=== PATIENT | male | born 1965 | race Caucasian/White ===

== ENCOUNTER 2020-01-13 10:32 | Emergency (ER) | payer OTHER, SELFPAY ==
--- NOTE | ~2020-01-13 | XR_ITS ---
EXAMINATION: XR knee RT 3V DATE: 01/13/2020 11:15 INDICATION: Right knee pain. TECHNIQUE: 3 views of right knee were obtained. COMPARISON: None. FINDINGS: Bone alignment is normal. No fracture. There is mild tricompartmental osteoarthritis. There is a small knee joint effusion. IMPRESSION: 1. Mild right knee osteoarthritis. 2. Small right knee joint effusion. Reviewed, dictated and finalized at location E.
[2020-01-13 10:46] VITALS: BP 131/67; PULSE 67; RESP 18; TEMP 36.7; O2SAT 99
--- NOTE | 2020-01-13 11:00 | ED.GENADULT ---
HPI - General Adult General Chief complaint: Extremity Injury, Lower Stated complaint: right knee pain Time Seen by Provider: 01/13/20 11:00 Source: patient Mode of arrival: ambulatory Limitations: no limitations History of Present Illness HPI narrative: 54-year-old male patient presents to the [facility] with complaints of right knee and calf pain. Patient states about 2 weeks ago he has been started to lay some laminate trice and is been on his knees a lot. Patient states he thought that he might have just bruised his knee a little bit. Patient states he has taken ibuprofen every once in a while. Patient states he has tried putting some ice on it. Patient states that he feels like the pain is getting worse especially in his calf when he walks. Patient states he has noticed some swelling. Patient does have a history of A. fib, high blood pressure and diabetes. Related Data Home Medications Medication Instructions Recorded Confirmed B Complex 01/13/20 Fish Oil 01/13/20 Joint Health 01/13/20 aspirin 01/13/20 diltiazem HCl PO 01/13/20 eszopiclone mg 01/13/20 [id number] INHALATION 01/13/20 [Trelegy Ellipta] magnesium 01/13/20 melatonin 01/13/20 multivitamin 01/13/20 Allergies Allergy/AdvReac Type Severity Reaction Status Date / Time No Known Allergies Allergy Verified 07/06/17 09:40 Review of Systems Review of Systems: Narrative: CONSTITUTIONAL: Denies fever, chills, or sweats. EYES: Denies visual changes, redness, or discharge. ENT: Denies rhinorrhea, congestion, sore throat, or otalgia. CARDIOVASCULAR: Denies chest pain, palpitations, or edema. RESPIRATORY: Denies cough or dyspnea. GASTROINTESTINAL: Denies abdominal pain, nausea, vomiting, or diarrhea. GENITOURINARY: Denies dysuria or hematuria. SKIN: Denies rash or itching. MUSCULOSKELETAL: Denies back pain, joint pain, or myalgia. Positive right knee pain and calf pain x2 weeks NEUROLOGIC: Denies headache, numbness, or weakness. PSYCHIATRIC: Denies anxiety or depression. COUNTS INCLUDE 234 BEDS AT THE [facility] Past Medical History Medical History Alcohol abuse Benign essential HTN Chronic insomnia Major depressive disorder, recurrent severe without psychotic features Obstructive sleep apnea Prediabetes Restless legs syndrome Tobacco dependence Family History Family History Mother Family history of type 2 diabetes mellitus Patient's mother is Sibling Hypertension Other Cerebrovascular accident Family history of malignant neoplasm Social History Social History Social History: Smoking status: Light tobacco smoker Tobacco type: cigarettes Smoking end date: 08/03/14 Alcohol intake: never Substance use: former Substance use type: former substance user Gender identity (if verbalized by the patient): Male Comments At the time of my signature I agree with nursing past medical history, surgical, social, and family history. There is no relevant family history pertinent to the presenting complaint. Exam Narrative: Exam Narrative: GENERAL: Well-appearing, well-nourished, and in no acute distress. HEAD: Normocephalic, atraumatic. EYES: PERRLA and EOMI. ENT: Nares clear, no rhinorrhea or epistaxis. Mucous membranes moist. NECK: Supple. No lymphadenopathy CHEST: Clear to auscultation. No respiratory distress. HEART: Regular rate and rhythm. No murmur heard. Normal peripheral pulses. ABDOMEN: Soft, nontender, nondistended, normal active bowel sounds. EXTREMITIES: Patient is able to bear weight and ambulate has intermittent pain to the right knee and calf. No surface trauma, STS, or obvious effusion. There is some swelling noted to the right calf area and very slight swelling to the right knee noted as compared to the left. There is a
== END 2020-01-13 12:17 | disposition short-term general hospital (02) ==
PROVIDERS: Emergency Provider Nurse Practitioner Family; PCP Family Medicine
DX: M25.461 Effusion, right knee (principal); M79.661 Pain in right lower leg; I10 Essential (primary) hypertension; F17.210 Nicotine dependence, cigarettes, uncomplicated
CPT/HCPCS: 73562; 99213; G0463

== ENCOUNTER 2020-01-13 12:45 | Emergency (ER) | payer OTHER, SELFPAY ==
--- NOTE | ~2020-01-13 | US_ITS ---
EXAMINATION: US venous doppler LE RT DATE: 01/13/2020 13:31 INDICATION: Right calf pain and swelling. TECHNIQUE: Grayscale ultrasound images without and with compression and Doppler ultrasound images of the right lower extremity veins were obtained. COMPARISON: None. FINDINGS: The visualized portions of right common femoral vein, profunda (deep) femoral vein, femoral vein, pop liteal vein, peroneal veins, posterior tibial veins, and greater saphenous vein outflow are patent. IMPRESSION: 1. No deep venous thrombosis. Reviewed, dictated and finalized at location E.
[2020-01-13 12:51] VITALS: BP 153/70; PULSE 81; RESP 20; TEMP 37.3; O2SAT 98
--- NOTE | 2020-01-13 14:25 | ED.EXTPRO ---
HPI - Extremity Problem General Chief complaint: Extremity Problem,Nontraumatic Stated complaint: rt calf pain/sent from urgent care Time Seen by Provider: 01/13/20 13:07 Source: patient Mode of arrival: ambulatory Limitations: no limitations History of Present Illness HPI Narrative: This patient is a 54 year old male who presents for evaluation of right calf pain. Patient states 1 week ago he felt a twing in his right knee and then he developed tenderness to right calf. He has been applying alternating ICe and heat and he states he continues to have the pain. He denies history of DVT. He denies swelling, left swelling weakness, numbness or tingling. He was sent from Urgent care for evaluation to rule out DVT. Related Data Home Medications Medication Instructions Recorded Confirmed B Complex 01/13/20 Fish Oil 01/13/20 Joint Health 01/13/20 aspirin 01/13/20 diltiazem HCl PO 01/13/20 eszopiclone mg 01/13/20 [id number] INHALATION 01/13/20 [Trelegy Ellipta] magnesium 01/13/20 melatonin 01/13/20 multivitamin 01/13/20 Allergies Allergy/AdvReac Type Severity Reaction Status Date / Time No Known Allergies Allergy Verified 01/13/20 13:04 Review of Systems Review of Systems: All systems reviewed & are unremarkable except as noted in HPI and below Constitutional: Constitutional: Denies chills and Denies fever(s) Cardiovascular: Cardiovascular: Denies chest pain and Denies rapid heart rate Respiratory: Respiratory: Denies dyspnea Neurologic: Reports focal weakness, Reports numbness and Reports weakness [facility] Social History Social History Social History: Smoking status: Light tobacco smoker Tobacco type: cigarettes Smoking end date: 08/03/14 Alcohol intake: never Substance use: former Substance use type: former substance user Gender identity (if verbalized by the patient): Male Exam Const: General: no acute distress and alert Orientation/consciousness: patient oriented x3 Neck: Neck: no lymphadenopathy Resp: Effort & Inspection: normal respiratory effort Skin: General skin exam: normal color Rashes: no rashes Neuro: General: patient oriented x3 and moves all extremities Extrem: General: no pedal edema Other: right calf tenderness, no swelling, no erythema, able to ambulate with steady gait. FROM to joints of lower extremity Course Vital Signs Vital signs: Vital Signs Temperature 99.1 F 01/13/20 12:51 Pulse Rate 81 01/13/20 12:51 Respiratory Rate 20 01/13/20 12:51 Blood Pressure 153/70 H 01/13/20 12:51 Pulse Oximetry 98 01/13/20 12:51 Temperature 99.1 F 01/13/20 12:51 Pulse Rate 62 01/13/20 15:03 Respiratory Rate 18 01/13/20 15:03 Blood Pressure 114/68 01/13/20 15:03 Pulse Oximetry 98 01/13/20 15:03 MDM - Extremity (Nontraumatic) Imaging Data Radiologist's impression: ITS Impressions Venous Doppler Study 01/13/20 13:53 IMPRESSION: 1. No deep venous thrombosis. Discharge Plan Discharge Clinical Impression: Pain of right calf Patient Disposition: Home, Self-Care Condition: Stable Instructions: Antibiotic Form, Leg Pain (ED) Additional Instructions: Take NSAIDs like aleve for your pain. Follow up with your primary care physician. Prescriptions: No Action eszopiclone 2 mg tablet RF: 0 Trelegy Ellipta 100-62.5-25 mcg blister with device INHALATION RF: 0 B Complex RF: 0 diltiazem HCl 240 mg capsule,extended release 24hr PO RF: 0 Joint Health RF: 0 aspirin RF: 0 magnesium RF: 0 multivitamin RF: 0 Fish Oil RF: 0 melatonin RF: 0 ipratropium bromide 42 mcg (0.06 %) spray,non-aerosol 2 spray NASAL TID Qty: 15 RF: 5 metformin 500 mg tablet extended release 24 hr
--- NOTE | 2020-01-13 14:52 | PC.NURSE ---
pacing around room, NAD
[2020-01-13 15:03] VITALS: BP 114/68; PULSE 62; RESP 18; O2SAT 98
== END 2020-01-13 15:06 | disposition home or self-care (01) ==
PROVIDERS: Emergency Provider General Practice; PCP Family Medicine
DX: M79.661 Pain in right lower leg (principal); F17.210 Nicotine dependence, cigarettes, uncomplicated
CPT/HCPCS: 93971; 99284

== ENCOUNTER 2020-07-14 08:59 | Outpatient (CLI) | payer OTHER, SELFPAY ==
[2020-07-14 09:14] LABS: Basophils Percent Auto 0.5 % (0.2-1.2); Eosinophils Absolute Auto 0.1 K/mm3 (0-0.3); Eosinophils Percent Auto 1.2 % (0-4.4); Hemoglobin 15.9 g/dL (14.0-18.0); Immature Granulocyte Absolute 0.08 K/mm3 (0.00-0.031); Immature Platelet Fraction Pct 3.7 % (0.9-11.2); Lymphocytes Absolute Auto 2.33 K/mm3 (0.9-3.2); Lymphocytes Percent Auto 28.3 % (18.3-44.2); Mean Corpuscular HGB Conc 35.3 g/dl (32-36); Mean Corpuscular Hemoglobin 32.9 pg (26-34); Mean Platelet Volume 10.2 fl (7.4-10.4); Monocytes Absolute Auto 0.5 K/mm3 (0.1-0.6); Monocytes Percent Auto 6.4 % (2.6-8.5); Neutrophils Absolute Auto 5.1 K/mm3 (1.3-6.7); Neutrophils Percent Auto 62.6 % (45.5-73.1); Platelet Count Result 132 k/mm3 (150-375); Red Blood Count 4.84 M/mm3 (4.6-6.20); Red Cell Distribution Width 13.3 % (11.5-14.5); White Blood Count 8.2 K/mm3 (4.5-10.0)
[2020-07-14 09:25] LABS: Hemoglobin A1C 5.1 % (<5.7)
[2020-07-14 09:27] LABS: Alanine Aminotransferase 157 U/L (4-50); Albumin Level 4.3 g/dL (3.5-5.1); Alkaline Phosphatase 71 U/L (38-126); Anion Gap 10 mmol/L (8-16); Aspartate Amino Transferase 114 U/L (17-59); Bilirubin,Total 1.2 mg/dL (0.2-1.3); Blood Urea Nitrogen 12 mg/dL (9-20); Carbon Dioxide 24 mmol/L (22-30); Chloride 105 mmol/L (98-107); Cholesterol 252 mg/dL (0-200); Estimated Glomerular Filt Rate > 60; Glucose 153 mg/dL (75-110); HDL Direct 55 mg/dL; Potassium 3.8 mmol/L (3.4-5.0); Sodium 139 mmol/L (137-145); Triglycerides 300 mg/dL (<150); Uric Acid 8.4 mg/dL (3.5-8.5)
[2020-07-14 09:38] LABS: LDL Cholesterol Direct 164 mg/dL
== END 2020-07-14 09:00 | disposition home or self-care (01) ==
PROVIDERS: PCP Family Medicine; Visit Provider Physician Assistant
DX: R73.03 Prediabetes (principal); Z13.220 Encounter for screening for lipoid disorders
CPT/HCPCS: 36415; 80053; 80061; 83036; 84550; 85025; 85055

== ENCOUNTER 2020-08-01 10:05 | Emergency (ER) | payer OTHER, SELFPAY ==
--- NOTE | ~2020-08-01 | XR_ITS ---
EXAMINATION: XR foot RT min 3V DATE: 08/01/2020 10:33 INDICATION: Posttraumatic pain at the lateral right forefoot TECHNIQUE: Dorsoplantar, two oblique and lateral views of the right foot were obtained. COMPARISON: None. FINDINGS: Alignment is normal. No fracture. Minimal to mild polyarticular osteoarthritis at the first metatarso phalangeal and multiple interphalangeal joints. Soft tissues are unremarkable. IMPRESSION: 1. No acute osseous abnormality. Reviewed, dictated and finalized at location A. 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
[2020-08-01 10:16] VITALS: BP 154/90; PULSE 91; RESP 20; TEMP 37; O2SAT 100
--- NOTE | 2020-08-01 10:24 | ED.LOWEXIN ---
HPI - Extremity Injury (Lower) General Chief Complaint: Extremity Injury, Lower Stated Complaint: R/foot pain Time Seen by Provider: 08/01/20 10:21 Source: patient and RN notes reviewed Mode of arrival: ambulatory Limitations: no limitations History of Present Illness HPI Narrative: Patient presents today complaining of an injury to his right foot. Reports that he rolled his foot twice yesterday, both while walking down separate sets of stairs. He has been ambulatory since the injury. Currently rates his pain 5/10 and has been taking Tylenol and Aleve with mild relief. Denies numbness or tingling in the leg or foot. Denies ankle pain. MD complaint: foot injury Related Data Home Medications Medication Instructions Recorded Confirmed aspirin 01/13/20 07/19/20 bupropion HCl 300 mg 24 hr tablet, 300 mg PO QAM 07/19/20 07/19/20 extended release eszopiclone 3 mg tablet 3 mg PO ONCE 07/19/20 07/19/20 metoprolol tartrate 50 mg PO DAILY 08/01/20 08/01/20 Allergies Allergy/AdvReac Type Severity Reaction Status Date / Time No Known Allergies Allergy Verified 08/01/20 10:22 Review of Systems Review of Systems: Narrative: CONSTITUTIONAL: Denies body aches, fever, chills, or sweats. EYES: Denies visual changes, redness, or discharge. ENT: Denies rhinorrhea, congestion, sore throat, or otalgia. CARDIOVASCULAR: Denies chest pain, palpitations, or edema. RESPIRATORY: Denies cough or dyspnea. GASTROINTESTINAL: Denies abdominal pain, nausea, vomiting, or diarrhea. GENITOURINARY: Denies dysuria or hematuria. SKIN: Denies rash, itching, or wounds. MUSCULOSKELETAL: Denies back pain, or myalgia. + Right foot injury NEUROLOGIC: Denies headache, numbness, tingling, or weakness. PSYCH: Denies depression or anxiety. [facility] Past Medical History Medical History (Updated 08/01/20 @ 10:44 by Brittney Cruz, NIKOS, ) Alcohol abuse Benign essential HTN Bipolar disorder with current episode depressed Chronic insomnia Major depressive disorder, recurrent severe without psychotic features Obstructive sleep apnea Prediabetes Restless legs syndrome Tobacco dependence Family History Family History Mother Family history of type 2 diabetes mellitus Patient's mother is Sibling Hypertension Other Cerebrovascular accident Family history of malignant neoplasm Social History Social History (Updated 07/19/20 @ 16:33 by Coby Navarro [facility]) Social History: Smoking packs per day: 0.25 Smoking cigarettes per day: 5.0 Smoking status: Light tobacco smoker Tobacco type: cigarettes Second hand tobacco smoke exposure: Yes Smoking end date: 08/03/14 Alcohol intake: never Substance use: former Substance use type: former substance user Gender identity (if verbalized by the patient): Male Comments At time of signature, I have reviewed and agree with nursing past medical, surgical, social and family history unless otherwise noted. Please see nursing chart for further information. There is no relevant family history pertinent to the presenting complaint Exam Narrative: Exam Narrative: GENERAL: Well-appearing, well-nourished, and in no acute distress. HEAD: Normocephalic, atraumatic. EYES: EOMI. No redness or drainage. Conjunctivae normal. ENT: Mucous membranes pink and moist. NECK: Normal AROM. CHEST: No respiratory distress. EXTREMITIES: Right foot: Tenderness and mild ecchymosis to the proximal fourth and fifth metatarsals with mild soft tissue swelling and tenderness to palpation. No other tenderness or swelling to the remainder of the foot. No tenderness to the ankle. Distal sensation intact. Capillary refill normal. Pedal pulse normal. Full range of motion of all toes. Full range of motion of the ankle with increased pain to the affected area with range of motion. All other extremities grossly normal. SKIN:
== END 2020-08-01 10:48 | disposition home or self-care (01) ==
PROVIDERS: Emergency Provider Nurse Practitioner; PCP Family Medicine
DX: S93.601A Unspecified sprain of right foot, initial encounter (principal); X50.9XXA Other and unspecified overexertion or strenuous movements or postures, initial encounter; F17.210 Nicotine dependence, cigarettes, uncomplicated; I10 Essential (primary) hypertension; F33.9 Major depressive disorder, recurrent, unspecified; G47.33 Obstructive sleep apnea (adult) (pediatric); G25.81 Restless legs syndrome
CPT/HCPCS: 73630; 99213; G0463

== ENCOUNTER 2020-11-12 21:51 | Emergency (ER) | payer OTHER, SELFPAY ==
--- NOTE | ~2020-11-12 | CT_ITS ---
EXAMINATION: CT brain wo con DATE: 11/12/2020 22:43 INDICATION: Left-sided numbness and tingling TECHNIQUE: Computed tomography (CT) of the head was performed without intravenous contrast. The mA wa s adjusted according to patient size. Iterative reconstruction technique was employed. Exam dose: 60 5.33 mGy-cm total exam DLP. COMPARISON: None FINDINGS: No intracranial mass lesion or hemorrhage or cerebrovascular accident. No midline shift or mass effect effect. Ventricular size is within normal range. There are bilateral carotid siphon internal carotid artery calcifications. No subdural or epidural hematoma. Included paranasal sinuses and mastoid air cells are normally developed and aerated. No fracture or bone destruction of the cranial vault. IMPRESSION: Cerebral atherosclerosis No acute intracranial finding; CT is not sensitive for detection of hyperacute ischemic cerebrovascul ar accident. Reviewed, dictated and finalized at Location A. Reviewed, dictated and finalized at location A. IMPRESSION: Cerebral atherosclerosis No acute intracranial finding; CT is not sensitive for detection of hyperacute ischemic cerebrovascular accident.
--- NOTE | ~2020-11-12 | XR_ITS ---
XR chest 1V DATE: 11/12/2020 22:47 INDICATION: Dizziness for one to 2 days. Left-sided numbness. History of hypertension. Former smoker. TECHNIQUE: PA view COMPARISON: 05/24/2019 PA and lateral chest FINDINGS: Normal heart size. No hilar or mediastinal enlargement. No pulmonary infiltrate or consolid ation, pleural effusion or pulmonary vascular congestion or pneumothorax. Included skeletal structures are unremarkable. IMPRESSION: No active cardiopulmonary disease Reviewed, dictated and finalized at location A.
[2020-11-12 21:53] VITALS: BP 146/90; PULSE 104; RESP 16; TEMP 36.2; O2SAT 98
--- NOTE | 2020-11-12 21:56 | ECG_ITS ---
Measurements Intervals [place] Rate: 111 P: 46 HI: 162 QRS: 21 QRSD: 107 T: 8 QT: 348 QTc: 474 Interpretive Statements SINUS TACHYCARDIA BORDERLINE R WAVE PROGRESSION, ANTERIOR LEADS BORDERLINE ST-T WAVE ABNORMALITY- INFERIOR LEADS ABNORMAL ECG Electronically Signed On 11-13-2020 8:03:28 CDT by Gilbert Hurley D.O.
[2020-11-12 22:19] LABS: Basophils Absolute Auto 0.1 K/mm3 (0.0-0.1); Basophils Percent Auto 0.7 % (0.2-1.2); Eosinophils Absolute Auto 0.2 K/mm3 (0-0.3); Eosinophils Percent Auto 1.9 % (0-4.4); Hematocrit 44.9 % (42.0-52.0); Hemoglobin 16.2 g/dL (14.0-18.0); Immature Granulocyte Absolute 0.13 K/mm3 (0.00-0.031); Immature Granulocyte Percent A 1.2 % (0-0.5); Lymphocytes Percent Auto 43.5 % (18.3-44.2); Mean Corpuscular HGB Conc 36.1 g/dl (32-36); Mean Corpuscular Hemoglobin 32.5 pg (26-34); Mean Corpuscular Volume 90.2 fl (80-100); Mean Platelet Volume 10.4 fl (7.4-10.4); Monocytes Absolute Auto 0.6 K/mm3 (0.1-0.6); Monocytes Percent Auto 5.1 % (2.6-8.5); Neutrophils Absolute Auto 5.3 K/mm3 (1.3-6.7); Neutrophils Percent Auto 47.6 % (45.5-73.1); Platelet Count Result 150 k/mm3 (150-375); Red Blood Count 4.98 M/mm3 (4.6-6.20); Red Cell Distribution Width 12.7 % (11.5-14.5)
[2020-11-12 22:28] LABS: INR 0.9; Partial Thromboplastin Time 24.4 SECONDS (22.3-36.8); Prothrombin Time 12.4 Seconds (11.1-14.7)
[2020-11-12 22:31] LABS: Anion Gap 9 mmol/L (8-16); Blood Urea Nitrogen 11 mg/dL (9-20); Calcium 9.3 mg/dL (8.4-10.2); Carbon Dioxide 24 mmol/L (22-30); Chloride 113 mmol/L (98-107); Estimated CRCL calculation 104 ml/min; Estimated Glomerular Filt Rate > 60; Glucose 123 mg/dL (75-110); Potassium 3.9 mmol/L (3.4-5.0); Sodium 146 mmol/L (137-145)
[2020-11-12 22:43] LABS: Troponin I < 0.012 ng/mL (0.000-0.034)
--- NOTE | 2020-11-12 23:14 | ED.GENADULT ---
HPI - General Adult General Chief complaint: Neuro Symptoms/Deficit Stated complaint: tingling L arm and leg Time Seen by Provider: 11/12/20 22:50 Source: patient History of Present Illness HPI narrative: Patient is a 55 y/o male complaining of left sided weakness, tingling and cramping on left side for last 4-5 days. There is no alleviating or exacerbating factor. He is able to move all 4 extremities and ambulate. He states that he has been diagnosed with restless leg syndrome in the past. Related Data Home Medications Medication Instructions Recorded Confirmed aspirin 81 mg PO DAILY 01/13/20 09/23/20 bupropion HCl 300 mg 24 hr tablet, 450 mg PO QAM 07/19/20 09/23/20 extended release metoprolol tartrate 50 mg PO DAILY 08/01/20 09/23/20 Allergies Allergy/AdvReac Type Severity Reaction Status Date / Time No Known Allergies Allergy Verified 09/21/20 14:03 Review of Systems Constitutional: Constitutional: Denies chills, Denies fever(s), Denies headache(s) and Denies weakness Eyes: Eyes: Denies blurry vision ENT: Denies headache(s) and Denies neck pain Cardiovascular: Cardiovascular: Denies chest pain and Denies dyspnea Respiratory: Respiratory: Denies cough and Denies dyspnea Gastrointestinal: Gastrointestinal: Denies abdominal pain, Denies diarrhea, Denies nausea and Denies vomiting Genitourinary: Genitourinary: Denies hematuria and Denies dysuria Musculoskeletal: Musculoskeletal: Denies back pain and Denies neck pain Neurologic: Denies headache(s), Reports paresthesias and Reports weakness [facility] Past Medical History Medical History Alcohol abuse Benign essential HTN Bipolar disorder with current episode depressed Chronic insomnia Major depressive disorder, recurrent severe without psychotic features Obstructive sleep apnea Prediabetes Restless legs syndrome Tobacco dependence Family History Family History Mother Family history of type 2 diabetes mellitus Patient's mother is Sibling Hypertension Other Cerebrovascular accident Family history of malignant neoplasm Social History Social History Social History: Smoking packs per day: 0.25 Smoking cigarettes per day: 5.0 Smoking status: Former smoker Tobacco type: cigarettes Second hand tobacco smoke exposure: Yes Smoking end date: 08/03/14 Alcohol intake: never Substance use: former Substance use type: former substance user Gender identity (if verbalized by the patient): Male Exam Const: General: no acute distress and well developed Orientation/consciousness: oriented to person, oriented to place, oriented to time and patient oriented x3 HENMT: Head: normocephalic Ears: external ears normal General nose exam: Normal external nose present Eyes: General: appearance normal, both eyes and all related structures Conjunctivae: conjunctivae normal Neck: Neck: normal visual inspection and full ROM Chest: Chest palpation & inspection: normal inspection of the chest and no tenderness Resp: Effort & Inspection: normal respiratory effort Auscultation: clear to auscultation bilaterally Cardio: Rate: regular rate Rhythm: regular rhythm GI: GI Palp: No abdominal tenderness and Yes Soft to palpation Skin: General skin exam: normal color and turgor normal Neuro: General: oriented to person, oriented to place, oriented to time and patient oriented x3 Cranial nerves: Yes CN's II-XII intact bilaterally Cognition (Neuro): normal cognition Speech: normal speech Motor exam (neuro): 5/5 motor strength present throughout Sensory Exam: normal sensation Coordination: [id number] test normal and [id number] test normal Extrem: General: normal to inspection, full ROM and no pedal edema Psych: Appearance: grossly normal Mental Statu
[2020-11-12 23:47] VITALS: BP 121/57; PULSE 80; RESP 16; TEMP 36.2; O2SAT 94
[2020-11-13 01:00] VITALS: BP 108/63; PULSE 76; RESP 16; TEMP 36.9; O2SAT 100
[2020-11-13 01:54] VITALS: BP 108/93; PULSE 80; RESP 20; O2SAT 98
--- NOTE | 2020-11-13 01:58 | PC.NURSE ---
Patient requesting to leave AMA. EDP Saul informed. IV access removed at this time.
--- NOTE | 2020-11-13 03:49 | PM.EVENT ---
Event Note Event Note Event Note: The patient signed himself out AMA as he was boarded in the emergency room and I did not have the opportunity to see the patient prior to him leaving AMA.
--- NOTE | 2020-11-13 15:07 | PCCCNOTE ---
Per Care Coordination, pt. left AMA before CC could complete assessment. No further need for CC services at this time.
== END 2020-11-13 01:59 | disposition left against medical advice (07) ==
PROVIDERS: Emergency Medicine; Emergency Provider Emergency Medicine; PCP Family Medicine
DX: R53.1 Weakness (principal); R20.2 Paresthesia of skin; I10 Essential (primary) hypertension; G47.33 Obstructive sleep apnea (adult) (pediatric); G25.81 Restless legs syndrome; F31.9 Bipolar disorder, unspecified; Z87.891 Personal history of nicotine dependence; R94.31 Abnormal electrocardiogram [ECG] [EKG]; R00.0 Tachycardia, unspecified
CPT/HCPCS: 36415; 70450; 71045; 80048; 84484; 85025; 85610; 85730; 93005; 99284

== ENCOUNTER → 2021-02-20 18:21 | Outpatient (CLI) | payer OTHER, SELFPAY ==
--- NOTE | ~2021-02-20 | XR_ITS ---
EXAMINATION: XR_[id number]_CR EXAM DATE: 02/20/2021 19:15 INDICATION: Neck pain, stiffness. Occasional numbness and tingling in arms and hands. TECHNIQUE: Cervical spine frontal, lateral, lateral swimmers, and open-mouth odontoid projections. Submentovertex projection. There are no prior studies for comparison. FINDINGS: There is moderate disc disease at C5-6. Mild loss of the C3-4 and 4-5 disc height. The sasha tebral bodies are aligned in the AP dimension. There are no acute fractures identified. The odontoid process is intact. The lateral masses of C1 line up with C2. There could be moderate neural foramina l stenosis at C5-6 due to uncovertebral joint arthropathy. Less uncovertebral joint arthropathy at th e other levels. Probable mild to moderate cervical arthropathy. IMPRESSION: Moderate C5-6 spondylosis, less at other cervical levels. Reviewed, dictated and finalized at location .
== END ==
PROVIDERS: PCP Family Medicine; Visit Provider Physician Assistant
DX: M47.892 Other spondylosis, cervical region (principal)
CPT/HCPCS: 72040

== ENCOUNTER 2021-08-12 10:31 | Emergency (ER) | payer OTHER, SELFPAY ==
[2021-08-12 11:05] VITALS: BP 131/79; PULSE 69; RESP 16; TEMP 36.8; O2SAT 98
--- NOTE | 2021-08-12 11:29 | ED.GENADULT ---
HPI - General Adult General Chief complaint: Upper Respiratory Infection Stated complaint: Sinus,Cough Source: patient Mode of arrival: ambulatory Limitations: no limitations History of Present Illness HPI narrative: 55 y/o male. PMHx HTN. Presents to the [facility] today with acute complaints of 'sinus infection'. He notes to have had worsening maxillary facial pressure, nasal congestion, PND, as well as bilateral ear 'pressure' for the past 1 week. No fevers. No JUAREZ, sore throat. No cough, chest congestion, dyspnea. Client notes to have been utilizing home remedies w/o relief. Expresses no known ill contacts or viral Covid 19 concerns. No additional acute c/o illness upon PE. Related Data Home Medications Medication Instructions Recorded Confirmed aspirin 81 mg PO DAILY 01/13/20 08/12/21 bupropion HCl 300 mg 24 hr tablet, 450 mg PO QAM 07/19/20 08/12/21 extended release Allergies Allergy/AdvReac Type Severity Reaction Status Date / Time No Known Allergies Allergy Verified 08/12/21 11:34 Review of Systems Review of Systems: CONSTITUTIONAL: Denies fever, chills, sweats. EYES: Denies visual changes, redness, discharge. ENT: Positive rhinorrhea, congestion. No sore throat, otalgia. CARDIOVASCULAR: Denies chest pain, palpitations, edema. RESPIRATORY: Denies dyspnea, wheezing, cough GASTROINTESTINAL: Denies abdominal pain, nausea, vomiting, diarrhea. GENITOURINARY: Denies dysuria, hematuria, abnormal discharge SKIN: Denies rash or itching. MUSCULOSKELETAL: Denies acute back pain, joint pain, or myalgia. NEUROLOGIC: Denies numbness, or focal weakness. PSYCHIATRIC: Denies anxiety or depression. All systems reviewed & are unremarkable except as noted in HPI and below [facility] Past Medical History Medical History Alcohol abuse Benign essential HTN Bipolar disorder with current episode depressed Chronic insomnia Major depressive disorder, recurrent severe without psychotic features Obstructive sleep apnea Prediabetes Restless legs syndrome Tobacco dependence Family History Family History Mother Family history of type 2 diabetes mellitus Patient's mother is Sibling Hypertension Other Cerebrovascular accident Family history of malignant neoplasm Social History Social History Social History: Years smoked: 30 Smoking status: Current every day smoker Tobacco type: cigarettes Second hand tobacco smoke exposure: Yes Smoking end date: 08/03/14 Additional smoking assessment comments: Pt went back to smoking. Alcohol intake: never Substance use: former Substance use type: former substance user Gender identity (if verbalized by the patient): Male Sexual Orientation (if Verbalized by the Patient): Straight or Heterosexual Exam Narrative: GENERAL: This is a well-nourished, well-developed adult, in no apparent distress. HEAD: normocephalic, atraumatic. EYES: PERRL. Sclera clear/white. EARS: External ears normal, auditory canals clear and without drainage, TMs normal. NOSE: External nose normal. Positive Rhinorrhea, PND. No obstruction, nares patent. THROAT: Mucous membranes moist, posterior pharynx erythematous. No exudates. NECK: Neck supple, non-tender without lymphadenopathy, masses or thyromegaly. CARDIOVASCULAR: Regular rate and rhythm without murmurs, gallops, or rubs. RESPIRATORY: Clear to auscultation. Breath sounds equal bilaterally. No wheezes, rales, or rhonchi. GASTROINTESTINAL: Abdomen soft, non-tender, nondistended. Bowel sounds are active. No guarding. SKIN: warm, intact with no suspicious lesions or rash, good texture and turgor. NEURO: Alert, active, and age appropriate. No focal neurologic deficits. EXTREMITIES: Negative. Course Course Lev
== END 2021-08-12 11:32 | disposition home or self-care (01) ==
PROVIDERS: Emergency Provider Nurse Practitioner Adult Health; PCP Family Medicine
DX: J06.9 Acute upper respiratory infection, unspecified (principal); J01.00 Acute maxillary sinusitis, unspecified; F17.200 Nicotine dependence, unspecified, uncomplicated; I10 Essential (primary) hypertension; G47.33 Obstructive sleep apnea (adult) (pediatric); R73.03 Prediabetes; G25.81 Restless legs syndrome; F33.9 Major depressive disorder, recurrent, unspecified; Z79.82 Long term (current) use of aspirin
CPT/HCPCS: 99213; G0463

== ENCOUNTER → 2021-10-11 15:11 | Outpatient (CLI) | payer OTHER, SELFPAY ==
--- NOTE | ~2021-10-11 | XR_ITS ---
EXAMINATION: XR chest 2V EXAM DATE: 10/11/2021 15:24 INDICATION: U09.9 - Post COVID-19 condition, unspecified TECHNIQUE: Frontal and lateral projections of the chest obtained and reviewed. Comparison is made to prior examination from 11/12/2020. FINDINGS: The lungs are clear. There are no pleural effusions. The cardiomediastinal silhouette is within normal limits. There is no pneumothorax suspected. The bones and soft tissues are unremarkab le. IMPRESSION: No acute cardiopulmonary findings. Reviewed, dictated and finalized at location A. ER HAND
== END ==
PROVIDERS: PCP Family Medicine; Visit Provider Family Medicine
DX: U09.9 Post COVID-19 condition, unspecified (principal)
CPT/HCPCS: 71046

== ENCOUNTER 2021-10-12 09:50 | Outpatient (CLI) | payer OTHER, SELFPAY ==
[2021-10-12 10:15] LABS: Alanine Aminotransferase 52 U/L (4-50); Alkaline Phosphatase 78 U/L (38-126); Anion Gap 8 mmol/L (8-16); Aspartate Amino Transferase 32 U/L (17-59); Bilirubin,Total 0.4 mg/dL (0.2-1.3); Blood Urea Nitrogen 7 mg/dL (9-20); Calcium 8.5 mg/dL (8.4-10.2); Carbon Dioxide 25 mmol/L (22-30); Chloride 104 mmol/L (98-107); Estimated Glomerular Filt Rate > 60; Glucose 324 mg/dL (65-110); Sodium 137 mmol/L (137-145)
[2021-10-12 10:29] LABS: Hemoglobin A1C 7.1 % (<5.7)
== END 2021-10-12 09:51 | disposition home or self-care (01) ==
LOC: ANHLAB 09:51
PROVIDERS: PCP Family Medicine; Visit Provider Family Medicine
DX: R73.03 Prediabetes (principal); B37.81 Candidal esophagitis
CPT/HCPCS: 36415; 80053; 83036

== ENCOUNTER 2021-11-22 16:38 | Emergency (ER) | payer OTHER, SELFPAY ==
[2021-11-22 16:53] VITALS: BP 136/80; PULSE 100; RESP 20; TEMP 36.7; O2SAT 98
--- NOTE | 2021-11-22 17:18 | ED.URI ---
HPI - URI/Sore Throat General Chief Complaint: Upper Respiratory Infection Stated Complaint: Chills,Nausea,Shortness of Breath, Rt Shoulder Time Seen by Provider: 11/22/21 17:10 Source: patient Mode of arrival: ambulatory Limitations: no limitations History of Present Illness HPI Narrative: Wyatt Madden is a 56-year-old male with a prior medical history of depression, A. fib, high blood pressure, alcohol a and substance abuse, restless leg syndrome, comes to [facility] with complaints of chills nausea some shortness of breath and right shoulder pain most of these been going on since Thursday and varying degrees; he sees a preventative maintenance technician for heart palpitations and has been taking diltiazem Review of the records patient is a known COVID long-haul her, has spondylosis and has been complaining of shoulder pain, has moderate diastolic failure and is in prep for surgery and had JAVIER done at the beginning of last month, primary care doctor documented patient had continued to have shortness of breath on exertion Related Data Home Medications Medication Instructions Recorded Confirmed aspirin 81 mg PO DAILY 01/13/20 10/11/21 bupropion HCl 300 mg 24 hr tablet, 450 mg PO QAM 07/19/20 10/11/21 extended release Allergies Allergy/AdvReac Type Severity Reaction Status Date / Time No Known Allergies Allergy Verified 11/22/21 17:01 Review of Systems Review of Systems: CONSTITUTIONAL: Denies fever, chills, sweats. Headache and chills EYES: Denies visual changes, redness, discharge. ENT: Denies rhinorrhea, congestion, sore throat, otalgia. CARDIOVASCULAR: Denies chest pain, palpitations, edema. RESPIRATORY: Denies dyspnea, wheezing, cough-some shortness of breath GASTROINTESTINAL: Denies abdominal pain, nausea, vomiting, diarrhea. GENITOURINARY: Denies dysuria, hematuria, abnormal discharge SKIN: Denies rash or itching. NEUROLOGIC: Denies numbness, or focal weakness. PSYCHIATRIC: Denies anxiety or depression. Right shoulder pain PMFSH Past Medical History Medical History Alcohol abuse Benign essential HTN Bipolar disorder with current episode depressed Chronic insomnia Heart palpitations Major depressive disorder, recurrent severe without psychotic features Obstructive sleep apnea Prediabetes Restless legs syndrome Tobacco dependence Family History Family History Mother Family history of type 2 diabetes mellitus Patient's mother is Sibling Hypertension Other Cerebrovascular accident Family history of malignant neoplasm Social History Social History (Updated 11/22/21 @ 17:24 by Isatu Kaplan CNP) Social History: Years smoked: 30 Smoking status: Current every day smoker Tobacco type: cigarettes Second hand tobacco smoke exposure: Yes Smoking end date: 08/03/14 Additional smoking assessment comments: Pt went back to smoking. Alcohol intake: never Substance use: former Substance use type: former substance user Living arrangements: with family Gender identity (if verbalized by the patient): Male Sexual Orientation (if Verbalized by the Patient): Straight or Heterosexual Exam Narrative: GENERAL: This is a well-nourished, well-developed patient, in moderate distress. HEAD: normocephalic, atraumatic. EYES: Sclera clear/white. Vision is grossly intact. EARS: External ears normal, auditory canals clear and without drainage, TMs normal without perforation. Hearing grossly intact. NOSE: External nose normal without nasal discharge, nares without redness, no rhinorrhea. THROAT: Mucous membranes moist, NECK: Neck supple, non-tender CARDIOVASCULAR: Tachycardic rate and rhythm without murmurs, gallops, or rubs. RESPIRATORY: Clear to auscultation. Breath sounds equal bilaterally. No wheezes, rales, or rhonchi. GASTROINTESTINAL: Abdomen soft, non-tender,
--- NOTE | 2021-11-22 17:31 | ECG_ITS ---
Measurements Intervals [place] Rate: 99 P: 53 KS: 164 QRS: 47 QRSD: 105 T: 38 QT: 351 QTc: 452 Interpretive Statements SINUS RHYTHM WITHIN NORMAL LIMITS COMPARED TO ECG 11/12/2020 22:12:08 SLIGHTLY DIFFERENT PRECORDIAL LEAD POSITION OTHERWISE NOTED HER Electronically Signed On 11-23-2021 11:21:09 CDT by Case Cage M.D.
== END 2021-11-22 17:44 | disposition home or self-care (01) ==
PROVIDERS: Emergency Provider Nurse Practitioner; PCP Family Medicine
DX: B34.9 Viral infection, unspecified (principal); M25.511 Pain in right shoulder; F17.210 Nicotine dependence, cigarettes, uncomplicated; I10 Essential (primary) hypertension; G47.33 Obstructive sleep apnea (adult) (pediatric); R73.03 Prediabetes; G25.81 Restless legs syndrome; Z79.82 Long term (current) use of aspirin; F31.5 Bipolar disorder, current episode depressed, severe, with psychotic features
CPT/HCPCS: 87804; 93005; 99213; G0463

== ENCOUNTER → 2021-11-30 10:11 | Outpatient (CLI) | payer OTHER, SELFPAY ==
--- NOTE | ~2021-11-30 | XR_ITS ---
XR shoulder RT min 2V DATE: 11/30/2021 10:56 INDICATION: Shoulder lesion TECHNIQUE: 4 views COMPARISON: None FINDINGS: Normal alignment at acromioclavicular and glenohumeral joints. No fracture or dislocation, periosteal reaction or bone destruction or abnormal soft tissue calcifica tion. IMPRESSION: No significant abnormality Reviewed, dictated and finalized at location A. IMPRESSION: No significant abnormality
== END ==
PROVIDERS: PCP Family Medicine; Visit Provider Family Medicine
DX: M75.80 Other shoulder lesions, unspecified shoulder (principal)
CPT/HCPCS: 73030

== ENCOUNTER 2022-02-16 19:31 | Observation (INO) | payer OTHER, SELFPAY ==
--- NOTE | ~2022-02-16 | US_ITS ---
EXAMINATION: US carotid duplex BI DATE: 02/17/2022 13:04 INDICATION: Seizure TECHNIQUE: Grayscale, color Doppler, and pulsed Doppler images of the cervical carotid arteries were obtained. The degree of vessel stenosis is placed in one of the following categories: normal, <50%, 5 0-69%, >=70% but less than near-occlusion, near-occlusion, or total occlusion. Note that percent sten osis relative to normal distal artery lumen diameter is indirectly measured from velocity measurement s as described by Wilfredo, et al. Radiology 2003; 229:340-346. COMPARISON: None. FINDINGS: RIGHT: The right common carotid artery (CCA) peak systolic velocity (PSV) is 74 cm/s. The right internal car otid artery (ICA) PSV is 91 cm/s. The right ICA end-diastolic velocity (EDV) is 35 cm/s. The right IC A/CCA PSV ratio is 1.2. Grayscale and color Doppler images yield an estimate of <50% diameter reducti on from plaque in the ICA. The external carotid artery (ECA) PSV is 107 cm/s. There is antegrade flow in the right vertebral artery. LEFT: The left CCA PSV is 75 cm/s. The left ICA PSV is 67 cm/s. The left ICA EDV is 10 cm/s. The left ICA/C CA PSV ratio is 0.9. Grayscale and color Doppler images yield an estimate of <50% diameter reduction from plaque in the ICA. The ECA PSV is 71 cm/s. There is antegrade flow in the left vertebral artery. IMPRESSION: 1. <50% stenosis in the right internal carotid artery. 2. <50% stenosis in the left internal carotid artery. Reviewed, dictated and finalized at location A.
--- NOTE | ~2022-02-16 | XR_ITS ---
EXAMINATION: XR chest 1V Exam Date/Time: 02/16/2022 20:00 CDT HISTORY: cough,fall tonight HX HTN,PALPATATIONS,SMOKER Comparison: 10/11/2021. RESULT: Lines, tubes, and devices: None. Lungs and pleura: Clear. Cardiomediastinal silhouette: Stable cardiomediastinal silhouette. Other: No acute osseous or upper abdominal finding. IMPRESSION: No acute cardiopulmonary process. Reviewed, dictated and finalized at location K.
--- NOTE | ~2022-02-16 | MR_ITS ---
EXAMINATION: MR brain/brain stem wo con DATE: 02/17/2022 12:45 INDICATION: Seizure. TECHNIQUE: Magnetic resonance imaging (MRI) of the brain and brainstem was performed without intraven ous contrast. COMPARISON: Head CT 02/16/2022 FINDINGS: There is a left occipital subdural hematoma with maximum thickness of 3 mm. There is no acu te ischemic infarct or abnormal mass lesion. The ventricles are normal in size. There is mild mucosal thickening in right maxillary sinus. The orbits are normal. The mastoid air cells are normal. IMPRESSION: 1. Left occipital subdural hematoma with maximum thickness of 3 mm. Reviewed, dictated and finalized at location A.
--- NOTE | ~2022-02-16 | CT_ITS ---
EXAMINATION: CT brain wo con DATE: 02/16/2022 20:03 INDICATION: headache/ seizure . TECHNIQUE: Computed tomography (CT) of the head was performed without intravenous contrast. The mA wa s adjusted according to patient size. Iterative reconstruction technique was employed. The dose-lengt h product was 605.33 mGy-cm. COMPARISON: 11/12/2020 FINDINGS: No acute intracranial hemorrhage or extra-axial fluid collection. No hydrocephalus, mass, or herniation. No acute ischemic infarct. Unremarkable dural venous sinus attenuation. No acute osseous abnormality. The aerated spaces are clear. Atherosclerotic intracranial calcifications. IMPRESSION: No acute intracranial process. Reviewed, dictated and finalized at location K.
[2022-02-16 19:26] VITALS: BP 157/97; PULSE 128; RESP 24; TEMP 36.9; O2SAT 97
--- NOTE | 2022-02-16 19:43 | ECG_ITS ---
Measurements Intervals [place] Rate: 124 P: 201 MA: 226 QRS: 46 QRSD: 101 T: 43 QT: 340 QTc: 490 Interpretive Statements SINUS TACHYCARDIA DELAYED PRECORDIAL R/S TRANSITION BASELINE ARTIFACT- I, III, AVR, AVL, AVF, V1, V4 ABNORMAL ECG Electronically Signed On 02-17-2022 9:12:38 CDT by Gilbert Hurley D.O.
[2022-02-16 19:49] LABS: Glucose Point of Care 229 mg/dl (65-105)
--- NOTE | 2022-02-16 20:02 | ED.GENADULT ---
HPI - General Adult General Chief complaint: Seizure Stated complaint: seizure Time Seen by Provider: 02/16/22 19:37 History of Present Illness HPI narrative: Patient a 56-year-old gentleman who presents the emergency department with chief complaint possible seizure. Patient is states that all throughout the day he has been feeling strange with a knife states it does feel similar to whenever he had COVID previously apparently at home the patient had a generalized tonic-clonic seizure and afterwards was confused and combative the patient was given Versed by EMS and by the time he arrived to the emergency department patient states he feels better but not really sure what happened. Patient states he has this generalized malaise has a little bit of a headache patient denies focal neurological deficits denies nuchal rigidity. Related Data Home Medications Medication Instructions Recorded Confirmed aspirin 81 mg PO DAILY 01/13/20 12/08/21 bupropion HCl 300 mg 24 hr tablet, 450 mg PO QAM 07/19/20 12/08/21 extended release quetiapine 50 mg tablet,extended 50 mg PO BID 11/22/21 12/08/21 release 24 hr Allergies Allergy/AdvReac Type Severity Reaction Status Date / Time No Known Allergies Allergy Verified 11/29/21 13:23 Review of Systems Review of Systems: A 10 system review of systems was completed on the patient and is negative except for what is stated in the HPI. Nursing and ancillary documentation was reviewed. [facility] Past Medical History Medical History Alcohol abuse Benign essential HTN Bipolar disorder with current episode depressed Chronic insomnia Heart palpitations Major depressive disorder, recurrent severe without psychotic features Obstructive sleep apnea Prediabetes Restless legs syndrome Tobacco dependence Family History Family History Mother Family history of type 2 diabetes mellitus Patient's mother is Sibling Hypertension Other Cerebrovascular accident Family history of malignant neoplasm Social History Social History Social History: Smoking packs per day: 0.5 Smoking cigarettes per day: 10.0 Years smoked: 30 Smoking pack-years: 15.00 Smoking status: Current every day smoker Tobacco type: cigarettes Second hand tobacco smoke exposure: Yes Smoking end date: 08/03/14 Additional smoking assessment comments: Pt went back to smoking. Alcohol intake: current Alcohol use details: Rarely Substance use: former Substance use type: former substance user Gender identity (if verbalized by the patient): Male Sexual Orientation (if Verbalized by the Patient): Straight or Heterosexual Course Vital Signs Vital signs: Vital Signs Temperature 36.9 C 02/16/22 19:26 Pulse Rate 128 H 02/16/22 19:26 Respiratory Rate 24 H 02/16/22 19:26 Blood Pressure 157/97 H 02/16/22 19:26 Pulse Oximetry 97 02/16/22 19:26 Oxygen Delivery Room Air 02/16/22 19:26 Temperature 36.9 C 02/16/22 19:26 Pulse Rate 93 02/16/22 21:50 Respiratory Rate 18 02/16/22 21:50 Blood Pressure 140/73 02/16/22 21:50 Pulse Oximetry 95 02/16/22 21:50 Oxygen Delivery Room Air 02/16/22 19:26 Medical Decision Making Vital Signs Vital Signs: Vital Signs Temperature 36.9 C 02/16/22 19:26 Pulse Rate 128 H 02/16/22 19:26 Respiratory Rate 24 H 02/16/22 19:26 Blood Pressure 157/97 H 02/16/22 19:26 Pulse Oximetry 97 02/16/22 19:26 Oxygen Delivery Room Air 02/16/22 19:26 Temperature 36.9 C 02/16/22 19:26 Pulse Rate 93 02/16/22 21:50 Respiratory Rate 18 02/16/22 21:50 Blood Pressure 140/73 02/16/22 21:50 Pulse Oximetry 95 02/16/22 21:50 Oxygen Delivery Room Air 02/16/22 19:26 Lab Data Result diagrams: 0
[2022-02-16] MEDS: SODIUM CHLORIDE 0.9% IV 1,000 ML 999 ML IV CONT ×2 (20:18→21:46)
[2022-02-16 20:30] LABS: Basophils Absolute Auto 0.1 K/mm3 (0.0-0.1); Basophils Percent Auto 0.4 % (0.2-1.2); Eosinophils Absolute Auto 0.1 K/mm3 (0-0.3); Eosinophils Percent Auto 0.6 % (0-4.4); Hematocrit 44.3 % (42.0-52.0); Hemoglobin 15.8 g/dL (14.0-18.0); Immature Granulocyte Absolute 0.09 K/mm3 (0.00-0.031); Immature Granulocyte Percent A 0.6 % (0-0.5); Immature Platelet Fraction Pct 4.6 % (0.9-11.2); Lymphocytes Absolute Auto 1.66 K/mm3 (0.9-3.2); Mean Corpuscular HGB Conc 35.7 g/dl (32-36); Mean Corpuscular Hemoglobin 31.8 pg (26-34); Mean Corpuscular Volume 89.1 fl (80-100); Mean Platelet Volume 10.4 fl (7.4-10.4); Monocytes Absolute Auto 0.6 K/mm3 (0.1-0.6); Monocytes Percent Auto 4.4 % (2.6-8.5); Neutrophils Absolute Auto 11.4 K/mm3 (1.3-6.7); Platelet Count Result 128 k/mm3 (150-375); Red Blood Count 4.97 M/mm3 (4.6-6.20); Red Cell Distribution Width 12.9 % (11.5-14.5); White Blood Count 13.9 K/mm3 (4.5-10.0)
[2022-02-16 20:35] LABS: Ethanol < 10 mg/dL (<10)
[2022-02-16 20:36] LABS: Prothrombin Time 12.7 Seconds (11.1-14.7)
[2022-02-16 20:38] LABS: Lactic Acid Reflex 4.6 mmol/L (0.7-2.0)
[2022-02-16 20:38] LABS: Partial Thromboplastin Time 22.4 SECONDS (22.3-36.8)
[2022-02-16 20:39] LABS: Albumin Level 4.6 g/dL (3.5-5.1); Alkaline Phosphatase 75 U/L (38-126); Anion Gap 11 mmol/L (8-16); Aspartate Amino Transferase 54 U/L (17-59); Bilirubin,Total 1.7 mg/dL (0.2-1.3); Blood Urea Nitrogen 7 mg/dL (9-20); CRP 1.2 mg/dL (<1.0); Calcium 8.8 mg/dL (8.4-10.2); Carbon Dioxide 20 mmol/L (22-30); Chloride 106 mmol/L (98-107); Creatine Kinase 74 U/L (55-170); Estimated Glomerular Filt Rate > 60; Glucose 167 mg/dL (65-110); Lipase 31 U/L (23-300); Magnesium 1.9 mg/dL (1.6-2.3); Potassium 3.5 mmol/L (3.4-5.0); Sodium 137 mmol/L (137-145)
[2022-02-16 20:43] LABS: Alanine Aminotransferase 51 U/L (6-50)
[2022-02-16 20:49] LABS: NT Pro B Type Natriuretic Pept 211 pg/mL (5-100); Troponin I 0.042 ng/mL (0.000-0.034)
[2022-02-16 20:52] VITALS: BP 144/81; PULSE 104; RESP 17; O2SAT 97
[2022-02-16 21:05] VITALS: PULSE 98
[2022-02-16 21:06] LABS: Procalcitonin 0.1 ng/mL
[2022-02-16 21:10] LABS: Appearance Urine Clear (Clear); Bilirubin Urine Negative (Negative); Color Urine Yellow (Yellow); Glucose Urine UA Negative (Negative); Ketones Urine Negative (Negative); Leukocyte Esterase Ur Negative LEU/UL (Negative); Nitrate Urine Negative (Negative); Protein Urine 1+ mg/dL (Negative); Specific Grav Ur 1.025 (1.001-1.035)
[2022-02-16 21:14] LABS: Add Urine Microscopic? YES; Blood Urine Trace-Intact (Negative)
[2022-02-16 21:21] LABS: Bacteria Urine Trace /hpf; Mucus Urine Rare /lpf; RBC Urine 0-2 /hpf (0-2); WBC Urine 0-3 /hpf
[2022-02-16 21:42] LABS: Amphetamine Screen Urine Negative (Negative); Barbiturate Screen Urine Negative (Negative); Benzodiazepines Screen Urine Positive (Negative); Cannabinoid Screen Urine Positive (Negative); Cocaine Screen Urine Negative (Negative); Methadone Screen Urine Negative (Negative); Opiate Screen Urine Negative (Negative); Phencyclidine Screen Urine Negative (Negative)
[2022-02-16 21:50] VITALS: BP 140/73; PULSE 93; RESP 18; O2SAT 95
[2022-02-16 21:56] LABS: Influenza A QL RT-PCR Negative (Negative); Influenza B QL RT-PCR Negative (Negative); SARS-CoV-2 RNA PCR Negative
--- NOTE | 2022-02-16 22:44 | PM.IMHP ---
H&P: HPI History of Present Illness Date/Time: 02/16/22 22:44 Chief Complaint: Seizure Narrative: This is a 56-year-old male with past medical history significant for tobacco dependence, bipolar disorder, benign hypertension, restless leg syndrome, obstructive sleep apnea on CPAP at nighttime, alcohol dependence and relapse. Patient had a grand mal seizure witnessed by family members EMS arrived and patient was combative and his post ictal stage. Patient used to drink and went to rehabilitation a number of years ago and was sober for a while however patient has had relapse and has been drinking for quite some time now family is not aware of his relapse. Patient has no recollection of events. Denies any nausea, vomiting, arm abdominal pain, headache, vision changes, fevers, chills, cough, sputum production, no tremors, no gait difficulty. Preliminary workup was significant for urine toxicology significant for cannabis, troponin was slightly elevated, lactic acid 4.6, a CT of the head was negative for intracranial abnormality, a chest x-ray was clear. Patient is being admitted for further evaluation management and treatment. Review of Systems Review of Systems: Grand mal seizure witnessed by family members Constitutional: Constitutional: Denies body ache(s), Denies chills, Denies fatigue, Denies fever(s), Denies headache(s), Denies malaise, Denies night sweats and Denies weakness Eyes: Eyes: Denies change in vision ENT: Denies dysphagia, Denies vertigo, Denies dizziness, Denies nasal congestion, Denies nasal discharge, Denies nasal obstruction, Denies odynophagia and Denies disequilibrium Cardiovascular: Cardiovascular: Denies chest pain, Denies syncope, Denies irregular heart rhythm, Denies lightheadedness and Denies palpitations Respiratory: Respiratory: Denies chest congestion, Denies cough, Denies excessive phlegm production, Denies dyspnea and Denies wheezing Gastrointestinal: Gastrointestinal: Denies abdominal pain, Denies dyspepsia, Denies heartburn, Denies diarrhea, Denies nausea and Denies vomiting Genitourinary: Genitourinary: Denies dysuria Musculoskeletal: Musculoskeletal: Reports arthralgias (Right shoulder) Integumentary/Breasts: Skin/Breast: Denies rash Psychiatric: Psychiatric: Reports other (Alcohol intake relapse) Endocrine: Endocrine: Denies cold intolerance, Denies fatigue, Denies flushing, Denies heat intolerance, Denies polyphagia, Denies polydipsia and Denies palpitations Hematologic/Lymphatic: Hematologic/Lymphatic: Reports no additional hematologic/lymphatic complaints and Reports as per HPI Allergic/Immunologic: Allergic/Immunologic: Reports no additional allergic/immunologic complaints and Reports as per HPI PMFSH Past Medical History Medical History Alcohol abuse Benign essential HTN Bipolar disorder with current episode depressed Chronic insomnia Heart palpitations Major depressive disorder, recurrent severe without psychotic features Obstructive sleep apnea Prediabetes Restless legs syndrome Tobacco dependence Family History Family History Mother Family history of type 2 diabetes mellitus Patient's mother is Sibling Hypertension Other Cerebrovascular accident Family history of malignant neoplasm Social History Social History Social History: Smoking packs per day: 1 Smoking cigarettes per day: 20.0 Years smoked: 30 Smoking pack-years: 30.00 Smoking status: Current every day smoker Tobacco type: cigarettes Second hand tobacco smoke exposure: Yes Smoking end date: 08/03/14 Additional smoking assessment comments: Pt went back to smoking. Alcohol intake: current Alcohol use details: Rarely Substance use: never Substance use type: former substance
[2022-02-16] MEDS: levETIRAcetam 1000MG/NACL100ML 1,000 MG/100 ML BAG 400 MG IVPB (23:09)
[2022-02-16 23:13] VITALS: BP 139/97; PULSE 96; RESP 16; O2SAT 99
[2022-02-16 23:17] LABS: Lactic Acid Reflex 1.1 mmol/L (0.7-2.0)
[2022-02-16 23:22] LABS: Reflex Lactic Acid Yes or No Add Lactic
[2022-02-16 23:32] LABS: Troponin I 0.261 ng/mL (0.000-0.034)
[2022-02-17] VITALS (18 sets, daily range): BP systolic 124–155; BP diastolic 64–89; PULSE 72–90; RESP 16–20; TEMP 36.1–37.3; O2SAT 95–100; BMI 32.3
--- NOTE | 2022-02-17 | ECHO_ITS ---
Patient Info Name: Wyatt Madden Age: 56 years : 1965 Gender: Male Ht: 72 in Wt: 234 lbs BSA: 2.35 m2 HR: 84 bpm BP: 124 / 77 mmHg Heart Rhythm: Sinus Rhythm Technical Quality: Fair Exam Date: 02/17/2022 7:55 AM Exam Location: [facility] Patient Status: Outpatient Admit Date: 02/16/2022 Staff Ordering Physician: Kevin Delacruz MD Java Designer: Kayla Banuelos RDCS Attending Provider: Kevin Delacruz MD Referring Physician: Jayme MALDONADO; Exam Type: CA echo doppler color flow Study Info Indications - Seizure Complete two-dimensional, color flow and Doppler transthoracic echocardiogram is performed. Summary 1. Complete two-dimensional, color flow and Doppler transthoracic echocardiogram is performed. 2. Left ventricular chamber dimension is normal. 3. Left ventricular systolic function is normal, estimated at 60-65%. 4. Right ventricular chamber dimension is normal. 5. Left atrial chamber dimension is mildly enlarged. 6. There is mild aortic valve stenosis with a peak velocity of 262 cm/s, mean gradient of 17 mmHg, and aortic valve area of 1.4 cm2. Left Ventricle Left ventricular chamber dimension is normal. Left ventricular systolic function is normal, estimated at 60-65%. The left ventricular diastolic function is grade I diastolic dysfunction. Right Ventricle Right ventricular chamber dimension is normal. Left Atria Left atrial chamber dimension is mildly enlarged. Right Atria Right atrial chamber dimension is normal. Aortic Valve The aortic valve is trileaflet. There is mild aortic valve sclerosis. There is mild aortic valve stenosis with a peak velocity of 262 cm/s, mean gradient of 17 mmHg, and aortic valve area of 1.4 cm2. Pulmonic Valve The pulmonic valve is normal. Mitral Valve The mitral valve has normal leaflets. Tricuspid Valve The tricuspid valve leaflets are normal. Pericardium/Pleural The pericardium appears normal. Aorta The aortic root size at the sinus of Valsalva is normal. Left Ventricular Outflow Tract Name Value Normal LVOT 2D LVOT Diameter 2.0 cm LVOT Doppler LVOT Peak Gradient 5 mmHg LVOT Mean Gradient 3 mmHg LVOT VTI 30 cm LVOT VTI/AV VTI Ratio 0.5 LVOT Stroke Volume 93 ml LVOT CO 6.3 l/min LVOT CI 2.7 l/min/m2 Pulmonic Valve Name Value Normal RVOT Doppler RVOT Peak Gradient 1 mmHg PV Doppler PV Peak Gradient 4 mmHg Mitral Valve Name
--- NOTE | 2022-02-17 00:15 | ADMGEN ---
This patient, Wyatt Madden, was admitted to IMU Room 206-02. Patient/family oriented to hospital policies and general routines including ID bracelet, bed and alarms, visiting hours, pain management, procedures, bathroom and other care routines, personal items, smoking policy, room service/diet, and visiting hours. Information on how to activate the Rapid Response Team has been discussed. Patient/Family are encouraged to report perceived risks to care and to ask questions if they do not understand what they are told or what they should do.
[2022-02-17 00:37] LABS: Lactic Acid 1.3 mmol/L (0.7-2.0)
[2022-02-17] MEDS: ACETAMINOPHEN 500 MG TABLET 1000 MG PO (01:15)
[2022-02-17] MEDS: rOPINIRole HCL 1 MG TABLET 4 MG PO ×2 (01:38→17:24)
[2022-02-17] MEDS: THIAMINE HCL INJ 100 MG, FOLIC ACID INJ 1 MG, MULTIVITAMINS-12 INJ VIAL 1 5 ML, MULTIVI... IV CONT (01:41)
[2022-02-17] MEDS: NICOTINE (*PBKC) 21 MG PATCH 1 PATCH TRANSDERM ×2 (01:41→14:18)
[2022-02-17] MEDS: chlordiazePOXIDE (*CRX) 25 MG CAPSULE 50 MG PO ×4 (05:24→23:17)
[2022-02-17 08:31] LABS: Glucose Point of Care 151 mg/dl (65-105)
[2022-02-17] MEDS: levETIRAcetam 500MG/NACL 100ML 500 MG/100 ML BAG 400 MG IVPB ×2 (09:44→20:48)
--- NOTE | 2022-02-17 10:18 | WPDNEURCNPN ---
Consult date: 02/17/22 Time Seen: 10:00 HPI: Wyatt Madden is a 56 year old male [facility] Past Medical History Medical History Alcohol abuse Benign essential HTN Bipolar disorder with current episode depressed Chronic insomnia Heart palpitations Major depressive disorder, recurrent severe without psychotic features Obstructive sleep apnea Prediabetes Restless legs syndrome Tobacco dependence Family History Family History Mother Family history of type 2 diabetes mellitus Patient's mother is Sibling Hypertension Other Cerebrovascular accident Family history of malignant neoplasm Social History Social History Social History: Smoking packs per day: 1 Smoking cigarettes per day: 20.0 Years smoked: 30 Smoking pack-years: 30.00 Smoking status: Current every day smoker Tobacco type: cigarettes Second hand tobacco smoke exposure: Yes Smoking end date: 08/03/14 Additional smoking assessment comments: Pt went back to smoking. Alcohol intake: current Alcohol use details: Rarely Substance use: never Substance use type: former substance user Gender identity (if verbalized by the patient): Male Sexual Orientation (if Verbalized by the Patient): Straight or Heterosexual Spiritual care concerns: No Meds Home Medications and Allergies Home Medications Medication Instructions Recorded Confirmed Type aspirin 81 mg PO DAILY 01/13/20 02/17/22 History bupropion HCl 300 mg 24 hr tablet, 300 mg PO QAM 07/19/20 02/17/22 History extended release naltrexone 50 mg tablet 50 mg PO .qhs #30 tabs 11/21/20 02/17/22 Rx diltiazem HCl 240 mg 240 mg PO DAILY #90 caps 07/30/21 02/17/22 Rx capsule,extended release 24 hr quetiapine 50 mg tablet,extended 50 mg PO BID 11/22/21 02/17/22 History release 24 hr meloxicam 15 mg tablet 15 mg PO DAILY #30 tabs 12/03/21 02/17/22 Rx eszopiclone 3 mg tablet 3 mg PO QHS 02/17/22 02/17/22 History metoprolol tartrate 25 mg tablet 25 mg PO BID 02/17/22 02/17/22 History multivit with minerals-iron 18 1 tablet PO DAILY 02/17/22 02/17/22 History mg-folic ac 400 mcg-vit K 25 mcg tablet (Adults Multivitamin) ropinirole 4 mg tablet 4 mg PO QHS 02/17/22 02/17/22 History Allergies Allergy/AdvReac Type Severity Reaction Status Date / Time No Known Allergies Allergy Verified 02/16/22 23:14 Vital Signs Vital Signs - 24 hr 02/16/22 19:26 02/16/22 20:52 02/16/22 21:05 Temperature 36.9 C Pulse Rate 128 H 104 H 98 Pulse Rate [Monitor] Respiratory Rate 24 H 17 Blood Pressure 157/97 H 144/81 H Pulse Oximetry 97 97 Oxygen Delivery Room Air 02/16/22 21:50 02/16/22 23:13 02/17/22 00:13 Temperature Pulse Rate 93 96 90 Pulse Rate [Monitor] Respiratory Rate 18 16 16 Blood Pressure 140/73 139/97 H Pulse Oximetry 95 99 99 Oxygen Delivery 02/17/22 00:20 02/17/22 00:30 02/17/22 00:30 Temperature 36.1 C L Pulse Rate 89 76 Pulse Rate [Monitor] 76 Respiratory Rate 20 Blood Pressure 155/76 H Pulse Oximetry 100 Oxygen Delivery 02/17/22 04:00 02/17/22 04:00 02/17/22 04:00 Temperature 36.7 C Pulse Rate 78 89 Pulse Rate [Monitor] 89 Respiratory Rate 20 Blood Pressure 124/77 124/77 Pulse Oximetry 98 Oxygen Delivery 02/17/22 04:00 02/17/22 06:00 02/17/22 08:00 Temperature 36.2 C L Pulse Rate 89 84 77 Pulse Rate [Monitor] Respiratory Rate 20 16 Blood Pressure 135/77 Pulse Oximetry 98 100 Oxygen Delivery Room Air 02/17/22 08:00 02/17/22 08:00 02/17/22 08:00 Temperature Pulse Rate 76 76 Pulse Rate [Monitor] 89 Respiratory Rate 16 Blood Pressure 135/77 Pulse Oximetry 100 Oxygen Delivery Room Air Results Labs CBC & Chem 7: 02/16/22 20:
--- NOTE | 2022-02-17 10:20 | WPDNEURCNPN ---
Consult date: 02/17/22 Reason for consult: Seizures HPI: Wyatt Madden is a 56 year old male admitted to the hospital through the emergency room with the chief complaints of possible seizure. Patient reported that all throughout the day he had been feeling strange with With his is stating that he does feel similar to whether he had COVID previously apparently at home the patient had a generalized tonic clonic seizures and afterwards she was noted the confused and combative he received Versed by EMS and by the time he arrived to the emergency room he was feeling better though he was unsure what has happened he complained of generalized malaise with mild headaches. He had been taking bupropion 300 mg every day and Seroquel 50 mg extended-release Q 24 hours b.i.d. he was not noted to be allergic to any medication, he has ongoing history of alcohol abuse, bipolar disorder with current episode of depression, obstructive sleep apnea, restless leg syndrome, and pre diabetes, the man with history of years smoked 30 15 smoking pack years currently everyday smoker currently rarely alcohol intake her and former substance use, initial evaluation in the emergency room revealed him to have normal vital signs except the blood pressure of 157/97, routine lab studies were normal except the sodium of 128 and blood sugar of 167, drug screen was positive for benzodiazepine and cannabinoids, x-ray of the chest and CT scan of the head were normal Review of Systems Review of Systems: All systems reviewed & are unremarkable except as noted in HPI and below PMFSH Past Medical History Medical History Alcohol abuse Benign essential HTN Bipolar disorder with current episode depressed Chronic insomnia Heart palpitations Major depressive disorder, recurrent severe without psychotic features Obstructive sleep apnea Prediabetes Restless legs syndrome Tobacco dependence Family History Family History Mother Family history of type 2 diabetes mellitus Patient's mother is Sibling Hypertension Other Cerebrovascular accident Family history of malignant neoplasm Social History Social History Social History: Smoking packs per day: 1 Smoking cigarettes per day: 20.0 Years smoked: 30 Smoking pack-years: 30.00 Smoking status: Current every day smoker Tobacco type: cigarettes Second hand tobacco smoke exposure: Yes Smoking end date: 08/03/14 Additional smoking assessment comments: Pt went back to smoking. Alcohol intake: current Alcohol use details: Rarely Substance use: never Substance use type: former substance user Gender identity (if verbalized by the patient): Male Sexual Orientation (if Verbalized by the Patient): Straight or Heterosexual Spiritual care concerns: No Meds Home Medications and Allergies Home Medications Medication Instructions Recorded Confirmed Type aspirin 81 mg PO DAILY 01/13/20 02/17/22 History bupropion HCl 300 mg 24 hr tablet, 300 mg PO QAM 07/19/20 02/17/22 History extended release naltrexone 50 mg tablet 50 mg PO .qhs #30 tabs 11/21/20 02/17/22 Rx diltiazem HCl 240 mg 240 mg PO DAILY #90 caps 07/30/21 02/17/22 Rx capsule,extended release 24 hr quetiapine 50 mg tablet,extended 50 mg PO BID 11/22/21 02/17/22 History release 24 hr meloxicam 15 mg tablet 15 mg PO DAILY #30 tabs 12/03/21 02/17/22 Rx eszopiclone 3 mg tablet 3 mg PO QHS 02/17/22 02/17/22 History metoprolol tartrate 25 mg tablet 25 mg PO BID 02/17/22 02/17/22 History multivit with minerals-iron 18 1 tablet PO DAILY 02/17/22 02/17/22 History mg-folic ac 400 mcg-vit K 25 mcg tablet (Adults Multivitamin) ropinirole 4 mg tablet 4 mg PO QHS 02/17/22 02/17/22 History Allergies Allergy/AdvR
[2022-02-17 11:28] LABS: Glucose Point of Care 156 mg/dl (65-105)
--- NOTE | 2022-02-17 11:34 | PM.IMPN ---
Progress Note: A&P Assessment and Plan (1) Grand mal seizure: Code(s): G40.409 - Other generalized epilepsy and epileptic syndromes, not intractable, without status epilepticus Status: Acute Assessment and Plan: No prior history of seizures CT of the head with no intracranial abnormality MRI of the brain and brainstem in a.m. Neurology consult Seizure precautions Continue Keppra for now. Seizure most likely related to recent alcohol intake and then refraining from alcohol. (2) Alcohol abuse: Code(s): F10.10 - Alcohol abuse, uncomplicated Status: Inactive Assessment and Plan: Patient has had a relapse Started on Librium Continue to monitor Supportive care CIWA protocol ongoing Banana bag (3) Shoulder pain, right: Qualifiers: Chronicity: chronic Qualified Code(s): M25.511 - Pain in right shoulder; G89.29 - Other chronic pain Code(s): M25.511 - Pain in right shoulder Status: Acute Assessment and Plan: Tylenol as needed (4) Aortic stenosis: Qualifiers: Cardiac valve disease etiology: nonrheumatic Qualified Code(s): I35.0 - Nonrheumatic aortic (valve) stenosis Code(s): I35.0 - Nonrheumatic aortic (valve) stenosis Status: Acute Assessment and Plan: Follow-up in outpatient setting (5) Tobacco dependence: Code(s): F17.200 - Nicotine dependence, unspecified, uncomplicated Status: Acute Assessment and Plan: Nicotine patch (6) Major depressive disorder, recurrent severe without psychotic features: Code(s): F33.2 - Major depressive disorder, recurrent severe without psychotic features Status: Acute Assessment and Plan: Restart home meds (7) Obstructive sleep apnea: Code(s): G47.33 - Obstructive sleep apnea (adult) (pediatric) Status: Acute Assessment and Plan: Continue CPAP at nighttime (8) Restless legs syndrome: Code(s): G25.81 - Restless legs syndrome Status: Acute Assessment and Plan: Continue ropinirole (9) Alcohol withdrawal seizure: Code(s): F10.939 - Alcohol use, unspecified with withdrawal, unspecified; R56.9 - Unspecified convulsions Status: Acute Assessment and Plan: Started on Librium Supportive care Continue to monitor Additional Plan Patient wants confidentiality as his does not knowthat he has had alcohol relapse. Subjective Date/time seen: 02/17/22 11:34 No additional seizure-like activity Overnite. No new complaints. Exam Narrative: Patient is laying in a stretcher Const: General: comfortable, no acute distress, well developed, alert, awake and other (Well-appearing) Nutritional Appearance: average body habitus Orientation/consciousness: patient oriented x3 Other: Has no recollection of events HENMT: Head: normal to inspection, normocephalic and atraumatic Ears: hearing grossly normal bilaterally Face and sinus: normal facial exam Eyes: General: appearance normal, both eyes and all related structures Pupils: Equal, round and reactive pupils present EOM: EOMs intact bilaterally Neck: Neck: full ROM, no lymphadenopathy and no JVD Thyroid: thyroid normal Lymphatic: no lymphadenopathy noted Resp: Effort & Inspection: normal respiratory effort and able to speak in complete sentences Auscultation: clear to auscultation bilaterally Cardio: Jugular venous distension: no JVD Rate: regular rate Rhythm: regular rhythm Heart sounds: S1 normal heart sound present and S2 normal heart sound present : General: Yes deferred Skin: Rashes: no rashes Wounds: no wounds Neuro: General: patient oriented x3 and CN's II-XI intact bilaterally Cranial nerves: Yes CN's II-XII intact bilaterally and Yes Equal, round and reactive pupils present Cognition (Neuro): normal cognition Speech: normal speech Gait exam (Neuro): Normal gait present Motor exam (neuro): 5/5 motor strength present throughout Ext
[2022-02-17] MEDS: ASPIRIN 81 MG CHEWABLE TABLET PO (11:35)
[2022-02-17] MEDS: MELOXICAM 7.5 MG TABLET 15 MG PO (11:35)
[2022-02-17] MEDS: METOPROLOL TARTRATE 25 MG TABLET PO ×2 (11:36→20:48)
[2022-02-17] MEDS: MULTIVITAMINS /C LUTEIN (CENTRUM SILVER) TABLET *BKC 1 TAB PO (11:36)
[2022-02-17] MEDS: QUEtiapine FUMARATE XR 50 MG TAB.ER.24H PO ×2 (11:36→17:26)
[2022-02-17] MEDS: buPROPion HCL XL (24 HR) 150 MG TABCR 300 MG PO (11:37)
[2022-02-17] MEDS: ENOXAPARIN 40 MG/0.4 ML SYRINGE SUB-Q (11:38)
[2022-02-17] MEDS: LORazepam (*CRX) 1 MG TABLET PO (12:05)
--- NOTE | 2022-02-17 12:25 | PC.NURSE ---
Patient left floor for mri/carotid ultrasound at 1210. RN not required to leave floor with patient. No complaints at the time of transport.
--- NOTE | 2022-02-17 13:47 | PC.NURSE ---
Addendum entered by Daly Marquez RN 02/17/22 14:35: Dr. Siddiqui notified, as well. Dr. Carbone consulted for neurosurgery. Original Note: Dr. Phan notified of MRI results, order obtained to consult neurosurgery.
--- NOTE | 2022-02-17 16:37 | P.NEURO_ITS ---
Neurology EEG Report General Information Date of Study: 02/17/22 TEST eeg DIAGNOSIS seizure CONDITION OF RECORDING Awake drowsy and sleep EEG NUMBER [id number] CLINICAL HISTORY patient reports he had a seizure yesterday has never had 1 before EEG DESCRIPTION basic resting occipital frequency consists of low medium voltage 11 to 13 hertz per 2nd alpha admixed with low-voltage 15 to 18 hertz per 2nd beta. During drowsiness low-voltage beta activity seen diffusely admixed with waxing and waning posterior alpha rhythm. Bilateral symmetrical sleep activity seen during sleep. Hyperventilation not done. Photic stimulation not done. Non par oxysmal. Nonfocal. Nonlateralizing. IMPRESSION No significant abnormalities noted
[2022-02-17 16:40] LABS: Glucose Point of Care 111 mg/dl (65-105)
--- NOTE | 2022-02-17 16:40 | WPDNEURCNPN ---
Assessment and Plan Assessment and plan (1) Alcohol withdrawal seizure: Code(s): F10.939 - Alcohol use, unspecified with withdrawal, unspecified; R56.9 - Unspecified convulsions Status: Acute (2) Occipital subdural bleed: Code(s): I62.00 - Nontraumatic subdural hemorrhage, unspecified Status: Acute Assessment and Plan: 3mm thickness left occipital subdural hematoma with history of taking aspirin 81 mg daily and a fall aspirin is being withheld neurological status is stable most likely will not need any intervention Plan observation Consult date: 02/17/22 HPI: Wyatt Madden is a 56 year old male [facility] Past Medical History Medical History Alcohol abuse Benign essential HTN Bipolar disorder with current episode depressed Chronic insomnia Heart palpitations Major depressive disorder, recurrent severe without psychotic features Obstructive sleep apnea Prediabetes Restless legs syndrome Tobacco dependence Family History Family History Mother Family history of type 2 diabetes mellitus Patient's mother is Sibling Hypertension Other Cerebrovascular accident Family history of malignant neoplasm Social History Social History Social History: Smoking packs per day: 1 Smoking cigarettes per day: 20.0 Years smoked: 30 Smoking pack-years: 30.00 Smoking status: Current every day smoker Tobacco type: cigarettes Second hand tobacco smoke exposure: Yes Smoking end date: 08/03/14 Additional smoking assessment comments: Pt went back to smoking. Alcohol intake: current Alcohol use details: Rarely Substance use: never Substance use type: former substance user Gender identity (if verbalized by the patient): Male Sexual Orientation (if Verbalized by the Patient): Straight or Heterosexual Spiritual care concerns: No Meds Home Medications and Allergies Home Medications Medication Instructions Recorded Confirmed Type aspirin 81 mg PO DAILY 01/13/20 02/17/22 History bupropion HCl 300 mg 24 hr tablet, 300 mg PO QAM 07/19/20 02/17/22 History extended release naltrexone 50 mg tablet 50 mg PO .qhs #30 tabs 11/21/20 02/17/22 Rx diltiazem HCl 240 mg 240 mg PO DAILY #90 caps 07/30/21 02/17/22 Rx capsule,extended release 24 hr quetiapine 50 mg tablet,extended 50 mg PO BID 11/22/21 02/17/22 History release 24 hr meloxicam 15 mg tablet 15 mg PO DAILY #30 tabs 12/03/21 02/17/22 Rx eszopiclone 3 mg tablet 3 mg PO QHS 02/17/22 02/17/22 History metoprolol tartrate 25 mg tablet 25 mg PO BID 02/17/22 02/17/22 History multivit with minerals-iron 18 1 tablet PO DAILY 02/17/22 02/17/22 History mg-folic ac 400 mcg-vit K 25 mcg tablet (Adults Multivitamin) ropinirole 4 mg tablet 4 mg PO QHS 02/17/22 02/17/22 History Allergies Allergy/AdvReac Type Severity Reaction Status Date / Time No Known Allergies Allergy Verified 02/16/22 23:14 Vital Signs Vital Signs - 24 hr 02/16/22 19:26 02/16/22 20:52 02/16/22 21:05 Temperature 36.9 C Pulse Rate 128 H 104 H 98 Pulse Rate [Monitor] Respiratory Rate 24 H 17 Blood Pressure 157/97 H 144/81 H Pulse Oximetry 97 97 Oxygen Delivery Room Air 02/16/22 21:50 02/16/22 23:13 02/17/22 00:13 Temperature Pulse Rate 93 96 90 Pulse Rate [Monitor] Respiratory Rate 18 16 16 Blood Pressure 140/73 139/97 H Pulse Oximetry 95 99 99 Oxygen Delivery 02/17/22 00:20 02/17/22 00:30 02/17/22 00:30 Temperature 36.1 C L Pulse Rate 89 76 Pulse Rate [Monitor] 76 Respiratory Rate 20 Blood Pressure 155/76 H Pulse Oximetry 100 Oxygen Delivery 02/17/22 04:00 02/17/22 04:00 02/17/22 04:00 Temperature 36.7 C Pulse Rate 78 89 Pulse Rate [Monitor] 89 Respirato
--- NOTE | 2022-02-17 18:07 | WPDCN ---
Assessment and Plan Assessment and plan (1) Occipital subdural bleed: Code(s): I62.00 - Nontraumatic subdural hemorrhage, unspecified Status: Acute Assessment and Plan: Mr. Madden is a 56-year-old gentleman with a history of alcohol abuse and a first-time generalized seizure last night who is now almost 24 hours out from the ictus who has been discovered to have a very thin subdural hematoma on the left in the parieto-occipital area. This will require no specific surgical intervention. All anticoagulants should be avoided including aspirin, ibuprofen and any other NSAIDs. He should follow up with me in 1 month time at which point we will obtain a new head CT to confirm resolution of the hematoma. He should avoid strenuous activity and not lift more than 10 lb or engage in any aerobic activity or anything that could raise his blood pressure above normal. He may otherwise enjoy gentle normal activity. Thank you for allowing me to participate in the care of this patient. HPI Data of Consult Date/Time: 02/17/22 18:07 Requesting Physician: Kevin Delacruz MD Primary Care Provider: Carolyn Davis MD Consult Narrative Narrative: Wyatt Madden is a 56 year old male with the current medical history of alcohol abuse who presents to the [facility] Emergency Room after an apparent generalized seizure. He was awake and alert at the time of his presentation. Head CT initially done did not demonstrate any acute intracranial abnormalities. However, because of the new onset seizure an MRI was performed which demonstrated a thin subdural in the left parieto-occipital area. Patient complains only of mild headache and this has been improving. His mentation has apparently been normal. He does not report any neurologic issues or disequilibrium or vertigo. His eyesight he states has remained normal. He has been ambulatory in the hospital. He has been eating. He does not have other constitutional problems currently. Review of Systems Review of Systems: Negative on 12 systems except as noted in the history of present illness and in the past medical history. He has a psych history and history of alcohol abuse. He specifically denies shortness of breath, cough, fever, chills, nausea, vomiting, weight loss, weight gain, dysuria, bowel difficulties, chest pain. [facility] Past Medical History Medical History Alcohol abuse Benign essential HTN Bipolar disorder with current episode depressed Chronic insomnia Heart palpitations Major depressive disorder, recurrent severe without psychotic features Obstructive sleep apnea Prediabetes Restless legs syndrome Tobacco dependence Family History Family History Mother Family history of type 2 diabetes mellitus Patient's mother is Sibling Hypertension Other Cerebrovascular accident Family history of malignant neoplasm Social History Social History Social History: Smoking packs per day: 1 Smoking cigarettes per day: 20.0 Years smoked: 30 Smoking pack-years: 30.00 Smoking status: Current every day smoker Tobacco type: cigarettes Second hand tobacco smoke exposure: Yes Smoking end date: 08/03/14 Additional smoking assessment comments: Pt went back to smoking. Alcohol intake: current Alcohol use details: Rarely Substance use: never Substance use type: former substance user Gender identity (if verbalized by the patient): Male Sexual Orientation (if Verbalized by the Patient): Straight or Heterosexual Spiritual care concerns: No Meds Home Medications and Allergies Home Medications Medication Instructions Recorded Confirmed Type aspirin 81 mg PO DAILY 01/13/20 02/17/22 History bupropion HCl 300 mg 24 hr tablet,
[2022-02-17 20:31] LABS: Glucose Point of Care 152 mg/dl (65-105)
[2022-02-18] VITALS (8 sets, daily range): BP systolic 118–139; BP diastolic 63–76; PULSE 64–89; RESP 16–20; TEMP 36.5–36.7; O2SAT 97–100
[2022-02-18 05:06] LABS: Hemoglobin 13.7 g/dL (14.0-18.0); Immature Platelet Fraction Pct 4.3 % (0.9-11.2); Mean Corpuscular HGB Conc 33.4 g/dl (32-36); Mean Corpuscular Hemoglobin 31.9 pg (26-34); Mean Corpuscular Volume 95.3 fl (80-100); Mean Platelet Volume 10.5 fl (7.4-10.4); Platelet Count Result 107 k/mm3 (150-375); Red Cell Distribution Width 13.5 % (11.5-14.5); White Blood Count 9.6 K/mm3 (4.5-10.0)
[2022-02-18 05:15] LABS: Anion Gap 5 mmol/L (8-16); Blood Urea Nitrogen 6 mg/dL (9-20); Calcium 8.5 mg/dL (8.4-10.2); Carbon Dioxide 22 mmol/L (22-30); Chloride 114 mmol/L (98-107); Estimated CRCL calculation 153 ml/min; Estimated Glomerular Filt Rate > 60; Glucose 119 mg/dL (65-110); Potassium 3.9 mmol/L (3.4-5.0); Sodium 141 mmol/L (137-145)
[2022-02-18 08:30] LABS: Glucose Point of Care 147 mg/dl (65-105)
--- NOTE | 2022-02-18 09:15 | PM.DS ---
DS: Admitting Diagnosis Discharge Date February 18, 2022 Admitting Diagnosis Seizure DS: Discharge Diagnosis Discharge Diagnosis (1) Grand mal seizure: Code(s): G40.409 - Other generalized epilepsy and epileptic syndromes, not intractable, without status epilepticus Status: Acute Assessment and Plan: Will stop Keppra Likely related to alcohol. Doing better. (2) Alcohol abuse: Code(s): F10.10 - Alcohol abuse, uncomplicated Status: Inactive Assessment and Plan: Cessation counseled (3) Shoulder pain, right: Qualifiers: Chronicity: chronic Qualified Code(s): M25.511 - Pain in right shoulder; G89.29 - Other chronic pain Code(s): M25.511 - Pain in right shoulder Status: Acute Assessment and Plan: Tylenol as needed (4) Aortic stenosis: Qualifiers: Cardiac valve disease etiology: nonrheumatic Qualified Code(s): I35.0 - Nonrheumatic aortic (valve) stenosis Code(s): I35.0 - Nonrheumatic aortic (valve) stenosis Status: Acute Assessment and Plan: Follow-up in outpatient setting (5) Tobacco dependence: Code(s): F17.200 - Nicotine dependence, unspecified, uncomplicated Status: Acute Assessment and Plan: Nicotine patch (6) Major depressive disorder, recurrent severe without psychotic features: Code(s): F33.2 - Major depressive disorder, recurrent severe without psychotic features Status: Acute Assessment and Plan: Restart home meds (7) Obstructive sleep apnea: Code(s): G47.33 - Obstructive sleep apnea (adult) (pediatric) Status: Acute Assessment and Plan: Continue CPAP at nighttime (8) Restless legs syndrome: Code(s): G25.81 - Restless legs syndrome Status: Acute Assessment and Plan: Continue ropinirole (9) Alcohol withdrawal seizure: Code(s): F10.939 - Alcohol use, unspecified with withdrawal, unspecified; R56.9 - Unspecified convulsions Status: Acute Assessment and Plan: Started on Librium Supportive care Continue to monitor DS: Summary Hospital Course Hospital Course: See discharge plan diagnoses Time Spent with Patient Time attestation: Total time spent providing and/or coordinating discharge services: Exam Narrative: Patient is laying in a stretcher Const: General: comfortable, no acute distress, well developed, alert, awake and other (Well-appearing) Nutritional Appearance: average body habitus Orientation/consciousness: patient oriented x3 Other: Has no recollection of events HENMT: Head: normal to inspection, normocephalic and atraumatic Ears: hearing grossly normal bilaterally Face and sinus: normal facial exam Eyes: General: appearance normal, both eyes and all related structures Pupils: Equal, round and reactive pupils present EOM: EOMs intact bilaterally Neck: Neck: full ROM, no lymphadenopathy and no JVD Thyroid: thyroid normal Lymphatic: no lymphadenopathy noted Resp: Effort & Inspection: normal respiratory effort and able to speak in complete sentences Auscultation: clear to auscultation bilaterally Cardio: Jugular venous distension: no JVD Rate: regular rate Rhythm: regular rhythm Heart sounds: S1 normal heart sound present and S2 normal heart sound present : General: Yes deferred Skin: Rashes: no rashes Wounds: no wounds Neuro: General: patient oriented x3 and CN's II-XI intact bilaterally Cranial nerves: Yes CN's II-XII intact bilaterally and Yes Equal, round and reactive pupils present Cognition (Neuro): normal cognition Speech: normal speech Gait exam (Neuro): Normal gait present Motor exam (neuro): 5/5 motor strength present throughout Extrem: General: normal to inspection, full ROM, no joint enlargement and no pedal edema DS: Data Data Completed and Pending Labs on day of discharge: Labs from last 24 hours 02/18/22 02/18/22 02/18/22 08:26 04:32 04:32 WBC 9.
[2022-02-18] MEDS: METOPROLOL TARTRATE 25 MG TABLET PO (09:28)
[2022-02-18] MEDS: MELOXICAM 7.5 MG TABLET 15 MG PO (09:28)
[2022-02-18] MEDS: QUEtiapine FUMARATE XR 50 MG TAB.ER.24H PO (09:28)
[2022-02-18] MEDS: MULTIVITAMINS /C LUTEIN (CENTRUM SILVER) TABLET *BKC 1 TAB PO (09:28)
[2022-02-18] MEDS: buPROPion HCL XL (24 HR) 150 MG TABCR 300 MG PO (09:28)
[2022-02-18] MEDS: ENOXAPARIN 40 MG/0.4 ML SYRINGE SUB-Q (09:28)
[2022-02-18] MEDS: levETIRAcetam 500MG/NACL 100ML 500 MG/100 ML BAG 400 MG IVPB (09:29)
[2022-02-18] MEDS: NICOTINE (*PBKC) 21 MG PATCH 1 PATCH TRANSDERM (09:29)
== END 2022-02-18 10:57 | disposition home or self-care (01) ==
LOC: ANHED 22:52 → ANHIMU 02-17 01:30
PROVIDERS: Admitting Provider Internal Medicine; Emergency Provider Emergency Medicine; PCP Family Medicine; Visit Provider Chiropractor
DX: G40.409 Other generalized epilepsy and epileptic syndromes, not intractable, without status epilepticus (principal); I62.00 Nontraumatic subdural hemorrhage, unspecified; F10.939 Alcohol use, unspecified with withdrawal, unspecified; I10 Essential (primary) hypertension; G47.33 Obstructive sleep apnea (adult) (pediatric); M25.511 Pain in right shoulder; G89.29 Other chronic pain; I35.0 Nonrheumatic aortic (valve) stenosis; R73.03 Prediabetes; I65.23 Occlusion and stenosis of bilateral carotid arteries; F31.4 Bipolar disorder, current episode depressed, severe, without psychotic features; G25.81 Restless legs syndrome; Z79.82 Long term (current) use of aspirin; F17.210 Nicotine dependence, cigarettes, uncomplicated; Z86.16 Personal history of COVID-19; Z20.822 Contact with and (suspected) exposure to COVID-19
CPT/HCPCS: 36415; 70450; 70551; 71045; 80048; 80053; 80307; 81001; 82550; 82948; 83605; 83690; 83735; 83880; 84145; 84484; 85025; 85027; 85055; 85610; 85730; 86140; 87040; 87502; 93005; 93306; 93880; 95816; 96361; 96365; 96366; 96372; 96374; 96375; 96376; 99285; A9270; C9803; G0378; J1650; J1953; J3411; J3475; J7030; J7042; U0003; U0005

== ENCOUNTER 2022-08-19 21:33 | Emergency (ER) | payer OTHER, SELFPAY ==
--- NOTE | ~2022-08-19 | XR_ITS ---
EXAMINATION: XR chest 2V DATE: 08/19/2022 22:07 INDICATION: Chest pain. Palpitations. TECHNIQUE: Frontal and lateral views of the chest were obtained on 3 radiographs. COMPARISON: Chest single view 02/16/2022 FINDINGS: There is no pneumonia, pleural effusion, or pneumothorax. The heart size is normal. There i s mild chronic anterior wedging of multiple thoracic vertebral bodies. IMPRESSION: 1. No acute cardiopulmonary disease. Reviewed, dictated and finalized at location [facility]
[2022-08-19 21:41] VITALS: BP 153/87; PULSE 116; RESP 20; TEMP 36.4; O2SAT 98
--- NOTE | 2022-08-19 21:50 | ECG_ITS ---
Measurements Intervals [place] Rate: 123 P: 77 CO: 169 QRS: 65 QRSD: 107 T: 48 QT: 339 QTc: 486 Interpretive Statements SINUS TACHYCARDIA MINIMAL Q WAVES- ANTEROLAT/INF LEADS BASELINE ARTIFACT- I, II, III, AVR, AVL, AVF, V1-V6 ABNORMAL ECG COMPARED TO ECG 02/16/2022 19:37:23 NO SIGNIFICANT CHANGES Electronically Signed On 08-20-2022 19:14:06 D[employer]ED [employer] by Gilbert Hurley D.O.
[2022-08-19 22:07] LABS: Basophils Absolute Auto 0.1 K/mm3 (0.0-0.1); Basophils Percent Auto 0.4 % (0.2-1.2); Eosinophils Absolute Auto 0.1 K/mm3 (0-0.3); Eosinophils Percent Auto 1.1 % (0-4.4); Hematocrit 44.8 % (42.0-52.0); Hemoglobin 15.7 g/dL (14.0-18.0); Immature Granulocyte Absolute 0.07 K/mm3 (0.00-0.031); Immature Granulocyte Percent A 0.5 % (0-0.5); Lymphocytes Absolute Auto 4.97 K/mm3 (0.9-3.2); Lymphocytes Percent Auto 38.6 % (18.3-44.2); Mean Corpuscular Hemoglobin 30.5 pg (26-34); Mean Corpuscular Volume 87.2 fl (80-100); Mean Platelet Volume 9.9 fl (7.4-10.4); Monocytes Absolute Auto 0.9 K/mm3 (0.1-0.6); Monocytes Percent Auto 6.8 % (2.6-8.5); Neutrophils Absolute Auto 6.8 K/mm3 (1.3-6.7); Neutrophils Percent Auto 52.6 % (45.5-73.1); Platelet Count Result 205 k/mm3 (150-375); Red Blood Count 5.14 M/mm3 (4.6-6.20); White Blood Count 12.9 K/mm3 (4.5-10.0)
[2022-08-19 22:15] LABS: Prothrombin Time 12.8 Seconds (11.1-14.7)
[2022-08-19 22:16] LABS: Partial Thromboplastin Time 25.6 SECONDS (22.3-36.8)
[2022-08-19 22:17] LABS: Alanine Aminotransferase 27 U/L (6-50); Albumin Level 4.7 g/dL (3.5-5.1); Alkaline Phosphatase 75 U/L (38-126); Anion Gap 12 mmol/L (8-16); Aspartate Amino Transferase 26 U/L (17-59); Bilirubin,Total 0.6 mg/dL (0.2-1.3); Blood Urea Nitrogen 8 mg/dL (9-20); Calcium 8.9 mg/dL (8.4-10.2); Carbon Dioxide 22 mmol/L (22-30); Chloride 106 mmol/L (98-107); Estimated CRCL calculation 114 ml/min; Estimated Glomerular Filt Rate > 60; Glucose 110 mg/dL (65-110); Lipase 223 U/L (23-300); Potassium 3.5 mmol/L (3.4-5.0); Sodium 140 mmol/L (137-145)
[2022-08-19] MEDS: ASPIRIN 81 MG CHEWABLE TABLET 324 MG PO (22:23)
[2022-08-19 22:27] LABS: Troponin I < 0.012 ng/mL (0.000-0.034)
[2022-08-19 22:38] LABS: NT Pro B Type Natriuretic Pept 22 pg/mL (19.9-100)
[2022-08-19 22:43] VITALS: BP 154/87; PULSE 96; RESP 17; O2SAT 97
[2022-08-20 01:18] LABS: NT Pro B Type Natriuretic Pept 25 pg/mL (19.9-100); Troponin I < 0.012 ng/mL (0.000-0.034)
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
[2022-08-20 02:00] VITALS: BP 157/88; PULSE 86; RESP 18; O2SAT 100
== END 2022-08-20 02:01 | disposition home or self-care (01) ==
PROVIDERS: Emergency Provider Emergency Medicine; PCP Family Medicine
DX: R00.2 Palpitations (principal); R07.9 Chest pain, unspecified; I10 Essential (primary) hypertension; F17.210 Nicotine dependence, cigarettes, uncomplicated; Z79.82 Long term (current) use of aspirin
CPT/HCPCS: 36415; 71046; 80053; 83690; 83880; 84484; 85025; 85610; 85730; 93005; 99284; A9270

== ENCOUNTER 2022-08-22 09:09 | Emergency (ER) | payer OTHER, SELFPAY ==
--- NOTE | ~2022-08-22 | XR_ITS ---
EXAMINATION: XR hand RT min 3V, XR wrist RT min 3V DATE: 08/22/2022 09:36 INDICATION: Right hand pain and swelling TECHNIQUE: 1. Posteroanterior, ulnar deviation, oblique, and lateral views of the right wrist were obtained. 2. Dorsal palmar, oblique and lateral views of the right hand were obtained. COMPARISON: None. FINDINGS: Alignment of the right hand and wrist is normal. No fracture identified. Mild polyarticular osteoart hritis at the interphalangeal joints. No erosions. Soft tissues are unremarkable. IMPRESSION: 1. 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 Reviewed, dictated and finalized at location A. PATIONAL THERAPIST IMPRESSION: 1. 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
[2022-08-22 09:16] VITALS: BP 147/82; PULSE 67; RESP 18; TEMP 36.7; O2SAT 100
--- NOTE | 2022-08-22 09:18 | ED.GENADULT ---
HPI - General Adult General Chief complaint: Extremity Injury, Upper Stated complaint: Rt Hand Swelling Time Seen by Provider: 08/22/22 09:18 Source: patient, RN notes reviewed and old records reviewed Mode of arrival: ambulatory Limitations: no limitations History of Present Illness HPI narrative: 56-year-old male presents to the [facility] with right wrist pain and hand swelling that started yesterday. Related Data Home Medications Medication Instructions Recorded Confirmed quetiapine 50 mg tablet,extended 50 mg PO BID 11/22/21 08/22/22 release 24 hr multivit with minerals-iron 18 1 tablet PO DAILY 02/17/22 08/22/22 mg-folic ac 400 mcg-vit K 25 mcg tablet (Adults Multivitamin) aspirin 81 mg chewable tablet 81 mg PO DAILY 08/22/22 08/22/22 bupropion HCl (smoking deter) 150 150 mg PO DAILY 08/22/22 08/22/22 mg tablet,12 hr sustained-release(smoking deterrent) Allergies Allergy/AdvReac Type Severity Reaction Status Date / Time No Known Allergies Allergy Verified 08/22/22 09:17 Review of Systems Review of Systems: All systems reviewed & are unremarkable except as noted in HPI and below Constitutional: Constitutional: Reports no additional constitutional complaints Eyes: Eyes: Reports no additional eye complaints ENT: Reports system reviewed and no additional complaints, except as documented Cardiovascular: Cardiovascular: Reports no additional cardiovascular complaints, Denies chest pain and Denies dyspnea Respiratory: Respiratory: Reports no additional respiratory complaints, Denies chest congestion, Denies cough and Denies dyspnea Gastrointestinal: Gastrointestinal: Reports no additional gastrointestinal complaints, Denies abdominal pain, Denies nausea and Denies vomiting Musculoskeletal: Musculoskeletal: Reports as per HPI, Reports arthralgias and Reports joint swelling Integumentary/Breasts: Skin/Breast: Reports system reviewed and no additional complaints, except as docu Neurologic: Reports system reviewed and no additional complaints, except as documented Psychiatric: Psychiatric: Reports no additional psychiatric complaints Allergic/Immunologic: Allergic/Immunologic: Reports no additional allergic/immunologic complaints PMFSH Past Medical History Medical History Alcohol abuse Benign essential HTN Bipolar disorder with current episode depressed Chronic insomnia DJD of AC (acromioclavicular) joint Heart palpitations Major depressive disorder, recurrent severe without psychotic features Obstructive sleep apnea Prediabetes Restless legs syndrome Right shoulder pain Tobacco dependence Family History Family History Mother Family history of type 2 diabetes mellitus Patient's mother is Sibling Hypertension Other Cerebrovascular accident Family history of malignant neoplasm Social History Social History Social History: Smoking packs per day: 1 Smoking cigarettes per day: 20.0 Years smoked: 30 Smoking pack-years: 30.00 Smoking status: Current every day smoker Tobacco type: cigarettes Second hand tobacco smoke exposure: Yes Smoking end date: 08/03/14 Additional smoking assessment comments: Pt went back to smoking. 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
[2022-08-22 09:19] VITALS: BP 147/82; PULSE 67; RESP 18; TEMP 36.7; O2SAT 100
== END 2022-08-22 10:10 | disposition home or self-care (01) ==
PROVIDERS: Emergency Provider Nurse Practitioner; PCP Family Medicine
DX: G56.01 Carpal tunnel syndrome, right upper limb (principal); M19.041 Primary osteoarthritis, right hand; Z87.891 Personal history of nicotine dependence; I10 Essential (primary) hypertension; M19.019 Primary osteoarthritis, unspecified shoulder; R73.03 Prediabetes; G25.81 Restless legs syndrome; F31.9 Bipolar disorder, unspecified
CPT/HCPCS: 73110; 73130; 99213; G0463

== ENCOUNTER 2022-10-17 16:28 | Outpatient (CLI) | payer OTHER, SELFPAY ==
--- NOTE | ~2022-10-17 | XR_ITS ---
EXAMINATION: XR knee LT 3V DATE: 10/17/2022 16:53 INDICATION: Left knee pain TECHNIQUE: AP, lateral and sunrise views of the left knee were obtained COMPARISON: None. FINDINGS: Alignment is normal. No fracture. Joint spaces appear normal. Tiny osteophytes at the cephalad and l ateral margins of the patella. There is also a small cephalad patellar enthesophyte at the insertion of the quadriceps tendon. No joint effusion. Soft tissues are unremarkable. IMPRESSION: 1. Minimal patellofemoral osteoarthritis. No joint effusion or acute osseous abnormality. Reviewed, dictated and finalized at location B. IMPRESSION: 1. Minimal patellofemoral osteoarthritis. No joint effusion or acute osseous ab normality.
== END 2022-10-17 16:29 | disposition home or self-care (01) ==
LOC: ANHIMG 16:32
PROVIDERS: PCP Family Medicine; Visit Provider Physician Assistant
DX: M25.562 Pain in left knee (principal)
CPT/HCPCS: 73562

== ENCOUNTER 2022-10-25 07:46 | Outpatient (CLI) | payer OTHER, SELFPAY ==
[2022-10-25 08:32] LABS: Alanine Aminotransferase 22 U/L (6-50); Albumin Level 4.2 g/dL (3.5-5.1); Alkaline Phosphatase 67 U/L (38-126); Anion Gap 8 mmol/L (8-16); Aspartate Amino Transferase 19 U/L (17-59); Bilirubin,Total 0.7 mg/dL (0.2-1.3); Blood Urea Nitrogen 13 mg/dL (9-20); Calcium 8.7 mg/dL (8.4-10.2); Carbon Dioxide 24 mmol/L (22-30); Chloride 108 mmol/L (98-107); Cholesterol 238 mg/dL (0-200); Estimated Glomerular Filt Rate > 60; Glucose 126 mg/dL (65-110); HDL Direct 28 mg/dL; Sodium 140 mmol/L (137-145); Triglycerides 249 mg/dL (<150); Uric Acid 6.6 mg/dL (3.5-8.5)
[2022-10-25 08:43] LABS: LDL Cholesterol Direct 155 mg/dL
[2022-10-25 10:50] LABS: Hemoglobin A1C 5.8 % (<5.7)
== END 2022-10-25 07:47 | disposition home or self-care (01) ==
LOC: ANHLAB 07:48
PROVIDERS: PCP Family Medicine; Visit Provider Family Medicine
DX: E11.9 Type 2 diabetes mellitus without complications (principal); E03.9 Hypothyroidism, unspecified; I10 Essential (primary) hypertension; E79.0 Hyperuricemia without signs of inflammatory arthritis and tophaceous disease; E78.2 Mixed hyperlipidemia
CPT/HCPCS: 36415; 80053; 80061; 83036; 84443; 84550

== ENCOUNTER → 2022-11-20 12:57 | Outpatient (CLI) | payer OTHER, SELFPAY ==
--- NOTE | ~2022-11-20 | MR_ITS ---
EXAMINATION: MR knee LT wo con DATE: 11/20/2022 13:37 INDICATION: Left knee pain TECHNIQUE: Magnetic resonance imaging (MRI) of the left knee was performed without intravenous contra st. Sequences included coronal PD-weighted FSE, coronal PD-weighted FS FSE, sagittal T2-weighted FSE , sagittal PD-weighted FS FSE and axial PD weighted fat saturated FSE. COMPARISON: None. FINDINGS: Medial compartment: Medial meniscus is normal. Partial-thickness chondral fissuring which appears to involve less than 50 % the cartilage thickness and without degenerative subchondral changes along the lateral margin of th e anterior weightbearing medial femoral condyle. Lateral compartment: Lateral meniscus is normal. Deep chondral fissuring with tiny focus of underlying subarticular edema- like signal change at the central aspect of the lateral tibial plateau. Normal cartilage along the we ightbearing lateral femoral condyle. Patellofemoral compartment: Deep chondral fissure at the trochlear groove and extending to the lateral superior aspect of the med ial trochlea. No underlying degenerative subchondral changes. Less severe partial thickness chondral fissuring involving less than 50% of the cartilage thickness at the patellar apical ridge and medial facet. Ligaments and tendons: Anterior and posterior cruciate ligaments are normal. Mild thickening without surrounding edema or si gnificant increased signal of the proximal medial collateral ligament consistent with likely mild sca rring related to chronic sprain. The fibular collateral ligament complex is normal. Patellar tendon i s normal. Mild tendinopathy and small enthesophytes at the patellar insertion of the distal quadricep s tendon. Tendinopathy without tear at the distal semimembranosus tendon. Remaining visualized medial and lateral hamstring tendons as well as the iliotibial band are normal. Fluid: Small left knee joint effusion. No loose osteochondral bodies identified. Small Gunter's cyst which c ommunicates with an additional small loculated component of the Gunter's cyst extending cephalad betwe en the deep margin of the semimembranosus, the medial head of gastrocnemius and the popliteal vein. T here is some surrounding edema in the popliteal fossa suggesting partial rupture of the Gunter's cyst. Osseous/other: Small low signal intensity bone island at the medial femoral condyle. No fracture or pathologic marro w replacing process. There is edema at the deep suprapatellar fat pad which can be seen with fat pad impingement syndrome. IMPRESSION: 1. Mild osteoarthritis with small regions of high-grade chondromalacia at the lateral tibial plateau and regions of moderate grade chondromalacia at the patella, trochlea and weightbearing medial femora l condyle. 2. Mild tendinopathy without tear at the distal quadriceps and distal semimembranosus tendons. 3. Small knee joint effusion and likely partially ruptured Gunter's cyst at the popliteal fossa. 4. Edema in the deep suprapatellar fat pad which can be seen with fat pad impingement syndrome. Reviewed, dictated and finalized at location A. IMPRESSION: 1. Mild osteoarthritis with small regions of high-grade chondromalacia at the l ateral tibial plateau and regions of moderate grade chondromalacia at the mccullough la, trochlea and weightbearing medial femoral condyle. 2. Mild tendinopathy without tear at the distal quadriceps and distal semimembr anosus tendons. 3. Small knee joint effusion and likely partially ruptured Gunter's cyst at the popliteal fossa. 4. Edema in the deep suprapatellar fat pad which can be seen with fat pad impin gement syndrome.
== END ==
PROVIDERS: PCP Family Medicine; Visit Provider Nurse Practitioner Family
DX: M17.12 Unilateral primary osteoarthritis, left knee (principal); M25.462 Effusion, left knee
CPT/HCPCS: 73721

== ENCOUNTER 2023-01-14 07:09 | Day surgery (SDC) | payer OTHER, SELFPAY ==
[2023-01-05 14:00] VITALS: BMI 29.2
--- NOTE | 2023-01-15 07:30 | SUR.PREOP ---
[facility].
== END 2023-01-14 07:30 | disposition home or self-care (01) ==
LOC: ANHENDO 02-06 14:09
PROVIDERS: PCP Family Medicine; Visit Provider Internal Medicine Gastroenterology
DX: Z12.11 Encounter for screening for malignant neoplasm of colon (principal); Z53.8 Procedure and treatment not carried out for other reasons
CPT/HCPCS: 99199; J7120

== ENCOUNTER 2023-01-26 01:14 | Day surgery (SDC) | payer OTHER, SELFPAY ==
[2023-01-26 07:53] VITALS: BP 119/62; PULSE 56; RESP 20; TEMP 36.2; O2SAT 99
[2023-01-26] MEDS: LACTATED RINGERS 1,000 ML 150 ML IV CONT (07:58)
--- NOTE | 2023-01-26 08:06 | WPDANESEPPF ---
Anes - Initial Pre Proc Eval Procedure: Operation Date: 01/26/23 09:00 Proposed Procedures p Screening Colonoscopy - Hitesh Gutierrez MD Date/Time: 01/26/23 08:06 Surgeon: Hitesh Gutierrez MD Pre Op Diagnosis: neoplasm screening Patient Data Age: 57 Gender: M Height: Weight: 94.7 kg Last Vital Signs Temp 97.2 F L 01/26/23 07:53 Pulse 56 L 01/26/23 07:53 Resp 20 01/26/23 07:53 BP 119/62 01/26/23 07:53 Pulse Ox 99 01/26/23 07:53 O2 Del Method Room Air 01/26/23 07:53 Allergies Allergy/AdvReac Type Severity Reaction Status Date / Time No Known Allergies Allergy Verified 01/26/23 07:48 Home Medications Medication Instructions Recorded Confirmed Type quetiapine 50 mg tablet,extended 50 mg PO BID 11/22/21 01/26/23 History release 24 hr multivit with minerals-iron 18 1 tablet PO DAILY 02/17/22 01/26/23 History mg-folic ac 400 mcg-vit K 25 mcg tablet (Adults Multivitamin) aspirin 81 mg chewable tablet 81 mg PO DAILY 08/22/22 01/26/23 History bupropion HCl (smoking deter) 150 150 mg PO DAILY 08/22/22 01/26/23 History mg tablet,12 hr sustained-release(smoking deterrent) ropinirole 4 mg tablet 4 mg PO BID #180 tabs 10/16/22 01/26/23 Rx eszopiclone 3 mg tablet 3 mg PO QHS PRN insomnia #30 tabs 12/31/22 01/26/23 Rx diltiazem HCl 240 mg 240 mg PO DAILY 01/26/23 01/26/23 History capsule,extended release 24 hr metoprolol tartrate 25 mg tablet 50 mg PO BID 01/26/23 01/26/23 History naltrexone 50 mg tablet 50 mg PO HS 01/26/23 01/26/23 History Patient hx anesthesia problems: none Family hx anesthesia problems: none Results Review: All pre-operative results and documents have been reviewed as part of the pre-operative evaluation. [facility] Past Medical History Medical History Alcohol abuse Benign essential HTN Bipolar disorder with current episode depressed Chronic insomnia DJD of AC (acromioclavicular) joint Heart palpitations Impingement syndrome involving patellar fat pad of left knee Left knee injury Left knee pain Major depressive disorder, recurrent severe without psychotic features Medial meniscus tear Obstructive sleep apnea Prediabetes Restless legs syndrome Right shoulder pain Tobacco dependence Family History Family History Mother Family history of type 2 diabetes mellitus Patient's mother is Sibling Hypertension Other Cerebrovascular accident Family history of malignant neoplasm Social History Social History Social History: Smoking packs per day: 0.5 Smoking cigarettes per day: 10.0 Years smoked: 25 Smoking pack-years: 12.50 Smoking status: Former smoker Tobacco type: cigarettes Second hand tobacco smoke exposure: Yes Additional smoking assessment comments: Pt went back to smoking. 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
--- NOTE | 2023-01-26 08:31 | PM.HPGS ---
History of Present Illness History of Present Illness Consent: Risks, benefits, and alternatives have been discussed and questions answered. Patient agrees to proceed with procedure. Chief complaint: neoplasm screening Narrative: Wyatt Madden is a 57 year old male here for first screening colonoscopy Review of Systems Constitutional: Constitutional: Denies headache(s) and Denies weakness Eyes: Eyes: Denies blurry vision ENT: Reports Normal hearing present, Denies headache(s) and Denies neck pain Cardiovascular: Cardiovascular: Denies chest pain and Denies dyspnea Respiratory: Respiratory: Denies dyspnea Gastrointestinal: Gastrointestinal: Reports no additional gastrointestinal complaints Genitourinary: Genitourinary: Denies dysuria Musculoskeletal: Musculoskeletal: Denies neck pain Integumentary/Breasts: Skin/Breast: Denies dry skin Neurologic: Reports Normal hearing present, Denies headache(s) and Denies weakness Psychiatric: Psychiatric: Denies anxiety Endocrine: Endocrine: Denies change in body appearance Hematologic/Lymphatic: Hematologic/Lymphatic: Denies easy bleeding Allergic/Immunologic: Allergic/Immunologic: Denies urticaria PMFSH Past Medical History Medical History Alcohol abuse Benign essential HTN Bipolar disorder with current episode depressed Chronic insomnia DJD of AC (acromioclavicular) joint Heart palpitations Impingement syndrome involving patellar fat pad of left knee Left knee injury Left knee pain Major depressive disorder, recurrent severe without psychotic features Medial meniscus tear Obstructive sleep apnea Prediabetes Restless legs syndrome Right shoulder pain Tobacco dependence Family History Family History Mother Family history of type 2 diabetes mellitus Patient's mother is Sibling Hypertension Other Cerebrovascular accident Family history of malignant neoplasm Social History Social History Social History: Smoking packs per day: 0.5 Smoking cigarettes per day: 10.0 Years smoked: 25 Smoking pack-years: 12.50 Smoking status: Former smoker Tobacco type: cigarettes Second hand tobacco smoke exposure: Yes Additional smoking assessment comments: Pt went back to smoking. 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[employer] Gender identity (if verbalized by the patient): Male Sexual Orientation (if Verbalized by the Patient): Straight or Heterosexual Spiritual care concerns: No Meds Home Medications and Allergies Home Medications Medication Instructions Recorded Confirmed Type quetiapine 50 mg tablet,extended 50 mg PO BID 11/22/21 01/26/23 History release 24 hr multivit with minerals-iron 18 1 tablet PO DAILY 02/17/22 01/26/23 History mg-folic ac 400 mcg-vit K 25 mcg tablet (Adults Multivitamin) aspirin 81 mg chewable tablet 81 mg PO DAILY 08/22/22 01/26/23 History bupropion HCl (smoking deter) 150 150 mg PO DAILY 08/22/22 01/26/23 History mg tablet,12 hr sustained-release(smoking deterrent) ropinirole 4 mg tablet 4 mg PO BID #180 tabs 10/16/22 01/26/23 Rx eszopiclone 3 mg tablet 3 mg PO QHS PRN insomnia #30 tabs 12/31/22 01/26/23 Rx diltiazem HCl 240 mg 240 mg PO DAILY 01/26/23 01/26/23 History capsule,extended release 24 hr metoprolo
[2023-01-26 08:52] VITALS: BP 127/71; PULSE 66; RESP 21; O2SAT 98
[2023-01-26 09:02] VITALS: BP 95/58; PULSE 64; RESP 22; O2SAT 98
[2023-01-26 09:12] VITALS: BP 114/65; PULSE 61; RESP 18; O2SAT 98
== END 2023-01-26 09:21 | disposition home or self-care (01) ==
PROVIDERS: PCP Family Medicine; Visit Provider Internal Medicine Gastroenterology
PROC: 0DJD8ZZ Inspection of Lower Intestinal Tract, Via Natural or Artificial Opening Endoscopic (ICD-10-PCS; CPT 45378; principal; 2023-01-26 09:00)
DX: Z12.11 Encounter for screening for malignant neoplasm of colon (principal); D12.4 Benign neoplasm of descending colon; K64.8 Other hemorrhoids; I10 Essential (primary) hypertension; F31.9 Bipolar disorder, unspecified; G47.00 Insomnia, unspecified; G47.33 Obstructive sleep apnea (adult) (pediatric); G25.81 Restless legs syndrome; R73.03 Prediabetes; Z79.82 Long term (current) use of aspirin; F17.210 Nicotine dependence, cigarettes, uncomplicated; E66.9 Obesity, unspecified
CPT/HCPCS: 45385; 88305; J2704; J7120

== ENCOUNTER 2023-01-30 14:35 | Emergency (ER) | payer OTHER, SELFPAY ==
--- NOTE | ~2023-01-30 | XR_ITS ---
EXAMINATION: XR finger 4th LT min 2V DATE: 01/30/2023 15:09 INDICATION: Table saw laceration to the middle left fourth digit TECHNIQUE: Dorsal palmar, lateral and 2 oblique views of the left fourth digit were obtained COMPARISON: None FINDINGS: Bandaging material about the left fourth digit with irregularity to the skin contour along the latera l side of the fourth middle phalanx consistent with provided history of a laceration. No acute fractu re. Small corticated ossicle at the tip of the ulnar styloid process most likely chronic nonunited av ulsion fracture fragment with differential including degenerative loose osteochondral body or heterot opic ossicle related to chronic soft tissue injury. Bone alignment and joint spaces are normal. No ra diopaque foreign bodies. IMPRESSION: 1. No acute osseous abnormality or radiopaque foreign bodies. Reviewed, dictated and finalized at location A.
[2023-01-30 14:38] VITALS: BP 139/66; PULSE 71; RESP 14; TEMP 36.2; O2SAT 98
--- NOTE | 2023-01-30 16:29 | ED.WOUNDLAC ---
HPI - Wound/Laceration General Chief Complaint: Wound/Laceration Stated Complaint: L hand finger lac Time Seen by Provider: 01/30/23 15:29 Source: patient Mode of arrival: ambulatory Limitations: no limitations History of Present Illness HPI narrative: Patient is a 57-year-old male who presents to the ED with report of laceration to his left fourth digit. Patient reports he was using a table saw and tried to reach over the table saw and accidentally clipped the top of the table saw, sustaining a skin avulsion/laceration to his right fourth digit flexor surface, near DIP joint. Patient with full range of motion of fingers. Denies any other injuries. Denies numbness or tingling. Tetanus status unknown. Related Data Home Medications Medication Instructions Recorded Confirmed quetiapine 50 mg tablet,extended 50 mg PO BID 11/22/21 01/26/23 release 24 hr multivit with minerals-iron 18 1 tablet PO DAILY 02/17/22 01/26/23 mg-folic ac 400 mcg-vit K 25 mcg tablet (Adults Multivitamin) aspirin 81 mg chewable tablet 81 mg PO DAILY 08/22/22 01/26/23 bupropion HCl (smoking deter) 150 150 mg PO DAILY 08/22/22 01/26/23 mg tablet,12 hr sustained-release(smoking deterrent) diltiazem HCl 240 mg 240 mg PO DAILY 01/26/23 01/26/23 capsule,extended release 24 hr metoprolol tartrate 25 mg tablet 50 mg PO BID 01/26/23 01/26/23 naltrexone 50 mg tablet 50 mg PO HS 01/26/23 01/26/23 Allergies Allergy/AdvReac Type Severity Reaction Status Date / Time No Known Allergies Allergy Verified 01/30/23 15:27 Review of Systems Review of Systems: CONSTITUTIONAL: Denies fever, chills, or sweats. SKIN: See HPI. MUSCULOSKELETAL: See HPI. NEUROLOGIC: Denies numbness, or weakness. All systems reviewed & are unremarkable except as noted in HPI and below PMFSH Past Medical History Medical History Alcohol abuse Benign essential HTN Bipolar disorder with current episode depressed Chronic insomnia DJD of AC (acromioclavicular) joint Heart palpitations Impingement syndrome involving patellar fat pad of left knee Left knee injury Left knee pain Major depressive disorder, recurrent severe without psychotic features Medial meniscus tear Obstructive sleep apnea Prediabetes Restless legs syndrome Right shoulder pain Tobacco dependence Family History Family History Mother Family history of type 2 diabetes mellitus Patient's mother is Sibling Hypertension Other Cerebrovascular accident Family history of malignant neoplasm Social History Social History Social History: Smoking packs per day: 0.5 Smoking cigarettes per day: 10.0 Years smoked: 25 Smoking pack-years: 12.50 Smoking status: Former smoker Tobacco type: cigarettes Second hand tobacco smoke exposure: Yes Additional smoking assessment comments: Pt went back to smoking. 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 HEAD: Normocephalic, atraumatic. NECK: Supple. No adenopathy, no masses. RESPIRATORY: [place]
[2023-01-30] MEDS: TETANUS,DIPHTHERIA,AC PERTUSSIS ADULT (0.5 ML) BOOSTRIX IM (17:04)
== END 2023-01-30 17:18 | disposition home or self-care (01) ==
PROVIDERS: Emergency Provider Physician Assistant; PCP Family Medicine
DX: S61.205D Unspecified open wound of left ring finger without damage to nail, subsequent encounter (principal); I10 Essential (primary) hypertension; Z87.891 Personal history of nicotine dependence; Z23 Encounter for immunization; W27.0XXA Contact with workbench tool, initial encounter
CPT/HCPCS: 73140; 90471; 90715; 99283

== ENCOUNTER 2023-02-07 07:51 | Outpatient (CLI) | payer OTHER, SELFPAY ==
[2023-02-07 08:11] LABS: Basophils Absolute Auto 0.1 K/mm3 (0.0-0.1); Basophils Percent Auto 0.5 % (0.2-1.2); Eosinophils Absolute Auto 0.1 K/mm3 (0-0.3); Eosinophils Percent Auto 1.4 % (0-4.4); Hemoglobin 14.9 g/dL (14.0-18.0); Immature Granulocyte Absolute 0.04 K/mm3 (0.00-0.031); Immature Granulocyte Percent A 0.4 % (0-0.5); Lymphocytes Absolute Auto 3.29 K/mm3 (0.9-3.2); Lymphocytes Percent Auto 32.4 % (18.3-44.2); Mean Corpuscular HGB Conc 34.7 g/dl (32-36); Mean Corpuscular Volume 86.5 fl (80-100); Mean Platelet Volume 9.9 fl (7.4-10.4); Monocytes Absolute Auto 0.7 K/mm3 (0.1-0.6); Monocytes Percent Auto 7.1 % (2.6-8.5); Neutrophils Absolute Auto 5.9 K/mm3 (1.3-6.7); Neutrophils Percent Auto 58.2 % (45.5-73.1); Platelet Count Result 170 k/mm3 (150-375); Red Blood Count 4.97 M/mm3 (4.6-6.20); Red Cell Distribution Width 13.4 % (11.5-14.5); White Blood Count 10.2 K/mm3 (4.5-10.0)
[2023-02-07 08:20] LABS: Alanine Aminotransferase 21 U/L (6-50); Albumin Level 4.2 g/dL (3.5-5.1); Alkaline Phosphatase 75 U/L (38-126); Anion Gap 4 mmol/L (8-16); Aspartate Amino Transferase 20 U/L (17-59); Bilirubin,Total 0.5 mg/dL (0.2-1.3); Blood Urea Nitrogen 14 mg/dL (9-20); Calcium 8.6 mg/dL (8.4-10.2); Carbon Dioxide 25 mmol/L (22-30); Chloride 107 mmol/L (98-107); Estimated Glomerular Filt Rate > 60; Glucose 122 mg/dL (65-110); Potassium 4.1 mmol/L (3.4-5.0); Sodium 136 mmol/L (137-145)
[2023-02-07 11:29] LABS: Hemoglobin A1C 5.8 % (<5.7)
== END 2023-02-07 07:52 | disposition home or self-care (01) ==
LOC: ANHLAB 07:54
PROVIDERS: PCP Family Medicine; Visit Provider Physician Assistant
DX: E11.9 Type 2 diabetes mellitus without complications (principal); E78.2 Mixed hyperlipidemia
CPT/HCPCS: 36415; 80053; 83036; 85025

== ENCOUNTER 2023-04-05 13:17 | Emergency (ER) | payer OTHER, SELFPAY ==
[2023-04-05 13:39] VITALS: BP 113/58; PULSE 54; RESP 18; TEMP 36.3; O2SAT 99
--- NOTE | 2023-04-05 14:27 | ED.SKABFB ---
HPI - Skin/Abscess/Foreign Bdy General Chief complaint: Ear Stated complaint: skin tear rt foot,bilateral ear discomfort Time Seen by Provider: 04/05/23 14:09 Source: patient, family () and RN notes reviewed Mode of arrival: ambulatory Limitations: no limitations History of Present Illness HPI narrative: Patient presents today complaining of a crack on the bottom of his foot x2 days that is painful is mostly with walking. States that his feet have been moist and he has been outside frequently in the heat. He also reports feeling that the bottom of his foot is swollen. States he recently started taking medication for diabetes. Related Data Home Medications Medication Instructions Recorded Confirmed quetiapine 50 mg tablet,extended 50 mg PO BID 11/22/21 04/05/23 release 24 hr aspirin 81 mg chewable tablet 81 mg PO DAILY 08/22/22 04/05/23 bupropion HCl (smoking deter) 150 150 mg PO DAILY 08/22/22 04/05/23 mg tablet,12 hr sustained-release(smoking deterrent) naltrexone 50 mg tablet 50 mg PO HS 01/26/23 04/05/23 Allergies Allergy/AdvReac Type Severity Reaction Status Date / Time No Known Allergies Allergy Verified 02/10/23 11:11 Review of Systems Review of Systems: CONSTITUTIONAL: Denies body aches, fever, chills, or sweats. EYES: Denies visual changes, redness, or discharge. ENT: Denies rhinorrhea, congestion, sore throat, or otalgia. CARDIOVASCULAR: Denies chest pain, palpitations, or edema. RESPIRATORY: Denies cough or dyspnea. GASTROINTESTINAL: Denies abdominal pain, nausea, vomiting, or diarrhea. GENITOURINARY: Denies dysuria or hematuria. SKIN: + crack on bottom of right foot MUSCULOSKELETAL: Denies back pain, joint pain, or myalgia. NEUROLOGIC: Denies headache, numbness, tingling, or weakness. PSYCH: Denies depression or anxiety. [facility] Past Medical History Medical History Acute bacterial bronchitis Acute maxillary sinusitis, unspecified Acute non-recurrent frontal sinusitis Alcohol abuse Alcohol abuse Atrial fibrillation with RVR Benign essential HTN Bipolar disorder with current episode depressed Cervical radiculopathy Chest pain on exertion Chronic insomnia Colon cancer screening Complicated grieving COPD exacerbation Diabetes mellitus, new onset Dietary counseling and surveillance (04/28/18) Disappearance and of family member DJD of AC (acromioclavicular) joint Dysfunction of both eustachian tubes Epidermal inclusion cyst Fear of heights Groin ringworm Heart palpitations Hx of supraventricular tachycardia Hyperlipidemia type III Impingement syndrome involving patellar fat pad of left knee Infective tonsillitis Left knee injury Left knee pain Lesion of finger Major depressive disorder, recurrent severe without psychotic features Medial meniscus tear Nicotine dependence, unspecified, uncomplicated Obstructive sleep apnea Panic disorder Postural dizziness with presyncope Prediabetes Psychophysiological insomnia Restless legs syndrome Right shoulder pain Sebaceous cyst SVT (supraventricular tachycardia) Tobacco abuse Tobacco dependence Viral URI Vitamin D deficiency Weight gain Family History Family History Mother Family history of type 2 diabetes mellitus Patient's mother is Sibling Hypertension Other Cerebrovascular accident Family history of malignant neoplasm Social History Social History Social History: Smoking packs per day: 0.5 Smoking cigarettes per day: 10.0 Years smoked: 25 Smoking pack-years: 12.50 Smoking status: Former smoker Tobacco type: cigarettes Second hand tobacco smoke exposure: Yes Additional smoking assessment comments: Pt went back to smoking. Alcohol intake: never Substance use: never Substance u
== END 2023-04-05 14:36 | disposition home or self-care (01) ==
PROVIDERS: Emergency Provider Nurse Practitioner; PCP Family Medicine
DX: S91.301A Unspecified open wound, right foot, initial encounter (principal); T14.90XA Injury, unspecified, initial encounter; E11.9 Type 2 diabetes mellitus without complications; I48.91 Unspecified atrial fibrillation; I10 Essential (primary) hypertension; E55.9 Vitamin D deficiency, unspecified; Z87.891 Personal history of nicotine dependence; Z79.82 Long term (current) use of aspirin
CPT/HCPCS: 99213; G0463

== ENCOUNTER 2023-06-27 07:58 | Outpatient (CLI) | payer OTHER, SELFPAY ==
[2023-06-27 08:39] LABS: Alanine Aminotransferase 18 U/L (6-50); Alanine Aminotransferase 19 U/L (6-50); Albumin Level 4.1 g/dL (3.5-5.1); Alkaline Phosphatase 64 U/L (38-126); Anion Gap 8 mmol/L (8-16); Aspartate Amino Transferase 22 U/L (17-59); Aspartate Amino Transferase 30 U/L (17-59); Bilirubin,Total 0.8 mg/dL (0.2-1.3); Blood Urea Nitrogen 9 mg/dL (9-20); Calcium 8.8 mg/dL (8.4-10.2); Carbon Dioxide 27 mmol/L (22-30); Chloride 104 mmol/L (98-107); Cholesterol 147 mg/dL (0-200); Estimated Glomerular Filt Rate > 60; Glucose 127 mg/dL (65-110); HDL Direct 37 mg/dL; Potassium 3.9 mmol/L (3.4-5.0); Sodium 139 mmol/L (137-145); Triglycerides 132 mg/dL (<150)
[2023-06-27 08:50] LABS: LDL Cholesterol Direct 85 mg/dL
== END 2023-06-27 07:59 | disposition home or self-care (01) ==
PROVIDERS: PCP Family Medicine; Referring Provider Podiatrist Foot & Ankle Surgery; Visit Provider Family Medicine
DX: E78.2 Mixed hyperlipidemia (principal); I10 Essential (primary) hypertension; B35.1 Tinea unguium
CPT/HCPCS: 36415; 80053; 80061; 84450; 84460

== ENCOUNTER → 2023-07-31 10:50 | Outpatient (CLI) | payer OTHER, SELFPAY ==
--- NOTE | ~2023-07-31 | CT_ITS ---
EXAMINATION: CT lung screening DATE: 07/31/2023 11:02 INDICATION: Personal history of nicotine dependence TECHNIQUE: Computed tomography (CT) of the chest was performed without intravenous contrast. The dose -length product was 139.73 mGy-cm. Automated exposure control and iterative reconstruction technique were employed. COMPARISON: None FINDINGS: No significant pleural or pericardial effusion. No thoracic lymphadenopathy. There is ather osclerosis of the aorta without aneurysm. Upper abdomen is unremarkable. There is emphysema. No endob ronchial lesion. No pneumothorax. No focal airspace consolidation. 2 mm right upper lobe nodule. Mild thoracic spondylosis with accentuated kyphosis. IMPRESSION: 1. Lung-RADS category 2: Benign appearance or behavior. Continue annual screening with noncontrast lo w-dose chest CT in 12 months. Reviewed, dictated and finalized at location A. [place] IMPRESSION: 1. Lung-RADS category 2: Benign appearance or behavior. Continue annual screeni ng with noncontrast low-dose chest CT in 12 months.
== END ==
PROVIDERS: PCP Family Medicine; Visit Provider Family Medicine
DX: Z12.2 Encounter for screening for malignant neoplasm of respiratory organs (principal); Z87.891 Personal history of nicotine dependence
CPT/HCPCS: 71271

== ENCOUNTER 2023-09-21 10:38 | Outpatient (CLI) | payer OTHER, SELFPAY ==
[2023-09-21 11:10] LABS: Alanine Aminotransferase 21 U/L (6-50); Aspartate Amino Transferase 30 U/L (17-59)
== END 2023-09-21 10:39 | disposition home or self-care (01) ==
LOC: ANHLAB 10:41
PROVIDERS: PCP Family Medicine; Visit Provider Podiatrist Foot & Ankle Surgery
DX: B35.1 Tinea unguium (principal)
CPT/HCPCS: 36415; 84450; 84460

== ENCOUNTER 2024-01-06 07:24 | Outpatient (CLI) | payer OTHER, SELFPAY ==
[2024-01-06 08:23] LABS: Alanine Aminotransferase 14 U/L (6-50); Aspartate Amino Transferase 26 U/L (17-59)
== END 2024-01-06 07:25 | disposition home or self-care (01) ==
LOC: ANHLAB 07:27
PROVIDERS: PCP Family Medicine; Visit Provider Podiatrist Foot & Ankle Surgery
DX: B35.1 Tinea unguium (principal)
CPT/HCPCS: 36415; 84450; 84460

== ENCOUNTER 2024-01-23 08:49 | Outpatient (CLI) | payer OTHER, SELFPAY ==
[2024-01-23 09:51] LABS: Basophils Percent Auto 0.3 % (0.2-1.2); Eosinophils Absolute Auto 0.1 K/mm3 (0-0.3); Eosinophils Percent Auto 0.8 % (0-4.4); Hematocrit 40.9 % (42.0-52.0); Hemoglobin 14.1 g/dL (14.0-18.0); Immature Granulocyte Absolute 0.03 K/mm3 (0.00-0.031); Immature Granulocyte Percent A 0.3 % (0-0.5); Immature Platelet Fraction Pct 3.3 % (0.9-11.2); Lymphocytes Percent Auto 26.6 % (18.3-44.2); Mean Corpuscular HGB Conc 34.5 g/dl (32-36); Mean Corpuscular Hemoglobin 30.1 pg (26-34); Mean Corpuscular Volume 87.4 fl (80-100); Mean Platelet Volume 10.2 fl (7.4-10.4); Monocytes Absolute Auto 0.5 K/mm3 (0.1-0.6); Monocytes Percent Auto 5.6 % (2.6-8.5); Neutrophils Absolute Auto 5.7 K/mm3 (1.3-6.7); Neutrophils Percent Auto 66.4 % (45.5-73.1); Platelet Count Result 123 k/mm3 (150-375); Red Blood Count 4.68 M/mm3 (4.6-6.20); Red Cell Distribution Width 13.8 % (11.5-14.5); White Blood Count 8.6 K/mm3 (4.5-10.0)
[2024-01-23 09:57] LABS: Alanine Aminotransferase 13 U/L (6-50); Albumin Level 4.4 g/dL (3.5-5.1); Alkaline Phosphatase 54 U/L (38-126); Anion Gap 9 mmol/L (4-12); Aspartate Amino Transferase 18 U/L (17-59); Bilirubin,Total 0.8 mg/dL (0.2-1.3); Blood Urea Nitrogen 11 mg/dL (9-20); Calcium 9.1 mg/dL (8.4-10.2); Carbon Dioxide 24 mmol/L (22-30); Chloride 106 mmol/L (98-107); Cholesterol 138 mg/dL (0-200); Estimated Glomerular Filt Rate > 60; Glucose 128 mg/dL (65-110); HDL Direct 38 mg/dL; Potassium 3.9 mmol/L (3.4-5.0); Sodium 139 mmol/L (137-145); Triglycerides 134 mg/dL (<150)
[2024-01-23 10:09] LABS: LDL Cholesterol Direct 82 mg/dL
[2024-01-23 10:25] LABS: Prostate Specific Antigen 0.7 ng/mL (< OR = 4.0)
== END 2024-01-23 08:50 | disposition home or self-care (01) ==
LOC: ANHLAB 08:51
PROVIDERS: PCP Family Medicine; Visit Provider Physician Assistant
DX: E78.5 Hyperlipidemia, unspecified (principal); G47.00 Insomnia, unspecified; B35.1 Tinea unguium; Z12.5 Encounter for screening for malignant neoplasm of prostate
CPT/HCPCS: 36415; 80053; 80061; 84153; 85025; 85055; G0103

== ENCOUNTER 2024-02-20 08:03 | Outpatient (CLI) | payer OTHER, SELFPAY ==
[2024-02-20 08:58] LABS: Basophils Percent Auto 0.3 % (0.2-1.2); Eosinophils Absolute Auto 0.1 K/mm3 (0-0.3); Eosinophils Percent Auto 1.3 % (0-4.4); Hematocrit 41.9 % (42.0-52.0); Hemoglobin 14.3 g/dL (14.0-18.0); Immature Granulocyte Absolute 0.02 K/mm3 (0.00-0.031); Immature Granulocyte Percent A 0.2 % (0-0.5); Immature Platelet Fraction Pct 2.8 % (0.9-11.2); Lymphocytes Percent Auto 25.6 % (18.3-44.2); Mean Corpuscular HGB Conc 34.1 g/dl (32-36); Mean Corpuscular Hemoglobin 30.2 pg (26-34); Mean Corpuscular Volume 88.6 fl (80-100); Mean Platelet Volume 10.3 fl (7.4-10.4); Monocytes Absolute Auto 0.4 K/mm3 (0.1-0.6); Monocytes Percent Auto 4.8 % (2.6-8.5); Neutrophils Absolute Auto 5.8 K/mm3 (1.3-6.7); Neutrophils Percent Auto 67.8 % (45.5-73.1); Platelet Count Result 144 k/mm3 (150-375); Red Blood Count 4.73 M/mm3 (4.6-6.20); Red Cell Distribution Width 14.1 % (11.5-14.5); White Blood Count 8.6 K/mm3 (4.5-10.0)
[2024-02-20 09:09] LABS: Alanine Aminotransferase 14 U/L (6-50); Albumin Level 4.5 g/dL (3.5-5.1); Alkaline Phosphatase 56 U/L (38-126); Anion Gap 8 mmol/L (4-12); Aspartate Amino Transferase 21 U/L (17-59); Bilirubin,Total 0.8 mg/dL (0.2-1.3); Blood Urea Nitrogen 10 mg/dL (9-20); Calcium 9.1 mg/dL (8.4-10.2); Carbon Dioxide 27 mmol/L (22-30); Chloride 104 mmol/L (98-107); Estimated Glomerular Filt Rate > 60; Glucose 103 mg/dL (65-110); Sodium 139 mmol/L (137-145)
== END 2024-02-20 08:04 | disposition home or self-care (01) ==
LOC: ANHLAB 08:06
PROVIDERS: PCP Family Medicine; Visit Provider Internal Medicine Cardiovascular Disease
DX: I35.0 Nonrheumatic aortic (valve) stenosis (principal)
CPT/HCPCS: 36415; 80053; 85025; 85055

== ENCOUNTER 2024-03-08 10:45 | Observation (INO) | payer OTHER, SELFPAY ==
[2024-03-08] VITALS (13 sets, daily range): BP systolic 117–137; BP diastolic 45–92; PULSE 51–69; RESP 13–23; TEMP 36.7–36.9; O2SAT 96–100; BMI 24.4
--- NOTE | ~2024-03-08 | MR_ITS ---
MRI of the brain Clinical History: TIA, unsteady gait Technique: Axial and sagittal T1-weighted images were acquired. These were followed by axial T2-weigh milady, diffusion weighted, gradient, and FLAIR images. Following intravenous administration of 16 cc Mu ltiHance gadolinium, T1-weighted fat-sat imaging was performed in the axial and coronal planes. COMPARISON: 02/17/2022 Findings: There is no abnormal signal in the brain parenchyma. No acute infarct, intracranial hemorrh age, or mass lesion. Ventricles and subarachnoid spaces are unremarkable. Orbits are unremarkable. Paranasal sinuses and m astoid air cells are clear. Major intracranial flow voids appear intact. Sagittal midline structures are intact. No abnormal postcontrast enhancement seen. IMPRESSION: Unremarkable exam. Reviewed, dictated and finalized at location M. IMPRESSION: Unremarkable exam.
--- NOTE | ~2024-03-08 | XR_ITS ---
EXAMINATION: XR chest 1V portable DATE: 03/08/2024 11:34 INDICATION: Left hemiparesis. TECHNIQUE: A single frontal view of the chest was obtained. COMPARISON: Chest 2 views 08/19/2022 FINDINGS: There is no pneumonia, pleural effusion, or pneumothorax. The heart size is normal. IMPRESSION: 1. No acute cardiopulmonary disease. Reviewed, dictated and finalized at location A.
--- NOTE | ~2024-03-08 | CT_ITS ---
CT brain wo con Ordering provider: Shawn Murray MD History: 58 years Male with . cva . Comparison: February 16, 2022 Technique: CT of the head without contrast. Radiation reduction technique utilized. DLP is 605.33 mGy-cm. FINDINGS: BRAIN PARENCHYMA AND CSF SPACES: No midline shift, mass effect or hemorrhage. The brain parenchyma a nd CSF spaces are otherwise normal. VISUALIZED PARANASAL SINUSES: Well aerated. MASTOIDS: Minimally aerated. BONES: The bones appear intact. SOFT TISSUES: Visualized nasopharynx is normal. Superficial soft tissues are normal. IMPRESSION: No acute intracranial findings. Reviewed, dictated and finalized at location A.
--- NOTE | ~2024-03-08 | CT_ITS ---
EXAMINATION: CTA brain carotid DATE: 03/08/2024 11:11 INDICATION: Left lower extremity weakness. TECHNIQUE: Computed tomographic angiography (CTA) of the head was performed with 100 mL Omnipaque-350 intravenous contrast. CTA of the neck was performed with intravenous contrast. Automated exposure co ntrol and iterative reconstruction technique were employed. The dose-length product was 1310.95 mGy-c m. Maximum intensity projection and volume rendered 3D-reconstructions were created by the technologi st on a separate workstation. COMPARISON: Head CT 03/08/2024 FINDINGS: HEAD CTA: There is no intracranial hemorrhage, acute infarction, or abnormal intracranial mass lesion . The ventricles are normal in size. The paranasal sinuses are clear. The mastoid air cells are anderson l. The orbits are normal. Left vertebral artery is dominant. There is no significant stenosis of basi lar artery or the posterior cerebral arteries. There is no significant stenosis of the intracranial i nternal carotid arteries or anterior or middle cerebral arteries. Anterior communicating artery is no rmal. The posterior communicating arteries are normal. There is no aneurysm. NECK CTA: There is mild emphysema. There are no pathologically enlarged lymph nodes. There is no sign ificant stenosis of the vertebral arteries. There is plaque in the proximal internal carotid arteries . There is 38% stenosis of the proximal right internal carotid artery relative to normal distal arter y lumen diameter (NASCET criteria). There is 11% stenosis of the proximal left internal carotid arter y relative to normal distal artery lumen diameter. There is severe cervical spondylosis. IMPRESSION: 1. Normal brain. No aneurysm or significant intracranial arterial stenosis. 2. 38% stenosis of the proximal right internal carotid artery relative to normal distal artery lumen diameter (NASCET criteria). 3. 11% stenosis of the proximal left internal carotid artery relative to normal distal artery lumen d iameter. Reviewed, dictated and finalized at location A. IMPRESSION: 1. Normal brain. No aneurysm or significant intracranial arterial stenosis. 2. 38% stenosis of the proximal right internal carotid artery relative to anderson l distal artery lumen diameter (NASCET criteria). 3. 11% stenosis of the proximal left internal carotid artery relative to normal distal artery lumen diameter.
--- NOTE | 2024-03-08 10:47 | ECG_ITS ---
Test Date: 2024-03-08 11:16:24 Measurements Intervals Kenneth Rate: 62 P: 68 TX: 192 QRS: 53 QRSD: 107 T: 49 QT: 409 QTc: 416 Interpretive Statements SINUS RHYTHM No previous ECG available for comparison Electronically Signed On 03-08-2024 14:51:13 CDT by Trey Wooten M.D.
[2024-03-08 11:16] LABS: Glucose Point of Care 151 mg/dl (65-105)
[2024-03-08 11:23] LABS: Basophils Absolute Auto 0.1 K/mm3 (0.0-0.1); Basophils Percent Auto 0.7 % (0.2-1.2); Eosinophils Absolute Auto 0.1 K/mm3 (0-0.3); Eosinophils Percent Auto 1.1 % (0-4.4); Hematocrit 40.9 % (42.0-52.0); Hemoglobin 14.1 g/dL (14.0-18.0); Immature Granulocyte Absolute 0.02 K/mm3 (0.00-0.031); Immature Granulocyte Percent A 0.3 % (0-0.5); Immature Platelet Fraction Pct 2.4 % (0.9-11.2); Lymphocytes Absolute Auto 2.58 K/mm3 (0.9-3.2); Lymphocytes Percent Auto 34.2 % (18.3-44.2); Mean Corpuscular HGB Conc 34.5 g/dl (32-36); Mean Corpuscular Hemoglobin 30.5 pg (26-34); Mean Corpuscular Volume 88.5 fl (80-100); Mean Platelet Volume 9.9 fl (7.4-10.4); Monocytes Absolute Auto 0.5 K/mm3 (0.1-0.6); Neutrophils Absolute Auto 4.4 K/mm3 (1.3-6.7); Neutrophils Percent Auto 57.7 % (45.5-73.1); Platelet Count Result 132 k/mm3 (150-375); Red Blood Count 4.62 M/mm3 (4.6-6.20); Red Cell Distribution Width 13.9 % (11.5-14.5); White Blood Count 7.5 K/mm3 (4.5-10.0)
--- NOTE | 2024-03-08 11:25 | ED.NEUROSD ---
HPI - Neuro Symptoms/Deficit General Chief Complaint: Suspected CVA Stated Complaint: cva Time Seen by Provider: 03/08/24 11:03 History of Present Illness HPI Narrative: 58-year-old male presenting to the emergency department for evaluation for TIA versus CVA. At approximately 10:30 a.m. patient had onset left-sided arm numbness and weakness. 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 Patient states that symptoms were persistent until he arrived to the emergency department at approximately 10:50 a.m. At time of evaluation patient states he is significantly improved. Patient states he does still have some tingling but denies any other significant complaints Related Data Home Medications Medication Instructions Recorded Confirmed aspirin 81 mg chewable tablet 81 mg PO DAILY 08/22/22 03/08/24 naltrexone 50 mg tablet 50 mg PO HS 01/26/23 03/08/24 bupropion HCl 150 mg PO DAILY 03/08/24 03/08/24 diltiazem HCl 240 mg 240 mg PO HS 03/08/24 03/08/24 capsule,extended release 24 hr metoprolol tartrate 25 mg tablet 25 mg PO BID 03/08/24 03/08/24 ropinirole 4 mg tablet 4 mg PO BID PRN Restless legs 03/08/24 03/08/24 rosuvastatin 10 mg tablet 10 mg PO HS 03/08/24 03/08/24 Allergies Allergy/AdvReac Type Severity Reaction Status Date / Time No Known Allergies Allergy Verified 03/08/24 11:17 Review of Systems Review of Systems: All systems reviewed & are unremarkable except as noted in HPI and below PMFSH Past Medical History Medical History Acute bacterial bronchitis Acute maxillary sinusitis, unspecified Acute non-recurrent frontal sinusitis Alcohol abuse Alcohol abuse Atrial fibrillation with RVR Benign essential HTN Bipolar disorder with current episode depressed Cervical radiculopathy Chest pain on exertion Chronic insomnia Colon cancer screening Complicated grieving COPD exacerbation Diabetes mellitus, new onset Dietary counseling and surveillance (04/28/18) Disappearance and of family member DJD of AC (acromioclavicular) joint Dysfunction of both eustachian tubes Epidermal inclusion cyst Fear of heights Groin ringworm Heart palpitations Hx of supraventricular tachycardia Hyperlipidemia type III Impingement syndrome involving patellar fat pad of left knee Infective tonsillitis Left knee injury Left knee pain Lesion of finger Major depressive disorder, recurrent severe without psychotic features Medial meniscus tear Nicotine dependence, unspecified, uncomplicated Obstructive sleep apnea Panic disorder Postural dizziness with presyncope Prediabetes Psychophysiological insomnia Restless legs syndrome Right shoulder pain Sebaceous cyst SVT (supraventricular tachycardia) Tobacco abuse Tobacco dependence Viral URI Vitamin D deficiency Weight gain Family History Family History Mother Family history of type 2 diabetes mellitus Patient's mother is Sibling Hypertension Other Cerebrovascular accident Family history of malignant neoplasm Social History Social History Social History: Smoking packs per day: 1 Smoking cigarettes per day: 20.0 Years smoked: 30 Smoking pack-years: 30.00 Smoking status: Current every day smoker Tobacco type: cigarettes Second hand tobacco smoke exposure: No Alcohol intake: former Substance use: current Substance use type: marijuana Last use: 03/07/24 Do You Feel Safe in your Home?: Yes Lack of Transportation: No Lack of Food: Never True Current Housing: I Have Housing Concerned About Future Housing: No Difficulty Paying Gas/Electric Bills: No Difficulty Paying for Meds: No Currently Unemployed: No Education: Decline to Answer Difficulty w/ Childcare or Family Care: No Living arrangements: with family Occupation/E
[2024-03-08 11:36] LABS: Alanine Aminotransferase 15 U/L (6-50); Albumin Level 4.5 g/dL (3.5-5.1); Alkaline Phosphatase 47 U/L (38-126); Anion Gap 9 mmol/L (4-12); Aspartate Amino Transferase 22 U/L (17-59); Bilirubin,Total 0.7 mg/dL (0.2-1.3); Blood Urea Nitrogen 8 mg/dL (9-20); Calcium 8.9 mg/dL (8.4-10.2); Carbon Dioxide 25 mmol/L (22-30); Chloride 105 mmol/L (98-107); Estimated Glomerular Filt Rate > 60; Glucose 153 mg/dL (65-110); Potassium 4.2 mmol/L (3.4-5.0); Sodium 139 mmol/L (137-145)
[2024-03-08] MEDS: ASPIRIN 81 MG CHEWABLE TABLET 324 MG PO (11:37)
[2024-03-08 11:47] LABS: INR 0.9; Prothrombin Time 12.8 Seconds (11.1-14.7)
[2024-03-08 11:48] LABS: Partial Thromboplastin Time 26.9 Seconds (22.3-36.8); Troponin I < 0.012 ng/mL (0.000-0.034)
[2024-03-08 12:28] LABS: Hemoglobin A1C 5.7 % (<5.7)
[2024-03-08 12:37] LABS: LDL Cholesterol Direct 62 mg/dL
--- NOTE | 2024-03-08 13:10 | PM.IMHP ---
H&P: HPI History of Present Illness Date/Time: 03/08/24 13:10 Chief Complaint: Stroke versus TIA Narrative: This is a 58-year-old male patient past history atrial fibrillation hypertension depression aortic valve sclerosis who is supposed undergo aortic valve replacement in 2 weeks at [place] who has presented to the hospital today with sudden onset left-sided extremity weakness both upper and lower extremity, tingling to the left side face, numbness and tingling to his left arm and altered ambulation. Patient states that he was sitting in a meeting when the symptoms were sudden onset. He notes that with the symptom onset he had moment of anxiety. By the time he arrived to the emergency department symptoms had mostly resolved. Examination in the emergency department review mildly elevated glucose on labs, negative CT noncontrast and CT was completed with no large vessel occlusion. Patient is not on anticoagulation at this time. He does take a baby aspirin daily and received 324 mg aspirin in the emergency department. Consultation with Neurology at [place] stated the patient did not need to be transferred but could undergo workup at this facility. At time of my evaluation only remaining symptom is some subjective weakness to left upper extremity. I spoke to a nurse practitioner in the office of Cardiothoracic surgery for Dr. Baldwin who is the surgeon plans to perform valve replacement. The CAFE ASSISTANT stated that surgery would have to be canceled and rescheduled. She advised to anticoagulate patient upon discharge. Review of Systems Review of Systems: All systems reviewed & are unremarkable except as noted in HPI and below PMFSH Past Medical History Medical History Acute bacterial bronchitis Acute maxillary sinusitis, unspecified Acute non-recurrent frontal sinusitis Alcohol abuse Alcohol abuse Atrial fibrillation with RVR Benign essential HTN Bipolar disorder with current episode depressed Cervical radiculopathy Chest pain on exertion Chronic insomnia Colon cancer screening Complicated grieving COPD exacerbation Diabetes mellitus, new onset Dietary counseling and surveillance (04/28/18) Disappearance and of family member DJD of AC (acromioclavicular) joint Dysfunction of both eustachian tubes Epidermal inclusion cyst Fear of heights Groin ringworm Heart palpitations Hx of supraventricular tachycardia Hyperlipidemia type III Impingement syndrome involving patellar fat pad of left knee Infective tonsillitis Left knee injury Left knee pain Lesion of finger Major depressive disorder, recurrent severe without psychotic features Medial meniscus tear Nicotine dependence, unspecified, uncomplicated Obstructive sleep apnea Panic disorder Postural dizziness with presyncope Prediabetes Psychophysiological insomnia Restless legs syndrome Right shoulder pain Sebaceous cyst SVT (supraventricular tachycardia) Tobacco abuse Tobacco dependence Viral URI Vitamin D deficiency Weight gain Family History Family History Mother Family history of type 2 diabetes mellitus Patient's mother is Sibling Hypertension Other Cerebrovascular accident Family history of malignant neoplasm Social History Social History Social History: Smoking packs per day: 0.5 Smoking cigarettes per day: 10.0 Years smoked: 30 Smoking pack-years: 15.00 Smoking status: Current every day smoker Tobacco type: cigarettes Second hand tobacco smoke exposure: Yes Alcohol intake: never Substance use: never Substance use type: does not use Do You Feel Safe in your Home?: Yes Lack of Transportation: No Lack of Food: Never True Current Housing: I Have Housing Concerned About Future Housing: No Difficulty Paying Gas/Electric Bills: No Difficulty Payi
--- NOTE | 2024-03-08 13:50 | ADMGEN ---
This patient, Wyatt Madden, was admitted to [facility] Surg Room 329-01. Patient/family oriented to hospital policies and general routines including ID bracelet, bed and alarms, visiting hours, pain management, procedures, bathroom and other care routines, personal items, smoking policy, room service/diet, and visiting hours. Information on how to activate the Rapid Response Team has been discussed. Patient/Family are encouraged to report perceived risks to care and to ask questions if they do not understand what they are told or what they should do.
[2024-03-08] MEDS: rOPINIRole HCL 1 MG TABLET 4 MG PO (15:50)
[2024-03-08] MEDS: buPROPion HCL SR (12 HR) 150 MG TAB PO (16:34)
[2024-03-08] MEDS: WARFARIN (*PBKC) 5 MG TABLET PO (18:41)
--- NOTE | 2024-03-08 20:48 | PHAR ---
RX [id number] IDENTIFIED TO CONTAIN Drug Name: Eszopiclone Ingredients: Eszopiclone -- 3 MG Color: Blue Shape: [place] Imprint: 93 ; E9 Imprint Code Description: Imprinted 93 on one side and E9 on the other side
[2024-03-08] MEDS: METOPROLOL TARTRATE 25 MG TABLET PO (21:10)
[2024-03-08] MEDS: ROSUVASTATIN 10 MG TABLET PO (21:10)
[2024-03-08] MEDS: dilTIAZem HCL CD 240 MG CAP.24HR PO (21:10)
[2024-03-08] MEDS: QUEtiapine FUMARATE XR 50 MG TAB.ER.24H PO (21:10)
[2024-03-09] VITALS (11 sets, daily range): BP systolic 123–145; BP diastolic 61–65; PULSE 53–68; RESP 16–18; TEMP 36.7–36.9; O2SAT 96–100
--- NOTE | 2024-03-09 | ECHO_ITS ---
Patient Info Name: Wyatt Madden Age: 58 years : 1965 Gender: Male Ht: 72 in Wt: 180 lbs BSA: 2.04 m2 HR: 61 bpm BP: 123 / 61 mmHg Heart Rhythm: Sinus Rhythm Technical Quality: Good Exam Date: 03/09/2024 8:02 AM Exam Location: Echo Lab Patient Status: Inpatient Admit Date: 03/08/2024 Staff Ordering Physician: Cade Chandler APRN It Network Architect: Osmin Ludwig RDCS Attending Provider: Aletha Carrera PA-C Referring Physician: Ramesh DONAHUE; Exam Type: CA echo doppler w bubble study Study Info Indications - Hx of afib and AV disease - r/o PFO - TIA Complete two-dimensional, color flow and Doppler transthoracic echocardiogram is performed with agitated saline. Contrast/Agitated Saline Contrast/Ag. Saline: Agitated Saline Amount: 9.00 ml Existing IV Access: Yes Summary 1. Left ventricular chamber dimension is normal. 2. Left ventricular systolic function is normal, estimated at 65-70%. 3. The left ventricular diastolic function is grade I diastolic dysfunction. 4. Right ventricular systolic function is normal. 5. Intact interatrial septum visualized by color flow and agitated saline imaging. Negative bubble study. 6. There is severe aortic valve calcification. 7. There is severe aortic valve stenosis with a peak velocity of 441 cm/s, mean gradient of 33 mmHg, and aortic valve area of 1.0 cm2. 8. There is mild tricuspid valve regurgitation. Left Ventricle Left ventricular chamber dimension is normal. Left ventricular systolic function is normal, estimated at 65-70%. There is no increased left ventricular wall thickness. The left ventricular diastolic function is grade I diastolic dysfunction. Right Ventricle Right ventricular chamber dimension is normal. Right ventricular systolic function is normal. Left Atria Left atrial chamber dimension is normal. Right Atria Right atrial chamber dimension is normal. Atrial Septum Intact interatrial septum visualized by color flow and agitated saline imaging. Negative bubble study. Aortic Valve The aortic valve is probable trileaflet. There is severe aortic valve stenosis with a peak velocity of 441 cm/s, mean gradient of 33 mmHg, and aortic valve area of 1.0 cm2. There is no aortic valve regurgitation. There is severe aortic valve calcification. Pulmonic Valve The pulmonic valve is not well visualized. Mitral Valve There is trace mitral valve regurgitation. Tricuspid Valve There is mild tricuspid valve regurgitation. Pericardium/Pleural There is no pericardial effusion. Inferior Vena Cava Normal inferior vena cava with >50% collapse upon inspiration consistent with normal right atrial pressure, 3 mmHg. Aorta The aortic root size at the sinus of Valsalva is normal. Left Ventricular Outflow Tract Name Value Normal LVOT 2D LVOT Diameter 2.1 cm LVOT Doppler LVOT Peak Gradient 6 mmHg LVOT Mean Gradient 3 mmHg LVOT VTI 31 cm LVOT VTI/AV VTI Ratio 0.3 LVOT Stroke Volume 109 ml LVOT CO 6.1
[2024-03-09] MEDS: rOPINIRole HCL 1 MG TABLET 4 MG PO ×3 (01:35→22:33)
[2024-03-09 06:14] LABS: Basophils Percent Auto 0.5 % (0.2-1.2); Eosinophils Absolute Auto 0.1 K/mm3 (0-0.3); Hematocrit 41.4 % (42.0-52.0); Hemoglobin 14.1 g/dL (14.0-18.0); Immature Granulocyte Absolute 0.05 K/mm3 (0.00-0.031); Immature Granulocyte Percent A 0.6 % (0-0.5); Immature Platelet Fraction Pct 2.2 % (0.9-11.2); Lymphocytes Absolute Auto 2.56 K/mm3 (0.9-3.2); Mean Corpuscular HGB Conc 34.1 g/dl (32-36); Mean Corpuscular Hemoglobin 30.5 pg (26-34); Mean Corpuscular Volume 89.4 fl (80-100); Mean Platelet Volume 9.6 fl (7.4-10.4); Monocytes Absolute Auto 0.5 K/mm3 (0.1-0.6); Monocytes Percent Auto 5.1 % (2.6-8.5); Neutrophils Absolute Auto 5.7 K/mm3 (1.3-6.7); Neutrophils Percent Auto 63.8 % (45.5-73.1); Platelet Count Result 129 k/mm3 (150-375); Red Blood Count 4.63 M/mm3 (4.6-6.20); White Blood Count 8.8 K/mm3 (4.5-10.0)
[2024-03-09] MEDS: LORazepam INJ (*CRX) 2 MG/ML VIAL 1 MG IV PUSH (06:19)
[2024-03-09 06:24] LABS: Prothrombin Time 13.9 Seconds (11.1-14.7)
[2024-03-09 06:41] LABS: Alanine Aminotransferase 15 U/L (6-50); Albumin Level 4.3 g/dL (3.5-5.1); Alkaline Phosphatase 51 U/L (38-126); Anion Gap 10 mmol/L (4-12); Aspartate Amino Transferase 20 U/L (17-59); Bilirubin,Total 0.9 mg/dL (0.2-1.3); Blood Urea Nitrogen 8 mg/dL (9-20); Carbon Dioxide 24 mmol/L (22-30); Chloride 106 mmol/L (98-107); Estimated CRCL calculation 128 ml/min; Estimated Glomerular Filt Rate > 60; Glucose 110 mg/dL (65-110); Magnesium 1.8 mg/dL (1.6-2.3); Potassium 3.9 mmol/L (3.4-5.0); Sodium 140 mmol/L (137-145)
--- NOTE | 2024-03-09 08:27 | PM.IMPN ---
Progress Note: A&P Assessment and Plan (1) TIA (transient ischemic attack): Code(s): G45.9 - Transient cerebral ischemic attack, unspecified Status: Acute Assessment and Plan: Patient developed eft-sided extremity weakness both upper and lower extremity, tingling to the left side face, numbness and tingling to his left arm and altered ambulation. - Resolved - Patient started on high dose statin, remains on ASA, will benefit from anticoagulation for TIA and afib, started on warfarin by cardiology as he will need this following his mechanical valve replacement - Cholesterol panel ordered - Head CT: no acute intracranial findings - Head/neck CTA: Normal brain. No aneurysm or significant intracranial arterial stenosis. 38% stenosis of the proximal right internal carotid artery relative to normal distal artery lumen diameter (NASCET criteria). 11% stenosis of the proximal left internal carotid artery relative to normal distal artery lumen diameter. - Brain MRI: Unremarkable. No acute infarct, intracranial hemorrhage, or mass lesion. - Echo with bubble study: LVEF 65-70% with grade I diastolic dysfunction. Negative bubble study. as expected. - Neurology consulted (2) Hyperlipidemia: Qualifiers: Hyperlipidemia type: mixed hyperlipidemia Qualified Code(s): E78.2 - Mixed hyperlipidemia Code(s): E78.5 - Hyperlipidemia, unspecified Status: Acute Assessment and Plan: Chronic. - Cholesterol panel WNL - Rosuvastatin increased to high dose since patient had TIA. Now on Rosuvastatin 40 mg daily. (3) Aortic stenosis: Qualifiers: Cardiac valve disease etiology: nonrheumatic Qualified Code(s): I35.0 - Nonrheumatic aortic (valve) stenosis Code(s): I35.0 - Nonrheumatic aortic (valve) stenosis Status: Acute Assessment and Plan: Prior DUCT LAYER HELPER reached out to Cardiothoracic surgery, patient's valve replacement will be rescheduled. Per chart review patient is able to continue anticoagulate after discharge. - Started on warfarin by cardiology (4) Prediabetes: Code(s): R73.03 - Prediabetes Status: Acute Assessment and Plan: Hemoglobin A1c 5.7 as checked emergency department (5) Obstructive sleep apnea: Code(s): G47.33 - Obstructive sleep apnea (adult) (pediatric) Status: Acute Assessment and Plan: Autopap available (6) History of bipolar disorder: Code(s): Z86.59 - Personal history of other mental and behavioral disorders Status: Acute Assessment and Plan: Chronic, continue home medications, currently asymptomatic. - Seroquel 50 mg daily - Bupropion 150 mg daily - Monitor Time Spent With Patient Time with patient: 25 - 35 minutes Subjective Date/time seen: 03/09/24 08:27 Interval history: 58-year-old male patient past history atrial fibrillation hypertension depression aortic valve sclerosis who is supposed undergo aortic valve replacement in 2 weeks at [place] who has presented to the hospital today with sudden onset left-sided extremity weakness both upper and lower extremity, tingling to the left side face, numbness and tingling to his left arm and altered ambulation. Patient is pleasant sitting up in bed. During assessment cardiology joined and we were able to discuss the treatment plan together with the patient. Patient underwent an echo which showed LVEF 65-70% and grade I diastolic dysfunction and severe aortic valve calcification. Aortic stenosis expected as patient was scheduled to undergo a mechanical valve replacement on mar 22. Since patient is to start warfarin after his valve replacement he was started on this now. Discussed with patient that he will need to become therapeutic prior to discharge on the warfarin. Also discussed with him that he will need to call his cardiothoracic surgeon to reschedule his surgery. He states understanding. Patients brain MRI was negative. His statin was increased to h
[2024-03-09] MEDS: buPROPion HCL SR (12 HR) 150 MG TAB PO ×2 (09:14→16:50)
[2024-03-09] MEDS: QUEtiapine FUMARATE XR 50 MG TAB.ER.24H PO ×2 (09:14→22:34)
[2024-03-09] MEDS: ENOXAPARIN 40 MG/0.4 ML SYRINGE SUB-Q (09:14)
[2024-03-09] MEDS: METOPROLOL TARTRATE 25 MG TABLET PO ×2 (09:14→22:34)
[2024-03-09] MEDS: ASPIRIN 81 MG CHEWABLE TABLET PO (09:14)
[2024-03-09 09:17] LABS: Cholesterol 140 mg/dL (0-200); HDL Direct 50 mg/dL; Triglycerides 109 mg/dL (<150)
[2024-03-09 09:28] LABS: LDL Cholesterol Direct 67 mg/dL
--- NOTE | 2024-03-09 12:23 | PM.CNCAR ---
Assessment and Plan Assessment and plan (1) TIA (transient ischemic attack): Code(s): G45.9 - Transient cerebral ischemic attack, unspecified Status: Acute Assessment and Plan: Brain MRI negative for CVA. Neurology consultation pending. Continue ASA, high intensity statin. Recommend Warfarin for anticoagulation. (2) Severe aortic stenosis: Code(s): I35.0 - Nonrheumatic aortic (valve) stenosis Status: Acute Assessment and Plan: Planned to undergo surgical valve replacement with a mechanical aortic valve with Dr. Baldwin at [facility]. Will need to be on Warfarin after his valve replacement, so will go ahead and start now. Follow up with CTS regarding the timing of the surgery. (3) History of atrial fibrillation: Code(s): Z86.79 - Personal history of other diseases of the circulatory system Status: Acute Assessment and Plan: Has documented EKG in the past showing SVT, however I am unclear about his AFIB. History of AFIB not mentioned in Dr. De Jesus's notes, but noted in other providers' notes. Regardless, he would need to be on anticoagulation after his surgical valve replacement for a mechanical valve, so starting Warfarin now with a goal of INR of 2-3. (4) Hyperlipidemia: Qualifiers: Hyperlipidemia type: mixed hyperlipidemia Qualified Code(s): E78.2 - Mixed hyperlipidemia Code(s): E78.5 - Hyperlipidemia, unspecified Status: Acute Assessment and Plan: Continue high intensity statin. Plan Recommendations and plan discussed with Hospitalist. History of Present Illness History of Present Illness Consult date/time: 03/09/24 12:23 Requesting physician: Cade Chandler APRN Consult reason: Other (TIA) Reason For Visit: tia,afib Narrative: This is a 58 year old male with severe aortic stenosis (planned for surgical aortic valve replacement with a mechanical valve with CTS at [facility]), history of PSVT, atrial fibrillation? (not mentioned in Dr. De Jesus's notes, but noted in other providers' notes), history of alcohol withdrawal seizures, tobacco use, history of a 3mm L occipital subdural hematoma that was found when admitted with seizure who presented with sudden onset left-sided extremity weakness in both upper and lower extremities, tingling to the left side face, numbness and tingling to his left arm. Admitted to [facility] for TIA vs CVA. Symptoms resolved by the time he arrived to the hospital. Awaiting Neurology evaluation here (Neurology not available until 03/10). Review of Systems Review of Systems: All systems reviewed & are unremarkable except as noted in HPI and below (HPI) [facility] Past Medical History Medical History Acute bacterial bronchitis Acute maxillary sinusitis, unspecified Acute non-recurrent frontal sinusitis Alcohol abuse Alcohol abuse Atrial fibrillation with RVR Benign essential HTN Bipolar disorder with current episode depressed Cervical radiculopathy Chest pain on exertion Chronic insomnia Colon cancer screening Complicated grieving COPD exacerbation Diabetes mellitus, new onset Dietary counseling and surveillance (04/28/18) Disappearance and of family member DJD of AC (acromioclavicular) joint Dysfunction of both eustachian tubes Epidermal inclusion cyst Fear of heights Groin ringworm Heart palpitations Hx of supraventricular tachycardia Hyperlipidemia type III Impingement syndrome involving patellar fat pad of left knee Infective tonsillitis Left knee injury Left knee pain Lesion of finger Major depressive disorder, recurrent severe without psychotic features Medial meniscus tear Nicotine dependence, unspecified, uncomplicated Obstructive sleep apnea Panic disorder Postural dizziness with presyncope Prediabetes Psychophysiological insomnia Restless legs syndrome Right shoulder pain Sebaceous cyst SVT (supraventricular tachycardia) Tobacco abuse Tobac
[2024-03-09] MEDS: WARFARIN (*PBKC) 5 MG TABLET PO (16:50)
[2024-03-09] MEDS: ROSUVASTATIN 20 MG TABLET 40 MG PO (22:34)
[2024-03-09] MEDS: dilTIAZem HCL CD 240 MG CAP.24HR PO (22:34)
[2024-03-10] VITALS (8 sets, daily range): BP systolic 118–126; BP diastolic 59–62; PULSE 50–86; RESP 16–18; TEMP 36.5–36.8; O2SAT 99–100
[2024-03-10 01:12] LABS: Glucose Point of Care 137 mg/dl (65-105)
[2024-03-10 06:13] LABS: Glucose Point of Care 134 mg/dl (65-105)
[2024-03-10 06:32] LABS: Basophils Percent Auto 0.5 % (0.2-1.2); Eosinophils Absolute Auto 0.1 K/mm3 (0-0.3); Eosinophils Percent Auto 1.2 % (0-4.4); Hematocrit 43.6 % (42.0-52.0); Hemoglobin 14.9 g/dL (14.0-18.0); Immature Granulocyte Absolute 0.02 K/mm3 (0.00-0.031); Immature Granulocyte Percent A 0.2 % (0-0.5); Lymphocytes Absolute Auto 2.85 K/mm3 (0.9-3.2); Lymphocytes Percent Auto 33.7 % (18.3-44.2); Mean Corpuscular HGB Conc 34.2 g/dl (32-36); Mean Corpuscular Hemoglobin 30.5 pg (26-34); Mean Corpuscular Volume 89.3 fl (80-100); Mean Platelet Volume 10.1 fl (7.4-10.4); Monocytes Absolute Auto 0.5 K/mm3 (0.1-0.6); Monocytes Percent Auto 5.8 % (2.6-8.5); Neutrophils Percent Auto 58.6 % (45.5-73.1); Platelet Count Result 146 k/mm3 (150-375); Red Blood Count 4.88 M/mm3 (4.6-6.20); Red Cell Distribution Width 14.1 % (11.5-14.5); White Blood Count 8.5 K/mm3 (4.5-10.0)
[2024-03-10 06:43] LABS: Alanine Aminotransferase 16 U/L (6-50); Albumin Level 4.5 g/dL (3.5-5.1); Alkaline Phosphatase 50 U/L (38-126); Anion Gap 9 mmol/L (4-12); Aspartate Amino Transferase 22 U/L (17-59); Blood Urea Nitrogen 10 mg/dL (9-20); Calcium 9.4 mg/dL (8.4-10.2); Carbon Dioxide 27 mmol/L (22-30); Chloride 103 mmol/L (98-107); Estimated CRCL calculation 111 ml/min; Estimated Glomerular Filt Rate > 60; Glucose 119 mg/dL (65-110); Magnesium 1.8 mg/dL (1.6-2.3); Potassium 3.9 mmol/L (3.4-5.0); Sodium 139 mmol/L (137-145)
[2024-03-10 06:45] LABS: Prothrombin Time 13.7 Seconds (11.1-14.7)
--- NOTE | 2024-03-10 08:42 | PM.IMPN ---
Progress Note: A&P Assessment and Plan (1) TIA (transient ischemic attack): Code(s): G45.9 - Transient cerebral ischemic attack, unspecified Status: Acute Assessment and Plan: Patient developed eft-sided extremity weakness both upper and lower extremity, tingling to the left side face, numbness and tingling to his left arm and altered ambulation. - Resolved - Patient started on high dose statin, remains on ASA, will benefit from anticoagulation for TIA and afib, started on warfarin by cardiology as he will need this following his mechanical valve replacement INR 1.0 on am labs (therapeutic 2-3) - Cholesterol panel ordered - Head CT: no acute intracranial findings - Head/neck CTA: Normal brain. No aneurysm or significant intracranial arterial stenosis. 38% stenosis of the proximal right internal carotid artery relative to normal distal artery lumen diameter (NASCET criteria). 11% stenosis of the proximal left internal carotid artery relative to normal distal artery lumen diameter. - Brain MRI: Unremarkable. No acute infarct, intracranial hemorrhage, or mass lesion. - Echo with bubble study: LVEF 65-70% with grade I diastolic dysfunction. Negative bubble study. as expected. - Neurology consulted (2) Hyperlipidemia: Qualifiers: Hyperlipidemia type: mixed hyperlipidemia Qualified Code(s): E78.2 - Mixed hyperlipidemia Code(s): E78.5 - Hyperlipidemia, unspecified Status: Acute Assessment and Plan: Chronic. - Cholesterol panel WNL - Rosuvastatin increased to high dose since patient had TIA. Now on Rosuvastatin 40 mg daily. (3) Aortic stenosis: Qualifiers: Cardiac valve disease etiology: nonrheumatic Qualified Code(s): I35.0 - Nonrheumatic aortic (valve) stenosis Code(s): I35.0 - Nonrheumatic aortic (valve) stenosis Status: Acute Assessment and Plan: Prior MATERIAL CONTROL SPECIALIST reached out to Cardiothoracic surgery, patient's valve replacement will be rescheduled. Per chart review patient is able to continue anticoagulate after discharge. - Started on warfarin by cardiology INR 1.0 on am labs (therapeutic 2-3) (4) Prediabetes: Code(s): R73.03 - Prediabetes Status: Acute Assessment and Plan: Hemoglobin A1c 5.7 as checked emergency department (5) Obstructive sleep apnea: Code(s): G47.33 - Obstructive sleep apnea (adult) (pediatric) Status: Acute Assessment and Plan: Autopap available (6) History of bipolar disorder: Code(s): Z86.59 - Personal history of other mental and behavioral disorders Status: Acute Assessment and Plan: Chronic, continue home medications, currently asymptomatic. - Seroquel 50 mg daily - Bupropion 150 mg daily - Monitor Time Spent With Patient Time with patient: 25 - 35 minutes Subjective Date/time seen: 03/10/24 08:42 Interval history: 58-year-old male patient past history atrial fibrillation hypertension depression aortic valve sclerosis who is supposed undergo aortic valve replacement in 2 weeks at [place] who has presented to the hospital today with sudden onset left-sided extremity weakness both upper and lower extremity, tingling to the left side face, numbness and tingling to his left arm and altered ambulation. 11:30: Patient is standing up in his room. He has no complaints at this time, denying weakness, chest pain, shortness of breath, nausea/vomiting and changes in bowel/bladder. His INR is 1.0 on am labs. Will continue treatment with warfarin at this time. Neurology to evaluate patient today. Review of Systems Review of Systems: All systems reviewed & are unremarkable except as noted in HPI and below Exam Narrative: AF HR 86 RR 16 SpO2 99 BP 118/62 General: male in no acute respiratory distress who is nontoxic appearing, lying semi recumbent in bed. HEENT: Normocephalic. Atraumatic. Pupils equal round reactive to light. Extraocular movement intact. Sclera cl
[2024-03-10] MEDS: QUEtiapine FUMARATE XR 50 MG TAB.ER.24H PO (08:59)
[2024-03-10] MEDS: METOPROLOL TARTRATE 25 MG TABLET PO (08:59)
[2024-03-10] MEDS: buPROPion HCL SR (12 HR) 150 MG TAB PO (08:59)
[2024-03-10] MEDS: ASPIRIN 81 MG CHEWABLE TABLET PO (08:59)
[2024-03-10] MEDS: ENOXAPARIN 40 MG/0.4 ML SYRINGE SUB-Q (09:01)
[2024-03-10 12:17] LABS: Glucose Point of Care 136 mg/dl (65-105)
--- NOTE | 2024-03-10 13:32 | PM.PNCARD ---
Progress Note: A&P Assessment and Plan (1) Severe aortic stenosis: Code(s): I35.0 - Nonrheumatic aortic (valve) stenosis Status: Acute Plan 58-year-old man with severe aortic stenosis admitted to the hospital yesterday with acute cerebral ischemia appears to have had a TIA. Coumadin has been started primarily because he will need to be on Coumadin following his aortic valve replacement rather than a NOAC. Cardiac-louis he is stable otherwise from my perspective he can be discharged and if and when so he needs to have his INR followed at short intervals as he is being started on Coumadin. If he is discharged today I would suggest INR should be done on Thursday and titrate to INR goal of 2-3. He has follow-up appointment with his cardiothoracic surgeon already scheduled in the next couple of weeks at [facility]. Case Cage MD [facility] Subjective Date/time seen: Date of service: 03/10/24 13:32 Interval history: Follow-up visit in this 58-year-old man with severe aortic valve stenosis. Patient is symptomatic with exertional dyspnea and is scheduled for mechanical aortic valve replacement later this month. Patient was admitted with symptoms of TIA. Imaging appears to be negative for CVA. Coumadin was started yesterday. Exam HENMT: Mouth: Yes moist mucous membranes Eyes: Sclera: sclerae normal Neck: Neck: supple and no JVD Resp: Effort & Inspection: normal respiratory effort Auscultation: clear to auscultation bilaterally Cardio: Other: Grade 2/6 high-pitched systolic crescendo decrescendo murmur at the base radiates to the carotids no diastolic murmur S4 is audible GI: GI Palp: Yes Soft to palpation Auscultation: normal bowel sounds Skin: General skin exam: normal color Neuro: Other: Alert and oriented x3 Extrem: Other: Normal pulses, no edema Objective Data Vital Signs Vital Signs: Vital Signs - 24 hr 03/09/24 14:00 03/09/24 16:00 03/09/24 19:50 Temperature 36.7 C 36.9 C Pulse Rate 53 L 62 53 L Respiratory Rate 16 18 Blood Pressure 126/65 145/63 H Pulse Oximetry 99 100 Oxygen Delivery Fraction of Inspired Oxygen 03/09/24 20:00 03/09/24 20:00 03/10/24 00:00 Temperature Pulse Rate 62 58 L Respiratory Rate Blood Pressure Pulse Oximetry Oxygen Delivery Room Air Fraction of Inspired Oxygen 03/10/24 04:00 03/10/24 06:00 03/10/24 08:49 Temperature 36.8 C Pulse Rate 50 L 86 Respiratory Rate 16 Blood Pressure 118/62 Pulse Oximetry 99 99 Oxygen Delivery Room Air Fraction of Inspired Oxygen 21 03/10/24 08:59 03/10/24 08:00 03/10/24 12:00 Temperature Pulse Rate 60 56 L 65 Respiratory Rate Blood Pressure Pulse Oximetry Oxygen Delivery Fraction of Inspired Oxygen Intake/Output Intake/Output: Intake & Output 03/07/24 03/08/24 03/09/24 03/10/24 23:59 23:59 23:59 23:59 Intake Total 240 774 476 Balance 240 774 476 Meds/Results Medications: Active Medications Generic Name Dose Route Start Last Admin Trade Name Freq PRN Reason Stop Dose Admin Aspirin 81 mg 03/09/24 08:00 03/10/24 08:59 Aspirin 81 Mg Chewable Tablet PO 81 mg DAILY@0800 CHAVO Administration Bupropion HCl 150 mg 03/08/24 17:00 03/10/24 08:59 Bupropion Hcl Sr (12 Hr) 150 Mg Tab PO 150 mg BID CHAVO Administration Diltiazem HCl 240 mg 03/08/24 21:00 03/09/24 22:34 Diltiazem Hcl Cd 240 Mg Cap.24hr PO 240 mg HS CHAVO Administration Enoxaparin Sodium 40 mg 03/09/24 09:00 03/10/24 09:01 Enoxaparin 40 Mg/0.4 Ml Syringe SUB-Q 40 mg DAILY CHAVO Administration Lorazepam 2 mg 03/09/24 13:14 Lorazepam Inj (*Crx) 2 Mg/Ml Vial IV PUSH Q4H PRN CIWA 8-15 Metoprolol Tartrate 25 mg 03/08/24 21:00 03/10/24 08:59 Metoprolol Tartrate 25 Mg Tablet PO 25 mg Q12HR CHAVO Administration Miscellaneous Information 0 each 03/08/24 00:01 03/10/24 00:02 Naltrexo
--- NOTE | 2024-03-10 14:29 | WPDNEURCNPN ---
Assessment and Plan Assessment and plan (1) TIA (transient ischemic attack): Code(s): G45.9 - Transient cerebral ischemic attack, unspecified Status: Acute (2) Severe aortic stenosis: Code(s): I35.0 - Nonrheumatic aortic (valve) stenosis Status: Acute (3) Alcohol abuse: Code(s): F10.10 - Alcohol abuse, uncomplicated Status: Acute (4) History of atrial fibrillation: Code(s): Z86.79 - Personal history of other diseases of the circulatory system Status: Acute Plan Patient has history of a single seizure due to alcohol withdrawal in the past which has not recurred since that time. He no longer drinks alcohol. He saw Dr. Villegas about 3 years ago for the same. Neurologic exam he did not reveal any focal deficit. I reviewed the Cardiology if notes and I agree about anticoagulation and follow up with the cardiac surgeon regarding aortic stenosis. He is already on a statin that should be kept up and the dose has been increased from 10 mg to 40 mg of the Crestor. I do not have much else to add from neurologic point of view and would be glad to see him follow-up if necessary. I spoke to the nursing staff as well as nurse practitioner of the case about the findings. Thank you very much Consult date: 03/10/24 HPI: Wyatt Madden is a 58 year old male with history of aortic stenosis pending valve replacement and atrial fibrillation presented to the hospital with the onset of numbness in the left upper limb. Initially also had some numbness in the left face. In fact he was feeling weak in the left arm also. Patient also has history of obstructive sleep apnea syndrome and bipolar disorder. He has been a smoker and continues to smoke. Upon admission his it was noted that he has a CT scan of brain did not show any significant abnormality. CT angiogram shows 38% narrowing in the right internal carotid artery. MRI of the brain was performed did not show any abnormality. His symptoms resolved in about 15 minutes or so and he did not have any further recurrence of the same. He was not on any anticoagulation prior to that. How ever he has now been started on warfarin since he is planned to have a metallic valve from the aortic valve. The cardiology on the case. Their input is noted. Patient does not have any other active symptoms at this time. No history of prior stroke. He denies any headache or difficulty speech or swallowing. No weakness in upper lower limbs at this time. Review of Systems Review of Systems: He denies having any chest pain, palpitation, shortness of breath, headache or diplopia or nausea or vomiting. No febrile illness or trauma All systems reviewed & are unremarkable except as noted in HPI and below PMFSH Past Medical History Medical History Acute bacterial bronchitis Acute maxillary sinusitis, unspecified Acute non-recurrent frontal sinusitis Alcohol abuse Alcohol abuse Atrial fibrillation with RVR Benign essential HTN Bipolar disorder with current episode depressed Cervical radiculopathy Chest pain on exertion Chronic insomnia Colon cancer screening Complicated grieving COPD exacerbation Diabetes mellitus, new onset Dietary counseling and surveillance (04/28/18) Disappearance and of family member DJD of AC (acromioclavicular) joint Dysfunction of both eustachian tubes Epidermal inclusion cyst Fear of heights Groin ringworm Heart palpitations Hx of supraventricular tachycardia Hyperlipidemia type III Impingement syndrome involving patellar fat pad of left knee Infective tonsillitis Left knee injury Left knee pain Lesion of finger Major depressive disorder, recurrent severe without psychotic features Medial meniscus tear Nicotine dependence, unspecified, uncomplicated Obstructive sleep apnea Panic disorder Postural dizziness with presyncope Prediabetes Psychophysiological insomnia Restless le
--- NOTE | 2024-03-10 14:36 | PM.DS ---
DS: Admitting Diagnosis Discharge Date 03/10/2024 Admitting Diagnosis TIA HLD Aortic stenosis Prediabetes NICOLE History of bipolar DS: Discharge Diagnosis Discharge Diagnosis (1) TIA (transient ischemic attack): Code(s): G45.9 - Transient cerebral ischemic attack, unspecified Status: Acute (2) Hyperlipidemia: Qualifiers: Hyperlipidemia type: mixed hyperlipidemia Qualified Code(s): E78.2 - Mixed hyperlipidemia Code(s): E78.5 - Hyperlipidemia, unspecified Status: Acute (3) Aortic stenosis: Qualifiers: Cardiac valve disease etiology: nonrheumatic Qualified Code(s): I35.0 - Nonrheumatic aortic (valve) stenosis Code(s): I35.0 - Nonrheumatic aortic (valve) stenosis Status: Acute (4) Prediabetes: Code(s): R73.03 - Prediabetes Status: Acute (5) Obstructive sleep apnea: Code(s): G47.33 - Obstructive sleep apnea (adult) (pediatric) Status: Acute (6) History of bipolar disorder: Code(s): Z86.59 - Personal history of other mental and behavioral disorders Status: Acute DS: Summary Hospital Course Reason for hospitalization: TIA HLD Aortic stenosis Prediabetes NICOLE History of bipolar Hospital Course: 58-year-old male patient past history atrial fibrillation hypertension depression aortic valve sclerosis who is supposed undergo aortic valve replacement in 2 weeks at [place] who has presented to the hospital today with sudden onset left-sided extremity weakness both upper and lower extremity, tingling to the left side face, numbness and tingling to his left arm and altered ambulation. Symptoms resolved in approximately 15 minutes. Neurology was consulted for TIA. Patients head CT showed no acute intracranial findings. A head/neck CTA showed a normal brain without aneurysm or significant arterial stenosis (38% stenosis of the proximal right internal carotid artery,11% stenosis of the proximal left internal carotid artery). Brain MRI was unremarkable. No acute infarct, intracranial hemorrhage, or mass lesion. Echo with bubble study showed LVEF 65-70% with grade I diastolic dysfunction and aortic stenosis as expected. Negative bubble study. Patient was started on high dose rosuvastatin and remained on his asa. Admitting DELIVERY CONSULTANT reached out to Cardiothoracic surgery, patient's valve replacement will be rescheduled. Per chart review patient is able to continue anticoagulate after discharge. Cardiology was consulted. Patient was started on warfarin by cardiology as he will need this following his mechanical valve replacement. His INR was 1.0 on labs. Per cardiology INR can be followed by them outpatient. He is to have a PT/INR drawn on Thursday, 03/14 and they will titrate the warfarin accordingly for a goal of 2-3. Neurology evaluated patient and agreed with increased dose of rosuvastatin, continuing the asa and starting the warfarin. Patient was cleared from a cardiac and neurological stand point prior to discharge. Discussed with patient that he needs to call and update his cardiothoracic surgeon at time of discharge. He states understanding. Prior to discharge patient had no complaints, denying weakness, chest pain, shortness of breath, nausea/vomiting and changes in bowel/bladder. Patient discharged in stable condition. He is to obtain an INR on Thursday and follow up with cardiology and neurology as scheduled. He is to call his cardiothoracic surgeon in regards to his valve replacement. He is to follow up with his PCP in 1-2 weeks. Status at Discharge Functional status at discharge: independent ambulation Time Spent with Patient Time attestation: Total time spent providing and/or coordinating discharge services: Time spent: Greater than 30 minutes Exam Narrative: AF HR 86 RR 16 SpO2 99 BP 118/62 General: male in no acute respiratory distress who is nontoxic appearing, lying semi recumbent in bed. HEENT: Normocephalic. Atraumatic. Pupils equal round react
== END 2024-03-10 16:05 | disposition home or self-care (01) ==
LOC: ANHED 11:45 → ANH3MEDSUR 13:38
PROVIDERS: Nurse Practitioner; Admitting Provider General Practice; Emergency Provider Emergency Medicine; PCP Family Medicine; Visit Provider Student in an Organized Health Care Education/Training Program
DX: G45.9 Transient cerebral ischemic attack, unspecified (principal); I10 Essential (primary) hypertension; E78.5 Hyperlipidemia, unspecified; J44.9 Chronic obstructive pulmonary disease, unspecified; G47.33 Obstructive sleep apnea (adult) (pediatric); R73.03 Prediabetes; I35.0 Nonrheumatic aortic (valve) stenosis; E55.9 Vitamin D deficiency, unspecified; G25.81 Restless legs syndrome; I47.10 Supraventricular tachycardia, unspecified; F31.9 Bipolar disorder, unspecified; Z79.82 Long term (current) use of aspirin; F17.210 Nicotine dependence, cigarettes, uncomplicated; F12.90 Cannabis use, unspecified, uncomplicated; F10.10 Alcohol abuse, uncomplicated; Z86.79 Personal history of other diseases of the circulatory system
CPT/HCPCS: 36415; 70450; 70496; 70498; 70553; 71045; 80053; 82465; 82948; 83036; 83718; 83721; 83735; 84478; 84484; 85025; 85055; 85610; 85730; 93005; 93306; 96372; 96374; 96375; 99285; A9270; A9577; G0378; J1650; J2060; Q9967

== ENCOUNTER 2024-03-14 09:21 | Outpatient (CLI) | payer OTHER, SELFPAY ==
[2024-03-14 10:14] LABS: INR 1.3
== END 2024-03-14 09:22 | disposition home or self-care (01) ==
PROVIDERS: PCP Family Medicine; Visit Provider Student in an Organized Health Care Education/Training Program
DX: Z79.01 Long term (current) use of anticoagulants (principal)
CPT/HCPCS: 36415; 85610

== ENCOUNTER 2024-03-14 12:35 | Emergency (ER) | payer OTHER, SELFPAY ==
--- NOTE | ~2024-03-14 | XR_ITS ---
XR chest 2V Ordering provider: Mary Beth Fajardo III, DO History: 58 years Male with . palpitations . Comparison: March 08, 2024 FINDINGS: MEDIASTINUM: The cardiac silhouette is not enlarged. LUNGS: No infiltrates, effusions or pneumothorax. OTHER: No free air under the diaphragm. IMPRESSION: No acute cardiopulmonary pathology. Reviewed, dictated and finalized at location A.
[2024-03-14 12:35] VITALS: BP 115/54; PULSE 55; RESP 18; TEMP 36.7; O2SAT 100
[2024-03-14 12:58] LABS: Basophils Percent Auto 0.4 % (0.2-1.2); Eosinophils Absolute Auto 0.1 K/mm3 (0-0.3); Eosinophils Percent Auto 1.6 % (0-4.4); Hematocrit 40.4 % (42.0-52.0); Hemoglobin 14.3 g/dL (14.0-18.0); Immature Granulocyte Absolute 0.02 K/mm3 (0.00-0.031); Immature Granulocyte Percent A 0.3 % (0-0.5); Immature Platelet Fraction Pct 2.7 % (0.9-11.2); Lymphocytes Absolute Auto 2.77 K/mm3 (0.9-3.2); Lymphocytes Percent Auto 36.4 % (18.3-44.2); Mean Corpuscular HGB Conc 35.4 g/dl (32-36); Mean Corpuscular Hemoglobin 30.7 pg (26-34); Mean Corpuscular Volume 86.7 fl (80-100); Mean Platelet Volume 9.8 fl (7.4-10.4); Monocytes Absolute Auto 0.5 K/mm3 (0.1-0.6); Monocytes Percent Auto 6.7 % (2.6-8.5); Neutrophils Absolute Auto 4.2 K/mm3 (1.3-6.7); Neutrophils Percent Auto 54.6 % (45.5-73.1); Platelet Count Result 135 k/mm3 (150-375); Red Blood Count 4.66 M/mm3 (4.6-6.20); Red Cell Distribution Width 13.6 % (11.5-14.5); White Blood Count 7.6 K/mm3 (4.5-10.0)
--- NOTE | 2024-03-14 13:13 | ED.ARRPALP ---
HPI - Arrhythmia/Palpitations General Chief Complaint: Arrhythmia/Palpitations <KAMI Weems Last Filed: 03/14/24 13:24> Stated Complaint: palpitations, tingling <KAMI Weems Last Filed: 03/14/24 13:24> Time Seen by Provider: 03/14/24 13:13 <KAMI Weems Last Filed: 03/14/24 13:24> Focused HPI: Patient is a 58 y/o male who presents to the ED with c/o palpitations. Patient reports he was sitting down around 11:45 a.m. this morning when he suddenly developed racing heart palpitations. Began feeling flushed and tingly throughout his extremities. [place] lightheaded /dizzy. States the symptoms lasted for approximately 15 minutes before improving. Denied significant chest pain or shortness breath. Does report having dyspnea on exertion that has been worsening over the last several weeks. 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 Patient states he feels improved currently, just fatigued. GENERAL: Well-appearing, well-nourished, and in no acute distress. HEAD: Normocephalic, atraumatic. CHEST: Clear to auscultation. ?No respiratory distress. HEART: Regular rate and rhythm.?+murmur. MSK: No lower extremity edema. NEURO: ?Alert and oriented x3. Patient screened in triage and initial orders placed.? ?Additional care and disposition to be based upon?diagnostic testing and treatment. <KAMI Weems Last Filed: 03/14/24 13:24> Source: patient <KAMI Weems Last Filed: 03/14/24 13:24> Mode of arrival: ambulatory <KAMI Weems Last Filed: 03/14/24 13:24> Limitations: no limitations <KAMI Weems Last Filed: 03/14/24 13:24> History of Present Illness HPI narrative: HPI as per MSE screen. Pt with period of palpitations and tingling in extremities all resolved now. lasted a out 15 minutes. Pt due for AVR replacement. <Mary Beth Fajardo III, DO - Last Filed: 03/14/24 18:37> Related Data Home Medications: Home Medications Medication Instructions Recorded Confirmed aspirin 81 mg chewable tablet 81 mg PO DAILY 08/22/22 03/11/24 naltrexone 50 mg tablet 50 mg PO HS 01/26/23 03/11/24 bupropion HCl 150 mg PO DAILY 03/08/24 03/11/24 diltiazem HCl 240 mg 240 mg PO HS 03/08/24 03/11/24 capsule,extended release 24 hr metoprolol tartrate 25 mg tablet 25 mg PO BID 03/08/24 03/11/24 ropinirole 4 mg tablet 4 mg PO BID PRN Restless legs 03/08/24 03/11/24 <Eve Ramirez PA-C - Last Filed: 03/14/24 13:24> Allergies/Adverse Reactions: Allergies Allergy/AdvReac Type Severity Reaction Status Date / Time No Known Allergies Allergy Unverified 03/14/24 13:49 <Eve Ramirez PA-C - Last Filed: 03/14/24 13:24> Review of Systems Review of Systems: All systems reviewed & are unremarkable except as noted in HPI and below <Mary Beth Fajardo III, DO - Last Filed: 03/14/24 18:37> PMFSH Past Medical History Medical History: Medical History Acute bacterial bronchitis Acute maxillary sinusitis, unspecified Acute non-recurrent frontal sinusitis Alcohol abuse Alcohol abuse Alcohol abuse Atrial fibrillation with RVR Benign essential HTN Bipolar disorder with current episode depressed Cervical radiculopathy Chest pain on exertion Chronic insomnia Colon cancer screening Complicated grieving COPD exacerbation Diabetes mellitus, new onset Dietary counseling and surveillance (04/28/18) Disappearance and of family member DJD of AC (acromioclavicular) joint Dysfunction of both eustachian tubes Epidermal inclusion cyst Fear of heights Groin ringworm Heart palpitations Hx of supraventricular tachycardia Hyperlipidemia type III Impingement syndro
[2024-03-14 13:15] LABS: INR 1.3; Partial Thromboplastin Time 27.1 Seconds (22.3-36.8); Prothrombin Time 16.9 Seconds (11.1-14.7)
[2024-03-14 13:28] LABS: Alanine Aminotransferase 21 U/L (6-50); Albumin Level 4.3 g/dL (3.5-5.1); Alkaline Phosphatase 54 U/L (38-126); Anion Gap 8 mmol/L (4-12); Aspartate Amino Transferase 24 U/L (17-59); Bilirubin,Total 0.8 mg/dL (0.2-1.3); Blood Urea Nitrogen 11 mg/dL (9-20); Calcium 9.2 mg/dL (8.4-10.2); Carbon Dioxide 26 mmol/L (22-30); Chloride 105 mmol/L (98-107); Estimated CRCL calculation 128 ml/min; Estimated Glomerular Filt Rate > 60; Glucose 122 mg/dL (65-110); Lipase 41 U/L (23-300); Sodium 139 mmol/L (137-145); Troponin I < 0.012 ng/mL (0.000-0.034)
[2024-03-14 13:47] LABS: Magnesium 1.9 mg/dL (1.6-2.3)
[2024-03-14 13:57] VITALS: PULSE 53
[2024-03-14 13:58] VITALS: BP 123/65; PULSE 53; RESP 18; O2SAT 100
[2024-03-14 15:13] VITALS: BP 129/57; PULSE 54; RESP 12; O2SAT 100
--- NOTE | 2024-03-22 09:59 | WPDHOLTEREM ---
Holter/Event Monitor Holter/Event Monitor Date of procedure: 03/22/24 Holter/Event Procedure: 48 Hr Holter Monitor Diagnosis: Palpitations Indications: Palpitations Image/Tracing Quality: Adequate. Total analysis time of 47 hours and 59 minutes. Findin. Predominant rhythm is sinus rhythm with an average heart rate of 61 beats per minute. The minimum heart rate was 47 beats per minute. The maximum heart rate was 88 beats per minute. 2. No evidence of atrial fibrillation, SVT, pauses, heart block, or ventricular tachycardia. 3. PAC burden is <0.01%. 4. PVC burden is <0.01%. 5. Patient reported 1 event of fluttering that correlated to normal sinus rhythm at a heart rate of 71 beats per minute. Conclusion: 1. Sinus rhythm with an average heart rate of 61 beats per minute. 2. Unremarkable monitor with no significant arrhythmias. 3. Patient's symptoms while wearing the monitor correlate to normal sinus rhythm.
== END 2024-03-14 16:08 | disposition home or self-care (01) ==
PROVIDERS: Physician Assistant; Emergency Provider Emergency Medicine; PCP Family Medicine
DX: R00.2 Palpitations (principal); Z79.01 Long term (current) use of anticoagulants
CPT/HCPCS: 36415; 71046; 80053; 83690; 83735; 84484; 85025; 85055; 85610; 85730; 93005; 93225; 93226; 99284

== ENCOUNTER 2024-04-02 09:44 | Outpatient (RCR) | payer OTHER, SELFPAY ==
[2024-04-02 11:26] LABS: INR 1.8; Prothrombin Time 21.9 Seconds (11.1-14.7)
== END 2024-07-01 23:59 | disposition home or self-care (01) ==
LOC: ANHLAB 09:44
PROVIDERS: PCP Family Medicine
DX: I35.0 Nonrheumatic aortic (valve) stenosis (principal)
CPT/HCPCS: 36415; 85610

== ENCOUNTER 2024-07-12 11:32 | Outpatient (CLI) | payer OTHER, SELFPAY ==
--- NOTE | ~2024-07-12 | CT_ITS ---
CT Scan of the Chest without Contrast: Clinical Indication: Abnormal finding of lung field Technique: Contiguous sections were acquired throughout the chest without intravenous contrast. Dose reduction technique was used on this scan by utilizing automated exposure control and iterative recon struction technique. The dose-length product (DLP) was 134.04 mGy-cm. COMPARISON: 07/31/2023 Findings: There is no evidence of any significant mediastinal, hilar or axillary lymphadenopathy. The mediastin al soft tissues appear normal. No pericardial effusion. Small right pleural effusion present with right basilar atelectatic change. Left lung clear. No left pleural effusion. Images through the upper abdomen reveal no abnormalities. Impression: Small right pleural effusion with mild right basilar atelectatic change. Reviewed, dictated and finalized at location . RMATION AND DATA ARCHITECT ANALYST Impression: Small right pleural effusion with mild right basilar atelectatic change.
== END 2024-07-12 11:33 | disposition home or self-care (01) ==
LOC: MICIMG 11:33
PROVIDERS: PCP Physician Assistant; Visit Provider Physician Assistant
DX: R91.8 Other nonspecific abnormal finding of lung field (principal); J90 Pleural effusion, not elsewhere classified
CPT/HCPCS: 71250

== ENCOUNTER 2024-07-16 08:22 | Outpatient (CLI) | payer OTHER, SELFPAY ==
[2024-07-16 08:42] LABS: Hemoglobin 13.2 g/dL (14.0-18.0)
[2024-07-16 08:53] LABS: Alanine Aminotransferase 25 U/L (6-50); Albumin Level 4.3 g/dL (3.5-5.1); Alkaline Phosphatase 73 U/L (38-126); Anion Gap 6 mmol/L (4-12); Aspartate Amino Transferase 35 U/L (17-59); Bilirubin,Total 0.6 mg/dL (0.2-1.3); Blood Urea Nitrogen 10 mg/dL (9-20); Calcium 9.1 mg/dL (8.4-10.2); Carbon Dioxide 27 mmol/L (22-30); Chloride 106 mmol/L (98-107); Estimated Glomerular Filt Rate > 60; Glucose 116 mg/dL (65-110); Potassium 4.2 mmol/L (3.4-5.0); Sodium 139 mmol/L (137-145)
[2024-07-16 09:25] LABS: Iron 71 ug/dL (49-181)
[2024-07-16 09:34] LABS: Percent Iron Saturation 23 % (20-50)
--- OUTSIDE RECORDS SUMMARY | 2024-07-19 21:57 | XMS_ITS | Encounter Summary ---
Author Organization [facility] Healthcare Address [address] [place] [address] Care Team Providers Care Reserve Operator Name Role Phone Carolyn Davis MD Primary Care Provider Ernie Baldwin MD Unavailable [phone] Tom De Jesus MD Unavailable Encounter Details Date Type Department Care Team (Latest Contact Info) Description 07/18/2024 Anticoagulation Visit [facility] Cardiology [address] [place] [address] Rommel Bueno, RN Aortic valve replaced (Primary Dx) Social History Tobacco Use Types Packs/Day Years Used Date Smoking Tobacco: Former Cigarettes 1 35.3 S tarted: 03/24/1989 Smokeless Tobacco: Never Comments:QUIT SMOKING 024 Alcohol Use Standard Drinks/Week Comments No 0 (1 standard drink = 0.6 oz pur e alcohol) Social Connection and Isolat ion Panel [NHANES] Answer Date Recorded In a typical week, how many times do you talk on the phone with family, friends, or neighbors? Once a week 03/24/2024 How often do you get togethe r with friends or relatives? Once a week 03/24/2024 How often do you attend chur or uatsdin services? Never 03/24/2024 Do you belong to any clubs o r organizations such as mosque groups, unions, fraternal or athletic groups, or school groups? Yes 03/24/2024 How often do you attend meet ings of the clubs or organizations you belong to? More than 4 times per year 03/24/2024 Are you , , di vorced, , never , or living with a partner? 03/24/2024 AUDIT-C Answer Date Recorded Q1: How often do you have a drink containing alcohol? Never 03/24/2024 Q2: How many drinks containi ng alcohol do you have on a typical day when you are drinking? Patient does not drink Q3: How often do you have si x or more drinks on one occasion? Never 03/24/2024 Overall Financial Resource Strain (CARDIA) Answe r Date Recorded How hard is it for you to pa y for the very basics like food, housing, medical care, and heating? Not very hard 03/24/2024 Hunger Vital Sign Answer Date Recorded Within the past 12 months, y ou worried that your food would run out before you got the money to buy more. Never true 03/24/20 24 Within the past 12 months, t he food you bought just didn't last and you didn't have money to get more. Never true 03/24/2024 PRAPARE - Transportation Answer Date Re corded In the past 12 months, has l ack of transportation kept you from medical appointments or from getting medications? No 03/04 In the past 12 months, has l ack of transportation kept you from meetings, work, or from getting things needed for daily living? No 03/24/2024 Housing Stability Vital Sign Answer Davie e Recorded In the last 12 months, was t here a time when you were not able to pay the mortgage or rent on time? No 03/24/2024 In the past 12 months, how m any times have you moved where you were living? 0 03/24/2024 At any time in the past 12 m [facility], were you homeless or living in a usp (including now)? No 03/24/2024 Personal Safety Answer Date Recorded Have you ever been in or are you currently in a harmful physical or emotional relationship or is someone making you feel afraid or unsafe? 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 Gender Identity Not on file Sexual Orientation Not on file documented as of this encounter Plan of Treatment Not on file documented as of this encounter Procedures Procedure Name Priority Date/Time Associated Diagnosis Comments PROTIME-INR Routine 07/16/2024 documented in this encounter Results * (ABNORMAL) Protime-INR (07/16/2024) INR 1.90(A) 0.90 - 1.10 EXTERNAL LAB Blood us Historical Provider LAB BLOOD ORDERABLES Rita l Result EXTERNAL LAB documented in this encounter Visit Diagnoses Diagnosis Aortic valve replaced- Primary Heart valve replaced by other means documented in this encounter Care Teams Reserve Operator Relationship Specialty Start Date End Date Carolyn Davis MD [address] [place] [address] PCP - General 10/31/15 Ernie Baldwin MD [id number] [place] [address] Surgeon Cardiothoracic Surgery 03/29/24 Tom De Jesus MD [address] [facility] [address] [place] [address] Consulting Physician Cardiology 03/29/24 documented as of this encounter
--- OUTSIDE RECORDS SUMMARY | 2024-07-19 21:57 | XMS_ITS | Encounter Summary ---
Author Organization [facility] Address [address] [place] [address] Care Team Providers Care Reel Cart Operator Name Role Phone Carolyn Davis MD Primary Care Provider + Reason for Visit * Reason Onset Date Comments Follow-up 09/06/2016 Encounter Details Date Type Department Care Team (Late st Contact Info) Description 09/06/2016 Telephone [id number] [address] [id number] Sonia Chaudhry Follow-up Social History Tobacco Use Types Packs/Day Years Used Date Smoking Tobacco: Every Day Sex and Gender Information Value Date Recorded Sex Assigned at Not on file Gender Identity Not on file Sexual Orientation Not on file documented as of this encounter Plan of Treatment Not on file documented as of this encounter Visit Diagnoses Not on filedocumented in this encounter Care Teams Reel Cart Operator Relationship Specialty Start Date End Date Carolyn Davis MD [address] [place] [address] PCP - General Family Medicine 09/04/16 documented as of this encounter
--- OUTSIDE RECORDS SUMMARY | 2024-07-19 21:57 | XMS_ITS | Patient Health Summary ---
Author Organization [facility] Address [address] [place] [address] Care Team Providers Care Diagrammer And Seamer Name Role Phone Carolyn Davis MD Primary Care Provider + Note from [facility],non-owned Affiliates and Associated Physician Practices is amultiple site organization consisting of ambulatory clinics and hospital sitesin [place], [place], [place] and [place]. This disclosure is being madepursuant to the Care Everywhere program and may not contain all information available regarding this patient. Last updated 18.[facility] Allergies No known active allergies Medications * Be aware that medications may not be up to date on this document. Alwaysverify current medications with the patient. * dilTIAZem ER 24hr (TIAZAC) 180 MG capsule Take 180 mg by mouth once daily * metoprolol tartrate (LOPRESSOR) 25 MG tablet Take 25 mg by mouth 2 times daily * QUEtiapine (SEROQUEL) 25 MG tablet Take 25 mg by mouth 2 times daily * sertraline (ZOLOFT) 50 MG tablet Take 50 mg by mouth once daily * fluticasone propionate (FLONASE ALLERGY RELIEF) 50 MCG/ACT nasal spray(Started 11/23/2016) [place] 2 Sprays into each nostril once daily Reasons: Signs and Symptoms of Nose Diseases * albuterol HFA (VENTOLIN HFA) 108 (90 BASE) MCG/ACT inhaler(Started 11/23/2016) Inhale 2 Puffs by mouth every 6 hours as needed for Cough Active Problems No known active problems Social History Tobacco Use Types Packs/Day Years Used Date Smoking Tobacco: Every Day Sex and Gender Information Value Date Recorded Sex Assigned at Not on file Gender Identity Not on file Sexual Orientation Not on file Last Filed Vital Signs Vital Sign Reading Time Taken Comments Blood Pressure 142/86 11/23/2016 10:23 AM CDT Pulse 82 11/23/2016 10:23 AM CDT Temperature 36.8 ??C (98.2 ??F) 11/23/2016 10:23 AM C DT Respiratory Rate 16 11/23/2016 10:23 AM CDT Oxygen Saturation 96% 11/23/2016 10:23 AM CDT Inhaled Oxygen Concentration - - Weight 85.3 kg (188 lb) 11/23/2016 10:23 AM CDT Height 182.9 cm (6') 11/23/2016 10:23 AM CDT Body Mass Index 25.5 11/23/2016 10:23 AM CDT Care Teams Diagrammer And Seamer Relationship Specialty Start Date End Date Carolyn Davis MD [address] [place] [address] PCP - General Family Medicine 09/04/16
--- OUTSIDE RECORDS SUMMARY | 2024-07-19 21:57 | XMS_ITS | Encounter Summary ---
Author Organization [facility] Address [address] [place] [address] Care Team Providers Care Diet Tech Name Role Phone Carolyn Davis MD Primary Care Provider + Reason for Visit * Reason Comments Sinusitis Encounter Details Date Type Department Care Team (Late st Contact Info) Description 09/04/2016 11:20 AM TOBACCO WRAPPING MACHINE TENDER Office Visit [facility] AT [address] [phone] Provider, [facility] Acute suppurative otitis media of left ear without spontaneous rupture of tympanic membrane, recurrence not specified (Primary Dx); Smoking; Acute non-recurrent maxillary sinusitis Social History Tobacco Use Types Packs/Day Years Used Date Smoking Tobacco: Every Day Sex and Gender Information Value Date Recorded Sex Assigned at Not on file Gender Identity Not on file Sexual Orientation Not on file documented as of this encounter Last Filed Vital Signs Vital Sign Reading Time Taken Comments Blood Pressure 144/82 09/04/2016 9:36 AM TOBACCO WRAPPING MACHINE TENDER Pulse 89 09/04/2016 9:36 AM TOBACCO WRAPPING MACHINE TENDER Temperature 37 ??C (98.6 ??F) 09/04/2016 9:36 AM TOBACCO WRAPPING MACHINE TENDER Respiratory Rate - - Oxygen Saturation 97% 09/04/2016 9:36 AM TOBACCO WRAPPING MACHINE TENDER Inhaled Oxygen Concentration - - Weight 88.9 kg (196 lb) 09/04/2016 9:36 AM TOBACCO WRAPPING MACHINE TENDER Height 182.9 cm (6') 09/04/2016 9:36 AM TOBACCO WRAPPING MACHINE TENDER Body Mass Index 26.58 09/04/2016 9:36 AM TOBACCO WRAPPING MACHINE TENDER documented in this encounter Patient Instructions * Patient Instructions* Brisa Mazariegos APRN-CNP - 09/04/2016 9:56 AM TOBACCO WRAPPING MACHINE TENDER Increase water intake and rest May take tylenol or ibuprofen per package directions for pain or fever. Consider sudafed for 3-5 days per package directions Warm compress to ear 10-15 minutes several times daily to help with ear pain Do not use q tips in the ear canal Follow up if symptoms do not improve in 3-4 days or resolve as expected, sooner with any questions or concerns. Otitis Media WHAT YOU NEED TO KNOW: What is otitis media? Otitis media is an ear infection. What causes otitis media? You may get an ear infection when your eustachian tubes become swollen orblocked. Eustachian tubes connect the middle ear to the back of the nose and throat. They drain fluid from the middle ear. With an ear infection, fluid builds up and is infected by germs, which grow easily in the fluid trapped behind the eardrum. What are the signs and symptoms of otitis media? ?? You have a fever or a headache. ?? You have ear pain. ?? You have trouble hearing. ?? Your ear may feel plugged or full. You may have ringing or buzzing in your ear. ?? You may be dizzy or lose your balance. ?? You may have nausea or vomiting. How is otitis media diagnosed? Your healthcare provider will look inside your ears. He may blow a puff of air inside your ears. These tests tell healthcare providers if your eardrums look healthy. Ifyour eardrum is infected, it will look red and swollen and not move as it should. A tympanogram is another test that may be done. During the test, an ear plug is put into each of your ears and air pressure is used to see how the eardrum moves. It can help your healthcare provider learn if you have fluid in your middle ear. How is otitis media treated? ?? Ibuprofen or acetaminophen helps decrease your pain and fever. They are available without a doctor's order. Ask your healthcare provider which medicine is right for you. Ask how much to take and how often to take it. These medicines can cause stomach bleeding if not taken correctly. Ibuprofen can cause kidney damage. Do not take ibuprofen if you have kidney disease, an ulcer, or allergies to aspirin. Acetaminophen can cause liver damage. Do not drink alcohol if you take acetaminophen. ?? Ear drops help treat your ear pain. ?? Antibiotics help treat a bacterial infection that caused your ear infection. How can I manage my symptoms? ?? Heat may be used to decrease your pain. Place a warm, moist washcloth on your ear. Apply for 15 to 20 minutes, 3 to 4 times a day ?? Ice helps decrease swelling and pain. Use an ice pack or put crushed ice in a plastic bag. Coverthe ice pack with a towel and place it on your ear for 15 to 20 minutes, 3 to 4 times a day for 2 days. How can I help prevent otitis media? ?? Wash your hands often. Use soap and water. Wash your hands after you use the bathroom, change a child's diapers, or sneeze. Wash your hands before you prepare or eat food. ?? Stay away from people who are ill. Some germs are easily and quickly spread through contact. When should I contact my healthcare provider? ?? Your ear pain gets worse or does not go away, even after treatment. ?? The outside of your ear is red or swollen. ?? You are vomiting or have diarrhea. ?? You have fluid coming from your ear. ?? You have questions or concerns about your condition or care. When should I seek immediate care? ?? You have a seizure. ?? You have a fever and a stiff neck. CARE AGREEMENT: You have the right to help plan your care. Learn about your health condition and how it may be treated. Discuss treatment options with your caregivers to decide what care you want to receive. You always have the right to refuse treatment. The above information is an braid cutter only. It is not intended as medical advice for individual conditions or treatments. Talk to your doctor, nurse or pharmacist before following any medical regimen to see if it is safe and effective for you. ?? 2016 [employer]. Information is for End User's use only and may not be sold, redistributed or otherwise used for commercial purposes. All illustrations and images included in CareNotes?? are the copyrighted property of [employer] or [employer]. Sinusitis, Door Liner Helper GENERAL INFORMATION: Sinusitis is inflammation or infection of your sinuses. It is most often caused by a virus. Acute sinusitis may last up to 12 weeks. Chronic sinusitis lasts longer than 12 weeks. Recurrent sinusitis is when you have 3 or more episodes of sinusitis in 1 year. Common symptoms include the following: ?? Fever ?? Pain, pressure, redness, or swelling around the forehead, cheeks, or eyes ?? Thick yellow or green discharge from your nose ?? Tenderness when you touch your face over your sinuses ?? Dry cough that happens mostly at night or when you lie down ?? Headache and face pain that is worse when you lean forward ?? Teeth pain or pain when you chew Seek immediate care for the following symptoms: ?? Vision changes such as double vision ?? Confusion or trouble thinking clearly ?? Headache and stiff neck ?? Trouble breathing Treatment for sinusitis may include medicines to relieve nasal and sinus congestion or to decrease pain and fever. Ask your healthcare provider which medicines you should take and how much is safe. Manage sinusitis: ?? Drink liquids as directed. Ask your healthcare provider how much liquid to drink each day and which liquids are best for you. Liquids will help loosen and drain the mucus in your sinuses. ?? Breathe in steam. Heat a bowl of water until you see steam. Lean over the bowl and make a tent over your head with a large towel. Breathe deeply for about 20 minutes. Be careful not to get too close to the steam or burn yourself. Do this 3 times a day. You can also breathe deeply when you take ahot shower. ?? Rinse your sinuses. Use a sinus rinse device to rinse your nasal passages with a saline (salt water) solution. This will help thin the mucus in your nose and rinse away pollen and dirt. It will also help reduce swelling so you can breathe normally. Ask how often to do this. ?? Use heat on your sinuses to decrease pain. Apply heat for 15 to 20 minutes every hour for as many days as directed. ?? Sleep with your head elevated. Place an extra pillow under your head before you go to sleep to help your sinuses drain. ?? Do not smoke and avoid secondhand smoke. If you smoke, it is never too late to quit. Ask for information about how to stop smoking if you need help. Prevent the spread of germs that cause sinusitis: Wash your hands often with soap and water. Wash your hands after you use the bathroom, change a child's diaper, or sneeze. Wash your hands before youprepare or eat food. Follow up with your healthcare provider as directed: Write down your questions so you remember to ask them during your visits. CARE AGREEMENT: You have the right to help plan your care. Learn about your health condition and how it may be treated. Discuss treatment options with your caregivers to decide what care you want to receive. You always have the right to refuse treatment. The above information is an braid cutter only. It is not intended as medical advice for individual conditions or treatments. Talk to your doctor, nurse or pharmacist before following any medical regimen to see if it is safe and effective for you. ?? 2015 [employer]. Information is for End User's use only and may not be sold, redistributed or otherwise used for commercial purposes. All illustrations and images included in CareNotes?? are the copyrighted property of [employer] or [employer]. Smoking Cessation Quitting smoking is important to your health and has many advantages. However, it is not always easy to quit since nicotine is a very addictive drug. Often times, people try 3 times or more before being able to quit. This document explains the best ways for you to prepare to quit smoking. Quitting takes hard work and a lot of effort, but you can do it. ADVANTAGES OF QUITTING SMOKING ?? You will live longer, feel better, and live better. ?? Your body will feel the impact of quitting smoking almost immediately. ?? Within 20 minutes, blood pressure decreases. Your pulse returns to its normal level. ?? After 8 hours, carbon monoxide levels in the blood return to normal. Your oxygen level increases. ?? After 24 hours, the chance of having a heart attack starts to decrease. Your breath, hair, and body stop smelling like smoke. ?? After 48 hours, damaged nerve endings begin to recover. Your sense of taste and smell improve. ?? After 72 hours, the body is virtually free of nicotine. Your bronchial tubes relax and breathingbecomes easier. ?? After 2 to 12 weeks, lungs can hold more air. Exercise becomes easier and circulation improves. ?? The risk of having a heart attack, stroke, cancer, or lung disease is greatly reduced. ?? After 1 year, the risk of coronary heart disease is cut in half. ?? After 5 years, the risk of stroke falls to the same as a nonsmoker. ?? After 10 years, the risk of lung cancer is cut in half and the risk of other cancers decreases significantly. ?? After 15 years, the risk of coronary heart disease drops, usually to the level of a nonsmoker. ?? If you are , quitting smoking will improve your chances of having a healthy baby. ?? The people you live with, especially any children, will be healthier. ?? You will have extra money to spend on things other than cigarettes. QUESTIONS TO THINK ABOUT BEFORE ATTEMPTING TO QUIT You may want to talk about your answers with your caregiver. ?? Why do you want to quit? ?? If you tried to quit in the past, what helped and what did not? ?? What will be the most difficult situations for you after you quit? How will you plan to handle them? ?? Who can help you through the tough times? Your family? Friends? A caregiver? ?? What pleasures do you get from smoking? What ways can you still get pleasure if you quit? Here are some questions to ask your caregiver: ?? How can you help me to be successful at quitting? ?? What medicine do you think would be best for me and how should I take it? ?? What should I do if I need more help? ?? What is smoking withdrawal like? How can I get information on withdrawal? GET READY ?? Set a quit date. ?? Change your environment by getting rid of all cigarettes, ashtrays, matches, and lighters in your home, car, or work. Do not let people smoke in your home. ?? Review your past attempts to quit. Think about what worked and what did not. GET SUPPORT AND ENCOURAGEMENT You have a better chance of being successful if you have help. You can get support in many ways. ?? Tell your family, friends, and co-workers that you are going to quit and need their support. Askthem not to smoke around you. ?? Get individual, group, or telephone counseling and support. Programs are available at local hospitals and health centers. Call your local health department for information about programs in your area. ?? Spiritual beliefs and practices may help some smokers quit. ?? Download a quit meter on your computer to keep track of quit statistics, such as how long you have gone without smoking, cigarettes not smoked, and money saved. ?? Get a self-help book about quitting smoking and staying off of tobacco. LEARN NEW SKILLS AND BEHAVIORS ?? Distract yourself from urges to smoke. Talk to someone, go for a walk, or occupy your time with a task. ?? Change your normal routine. Take a different route to work. Drink tea instead of coffee. Eat breakfast in a different place. ?? Reduce your stress. Take a hot bath, exercise, or read a book. ?? Plan something enjoyable to do every day. Reward yourself for not smoking. ?? Explore interactive web-based programs that specialize in helping you quit. GET MEDICINE AND USE IT CORRECTLY Medicines can help you stop smoking and decrease the urge to smoke. Combining medicine with the above behavioral methods and support can greatly increase your chances of successfully quitting smoking. ?? Nicotine replacement therapy helps deliver nicotine to your body without the negative effects and risks of smoking. Nicotine replacement therapy includes nicotine gum, lozenges, inhalers, nasal sprays, and skin patches. Some may be available yaes-cic-tlayfok and others require a prescription. ?? Antidepressant medicine helps people abstain from smoking, but how this works is unknown. This medicine is available by prescription. ?? Nicotinic receptor partial agonist medicine simulates the effect of nicotine in your brain. Thismedicine is available by prescription. Ask your caregiver for advice about which medicines to use and how to use them based on your healthhistory. Your caregiver will tell you what side effects to look out for if you choose to be on a medicine or therapy. Carefully read the information on the package. Do not use any other product containing nicotine while using a nicotine replacement product. RELAPSE OR DIFFICULT SITUATIONS Most relapses occur within the first 3 months after quitting. Do not be discouraged if you start smoking again. Remember, most people try several times before finally quitting. You may have symptoms of withdrawal because your body is used to nicotine. You may crave cigarettes, be irritable, feel very hungry, cough often, get headaches, or have difficulty concentrating. The withdrawal symptoms areonly temporary. They are strongest when you first quit, but they will go away within 10 14 days. To reduce the chances of relapse, try to: ?? Avoid drinking alcohol. Drinking lowers your chances of successfully quitting. ?? Reduce the amount of caffeine you consume. Once you quit smoking, the amount of caffeine in yourbody increases and can give you symptoms, such as a rapid heartbeat, sweating, and anxiety. ?? Avoid smokers because they can make you want to smoke. ?? Do not let weight gain distract you. Many smokers will gain weight when they quit, usually less than 10 pounds. Eat a healthy diet and stay active. You can always lose the weight gained after you quit. ?? Find ways to improve your mood other than smoking. FOR MORE INFORMATION www.smokefree.gov Document Released: 07/14/2002 Document Revised: 01/18/2013 Document Reviewed: 10/28/2012 ExitCare?? Patient Information ??2013 [employer]. CCO WRAPPING MACHINE TENDER documented in this encounter Progress Notes * Brisa Mazariegos APRN-CNP - 09/04/2016 9:41 AM CST [facility] Chief Complaint Patient presents with ??? Sinusitis SUBJECTIVE: General The history is provided by the patient. The current episode started more than 1 week ago. The problem occurs constantly. The problem has been gradually worsening. Associated symptoms include headaches. Pertinent negatives include no shortness of breath. Treatments tried: multiple otc meds. The treatment provided mild relief. About 1 mo of URI symptoms that improved for a few days and now worse again this time with more sinus symptoms and ear pain Past Medical History Diagnosis Date ??? Anxiety ??? Hypertension No current outpatient prescriptions on file prior to visit. No current facility-administered medications on file prior to visit. Past Surgical History Procedure Laterality Date ??? Negative surgical history History Social History ??? Marital status: Spouse name: N/A ??? Number of children: N/A ??? Years of education: N/A Occupational History ??? Not on file. Social History Main Topics ??? Smoking status: Current Every Day Smoker ??? Smokeless tobacco: Not on file ??? Alcohol use: Not on file ??? Drug use: Not on file ??? Sexual activity: Not on file Other Topics Concern ??? Not on file Social History Narrative ??? No narrative on file No family history on file. Current Outpatient Prescriptions Medication Sig Dispense Refill ??? dilTIAZem ER 24hr (TIAZAC) 180 MG capsule Take 180 mg by mouth once daily ??? metoprolol tartrate (LOPRESSOR) 25 MG tablet Take 25 mg by mouth 2 times daily ??? QUEtiapine (SEROQUEL) 25 MG tablet Take 25 mg by mouth 2 times daily ??? sertraline (ZOLOFT) 50 MG tablet Take 50 mg by mouth once daily ??? amoxicillin-clavulanate (AUGMENTIN) 875-125 MG tablet Take 1 Tab by mouth every 12 hours for 10days 20 Tab 0 No current facility-administered medications for this visit. No Known Allergies REVIEW OF SYSTEMS: Review of Systems Constitutional: Fevers initially HENT: Positive for congestion and ear pain. Negative for sore throat. Left ear pain and post nasal drainage Respiratory: Positive for cough. Negative for sputum production, shortness of breath and wheezing. Cough is from a tickle and then occasionally it will be productive Gastrointestinal: Negative for nausea and vomiting. Neurological: Positive for headaches. OBJECTIVE: General appearance: alert, well appearing, and in no distress. BP 144/82 (BP SITE: LEFT ARM, BP POSITION: SITTING, BP CUFF SIZE: Adult) Pulse 89 Temp 98.6 ??F (Oral) Ht 1.829 m (6') Wt 88.9 kg (196 lb) SpO2 97% BMI 26.58 kg/m2 Physical Exam ASSESSMENT: Encounter Diagnoses Name Primary? Smoking ??? Acute suppurative otitis media of left ear without spontaneous rupture of tympanic membrane, recurrence not specified Yes ??? Acute non-recurrent maxillary sinusitis PLAN: Orders Placed This Encounter ??? amoxicillin-clavulanate (AUGMENTIN) 875-125 MG tablet Sig: Take 1 Tab by mouth every 12 hours for 10 days Dispense: 20 Tab Refill: 0 Increase water intake and rest May take tylenol or ibuprofen per package directions for pain or fever. Consider sudafed for 3-5 days per package directions Warm compress to ear 10-15 minutes several times daily to help with ear pain Do not use q tips in the ear canal Follow up if symptoms do not improve in 3-4 days or resolve as expected, sooner with any questions or concerns. See patient handouts on sinusitis, ear infection and smoking cessation CCO WRAPPING MACHINE TENDER documented in this encounter Plan of Treatment Not on file documented as of this encounter Visit Diagnoses Diagnosis Acute suppurative otitis media of left ear without spontaneous rupture of tympanic membrane, recurrence not specified- Primary Smoking Tobacco use disorder Acute non-recurrent maxillary sinusitis documented in this encounter Care Teams Diet Tech Relationship Specialty Start Date End Date Carolyn Davis MD [address] [place] [address] PCP - General Family Medicine 09/04/16 documented as of this encounter
--- OUTSIDE RECORDS SUMMARY | 2024-07-19 21:57 | XMS_ITS | Encounter Summary ---
Author Organization [facility] Address [address] [place] [address] Care Team Providers Care Pathology Laboratory Aides Teacher Name Role Phone Carolyn Davis MD Primary Care Provider + Reason for Visit * Reason Onset Date Comments Follow-up 11/25/2016 Encounter Details Date Type Department Care Team (Late st Contact Info) Description 11/25/2016 Telephone [facility] [address] [phone] Brenna Rodrigues Follow-up Social History Tobacco Use Types Packs/Day Years Used Date Smoking Tobacco: Every Day Sex and Gender Information Value Date Recorded Sex Assigned at Not on file Gender Identity Not on file Sexual Orientation Not on file documented as of this encounter Plan of Treatment Not on file documented as of this encounter Visit Diagnoses Not on filedocumented in this encounter Care Teams Pathology Laboratory Aides Teacher Relationship Specialty Start Date End Date Carolyn Davis MD [address] [place] [address] PCP - General Family Medicine 09/04/16 documented as of this encounter
--- OUTSIDE RECORDS SUMMARY | 2024-07-19 21:57 | XMS_ITS | Clinical Summary ---
Author Organization [facility] Address [address] [place] [address] Care Team Providers Care Public Speaker Name Role Phone Carolyn Davis MD Primary Care Provider + Source Comments [facility],non-owned Affiliates and Associated Physician Practices is amultiple site organization consisting of ambulatory clinics and hospital sitesin [place], [place], [place] and [place]. This disclosure is being madepursuant to the Care Everywhere program and may not contain all information available regarding this patient. Last updated 18.[facility] Allergies No known active allergies Medications * Be aware that medications may not be up to date on this document. Alwaysverify current medications with the patient. Medication Sig Dispensed Refills Start Date End Date Status dilTIAZem ER 24hr (TIAZAC) 180 MG capsule Take 180 mg by mouth once daily Active metoprolol tartrate (LOPRESSOR) 25 MG tablet Take 25 mg by mouth 2 times daily Active QUEtiapine (SEROQUEL) 25 MG tablet Take 25 mg by mouth 2 times daily Active sertraline (ZOLOFT) 50 MG tablet Take 50 mg by mouth once daily Active fluticasone propionate (FLONASE ALLERGY RELIEF) 50 MCG/ACT nasal sprayIndications:Spencer al Signs and Symptoms [place] 2 Sprays into each nostril once daily Reasons: Signs and Symptoms of Nose Diseases 1 Bottle 11/23/2016 Active albuterol HFA (VENTOLIN HFA) 108 (90 BASE) MCG/ACT inhaler Inhale 2 Puffs by mouth every 6 hours as needed for Cough 1 Inhaler 11/23/2016 Active Active Problems No known active problems Social [...] Mass Index 25.5 11/23/2016 10:23 AM CDT Plan of Treatment Health Maintenance Due Date Last Done Comments COLOGUARD (AGES 45-75) - COL ON CA SCREENING 1965 COLON MONITORING 1967 COLONOSCOPY - COLON CA SCREENING 1967 CT COLONOGRAPHY - COLON CA SCREENING 1967 Colorectal Cancer Screening 1965 FIT - COLON CA SCREENING 1967 FLEX SIG - COLON CA SCREENING 1967 LIPID TESTING 1965 PNEUMOCOCCAL VACCINE (1 of 2 - PCV) 10/15/1973 HIV SCREENING 10/15/1982 HEPATITIS C SCREENING 10/11/1985 DTAP/TDAP/TD VACCINES (1 - Tdap) 10/15/1986 HEPATITIS B VACCINE (1 of 3 - 19+ 3-dose series) 10/15/1986 ZOSTER VACCINE (1 of 2) 10/15/2017 DEPRESSION SCREENING 08/03/2023 COVID-19 VACCINE ( - 2023-2 5 season) 2024 INFLUENZA VACCINE (#1) 2024 HIB VACCINE Aged Out No longer eligi ble based on patient's age to complete this topic HPV VACCINE Aged Out No longer eligi ble based on patient's age to complete this topic MENINGOCOCCAL VACCINE Aged Out No alley wendy eligible based on patient's age to complete this topic Care Teams Public Speaker Relationship Specialty Start Date End Date Carolyn Davis MD [address] [place] [address] PCP - General Family Medicine 09/04/16
--- OUTSIDE RECORDS SUMMARY | 2024-07-19 21:57 | XMS_ITS | Referral Summary ---
Author Organization [place] [address] Address [address] [place] [address] [address] [place] [address] Care Team Providers Care Head Golf Professional Name Role Phone Carolyn Davis MD Primary Care Provider Ernie Baldwin MD Unavailable [phone] Tom Bal MD Unavailable Encounters Date Type Department Care Team Description 07/18/2024 Anticoagulation Visit [facility] Cardiology [address] [place] [address] [address] [place] [address] Rommel Bueno RN Aortic valve replaced (Primary Dx) 07/13/2024 1:00 PM LAND CONSERVATION SPECIALIST Ancillary Procedure [address] [place] [address] History of mechanical aortic valve replacement 07/05/[address] [place] [address] Tom Bal MD 06/24/2024 Anticoagulation Visit [address] [place] [address] Lu Rhoades RN Aortic valve replaced (Primary Dx) 06/24/[address] [place] [address] Tom Bal MD INR results 06/15/2024 11:30 AM LAND CONSERVATION SPECIALIST Office Visit [facility] Cardiology [address] [place] [address] [place] [phone] Tom Bal MD History of mechanical aortic valve replacement (Primary Dx); Nonrheumatic aortic valve stenosis; Essential hypertension; History of tobacco abuse 05/27/2024 Anticoagulation Visit [facility] Cardiology [address] [place] [address] [place] [phone] Angela Vines RN Aortic valve replaced (Primary Dx) 05/27/2024 Telephone [place] [address] [place] [phone] Tom Bal MD 05/13/2024 Anticoagulation Visit [place] [address] [place] [phone] Lu Rhoades RN Aortic valve replaced (Primary Dx) 05/13/2024 Telephone [place] [address] [place] [phone] Tom Bal MD 04/29/2024 Anticoagulation Visit [place] [address] [place] [phone] Angela Vines RN Aortic valve replaced (Primary Dx) 04/29/2024 Telephone [place] [address] [place] [phone] Tom Bal MD 04/28/2024 11:15 AM CDT Office Visit [facility] Surgery [address] [place] [address] [place] [phone] Re Hicks NP S/P AVR (aortic valve replacement) (Primary Dx) 04/25/2024 Documentation [facility] Surgery [address] [place] [address] [address] [place] [address] Re Hicks NP INR Management 04/22/2024 Orders Only [facility] Surgery [address] [place] [address] [address] [place] [address] Re Hicks NP from Last 3 Months Allergies No known active allergies Medications QUEtiapine XR (SEROquel XR) 50 mg tablet extended release 24 hr Take 1 tablet (50 mg total) by mouth 2 (two) times a day Active rOPINIRole (REQUIP) 4 mg tablet Take 1 tablet (4 mg total) by mouth 2 (two) times a day as needed 4 Active dilTIAZem CD 240 mg 24 hr capsule Take 1 capsule (240 mg total) by mouth every evening 4 Active buPROPion SR (ZYBAN) 150 mg 12 hr tablet Take 1 tablet (150 mg total) by mouth 2 (two) times a day Active rosuvastatin (CRESTOR) 40 mg tablet Take 1 tablet (40 mg total) by mouth nightly Active metoprolol tartrate (LOPRESSOR) 25 mg immediate release tablet Take 1 tablet (25 mg total) by mouth 2 (two) times a day 60 tablet 1 4 Active acetaminophen 500 mg capsuleIndicati ons:Pain Take 2 capsules (1,000 mg total) by mouth every 6 (six) hours 4 Active Additional Information Patient taking differently:1,000 mg oralAs needed, Indications: Pain, Reported on 06/15/2024 polyethylene glycol (MIRALAX) 17 gram/dose bulk powderIndicatio ns:constipation Take 17 g by mouth daily as needed (constipation) 4 Active warfarin (COUMADIN) 5 mg tablet TAKE 1 AND 1/2 TABLETS(7.5 MG) BY MOUTH DAILY 45 tablet 1 4 Active zolpidem CR (AMBIEN CR) 6.25 mg CR tablet Take 1 tablet (6.25 mg total) by mouth nightly at bedtime 4 Active Active Problems Problem Noted Date Diagnosed Date Aortic valve replaced 04/29/2024 Aortic stenosis, severe 03/22/2024 Aortic valve stenosis 02/26/2024 Tobacco dependence 01/06/2024 Nonrheumatic aortic valve stenosis 01/06/2024 Supraventricular tachycardia 01/06/2024 Lipid screening 01/06/2024 Social History Tobacco Use Types Packs/Day Years Used Date Smoking Tobacco: Former Cigarettes 1 35.3 S tarted: 03/24/1989 Smokeless Tobacco: Never Tobacco Cessation:Counseling Given: Not Answered Comments:QUIT SMOKING 03/17/2024 Alcohol Use Standard Drinks/Week Comments No 0 [...] 03/24/2024 How often do you attend chur ch or alevism services? Never 03/24/2024 Do you belong to any clubs o r organizations such as protestant groups, unions, fraternal or athletic groups, or [...] any time in the past 12 m [facility], were you homeless or living in a usp (including now)? No 03/24/2024 Personal Safety Answer Date Recorded Have you ever been in or are you currently in a harmful physical or emotional relationship or is someone making you feel afraid or unsafe? Denies 03/22/2024 Sex and Gender Information Value Date Recorded Sex Assigned at Not on file Legal Sex Male 1:59 AM LAND CONSERVATION SPECIALIST Gender Identity Not on file Sexual Orientation Not on file Last Filed Vital Signs Vital Sign Reading Time Taken Comments Blood Pressure 114/48 07/13/2024 1:35 PM LAND CONSERVATION SPECIALIST Pulse 72 06/15/2024 11:37 AM LAND CONSERVATION SPECIALIST Temperature 36.5 ??C (97.7 ??F) 03/30/2024 12:38 PM C DT Respiratory Rate 16 04/28/2024 11:55 AM CDT Oxygen Saturation 99% 06/15/2024 11:37 AM LAND CONSERVATION SPECIALIST Inhaled Oxygen Concentration - - Weight 88.5 kg (195 lb) 06/15/2024 11:37 AM LAND CONSERVATION SPECIALIST Height 182.9 cm (6') 06/15/2024 11:37 AM LAND CONSERVATION SPECIALIST Body Mass Index 26.45 06/15/2024 11:37 AM LAND CONSERVATION SPECIALIST Plan of Treatment Not on file Medical Devices Implanted Type Area Sales Support Rep Device Identifier Shelf Expiration Date Model / Serial / Lot On-X Intrnl Valve Coronary Aortic Mechanical On X 23mm [id number] - [id number] - [id number] Implanted:Qty: 1 on 03/22/2024 by Ernie Baldwin MD at [facility] N/A: Heart On-X Intrnl [id number] 01/13/2029 [id number] / [id number] / [employer] Screw Bone Slf Drl Full Thread Locking 3.5x16mm Ti 100.035.16 - [id number] Implanted:Qty: 6 on 03/22/2024 by Ernie Baldwin MD at [facility] N/A: Chest Wall [employer] 100.035.1 6 / / [employer] Screw Bone Slf Drl Full Thread Locking 3.5x18mm Ti 100.035.18 - [id number] Implanted:Qty: 10 on 03/22/2024 by Ernie Baldwin MD at [facility] N/A: Chest Wall [employer] 100.035.1 8 / / [employer] Plate Bone Low Profile 4 Hole Box Sternum Ti 115.103.04 - [id number] Implanted:Qty: 1 on 03/22/2024 by Ernie Baldwin MD at [facility] N/A: Chest Wall [employer] 115.103.0 4 / / [employer] Plate Bone Low Profile 6 Hole O Concave Sternum Ti 115.604.06 - [id number] Implanted:Qty: 1 on 03/22/2024 by Ernie Baldwin MD at [facility] N/A: Chest Wall [employer] 115.604.0 6 / / [employer] Plate Bone Low Profile 6 Hole H Shape Sternum Ti 115.102.06 - [id number] Implanted:Qty: 1 on 03/22/2024 by Ernie Baldwin MD at [facility] N/A: Chest Wall [employer] 115.102.0 6 / / Procedures Procedure Name Priority Date/Time Associated Diagnosis Comments PROTIME-INR Routine 07/16/2024 TRANSTHORACIC ECHO (TTE) COMPLETE W DOPPLER/CF WO CONTRAST Routine 07/13/2024 1:41 PM LAND CONSERVATION SPECIALIST History of mechanical aortic valve replacement PROTIME-INR Routine 06/24/2024 PROTIME-INR Routine 05/27/2024 PROTIME-INR Routine 05/13/2024 PROTIME-INR Routine 04/29/2024 from Last 3 Months Results * (ABNORMAL) Protime-INR (07/16/2024) INR 1.90(A) 0.90 - 1.10 EXTERNAL LAB Blood us Historical Provider LAB BLOOD ORDERABLES Rita nannette Result EXTERNAL LAB * TRANSTHORACIC ECHO (TTE) COMPLETE W DOPPLER/CF WO CONTRAST (07/13/2024 1:41 PM LAND CONSERVATION SPECIALIST) Anatomical Region Laterality Modality Ultrasound 07/13/2024 1:39 PM LAND CONSERVATION SPECIALIST Narrative 07/13/2024 3:27 PM LAND CONSERVATION SPECIALIST [facility] Cardiology [address] [facility] [address], [place] [address] [address] [facility] [address], [place] [address] P:[phone] P:[phone] Echocardiographic Report Patient Name: STEPHAN [place] A : 1965 Study Date: 07/13/2024 1:39:06 PM Gender: M Tech: Location: [facility] Provider: TOM BAL Height(Cm): 183 BSA: 2.12 Weight(Kg): 88.5 Heart Rate: 64 BP: 114 / 48 Quality: Good Order Provider: TOM BAL ?? PROCEDURES: Echocardiographic Report: Transthoracic echocardiogram with complete 2D, M-Mode, and color Doppler examination. With Strain Analysis. ?? INDICATIONS: Z95.2 Presence of prosthetic heart valve. ?? MEASUREMENTS: 2D/MM ?Value ? Range ?Doppler ?Value ? Range Estimated EF ? 71 % ? BEVERLY Vmax ? 1.87 cm2 ?[ 2.00 - 4.00 ] LVIDd 2D ? 4.90 cm ? [ 4.20 - 5.80 ] ?AV Mean PG ? 9 mmHg LVIDs 2D ? 3.44 cm ? [ 2.50 - 4.00 ] ?AV Peak Tesfaye ?2.22 m/s ?[ 1.00 - 1.70 ] LVPWd 2D ? 1.22 cm ? [ 0.60 - 1.00 ] ?AV Peak PG ? 20 mmHg IVSd 2D ?1.24 cm ? [ 0.60 - 1.00 ] ?AV VTI ? 47.18 cm LA Volume Index ?23 cc/m2 ?[ 16 - 34 ] ?LVOT Diam ?2.01 cm ? [ 1.70 - 2.10 ] LVOT Peak Tesfaye ?1.31 m/s ?[ 0.70 - 1.10 ] LVOT VTI ? 32.64 cm MV E Peak Tesfaye ?1.04 m/s ?[ 0.60 - 1.30 ] MV A Peak Tesfaye ?0.99 m/s ?[ 1.00 - 1.20 ] MV Decel Time ?250 msec ?[ 104 - 258 ] 2D/MM ?Value ? Range ?Doppler ?Value ? Range - ?? FINDINGS: Interpretation Site: Exam was interpreted at [facility]. Left Ventricle: Normal left ventricular size. Mild concentric left ventricular hypertrophy. Normal global left ventricular systolic function. Diastolic dysfunction is present. Ejection Fraction is visually estimated to be 71 %. Global Longitudinal Strain is -20 %. Right Ventricle: Normal right ventricular size. Normal right ventricular systolic function. Left Atrium: Left atrial size is within upper limits of normal. Right Atrium: The right atrium is normal in size. Atrial Septum: Normal atrial septum. Mitral Valve: Normal appearance of the mitral valve. Trivial regurgitation of the mitral valve. Aortic Valve: S/P SAVR using 23-millimeter Morro mechanical aortic valve. Peak Velocity of 2.20 m/s. Mean gradient of 9.0 mmHg. Gradients normal for valve type and size. Tricuspid Valve: Normal appearance of the tricuspid valve. Right ventricular systolic pressure could not be estimated due to inadequate visualization of the tricuspid regurgitation jet. Pulmonic Valve: Pulmonic valve not well visualized. Pericardium: Normal pericardium with no significant pericardial effusion. Aorta: Aortic root not well visualized. IVC: Normal size and no respiratory collapse consistent with elevated right atrial pressure (5-10 mmHg). ?? CONCLUSIONS: Normal left ventricular size. Mild left ventricular hypertrophy. Normal global left ventricular systolic function. Diastolic dysfunction is present. Ejection Fraction measured at 71 %. Global Longitudinal Strain is -20 %. Normal RV size and systolic function. Normal appearance of the mitral valve. Trivial MR. S/P SAVR using 23-millimeter Morro mechanical aortic valve. Aortic valve prosthesis not well visualized. Peak Velocity of 2.20 m/s. Mean gradient of 9.0 mmHg. DVI 0.59. Gradients normal for valve type and size. Unable to assess RVSP due to inadequate TR jet. Electronically Signed By: Tom Bal MD, [facility] 07/13/2024 3:26:22 PM LAND CONSERVATION SPECIALIST Procedure Note Tom Bal MD - 07/13/2024 [facility] Medical [facility] Cardiology [address] [facility] [address], [place] [address] [address] [facility] [address], [place] [address] P:[phone] P:[phone] Echocardiographic Report Patient Name: STEPHAN NUNEZ A : 1965 Study Date: 07/13/2024 1:39:06 PM Gender: M Tech: [place]ET[place] Location: [facility] Provider: TOM BAL Height(Cm): 183 BSA: 2.12 Weight(Kg): 88.5 Heart Rate: 64 BP: 114 / 48 Quality: Good Order Provider: TOM BAL PROCEDURES: Echocardiographic Report: Transthoracic echocardiogram with complete 2D, M-Mode, and color Dopplerexamination. With Strain Analysis. INDICATIONS: Z95.2 Presence of prosthetic heart valve. MEASUREMENTS: 2D/MM Value Range Doppler ValueRange Estimated EF 71 % BEVERLY Vmax 1.87cm2 [ 2.00 - 4.00 ] LVIDd 2D 4.90 cm [ 4.20 - 5.80 ] AV Mean PG 9mmHg LVIDs 2D 3.44 cm [ 2.50 - 4.00 ] AV Peak Tesfaye 2.22m/s [ 1.00 - 1.70 ] LVPWd 2D 1.22 cm [ 0.60 - 1.00 ] AV Peak PG 20mmHg IVSd 2D 1.24 cm [ 0.60 - 1.00 ] AV VTI 47.18cm LA Volume Index 23 cc/m2 [ 16 - 34 ] LVOT Diam 2.01 cm[ 1.70 - 2.10 ] LVOT Peak Tesfaye 1.31 m/s [ 0.70 - 1.10 ] LVOT VTI 32.64 cm MV E Peak Tesfaye 1.04 m/s [ 0.60 - 1.30 ] MV A Peak Tesfaye 0.99 m/s [ 1.00 - 1.20 ] MV Decel Time 250 msec [ 104 - 258 ] 2D/MM Value Range Doppler ValueRange - FINDINGS: Interpretation Site: Exam was interpreted at [facility]. Left Ventricle: Normal left ventricular size. Mild concentric left ventricularhypertrophy. Normal global left ventricular systolic function. Diastolic dysfunction is present.Ejection Fraction is visually estimated to be 71 %. Global Longitudinal Strain is -20 %. Right Ventricle: Normal right ventricular size. Normal right ventricular systolicfunction. Left Atrium: Left atrial size is within upper limits of normal. Right Atrium: The right atrium is normal in size. Atrial Septum: Normal atrial septum. Mitral Valve: Normal appearance of the mitral valve. Trivial regurgitation of the mitralvalve. Aortic Valve: S/P SAVR using 23-millimeter Morro mechanical aortic valve. Peak Velocity of 2.20 m/s. Mean gradient of 9.0 mmHg. Gradients normal forvalve type and size. Tricuspid Valve: Normal appearance of the tricuspid valve. Right ventricular systolicpressure could not be estimated due to inadequate visualization of the tricuspidregurgitation jet. Pulmonic Valve: Pulmonic valve not well visualized. Pericardium: Normal pericardium with no significant pericardial effusion. Aorta: Aortic root not well visualized. IVC: Normal size and no respiratory collapse consistent with elevated rightatrial pressure (5-10 mmHg). CONCLUSIONS: Normal left ventricular size. Mild left ventricular hypertrophy. Normalglobal left ventricular systolic function. Diastolic dysfunction is present. EjectionFraction measured at 71 %. Global Longitudinal Strain is -20 %. Normal RV size and systolic function. Normal appearance of the mitral valve. Trivial MR. S/P SAVR using 23-millimeter Riley mechanical aortic valve. Aortic valveprosthesis not well visualized. Peak Velocity of 2.20 m/s. Mean gradient of 9.0 mmHg. DVI0.59. Gradients normal for valve type and size. Unable to assess RVSP due to inadequate TR jet. Electronically Signed By: Tom Bal MD, [facility] 07/13/2024 3:26:22 PM LAND CONSERVATION SPECIALIST us Tom Bal MD CV ECHO PROCEDURES Final Result * (ABNORMAL) Protime-INR (06/24/2024) INR 2.70(A) 0.90 - 1.10 EXTERNAL LAB Blood Result [facility] Provider MD LAB BLOOD ORDERABLES Rita l Result EXTERNAL LAB * (ABNORMAL) Protime-INR (05/27/2024) INR 2.90(A) 0.90 - 1.10 EXTERNAL LAB Blood Result [facility] Provider MD LAB BLOOD ORDERABLES Rita l Result EXTERNAL LAB * (ABNORMAL) Protime-INR (05/13/2024) INR 2.40(A) 0.90 - 1.10 EXTERNAL LAB Blood Result [facility] Provider MD LAB BLOOD ORDERABLES Rita l Result Performing Organization Address City/[facility]/ZIP Co de Phone Number EXTERNAL LAB * (ABNORMAL) Protime-INR (04/29/2024) INR 3.40(A) 0.90 - 1.10 EXTERNAL LAB Blood Result [facility] Provider MD LAB BLOOD ORDERABLES Rita l Result Performing Organization Address City/[facility]/ZIP Co de Phone Number EXTERNAL LAB from Last 3 Months Insurance [facility] [place] [id number] [employer] [facility] [employer] OPEN ACCESS [employer] [facility] [employer] OPEN ACCESS [facility] OPEN ACCESS [employer] [facility] [employer]ES Advance Directives For more information, please contact: [phone] * Full Code (Latest Code Status on File) Date Activated Date Inactivated Comments 03/22/2024 12:28 PM 03/30/2024 6:00 PM Care Teams Head Golf Professional Relationship Specialty Start Date End Date Carolyn Davis MD [address] [facility] [address] [place] [address] PCP - General 10/31/15 Ernie Baldwin MD [address] [facility] [id number] [place] [address] Surgeon Cardiothoracic Surgery 03/29/24 Tom Bal MD [address] [facility] [address] [place] [address] Consulting Physician Cardiology 03/29/24
--- OUTSIDE RECORDS SUMMARY | 2024-07-19 21:57 | XMS_ITS | Referral Summary ---
Author Organization [facility] Address [address] [facility] [place] [address] Care Team Providers Care Beading Machine Operator Name Role Phone Carolyn Davis MD Primary Care Provider + Source Comments [facility],non-owned Affiliates and Associated Physician Practices is amultiple site organization consisting of ambulatory clinics and hospital sitesin [place], [place], [place] and [place]. This disclosure is being madepursuant to the Care Everywhere program and may not contain all information available regarding this patient. Last updated 18.[facility] Allergies No known active allergies Medications * [...] MCG/ACT nasal sprayIndications:Spencer al Signs and Symptoms [place] 2 Sprays into each nostril once daily [...] 11/23/2016 10:23 AM CDT Plan of Treatment Not on file Care Teams Beading Machine Operator Relationship Specialty Start Date End Date Carolyn Davis MD [address] [facility] [address] [place] [address] PCP - General Family Medicine 09/04/16
--- OUTSIDE RECORDS SUMMARY | 2024-07-19 21:57 | XMS_ITS | Clinical Summary ---
Author Organization [facility] [address] Address [address] [place] [address] Care Team Providers Care Plate Stacker Hand Name Role Phone Craolyn Davis MD Primary Care Provider Ernie Baldwin MD Unavailable Tom Bal MD Unavailable Allergies No known active allergies Medications QUEtiapine [...] 01/06/2024 Supraventricular tachycardia 01/06/2024 Lipid screening 01/06/2024 Encounters Date Type Department Care Team Description 07/18/2024 Anticoagulation Visit [facility] Cardiology [address] [place] [address] [place] [phone] Rommel Bueno RN Aortic valve replaced (Primary Dx) 07/13/2024 1:00 PM PROJECT DEVELOPER Ancillary Procedure [facility] Cardiology [address] [place] [address] [place] [phone] History of mechanical aortic valve replacement 07/05/2024 Telephone [facility] Cardiology [address] [place] [address] [place] [phone] Tom Bal MD 06/24/2024 Anticoagulation Visit [facility] Cardiology [address] [place] [address] [place] [phone] Lu Rhoades RN Aortic valve replaced (Primary Dx) 06/24/2024 Telephone [facility] Cardiology [address] [place] [address] [place] [phone] Tom Bal MD INR results 06/15/2024 11:30 AM PROJECT DEVELOPER Office Visit [facility] Cardiology [address] [place] [address] [place] [phone] Tom Bal MD History of mechanical aortic valve replacement (Primary Dx); Nonrheumatic aortic valve stenosis; Essential hypertension; History of tobacco abuse 05/27/2024 Anticoagulation Visit [facility] Cardiology [address] [place] [address] [place] [phone] Angela Vines RN Aortic valve replaced (Primary Dx) 05/27/2024 Telephone [place] [address] [place] [phone] Tom Bal MD 05/13/2024 Anticoagulation Visit [place] [address] [place] [phone] Lu Rhoades RN Aortic valve replaced (Primary Dx) 05/13/2024 Telephone [place] [address] [place] [phone] Tom Bal MD 04/29/2024 Anticoagulation Visit [place] [address] [place] [phone] Angela Vines RN Aortic valve replaced (Primary Dx) 04/29/2024 Telephone [place] [address] [place] [phone] Tom Bal MD 04/28/2024 11:15 AM CDT Office Visit [facility] [address] [place] [address] [address] [place] [address] Re Hicks NP S/P AVR (aortic valve replacement) (Primary Dx) 04/25/2024 Documentation [facility] [address] [place] [address] [address] [place] [address] Re Hicks NP INR Management 04/22/2024 Orders Only [facility] [address] [place] [address] [address] [place] [phone] Re Hicks NP from Last 3 Months Surgical History Surgery Date Site/Laterality Comments TYMPANOSTOMY TUBE PLACEMENT COLONOSCOPY CARDIAC CATHETERIZATION 02/23/2024 OTHER SURGICAL HISTORY [facility] Medical History Medical History Date Comments Paroxysmal SVT (supraventric ular tachycardia) (HCC) Hypertension Sleep apnea uses cpap Nonrheumatic aortic (valve) stenosis Heart murmur Atrial fibrillation (CMS/HCC) (HCC) Seizures (HCC) 1 x 3-4 years ag o d/t ETHO Depression TIA (transient ischemic attack) hosp 03/08/2024 - 03/10/2024 H/O ETOH abuse went to rehab fo r 3 months Arthritis SOB (shortness of breath) end o f day chest feels tight and uncomfortable Family History Medical History Relation Name Comments Other Father Alive and well; Cancer Mother Cancer, unknown ; Cause of : Cancer, unknown Relation Name Status Comments Father Mother Social History Tobacco Use Types Packs/Day Years [...] How often do you attend chur or baptism services? Never 03/24/2024 Do you belong to any clubs o r organizations such as roman catholic groups, unions, fraternal or athletic groups, or [...] any time in the past 12 m [facility], were you homeless or living [...] on file Legal Sex Male 1:59 AM PROJECT DEVELOPER Gender Identity Not on file Sexual Orientation Not on file Obstetrics History Last Filed Vital Signs Vital Sign Reading Time Taken Comments Blood Pressure 114/48 07/13/2024 1:35 PM PROJECT DEVELOPER Pulse 72 06/15/2024 11:37 AM PROJECT DEVELOPER Temperature 36.5 ??C (97.7 ??F) 03/30/2024 12:38 PM C DT Respiratory Rate 16 04/28/2024 11:55 AM CDT Oxygen Saturation 99% 06/15/2024 11:37 AM PROJECT DEVELOPER Inhaled Oxygen Concentration - - Weight 88.5 kg (195 lb) 06/15/2024 11:37 AM PROJECT DEVELOPER Height 182.9 cm (6') 06/15/2024 11:37 AM PROJECT DEVELOPER Body Mass Index 26.45 06/15/2024 11:37 AM PROJECT DEVELOPER Plan of Treatment Health Maintenance Due Date Last Done Comments Colon Cancer Screening-Colonoscopy 1965 Depression Screening 1965 Hepatitis C Screening 1965 Prostate Cancer Screening-PSA 1965 DTaP/Tdap/Td Vaccine (1 - Tdap) 10/15/1978 Hepatitis B Screening 10/15/1985 Regular Well Visit/Exam 18-64 10/15/1985 Zoster Vaccine (1 of 2) 10/15/2017 Covid-19 Vaccine (3 - 2023-2 5 season) 2024 06/05/2021, 05/15/2021 Influenza Vaccine (#1) 2024 Pneumococcal vaccine <65 Aged Out No longer eligible based on patient's age to complete this topic Medical Devices Implanted Type Area Manager Of Health Device Identifier Shelf Expiration Date Model / Serial / Lot On-X Intrnl Valve Coronary Aortic Mechanical On X 23mm [id number] - [id number] - [id number] Implanted:Qty: 1 on 03/22/2024 by Ernie Baldwin MD at [facility] N/A: Heart On-X Intrnl [id number] 01/13/2029 [id number] / [id number] / [employer] Screw Bone Slf Drl Full Thread Locking 3.5x16mm Ti 100.035.16 - [id number] Implanted:Qty: 6 on 03/22/2024 by Ernie Baldwin MD at [facility] N/A: Chest Wall [employer] 100.035.1 6 / / [employer] Screw Bone Slf Drl Full Thread Locking 3.5x18mm Ti 100.035.18 - [id number] Implanted:Qty: 10 on 03/22/2024 by Ernie Baldwin MD at [facility] N/A: Chest Wall [employer] 100.035.1 8 / / [employer] Plate Bone Low Profile 4 Hole Box Sternum Ti 115.103.04 - [id number] Implanted:Qty: 1 on 03/22/2024 by Ernie Baldwin MD at [facility] N/A: Chest Wall [employer] 115.103.0 4 / / [employer] Plate Bone Low Profile 6 Hole O Concave Sternum Ti 115.604.06 - [id number] Implanted:Qty: 1 on 03/22/2024 by Ernie Baldwin MD at [facility] N/A: Chest Wall [employer] 115.604.0 6 / / [employer] Plate Bone Low Profile 6 Hole H Shape Sternum Ti 115.102.06 - [id number] Implanted:Qty: 1 on 03/22/2024 by Ernie Baldwin MD at [facility] N/A: Chest Wall [employer] 115.102.0 6 / / Procedures Procedure Name Priority Date/Time Associated Diagnosis Comments PROTIME-INR Routine 07/16/2024 TRANSTHORACIC ECHO (TTE) COMPLETE W DOPPLER/CF WO CONTRAST Routine 07/13/2024 1:41 PM PROJECT DEVELOPER History of mechanical aortic valve replacement PROTIME-INR Routine 06/24/2024 PROTIME-INR Routine 05/27/2024 PROTIME-INR Routine 05/13/2024 PROTIME-INR Routine 04/29/2024 from Last 3 Months Results * (ABNORMAL) Protime-INR (07/16/2024) INR 1.90(A) 0.90 - 1.10 EXTERNAL LAB Blood us Historical Provider LAB BLOOD ORDERABLES Rita l Result EXTERNAL LAB * TRANSTHORACIC ECHO (TTE) COMPLETE W DOPPLER/CF WO CONTRAST (07/13/2024 1:41 PM PROJECT DEVELOPER) Anatomical Region Laterality Modality Ultrasound 07/13/2024 1:39 PM PROJECT DEVELOPER Narrative 07/13/2024 3:27 PM PROJECT DEVELOPER [facility] Cardiology [address], [place] [address] [address] [facility] [facility] [address], [place] [address] P:[phone] P:[phone] Echocardiographic Report Patient Name: STEPHAN NUNEZ A : 1965 Study Date: 07/13/2024 1:39:06 PM Gender: M Tech: Location: [facility] Provider: TOM BAL Height(Cm): 183 BSA: 2.12 [...] FINDINGS: Interpretation Site: Exam was interpreted at [facility]. Left Ventricle: Normal left ventricular size. [...] valve. Aortic Valve: S/P SAVR using 23-millimeter [place] mechanical aortic valve. Peak Velocity of 2.20 [...] valve. Trivial MR. S/P SAVR using 23-millimeter [place] mechanical aortic valve. Aortic valve prosthesis not well visualized. Peak Velocity of 2.20 m/s. Mean gradient of 9.0 mmHg. DVI 0.59. Gradients normal for valve type and size. Unable to assess RVSP due to inadequate TR jet. Electronically Signed By: Tom Bal MD, [facility] 07/13/2024 3:26:22 PM PROJECT DEVELOPER Procedure Note Tom Bal MD - 07/13/2024 [facility] Cardiology [address] [facility] [address], [place] [address] [address] [facility] [address], [address], [place] [address] P:[phone] P:[phone] Echocardiographic Report Patient Name: STEPHAN NUNEZ A : 1965 Study Date: 07/13/2024 1:39:06 PM Gender: M Tech: [place]ET[place] Location: [facility] Provider: TOM BAL Height(Cm): 183 BSA: 2.12 [...] FINDINGS: Interpretation Site: Exam was interpreted at [facility]. Left Ventricle: Normal left ventricular size. [...] mitralvalve. Aortic Valve: S/P SAVR using 23-millimeter [place] mechanical aortic valve. Peak Velocity of 2.20 [...] using 23-millimeter [place] mechanical aortic valve. Aortic valveprosthesis not well visualized. Peak Velocity of 2.20 m/s. Mean gradient of 9.0 mmHg. DVI0.59. Gradients normal for valve type and size. Unable to assess RVSP due to inadequate TR jet. Electronically Signed By: Tom Bal MD, [facility] 07/13/2024 3:26:22 PM PROJECT DEVELOPER Result [facility] Tom Bal MD CV ECHO PROCEDURES Final Result * (ABNORMAL) Protime-INR (06/24/2024) [facility] INR 2.70(A) 0.90 - 1.10 EXTERNAL LAB Blood Result [facility] Historical Provider LAB BLOOD ORDERABLES Rita l Result Performing Organization Address [facility]/ZIP Co de Phone Number EXTERNAL LAB * (ABNORMAL) Protime-INR (05/27/2024) [facility] INR 2.90(A) 0.90 - 1.10 EXTERNAL LAB Blood Result [facility] Historical Provider LAB BLOOD ORDERABLES Rita l Result EXTERNAL LAB * (ABNORMAL) Protime-INR (05/13/2024) INR 2.40(A) 0.90 - 1.10 EXTERNAL LAB Blood Historical Provider MD LAB BLOOD ORDERABLES Rita l Result EXTERNAL LAB * (ABNORMAL) Protime-INR (04/29/2024) INR 3.40(A) 0.90 - 1.10 EXTERNAL LAB Blood Historical Provider MD LAB BLOOD ORDERABLES Rita l Result EXTERNAL LAB from Last [address] [facility] EMPLOYEES [employer] [facility] H[employer]/PPO Address: [address] [address] [place] [address] [employer] OPEN [employer] [facility] [employer]ES [employer] H[employer]/PPO Address: [facility] [address] [place] [address] CIGNA OPEN ACCESS CIGNA OPEN ACCESS [facility] [employer] EM[employer]OYEES [employer] [facility] H[employer]/PPO Address: [address] [address] [place] [address] Advance Directives For more information, please contact: [phone] * Full Code (Latest Code Status on File) Date Activated Date Inactivated Comments 03/22/2024 12:28 PM 03/30/2024 6:00 PM Care Teams Plate Stacker Hand Relationship Specialty Start Date End Date Carolyn Davis MD [address] [place] [address] PCP - General 10/31/15 Ernie Baldwin MD [id number] [place] [address] Surgeon Cardiothoracic Surgery 03/29/24 Tom Bal MD [address] [facility] [address] [place] [address] Consulting Physician Cardiology 03/29/24
--- OUTSIDE RECORDS SUMMARY | 2024-07-19 21:57 | XMS_ITS | Encounter Summary ---
Author Organization [facility] Address [address] [place] [address] Care Team Providers Care Loom Changer Name Role Phone Carolyn Davis MD Primary Care Provider + Reason for Visit * Reason Comments Sinusitis Ear Problem Encounter Details Date Type Department Care Team (Late st Contact Info) Description 11/23/2016 10:40 AM CDT Office Visit [facility] AT [address] [phone] Provider, [facility] Acute sinusitis, recurrence not specified, unspecified location (Primary Dx); Acute bronchitis, unspecified organism; Bilateral otitis media, unspecified chronicity, unspecified otitis media type Social History Tobacco Use Types Packs/Day Years [...] Mass Index 25.5 11/23/2016 10:23 AM CDT documented in this encounter Patient Instructions * Patient Instructions* Brad Alvarado APRN-CNP - 11/23/2016 11:07 AM CDT Sinusitis WHAT YOU NEED TO KNOW: What is sinusitis? Sinusitis is inflammation or infection of your sinuses. It is most often caused by a virus. Acute sinusitis may last up to 12 weeks. Chronic sinusitis lasts longer than 12 weeks. Recurrent sinusitis is when you have 3 or more episodes of sinusitis in 1 year. What increases my risk for sinusitis? ?? Medical conditions, such as an upper respiratory infection, allergies, asthma, or cystic fibrosis ?? Dental infections or procedures, such as gum infections, tooth decay, tooth removal, root canal,or a tooth implant ?? Abnormal sinus structure, such as nasal growths, swollen tonsils, or a deviated septum ?? A weak immune system, from diseases such as diabetes or HIV ?? Smoking What are the signs and symptoms of sinusitis? ?? Fever ?? Pain, pressure, redness, or [...] Teeth pain or pain when you chew How is sinusitis diagnosed? Your healthcare provider will examine you and ask about your symptoms. He will check inside your nose using a nasal speculum. This is a small tool used to open your nostrils. A sample of the mucus from your nose may show what germ is causing your infection. If you have chronic sinusitis, you may need imaging tests. How is sinusitis treated? Your symptoms may go away on their own. You may need any of the following: ?? Acetaminophen decreases pain and fever. It is available without a doctor's order. Ask how much to take and how often to take it. Follow directions. Acetaminophen can cause liver damage if not taken correctly. ?? NSAIDs , such as ibuprofen, help decrease swelling, pain, and fever. This medicine is available with or without a doctor's order. NSAIDs can cause stomach bleeding or kidney problems in certain people. If you take blood thinner medicine, always ask if NSAIDs are safe for you. Always read the medicine label and follow directions. Do not give these medicines to children under 6 months of age without direction from your child's healthcare provider. ?? Nasal steroid sprays may help decrease inflammation in your nose and sinuses. ?? Decongestants help reduce swelling and drain mucus in the nose and sinuses. They may help you breathe easier. ?? Antihistamines help dry mucus in the nose and relieve sneezing. How can I manage my symptoms? ?? Rinse your sinuses. Use a sinus rinse device to rinse your nasal passages with a saline (salt water) solution. This will help thin the mucus in your nose and rinse away pollen and dirt. It will also help reduce swelling so you can breathe normally. Ask your healthcare provider how often to do this. ?? Breathe in steam. Heat a bowl [...] deeply when you take ahot shower. ?? Sleep with your head elevated. Place an extra pillow under your head before you go to sleep to help your sinuses drain. ?? Drink liquids as directed. Ask your healthcare provider how much liquid to drink each day and which liquids are best for you. Liquids will thin the mucus in your nose and help it drain. Avoid drinks that contain alcohol or caffeine. ?? Do not smoke, and avoid secondhand smoke. Nicotine and other chemicals in cigarettes and cigars can make your symptoms worse. Ask your healthcare provider for information if you currently smoke and need help to quit. E-cigarettes or smokeless tobacco still contain nicotine. Talk to your healthcare provider before you use these products. How can I help prevent the spread of germs that cause sinusitis? Wash your hands often with soap and water. Wash your hands after you use the bathroom, change a child's diaper, or sneeze. Wash your hands before you prepare or eat food. When should I seek immediate care? ?? Your eye and eyelid are red, swollen, and painful. ?? You cannot open your eye. ?? You have vision changes, such as double vision. ?? Your eyeball bulges out or you cannot move your eye. ?? You are more sleepy than normal, or you notice changes in your ability to think, move, or talk. ?? You have a stiff neck, a fever, or a bad headache. ?? You have swelling of your forehead or scalp. When should I contact my healthcare provider? ?? Your symptoms get worse after 5 to 7 days. ?? Your symptoms do not go away after 10 days. ?? You have nausea and vomiting. ?? Your nose is bleeding. ?? You have questions or concerns about your condition or care. CARE AGREEMENT: You have the right to help plan your care. Learn about your health condition and how it may be treated. Discuss treatment options with your caregivers to decide what care you want to receive. You always have the right to refuse treatment. The above information is an computer aided design technician only. It is not intended as medical advice for individual conditions or treatments. Talk to your doctor, nurse or pharmacist before following any medical regimen to see if it is safe and effective for you. ?? 2016 [employer]. Information is for End User's use only and may not be sold, redistributed or otherwise used for commercial purposes. All illustrations and images included in CareNotes?? are the copyrighted property of [employer]. or [employer]. documented in this encounter Progress Notes * Brad Alvarado APRN-CNP - 11/23/2016 10:55 AM CDT [facility] Chief Complaint Patient presents with ??? Sinusitis ??? Ear Problem SUBJECTIVE: General The history is provided by the patient (51 y/o m). This is a new problem. Episode onset: 10 days The problem occurs constantly. The pain is moderate. Body Location: ear pain, sinus pressure/pain, cough, tired, Associated symptoms include headaches. Pertinent negatives include no abdominal pain and no shortness of breath. Relieved by: sudafed, apap cold The treatment provided mild relief. Past Medical History: Diagnosis Date ??? Anxiety ??? Hypertension Current Outpatient Prescriptions on File Prior to Visit Medication Sig Dispense Refill ??? dilTIAZem ER 24hr (TIAZAC) 180 MG capsule Take 180 mg by mouth once daily ??? metoprolol tartrate (LOPRESSOR) 25 MG tablet Take 25 mg by mouth 2 times daily ??? QUEtiapine (SEROQUEL) 25 MG tablet Take 25 mg by mouth 2 times daily ??? sertraline (ZOLOFT) 50 MG tablet Take 50 mg by mouth once daily No current facility-administered medications on file prior to visit. Past Surgical History: Procedure Laterality Date ??? NEGATIVE SURGICAL HISTORY Social History Social History ??? Marital status: Spouse name: N/A ??? Number of children: N/A ??? Years of education: N/A Occupational History ??? Not on file. Social History Main Topics ??? Smoking status: Current Every Day Smoker ??? Smokeless tobacco: Not on file ??? Alcohol use Not on file ??? Drug use: Not on file ??? Sexual activity: Not on file Other Topics Concern ??? Not on file Social History Narrative No family history on file. Current Outpatient Prescriptions Medication Sig Dispense Refill ??? fluticasone propionate (FLONASE ALLERGY RELIEF) 50 MCG/ACT nasal spray [place] 2 Sprays into eachnostril once daily Reasons: Signs and Symptoms of Nose Diseases 1 Bottle 0 ??? albuterol HFA (VENTOLIN HFA) 108 (90 BASE) MCG/ACT inhaler Inhale 2 Puffs by mouth every 6 hours as needed for Cough 1 Inhaler 0 ??? amoxicillin-clavulanate (AUGMENTIN) 875-125 MG tablet Take 1 Tab by mouth 2 times daily with morning and evening meal for 10 days 20 Tab 0 ??? dilTIAZem ER 24hr (TIAZAC) 180 MG capsule Take 180 mg by mouth once daily ??? metoprolol tartrate (LOPRESSOR) 25 MG tablet Take 25 mg by mouth 2 times daily ??? QUEtiapine (SEROQUEL) 25 MG tablet Take 25 mg by mouth 2 times daily ??? sertraline (ZOLOFT) 50 MG tablet Take 50 mg by mouth once daily No current facility-administered medications for this visit. No Known Allergies REVIEW OF SYSTEMS: Review of Systems Constitutional: Positive for chills, fever and malaise/fatigue. HENT: Positive for congestion and ear pain. Negative for sore throat. Sinus pressure/pain Respiratory: Positive for cough, sputum production and wheezing. Negative for hemoptysis and shortness of breath. Cardiovascular: Negative. Gastrointestinal: Positive for nausea. Negative for abdominal pain and diarrhea. Musculoskeletal: Negative. Skin: Negative. Neurological: Positive for headaches. OBJECTIVE: General appearance: alert, well appearing, and in no distress. BP 142/86 (BP SITE: LEFT ARM, BP POSITION: SITTING, BP CUFF SIZE: Adult) Pulse 82 Temp 98.2 ??F (Oral) Resp 16 Ht 1.829 m (6') Wt 85.3 kg (188 lb) SpO2 96% BMI 25.5 kg/m2 Physical Exam Constitutional: He is oriented to person, place, and time and well-developed, well-nourished, and in no distress. HENT: Bilaterally tm's, and posterior buccal mucosa erythema, edema, No exudate Neck: Normal range of motion. Neck supple. Cardiovascular: Normal rate and regular rhythm. Pulmonary/Chest: No respiratory distress. He has wheezes. He has no rales. He exhibits no tenderness. Neurological: He is alert and oriented to person, place, and time. ASSESSMENT: No results found for this visit on 11/23/16. Encounter Diagnoses Name Primary? Acute sinusitis, recurrence not specified, unspecified location Yes ??? Acute bronchitis, unspecified organism ??? Bilateral otitis media, unspecified chronicity, unspecified otitis media type PLAN: Orders Placed This Encounter ??? fluticasone propionate (FLONASE ALLERGY RELIEF) 50 MCG/ACT nasal spray Sig: [place] 2 Sprays into each nostril once daily Reasons: Signs and Symptoms of Nose Diseases Dispense: 1 Bottle Refill: 0 ??? albuterol HFA (VENTOLIN HFA) 108 (90 BASE) MCG/ACT inhaler Sig: Inhale 2 Puffs by mouth every 6 hours as needed for Cough Dispense: 1 Inhaler Refill: 0 ??? amoxicillin-clavulanate (AUGMENTIN) 875-125 MG tablet Sig: Take 1 Tab by mouth 2 times daily with morning and evening meal for 10 days Dispense: 20 Tab Refill: 0 documented in this encounter Plan of Treatment Not on file documented as of this encounter Visit Diagnoses Diagnosis Acute sinusitis, recurrence not specified, unspecified location- Primary Acute bronchitis, unspecified organism Bilateral otitis media, unspecified chronicity, unspecified otitis media type documented in this encounter Care Teams Loom Changer Relationship Specialty Start Date End Date Carolyn Davis MD [address] [facility] [address] [place] [address] PCP - General Family Medicine 09/04/16 documented as of this encounter
--- OUTSIDE RECORDS SUMMARY | 2024-07-19 21:58 | XMS_ITS | Encounter Summary ---
Author Organization [facility] Healthcare Address [address] [place] [address] Care Team Providers Care Double Needle Operator Name Role Phone Carolyn Davis MD Primary Care Provider Ernie Baldwin MD Unavailable [phone] Tom De Jesus MD Unavailable Encounter Details Date Type Department Care Team (Latest Contact Info) Description 06/24/2024 Anticoagulation Visit [facility] Medical Group Cardiology [address] [place] [address] Lu Rhoades, RN Aortic valve replaced (Primary Dx) Social [...] How often do you attend chur or advent services? Never 03/24/2024 Do you belong to any clubs o r organizations such as mormon groups, unions, fraternal or athletic groups, or [...] any time in the past 12 m [facility], were you homeless or living in a alf (including now)? No 03/24/2024 Personal Safety Answer Date Recorded Have you ever been in or are you currently in a harmful physical or emotional relationship or is someone making you feel afraid or unsafe? Denies 03/22/2024 Sex and Gender Information Value Date Recorded Sex Assigned at Not on file Legal Sex Male 1:59 AM ENVIRONMENTAL FIELD PROFESSIONAL Gender Identity Not on file Sexual Orientation Not on file documented as of this encounter Plan of Treatment Not on file documented as of this encounter Procedures Procedure Name Priority Date/Time Associated Diagnosis Comments PROTIME-INR Routine 06/24/2024 documented in this encounter Results * (ABNORMAL) Protime-INR (06/24/2024) INR 2.70(A) 0.90 - 1.10 EXTERNAL LAB Blood us Historical Provider LAB BLOOD ORDERABLES Rita l Result EXTERNAL LAB documented in this encounter Visit Diagnoses Diagnosis Aortic valve replaced- Primary Heart valve replaced by other means documented in this encounter Care Teams Double Needle Operator Relationship Specialty Start Date End Date Carolyn Davis MD [address] [place] [address] PCP - General 10/31/15 Ernie Baldwin MD [id number] [place] [address] Surgeon Cardiothoracic Surgery 03/29/24 Tom De Jesus MD [address] [facility] [address] [place] [address] Consulting Physician Cardiology 03/29/24 documented as of this encounter
--- OUTSIDE RECORDS SUMMARY | 2024-07-19 21:58 | XMS_ITS | Encounter Summary ---
Author Organization [facility] Healthcare Address [address] [place] [address] Care Team Providers Care Whizzer Name Role Phone Carolyn Davis MD Primary Care Provider Ernie Baldwin MD Unavailable [phone] Tom De Jesus MD Unavailable Encounter Details Date Type Department Care Team (Late st Contact Info) Description 05/27/2024 Telephone [facility] Medical Group Cardiology [address] [place] [address] Tom De Jesus MD [address] [address] Social History Tobacco Use Types Packs/Day Years [...] week 03/24/2024 How often do you attend [facility] or baptism services? Never 03/24/2024 Do you belong to any clubs o r organizations such as scientologist groups, unions, fraternal or athletic groups, or [...] any time in the past 12 m [facility], were you homeless or living in a fdc (including now)? No 03/24/2024 Personal Safety Answer Date Recorded Have you ever been in or are you currently in a harmful physical or emotional relationship or is someone making you feel afraid or unsafe? 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 * Telephone Encounter - Tresa Elmore - 05/27/2024 10:12 AM CDT Katherine CROWE RN called to report pts INR result today is 2.9 Contact: documented in this encounter Plan of Treatment Not on file documented as of this encounter Visit Diagnoses Not on filedocumented in this encounter Care Teams Whizzer Relationship Specialty Start Date End Date Carolyn Davis MD [address] [place] [address] PCP - General 10/31/15 Ernie Baldwin MD [id number] [place] [address] Surgeon Cardiothoracic Surgery 03/29/24 Tom De Jesus MD [address] [facility] [address] [place] [address] Consulting Physician Cardiology 03/29/24 documented as of this encounter
--- OUTSIDE RECORDS SUMMARY | 2024-07-19 21:58 | XMS_ITS | Encounter Summary ---
Author Organization [facility] Healthcare Address [address] [place] [address] Care Team Providers Care Seismic Computer Name Role Phone Carolyn Davis MD Primary Care Provider Ernie Baldwin MD Unavailable [phone] Tom De Jesus MD Unavailable Encounter Details Date Type Department Care Team (Latest Contact Info) Description 05/27/2024 Anticoagulation Visit [facility] Medical Group Cardiology [address] [place] [address] Angela Vines, RN Aortic valve replaced (Primary Dx) Social [...] often do you attend chur ch or episcopalian services? Never 03/24/2024 Do you belong to any clubs o r organizations such as yazidism groups, unions, fraternal or athletic groups, or [...] any time in the past 12 m [facility], were you homeless or living in a long-term (including now)? No 03/24/2024 Personal Safety Answer Date Recorded Have you ever been in or are you currently in a harmful physical or emotional relationship or is someone making you feel afraid or unsafe? 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 Gender Identity Not on file Sexual Orientation Not on file documented as of this encounter Plan of Treatment Not on file documented as of this encounter Procedures Procedure Name Priority Date/Time Associated Diagnosis Comments PROTIME-INR Routine 05/27/2024 documented in this encounter Results * (ABNORMAL) Protime-INR (05/27/2024) INR 2.90(A) 0.90 - 1.10 EXTERNAL LAB Blood us Historical Provider LAB BLOOD ORDERABLES Rita l Result EXTERNAL LAB documented in this encounter Visit Diagnoses Diagnosis Aortic valve replaced- Primary Heart valve replaced by other means documented in this encounter Care Teams Seismic Computer Relationship Specialty Start Date End Date Carolyn Davis MD [address] [place] [address] PCP - General 10/31/15 Ernie Baldwin MD [id number] [place] [address] Surgeon Cardiothoracic Surgery 03/29/24 Tmo De Jesus MD [address] [facility] [address] [place] [address] Consulting Physician Cardiology 03/29/24 documented as of this encounter
--- OUTSIDE RECORDS SUMMARY | 2024-07-19 21:58 | XMS_ITS | Encounter Summary ---
Author Organization [facility] Address [address] [facility] [address] [place] [address] Phone Care Team Providers Care Cut Off Worker Name Role Phone Carolyn Davis MD Primary Care Provider Ernie Baldwin MD Unavailable [phone] Tom De Jesus MD Unavailable Reason for Visit * Reason Onset Date Comments INR Management 04/25/2024 Encounter Details Date Type Department Care Team (Late st Contact Info) Description 04/25/2024 Documentation [facility] Surgery [address] [facility] [address] [place] [address] Re Hicks NP [address] [facility] [id number] [place] [address] INR Management Social History Tobacco Use Types Packs/Day Years [...] often do you attend chur ch or methodist services? Never 03/24/2024 Do you belong to any clubs o r organizations such as gnosticism groups, unions, fraternal or athletic groups, or [...] any time in the past 12 m [facility], were you homeless or living in a halfway (including now)? No 03/24/2024 Personal Safety Answer Date Recorded Have you ever been in or are you currently in a harmful physical or emotional relationship or is someone making you feel afraid or unsafe? 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 All of our notes are in epic with past trends. Re Hicks NP documented in this encounter Plan of Treatment Not on file documented as of this encounter Visit Diagnoses Not on filedocumented in this encounter Care Teams Cut Off Worker Relationship Specialty Start Date End Date Carolyn Davis MD [address] [place] [address] PCP - General 10/31/15 Ernie Baldwin MD [id number] [place] [address] Surgeon Cardiothoracic Surgery 03/29/24 Tom De Jesus MD [address] [facility] [address] [place] [address] Consulting Physician Cardiology 03/29/24 documented as of this encounter
--- OUTSIDE RECORDS SUMMARY | 2024-07-19 21:58 | XMS_ITS | Encounter Summary ---
Author Organization [facility] Healthcare Address [address] [place] [address] Care Team Providers Care Clothes Drier Repairer Name Role Phone Carolyn Davis MD Primary Care Provider Ernie Baldwin MD Unavailable Tom De Jesus MD Unavailable Encounter Details Date Type Department Care Team (Latest Contact Info) Description 05/13/2024 Anticoagulation Visit [facility] Medical Group Cardiology [address] [place] [address] Lu Rhoades, RN Aortic valve [...] How often do you attend chur or anabaptist services? Never 03/24/2024 Do you belong to any clubs o r organizations such as anabaptism groups, unions, fraternal or athletic groups, or [...] any time in the past 12 m [facility], were you homeless or living in a retirement (including now)? No 03/24/2024 Personal Safety Answer Date Recorded Have you ever been in or are you currently in a harmful physical or emotional relationship or is someone making you feel afraid or unsafe? 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 Gender Identity Not on file Sexual Orientation Not on file documented as of this encounter Plan of Treatment Not on file documented as of this encounter Procedures Procedure Name Priority Date/Time Associated Diagnosis Comments PROTIME-INR Routine 05/13/2024 documented in this encounter Results * (ABNORMAL) Protime-INR (05/13/2024) INR 2.40(A) 0.90 - 1.10 EXTERNAL LAB Blood us Historical Provider LAB BLOOD ORDERABLES Rita l Result EXTERNAL LAB documented in this encounter Visit Diagnoses Diagnosis Aortic valve replaced- Primary Heart valve replaced by other means documented in this encounter Care Teams Clothes Drier Repairer Relationship Specialty Start Date End Date Carolyn Davis MD [address] [place] [address] PCP - General 10/31/15 Ernie Baldwin MD [id number] [place] [address] Surgeon Cardiothoracic Surgery 03/29/24 Tom De Jesus MD [address] [facility] [address] [place] [address] Consulting Physician Cardiology 03/29/24 documented as of this encounter
--- OUTSIDE RECORDS SUMMARY | 2024-07-19 21:58 | XMS_ITS | Encounter Summary ---
Author Organization [facility] Address [address] [place] [address] Phone Care Team Providers Care Firmware Developer Name Role Phone Carolyn Davis MD Primary Care Provider Ernie Baldwin MD Unavailable Tom De Jesus MD Unavailable Encounter Details Date Type Department Care Team (Late st Contact Info) Description 04/12/2024 Documentation [facility] Surgery [address] [facility] [address] [place] [address] Eve Cota, HUY [address] [facility] [address] [facility] [address] [place] [address] Social History Tobacco Use Types Packs/Day Years [...] often do you attend chur ch or synagogue services? Never 03/24/2024 Do you belong to any clubs o r organizations such as oriental orthodox groups, unions, fraternal or athletic groups, or [...] were you homeless or living in a residential (including now)? No 03/24/2024 Personal Safety Answer Date Recorded Have you ever been in or are you currently in a harmful physical or emotional relationship or is someone making you feel afraid or unsafe? 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 Orders given to stop Lovenox injections. Continue 7.5mg daily for now as patient was subtherapeutic on 7.5 alt with 5mg prior; will recheck on Sunday 04/15. Eve Cota LANGUAGE ASST documented in this encounter Plan of Treatment Not on file documented as of this encounter Visit Diagnoses Not on filedocumented in this encounter Care Teams Firmware Developer Relationship Specialty Start Date End Date Carolyn Davis MD [address] [facility] [address] [place] [address] PCP - General 10/31/15 Ernie Baldwin MD [id number] [place] [address] Surgeon Cardiothoracic Surgery 03/29/24 Tom De Jesus MD [address] [facility] [address] [place] [address] Consulting Physician Cardiology 03/29/24 documented as of this encounter
--- OUTSIDE RECORDS SUMMARY | 2024-07-19 21:58 | XMS_ITS | Encounter Summary ---
Author Organization [facility] Healthcare Address [address] [place] [address] Care Team Providers Care Software Engineer Intern Name Role Phone Carolyn Davis MD Primary Care Provider Ernie Baldwin MD Unavailable [phone] Tom Bal MD Unavailable Reason for Referral * Cardiology (Routine) - Closed Specialty Diagnoses / Procedures Referred By Kary t Referred To Contact Diagnoses History of mechanical aortic valve replacement Procedures Transthoracic Echo (TTE) Complete W Doppler/CF Tom Bal MD [address] [address] Phone: tel: fax: [facility] Medical Group Cardiology [address] [facility] [address] [place] [id number] Phone: tel: fax: Referral ID Status Reason Start Date Expiration Date Visits Re quested Visits Authorized [id number] Closed 06/15/2024 07/15/2025 1 1 S SECRETARY * Consultation (Routine) - Closed Specialty Diagnoses / Procedures Referred By Contkemal t Referred To Contact Diagnoses History of mechanical aortic valve replacement Tom Bal MD [address] [address] Phone: tel: fax: External Order Referral ID Status Reason Start Date Expiration Date V isits Requested Visits Authorized [id number] Closed Specialty Services Required 06/15/2024 07/15/2025 1 1 Question Answer Please select the performing region: External Order [171] Select a phase: Phase 2 # of visits: 1 S SECRETARY Reason for Visit * Reason Comments Follow-up Post op f/u Encounter Details Date Type Department Care Team (Late st Contact Info) Description 06/15/2024 11:30 AM PRESS SECRETARY Office Visit [facility] Medical [facility] Cardiology [address] [place] [address] Tom Bal MD [address] [address] History of mechanical aortic valve replacement (Primary Dx); Nonrheumatic aortic valve stenosis; Essential hypertension; History of tobacco abuse Social History Tobacco Use Types Packs/Day Years [...] often do you attend chur ch or orthodoxy services? Never 03/24/2024 Do you belong to any clubs o r organizations such as jainism groups, unions, fraternal or athletic groups, or [...] any time in the past 12 [facility], were you homeless or living in a skilled nursing (including now)? No 03/24/2024 Personal Safety Answer Date Recorded Have you ever been in or are you currently in a harmful physical or emotional relationship or is someone making you feel afraid or unsafe? Denies 03/22/2024 Sex and Gender Information Value Date Recorded Sex Assigned at Not on file Legal Sex Male 1:59 AM PRESS SECRETARY Gender Identity Not on file Sexual Orientation Not on file documented as of this encounter Last Filed Vital Signs Vital Sign Reading Time Taken Comments Blood Pressure 122/60 06/15/2024 11:37 AM PRESS SECRETARY Pulse 72 06/15/2024 11:37 AM PRESS SECRETARY Temperature - - Respiratory Rate - - Oxygen Saturation 99% 06/15/2024 11:37 AM PRESS SECRETARY Inhaled Oxygen Concentration - - Weight 88.5 kg (195 lb) 06/15/2024 11:37 AM PRESS SECRETARY Height 182.9 cm (6') 06/15/2024 11:37 AM PRESS SECRETARY Body Mass Index 26.45 06/15/2024 11:37 AM PRESS SECRETARY documented in this encounter Progress Notes * Tom Bal MD - 06/15/2024 11:30 AM CST [facility] FOLLOW UP 06/15/2024 Chief Complaint Patient presents with Follow-up Post op f/u 58 y.o. male with s/p mechanical AVR, PSVT, anxiety/panic attacks. Patient was seen in [facility] on 06/22/15 when he presented with complaints of palpitationsthat started about one week prior to admission. He denied any chest pain, dizziness or loss of consciousness. In the ER, his EKG showed supraventricular tachycardia with a heart rate of 155 bpm. Patient apparently received beta tabitha and later diltiazem with improvement in his heart rate. Subsequent EKG showed sinus rhythm with frequent PACs. On telemetry, patient had one episode of SVT, predominantly remained in sinus rhythm with frequent PACs in the bigeminy pattern. His symptoms improved. Echocardiogram showed EF 55-60%. He was discharged home on diltiazem. Patient is here for the follow-up visit. Patient states that his father recently, and he is currently undergoing emotional stress. From cardiac standpoint, he is doing relatively well. Hehas not had any sustained palpitations since last office visit. His main complaint has been anxietyrelated to situations like heights and being alone in elevators. Denies chest pain, dyspnea on exertion. No dizziness or loss of consciousness. Patient smokes one third to one half pack per day. 12/14/2019- on the follow-up visit today, patient states that he has occasional episodes of dizziness without syncope. He denies angina, shortness of breath for his level of activity. No palpitations, syncope. No PND, orthopnea or lower extremity swelling. He reports compliance with current medicalregimen. Patient smokes about 4 cigarettes per day. 08/29/2020- patient is here for the follow-up visit after recent echocardiogram which showed moderate aortic stenosis. He does not have any significant cardiovascular symptoms at present. He denies significant shortness of breath for his level of activity. No angina, palpitation, or syncope. He reports that his mood is okay at the moment. Patient smokes about 1/3 of pack per day, he is also exposed to secondhand smoke from his . He wants to quit on his own. 08/28/2021-routine follow-up visit. He reports dyspnea on exertion but is unable to quantify the distance. He states that he gets short of breath when he walks fast and climbs stairs. He denies any chest pain, palpitation, dizziness or syncope. No PND, orthopnea lower extremity swelling. Patient continues to smoke, about half pack per day. He is willing to try pharmacotherapy assisted smoking cessation. 08/20/2022-since last office visit, patient was admitted to [facility] on 02/16/2022 after he apparently had a seizure after alcohol abuse. He states that he had a fall at that time. His CT scan of the head was unremarkable, however, MRI reportedly showed thin subdural hematoma in the left parieto- occipital area. Patient states that he has quit drinking alcohol. Yesterday, patient had an episode of palpitations and went to the emergency room. He states that he was discharged home from the ER to have outpatient follow-up. Actual telemetry findings unavailable. Patient does have history of SVT. He reports palpitations once or twice a week, transient in nature. Denies chest pain. He gets short of breath with moderate exertion. He continues to smoke about 4 cigarettes per day. He has been on bupropion to facilitate smoking cessation. 11/26/2022--patient is here for the follow-up visit. He denies any major cardiovascular symptoms atpresent including chest pain, shortness of breath, dizziness or syncope. He has occasional palpitations. He states that he is able to walk about a mi without any significant limitations. No PND, orthopnea lower extremity swelling. Patient states that he is quit alcohol. 06/15/2024-patient is here for the follow-up visit after recent mechanical AVR using 23 mm vannesa mechanical AV on 03/22/2024. He is sedentary lifestyle at present but denies any significant shortness of breath for his level activity. He reports compliance with warfarin, no overt bleeding REVIEW OF SYSTEMS General ROS: negative for - Fever, chills, fatigue Psychological ROS: Situational anxiety Ophthalmic ROS: negative for - loss of vision ENT ROS: negative for - epistaxis, headaches Respiratory ROS: negative for - cough Cardiovascular ROS: negative for - chest pain Gastrointestinal ROS: negative for - abdominal pain Hematological and Lymphatic ROS: negative for - bleeding problems Endocrine ROS: negative for - hot flashes, polydipsia/polyuria Allergy and Immunology ROS: negative for - hives, postnasal drip Musculoskeletal ROS: negative for - joint pain, muscle pain Neurological ROS: negative for - gait disturbance, weakness, syncope Dermatological ROS: negative for pruritus, rash HOME MEDICATIONS No Known Allergies Current Outpatient Medications Medication Sig Dispense Refill acetaminophen 500 mg capsule Take 2 capsules (1,000 mg total) by mouth every 6 (six) hours (Patienttaking differently: Take 2 capsules (1,000 mg total) by mouth as needed) buPROPion SR (ZYBAN) 150 mg 12 hr tablet Take 1 tablet (150 mg total) by mouth 2 (two) times a day dilTIAZem CD 240 mg 24 hr capsule Take 1 capsule (240 mg total) by mouth every evening polyethylene glycol (MIRALAX) 17 gram/dose bulk powder Take 17 g by mouth daily as needed (constipation) QUEtiapine XR (SEROquel XR) 50 mg tablet extended release 24 hr Take 1 tablet (50 mg total) by mouth 2 (two) times a day rOPINIRole (REQUIP) 4 mg tablet Take 1 tablet (4 mg total) by mouth 2 (two) times a day as needed rosuvastatin (CRESTOR) 40 mg tablet Take 1 tablet (40 mg total) by mouth nightly warfarin (COUMADIN) 5 mg tablet TAKE 1 AND 1/2 TABLETS(7.5 MG) BY MOUTH DAILY 45 tablet 1 zolpidem CR (AMBIEN CR) 6.25 mg CR tablet Take 1 tablet (6.25 mg total) by mouth nightly at bedtime metoprolol tartrate (LOPRESSOR) 25 mg immediate release tablet Take 1 tablet (25 mg total) by mouth2 (two) times a day 60 tablet 1 No current facility-administered medications for this visit. LABS AND OTHER DIAGNOSTIC TESTS Lab Results Component Value Date WBC 11.8 (H) 03/29/2024 HGB 8.6 (L) 03/29/2024 HCT 26.1 (L) 03/29/2024 MCV 91.9 03/29/2024 No lab exists for component: LABALBU Lab Results Component Value Date WBC 11.8 (H) 03/29/2024 HGB 8.6 (L) 03/29/2024 HCT 26.1 (L) 03/29/2024 MCV 91.9 03/29/2024 No results found for: CHOL No results found for: HDL No results found for: LDL ] No results found for: TRIG ECHO/MUGA: Echo (Borderline LVE, mild LVH, EF 55-60%.) - 06/22/2015 MPI- Myocardial perfusion imaging is normal. Normal sinus rhythm, normal ECG. No diagnostic ST changes. Global left ventricular function is normal. Left Ventricular Ejection Fraction is 68 %. 01/29/2017 Dr. Simmons Echo- Normal left ventricular systolic function. No focal wall motion abnormalities. Normal left ventricular size. Definity contrast agent used to visually enhance endocardial wall motion and contractility. Lot Number: [id number]. Mild concentric left ventricular hypertrophy. Impaireddiastolic relaxation Grade I. Ejection fraction is visually estimated at 60-65 %. Ejection fractionis measured at 65 %. The left atrium is normal in size. There is mild enlargement of left atrium. Mild aortic stenosis. Peak gradient of 23.0 mmHg. Mean gradient of 11.0 mmHg. Valve area of 1.63 cm2. Aortic cusps appear mildly calcified. Trileaflet aortic valve. Trace aortic valve regurgitation. Normal sinus rhythm. 07/29/2018-Dr. Simmons Lipid panel-total cholesterol 224, HDL 25, triglycerides 325, LDL 134. 12/14/2019 Echo- Normal left ventricular systolic function. No focal wall motion abnormalities. Normal left ventricular size. Definity contrast agent used to visually enhance endocardial wall motion and contractility. Mild concentric left ventricular hypertrophy. Impaired diastolic relaxation Grade I. Ejection fraction is visually estimated at 65-70 %. Mild enlargement of left atrium. Mild mitral valve regurgitation. Moderate aortic stenosis. Peak Velocity of 2.70 m/s. Peak gradientof 29.0 mmHg. Mean gradient of 16.0 mmHg. Valve area of 1.22 cm2. Aortic cusps appear moderately calcified. Normal sinus rhythm. 08/17/2020- Dr. Simmons Echo-Normal left ventricular systolic function. No focal wall motion abnormalities. Normal left ventricular size. Definity contrast agent used to visually enhance endocardial wall motion and contractility. Mild concentric left ventricular hypertrophy. Impaired diastolic relaxation Grade I. Ejection fraction is visually estimated at 70-75 %. Ejection fraction is measured at 74 %. Mild enlargement of left atrium. Moderate aortic stenosis. Peak gradient of 61.0 mmHg. Mean gradient of 35.0 mmHg. Valve area of 1.28 cm2. Aortic cusps appear moderately calcified. Trace aortic valve regurgitation. Mild tricuspid regurgitation. Compared with prior echo, the AV gradients have increased. Normal sinus rhythm. 08/16/2021-Dr. Simmons Lipids-total cholesterol 297, HDL?, triglycerides? 650. 08/28/2021 JAVIER- Normal LV size, mild LVH, normal LV systolic function, ejection fraction about 70%. Mild left atrial enlargement. No evidence of left atrial emergent thrombus. No interatrial shunt on color Doppler and on injection of agitated normal saline. Normal mitral valve structure, mild MR. Trileaflet, sclerotic, thickened aortic valve with restricted leaflet mobility, moderate aortic stenosis (approaching severe) with BEVERLY 1 to 1.1 cm2 by planimetry. 09/13/2021 Carotid duplex-less than 50% stenosis bilateral ICA. 02/17/2022, [facility] Echo-normal LV size, EF 60-65%, grade 1 diastolic dysfunction, aortic stenosis, valve area 1.4 cm2,V max 2.62 m/sec, mean gradient 17 mmHg. 02/17/2022; Dr. Cage-[facility] Lipids-total cholesterol 227, HDL 34, triglycerides 258, LDL 142, glucose 155. 08/20/2022 30 day event monitor- Sinus rhythm with an average heart rate of 68 beats per minute. The minimum heart rate was 50 beats per minute and the maximum heart rate was 127 beats per minute. No significant arrhythmias. Patient reported symptoms correlated to sinus rhythm with a heart rate range of 54 BPM to 127 BPM without any arrhythmias. Dr Wooten, 08/20/2022-09/18/2022 Echo-Normal left ventricular size. Mild concentric left ventricular hypertrophy. Normal global leftventricular systolic function. Impaired diastolic relaxation Grade I. Ejection fraction is visuallyestimated at 60 %. Ejection fraction is measured at 63 %. Global Longitudinal Strain is -19 %. There is mild enlargement of left atrium. Critical aortic stenosis. Mean gradient of 47.0 mmHg. Valve area of 0.8 cm2. Aortic cusps appear severely sclerotic. No aortic regurgitation. 01/21/2024; Dr. Cage Cardiac catheterization-Minor plaque mid RCA; otherwise no significant obstructive CAD. Severe (0.8 cm2, mean gradient 47 mmHg) on TTE from 01/21/2024. 02/23/2024 CT surgery-Aortic valve replacement using 23-millimeter [place] mechanical aortic valve. 03/22/2024; Dr. Baldwin Echo-Normal left ventricular size. Normal left ventricular systolic function with no focal wall motion abnormalities. Mild concentric left ventricular hypertrophy. Ejection fraction is measured at 67 %. Gradients abnormal for valve type and size ( 23 mm On-X mechanical valbve) Peak velocity AOV of 3.2m/sec. Peak gradient of 41.0 mmHg. Mean gradient of 25.0 mmHg. Valve area of 2.4 cm2. Velocity probably high due to increased cardiac output. Normal right ventricular systolic pressure. Estimated peak RVSP is 35 mmHg. Mild tricuspid regurgitation. Normal pericardium with no significant pericardial effusion. 03/29/2024; Dr. Ruvalcaba PHYSICAL EXAM Vitals BP 122/60 (BP Location: Left arm, Patient Position: Sitting) Pulse 72 Ht 182.9 cm (6') Wt 88.5 kg (195 lb) SpO2 99% BMI 26.45 kg/m?? General appearance - alert, no distress, oriented to time, place, person Mental status - affect appropriate to mood Eyes - extraocular eye movements intact, no pallor Ears - external ears appear normal, hearing grossly normal Nose - normal and patent, no discharge Mouth - mucous membranes moist, tongue normal Neck - supple, no JVD Chest - clear to auscultation Heart - normal rate, regular rhythm, mechanical S2 Abdomen - soft, nontender, nondistended Neurological - alert, oriented, normal speech, no gross motor deficits Musculoskeletal - no major deformity, no amputations Extremities - no pedal edema, no clubbing or cyanosis Skin - no rashes (on the exposed areas), no cyanosis ASSESSMENT Diagnoses and all orders for this visit: History of mechanical aortic valve replacement (Primary) - Ambulatory referral to Cardiac Rehab; Future - Transthoracic Echo (TTE) Complete W Doppler/CF; Future Nonrheumatic aortic valve stenosis Essential hypertension History of tobacco abuse PLAN/RECOMMENDATIONS 58 y.o. male with aortic stenosis status post Aortic valve replacement using 23- millimeter Vannesa mechanical aortic valve on 03/22/2024; PSVT, hypertension, anxiety/panic attacks; tobacco abuse. -Patient is status post SAVR using 23-millimeter Vannesa mechanical aortic valve on 03/22/2024. Continue chronic anticoagulation with warfarin, target INR 1.5-2. Patient will be enrolled in cardiac rehab. His postprocedure echocardiogram showed relatively higher transaortic velocities. Will repeat echo with Doppler to reassess mechanical aortic valve. He willneed continued periodic surveillance with echocardiogram. Endocarditis prophylaxis for procedures that warrant antibiotic prophylaxis. -patient has history of PSVT, and occasional palpitations. No significant arrhythmias on previous 30 day event monitor. Currently on diltiazem CD and metoprolol tartrate. If patient has recurrent SVT, will refer to EP. -previous hospitalization with seizures and fall in the setting of alcohol abuse. Found to have small subdural hematoma. Patient states that he has quit alcohol. He was advised for continue abstinence from alcohol. - blood pressure is well controlled with current antihypertensives including diltiazem and metoprolol. -Patient has quit tobacco after recent surgery. Advised to continue to abstain from smoking. -Counseling was done for heart healthy diet, aerobic exercise at least 5 times a week, Medication compliance. More than 50% of the time was spent on counseling. -follow-up in 6-8 months or sooner if needed based on clinical course and echo findings. Tom Bal MD S SECRETARY documented in this encounter Plan of Treatment Scheduled Referrals Name Type Priority Associated Diagnoses Orde r Schedule Ambulatory referral to Cardiac Rehab Outpatient Referral Routine History of mechanical aortic valve replacement Expected: 06/29/2024 (Approximate), Expires: 06/15/2025 documented as of this encounter Results * TRANSTHORACIC ECHO (TTE) COMPLETE W DOPPLER/CF WO CONTRAST (07/13/2024 1:41 PM PRESS SECRETARY) Anatomical Region Laterality Modality Ultrasound 07/13/2024 1:39 PM PRESS SECRETARY Narrative 07/13/2024 3:27 PM PRESS SECRETARY [facility] Medical Group Cardiology [address], [place] [address] [address], [place] [address] P:[phone] P:[phone] Echocardiographic Report Patient Name: STEPHAN NUNEZ A : 1965 Study Date: 07/13/2024 1:39:06 PM Gender: M Tech: Location: [facility] Provider: TOM BAL Height(Cm): 183 BSA: 2.12 [...] FINDINGS: Interpretation Site: Exam was interpreted at [facility]. Left Ventricle: Normal left ventricular size. Mild [...] valve. Aortic Valve: S/P SAVR using 23-millimeter [place] mechanical aortic valve. Peak Velocity of 2.20 [...] valve. Trivial MR. S/P SAVR using 23-millimeter [place] mechanical aortic valve. Aortic valve prosthesis not well visualized. Peak Velocity of 2.20 m/s. Mean gradient of 9.0 mmHg. DVI 0.59. Gradients normal for valve type and size. Unable to assess RVSP due to inadequate TR jet. Electronically Signed By: Tom Bal MD, [facility] 07/13/2024 3:26:22 PM PRESS SECRETARY Procedure Note Tom Bal MD - 07/13/2024 [facility] Medical Group Cardiology [address] [facility] [address] [id number] [address] [facility] [address], [place] [address] P:[phone] P:[phone] Echocardiographic Report Patient Name: STEPHAN NUNEZ A : 1965 Study Date: 07/13/2024 1:39:06 PM Gender: M Tech: Location: [facility] Provider: TOM BAL Height(Cm): 183 BSA: 2.12 [...] FINDINGS: Interpretation Site: Exam was interpreted at [facility]. Left Ventricle: Normal left ventricular size. Mild [...] mitralvalve. Aortic Valve: S/P SAVR using 23-millimeter Vannesa mechanical aortic valve. Peak Velocity of 2.20 [...] valve. Trivial MR. S/P SAVR using 23-millimeter Vannesa mechanical aortic valve. Aortic valveprosthesis not well visualized. Peak Velocity of 2.20 m/s. Mean gradient of 9.0 mmHg. DVI0.59. Gradients normal for valve type and size. Unable to assess RVSP due to inadequate TR jet. Electronically Signed By: Tom Bal MD, [facility] 07/13/2024 3:26:22 PM PRESS SECRETARY us Tom Bal MD CV ECHO PROCEDURES Final Result documented in this encounter Visit Diagnoses Diagnosis History of mechanical aortic valve replacement- Primary Nonrheumatic aortic valve stenosis Essential hypertension Unspecified essential hypertension History of tobacco abuse History of mechanical aortic valve replacement documented in this encounter Discontinued Medications Medication Sig Discontinue Reason Start Date End Da te oxyCODONE (ROXICODONE) 5 mg immediate release tabletIndications:Pain Take 1 tablet (5 mg total) by mouth every 4 (four) hours as needed for pain Therapy completed 03/29/2024 06/15/2024 methocarbamoL (ROBAXIN) 500 mg tablet Take 1 tablet (500 mg total) by mouth 3 (three) times a day as needed for muscle spasms Therapy completed 03/29/2024 06/15/2024 furosemide (LASIX) 40 mg tablet Take 1 tablet (40 mg total) by mouth daily for 7 days Therapy completed 03/30/2024 06/15/2024 amiodarone (PACERONE) 200 mg tabletIndications:Preven tion of A. Fib Post Cardio-Thoracic Surgery Take 1 tablet (200 mg total) by mouth daily Therapy completed 03/29/2024 06/15/2024 aspirin (ASPIR-81) 81 mg tablet take 1 tablet by oral route every day Therapy completed 08/08/2015 06/15/2024 documented as of this encounter Historical Medications * This list may reflect changes made after this encounter. zolpidem CR (AMBIEN CR) 6.25 mg CR tablet Take 1 tablet (6.25 mg total) by mouth nightly at bedtime 05/06/2024 added in this encounter Care Teams Software Engineer Intern Relationship Specialty Start Date End Date Carolyn Davis MD [address] [place] [address] PCP - General 10/31/15 Ernie Baldwin MD [address] [facility] [id number] [place] [address] Surgeon Cardiothoracic Surgery 03/29/24 Tmo Bal MD [address] [facility] [address] [place] [address] Consulting Physician Cardiology 03/29/24 documented as of this encounter
--- OUTSIDE RECORDS SUMMARY | 2024-07-19 21:58 | XMS_ITS | Encounter Summary ---
Author Organization [facility] Healthcare Address [address] [place] [address] Care Team Providers Care Technology Assistant Name Role Phone Carolyn Davis MD Primary Care Provider Ernie Baldwin MD Unavailable [phone] Magdi Bal MD Unavailable Reason for Visit * Cardiology (Routine) - Closed Specialty Diagnoses / Procedures Referred By Contac t Referred To Contact Diagnoses History of mechanical aortic valve replacement Procedures Transthoracic Echo (TTE) Complete W Doppler/CF Magdi Bal MD [address] [address] Phone: tel: fax: [facility] Cardiology [address] [facility] [address] [place] [address] Phone: tel: fax: Referral ID Status Reason Start Date Expiration Date Visits Re quested Visits Authorized [id number] Closed 06/15/2024 07/15/2025 1 1 Encounter Details Date Type Department Care Team (Latest Contact Info) Description 07/13/2024 1:00 PM YARD MANAGER Ancillary Procedure [facility] Cardiology [address] [facility] [address] [place] [phone] History of mechanical aortic valve replacement Social History Tobacco Use Types Packs/Day Years [...] often do you attend chur ch or christianity services? Never 03/24/2024 Do you belong to any clubs o r organizations such as sikhism groups, unions, fraternal or athletic groups, or [...] any time in the past 12 m onths, were you homeless or living in a half-way (including now)? No 03/24/2024 Personal Safety Answer Date Recorded Have you ever been in or are you currently in a harmful physical or emotional relationship or is someone making you feel afraid or unsafe? Denies 03/22/2024 Sex and Gender Information Value Date Recorded Sex Assigned at Not on file Legal Sex Male 1:59 AM YARD MANAGER Gender Identity Not on file Sexual Orientation Not on file documented as of this encounter Last Filed Vital Signs Vital Sign Reading Time Taken Comments Blood Pressure 114/48 07/13/2024 1:35 PM YARD MANAGER Pulse - - Temperature - - Respiratory Rate - - Oxygen Saturation - - Inhaled Oxygen Concentration - - Weight - - Height - - Body Mass Index - - documented in this encounter Plan of Treatment Not on file documented as of this encounter Procedures Procedure Name Priority Date/Time Associated Diagnosis Comments TRANSTHORACIC ECHO (TTE) COMPLETE W DOPPLER/CF WO CONTRAST Routine 07/13/2024 1:41 PM YARD MANAGER History of mechanical aortic valve replacement documented in this encounter Results * TRANSTHORACIC ECHO (TTE) COMPLETE W DOPPLER/CF WO CONTRAST (07/13/2024 1:41 PM YARD MANAGER) Anatomical Region Laterality Modality Ultrasound 07/13/2024 1:39 PM YARD MANAGER Narrative 07/13/2024 3:[address] [facility] Cardiology [address] [facility] [address], [place] [address] [address] [facility] [address], [place] [address] P:[phone] P:[phone] Echocardiographic Report Patient Name: STEPHAN NUNEZ A : 1965 Study Date: 07/13/2024 1:39:06 PM Gender: M Tech: CONCETTA Location: [facility] Provider: MAGDI BAL Height(Cm): 183 BSA: 2.12 Weight(Kg): 88.5 Heart Rate: 64 BP: 114 / 48 Quality: Good Order Provider: MAGDI BAL ?? PROCEDURES: Echocardiographic Report: Transthoracic echocardiogram [...] FINDINGS: Interpretation Site: Exam was interpreted at [facility]. Left Ventricle: Normal left ventricular size. Mild [...] valve. Aortic Valve: S/P SAVR using 23-millimeter Ponce mechanical aortic valve. Peak Velocity of 2.20 [...] valve. Trivial MR. S/P SAVR using 23-millimeter Ponce mechanical aortic valve. Aortic valve prosthesis not well visualized. Peak Velocity of 2.20 m/s. Mean gradient of 9.0 mmHg. DVI 0.59. Gradients normal for valve type and size. Unable to assess RVSP due to inadequate TR jet. Electronically Signed By: Magdi Bal MD, [facility] 07/13/2024 3:26:22 PM YARD MANAGER Procedure Note Magdi Bal MD - 07/13/2024 [facility] Cardiology [address] [facility] [address] [address] [address] [facility] [address], [address], [place] [address] P:[phone] P:[phone] Echocardiographic Report Patient Name: STEPHAN NUNEZ A : 1965 Study Date: 07/13/2024 1:39:06 PM Gender: M Tech: Location: [facility] Provider: MAGDI BAL Height(Cm): 183 BSA: 2.12 Weight(Kg): 88.5 Heart Rate: 64 BP: 114 / 48 Quality: Good Order Provider: MAGDI BAL PROCEDURES: Echocardiographic Report: Transthoracic echocardiogram with [...] FINDINGS: Interpretation Site: Exam was interpreted at [facility]. Left Ventricle: Normal left ventricular size. Mild [...] to inadequate TR jet. Electronically Signed By: Magdi Bal MD, [facility] 07/13/2024 3:26:22 PM YARD MANAGER Magdi Bal MD CV ECHO PROCEDURES Final Result documented in this encounter Visit Diagnoses Diagnosis History of mechanical aortic valve replacement documented in this encounter Care Teams Technology Assistant Relationship Specialty Start Date End Date Carolyn Davis MD [address] [place] [address] PCP - General 10/31/15 Ernie Baldwin MD [address] [place] [address] Surgeon Cardiothoracic Surgery 03/29/24 Magdi Bal MD 1225 [facility] [address] [place] [address] Consulting Physician Cardiology 03/29/24 documented as of this encounter
--- OUTSIDE RECORDS SUMMARY | 2024-07-19 21:58 | XMS_ITS | Encounter Summary ---
Author Organization [facility] Address [address] [place] [address] Phone Care Team Providers Care Field Sales Executive Name Role Phone Carolyn Davis MD Primary Care Provider Ernie Baldwin MD Unavailable [phone] Tom De Jesus MD Unavailable Reason for Visit * Reason Onset Date Comments Anticoagulation 04/15/2024 Encounter Details Date Type Department Care Team (Late st Contact Info) Description 04/15/2024 Documentation [facility] Surgery [address] [facility] [place] [address] [place] [address] [place] [address] [facility] 1 [facility] [address] [place] [address] Anticoagulation Social History Tobacco Use Types Packs/Day Years [...] often do you attend chur ch or oriental orthodox services? Never 03/24/2024 Do you belong to [...] time in the past 12 m [facility], were you homeless or living in a fdc (including now)? No 03/24/2024 Personal Safety Answer Date Recorded Have you ever been in or are you currently in a harmful physical or emotional relationship or is someone making you feel afraid or unsafe? Denies 03/22/2024 Sex and Gender Information Value Date Recorded Sex Assigned at Not on file Legal Sex Male 1:59 AM TELEPHONE ORDER SUPERVISOR Gender Identity Not on file Sexual Orientation Not on file documented as of this encounter Progress Notes * Eve Cota NP - 04/15/2024 12:18 PM CDT INR 3.7 during HH visit. Instructed to keep taking 7.5mg daily, will recheck on Thursday 04/19 at next HH visit. Eve Cota documented in this encounter Plan of Treatment Not on file documented as of this encounter Visit Diagnoses Not on filedocumented in this encounter Care Teams Field Sales Executive Relationship Specialty Start Date End Date Carolyn Davis MD [address] [place] [address] PCP - General 10/31/15 Ernie Baldwin MD [address] [place] [address] Surgeon Cardiothoracic Surgery 03/29/24 Tom De Jesus MD 1225 [facility] [address] [place] [address] Consulting Physician Cardiology 03/29/24 documented as of this encounter
--- OUTSIDE RECORDS SUMMARY | 2024-07-19 21:58 | XMS_ITS | Encounter Summary ---
Author Organization [facility] Address [address] [facility] [address] [place] [address] Phone Care Team Providers Care Math Teacher Name Role Phone Carolyn Davis MD Primary Care Provider Ernie Baldwin MD Unavailable [phone] Tom De Jesus MD Unavailable Encounter Details Date Type Department Care Team (Late st Contact Info) Description 04/22/2024 Orders Only [facility] Surgery [address] [facility] [address] [place] [address] Re Hicks NP [address] [facility] [address] [place] [address] Social History Tobacco Use Types Packs/Day Years [...] week 03/24/2024 How often do you attend [facility] or restorationist services? Never 03/24/2024 Do you belong to any clubs o r organizations such as anabaptist groups, unions, fraternal or athletic groups, or [...] were you homeless or living in a snf (including now)? No 03/24/2024 Personal Safety Answer Date Recorded Have you ever been in or are you currently in a harmful physical or emotional relationship or is someone making you feel afraid or unsafe? Denies 03/22/2024 Sex and Gender Information Value Date Recorded Sex Assigned at Not on file Legal Sex Male 1:59 AM SEWAGE RETICULATION DRAFTING OFFICER Gender Identity Not on file Sexual Orientation Not on file documented as of this encounter Progress Notes * Re Hicks NP - 04/22/2024 10:23 AM CDT INR today 3.1 on alternating. Will continue current dose and recheck in 1 week. Re Hicks NP documented in this encounter Plan of Treatment Not on file documented as of this encounter Visit Diagnoses Not on filedocumented in this encounter Care Teams Math Teacher Relationship Specialty Start Date End Date Carolyn Davis MD [address] [place] [address] PCP - General 10/31/15 Ernie Baldwin MD [address] [place] [address] Surgeon Cardiothoracic Surgery 03/29/24 Tom De Jesus MD 1225 [facility] [address] [place] [address] Consulting Physician Cardiology 03/29/24 documented as of this encounter
--- OUTSIDE RECORDS SUMMARY | 2024-07-19 21:58 | XMS_ITS | Encounter Summary ---
Author Organization [facility] Healthcare Address [address] [place] [address] Care Team Providers Care Electrical Accessories Assembler Name Role Phone Carolyn Davis MD Primary Care Provider Ernie Baldwin MD Unavailable [phone] Tom De Jesus MD Unavailable Encounter Details Date Type Department Care Team (Late st Contact Info) Description 05/13/2024 Telephone [facility] Cardiology [address] [place] [address] Tom De Jesus MD [address] [address] Social History Tobacco Use Types [...] week 03/24/2024 How often do you attend [facility] or yarsanism services? Never 03/24/2024 Do you belong to any clubs o r organizations such as shinto groups, unions, fraternal or athletic groups, or [...] any time in the past 12 m [facility], were you homeless or living in a halfway (including now)? No 03/24/2024 Personal Safety Answer Date Recorded Have you ever been in or are you currently in a harmful physical or emotional relationship or is someone making you feel afraid or unsafe? Denies 03/22/2024 Sex and Gender Information Value Date Recorded Sex Assigned at Not on file Legal Sex Male 1:59 AM RUNNER MAN Gender Identity Not on file Sexual Orientation Not on file documented as of this encounter Miscellaneous Notes * Telephone Encounter - Lu Rhoades RN - 05/13/2024 10:03 AM CDT See ac note. [facility] RN will recheck INR in 2 weeks. * Telephone Encounter - Tresa Elmore - 05/13/2024 9:56 AM CDT Katherine RN called to report pts INR result today is 2.4 Contact: documented in this encounter Plan of Treatment Not on file documented as of this encounter Visit Diagnoses Not on filedocumented in this encounter Care Teams Electrical Accessories Assembler Relationship Specialty Start Date End Date Carolyn Davis MD [address] [place] [address] PCP - General 10/31/15 Ernie Baldwin MD [address] [place] [address] Surgeon Cardiothoracic Surgery 03/29/24 Tom De Jesus MD 1225 [facility] [address] [place] [address] Consulting Physician Cardiology 03/29/24 documented as of this encounter
--- OUTSIDE RECORDS SUMMARY | 2024-07-19 21:58 | XMS_ITS | Encounter Summary ---
Author Organization [facility] Healthcare Address [address] [place] [address] Care Team Providers Care Manager Content Name Role Phone Carolyn Davis MD Primary Care Provider Ernie Baldwin MD Unavailable [phone] Tom De Jesus MD Unavailable Reason for Visit * Reason Onset Date Comments INR results 06/24/2024 Encounter Details Date Type Department Care Team (Late st Contact Info) Description 06/24/2024 Telephone [facility] Medical Group Cardiology [address] [place] [address] Tom De Jesus MD [address] [address] INR results Social History Tobacco Use Types Packs/Day Years [...] week 03/24/2024 How often do you attend [facility] or christianity services? Never 03/24/2024 Do you belong to any clubs o r organizations such as zoroastrianism groups, unions, fraternal or athletic groups, or [...] time in the past 12 m [facility], were you homeless or living in a long-term (including now)? No 03/24/2024 Personal Safety Answer Date Recorded Have you ever been in or are you currently in a harmful physical or emotional relationship or is someone making you feel afraid or unsafe? Denies 03/22/2024 Sex and Gender Information Value Date Recorded Sex Assigned at Not on file Legal Sex Male 1:59 AM MANAGEMENT COORDINATOR Gender Identity Not on file Sexual Orientation Not on file documented as of this encounter Miscellaneous Notes * Telephone Encounter - Lu Rhoades RN - 06/24/2024 11:05 AM MANAGEMENT COORDINATOR See ac notes. Sent standing order to . Pt is also checking into a home machine-he will let us know what his insurance company says. GEMENT COORDINATOR * Telephone Encounter - Kerrie Menendez - 06/24/2024 10:50 AM CST Katherine Home Health Nurse calling in to report patients INR. INR results 2.7 06/24. GEMENT COORDINATOR documented in this encounter Plan of Treatment Scheduled Orders Name Type Priority Associated Diagnoses Orde r Schedule Protime-INR Lab Routine Aortic valve replaced Chronic anticoagulation weekly for 52 Occurrences starting 06/24/2024 until 06/24/2025 documented as of this encounter Visit Diagnoses Diagnosis Aortic valve replaced- Primary Heart valve replaced by other means Chronic anticoagulation Encounter for long-term (current) use of anticoagulants documented in this encounter Care Teams Manager Content Relationship Specialty Start Date End Date Carolyn Davis MD 68[address] [facility] [address] [place] [address] PCP - General 10/31/15 Ernie Baldwin MD [address] [facility] [address]-02 [place] [address] Surgeon Cardiothoracic Surgery 03/29/24 Tom De Jesus MD 1225 [facility] [address] [place] [address] Consulting Physician Cardiology 03/29/24 documented as of this encounter
--- OUTSIDE RECORDS SUMMARY | 2024-07-19 21:58 | XMS_ITS | Encounter Summary ---
Author Organization [facility] Healthcare Address [address] [place] [address] Care Team Providers Care National Guard Member Name Role Phone Carolyn Davis MD Primary Care Provider Ernie Baldwin MD Unavailable [phone] Tom De Jesus MD Unavailable Encounter Details Date Type Department Care Team (Late st Contact Info) Description 07/05/2024 Telephone [facility] Medical [facility] Cardiology [address] [place] [address] Tom De Jesus MD [address] [address] Social History Tobacco Use Types [...] week 03/24/2024 How often do you attend [facility] or taoism services? Never 03/24/2024 Do you belong to any clubs o r organizations such as hinduism groups, unions, fraternal or athletic groups, or [...] the past 12 m [facility], were you homeless or living in a prison (including now)? No 03/24/2024 Personal Safety Answer Date Recorded Have you ever been in or are you currently in a harmful physical or emotional relationship or is someone making you feel afraid or unsafe? Denies 03/22/2024 Sex and Gender Information Value Date Recorded Sex Assigned at Not on file Legal Sex Male 1:59 AM WEBSPHERE PORTAL ARCHITECT Gender Identity Not on file Sexual Orientation Not on file documented as of this encounter Miscellaneous Notes * Telephone Encounter - Lu Rhoades RN - 07/05/2024 11:56 AM WEBSPHERE PORTAL ARCHITECT Spoke with pt, his insurance covers MDINR. Informed him I would complete orders and fax and they will be in contact with him for training. Informed pt the process takes about 3-4 weeks. Pt appreciated the assistance. PHERE PORTAL ARCHITECT * Telephone Encounter - Esthela Mccurdy - 07/05/2024 11:36 AM CST Pt requesting a call back in regard to the status of his home INR machine. Contact:[phone] PHERE PORTAL ARCHITECT documented in this encounter Plan of Treatment Not on file documented as of this encounter Visit Diagnoses Not on filedocumented in this encounter Care Teams National Guard Member Relationship Specialty Start Date End Date Carolyn Davis MD [address] [place] [address] PCP - General 10/31/15 Ernie Baldwin MD [address] [place] [address] Surgeon Cardiothoracic Surgery 03/29/24 Tom De Jesus MD 1225 [facility] [address] [place] [address] Consulting Physician Cardiology 03/29/24 documented as of this encounter
--- OUTSIDE RECORDS SUMMARY | 2024-07-19 21:58 | XMS_ITS | Encounter Summary ---
Author Organization [facility] Healthcare Address [address] [place] [address] Care Team Providers Care Comb Setter Name Role Phone Carolyn Davis MD Primary Care Provider Ernie Baldwin MD Unavailable [phone] Tom De Jesus MD Unavailable Encounter Details Date Type Department Care Team (Late st Contact Info) Description 04/29/2024 Telephone [facility] Cardiology [address] [place] [address] Tom De Jesus MD [address] [address] Social History Tobacco Use Types [...] week 03/24/2024 How often do you attend [facility] or confucianism services? Never 03/24/2024 Do you belong to any clubs o r organizations such as baptist groups, unions, fraternal or athletic groups, or [...] any time in the past 12 m [facility], were you homeless or living in [...] file Legal Sex Male 1:59 AM ENVIRONMENTAL PROJECT MANAGER Gender Identity Not on file Sexual Orientation Not on file documented as of this encounter Miscellaneous Notes * Telephone Encounter - Angela Vines RN - 04/29/2024 11:46 AM CDT See AC note. Also called and LM on VM with Katherine PANDEY. * Telephone Encounter - Tresa Elmore - 04/29/2024 11:27 AM CDT Katherine CROWE RN called to report pts INR result today is 3.4 Contact: documented in this encounter Plan of Treatment Not on file documented as of this encounter Visit Diagnoses Not on filedocumented in this encounter Care Teams Comb Setter Relationship Specialty Start Date End Date Carolyn Davis MD [address] [place] [address] PCP - General 10/31/15 Ernie Baldwin MD [address] [place] [address] Surgeon Cardiothoracic Surgery 03/29/24 Tom De Jesus MD 1225 [facility] [address] [place] [address] Consulting Physician Cardiology 03/29/24 documented as of this encounter
--- OUTSIDE RECORDS SUMMARY | 2024-07-19 21:58 | XMS_ITS | Encounter Summary ---
Author Organization [facility] Healthcare Address [address] [place] [address] Care Team Providers Care Molder Vacuum Name Role Phone Carolyn Davis MD Primary Care Provider Ernie Baldwin MD Unavailable [phone] Tom De Jesus MD Unavailable Encounter Details Date Type Department Care Team (Latest Contact Info) Description 04/29/2024 Anticoagulation Visit [facility] Medical Group Cardiology [address] [place] [address] Angela Vines, RN Aortic valve [...] often do you attend chur ch or spiritism services? Never 03/24/2024 Do you belong to any clubs o r organizations such as sabianist groups, unions, fraternal or athletic groups, or [...] any time in the past 12 m [facility], were you homeless or living in a alf (including now)? No 03/24/2024 Personal Safety Answer Date Recorded Have you ever been in or are you currently in a harmful physical or emotional relationship or is someone making you feel afraid or unsafe? Denies 03/22/2024 Sex and Gender Information Value Date Recorded Sex Assigned at Not on file Legal Sex Male 1:59 AM STAGE ELECTRICIAN Gender Identity Not on file Sexual Orientation Not on file documented as of this encounter Plan of Treatment Not on file documented as of this encounter Procedures Procedure Name Priority Date/Time Associated Diagnosis Comments PROTIME-INR Routine 04/29/2024 documented in this encounter Results * (ABNORMAL) Protime-INR (04/29/2024) INR 3.40(A) 0.90 - 1.10 EXTERNAL LAB Blood us Historical Provider LAB BLOOD ORDERABLES Rita l Result EXTERNAL LAB documented in this encounter Visit Diagnoses Diagnosis Aortic valve replaced- Primary Heart valve replaced by other means documented in this encounter Care Teams Molder Vacuum Relationship Specialty Start Date End Date Carolyn Davis MD [address] [place] [address] PCP - General 10/31/15 Ernie Baldwin MD [address] [place] [address] Surgeon Cardiothoracic Surgery 03/29/24 Tom De Jesus MD 1225 [facility] [address] [place] [address] Consulting Physician Cardiology 03/29/24 documented as of this encounter
--- OUTSIDE RECORDS SUMMARY | 2024-07-19 21:58 | XMS_ITS | Encounter Summary ---
Author Organization [facility] Address [address] [place] [address] Phone Care Team Providers Care Envelope Folding Machine Operator Name Role Phone Carolyn Davis MD Primary Care Provider Ernie Baldwin MD Unavailable [phone] Tom De Jesus MD Unavailable Reason for Visit * Reason Onset Date Comments Anticoagulation 04/05/2024 Encounter Details Date Type Department Care Team (Late st Contact Info) Description 04/05/2024 Documentation [facility] Surgery [address] [facility] [address] [place] [address] [place] [address] [facility] [address] [facility] [address] [place] [address] Anticoagulation Social History Tobacco Use Types Packs/Day [...] often do you attend chur ch or advent services? Never 03/24/2024 Do you belong to any clubs o r organizations such as druze groups, unions, fraternal or athletic groups, or [...] any time in the past 12 m [facility], were you homeless or living in a longterm (including now)? No 03/24/2024 Personal Safety Answer Date Recorded Have you ever been in or are you currently in a harmful physical or emotional relationship or is someone making you feel afraid or unsafe? Denies 03/22/2024 Sex and Gender Information Value Date Recorded Sex Assigned at Not on file Legal Sex Male 1:59 AM ELECTROLOGIST Gender Identity Not on file Sexual Orientation Not on file documented as of this encounter Progress Notes * Eve Cota NP - 04/05/2024 11:41 AM CDT INR from Monday 04/02 1.8. Instructed patient to increase Warfarin to 5mg alt with 7.5, and to resume Lovenox which patient has at home. HHRN due to visit patient today and will have her recheck INRwith portable machine if available. Will plan to recheck on as well. Eve Cota DOT ETCHER APPRENTICE documented in this encounter Plan of Treatment Not on file documented as of this encounter Visit Diagnoses Not on filedocumented in this encounter Care Teams Envelope Folding Machine Operator Relationship Specialty Start Date End Date Carolyn Davis MD [address] [place] [address] PCP - General 10/31/15 Ernie Baldwin MD [id number] [place] [address] Surgeon Cardiothoracic Surgery 03/29/24 Tom De Jesus MD [address] [facility] [address] [place] [address] Consulting Physician Cardiology 03/29/24 documented as of this encounter
--- OUTSIDE RECORDS SUMMARY | 2024-07-19 21:58 | XMS_ITS | Encounter Summary ---
Author Organization [facility] Address [address] [place] [address] Phone Care Team Providers Care Home Housekeeper Name Role Phone Carolyn Davis MD Primary Care Provider Ernie Baldwin MD Unavailable [phone] Tom De Jesus MD Unavailable Reason for Visit * Reason Onset Date Comments Anticoagulation 04/08/2024 Encounter Details Date Type Department Care Team (Late st Contact Info) Description 04/08/2024 Documentation [facility] Surgery [address] [facility] [address] [place] [address] [place] [address] [facility] [address] [facility] [address] [place] [address] Anticoagulation Social History Tobacco Use Types Packs/Day [...] often do you attend chur ch or jain services? Never 03/24/2024 Do you belong to any clubs o r organizations such as rastafarian groups, unions, fraternal or athletic groups, or [...] any time in the past 12 m [facility], were you homeless or living in a jail (including now)? No 03/24/2024 Personal Safety Answer Date Recorded Have you ever been in or are you currently in a harmful physical or emotional relationship or is someone making you feel afraid or unsafe? 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 Instructed patient to increase Warfarin to 7.5mg daily and to continue Lovenox. Will send in refills to [facility] today. RN will recheck INR Thursday. Eve Cota STALLION KEEPER documented in this encounter Plan of Treatment Not on file documented as of this encounter Visit Diagnoses Not on filedocumented in this encounter Discontinued Medications Medication Sig Discontinue Reason Start Date End Da te warfarin (COUMADIN) 5 mg tablet Take 0.5 tablets (2.5 mg total) by mouth 3 (three) times a week AND 1 tablet (5 mg total) 4 (four) times a week. Take 2.5mg Tues, Th and Sat. Take 5mg Mon, Wed, Fri, Sun. Reorder 03/30/2024 04/08/2024 documented as of this encounter Care Teams Home Housekeeper Relationship Specialty Start Date End Date Carolyn Davis MD [address] [facility] [address] [place] [address] PCP - General 10/31/15 Ernie Baldwin MD [id number] [place] [address] Surgeon Cardiothoracic Surgery 03/29/24 Tom De Jesus MD [address] [address] Consulting Physician Cardiology 03/29/24 documented as of this encounter
--- OUTSIDE RECORDS SUMMARY | 2024-07-19 21:58 | XMS_ITS | Encounter Summary ---
Author Organization [facility] Address [address] [facility] [address] [place] [address] Phone Care Team Providers Care Environmental Services Director Name Role Phone Carolyn Davis MD Primary Care Provider Ernie Baldwin MD Unavailable [phone] Tom De Jesus MD Unavailable Encounter Details Date Type Department Care Team (Late st Contact Info) Description 04/28/2024 11:15 AM CDT Office Visit [facility] Surgery [address] [facility] [address] [place] [address] Re Hicks NP [address] [facility] [id number] [place] [address] S/P AVR (aortic valve replacement) (Primary Dx) Social History Tobacco Use Types [...] any clubs o r organizations such as mandaeism groups, unions, fraternal or athletic groups, or [...] on file 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 Gender Identity Not on file Sexual Orientation Not on file documented as of this encounter Last Filed Vital Signs Vital Sign Reading Time Taken Comments Blood Pressure 120/72 04/28/2024 11:55 AM CDT Pulse 76 04/28/2024 11:55 AM CDT Temperature - - Respiratory Rate 16 04/28/2024 11:55 AM CDT Oxygen Saturation 99% 04/28/2024 11:55 AM CDT Inhaled Oxygen Concentration - - Weight 72.6 kg (160 lb) 04/28/2024 11:55 AM CDT Height 182.9 cm (6') 04/28/2024 11:55 AM CDT Body Mass Index 21.7 04/28/2024 11:55 AM CDT documented in this encounter Progress Notes * Re Hicks, HUY - 04/28/2024 11:15 AM CDT Cardiothoracic Surgery Office Visit [facility] 1965 -Reason for Visit: POV -Date of Surgical Procedure: 03/22/2024 -Surgical Procedure: Aortic valve replacement using 23-millimeter OnX mechanical aortic valve. Sternal plating Doctors: PCP Anali Davis Post-Op AF Interval History: Patient here today accompanied by his for his postop visit status post AVR. He has done well since discharge and denies hospitalizations. He has returned to work. 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 I discussed with them talking to PCP about obtaining a home INR monitor to see if his insurance will cover that. Patient denies any palpitations, dizziness or syncope since surgery. He denies worsening shortness of breath or angina. He has had mild ankle swelling but this resolves overnight. He does complain of shoulder and back discomfort since surgery which I think is just musculoskeletal. Patient has also states his voice is ???not as strong?? as it was and did have a little bit of trouble swallowing certain foods. We discussed statin and follow up with ENT if necessary and a few months as this should hopefully recover on its own. We discussed valve precautions at length. They have no acute complaints. HOME MEDICATIONS : acetaminophen 500 mg capsule amiodarone (PACERONE) 200 mg tablet aspirin (ASPIR-81) 81 mg tablet buPROPion SR (ZYBAN) 150 mg 12 hr tablet dilTIAZem CD 240 mg 24 hr capsule furosemide (LASIX) 40 mg tablet methocarbamoL (ROBAXIN) 500 mg tablet metoprolol tartrate (LOPRESSOR) 25 mg immediate release tablet oxyCODONE (ROXICODONE) 5 mg immediate release tablet polyethylene glycol (MIRALAX) 17 gram/dose bulk powder QUEtiapine XR (SEROquel XR) 50 mg tablet extended release 24 hr rOPINIRole (REQUIP) 4 mg tablet rosuvastatin (CRESTOR) 40 mg tablet warfarin (COUMADIN) 5 mg tablet No Known Allergies Vital Signs: Vitals BP 120/72 Pulse 76 Resp 16 Ht 182.9 cm (6') Wt 72.6 kg (160 lb) SpO2 99% BMI 21.70 kg/m?? Physical Exam Constitutional: General: He is not in acute distress. Appearance: Normal appearance. He is normal weight. He is not ill-appearing, toxic-appearing or diaphoretic. HENT: Head: Normocephalic and atraumatic. Cardiovascular: Rate and Rhythm: Normal rate and regular rhythm. Heart sounds: Normal heart sounds. No murmur heard. Comments: + AV Click Pulmonary: Effort: No respiratory distress. Breath sounds: Normal breath sounds. Abdominal: General: There is no distension. Palpations: Abdomen is soft. Tenderness: There is no abdominal tenderness. Musculoskeletal: Right lower leg: No edema. Left lower leg: No edema. Skin: General: Skin is warm and dry. Comments: Sternum is stable to cough. Sternal incision is well approximated and healed. Neurological: Mental Status: He is alert. Tests Ordered: None Treatment Plan: Chano Briceno is recovering well a month out from surgery. We reviewed the medication list and I made no medication changes today. We reviewed restrictions on what he can and can not do/ we also reviewed valve precautions. I spoke with his cardiology office on 04/25/2023 and they will take over management of his INR. He is continue close follow-up with his precinct captain and PCP. I advised him to seek advice from his PCP on an ENT referral if patient is still having mild dysphagia and/or mild hoarseness 3 months from surgery. Patient is to return to clinic 3 months for anothercheck. He is to call with any incisional questions or concerns. Re Hicks NP 42:50 PM Soil Science Professor completed with [employer]. Soil Science Professor variances may occur. documented in this encounter Plan of Treatment Not on file documented as of this encounter Visit Diagnoses Diagnosis S/P AVR (aortic valve replacement)- Primary Heart valve replaced by other means documented in this encounter Care Teams Environmental Services Director Relationship Specialty Start Date End Date Carolyn Davis MD [address] [place] [address] PCP - General 10/31/15 Ernie Baldwin MD [id number] [place] [address] Surgeon Cardiothoracic Surgery 03/29/24 Tom De Jesus MD [address] [facility] [address] [place] [address] Consulting Physician Cardiology 03/29/24 documented as of this encounter
--- OUTSIDE RECORDS SUMMARY | 2024-07-19 21:58 | XMS_ITS | Encounter Summary ---
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 [address] [address] Phone: tel: fax: Unknown Place of Service fax: Referral ID Status Reason Start Date Expiration Date V isits Requested Visits Authorized [id number] Closed Specialty Services Required 03/28/2024 04/27/2025 1 1 [facility] Primary disciplines requested[facility] Labs, Wound/Ostomy Care Does the patient have a wound vac? No Wound Information: sternal incision open to air. Chest tube sutures to be removed by HHRN in one week Labs: CBC with Differential, CMP, INR CBC frequency: Other CBC frequency: once on 2nd visit CMP frequency: Other CMP frequency: once on 2nd HH visit INR frequency: 2x/week Date to Start Labs: 03/31/2024 Requested Start of Care Date: 24-48 hours Physician to follow patient's care (the person listed here will be responsible for signing ongoing orders): Referring Provider I attest that I or another qualified licensed provider saw the patient 90 days prior to or 30 days post admission and this face to face encounter meets the necessary Home Health requirements. The face to face encounter occurred on (date): 03/28/2024 The encounter with the patient was in whole, or in part, for the following medical condition, which is the primary reason for home health care. (List medical condition): s/p mechanical AVR I certify that, based on my findings, the following services are medically necessary skilled home health services: Wound/Ostomy Care, Labs Clinical findings that support the need for home care: Wound requiring care, assessment, and instruction I certify that my clinical findings support patient's homebound status. Homebound criteria met because: Requires assistance of another to leave home safely Reason for Visit * Auth/Cert (Routine) Specialty Diagnoses / Procedures Referred By Kary mata Referred To Contact Diagnoses Aortic valve stenosis, etiology of cardiac valve disease unspecified Aortic valve stenosis, etiology of cardiac valve disease unspecified [I35.0] Procedures NV RPLCMT PROST AORTIC VALVE OPEN XCP HOMOGRF/STENT REPLACEMENT AORTIC VALVE, LAMBERTO Referral ID Status Reason Start Date Expiration Date Visits Re quested Visits Authorized [id number] 1 1 Encounter Details Date Type Department Care Team (Latest Contact Info) Description 03/22/2024 5:30 AM CDT - 03/30/2024 2:00 PM CDT Hospital Encounter [address] [address] Ernie Baldwin MD [id number] [place] [address] Aortic stenosis, severe (Primary Dx); Aortic valve stenosis, etiology of cardiac valve disease unspecified Discharge Disposition: Discharge to home or self care Social History Tobacco Use Types Packs/Day Years [...] often do you attend chur ch or pentecostal services? Never 03/24/2024 Do you belong to any clubs o r organizations such as latter-day groups, unions, fraternal or athletic groups, or [...] any time in the past [address] 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 Gender Identity Not on file Sexual Orientation Not on file documented as of this encounter Last Filed Vital Signs Vital Sign Reading Time Taken Comments Blood Pressure 116/63 03/30/2024 12:38 PM CDT Pulse 82 03/30/2024 12:00 PM CDT Temperature 36.5 ??C (97.7 ??F) 03/30/2024 1 2:38 PM CDT Respiratory Rate 20 03/30/2024 12:3 8 PM CDT Oxygen Saturation 97% 03/30/2024 12: 38 PM CDT Inhaled Oxygen Concentration - - Weight 76.6 kg (168 lb 12.8 oz) 03/27/2024 6:00 AM CDT Height 183 cm (6' 0.05 ) 03/22/2024 12: 30 PM CDT Body Mass Index 22.86 03/22/2024 12:30 PM CDT documented in this encounter Discharge Summaries * Christo Cota NP - 03/29/2024 3:35 PM CDT Physician Discharge Summary Patient ID: Stephan Madden [id number] 1965 (58 y.o.) Admit date: 03/22/2024 Discharge date and time: 03/30/2024 Attending Physician: Ernie Baldwin MD Primary Diagnosis: Aortic valve stenosis Secondary Diagnoses: Depression Hypertension Paroxysmal SVT Seizures NICOLE TIA Post operative atrial fibrillation Procedures performed during hospitalization: Aortic valve replacement using 23- millimeter Leonidas mechanical aortic valve. Sternal plating by Dr. Baldwin 03/22/24 HPI: This is a 58 y.o. male who presented with symptoms of heart failure and was found to have severe aortic stenosis that was progressive. He is a smoker with COPD and was asked to cut back/quit smoking. We offered him surgical aortic valve replacement and offered a mechanical valve due to his younger age. He preferred the mechanical valve and was okay with lifelong anticoagulation. Hospital Course: Stephan Madden was taken to the operating room on 03/22/24 for AVR, performed by Dr. Baldwin. Stephan Cat was taken to the CVICU in stable condition postoperatively. When hemodynamically stable, the patient was weaned from inotropic and ventilator support. He did have postoperative atrial fibrillation and was chemically converted to NSR with Amiodarone. The patent was transferred to telemetry in stable condition. The patient progressed as expected. Aggressive physical therapy and pulmonary toilet were initiated. Diet was advanced as tolerated. Chest tubes were discontinued without difficulty. Pacemaker wires were removed. Wounds remained clean, dry, and intact. He was discharged after INR became therapeutic at 3.4. He was advised to take Warfarin 2.5mg Tues/Thurs/Sat alternating with 5mg M/W/F/Sun. Once the patient was medically stable, Stephan Madden was discharged to Home. Post Op Complications: Afib Significant labs: Lab Results Component Value Date WBC 11.8 (H) 03/29/2024 HGB 8.6 (L) 03/29/2024 HCT 26.1 (L) 03/29/2024 LABPLAT 192 03/29/2024 Lab Results Component Value Date SODIUM 137 03/29/2024 POTASSIUM 3.3 03/29/2024 CHLORIDE 100 03/29/2024 CO2 25 03/29/2024 ANIONGAP 12 03/29/2024 GLUCOSE 151 03/29/2024 BUNSER 26 (H) 03/29/2024 CREATININE 0.73 (L) 03/29/2024 CALCIUM 9.0 03/29/2024 Lab Results Component Value Date APTT 74 (H) 03/29/2024 INR 1.66 (H) 03/29/2024 CXR: Small right pleural effusion Rhythm on discharge: Normal Sinus Rhythm Coumadin dose: 2.5mg Tues/Thurs/Sat; 5mg M/W/F/Sun Coumadin Indication: Mechanical valve Target INR: 2.5-35 MD Following INR upon d/c: Ray Discharge Medications: Current Discharge Medication List START taking these medications Details acetaminophen 500 mg capsule Take 2 capsules (1,000 mg total) by mouth every 6 (six) hours Comments: Over the counter amiodarone (PACERONE) 200 mg tablet Take 1 tablet (200 mg total) by mouth daily Qty: 30 tablet, Refills: 1 enoxaparin (LOVENOX) 80 mg/0.8 mL syringe Inject 0.8 mL (80 mg total) under the skin every 12 (twelve) hours for 7 days Qty: 11.2 mL, Refills: 0 furosemide (LASIX) 40 mg tablet Take 1 tablet (40 mg total) by mouth daily for 7 days Qty: 7 tablet, Refills: 0 methocarbamoL (ROBAXIN) 500 mg tablet Take 1 tablet (500 mg total) by mouth 3 (three) times a day as needed for muscle spasms Qty: 21 tablet, Refills: 0 polyethylene glycol (MIRALAX) 17 gram/dose bulk powder Take 17 g by mouth daily as needed (constipation) Current Discharge Medication List STOP taking these medications eszopiclone (LUNESTA) 3 mg tablet Comments: Reason for Stopping: naltrexone (DEPADE) 50 mg tablet Comments: Reason for Stopping: Current Discharge Medication List CONTINUE these medications which have NOT CHANGED Details aspirin (ASPIR-81) 81 mg tablet take 1 tablet by oral route every day Qty: 0, Refills: 0 buPROPion SR (ZYBAN) 150 mg 12 hr tablet Take 1 tablet (150 mg total) by mouth 2 (two) times a day dilTIAZem CD 240 mg 24 hr capsule Take 1 capsule (240 mg total) by mouth every evening QUEtiapine XR (SEROquel XR) 50 mg tablet extended release 24 hr Take 1 tablet (50 mg total) by mouth 2 (two) times a day rOPINIRole (REQUIP) 4 mg tablet Take 1 tablet (4 mg total) by mouth 2 (two) times a day as needed rosuvastatin (CRESTOR) 40 mg tablet Take 1 tablet (40 mg total) by mouth nightly warfarin (COUMADIN) 5 mg tablet Take 1 tablet (5 mg total) by mouth nightly Current Discharge Medication List CONTINUE these medications which have CHANGED Details metoprolol tartrate (LOPRESSOR) 25 mg immediate release tablet Take 1 tablet (25 mg total) by mouth2 (two) times a day Qty: 60 tablet, Refills: 1 Physical Exam at discharge: Please see progress note from day of discharge. Code Status at Discharge: Full Code Discharge Instructions: Discharge Instructions: Physical therapy instructions provided. No tub baths. OK to shower. Incision open to air. Activity:avoid strenuous exercise, no heavy lifting, pushing, pulling greater than 5-10 lbs for 4 to 6 weeksand no driving for 4 weeks. Limit overhead reaching, general use of the upper extremity for two additional weeks. Discharge Diet: cardiac diet Outpatient Follow-Up: Future Appointments Date Time Provider Department Center 04/28/2024 11:30 AM Ernie Baldwin MD [facility] [place] 01/18/2025 2:00 PM Tom De Jesus MD [facility] Specialty Follow-up with PCP in 4-6 weeks Notify physician with fevers, chills, nausea, or vomiting, SOB, chest pain, or wound drainage. CBC and CMP to be drawn in one week and fax results to [phone]. Patient instructed to have [facility] on 04[facility] at [facility] and faxed to CTS office [phone]. He was provided with a standing order. Home health nursing admission is pending at the time of discharge and is being arranged by the patient's hospice case manager with [facility]. Information on cardiac rehab was provided to the patient, and will be discussed at post-op appointment. Stephan Madden was discharged and given a full set of written discharge instructions, and prescriptions. These were reviewed with the patient prior to discharge. He fully understood them and signed the release form. He was discharged in a wheelchair in no acute distress, accompanied by . Signed: Christo Cota NP Cardiothoracic Surgery [facility] [phone] 43:30 PM Cosigned by Ernie Baldwin MD at 04/03/2024 2:57 PM CDT documented in this encounter Discharge Instructions * Discharge Instr - Diet* Gloria Christian, RD - 03/29/2024 12:21 PM CDT Continue to follow a heart healthy diet that is low in sodium, trans fat and saturated fat. Read the nutrition facts label on packages. Aim to eat less than 2,000mg sodium per day (about 500-700 mg per meal). Do not add salt to foods and avoid foods that are high sources of sodium, such as fast foods, fried/breaded foods, canned goods, deli meats and gravies/sauces. Increase your intake of foods high in fiber, such as whole grains, fruits and vegetables. For questions, can call [facility] Dietitian's Office at [phone]. Additional resources available online from the [employer] at www.heart.org/en/healthy-living/healthy-eating documented in this encounter Medications at Time of Discharge acetaminophen 500 mg capsuleIndications:Pa in Take 2 capsules (1,000 mg total) by mouth every 6 (six) hours 03/29/2024 buPROPion SR (ZYBAN) 150 mg 12 hr tablet Take 1 tablet (150 mg total) by mouth 2 (two) times a day dilTIAZem CD 240 mg 24 hr capsule Take 1 capsule (240 mg total) by mouth every evening 01/11/2024 metoprolol tartrate (LOPRESSOR) 25 mg immediate release tablet Take 1 tablet (25 mg total) by mouth 2 (two) times a day 60 tablet 1 03/29/2024 polyethylene glycol (MIRALAX) 17 gram/dose bulk powderIndications:con stipation Take 17 g by mouth daily as needed (constipation ) 03/29/2024 QUEtiapine XR (SEROquel XR) 50 mg tablet extended release 24 hr Take 1 tablet (50 mg total) by mouth 2 (two) times a day rOPINIRole (REQUIP) 4 mg tablet Take 1 tablet (4 mg total) by mouth 2 (two) times a day as needed 01/04/2024 rosuvastatin (CRESTOR) 40 mg tablet Take 1 tablet (40 mg total) by mouth nightly enoxaparin (LOVENOX) 80 mg/0.8 mL syringeIndications:In chanical Valve Thromboembolism Prophylaxis Inject 0.8 mL (80 mg total) under the skin every 12 (twelve) hours for 7 days 11.2 mL 03/29/2024 4 amiodarone (PACERONE) 200 mg tabletIndications:Pre vention of A. Fib Post Cardio-Thoracic Surgery Take 1 tablet (200 mg total) by mouth daily 30 tablet 1 03/29/2024 4 aspirin (ASPIR-81) 81 mg tablet take 1 tablet by oral route every day 0 0 08/08/2015 4 furosemide (LASIX) 40 mg tablet Take 1 tablet (40 mg total) by mouth daily for 7 days 7 tablet 03/30/2024 4 methocarbamoL (ROBAXIN) 500 mg tablet Take 1 tablet (500 mg total) by mouth 3 (three) times a day as needed for muscle spasms 21 tablet 03/29/2024 4 oxyCODONE (ROXICODONE) 5 mg immediate release tabletIndications:Godfrey n Take 1 tablet (5 mg total) by mouth every 4 (four) hours as needed for pain 27 tablet 03/29/2024 4 warfarin (COUMADIN) 5 mg tablet Take 0.5 tablets (2.5 mg total) by mouth 3 (three) times a week AND 1 tablet (5 mg total) 4 (four) times a week. Take 2.5mg Tues, Thurs and Sat. Take 5mg Mon, Wed, Fri, Sun. 03/30/2024 4 documented as of this encounter Ordered Prescriptions Prescription Sig Dispense Quantity Refills Last Filled Start Date End Date polyethylene glycol (MIRALAX) 17 gram/dose bulk powderIndications:con stipation Take 17 g by mouth daily as needed (constipation ) 03/29/2024 acetaminophen 500 mg capsuleIndications:Pa in Take 2 capsules (1,000 mg total) by mouth every 6 (six) hours 03/29/2024 metoprolol tartrate (LOPRESSOR) 25 mg immediate release tablet Take 1 tablet (25 mg total) by mouth 2 (two) times a day 60 tablet 1 03/29/2024 warfarin (COUMADIN) 5 mg tablet Take 0.5 tablets (2.5 mg total) by mouth 3 (three) times a week AND 1 tablet (5 mg total) 4 (four) times a week. Take 2.5mg Tues, Thurs and Sat. Take 5mg Mon, Wed, Fri, Sun. 03/30/2024 4 oxyCODONE (ROXICODONE) 5 mg immediate release tabletIndications:Godfrey n Take 1 tablet (5 mg total) by mouth every 4 (four) hours as needed for pain 27 tablet 03/29/2024 4 methocarbamoL (ROBAXIN) 500 mg tablet Take 1 tablet (500 mg total) by mouth 3 (three) times a day as needed for muscle spasms 21 tablet 03/29/2024 4 furosemide (LASIX) 40 mg tablet Take 1 tablet (40 mg total) by mouth daily for 7 days 7 tablet 03/30/2024 4 enoxaparin (LOVENOX) 80 mg/0.8 mL syringeIndications:In chanical Valve Thromboembolism Prophylaxis Inject 0.8 mL (80 mg total) under the skin every 12 (twelve) hours for 7 days 11.2 mL 03/29/2024 4 amiodarone (PACERONE) 200 mg tabletIndications:Pre vention of A. Fib Post Cardio-Thoracic Surgery Take 1 tablet (200 mg total) by mouth daily 30 tablet 1 03/29/2024 4 documented in this encounter Discharge Disposition Disposition Code Departure Means Destination Comment s Discharge to home or self care Car documented in this encounter Progress Notes * Angela Figueredo PTA - 03/30/2024 2:00 PM CDT Physical Therapy PT PROGRESS NOTE PATIENT'S NAME:Stephan Madden :1965 AGE:58 y.o. ROOM:[place] [address] Past Medical History: Diagnosis Date Arthritis Atrial fibrillation (CMS/HCC) (HCC) Depression H/O ETOH abuse went to rehab for 3 months Heart murmur Hypertension Nonrheumatic aortic (valve) stenosis Paroxysmal SVT (supraventricular tachycardia) (HCC) Seizures (HCC) 1 x 3-4 years ago d/t ETHO Sleep apnea uses cpap SOB (shortness of breath) end of day chest feels tight and uncomfortable TIA (transient ischemic attack) hosp 03/08/2024 - 03/10/2024 Past Surgical History: Procedure Laterality Date CARDIAC CATHETERIZATION 02/23/2024 COLONOSCOPY OTHER SURGICAL HISTORY JAVIER TYMPANOSTOMY TUBE PLACEMENT Patient Active Problem List Diagnosis Tobacco dependence Nonrheumatic aortic valve stenosis Supraventricular tachycardia (HCC) Lipid screening Aortic valve stenosis Aortic stenosis, severe TIME IN: 1205 TIME OUT: 1300 SUBJECTIVE I'm here because they screwed up. Patient describes issues setting up home health as the reason he remained here another night. MENTAL STATUS/ORIENTATION: Alert and oriented x4 PAIN: Pre-therapy pain level: none Pain location: na Pain intervention: na Post-therapy pain level/response to intervention: none OBJECTIVE PRECAUTIONS: fall and cardiac / sternal precautions APPEARANCE/POSTURE: seated in recliner, cardiac cath lab manager intact, spouse present, patient dressed in street clothes. MOBILITY DOCUMENTATION: Bed Mobility/Transfers: sit <> stand from recliner to no AD without use of hand and steady. Gait: 500' with no AD, steady, good melly. Ascends / descends single curb step x 8 reps with no significant change to HR, mild SOB. Stable. TREATMENT: Therapeutic listening regarding anxiety over length of hospital stay and some calming cues regarding his anxiety. APPEARANCE/POSTURE (end of session): seated in recliner, call light in reach EDUCATION:functional transfer training, gait training , strengthening, endurance training, safety ,and post-op precautions RESPONSE TO EDUCATION: verbalizes understanding ASSESSMENT Activity tolerance/response to P.T.: EXCELLENT Patient is moving well without balance deficits or significant change in HR. Patient follows precautions and is motivated. Barriers to learning: Emotional Barriers to discharge: Anxiety Patient continues progressing toward previously set goals which remain appropriate at this time. PLAN PT Discharge Recommendations this date: PT Recommendation/Plan: Home with 24 hour supervision, Home Health PT Patient at high risk for: Falls, Readmission, Injury due to decreased ability to care for self, Injury due to reduced functional status, Injury due to balance deficits, Injury at home as patient has not returned to prior level of function, Developing secondary complications: poor health management,Prolonged dependence for self care tasks, Difficulty maintaining orthopedic restrictions, Improper u se of DME PT Frequency during current admission: 3-5x/wk CARE PLAN COMPLETED ALL - SAFE for HOME DC Multi-Disciplinary Problems (from Physical Therapy) Active Problems Not on file If this is the last note, please consider this the discharge summary. Cosigned by Odin Cartagena, PT at 03/30/2024 4:21 PM CDT * Christo Cota NP - 03/30/2024 12:20 PM CDT Cardiothoracic Surgery Progress Note Stephan Madden 1965 Hospital DAY#8 8 Days Post-Op s/p: Procedures: * REPLACEMENT AORTIC VALVE, LAMBERTO Subjective: Patient resting in chair on room air. Doing well. Did not discharge yesterday due to HHnot being arranged yet. INR now therapeutic, will d/c Lovenox OBJECTIVE: Vitals: Temp: [36.4 ??C (97.6 ??F)-37 ??C (98.6 ??F)] 36.4 ??C (97.6 ??F) Pulse: [72-86] 82 BP: (101-115)/(49-58) 112/54 Resp: [17-20] 18 SpO2: [93 %-99 %] 99 % Wt Readings from Last 3 Encounters: 03/27/24 76.6 kg (168 lb 12.8 oz) 03/17/24 81.6 kg (180 lb) 02/26/24 79.4 kg (175 lb) I/O last 2 completed shifts: In: 740 [P.O.:740] Out: - Physical Exam HENT: Head: Normocephalic and atraumatic. Mouth/Throat: Mouth: Mucous membranes are moist. Eyes: Extraocular Movements: Extraocular movements intact. Cardiovascular: Rate and Rhythm: Normal rate. Heart sounds: No murmur heard. Comments: Mech click Pulmonary: Effort: Pulmonary effort is normal. Breath sounds: Normal breath sounds. Comments: On RA Abdominal: General: Abdomen is flat. Palpations: Abdomen is soft. Musculoskeletal: General: Normal range of motion. Cervical back: Normal range of motion and neck supple. Right lower leg: No edema. Left lower leg: No edema. Skin: General: Skin is warm and dry. 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 Mental Status: He is alert. Access: peripheral IV Recent Labs Lab Units 03/29/24 0540 03/28/24 0630 03/27/24 1423 WBC K/cumm 11.8* 11.8* 10.5* HEMOGLOBIN g/dL 8.6* 8.1* 8.1* HEMATOCRIT % 26.1* 24.4* 23.2* PLATELETS K/cumm 192 169 137* Recent Labs Lab Units 03/30/24 0954 03/29/24 0540 03/28/24 0630 SODIUM mmol/L 138 137 137 POTASSIUM PLASMA mmol/L 4.0 3.3 3.4 CHLORIDE mmol/L 102 100 99 CO2 mmol/L 24 25 27 BUN SERUM mg/dL 24 26* 25 CREATININE mg/dL 0.67* 0.73* 0.75* CALCIUM mg/dL 9.1 9.0 9.0 Recent Labs Lab Units 03/30/24 0954 03/29/24 0848 03/29/24 0540 03/29/24 0028 03/28/24 2204 03/28/24 1353 03/28/24 0630 PROTIME (PT) sec 38.7* 18.1* -- -- -- -- 11.9 INR 3.49* 1.66* -- -- -- -- 1.10 APTT sec -- -- 74* 70* >150* < > 56* < > = values in this interval not displayed. Drips: Heparin Imaging: CXR small right effusion Assessment and Plan: 58 y.o. male 8 Days Post-Op s/p AVR with 23mm Morro valve + sternal plating Neuro: Transient left hand and leg tingling/numbness, now resolved. Has history of TIA prior to OR-recommend continue therapeutic anticoagulation which he is on. Has followed with neurology regardingthis CVS: Afib postop, has maintained NSR. Continue Amio 400mg daily, diltiazem 240mg, Losartan, Metoprolol. Wires out. INR 3.4, d/c Lovenox. Will discharge on Warfarin 2.5mg alt with 5mg Pulm: on RA, lasix daily. IS, OOB, pulm toilet GI: Tolerating diet Renal: renal function WNL ID: Completed course of prophylactic Abx D/L/T: PIV Prophylaxis: Wafarin Dispo: D/c today, may not be able to get services. If this is the case will have patient come tothe office in one week and have INR drawn at [place] Christo Cota NP Cardiothoracic Surgery [facility] Cosigned by Ernie Baldwin MD at 04/03/2024 3:03 PM CDT * Jolanta Quintero, - 03/30/2024 11:31 AM CDT CARDIOLOGY PROGRESS NOTE 03/30/2024 CHIEF COMPLAINT Status post AVR INTERVAL HISTORY Patient was requested to be seen in consultation by for severe aortic stenosis status post aortic valve replacement. Stephan Madden is a 58 y.o. male with hypertension, hyperlipidemia, PSVT, possible paroxysmal atrial fibrillation, history of alcohol abuse, TIA. Followed in the office by . Recently foundto have severe aortic stenosis. Seen by CT surgery, and presented for outpatient mechanical AVR. Patient is in the CVU, intubated and sedated. Had surgery earlier today. On Cleviprex, currently being weaned. On sedation. 03/23-patient lying in bed on nasal cannula. He was just extubated about 10 minutes ago. He is lethargic but arousable. Currently on Levophed and vasopressin drips. 03/24- . Sitting up in the chair, but very sleepy. Apparently did not sleep well last night. Went into AFib with RVR this morning, getting amiodarone bolus. 03/25- sitting up in bed. Received a unit of blood yesterday. Doing much better today. In sinus rhythm. Brother and sister at the bedside. No new issues overnight. 03/29- patient doing well. Tentatively plan for discharge later this afternoon. INR still subtherapeutic, plan for home with Lovenox and warfarin. Patient did have some symptoms of tingling in his armfor about 20 minutes that resolved. Concerned that it is possibly a TIA, given his history of TIA. No current symptoms. No weakness. 03/30- patient stayed overnight awaiting for home health to be arranged HOSPITAL MEDICATIONS No Known Allergies Scheduled Meds:acetaminophen, 1,000 mg, oral, Q6H CHAVO albuterol, 2.5 mg, nebulization, QID amiodarone, 400 mg, oral, Daily aspirin, 81 mg, oral, Daily buPROPion SR, 150 mg, oral, BID dilTIAZem CD/XR/XT, 240 mg, oral, Daily with dinner famotidine, 20 mg, oral, BID furosemide, 40 mg, oral, Daily insulin lispro, 0-10 Units, subcutaneous, 5x daily (with meals, nightly, & 0200) losartan, 25 mg, oral, Daily methocarbamoL, 500 mg, oral, TID metoprolol tartrate, 25 mg, oral, BID polyethylene glycol, 17 g, oral, Daily QUEtiapine, 50 mg, oral, Nightly rOPINIRole, 4 mg, oral, BID rosuvastatin, 10 mg, oral, Nightly senna-docusate, 2 tablet, oral, BID sodium chloride 0.9%, 0.5-20 mL, intra-catheter, Q8H [facility] Continuous Infusions:sodium chloride 0.9%, 10 mL/hr PRN Meds:. sodium chloride 0.9% dextrose OR dextrose glucagon oxyCODONE prochlorperazine sodium chloride 0.9% sodium chloride 0.9% REVIEW OF SYSTEMS ROS No chest pain. No shortness of breath. LABS AND OTHER DIAGNOSTIC TESTS Lab Results Component Value Date WBC 11.8 (H) 03/29/2024 HGB 8.6 (L) 03/29/2024 HCT 26.1 (L) 03/29/2024 MCV 91.9 03/29/2024 Recent Labs Lab Units 03/30/24 0954 CO2 mmol/L 24 CREATININE mg/dL 0.67* CALCIUM mg/dL 9.1 GLUCOSE mg/dL 187 No results found for: CHOL No results found for: HDL No results found for: LDLCALC No results found for: TRIG PHYSICAL EXAM Vitals: BP 112/54 (BP Location: Left arm, Patient Position: Sitting) Pulse 82 Temp 36.4 ??C (97.6 ??F) (Oral) Resp 18 Ht 183 cm (6' 0.05 ) Wt 76.6 kg (168 lb 12.8 oz) SpO2 99% BMI 22.86kg/m?? Physical Exam Vitals reviewed. Constitutional: Appearance: Normal appearance. He is well-developed. Comments: Lethargic, arousable HENT: Head: Normocephalic and atraumatic. Nose: Nose normal. Eyes: General: No scleral icterus. Cardiovascular: Rate and Rhythm: Normal rate and regular rhythm. Pulmonary: Comments: Symmetric chest expansion Abdominal: General: There is no distension. Musculoskeletal: Right lower leg: No edema. Left lower leg: No edema. Skin: General: Skin is warm. Neurological: Mental Status: He is alert. Comments: Awake and alert Psychiatric: Mood and Affect: Mood normal. ASSESSMENT -severe s/p AVR 23mm Leonidas mech valve -postop AFib with RVR -postop anemia/thrombocytopenia -PSVT -hypertension -dyslipidemia -prior TIA PLAN/RECOMMENDATIONS -severe s/p AVR 23mm Morro mech valve, continue warfarin -postop AFib with RVR, continue metoprolol and diltiazem. Remains in sinus rhythm. Anticoagulation with warfarin -postop anemia- hemoglobin stable -post0-op thrombocytopenia- resolved -hypertension, BP is well controlled. Continue diltiazem, metoprolol, losartan -PSVT, remains in sinus rhythm. Stable. Continue diltiazem -dyslipidemia, continue rosuvastatin -prior TIA, continue aspirin, now on full anticoagulation for mechanical valve -left arm tingling, patient had left arm tingling yesterday for about 20 minutes. Unclear etiology,initial concern for possible TIA. Symptoms completely resolved. Patient will remain on full anticoagulation, therefore no change in treatment Jolanta Quintero DO * Nena Ray COTA - 03/30/2024 9:53 AM CDT Occupational Therapy NOTE / SESSION TYPE: DAILY PROGRESS / TREATMENT Patient's Name: Stephan Madden Age / Sex: 58 y.o. / male Room: [id number] : 1965 Date of service: 03/30/24 TIME IN: 0950 TIME OUT: 1007 Patient Active Problem List Diagnosis Tobacco dependence Nonrheumatic aortic valve stenosis Supraventricular tachycardia (HCC) Lipid screening Aortic valve stenosis Aortic stenosis, severe Past Medical History: Diagnosis Date Arthritis Atrial fibrillation (CMS/HCC) (HCC) Depression H/O ETOH abuse went to rehab for 3 months Heart murmur Hypertension Nonrheumatic aortic (valve) stenosis Paroxysmal SVT (supraventricular tachycardia) (HCC) Seizures (HCC) 1 x 3-4 years ago d/t ETHO Sleep apnea uses cpap SOB (shortness of breath) end of day chest feels tight and uncomfortable TIA (transient ischemic attack) hosp 03/08/2024 - 03/10/2024 Past Surgical History: Procedure Laterality Date CARDIAC CATHETERIZATION 02/23/2024 COLONOSCOPY OTHER SURGICAL HISTORY JAVIER TYMPANOSTOMY TUBE PLACEMENT Precautions (including weight-bearing): Fall risk, Sternal precautions, and Cardiac precautions Subjective: Pt says I'm medically stable to go home Therapy Pain: Pre-therapy pain level: 2 /10 Pain location: chest Pain Intervention(s): Patient denied need for pain medication Post-therapy pain level: 2 /10 Pain scale reference: 0-10 SCALE Objective: Appearance: Presentation upon OT arrival: Patient Sitting in bedside recliner Presentation upon OT departure: Patient Sitting in bedside recliner Bed / Chair alarm in place and activated upon OT departure: None Observed Call light within arms reach of patient at end of session: Yes Completed patient handoff and notified COURTESY DRIVER / RN, of patient's location and functional status upon completion of session Cognitive / Perceptual: A&O x4, verbalized sternal precautions with 100% accuracy. Mobility / Transfers: Transfer(s): pt independent with all transfers Living Skills / Other Activities: UE THERAPEUTIC EXERCISES: EXERCISE TYPE: CHEST MOBILIZATION EXERCISE(S) COMPLETED WITH NUMBER OF REPETITIONS: CHEST MOBILIZATION- JUMPING JACKS 10, CHEST MOBILIZATION- STRAIGHT ARMS OUT IN FRONT 10, CHEST MOBILIZATION- ELBOW CIRCLES 10, and CHEST MOBILIZATION- SHOULDER SHRUGS 10 NUMBER OF SETS: 1 ASSIST LEVEL: Initial instructions / demonstration LOCATION OF COMPLETION: standing at bedside TOLERANCE: pt tolerated well without complaints of pain. UE dressing: Patient completed upper body dressing of Button-down shirt while Standing at bedside with overall [place]. Patient required assistance for N/A - Independent. Caregiver Present: No Education & Training Provided: Role of OT, OT plan of care, ADL training, and UE home exercise program Assessment: Activity tolerance / response to OT session: GOOD PARTICIPATION, GOOD MOTIVATION, and RECEPTIVE TO EDUCATION / TRAINING Progress towards goals: Please refer to care plan from this date for progress towards individual goals Plan: Therapy Plan: Rehab Potential (Prognosis): fair OT Recommendations This Date: OT RECOMMENDATIONS: OT Recommendation: Home with 24 hour supervision, Home Health OT Flow sheet updated and OT Consultation in Regards to Change in Discharge Recommendations: YES /NO: No Additional recommendation comments: Frequency of therapy:OT Frequency during current admission: 3-5x/wk If this is the last note, consider this the discharge summary BONNIE Senior 03/30/24 Cosigned by Radha Smalls OT at 03/30/2024 3:39 PM CDT * Jolanta Quintero, - 03/29/2024 12:25 PM CDT CARDIOLOGY PROGRESS NOTE 03/29/2024 CHIEF COMPLAINT Status post AVR INTERVAL HISTORY Patient was requested to be seen in consultation by for severe aortic stenosis status post aortic valve replacement. Stephan Madden is a 58 y.o. male with hypertension, hyperlipidemia, PSVT, possible paroxysmal atrial fibrillation, history of alcohol abuse, TIA. Followed in the office by . Recently foundto have severe aortic stenosis. Seen by CT surgery, and presented for outpatient mechanical AVR. Patient is in the CVU, intubated and sedated. Had surgery earlier today. On Cleviprex, currently being weaned. On sedation. 03/23-patient lying in bed on nasal cannula. He was just extubated about 10 minutes ago. He is lethargic but arousable. Currently on Levophed and vasopressin drips. 03/24- . Sitting up in the chair, but very sleepy. Apparently did not sleep well last night. Went into AFib with RVR this morning, getting amiodarone bolus. 03/25- sitting up in bed. Received a unit of blood yesterday. Doing much better today. In sinus rhythm. Brother and sister at the bedside. No new issues overnight. 03/29- patient doing well. Tentatively plan for discharge later this afternoon. INR still subtherapeutic, plan for home with Lovenox and warfarin. Patient did have some symptoms of tingling in his armfor about 20 minutes that resolved. Concerned that it is possibly a TIA, given his history of TIA. No current symptoms. No weakness. HOSPITAL MEDICATIONS No Known Allergies Scheduled Meds:acetaminophen, 1,000 mg, oral, Q6H CHAVO albuterol, 2.5 mg, nebulization, Q6H CHAVO (RT) amiodarone, 400 mg, oral, Daily aspirin, 81 mg, oral, Daily buPROPion SR, 150 mg, oral, BID dilTIAZem CD/XR/XT, 240 mg, oral, Daily with dinner enoxaparin, 1 mg/kg, subcutaneous, Q12H CHAVO famotidine, 20 mg, oral, BID furosemide, 40 mg, oral, Daily insulin lispro, 0-10 Units, subcutaneous, 5x daily (with meals, nightly, & 0200) losartan, 25 mg, oral, Daily methocarbamoL, 500 mg, oral, TID metoprolol tartrate, 25 mg, oral, BID polyethylene glycol, 17 g, oral, Daily QUEtiapine, 50 mg, oral, Nightly rOPINIRole, 4 mg, oral, BID rosuvastatin, 10 mg, oral, Nightly senna-docusate, 2 tablet, oral, BID sodium chloride 0.9%, 0.5-20 mL, intra-catheter, Q8H CHAVO warfarin, 7.5 mg, oral, Daily-1800 Continuous Infusions:sodium chloride 0.9%, 10 mL/hr PRN Meds:. sodium chloride 0.9% dextrose OR dextrose glucagon oxyCODONE prochlorperazine sodium chloride 0.9% sodium chloride 0.9% REVIEW OF SYSTEMS ROS No chest pain. No shortness of breath. LABS AND OTHER DIAGNOSTIC TESTS Lab Results Component Value Date WBC 11.8 (H) 03/29/2024 HGB 8.6 (L) 03/29/2024 HCT 26.1 (L) 03/29/2024 MCV 91.9 03/29/2024 Recent Labs Lab Units 03/29/24 0540 CO2 mmol/L 25 CREATININE mg/dL 0.73* CALCIUM mg/dL 9.0 GLUCOSE mg/dL 116 No results found for: CHOL No results found for: HDL No results found for: LDLCALC No results found for: TRIG PHYSICAL EXAM Vitals: BP 128/76 (BP Location: Right arm, Patient Position: Sitting) Pulse 87 Temp 36.9 ??C (98.4 ??F) Resp 20 Ht 183 cm (6' 0.05 ) Wt 76.6 kg (168 lb 12.8 oz) SpO2 98% BMI 22.86 kg/m?? Physical Exam Vitals reviewed. Constitutional: Appearance: Normal appearance. He is well-developed. Comments: Lethargic, arousable HENT: Head: Normocephalic and atraumatic. Nose: Nose normal. Eyes: General: No scleral icterus. Cardiovascular: Rate and Rhythm: Normal rate and regular rhythm. Pulmonary: Comments: Symmetric chest expansion Abdominal: General: There is no distension. Musculoskeletal: Right lower leg: No edema. Left lower leg: No edema. Skin: General: Skin is warm. Neurological: Mental Status: He is alert. Comments: Awake and alert Psychiatric: Mood and Affect: Mood normal. ASSESSMENT -severe s/p AVR 23mm Morro mech valve -postop AFib with RVR -postop anemia/thrombocytopenia -PSVT -hypertension -dyslipidemia -prior TIA PLAN/RECOMMENDATIONS -severe s/p AVR 23mm Leonidas mech valve, doing well postoperatively. Echocardiogram today with normal EF, normal appearance and function of aortic valve. -postop AFib with RVR, remains in sinus rhythm. Continue metoprolol and diltiazem. Patient is already on warfarin for mechanical valve -postop anemia/thrombocytopenia- thrombocytopenia resolved and anemia improved and stable. -hypertension, controlled. Continue diltiazem, losartan, metoprolol -PSVT, stable. No further episodes -dyslipidemia, continue management with rosuvastatin -prior TIA, now on full anticoagulation and aspirin -left arm tingling, patient had left arm tingling today, lasted about 20 minutes earlier this morning. Thought that it may be another TIA, due to history. He states this episode was different, however. No current deficits or symptoms. Discussed with CT surgery. Patient will be started on full-dose Lovenox for bridging, along with warfarin until INR is therapeutic. Plan for discharge today. I consulted dietitian for education on warfarin and dietary/vitamin K issues. We will arrange follow up in the office Jolanta Quintero DO * Angela Figueredo PTA - 03/29/2024 11:28 AM CDT Physical Therapy STAFF ASSIST CHARGE ONLY Time in: 1108 Time out: 1128 General mobility questions answered. Patient is scheduled for discharge today at 1330. Patient is observed ambulating in hallway pushing I.V. pole without difficulty. Patient denies need for w/w. Mobility ability supports this choice. Also may have access to a w/w from family friend if needed. Reviewed correct performance of IS. Patient denies any need for additional mobility with therapist. Angela Figueredo PTA 03/29/24 11:31 AM Cosigned by Odin Cartagena, PT at 03/29/2024 12:58 PM CDT * Christo Cota NP - 03/29/2024 10:36 AM CDT Cardiothoracic Surgery Progress Note Stephan Madden 1965 Hospital DAY#7 7 Days Post-Op s/p: Procedures: * REPLACEMENT AORTIC VALVE, LAMBERTO Subjective: Patient resting in chair on room air. Had an episode this morning of numbness, tinglingin his left arm and left leg which lasted about 30 minutes. [place] like his left extremities were cool during this time. No vision changes, dizziness, unilateral weakness or other focal deficits. OBJECTIVE: Vitals: Temp: [36.5 ??C (97.7 ??F)-36.9 ??C (98.4 ??F)] 36.9 ??C (98.4 ??F) Pulse: [76-87] 87 BP: (104-128)/(48-76) 128/76 Resp: [18-20] 20 SpO2: [98 %-99 %] 98 % Wt Readings from Last 3 Encounters: 03/27/24 76.6 kg (168 lb 12.8 oz) 03/17/24 81.6 kg (180 lb) 02/26/24 79.4 kg (175 lb) I/O last 2 completed shifts: In: 835 [P.O.:835] Out: 750 [Urine:750] FB +85ml for 24hrs; -1703ml for stay Physical Exam HENT: Head: Normocephalic and atraumatic. Mouth/Throat: Mouth: Mucous membranes are moist. Eyes: Extraocular Movements: Extraocular movements intact. Cardiovascular: Rate and Rhythm: Normal rate. Heart sounds: No murmur heard. Comments: Mech click Pulmonary: Effort: Pulmonary effort is normal. Breath sounds: Normal breath sounds. Comments: On RA Abdominal: General: Abdomen is flat. Palpations: Abdomen is soft. Musculoskeletal: General: Normal range of motion. Cervical back: Normal range of motion and neck supple. Right lower leg: No edema. Left lower leg: No edema. Skin: General: Skin is warm and dry. Comments: Sternal incision steri strips CARLA Neurological: General: No focal deficit present. Mental Status: He is alert. Access: peripheral IV Recent Labs Lab Units 03/29/24 0540 03/28/24 0630 03/27/24 1423 WBC K/cumm 11.8* 11.8* 10.5* HEMOGLOBIN g/dL 8.6* 8.1* 8.1* HEMATOCRIT % 26.1* 24.4* 23.2* PLATELETS K/cumm 192 169 137* Recent Labs Lab Units 03/29/24 0540 03/28/24 0630 03/27/24 1423 SODIUM mmol/L 137 137 139 POTASSIUM PLASMA mmol/L 3.3 3.4 3.6 CHLORIDE mmol/L 100 99 100 CO2 mmol/L 25 27 26 BUN SERUM mg/dL 26* 25 25 CREATININE mg/dL 0.73* 0.75* 0.76* CALCIUM mg/dL 9.0 9.0 8.8 Recent Labs Lab Units 03/29/24 0848 03/29/24 0540 03/29/24 0028 03/28/24 2204 03/28/24 1353 03/28/24 0630 03/27/24 2137 PROTIME (PT) sec 18.1* -- -- -- -- 11.9 11.3 INR 1.66* -- -- -- -- 1.10 1.05 APTT sec -- 74* 70* >150* < > 56* 32 < > = values in this interval not displayed. Recent Labs Lab Units 03/23/24 0909 03/22/24 2147 03/22/24 1735 PH ART 7.36 7.38 7.37 PCO2 ART mmHg 43 40 41 PO2 ART mmHg 149* 161* 172* BASE EXC ART mmol/L -1 -1 -2 Drips: Heparin Imaging: Today's CXR shows right lower lobe collapse-consolidation. Assessment and Plan: 58 y.o. male 7 Days Post-Op s/p AVR with 23mm Leonidas valve + sternal plating Neuro: Transient left hand and leg tingling/numbness, now resolved. Has history of TIA prior to OR-recommend continue therapeutic anticoagulation which he is on. Has followed with neurology regardingthis CVS: Afib postop, has maintained NSR. Continue Amio 400mg daily, diltiazem 240mg, Losartan, Metoprolol. Wires out. INR 1.6, pharmacy dosing Warfarin, will transition to therapeutic Lovenox in preparation for discharge today Pulm: on RA, lasix daily. IS, OOB, pulm toilet GI: Tolerating diet Renal: renal function WNL ID: Completed course of prophylactic Abx D/L/T: PIV Prophylaxis: Transition to Lovenox Dispo: Likely home with HHRN and this afternoon, will need INR management Christo Cota NP Cardiothoracic Surgery [facility] Cosigned by Ernie Baldwin MD at 04/03/2024 3:03 PM CDT * Nena Ray COTA - 03/29/2024 10:04 AM CDT Occupational Therapy NOTE / SESSION TYPE: DAILY PROGRESS / TREATMENT Patient's Name: Stephna Madden Age / Sex: 58 y.o. / [id number] 1965 Date of service: 03/29/24 TIME IN: 1003 TIME OUT: 1020 Patient Active Problem List Diagnosis Tobacco dependence Nonrheumatic aortic valve stenosis Supraventricular tachycardia (HCC) Lipid screening Aortic valve stenosis Aortic stenosis, severe Past Medical History: Diagnosis Date Arthritis Atrial fibrillation (CMS/HCC) (HCC) Depression H/O ETOH abuse went to rehab for 3 months Heart murmur Hypertension Nonrheumatic aortic (valve) stenosis Paroxysmal SVT (supraventricular tachycardia) (HCC) Seizures (HCC) 1 x 3-4 years ago d/t ETHO Sleep apnea uses cpap SOB (shortness of breath) end of day chest feels tight and uncomfortable TIA (transient ischemic attack) hosp 03/08/2024 - 03/10/2024 Past Surgical History: Procedure Laterality Date CARDIAC CATHETERIZATION 02/23/2024 COLONOSCOPY OTHER SURGICAL HISTORY JAVIER TYMPANOSTOMY TUBE PLACEMENT Precautions (including weight-bearing): Fall risk, Bed / chair alarm, Sternal precautions, and Cardiac precautions Subjective: Pt says I'm in pain now Therapy Pain: Pre-therapy pain level: 8 /10 Pain location: chest Pain Intervention(s): Pain medication administered prior to session Post-therapy pain level: 8 /10 Pain scale reference: 0-10 SCALE Objective: Appearance: Presentation upon OT arrival: Patient Sitting at edge of bed Presentation upon OT departure: Patient Sitting in bedside recliner Bed / Chair alarm in place and activated upon OT departure: None Observed Call light within arms reach of patient at end of session: Yes Completed patient handoff and notified COURTESY DRIVER / RN, name: Denilson, of patient's location and functional status upon completion of session VITAL SIGNS: Heart rate at rest: 81 BPM Heart rate with activity: 84 BPM Cognitive / Perceptual: A&O x4 Mobility / Transfers: Bed Mobility: pt with good static balance while sitting EOB. Transfer(s): sit to/from stand at EOB independent. Stand pivot from bed to recliner SPV for safety. Living Skills / Other Activities: UE THERAPEUTIC EXERCISES: EXERCISE TYPE: CHEST MOBILIZATION EXERCISE(S) COMPLETED WITH NUMBER OF REPETITIONS: CHEST MOBILIZATION- JUMPING JACKS 10, CHEST MOBILIZATION- STRAIGHT ARMS OUT IN FRONT 10, CHEST MOBILIZATION- ELBOW CIRCLES 10, and CHEST MOBILIZATION- SHOULDER SHRUGS 10 NUMBER OF SETS: 1 ASSIST LEVEL: min verbal cues LOCATION OF COMPLETION: standing at bedside TOLERANCE: pt tolerated well without complaints of pain. Caregiver Present: Yes: Education & Training Provided: Role of OT, OT plan of care, UE home exercise program, and The following handouts were provided chest mob Assessment: Activity tolerance / response to OT session: GOOD PARTICIPATION, GOOD MOTIVATION, and RECEPTIVE TO EDUCATION / TRAINING Progress towards goals: Please refer to care plan from this date for progress towards individual goals Plan: Therapy Plan: Rehab Potential (Prognosis): good OT Recommendations This Date: OT RECOMMENDATIONS: OT Recommendation: Home with 24 hour supervision, Home Health OT Flow sheet updated and OT Consultation in Regards to Change in Discharge Recommendations: YES /NO: No Additional recommendation comments: Frequency of therapy:OT Frequency during current admission: 3-5x/wk If this is the last note, consider this the discharge summary BONNIE Senior 03/29/24 Cosigned by Mylene Patel OT at 03/29/2024 2:53 PM CDT * Nena Ray COTA - 03/28/2024 11:37 AM CDT Occupational Therapy NOTE / SESSION TYPE: DAILY PROGRESS / TREATMENT Patient's Name: Stephan Madden Age / Sex: 58 y.o. / male Room: [place] [id number] : 1965 Date of service: 03/28/24 TIME IN: 1137 TIME OUT: 1153 Patient Active Problem List Diagnosis Tobacco dependence Nonrheumatic aortic valve stenosis Supraventricular tachycardia (HCC) Lipid screening Aortic valve stenosis Aortic stenosis, severe Past Medical History: Diagnosis Date Arthritis Atrial fibrillation (CMS/HCC) (HCC) Depression H/O ETOH abuse went to rehab for 3 months Heart murmur Hypertension Nonrheumatic aortic (valve) stenosis Paroxysmal SVT (supraventricular tachycardia) (HCC) Seizures (HCC) 1 x 3-4 years ago d/t ETHO Sleep apnea uses cpap SOB (shortness of breath) end of day chest feels tight and uncomfortable TIA (transient ischemic attack) hosp 03/08/2024 - 03/10/2024 Past Surgical History: Procedure Laterality Date CARDIAC CATHETERIZATION 02/23/2024 COLONOSCOPY OTHER SURGICAL HISTORY JAVIER TYMPANOSTOMY TUBE PLACEMENT Precautions (including weight-bearing): Fall risk, Bed / chair alarm, Sternal precautions, and Cardiac precautions Subjective: Pt says I was thinking about taking a walk . Therapy Pain: Pre-therapy pain level: 3 /10 Pain location: chest Pain Intervention(s): Patient denied need for pain medication Post-therapy pain level: 3 /10 Pain scale reference: 0-10 SCALE Objective: Appearance: Presentation upon OT arrival: Patient Sitting at edge of bed Presentation upon OT departure: Patient Sitting at edge of bed Bed / Chair alarm in place and activated upon OT departure: None Observed Call light within arms reach of patient at end of session: Yes Completed patient handoff and notified COURTESY DRIVER / RN, name: Denilson, of patient's location and functional status upon completion of session Cognitive / Perceptual: A&O x4 Mobility / Transfers: Bed Mobility: pt with good static sitting balance while sitting EOB. Transfer(s): sit to/from stand at EOB independent. Pt with functional ambulation around room independent without device. TOILET TRANSFER LOCATION: STANDARD TOILET OVERALL ASSIST LEVEL: N/A - Independent DEVICE: NO DEVICE ADDITIONAL DOCUMENTATION: N/A Living Skills / Other Activities: Toileting Patient completed toileting of clothing management pre-toileting and clothing management post-toileting while sitting on standard toilet and standing at standard toilet with overall [place]. Patient required assistance for N/A - Independent. UE dressing: Patient completed upper body dressing of Hospital gown as robe while Standing at bedside with overall Supervision assistance. Patient required assistance for verbal cue(s). Footwear: Patient completed footwear of Slip-on shoe(s) while Sitting on EOB with overall [place]. Patient required assistance for N/A - Independent Grooming: Patient completed grooming of washing face, brushing teeth, washing hands, and combing hair while Standing at sink ~3 minutes with overall [place]. Patient required assistance for N/A - Independent Caregiver Present: Yes: Education & Training Provided: Role of OT, OT plan of care, ADL training, and Functional transfer training Assessment: Activity tolerance / response to OT session: GOOD PARTICIPATION, GOOD MOTIVATION, and RECEPTIVE TO EDUCATION / TRAINING Progress towards goals: Please refer to care plan from this date for progress towards individual goals Plan: Therapy Plan: Rehab Potential (Prognosis): fair OT Recommendations This Date: OT RECOMMENDATIONS: OT Recommendation: Home with 24 hour supervision, Home Health OT Flow sheet updated and OT Consultation in Regards to Change in Discharge Recommendations: YES /NO: No Additional recommendation comments: Frequency of therapy:OT Frequency during current admission: 3-5x/wk If this is the last note, consider this the discharge summary BONNIE Senior 03/28/24 Cosigned by Mylene Patel OT at 03/28/2024 2:22 PM CDT * Christo Cota NP - 03/28/2024 10:33 AM CDT Cardiothoracic Surgery Progress Note Stephan Rosales [place] 1965 Hospital DAY#6 6 Days Post-Op s/p: Procedures: * REPLACEMENT AORTIC VALVE, LAMBERTO Subjective: Patient resting on side of bed on room air. Denies significant pain or SOB. Just walked2 laps and did stairs with PT. HDS OBJECTIVE: Vitals: Temp: [36.6 ??C (97.8 ??F)-37.6 ??C (99.7 ??F)] 36.6 ??C (97.9 ??F) Pulse: [72-80] 80 BP: (99-130)/(40-62) 122/46 Resp: [15-26] 18 SpO2: [93 %-100 %] 95 % FiO2 (%): [21 %] 21 % Wt Readings from Last 3 Encounters: 03/27/24 76.6 kg (168 lb 12.8 oz) 03/17/24 81.6 kg (180 lb) 02/26/24 79.4 kg (175 lb) I/O last 2 completed shifts: In: 837.5 [P.O.:450; I.V.:387.5] Out: 1175 [Urine:1175] FB -337ml for 24hrs; -1788ml for stay Physical Exam HENT: Head: Normocephalic and atraumatic. Mouth/Throat: Mouth: Mucous membranes are moist. Eyes: Extraocular Movements: Extraocular movements intact. Cardiovascular: Rate and Rhythm: Normal rate. Heart sounds: No murmur heard. [facility]: Effort: Pulmonary effort is normal. Breath sounds: Normal breath sounds. Comments: On RA Abdominal: General: Abdomen is flat. Palpations: Abdomen is soft. Musculoskeletal: General: Normal range of motion. Cervical back: Normal range of motion and neck supple. Right lower leg: No edema. Left lower leg: No edema. Skin: General: Skin is warm and dry. Comments: Sternal incision covered dry Neurological: General: No focal deficit present. Mental Status: He is alert. Access: central line and peripheral IV Recent Labs Lab Units 03/28/24 0603/27/24 1423 03/27/24 0213 WBC K/cumm 11.8* 10.5* 10.3* HEMOGLOBIN g/dL 8.1* 8.1* 7.8* HEMATOCRIT % 24.4* 23.2* 22.6* PLATELETS K/cumm 169 137* 115* Recent Labs Lab Units 03/28/24 0603/27/24 1423 03/27/24 0213 SODIUM mmol/L 137 139 137 POTASSIUM PLASMA mmol/L 3.4 3.6 3.3 CHLORIDE mmol/L 99 100 99 CO2 mmol/L 27 26 26 BUN SERUM mg/dL 25 25 25 CREATININE mg/dL 0.75* 0.76* 0.77* CALCIUM mg/dL 9.0 8.8 8.7 Recent Labs Lab Units 03/28/24 0630 03/27/24 2137 03/27/24 1423 03/27/24 0649 PROTIME (PT) sec 11.9 11.3 -- 11.8 INR 1.10 1.05 -- 1.09 APTT sec 56* 32 38 44* Recent Labs Lab Units 03/23/24 0909 03/22/24 2147 03/22/24 1735 PH ART 7.36 7.38 7.37 PCO2 ART mmHg 43 40 41 PO2 ART mmHg 149* 161* 172* BASE EXC ART mmol/L -1 -1 -2 Drips: Heparin Imaging: Today's CXR shows right lower lobe collapse-consolidation. Assessment and Plan: 58 y.o. male 6 Days Post-Op s/p AVR with 23mm Leonidas valve + sternal plating CVS: Afib postop, has maintained NSR. Continue Amio 400mg daily, diltiazem 240mg, Losartan, Metoprolol. Wires out. INR 1.1, pharmacy dosing Warfarin, continue Heparin for now Pulm: on RA, change Lasix to daily GI: Tolerating diet Renal: renal function WNL replete K ID: Completed course of prophylactic Abx D/L/T: D/c CVL, start PIV Prophylaxis: on therapeutic heparin Dispo: Likely home with HHRN and next few days. Will need INR monitoring. Consider d/c'ing with Lovenox bridge Christo Cota NP Cardiothoracic Surgery [facility] Cosigned by Ernie Baldwin MD at 04/03/2024 3:03 PM CDT * Angela Figueredo PTA - 03/28/2024 9:24 AM CDT Physical Therapy PT PROGRESS NOTE PATIENT'S NAME:Stephan Madden :1965 AGE:58 y.o. ROOM:[place] [address] Past Medical History: Diagnosis Date Arthritis Atrial fibrillation (CMS/HCC) (HCC) Depression H/O ETOH abuse went to rehab for 3 months Heart murmur Hypertension Nonrheumatic aortic (valve) stenosis Paroxysmal SVT (supraventricular tachycardia) (HCC) Seizures (HCC) 1 x 3-4 years ago d/t ETHO Sleep apnea uses cpap SOB (shortness of breath) end of day chest feels tight and uncomfortable TIA (transient ischemic attack) hosp 03/08/2024 - 03/10/2024 Past Surgical History: Procedure Laterality Date CARDIAC CATHETERIZATION 02/23/2024 COLONOSCOPY OTHER SURGICAL HISTORY JAVIER TYMPANOSTOMY TUBE PLACEMENT Patient Active Problem List Diagnosis Tobacco dependence Nonrheumatic aortic valve stenosis Supraventricular tachycardia (HCC) Lipid screening Aortic valve stenosis Aortic stenosis, severe TIME IN: 922 TIME OUT: 950 SUBJECTIVE I think I'm doing better. Patient agreeable to therapy. MENTAL STATUS/ORIENTATION: Alert and oriented x4 PAIN: Pre-therapy pain level: it's sore Pain location: chest - surgical site Pain intervention: mobility performed Post-therapy pain level/response to intervention: no complaints OBJECTIVE PRECAUTIONS: fall and cardiac / sternal precautions APPEARANCE/POSTURE: seated EOB, using urinal, I.V. intact, cardiac cath lab manager intact, call light in reach, bed alarm refused. VITAL SIGNS: Resting BP: -- Post-activity BP: -- Resting heart rate: 83 Post-activity heart rate: 89 Resting O2 sat: -- Post-activity O2 sat: 97 MOBILITY DOCUMENTATION: Bed Mobility/Transfers: supine <> sit using log rolling method, minor use of hands Sit <> stand from EOB without use of hands, good balance, steady upon standing. Gait: 1000' with w/w and Mod I. Ascends / descends single curb step x 4 trials with intermittent touch of sink top and SBA. TREATMENT: Bed mobility, ambulation APPEARANCE/POSTURE (end of session): seated EOB, PIPE SMOKER MACHINE OPERATOR (Christo) present, patient spouse arrives, all lines intact as at session start. Call light in reach EDUCATION:stair training, bed mobility , functional transfer training, gait training , and post-op precautions RESPONSE TO EDUCATION: demonstrated understanding ASSESSMENT Activity tolerance/response to P.T.: GOOD Patient is moving well with no changes in O2 saturations. Barriers to learning: Physical Barriers to discharge: Lower extremity weakness and Stairs at home Patient continues progressing toward previously set goals which remain appropriate at this time. PLAN PT Discharge Recommendations this date: PT Recommendation/Plan: Home with 24 hour supervision, Home Health PT Patient at high risk for: Falls, Readmission, Injury due to decreased ability to care for self, Injury due to reduced functional status, Injury due to balance deficits, Injury at home as patient has not returned to prior level of function, Developing secondary complications: poor health management,Prolonged dependence for self care tasks, Difficulty maintaining orthopedic restrictions, Improper u se of DME PT Frequency during current admission: 3-5x/wk CARE PLAN Multi-Disciplinary Problems (from Physical Therapy) Active Problems Problem: PT Misc Start Date: 03/24/24 Goal Start Date Expected End Date End Date Patient to perform bed mobility with independence. 03/24/24 03/31/24 -- progressing Goal Start Date Expected End Date End Date Patient to perform functional transfers with most appropriate device MOD I. 03/24/24 03/31/24 -- progressing Goal Start Date Expected End Date End Date Patient to ambulate 250 feet with most appropriate device MOD I. 03/24/24 03/31/24 -- progressing Goal Start Date Expected End Date End Date Patient to navigate a flight of steps with handrail as needed MOD I. 03/24/24 03/31/24 -- progressing Goal Start Date Expected End Date End Date Patient to verbalize and demonstrate post-op precautions throughout mobility independently including correct use of incentive spirometer. 03/24/24 03/31/24 -- Progressing - IS not tested this date If this is the last note, please consider this the discharge summary. Cosigned by Odin Cartagena, PT at 03/28/2024 12:58 PM CDT * Tam Arias NP - 03/27/2024 12:14 PM CDTAssociated Order(s): Critical Care Post-Procedure Diagnose(s): Aortic stenosis, severe Images from the original note were not included. Critical Care Medicine Daily Progress Team: Community AM Subjective Patient is a 58 y.o. y/o male admitted on 03/22/2024 5:30 AM with the following indication(s) for ICU care s/p Mechanical AVR Interval History: - Increase warfarin dose per pharmacy recs - TTF HPI 58 yo male with worsening SOB and fatigue with exertion x1 year. Admitted to ICU s/p planned AVR with Dr. Baldwin. Uncomplicated OR course, AVR with 23mm Morro, easy airway, received 750ml cell saver, 2100ml crystalloid, was noted to be oozy at the end of the case. Upon arrival to ICU was off pressors, had 140ml CT output, and plt 85 for which he received 1u plts. PMH: aortic stenosis, sleep apnea (CPAP compliant), paroxysmal atrial fibrillation, SVT, current smoker, and alcohol abuse with history of sz and withdrawal (per chart review has been sober x1 year),anx/depression, HTN/HLD, HFpEF EF 60-70%, T[facility]/ 2 prbc, 1 ffp, 1 plt, 2 cryo Scheduled Medications: acetaminophen, 1,000 mg, oral, Q6H CHAVO albuterol, 2.5 mg, nebulization, Q6H CHAVO (RT) amiodarone, 400 mg, oral, Daily aspirin, 81 mg, oral, Daily buPROPion SR, 150 mg, oral, BID dilTIAZem CD/XR/XT, 240 mg, oral, Daily with dinner famotidine, 20 mg, oral, BID furosemide, 40 mg, intravenous, Daily insulin lispro, 0-10 Units, subcutaneous, 5x daily (with meals, nightly, & 0200) losartan, 25 mg, oral, Daily methocarbamoL, 500 mg, oral, TID metoprolol tartrate, 25 mg, oral, BID polyethylene glycol, 17 g, oral, Daily QUEtiapine, 50 mg, oral, Nightly rOPINIRole, 4 mg, oral, BID rosuvastatin, 10 mg, oral, Nightly senna-docusate, 2 tablet, oral, BID sodium chloride 0.9%, 0.5-20 mL, intra-catheter, Q8H CHAVO warfarin, 5 mg, oral, Daily-1800 Continuous Medications: clevidipine, 0-32 mg/hr, Last Rate: Stopped (03/26/24 1200) heparin, 0-33 Units/kg/hr, Last Rate: 24 Units/kg/hr (03/27/24 1033) sodium chloride 0.9%, 10 mL/hr sodium chloride 0.9%, 20 mL/hr, Last Rate: 20 mL/hr (03/24/24 1331) Medications Discontinued During This Encounter Medication Reason vancomycin (VANCOCIN) solution Patient Discharge sodium chloride 0.9% irrigation Patient Discharge ceFAZolin (ANCEF) injection Patient Discharge ceFAZolin (ANCEF) 1 gram/10 mL in sterile water (premix) 2,000 mg Patient Transfer vancomycin 1500 mg/250 mL in sodium chloride 0.9% (premix) 1,500 mg Patient Transfer sodium chloride 0.9% flush 0.5-20 mL Patient Transfer Carrier Fluids for Secondary Infusion - 0.9% Sodium Chloride Patient Transfer vancomycin 1,000 mg/200 mL in dextrose 5% (premix) 1,000 mg norepinephrine in dextrose 5% (LEVOPHED) 8,000 mcg/250 mL (32 mcg/mL) infusion (premix) oxyCODONE (ROXICODONE) tablet 5 mg Lactated Ringer's (LR) infusion acetaminophen (TYLENOL) 32 mg/mL oral liquid 1,000 mg acetaminophen (TYLENOL) suppository 650 mg aspirin chewable tablet 81 mg propofoL (DIPRIVAN) 10 mg/mL IV fentaNYL (SUBLIMAZE) preservative free injection 50 mcg insulin regular in 0.9% sodium chloride (MYXREDLIN) 100 unit/100 mL (1 unit/mL) infusion (premix) dextrose (D10W) 10% bolus 1-500 mL metoprolol tartrate (LOPRESSOR) immediate release tablet 12.5 mg clevidipine (CLEVIPREX) 25 mg/50 mL (0.5 mg/mL) infusion (premix) dilTIAZem (CARDIZEM) tablet 120 mg Other metoprolol tartrate (LOPRESSOR) immediate release tablet 12.5 mg dilTIAZem CD/XR/XT (CARDIZEM CD,DILACOR XR) 24 hour capsule 120 mg famotidine (PEPCID) injection 20 mg furosemide (LASIX) 10 mg/mL injection 40 mg metoprolol tartrate (LOPRESSOR) immediate release tablet 25 mg sodium chloride 0.9% solution dexmedeTOMIDine in 0.9% sodium chloride (PRECEDEX) 400 mcg/100 mL (4 mcg/mL) infusion (premix) norepinephrine in dextrose 5% (LEVOPHED) 8,000 mcg/250 mL (32 mcg/mL) infusion (premix) vasopressin in 5% dextrose (VASOSTRICT) 20 unit/100 mL (0.2 unit/mL) infusion EPINEPHrine in 0.9% sodium chloride 2,000 mcg/100 mL (20 mcg/mL) infusion (premix) lidocaine (LIDODERM) 5 % patch 2 patch amiodarone in dextrose (NEXTERONE) 360 mg/200 mL (1.8 mg/mL) infusion (premix) furosemide (LASIX) 10 mg/mL injection 40 mg furosemide (LASIX) 10 mg/mL injection 40 mg metoprolol tartrate (LOPRESSOR) immediate release split tablet 37.5 mg warfarin (COUMADIN) tablet 2 mg PRN Medications: sodium chloride 0.9% dextrose OR dextrose glucagon hydrALAZINE magnesium sulfate oxyCODONE potassium chloride prochlorperazine sodium chloride 0.9% sodium chloride 0.9% Objective Vitals: Most Recent: Vitals: 03/27/24 1200 BP: 99/61 Pulse: 74 Resp: 15 Temp: 36.6 ??C (97.8 ??F) SpO2: 100% 24hr Min/Max: Temp Min: 36.6 ??C (97.8 ??F) Max: 37.3 ??C (99.2 ??F) Pulse Min: 65 Max: 89 BP Min: 79/48 Max: 176/77 Resp Min: 10 Max: 35 SpO2 Min: 77 % Max: 100 % LDA: Introducer 03/22/24 Right Internal jugular (Active) Placement Date/Time: 03/22/24 (c) 0858 Hand Hygiene Performed: Yes Orientation: Right Location: Internal jugular Description (optional): multi-lumen access catheter (MAC) Number of days: 0 PA Catheter 8 Fr. Right Other (Comment) (Active) Placement Date/Time: 03/22/24 (c) 0858 Site Prep: Chlorhexidine Sheath Size: 8 Fr. Line Orientation: Right Sheath Insertion Site: Other (Comment) Number of days: 0 Arterial Line 03/22/24 Left Radial (Active) Placement Date/Time: 03/22/24 (c) 0855 Size: 20 G Orientation: Left Location: Radial Securement Method: Taped;Transparent dressing Number of days: 0 ETT ETT - single 8 mm (Active) Placement Date/Time: 03/22/24 (c) 0858 Mask Ventilation: Vent by mask Technique: Direct laryngoscopy ETT Type: ETT - single Single Lumen Tube Size: 8 mm Cuffed: Yes Laryngoscope: Crystal Blade Size: 4 Location: Oral Grade View: Full view o... Number of days: 0 Urethral Catheter Double-lumen;Straight-tip (Active) Placement Date/Time: 03/22/24 0816 Inserted by: Venkat Yeager RN Catheter Type: (c) Double-lumen;Straight-tip Tube Size (Fr.): 16 Fr Catheter Balloon Size: 10 mL Urine Returned: Yes Number of days: 0 Y Chest Tube A and B A Mediastinal 28 Fr. B Right Pleural 24 Fr. (Active) Placement Date/Time: 03/22/24 1043 Inserted by: Dr. Baldwin Tube Number A: A Chest Tube Location A: Mediastinal Size (Fr.) A: 28 Fr. Tube Number B: B Chest Tube Orientation B: Right Chest Tube Location B: Pleural Size (Fr.) B: (c) 24 Fr. Chest T... Number of days: 0 Vent settings: Hemodynamic parameters for last 24 hours: I/O: Date 03/26/24 07 - 03/27/24 0659 03/27/24 07 - 03/28/24 0659 Shift 5903-6080 6933-5557 24 Hour Total 5997-5425 5426-1597 24 Hour Total INTAKE P.O. 600 240 840 300 300 I.V.(mL/kg) 134(1.7) 147(1.9) 281(3.7) 387.5(5.1) 387.5(5.1) IV Piggyback 50 50 Shift Total(mL/kg) 734(9.4) 437(5.7) 1171(15.3) 687.5(9) 687.5(9) OUTPUT Urine(mL/kg/hr) 1050(1.1) 2300(2.5) 3350(1.8) 900 900 Shift Total(mL/kg) 1050(13.5) 2300(30) 3350(43.8) 900(11.8) 900(11.8) NET -316 -1863.1 -2179.1 -212.5 -212.5 Weight (kg) 77.9 76.6 76.6 76.6 76.6 76.6 Physical Exam: Neuro: Aox 4, no focal deficits HEENT: Head NC/AT, face symmetrical, PEERL CV: atrial fibrillation, S1 and S2 without M/G/R Pulm: Nasal cannula, LCTA. GI: Abdomen Soft/ND, normoactive bowel sounds : Reyes to gravity Skin: Warm, dry, good turgor Extremities: No edema, PPP Wounds: sternotomy dressing CDI Access: Rt IJ MAC, PIV Wound 03/22/24 Incision Chest Mid-line (Active) Date First Assessed/Time First Assessed: 03/22/24 1157 Primary Wound Type: Incision Location: ChestLocation Orientation: Mid-line Assessments 03/22/2024 11:57 AM 03/27/2024 8:00 AM Dressing Status Clean/Dry/Intact Clean/Dry/Intact Site Assessment -- Unable to assess Shape & Pattern Linear -- Kasey-wound Assessment -- Unable to assess Dressing Silver dressing Silver foam No associated orders. Wound 03/22/24 Incision Chest Medial (Active) Date First Assessed/Time First Assessed: 03/22/24 1154 Present on Original Admission: No Primary Wound Type: Incision Location: (c) Chest Location Orientation: Medial Assessments 03/22/2024 12:20 PM 03/27/2024 8:00 AM Dressing Status Clean/Dry/Intact Clean/Dry/Intact Site Assessment Clean Unable to assess Shape & Pattern Other (Comment) -- Dressing [place] dressing -- No associated orders. Lab/Radiology/Diagnostic Review: Chem/LFT Lab History Latest Ref Rng & Units 03/24/2024 03/25/2024 03/26/2024 03/27/2024 02:13 Labs-Chem/LFT Sodium 135 - 145 mmol/L 141 143 139 137 Creatinine 0.80 - 1.30 mg/dL 0.71 0.71 0.80 0.77 CrCl- Actual Body Weight (Cockcroft-Gault) 128 128 113.6 116 Details More abnormal values are hidden. Newest values shown. Go to activity for more data. More values are hidden. Newest values shown. Go to activity for more data. Hematology Lab History Latest Ref Rng & Units 03/24/2024 03/25/2024 03/26/2024 03/27/2024 02:13 Labs - Hematology WBC 3.8 - 9.9 K/cumm 11.6 11.3 12.9 10.3 Total Hb, POC 13.0 - 17.5 g/dL 6.9 8.0 8.8 7.8 Hct 38.9 - 50.3 % 19.6 22.8 25.2 22.6 Plt 150 - 400 K/cumm 54 68 138 115 Neutrophil abs 1.5 - 6.5 K/cumm 9.2 Lymphocytes, abs 0.8 - 3.3 K/cumm 2.4 Details More abnormal values are hidden. Newest values shown. Go to activity for more data. I have personally reviewed the telemetry strips over the past 12h. I have personally reviewed the above labs and microbiology results. I have personally reviewed the radiology exams in the past 24h. Assessment and plan: NEURO: # Acute pain - Tylenol, Lidoderm, Oxycodone and Fentanyl prn for pain. - Robaxin as adjunct to pain management - Continue to closely monitor pain level and modify the regimen appropriately. # TIA, history of - 03/09: pt with left arm and leg numbness, HCT without acute process, resolution of symptoms - home regimen: asa and statin # anxiety, chronic # depression, chronic - home regimen: seroquel, no recent refill of bupropion per chart review - resume when appropriate # restless leg syndrome, chronic # insomnia, chronic - home regimen: lunesta, ropinirole - hold home regimen in the acute setting - resume ropinirole when appropriate # alcohol use disorder, history of - per chart review, pt with prior hx of alcohol use, with history of withdrawal and seizure x1 - per pt report, has been sober x1 year - continue to monitor CV: # aortic stenosis, chronic - CTS Primary - 03/22: s/p AVR with Dr. Baldwin - Pre-operative and postoperative JAVIER w/ EF 60% - Off vasopressors - Epicardial wires in place, pacer VVI backup - ASA daily - resume statin per CTS - Heparin gtt started 03/25 #Atrial fibrillation, new onset # paroxysmal SVT, chronic - Amiodarone bolus and start 24 hrs of drip - home regimen: diltiazem, metoprolol, warfarin - resume regimen per CTS - optimize electrolytes # HTN, chronic # HLD, chronic - home regimen: rosuvastatin, metoprolol - resume per CTS - goal normotension postoperatively PULM: #Right sided effusion, presumed hemothorax - Improved after affressice stripping of CT-s - CTS aware - Continue to monitor - CT discontinued 03/24 # NICOLE, chronic - compliant with CPAP - CPAP at night once extubated - NICOLE precautions # current smoker - pulm hygiene as above - offer smoking cessation education when appropriate GI: Diet: Cardiac diet Bowel regimen: docusate, senna PUD PPx: famotidine ENDO: # Glycemic Control - Insulin gtt DC-d and SSI started - continue to monitor BG RENAL: - Cr 0.74, UOP adequate - Diuresis per CTS - continue to follow creatinine, BUN, urine output, electrolytes - Electrolyte repletion for goal K > 4, Mg > 2 #Hypophosphatemia - Scheduled Phos repletion - Check level with PM labs HEME: # ABLA # thrombocytopenia - s/p PRBCx2, FFPx1, pltx1, 2 cryo post-op - Monitor CT output - ongoing reassessment in the immediate post-operative period - Continue to monitor on CBC, transfuse as clinically indicated - Hgb 9.3>9.5, Plt 101>96 ID: # Leukocytosis - Likely reactive in the setting of cardiac surgery - Continue to follow fever curve and WBC - Complete perioperative ABX - WBC 12.8, afwebrile INTENSIVE CARE UNIT STANDARDS OF CARE: DVT ppx: Lovenox ppx starting tonight, SCDs Access: left radial arterial line, PIVs Goals of care: full code Assessment and plan has been reviewed with attending, Dr. Nguyen Arias NP Critical Care Performed by: Tam Arias NP Authorized by: Tam Arias NP CRITICAL CARE: Team: FLAVIO Shift: AM Level of Billing: Subsequent Hospital Visit Level 3 My time spent with this patient was 20 minutes: Critical Provider Statement: I have seen and examined the patient on this day of service. I have reviewed and confirmed the history, physical exam, laboratory, and radiographic data as documented in the ICU note. I have reviewed and discussed my treatment plan with the patient's team and other medical/bridal stylist sales consultant staff. This time was in addition to and separate from care provided by other practitioners on this day of service. Cosigned by Cr Cedillo DO at 03/27/2024 6:00 PM CDT * Marlo Rdz MD - 03/27/2024 7:42 AM CDT Cardiothoracic Surgery Progress Note Stephan Madden 1965 Hospital DAY#5 5 Days Post-Op s/p: Procedures: * REPLACEMENT AORTIC VALVE, LAMBERTO Subjective: Cleviprex weaned, started on losartan, BP lower ON, improved this AM, restarted home requip, reports feeling better, INR 1.09 on 2 mg warfarin OBJECTIVE: Vitals: Temp: [37.1 ??C (98.8 ??F)-37.3 ??C (99.2 ??F)] 37.1 ??C (98.8 ??F) Pulse: [65-89] 65 BP: (79-176)/(26-100) 109/40 Resp: [11-35] 24 SpO2: [77 %-100 %] 97 % Wt Readings from Last 3 Encounters: 03/27/24 76.6 kg (168 lb 12.8 oz) 03/17/24 81.6 kg (180 lb) 02/26/24 79.4 kg (175 lb) I/O last 2 completed shifts: In: 1171 [P.O.:840; I.V.:281; IV Piggyback:50] Out: 3350 [Urine:3350] Physical Exam HENT: Head: Normocephalic and atraumatic. Mouth/Throat: Mouth: Mucous membranes are moist. Eyes: Extraocular Movements: Extraocular movements intact. Cardiovascular: Rate and Rhythm: Normal rate. Pulmonary: Comments: On RA Abdominal: General: Abdomen is flat. Palpations: Abdomen is soft. Musculoskeletal: General: Normal range of motion. Cervical back: Normal range of motion and neck supple. Skin: General: Skin is warm and dry. Neurological: General: No focal deficit present. Mental Status: He is alert. Access: central line and peripheral IV Recent Labs Lab Units 03/27/24 0213 03/26/24 1215 03/26/24 0430 WBC K/cumm 10.3* 12.9* 10.1* HEMOGLOBIN g/dL 7.8* 8.8* 7.9* HEMATOCRIT % 22.6* 25.2* 22.8* PLATELETS K/cumm 115* 138* 87* Recent Labs Lab Units 03/27/24 0213 03/26/24 1215 03/26/24 0430 SODIUM mmol/L 137 139 141 POTASSIUM PLASMA mmol/L 3.3 3.8 3.4 CHLORIDE mmol/L 99 100 102 CO2 mmol/L 26 27 30 BUN SERUM mg/dL 25 23 22 CREATININE mg/dL 0.77* 0.80 0.78* CALCIUM mg/dL 8.7 9.0 8.3* Recent Labs Lab Units 03/27/24 0649 03/27/24 0012 03/26/24 1732 03/25/24 1850 03/25/24 1221 03/22/24 2332 PROTIME (PT) sec 11.8 -- -- -- 11.9 15.4* INR 1.09 -- -- -- 1.10 1.42* APTT sec 44* 33 30 < > 26* -- < > = values in this interval not displayed. Recent Labs Lab Units 03/23/24 0909 03/22/24 2147 03/22/24 1735 PH ART 7.36 7.38 7.37 PCO2 ART mmHg 43 40 41 PO2 ART mmHg 149* 161* 172* BASE EXC ART mmol/L -1 -1 -2 Drips: Heparin Imaging: Today's CXR pending Assessment and Plan: 58 y.o. male 5 Days Post-Op s/p AVR with 23mm Morro valve + sternal plating CVS: Afib converted to sinus, on amio PO, home dose dilt of 240 mg/daily, decrease metop to 25, statin, heparin with warfarin dosing per pharmacy (INR 1.09), continue losartan Pulm: on RA, lasix today BID GI: Tolerating diet Renal: UOP adequate 3.3 net neg 1.4 L for hospital course, lasix 40 mg daily ID: Completed course of prophylactic Abx D/L/T: Central line, Prophylaxis: on therapeutic heparin Dispo: CTICU can transfer to floor Marlo Rdz MD Cardiothoracic Surgery [facility] * Tam Arias NP - 03/26/2024 10:03 AM CDTAssociated Order(s): Critical Care Post-Procedure Diagnose(s): Aortic stenosis, severe Images from the original note were not included. Critical Care Medicine Daily Progress Team: Community AM Subjective Patient is a 58 y.o. y/o male admitted on 03/22/2024 5:30 AM with the following indication(s) for ICU care s/p Mechanical AVR Interval History: - Losartan added - Wean off Clevidipine - Bridging to Warfarin therapy for mechanical valve - TTF once off clevidipine HPI 58 yo male with worsening SOB and fatigue with exertion x1 year. Admitted to ICU s/p planned AVR with Dr. Baldwin. Uncomplicated OR course, AVR with 23mm Morro, easy airway, received 750ml cell saver, 2100ml crystalloid, was noted to be oozy at the end of the case. Upon arrival to ICU was off pressors, had 140ml CT output, and plt 85 for which he received 1u plts. PMH: aortic stenosis, sleep apnea (CPAP compliant), paroxysmal atrial fibrillation, SVT, current smoker, and alcohol abuse with history of sz and withdrawal (per chart review has been sober x1 year),anx/depression, HTN/HLD, HFpEF EF 60-70%, TIA Hospital Course 03/22 [facility] AVR, NE/vaso/ epi/ 2 prbc, 1 ffp, 1 plt, 2 cryo Scheduled Medications: acetaminophen, 1,000 mg, oral, Q6H CHAVO albuterol, 2.5 mg, nebulization, Q6H CHAVO (RT) amiodarone, 400 mg, oral, Daily aspirin, 81 mg, oral, Daily buPROPion SR, 150 mg, oral, BID dilTIAZem CD/XR/XT, 240 mg, oral, Daily with dinner famotidine, 20 mg, oral, BID furosemide, 40 mg, intravenous, Q12H CHAVO insulin lispro, 0-10 Units, subcutaneous, 5x daily (with meals, nightly, & 0200) losartan, 25 mg, oral, Daily methocarbamoL, 500 mg, oral, TID metoprolol tartrate, 37.5 mg, oral, BID polyethylene glycol, 17 g, oral, Daily QUEtiapine, 50 mg, oral, Nightly rosuvastatin, 10 mg, oral, Nightly senna-docusate, 2 tablet, oral, BID sodium chloride 0.9%, 0.5-20 mL, intra-catheter, Q8H CHAVO warfarin, 2 mg, oral, Daily-1800 Continuous Medications: clevidipine, 0-32 mg/hr, Last Rate: 4 mg/hr (03/26/24 0648) heparin, 0-33 Units/kg/hr, Last Rate: 12 Units/kg/hr (03/26/24 0219) sodium chloride 0.9%, 10 mL/hr sodium chloride 0.9%, 20 mL/hr, Last Rate: 20 mL/hr (03/24/24 1331) Medications Discontinued During This Encounter Medication Reason vancomycin (VANCOCIN) solution Patient Discharge sodium chloride 0.9% irrigation Patient Discharge ceFAZolin (ANCEF) injection Patient Discharge ceFAZolin (ANCEF) 1 gram/10 mL in sterile water (premix) 2,000 mg Patient Transfer vancomycin 1500 mg/250 mL in sodium chloride 0.9% (premix) 1,500 mg Patient Transfer sodium chloride 0.9% flush 0.5-20 mL Patient Transfer Carrier Fluids for Secondary Infusion - 0.9% Sodium Chloride Patient Transfer vancomycin 1,000 mg/200 mL in dextrose 5% (premix) 1,000 mg norepinephrine in dextrose 5% (LEVOPHED) 8,000 mcg/250 mL (32 mcg/mL) infusion (premix) oxyCODONE (ROXICODONE) tablet 5 mg Lactated Ringer's (LR) infusion acetaminophen (TYLENOL) 32 mg/mL oral liquid 1,000 mg acetaminophen (TYLENOL) suppository 650 mg aspirin chewable tablet 81 mg propofoL (DIPRIVAN) 10 mg/mL IV fentaNYL (SUBLIMAZE) preservative free injection 50 mcg insulin regular in 0.9% sodium chloride (MYXREDLIN) 100 unit/100 mL (1 unit/mL) infusion (premix) dextrose (D10W) 10% bolus 1-500 mL metoprolol tartrate (LOPRESSOR) immediate release tablet 12.5 mg clevidipine (CLEVIPREX) 25 mg/50 mL (0.5 mg/mL) infusion (premix) dilTIAZem (CARDIZEM) tablet 120 mg Other metoprolol tartrate (LOPRESSOR) immediate release tablet 12.5 mg dilTIAZem CD/XR/XT (CARDIZEM CD,DILACOR XR) 24 hour capsule 120 mg famotidine (PEPCID) injection 20 mg furosemide (LASIX) 10 mg/mL injection 40 mg metoprolol tartrate (LOPRESSOR) immediate release tablet 25 mg sodium chloride 0.9% solution dexmedeTOMIDine in 0.9% sodium chloride (PRECEDEX) 400 mcg/100 mL (4 mcg/mL) infusion (premix) norepinephrine in dextrose 5% (LEVOPHED) 8,000 mcg/250 mL (32 mcg/mL) infusion (premix) vasopressin in 5% dextrose (VASOSTRICT) 20 unit/100 mL (0.2 unit/mL) infusion EPINEPHrine in 0.9% sodium chloride 2,000 mcg/100 mL (20 mcg/mL) infusion (premix) lidocaine (LIDODERM) 5 % patch 2 patch amiodarone in dextrose (NEXTERONE) 360 mg/200 mL (1.8 mg/mL) infusion (premix) furosemide (LASIX) 10 mg/mL injection 40 mg PRN Medications: sodium chloride 0.9% dextrose OR dextrose glucagon hydrALAZINE magnesium sulfate oxyCODONE potassium chloride prochlorperazine sodium chloride 0.9% sodium chloride 0.9% Objective Vitals: Most Recent: Vitals: 03/26/24 0900 BP: (!) 134/44 Pulse: 77 Resp: 27 Temp: SpO2: 99% 24hr Min/Max: Temp Min: 36.7 ??C (98.1 ??F) Max: 37.3 ??C (99.2 ??F) Pulse Min: 69 Max: 104 BP Min: 79/62 Max: 159/50 Resp Min: 12 Max: 41 SpO2 Min: 92 % Max: 100 % LDA: Introducer 03/22/24 Right Internal jugular (Active) Placement Date/Time: 03/22/24 (c) 0852 Hand Hygiene Performed: Yes Orientation: Right Location: Internal jugular Description (optional): multi-lumen access catheter (MAC) Number of days: 0 PA Catheter 8 Fr. Right Other (Comment) (Active) Placement Date/Time: 03/22/24 (c) 9099 Site Prep: Chlorhexidine Sheath Size: 8 Fr. Line Orientation: Right Sheath Insertion Site: Other (Comment) Number of days: 0 Arterial Line 03/22/24 Left Radial (Active) Placement Date/Time: 03/22/24 (c) 0855 Size: 20 G Orientation: Left Location: Radial Securement Method: Taped;Transparent dressing Number of days: 0 ETT ETT - single 8 mm (Active) Placement Date/Time: 03/22/24 (c) 0858 Mask Ventilation: Vent by mask Technique: Direct laryngoscopy ETT Type: ETT - single Single Lumen Tube Size: 8 mm Cuffed: Yes Laryngoscope: Crystal Blade Size: 4 Location: Oral Grade View: Full view o... Number of days: 0 Urethral Catheter Double-lumen;Straight-tip (Active) Placement Date/Time: 03/22/24 0816 Inserted by: Venkat Yeager RN Catheter Type: (c) Double-lumen;Straight-tip Tube Size (Fr.): 16 Fr Catheter Balloon Size: 10 mL Urine Returned: Yes Number of days: 0 Y Chest Tube A and B A Mediastinal 28 Fr. B Right Pleural 24 Fr. (Active) Placement Date/Time: 03/22/24 1043 Inserted by: Dr. Baldwin Tube Number A: A Chest Tube Location A: Mediastinal Size (Fr.) A: 28 Fr. Tube Number B: B Chest Tube Orientation B: Right Chest Tube Location B: Pleural Size (Fr.) B: (c) 24 Fr. Chest T... Number of days: 0 Vent settings: Hemodynamic parameters for last 24 hours: I/O: Date 03/25/24699 - 03/26/24 0659 03/26/24 07 - 03/27/24 0659 Shift 1486-0657 9626-7539 24 Hour Total 5446-4591 9135-8245 24 Hour Total INTAKE P.O. 120 120 I.V.(mL/kg) 854(11) 854(11) Shift Total(mL/kg) 854(11) 854(11) 120(1.5) 120(1.5) OUTPUT Urine(mL/kg/hr) 2700(2.9) 1550(1.7) 4250(2.3) Shift Total(mL/kg) 2700(34.7) 1550(19.9) 4250(54.6) [facility]1846 -0705 -3744 120 120 Weight (kg) 77.9 77.9 77.9 77.9 77.9 77.9 Physical Exam: Neuro: Aox 4, no focal deficits HEENT: Head NC/AT, face symmetrical, PEERL CV: atrial fibrillation, S1 and S2 without M/G/R Pulm: Nasal cannula, LCTA. GI: Abdomen Soft/ND, normoactive bowel sounds : Reyes to gravity Skin: Warm, dry, good turgor Extremities: No edema, PPP Wounds: sternotomy dressing CDI Access: Rt IJ MAC, PIV Wound 03/22/24 Incision Chest Mid-line (Active) Date First Assessed/Time First Assessed: 03/22/24 1157 Primary Wound Type: Incision Location: ChestLocation Orientation: Mid-line Assessments 03/22/2024 11:57 AM 03/26/2024 8:00 AM Dressing Status Clean/Dry/Intact Clean/Dry/Intact Site Assessment -- Unable to assess Shape & Pattern Linear -- Kasey-wound Assessment -- Unable to assess Dressing Silver dressing Silver dressing Closure -- Approximated;Steri-strips No associated orders. Wound 03/22/24 Incision Chest Medial (Active) Date First Assessed/Time First Assessed: 03/22/24 1154 Present on Original Admission: No Primary Wound Type: Incision Location: (c) Chest Location Orientation: Medial Assessments 03/22/2024 12:20 PM 03/26/2024 8:00 AM Dressing Status Clean/Dry/Intact Clean/Dry/Intact Site Assessment Clean Unable to assess Shape & Pattern Other (Comment) -- [place] dressing Silver dressing No associated orders. Lab/Radiology/Diagnostic Review: Chem/LFT Lab History Latest Ref Rng & Units 03/23/2024 03/24/2024 03/25/2024 03/26/2024 04:30 Labs-Chem/LFT Sodium 135 - 145 mmol/L 141 141 143 141 Creatinine 0.80 - 1.30 mg/dL 0.59 0.71 0.71 0.78 CrCl- Actual Body Weight (Cockcroft-Gault) 151.1 128 128 116.5 Details More abnormal values are hidden. Newest values shown. Go to activity for more data. More values are hidden. Newest values shown. Go to activity for more data. Hematology Lab History Latest Ref Rng & Units 03/23/2024 03/24/2024 03/25/2024 03/26/2024 04:30 Labs - Hematology WBC 3.8 - 9.9 K/cumm 9.9 11.6 11.3 10.1 Total Hb, POC 13.0 - 17.5 g/dL 7.1 6.9 8.0 7.9 Hct 38.9 - 50.3 % 20.0 19.6 22.8 22.8 Plt 150 - 400 K/cumm 57 54 68 87 Details More abnormal values are hidden. Newest values shown. Go to activity for more data. I have personally reviewed the telemetry strips over the past 12h. I have personally reviewed the above labs and microbiology results. I have personally reviewed the radiology exams in the past 24h. Assessment and plan: NEURO: # Acute pain - Tylenol, Lidoderm, Oxycodone and Fentanyl prn for pain. - Robaxin as adjunct to pain management - Continue to closely monitor pain level and modify the regimen appropriately. # TIA, history of - 03/09: pt with left arm and leg numbness, HCT without acute process, resolution of symptoms - home regimen: asa and statin # anxiety, chronic # depression, chronic - home regimen: seroquel, no recent refill of bupropion per chart review - resume when appropriate # restless leg syndrome, chronic # insomnia, chronic - home regimen: lunesta, ropinirole - hold home regimen in the acute setting - resume ropinirole when appropriate # alcohol use disorder, history of - per chart review, pt with prior hx of alcohol use, with history of withdrawal and seizure x1 - per pt report, has been sober x1 year - continue to monitor CV: # aortic stenosis, chronic - CTS Primary - 03/22: s/p AVR with Dr. Baldwin - Pre-operative and postoperative JAVIER w/ EF 60% - Off vasopressors - Epicardial wires in place, pacer VVI backup - PAC in place, noted on CXR - ASA daily - resume statin per CTS - Heparin gtt started 03/25 #Atrial fibrillation, new onset # paroxysmal SVT, chronic - Amiodarone bolus and start 24 hrs of drip - home regimen: diltiazem, metoprolol, warfarin - resume regimen per CTS - optimize electrolytes # HTN, chronic # HLD, chronic - home regimen: rosuvastatin, metoprolol - resume per CTS - goal normotension postoperatively PULM: #Right sided effusion, presumed hemothorax - Improved after affressice stripping of CT-s - CTS aware - Continue to monitor - CT discontinued 03/24 # NICOLE, chronic - compliant with CPAP - CPAP at night once extubated - NICOLE precautions # current smoker - pulm hygiene as above - offer smoking cessation education when appropriate GI: Diet: Cardiac diet Bowel regimen: docusate, senna PUD PPx: famotidine ENDO: # Glycemic Control - Insulin gtt DC-d and SSI started - continue to monitor BG RENAL: - Cr 0.74, UOP adequate - Diuresis per CTS - continue to follow creatinine, BUN, urine output, electrolytes - Electrolyte repletion for goal K > 4, Mg > 2 #Hypophosphatemia - Scheduled Phos repletion - Check level with PM labs HEME: # ABLA # thrombocytopenia - s/p PRBCx2, FFPx1, pltx1, 2 cryo post-op - Monitor CT output - ongoing reassessment in the immediate post-operative period - Continue to monitor on CBC, transfuse as clinically indicated - Hgb 9.3>9.5, Plt 101>96 ID: # Leukocytosis - Likely reactive in the setting of cardiac surgery - Continue to follow fever curve and WBC - Complete perioperative ABX - WBC 12.8, afwebrile INTENSIVE CARE UNIT STANDARDS OF CARE: DVT ppx: Lovenox ppx starting tonight, SCDs Access: left radial arterial line, PIVs Goals of care: full code Assessment and plan has been reviewed with attending, Dr. Nguyen Arias NP Critical Care Performed by: Tam Arias NP Authorized by: Tam Arias NP CRITICAL CARE: Team: DWAYNE Shift: AM Level of Billing: Subsequent Hospital Visit Level 3 My time spent with this patient was 20 minutes: Critical Provider Statement: I have seen and examined the patient on this day of service. I have reviewed and confirmed the history, physical exam, laboratory, and radiographic data as documented in the ICU note. I have reviewed and discussed my treatment plan with the patient's team and other medical/bridal stylist sales consultant staff. This time was in addition to and separate from care provided by other practitioners on this day of service. Cosigned by Cr Cedillo DO at 03/26/2024 4:38 PM CDT * Marlo Rdz MD - 03/26/2024 8:08 AM CDT Cardiothoracic Surgery Progress Note Stephan Madden 1965 Hospital DAY#4 4 Days Post-Op s/p: Procedures: * REPLACEMENT AORTIC VALVE, LAMBERTO Subjective: Wires removed, started on heparin gtt with warfin dosing, remains on cleviprex at 4, diuresis net -3.3 L OBJECTIVE: Vitals: Temp: [36.7 ??C (98.1 ??F)-37.3 ??C (99.2 ??F)] 36.7 ??C (98.1 ??F) Pulse: [69-104] 77 BP: (79-159)/(38-116) 125/45 Resp: [12-41] 17 SpO2: [90 %-99 %] 93 % Wt Readings from Last 3 Encounters: 03/24/24 77.9 kg (171 lb 11.8 oz) 03/17/24 81.6 kg (180 lb) 02/26/24 79.4 kg (175 lb) I/O last 2 completed shifts: In: 854 [I.V.:854] Out: 4250 [Urine:4250] Physical Exam HENT: Head: Normocephalic and atraumatic. Mouth/Throat: Mouth: Mucous membranes are moist. Eyes: Extraocular Movements: Extraocular movements intact. Cardiovascular: Rate and Rhythm: Normal rate. Pulmonary: Comments: On RA Abdominal: General: Abdomen is flat. Palpations: Abdomen is soft. Musculoskeletal: General: Normal range of motion. Cervical back: Normal range of motion and neck supple. Skin: General: Skin is warm and dry. Neurological: General: No focal deficit present. Mental Status: He is alert. Access: central line and peripheral IV Recent Labs Lab Units 03/26/24 0430 03/25/24 1221 03/25/24 0505 WBC K/cumm 10.1* 11.3* 10.1* HEMOGLOBIN g/dL 7.9* 8.0* 7.4* HEMATOCRIT % 22.8* 22.8* 21.9* PLATELETS K/cumm 87* 68* 56* Recent Labs Lab Units 03/26/24 0430 03/25/24 1621 03/25/24 0505 SODIUM mmol/L 141 143 142 POTASSIUM PLASMA mmol/L 3.4 3.5 3.7 CHLORIDE mmol/L 102 104 109 CO2 mmol/L 30 24 BUN SERUM mg/dL 25 CREATININE mg/dL 0.78* 0.71* 0.71* CALCIUM mg/dL 8.3* 8.4* 8.0* Recent Labs Lab Units 03/26/24 0613 03/26/24 0010 03/25/24 1850 03/25/24 1221 03/22/24 2332 03/22/24 1511 PROTIME (PT) sec -- -- -- 11.9 15.4* 15.4* INR -- -- -- 1.10 1.42* 1.42* APTT sec 92* >150* 27* 26* -- 35 Recent Labs Lab Units 03/23/24 0909 03/22/24 2147 03/22/24 1735 PH ART 7.36 7.38 7.37 PCO2 ART mmHg 43 40 41 PO2 ART mmHg 149* 161* 172* BASE EXC ART mmol/L -1 -1 -2 Drips: Cleviprex @ 4 Imaging: Today's CXR pending Assessment and Plan: 58 y.o. male 4 Days Post-Op s/p AVR with 23mm Leonidas valve + sternal plating CVS: Afib converted to sinus, on amio PO, home dose dilt of 240 mg/daily, 37.5 mg metop, statin, wean cleviprex today, heparin with warfarin dosing per pharmacy, start losartan today Pulm: on RA, lasix today BID GI: Tolerating diet Renal: UOP adequate 4.2L, lasix 40 mg TID + metolazone ID: Completed course of prophylactic Abx D/L/T: Central line, Prophylaxis: lovenox Dispo: CTICU Marlo Rdz MD Cardiothoracic Surgery [facility] Cosigned by Clem Schmidt MD at 03/26/2024 5:23 PM CDT Associated attestation - Clem Schmidt MD - 03/26/2024 5:23 PM CDT I have seen and examined the patient on 03/26/24. I agree with the findings and plan of care as documented in the resident's/fellow's note.. * Jolanta Quintero DO - 03/25/2024 10:00 AM CDT CARDIOLOGY PROGRESS NOTE 03/25/2024 CHIEF COMPLAINT Status post AVR INTERVAL HISTORY Patient was requested to be seen in consultation by for severe aortic stenosis status post aortic valve replacement. Stephan Madden is a 58 y.o. male with hypertension, hyperlipidemia, PSVT, possible paroxysmal atrial fibrillation, history of alcohol abuse, TIA. Followed in the office by . Recently foundto have severe aortic stenosis. Seen by CT surgery, and presented for outpatient mechanical AVR. Patient is in the CVU, intubated and sedated. Had surgery earlier today. On Cleviprex, currently being weaned. On sedation. 03/23-patient lying in bed on nasal cannula. He was just extubated about 10 minutes ago. He is lethargic but arousable. Currently on Levophed and vasopressin drips. 03/24- . Sitting up in the chair, but very sleepy. Apparently did not sleep well last night. Went into AFib with RVR this morning, getting amiodarone bolus. 03/25- sitting up in bed. Received a unit of blood yesterday. Doing much better today. In sinus rhythm. Brother and sister at the bedside. No new issues overnight. HOSPITAL MEDICATIONS No Known Allergies Scheduled Meds:acetaminophen, 1,000 mg, oral, Q6H CHAVO albuterol, 2.5 mg, nebulization, Q6H CHAVO (RT) aspirin, 81 mg, oral, Daily buPROPion SR, 150 mg, oral, BID dilTIAZem CD/XR/XT, 240 mg, oral, Daily with dinner famotidine, 20 mg, oral, BID furosemide, 40 mg, intravenous, Q8H insulin lispro, 0-10 Units, subcutaneous, 5x daily (with meals, nightly, & 0200) lidocaine, 2 patch, transdermal, Q24H methocarbamoL, 500 mg, oral, TID metoprolol tartrate, 37.5 mg, oral, BID polyethylene glycol, 17 g, oral, Daily QUEtiapine, 50 mg, oral, Nightly rosuvastatin, 10 mg, oral, Nightly senna-docusate, 2 tablet, oral, BID sodium chloride 0.9%, 0.5-20 mL, intra-catheter, Q8H [facility] sodium phosphate - potassium phosphate, 500 mg, oral, QID (with meals & nightly) warfarin, 2 mg, oral, Daily-1800 Continuous Infusions:clevidipine, 0-32 mg/hr, Last Rate: 3 mg/hr (03/25/24 0614) heparin, 0-33 Units/kg/hr, Last Rate: 12 Units/kg/hr (03/25/24 1340) sodium chloride 0.9%, 10 mL/hr sodium chloride 0.9%, 20 mL/hr, Last Rate: 20 mL/hr (03/24/24 1331) sodium chloride 0.9%, 0-250 mL PRN Meds:. sodium chloride 0.9% dextrose OR dextrose glucagon hydrALAZINE magnesium sulfate oxyCODONE potassium chloride prochlorperazine sodium chloride 0.9% sodium chloride 0.9% REVIEW OF SYSTEMS ROS No chest pain. No shortness of breath. Appropriate postop discomfort. LABS AND OTHER DIAGNOSTIC TESTS Lab Results Component Value Date WBC 11.3 (H) 03/25/2024 HGB 8.0 (L) 03/25/2024 HCT 22.8 (L) 03/25/2024 MCV 86.0 03/25/2024 Recent Labs Lab Units 03/25/24 1206 03/25/24 0743 08/23/24 0505 CO2 mmol/L -- -- 24 CREATININE mg/dL -- -- 0.71* CALCIUM mg/dL -- -- 8.0* GLUCOSE mg/dL -- -- 134 POC GLUCOSE MONITOR mg/dL 129 < > -- < > = values in this interval not displayed. No results found for: CHOL No results found for: HDL No results found for: LDLCALC No results found for: TRIG PHYSICAL EXAM Vitals: BP 146/53 Pulse 98 Temp 37.2 ??C (99 ??F) (Oral) Resp 22 Ht 183 cm (6' 0.05 ) Wt 77.9 kg (171 lb 11.8 oz) SpO2 95% BMI 23.26 kg/m?? Physical Exam Vitals reviewed. Constitutional: Appearance: Normal appearance. He is well-developed. Comments: Lethargic, arousable HENT: Head: Normocephalic and atraumatic. Nose: Nose normal. Eyes: General: No scleral icterus. Cardiovascular: Rate and Rhythm: Tachycardia present. Rhythm irregular. Pulmonary: Comments: Symmetric chest expansion Abdominal: General: There is no distension. Musculoskeletal: Right lower leg: No edema. Left lower leg: No edema. Skin: General: Skin is warm. Neurological: Mental Status: He is alert. Comments: Awake and alert ASSESSMENT -severe s/p AVR 23mm Leonidas mech valve -postop AFib with RVR -postop anemia/thrombocytopenia -PSVT -hypertension -dyslipidemia -prior TIA PLAN/RECOMMENDATIONS -severe s/p AVR 23mm Morro mech valve, doing well postoperatively. Continue PT/OT. Continue diurese with IV Lasix per CT surgery. Warfarin to start today -postop AFib with RVR, converted to sinus rhythm on IV amiodarone. Continue Cardizem, metoprolol. Patient to start warfarin today for his mechanical valve -postop anemia/thrombocytopenia- received a unit of blood yesterday. Hemoglobin stable, along with platelets. Continue to monitor. -hypertension, when Cleviprex as tolerated. Cardizem has been restarted, metoprolol increased. Suggest adding low-dose ARB such as 25 mg of losartan daily to help with blood pressure control. -postop hypotension: Resolved -PSVT, no current episodes while here in the hospital. Oral Cardizem restarted -dyslipidemia, continue rosuvastatin -prior TIA, continue aspirin Patient doing well postoperatively. Cardiology will continue to follow as needed. Jolanta Quintero, DO * Odin Cartagena, PT - 03/25/2024 9:30 AM CDT Physical Therapy PT PROGRESS NOTE PATIENT'S NAME:Stephan Madden :1965 AGE:58 y.o. ROOM:[place] [id number] Past Medical History: Diagnosis Date Arthritis Atrial fibrillation (CMS/HCC) (HCC) Depression H/O ETOH abuse went to rehab for 3 months Heart murmur Hypertension Nonrheumatic aortic (valve) stenosis Paroxysmal SVT (supraventricular tachycardia) (HCC) Seizures (HCC) 1 x 3-4 years ago d/t ETHO Sleep apnea uses cpap SOB (shortness of breath) end of day chest feels tight and uncomfortable TIA (transient ischemic attack) hosp 03/08/2024 - 03/10/2024 Past Surgical History: Procedure Laterality Date CARDIAC CATHETERIZATION 02/23/2024 COLONOSCOPY OTHER SURGICAL HISTORY JAVIER TYMPANOSTOMY TUBE PLACEMENT Patient Active Problem List Diagnosis Tobacco dependence Nonrheumatic aortic valve stenosis Supraventricular tachycardia (HCC) Lipid screening Aortic valve stenosis Aortic stenosis, severe TIME IN: 0910 TIME OUT: 0930 SUBJECTIVE Oh I'm good. How are you? We've met before? MENTAL STATUS/ORIENTATION: Alert and oriented x4 PAIN: patient verbalizing pain in chest and L rib cage. No score given when inquired. Being managedby RN. OBJECTIVE PRECAUTIONS: fall, cardiac/sternal APPEARANCE/POSTURE: sitting in recliner, pacer, reyes, no apparent distress. VITAL SIGNS: Resting BP: - Post-activity BP: 139/49 Resting heart rate: - Post-activity heart rate: 98 Resting O2 sat: - Post-activity O2 sat: 87% after room air walk, 92% upon departure. MOBILITY DOCUMENTATION: Bed Mobility/Transfers: - min assist for sit to/from stand with w/w, cues for hand placement. - min assist for sit to supine Gait: min assist for 100' with w/w, slow melly, shortened and cautious step length. Patient stillhyperventilating but improved pace from yesterday and responds better to cues for slowing exhale. Anticipate desat related to shallow, tachypneic pattern. APPEARANCE/POSTURE (end of session): supine in bed, room air, pacer, call light in reach, reyes, noapparent distress. RN, Radha, aware of patient status. EDUCATION:bed mobility , functional transfer training, gait training , endurance training, safety ,durable medical equipment education, pursed lip breathing , and post-op precautions RESPONSE TO EDUCATION: needs reinforcement ASSESSMENT Activity tolerance/response to P.T.: Patient with improved mentation and activity tolerance compared to yesterday. Less physical assist needed overall and able to ambulate further distance. Min assist overall for safety and steadying. Deficits in balance, endurance and strength noted. Needs emphasis on how to breathe to improve tolerance. Further therapy indicated. Barriers to learning: Physical and Emotional Barriers to discharge: Pain, Limited safety awareness, Anxiety, Limited insight into deficits, Decreased endurance, Lower extremity weakness, Medical complications, Skin Care, and Medication managment Patient continues progressing toward previously set goals which remain appropriate at this time. PLAN PT Discharge Recommendations this date: PT Recommendation/Plan: Home with 24 hour supervision, Home Health PT Patient at high risk for: Falls, Readmission, Injury due to decreased ability to care for self, Injury due to reduced functional status, Injury due to balance deficits, Injury at home as patient has not returned to prior level of function, Developing secondary complications: poor health management,Prolonged dependence for self care tasks, Difficulty maintaining orthopedic restrictions, Improper u se of DME PT Frequency during current admission: 3-5x/wk CARE PLAN Multi-Disciplinary Problems (from Physical Therapy) Active Problems Problem: PT Misc Start Date: 03/24/24 Goal Start Date Expected End Date End Date Patient to perform bed mobility with independence. 03/24/24 03/31/24 -- Progressing Goal Start Date Expected End Date End Date Patient to perform functional transfers with most appropriate device MOD I. 03/24/24 03/31/24 -- Progressing Goal Start Date Expected End Date End Date Patient to ambulate 250 feet with most appropriate device MOD I. 03/24/24 03/31/24 -- Progressing Goal Start Date Expected End Date End Date Patient to navigate a flight of steps with handrail as needed MOD I. 03/24/24 03/31/24 -- Progressing Goal Start Date Expected End Date End Date Patient to verbalize and demonstrate post-op precautions throughout mobility independently including correct use of incentive spirometer. 03/24/24 03/31/24 -- Progressing If this is the last note, please consider this the discharge summary. * Bonnie Cedeno COTA - 03/25/2024 8:53 AM CDT Occupational Therapy NOTE / SESSION TYPE: DAILY PROGRESS / TREATMENT Patient's Name: Stephan Madden Age / Sex: 58 y.o. / male Room: [place] [id number] : 1965 Date of service: 03/25/24 TIME IN: 853 TIME OUT: 926 Patient Active Problem List Diagnosis Tobacco dependence Nonrheumatic aortic valve stenosis Supraventricular tachycardia (HCC) Lipid screening Aortic valve stenosis Aortic stenosis, severe Past Medical History: Diagnosis Date Arthritis Atrial fibrillation (CMS/HCC) (HCC) Depression H/O ETOH abuse went to rehab for 3 months Heart murmur Hypertension Nonrheumatic aortic (valve) stenosis Paroxysmal SVT (supraventricular tachycardia) (HCC) Seizures (HCC) 1 x 3-4 years ago d/t ETHO Sleep apnea uses cpap SOB (shortness of breath) end of day chest feels tight and uncomfortable TIA (transient ischemic attack) hosp 03/08/2024 - 03/10/2024 Past Surgical History: Procedure Laterality Date CARDIAC CATHETERIZATION 02/23/2024 COLONOSCOPY OTHER SURGICAL HISTORY JAVIER TYMPANOSTOMY TUBE PLACEMENT Precautions (including weight-bearing): Fall risk and Sternal precautions Subjective: Sounds like fun Therapy Pain: Pre-therapy pain level: did not rate /10 Pain location: L side Pain Intervention(s): Repositioned Post-therapy pain level: unchanged /10 Pain scale reference: 0-10 SCALE Objective: Appearance: Presentation upon OT arrival: Patient Sitting in bedside recliner Presentation upon OT departure: Patient Supine with head of bed elevated Bed / Chair alarm in place and activated upon OT departure: No Call light within arms reach of patient at end of session: Yes Completed patient handoff and notified COURTESY DRIVER / RN, name: Kelsey, of patient's location and functional status upon completion of session VITAL SIGNS: Heart rate at rest: - BPM Heart rate with activity: 98 BPM O2 saturations at rest: 92 % O2 saturations with activity: 87 % Oxygen LPM: RA Blood pressure at rest: - Blood pressure with activity: 139/49 Cognitive / Perceptual: Alert, pleasant, cooperative Mobility / Transfers: Bed Mobility: MIN A sit > supine for trunk and B LE's Transfer(s): MIN A sit to stand from recliner with hand over hand assistance for hand placement in order to adhere to sternal precautions MIN A + SBA for line management during functional mobility of household distance Living Skills / Other Activities: Bathing: Patient completed spongebathing including chest, abdomen, right arm, left arm, left upper leg, right upper leg, left lower leg, including foot, and right lower leg, including foot while Sitting in bedside chair / recliner with overall Maximal assistance. Patient required assistance for all components and set up of wet washcloth with vc's for face washing . UE dressing: Patient completed upper body dressing of Hospital gown as robe and Hospital gown while Sitting in bedside chair / recliner with overall Minimal assistance. Patient required assistance for threading LUE and maintaining precautions. Footwear: Patient completed footwear of Footie(s) while Sitting in bedside chair / recliner with overall Supervision assistance. Patient required assistance for set up with vc's to initiate task. Patient completed footwear while sitting using figure four method to reach. Caregiver Present: No Education & Training Provided: Role of OT, OT plan of care, ADL training, Bed mobility training, Functional transfer training, Balance training, Safety education, Pursed lip breathing / Relaxation techniques, and sternal precautions Assessment: Activity tolerance / response to OT session: GOOD PARTICIPATION, GOOD MOTIVATION, and RECEPTIVE TO EDUCATION / TRAINING Progress towards goals: Please refer to care plan from this date for progress towards individual goals Plan: Therapy Plan: Rehab Potential (Prognosis): good OT Recommendations This Date: OT RECOMMENDATIONS: OT Recommendation: Home with 24 hour supervision, Home Health OT Flow sheet updated and OT Consultation in Regards to Change in Discharge Recommendations: YES /NO: No Additional recommendation comments: Frequency of therapy:OT Frequency during current admission: 3-5x/wk If this is the last note, consider this the discharge summary BonnieBONNIE Vela 03/25/24 Cosigned by Melvin Schaefer OT at 03/25/2024 2:18 PM CDT * Tam Arias NP - 03/25/2024 8:35 AM CDTAssociated Order(s): Critical Care Post-Procedure Diagnose(s): Aortic stenosis, severe Images from the original note were not included. Critical Care Medicine Daily Progress Team: Community AM Subjective Patient is a 58 y.o. y/o male admitted on 03/22/2024 5:30 AM with the following indication(s) for ICU care s/p Mechanical AVR Interval History: - Increase oral antihypertensives - Wean off clevidipine - Start heparin drip for anticoagulation - Lasix + Metolazone - DC CVC and Reyes cath - Potential later transfer to floor HPI 58 yo male with worsening SOB and fatigue with exertion x1 year. Admitted to ICU s/p planned AVR with Dr. Baldwin. Uncomplicated OR course, AVR with 23mm Leonidas, easy airway, received 750ml cell saver, 2100ml crystalloid, was noted to be oozy at the end of the case. Upon arrival to ICU was off pressors, had 140ml CT output, and plt 85 for which he received 1u plts. PMH: aortic stenosis, sleep apnea (CPAP compliant), paroxysmal atrial fibrillation, SVT, current smoker, and alcohol abuse with history of sz and withdrawal (per chart review has been sober x1 year),anx/depression, HTN/HLD, HFpEF EF 60-70%, TIA Hospital Course 03/22 [facility] AVR, NE/vaso/ epi/ 2 prbc, 1 ffp, 1 plt, 2 cryo Scheduled Medications: acetaminophen, 1,000 mg, oral, Q6H CHAVO albuterol, 2.5 mg, nebulization, Q6H CHAVO (RT) aspirin, 81 mg, oral, Daily buPROPion SR, 150 mg, oral, BID dilTIAZem CD/XR/XT, 240 mg, oral, Daily with dinner famotidine, 20 mg, oral, BID furosemide, 40 mg, intravenous, Q8H insulin lispro, 0-10 Units, subcutaneous, 5x daily (with meals, nightly, & 0200) lidocaine, 2 patch, transdermal, Q24H methocarbamoL, 500 mg, oral, TID metOLazone, 5 mg, oral, Once metoprolol tartrate, 37.5 mg, oral, BID polyethylene glycol, 17 g, oral, Daily QUEtiapine, 50 mg, oral, Nightly rosuvastatin, 10 mg, oral, Nightly senna-docusate, 2 tablet, oral, BID sodium chloride 0.9%, 0.5-20 mL, intra-catheter, Q8H CHAVO sodium phosphate - potassium phosphate, 500 mg, oral, QID (with meals & nightly) warfarin, 2 mg, oral, Daily-1800 Continuous Medications: clevidipine, 0-32 mg/hr, Last Rate: 3 mg/hr (03/25/24 0614) heparin, 0-33 Units/kg/hr sodium chloride 0.9%, 10 mL/hr sodium chloride 0.9%, 20 mL/hr, Last Rate: 20 mL/hr (03/24/24 1331) sodium chloride 0.9%, 0-250 mL Medications Discontinued During This Encounter Medication Reason vancomycin (VANCOCIN) solution Patient Discharge sodium chloride 0.9% irrigation Patient Discharge ceFAZolin (ANCEF) injection Patient Discharge ceFAZolin (ANCEF) 1 gram/10 mL in sterile water (premix) 2,000 mg Patient Transfer vancomycin 1500 mg/250 mL in sodium chloride 0.9% (premix) 1,500 mg Patient Transfer sodium chloride 0.9% flush 0.5-20 mL Patient Transfer Carrier Fluids for Secondary Infusion - 0.9% Sodium Chloride Patient Transfer vancomycin 1,000 mg/200 mL in dextrose 5% (premix) 1,000 mg norepinephrine in dextrose 5% (LEVOPHED) 8,000 mcg/250 mL (32 mcg/mL) infusion (premix) oxyCODONE (ROXICODONE) tablet 5 mg Lactated Ringer's (LR) infusion acetaminophen (TYLENOL) 32 mg/mL oral liquid 1,000 mg acetaminophen (TYLENOL) suppository 650 mg aspirin chewable tablet 81 mg propofoL (DIPRIVAN) 10 mg/mL IV fentaNYL (SUBLIMAZE) preservative free injection 50 mcg insulin regular in 0.9% sodium chloride (MYXREDLIN) 100 unit/100 mL (1 unit/mL) infusion (premix) dextrose (D10W) 10% bolus 1-500 mL metoprolol tartrate (LOPRESSOR) immediate release tablet 12.5 mg clevidipine (CLEVIPREX) 25 mg/50 mL (0.5 mg/mL) infusion (premix) dilTIAZem (CARDIZEM) tablet 120 mg Other metoprolol tartrate (LOPRESSOR) immediate release tablet 12.5 mg dilTIAZem CD/XR/XT (CARDIZEM CD,DILACOR XR) 24 hour capsule 120 mg famotidine (PEPCID) injection 20 mg furosemide (LASIX) 10 mg/mL injection 40 mg metoprolol tartrate (LOPRESSOR) immediate release tablet 25 mg sodium chloride 0.9% solution dexmedeTOMIDine in 0.9% sodium chloride (PRECEDEX) 400 mcg/100 mL (4 mcg/mL) infusion (premix) norepinephrine in dextrose 5% (LEVOPHED) 8,000 mcg/250 mL (32 mcg/mL) infusion (premix) vasopressin in 5% dextrose (VASOSTRICT) 20 unit/100 mL (0.2 unit/mL) infusion EPINEPHrine in 0.9% sodium chloride 2,000 mcg/100 mL (20 mcg/mL) infusion (premix) PRN Medications: sodium chloride 0.9% dextrose OR dextrose glucagon hydrALAZINE magnesium sulfate oxyCODONE potassium chloride prochlorperazine sodium chloride 0.9% sodium chloride 0.9% Objective Vitals: Most Recent: Vitals: 03/25/24 1030 BP: 141/50 Pulse: 91 Resp: 20 Temp: SpO2: 94% 24hr Min/Max: Temp Min: 36.8 ??C (98.3 ??F) Max: 37.3 ??C (99.2 ??F) Pulse Min: 72 Max: 138 BP Min: 82/60 Max: 147/53 Resp Min: 15 Max: 32 SpO2 Min: 87 % Max: 100 % LDA: Introducer 03/22/24 Right Internal jugular (Active) Placement Date/Time: 03/22/24 (c) 0858 Hand Hygiene Performed: Yes Orientation: Right Location: Internal jugular Description (optional): multi-lumen access catheter (MAC) Number of days: 0 PA Catheter 8 Fr. Right Other (Comment) (Active) Placement Date/Time: 03/22/24 (c) 0858 Site Prep: Chlorhexidine Sheath Size: 8 Fr. Line Orientation: Right Sheath Insertion Site: Other (Comment) Number of days: 0 Arterial Line 03/22/24 Left Radial (Active) Placement Date/Time: 03/22/24 (c) 0855 Size: 20 G Orientation: Left Location: Radial Securement Method: Taped;Transparent dressing Number of days: 0 ETT ETT - single 8 mm (Active) Placement Date/Time: 03/22/24 (c) 0858 Mask Ventilation: Vent by mask Technique: Direct laryngoscopy ETT Type: ETT - single Single Lumen Tube Size: 8 mm Cuffed: Yes Laryngoscope: Crystal Blade Size: 4 Location: Oral Grade View: Full view o... Number of days: 0 Urethral Catheter Double-lumen;Straight-tip (Active) Placement Date/Time: 03/22/24 0816 Inserted by: Venkat Yeager RN Catheter Type: (c) Double-lumen;Straight-tip Tube Size (Fr.): 16 Fr Catheter Balloon Size: 10 mL Urine Returned: Yes Number of days: 0 Y Chest Tube A and B A Mediastinal 28 Fr. B Right Pleural 24 Fr. (Active) Placement Date/Time: 03/22/24 1043 Inserted by: Dr. Baldwin Tube Number A: A Chest Tube Location A: Mediastinal Size (Fr.) A: 28 Fr. Tube Number B: B Chest Tube Orientation B: Right Chest Tube Location B: Pleural Size (Fr.) B: (c) 24 Fr. Chest T... Number of days: 0 Vent settings: Hemodynamic parameters for last 24 hours: I/O: Date 03/24/24699 - 03/25/2465803/25/24699 - 03/26/24 0659 Shift 6700-7880 4846-1871 24 Hour Total 1776-2511 8402-6261 24 Hour Total INTAKE P.O. 650 650 I.V.(mL/kg) 821.1(10.5) 821.1(10.5) Blood 325 325 IV Piggyback 100 100 Shift Total(mL/kg) 1571.1(20.2) 325(4.2) 1896.1(24.3) OUTPUT Urine(mL/kg/hr) 1230(1.3) 315(0.3) 1545(0.8) 350 350 Chest Tube 90 90 Shift Total(mL/kg) 1320(16.9) 315(4) 1635(21) 350(4.5) 350(4.5) NET 251.1 10 261.1 -350 -350 Weight (kg) 77.9 77.9 77.9 77.9 77.9 77.9 Physical Exam: Neuro: Aox 4, no focal deficits HEENT: Head NC/AT, face symmetrical, PEERL CV: atrial fibrillation, S1 and S2 without M/G/R Pulm: Nasal cannula, LCTA. GI: Abdomen Soft/ND, normoactive bowel sounds : Reyes to gravity Skin: Warm, dry, good turgor Extremities: No edema, PPP Wounds: sternotomy dressing CDI Access: Rt IJ MAC, PIV Wound 03/22/24 Incision Chest Mid-line (Active) Date First Assessed/Time First Assessed: 03/22/24 1157 Primary Wound Type: Incision Location: ChestLocation Orientation: Mid-line Assessments 03/22/2024 11:57 AM 03/25/2024 8:00 AM Dressing Status Clean/Dry/Intact Clean/Dry/Intact Site Assessment -- Unable to assess Shape & Pattern Linear -- Kasey-wound Assessment -- Unable to assess Dressing Silver dressing Silver dressing Closure -- Approximated;Steri-strips No associated orders. Wound 03/22/24 Incision Chest Medial (Active) Date First Assessed/Time First Assessed: 03/22/24 1154 Present on Original Admission: No Primary Wound Type: Incision Location: (c) Chest Location Orientation: Medial Assessments 03/22/2024 12:20 PM 03/25/2024 8:00 AM Dressing Status Clean/Dry/Intact Clean/Dry/Intact Site Assessment Clean Unable to assess Shape & Pattern Other (Comment) -- [place] dressing Silver dressing No associated orders. Lab/Radiology/Diagnostic Review: Chem/LFT Lab History Latest Ref Rng & Units 03/22/2024 03/23/2024 03/24/2024 03/25/2024 05:05 Labs-Chem/LFT Sodium 135 - 145 mmol/L 145 141 141 142 Creatinine 0.80 - 1.30 mg/dL 0.85 0.59 0.71 0.71 CrCl- Actual Body Weight (Cockcroft-Gault) 104.9 151.1 128 128 Details More abnormal values are hidden. Newest values shown. Go to activity for more data. More values are hidden. Newest values shown. Go to activity for more data. Hematology Lab History Latest Ref Rng & Units 03/22/2024 03/23/2024 03/24/2024 03/25/2024 05:05 Labs - Hematology WBC 3.8 - 9.9 K/cumm 12.8 9.9 11.6 10.1 Total Hb, POC 13.0 - 17.5 g/dL 9.3 7.1 6.9 7.4 Hct 38.9 - 50.3 % 26.4 20.0 19.6 21.9 Plt 150 - 400 K/cumm 101 57 54 56 Details More abnormal values are hidden. Newest values shown. Go to activity for more data. I have personally reviewed the telemetry strips over the past 12h. I have personally reviewed the above labs and microbiology results. I have personally reviewed the radiology exams in the past 24h. Assessment and plan: NEURO: # Acute pain - Tylenol, Lidoderm, Oxycodone and Fentanyl prn for pain. - Robaxin as adjunct to pain management - Continue to closely monitor pain level and modify the regimen appropriately. # TIA, history of - 03/09: pt with left arm and leg numbness, HCT without acute process, resolution of symptoms - home regimen: asa and statin # anxiety, chronic # depression, chronic - home regimen: seroquel, no recent refill of bupropion per chart review - resume when appropriate # restless leg syndrome, chronic # insomnia, chronic - home regimen: lunesta, ropinirole - hold home regimen in the acute setting - resume ropinirole when appropriate # alcohol use disorder, history of - per chart review, pt with prior hx of alcohol use, with history of withdrawal and seizure x1 - per pt report, has been sober x1 year - continue to monitor CV: # aortic stenosis, chronic - CTS Primary - 03/22: s/p AVR with Dr. Baldwin - Pre-operative and postoperative JAVIER w/ EF 60% - Off vasopressors - Epicardial wires in place, pacer VVI backup - PAC in place, noted on CXR - ASA daily - resume statin per CTS - Heparin gtt started 03/25 #Atrial fibrillation, new onset # paroxysmal SVT, chronic - Amiodarone bolus and start 24 hrs of drip - home regimen: diltiazem, metoprolol, warfarin - resume regimen per CTS - optimize electrolytes # HTN, chronic # HLD, chronic - home regimen: rosuvastatin, metoprolol - resume per CTS - goal normotension postoperatively PULM: #Right sided effusion, presumed hemothorax - Improved after affressice stripping of CT-s - CTS aware - Continue to monitor - CT discontinued 03/24 # NICOLE, chronic - compliant with CPAP - CPAP at night once extubated - NICOLE precautions # current smoker - pulm hygiene as above - offer smoking cessation education when appropriate GI: Diet: Cardiac diet Bowel regimen: docusate, senna PUD PPx: famotidine ENDO: # Glycemic Control - Insulin gtt DC-d and SSI started - continue to monitor BG RENAL: - Cr 0.74, UOP adequate - Diuresis per CTS - continue to follow creatinine, BUN, urine output, electrolytes - Electrolyte repletion for goal K > 4, Mg > 2 #Hypophosphatemia - Scheduled Phos repletion - Check level with PM labs HEME: # ABLA # thrombocytopenia - s/p PRBCx2, FFPx1, pltx1, 2 cryo post-op - Monitor CT output - ongoing reassessment in the immediate post-operative period - Continue to monitor on CBC, transfuse as clinically indicated - Hgb 9.3>9.5, Plt 101>96 ID: # Leukocytosis - Likely reactive in the setting of cardiac surgery - Continue to follow fever curve and WBC - Complete perioperative ABX - WBC 12.8, afwebrile INTENSIVE CARE UNIT STANDARDS OF CARE: DVT ppx: Lovenox ppx starting tonight, SCDs Access: left radial arterial line, PIVs Goals of care: full code Assessment and plan has been reviewed with attending, Dr. Krishna Arias NP Critical Care Performed by: Tam Arias NP Authorized by: Tam Arias NP CRITICAL CARE: Team: DWAYNE Shift: AM Level of Billing: Subsequent Hospital Visit Level 3 My time spent with this patient was 30 minutes: Critical Provider Statement: I have seen and examined the patient on this day of service. I have reviewed and confirmed the history, physical exam, laboratory, and radiographic data as documented in the ICU note. I have reviewed and discussed my treatment plan with the patient's team and other medical/bridal stylist sales consultant staff. This time was in addition to and separate from care provided by other practitioners on this day of service. Cosigned by Dequan Keller MD at 03/25/2024 4:58 PM CDT * Marlo Rdz MD - 03/25/2024 6:45 AM CDT Cardiothoracic Surgery Progress Note Stephan Madden 1965 Hospital DAY#3 3 Days Post-Op s/p: Procedures: * REPLACEMENT AORTIC VALVE, LAMBERTO Subjective: Slept well overnight, 1U PBRC for Hgb of 6.9, chest tubes removed, afib (rate controlled) overnight, sinus this AM, amio at 0.5, cleviprex @ 3 mg/hr OBJECTIVE: Vitals: Temp: [36.9 ??C (98.4 ??F)-37.3 ??C (99.2 ??F)] 36.9 ??C (98.5 ??F) Pulse: [74-138] 74 BP: (94-165)/(43-64) 111/47 Resp: [15-32] 20 SpO2: [87 %-100 %] 98 % Wt Readings from Last 3 Encounters: 03/24/24 77.9 kg (171 lb 11.8 oz) 03/17/24 81.6 kg (180 lb) 02/26/24 79.4 kg (175 lb) I/O last 2 completed shifts: In: 2259.2 [P.O.:960; I.V.:1199.2; IV Piggyback:100] Out: 2009 [Urine:1900; Chest Tube:110] Physical Exam HENT: Head: Normocephalic and atraumatic. Mouth/Throat: Mouth: Mucous membranes are moist. Eyes: Extraocular Movements: Extraocular movements intact. Cardiovascular: Rate and Rhythm: Normal rate. Comments: VVI back-up at 60 Pulmonary: Comments: On 2L NC Abdominal: General: Abdomen is flat. Palpations: Abdomen is soft. Genitourinary: Comments: Reyes in place, clear yellow urine Musculoskeletal: General: Normal range of motion. Cervical back: Normal range of motion and neck supple. Skin: General: Skin is warm and dry. Neurological: General: No focal deficit present. Mental Status: He is alert. Access: central line and peripheral IV Recent Labs Lab Units 03/25/24 0505 03/24/24 1401 03/24/24 0406 WBC K/cumm 10.1* 11.6* 10.9* HEMOGLOBIN g/dL 7.4* 6.9* 7.1* HEMATOCRIT % 21.9* 19.6* 20.0* PLATELETS K/cumm 56* 54* 54* Recent Labs Lab Units 03/25/24 0505 03/24/24 1401 03/24/24 0406 SODIUM mmol/L 142 141 140 POTASSIUM PLASMA mmol/L 3.7 3.6 3.9 CHLORIDE mmol/L 109 108 109 CO2 mmol/L 24 22 20* BUN SERUM mg/dL 25 22 19 CREATININE mg/dL 0.71* 0.71* 0.68* CALCIUM mg/dL 8.0* 8.0* 8.4* Recent Labs Lab Units 03/22/24 2332 03/22/24 1511 03/22/24 1231 03/22/24 0646 03/18/24 1229 PROTIME (PT) sec 15.4* 15.4* 15.6* < > 16.7* INR 1.42* 1.42* 1.43* < > 1.53* APTT sec -- 35 33 -- 34 < > = values in this interval not displayed. Recent Labs Lab Units 03/23/24 0909 03/22/24 2147 03/22/24 1735 PH ART 7.36 7.38 7.37 PCO2 ART mmHg 43 40 41 PO2 ART mmHg 149* 161* 172* BASE EXC ART mmol/L -1 -1 -2 Drips: Cleviprex @ 3 Amio gtt @ 0.5 mg/hr Imaging: Today's CXR bilateral lower lobe atelectasis, mild congestion Assessment and Plan: 58 y.o. male 3 Days Post-Op s/p AVR with 23mm Leonidas valve + sternal plating CVS: Afib converted to sinus, on amio gtt, home dose dilt of 240 mg/daily, 37.5 mg metop today, start statin today, wean cleviprex today, will remove wires today, heparin with warfarin after wirse out Pulm: moderate congestion, lasix today TID, 1x metolazone dose GI: Tolerating diet Renal: UOP adequate 1.5L, lasix 40 mg TID + metolazone ID: Completed course of prophylactic Abx D/L/T: Central line, Reyes to be removed Prophylaxis: lovenox Dispo: CTICU Marlo Rdz MD Cardiothoracic Surgery [facility] Cosigned by Ernie Baldwin MD at 03/25/2024 10:50 AM CDT * Jolanta Quintero, - 03/24/2024 12:40 PM CDT CARDIOLOGY PROGRESS NOTE 03/24/2024 CHIEF COMPLAINT Status post AVR INTERVAL HISTORY Patient was requested to be seen in consultation by for severe aortic stenosis status post aortic valve replacement. Stephan Madden is a 58 y.o. male with hypertension, hyperlipidemia, PSVT, possible paroxysmal atrial fibrillation, history of alcohol abuse, TIA. Followed in the office by . Recently foundto have severe aortic stenosis. Seen by CT surgery, and presented for outpatient mechanical AVR. Patient is in the CVU, intubated and sedated. Had surgery earlier today. On Cleviprex, currently being weaned. On sedation. 03/23-patient lying in bed on nasal cannula. He was just extubated about 10 minutes ago. He is lethargic but arousable. Currently on Levophed and vasopressin drips. 03/24- . Sitting up in the chair, but very sleepy. Apparently did not sleep well last night. Went into AFib with RVR this morning, getting amiodarone bolus. HOSPITAL MEDICATIONS No Known Allergies Scheduled Meds:acetaminophen, 1,000 mg, oral, Q6H CHAVO albuterol, 2.5 mg, nebulization, Q6H CHAVO (RT) aspirin, 81 mg, oral, Daily buPROPion SR, 150 mg, oral, BID dilTIAZem CD/XR/XT, 240 mg, oral, Daily with dinner famotidine, 20 mg, intravenous, Daily insulin lispro, 0-10 Units, subcutaneous, 5x daily (with meals, nightly, & 0200) lidocaine, 2 patch, transdermal, Q24H methocarbamoL, 500 mg, oral, TID metoprolol tartrate, 25 mg, oral, BID polyethylene glycol, 17 g, oral, Daily QUEtiapine, 50 mg, oral, Nightly senna-docusate, 2 tablet, oral, BID sodium chloride 0.9%, 0.5-20 mL, intra-catheter, Q8H CHAVO Continuous Infusions:amiodarone, 1 mg/min, Last Rate: 1 mg/min (03/24/24 1145) Followed by amiodarone, 0.5 mg/min clevidipine, 0-32 mg/hr, Last Rate: 8 mg/hr (03/24/24 1145) dexmedeTOMIDine, 0-1.5 mcg/kg/hr, Last Rate: Stopped (03/23/24 1320) EPINEPHrine, 0-0.2 mcg/kg/min, Last Rate: Stopped (03/23/24 0645) norepinephrine, 0-2 mcg/kg/min, Last Rate: Stopped (03/23/24 1430) sodium chloride 0.9%, 10 mL/hr sodium chloride 0.9%, 20 mL/hr, Last Rate: 20 mL/hr (03/24/24 1145) sodium chloride 0.9%, 3-12 mL/hr, Last Rate: 10 mL/hr (03/24/24 0620) vasopressin, 0.04 Units/min, Last Rate: Stopped (03/23/24 1430) PRN Meds:. sodium chloride 0.9% dextrose OR dextrose glucagon hydrALAZINE magnesium sulfate oxyCODONE potassium chloride prochlorperazine sodium chloride 0.9% sodium chloride 0.9% REVIEW OF SYSTEMS ROS No chest pain. Complains of appropriate postop discomfort. Feeling very tired, did not sleep well last night . LABS AND OTHER DIAGNOSTIC TESTS Lab Results Component Value Date WBC 10.9 (H) 03/24/2024 HGB 7.1 (L) 03/24/2024 HCT 20.0 (L) 03/24/2024 MCV 85.1 03/24/2024 Recent Labs Lab Units 03/24/24 0738 03/24/24 0406 CO2 mmol/L -- 20* CREATININE mg/dL -- 0.68* CALCIUM mg/dL -- 8.4* GLUCOSE mg/dL -- 173 POC GLUCOSE MONITOR mg/dL 192 -- No results found for: CHOL No results found for: HDL No results found for: LDLCALC No results found for: TRIG PHYSICAL EXAM Vitals: BP 159/51 Pulse 110 Temp 37 ??C (98.6 ??F) (Oral) Resp 22 Ht 183 cm (6' 0.05 ) Wt77.9 kg (171 lb 11.8 oz) SpO2 98% BMI 23.26 kg/m?? Physical Exam Vitals reviewed. Constitutional: Appearance: Normal appearance. He is well-developed. Comments: Lethargic, arousable HENT: Head: Normocephalic and atraumatic. Nose: Nose normal. Eyes: General: No scleral icterus. Cardiovascular: Rate and Rhythm: Tachycardia present. Rhythm irregular. Pulmonary: Comments: Symmetric chest expansion Abdominal: General: There is no distension. Musculoskeletal: Right lower leg: No edema. Left lower leg: No edema. Skin: General: Skin is warm. Neurological: Mental Status: He is alert. Comments: Awake and alert ASSESSMENT -severe s/p AVR 23mm Leonidas mech valve -postop AFib with RVR -postop anemia/thrombocytopenia -PSVT -hypertension -dyslipidemia -prior TIA PLAN/RECOMMENDATIONS -severe s/p AVR 23mm Leonidas mech valve, continue current postop management, PT/OT. -postop AFib with RVR, went in AFib with RVR this morning. Agree with IV amiodarone bolus and drip.Continue oral Cardizem. If plan to transition to oral amiodarone, recommend discontinuing metoprolol. -postop anemia/thrombocytopenia- hemoglobin stable this morning at 7.1 in comparison to yesterday afternoon. Will continue to monitor. Platelets decreased down to 54, currently receiving heparin. Continue to monitor. Patient did receive 2 units PRBC 1 FFP, 1 platelet, 2 cryo on 03/22 -hypotension: Resolved, off pressors and antihypertensives restarted. -PSVT, no current episodes while here in the hospital. Oral Cardizem restarted -dyslipidemia, restart rosuvastatin -prior TIA, continue aspirin Jolanta Quintero DO * Marlo Rdz MD - 03/24/2024 12:40 PM CDT Cardiothoracic Surgery Progress Note Stephan Madden 1965 Hospital DAY#2 2 Days Post-Op s/p: Procedures: * REPLACEMENT AORTIC VALVE, LAMBERTO Subjective: Feeling better this AM, HTN requiring cleviprex overnight, started metop, started 1/2 dose diltiazem overnight due to increasing pressures, Afib with RVR this AM, pressures stable s/p Amio bolus + amio gtt, minimal CT output, Hgb stable at 7.1 OBJECTIVE: Vitals: Temp: [37 ??C (98.6 ??F)-37.1 ??C (98.8 ??F)] 37 ??C (98.6 ??F) Pulse: [75-137] 110 BP: (153-178)/(38-84) 159/51 Resp: [15-31] 22 SpO2: [91 %-100 %] 98 % SVO2: [46 %-66 %] 52 % PAP: 17/6 (03/23 1530) CVP: 262 mmHg (03/23 1600) PCWP: -- CO: 8.7 L/min (03/23 1530) CI: 4.4 L/min/m2 (03/23 1530) SVO2: 52 % (03/23 1530) Pacemaker Overdrive Pacing: -- Cardiac Rhythm: Atrial fibrillation (03/24 1100) Pacer Mode: VVI (03/24 0800) Wt Readings from Last 3 Encounters: 03/24/24 77.9 kg (171 lb 11.8 oz) 03/17/24 81.6 kg (180 lb) 02/26/24 79.4 kg (175 lb) I/O last 2 completed shifts: In: 2145.2 [P.O.:610; I.V.:1035.2; Blood:250; IV Piggyback:250] Out: 1285 [Urine:1205; Chest Tube:80] Physical Exam HENT: Head: Normocephalic and atraumatic. Mouth/Throat: Mouth: Mucous membranes are moist. Eyes: Extraocular Movements: Extraocular movements intact. Cardiovascular: Rate and Rhythm: Normal rate. Comments: VVI back-up at 60 Pulmonary: Comments: On 2L NC Abdominal: General: Abdomen is flat. Palpations: Abdomen is soft. Genitourinary: Comments: Reyes in place, clear yellow urine Musculoskeletal: General: Normal range of motion. Cervical back: Normal range of motion and neck supple. Skin: General: Skin is warm and dry. Neurological: General: No focal deficit present. Mental Status: He is alert. Chest tube output: sanguinous, airleak: No, suction: -20mmHg Access: central line, swan, and peripheral IV Recent Labs Lab Units 03/24/24 0406 03/23/24 1300 03/23/24 0212 WBC K/cumm 10.9* 9.9 14.5* HEMOGLOBIN g/dL 7.1* 7.1* 9.5* HEMATOCRIT % 20.0* 20.0* 27.0* PLATELETS K/cumm 54* 57* 96* Recent Labs Lab Units 03/24/24 0406 03/23/24 1300 03/23/24 0212 SODIUM mmol/L 140 141 143 POTASSIUM PLASMA mmol/L 3.9 3.8 4.5 CHLORIDE mmol/L 109 114* 113* CO2 mmol/L 20* 21* 22 BUN SERUM mg/dL 19 15 15 CREATININE mg/dL 0.68* 0.59* 0.74* CALCIUM mg/dL 8.4* 7.3* 9.1 Recent Labs Lab Units 03/22/24 2332 03/22/24 1511 03/22/24 1231 03/22/24 0646 03/18/24 1229 PROTIME (PT) sec 15.4* 15.4* 15.6* < > 16.7* INR 1.42* 1.42* 1.43* < > 1.53* APTT sec -- 35 33 -- 34 < > = values in this interval not displayed. Recent Labs Lab Units 03/23/24 0909 03/22/24 2147 03/22/24 1735 PH ART 7.36 7.38 7.37 PCO2 ART mmHg 43 40 41 PO2 ART mmHg 149* 161* 172* BASE EXC ART mmol/L -1 -1 -2 Drips: Cleviprex @ 9 Amio gtt @ 1 mg/hr Imaging: Today's CXR moderate congestion right > left Assessment and Plan: 58 y.o. male 2 Days Post-Op s/p AVR with 23mm Leonidas valve + sternal plating CVS: Afib with RVR, on amio gtt, increase dilt to home dose of 240 mg/daily, 25 mg metop today, chest tubes can be removed Pulm: moderate congestion, lasix today GI: Tolerating diet Renal: UOP adequate 1.2L ID: Completing course of prophylactic Abx D/L/T: Eric Nascimento, CT x 2, chest tubes out today, kajal outeric out Prophylaxis: lovenox Dispo: CTICU Marlo Rdz MD Cardiothoracic Surgery [facility] Cosigned by Ernie Baldwin MD at 03/25/2024 10:50 AM CDT * Odin Cartagena, PT - 03/24/2024 7:40 AM CDT Physical Therapy INITIAL EVALUATION PATIENT'S NAME:Stephan Madden :1965 AGE:58 y.o. ROOM:[place] [id number] TIME IN: 0927 TIME OUT:0958 CURRENT DIAGNOSIS AND HOSPITAL COURSE: Patient presented with heart failure, found to have severe aortic stenosis. Now s/p AVR and LAMBERTO 03/22/[address] Baldwin. Notable hx: COPD, Smoker, Sleep apnea, pAfib, SVT, alcohol abuse w/ h/o seizures and withdrawal (has been sober x1 year per chart), anxiety/depression, HTN, HLD, HFpEF, TIA, see below. Patient Active Problem List Diagnosis Tobacco dependence Nonrheumatic aortic valve stenosis Supraventricular tachycardia (HCC) Lipid screening Aortic valve stenosis Aortic stenosis, severe Past Medical History: Diagnosis Date Arthritis Atrial fibrillation (CMS/HCC) (HCC) Depression H/O ETOH abuse went to rehab for 3 months Heart murmur Hypertension Nonrheumatic aortic (valve) stenosis Paroxysmal SVT (supraventricular tachycardia) ([facility]) Seizures ([facility]) 1 x 3-4 years ago d/t ETHO Sleep apnea uses cpap SOB (shortness of breath) end of day chest feels tight and uncomfortable TIA (transient ischemic attack) hosp 03/08/2024 - 03/10/2024 Past Surgical History: Procedure Laterality Date CARDIAC CATHETERIZATION 02/23/2024 COLONOSCOPY OTHER SURGICAL HISTORY JAVIER TYMPANOSTOMY TUBE PLACEMENT SUBJECTIVE LIVES WITH: and daughter LIVING ENVIRONMENT: 2-story house with [address]. Bedroom is on upper level. PRIOR LEVEL OF FUNCTION: independent with ADLs, functional mobility with no AD and cooking. completes cleaning and laundry. 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 Enjoys to putt around the garage. No falls in past 6 months. EQUIPMENT OWNED: none EQUIPMENT USED: none SOCIAL SUPPORTS: able to provide 24 hour assistance upon DC. PATIENT/FAMILY GOAL: return home MENTAL STATUS/ORIENTATION: Alert and Oriented to x 4. Delayed responses. High anxiety resulting in hyperventilation. OBJECTIVE PRECAUTIONS: fall and cardiac/sternal APPEARANCE/POSTURE: sitting in recliner, arterial line, pacer, chest tube, reyes, 2LNC, call light in reach, no apparent distress. VITAL SIGNS: Resting BP: 159/53 Post-activity BP: - Resting heart rate: 123 Post-activity heart rate: 157 post-emetic episode. Resting O2 sat: 95% Post-activity O2 sat: 88% with hyper venitlation, will improve if able to prolong exhalation duringPLB. PAIN: Pre-therapy pain level: in the middle on a scale of a little, in the middle or a lot Pain location: chest Pain intervention: mobility, repositioning Post-therapy pain level/response to intervention: not stated LE ASSESSMENTS: Right LE ROM: WFL Left LE ROM: WFL Inferred from mobility due to anxiety and limited tolerance. Right LE strength: at least 3/5 Left LE strength: at least 3/5 Coordination: no ataxia noted Tone: patient with mild muscle tremors/fasciculations in BLE pre and post activity. MOBILITY: Bed mobility: mod assist of 1/min of another for sit to supine for safety Transfers: increased time needed to prepare for transfer due to patient anxiety, reports of dizziness, and emetic episode. Mod assist for sit to stand with w/w, min assist for stand to sit with w/w. Ambulation: min assist of 1/SBA of another for 20' with w/w, nonfunctional melly, very poor step length with nearly shuffling presentation. Balance/Special Tests: Static sitting balance: good Dynamic sitting balance: good- Static standing balance: fair+ Dynamic standing balance: fair AMPAC: Basic Mobility - 6 Click How much difficulty does the patient have: Turning over in bed: A little How much difficulty does the patient currently have: Sitting down and standing up from a chair witharms?: A little How much difficulty does the patient have: Moving from lying on back to sitting on the side of the bed?: A little How much difficulty does the patient have: Moving to and from a bed to a chair including wheelchair?: A little How much help does the patient currently need: Walk in hospital room?: A little How much help from another person does the patient currently need: Climbing 3-5 steps with a railing?: A little Total 6 Click Score (range 6-24): 18 6 click interpretation: AM-PAC 6 Click scores > 18 = Likely home discharge AM-PAC 6 Click scores < 18 = Likely require inpatient rehab or alf placement at discharge APPEARANCE/POSTURE (end of session): supine in bed, all aforementioned lines intact, call light in reach, no apparent distress. RN, Radha and Carole, given handoff and present throughout session. EDUCATION: bed mobility , therapeutic activity, functional transfer training, gait training , endurance training, safety , durable medical equipment education, post-op precautions, and role of PT evaluation RESPONSE TO EDUCATION: needs reinforcement ASSESSMENT PROBLEM LIST: pain, impaired balance , gait instability, decreased endurance, decreased independence with ADLs , orthopedic restrictions , decreased safety awareness, and medical complications BARRIERS TO LEARNING: Physical and Emotional BARRIERS TO DISCHARGE: Pain, Limited safety awareness, Limited insight into deficits, Decreased endurance, Lower extremity weakness, Medical complications, Stairs at home, and Skin Care REHAB POTENTIAL/PROGNOSIS: good PLAN PT Discharge Recommendations this date: PT Recommendation/Plan: Home with 24 hour supervision, Home Health PT Patient at high risk for: Falls, Readmission, Injury due to decreased ability to care for self, Injury due to reduced functional status, Injury due to balance deficits, Injury at home as patient has not returned to prior level of function, Developing secondary complications: poor health management,Prolonged dependence for self care tasks, Difficulty maintaining orthopedic restrictions, Improper u se of DME Treatment Plan/Interventions: acute PT to address the above deficits PT Frequency during current admission: 3-5x/wk Equipment Recommendations: wheeled walker Refer to multi-disciplinary care plan section for PT specific goals. If this is the last note, please consider this the discharge summary. Multi-Disciplinary Problems (from Physical Therapy) Active Problems Problem: PT Misc Start Date: 03/24/24 Goal Start Date Expected End Date End Date Patient to perform bed mobility with independence. 03/24/24 03/31/24 -- Goal Start Date Expected End Date End Date Patient to perform functional transfers with most appropriate device MOD I. 03/24/24 03/31/24 -- Goal Start Date Expected End Date End Date Patient to ambulate 250 feet with most appropriate device MOD I. 03/24/24 03/31/24 -- Goal Start Date Expected End Date End Date Patient to navigate a flight of steps with handrail as needed MOD I. 03/24/24 03/31/24 -- Goal Start Date Expected End Date End Date Patient to verbalize and demonstrate post-op precautions throughout mobility independently including correct use of incentive spirometer. 03/24/24 03/31/24 -- * Tam Arias NP - 03/24/2024 7:13 AM CDTAssociated Order(s): Critical Care Post-Procedure Diagnose(s): Aortic stenosis, severe Images from the original note were not included. Critical Care Medicine Daily Progress Team: Community AM Subjective Patient is a 58 y.o. y/o male admitted on 03/22/2024 5:30 AM with the following indication(s) for ICU care s/p Mechanical AVR Interval History: - Afib RVR: amio bolus and drip - Holding AC today - Increase Diltiazem and Metoprolol doses - 40mg Lasix - Potassium and Phos repletion - DC Chest tubes, Overgaard, Reyes catheter HPI 58 yo male with worsening SOB and fatigue with exertion x1 year. Admitted to ICU s/p planned AVR with Dr. Baldwin. Uncomplicated OR course, AVR with 23mm Morro, easy airway, received 750ml cell saver, 2100ml crystalloid, was noted to be oozy at the end of the case. Upon arrival to ICU was off pressors, had 140ml CT output, and plt 85 for which he received 1u plts. PMH: aortic stenosis, sleep apnea (CPAP compliant), paroxysmal atrial fibrillation, SVT, current smoker, and alcohol abuse with history of sz and withdrawal (per chart review has been sober x1 year),anx/depression, HTN/HLD, HFpEF EF 60-70%, TIA Hospital Course 03/22 [facility] AVR, NE/vaso/ epi/ 2 prbc, 1 ffp, 1 plt, 2 cryo Scheduled Medications: acetaminophen, 1,000 mg, oral, Q6H CHAVO albuterol, 2.5 mg, nebulization, Q6H CHAVO (RT) aspirin, 81 mg, oral, Daily buPROPion SR, 150 mg, oral, BID dilTIAZem CD/XR/XT, 120 mg, oral, Daily with dinner famotidine, 20 mg, intravenous, Daily insulin lispro, 0-10 Units, subcutaneous, 5x daily (with meals, nightly, & 0200) lidocaine, 2 patch, transdermal, Q24H methocarbamoL, 500 mg, oral, TID metoprolol tartrate, 12.5 mg, oral, BID polyethylene glycol, 17 g, oral, Daily QUEtiapine, 50 mg, oral, Nightly senna-docusate, 2 tablet, oral, BID sodium chloride 0.9%, 0.5-20 mL, intra-catheter, Q8H CHAVO Continuous Medications: clevidipine, 0-32 mg/hr, Last Rate: 5 mg/hr (03/24/24 0620) dexmedeTOMIDine, 0-1.5 mcg/kg/hr, Last Rate: Stopped (03/23/24 1320) EPINEPHrine, 0-0.2 mcg/kg/min, Last Rate: Stopped (03/23/24 0645) norepinephrine, 0-2 mcg/kg/min, Last Rate: Stopped (03/23/24 1430) sodium chloride 0.9%, 10 mL/hr sodium chloride 0.9%, 20 mL/hr, Last Rate: 20 mL/hr (03/24/24 0620) sodium chloride 0.9%, 3-12 mL/hr, Last Rate: 10 mL/hr (03/24/24 06) vasopressin, 0.04 Units/min, Last Rate: Stopped (03/23/24 1430) Medications Discontinued During This Encounter Medication Reason vancomycin (VANCOCIN) solution Patient Discharge sodium chloride 0.9% irrigation Patient Discharge ceFAZolin (ANCEF) injection Patient Discharge ceFAZolin (ANCEF) 1 gram/10 mL in sterile water (premix) 2,000 mg Patient Transfer vancomycin 1500 mg/250 mL in sodium chloride 0.9% (premix) 1,500 mg Patient Transfer sodium chloride 0.9% flush 0.5-20 mL Patient Transfer Carrier Fluids for Secondary Infusion - 0.9% Sodium Chloride Patient Transfer vancomycin 1,000 mg/200 mL in dextrose 5% (premix) 1,000 mg norepinephrine in dextrose 5% (LEVOPHED) 8,000 mcg/250 mL (32 mcg/mL) infusion (premix) oxyCODONE (ROXICODONE) tablet 5 mg Lactated Ringer's (LR) infusion acetaminophen (TYLENOL) 32 mg/mL oral liquid 1,000 mg acetaminophen (TYLENOL) suppository 650 mg aspirin chewable tablet 81 mg propofoL (DIPRIVAN) 10 mg/mL IV fentaNYL (SUBLIMAZE) preservative free injection 50 mcg insulin regular in 0.9% sodium chloride (MYXREDLIN) 100 unit/100 mL (1 unit/mL) infusion (premix) dextrose (D10W) 10% bolus 1-500 mL metoprolol tartrate (LOPRESSOR) immediate release tablet 12.5 mg clevidipine (CLEVIPREX) 25 mg/50 mL (0.5 mg/mL) infusion (premix) dilTIAZem (CARDIZEM) tablet 120 mg Other PRN Medications: sodium chloride 0.9% dextrose OR dextrose glucagon hydrALAZINE magnesium sulfate oxyCODONE potassium chloride prochlorperazine sodium chloride 0.9% sodium chloride 0.9% Objective Vitals: Most Recent: Vitals: 03/24/24 0500 BP: Pulse: 92 Resp: 25 Temp: SpO2: 95% 24hr Min/Max: Temp Min: 37 ??C (98.6 ??F) Max: 37.1 ??C (98.8 ??F) Pulse Min: 75 Max: 112 BP Min: 121/50 Max: 178/84 Resp Min: 11 Max: 31 SpO2 Min: 92 % Max: 100 % LDA: Introducer 03/22/24 Right Internal jugular (Active) Placement Date/Time: 03/22/24 (c) 0858 Hand Hygiene Performed: Yes Orientation: Right Location: Internal jugular Description (optional): multi-lumen access catheter (MAC) Number of days: 0 PA Catheter 8 Fr. Right Other (Comment) (Active) Placement Date/Time: 03/22/24 (c) 0858 Site Prep: Chlorhexidine Sheath Size: 8 Fr. Line Orientation: Right Sheath Insertion Site: Other (Comment) Number of days: 0 Arterial Line 03/22/24 Left Radial (Active) Placement Date/Time: 03/22/24 (c) 0855 Size: 20 G Orientation: Left Location: Radial Securement Method: Taped;Transparent dressing Number of days: 0 ETT ETT - single 8 mm (Active) Placement Date/Time: 03/22/24 (c) 0858 Mask Ventilation: Vent by mask Technique: Direct laryngoscopy ETT Type: ETT - single Single Lumen Tube Size: 8 mm Cuffed: Yes Laryngoscope: Crystal Blade Size: 4 Location: Oral Grade View: Full view o... Number of days: 0 Urethral Catheter Double-lumen;Straight-tip (Active) Placement Date/Time: 03/22/24 0816 Inserted by: Venkat Yeager RN Catheter Type: (c) Double-lumen;Straight-tip Tube Size (Fr.): 16 Fr Catheter Balloon Size: 10 mL Urine Returned: Yes Number of days: 0 Y Chest Tube A and B A Mediastinal 28 Fr. B Right Pleural 24 Fr. (Active) Placement Date/Time: 03/22/24 1043 Inserted by: Dr. Baldwin Tube Number A: A Chest Tube Location A: Mediastinal Size (Fr.) A: 28 Fr. Tube Number B: B Chest Tube Orientation B: Right Chest Tube Location B: Pleural Size (Fr.) B: (c) 24 Fr. Chest T... Number of days: 0 Vent settings: Adult Vent Mode: Pressure support Ventilation FiO2 (%): [40 %] 40 % S RR: [16] 16 S VT: [600 mL] 600 mL PEEP/CPAP/EPAP (cm H2O): [5 cm H20] 5 cm H20 Pressure Support (cm H2O): [5 cm H20] 5 cm H20 MAP (cmH2O): [6.7-9.1] 7.2 Hemodynamic parameters for last 24 hours: PAP: (11-35)/(3-16) 17/6 CVP: [0 mmHg-262 mmHg] 262 mmHg CO: [5.5 L/min-9.1 L/min] 8.7 L/min CI: [2.8 L/min/m2-4.6 L/min/m2] 4.4 L/min/m2 I/O: Date 03/23/24699 - 03/24/24 0603/24/24699 - 03/25/24 0659 Shift 1528-0240 3503-0238 24 Hour Total 7642-0431 3080-6083 24 Hour Total INTAKE P.O. 300 310 610 I.V.(mL/kg) 657.1(8.6) 378.1(4.9) 1035.2(13.3) Blood 250 250 IV Piggyback 250 250 Shift Total(mL/kg) 1457.1(19.1) 688.1(8.8) 2145.2(27.5) OUTPUT Urine(mL/kg/hr) 535(0.6) 670(0.7) 1205(0.6) Chest Tube 60 20 80 Shift Total(mL/kg) 595(7.8) 690(8.9) 1285(16.5) NET 862.1 -1.9 860.2 Weight (kg) 76.4 77.9 77.9 77.9 77.9 77.9 Physical Exam: Neuro: Aox 3, no focal deficits HEENT: Head NC/AT, face symmetrical, PEERL CV: atrial fibrillation, S1 and S2 without M/G/R Pulm: Nasal cannula, LCTA. CT with serosang output, no airleak GI: Abdomen Soft/ND, normoactive bowel sounds : Reyes to gravity Skin: Warm, dry, good turgor Extremities: No edema, PPP Wounds: sternotomy dressing CDI Drains: MT/CT to 20cm suction Access: Rt IJ MAC/PAC, Rt IJ CVC, radial A.Line Wound 03/22/24 Incision Chest Mid-line (Active) Date First Assessed/Time First Assessed: 03/22/24 1157 Primary Wound Type: Incision Location: ChestLocation Orientation: Mid-line Assessments 03/22/2024 11:57 AM 03/24/2024 4:10 AM Dressing Status Clean/Dry/Intact Clean/Dry/Intact Site Assessment -- Unable to assess Shape & Pattern Linear -- Kasey-wound Assessment -- Color appropriate for ethnicity Dressing Silver dressing Silver dressing Closure -- Unable to assess No associated orders. Wound 03/22/24 Incision Chest Medial (Active) Date First Assessed/Time First Assessed: 03/22/24 1154 Present on Original Admission: No Primary Wound Type: Incision Location: (c) Chest Location Orientation: Medial Assessments 03/22/2024 12:20 PM Dressing Status Clean/Dry/Intact Site Assessment Clean Shape & Pattern Other (Comment) Dressing [place] dressing No associated orders. Lab/Radiology/Diagnostic Review: Chem/LFT Lab History Latest Ref Rng & Units 03/18/2024 12:29 03/22/2024 03/23/2024 03/24/2024 04:06 Labs-Chem/LFT Sodium 135 - 145 mmol/L 140 145 141 140 Creatinine 0.80 - 1.30 mg/dL 0.65 0.85 0.59 0.68 CrCl- Actual Body Weight (Cockcroft-Gault) 146.5 104.9 151.1 133.7 Details More abnormal values are hidden. Newest values shown. Go to activity for more data. More values are hidden. Newest values shown. Go to activity for more data. Hematology Lab History Latest Ref Rng & Units 03/18/2024 12:29 03/22/2024 03/23/2024 03/24/2024 04:06 Labs - Hematology WBC 3.8 - 9.9 K/cumm 7.2 12.8 9.9 10.9 Total Hb, POC 13.0 - 17.5 g/dL 13.6 9.3 7.1 7.1 Hct 38.9 - 50.3 % 39.3 26.4 20.0 20.0 Plt 150 - 400 K/cumm 140 101 57 54 Details More abnormal values are hidden. Newest values shown. Go to activity for more data. I have personally reviewed the telemetry strips over the past 12h. I have personally reviewed the above labs and microbiology results. I have personally reviewed the radiology exams in the past 24h. Assessment and plan: NEURO: # Acute pain - Tylenol, Lidoderm, Oxycodone and Fentanyl prn for pain. - Robaxin as adjunct to pain management - Continue to closely monitor pain level and modify the regimen appropriately. # TIA, history of - 03/09: pt with left arm and leg numbness, HCT without acute process, resolution of symptoms - home regimen: asa and statin # anxiety, chronic # depression, chronic - home regimen: seroquel, no recent refill of bupropion per chart review - resume when appropriate # restless leg syndrome, chronic # insomnia, chronic - home regimen: lunesta, ropinirole - hold home regimen in the acute setting - resume ropinirole when appropriate # alcohol use disorder, history of - per chart review, pt with prior hx of alcohol use, with history of withdrawal and seizure x1 - per pt report, has been sober x1 year - continue to monitor CV: # aortic stenosis, chronic #post op cardiogenic and vasoplegic shock, expected - CTS Primary - 03/22: s/p AVR with Dr. Baldwin - Pre-operative and postoperative JAVIER w/ EF 60% - NE/Vaso for MAP >65 - Epi for CI >2.2 - Epicardial wires in place, pacer VVI backup - Thoracostomy tubes/mediastinal tubes in place x2 (mediastinal x1, left pleural x1), monitor output, will notify CTS for output > 200 mL/hr for 2-4 hours - PAC in place, noted on CXR - ASA daily - resume statin per CTS #small pericardial effusion Noted on POCUS, ~1cm, d/w CTS, no early diastolic collapse of RV Frequent stripping chest tubes to prevent clots Frequent POCUS to evaluate effusion Monitor CVP and PA pressures closely CTS aware #Atrial fibrillation, new onset # paroxysmal SVT, chronic - Amiodarone bolus and start 24 hrs of drip - home regimen: diltiazem, metoprolol, warfarin - resume regimen per CTS - optimize electrolytes # HTN, chronic # HLD, chronic - home regimen: rosuvastatin, metoprolol - resume per CTS - goal normotension postoperatively PULM: #Right sided effusion, presumed hemothorax - Improved after affressice stripping of CT-s - CTS aware - Continue to monitor - CT discontinued 03/24 # NICOLE, chronic - compliant with CPAP - CPAP at night once extubated - NICOLE precautions # current smoker - pulm hygiene as above - offer smoking cessation education when appropriate GI: Diet: NPO with plans to advance diet once extubated Bowel regimen: docusate, senna PUD PPx: famotidine ENDO: # Glycemic Control - Insulin gtt DC-d and SSI started - continue to monitor BG RENAL: - Cr 0.74, UOP adequate - Diuresis per CTS - continue to follow creatinine, BUN, urine output, electrolytes - Electrolyte repletion for goal K > 4, Mg > 2 #Hypophosphatemia - Scheduled Phos repletion - Check level with PM labs HEME: # ABLA # thrombocytopenia - s/p PRBCx2, FFPx1, pltx1, 2 cryo post-op - Monitor CT output - ongoing reassessment in the immediate post-operative period - Continue to monitor on CBC, transfuse as clinically indicated - Hgb 9.3>9.5, Plt 101>96 ID: # Leukocytosis - Likely reactive in the setting of cardiac surgery - Continue to follow fever curve and WBC - Complete perioperative ABX - WBC 12.8, afwebrile INTENSIVE CARE UNIT STANDARDS OF CARE: DVT ppx: Lovenox ppx starting tonight, SCDs Access: left radial arterial line, PIVs Goals of care: full code Assessment and plan has been reviewed with attending, Dr. Krishna Arias NP Critical Care Performed by: Tam Arias NP Authorized by: Tam Arias NP CRITICAL CARE: Team: DWAYNE Shift: AM Level of Billing: Critical Care My time spent with this patient was 45 minutes: Critical Provider Statement: I have seen and examined the patient on this day of service. I have reviewed and confirmed the history, physical exam, laboratory and radiologic data as documented in thesigned ICU note. I have reviewed and discussed my treatment plan with the ICU team and other medical/bridal stylist sales consultant staff, making frequent assessments and decisions regarding this patient's complex medical care. Critical Care time was exclusive of time spent performing separately billed procedures, treating other patients, and teaching. This time was in addition to and separate from critical care provided by other practitioners in my group on this day of service. Critical Care was necessary to treat or prevent imminent or life-threatening deterioration of the following conditions: I spent time reviewing and interpreting data from bedside monitors, laboratory results, and imaging, I spent time discussing the management of this critically ill patient with consultants and the medical staff and I spent time documenting in the medical record Cosigned by Dequan Keller MD at 03/24/2024 4:15 PM CDT * Erika Villanueva PA - 03/23/2024 11:23 PM CDTAssociated Order(s): Critical Care Post-Procedure Diagnose(s): Aortic stenosis, severe Images from the original note were not included. Critical Care Medicine Daily Progress Team: Community AM Subjective Patient is a 58 y.o. y/o male admitted on 03/22/2024 5:30 AM with the following indication(s) for ICU care s/p Mechanical AVR Interval History: Cleviprex for BP control HPI 58 yo male with worsening SOB and fatigue with exertion x1 year. Admitted to ICU s/p planned AVR with Dr. Baldwin. Uncomplicated OR course, AVR with 23mm Morro, easy airway, received 750ml cell saver, 2100ml crystalloid, was noted to be oozy at the end of the case. Upon arrival to ICU was off pressors, had 140ml CT output, and plt 85 for which he received 1u plts. PMH: aortic stenosis, sleep apnea (CPAP compliant), paroxysmal atrial fibrillation, SVT, current smoker, and alcohol abuse with history of sz and withdrawal (per chart review has been sober x1 year),anx/depression, HTN/HLD, HFpEF EF 60-70%, TIA Hospital Course 03/22 [facility] AVR, NE/vaso/ epi/ 2 prbc, 1 ffp, 1 plt, 2 cryo Scheduled Medications: acetaminophen, 1,000 mg, oral, Q6H CHAVO albuterol, 2.5 mg, nebulization, Q6H CHAVO (RT) aspirin, 81 mg, oral, Daily buPROPion SR, 150 mg, oral, BID famotidine, 20 mg, intravenous, Daily insulin lispro, 0-10 Units, subcutaneous, 5x daily (with meals, nightly, & 0200) ketorolac, 30 mg, intravenous, Q6H CHAVO lidocaine, 2 patch, transdermal, Q24H methocarbamoL, 500 mg, oral, TID metoprolol tartrate, 12.5 mg, oral, BID polyethylene glycol, 17 g, oral, Daily QUEtiapine, 50 mg, oral, Nightly senna-docusate, 2 tablet, oral, BID sodium chloride 0.9%, 0.5-20 mL, intra-catheter, Q8H CHAVO Continuous Medications: clevidipine, 0-32 mg/hr dexmedeTOMIDine, 0-1.5 mcg/kg/hr, Last Rate: Stopped (03/23/24 1320) EPINEPHrine, 0-0.2 mcg/kg/min, Last Rate: Stopped (03/23/24 0645) norepinephrine, 0-2 mcg/kg/min, Last Rate: Stopped (03/23/24 1430) sodium chloride 0.9%, 10 mL/hr sodium chloride 0.9%, 20 mL/hr, Last Rate: 20 mL/hr (03/24/24 0000) sodium chloride 0.9%, 3-12 mL/hr, Last Rate: 10 mL/hr (03/23/24 0922) vasopressin, 0.04 Units/min, Last Rate: Stopped (03/23/24 1430) Medications Discontinued During This Encounter Medication Reason ??? vancomycin (VANCOCIN) solution Patient Discharge ??? sodium chloride 0.9% irrigation Patient Discharge ??? ceFAZolin (ANCEF) injection Patient Discharge ??? ceFAZolin (ANCEF) 1 gram/10 mL in sterile water (premix) 2,000 mg Patient Transfer ??? vancomycin 1500 mg/250 mL in sodium chloride 0.9% (premix) 1,500 mg Patient Transfer ??? sodium chloride 0.9% flush 0.5-20 mL Patient Transfer ??? Carrier Fluids for Secondary Infusion - 0.9% Sodium Chloride Patient Transfer ??? vancomycin 1,000 mg/200 mL in dextrose 5% (premix) 1,000 mg ??? norepinephrine in dextrose 5% (LEVOPHED) 8,000 mcg/250 mL (32 mcg/mL) infusion (premix) ??? oxyCODONE (ROXICODONE) tablet 5 mg ??? Lactated Ringer's (LR) infusion ??? acetaminophen (TYLENOL) 32 mg/mL oral liquid 1,000 mg ??? acetaminophen (TYLENOL) suppository 650 mg ??? aspirin chewable tablet 81 mg ??? propofoL (DIPRIVAN) 10 mg/mL IV ??? fentaNYL (SUBLIMAZE) preservative free injection 50 mcg ??? insulin regular in 0.9% sodium chloride (MYXREDLIN) 100 unit/100 mL (1 unit/mL) infusion (premix) ??? dextrose (D10W) 10% bolus 1-500 mL ??? metoprolol tartrate (LOPRESSOR) immediate release tablet 12.5 mg ??? clevidipine (CLEVIPREX) 25 mg/50 mL (0.5 mg/mL) infusion (premix) PRN Medications: ??? sodium chloride 0.9% ??? dextrose OR dextrose ??? glucagon ??? hydrALAZINE ??? magnesium sulfate ??? oxyCODONE ??? potassium chloride ??? prochlorperazine ??? sodium chloride 0.9% ??? sodium chloride 0.9% Objective Vitals: Most Recent: Vitals: 03/24/24 0208 BP: Pulse: Resp: Temp: SpO2: 94% 24hr Min/Max: Temp Min: 37 ??C (98.6 ??F) Max: 37.1 ??C (98.8 ??F) Pulse Min: 75 Max: 104 BP Min: 121/50 Max: 178/84 Resp Min: 11 Max: 26 SpO2 Min: 92 % Max: 100 % LDA: Introducer 03/22/24 Right Internal jugular (Active) Placement Date/Time: 03/22/24 (c) 08 Hand Hygiene Performed: Yes Orientation: Right Location: Internal jugular Description (optional): multi-lumen access catheter (MAC) Number of days: 0 PA Catheter 8 Fr. Right Other (Comment) (Active) Placement Date/Time: 03/22/24 (c) 0858 Site Prep: Chlorhexidine Sheath Size: 8 Fr. Line Orientation: Right Sheath Insertion Site: Other (Comment) Number of days: 0 Arterial Line 03/22/24 Left Radial (Active) Placement Date/Time: 03/22/24 (c) 0855 Size: 20 G Orientation: Left Location: Radial Securement Method: Taped;Transparent dressing Number of days: 0 ETT ETT - single 8 mm (Active) Placement Date/Time: 03/22/24 (c) 0858 Mask Ventilation: Vent by mask Technique: Direct laryngoscopy ETT Type: ETT - single Single Lumen Tube Size: 8 mm Cuffed: Yes Laryngoscope: Crystal Blade Size: 4 Location: Oral Grade View: Full view o... Number of days: 0 Urethral Catheter Double-lumen;Straight-tip (Active) Placement Date/Time: 03/22/24 0816 Inserted by: Venkat Yeager RN Catheter Type: (c) Double-lumen;Straight-tip Tube Size (Fr.): 16 Fr Catheter Balloon Size: 10 mL Urine Returned: Yes Number of days: 0 Y Chest Tube A and B A Mediastinal 28 Fr. B Right Pleural 24 Fr. (Active) Placement Date/Time: 03/22/24 1043 Inserted by: Dr. Baldwin Tube Number A: A Chest Tube Location A: Mediastinal Size (Fr.) A: 28 Fr. Tube Number B: B Chest Tube Orientation B: Right Chest Tube Location B: Pleural Size (Fr.) B: (c) 24 Fr. Chest T... Number of days: 0 Vent settings: Adult Vent Mode: Pressure support Ventilation FiO2 (%): [40 %] 40 % S RR: [16] 16 S VT: [600 mL] 600 mL PEEP/CPAP/EPAP (cm H2O): [5 cm H20] 5 cm H20 Pressure Support (cm H2O): [5 cm H20] 5 cm H20 MAP (cmH2O): [6.7-15] 7.2 Hemodynamic parameters for last 24 hours: PAP: (11-45)/(3-19) 17/6 CVP: [0 mmHg-262 mmHg] 262 mmHg CO: [4.6 L/min-9.1 L/min] 8.7 L/min CI: [2.3 L/min/m2-4.6 L/min/m2] 4.4 L/min/m2 I/O: Physical Exam: Neuro: Alert, oriented, able to follow simple commands, PERRL 3mm, CAM (-) Cardiovascular: RRR, periphery warm with palpable pulses, no significant edema Pulmonary: Breath sounds clear to auscultation bilaterally, diminished bases, normal respiratory rate and effort GI: Abdomen obese, soft, non-distended, bowel sounds active : Reyes in place draining clear yellow urine Skin: Warm, dry, Sternal incision with OR dressing clean, dry, intact. Lab/Radiology/Diagnostic Review: Assessment and plan: NEURO: Acute pain - Tylenol, Lidoderm, Oxycodone . - Robaxin as adjunct to pain management TIA, history of - 03/09: pt with left arm and leg numbness, HCT without acute process, resolution of symptoms - home regimen: asa and statin anxiety, chronic depression, chronic - home regimen: seroquel, no recent refill of bupropion per chart review - resume when appropriate restless leg syndrome, chronic insomnia, chronic - home regimen: lunesta, ropinirole - hold home regimen in the acute setting - resume ropinirole when appropriate alcohol use disorder, history of - per chart review, pt with prior hx of alcohol use, with history of withdrawal and seizure x1 - per pt report, has been sober x1 year CV: aortic stenosis, chronic post op cardiogenic and vasoplegic shock, expected - 03/22: s/p AVR with Dr. Baldwin - postoperative JAVIER w/ EF 60% -- ASA daily - resume statin per CTS small pericardial effusion Noted on POCUS, ~1cm, d/w CTS, no early diastolic collapse of RV Frequent stripping chest tubes to prevent clots Frequent POCUS to evaluate effusion Monitor CVP and PA pressures closely CTS aware paroxysmal SVT, chronic - home regimen: diltiazem, metoprolol, warfarin - resume regimen per CTS - optimize electrolytes HTN, chronic HLD, chronic - home regimen: rosuvastatin, metoprolol - resume per CTS - cleviprex for CTS for BP goals PULM: Short-term Mechanical Ventilation with Anticipated Extubation - resolved Right sided effusion, presumed hemothorax - Improved after affressice stripping of CT-s - CTS aware - Continue to monitor NICOLE, chronic - compliant with CPAP - CPAP at night once extubated - NICOLE precautions current smoker - pulm hygiene as above - offer smoking cessation education when appropriate GI: - no active ICU issues ENDO: Glycemic Control - Insulin gtt DC-d and SSI started - continue to monitor BG RENAL: - Diuresis per CTS - continue to follow creatinine, BUN, urine output, electrolytes HEME: ABLA thrombocytopenia - s/p PRBCx2, FFPx1, pltx1, 2 cryo post-op - Monitor CT output - Continue to monitor on CBC, transfuse as clinically indicated ID: Leukocytosis - Likely reactive in the setting of cardiac surgery - Continue to follow fever curve and WBC - Complete perioperative ABX Assessment and plan has been reviewed with attending. FLASH Suarez Critical Care Performed by: Erika Villanueva PA Authorized by: Erika Villanueva PA CRITICAL CARE: Team: DWAYNE Shift: PM Level of Billing: Critical Care My time spent with this patient was 45 minutes: Critical Provider Statement: I have seen and examined the patient on this day of service. I have reviewed and confirmed the history, physical exam, laboratory and radiologic data as documented in thesigned ICU note. I have reviewed and discussed my treatment plan with the ICU team and other medical/bridal stylist sales consultant staff, making frequent assessments and decisions regarding this patient's complex medical care. Critical Care time was exclusive of time spent performing separately billed procedures, treating other patients, and teaching. This time was in addition to and separate from critical care provided by other practitioners in my group on this day of service. Critical Care was necessary to treat or prevent imminent or life-threatening deterioration of the following conditions: I spent time reviewing and interpreting data from bedside monitors, laboratory results, and imaging, I spent time discussing the management of this critically ill patient with consultants and the medical staff and I spent time documenting in the medical record Cosigned by Carlos Alberto Sandoval MD at 03/30/2024 9:59 PM CDT * Melvin Schaefer OT - 03/23/2024 1:55 PM CDT Occupational Therapy NOTE / SESSION TYPE: Initial Evaluation Patient Name: Stephan Madden Date of : 1965 Age / Sex: 58 y.o. / male Room: [place] [address] Admit Date: 03/22/2024 Date of Service: 03/23/24 Time In: 1356 Time Out: 1425 Primary Diagnosis: Aortic valve stenosis HPI: Stephan Madden is a 58 y.o. male who presents with SOB and fatigue with exertion for 1 year. Admitted to ICU s/p planned AVR with Dr. Baldwin on 03/22 Notable History: aortic stenosis, sleep apnea (CPAP compliant), paroxysmal atrial fibrillation, SVT, current smoker, and alcohol abuse with history of sz and withdrawal (per chart review has been sober x1 year), anx/depression, HTN/HLD, HFpEF EF 60-70%, TIA Past Medical History: Diagnosis Date Arthritis Atrial fibrillation (CMS/HCC) ([facility]) Depression H/O ETOH abuse went to rehab for 3 months Heart murmur Hypertension Nonrheumatic aortic (valve) stenosis Paroxysmal SVT (supraventricular tachycardia) ([facility]) Seizures ([facility]) 1 x 3-4 years ago d/t ETHO Sleep apnea uses cpap SOB (shortness of breath) end of day chest feels tight and uncomfortable TIA (transient ischemic attack) hosp 03/08/2024 - 03/10/2024 Past Surgical History: Procedure Laterality Date CARDIAC CATHETERIZATION 02/23/2024 COLONOSCOPY OTHER SURGICAL HISTORY JAVIER TYMPANOSTOMY TUBE PLACEMENT Precautions (Including Weight-Bearing): Fall risk, Sternal precautions, and Aspiration precautions Caregiver Present for Session (Yes or No): Yes: family SUBJECTIVE: Patient Comment: It feels like I can't breath. Pain Assessment: Pre-therapy pain level: 3 / 10 Pain location: sternal Pain intervention(s): Repositioned Post-therapy pain level: 3 / 10 Pain scale used: 0-10 SCALE Prior Living Environment and Level of Function: Lives with: and daughter Receives assistance from / other social supports available: able to provide 24 hour assistance Living environment (Type of residence / Entrance accessibility): 2-story house, number of outside stairs: 1 [address], number of inside stairs: upper level where bedroom is located Bathroom location and setup: Walk-in shower Prior level of function: indep in ADLs, functional mobility without a device, indep in cooking. completes cleaning and laundry. 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 Patient / Family goal(s): return home Fall(s) within the last 6 months: No OBJECTIVE: Appearance: Presentation upon OT arrival: Patient Supine with head of bed elevated Presentation upon OT departure: Patient Sitting in bedside recliner Bed / chair alarm in place and activated upon OT departure: No Call light within arms reach of patient at end of session: Yes Completed patient handoff and notified COURTESY DRIVER / RN, name: Thu, of patient's location and functional status upon completion of session Vital Signs: Heart rate at rest: 90 bpm SPO2 at rest: 100 % Heart rate with activity: 90 bpm SPO2 with activity: 100 % Oxygen LPM: 4 L Blood pressure at rest: 169/49 Blood pressure with activity: 178/51 Cognitive / Perceptual Assessment: A&Ox4 UE ROM / Strength / Coordination: (A)ROM - Right: WNL except shoulders 90 degrees for sternal precautions Strength - Right: 4/5 except shoulders 3-/5 (A)ROM - Left: WNL except shoulders 90 degrees for sternal precautions Strength - Left: 4/5 except shoulders 3-/5 Hand Dominance: Right Furniture Finisher Strength (Right) good Furniture Finisher Strength (Left): good Right Serial Opposition: Intact Left Serial Opposition: Intact Balance: Static sitting balance: good Dynamic sitting balance: good- Static standing balance: good- Dynamic standing balance: good- Mobility / Transfers: Bed mobility (Components & Assistance): supine > sitting EOB with mod assist x2 Transfer(s): sitting EOB > sitting in recliner with min x2 Activities of Daily Living / Living Skills: Footwear: Patient completed footwear of Footie(s) while Supine with head of bed elevated with overall Dependent assistance / two or more helpers. Patient required assistance for donning / doffing right sock / footie and donning / doffing left sock / footie Other: Patient completed grooming of washing face with set-up assistance. ASSESSMENT: Rehab Potential (Prognosis): good Problem List: Patient has impairments including: Decreased UE ROM , Decreased mobility, Decreased endurance, Decreased ADL independence, and Pain. Barriers to Discharge: Pain, Decreased endurance, Upper extremity weakness, Lower extremity weakness, and Stairs at home PLAN: OT Discharge Recommendations this date: OT RECOMMENDATIONS: OT Recommendation: Home with 24 hour supervision, Home Health OT Patient at risk for: Patient at high risk for: Injury due to reduced functional status, Injury at home as patient has not returned to prior level of function Justification of discharge recommendations flow sheet completed: Yes Frequency of therapy:OT Frequency during current admission: 3-5x/wk Intervention / Education needs: ADL training, Compensatory ADL strategies, Balance activities, Functional transfer training, Safety education, Pursed lip breathing / Relaxation techniques, UE home exercise program education, Family training as appropriate, and Energy conservation techniques Education provided: Patient and family has been educated on Role of OT, OT plan of care, ADL training, Bed mobility training, Functional transfer training, Pursed lip breathing / Relaxation techniques, and sternal precautions. Individual(s) verbalized understanding. Short Term Goals / Care Plan: Multi-Disciplinary Problems (from Occupational Therapy) Active Problems Problem: [place] [facility] [place]: 03/23/24 Goal Start Date Expected End Date End Date OT [facility] 1 03/23/24 03/30/24 -- Goal Details: Patient will complete UE / LE dressing with supervision assistance one time Goal Start Date Expected End Date End Date OT [facility] 2 03/23/24 03/30/24 -- Goal Details: Patient will complete functional transfers with supervision assistance using least restrictive device one time Goal Start Date Expected End Date End Date OT [facility] 3 03/23/24 03/30/24 -- Goal Details: Patient will complete chest mobilization HEP with min verbal cues to increase ADL tolerance one itme Goal Start Date Expected End Date End Date OT [facility] - Misc 4 03/23/24 03/30/24 -- Goal Details: Patient will complete grooming x3 tasks with supervision assistance one time Goal Start Date Expected End Date End Date OT [facility] - Misc 5 03/23/24 03/30/24 -- Goal Details: Patient will complete energy conservation / PLB techniques with min verbal cues to increase activity tolerance one time If this is the last note, consider this the discharge summary Melvin Schaefer OT 03/23/24 * Angie Vega CRTT - 03/23/2024 11:09 AM CDT Patient extubated with no incident and placed on 4L NC SP02 100% will continue to monitor. * Odin Cartagena, PT - 03/23/2024 9:06 AM CDT Physical Therapy Medical cancel. Patient preparing for extubation. Will follow up when patient appropriate to participate in mobility evaluation. Odin Cartagena, PT 03/23/24 9:06 AM * Michelle Lopez NP - 03/23/2024 9:02 AM CDT CARDIOLOGY PROGRESS NOTE 03/23/2024 CHIEF COMPLAINT Status post AVR INTERVAL HISTORY Patient was requested to be seen in consultation by for severe aortic stenosis status post aortic valve replacement. Stephan Madden is a 58 y.o. male with hypertension, hyperlipidemia, PSVT, possible paroxysmal atrial fibrillation, history of alcohol abuse, TIA. Followed in the office by . Recently foundto have severe aortic stenosis. Seen by CT surgery, and presented for outpatient mechanical AVR. Patient is in the CVU, intubated and sedated. Had surgery earlier today. On Cleviprex, currently being weaned. On sedation. 03/23-patient lying in bed on nasal cannula. He was just extubated about 10 minutes ago. He is lethargic but arousable. Currently on Levophed and vasopressin drips. HOSPITAL MEDICATIONS No Known Allergies Scheduled Meds:acetaminophen, 1,000 mg, oral, Q6H CHAVO Or acetaminophen, 1,000 mg, feeding tube, Q6H CHAVO Or acetaminophen, 650 mg, rectal, Q6H CHAVO albuterol, 2.5 mg, nebulization, Q6H HCAVO (RT) aspirin, 81 mg, oral, Daily Or aspirin, 81 mg, feeding tube, Daily ceFAZolin, 1,000 mg, intravenous, Q8H famotidine, 20 mg, intravenous, Daily methocarbamoL, 500 mg, oral, TID polyethylene glycol, 17 g, oral, Daily senna-docusate, 2 tablet, oral, BID sodium chloride 0.9%, 0.5-20 mL, intra-catheter, Q8H CHAVO vancomycin, 15 mg/kg, intravenous, Q12H Continuous Infusions:clevidipine, 0-32 mg/hr, Last Rate: Stopped (03/22/24 1445) dexmedeTOMIDine, 0-1.5 mcg/kg/hr, Last Rate: 0.7 mcg/kg/hr (03/23/24 0830) EPINEPHrine, 0-0.2 mcg/kg/min, Last Rate: Stopped (03/23/24 0645) insulin regular, 0-30 Units/hr, Last Rate: 1.8 Units/hr (03/23/24 0900) Lactated Ringer's, 30 mL/hr, Last Rate: 30 mL/hr (03/22/24 0743) norepinephrine, 0-2 mcg/kg/min, Last Rate: 0.06 mcg/kg/min (03/23/24 0836) propofol, 0-50 mcg/kg/min, Last Rate: 10 mcg/kg/min (03/23/24 0813) sodium chloride 0.9%, 10 mL/hr sodium chloride 0.9%, 20 mL/hr, Last Rate: 20 mL/hr (03/22/24 1930) sodium chloride 0.9%, 3-12 mL/hr, Last Rate: 10 mL/hr (03/22/24 1620) vasopressin, 0.04 Units/min, Last Rate: 0.04 Units/min (03/23/24 0833) PRN Meds:. sodium chloride 0.9% dextrose fentaNYL magnesium sulfate oxyCODONE potassium chloride prochlorperazine sodium chloride 0.9% sodium chloride 0.9% REVIEW OF SYSTEMS ROS Review of systems limited due to patient's current mental status. LABS AND OTHER DIAGNOSTIC TESTS Lab Results Component Value Date WBC 14.5 (H) 03/23/2024 HGB 9.5 (L) 03/23/2024 HCT 27.0 (L) 03/23/2024 MCV 86.0 03/23/2024 Recent Labs Lab Units 03/23/24 0900 03/23/24 0220 03/23/24 0212 CO2 mmol/L -- -- 22 CREATININE mg/dL -- -- 0.74* CALCIUM mg/dL -- -- 9.1 GLUCOSE mg/dL -- -- 121 POC GLUCOSE MONITOR mg/dL 106 < > -- < > = values in this interval not displayed. No results found for: CHOL No results found for: HDL No results found for: LDLCALC No results found for: TRIG PHYSICAL EXAM Vitals: BP 141/53 Pulse 90 Temp 37.9 ??C (100.2 ??F) (Core) Resp 12 Ht 183 cm (6' 0.05 ) Wt 76.4 kg (168 lb 6.9 oz) SpO2 100% BMI 22.81 kg/m?? Physical Exam Vitals reviewed. Constitutional: Appearance: He is well-developed. Comments: Lethargic, arousable HENT: Head: Normocephalic and atraumatic. Nose: Nose normal. Eyes: Conjunctiva/sclera: Conjunctivae normal. Cardiovascular: Rate and Rhythm: Normal rate and regular rhythm. Pulmonary: Effort: Pulmonary effort is normal. Comments: Symmetric chest expansion Abdominal: General: There is no distension. Tenderness: There is no abdominal tenderness. Musculoskeletal: Right lower leg: No edema. Left lower leg: No edema. Skin: General: Skin is dry. Neurological: Comments: Lethargic, arousable Psychiatric: Comments: Lethargic, arousable ASSESSMENT -severe s/p AVR 23mm Morro mech valve -PSVT -hypertension -dyslipidemia -prior TIA PLAN/RECOMMENDATIONS -severe s/p AVR 23mm Morro mech valve, extubated earlier this morning (03/23). Continue managementper CTS and critical care team. -hypotension: Currently hypotensive on Levophed and vasopressin drips. Wean pressors as tolerated. -PSVT, monitor on telemetry. Add beta-tabitha when able to tolerate. -dyslipidemia, will plan to resume rosuvastatin -prior TIA, continue aspirin for now. Plan to resume warfarin per CT surgery -postop anemia/thrombocytopenia: Received PRBC x2, FFP x1, platelets x1, cryo x2 on 03/22. Continueto monitor. My total encounter time on 03/23/2024 was 16 minutes which was spent in the activities documented in the note. This includes time spent prior to the visit and after the visit in direct care of the patient. This time does not include time spent in any separately reportable services. Michelle Lopez NP Cosigned by Jolanta Quintero DO at 03/23/2024 1:01 PM CDT Associated attestation - Jolanta Quintero DO - 03/23/2024 1:01 PM CDT I personally performed a substantive portion of this patient encounter in conjunction with Michelle Lpoez NP. My impression/plan is --severe s/p AVR 23mm Leonidas mech valve, Extubated this a.m.. -hypotension, patient became more hypotensive overnight, on Levophed and vasopressin drips. Will continue to wean drips as tolerated. -PSVT, continue to monitor on telemetry. No episodes during this hospitalization. Will add beta-tabitha when able to tolerate -hypertension, currently hypotensive -dyslipidemia, Restart rosuvastatin when able to take oral meds -prior TIA, continue aspirin, resume warfarin when okay per CT surgery I spent 20 minutes of non-overlapping time managing the patient independent of Michelle Lopez NP today. * Hiren Ferrell PA - 03/23/2024 7:44 AM CDTAssociated Order(s): Critical Care Post-Procedure Diagnose(s): Aortic valve stenosis, etiology of cardiac valve disease unspecified Images from the original note were not included. Critical Care Medicine Daily Progress Team: Community AM Subjective Patient is a 58 y.o. y/o male admitted on 03/22/2024 5:30 AM with the following indication(s) for ICU care s/p Mechanical AVR Interval History: Passed SBT Extubated to [place] Insulin gtt DC-d HDSSI started HPI 58 yo male with worsening SOB and fatigue with exertion x1 year. Admitted to ICU s/p planned AVR with Dr. Baldwin. Uncomplicated OR course, AVR with 23mm Morro, easy airway, received 750ml cell saver, 2100ml crystalloid, was noted to be oozy at the end of the case. Upon arrival to ICU was off pressors, had 140ml CT output, and plt 85 for which he received 1u plts. PMH: aortic stenosis, sleep apnea (CPAP compliant), paroxysmal atrial fibrillation, SVT, current smoker, and alcohol abuse with history of sz and withdrawal (per chart review has been sober x1 year),anx/depression, HTN/HLD, HFpEF EF 60-70%, TIA Hospital Course 03/22 [facility] AVR, NE/vaso/ epi/ 2 prbc, 1 ffp, 1 plt, 2 cryo Scheduled Medications: acetaminophen, 1,000 mg, oral, Q6H CHAVO Or acetaminophen, 1,000 mg, feeding tube, Q6H CHAVO Or acetaminophen, 650 mg, rectal, Q6H CHAVO albuterol, 2.5 mg, nebulization, Q6H CHAVO (RT) aspirin, 81 mg, oral, Daily Or aspirin, 81 mg, feeding tube, Daily ceFAZolin, 1,000 mg, intravenous, Q8H famotidine, 20 mg, intravenous, Daily methocarbamoL, 500 mg, oral, TID polyethylene glycol, 17 g, oral, Daily senna-docusate, 2 tablet, oral, BID sodium chloride 0.9%, 0.5-20 mL, intra-catheter, Q8H CHAVO vancomycin, 15 mg/kg, intravenous, Q12H Continuous Medications: clevidipine, 0-32 mg/hr, Last Rate: Stopped (03/22/24 1445) dexmedeTOMIDine, 0-1.5 mcg/kg/hr, Last Rate: 0.6 mcg/kg/hr (03/23/24742) EPINEPHrine, 0-0.2 mcg/kg/min, Last Rate: Stopped (03/23/24644) insulin regular, 0-30 Units/hr, Last Rate: 3.1 Units/hr (03/23/24630) Lactated Ringer's, 30 mL/hr, Last Rate: 30 mL/hr (03/22/24742) norepinephrine, 0-2 mcg/kg/min, Last Rate: 0.08 mcg/kg/min (03/23/24629) propofol, 0-50 mcg/kg/min, Last Rate: 10 mcg/kg/min (03/23/24644) sodium chloride 0.9%, 10 mL/hr sodium chloride 0.9%, 20 mL/hr, Last Rate: 20 mL/hr (03/22/24 1930) sodium chloride 0.9%, 3-12 mL/hr, Last Rate: 10 mL/hr (03/22/24 1620) vasopressin, 0.04 Units/min, Last Rate: 0.04 Units/min (03/23/24 0400) Medications Discontinued During This Encounter Medication Reason vancomycin (VANCOCIN) solution Patient Discharge sodium chloride 0.9% irrigation Patient Discharge ceFAZolin (ANCEF) injection Patient Discharge ceFAZolin (ANCEF) 1 gram/10 mL in sterile water (premix) 2,000 mg Patient Transfer vancomycin 1500 mg/250 mL in sodium chloride 0.9% (premix) 1,500 mg Patient Transfer sodium chloride 0.9% flush 0.5-20 mL Patient Transfer Carrier Fluids for Secondary Infusion - 0.9% Sodium Chloride Patient Transfer vancomycin 1,000 mg/200 mL in dextrose 5% (premix) 1,000 mg norepinephrine in dextrose 5% (LEVOPHED) 8,000 mcg/250 mL (32 mcg/mL) infusion (premix) PRN Medications: albumin sodium chloride 0.9% dextrose fentaNYL magnesium sulfate oxyCODONE potassium chloride prochlorperazine sodium chloride 0.9% sodium chloride 0.9% Objective Vitals: Most Recent: Vitals: 03/23/24729 BP: Pulse: 90 Resp: 15 Temp: SpO2: 100% 24hr Min/Max: Temp Min: 35.4 ??C (95.7 ??F) Max: 38 ??C (100.4 ??F) Pulse Min: 71 Max: 100 BP Min: 129/57 Max: 130/47 Resp Min: 15 Max: 25 SpO2 Min: 94 % Max: 100 % LDA: Introducer 03/22/24 Right Internal jugular (Active) Placement Date/Time: 03/22/24 (c) 0858 Hand Hygiene Performed: Yes Orientation: Right Location: Internal jugular Description (optional): multi-lumen access catheter (MAC) Number of days: 0 PA Catheter 8 Fr. Right Other (Comment) (Active) Placement Date/Time: 03/22/24 (c) 0858 Site Prep: Chlorhexidine Sheath Size: 8 Fr. Line Orientation: Right Sheath Insertion Site: Other (Comment) Number of days: 0 Arterial Line 03/22/24 Left Radial (Active) Placement Date/Time: 03/22/24 (c) 0855 Size: 20 G Orientation: Left Location: Radial Securement Method: Taped;Transparent dressing Number of days: 0 ETT ETT - single 8 mm (Active) Placement Date/Time: 03/22/24 (c) 0858 Mask Ventilation: Vent by mask Technique: Direct laryngoscopy ETT Type: ETT - single Single Lumen Tube Size: 8 mm Cuffed: Yes Laryngoscope: Crystal Blade Size: 4 Location: Oral Grade View: Full view o... Number of days: 0 Urethral Catheter Double-lumen;Straight-tip (Active) Placement Date/Time: 03/22/24 0816 Inserted by: Venkat Yeager RN Catheter Type: (c) Double-lumen;Straight-tip Tube Size (Fr.): 16 Fr Catheter Balloon Size: 10 mL Urine Returned: Yes Number of days: 0 Y Chest Tube A and B A Mediastinal 28 Fr. B Right Pleural 24 Fr. (Active) Placement Date/Time: 03/22/24 1043 Inserted by: Dr. Baldwin Tube Number A: A Chest Tube Location A: Mediastinal Size (Fr.) A: 28 Fr. Tube Number B: B Chest Tube Orientation B: Right Chest Tube Location B: Pleural Size (Fr.) B: (c) 24 Fr. Chest T... Number of days: 0 Vent settings: Adult Vent Mode: Volume control/Assist control FiO2 (%): [40 %-100 %] 40 % S RR: [16] 16 S VT: [600 mL] 600 mL PEEP/CPAP/EPAP (cm H2O): [5 cm H20] 5 cm H20 MAP (cmH2O): [7.3-15] 8.1 Hemodynamic parameters for last 24 hours: PAP: (14-45)/(7-21) 19/11 CVP: [2 mmHg-21 mmHg] 5 mmHg CO: [3.6 L/min-6 L/min] 5.5 L/min CI: [1.8 L/min/m2-3 L/min/m2] 2.8 L/min/m2 I/O: Date 03/22/24 07 - 03/23/24 0603/23/24699 - 03/24/24 06 Shift 9694-7231 2466-3561 24 Hour Total 5805-1320 4417-3430 24 Hour Total INTAKE I.V.(mL/kg) 2100(27.5) 1182.6(15.5) 3282.6(43) 55.2(0.7) 55.2(0.7) Blood 605 628 1707 IV Piggyback 100 1470 1570 Shift Total(mL/kg) 2660(34.8) 3602.6(47.2) 6262.6(82) 55.2(0.7) 55.2(0.7) OUTPUT Urine(mL/kg/hr) 1085(1.2) 495(0.5) 1580(0.9) 40 40 Blood 500 500 Chest Tube 218 326 9368 0 0 Shift Total(mL/kg) 2345(30.7) 915(12) 3260(42.7) 40(0.5) 40(0.5) NET 315 2687.6 3002.6 15.2 15.2 Weight (kg) 76.4 76.4 76.4 76.4 76.4 76.4 Physical Exam: Neuro: Sedated to RASS -4 HEENT: Head NC/AT, face symmetrical, PEERL CV: S1 and S2 without M/G/R, RRR Pulm: Intubated, vent support GI: Abdomen Soft/ND, normoactive bowel sounds : Reyes to gravity Skin: Warm, dry, good turgor Extremities: No edema, PPP Wounds: sternotomy dressing CDI Drains: MT/CT to 20cm suction Access: Rt IJ MAC/PAC, Rt IJ CVC, radial A.Line Wound 03/22/24 Incision Chest Mid-line (Active) Date First Assessed/Time First Assessed: 03/22/24 1157 Primary Wound Type: Incision Location: ChestLocation Orientation: Mid-line Assessments 03/22/2024 11:57 AM 03/23/2024 4:00 AM Dressing Status Clean/Dry/Intact Clean/Dry/Intact Site Assessment -- Unable to assess Shape & Pattern Linear -- Kasey-wound Assessment -- Unable to assess Dressing Silver dressing Silver foam No associated orders. Wound 03/22/24 Incision Chest Medial (Active) Date First Assessed/Time First Assessed: 03/22/24 1154 Present on Original Admission: No Primary Wound Type: Incision Location: (c) Chest Location Orientation: Medial Assessments 03/22/2024 12:20 PM Dressing Status Clean/Dry/Intact Site Assessment Clean Shape & Pattern Other (Comment) [place] dressing No associated orders. Lab/Radiology/Diagnostic Review: Chem/LFT Lab History Latest Ref Rng & Units 03/18/2024 12:29 03/22/2024 03/23/2024 Labs-Chem/LFT Sodium 135 - 145 mmol/L 140 145 141 Creatinine 0.80 - 1.30 mg/dL 0.65 0.85 0.59 CrCl- Actual Body Weight (Cockcroft-Gault) 146.5 104.9 151.1 Details More abnormal values are hidden. Newest values shown. Go to activity for more data. More values are hidden. Newest values shown. Go to activity for more data. Hematology Lab History Latest Ref Rng & Units 03/18/2024 12:29 03/22/2024 03/23/2024 Labs - Hematology WBC 3.8 - 9.9 K/cumm 7.2 12.8 9.9 Total Hb, POC 13.0 - 17.5 g/dL 13.6 9.3 7.1 Hct 38.9 - 50.3 % 39.3 26.4 20.0 Plt 150 - 400 K/cumm 140 101 57 Details More abnormal values are hidden. Newest values shown. Go to activity for more data. I have personally reviewed the telemetry strips over the past 12h. I have personally reviewed the above labs and microbiology results. I have personally reviewed the radiology exams in the past 24h. Assessment and plan: NEURO: # Acute pain - Tylenol, Lidoderm, Oxycodone and Fentanyl prn for pain. - Robaxin as adjunct to pain management - Continue to closely monitor pain level and modify the regimen appropriately. # Acute agitation requiring sedation - Propofol gtt while intubated - RASS goal 0 to -2 - wean as able for fast track extubation # TIA, history of - 03/09: pt with left arm and leg numbness, HCT without acute process, resolution of symptoms - home regimen: asa and statin # anxiety, chronic # depression, chronic - home regimen: seroquel, no recent refill of bupropion per chart review - resume when appropriate # restless leg syndrome, chronic # insomnia, chronic - home regimen: lunesta, ropinirole - hold home regimen in the acute setting - resume ropinirole when appropriate # alcohol use disorder, history of - per chart review, pt with prior hx of alcohol use, with history of withdrawal and seizure x1 - per pt report, has been sober x1 year - continue to monitor CV: # aortic stenosis, chronic #post op cardiogenic and vasoplegic shock, expected - CTS Primary - 03/22: s/p AVR with Dr. Baldwin - Pre-operative and postoperative JAVIER w/ EF 60% - NE/Vaso for MAP >65 - Epi for CI >2.2 - Epicardial wires in place, pacer VVI backup - Thoracostomy tubes/mediastinal tubes in place x2 (mediastinal x1, left pleural x1), monitor output, will notify CTS for output > 200 mL/hr for 2-4 hours - PAC in place, noted on CXR - ASA daily - resume statin per CTS #small pericardial effusion Noted on POCUS, ~1cm, d/w CTS, no early diastolic collapse of RV Frequent stripping chest tubes to prevent clots Frequent POCUS to evaluate effusion Monitor CVP and PA pressures closely CTS aware # paroxysmal SVT, chronic - home regimen: diltiazem, metoprolol, warfarin - resume regimen per CTS - optimize electrolytes # HTN, chronic # HLD, chronic - home regimen: rosuvastatin, metoprolol - resume per CTS - goal normotension postoperatively PULM: # Short-term Mechanical Ventilation with Anticipated Extubation - CXR as above - Active titration of mech vent for Sat >92%, Lung protective ventilation - aggressive pulm hygiene once extubated: PT/OT, IS, OOBTC - Update: Passed SBT and was extubated to NC #Right sided effusion, presumed hemothorax - Improved after affressice stripping of CT-s - CTS aware - Continue to monitor # NICOLE, chronic - compliant with CPAP - CPAP at night once extubated - NICOLE precautions # current smoker - pulm hygiene as above - offer smoking cessation education when appropriate GI: Diet: NPO with plans to advance diet once extubated Bowel regimen: docusate, senna PUD PPx: famotidine ENDO: # Glycemic Control - Insulin gtt DC-d and SSI started - continue to monitor BG RENAL: - Cr 0.74, UOP adequate - Diuresis per CTS - continue to follow creatinine, BUN, urine output, electrolytes HEME: # ABLA # thrombocytopenia - s/p PRBCx2, FFPx1, pltx1, 2 cryo post-op - Monitor CT output - ongoing reassessment in the immediate post-operative period - Continue to monitor on CBC, transfuse as clinically indicated - Hgb 9.3>9.5, Plt 101>96 ID: # Leukocytosis - Likely reactive in the setting of cardiac surgery - Continue to follow fever curve and WBC - Complete perioperative ABX - WBC 12.8, afwebrile INTENSIVE CARE UNIT STANDARDS OF CARE: DVT ppx: Lovenox ppx starting tonight, SCDs Access: R IJ MAC/PAC, left radial arterial line, PIVs Goals of care: full code Assessment and plan has been reviewed with attending, FLASH Walker Critical Care Performed by: Hiren Ferrell PA Authorized by: Hiren Ferrell PA CRITICAL CARE: Team: DWAYNE Shift: AM Level of Billing: Critical Care My time spent with this patient was 75 minutes: Critical Provider Statement: I have seen and examined the patient on this day of service. I have reviewed and confirmed the history, physical exam, laboratory and radiologic data as documented in thesigned ICU note. I have reviewed and discussed my treatment plan with the ICU team and other medical/bridal stylist sales consultant staff, making frequent assessments and decisions regarding this patient's complex medical care. Critical Care time was exclusive of time spent performing separately billed procedures, treating other patients, and teaching. This time was in addition to and separate from critical care provided by other practitioners in my group on this day of service. Critical Care was necessary to treat or prevent imminent or life-threatening deterioration of the following conditions: I spent time reviewing and interpreting data from bedside monitors, laboratory results, and imaging, I spent time discussing the management of this critically ill patient with consultants and the medical staff and I spent time documenting in the medical record Cosigned by Dequan Keller MD at 03/24/2024 4:16 PM CDT * Marlo Rdz MD - 03/23/2024 6:33 AM CDT Cardiothoracic Surgery Progress Note [facility] 1965 [facility] DAY#1 1 Day Post-Op s/p: Procedures: * REPLACEMENT AORTIC VALVE, LAMBERTO Subjective: Remains intubated, worsening index overnight to 1.8, started on epi with improvement (epi currently at 0.01, levo at 0.05, vaso at 0.04), initially high CT output s/p 2 PBRCs, 2x cryo, 1xFFP, 1 x platelets, improved CT output, Hgb stable at 9.5 (9.3). CXR and POCUS with effusion on right OBJECTIVE: Vitals: Temp: [35.4 ??C (95.7 ??F)-38 ??C (100.4 ??F)] 37.9 ??C (100.2 ??F) Pulse: [71-100] 90 BP: (129-130)/(47-57) 130/47 Resp: [16-23] 21 SpO2: [94 %-100 %] 100 % SVO2: [42 %-84 %] 53 % Arterial Line BP: (94-121)/(44-58) 112/54 FiO2 (%): [40 %-100 %] 40 % PAP: 25/16 (03/23 610) CVP: 9 mmHg (03/23 610) PCWP: -- CO: 5.5 L/min (03/23 610) CI: 2.8 L/min/m2 (03/23 610) SVO2: 53 % (03/23 610) Pacemaker Overdrive Pacing: -- Cardiac Rhythm: Atrial paced (03/23 400) Pacer Mode: -- Wt Readings from Last 3 Encounters: 03/22/24 76.4 kg (168 lb 6.9 oz) 03/17/24 81.6 kg (180 lb) 02/26/24 79.4 kg (175 lb) I/O last 2 completed shifts: In: 2660 [I.V.:2100; Blood:460; IV Piggyback:100] Out: 2345 [Urine:1085; Blood:500; Chest Tube:760] Physical Exam Constitutional: Comments: On dex, responding to commands, remains intubated HENT: Head: Normocephalic and atraumatic. Mouth/Throat: Mouth: Mucous membranes are moist. Eyes: Extraocular Movements: Extraocular movements intact. Cardiovascular: Rate and Rhythm: Normal rate. Comments: Currently AAI paced at 90, underlying sinus in 70s Pulmonary: Comments: Mechanically ventilated Abdominal: General: Abdomen is flat. Palpations: Abdomen is soft. Genitourinary: Comments: Reyes in place, clear yellow urine Musculoskeletal: General: Normal range of motion. Cervical back: Normal range of motion and neck supple. Skin: General: Skin is warm and dry. Neurological: General: No focal deficit present. Mental Status: He is alert. Chest tube output: sanguinous, airleak: No, suction: -20mmHg Access: central line, swan, and peripheral IV Recent Labs Lab Units 03/23/2421103/22/24214603/22/24 1735 WBC K/cumm 14.5* 12.8* 16.1* HEMOGLOBIN g/dL 9.5* 9.3* 8.0* HEMATOCRIT % 27.0* 26.4* 23.1* PLATELETS K/cumm 96* 101* 124* Recent Labs Lab Units 03/23/2421103/22/24214603/22/24 1511 SODIUM mmol/L 143 145 143 POTASSIUM PLASMA mmol/L 4.5 4.6 4.4 CHLORIDE mmol/L 113* 114* 111* CO2 mmol/L 22 22 24 BUN SERUM mg/dL 15 15 12 CREATININE mg/dL 0.74* 0.85 0.80 CALCIUM mg/dL 9.1 7.4* 7.8* Recent Labs Lab Units 03/22/24 2332 03/22/24 1511 03/22/24 1231 03/22/24 0646 03/18/24 1229 PROTIME (PT) sec 15.4* 15.4* 15.6* < > 16.7* INR 1.42* 1.42* 1.43* < > 1.53* APTT sec -- 35 33 -- 34 < > = values in this interval not displayed. Recent Labs Lab Units 03/22/24 2147 03/22/24 1735 03/22/24 1511 PH ART 7.38 7.37 7.34* PCO2 ART mmHg 40 41 45 PO2 ART mmHg 161* 172* 138* BASE EXC ART mmol/L -1 -2 -1 Drips: Vaso @ 0.04, epinephrine 0.01 mcg/kg/min, and norepinephrine 0.05 mcg/kg/min Imaging: Today's CXR RLL atelectasis, moderate effusion on right Assessment and Plan: 58 y.o. male 1 Day Post-Op s/p AVR with 23mm Leonidas valve + sternal plating CVS: CI @ 2.8, CVP 6, levo @ 0.05, epi @ 0.01, Vaso @ 0.04, wean epi and pressors as able, continueAAI pacing at 90, holding therapeutic AC, continue ASA, fluid resuscitation Pulm: Intubated, wean to extubate this AM GI: Advance diet once extubated Renal: UOP adequate 1.5L ID: Completing course of prophylactic Abx D/L/T: Eric Nascimento, CT x 2, Prophylaxis: lovenox start tonight Dispo: CTICU Marlo Rdz MD Cardiothoracic Surgery [facility] [employer] [facility] Cosigned by Ernie Baldwin MD at 03/25/2024 10:49 AM CDT * Marlo Portillo NP - 03/22/2024 10:40 PM CDTAssociated Order(s): Critical Care Post-Procedure Diagnose(s): Aortic valve stenosis, etiology of cardiac valve disease unspecified Images from the original note were not included. Critical Care Medicine Daily Progress Team: [facility] Subjective Patient is a 58 y.o. y/o male admitted on 03/22/2024 5:30 AM with the following indication(s) for ICU care s/p Mechanical AVR Interval History: [facility] AVR NE/vaso for MAP >65 Add Epi for drop in dex to 1.9, CTS aware Give additional [address] output ~ 100 ml/hr Called to room at 2200 Asked to perform bedside US per CTS request, limited views given sternotomy site/dressing/chest tubes, subcostal views does show a small 1 cm pericardial effusion, images sent to Dr Baldwin for review, no early diastolic collapse of RV seen, continue to monitor CVP and PA pressures closely, frequent POCUS at bedside to monitor effusion, Dr Fong updated and agrees as well Personally stripped Chest tubes frequent throughout night to relieve clot burden 2250 CXR with worsening right side opacities, updated Dr Baldwin, no new orders Hypocalcemia replaced HPI 58 yo male with worsening SOB and fatigue with exertion x1 year. Admitted to ICU s/p planned AVR with Dr. Baldwin. Uncomplicated OR course, AVR with 23mm Morro, easy airway, received 750ml cell saver, 2100ml crystalloid, was noted to be oozy at the end of the case. Upon arrival to ICU was off pressors, had 140ml CT output, and plt 85 for which he received 1u plts. PMH: aortic stenosis, sleep apnea (CPAP compliant), paroxysmal atrial fibrillation, SVT, current smoker, and alcohol abuse with history of sz and withdrawal (per chart review has been sober x1 year),anx/depression, HTN/HLD, HFpEF EF 60-70%, TIA Hospital Course 03/22 [facility] AVR, NE/vaso/ epi/ 2 prbc, 1 ffp, 1 plt, 2 cryo Scheduled Medications: acetaminophen, 1,000 mg, oral, Q6H CHAVO Or acetaminophen, 1,000 mg, feeding tube, Q6H CHAVO Or acetaminophen, 650 mg, rectal, Q6H CHAVO albuterol, 2.5 mg, nebulization, Q6H CHAVO (RT) aspirin, 81 mg, oral, Daily Or aspirin, 81 mg, feeding tube, Daily calcium chloride, 2 g, intravenous, Once ceFAZolin, 1,000 mg, intravenous, Q8H famotidine, 20 mg, intravenous, Daily polyethylene glycol, 17 g, oral, Daily senna-docusate, 2 tablet, oral, BID sodium chloride 0.9%, 0.5-20 mL, intra-catheter, Q8H CHAVO vancomycin, 15 mg/kg, intravenous, Q12H Continuous Medications: clevidipine, 0-32 mg/hr, Last Rate: Stopped (03/22/241444) dexmedeTOMIDine, 0-1.5 mcg/kg/hr, Last Rate: 0.2 mcg/kg/hr (03/22/241929) EPINEPHrine, 0-0.2 mcg/kg/min, Last Rate: 0.04 mcg/kg/min (03/22/242206) insulin regular, 0-30 Units/hr, Last Rate: 3.1 Units/hr (03/22/242211) Lactated Ringer's, 30 mL/hr, Last Rate: 30 mL/hr (03/22/24742) norepinephrine, 0-2 mcg/kg/min, Last Rate: 0.12 mcg/kg/min (03/22/242004) propofol, 0-50 mcg/kg/min, Last Rate: 50 mcg/kg/min (03/22/242227) sodium chloride 0.9%, 10 mL/hr sodium chloride 0.9%, 20 mL/hr, Last Rate: 20 mL/hr (03/22/241929) sodium chloride 0.9%, 3-12 mL/hr, Last Rate: 10 mL/hr (03/22/241619) vasopressin, 0.04 Units/min, Last Rate: 0.04 Units/min (03/22/241929) Medications Discontinued During This Encounter Medication Reason vancomycin (VANCOCIN) solution Patient Discharge sodium chloride 0.9% irrigation Patient Discharge ceFAZolin (ANCEF) injection Patient Discharge ceFAZolin (ANCEF) 1 gram/10 mL in sterile water (premix) 2,000 mg Patient Transfer vancomycin 1500 mg/250 mL in sodium chloride 0.9% (premix) 1,500 mg Patient Transfer sodium chloride 0.9% flush 0.5-20 mL Patient Transfer Carrier Fluids for Secondary Infusion - 0.9% Sodium Chloride Patient Transfer vancomycin 1,000 mg/200 mL in dextrose 5% (premix) 1,000 mg norepinephrine in dextrose 5% (LEVOPHED) 8,000 mcg/250 mL (32 mcg/mL) infusion (premix) PRN Medications: albumin sodium chloride 0.9% dextrose fentaNYL magnesium sulfate oxyCODONE potassium chloride prochlorperazine sodium chloride 0.9% sodium chloride 0.9% Objective Vitals: Most Recent: Vitals: 03/22/24 2247 BP: Pulse: 90 Resp: Temp: SpO2: 100% 24hr Min/Max: Temp Min: 35.4 ??C (95.7 ??F) Max: 38 ??C (100.4 ??F) Pulse Min: 58 Max: 100 BP Min: 101/61 Max: 130/47 Resp Min: 16 Max: 19 SpO2 Min: 96 % Max: 100 % LDA: Introducer 03/22/24 Right Internal jugular (Active) Placement Date/Time: 03/22/24 (c) 0858 Hand Hygiene Performed: Yes Orientation: Right Location: Internal jugular Description (optional): multi-lumen access catheter (MAC) Number of days: 0 PA Catheter 8 Fr. Right Other (Comment) (Active) Placement Date/Time: 03/22/24 (c) 0858 Site Prep: Chlorhexidine Sheath Size: 8 Fr. Line Orientation: Right Sheath Insertion Site: Other (Comment) Number of days: 0 Arterial Line 03/22/24 Left Radial (Active) Placement Date/Time: 03/22/24 (c) 0855 Size: 20 G Orientation: Left Location: Radial Securement Method: Taped;Transparent dressing Number of days: 0 ETT ETT - single 8 mm (Active) Placement Date/Time: 03/22/24 (c) 0858 Mask Ventilation: Vent by mask Technique: Direct laryngoscopy ETT Type: ETT - single Single Lumen Tube Size: 8 mm Cuffed: Yes Laryngoscope: Crystal Blade Size: 4 Location: Oral Grade View: Full view o... Number of days: 0 Urethral Catheter Double-lumen;Straight-tip (Active) Placement Date/Time: 03/22/24 0816 Inserted by: Venkat Yeager RN Catheter Type: (c) Double-lumen;Straight-tip Tube Size (Fr.): 16 Fr Catheter Balloon Size: 10 mL Urine Returned: Yes Number of days: 0 Y Chest Tube A and B A Mediastinal 28 Fr. B Right Pleural 24 Fr. (Active) Placement Date/Time: 03/22/24 1043 Inserted by: Dr. Baldwin Tube Number A: A Chest Tube Location A: Mediastinal Size (Fr.) A: 28 Fr. Tube Number B: B Chest Tube Orientation B: Right Chest Tube Location B: Pleural Size (Fr.) B: (c) 24 Fr. Chest T... Number of days: 0 Vent settings: Adult Vent Mode: Volume control/Assist control FiO2 (%): [40 %-100 %] 40 % S RR: [16] 16 S VT: [600 mL] 600 mL PEEP/CPAP/EPAP (cm H2O): [5 cm H20] 5 cm H20 MAP (cmH2O): [7.9-9.6] 8.6 Hemodynamic parameters for last 24 hours: PAP: (14-30)/(8-19) 28/18 CVP: [2 mmHg-13 mmHg] 10 mmHg CO: [3.6 L/min-5.7 L/min] 5.2 L/min CI: [1.8 L/min/m2-2.9 L/min/m2] 2.6 L/min/m2 I/O: Date 03/21/241899 - 03/22/24 0659(Not Admitted) 03/22/24699 - 03/23/24 0659 Shift 6341-6264 24 Hour Total 8161-3730 8640-7606 24 Hour Total INTAKE I.V.(mL/kg) 2100(27.5) 618.4(8.1) 2718.4(35.6) Blood 374 542 1614 IV Piggyback 100 850 950 Shift Total(mL/kg) 2660(34.8) 2418.4(31.7) 5078.4(66.5) OUTPUT Urine(mL/kg/hr) 1085(1.2) 210 1295 Blood 500 500 Chest Tube 444 317 8920 Shift Total(mL/kg) 2345(30.7) 470(6.2) 2815(36.8) NET 315 1948.4 2263.4 Weight (kg) 76.4 76.4 76.4 76.4 76.4 Physical Exam: General appearance: Critical male lying in bed on vent HEENT: Normocephalic, without obvious abnormality, atraumatic, PERRLA Lungs: coarse to auscultation bilaterally, CT to wall suction no air leak noted, sanguinous drainage with clots noted Heart: Apaced, no murmur, click, rub or gallop Abdomen: soft, non-tender; bowel sounds normal; no masses, no organomegaly Extremities: extremities normal, warm and well-perfused Pulses: radial, DP, PT 2+ and symmetric Skin: Skin color, texture, turgor normal. No rashes or lesions Neurologic: intubated and sedated, does grimace to pain, no commands Wound 03/22/24 Incision Chest Mid-line (Active) Date First Assessed/Time First Assessed: 03/22/24 1157 Primary Wound Type: Incision Location: ChestLocation Orientation: Mid-line Assessments 03/22/2024 11:57 AM 03/22/2024 7:30 PM Dressing Status Clean/Dry/Intact Clean/Dry/Intact Site Assessment -- Unable to assess Shape & Pattern Linear -- Kasey-wound Assessment -- Unable to assess Dressing Silver dressing Silver foam No associated orders. Wound 03/22/24 Incision Chest Medial (Active) Date First Assessed/Time First Assessed: 03/22/24 1154 Present on Original Admission: No Primary Wound Type: Incision Location: (c) Chest Location Orientation: Medial Assessments 03/22/2024 12:20 PM Dressing Status Clean/Dry/Intact Site Assessment Clean Shape & Pattern Other (Comment) [place]ressing [place] dressing No associated orders. Lab/Radiology/Diagnostic Review: Laboratory review: Lab results in the last 24 hours: Recent Results (from the past 24 hour(s)) Prepare RBC: 4 Units Collection Time: 03/22/24 6:00 AM Result Value Ref Range Product code T2670X22 Unit Number [id number] Product Blood Type BPOS Dispense Status PRESUMED TRANSFUSED Product code P0151W10 Unit Number [id number] Product Blood Type BPOS Dispense Status ISSUED Product code D5756B98 Unit Number [id number] Product Blood Type BPOS Dispense Status CROSSMATCHED Product code E7118B69 Unit Number [id number] Product Blood Type BPOS Dispense Status CROSSMATCHED Prepare platelets: 2 Units Collection Time: 03/22/24 6:00 AM Result Value Ref Range Product code O5083Q10 Unit Number [id number] Product Blood Type OPOS Dispense Status PRESUMED TRANSFUSED Prepare plasma: 2 Units Standard plasma Collection Time: 03/22/24 6:00 AM Result Value Ref Range Product code H6019C63 Unit Number [id number] Product Blood Type BPOS Dispense Status PRESUMED TRANSFUSED Type and screen Collection Time: 03/22/24 6:24 AM Result Value Ref Range ABO Rh B Positive Beatriz, indirect Negative Protime-INR Collection Time: 03/22/24 6:46 AM Result Value Ref Range PT 12.3 9.7 - 13.0 sec INR 1.14 0.90 - 1.20 POC Activated Clotting Time, High Range Collection Time: 03/22/24 8:36 AM Result Value Ref Range ACT 98 87 - 138 sec POC Blood Gas and Chemistries, Arterial - Collection Time: 03/22/24 8:38 AM Result Value Ref Range pH, Art POC 7.42 7.35 - 7.45 pCO2, Art POC 40 35 - 45 mmHg pO2, Art POC >500 (H) 83 - 108 mmHg Na, POC 137 135 - 145 mmol/L K POC 3.9 3.3 - 4.9 mmol/L Ionized Ca, POC 4.93 4.50 - 5.10 mg/dL Glucose, POC 112 70 - 199 mg/dL Lactate, POC <0.5 (L) 0.7 - 2.0 mmol/L SO2 (jules) arterial 100 (H) 90 - 95 % Total CO2, Art POC 27 21 - 30 mmol/L BE, art, POC 1 mmol/L HCO3, Art POC 26 20 - 30 mmol/L Hct, POC 42.0 38.9 - 50.3 % Total Hb, POC 14.1 13.0 - 17.5 g/dL POC Activated Clotting Time, High Range Collection Time: 03/22/24 9:02 AM Result Value Ref Range ACT 918 (H) 87 - 138 sec POC Activated Clotting Time, High Range Collection Time: 03/22/24 9:34 AM Result Value Ref Range ACT 805 (H) 87 - 138 sec POC Blood Gas and Chemistries, Arterial - Collection Time: 03/22/24 9:36 AM Result Value Ref Range pH, Art POC 7.35 7.35 - 7.45 pCO2, Art POC 44 35 - 45 mmHg pO2, Art POC 316 (H) 83 - 108 mmHg Na, POC 134 (L) 135 - 145 mmol/L K POC 5.3 (H) 3.3 - 4.9 mmol/L Ionized Ca, POC 4.45 (L) 4.50 - 5.10 mg/dL Glucose, POC 133 70 - 199 mg/dL Lactate, POC 0.6 (L) 0.7 - 2.0 mmol/L SO2 (jules) arterial 100 (H) 90 - 95 % Total CO2, Art POC 26 21 - 30 mmol/L BE, art, POC -1 mmol/L HCO3, Art POC 24 20 - 30 mmol/L Hct, POC 31.0 (L) 38.9 - 50.3 % Total Hb, POC 10.3 (L) 13.0 - 17.5 g/dL Platelet count Collection Time: 03/22/24 10:10 AM Result Value Ref Range Plt 100 (L) 150 - 400 K/cumm POC Activated Clotting Time, High Range Collection Time: 03/22/24 10:10 AM Result Value Ref Range ACT 672 (H) 87 - 138 sec POC Blood Gas and Chemistries, Arterial - Collection Time: 03/22/24 10:13 AM Result Value Ref Range pH, Art POC 7.38 7.35 - 7.45 pCO2, Art POC 39 35 - 45 mmHg pO2, Art POC 274 (H) 83 - 108 mmHg Na, POC 134 (L) 135 - 145 mmol/L K POC 5.1 (H) 3.3 - 4.9 mmol/L Ionized Ca, POC 4.57 4.50 - 5.10 mg/dL Glucose, POC 159 70 - 199 mg/dL Lactate, POC 0.6 (L) 0.7 - 2.0 mmol/L SO2 (jules) arterial 100 (H) 90 - 95 % Total CO2, Art POC 24 21 - 30 mmol/L BE, art, POC -2 mmol/L HCO3, Art POC 24 20 - 30 mmol/L Hct, POC 30.0 (L) 38.9 - 50.3 % Total Hb, POC 10.1 (L) 13.0 - 17.5 g/dL POC Activated Clotting Time, High Range Collection Time: 03/22/24 10:36 AM Result Value Ref Range ACT 546 (H) 87 - 138 sec POC Blood Gas and Chemistries, Arterial - Collection Time: 03/22/24 10:38 AM Result Value Ref Range pH, Art POC 7.33 (L) 7.35 - 7.45 pCO2, Art POC 42 35 - 45 mmHg pO2, Art POC 229 (H) 83 - 108 mmHg Na, POC 134 (L) 135 - 145 mmol/L K POC 6.1 (Critical) 3.3 - 4.9 mmol/L Ionized Ca, POC 4.67 4.50 - 5.10 mg/dL Glucose, POC 160 70 - 199 mg/dL Lactate, POC 0.8 0.7 - 2.0 mmol/L SO2 (jules) arterial 100 (H) 90 - 95 % Total CO2, Art POC 23 21 - 30 mmol/L BE, art, POC -4 mmol/L HCO3, Art POC 22 20 - 30 mmol/L Hct, POC 30.0 (L) 38.9 - 50.3 % Total Hb, POC 10.1 (L) 13.0 - 17.5 g/dL POC Activated Clotting Time, High Range Collection Time: 03/22/24 11:15 AM Result Value Ref Range ACT 104 87 - 138 sec POC Blood Gas and Chemistries, Arterial - Collection Time: 03/22/24 11:17 AM Result Value Ref Range pH, Art POC 7.38 7.35 - 7.45 pCO2, Art POC 43 35 - 45 mmHg pO2, Art POC 417 (H) 83 - 108 mmHg Na, POC 136 135 - 145 mmol/L K POC 5.1 (H) 3.3 - 4.9 mmol/L Ionized Ca, POC 4.50 4.50 - 5.10 mg/dL Glucose, POC 152 70 - 199 mg/dL Lactate, POC 0.7 0.7 - 2.0 mmol/L SO2 (jules) arterial 100 (H) 90 - 95 % Total CO2, Art POC 27 21 - 30 mmol/L BE, art, POC 0 mmol/L HCO3, Art POC 25 20 - 30 mmol/L Hct, POC 31.0 (L) 38.9 - 50.3 % Total Hb, POC 10.3 (L) 13.0 - 17.5 g/dL Calcium, ionized, whole blood Collection Time: 03/22/24 12:30 PM Result Value Ref Range Ca, ionized, bld 4.74 4.50 - 5.10 mg/dL POCT glucose Collection Time: 03/22/24 12:30 PM Result Value Ref Range Glucose, POC 120 70 - 199 mg/dL Basic metabolic panel Collection Time: 03/22/24 12:31 PM Result Value Ref Range Sodium 141 135 - 145 mmol/L Potassium, pl 4.7 3.3 - 4.9 mmol/L Chloride 109 97 - 110 mmol/L CO2 23 22 - 32 mmol/L Anion gap 9 2 - 15 mmol/L BUN 12 6 - 25 mg/dL Creatinine 0.77 (L) 0.80 - 1.30 mg/dL Glucose 134 70 - 199 mg/dL Calcium 8.1 (L) 8.5 - 10.3 mg/dL Blood gas, arterial Collection Time: 03/22/24 12:31 PM Result Value Ref Range pH, Art 7.37 7.35 - 7.45 PCO2, Arterial 42 35 - 45 mmHg PO2, Arterial 446 (H) 83 - 108 mmHg HCO3 Art (Calculated) 23 20 - 30 mmol/L BE, art -1 mmol/L O2 Sat Art (Measured) 100 (H) 90 - 95 % CBC without differential Collection Time: 03/22/24 12:31 PM Result Value Ref Range WBC 10.8 (H) 3.8 - 9.9 K/cumm Hgb 11.8 (L) 13.0 - 17.5 g/dL Hct 33.2 (L) 38.9 - 50.3 % Plt 85 (L) 150 - 400 K/cumm MPV 9.5 9.1 - 12.3 fL RBC 3.88 (L) 4.30 - 5.80 M/cumm MCV 85.6 81.3 - 96.4 fL MCH 30.4 27.1 - 33.3 pg MCHC 35.5 32.3 - 35.7 g/dL RDW CV 13.5 11.1 - 14.9 % RDW SD 41.8 35.7 - 48.1 fL NRBC abs 0.00 0.00 - 0.01 K/cumm Protime-INR Collection Time: 03/22/24 12:31 PM Result Value Ref Range PT 15.6 (H) 9.7 - 13.0 sec INR 1.43 (H) 0.90 - 1.20 aPTT Collection Time: 03/22/24 12:31 PM Result Value Ref Range aPTT 33 28 - 38 sec Magnesium Collection Time: 03/22/24 12:31 PM Result Value Ref Range Magnesium 2.7 (H) 1.4 - 2.5 mg/dL eGFR Collection Time: 03/22/24 12:31 PM Result Value Ref Range eGFR >90 >=60 mL/min/1.73 m2 POCT glucose Collection Time: 03/22/24 1:00 PM Result Value Ref Range Glucose, POC 119 70 - 199 mg/dL POCT glucose Collection Time: 03/22/24 2:03 PM Result Value Ref Range Glucose, POC 114 70 - 199 mg/dL CBC without differential Collection Time: 03/22/24 3:11 PM Result Value Ref Range WBC 14.0 (H) 3.8 - 9.9 K/cumm Hgb 10.2 (L) 13.0 - 17.5 g/dL Hct 28.5 (L) 38.9 - 50.3 % Plt 121 (L) 150 - 400 K/cumm MPV 9.7 9.1 - 12.3 fL RBC 3.33 (L) 4.30 - 5.80 M/cumm MCV 85.6 81.3 - 96.4 fL MCH 30.6 27.1 - 33.3 pg MCHC 35.8 (H) 32.3 - 35.7 g/dL RDW CV 13.6 11.1 - 14.9 % RDW SD 42.4 35.7 - 48.1 fL NRBC abs 0.00 0.00 - 0.01 K/cumm Basic metabolic panel Collection Time: 03/22/24 3:11 PM Result Value Ref Range Sodium 143 135 - 145 mmol/L Potassium, pl 4.4 3.3 - 4.9 mmol/L Chloride 111 (H) 97 - 110 mmol/L CO2 24 22 - 32 mmol/L Anion gap 8 2 - 15 mmol/L BUN 12 6 - 25 mg/dL Creatinine 0.80 0.80 - 1.30 mg/dL Glucose 137 70 - 199 mg/dL Calcium 7.8 (L) 8.5 - 10.3 mg/dL Calcium, ionized, whole blood Collection Time: 03/22/24 3:11 PM Result Value Ref Range Ca, ionized, bld 4.64 4.50 - 5.10 mg/dL Blood gas, arterial Collection Time: 03/22/24 3:11 PM Result Value Ref Range pH, Art 7.34 (L) 7.35 - 7.45 PCO2, Arterial 45 35 - 45 mmHg PO2, Arterial 138 (H) 83 - 108 mmHg HCO3 Art (Calculated) 23 20 - 30 mmol/L BE, art -1 mmol/L O2 Sat Art (Measured) 99 (H) 90 - 95 % aPTT Collection Time: 03/22/24 3:11 PM Result Value Ref Range aPTT 35 28 - 38 sec Protime-INR Collection Time: 03/22/24 3:11 PM Result Value Ref Range PT 15.4 (H) 9.7 - 13.0 sec INR 1.42 (H) 0.90 - 1.20 Fibrinogen Collection Time: 03/22/24 3:11 PM Result Value Ref Range Fibrinogen 156 (L) 170 - 400 mg/dL Magnesium Collection Time: 03/22/24 3:11 PM Result Value Ref Range Magnesium 2.4 1.4 - 2.5 mg/dL eGFR Collection Time: 03/22/24 3:11 PM Result Value Ref Range eGFR >90 >=60 mL/min/1.73 m2 POCT glucose Collection Time: 03/22/24 4:40 PM Result Value Ref Range Glucose, POC 137 70 - 199 mg/dL CBC without differential Collection Time: 03/22/24 5:35 PM Result Value Ref Range WBC 16.1 (H) 3.8 - 9.9 K/cumm Hgb 8.0 (L) 13.0 - 17.5 g/dL Hct 23.1 (L) 38.9 - 50.3 % Plt 124 (L) 150 - 400 K/cumm MPV 9.7 9.1 - 12.3 fL RBC 2.66 (L) 4.30 - 5.80 M/cumm MCV 86.8 81.3 - 96.4 fL MCH 30.1 27.1 - 33.3 pg MCHC 34.6 32.3 - 35.7 g/dL RDW CV 13.8 11.1 - 14.9 % RDW SD 43.4 35.7 - 48.1 fL NRBC abs 0.00 0.00 - 0.01 K/cumm Blood gas, arterial Collection Time: 03/22/24 5:35 PM Result Value Ref Range pH, Art 7.37 7.35 - 7.45 PCO2, Arterial 41 35 - 45 mmHg PO2, Arterial 172 (H) 83 - 108 mmHg HCO3 Art (Calculated) 23 20 - 30 mmol/L BE, art -2 mmol/L O2 Sat Art (Measured) 99 (H) 90 - 95 % Prepare cryoprecipitate (pooled units): 2 Units Collection Time: 03/22/24 5:40 PM Result Value Ref Range Product code [id number] Unit Number [id number] Product Blood Type APOS Dispense Status PRESUMED TRANSFUSED Product code I6230S68 Unit Number [id number] Product Blood Type APOS Dispense Status PRESUMED TRANSFUSED POCT glucose Collection Time: 03/22/24 6:01 PM Result Value Ref Range Glucose, POC 151 70 - 199 mg/dL POCT glucose Collection Time: 03/22/24 6:49 PM Result Value Ref Range Glucose, POC 169 70 - 199 mg/dL POCT glucose Collection Time: 03/22/24 8:04 PM Result Value Ref Range Glucose, POC 171 70 - 199 mg/dL POCT glucose Collection Time: 03/22/24 9:11 PM Result Value Ref Range Glucose, POC 165 70 - 199 mg/dL Basic metabolic panel Collection Time: 03/22/24 9:47 PM Result Value Ref Range Sodium 145 135 - 145 mmol/L Potassium, pl 4.6 3.3 - 4.9 mmol/L Chloride 114 (H) 97 - 110 mmol/L CO2 22 22 - 32 mmol/L Anion gap 9 2 - 15 mmol/L BUN 15 6 - 25 mg/dL Creatinine 0.85 0.80 - 1.30 mg/dL Glucose 143 70 - 199 mg/dL Calcium 7.4 (L) 8.5 - 10.3 mg/dL Magnesium Collection Time: 03/22/24 9:47 PM Result Value Ref Range Magnesium 2.2 1.4 - 2.5 mg/dL CBC without differential Collection Time: 03/22/24 9:47 PM Result Value Ref Range WBC 12.8 (H) 3.8 - 9.9 K/cumm Hgb 9.3 (L) 13.0 - 17.5 g/dL Hct 26.4 (L) 38.9 - 50.3 % Plt 101 (L) 150 - 400 K/cumm MPV 10.0 9.1 - 12.3 fL RBC 3.04 (L) 4.30 - 5.80 M/cumm MCV 86.8 81.3 - 96.4 fL MCH 30.6 27.1 - 33.3 pg MCHC 35.2 32.3 - 35.7 g/dL RDW CV 13.5 11.1 - 14.9 % RDW SD 42.7 35.7 - 48.1 fL NRBC abs 0.00 0.00 - 0.01 K/cumm Lactate Collection Time: 03/22/24 9:47 PM Result Value Ref Range Lactate 0.9 0.7 - 2.0 mmol/L Blood gas, arterial Collection Time: 03/22/24 9:47 PM Result Value Ref Range pH, Art 7.38 7.35 - 7.45 PCO2, Arterial 40 35 - 45 mmHg PO2, Arterial 161 (H) 83 - 108 mmHg HCO3 Art (Calculated) 24 20 - 30 mmol/L BE, art -1 mmol/L O2 Sat Art (Measured) 98 (H) 90 - 95 % eGFR Collection Time: 03/22/24 9:47 PM Result Value Ref Range eGFR >90 >=60 mL/min/1.73 m2 Calcium, ionized, whole blood Collection Time: 03/22/24 9:47 PM Result Value Ref Range Ca, ionized, bld 4.46 (L) 4.50 - 5.10 mg/dL Oxyhemoglobin, pulmonary artery Collection Time: 03/22/24 9:51 PM Result Value Ref Range Oxyhemoglobin, PA 56.4 % POCT glucose Collection Time: 03/22/24 10:15 PM Result Value Ref Range Glucose, POC 137 70 - 199 mg/dL XR Chest 1 View Result Date: 03/22/2024 Findings as described above. Electronically signed by: Hamzah Mackey M.D. Plan: NEURO: # Acute pain - 2/2 surgical procedure - CHAVO APAP - PRN oxycodone - PRN Fentanyl while intubated - Continue to follow pain levels, pain goal < 4 # Acute agitation requiring sedation - Propofol gtt while intubated - RASS goal 0 to -2 - wean as able for fast track extubation # TIA, history of - 03/09: pt with left arm and leg numbness, HCT without acute process, resolution of symptoms - home regimen: asa and statin # anxiety, chronic # depression, chronic - home regimen: seroquel, no recent refill of bupropion per chart review - resume when appropriate # restless leg syndrome, chronic # insomnia, chronic - home regimen: lunesta, ropinirole - hold home regimen in the acute setting - resume ropinirole when appropriate # alcohol use disorder, history of - per chart review, pt with prior hx of alcohol use, with history of withdrawal and seizure x1 - per pt report, has been sober x1 year - continue to monitor CV: # aortic stenosis, chronic #post op cardiogenic and vasoplegic shock, expected - CTS Primary - 03/22: s/p AVR with Dr. Baldwin - Pre-operative and postoperative JAVIER w/ EF 60% - goal CI >2 - goal SBP 90-110 per CTS - NE/Vaso for MAP >65 Epi for CI >2.2 - Epicardial wires in place- change to 90 bpm AAI - Thoracostomy tubes/mediastinal tubes in place x2 (mediastinal x1, left pleural x1), monitor output, will notify CTS for output > 200 mL/hr for 2-4 hours - PAC in place, noted on CXR - ASA daily - resume statin per CTS #small pericardial effusion Noted on POCUS, ~1cm, d/w CTS, no early diastolic collapse of RV Frequent stripping chest tubes to prevent clots Frequent POCUS to evaluate effusion Monitor CVP and PA pressures closely CTS aware # paroxysmal SVT, chronic - home regimen: diltiazem, metoprolol, warfarin - resume regimen per CTS - optimize electrolytes # HTN, chronic # HLD, chronic - home regimen: rosuvastatin, metoprolol - resume per CTS - goal normotension postoperatively \ PULM: # Short-term Mechanical Ventilation with Anticipated Extubation - CXR as above Active titration of mech vent for Sat >92% Recommend lung protective ventilation - aggressive pulm hygiene once extubated: PT/OT, IS, OOBTC #Right sided effusion, presumed hemothorax D/w Dr Baldwin, would like to watch for now and give time for chest tubes to drain # NICOLE, chronic - compliant with CPAP - CPAP at night once extubated - NICOLE precautions # current smoker - pulm hygiene as above - offer smoking cessation education when appropriate GI: Diet: NPO with plans to advance diet once extubated Bowel regimen: docusate, senna PUD PPx: famotidine ENDO: # Glycemic Control - Insulin gtt per protocol - continue to monitor BG RENAL: 15/0.85 - continue to follow creatinine, BUN, urine output, electrolytes HEME: # ABLA # thrombocytopenia X2 RBC, 1 FFP, 1 plt, 2 cryo - CT with borderline high output, continue to monitor closely - ongoing reassessment in the immediate post-operative period - Continue to monitor on CBC, transfuse as clinically indicated 9.3/26.4 Plt 101 ID: # Leukocytosis - Likely reactive in the setting of cardiac surgery - Continue to follow fever curve and WBC - Culture and antibiose as clinically indicated WBC 12.8 INTENSIVE CARE UNIT STANDARDS OF CARE: DVT ppx: Holding chemical dvt ppx in the immediate post-op period, SCDs Access: R IJ introducer, left radial arterial line, PIVs Goals of care: full code [facility] PM Assessment and plan has been reviewed with attending, Dr Ajit Portillo NP Critical Care Performed by: Marlo Portillo NP Authorized by: Marlo Portillo NP CRITICAL CARE: Team: [facility] Shift: PM Level of Billing: Critical Care My time spent with this patient was 105 minutes: Critical Provider Statement: I have seen and examined the patient on this day of service. I have reviewed and confirmed the history, physical exam, laboratory and radiologic data as documented in thesigned ICU note. I have reviewed and discussed my treatment plan with the ICU team and other medical/bridal stylist sales consultant staff, making frequent assessments and decisions regarding this patient's complex medical care. Critical Care time was exclusive of time spent performing separately billed procedures, treating other patients, and teaching. This time was in addition to and separate from critical care provided by other practitioners in my group on this day of service. Critical Care was necessary to treat or prevent imminent or life-threatening deterioration of the following conditions: I spent time reviewing and interpreting data from bedside monitors, laboratory results, and imaging, I spent time documenting in the medical record and I spent time discussing the management of this critically ill patient with consultants and the medical staff Cosigned by Carlos Alberto Sandoval MD at 03/24/2024 1:22 AM CDT * Juan Tapia, [facility] - 03/22/2024 12:43 PM CDT Images from the original note were not included. Pharmacokinetic Consult - Vancomycin Dosing Stephan Bobby Madden is a 58 y.o. male who has been consulted for vancomycin dosing for surgical prophylaxis . Relevant clinical data and objective history reviewed: Creatinine Date Value Ref Range Status 03/18/2024 0.65 (L) 0.80 - 1.30 mg/dL Final BUN Date Value Ref Range Status 03/18/2024 6 6 - 25 mg/dL Final Estimated Creatinine Clearance: 137.1 mL/min (A) (by Cockcroft-Gault based on SCr of 0.65 mg/dL (L)). No intake/output data recorded. Lab Results Component Value Date/Time WBC 10.8 (H) 03/22/2024 12:31 PM HGB 11.8 (L) 03/22/2024 12:31 PM HGB 10.3 (L) 03/22/2024 11:17 AM HCT 33.2 (L) 03/22/2024 12:31 PM HCT 31.0 (L) 03/22/2024 11:17 AM MCV 85.6 03/22/2024 12:31 PM LABPLAT 85 (L) 03/22/2024 12:31 PM Temp Readings from Last 3 Encounters: 03/22/24 36.6 ??C (97.8 ??F) 03/18/24 36.9 ??C (98.4 ??F) (Oral) 02/23/24 36.6 ??C (97.8 ??F) (Oral) Patient Weight 03/22/24 76.4 kg (168 lb 8 oz) Abnormal Microbiology Results (10 days) Collected Updated Procedure Result Status 03/18/2024 1216 03/18/2024 1242 Urinalysis reflex to microscopic and culture Urine, clean voided [[id number]] (Abnormal) Urine, clean voided Final result Component Value Color, ur Yellow Clarity, ur Cloudy Specific gravity, ur 1.012 pH, urine 8.0 Protein, ur ql Negative Glucose, ur ql Negative Ketones, ur Negative Bilirubin, ur Negative Blood, ur Negative Urobilinogen, ur 2.0 Nitrite, ur Negative Leukocyte esterase, ur Negative UA reflex comment Reflex conditions for microscopic UA and culture not met. Assessment/Plan The patient will be started on vancomycin utilizing scheduled dosing based on actual body weight. Will initiate dosing at vancomycin 1250 mg every 12 hours x 3 doses starting 03/22/24 at 20:00. Day 1 of therapy. Juan Tapia RPh * [place] Jones, HUY - 03/22/2024 11:16 AM CDTAssociated Order(s): Critical Care Post-Procedure Diagnose(s): Aortic valve stenosis, etiology of cardiac valve disease unspecified Images from the original note were not included. Critical Care Medicine Consult Note Subjective Patient is a 58 y.o. male with chief complaint of SOB and fatigue x1 year, no s/p AVR. HPI: 58 yo male with worsening SOB and fatigue with exertion x1 year. Admitted to ICU s/p planned AVR with Dr. Baldwin. Uncomplicated OR course, AVR with 23mm Leonidas, easy airway, received 750ml cell saver, 2100ml crystalloid, was noted to be oozy at the end of the case. Upon arrival to ICU was off pressors, had 140ml CT output, and plt 85 for which he received 1u plts. PMH: aortic stenosis, sleep apnea (CPAP compliant), paroxysmal atrial fibrillation, SVT, current smoker, and alcohol abuse with history of sz and withdrawal (per chart review has been sober x1 year),anx/depression, HTN/HLD, HFpEF EF 60-70%, TIA Past Medical History: Diagnosis Date Arthritis Atrial fibrillation (CMS/HCC) ([facility]) Depression H/O ETOH abuse went to rehab for 3 months Heart murmur Hypertension Nonrheumatic aortic (valve) stenosis Paroxysmal SVT (supraventricular tachycardia) (HCC) Seizures (HCC) 1 x 3-4 years ago d/t ETHO Sleep apnea uses cpap SOB (shortness of breath) end of day chest feels tight and uncomfortable TIA (transient ischemic attack) hosp 03/08/2024 - 03/10/2024 Past Surgical History: Procedure Laterality Date CARDIAC CATHETERIZATION 02/23/2024 COLONOSCOPY OTHER SURGICAL HISTORY JAVIER TYMPANOSTOMY TUBE PLACEMENT No Known Allergies Social History Tobacco Use Smoking status: Former Current packs/day: 0.50 Types: Cigarettes Smokeless tobacco: Never Tobacco comments: QUIT SMOKING 03/17/2024 Substance and Sexual Activity Drug use: Yes Types: Marijuana Comment: smokes and uses edibles, will be doing only edibles Sexual activity: Defer Alcohol Use: Not At Risk (03/18/2024) AUDIT-C Frequency of Alcohol Consumption: Never Average Number of Drinks: Patient does not drink Frequency of Binge Drinking: Never Family History Problem Relation Age of Onset Cancer Mother Cancer, unknown; Cause of : Cancer, unknown Other Father Alive and well; HOME MEDICATIONS : aspirin (ASPIR-81) 81 mg tablet buPROPion SR (ZYBAN) 150 mg 12 hr tablet dilTIAZem CD 240 mg 24 hr capsule eszopiclone (LUNESTA) 3 mg tablet metoprolol (LOPRESSOR) 25 mg tablet naltrexone (DEPADE) 50 mg tablet QUEtiapine XR (SEROquel XR) 50 mg tablet extended release 24 hr rOPINIRole (REQUIP) 4 mg tablet rosuvastatin (CRESTOR) 40 mg tablet warfarin (COUMADIN) 5 mg tablet Medications: Medications Prior to Admission Medication Sig Dispense Refill Last Dose aspirin (ASPIR-81) 81 mg tablet take 1 tablet by oral route every day (Patient taking differently: Take 1 tablet (81 mg total) by mouth nightly) 0 0 03/21/2024 at 2200 buPROPion SR (ZYBAN) 150 mg 12 hr tablet Take 1 tablet (150 mg total) by mouth 2 (two) times a day 03/22/2024 at 0400 dilTIAZem CD 240 mg 24 hr capsule Take 1 capsule (240 mg total) by mouth every evening 03/21/2024 eszopiclone (LUNESTA) 3 mg tablet Take 1 tablet (3 mg total) by mouth nightly at bedtime 03/21/2024 metoprolol (LOPRESSOR) 25 mg tablet Take 2 tablets (50 mg total) by mouth 2 (two) times a day 03/22/2024 at 0400 naltrexone (DEPADE) 50 mg tablet Take 1 tablet (50 mg total) by mouth nightly 03/21/2024 QUEtiapine XR (SEROquel XR) 50 mg tablet extended release 24 hr Take 1 tablet (50 mg total) by mouth 2 (two) times a day 03/22/2024 at 0400 rOPINIRole (REQUIP) 4 mg tablet Take 1 tablet (4 mg total) by mouth 2 (two) times a day as needed 03/21/2024 rosuvastatin (CRESTOR) 40 mg tablet Take 1 tablet (40 mg total) by mouth nightly 03/21/2024 warfarin (COUMADIN) 5 mg tablet Take 1 tablet (5 mg total) by mouth nightly 03/17/2024 Scheduled Medications Medication Dose Route Frequency acetaminophen (TYLENOL) tablet 1,000 mg 1,000 mg oral Q6H CHAVO Or acetaminophen (TYLENOL) 32 mg/mL oral liquid 1,000 mg 1,000 mg feeding tube Q6H CHAVO Or acetaminophen (TYLENOL) suppository 650 mg 650 mg rectal Q6H CHAVO albuterol 2.5 mg /3 mL (0.083 %) nebulizer solution 2.5 mg 2.5 mg nebulization Q6H CHAVO (RT) aspirin enteric coated tablet 81 mg 81 mg oral Daily Or aspirin chewable tablet 81 mg 81 mg feeding tube Daily ceFAZolin (ANCEF) 1 gram/10 mL in sterile water (premix) 1,000 mg 1,000 mg intravenous Q8H famotidine (PEPCID) injection 20 mg 20 mg intravenous Daily polyethylene glycol (MIRALAX) packet 17 g 17 g oral Daily senna-docusate (PERICOLACE) 8.6-50 mg per tablet 2 tablet 2 tablet oral BID sodium chloride 0.9% flush 0.5-20 mL 0.5-20 mL intra-catheter Q8H CHAVO vancomycin 1250 mg/250 mL in sodium chloride 0.9% (premix) 1,250 mg 15 mg/kg intravenous Q12H Continuous Medications: Current Facility-Administered Medications Medication Dose Route Frequency Last Admin clevidipine 0-32 mg/hr intravenous Titrated Stopped at 03/22/24 1445 dexmedeTOMIDine 0-1.5 mcg/kg/hr intravenous Titrated Lactated Ringer's 30 mL/hr intravenous Continuous Restarted at 03/22/24 1220 norepinephrine 0-2 mcg/kg/min intravenous Titrated 0.07 mcg/kg/min at 03/22/24 1605 propofol 0-50 mcg/kg/min intravenous Titrated 50 mcg/kg/min at 03/22/24 1430 sodium chloride 0.9% 10 mL/hr intravenous Continuous PRN sodium chloride 0.9% 20 mL/hr intravenous Continuous 20 mL/hr at 03/22/24 1240 sodium chloride 0.9% 0-250 mL intravenous Once sodium chloride 0.9% 3-12 mL/hr intra-catheter Continuous PRN Medications: albumin, 25 g, 12.5 g at 03/22/24 1600 sodium chloride 0.9%, 30 mL fentaNYL, 50 mcg, 50 mcg at 03/22/24 1545 magnesium sulfate, 2 g oxyCODONE, 5 mg potassium chloride, 20 mEq prochlorperazine, 5 mg sodium chloride 0.9%, 0.5-20 mL sodium chloride 0.9%, 10 mL/hr Review of Systems: Unable to perform ROS as pt intubated and sedated Objective Vitals: Arrival Vitals [03/22/24 0622] Temp 36.6 ??C (97.8 ??F) Pulse 58 Resp 19 BP 101/61 SpO2 96 % Temp src Heart Rate Source Patient Position BP Location FiO2 (%) 24hr Min/Max: Temp Min: 35.4 ??C (95.7 ??F) Max: 36.6 ??C (97.8 ??F) Pulse Min: 58 Max: 90 BP Min: 101/61 Max: 129/57 Resp Min: 16 Max: 19 SpO2 Min: 96 % Max: 100 % FiO2 (%) Min: 40 % Max: 100 % Current Vitals: BP 129/57 Pulse 90 Temp (!) 35.4 ??C (95.7 ??F) (Core) Resp 16 Ht 183 cm (6' 0.05 ) Wt 76.4 kg (168 lb 6.9 oz) SpO2 100% BMI 22.81 kg/m?? Intake/Output: No intake/output data recorded. I/O this shift: In: 2466 [I.V.:2100; Blood:266; IV Piggyback:100] Out: 1975 [Urine:965; Blood:500; Chest Tube:510] LDA: Introducer 03/22/24 Right Internal jugular (Active) Placement Date/Time: 03/22/24 (c) 0858 Hand Hygiene Performed: Yes Orientation: Right Location: Internal jugular Description (optional): multi-lumen access catheter (MAC) Number of days: 0 PA Catheter 8 Fr. Right Other (Comment) (Active) Placement Date/Time: 03/22/24 (c) 0858 Site Prep: Chlorhexidine Sheath Size: 8 Fr. Line Orientation: Right Sheath Insertion Site: Other (Comment) Number of days: 0 Arterial Line 03/22/24 Left Radial (Active) Placement Date/Time: 03/22/24 (c) 0855 Size: 20 G Orientation: Left Location: Radial Securement Method: Taped;Transparent dressing Number of days: 0 ETT ETT - single 8 mm (Active) Placement Date/Time: 03/22/24 (c) 0858 Mask Ventilation: Vent by mask Technique: Direct laryngoscopy ETT Type: ETT - single Single Lumen Tube Size: 8 mm Cuffed: Yes Laryngoscope: Crystal Blade Size: 4 Location: Oral Grade View: Full view o... Number of days: 0 Urethral Catheter Double-lumen;Straight-tip (Active) Placement Date/Time: 03/22/24 0816 Inserted by: Venkat Yeager RN Catheter Type: (c) Double-lumen;Straight-tip Tube Size (Fr.): 16 Fr Catheter Balloon Size: 10 mL Urine Returned: Yes Number of days: 0 Y Chest Tube A and B A Mediastinal 28 Fr. B Right Pleural 24 Fr. (Active) Placement Date/Time: 03/22/24 1043 Inserted by: Dr. Baldwin Tube Number A: A Chest Tube Location A: Mediastinal Size (Fr.) A: 28 Fr. Tube Number B: B Chest Tube Orientation B: Right Chest Tube Location B: Pleural Size (Fr.) B: (c) 24 Fr. Chest T... Number of days: 0 Vent settings for last 24 hours: Adult Vent Mode: Volume control/Assist control FiO2 (%): [40 %-100 %] 40 % S RR: [16] 16 S VT: [600 mL] 600 mL PEEP/CPAP/EPAP (cm H2O): [5 cm H20] 5 cm H20 MAP (cmH2O): [8.2-8.9] 8.7 Hemodynamic parameters for last 24 hours: PAP: (14-28)/(8-17) 28/ CVP: [2 mmHg-9 mmHg] 8 mmHg SVO2: [62 %-84 %] 65 % CO: [4.1 L/min-5.7 L/min] 4.5 L/min CI: [2.1 L/min/m2-2.9 L/min/m2] 2.3 L/min/m2 Physical Exam: General: critically ill, intubated and sedation Neuro: sedated, no command following Pulm: intubated, on mechanical ventilation CV: 100% a- paced at 80 BPM, currently off pressors GI:abd flat, hypoactive bowel sounds Extremities: cool to touch, no edema Lines: RIJ introducer with PAC, left radial art line, CTx2, reyes Wounds: midline sternal wound with dressing in place Lab/Radiology/Diagnostic Review: Laboratory review: reviewed the laboratory result(s) in the last 24 hours Recent Results (from the past 24 hour(s)) Prepare RBC: 4 Units Collection Time: 03/22/24 6:00 AM Result Value Ref Range Product code J2972L44 Unit Number [id number] Product Blood Type BPOS Dispense Status CROSSMATCHED Product code A2250E76 Unit Number [id number] Product Blood Type BPOS Dispense Status CROSSMATCHED Product code J6442O68 Unit Number [id number] Product Blood Type BPOS Dispense Status CROSSMATCHED Product code Z9378Y95 Unit Number [id number] Product Blood Type BPOS Dispense Status CROSSMATCHED Prepare platelets: 2 Units Collection Time: 03/22/24 6:00 AM Result Value Ref Range Product code R3923H20 Unit Number [id number] Product Blood Type OPOS Dispense Status ISSUED Type and screen Collection Time: 03/22/24 6:24 AM Result Value Ref Range ABO Rh B Positive Beatriz, indirect Negative Protime-INR Collection Time: 03/22/24 6:46 AM Result Value Ref Range PT 12.3 9.7 - 13.0 sec INR 1.14 0.90 - 1.20 POC Activated Clotting Time, High Range Collection Time: 03/22/24 8:36 AM Result Value Ref Range ACT 98 87 - 138 sec POC Blood Gas and Chemistries, Arterial - Collection Time: 03/22/24 8:38 AM Result Value Ref Range pH, Art POC 7.42 7.35 - 7.45 pCO2, Art POC 40 35 - 45 mmHg pO2, Art POC >500 (H) 83 - 108 mmHg Na, POC 137 135 - 145 mmol/L K POC 3.9 3.3 - 4.9 mmol/L Ionized Ca, POC 4.93 4.50 - 5.10 mg/dL Glucose, POC 112 70 - 199 mg/dL Lactate, POC <0.5 (L) 0.7 - 2.0 mmol/L SO2 (jules) arterial 100 (H) 90 - 95 % Total CO2, Art POC 27 21 - 30 mmol/L BE, art, POC 1 mmol/L HCO3, Art POC 26 20 - 30 mmol/L Hct, POC 42.0 38.9 - 50.3 % Total Hb, POC 14.1 13.0 - 17.5 g/dL POC Activated Clotting Time, High Range Collection Time: 03/22/24 9:02 AM Result Value Ref Range ACT 918 (H) 87 - 138 sec POC Activated Clotting Time, High Range Collection Time: 03/22/24 9:34 AM Result Value Ref Range ACT 805 (H) 87 - 138 sec POC Blood Gas and Chemistries, Arterial - Collection Time: 03/22/24 9:36 AM Result Value Ref Range pH, Art POC 7.35 7.35 - 7.45 pCO2, Art POC 44 35 - 45 mmHg pO2, Art POC 316 (H) 83 - 108 mmHg Na, POC 134 (L) 135 - 145 mmol/L K POC 5.3 (H) 3.3 - 4.9 mmol/L Ionized Ca, POC 4.45 (L) 4.50 - 5.10 mg/dL Glucose, POC 133 70 - 199 mg/dL Lactate, POC 0.6 (L) 0.7 - 2.0 mmol/L SO2 (jules) arterial 100 (H) 90 - 95 % Total CO2, Art POC 26 21 - 30 mmol/L BE, art, POC -1 mmol/L HCO3, Art POC 24 20 - 30 mmol/L Hct, POC 31.0 (L) 38.9 - 50.3 % Total Hb, POC 10.3 (L) 13.0 - 17.5 g/dL Platelet count Collection Time: 03/22/24 10:10 AM Result Value Ref Range Plt 100 (L) 150 - 400 K/cumm POC Activated Clotting Time, High Range Collection Time: 03/22/24 10:10 AM Result Value Ref Range ACT 672 (H) 87 - 138 sec POC Blood Gas and Chemistries, Arterial - Collection Time: 03/22/24 10:13 AM Result Value Ref Range pH, Art POC 7.38 7.35 - 7.45 pCO2, Art POC 39 35 - 45 mmHg pO2, Art POC 274 (H) 83 - 108 mmHg Na, POC 134 (L) 135 - 145 mmol/L K POC 5.1 (H) 3.3 - 4.9 mmol/L Ionized Ca, POC 4.57 4.50 - 5.10 mg/dL Glucose, POC 159 70 - 199 mg/dL Lactate, POC 0.6 (L) 0.7 - 2.0 mmol/L SO2 (jules) arterial 100 (H) 90 - 95 % Total CO2, Art POC 24 21 - 30 mmol/L BE, art, POC -2 mmol/L HCO3, Art POC 24 20 - 30 mmol/L Hct, POC 30.0 (L) 38.9 - 50.3 % Total Hb, POC 10.1 (L) 13.0 - 17.5 g/dL POC Activated Clotting Time, High Range Collection Time: 03/22/24 10:36 AM Result Value Ref Range ACT 546 (H) 87 - 138 sec POC Blood Gas and Chemistries, Arterial - Collection Time: 03/22/24 10:38 AM Result Value Ref Range pH, Art POC 7.33 (L) 7.35 - 7.45 pCO2, Art POC 42 35 - 45 mmHg pO2, Art POC 229 (H) 83 - 108 mmHg Na, POC 134 (L) 135 - 145 mmol/L K POC 6.1 (Critical) 3.3 - 4.9 mmol/L Ionized Ca, POC 4.67 4.50 - 5.10 mg/dL Glucose, POC 160 70 - 199 mg/dL Lactate, POC 0.8 0.7 - 2.0 mmol/L SO2 (jules) arterial 100 (H) 90 - 95 % Total CO2, Art POC 23 21 - 30 mmol/L BE, art, POC -4 mmol/L HCO3, Art POC 22 20 - 30 mmol/L Hct, POC 30.0 (L) 38.9 - 50.3 % Total Hb, POC 10.1 (L) 13.0 - 17.5 g/dL POC Activated Clotting Time, High Range Collection Time: 03/22/24 11:15 AM Result Value Ref Range ACT 104 87 - 138 sec POC Blood Gas and Chemistries, Arterial - Collection Time: 03/22/24 11:17 AM Result Value Ref Range pH, Art POC 7.38 7.35 - 7.45 pCO2, Art POC 43 35 - 45 mmHg pO2, Art POC 417 (H) 83 - 108 mmHg Na, POC 136 135 - 145 mmol/L K POC 5.1 (H) 3.3 - 4.9 mmol/L Ionized Ca, POC 4.50 4.50 - 5.10 mg/dL Glucose, POC 152 70 - 199 mg/dL Lactate, POC 0.7 0.7 - 2.0 mmol/L SO2 (jules) arterial 100 (H) 90 - 95 % Total CO2, Art POC 27 21 - 30 mmol/L BE, art, POC 0 mmol/L HCO3, Art POC 25 20 - 30 mmol/L Hct, POC 31.0 (L) 38.9 - 50.3 % Total Hb, POC 10.3 (L) 13.0 - 17.5 g/dL Calcium, ionized, whole blood Collection Time: 03/22/24 12:30 PM Result Value Ref Range Ca, ionized, bld 4.74 4.50 - 5.10 mg/dL POCT glucose Collection Time: 03/22/24 12:30 PM Result Value Ref Range Glucose, POC 120 70 - 199 mg/dL Basic metabolic panel Collection Time: 03/22/24 12:31 PM Result Value Ref Range Sodium 141 135 - 145 mmol/L Potassium, pl 4.7 3.3 - 4.9 mmol/L Chloride 109 97 - 110 mmol/L CO2 23 22 - 32 mmol/L Anion gap 9 2 - 15 mmol/L BUN 12 6 - 25 mg/dL Creatinine 0.77 (L) 0.80 - 1.30 mg/dL Glucose 134 70 - 199 mg/dL Calcium 8.1 (L) 8.5 - 10.3 mg/dL Blood gas, arterial Collection Time: 03/22/24 12:31 PM Result Value Ref Range pH, Art 7.37 7.35 - 7.45 PCO2, Arterial 42 35 - 45 mmHg PO2, Arterial 446 (H) 83 - 108 mmHg HCO3 Art (Calculated) 23 20 - 30 mmol/L BE, art -1 mmol/L O2 Sat Art (Measured) 100 (H) 90 - 95 % CBC without differential Collection Time: 03/22/24 12:31 PM Result Value Ref Range WBC 10.8 (H) 3.8 - 9.9 K/cumm Hgb 11.8 (L) 13.0 - 17.5 g/dL Hct 33.2 (L) 38.9 - 50.3 % Plt 85 (L) 150 - 400 K/cumm MPV 9.5 9.1 - 12.3 fL RBC 3.88 (L) 4.30 - 5.80 M/cumm MCV 85.6 81.3 - 96.4 fL MCH 30.4 27.1 - 33.3 pg MCHC 35.5 32.3 - 35.7 g/dL RDW CV 13.5 11.1 - 14.9 % RDW SD 41.8 35.7 - 48.1 fL NRBC abs 0.00 0.00 - 0.01 K/cumm Protime-INR Collection Time: 03/22/24 12:31 PM Result Value Ref Range PT 15.6 (H) 9.7 - 13.0 sec INR 1.43 (H) 0.90 - 1.20 aPTT Collection Time: 03/22/24 12:31 PM Result Value Ref Range aPTT 33 28 - 38 sec Magnesium Collection Time: 03/22/24 12:31 PM Result Value Ref Range Magnesium 2.7 (H) 1.4 - 2.5 mg/dL eGFR Collection Time: 03/22/24 12:31 PM Result Value Ref Range eGFR >90 >=60 mL/min/1.73 m2 POCT glucose Collection Time: 03/22/24 1:00 PM Result Value Ref Range Glucose, POC 119 70 - 199 mg/dL POCT glucose Collection Time: 03/22/24 2:03 PM Result Value Ref Range Glucose, POC 114 70 - 199 mg/dL CBC without differential Collection Time: 03/22/24 3:11 PM Result Value Ref Range WBC 14.0 (H) 3.8 - 9.9 K/cumm Hgb 10.2 (L) 13.0 - 17.5 g/dL Hct 28.5 (L) 38.9 - 50.3 % Plt 121 (L) 150 - 400 K/cumm MPV 9.7 9.1 - 12.3 fL RBC 3.33 (L) 4.30 - 5.80 M/cumm MCV 85.6 81.3 - 96.4 fL MCH 30.6 27.1 - 33.3 pg MCHC 35.8 (H) 32.3 - 35.7 g/dL RDW CV 13.6 11.1 - 14.9 % RDW SD 42.4 35.7 - 48.1 fL NRBC abs 0.00 0.00 - 0.01 K/cumm Basic metabolic panel Collection Time: 03/22/24 3:11 PM Result Value Ref Range Sodium 143 135 - 145 mmol/L Potassium, pl 4.4 3.3 - 4.9 mmol/L Chloride 111 (H) 97 - 110 mmol/L CO2 24 22 - 32 mmol/L Anion gap 8 2 - 15 mmol/L BUN 12 6 - 25 mg/dL Creatinine 0.80 0.80 - 1.30 mg/dL Glucose 137 70 - 199 mg/dL Calcium 7.8 (L) 8.5 - 10.3 mg/dL Calcium, ionized, whole blood Collection Time: 03/22/24 3:11 PM Result Value Ref Range Ca, ionized, bld 4.64 4.50 - 5.10 mg/dL Blood gas, arterial Collection Time: 03/22/24 3:11 PM Result Value Ref Range pH, Art 7.34 (L) 7.35 - 7.45 PCO2, Arterial 45 35 - 45 mmHg PO2, Arterial 138 (H) 83 - 108 mmHg HCO3 Art (Calculated) 23 20 - 30 mmol/L BE, art -1 mmol/L O2 Sat Art (Measured) 99 (H) 90 - 95 % aPTT Collection Time: 03/22/24 3:11 PM Result Value Ref Range aPTT 35 28 - 38 sec Protime-INR Collection Time: 03/22/24 3:11 PM Result Value Ref Range PT 15.4 (H) 9.7 - 13.0 sec INR 1.42 (H) 0.90 - 1.20 Fibrinogen Collection Time: 03/22/24 3:11 PM Result Value Ref Range Fibrinogen 156 (L) 170 - 400 mg/dL Magnesium Collection Time: 03/22/24 3:11 PM Result Value Ref Range Magnesium 2.4 1.4 - 2.5 mg/dL eGFR Collection Time: 03/22/24 3:11 PM Result Value Ref Range eGFR >90 >=60 mL/min/1.73 m2 Plan of Care: NEURO: # Acute pain - 2/2 surgical procedure - CHAVO APAP - PRN oxycodone - PRN Fentanyl while intubated - Continue to follow pain levels, pain goal < 4 # Acute agitation requiring sedation - Propofol gtt while intubated - RASS goal 0 to -2 - wean as able for fast track extubation # TIA, history of - 03/09: pt with left arm and leg numbness, HCT without acute process, resolution of symptoms - home regimen: asa and statin # anxiety, chronic # depression, chronic - home regimen: seroquel, no recent refill of bupropion per chart review - resume when appropriate # restless leg syndrome, chronic # insomnia, chronic - home regimen: lunesta, ropinirole - hold home regimen in the acute setting - resume ropinirole when appropriate # alcohol use disorder, history of - per chart review, pt with prior hx of alcohol use, with history of withdrawal and seizure x1 - per pt report, has been sober x1 year - continue to monitor CV: # aortic stenosis, chronic - CTS Primary - 03/22: s/p AVR with Dr. Baldwin - Pre-operative and postoperative JAVIER w/ EF 60% - goal CI >2 - goal SBP 90-110 per CTS - clevidipine as needed for above SBP goal - NE as needed for above SBP goal - Epicardial wires in place- AAI back up at 70 bmp, pt currently in NSR - Thoracostomy tubes/mediastinal tubes in place x2 (mediastinal x1, left pleural x1), monitor output, will notify CTS for output > 200 mL/hr for 2-4 hours - PAC in place, noted on CXR - ASA daily - resume statin per CTS # paroxysmal SVT, chronic - home regimen: diltiazem, metoprolol, warfarin - resume regimen per CTS - optimize electrolytes # HTN, chronic # HLD, chronic - home regimen: rosuvastatin, metoprolol - resume per CTS - goal normotension postoperatively PULM: # Short-term Mechanical Ventilation with Anticipated Extubation - CXR as above - Will work toward extubation - aggressive pulm hygiene once extubated: PT/OT, IS, OOBTC # NICOLE, chronic - compliant with CPAP - CPAP at night once extubated - NICOLE precautions # current smoker - pulm hygiene as above - offer smoking cessation education when appropriate GI: Diet: NPO with plans to advance diet once extubated Bowel regimen: docusate, senna PUD PPx: famotidine ENDO: # Glycemic Control - Insulin gtt per protocol - continue to monitor BG RENAL: - continue to follow creatinine, BUN, urine output, electrolytes HEME: # ABLA # thrombocytopenia - In the setting of cardiac surgery, critical illness, serial phlebotomy - received 1 unit plt postop for plt 85 - CT with borderline high output, continue to monitor closely - ongoing reassessment in the immediate post-operative period - Continue to monitor on CBC, transfuse as clinically indicated Lab Results Component Value Date HGB 10.2 (L) 03/22/2024 ID: # Leukocytosis - Likely reactive in the setting of cardiac surgery - Continue to follow fever curve and WBC - Culture and antibiose as clinically indicated Lab Results Component Value Date WBC 14.0 (H) 03/22/2024 INTENSIVE CARE UNIT STANDARDS OF CARE: DVT ppx: Holding chemical dvt ppx in the immediate post-op period, SCDs Access: R IJ introducer, left radial arterial line, PIVs Goals of care: full code Assessment and plan has been reviewed with attending physician, Dr. Keller. Albania Jones NP Critical Care Performed by: Albania Jones NP Authorized by: Albania Jones NP CRITICAL CARE: Team: DWAYNE Shift: AM Level of Billing: Critical Care My time spent with this patient was 60 minutes: Critical Provider Statement: I have seen and examined the patient on this day of service. I have reviewed and confirmed the history, physical exam, laboratory and radiologic data as documented in thesigned ICU note. I have reviewed and discussed my treatment plan with the ICU team and other medical/bridal stylist sales consultant staff, making frequent assessments and decisions regarding this patient's complex medical care. Critical Care time was exclusive of time spent performing separately billed procedures, treating other patients, and teaching. This time was in addition to and separate from critical care provided by other practitioners in my group on this day of service. Critical Care was necessary to treat or prevent imminent or life-threatening deterioration of the following conditions: I spent time reviewing and interpreting data from bedside monitors, laboratory results, and imaging, I spent time discussing the management of this critically ill patient with consultants and the medical staff and I spent time documenting in the medical record Cosigned by Dequan Keller MD at 03/24/2024 4:14 PM CDT documented in this encounter H&P Notes * Ernie Baldwin MD - 03/22/2024 6:56 AM CDT I have reviewed the H&P, examined the patient, and endorse the findings as written. After review of the patient's neurologic work-up for TIA, we offered him AVR for his symptomatic severe aortic stenosis. We will avoid any ablation at this time as it seems his palpitations correspond likely to episodes of SVT and not atrial fibrillation in particular. Plan of Care : Based on the above findings, I consider Stephan Madden to be an acceptable risk for : Procedure(s): REPLACEMENT AORTIC VALVE, LAMBERTO Source Note - Re Hicks NP - 02/26/2024 9:00 AM CDT Cardiothoracic Surgery [place] History & Physical [facility] [employer] [facility] Dr. Levar Morillo & Dr. Ernie Baldwin Stephan Madden 1965 Reason for Consult: Aortic Stenosis Physician Requesting Consult: Tom De Jesus MD PCP: Carolyn Davis MD New or Established Patient: New Chief Complaint: shortness of breath and fatigue HPI: Stephan Madden is 58 y.o. White male with PMH of known aortic stenosis, sleep apnea, atrial fibrillation, current smoker, and alcohol abuse who presents to the office today for evaluation ofpossible SAVR. Patient and state that he has been experiencing shortness of breath and fatiguewith exertion for a year. He denies, chest pain, palpations, or syncope. Patient states he is normal ly very active around the house but now has to take breaks to catch his breath. Patient endorses having a history of alcohol abuse and 3 years ago experienced an alcohol-related seizure after goingthrough alcohol withdrawal. Also, history of naltrexone use to help with alcohol withdrawal but, has been off of this medication for 2-3 years now. He states he has quit drinking for one year now. Patient states that he can perform all of his ADLs and go up a flight stairs without difficultly. CT Attending: I agree with the above history and I saw and examined the patient myself on 02/26/2024. Mr. Madden is a 58-year-old male with a history of aortic stenosis, obstructive sleep apnea,paroxysmal atrial fibrillation, smoking and alcohol abuse, who was most recently worked up with progressive dyspnea on exertion and found to have severe aortic stenosis. The patient also notes significant and progressive fatigue over the last year. He notes lower extremity edema. He also notes somemild chest pain with exertion that is substernal. Echocardiography showed severe aortic stenosis with preserved heart function. Left heart catheterization showed no significant coronary artery disease. He is able to complete his activities of daily living without significant issues. He does note that he goes in and out of atrial fibrillation and is on amiodarone and metoprolol for therapy and is normally bradycardic at baseline with intermittent palpitations, during which he thinks he goes and atrial fibrillation. HOME MEDICATIONS : aspirin (ASPIR-81) 81 mg tablet buPROPion SR (ZYBAN) 150 mg 12 hr tablet dilTIAZem CD 240 mg 24 hr capsule eszopiclone (LUNESTA) 3 mg tablet metoprolol (LOPRESSOR) 25 mg tablet QUEtiapine XR (SEROquel XR) 50 mg tablet extended release 24 hr rOPINIRole (REQUIP) 4 mg tablet rosuvastatin (CRESTOR) 20 mg tablet No Known Allergies Past Medical History: Diagnosis Date Atrial fibrillation Depression Heart murmur Hypertension Nonrheumatic aortic (valve) stenosis Paroxysmal SVT (supraventricular tachycardia) (HCC) Seizures (HCC) 1 x 3-4 years ago d/t ETHO Sleep apnea uses cpap Past Surgical History: Procedure Laterality Date TYMPANOSTOMY TUBE PLACEMENT Family History Problem Relation Age of Onset CABG/Valve replacement Father Alive and well Cancer Mother Cancer, unknown; Cause of : Cancer, unknown Social History Tobacco Use Smoking status: Every Day Current packs/day: 1 PPD for 25 yrs. Types: Cigarettes Smokeless tobacco: Never Substance and Sexual Activity Drug use: None Types: Marijuana- daily use Sexual activity: Defer Alcohol Use: Quit drinking for 1 yr. Hx of ETOH abuse with seizure d/t ETOH withdrawal Review of Systems - Review of Systems negative except those described in HPI. Vital Signs: Vitals BP 118/60 Pulse 53 Resp 18 Ht 182.9 cm (6') Wt 79.4 kg (175 lb) BMI 23.73 kg/m?? Body surface area is 2.01 meters squared. Physical Exam Constitutional: General: He is not in acute distress. Appearance: He is not ill-appearing, toxic-appearing or diaphoretic. HENT: Head: Normocephalic and atraumatic. Eyes: Pupils: Pupils are equal, round, and reactive to light. Cardiovascular: Rate and Rhythm: Normal rate and regular rhythm. Pulses: Radial pulses are 1+ on the right side and 1+ on the left side. Dorsalis pedis pulses are 1+ on the right side and 1+ on the left side. Heart sounds: Murmur heard. Systolic murmur is present. Comments: HR -53 Pulmonary: Effort: Pulmonary effort is normal. Breath sounds: Normal breath sounds. Abdominal: General: There is no distension. Palpations: Abdomen is soft. Tenderness: There is no abdominal tenderness. Musculoskeletal: Right lower leg: No edema. Left lower leg: No edema. Skin: General: Skin is warm and dry. Capillary Refill: Capillary refill takes less than 2 seconds. Neurological: Mental Status: He is alert and oriented to person, place, and time. Psychiatric: Attention and Perception: Attention normal. Mood and Affect: Mood normal. Speech: Speech normal. Behavior: Behavior is cooperative. Labs: 02/20/2024 BUN 10 Creatinine 0.70 H&H 14.3 41.9 Data/Testing: I reviewed the following testing myself 02/18/2023 TTE: EF 65%, Moderate aortic stenosis. Peak Velocity of 3.00 m/s. Mean gradient of 20.0 mmHg. Valve area of 1.2 cm2. 02/23/2024 Cardiac Cath: LEFT MAIN CORONARY: Large caliber vessel, no significant focal stenosis. LEFT ANTERIOR DESCENDING ARTERY: Large caliber, tortuous vessel, tapers distally and wraps LV apex.No significant focal stenosis seen in the LAD or its diagonal branches LEFT CIRCUMFLEX ARTERY: Small to medium caliber nondominant vessel, gives rise to OM1 and OM2 branches without significant focal stenosis RIGHT CORONARY ARTERY: Large caliber, tortuous, dominant vessel, gives rise to medium to large caliber PDA and PLV branches. There is minimal diffuse plaque in the mid segment, otherwise no significant focal stenosis. LEFT VENTRICULOGRAM: Not performed HEMODYNAMIC ASSESSMENT: Opening pressure 101/59 mmHg, closing pressure 101/65 mmHg. 01/21/2024 TTE: EF 63%, Critical aortic stenosis. Mean gradient of 47.0 mmHg. Valve area of 0.8 cm2.Aortic cusps appear severely sclerotic. No aortic regurgitation. STS Risk Score: 1.22% Discussed with patient and family Assessment and Plan Assessment: 58-year-old male with symptomatic severe aortic stenosis (stage D1) and paroxysmal atrial fibrillation Plan: Mr. Madden has severe aortic stenosis that should be fixed to prevent future complications including sudden cardiac and worsening heart failure. We discussed aortic valve replacementwith risks including bleeding, infection, respiratory and renal dysfunction, stroke, possible pacemaker, and possible . Due to his history of paroxysmal atrial fibrillation, we will also do an ablation procedure of the left side of his heart to help minimize his atrial fibrillation burden. After a lengthy discussion about valve choice, the patient would like a mechanical aortic valve and is comfortable taking Coumadin for anticoagulation for the rest of his life. The patient understands the risks and benefits of surgery and would like to proceed. Maurisio Flower NP Cardiothoracic Surgery [facility] [phone] :59 AM Ernie Baldwin MD FACS Cardiothoracic [facility] Camouflage Specialist completed with [email or web address]. Camouflage Specialist variances may occur. Cosigned by Ernie Baldwin MD at 02/26/2024 3:14 PM CDT documented in this encounter Consult Notes * Gloria Christian, RD - 03/29/2024 12:32 PM CDTAssociated Order(s): IP CONSULT TO NUTRITION SERVICES NUTRITION ASSESSMENT Nutrition Status: Patient at risk for malnutrition, but does not meet ASPEN criteria for malnutrition. REASON FOR ASSESSMENT: Consult/Referral - Diet Education and Length of Stay Encounter Date: 03/29/24 12:32 PM Admission Date: 03/22/2024 LOS: 7 days HPI: Patient is a 58 y.o. male with PMH of known aortic stenosis, sleep apnea, atrial fibrillation, current smoker, and alcohol abuse who presents to the office today for evaluation of possible SAVR. Patient and state that he has been experiencing shortness of breath and fatigue with exertion for ayear. He denies, chest pain, palpations, or syncope. Patient states he is normally very active around the house but now has to take breaks to catch his breath. Patient endorses having a history of alcohol abuse and 3 years ago experienced an alcohol-related seizure after going through alcohol withdrawal. Also, history of naltrexone use to help with alcohol withdrawal but, has been off of this me dication for 2-3 years now. He states he has quit drinking for one year now. Patient states that hecan perform all of his ADLs and go up a flight stairs without difficultly. Pt s/p AV replacement on03/22/24. 03/29: Provided Vitamin K consistent education. Encouraged po intakes. Objective Past Medical History: Diagnosis Date Arthritis Atrial fibrillation (CMS/HCC) ([facility]) Depression H/O ETOH abuse went to rehab for 3 months Heart murmur Hypertension Nonrheumatic aortic (valve) stenosis Paroxysmal SVT (supraventricular tachycardia) ([facility]) Seizures ([facility]) 1 x 3-4 years ago d/t ETHO Sleep apnea uses cpap SOB (shortness of breath) end of day chest feels tight and uncomfortable TIA (transient ischemic attack) hosp 03/08/2024 - 03/10/2024 Past Surgical History: Procedure Laterality Date CARDIAC CATHETERIZATION 02/23/2024 COLONOSCOPY OTHER SURGICAL HISTORY JAVIER TYMPANOSTOMY TUBE PLACEMENT Social History Tobacco Use Smoking status: Former Current packs/day: 1.00 Average packs/day: 1 pack/day for 35.0 years (35.0 ttl pk-yrs) Types: Cigarettes Start date: 03/24/1989 Smokeless tobacco: Never Tobacco comments: QUIT SMOKING 03/17/2024 Substance and Sexual Activity Drug use: Yes Frequency: 14.0 times per week Types: Marijuana Comment: smokes and uses edibles, will be doing only edibles Sexual activity: Defer Alcohol Use: Not At Risk (03/24/2024) AUDIT-C Frequency of Alcohol Consumption: Never Average Number of Drinks: Patient does not drink Frequency of Binge Drinking: Never MEDICATION/LAB REVIEW: Scheduled Meds: acetaminophen, 1,000 mg, oral, Q6H CHAVO albuterol, 2.5 mg, nebulization, Q6H CHAVO (RT) amiodarone, 400 mg, oral, Daily aspirin, 81 mg, oral, Daily buPROPion SR, 150 mg, oral, BID dilTIAZem CD/XR/XT, 240 mg, oral, Daily with dinner enoxaparin, 1 mg/kg, subcutaneous, Q12H CHAVO famotidine, 20 mg, oral, BID furosemide, 40 mg, oral, Daily insulin lispro, 0-10 Units, subcutaneous, 5x daily (with meals, nightly, & 0200) losartan, 25 mg, oral, Daily methocarbamoL, 500 mg, oral, TID metoprolol tartrate, 25 mg, oral, BID polyethylene glycol, 17 g, oral, Daily QUEtiapine, 50 mg, oral, Nightly rOPINIRole, 4 mg, oral, BID rosuvastatin, 10 mg, oral, Nightly senna-docusate, 2 tablet, oral, BID sodium chloride 0.9%, 0.5-20 mL, intra-catheter, Q8H CHAVO warfarin, 7.5 mg, oral, Daily-1800 Continuous Infusions: sodium chloride 0.9%, 10 mL/hr PRN Meds: sodium chloride 0.9% dextrose OR dextrose glucagon oxyCODONE prochlorperazine sodium chloride 0.9% sodium chloride 0.9% Recent Labs Lab Units 03/29/24 0540 03/28/24 0630 03/27/24 1423 03/27/24 0213 03/26/24 1215 03/26/24 0430 SODIUM mmol/L 137 < > 139 < > 139 141 POTASSIUM PLASMA mmol/L 3.3 < > 3.6 < > 3.8 3.4 CHLORIDE mmol/L 100 < > 100 < > 100 102 CO2 mmol/L 25 < > 26 < > 27 30 BUN SERUM mg/dL 26* < > 25 < > 23 22 CREATININE mg/dL 0.73* < > 0.76* < > 0.80 0.78* [id number] mL/min/1.73 m2 >90 < > >90 < > >90 >90 CALCIUM mg/dL 9.0 < > 8.8 < > 9.0 8.3* PHOSPHORUS PLASMA mg/dL -- -- 3.8 -- 4.0 -- MAGNESIUM mg/dL -- -- 1.7 -- 2.0 2.1 < > = values in this interval not displayed. Recent Labs Lab Units 03/29/24 0540 03/29/24 0139 03/28/24 2019 03/28/24 1749 03/28/24 1158 03/28/24 0630 03/28/24 0127 GLUCOSE mg/dL 116 -- -- -- -- 119 -- POC GLUCOSE MONITOR mg/dL -- 123 175 133 141 -- 137 No results found for: ALT , AST , BILIRUBIN , ALKPHOS , LIPASE No results found for: HGBA1C , HDL , LDLCALC , CHOL , TRIG NURSING ASSESSMENT: Last BM Date: 03/27/24 Bowel Sounds (All Quadrants): Active Miguelangel Scale Score: 20 Skin Integrity: Surgical incision Edema: Trace Minute Ventilation (L/min): 11.3 L/min Vital Signs BP: 128/76 Temp: 36.9 ??C (98.4 ??F) Pulse: 87 Resp: 20 SpO2: 98 % Intake/Output Summary (Last 24 hours) at 03/29/2024 1232 Last data filed at 03/29/2024 0805 Gross per 24 hour Intake 835 ml Output 750 ml Net 85 ml Adult Malnutrition Scoring Tool (MST) What diet do you follow at home?: reg Have You Recently Lost Weight Without Trying?: No Have you been eating poorly because of a decreased appetite?: No Malnutrition Screening Tool (MST) Score: 0 Within the past 12 months, you worried that your food would run out before you got the money to buymore.: Never true Within the past 12 months, the food you bought just didn't last and you didn't have money to get more.: Never true Anthropometrics Weight: 76.6 kg (168 lb 12.8 oz) Admission Weight : 76.4 kg Weight Change: -1.33 kg (-2.93 lbs) IBW/kg (Calculated) : 80.9 kg Height: 183 cm (6' 0.05 ) Weight in (lb) to have BMI = 25: 184.2 BMI (Calculated): 22.9 BMI Classification: BMI 18.5 - 24.9 Normal Weight Wt Readings from Last 10 Encounters: 03/27/24 76.6 kg (168 lb 12.8 oz) 03/17/24 81.6 kg (180 lb) 02/26/24 79.4 kg (175 lb) 02/23/24 78 kg (172 lb) 01/06/24 82.1 kg (181 lb) 11/26/22 103.9 kg (229 lb) 08/20/22 103.4 kg (228 lb) 09/13/21 104.1 kg (229 lb 8 oz) 08/28/21 108.4 kg (239 lb) 08/29/20 107.5 kg (237 lb) ESTIMATED NEEDS: Total Kcal/kg Estimated Needs : 191.18 Kcal/k. Type of Weight Used for Estimated Kcals: Current Total Protein Estimated Needs (gm): 91.88 Protein Needs Based on g/k.2 Type of Weight Used for Estimated Protein : Current Total Fluid Estimated Needs: 1913.18 Fluid Needs Based on : 1 ml/kcal Type of Weight Used for Estimated Fluid Needs: Current Dietary Orders (From admission, onward) Start Ordered 03/23/24 2100 Bedtime snack At bedtime Comments: If bedtime BG is less than 100mg/dl, give patient a 15 gram carbohydrate snack. 03/23/24 1437 03/23/241909 Adult Diet Restricted; Low Fat, Low Chol, Low Na Diet effective now Question Answer Comment (CH) Diet type Restricted Fat / Sodium Restriction: Low Fat, Low Chol, Low Na 03/23/241909 Allergies: Reviewed. IMPRESSION: Pt POD 7 s/p AVR. + Sx incision to chest. Has tolerated heart healthy diet w fair and improving since surgery. Reported poor intakes prior to surgery due to getting dentures and difficulty chewing prior to admission but improved since dentures were placed. Denied N/V/D/C. GI WNL. Meds, labs reviewed. No lipid panel. Starting on warfarin. Cardiology/CTS requesting vitamin K consistent diet edu perpt/family request. ASPEN MALNUTRITION ASSESSMENT: Does not meet criteria NUTRITION FOCUSED PHYSICAL EXAM: Not clinically indicated, no concerns for malnutrition at this time. NUTRITION DIAGNOSIS: Nutrition Diagnosis 1: Food and nutrition-related knowledge deficit Related to: Lack of education, Food/Med interact Evidenced by: Patient interview (starting on warfarin) INTERVENTION(S): Summary: Education, nutrition, Communication, Initial assessment Provided heart healthy, vitamin K consistent diet edu. Pt/family understanding. Encouraged intakes of small, frequent meals for gradual weight gain due to increased needs. GOAL(S): Oral intake to meet 75% estimated nutritional needs by next assessment, Adequate nutrition to meet estimated needs by next assessment, Promote wound healing, Patient/caregiver able to teach back understanding of role of diet in disease process prior to discharge MONITORING/EVALUATION: Appetite, PO intake, Plan of care, Diet-related questions, Discharge plans, Electrolyte changes, Food preferences, I/O, Labs, Weight changes, Wound healing Diet Instructions Continue to follow a heart healthy diet that is low in sodium, trans fat and saturated fat. Read the nutrition facts label on packages. Aim to eat less than 2,000mg sodium per day (about 500-700 mg per meal). Do not add salt to foods and avoid foods that are high sources of sodium, such as fast foods, fried/breaded foods, canned goods, deli meats and gravies/sauces. Increase your intake of foods high in fiber, such as whole grains, fruits and vegetables. For questions, can call [facility] Dietitian's Office at [phone]. Additional resources available online from the [employer] at www.heart.org/en/healthy-living/healthy-eating Nutrition Follow-Up : 04/05/24 Gloria Christian MS, RD, LD * Silverio Santos Nduchijioke - 03/28/2024 12:42 PM CDT [id number] Urgent: Anoint: Yes Holy Com: Yes Bless: Yes Misc: in room and communed [facility] * EdwinfoxSilverio - 03/27/2024 1:36 PM CDT [id number] Urgent: Anoint: Yes Holy Com: No Bless: Yes Misc: Silent prayer offered. Patient was sleeping [facility] * Silverio Santos - 03/24/2024 2:25 PM CDT [id number] Urgent: Anoint:Yes Holy Com: No - unable to swallow Bless: Yes Misc: Brother in room [facility] * Silverio Santos - 03/23/2024 3:02 PM CDT [id number] Urgent: Anoint: Yes Holy Com: No Bless: Yes Misc: Brother and [id number] in room [facility] * Jolanta Quintero DO - 03/22/2024 3:10 PM CDTAssociated Order(s): IP CONSULT TO CARDIOLOGY CARDIOLOGY CONSULT DATE OF CONSULT: 03/22/2024 CHIEF COMPLAINT Status post AVR HPI Patient was requested to be seen in consultation by for severe aortic stenosis status post aortic valve replacement. Stephan Madden is a 58 y.o. male with hypertension, hyperlipidemia, PSVT, possible paroxysmal atrial fibrillation, history of alcohol abuse, TIA. Followed in the office by . Recently foundto have severe aortic stenosis. Seen by CT surgery, and presented for outpatient mechanical AVR. Patient is in the CVU, intubated and sedated. Had surgery earlier today. On Cleviprex, currently being weaned. On sedation. MEDICAL HISTORY Past Medical History: Diagnosis Date Arthritis Atrial fibrillation (CMS/HCC) ([facility]) Depression H/O ETOH abuse went to rehab for 3 months Heart murmur Hypertension Nonrheumatic aortic (valve) stenosis Paroxysmal SVT (supraventricular tachycardia) ([facility]) Seizures ([facility]) 1 x 3-4 years ago d/t ETHO Sleep apnea uses cpap SOB (shortness of breath) end of day chest feels tight and uncomfortable TIA (transient ischemic attack) hosp 03/08/2024 - 03/10/2024 Social History Tobacco Use Smoking status: Former Current packs/day: 0.50 Types: Cigarettes Smokeless tobacco: Never Tobacco comments: QUIT SMOKING 03/17/2024 Substance and Sexual Activity Drug use: Yes Types: Marijuana Comment: smokes and uses edibles, will be doing only edibles Sexual activity: Defer Alcohol Use: Not At Risk (03/18/2024) AUDIT-C Frequency of Alcohol Consumption: Never Average Number of Drinks: Patient does not drink Frequency of Binge Drinking: Never Family History Problem Relation Age of Onset Cancer Mother Cancer, unknown; Cause of : Cancer, unknown Other Father Alive and well; No Known Allergies Medications Prior to Admission Medication Sig Dispense Refill Last Dose aspirin (ASPIR-81) 81 mg tablet take 1 tablet by oral route every day (Patient taking differently: Take 1 tablet (81 mg total) by mouth nightly) 0 0 03/21/2024 at 2200 buPROPion SR (ZYBAN) 150 mg 12 hr tablet Take 1 tablet (150 mg total) by mouth 2 (two) times a day 03/22/2024 at 0400 dilTIAZem CD 240 mg 24 hr capsule Take 1 capsule (240 mg total) by mouth every evening 03/21/2024 eszopiclone (LUNESTA) 3 mg tablet Take 1 tablet (3 mg total) by mouth nightly at bedtime 03/21/2024 metoprolol (LOPRESSOR) 25 mg tablet Take 2 tablets (50 mg total) by mouth 2 (two) times a day 03/22/2024 at 0400 naltrexone (DEPADE) 50 mg tablet Take 1 tablet (50 mg total) by mouth nightly 03/21/2024 QUEtiapine XR (SEROquel XR) 50 mg tablet extended release 24 hr Take 1 tablet (50 mg total) by mouth 2 (two) times a day 03/22/2024 at 0400 rOPINIRole (REQUIP) 4 mg tablet Take 1 tablet (4 mg total) by mouth 2 (two) times a day as needed 03/21/2024 rosuvastatin (CRESTOR) 40 mg tablet Take 1 tablet (40 mg total) by mouth nightly 03/21/2024 warfarin (COUMADIN) 5 mg tablet Take 1 tablet (5 mg total) by mouth nightly 03/17/2024 Current Facility-Administered Medications: acetaminophen (TYLENOL) tablet 1,000 mg, 1,000 mg, oral, Q6H CHAVO OR acetaminophen (TYLENOL) 32 mg/mL oral liquid 1,000 mg, 1,000 mg, feeding tube, Q6H CHAVO OR acetaminophen (TYLENOL) suppository 650 mg, 650 mg, rectal, Q6H CHAVO, Marlo Rdz MD albumin 5 % bottle 25 g, 25 g, intravenous, Q15 Min PRN, Marlo Rdz MD albuterol 2.5 mg /3 mL (0.083 %) nebulizer solution 2.5 mg, 2.5 mg, nebulization, Q6H CHAVO (RT), Marlo Rdz MD, 2.5 mg at 03/22/24 1405 aspirin enteric coated tablet 81 mg, 81 mg, oral, Daily OR aspirin chewable tablet 81 mg, 81 mg, feeding tube, Daily, Marlo Rdz MD Carrier Fluids for Secondary Infusion - 0.9% Sodium Chloride, 30 mL, intravenous, PRN, Marlo Rdz MD ceFAZolin (ANCEF) 1 gram/10 mL in sterile water (premix) 1,000 mg, 1,000 mg, intravenous, Q8H, Marlo Rdz MD clevidipine (CLEVIPREX) 25 mg/50 mL (0.5 mg/mL) infusion (premix), 0-32 mg/hr, intravenous, Titrated, Ernei Baldwin MD, Last Rate: 2 mL/hr at 03/22/24 1434, 1 mg/hr at 03/22/24 1434 dexmedeTOMIDine in 0.9% sodium chloride (PRECEDEX) 400 mcg/100 mL (4 mcg/mL) infusion (premix), 0-1.5 mcg/kg/hr, intravenous, Titrated, Marlo Rdz MD famotidine (PEPCID) injection 20 mg, 20 mg, intravenous, Daily, Marlo Rdz MD fentaNYL (SUBLIMAZE) preservative free injection 50 mcg, 50 mcg, intravenous, Q1H PRN, Ernie Baldwin MD, 50 mcg at 03/22/24 1350 Lactated Ringer's (LR) infusion, 30 mL/hr, intravenous, Continuous, Ranjit Fernández PIPE SMOKER MACHINE OPERATOR, Last Rate: 30 mL/hr at 03/22/24 0743, Restarted at 03/22/24 1220 magnesium sulfate 2 g/50 mL in water (premix) 2 g, 2 g, intravenous, Q2H PRN, Marlo Rdz MD oxyCODONE (ROXICODONE) tablet 5 mg, 5 mg, oral, Q4H PRN, Marlo Rdz MD polyethylene glycol (MIRALAX) packet 17 g, 17 g, oral, Daily, Marlo Rdz MD potassium chloride 20 mEq/50 mL in sterile water (premix) 20 mEq, 20 mEq, intravenous, Q1H PRN, Marlo Rdz MD prochlorperazine (COMPAZINE) injection 5 mg, 5 mg, intravenous, Q6H PRN, Marlo Rdz MD propofoL (DIPRIVAN) 10 mg/mL IV, 0-50 mcg/kg/min, intravenous, Titrated, Ernie Baldwin MD, Last Rate: 18.34 mL/hr at 03/22/24 1315, 40 mcg/kg/min at 03/22/24 1315 senna-docusate (PERICOLACE) 8.6-50 mg per tablet 2 tablet, 2 tablet, oral, BID, Marlo Rdz MD sodium chloride 0.9% flush 0.5-20 mL, 0.5-20 mL, intra-catheter, Q8H CHAVO, Marlo Rdz MD sodium chloride 0.9% flush 0.5-20 mL, 0.5-20 mL, intra-catheter, PRN, Marlo Rdz MD sodium chloride 0.9% infusion, 10 mL/hr, intravenous, Continuous PRN, Re Hicks, HUY sodium chloride 0.9% infusion, 20 mL/hr, intravenous, Continuous, Marlo Rdz MD, Last Rate: 20 mL/hr at 03/22/24 1240, 20 mL/hr at 03/22/24 1240 sodium chloride 0.9% IVPB 0-250 mL, 0-250 mL, intravenous, Once, Ernie Baldwin MD sodium chloride 0.9% solution, 3-12 mL/hr, intra-catheter, Continuous, Marlo Rdz MD vancomycin 1250 mg/250 mL in sodium chloride 0.9% (premix) 1,250 mg, 15 mg/kg, intravenous, Q12H, Ernie Baldwin MD REVIEW OF SYSTEMS Review of Systems Unable to perform ROS: Patient nonverbal Review of systems is unable to be performed, as patient is currently sedated on ventilator. No family is available at the bedside. Information was obtained from patient's chart review LABS AND OTHER DIAGNOSTIC TESTS Lab Results Component Value Date WBC 10.8 (H) 03/22/2024 HGB 11.8 (L) 03/22/2024 HCT 33.2 (L) 03/22/2024 MCV 85.6 03/22/2024 Recent Labs Lab Units 03/22/24 1403 03/22/24 1300 03/22/24 1231 CO2 mmol/L -- -- 23 CREATININE mg/dL -- -- 0.77* CALCIUM mg/dL -- -- 8.1* GLUCOSE mg/dL -- -- 134 POC GLUCOSE MONITOR mg/dL 114 < > -- < > = values in this interval not displayed. -chest x-ray 03/22/2024, which I personally reviewed analyzed, demonstrates borderline cardiomegaly, aortic atherosclerosis. -EKG 03/19/2024, which I personally reviewed analyzed, demonstrates sinus bradycardia 49 beats per minute -cardiac catheterization 02/23/2024, which I personally reviewed analyzed, demonstrates minor plaque mid RCA, no significant obstructive coronary artery disease, severe aortic stenosis with mean gradient 47, valve area 0.8 -echocardiogram 01/21/2024, which I personally reviewed analyzed, demonstrates EF 60%, grade 1 diastolic dysfunction, critical aortic stenosis PHYSICAL EXAM Vitals: 03/22/24 1315 03/22/24 1326 03/22/24 1330 03/22/24 1410 BP: Pulse: 80 80 80 80 Resp: 16 16 Temp: SpO2: 100% 100% 100% 100% Weight: Height: Physical Exam Vitals reviewed. Constitutional: Appearance: Normal appearance. He is well-developed. Comments: Sedated, on ventilator HENT: Head: Normocephalic and atraumatic. Nose: Nose normal. Eyes: General: No scleral icterus. Neck: Thyroid: No thyromegaly. Vascular: No JVD. Cardiovascular: Rate and Rhythm: Normal rate and regular rhythm. Pulmonary: Comments: Sedated on ventilator. Symmetric chest expansion Abdominal: General: There is no distension. Musculoskeletal: Cervical back: Neck supple. Right lower leg: No edema. Left lower leg: No edema. Skin: General: Skin is warm. Neurological: Comments: Sedated, on ventilator Psychiatric: Comments: Sedated, on ventilator ASSESSMENT -severe s/p AVR 23mm Leonidas mech valve -PSVT -hypertension -dyslipidemia -prior TIA PLAN/RECOMMENDATIONS -severe s/p AVR 23mm Morro mech valve, doing well postoperatively. Wean vent as tolerated. -PSVT, monitor on telemetry. Add beta-tabitha when able to tolerate -hypertension, currently on Cleviprex, which is being weaned. Add oral antihypertensives and titrate as needed -dyslipidemia, will plan to resume rosuvastatin -prior TIA, continue aspirin for now. Plan to resume warfarin per CT surgery Thank you for allowing us to participate in the care of this patient. Jolanta Quintero DO documented in this encounter Nursing Notes * Carole Lundberg RN - 03/23/2024 4:[address] Baldwin and quoc Salmeron (fellow) at bedside. Noted that hemoglobin was 7.1 and platelet was 57, no further orders. Patient was hemodynamically stable with no s/sx of bleeding. Noted that SBP ranges 150-170's mmHg,asymptomatic. Dr. Baldwin ordered to start on metoprolol 12.5 mg BID. Ordered to remove swan. Kept monitored. * Brenna Carrera RN - 03/23/2024 12:51 PM CDT SWAT EVALUATION Impression: Patient evaluated by SWAT RN due to increase risk for impaired skin integrity. Miguelangel score: 16. Contributing factors/history includes: Aortic stenosis, Lipid screening, SVT, tobacco dependence.ROSALIO pt r/t Thu RN requested to not see pt r/t pt being aggitated. Thu RN stated she would assess pt and notify SWAT/ WOUND of any abnormalities with skin. Plan: Continue pressure prevention orders - Q2 hr turns/bathroom checks, waffle mattress, absorbentpads, and prevalon boots. SWAT RN to follow and assess. Goal: Pressure relief and moisture management. documented in this encounter Miscellaneous Notes * Plan of Care - Liberty Ruelas RN - 03/30/2024 1:25 PM CDT 03/30/24 1324 Discharge Summary Discharge Disposition Private residence Recommended Discharge Level of Care Private residence Actual Discharge Level of Care Private residence Does Actual Level of Care Match Care Team Recommendation? Yes Post Acute Care Plan Home Care Services Yes Type of Home Care Services Nurse visit (To be arranged by Clayton Hand) OP Services N/A DME N/A Post Acute Care Facility N/A Discharge Additional Assistance Does the patient need discharge transport arranged? No (spouse for transport home) Post Discharge Care Provider Post Discharge Care Plan DC Summary has been faxed to next level of care provider (see Follow Up Providers) Per medical team, patient is medically stable for discharge at this time. Follow up appointment hasbeen scheduled for 04/05/2024 @ 10:30 am. Transportation will be provided by the spouse. Patient and/or family are agreeable with the plan. If any further discharge needs arise, please contact the covering hospice case manager. Discharge Disposition Code: 01 * Plan of Care - Liberty Ruelas RN - 03/30/2024 1:12 PM CDT 03/30/24 1311 Communications Important Message from Medicare notice given to patient? Not Applicable CLEMENT letter given? Not Applicable Patient choice (Home Health/Hospice) list given to patient/customer care representative? Yes ([facility] and [facility] will arrange) [facility] Facility list given to patient/customer care representative? Not Applicable Fiduciary Responsibility Patient/Designated decision maker was informed of [facility] fiduciary relationship as necessary Notice of Non-Covered Continued Stay or Hospital Services Given to Patient Not Applicable * Plan of Care - Liberty Ruelas RN - 03/30/2024 1:04 PM CDT CM spoke with the patient's Mud Engineer of [facility] for assistance with obtaining HH for the patient.CM received information for [facility] who provides assistance with seeking HH. Informationwas faxed and [facility] has initiated working on securing home yaron. CM was notified this shift thatif [facility] network [facility], they will go out of their network to secure. CTS was notified. * Plan of Care - Christo Zendejas RN - 03/30/2024 11:37 AM CDT Goals: Clinical Goals for the Shift: Stable VS & labs. Comfort & safety. Monitor BG. Surgical sitecare. D/c planning. Summary: Problem: Skin Integrity Impairment Risk Goal: Mobility will improve Outcome: Adequate for Discharge Goal: Understanding of ways to prevent future skin breakdown will improve Outcome: Adequate for Discharge Goal: Nutritional status will improve Outcome: Adequate for Discharge Goal: Risk for impaired skin integrity will decrease Outcome: Adequate for Discharge Problem: Discharge Planning Goal: Understanding discharge needs will improve Outcome: Adequate for Discharge Problem: Fall Risk Goal: Ability to state ways to decrease the risk of falls will improve Outcome: Adequate for Discharge Goal: Will remain free from falls Outcome: Adequate for Discharge Goal: Will remain free from injury from falls Outcome: Adequate for Discharge Problem: Activity Goal: Patient's tolerance of increased activity will improve Outcome: Adequate for Discharge Problem: Coping Goal: Ability to verbalize positive feelings about self will improve Outcome: Adequate for Discharge Problem: Fluid Volume Goal: Will regain or maintain balanced intake and output Outcome: Adequate for Discharge Problem: Lack of Knowledge Goal: Patient's knowledge of postoperative course will improve Outcome: Adequate for Discharge Problem: Nutrition Goal: Patient's nutritional status will improve Outcome: Adequate for Discharge Problem: Physical Regulation Goal: Ability to maintain clinical measurements within normal limits will improve Outcome: Adequate for Discharge Problem: Sensory (Pain) Goal: Pain levels will decrease Outcome: Adequate for Discharge Problem: Mechanical Ventilation Goal: Ventilator management will be safely performed Outcome: Adequate for Discharge Problem: Lack of Knowledge Goal: Ability to develop a pain control plan will improve Outcome: Adequate for Discharge Problem: Medication Goal: Satisfaction with pain management medication regimen will improve Outcome: Adequate for Discharge Problem: Sensory Goal: Ability to identify factors that increase pain levels will improve while working to decrease the patient's pain levels Outcome: Adequate for Discharge Problem: Coping Goal: Ability to cope will improve Outcome: Adequate for Discharge Problem: Health Behavior Goal: Identification of resources available to assist in meeting health care needs will improve Outcome: Adequate for Discharge Problem: Respiratory Goal: Achieves optimal ventilation and oxygenation Outcome: Adequate for Discharge Goal: Ability to maintain a clear airway will improve Outcome: Adequate for Discharge Problem: Cardiovascular Goal: Maintains optimal cardiac output and hemodynamic stability Outcome: Adequate for Discharge Goal: Absence of cardiac dysrhythmias or at baseline Outcome: Adequate for Discharge Problem: Skin/Tissue Integrity Goal: Skin integrity remains intact Outcome: Adequate for Discharge Goal: Incisions, wounds, or drain sites healing without S/S of infection Outcome: Adequate for Discharge Goal: Oral mucous membranes remain intact Description: Outcome: Adequate for Discharge Problem: Musculoskeletal Goal: Return mobility to safest level of function Outcome: Adequate for Discharge Goal: Maintain proper alignment of affected body part Outcome: Adequate for Discharge Goal: Return ADL status to a safe level of function Outcome: Adequate for Discharge Goal: Ability to perform activities at highest level will improve Outcome: Adequate for Discharge Goal: Mobility, ROM and muscle strength will improve Outcome: Adequate for Discharge Problem: Gastrointestinal Goal: Minimal or absence of nausea and vomiting Outcome: Adequate for Discharge Goal: Maintains or returns to baseline bowel function Outcome: Adequate for Discharge Goal: Maintains adequate nutritional intake Outcome: Adequate for Discharge Goal: Establish and maintain optimal ostomy function Outcome: Adequate for Discharge Goal: Will show no signs and symptoms of gastrointestinal bleeding Outcome: Adequate for Discharge Problem: Genitourinary Goal: Absence of urinary retention Outcome: Adequate for Discharge Goal: Urinary catheter remains patent Outcome: Adequate for Discharge Problem: Infection Goal: Absence of infection during hospitalization Outcome: Adequate for Discharge Goal: Absence of fever/infection during anticipated neutropenic period Outcome: Adequate for Discharge Problem: Metabolic/Fluid and Electrolytes Goal: Electrolytes maintained within normal limits Outcome: Adequate for Discharge Goal: Hemodynamic stability and optimal renal function maintained Outcome: Adequate for Discharge Goal: Glucose maintained within prescribed range Outcome: Adequate for Discharge Problem: Hematologic Goal: Maintains hematologic stability Outcome: Adequate for Discharge Patient has been cleared by CTS. HH pending. * Plan of [facility] - Brayan Dyer - 03/29/2024 6:21 PM CDT Problem: Skin Integrity Impairment Risk Goal: Mobility will improve Outcome: Progressing Flowsheets (Taken 03/23/20241756 by Carole Lundberg RN) Mobility will improve: Encourage mobilization to extent of ability, assist with range of motion as needed Assess circulation, sensation and/or motion of extremity Collaborate with physical therapy Encourage turning and repositioning, assist as needed Encourage ambulation Goal: Nutritional status will improve Outcome: Progressing Flowsheets (Taken 03/29/20241819) Nutritional status will improve: Monitor intake and output Encourage nutritional intake Problem: Fall Risk Goal: Will remain free from falls Outcome: Progressing Flowsheets (Taken 03/29/20241819) Will remain free from falls: Implement fall prevention measures Assess risk factors for falls Collaborate with other disciplines Problem: Coping Goal: Ability to verbalize positive feelings about self will improve Outcome: Progressing Flowsheets (Taken 03/29/20241819) Ability to verbalize positive feelings about self will improve: Encourage identification of positive aspects of self Problem: Medication Goal: Satisfaction with pain management medication regimen will improve Outcome: Progressing Flowsheets (Taken 03/29/20241819) Satisfaction with pain management medication regimen will improve: Evaluate medication effects Problem: Coping Goal: Ability to cope will improve Outcome: Progressing Flowsheets (Taken 03/29/20241819) Ability to cope will Improve: Provide emotional support Assess beliefs of pain Problem: Respiratory Goal: Achieves optimal ventilation and oxygenation Outcome: Progressing Flowsheets (Taken 03/24/20241757 by Carole Lundberg RN) Achieves optimal ventilation and oxygenation: Assess for changes in respiratory status Position to facilitate oxygenation and minimize respiratory effort Oxygen supplementation based on oxygen saturation or arterial blood gases Assess for changes in mentation and behavior Encourage broncho-pulmonary hygiene including cough, deep breathing, incentive spirometry Assess the need for suctioning and suction as needed Assess and instruct to report shortness of breath or any respiratory difficulty Manage oxygen therapy Perform cluster care Problem: Musculoskeletal Goal: Return ADL status to a safe level of function Outcome: Progressing Flowsheets (Taken 03/24/20241757 by Carole Lundberg RN) Return activities of daily living status to a safe level of function: Assess patient's activities of daily living deficits and provide assistive devices as needed Obtain PT/OT consults as needed Assist and instruct patient to increase activity and self care Problem: Genitourinary Goal: Absence of urinary retention Outcome: Progressing Flowsheets (Taken 03/29/20241819) Absence of urinary retention: Assess patient???s ability to void and empty bladder Goals: Clinical Goals for the Shift: VSS, comfort, safety, titrate heparin drip Summary: Patient safety maintained throughout shift. Vitals stable. Patient pain treated with PRN pain meds. * Plan of Care - Liberty Ruelas RN - 03/28/2024 3:57 PM CDT 03/28/24 1556 Discharge Planning Support System Spouse/Significant Other Anticipated discharge level of care Private residence Does the patient need discharge transport arranged? No ( for transportation home) Post Acute Care Plan Home Care Services Yes Type of Home Care Services Nurse visit Home Care Services Name and Phone Number [facility] [phone] OP Services N/A DME N/A Post Acute Care Facility N/A Afib post op - Amio PO; Diltiazem PO; WBC 11.6 03/28; Cr 0.75; Epi wire removed; Lasix; replace K+; heparin drip transition to warfin with Lovenox; CXR - (R) lower lobe collapse-consolidation Patient's plan is to return home with is who will transport him home; referral sent for HH. * [facility] Note - Liberty Ruelas RN - 03/28/2024 3:47 PM CDT [place] [id number] Date: Mar 28, 2024 Ambulatory referral to Home Health Patient: Stephan Madden [address] [place] [address] [place] [id number] : 1965 SSN: [id number] Sex: M Insurance: [employer] Referring Provider Information: CHRISTO COTA Referral Information: # Visits: 1 Referral Type: Home Health [42] Urgency: Routine Referral Reason: Specialty Services Required Start Date: Mar 28, 2024 End Date: To be determined by Insurer Diagnosis: Aortic stenosis, severe (I35.0) Refer to Dept: [facility] Home Care Services [address] [place], [address] Service Line: Home Health Primary disciplines requested: [facility] Services: Labs Home Health Services: Wound/Ostomy Care Does the patient have a wound vac? No Wound Information: sternal incision open to air. Chest tube sutures to be removed by HHRN in one week Labs: CBC with Differential Labs: CMP Labs: INR CBC frequency: Other CBC frequency: once on 2nd HH visit CMP frequency: Other CMP frequency: once on 2nd HH visit INR frequency: 2x/week Date to Start Labs: 03/31/2024 Requested Start of Care Date: 24-48 hours Physician to follow patient's care (the person listed here will be responsible for signing ongoing orders): Referring Provider I attest that I or another qualified licensed provider saw the patient 90 days prior to or 30 days post admission and this face to face encounter meets the necessary Home Health requirements. The face to face encounter occurred on (date): 03/28/2024 The encounter with the patient was in whole, or in part, for the following medical condition, whichis the primary reason for home health care. (List medical condition): s/p mechanical AVR I certify that, based on my findings, the following services are medically necessary skilled home health services: Wound/Ostomy Care I certify that, based on my findings, the following services are medically necessary skilled home health services: Labs Clinical findings that support the need for home care: Wound requiring care, assessment, and instruction I certify that my clinical findings support patient's homebound status. Homebound criteria met because: Requires assistance of another to leave home safely Entered by: Christo Cota NP Authorizing Provider: Christo Cota NP ( ) [employer] Operator: Ernie Baldwin MD This document serves as a request of services and does not constitute Insurance authorization or approval of services. To determine eligibility, please contact the member???s Insurance carrier to verify and review coverage. If you have medical questions regarding this request for services. Please contact [facility] [phone] between the hours of 8:00am - 4:30pm (Mon-Fri). * Plan of Care - Kelsey Harrington RN - 03/26/2024 3:13 PM CDT Problem: Skin Integrity Impairment Risk Goal: Mobility will improve Outcome: Progressing Goal: Understanding of ways to prevent future skin breakdown will improve Outcome: Progressing Goal: Nutritional status will improve Outcome: Progressing Goal: Risk for impaired skin integrity will decrease Outcome: Progressing Goals: Clinical Goals for the Shift: VSS; ambulate in hallway; diurese; wean cleviprex Summary: Pt is a/o x4. VSS. Cleviprex weaned off. Diuresed with adequate urine output. No c/o pain.RN will continue to monitor. * Plan of Care - Jenaro Zuniga RN - 03/26/2024 7:38 AM CDT Goals: Clinical Goals for the Shift: VSS; ambulate in hallway; remove wires; wean cleviprex Problem: Skin Integrity Impairment Risk Goal: Mobility will improve Outcome: Progressing Goal: Understanding of ways to prevent future skin breakdown will improve Outcome: Progressing Goal: Nutritional status will improve Outcome: Progressing Goal: Risk for impaired skin integrity will decrease Outcome: Progressing Problem: Discharge Planning Goal: Understanding discharge needs will improve Outcome: Progressing Problem: Fall Risk Goal: Ability to state ways to decrease the risk of falls will improve Outcome: Progressing Goal: Will remain free from falls Outcome: Progressing Goal: Will remain free from injury from falls Outcome: Progressing Problem: Activity Goal: Patient's tolerance of increased activity will improve Outcome: Progressing Problem: Coping Goal: Ability to verbalize positive feelings about self will improve Outcome: Progressing Problem: Fluid Volume Goal: Will regain or maintain balanced intake and output Outcome: Progressing Problem: Lack of Knowledge Goal: Patient's knowledge of postoperative course will improve Outcome: Progressing Problem: Nutrition Goal: Patient's nutritional status will improve Outcome: Progressing Problem: Physical Regulation Goal: Ability to maintain clinical measurements within normal limits will improve Outcome: Progressing Problem: Sensory (Pain) Goal: Pain levels will decrease Outcome: Progressing Problem: Mechanical Ventilation Goal: Ventilator management will be safely performed Outcome: Progressing Problem: Lack of Knowledge Goal: Ability to develop a pain control plan will improve Outcome: Progressing Problem: Medication Goal: Satisfaction with pain management medication regimen will improve Outcome: Progressing Problem: Sensory Goal: Ability to identify factors that increase pain levels will improve while working to decrease the patient's pain levels Outcome: Progressing Problem: Coping Goal: Ability to cope will improve Outcome: Progressing Problem: Health Behavior Goal: Identification of resources available to assist in meeting health care needs will improve Outcome: Progressing Problem: Respiratory Goal: Achieves optimal ventilation and oxygenation Outcome: Progressing Goal: Ability to maintain a clear airway will improve Outcome: Progressing Problem: Cardiovascular Goal: Maintains optimal cardiac output and hemodynamic stability Outcome: Progressing Goal: Absence of cardiac dysrhythmias or at baseline Outcome: Progressing Problem: Skin/Tissue Integrity Goal: Skin integrity remains intact Outcome: Progressing Goal: Incisions, wounds, or drain sites healing without S/S of infection Outcome: Progressing Goal: Oral mucous membranes remain intact Description: Outcome: Progressing Problem: Musculoskeletal Goal: Return mobility to safest level of function Outcome: Progressing Goal: Maintain proper alignment of affected body part Outcome: Progressing Goal: Return ADL status to a safe level of function Outcome: Progressing Goal: Ability to perform activities at highest level will improve Outcome: Progressing Goal: Mobility, ROM and muscle strength will improve Outcome: Progressing Problem: Gastrointestinal Goal: Minimal or absence of nausea and vomiting Outcome: Progressing Goal: Maintains or returns to baseline bowel function Outcome: Progressing Goal: Maintains adequate nutritional intake Outcome: Progressing Goal: Establish and maintain optimal ostomy function Outcome: Progressing Goal: Will show no signs and symptoms of gastrointestinal bleeding Outcome: Progressing Problem: Genitourinary Goal: Absence of urinary retention Outcome: Progressing Goal: Urinary catheter remains patent Outcome: Progressing Problem: Infection Goal: Absence of infection during hospitalization Outcome: Progressing Goal: Absence of fever/infection during anticipated neutropenic period Outcome: Progressing Problem: Metabolic/Fluid and Electrolytes Goal: Electrolytes maintained within normal limits Outcome: Progressing Goal: Hemodynamic stability and optimal renal function maintained Outcome: Progressing Goal: Glucose maintained within prescribed range Outcome: Progressing Problem: Hematologic Goal: Maintains hematologic stability Outcome: Progressing * Plan of [facility] - Kelsey Harrington RN - 03/25/2024 3:20 PM CDT Problem: Skin Integrity Impairment Risk Goal: Mobility will improve Outcome: Progressing Goal: Understanding of ways to prevent future skin breakdown will improve Outcome: Progressing Goal: Nutritional status will improve Outcome: Progressing Goal: Risk for impaired skin integrity will decrease Outcome: Progressing Goals: Clinical Goals for the Shift: VSS; ambulate in hallway; remove wires; wean cleviprex Summary: Pt is a/o x4. Diuresed. Cleviprex weaned. Heparin gtt started. VSS. Epicardial wires were clipped by the CTS fellow. RN will continue to monitor. * Provider Query - Ernie Baldwin MD - 03/25/2024 10:41 AM CDT Cardiogenic Shock was documented in the postoperative period. Clarify the diagnosis of Postoperative cardiogenic shock: _X__ Short-term post-procedural use of vasopressors for cardiac support ___ Expected cardiac response inherent to the cardiac surgery ___ Cardiogenic shock due to underlying heart disease, specify below ___ Postoperative cardiogenic shock due to surgery ___ Other, specify below Additional Provider Response: Short-term use of vasopressor support following cardiotomy as expected in ICU. Clinical Indicators/Treatments: 58 yo male with aortic stenosis Hx (per H&P): aortic stenosis, sleep apnea, paroxsmal atrial fib, current smoker 03/22 [facility] AV replacement Progress Notes by Hiren Ferrell PA at 03/23/2024 7:44 AM Hemodynamic parameters for last 24 hours: CO: [3.6 L/min-6 L/min] 5.5 L/min CI: [1.8 L/min/m2-3 L/min/m2] 2.8 L/min/m2 EPINEPHrine, 0-0.2 mcg/kg/min, Last Rate: Stopped (03/23/24 0645) norepinephrine, 0-2 mcg/kg/min, Last Rate: 0.08 mcg/kg/min (03/23/24 0630) vasopressin, 0.04 Units/min, Last Rate: 0.04 Units/min (03/23/24 0400) post op cardiogenic and vasoplegic shock, expected Progress Notes by Erika Villanueva PA at 03/23/2024 11:23 PM Hemodynamic parameters for last 24 hours: CO: [4.6 L/min-9.1 L/min] 8.7 L/min CI: [2.3 L/min/m2-4.6 L/min/m2] 4.4 L/min/m2 post op cardiogenic and vasoplegic shock, expected epinephrine stopped 03/23 06:45 levophed stopped 03/23 14:30 vasopressin stopped 03/23 14:30 References: From the ICD-10-CM Official Guidelines for Coding and Reporting, use of terms such as likely, suspected, possible, or probable (associated with a specific diagnosis that is being evaluated, monitored, or treated as if it exists) are acceptable and can be coded in the inpatient setting when documented at the time of discharge. This documentation will become part of the patient???s medical record. * Plan of Care - Jenaro Zuniga RN - 03/25/2024 7:46 AM CDT Goals: Clinical Goals for the Shift: increase activity; improve appetite, manage anxiety;pain control; stable vital signs; patient's comfort and safety Problem: Skin Integrity Impairment Risk Goal: Mobility will improve Outcome: Progressing Goal: Understanding of ways to prevent future skin breakdown will improve Outcome: Progressing Goal: Nutritional status will improve Outcome: Progressing Goal: Risk for impaired skin integrity will decrease Outcome: Progressing Problem: Discharge Planning Goal: Understanding discharge needs will improve Outcome: Progressing Problem: Fall Risk Goal: Ability to state ways to decrease the risk of falls will improve Outcome: Progressing Goal: Will remain free from falls Outcome: Progressing Goal: Will remain free from injury from falls Outcome: Progressing Problem: Activity Goal: Patient's tolerance of increased activity will improve Outcome: Progressing Problem: Coping Goal: Ability to verbalize positive feelings about self will improve Outcome: Progressing Problem: Fluid Volume Goal: Will regain or maintain balanced intake and output Outcome: Progressing Problem: Lack of Knowledge Goal: Patient's knowledge of postoperative course will improve Outcome: Progressing Problem: Nutrition Goal: Patient's nutritional status will improve Outcome: Progressing Problem: Physical Regulation Goal: Ability to maintain clinical measurements within normal limits will improve Outcome: Progressing Problem: Sensory (Pain) Goal: Pain levels will decrease Outcome: Progressing Problem: Mechanical Ventilation Goal: Ventilator management will be safely performed Outcome: Progressing Problem: Lack of Knowledge Goal: Ability to develop a pain control plan will improve Outcome: Progressing Problem: Medication Goal: Satisfaction with pain management medication regimen will improve Outcome: Progressing Problem: Sensory Goal: Ability to identify factors that increase pain levels will improve while working to decrease the patient's pain levels Outcome: Progressing Problem: Coping Goal: Ability to cope will improve Outcome: Progressing Problem: Health Behavior Goal: Identification of resources available to assist in meeting health care needs will improve Outcome: Progressing Problem: Respiratory Goal: Achieves optimal ventilation and oxygenation Outcome: Progressing Goal: Ability to maintain a clear airway will improve Outcome: Progressing Problem: Cardiovascular Goal: Maintains optimal cardiac output and hemodynamic stability Outcome: Progressing Goal: Absence of cardiac dysrhythmias or at baseline Outcome: Progressing Problem: Skin/Tissue Integrity Goal: Skin integrity remains intact Outcome: Progressing Goal: Incisions, wounds, or drain sites healing without S/S of infection Outcome: Progressing Goal: Oral mucous membranes remain intact Description: Outcome: Progressing Problem: Musculoskeletal Goal: Return mobility to safest level of function Outcome: Progressing Goal: Maintain proper alignment of affected body part Outcome: Progressing Goal: Return ADL status to a safe level of function Outcome: Progressing Goal: Ability to perform activities at highest level will improve Outcome: Progressing Goal: Mobility, ROM and muscle strength will improve Outcome: Progressing Problem: Gastrointestinal Goal: Minimal or absence of nausea and vomiting Outcome: Progressing Goal: Maintains or returns to baseline bowel function Outcome: Progressing Goal: Maintains adequate nutritional intake Outcome: Progressing Goal: Establish and maintain optimal ostomy function Outcome: Progressing Goal: Will show no signs and symptoms of gastrointestinal bleeding Outcome: Progressing Problem: Genitourinary Goal: Absence of urinary retention Outcome: Progressing Goal: Urinary catheter remains patent Outcome: Progressing Problem: Infection Goal: Absence of infection during hospitalization Outcome: Progressing Goal: Absence of fever/infection during anticipated neutropenic period Outcome: Progressing Problem: Metabolic/Fluid and Electrolytes Goal: Electrolytes maintained within normal limits Outcome: Progressing Goal: Hemodynamic stability and optimal renal function maintained Outcome: Progressing Goal: Glucose maintained within prescribed range Outcome: Progressing Problem: Hematologic Goal: Maintains hematologic stability Outcome: Progressing * Plan of Care - Carole Lundberg RN - 03/24/2024 6:00 PM CDT Problem: Skin Integrity Impairment Risk Goal: Mobility will improve Outcome: Progressing Flowsheets (Taken 03/23/2024 4274) Mobility will improve: Encourage mobilization to extent of ability, assist with range of motion as needed Assess circulation, sensation and/or motion of extremity Collaborate with physical therapy Encourage turning and repositioning, assist as needed Encourage ambulation Goal: Understanding of ways to prevent future skin breakdown will improve Outcome: Progressing Flowsheets (Taken 03/23/20241756) Understanding of ways to prevent future skin breakdown will improve: Discuss treatments to protect skin integrity Discuss treatment plan for related conditions Goal: Nutritional status will improve Outcome: Progressing Flowsheets (Taken 03/24/20241757) Nutritional status will improve: Assess nutritional status Assist with appropriate dietary choices Encourage nutritional intake Discuss dietary adjustments Monitor intake and output Obtain nutritional consult Encourage fluid intake Goal: Risk for impaired skin integrity will decrease Outcome: Progressing Flowsheets (Taken 03/23/20241756) Risk for impaired skin integrity will decrease: Identify risk factors for impaired skin integrity and/or pressure injuries Implement precautions to protect skin integrity Monitor skin integrity, appearance and temperature Use moisturizing agent to dry skin Perform cleansing of skin when soiled Provide pressure-redistribution bed, mattress and/or chair cushion Provide moisture management and/or incontinence care Apply skin protectant to elbows and heels Float heels off surface Protect skin from pressure due to medical devices when appropriate Problem: Fall Risk Goal: Ability to state ways to decrease the risk of falls will improve Outcome: Progressing Flowsheets (Taken 03/23/20241756) Ability to state ways to decrease the risk of falls will improve: Teach fall prevention measures Teach information regarding appropriate enviornmental changes Goal: Will remain free from falls Outcome: Progressing Flowsheets (Taken 03/23/20241756) Will remain free from falls: Assess risk factors for falls Implement fall prevention measures Collaborate with other disciplines Goal: Will remain free from injury from falls Outcome: Progressing Flowsheets (Taken 03/23/20241756) Will remain free from injury from falls: Provide safe environment for conduction of activities of daily living in hospital environment Problem: Activity Goal: Patient's tolerance of increased activity will improve Outcome: Progressing Flowsheets (Taken 03/23/20241756) Patient's tolerance of increased activity will improve: Implement and manage activity progression plan Plan scheduling of activities for periods of rest Monitor signs of activity intolerance Encourage energy conservation techniques Encourage use of non-slip footwear Encourage out of bed for meals Assess response to activities Identify limitations or barriers to activity and/or excercise Encourage participation in care Encourage use of assistive devices as needed Problem: Coping Goal: Ability to verbalize positive feelings about self will improve Outcome: Progressing Problem: Fluid Volume Goal: Will regain or maintain balanced intake and output Outcome: Progressing Flowsheets (Taken 03/24/20241757) Will regain or maintain a balanced intake and output: Monitor for signs and symptoms of shock Evaluate need to continue vascular access Problem: Physical Regulation Goal: Ability to maintain clinical measurements within normal limits will improve Outcome: Progressing Flowsheets (Taken 03/24/20241757) Ability to maintain clinical measurements within normal limits will improve: Assess level of consciousness Assess cardiovascular status Assess neuro status Assess pulmonary/respiratory status Assess neurovascular status Problem: Sensory (Pain) Goal: Pain levels will decrease Outcome: Progressing Flowsheets (Taken 03/24/20241757) Pain levels will decrease: Assess pain status Assist with medication tapering Provide pain control measures Encourage coughing and splinting Provide administration of medications prior to painful activities Problem: Coping Goal: Ability to cope will improve Outcome: Progressing Flowsheets (Taken 03/24/20241757) Ability to cope will Improve: Encourage vebalization of feelings surrounding pain Provide emotional support Problem: Respiratory Goal: Achieves optimal ventilation and oxygenation Outcome: Progressing Flowsheets (Taken 03/24/20241757) Achieves optimal ventilation and oxygenation: Assess for changes in respiratory status Position to facilitate oxygenation and minimize respiratory effort Oxygen supplementation based on oxygen saturation or arterial blood gases Assess for changes in mentation and behavior Encourage broncho-pulmonary hygiene including cough, deep breathing, incentive spirometry Assess the need for suctioning and suction as needed Assess and instruct to report shortness of breath or any respiratory difficulty Manage oxygen therapy Perform cluster care Goal: Ability to maintain a clear airway will improve Outcome: Progressing Problem: Skin/Tissue Integrity Goal: Skin integrity remains intact Outcome: Progressing Flowsheets (Taken 03/24/20241757) Skin integrity remains intact: Assess and document risk factors for pressure injury development Monitor for areas of redness and/or skin breakdown Assess and document skin integrity Problem: Musculoskeletal Goal: Return mobility to safest level of function Outcome: Progressing Flowsheets (Taken 03/24/20241757) Return mobility to safest level of function: Assess patient stability and activity tolerance for standing, transferring and ambulating with or without assistive devices Assist with transfers and ambulation using safe patient handling equipment as needed Obtain PT/OT consults as needed Ensure adequate protection for wounds/incisions during mobilization Instruct patient/family in ordered activity level Goal: Maintain proper alignment of affected body part Outcome: Progressing Flowsheets (Taken 03/24/20241757) Maintain proper alignment of affected body part: Support and protect limb and body alignment per provider's orders Instruct and reinforce with patient and family use of appropriate assistive device and precautions (e.g. spinal or hip dislocation precautions) Goal: Return ADL status to a safe level of function Outcome: Progressing Flowsheets (Taken 03/24/20241757) Return activities of daily living status to a safe level of function: Assess patient's activities of daily living deficits and provide assistive devices as needed Obtain PT/OT consults as needed Assist and instruct patient to increase activity and self care Goal: Ability to perform activities at highest level will improve Outcome: Progressing Flowsheets (Taken 03/24/20241757) Ability to perform activities at highest level will improve: Manage use of immobilizer Provide traction care Problem: Gastrointestinal Goal: Minimal or absence of nausea and vomiting Outcome: Progressing Flowsheets (Taken 03/23/20241758) Minimal or absence of nausea and vomiting: Assess gastrointestinal status Provide a clean room free from unpleasant odors Administer ordered antiemetic medications as needed, assess medication effects Provide appropriate dietary choices Monitor intake and output Provide fluid volume management Monitor diagnostic test results Discuss complementary and alternative therapies Nutrition consult to assist patient with adequate nutrition and appropriate food choices Goal: Will show no signs and symptoms of gastrointestinal bleeding Outcome: Progressing Flowsheets (Taken 03/24/20241757) Will show no signs and symptoms of gastrointestinal bleeding: Assess amount, characteristics and/or frequency of stool Monitor bowel sounds Assess amount and/or characteristics of nasogastric tube drainage Perform placement of nasogastric tube Problem: Genitourinary Goal: Absence of urinary retention Outcome: Progressing Flowsheets (Taken 03/24/20241757) Absence of urinary retention: Assess patient???s ability to void and empty bladder Monitor intake/output and perform bladder scan as needed Discuss catheterization for long-term situations as appropriate Assess amount and/or characteristics of urine Discuss with Provider medications to alleviate retention as needed Goal: Urinary catheter remains patent Outcome: Progressing Flowsheets (Taken 03/23/20241758) Urinary catheter remains patent: Assess patency of urinary catheter Assess need for a larger catheter size or a 3-way catheter for continuous bladder irrigation Problem: Metabolic/Fluid and Electrolytes Goal: Electrolytes maintained within normal limits Outcome: Progressing Flowsheets (Taken 03/23/20241758) Electrolytes maintained within normal limits: Monitor labs and assess patient for signs and symptoms of electrolyte imbalances Administer electrolyte replacement as ordered Monitor response to electrolyte replacements, including repeat lab results as appropriate Fluid restriction as ordered Instruct patient on fluid and nutrition restrictions as appropriate Provide fluid volume management Goal: Hemodynamic stability and optimal renal function maintained Outcome: Progressing Flowsheets (Taken 03/23/20241758) Hemodynamic stability and optimal renal function maintained: Monitor labs and assess for signs and symptoms of volume excess or deficit Monitor intake, output and patient weight Monitor urine specific gravity, serum osmolarity and serum sodium as indicated or ordered Monitor response to interventions for patient's volume status, including labs, urine output, blood pressure (other measures as available) Encourage oral intake as appropriate Manage intravenous fluids Instruct patient on fluid and nutrition restrictions as appropriate Goal: Glucose maintained within prescribed range Outcome: Progressing Flowsheets (Taken 03/23/20241758) Glucose maintained within prescribed range: Assess barriers to adequate nutritional intake and initiate nutrition consult as needed Administer ordered medications to maintain glucose within target range Assess for signs and symptoms of hyperglycemia and hypoglycemia, monitor glucose as ordered Instruct patient on self management of diabetes and initiate consult as needed Problem: Hematologic Goal: Maintains hematologic stability Outcome: Progressing Flowsheets (Taken 03/23/20241758) Maintains Hematologic Stability: Administer supportive blood products/factors as ordered and appropriate Monitor labs Assess for signs and symptoms of bleeding or hemorrhage Goals: Clinical Goals for the Shift: increase activity; improve appetite, manage anxiety;pain control; stable vital signs; patient's comfort and safety Summary: Chest tube removed, no complications noted during and after chest tube removal. Pain is managed by PRN medications. Remains hemodynamically and neurologically stable. Able to tolerate transferring from bed to chair. All lines remains patent and intact. Kept monitored. * Initial Assessments - Liberty Ruelas RN - 03/24/2024 4:09 PM CDT GIOVANNI Initial Assessment Interview Note Information Obtained From: Patient (03/24/24 2163) Admission Source: Non Medical (Home) Impression: 58 y o male who presents for a planned AVR and LAAO Plan Includes: Assessment completed 03/24/2024 ANTELMO () Transportation to be provided by the spouse Admitted for a planned AVR/LAAO -Extubated 03/23; swan, reyes, chest tubes d/c 03/24; AFib w/ RVR -Amio bolus and drip; diltiazam PO;start metop; WBC 10.9 03/24; Cleviprex drip; replace K+ and phos; Lasix x1; 2 PRBC Patient lives in a private residence with is and child; 1 outside step; works full-time; independent with ADLs; uses [facility] in [place], [place]; reliable transportation -car; smokes 1ppd x 35 years; smoke marijuana 2x daily, however will indulge in gummies; interacts with friend; spouse deferred advance directives and would like to speak with the patien Primary Source of Transportation: Does the patient need discharge transport arranged?: No (Family for transport home) (03/24/24 1602) Health Insurance Coverage: C[employer] Open Access Prescription Coverage: Yes Pharmacy: [id number] - [place], [place] - [address] [facility] [id number] Primary Care Provider: Carolyn Davis MD Prior to Admission: Functional Status: Independent with ADLs Primary Caregiver: Self Support System: Spouse/Significant Other, Family members (Spouse: Yumiko Madden [phone]) Home Care Services: No Outpatient Services: No Durable Medical Equipment: None Living Arrangements: Spouse/significant other, Children Type of Residence: Private residence Steps in home?: Yes, Outside of home Number of steps outside: 1 steps Medication management: Independent (03/24/24 1609) SDOH: Transportation: In the past 12 months, has lack of transportation kept you from medical appointments or from getting medications?: No In the past 12 months, has lack of transportation kept you from meetings, work, or from getting things needed for daily living?: No (03/24/24 165) Financial Resource: How hard is it for you to pay for the very basics like food, housing, medical care, and heating?: Not very hard (03/24/24 165) Housing: In the last 12 months, was there a time when you were not able to pay the mortgage or rent on time?: No In the past 12 months, how many times have you moved where you were living?: 0 At any time in the past 12 months, were you homeless or living in a longterm (including now)?: No (03/24/241652) Utilities: Social Connections: In a typical week, how many times do you talk on the phone with family, friends, or neighbors?: Once a week How often do you get together with friends or relatives?: Once a week How often do you attend latter-day or pentecostal services?: Never Do you belong to any clubs or organizations such as latter-day groups, unions, fraternal or athletic groups, or school groups?: Yes How often do you attend meetings of the clubs or organizations you belong to?: More than 4 times per year Are you , , , , never , or living with a partner?: (03/24/241652) Food Insecurity: Within the past 12 months, you worried that your food would run out before you got the money to buymore.: Never true Within the past 12 months, the food you bought just didn't last and you didn't have money to get more.: Never true (03/24/241652) Alcohol Use: Q1: How often do you have a drink containing alcohol?: Never Q2: How many drinks containing alcohol do you have on a typical day when you are drinking?: Patientdoes not drink Q3: How often do you have six or more drinks on one occasion?: Never (03/24/241653) PHQ Screening Potential discharge needs include: Home Health: detention (03/24/241608) OP Services: Dialysis: Behavioral Health Services: Behavioral Health Services: No (03/24/241608) Anticipated Level of Care: Anticipated discharge level of care: Private residence Pt/Family agrees with Anticipated Level of Care: Yes (03/24/241608) Patient expects to be Discharged to: Private residence, (03/24/241608) Additional Information: CM met with patient at bedside to complete initial assessment. Address and phone number verified with face sheet. When medically stable, patient will discharge to home. Patient lives in a private residence with his and child and reports being independent with ADLs. Denies HHC or DME. Patient's Identified Problem/Goal Problem: Ensure acute medical needs are met and that patient has a safe discharge plan. Goal: Secure a discharge plan that patient/family are agreeable with and ensure patient has continuum of care. Case management will follow for discharge planning and send referrals as needed. Goals include: To assure continuity of care, To maximize coping skills, To assure patient is in a safe environment and To assure access to community resources. Plan includes: 1. Collaboration with Patient, Provider, Direct Care Nurse, Internet Network Specialist, and other members of theHealth Care Team to assure needed interventions completed. 2. Return patient to optimal level of self-care post discharge. 3. Mud Engineer will follow for Discharge Planning - interventions as needed 4. Anticipated level of care at discharge 5. Planned Discharge Disposition VI Hannon, RN printer assistant [phone] * Plan of Care - Carole Lundberg RN - 03/23/2024 6:00 PM CDT Problem: Skin Integrity Impairment Risk Goal: Mobility will improve Outcome: Progressing Flowsheets (Taken 03/23/20241756) Mobility will improve: Encourage mobilization to extent of ability, assist with range of motion as needed Assess circulation, sensation and/or motion of extremity Collaborate with physical therapy Encourage turning and repositioning, assist as needed Encourage ambulation Goal: Understanding of ways to prevent future skin breakdown will improve Outcome: Progressing Flowsheets (Taken 03/23/20241756) Understanding of ways to prevent future skin breakdown will improve: Discuss treatments to protect skin integrity Discuss treatment plan for related conditions Goal: Risk for impaired skin integrity will decrease Outcome: Progressing Flowsheets (Taken 03/23/20241756) Risk for impaired skin integrity will decrease: Identify risk factors for impaired skin integrity and/or pressure injuries Implement precautions to protect skin integrity Monitor skin integrity, appearance and temperature Use moisturizing agent to dry skin Perform cleansing of skin when soiled Provide pressure-redistribution bed, mattress and/or chair cushion Provide moisture management and/or incontinence care Apply skin protectant to elbows and heels Float heels off surface Protect skin from pressure due to medical devices when appropriate Problem: Fall Risk Goal: Ability to state ways to decrease the risk of falls will improve Outcome: Progressing Flowsheets (Taken 03/23/20241756) Ability to state ways to decrease the risk of falls will improve: Teach fall prevention measures Teach information regarding appropriate enviornmental changes Goal: Will remain free from falls Outcome: Progressing Flowsheets (Taken 03/23/20241756) Will remain free from falls: Assess risk factors for falls Implement fall prevention measures Collaborate with other disciplines Goal: Will remain free from injury from falls Outcome: Progressing Flowsheets (Taken 03/23/20241756) Will remain free from injury from falls: Provide safe environment for conduction of activities of daily living in hospital environment Problem: Activity Goal: Patient's tolerance of increased activity will improve Outcome: Progressing Flowsheets (Taken 03/23/20241756) Patient's tolerance of increased activity will improve: Implement and manage activity progression plan Plan scheduling of activities for periods of rest Monitor signs of activity intolerance Encourage energy conservation techniques Encourage use of non-slip footwear Encourage out of bed for meals Assess response to activities Identify limitations or barriers to activity and/or excercise Encourage participation in care Encourage use of assistive devices as needed Problem: Skin/Tissue Integrity Goal: Skin integrity remains intact Outcome: Progressing Flowsheets (Taken 03/23/20241758) Skin integrity remains intact: Assess and document risk factors for pressure injury development Monitor for areas of redness and/or skin breakdown Assess and document skin integrity Goal: Incisions, wounds, or drain sites healing without S/S of infection Outcome: Progressing Flowsheets (Taken 03/23/20241758) Incision(s), Wound(s) or Drain Site(s) healing without S/S of infection: Assess and document risk factors for pressure injury development Assess and document skin integrity Assess and document dressing/incision, wound bed, drain sites and surrounding tissue Implement wound care per orders Goal: Oral mucous membranes remain intact Description: Outcome: Progressing Flowsheets (Taken 03/23/20241758) Oral mucous membranes remain intact: Assess oral mucosa and hygiene practices Implement oral medicated treatments as ordered Implement preventative oral hygiene regimen Problem: Musculoskeletal Goal: Return mobility to safest level of function Outcome: Progressing Flowsheets (Taken 03/23/20241758) Return mobility to safest level of function: Assist with transfers and ambulation using safe patient handling equipment as needed Instruct patient/family in ordered activity level Obtain PT/OT consults as needed Assess patient stability and activity tolerance for standing, transferring and ambulating with or without assistive devices Ensure adequate protection for wounds/incisions during mobilization Problem: Gastrointestinal Goal: Minimal or absence of nausea and vomiting Outcome: Progressing Flowsheets (Taken 03/23/20241758) Minimal or absence of nausea and vomiting: Assess gastrointestinal status Provide a clean room free from unpleasant odors Administer ordered antiemetic medications as needed, assess medication effects Provide appropriate dietary choices Monitor intake and output Provide fluid volume management Monitor diagnostic test results Discuss complementary and alternative therapies Nutrition consult to assist patient with adequate nutrition and appropriate food choices Goal: Maintains adequate nutritional intake Outcome: Progressing Flowsheets (Taken 03/23/20241758) Maintains adequate nutritional intake: Identify factors contributing to decreased intake, treat as appropriate Monitor I&O, weight and lab values Obtain nutritional consult as needed Assist with meals as needed Monitor percentage of each meal consumed Problem: Genitourinary Goal: Urinary catheter remains patent Outcome: Progressing Flowsheets (Taken 03/23/20241758) Urinary catheter remains patent: Assess patency of urinary catheter Assess need for a larger catheter size or a 3-way catheter for continuous bladder irrigation Problem: Infection Goal: Absence of infection during hospitalization Outcome: Progressing Flowsheets (Taken 03/23/20241758) Absence of infection during hospitalization: Assess and monitor for signs and symptoms of infection Monitor lab/diagnostic results Monitor all insertion sites i.e., indwelling lines, tubes and drains and evaluate for need daily Monitor endotracheal (as able) and nasal secretions for any change in amount and/or color [place] appropriate cooling/warming therapies per order Administer medications as ordered Instruct and encourage patient and family to use good hand hygiene technique Identify and instruct in appropriate isolation precautions for identified infection/condition Apply infection specific precautions per policy Goal: Absence of fever/infection during anticipated neutropenic period Outcome: Progressing Flowsheets (Taken 03/23/20241758) Absence of fever/infection during anticipated neutropenic period: Monitor ANC results Administer growth factors as ordered Implement neutropenic precautions Problem: Metabolic/Fluid and Electrolytes Goal: Electrolytes maintained within normal limits Outcome: Progressing Flowsheets (Taken 03/23/20241758) Electrolytes maintained within normal limits: Monitor labs and assess patient for signs and symptoms of electrolyte imbalances Administer electrolyte replacement as ordered Monitor response to electrolyte replacements, including repeat lab results as appropriate Fluid restriction as ordered Instruct patient on fluid and nutrition restrictions as appropriate Provide fluid volume management Goal: Hemodynamic stability and optimal renal function maintained Outcome: Progressing Flowsheets (Taken 03/23/20241758) Hemodynamic stability and optimal renal function maintained: Monitor labs and assess for signs and symptoms of volume excess or deficit Monitor intake, output and patient weight Monitor urine specific gravity, serum osmolarity and serum sodium as indicated or ordered Monitor response to interventions for patient's volume status, including labs, urine output, blood pressure (other measures as available) Encourage oral intake as appropriate Manage intravenous fluids Instruct patient on fluid and nutrition restrictions as appropriate Goal: Glucose maintained within prescribed range Outcome: Progressing Flowsheets (Taken 03/23/20241758) Glucose maintained within prescribed range: Assess barriers to adequate nutritional intake and initiate nutrition consult as needed Administer ordered medications to maintain glucose within target range Assess for signs and symptoms of hyperglycemia and hypoglycemia, monitor glucose as ordered Instruct patient on self management of diabetes and initiate consult as needed Problem: Hematologic Goal: Maintains hematologic stability Outcome: Progressing Flowsheets (Taken 03/23/20241758) Maintains Hematologic Stability: Administer supportive blood products/factors as ordered and appropriate Monitor labs Assess for signs and symptoms of bleeding or hemorrhage Goals: Increase activity and appetite; monitor for bleeding; maintain stable hemodynamics; patient's comfort and safety Summary: Patient was extubated at 1000H and hooked on nasal cannula. No complications noted post extubation. Patient tolerated mobilizing from bed to chair. Patient remained hemodynamicallly and neurologically stable. Kept monitored * Plan of Care - Yesica Grady RN - 03/23/2024 7:47 AM CDT Goals: Clinical Goals for the Shift: Bleeding control, comfort until extubation, pain contro, stable vs. Summary: Pt S/P AVR per Dr. Baldwin. Pt noted to have increased CT output and decreasing CI. 2 units ofPRBCs and 1 unit of FFP given. Critical care team PIPE SMOKER MACHINE OPERATOR, Jaron Portillo, noted effusion per ultrasound. Dr. Baldwin notified. Chest tubes stripped and epinephrine drip started. Started weaning sedation this am; pt very anxious and restless in bed. Precedex titrated for comfort and restlessness. * Plan of Care - Letty Warner CRTT - 03/23/2024 3:14 AM CDT Problem: Mechanical Ventilation Goal: Ventilator management will be safely performed Outcome: Progressing Flowsheets (Taken 03/23/2024 0314) Ventilator management will be safely performed: Hyper oxygenate prior to suctioning Decrease or hold sedative medications prior to performing ventilator weaning trials Perform cares around ventilator weaning schedule Perform sedation vacation with ventilator weaning trials Monitor ventilator weaning process Manage ventilator settings and alarms * Plan of Care - Becky Ta RN - 03/22/2024 4:22 PM CDT Goals: Clinical Goals for the Shift: Bleeding control, comfort until extubation, pain contro, stable vs. Summary: resting after avr, on vent will wean vent when appropriate * Op Note - Ernie Baldwin MD - 03/22/2024 8:48 AM CDT Op Note: AVR Patient: Stephan Madden Service Date: 03/22/2024 : 1965 Admit Date: 03/22/2024 SURGEON Ernie Baldwin MD BICYCLE TECHNICIAN Marlo Rdz PREOPERATIVE DIAGNOSIS Aortic Stenosis POSTOPERATIVE DIAGNOSIS Aortic Stenosis PROCEDURE PERFORMED Aortic valve replacement using 23-millimeter [place] mechanical aortic valve Sternal plating ANESTHESIA General. EBL: Procedure was done on cardiopulmonary bypass and blood loss cannot be estimated accurately INDICATIONS This is a 58 y.o. male who presented with symptoms of heart failure and was found to have severe aortic stenosis that was progressive. He is a smoker with COPD and was asked to cut back/quit smoking.We offered him surgical aortic valve replacement and offered a mechanical valve due to his younger age. He preferred the mechanical valve and was okay with lifelong anticoagulation. OPERATIVE FINDINGS The patient had normal heart function with severe aortic stenosis without other significant valvular heart disease at the start of the case on JAVIER. After excision of the aortic valve leaflets and decalcification of the annulus, a 23 mm Sizer for the on X mechanical valve fit best into the annulus. At the end of the case, mechanical valve was well seated without paravalvular leak and was opening and closing appropriately. The patient was noted to have normal heart function without significant valvular heart disease at the end of the case without inotropic or pressor support. Cross-clamp time was 67 minutes. Bypass time was 98 minutes. OPERATIVE REPORT After induction of anesthesia and endotracheal intubation, the patient's neck, chest, abdomen, and legs were prepped and draped in sterile fashion. Median sternotomy incision was performed. His thymus was divided in the midline. The pericardium was opened up and the edges suspended with silk sutures. An epiaortic ultrasound probe was used to scan the ascending aorta and there were no calcified ornoncalcified plaques noted. An area on the aorta was then identified for cannulation and cross-clamping. Pursestrings of 2-0 Prolene were placed in the aorta and the right atrium. The aorta was cannulated routinely as was the right atrium. The patient was placed on full bypass once we obtained adequate ACTs. An antegrade cardioplegia catheter was placed. The patient was cooled to 32 degrees. We crossclamped the aorta and delivered a liter of cardioplegia, all antegrade. At this point then the aorta was opened up in a transverse fashion. The valve was excised. Annular and leaflet calcium was debrided with Rongeurs. The valve was sized and accepted a 23 Sizer best. A series of interrupted 2-0 Ethibond sutures were placed circumferentially around the anulus of the aortic valve. A total of 14 sutures were used which were then placed in the sewing ring of the valve. The valve was advanced into position, all sutures tied with Cor-Knots. The valve appeared to be wellseated. Both the right and left coronaries were well clear of the valve. The aortotomy was then closed in 2 layers with running 4-0 Prolene. At this point then the patient was rewarmed. The patient was given a warm blood reanimation dose, followed by release of the crossclamp. Atrial and ventricular pacing wires were placed and the patient was begun on AV pacing. The patient allowed to reperfuse for a while. We ventilated the patient and allowed him to eject. We went through de-airing maneuvers, after which the LV vent and aortic rootvents were removed and their sites reinforced with 5-0 Prolene. The patient was weaned from bypass and tolerated this well . Protamine was given to reverse the heparin and the cannulas were removed. His chest wall was dried up. His chest was drained with appropriate chest tubes. The thymus was approximated in the midline. The sternum was closed with multiple interrupted heavy gauge wire sutures and three titanium plates with titanium screws, followed by absorbable sutures in the fascia, subcutaneous tissues, and skin. The patient tolerated the procedure well and was taken to ICU in stable, but critical condition. I was present from the start of the case and stayed until skin closure was begun. I was immediatelyavailable at all other times. The patient received a dose of IV antibiotics within an hour of incision. Orders were given to continue it for 24 hours postoperatively. Preop subcu heparin was not given as the patient was systemically heparinized during the case. The patient was on beta blockade and received a dose within 24 hours of surgery. * Brief Op Note - Marlo Rdz MD - 03/22/2024 8:48 AM CDT Operative Progress Note Surgical Team: Surgeons and Role: * Ernie Baldwin MD - Primary Anesthesiologist: Sherron Archibald MD Anesthesiologist Inspector Floor: Vania Chaudhry AA Paint Department Supervisor: Thuy Miranda CCP Analytical Scientist: Venkat Yeager RN Scrub Relief: Prerna Smalls RN Scrub: Sole Weiner RN CONCRETE INSPECTOR: Jl Ledesma CRNFA FLOAT: Brenna Johnson RN; Gregg Mcdonald RN DATE OF SURGERY : 03/22/2024 Preoperative Diagnosis: Pre-op Diagnosis * Aortic valve stenosis, etiology of cardiac valve disease unspecified [I35.0] Postoperative Diagnosis: Post-op Diagnosis * Aortic valve stenosis, etiology of cardiac valve disease unspecified [I35.0] Procedure(s): Procedure(s) (LRB): REPLACEMENT AORTIC VALVE, LAMBERTO (N/A) Operative Findings: AVR with ON-X 23 mm -[address] in the right pleura -24 Fr Seferino in mediastinum Estimated Blood Loss: 500 mL Specimens: ID Type Source Tests Collected by Time A : Aortic Valve Leaflets Tissue Heart Valve SURGICAL PATHOLOGY Ernie Baldwin MD 03/22/2024 [id number] Implants: Implant Name Type Inv. Item Serial No. Addictions Counselor Lot No. LRB No. Used Action ON-X INTRNL Valve Coronary Aortic Mechanical On X 23mm [id number] - [id number] - [id number] ON-X INTRNL Valve Coronary Aortic Mechanical On X 23mm [id number] On-X Intrnl N/A 1 Implanted [employer] Screw Bone Slf Drl Full Thread Locking 3.5x16mm Ti 100.035.16 - [id number] [employer] Screw Bone Slf Drl Full Thread Locking 3.5x16mm Ti 100.035.16 [employer] N/A 6 Implanted [employer] Screw Bone Slf Drl Full Thread Locking 3.5x18mm Ti 100.035.18 - [id number] [employer] Screw Bone Slf Drl Full Thread Locking 3.5x18mm Ti 100.035.18 [employer] N/A 10 Implanted [employer] Plate Bone Low Profile 4 Hole Box Sternum Ti 115.103.04 - [id number] [employer] Plate Bone Low Profile 4 Hole Box Sternum Ti 115.103.04 [employer] N/A 1 Implanted [employer] Plate Bone Low Profile 6 Hole O Concave Sternum Ti 115.604.06 - [id number] [employer] Plate Bone Low Profile 6 Hole O Concave Sternum Ti 115.604.06 [employer] N/A 1 Implanted [employer] Plate Bone Low Profile 6 Hole H Shape Sternum Ti 115.102.06 - [id number] [employer] Plate Bone Low Profile 6 Hole H Shape Sternum Ti 115.102.06 [employer] N/A 1 Implanted Blood/Blood Products Transfused: 0 mls Complications: None Condition on Discharge from the operating room was stable Marlo Rdz MD Date: 03/22/2024 Time: 11:55 AM Cosigned by Ernie Baldwin MD at 03/22/2024 6:56 PM CDT documented in this encounter Plan of Treatment Pending Results Name Type Priority Associated Diagnoses Date /Time Magnesium Lab STAT 03/22/2024 3:1 1 PM CDT Scheduled Orders Name Type Priority Associated Diagnoses Orde r Schedule Magnesium Lab STAT Once for 1 Occ urrences starting 03/22/2024 until 03/22/2024 CBC without differential Lab Routine Aortic stenosis, severe Expected: 04/05/2024, Expires: 03/29/2025 Comprehensive metabolic panel Lab Routine Aortic stenosis, severe Expected: 04/05/2024, Expires: 03/29/2025 Protime-INR Lab Routine Aortic stenosis, severe 99 Occurrences starting 03/29/2024 until 03/29/2025 Scheduled Referrals Name Type Priority Associated Diagnoses Order Schedule Ambulatory referral to Home Health Outpatient Referral Routine Aortic stenosis, severe Expected: 03/29/2024, Expires: 09/28/2024 documented as of this encounter Procedures Procedure Name Priority Date/Time Associated Diagnosis Comments EGFR STAT 03/30/2024 9:54 AM CDT PROTIME-INR STAT 03/30/2024 9:54 AM CDT BASIC METABOLIC PANEL STAT 03/30/2024 9:54 AM CDT POCT GLUCOSE DEVICE Routine 03/30/2024 7 :38 AM CDT XR CHEST 1 VIEW IP Routine 03/30/2024 4:12 AM CDT POCT GLUCOSE DEVICE Routine 03/30/2024 12:46 AM CDT POCT GLUCOSE DEVICE Routine 03/29/2024 8 :50 PM CDT POCT GLUCOSE DEVICE Routine 03/29/2024 4 :37 PM CDT POCT GLUCOSE DEVICE Routine 03/29/2024 1 :03 PM CDT TRANSTHORACIC ECHO (TTE) COMPLETE W DOPPLER/CF WO CONTRAST Routine 03/29/2024 10:30 AM CDT PROTIME-INR STAT 03/29/2024 8:48 AM CDT EGFR Routine 03/29/2024 5:40 AM CDT APTT Routine 03/29/2024 5:40 AM CDT CBC WITHOUT DIFFERENTIAL Routine 03/29/2024 5:40 AM CDT BASIC METABOLIC PANEL Routine 03/29/2024 5:40 AM CDT XR CHEST 1 VIEW IP Routine 03/29/2024 4:21 AM CDT POCT GLUCOSE DEVICE Routine 03/29/2024 1 :39 AM CDT APTT STAT 03/29/2024 12:28 AM CDT APTT Timed 03/28/2024 10:04 PM CDT POCT GLUCOSE DEVICE Routine 03/28/2024 8 :19 PM CDT POCT GLUCOSE DEVICE Routine 03/28/2024 5 :49 PM CDT APTT Timed 03/28/2024 1:53 PM CDT POCT GLUCOSE DEVICE Routine 03/28/2024 11:58 AM CDT XR CHEST 1 VIEW IP Routine 03/28/2024 9:09 AM CDT EGFR Routine 03/28/2024 6:30 AM CDT APTT Routine 03/28/2024 6:30 AM CDT PROTIME-INR Routine 03/28/2024 6:30 AM CDT CBC WITHOUT DIFFERENTIAL Routine 03/28/2024 6:30 AM CDT BASIC METABOLIC PANEL Routine 03/28/2024 6:30 AM CDT POCT GLUCOSE DEVICE Routine 03/28/2024 1 :27 AM CDT APTT Timed 03/27/2024 9:37 PM CDT PROTIME-INR Timed 03/27/2024 9:37 PM CDT POCT GLUCOSE DEVICE Routine 03/27/2024 8 :47 PM CDT POCT GLUCOSE DEVICE Routine 03/27/2024 4 :54 PM CDT EGFR Timed 03/27/2024 2:23 PM CDT APTT Timed 03/27/2024 2:23 PM CDT CBC WITHOUT DIFFERENTIAL Timed 03/27/2024 2:23 PM CDT PHOSPHORUS Timed 03/27/2024 2:23 PM CDT MAGNESIUM Timed 03/27/2024 2:23 PM CDT BASIC METABOLIC PANEL Timed 03/27/2024 2:23 PM CDT CRITICAL CARE Routine 03/27/2024 12:14 PM CDT Aortic stenosis, severe POCT GLUCOSE DEVICE Routine 03/27/2024 11:55 AM CDT XR CHEST 1 VIEW IP Routine 03/27/2024 8:09 AM CDT POCT GLUCOSE DEVICE Routine 03/27/2024 7 :53 AM CDT APTT Routine 03/27/2024 6:49 AM CDT PROTIME-INR Routine 03/27/2024 6:49 AM CDT EGFR Routine 03/27/2024 2:13 AM CDT CBC WITHOUT DIFFERENTIAL Routine 03/27/2024 2:13 AM CDT BASIC METABOLIC PANEL Routine 03/27/2024 2:13 AM CDT APTT Timed 03/27/2024 12:12 AM CDT POCT GLUCOSE DEVICE Routine 03/26/2024 8 :28 PM CDT APTT Timed 03/26/2024 5:32 PM CDT POCT GLUCOSE DEVICE Routine 03/26/2024 4 :54 PM CDT EGFR Timed 03/26/2024 12:15 PM CDT DIFFERENTIAL AUTO Timed 03/26/2024 12:15 PM CDT CBC WITH AUTO DIFFERENTIAL Timed 03/26/2024 12:15 PM CDT APTT Timed 03/26/2024 12:15 PM CDT PHOSPHORUS Timed 03/26/2024 12:15 PM CDT MAGNESIUM Timed 03/26/2024 12:15 PM CDT BASIC METABOLIC PANEL Timed 03/26/2024 12:15 PM CDT POCT GLUCOSE DEVICE Routine 03/26/2024 12:10 PM CDT CRITICAL CARE Routine 03/26/2024 10:03 AM CDT Aortic stenosis, severe XR CHEST 1 VIEW ED Urgent/IP Urgent 03/26/2024 9:21 AM CDT POCT GLUCOSE DEVICE Routine 03/26/2024 7 :34 AM CDT APTT STAT 03/26/2024 6:13 AM CDT EGFR Routine 03/26/2024 4:30 AM CDT CBC WITHOUT DIFFERENTIAL Routine 03/26/2024 4:30 AM CDT MAGNESIUM Routine 03/26/2024 4:30 AM CDT BASIC METABOLIC PANEL Routine 03/26/2024 4:30 AM CDT POCT GLUCOSE DEVICE Routine 03/26/2024 3 :11 AM CDT APTT STAT 03/26/2024 12:10 AM CDT POCT GLUCOSE DEVICE Routine 03/25/2024 7 :33 PM CDT APTT Timed 03/25/2024 6:50 PM CDT POCT GLUCOSE DEVICE Routine 03/25/2024 4 :58 PM CDT EGFR Timed 03/25/2024 4:21 PM CDT BASIC METABOLIC PANEL Timed 03/25/2024 4:21 PM CDT APTT STAT 03/25/2024 12:21 PM CDT PROTIME-INR STAT 03/25/2024 12:21 PM CDT CBC WITHOUT DIFFERENTIAL STAT 03/25/2024 12:21 PM CDT POCT GLUCOSE DEVICE Routine 03/25/2024 12:06 PM CDT ECG 12-LEAD STAT 03/25/2024 9:58 AM CDT CRITICAL CARE Routine 03/25/2024 8:35 AM CDT Aortic stenosis, severe POCT GLUCOSE DEVICE Routine 03/25/2024 7 :43 AM CDT XR CHEST 1 VIEW ED Urgent/IP Urgent 03/25/2024 6:49 AM CDT EGFR Routine 03/25/2024 5:05 AM CDT CBC WITHOUT DIFFERENTIAL Routine 03/25/2024 5:05 AM CDT MAGNESIUM Routine 03/25/2024 5:05 AM CDT BASIC METABOLIC PANEL Routine 03/25/2024 5:05 AM CDT POCT GLUCOSE DEVICE Routine 03/25/2024 2 :32 AM CDT POCT GLUCOSE DEVICE Routine 03/24/2024 9 :22 PM CDT POCT GLUCOSE DEVICE Routine 03/24/2024 5 :52 PM CDT TRANSFUSE RED BLOOD CELLS Timed 03/24/2024 4:10 PM CDT PREPARE RBC STAT 03/24/2024 3:57 PM CDT EGFR Timed 03/24/2024 2:01 PM CDT CBC WITHOUT DIFFERENTIAL Timed 03/24/2024 2:01 PM CDT PHOSPHORUS Timed 03/24/2024 2:01 PM CDT MAGNESIUM Timed 03/24/2024 2:01 PM CDT BASIC METABOLIC PANEL Timed 03/24/2024 2:01 PM CDT POCT GLUCOSE DEVICE Routine 03/24/2024 12:41 PM CDT POCT GLUCOSE DEVICE Routine 03/24/2024 7 :38 AM CDT CRITICAL CARE Routine 03/24/2024 7:13 AM CDT Aortic stenosis, severe EGFR Routine 03/24/2024 4:06 AM CDT CBC WITHOUT DIFFERENTIAL Routine 03/24/2024 4:06 AM CDT MAGNESIUM Routine 03/24/2024 4:06 AM CDT BASIC METABOLIC PANEL Routine 03/24/2024 4:06 AM CDT XR CHEST 1 VIEW IP Routine 03/24/2024 4:00 AM CDT POCT GLUCOSE DEVICE Routine 03/24/2024 1 :50 AM CDT CRITICAL CARE Routine 03/23/2024 11:23 PM CDT Aortic stenosis, severe POCT GLUCOSE DEVICE Routine 03/23/2024 8 :08 PM CDT POCT GLUCOSE DEVICE Routine 03/23/2024 4 :23 PM CDT POCT GLUCOSE DEVICE Routine 03/23/2024 1 :48 PM CDT EGFR Timed 03/23/2024 1:00 PM CDT CBC WITHOUT DIFFERENTIAL Timed 03/23/2024 1:00 PM CDT MAGNESIUM Timed 03/23/2024 1:00 PM CDT BASIC METABOLIC PANEL Timed 03/23/2024 1:00 PM CDT POCT GLUCOSE DEVICE Routine 03/23/2024 11:08 AM CDT BLOOD GAS, ARTERIAL Timed 03/23/2024 9 :09 AM CDT POCT GLUCOSE DEVICE Routine 03/23/2024 9 :00 AM CDT CRITICAL CARE Routine 03/23/2024 7:44 AM CDT Aortic valve stenosis, etiology of cardiac valve disease unspecified ECG 12-LEAD STAT 03/23/2024 7:29 AM CDT POCT GLUCOSE DEVICE Routine 03/23/2024 6 :23 AM CDT POCT GLUCOSE DEVICE Routine 03/23/2024 4 :25 AM CDT POCT GLUCOSE DEVICE Routine 03/23/2024 3 :28 AM CDT XR CHEST 1 VIEW IP Routine 03/23/2024 3:17 AM CDT POCT GLUCOSE DEVICE Routine 03/23/2024 2 :20 AM CDT OXYHEMOGLOBIN, PULMONARY ARTERY Routine 03/23/2024 2:18 AM CDT EGFR Routine 03/23/2024 2:12 AM CDT CBC WITHOUT DIFFERENTIAL Routine 03/23/2024 2:12 AM CDT MAGNESIUM Routine 03/23/2024 2:12 AM CDT BASIC METABOLIC PANEL Routine 03/23/2024 2:12 AM CDT POCT GLUCOSE DEVICE Routine 03/23/2024 1 :16 AM CDT POCT GLUCOSE DEVICE Routine 03/23/2024 12:05 AM CDT PROTIME-INR STAT 03/22/2024 11:32 PM CDT FIBRINOGEN STAT 03/22/2024 11:32 PM CDT POCT GLUCOSE DEVICE Routine 03/22/2024 11:09 PM CDT CRITICAL CARE Routine 03/22/2024 10:40 PM CDT Aortic valve stenosis, etiology of cardiac valve disease unspecified POCT GLUCOSE DEVICE Routine 03/22/2024 10:15 PM CDT OXYHEMOGLOBIN, PULMONARY ARTERY STAT 03/22/2024 9:51 PM CDT XR CHEST 1 VIEW ED Urgent/IP Urgent 03/22/2024 9:48 PM CDT LACTATE STAT 03/22/2024 9:47 PM CDT CALCIUM,IONIZED, WHOLE BLOOD Add-On 03/22/2024 9:47 PM CDT EGFR STAT 03/22/2024 9:47 PM CDT CBC WITHOUT DIFFERENTIAL STAT 03/22/2024 9:47 PM CDT MAGNESIUM STAT 03/22/2024 9:47 PM CDT BLOOD GAS, ARTERIAL STAT 03/22/2024 9 :47 PM CDT BASIC METABOLIC PANEL STAT 03/22/2024 9:47 PM CDT POCT GLUCOSE DEVICE Routine 03/22/2024 9 :11 PM CDT POCT GLUCOSE DEVICE Routine 03/22/2024 8 :04 PM CDT TRANSFUSE RED BLOOD CELLS Timed 03/22/2024 7:55 PM CDT TRANSFUSE PLASMA Timed 03/22/2024 7:40 PM CDT POCT GLUCOSE DEVICE Routine 03/22/2024 6 :49 PM CDT TRANSFUSE CRYOPRECIPITATE (POOLED UNITS) Timed 03/22/2024 6:45 PM CDT TRANSFUSE CRYOPRECIPITATE (POOLED UNITS) Timed 03/22/2024 6:33 PM CDT TRANSFUSE RED BLOOD CELLS Timed 03/22/2024 6:12 PM CDT POCT GLUCOSE DEVICE Routine 03/22/2024 6 :01 PM CDT PREPARE CRYOPRECIPITATE (POOLED UNITS) STAT 03/22/2024 5:40 PM CDT CBC WITHOUT DIFFERENTIAL STAT 03/22/2024 5:35 PM CDT BLOOD GAS, ARTERIAL STAT 03/22/2024 5 :35 PM CDT POCT GLUCOSE DEVICE Routine 03/22/2024 4 :40 PM CDT CALCIUM,IONIZED, WHOLE BLOOD STAT 03/22/2024 3:11 PM CDT EGFR STAT 03/22/2024 3:11 PM CDT APTT Routine 03/22/2024 3:11 PM CDT PROTIME-INR Routine 03/22/2024 3:11 PM CDT FIBRINOGEN STAT 03/22/2024 3:11 PM CDT CBC WITHOUT DIFFERENTIAL STAT 03/22/2024 3:11 PM CDT MAGNESIUM STAT 03/22/2024 3:11 PM CDT BLOOD GAS, ARTERIAL STAT 03/22/2024 3 :11 PM CDT BASIC METABOLIC PANEL STAT 03/22/2024 3:11 PM CDT POCT GLUCOSE DEVICE Routine 03/22/2024 2 :03 PM CDT POCT GLUCOSE DEVICE Routine 03/22/2024 1 :00 PM CDT TRANSFUSE PLATELETS Timed 03/22/2024 12:53 PM CDT XR CHEST 1 VIEW ED Urgent/IP Urgent 03/22/2024 12:48 PM CDT EGFR STAT 03/22/2024 12:31 PM CDT APTT STAT 03/22/2024 12:31 PM CDT PROTIME-INR STAT 03/22/2024 12:31 PM CDT CBC WITHOUT DIFFERENTIAL STAT 03/22/2024 12:31 PM CDT MAGNESIUM Routine 03/22/2024 12:31 PM CDT BLOOD GAS, ARTERIAL STAT 03/22/2024 12:31 PM CDT BASIC METABOLIC PANEL STAT 03/22/2024 12:31 PM CDT CALCIUM,IONIZED, WHOLE BLOOD Routine 03/22/2024 12:30 PM CDT POCT GLUCOSE DEVICE Routine 03/22/2024 12:30 PM CDT POC BLOOD GAS AND CHEMISTRIES, ARTERIAL Routine 03/22/2024 11:17 AM CDT CRITICAL CARE Routine 03/22/2024 11:16 AM CDT Aortic valve stenosis, etiology of cardiac valve disease unspecified POCT ACTIVATED CLOTTING TIME, HIGH RANGE Routine 03/22/2024 11:15 AM CDT POC BLOOD GAS AND CHEMISTRIES, ARTERIAL Routine 03/22/2024 10:38 AM CDT SURGICAL PATHOLOGY Routine 03/22/2024 10:38 AM CDT Aortic valve stenosis, etiology of cardiac valve disease unspecified POCT ACTIVATED CLOTTING TIME, HIGH RANGE Routine 03/22/2024 10:36 AM CDT POC BLOOD GAS AND CHEMISTRIES, ARTERIAL Routine 03/22/2024 10:13 AM CDT POCT ACTIVATED CLOTTING TIME, HIGH RANGE Routine 03/22/2024 10:10 AM CDT PLATELET COUNT STAT 03/22/2024 10:10 AM CDT POC BLOOD GAS AND CHEMISTRIES, ARTERIAL Routine 03/22/2024 9:36 AM CDT POCT ACTIVATED CLOTTING TIME, HIGH RANGE Routine 03/22/2024 9:34 AM CDT POCT ACTIVATED CLOTTING TIME, HIGH RANGE Routine 03/22/2024 9:02 AM CDT POC BLOOD GAS AND CHEMISTRIES, ARTERIAL Routine 03/22/2024 8:38 AM CDT POCT ACTIVATED CLOTTING TIME, HIGH RANGE Routine 03/22/2024 8:36 AM CDT REPLACEMENT AORTIC VALVE 03/22/2024 7:39 AM CDT Aortic valve stenosis, etiology of cardiac valve disease unspecified PROTIME-INR STAT 03/22/2024 6:46 AM CDT TYPE AND SCREEN STAT 03/22/2024 6:24 AM CDT PREPARE PLATELETS STAT 03/22/2024 6:0 0 AM CDT PREPARE PLASMA STAT 03/22/2024 6:00 AM CDT PREPARE RBC STAT 03/22/2024 6:00 AM CDT documented in this encounter Results * eGFR (03/30/2024 9:54 AM CDT) eGFR >90 >=60 mL/min/1. 73 m2 Comment: Interpretive Data Reference Interval Normal ?>/= 90 mL/min/1.73m2 Mildly decreased* ? 60 - 89 mL/min/1.73m2 Mildly to moderately decreased ?45 - 59 mL/min/1.73m2 Moderately to severely decreased ??30 - 44 mL/min/1.73m2 Severely decreased ?15 - 29 mL/min/1.73m2 Kidney Failure ?< 15 ??mL/min/1.73m2 *Relative to young adult level Estimated glomerular filtration rate is determined by the 2020 CKD-EPI equation recommended by the National Kid[employer] (A Unifying Approach to GFR Estimation: Recommendations of the NKF-ASK Task Force on Reassessing the Inclusion of Race in Diagnosing Kidney Disease, JASN 2020). The CKD-EPI equation should not be used for patients with unstable renal function and has not been validated in children and those over 70. Current interpretive data was last reviewed 2021. Blood 03/30/2024 9:54 AM CDT 03/30/2024 9:57 AM CDT us Ernie Baldwin MD LAB BLOOD ORDERABLES Final Res ult [facility] [id number] Department [place] [address] * (ABNORMAL) Protime-INR (03/30/2024 9:54 AM CDT) PT 38.7(H) 9.7 - 13.0 sec INR 3.49(H) 0.90 - 1.20 [facility] Comment: Interpretive data Oral anticoagulant therapeutic ranges: Venous thromboembolism prophylaxis or treatment: 2.0-3.0 CARDIOLOGY Standard range: 2.0-3.0 High-intensity range: 2.5-3.5 Refer to indication-specific guidelines for appropriate target ranges for prosthetic heart valve replacement. Current interpretive data was last revised on 2019. Blood 03/30/2024 9:54 AM CDT 03/30/2024 9:57 AM CDT us Christo Cota NP LAB BLOOD ORDERABLES Final Result [facility] [id number] Department [place] [address] * (ABNORMAL) Basic metabolic panel (03/30/2024 9:54 AM CDT) Sodium 138 135 - 145 mmol/L Potassium, pl 4.0 3.3 - 4.9 mmol/L [facility] Chloride 102 97 - 110 mmol/L [facility] CO2 24 22 - 32 mmol/L [facility] Anion gap 12 2 - 15 mmol/L [facility] BUN 24 6 - 25 mg/dL [facility] Creatinine 0.67(L) 0.80 - 1.30 mg/dL [facility] Comment:Icteric sample, test results may be affected. Glucose 187 70 - 199 mg/dL [facility] Comment: Interpretive Data Fasting glucose >/= 126 mg/dl is diagnostic for diabetes. ?? Fasting is defined as no caloric intake for at least 8 hours. Fasting glucose between 100 mg/dl to 125 mg/dl is diagnostic of prediabetes. In a patient with classic symptoms of hyperglycemia or hyperglycemic crisis, a random glucose >/= 200 mg/dl is diagnostic for diabetes. In the absence of unequivocal hyperglycemia, results should be confirmed by repeat testing. The classification and Diagnosis of Diabetes Diabetes Care 2022; 46: S19-S40. Current interpretive data was last revised 2022. Calcium 9.1 8.5 - 10.3 mg/dL [facility] Blood 03/30/2024 9:54 AM CDT 03/30/2024 9:57 AM CDT Ernie Baldwin MD LAB BLOOD ORDERABLES Final Res ult Performing Organization Address City/[facility]/ZIP Co de Phone Number [facility] [address] [phone] [address] [place] [address] * POCT glucose (03/30/2024 7:38 AM CDT) Glucose, POC 122 70 - 199 mg/dL Blood 03/30/2024 7:38 AM CDT 03/30/2024 7:38 AM CDT Ernie Baldwin MD LAB POCT ORDERABLES - DEVICE F inal Result Performing Organization Address [facility] Co de Phone Number [facility] [address] [address] [place] [address] * XR Chest 1 View (03/30/2024 4:12 AM CDT) Anatomical Region Laterality Modality Body, Chest N/A Computed Radiogr aphy 03/30/2024 8:50 AM CDT Impressions 03/30/2024 8:50 AM CDT Right effusion with right lower lobe compressive atelectasis. Electronically signed by: Hamzah Mackey M.D. Narrative 03/30/2024 8:50 AM CDT EXAMINATION: XR CHEST 1 VIEW HISTORY: The patient is a 58-year-old male who has had aortic valve replacement. ??Comparison made with the previous study dated 03/29/2024. TECHNIQUE: AP portable view of the chest. FINDINGS: Small right effusion with right lower lobe compressive atelectasis, slightly improved from the last exam. ??The remaining lungs are clear. Heart not enlarged. ??No failure. Procedure Note Hamzah Mackey MD - 03/30/2024 EXAMINATION: XR CHEST 1 VIEW HISTORY: The patient is a 58-year-old male who has had aortic valve replacement. Comparison made with the previous study dated 03/29/2024. TECHNIQUE: AP portable view of the chest. FINDINGS: Small right effusion with right lower lobe compressive atelectasis, slightly improved from the last exam. The remaining lungs are clear. Heart not enlarged. No failure. IMPRESSION: Right effusion with right lower lobe compressive atelectasis. Electronically signed by: Hamzah Mcakey M.D. 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 IMG XR PROCEDURES Final Re sult * POCT glucose (03/30/2024 12:46 AM CDT) Glucose, POC 105 70 - 199 mg/dL Blood 03/30/2024 12:4 6 AM CDT 03/30/2024 12:46 AM CDT Ernie Baldwin MD LAB POCT ORDERABLES - DEVICE F inal Result Performing Organization Address [facility] de Phone Number [facility] [id number] [place] [address] * POCT glucose (03/29/2024 8:50 PM CDT) Glucose, POC 139 70 - 199 mg/dL Blood 03/29/2024 8:50 PM CDT 03/29/2024 8:50 PM CDT Ernie Baldwin MD LAB POCT ORDERABLES - DEVICE F inal Result Performing Organization Address [facility] de Phone Number [facility] [address] [address] [place] [employer] [place] [address] * POCT glucose (03/29/2024 4:37 PM CDT) Glucose, POC 120 70 - 199 mg/dL Blood 03/29/2024 4:37 PM CDT 03/29/2024 4:37 PM CDT Ernie Baldwin MD LAB POCT ORDERABLES - DEVICE F inal Result Performing Organization Address [facility] Co de Phone Number [facility] [address] [address] [employer] [place] [phone] * POCT glucose (03/29/2024 1:03 PM CDT) Glucose, POC 151 70 - 199 mg/dL Blood 03/29/2024 1:03 PM CDT 03/29/2024 1:03 PM CDT us Ernie Baldwin MD LAB POCT ORDERABLES - DEVICE F inal Result Performing Organization Address [facility] de Phone Number [facility] [address] [place] [employer] [place] [address] * TRANSTHORACIC ECHO (TTE) COMPLETE W DOPPLER/CF WO CONTRAST (03/29/2024 10:30 AM CDT) Anatomical Region Laterality Modality Ultrasound 03/29/2024 8:35 AM CDT Narrative 03/29/2024 3:21 [place] [address] Echocardiogram Report Patient Name: STEPHAN MADDEN A : 1965 Study Date: 03/29/2024 8:35:42 AM Gender: M [facility]: Location: [place] [address] Ref Provider: CHRISTO COTA ?Height(Cm): 183 BSA: 1.98 Weight(Kg): 77 Heart Rate: 86 Quality: Good Order Provider: CHRISTO COTA PROCEDURES: Echocardiographic Report: Transthoracic echocardiogram with complete 2D, M-Mode, and color Doppler examination. INDICATIONS: Postop AVR. Measurements: 2D/M Mode ? Doppler Measurement ?Value ?Normal Range ? Measurement ?Value ?Normal Range EF Teich 2D ?66.7 ? [ 52.0 - 72.0 ] percent ?BEVERLY Vmax ? 2.44 ? cm2 EF Mod 4C ?67.3 ? percent ?AV Mean PG ? 25 ? mmHg LVIDd 2D ? 5.01 ? [ 4.20 - 5.80 ] cm ? AV Peak Tesfaye ?3.20 ? [ 1.00 - 1.70 ] m/s LVIDs 2D ? 3.15 ? [ 2.50 - 4.00 ] cm ? AV VTI ? 54.62 ?cm LVPWd 2D ? 1.15 ? [ 0.60 - 1.00 ] cm ? LVOT Diam ?2.42 ? cm IVSd 2D ?1.07 ? [ 0.60 - 1.00 ] cm ? LVOT Peak Tesfaye ?1.70 ? [ 0.70 - 1.10 ] m/s LA Dimension MM ?2.80 ? [ 3.00 - 4.00 ] cm ? LVOT VTI ? 30.64 ?cm AoR Diam MM ?3.13 ? [ 3.10 - 3.70 ] cm ? MV E Peak Tesfaye ?1.23 ? [ 0.60 - 1.30 ] m/s LA Volume Index ?39.37 ?[ 16.00 - 34.00 ] cc/m2 ?MV A Peak Tesfaye ?1.39 ? [ 1.00 - 1.20 ] m/s MV Mean PG ? 3 ?mmHg MV PHT ? 62 ? [ 20 - 100 ] msec MVA PHT ?3.57 ? cm2 MV Decel Time ?291 ?[ 104 - 258 ] msec PV Peak Tesfaye ?1.64 ? [ 0.40 - 0.80 ] m/s TR Peak Tesfaye ?2.57 ? [ 1.00 - 2.80 ] m/s TR Peak PG ? 26 ? mmHg E` ? 10.00 ?m/s Measurement ?Value ?Normal Range ? Measurement ?Value ?Normal Range 2D/M Mode ? Doppler - FINDINGS: Atrial Septum: Normal atrial septum. Left Ventricle: Normal left ventricular size. Normal left ventricular systolic function with no focal wall motion abnormalities. Mild concentric left ventricular hypertrophy. Ejection fraction is measured at 67 %. Left Atrium: The left atrium is normal in size. Right Ventricle: Normal right ventricular size. Normal right ventricular systolic function. Right Atrium: The right atrium is normal in size. Aortic Valve: Peak velocity AOV of 3.2 m/sec. Peak gradient of 41.0 mmHg. Mean gradient of 25.0 mmHg. Valve area of 2.4 cm2. Gradients abnormal for valve type and size. Mitral Valve: Normal structure of the mitral valve. Pulmonic Valve: Normal structure of the pulmonic valve. Tricuspid Valve: Normal right ventricular systolic pressure. Estimated peak RVSP is 35 mmHg. Mild tricuspid regurgitation. Pericardium: Normal pericardium with no significant pericardial effusion. Aorta: Normal aortic root. IVC: Normal size and normal respiratory collapse consistent with normal right atrial pressure (<5 mmHg). Pulmonary Artery: Normal pulmonary artery size. CONCLUSIONS: Normal left ventricular size. Normal left ventricular systolic function with no focal wall motion abnormalities. Mild concentric left ventricular hypertrophy. Ejection fraction is measured at 67 %. Gradients abnormal for valve type and size ( 23 mm On-X mechanical valbve) Peak velocity AOV of 3.2 m/sec. Peak gradient of 41.0 mmHg. Mean gradient of 25.0 mmHg. Valve area of 2.4 cm2. Velocity probably high due to increased cardiac output. Normal right ventricular systolic pressure. Estimated peak RVSP is 35 mmHg. Mild tricuspid regurgitation. Normal pericardium with no significant pericardial effusion. Electronically Signed By: West Ruvalcaba MD 2024-03-29 15:21:12 CDT Procedure Note West Ruvalcaba MD - 03/29/2024 [place] [address] Echocardiogram Report Patient Name: STEPHAN MADDEN A : 1965 Study Date: 03/29/2024 8:35:42 AM Gender: M Tech: Location: [place] [address] Ref Provider: CHRISTO COTA Height(Cm): 183 BSA: 1.98 Weight(Kg): 77 Heart Rate: 86 Quality: Good Order Provider: CHRISTO COTA PROCEDURES: Echocardiographic Report: Transthoracic echocardiogram with complete 2D, M-Mode, and color Dopplerexamination. INDICATIONS: Postop AVR. Measurements: 2D/M ModeDoppler Measurement Value Normal Range MeasurementValue Normal Range EF Teich 2D 66.7 [ 52.0 - 72.0 ] percent BEVERLY Vmax2.44 cm2 EF Mod 4C 67.3 percent AV Mean PG25 mmHg LVIDd 2D 5.01 [ 4.20 - 5.80 ] cm AV Peak Vel3.20 [ 1.00 - 1.70 ] m/s LVIDs 2D 3.15 [ 2.50 - 4.00 ] cm AV VTI54.62 cm LVPWd 2D 1.15 [ 0.60 - 1.00 ] cm LVOT Diam2.42 cm IVSd 2D 1.07 [ 0.60 - 1.00 ] cm LVOT PeakVel 1.70 [ 0.70 - 1.10 ] m/s LA Dimension MM 2.80 [ 3.00 - 4.00 ] cm LVOT VTI30.64 cm AoR Diam MM 3.13 [ 3.10 - 3.70 ] cm MV E PeakVel 1.23 [ 0.60 - 1.30 ] m/s LA Volume Index 39.37 [ 16.00 - 34.00 ] cc/m2 MV A PeakVel 1.39 [ 1.00 - 1.20 ] m/s MV Mean PG 3 mmHg MV PHT 62 [ 20 - 100 ] msec MVA PHT 3.57 cm2 MV Decel Time 291 [ 104 - 258 ] msec PV Peak Tesfaye 1.64 [ 0.40 - 0.80 ] m/s TR Peak Tesfaye 2.57 [ 1.00 - 2.80 ] m/s TR Peak PG 26 mmHg E` 10.00 m/s Measurement Value Normal Range MeasurementValue Normal Range 2D/M ModeDoppler - FINDINGS: Atrial Septum: Normal atrial septum. Left Ventricle: Normal left ventricular size. Normal left ventricular systolic functionwith no focal wall motion abnormalities. Mild concentric left ventricular hypertrophy.Ejection fraction is measured at 67 %. Left Atrium: The left atrium is normal in size. Right Ventricle: Normal right ventricular size. Normal right ventricular systolicfunction. Right Atrium: The right atrium is normal in size. Aortic Valve: Peak velocity AOV of 3.2 m/sec. Peak gradient of 41.0 mmHg. Mean gradientof 25.0 mmHg. Valve area of 2.4 cm2. Gradients abnormal for valve type and size. Mitral Valve: Normal structure of the mitral valve. Pulmonic Valve: Normal structure of the pulmonic valve. Tricuspid Valve: Normal right ventricular systolic pressure. Estimated peak RVSP is 35mmHg. Mild tricuspid regurgitation. Pericardium: Normal pericardium with no significant pericardial effusion. Aorta: Normal aortic root. IVC: Normal size and normal respiratory collapse consistent with normal rightatrial pressure (<5 mmHg). Pulmonary Artery: Normal pulmonary artery size. CONCLUSIONS: Normal left ventricular size. Normal left ventricular systolic functionwith no focal wall motion abnormalities. Mild concentric left ventricular hypertrophy.Ejection fraction is measured at 67 %. Gradients abnormal for valve type and size ( 23 mm On-X mechanical valbve)Peak velocity AOV of 3.2 m/sec. Peak gradient of 41.0 mmHg. Mean gradient of 25.0 mmHg.Valve area of 2.4 cm2. Velocity probably high due to increased cardiac output. Normal right ventricular systolic pressure. Estimated peak RVSP is 35mmHg. Mild tricuspid regurgitation. Normal pericardium with no significant pericardial effusion. Electronically Signed By: West Ruvalcaba MD 2024-03-29 15:21:12 CDT Christo Cota NP CV ECHO PROCEDURES Final R esult * (ABNORMAL) Protime-INR (03/29/2024 8:48 AM CDT) Pathologist [facility] PT 18.1(H) 9.7 - 13.0 sec INR 1.66(H) 0.90 - 1.20 [facility] STODD[facility] Comment: Interpretive data Oral anticoagulant therapeutic ranges: Venous thromboembolism prophylaxis or treatment: 2.0-3.0 CARDIOLOGY Standard range: 2.0-3.0 High-intensity range: 2.5-3.5 Refer to indication-specific guidelines for appropriate target ranges for prosthetic heart valve replacement. Current interpretive data was last revised on 2019. Blood 03/29/2024 8:48 AM CDT 03/29/2024 9:04 AM CDT Christo Cota NP LAB BLOOD ORDERABLES Final Result ORI [address] Department [place] [address] * eGFR (03/29/2024 5:40 AM CDT) Pathologist [facility] eGFR >90 >=60 mL/min/1. 73 m2 Comment: Interpretive Data Reference Interval Normal ?>/= 90 mL/min/1.73m2 Mildly decreased* ? 60 - 89 mL/min/1.73m2 Mildly to moderately decreased ?45 - 59 mL/min/1.73m2 Moderately to severely decreased ??30 - 44 mL/min/1.73m2 Severely decreased ?15 - 29 mL/min/1.73m2 Kidney Failure ?< 15 ??mL/min/1.73m2 *Relative to young adult level Estimated glomerular filtration rate is determined by the 2020 CKD-EPI equation recommended by the National Kidney Foundation (A Unifying Approach to GFR Estimation: Recommendations of the NKF-ASK Task Force on Reassessing the Inclusion of Race in Diagnosing Kidney Disease, JASN 2020). The CKD-EPI equation should not be used for patients with unstable renal function and has not been validated in children and those over 70. Current interpretive data was last reviewed 2021. Blood 03/29/2024 5:40 AM CDT 03/29/2024 6:07 AM CDT Ernie Baldwin MD LAB BLOOD ORDERABLES Final Res ult Performing Organization Address [facility] Co de Phone Number ORI STODDARD [address] [place] [address] * (ABNORMAL) aPTT (03/29/2024 5:40 AM CDT) aPTT 74(H) 28 - 38 sec Comment: Interpretive Data Heparin therapeutic range: 66.0 - 100.0 seconds. Range based on correlation with therapeutic heparin activity range of 0.3 - 0.7 Units/mL. Current interpretive data was last revised on 2023. Blood 03/29/2024 5:40 AM CDT 03/29/2024 6:07 AM CDT Ernie Baldwin MD LAB BLOOD ORDERABLES Final Res ult Performing Organization Address [facility] Co de Phone Number ORI STODDARD [address] [place], [place] [phone] * (ABNORMAL) Basic metabolic panel (03/29/2024 5:40 AM CDT) Sodium 137 135 - 145 mmol/L Potassium, pl 3.3 3.3 - 4.9 mmol/L [facility] Chloride 100 97 - 110 mmol/L [facility] CO2 25 22 - 32 mmol/L [facility] Anion gap 12 2 - 15 mmol/L [facility] BUN 26(H) 6 - 25 mg/dL [facility] Creatinine 0.73(L) 0.80 - 1.30 mg/dL [facility] Comment:Icteric sample, test results may be affected. Glucose 116 70 - 199 mg/dL [facility] Comment: Interpretive Data Fasting glucose >/= 126 mg/dl is diagnostic for diabetes. ?? Fasting is defined as no caloric intake for at least 8 hours. Fasting glucose between 100 mg/dl to 125 mg/dl is diagnostic of prediabetes. In a patient with classic symptoms of hyperglycemia or hyperglycemic crisis, a random glucose >/= 200 mg/dl is diagnostic for diabetes. In the absence of unequivocal hyperglycemia, results should be confirmed by repeat testing. The classification and Diagnosis of Diabetes Diabetes Care 2021; 46: S19-S40. Current interpretive data was last revised 2022. Calcium 9.0 8.5 - 10.3 mg/dL [facility] Blood 03/29/2024 5:40 AM CDT 03/29/2024 6:07 AM CDT Ernie Baldwin MD LAB BLOOD ORDERABLES Final Res ult [facility] [id number] Department [place] [address] * (ABNORMAL) CBC without differential (03/29/2024 5:40 AM CDT) WBC 11.8(H) 3.8 - 9.9 K/cumm Hgb 8.6(L) 13.0 - 17.5 g/dL [facility] Hct 26.1(L) 38.9 - 50.3 % [facility] Plt 192 150 - 400 K/cumm [facility] MPV 9.9 9.1 - 12.3 fL [facility] RBC 2.84(L) 4.30 - 5.80 M/cumm [facility] MCV 91.9 81.3 - 96.4 fL [facility] MCH 30.3 27.1 - 33.3 pg [facility] MCHC 33.0 32.3 - 35.7 g/dL [facility] RDW CV 14.4 11.1 - 14.9 % [facility] RDW SD 47.6 35.7 - 48.1 fL [facility] NRBC abs 0.00 0.00 - 0.01 K/cumm [facility] Blood 03/29/2024 5:40 AM CDT 03/29/2024 6:07 AM CDT Ernie Baldwin MD LAB BLOOD ORDERABLES Final Res ult ORI [address] [facility] [place] [address] * XR Chest 1 View (03/29/2024 4:21 AM CDT) Anatomical Region Laterality Modality Body, Chest N/A Computed Radiogr aphy 03/29/2024 9:24 AM CDT Impressions 03/29/2024 9:24 AM CDT No change since the last study. Electronically signed by: Hamzah Mackey M.D. Narrative 03/29/2024 9:24 AM CDT EXAMINATION: XR CHEST 1 VIEW HISTORY: The patient is a 58-year-old male who has aortic valve replacement. Comparison made with the previous study dated 03/28/2024. TECHNIQUE: AP portable view of the chest. FINDINGS: Right lower lobe consolidation is unchanged. ??The remaining lungs are clear. ??Cardiovascular structures unremarkable. ??No failure. Procedure Note Hamzah Mackey MD - 03/29/2024 EXAMINATION: XR CHEST 1 VIEW HISTORY: The patient is a 58-year-old male who has aortic valve replacement. Comparison made with the previous study dated 03/28/2024. TECHNIQUE: AP portable view of the chest. FINDINGS: Right lower lobe consolidation is unchanged. The remaining lungs are clear. Cardiovascular structures unremarkable. No failure. IMPRESSION: No change since the last study. Electronically signed by: Hamzah Mackey M.D. us 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 IMG XR PROCEDURES Final Re sult * POCT glucose (03/29/2024 1:39 AM CDT) Glucose, POC 123 70 - 199 mg/dL Blood 03/29/2024 1:39 AM CDT 03/29/2024 1:39 AM CDT Ernie Baldwin MD LAB POCT ORDERABLES - DEVICE F inal Result Performing Organization Address [facility] Co de Phone Number ORI STODDARD [phone] [facility] [place] [employer] [place] [address] * (ABNORMAL) aPTT (03/29/2024 12:28 AM CDT) aPTT 70(H) 28 - 38 sec Comment: Interpretive Data Heparin therapeutic range: 66.0 - 100.0 seconds. Range based on correlation with therapeutic heparin activity range of 0.3 - 0.7 Units/mL. Current interpretive data was last revised on 2023. Blood 03/29/2024 12:2 8 AM CDT 03/29/2024 1:07 AM CDT Ernie Baldwin MD LAB BLOOD ORDERABLES Final Res ult Performing Organization Address [facility] Co de Phone Number ORI [address] [facility] [place] [employer] [place] [address] * (ABNORMAL) aPTT (03/28/2024 10:04 PM CDT) aPTT >150(C) 28 - 38 sec Comment: alert value called to and read back by Ayad Rowe on 03/28/2024 23:20:38 CDT by Princess Hassan Interpretive Data Heparin therapeutic range: 66.0 - 100.0 seconds. Range based on correlation with therapeutic heparin activity range of 0.3 - 0.7 Units/mL. Current interpretive data was last revised on 2023. Blood 03/28/2024 10:0 4 PM CDT 03/28/2024 10:34 PM CDT Ernie Baldwin MD LAB BLOOD ORDERABLES Final Res ult Performing Organization Address [facility] Co de Phone Number ORI STODDARD [phone] [facility] [employer] [place], [place] [phone] * POCT glucose (03/28/2024 8:19 PM CDT) Glucose, POC 175 70 - 199 mg/dL Blood 03/28/2024 8:19 PM CDT 03/28/2024 8:19 PM CDT Ernie Baldwin MD LAB POCT ORDERABLES - DEVICE F inal Result Performing Organization Address [facility] de Phone Number ORI STODDARD [phone] [facility] [employer] [place], [place] [phone] * POCT glucose (03/28/2024 5:49 PM CDT) Glucose, POC 133 70 - 199 mg/dL Blood 03/28/2024 5:49 PM CDT 03/28/2024 5:49 PM CDT Ernie Baldwin MD LAB POCT ORDERABLES - DEVICE F inal Result Performing Organization Address [facility] de Phone Number ORI STODDARD [phone] [facility] [employer] [place], [place] [id number] * (ABNORMAL) aPTT (03/28/2024 1:53 PM CDT) aPTT 49(H) 28 - 38 sec Comment: Interpretive Data Heparin therapeutic range: 66.0 - 100.0 seconds. Range based on correlation with therapeutic heparin activity range of 0.3 - 0.7 Units/mL. Current interpretive data was last revised on 2023. Blood 03/28/2024 1:53 PM CDT 03/28/2024 1:56 PM CDT Ernie Baldwin MD LAB BLOOD ORDERABLES Final Res ult Performing Organization Address [facility] [place] [address] [address] [facility] [place] [address] * POCT glucose (03/28/2024 11:58 AM CDT) Glucose, POC 141 70 - 199 mg/dL Blood 03/28/2024 11:5 8 AM CDT 03/28/2024 11:58 AM CDT Ernie Baldwin MD LAB POCT ORDERABLES - DEVICE F inal Result Performing Organization Address [facility] Co de Phone Number ORI STODDARD [phone] [facility] [place] [address] * XR Chest 1 View (03/28/2024 9:09 AM CDT) Anatomical Region Laterality Modality Body, Chest N/A Computed Radiogr aphy 03/28/2024 9:27 AM CDT Impressions 03/28/2024 9:27 AM CDT Right lower lobe collapse-consolidation. Electronically signed by: Hamzah Mackey M.D. Narrative 03/28/2024 9:27 AM CDT EXAMINATION: XR CHEST 1 VIEW HISTORY: The patient is a 58-year-old male who has had aortic valve replacement. ??Comparison made with the previous study dated 03/27/2024. TECHNIQUE: AP portable view of the chest. FINDINGS: Heart not enlarged. ??Aortic atherosclerosis. ??No failure. ??Right lower lobe collapse-consolidation with obscuration of the right hemidiaphragm. ??The remainder of the lungs are clear. ??The tip of a retracted Overgaard-Stevie catheter is in the superior vena cava. Procedure Note Hamzah Mackey MD - 03/28/2024 EXAMINATION: XR CHEST 1 VIEW HISTORY: The patient is a 58-year-old male who has had aortic valve replacement. Comparison made with the previous study dated 03/27/2024. TECHNIQUE: AP portable view of the chest. FINDINGS: Heart not enlarged. Aortic atherosclerosis. No failure. Right lower lobe collapse-consolidation with obscuration of the right hemidiaphragm. The remainder of the lungs are clear. The tip of a retracted Overgaard-Stevie catheter is in the superior vena cava. IMPRESSION: Right lower lobe collapse-consolidation. Electronically signed by: Hamzah Mackey M.D. us 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 IMG XR PROCEDURES Final Re sult * eGFR (03/28/2024 6:30 AM CDT) eGFR >90 >=60 mL/min/1. 73 m2 Comment: Interpretive Data Reference Interval Normal ?>/= 90 mL/min/1.73m2 Mildly decreased* ? 60 - 89 mL/min/1.73m2 Mildly to moderately decreased ?45 - 59 mL/min/1.73m2 Moderately to severely decreased ??30 - 44 mL/min/1.73m2 Severely decreased ?15 - 29 mL/min/1.73m2 Kidney Failure ?< 15 ??mL/min/1.73m2 *Relative to young adult level Estimated glomerular filtration rate is determined by the 2020 CKD-EPI equation recommended by the National Kidney Foundation (A Unifying Approach to GFR Estimation: Recommendations of the NKF-ASK Task Force on Reassessing the Inclusion of Race in Diagnosing Kidney Disease, JASN 2020). The CKD-EPI equation should not be used for patients with unstable renal function and has not been validated in children and those over 70. Current interpretive data was last reviewed 2021. Blood 03/28/2024 6:30 AM CDT 03/28/2024 6:46 AM CDT us Ernie Baldwin MD LAB BLOOD ORDERABLES Final Res ult Performing Organization Address City/State/ZIP Co mn Phone Number ORI [address] Department [place] [address] * (ABNORMAL) aPTT (03/28/2024 6:30 AM CDT) aPTT 56(H) 28 - 38 sec Comment: Interpretive Data Heparin therapeutic range: 66.0 - 100.0 seconds. Range based on correlation with therapeutic heparin activity range of 0.3 - 0.7 Units/mL. Current interpretive data was last revised on 2023. Blood 03/28/2024 6:30 AM CDT 03/28/2024 6:42 AM CDT Ernie Baldwin MD LAB BLOOD ORDERABLES Final Res ult Performing Organization Address [facility] Co de Phone Number ORI STODDARD [address] [facility] [place] [address] * Protime-INR (03/28/2024 6:30 AM CDT) PT 11.9 9.7 - 13.0 sec INR 1.10 0.90 - 1.20 ORI Comment: Interpretive data Oral anticoagulant therapeutic ranges: Venous thromboembolism prophylaxis or treatment: 2.0-3.0 CARDIOLOGY Standard range: 2.0-3.0 High-intensity range: 2.5-3.5 Refer to indication-specific guidelines for appropriate target ranges for prosthetic heart valve replacement. Current interpretive data was last revised on 2019. Blood 03/28/2024 6:30 AM CDT 03/28/2024 6:42 AM CDT Ernie Baldwin MD LAB BLOOD ORDERABLES Final Res ult Performing Organization Address City/[facility]/ZIP Co de Phone Number ORI RICHI [phone] [facility] [place] [address] * (ABNORMAL) Basic metabolic panel (03/28/2024 6:30 AM CDT) Sodium 137 135 - 145 mmol/L Potassium, pl 3.4 3.3 - 4.9 mmol/L [facility] Chloride 99 97 - 110 mmol/L [facility] CO2 27 22 - 32 mmol/L [facility] Anion gap 11 2 - 15 mmol/L [facility] BUN 25 6 - 25 mg/dL [facility] Creatinine 0.75(L) 0.80 - 1.30 mg/dL [facility] Comment:Icteric sample, test results may be affected. Glucose 119 70 - 199 mg/dL [facility] Comment: Interpretive Data Fasting glucose >/= 126 mg/dl is diagnostic for diabetes. ?? Fasting is defined as no caloric intake for at least 8 hours. Fasting glucose between 100 mg/dl to 125 mg/dl is diagnostic of prediabetes. In a patient with classic symptoms of hyperglycemia or hyperglycemic crisis, a random glucose >/= 200 mg/dl is diagnostic for diabetes. In the absence of unequivocal hyperglycemia, results should be confirmed by repeat testing. The classification and Diagnosis of Diabetes Diabetes Care 2021; 46: S19-S40. Current interpretive data was last revised 2022. Calcium 9.0 8.5 - 10.3 mg/dL [facility] Blood 03/28/2024 6:30 AM CDT 03/28/2024 6:42 AM CDT us Ernie Baldwin MD LAB BLOOD ORDERABLES Final Res ult ORI [address] [facility] [place] [address] * (ABNORMAL) CBC without differential (03/28/2024 6:30 AM CDT) WBC 11.8(H) 3.8 - 9.9 K/cumm Hgb 8.1(L) 13.0 - 17.5 g/dL [facility] Hct 24.4(L) 38.9 - 50.3 % [facility] Plt 169 150 - 400 K/cumm [facility] MPV 10.1 9.1 - 12.3 fL [facility] RBC 2.70(L) 4.30 - 5.80 M/cumm [facility] MCV 90.4 81.3 - 96.4 fL [facility] MCH 30.0 27.1 - 33.3 pg [facility] MCHC 33.2 32.3 - 35.7 g/dL [facility] RDW CV 14.3 11.1 - 14.9 % [facility] RDW SD 45.7 35.7 - 48.1 fL [facility] NRBC abs 0.00 0.00 - 0.01 K/cumm [facility] Blood 03/28/2024 6:30 AM CDT 03/28/2024 6:42 AM CDT Ernie Baldwin MD LAB BLOOD ORDERABLES Final Res ult Performing Organization Address [facility] Co de Phone Number ORI STODDARD [address] [place] [address] * POCT glucose (03/28/2024 1:27 AM CDT) Glucose, POC 137 70 - 199 mg/dL Blood 03/28/2024 1:27 AM CDT 03/28/2024 1:27 AM CDT Ernie Baldwin MD LAB POCT ORDERABLES - DEVICE F inal Result Performing Organization Address [facility] Co de Phone Number BANDARRIO STODDARD [address] [place] [address] * aPTT (03/27/2024 9:37 PM CDT) aPTT 32 28 - 38 sec Comment: Interpretive Data Heparin therapeutic range: 66.0 - 100.0 seconds. Range based on correlation with therapeutic heparin activity range of 0.3 - 0.7 Units/mL. Current interpretive data was last revised on 2023. Blood 03/27/2024 9:37 PM CDT 03/27/2024 9:48 PM CDT Ernie Baldwin MD LAB BLOOD ORDERABLES Final Res ult Performing Organization Address [facility] Co de Phone Number ORI STODDARD [phone] [facility] [place] [address] * Protime-INR (03/27/2024 9:37 PM CDT) PT 11.3 9.7 - 13.0 sec INR 1.05 0.90 - 1.20 [facility]I STODDARD Comment: Interpretive data Oral anticoagulant therapeutic ranges: Venous thromboembolism prophylaxis or treatment: 2.0-3.0 CARDIOLOGY Standard range: 2.0-3.0 High-intensity range: 2.5-3.5 Refer to indication-specific guidelines for appropriate target ranges for prosthetic heart valve replacement. Current interpretive data was last revised on 2019. Blood 03/27/2024 9:37 PM CDT 03/27/2024 9:47 PM CDT Narrative ORI STODDARD - 03/27/2024 10:13 PM CDT While on warfarin Ernie Baldwin MD LAB BLOOD ORDERABLES Final Res ult Performing Organization Address [facility]/ZIP Co de Phone Number ORI [address] [place] [address] * POCT glucose (03/27/2024 8:47 PM CDT) Pathologist [facility] Glucose, POC 122 70 - 199 mg/dL Blood 03/27/2024 8:47 PM CDT 03/27/2024 8:47 PM CDT Ernie Baldwin MD LAB POCT ORDERABLES - DEVICE F inal Result Performing Organization Address City/[facility]/ZIP Co de Phone Number BANDARRIO [address] [facility] [place] [address] * POCT glucose (03/27/2024 4:54 PM CDT) Pathologist [facility] Glucose, POC 144 70 - 199 mg/dL Blood 03/27/2024 4:54 PM CDT 03/27/2024 4:54 PM CDT us Ernie Baldwin MD LAB POCT ORDERABLES - DEVICE F inal Result Performing Organization Address [facility] Co de Phone Number ORI STODDARD [address] [employer] [place], [place] [phone] * eGFR (03/27/2024 2:23 PM CDT) eGFR >90 >=60 mL/min/1. 73 m2 Comment: Interpretive Data Reference Interval Normal ?>/= 90 mL/min/1.73m2 Mildly decreased* ? 60 - 89 mL/min/1.73m2 Mildly to moderately decreased ?45 - 59 mL/min/1.73m2 Moderately to severely decreased ??30 - 44 mL/min/1.73m2 Severely decreased ?15 - 29 mL/min/1.73m2 Kidney Failure ?< 15 ??mL/min/1.73m2 *Relative to young adult level Estimated glomerular filtration rate is determined by the 2020 CKD-EPI equation recommended by the National Kidney Foundation (A Unifying Approach to GFR Estimation: Recommendations of the NKF-ASK Task Force on Reassessing the Inclusion of Race in Diagnosing Kidney Disease, JASN 2020). The CKD-EPI equation should not be used for patients with unstable renal function and has not been validated in children and those over 70. Current interpretive data was last reviewed 2021. Blood 03/27/2024 2:23 PM CDT 03/27/2024 2:36 PM CDT Ernie Baldwin MD LAB BLOOD ORDERABLES Final Res ult Performing Organization Address [facility] Co de Phone Number ORI STODDARD [address] Department [address] [place], [place] [id number] * Phosphorus (03/27/2024 2:23 PM CDT) [facility] Phosphorus, pl 3.8 2.3 - 4.5 mg/dL Blood 03/27/2024 2:23 PM CDT 03/27/2024 2:36 PM CDT Ernie Baldwin MD LAB BLOOD ORDERABLES Final Res ult ORI STODDARD [address] [place] [address] * (ABNORMAL) CBC without differential (03/27/2024 2:23 PM CDT) [facility] WBC 10.5(H) 3.8 - 9.9 K/cumm Hgb 8.1(L) 13.0 - 17.5 g/dL [facility] Hct 23.2(L) 38.9 - 50.3 % [facility] Plt 137(L) 150 - 400 K/cumm [facility] MPV 10.7 9.1 - 12.3 fL [facility] RBC 2.61(L) 4.30 - 5.80 M/cumm [facility] MCV 88.9 81.3 - 96.4 fL [facility] MCH 31.0 27.1 - 33.3 pg [facility] MCHC 34.9 32.3 - 35.7 g/dL [facility] RDW CV 14.2 11.1 - 14.9 % [facility] RDW SD 45.3 35.7 - 48.1 fL [facility] NRBC abs 0.00 0.00 - 0.01 K/cumm [facility] Blood 03/27/2024 2:23 PM CDT 03/27/2024 2:36 PM CDT Ernie Baldwin MD LAB BLOOD ORDERABLES Final Res ult ORI STODDARD [address] Department of [employer] [place], [place] [id number] * Magnesium (03/27/2024 2:23 PM CDT) Magnesium 1.7 1.4 - 2.5 mg/dL Blood 03/27/2024 2:23 PM CDT 03/27/2024 2:36 PM CDT Ernie Baldwin MD LAB BLOOD ORDERABLES Final Res ult ORI [address] [place] [address] * (ABNORMAL) Basic metabolic panel (03/27/2024 2:23 PM CDT) Sodium 139 135 - 145 mmol/L Potassium, pl 3.6 3.3 - 4.9 mmol/L [facility] Chloride 100 97 - 110 mmol/L [facility] CO2 26 22 - 32 mmol/L [facility] Anion gap 13 2 - 15 mmol/L [facility] BUN 25 6 - 25 mg/dL [facility] Creatinine 0.76(L) 0.80 - 1.30 mg/dL [facility] Comment:Icteric sample, test results may be affected. Glucose 115 70 - 199 mg/dL [facility] Comment: Interpretive Data Fasting glucose >/= 126 mg/dl is diagnostic for diabetes. ?? Fasting is defined as no caloric intake for at least 8 hours. Fasting glucose between 100 mg/dl to 125 mg/dl is diagnostic of prediabetes. In a patient with classic symptoms of hyperglycemia or hyperglycemic crisis, a random glucose >/= 200 mg/dl is diagnostic for diabetes. In the absence of unequivocal hyperglycemia, results should be confirmed by repeat testing. The classification and Diagnosis of Diabetes Diabetes Care 2021; 46: S19-S40. Current interpretive data was last revised 2022. Calcium 8.8 8.5 - 10.3 mg/dL [facility] Blood 03/27/2024 2:23 PM CDT 03/27/2024 2:36 PM CDT Ernie Baldwin MD LAB BLOOD ORDERABLES Final Res ult Performing Organization Address City/[facility]/ZIP Co de Phone Number [facility] [address] [facility] LMN-[address] [place] [address] * aPTT (03/27/2024 2:23 PM CDT) aPTT 38 28 - 38 sec Comment: Interpretive Data Heparin therapeutic range: 66.0 - 100.0 seconds. Range based on correlation with therapeutic heparin activity range of 0.3 - 0.7 Units/mL. Current interpretive data was last revised on 2023. Blood 03/27/2024 2:23 PM CDT 03/27/2024 2:36 PM CDT us Ernie Baldwin MD LAB [place]LOOD [place] [address] [address] [facility] [place] [address] * Critical Care (03/27/2024 12:14 PM CDT) Narrative Cr Cedillo DO - 03/27/2024 12:14 PM CDT Tam Arias NP ? 03/27/2024 12:16 PM Critical Care Performed by: Tam Arias NP Authorized by: Tam Arias NP ?? CRITICAL CARE: ??Team: ??CHNE ??Shift: ??AM ??Level of Billing: ??Subsequent Hospital Visit Level 3 ??My time spent with this patient was 20 minutes: Critical Provider Statement: I have seen and examined the patient on this day of service. I have reviewed and confirmed the history, physical exam, laboratory, and radiographic data as documented in the ICU note. I have reviewed and discussed my treatment plan with the patient's team and other medical/bridal stylist sales consultant staff. This time was in addition to and separate from care provided by other practitioners on this day of service. ?? us Tam Arias PIPE SMOKER MACHINE OPERATOR IN CLINIC/BEDSIDE ORD ERABLES Final Result * POCT glucose (03/27/2024 11:55 AM CDT) Glucose, POC 110 70 - 199 mg/dL Blood 03/27/2024 11:5 5 AM CDT 03/27/2024 11:55 AM CDT Ernie Baldwin MD LAB POCT ORDERABLES - DEVICE F inal Result ORI STODDARD [address] [place] [address] * XR Chest 1 Vw Portable (03/27/2024 8:09 AM CDT) Anatomical Region Laterality Modality Body, Chest N/A Computed Radiogr aphy 03/27/2024 8:30 AM CDT Impressions 03/27/2024 8:30 AM CDT FINDINGS/IMPRESSION: No significant change in right pleural effusion and consolidation in the right lower lobe. ??Left lung is clear. ??Cardiac mediastinal silhouette within normal limits. ??Poststernotomy changes noted. Appropriate position right IJ central venous catheter terminates in the superior cavoatrial junction. ??No acute osseous abnormality. Electronically signed by: Spencer Neff II, D.O. Narrative 03/27/2024 8:30 AM CDT EXAMINATION: XR CHEST 1 VIEW DATE: 03/27/2024 8:00 AM INDICATION: Pleural effusion. COMPARISON: 03/26/2024 Procedure Note Spencer Neff II, DO - 03/27/2024 EXAMINATION: XR CHEST 1 VIEW DATE: 03/27/2024 8:00 AM INDICATION: Pleural effusion. COMPARISON: 03/26/2024 IMPRESSION: FINDINGS/IMPRESSION: No significant change in right pleural effusion and consolidation in the right lower lobe. Left lung is clear. Cardiac mediastinal silhouette within normal limits. Poststernotomy changes noted. Appropriate position right IJ central venous catheter terminates in the superior cavoatrial junction. No acute osseous abnormality. Electronically signed by: Spencer Neff II, D.O. Ernie Baldwin MD IMG XR PROCEDURES Final Result * POCT glucose (03/27/2024 7:53 AM CDT) Glucose, POC 128 70 - 199 mg/dL Blood 03/27/2024 7:53 AM CDT 03/27/2024 7:53 AM CDT Result [facility] Ernie Baldwin MD LAB POCT ORDERABLES - DEVICE F inal Result Performing Organization Address [facility] de Phone Number [facility] [address] [facility] [place] [employer] [place] [address] * Protime-INR (03/27/2024 6:49 AM CDT) PT 11.8 9.7 - 13.0 sec INR 1.09 0.90 - 1.20 ORI STODDARD Comment: Interpretive data Oral anticoagulant therapeutic ranges: Venous thromboembolism prophylaxis or treatment: 2.0-3.0 CARDIOLOGY Standard range: 2.0-3.0 High-intensity range: 2.5-3.5 Refer to indication-specific guidelines for appropriate target ranges for prosthetic heart valve replacement. Current interpretive data was last revised on 2019. Blood 03/27/2024 6:49 AM CDT 03/27/2024 7:17 AM CDT Result [facility] Ernie Baldwin MD LAB BLOOD ORDERABLES Final Res ult Performing Organization Address [facility] de Phone Number [facility] [address] [facility] [place] [address] * (ABNORMAL) aPTT (03/27/2024 6:49 AM CDT) aPTT 44(H) 28 - 38 sec Comment: Interpretive Data Heparin therapeutic range: 66.0 - 100.0 seconds. Range based on correlation with therapeutic heparin activity range of 0.3 - 0.7 Units/mL. Current interpretive data was last revised on 2023. Blood 03/27/2024 6:49 AM CDT 03/27/2024 6:49 AM CDT Ernie Baldwin MD LAB BLOOD ORDERABLES Final Res ult Performing Organization Address [facility] Co de Phone Number ORI STODDARD [address] [place], [place] [id number] * eGFR (03/27/2024 2:13 AM CDT) [facility] eGFR >90 >=60 mL/min/1. 73 m2 Comment: Interpretive Data Reference Interval Normal ?>/= 90 mL/min/1.73m2 Mildly decreased* ? 60 - 89 mL/min/1.73m2 Mildly to moderately decreased ?45 - 59 mL/min/1.73m2 Moderately to severely decreased ??30 - 44 mL/min/1.73m2 Severely decreased ?15 - 29 mL/min/1.73m2 Kidney Failure ?< 15 ??mL/min/1.73m2 *Relative to young adult level Estimated glomerular filtration rate is determined by the 2020 CKD-EPI equation recommended by the National Kidney Foundation (A Unifying Approach to GFR Estimation: Recommendations of the NKF-ASK Task Force on Reassessing the Inclusion of Race in Diagnosing Kidney Disease, JASN 202). The CKD-EPI equation should not be used for patients with unstable renal function and has not been validated in children and those over 70. Current interpretive data was last reviewed 2021. Blood 03/27/2024 2:13 AM CDT 03/27/2024 2:27 AM CDT Ernie Baldwin MD LAB BLOOD ORDERABLES Final Res ult Performing Organization Address [facility] Co de Phone Number ORI STODDARD [address] Department [place] [address] * (ABNORMAL) Basic metabolic panel (03/27/2024 2:13 AM CDT) Sodium 137 135 - 145 mmol/L Potassium, pl 3.3 3.3 - 4.9 mmol/L [facility] Chloride 99 97 - 110 mmol/L [facility] CO2 26 22 - 32 mmol/L [facility] Anion gap 12 2 - 15 mmol/L [facility] BUN 25 6 - 25 mg/dL [facility] Creatinine 0.77(L) 0.80 - 1.30 mg/dL [facility] Comment:Icteric sample, test results may be affected. Glucose 128 70 - 199 mg/dL [facility] Comment: Interpretive Data Fasting glucose >/= 126 mg/dl is diagnostic for diabetes. ?? Fasting is defined as no caloric intake for at least 8 hours. Fasting glucose between 100 mg/dl to 125 mg/dl is diagnostic of prediabetes. In a patient with classic symptoms of hyperglycemia or hyperglycemic crisis, a random glucose >/= 200 mg/dl is diagnostic for diabetes. In the absence of unequivocal hyperglycemia, results should be confirmed by repeat testing. The classification and Diagnosis of Diabetes Diabetes Care 202; 46: S19-S40. Current interpretive data was last revised 2022. Calcium 8.7 8.5 - 10.3 mg/dL [facility] Blood 03/27/2024 2:13 AM CDT 03/27/2024 2:25 AM CDT us Ernie Baldwin MD LAB BLOOD ORDERABLES Final Res ult [facility] [address] Department [place] [address] * (ABNORMAL) CBC without differential (03/27/2024 2:13 AM CDT) Pathologist [facility] WBC 10.3(H) 3.8 - 9.9 K/cumm Hgb 7.8(L) 13.0 - 17.5 g/dL [facility] Hct 22.6(L) 38.9 - 50.3 % [facility] Plt 115(L) 150 - 400 K/cumm [facility] MPV 11.0 9.1 - 12.3 fL [facility] RBC 2.55(L) 4.30 - 5.80 M/cumm [facility] MCV 88.6 81.3 - 96.4 fL [facility] MCH 30.6 27.1 - 33.3 pg [facility] MCHC 34.5 32.3 - 35.7 g/dL [facility] RDW CV 14.1 11.1 - 14.9 % [facility] RDW SD 45.0 35.7 - 48.1 fL [facility] NRBC abs 0.00 0.00 - 0.01 K/cumm [facility] Blood 03/27/2024 2:13 AM CDT 03/27/2024 2:28 AM CDT Ernie Baldwin MD LAB BLOOD ORDERABLES Final Res ult Performing Organization Address City/[facility]/ZIP Co de Phone Number ORI STODDARD [address] Department [place] [address] * aPTT (03/27/2024 12:12 AM CDT) aPTT 33 28 - 38 sec Comment: Interpretive Data Heparin therapeutic range: 66.0 - 100.0 seconds. Range based on correlation with therapeutic heparin activity range of 0.3 - 0.7 Units/mL. Current interpretive data was last revised on 2023. Blood 03/27/2024 12:1 2 AM CDT 03/27/2024 12:14 AM CDT Marlo Rdz MD LAB BLOOD ORDERABLES Fin al Result ORI STODDARD [address] Department [place] [address] * POCT glucose (03/26/2024 8:28 PM CDT) Glucose, POC 171 70 - 199 mg/dL Blood 03/26/2024 8:28 PM CDT 03/26/2024 8:28 PM CDT Ernie Baldwin MD LAB POCT ORDERABLES - DEVICE F inal Result Performing Organization Address [facility] de Phone Number ORI STODDARD [address] [facility] [place] [address] * aPTT (03/26/2024 5:32 PM CDT) aPTT 30 28 - 38 sec Comment: Interpretive Data Heparin therapeutic range: 66.0 - 100.0 seconds. Range based on correlation with therapeutic heparin activity range of 0.3 - 0.7 Units/mL. Current interpretive data was last revised on 2023. Blood 03/26/2024 5:32 PM CDT 03/26/2024 5:41 PM CDT Marlo Rdz MD LAB BLOOD ORDERABLES Fin al Result Performing Organization Address [facility] de Phone Number ORI [address] [facility] [place] [address] * POCT glucose (03/26/2024 4:54 PM CDT) Glucose, POC 99 70 - 199 mg/dL Blood 03/26/2024 4:54 PM CDT 03/26/2024 4:54 PM CDT Ernie Baldwin MD LAB POCT ORDERABLES - DEVICE F inal Result Performing Organization Address [facility] de Phone Number ORI [address] [facility] [employer] [place], [place] [id number] * eGFR (03/26/2024 12:15 PM CDT) eGFR >90 >=60 mL/min/1. 73 m2 Comment: Interpretive Data Reference Interval Normal ?>/= 90 mL/min/1.73m2 Mildly decreased* ? 60 - 89 mL/min/1.73m2 Mildly to moderately decreased ?45 - 59 mL/min/1.73m2 Moderately to severely decreased ??30 - 44 mL/min/1.73m2 Severely decreased ?15 - 29 mL/min/1.73m2 Kidney Failure ?< 15 ??mL/min/1.73m2 *Relative to young adult level Estimated glomerular filtration rate is determined by the 2020 CKD-EPI equation recommended by the National Kidney Foundation (A Unifying Approach to GFR Estimation: Recommendations of the NKF-ASK Task Force on Reassessing the Inclusion of Race in Diagnosing Kidney Disease, JASN 2020). The CKD-EPI equation should not be used for patients with unstable renal function and has not been validated in children and those over 70. Current interpretive data was last reviewed 2021. Blood 03/26/2024 12:1 5 PM CDT 03/26/2024 12:57 PM CDT us Marlo Rdz MD LAB BLOOD ORDERABLES Fin al Result [facility] [address] Department [place] [address] * (ABNORMAL) Differential, auto (03/26/2024 12:15 PM CDT) Neutrophil abs 9.2(H) 1.5 - 6.5 K/cumm Imm gran abs 0.1 0.0 - 0.1 K/cumm [facility] Lymphocyte abs 2.4 0.8 - 3.3 K/cumm [facility] Monocyte abs 1.2(H) 0.2 - 0.8 K/cumm [facility] Eosinophil abs 0.1 0.0 - 0.5 K/cumm [facility] Basophil abs 0.0 0.0 - 0.1 K/cumm [facility] Neutrophil pct 70.9 % [facility] Comment: Interpretive Data Percent cell count reference ranges are not reported, since discordance with absolute values may lead to misinterpretation of CBC data. Current Interpretive Data was last revised on 2017. Imm gran pct 0.5 % [facility] Comment: Interpretive Data Percent cell count reference ranges are not reported, since discordance with absolute values may lead to misinterpretation of CBC data. Current Interpretive Data was last revised on 2017. Lymphocyte pct 18.4 % [facility] Comment: Interpretive Data Percent cell count reference ranges are not reported, since discordance with absolute values may lead to misinterpretation of CBC data. Current Interpretive Data was last revised on 2017. Monocyte pct 9.1 % [facility] Comment: Interpretive Data Percent cell count reference ranges are not reported, since discordance with absolute values may lead to misinterpretation of CBC data. Current Interpretive Data was last revised on 2017. Eosinophil pct 0.9 % [facility] Comment: Interpretive Data Percent cell count reference ranges are not reported, since discordance with absolute values may lead to misinterpretation of CBC data. Current Interpretive Data was last revised on 2017. Basophil pct 0.2 % [facility] Comment: Interpretive Data Percent cell count reference ranges are not reported, since discordance with absolute values may lead to misinterpretation of CBC data. Current Interpretive Data was last revised on 2017. Blood 03/26/2024 12:1 5 PM CDT 03/26/2024 12:56 PM CDT us Marlo Rdz MD LAB BLOOD ORDERABLES Fin al Result [facility] [address] Department [place] [address] * (ABNORMAL) CBC with auto differential (03/26/2024 12:15 PM CDT) WBC 12.9(H) 3.8 - 9.9 K/cumm Hgb 8.8(L) 13.0 - 17.5 g/dL [facility] Hct 25.2(L) 38.9 - 50.3 % [facility] Plt 138(L) 150 - 400 K/cumm [facility] MPV 11.3 9.1 - 12.3 fL [facility] RBC 2.88(L) 4.30 - 5.80 M/cumm [facility] MCV 87.5 81.3 - 96.4 fL [facility] MCH 30.6 27.1 - 33.3 pg [facility] MCHC 34.9 32.3 - 35.7 g/dL [facility] RDW CV 14.2 11.1 - 14.9 % [facility] RDW SD 44.4 35.7 - 48.1 fL [facility] NRBC abs 0.00 0.00 - 0.01 K/cumm [facility] Blood 03/26/2024 12:1 5 PM CDT 03/26/2024 12:56 PM CDT Marlo Rdz MD LAB BLOOD ORDERABLES Fin al Result Performing Organization Address [facility] Co de Phone Number ORI [address] [address] [place] [address] * Phosphorus (03/26/2024 12:15 PM CDT) Phosphorus, pl 4.0 2.3 - 4.5 mg/dL Blood 03/26/2024 12:1 5 PM CDT 03/26/2024 12:30 PM CDT Marlo Rdz MD LAB BLOOD ORDERABLES Fin al Result Performing Organization Address [facility] de Phone Number [facility] [address] [place] [address] * Magnesium (03/26/2024 12:15 PM CDT) Magnesium 2.0 1.4 - 2.5 mg/dL Blood 03/26/2024 12:1 5 PM CDT 03/26/2024 12:30 PM CDT Marlo Rdz MD LAB BLOOD ORDERABLES Fin al Result Performing Organization Address City/[facility] Co de Phone Number [facility] [address] [place] [address] * Basic metabolic panel (03/26/2024 12:15 PM CDT) Sodium 139 135 - 145 mmol/L Potassium, pl 3.8 3.3 - 4.9 mmol/L [facility] Chloride 100 97 - 110 mmol/L [facility] CO2 27 22 - 32 mmol/L [facility] Anion gap 12 2 - 15 mmol/L [facility] BUN 23 6 - 25 mg/dL [facility] Creatinine 0.80 0.80 - 1.30 mg/dL [facility] Comment:Icteric sample, test results may be affected. Glucose 86 70 - 199 mg/dL [facility] Comment: Interpretive Data Fasting glucose >/= 126 mg/dl is diagnostic for diabetes. ?? Fasting is defined as no caloric intake for at least 8 hours. Fasting glucose between 100 mg/dl to 125 mg/dl is diagnostic of prediabetes. In a patient with classic symptoms of hyperglycemia or hyperglycemic crisis, a random glucose >/= 200 mg/dl is diagnostic for diabetes. In the absence of unequivocal hyperglycemia, results should be confirmed by repeat testing. The classification and Diagnosis of Diabetes Diabetes Care 2021; 46: S19-S40. Current interpretive data was last revised 2022. Calcium 9.0 8.5 - 10.3 mg/dL [facility] Blood 03/26/2024 12:1 5 PM CDT 03/26/2024 12:30 PM CDT Marlo Rdz MD LAB BLOOD ORDERABLES Fin al Result [facility] [address] Department [place] [address] * aPTT (03/26/2024 12:15 PM CDT) aPTT 28 28 - 38 sec Comment: Interpretive Data Heparin therapeutic range: 66.0 - 100.0 seconds. Range based on correlation with therapeutic heparin activity range of 0.3 - 0.7 Units/mL. Current interpretive data was last revised on 2023. Blood 03/26/2024 12:1 5 PM CDT 03/26/2024 12:56 PM CDT Marlo Rdz MD LAB BLOOD ORDERABLES Fin al Result Performing Organization Address City/[facility]/[place] [address] [address] Department [place] [address] * POCT glucose (03/26/2024 12:10 PM CDT) Glucose, POC 99 70 - 199 mg/dL Blood 03/26/2024 12:1 0 PM CDT 03/26/2024 12:10 PM CDT Ernie Baldwin MD LAB POCT ORDERABLES - DEVICE F inal Result Performing Organization Address [facility] [place] [address] [address] [place] [address] * Critical Care (03/26/2024 10:03 AM CDT) Narrative Cr Cedillo, - 03/26/2024 10:03 AM CDT Tam Arias NP ? 03/26/2024 ??4:31 PM Critical Care Performed by: Tam Arias NP Authorized by: Tam Arias NP ?? CRITICAL CARE: ??Team: ??CHNE ??Shift: ??AM ??Level of Billing: ??Subsequent Hospital Visit Level 3 ??My time spent with this patient was 20 minutes: Critical Provider Statement: I have seen and examined the patient on this day of service. I have reviewed and confirmed the history, physical exam, laboratory, and radiographic data as documented in the ICU note. I have reviewed and discussed my treatment plan with the patient's team and other medical/bridal stylist sales consultant staff. This time was in addition to and separate from care provided by other practitioners on this day of service. ?? 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 Small bilateral pleural effusions, right greater than left appear similar to prior. ??Poststernotomy changes. ??There is pulmonary vascular congestion. ??No acute osseous abnormality. Electronically signed by: Spencer Neff II, D.O. Narrative 03/26/2024 9:23 AM CDT EXAMINATION: XR CHEST 1 VIEW DATE: 03/26/2024 9:15 AM INDICATION: Pleural effusion. COMPARISON: 03/25/2024. Procedure Note Spencer Neff II, DO - 03/26/2024 EXAMINATION: XR CHEST 1 VIEW DATE: 03/26/2024 9:15 AM INDICATION: Pleural effusion. COMPARISON: 03/25/2024. IMPRESSION: FINDINGS/IMPRESSION: Right IJ central venous catheter terminates in the superior cavoatrial junction. Small bilateral pleural effusions, right greater than left appear similar to prior. Poststernotomy changes. There is pulmonary vascular congestion. No acute osseous abnormality. Electronically signed by: Spencer Neff II, D.O. Ernie Badlwin MD IMG XR PROCEDURES Final Result * POCT glucose (03/26/2024 7:34 AM CDT) Glucose, POC 171 70 - 199 mg/dL Blood 03/26/2024 7:34 AM CDT 03/26/2024 7:34 AM CDT Ernie Baldwin MD LAB POCT ORDERABLES - DEVICE F inal Result ORI [address] Department [place] [address] * (ABNORMAL) aPTT (03/26/2024 6:13 AM CDT) aPTT 92(H) 28 - 38 sec Comment: Interpretive Data Heparin therapeutic range: 66.0 - 100.0 seconds. Range based on correlation with therapeutic heparin activity range of 0.3 - 0.7 Units/mL. Current interpretive data was last revised on 2023. Blood 03/26/2024 6:13 AM CDT 03/26/2024 6:21 AM CDT Nick ORI STODDARD - 03/26/2024 6:39 AM CDT Draw STAT PTT 6 hrs after initiation of heparin infusion, draw STAT PTT 6 hours after each dose change, and every 6 hours until 2 consecutive PTTs are within therapeutic range. Once two consecutive PTT's are therapeutic (66-100 seconds), then draw PTT every AM until heparin is discontinued. us Ernie Baldwin MD LAB BLOOD ORDERABLES Final Res ult ORI [address] Department [place] [address] * eGFR (03/26/2024 4:30 AM CDT) eGFR >90 >=60 mL/min/1. 73 m2 Comment: Interpretive Data Reference Interval Normal ?>/= 90 mL/min/1.73m2 Mildly decreased* ? 60 - 89 mL/min/1.73m2 Mildly to moderately decreased ?45 - 59 mL/min/1.73m2 Moderately to severely decreased ??30 - 44 mL/min/1.73m2 Severely decreased ?15 - 29 mL/min/1.73m2 Kidney Failure ?< 15 ??mL/min/1.73m2 *Relative to young adult level Estimated glomerular filtration rate is determined by the 2020 CKD-EPI equation recommended by the National Kidney Foundation (A Unifying Approach to GFR Estimation: Recommendations of the NKF-ASK Task Force on Reassessing the Inclusion of Race in Diagnosing Kidney Disease, JASN 2020). The CKD-EPI equation should not be used for patients with unstable renal function and has not been validated in children and those over 70. Current interpretive data was last reviewed 2021. Blood 03/26/2024 4:30 AM CDT 03/26/2024 4:53 AM CDT Ernie Baldwin MD LAB BLOOD ORDERABLES Final Res ult [facility] [address] Department [place] [address] * (ABNORMAL) Basic metabolic panel (03/26/2024 4:30 AM CDT) Sodium 141 135 - 145 mmol/L Potassium, pl 3.4 3.3 - 4.9 mmol/L [facility] Chloride 102 97 - 110 mmol/L [facility] CO2 30 22 - 32 mmol/L [facility] Anion gap 9 2 - 15 mmol/L [facility] BUN 22 6 - 25 mg/dL [facility] Creatinine 0.78(L) 0.80 - 1.30 mg/dL [facility] Comment:Icteric sample, test results may be affected. Glucose 137 70 - 199 mg/dL [facility] Comment: Interpretive Data Fasting glucose >/= 126 mg/dl is diagnostic for diabetes. ?? Fasting is defined as no caloric intake for at least 8 hours. Fasting glucose between 100 mg/dl to 125 mg/dl is diagnostic of prediabetes. In a patient with classic symptoms of hyperglycemia or hyperglycemic crisis, a random glucose >/= 200 mg/dl is diagnostic for diabetes. In the absence of unequivocal hyperglycemia, results should be confirmed by repeat testing. The classification and Diagnosis of Diabetes Diabetes Care 2021; 46: S19-S40. Current interpretive data was last revised 2022. Calcium 8.3(L) 8.5 - 10.3 mg/dL [facility] Blood 03/26/2024 4:30 AM CDT 03/26/2024 4:53 AM CDT Ernie Baldwin MD LAB BLOOD ORDERABLES Final Res ult Performing Organization Address City/[facility]/ZIP Co de Phone Number ORI STODDARD [address] [facility] [place] [address] * Magnesium (03/26/2024 4:30 AM CDT) Magnesium 2.1 1.4 - 2.5 mg/dL Blood 03/26/2024 4:30 AM CDT 03/26/2024 4:53 AM CDT Ernie Baldwin MD LAB BLOOD ORDERABLES Final Res ult Performing Organization Address [facility] de Phone Number ORI STODDARD [address] [facility] [place] [address] * (ABNORMAL) CBC without differential (03/26/2024 4:30 AM CDT) WBC 10.1(H) 3.8 - 9.9 K/cumm Hgb 7.9(L) 13.0 - 17.5 g/dL [facility] Hct 22.8(L) 38.9 - 50.3 % [facility] Plt 87(L) 150 - 400 K/cumm [facility] MPV 11.2 9.1 - 12.3 fL [facility] RBC 2.62(L) 4.30 - 5.80 M/cumm [facility] MCV 87.0 81.3 - 96.4 fL [facility] MCH 30.2 27.1 - 33.3 pg [facility] MCHC 34.6 32.3 - 35.7 g/dL [facility] RDW CV 14.3 11.1 - 14.9 % [facility] RDW SD 44.4 35.7 - 48.1 fL [facility] NRBC abs 0.00 0.00 - 0.01 K/cumm [facility] Blood 03/26/2024 4:30 AM CDT 03/26/2024 4:53 AM CDT Ernie Baldwin MD LAB BLOOD ORDERABLES Final Res ult Performing Organization Address [facility] Co de Phone Number ORI STODDARD [address] [place] [address] * POCT glucose (03/26/2024 3:11 AM CDT) Glucose, POC 117 70 - 199 mg/dL Blood 03/26/2024 3:11 AM CDT 03/26/2024 3:11 AM CDT Ernie Baldwin MD LAB POCT ORDERABLES - DEVICE F inal Result Performing Organization Address [facility] de Phone Number ORI STODDARD [address] [facility] [place] [address] * (ABNORMAL) aPTT (03/26/2024 12:10 AM CDT) aPTT >150(C) 28 - 38 sec Comment: Critical result called to and read back by Jenaro 03/26/2024 01:11:33 CDT to Adrian Vasques Interpretive Data Heparin therapeutic range: 66.0 - 100.0 seconds. Range based on correlation with therapeutic heparin activity range of 0.3 - 0.7 Units/mL. Current interpretive data was last revised on 2023. Blood 03/26/2024 12:1 0 AM CDT 03/26/2024 12:20 AM CDT Narrative ORI STODDARD - 03/26/2024 1:12 AM CDT Draw STAT PTT 6 hrs after initiation of heparin infusion, draw STAT PTT 6 hours after each dose change, and every 6 hours until 2 consecutive PTTs are within therapeutic range. Once two consecutive PTT's are therapeutic (66-100 seconds), then draw PTT every AM until heparin is discontinued. Ernie Baldwin MD LAB BLOOD ORDERABLES Final Res ult Performing Organization Address [facility] Co de Phone Number ORI STODDARD [address] [place] [address] * POCT glucose (03/25/2024 7:33 PM CDT) Glucose, POC 132 70 - 199 mg/dL Blood 03/25/2024 7:33 PM CDT 03/25/2024 7:33 PM CDT Ernie Baldwin MD LAB POCT ORDERABLES - DEVICE F inal Result Performing Organization Address [facility] Co de Phone Number ORI [address] [facility] [place] [address] * (ABNORMAL) aPTT (03/25/2024 6:50 PM CDT) [facility] aPTT 27(L) 28 - 38 sec Comment: Interpretive Data Heparin therapeutic range: 66.0 - 100.0 seconds. Range based on correlation with therapeutic heparin activity range of 0.3 - 0.7 Units/mL. Current interpretive data was last revised on 2023. Blood 03/25/2024 6:50 PM CDT 03/25/2024 6:52 PM CDT Ernie Baldwin MD LAB BLOOD ORDERABLES Final Res ult Performing Organization Address [facility] Co de Phone Number ORI [address] [facility] [place] [address] * POCT glucose (03/25/2024 4:58 PM CDT) Pathologist [facility] Glucose, POC 131 70 - 199 mg/dL Blood 03/25/2024 4:58 PM CDT 03/25/2024 4:58 PM CDT Ernie Baldwin MD LAB POCT ORDERABLES - DEVICE F inal Result Performing Organization Address [facility] Co de Phone Number ORI [address] [facility] [place] [address] * eGFR (03/25/2024 4:21 PM CDT) [facility] eGFR >90 >=60 mL/min/1. 73 m2 Comment: Interpretive Data Reference Interval Normal ?>/= 90 mL/min/1.73m2 Mildly decreased* ? 60 - 89 mL/min/1.73m2 Mildly to moderately decreased ?45 - 59 mL/min/1.73m2 Moderately to severely decreased ??30 - 44 mL/min/1.73m2 Severely decreased ?15 - 29 mL/min/1.73m2 Kidney Failure ?< 15 ??mL/min/1.73m2 *Relative to young adult level Estimated glomerular filtration rate is determined by the 2020 CKD-EPI equation recommended by the National Kidney Foundation (A Unifying Approach to GFR Estimation: Recommendations of the NKF-ASK Task Force on Reassessing the Inclusion of Race in Diagnosing Kidney Disease, JASN 2020). The CKD-EPI equation should not be used for patients with unstable renal function and has not been validated in children and those over 70. Current interpretive data was last reviewed 2021. Blood 03/25/2024 4:21 PM CDT 03/25/2024 4:24 PM CDT us Ernie Baldwin MD LAB BLOOD ORDERABLES Final Res ult [facility] [address] Department [place] [address] * (ABNORMAL) Basic metabolic panel (03/25/2024 4:21 PM CDT) [facility] Sodium 143 135 - 145 mmol/L Potassium, pl 3.5 3.3 - 4.9 mmol/L [facility] Chloride 104 97 - 110 mmol/L [facility] CO2 25 22 - 32 mmol/L [facility] Anion gap 14 2 - 15 mmol/L [facility] BUN 23 6 - 25 mg/dL [facility] Creatinine 0.71(L) 0.80 - 1.30 mg/dL [facility] Comment:Icteric sample, test results may be affected. Glucose 111 70 - 199 mg/dL [facility] Comment: Interpretive Data Fasting glucose >/= 126 mg/dl is diagnostic for diabetes. ?? Fasting is defined as no caloric intake for at least 8 hours. Fasting glucose between 100 mg/dl to 125 mg/dl is diagnostic of prediabetes. In a patient with classic symptoms of hyperglycemia or hyperglycemic crisis, a random glucose >/= 200 mg/dl is diagnostic for diabetes. In the absence of unequivocal hyperglycemia, results should be confirmed by repeat testing. The classification and Diagnosis of Diabetes Diabetes Care 2021; 46: S19-S40. Current interpretive data was last revised 2022. Calcium 8.4(L) 8.5 - 10.3 mg/dL [facility] Blood 03/25/2024 4:21 PM CDT 03/25/2024 4:24 PM CDT us Ernie Baldwin MD LAB BLOOD ORDERABLES Final Res ult [facility] [address] [place] [address] * (ABNORMAL) CBC without differential (03/25/2024 12:21 PM CDT) WBC 11.3(H) 3.8 - 9.9 K/cumm Hgb 8.0(L) 13.0 - 17.5 g/dL [facility] Hct 22.8(L) 38.9 - 50.3 % [facility] Plt 68(L) 150 - 400 K/cumm [facility] Comment:No clot detected in sample. MPV 11.4 9.1 - 12.3 fL [facility] RBC 2.65(L) 4.30 - 5.80 M/cumm [facility] MCV 86.0 81.3 - 96.4 fL [facility] MCH 30.2 27.1 - 33.3 pg [facility] MCHC 35.1 32.3 - 35.7 g/dL [facility] RDW CV 14.3 11.1 - 14.9 % [facility] RDW SD 44.5 35.7 - 48.1 fL [facility] NRBC abs 0.00 0.00 - 0.01 K/cumm [facility] Blood 03/25/2024 12:2 1 PM CDT 03/25/2024 12:36 PM CDT Narrative [facility] - 03/25/2024 1:39 PM CDT Baseline prior to warfarin initiation. Ernie Baldwin MD LAB BLOOD ORDERABLES Final Res ult Performing Organization Address [facility] Co de Phone Number BANDARRIO [phone] [place] [address] * (ABNORMAL) aPTT (03/25/2024 12:21 PM CDT) aPTT 26(L) 28 - 38 sec Comment: Interpretive Data Heparin therapeutic range: 66.0 - 100.0 seconds. Range based on correlation with therapeutic heparin activity range of 0.3 - 0.7 Units/mL. Current interpretive data was last revised on 2023. Blood 03/25/2024 12:2 1 PM CDT 03/25/2024 12:36 PM CDT Narrative [facility] - 03/25/2024 12:51 PM CDT Baseline prior to heparin initiation Ernie Baldwin MD LAB BLOOD ORDERABLES Final Res ult Performing Organization Address [facility] Co de Phone Number ORI STODDARD [address] [facility] [address] [place], [place] [id number] * Protime-INR (03/25/2024 12:21 PM CDT) PT 11.9 9.7 - 13.0 sec INR 1.10 0.90 - 1.20 [facility] Comment: Interpretive data Oral anticoagulant therapeutic ranges: Venous thromboembolism prophylaxis or treatment: 2.0-3.0 CARDIOLOGY Standard range: 2.0-3.0 High-intensity range: 2.5-3.5 Refer to indication-specific guidelines for appropriate target ranges for prosthetic heart valve replacement. Current interpretive data was last revised on 2019. Blood 03/25/2024 12:2 1 PM CDT 03/25/2024 12:36 PM CDT Narrative ORI STODDARD - 03/25/2024 12:48 PM CDT Baseline prior to heparin initiation Ernie Baldwin MD LAB BLOOD ORDERABLES Final Res ult Performing Organization Address [facility] de Phone Number ORI [address] [place] [address] * POCT glucose (03/25/2024 12:06 PM CDT) [facility] Signature Glucose, POC 129 70 - 199 mg/dL Blood 03/25/2024 12:0 6 PM CDT 03/25/2024 12:06 PM CDT Ernie Baldwin MD LAB POCT ORDERABLES - DEVICE F inal Result Performing Organization Address [facility] Phone Number [facility] [phone] [place] [address] * ECG 12 lead (03/25/2024 9:58 AM CDT) 03/25/2024 9:58 AM CDT Narrative [facility] - 03/25/2024 10:18 AM CDT Vent Rate: 92 bpm RR Interval: 646 msec NV Interval: 135 msec QRS Duration: 102 msec QT Interval: 409 msec QTC Interval: 459 msec P-R-T [place]: 55 - 30 - 21 degrees IMPRESSION: SINUS RHYTHM NONSPECIFIC T-WAVE ABNORMALITY BORDERLINE ECG Compared to prior EKG, heart rate has increased ST elevations are no longer present Electronically Signed By: West Ruvalcaba MD Ernie Baldwin MD ECG ORDERABLES Final Result Performing Organization Address [facility] de Phone Number [facility] [employer] [facility] * Critical Care (03/25/2024 8:35 AM CDT) Narrative Dequan Keller MD - 03/25/2024 8:35 AM CDT Tam Arias NP ? 03/25/2024 12:12 PM Critical Care Performed by: Tam Arias NP Authorized by: Tam Arias NP ?? CRITICAL CARE: ??Team: ??CHNE ??Shift: ??AM ??Level of Billing: ??Subsequent Hospital Visit Level 3 ??My time spent with this patient was 30 minutes: Critical Provider Statement: I have seen and examined the patient on this day of service. I have reviewed and confirmed the history, physical exam, laboratory, and radiographic data as documented in the ICU note. I have reviewed and discussed my treatment plan with the patient's team and other medical/bridal stylist sales consultant staff. This time was in addition to and separate from care provided by other practitioners on this day of service. ?? us Tam Arias NP IN CLINIC/BEDSIDE ORD ERABLES Final Result * POCT glucose (03/25/2024 7:43 AM CDT) Glucose, POC 161 70 - 199 mg/dL Blood 03/25/2024 7:43 AM CDT 03/25/2024 7:43 AM CDT us Ernie Baldwin MD LAB POCT ORDERABLES - DEVICE F inal Result Performing Organization Address City/State/[facility] Co mn Phone Number [facility] [phone] Department of Laboratories [place], [place] [id number] * XR Chest 1 Vw Portable (03/25/2024 6:49 AM CDT) Anatomical Region Laterality Modality Body, Chest N/A Computed Radiogr aphy 03/25/2024 7:33 AM CDT Impressions 03/25/2024 7:33 AM CDT Unchanged right effusion. Electronically signed by: Hamzah Mackey M.D. Narrative 03/25/2024 7:33 AM CDT EXAMINATION: XR CHEST 1 VIEW HISTORY: The patient is a 58-year-old male who presents with a right pleural effusion. ??Comparison made with the previous study dated 03/24/2024. TECHNIQUE: AP portable view of the chest. FINDINGS: Right effusion noted with right lower lobe compressive atelectasis secondary to this. ??The remainder of the lungs are clear. ??Heart not enlarged. ??No failure. ??The distal tip of a retracted Overgaard-Stevie catheter is in the distal superior vena cava. Procedure Note Hamzah Mackey MD - 03/25/2024 EXAMINATION: XR CHEST 1 VIEW HISTORY: The patient is a 58-year-old male who presents with a right pleural effusion. Comparison made with the previous study dated 03/24/2024. TECHNIQUE: AP portable view of the chest. FINDINGS: Right effusion noted with right lower lobe compressive atelectasis secondary to this. The remainder of the lungs are clear. Heart not enlarged. No failure. The distal tip of a retracted Overgaard-Stevie catheter is in the distal superior vena cava. IMPRESSION: Unchanged right effusion. Electronically signed by: Hamzah Mackey M.D. Ernie Baldwin MD IMG XR PROCEDURES Final Result * eGFR (03/25/2024 5:05 AM CDT) eGFR >90 >=60 mL/min/1. 73 m2 Comment: Interpretive Data Reference Interval Normal ?>/= 90 mL/min/1.73m2 Mildly decreased* ? 60 - 89 mL/min/1.73m2 Mildly to moderately decreased ?45 - 59 mL/min/1.73m2 Moderately to severely decreased ??30 - 44 mL/min/1.73m2 Severely decreased ?15 - 29 mL/min/1.73m2 Kidney Failure ?< 15 ??mL/min/1.73m2 *Relative to young adult level Estimated glomerular filtration rate is determined by the 2020 CKD-EPI equation recommended by the National Kidney Foundation (A Unifying Approach to GFR Estimation: Recommendations of the NKF-ASK Task Force on Reassessing the Inclusion of Race in Diagnosing Kidney Disease, JASN 2020). The CKD-EPI equation should not be used for patients with unstable renal function and has not been validated in children and those over 70. Current interpretive data was last reviewed 2021. Blood 03/25/2024 5:05 AM CDT 03/25/2024 5:21 AM CDT us Ernie Baldwin MD LAB BLOOD ORDERABLES Final Res ult [facility] [address] Department [place] [address] * (ABNORMAL) Basic metabolic panel (03/25/2024 5:05 AM CDT) Sodium 142 135 - 145 mmol/L Potassium, pl 3.7 3.3 - 4.9 mmol/L [facility] Chloride 109 97 - 110 mmol/L [facility] CO2 24 22 - 32 mmol/L [facility] Anion gap 9 2 - 15 mmol/L [facility] BUN 25 6 - 25 mg/dL [facility] Creatinine 0.71(L) 0.80 - 1.30 mg/dL [facility] Glucose 134 70 - 199 mg/dL [facility] Comment: Interpretive Data Fasting glucose >/= 126 mg/dl is diagnostic for diabetes. ?? Fasting is defined as no caloric intake for at least 8 hours. Fasting glucose between 100 mg/dl to 125 mg/dl is diagnostic of prediabetes. In a patient with classic symptoms of hyperglycemia or hyperglycemic crisis, a random glucose >/= 200 mg/dl is diagnostic for diabetes. In the absence of unequivocal hyperglycemia, results should be confirmed by repeat testing. The classification and Diagnosis of Diabetes Diabetes Care 202; 46: S19-S40. Current interpretive data was last revised 2022. Calcium 8.0(L) 8.5 - 10.3 mg/dL [facility] Blood 03/25/2024 5:05 AM CDT 03/25/2024 5:21 AM CDT Ernie Baldwin MD LAB BLOOD ORDERABLES Final Res ult Performing Organization Address City/[facility]/ZIP Co de Phone Number ORI STODDARD [phone] [place] [address] * Magnesium (03/25/2024 5:05 AM CDT) Pathologist [facility] Magnesium 1.9 1.4 - 2.5 mg/dL Blood 03/25/2024 5:05 AM CDT 03/25/2024 5:21 AM CDT Ernie Baldwin MD LAB BLOOD ORDERABLES Final Res ult Performing Organization Address [facility] Co de Phone Number ORI STODDARD [address] [place] [address] * (ABNORMAL) CBC without differential (03/25/2024 5:05 AM CDT) WBC 10.1(H) 3.8 - 9.9 K/cumm Hgb 7.4(L) 13.0 - 17.5 g/dL [facility] Hct 21.9(L) 38.9 - 50.3 % [facility] Plt 56(L) 150 - 400 K/cumm [facility] Comment:No clot detected in sample. MPV 11.7 9.1 - 12.3 fL [facility] RBC 2.49(L) 4.30 - 5.80 M/cumm [facility] MCV 88.0 81.3 - 96.4 fL [facility] MCH 29.7 27.1 - 33.3 pg [facility] MCHC 33.8 32.3 - 35.7 g/dL [facility] RDW CV 13.9 11.1 - 14.9 % [facility] RDW SD 44.1 35.7 - 48.1 fL [facility] NRBC abs 0.00 0.00 - 0.01 K/cumm [facility] Blood 03/25/2024 5:05 AM CDT 03/25/2024 5:21 AM CDT Ernie Baldwin MD LAB BLOOD ORDERABLES Final Res ult Performing Organization Address [facility] Co de Phone Number ORI STODDARD [address] [address] [facility] [place] [address] * Transfuse RBC (03/25/2024 3:13 AM CDT) Blood Ernie Baldwin MD BLOOD TRANSFUSION ORDERABLES F inal Result Performing Organization Address [facility] Co de Phone Number BANDARRIO STODDARD [address] [address] [facility] [place] [address] * POCT glucose (03/25/2024 2:32 AM CDT) Glucose, POC 132 70 - 199 mg/dL Blood 03/25/2024 2:32 AM CDT 03/25/2024 2:32 AM CDT Ernie Baldwin MD LAB POCT ORDERABLES - DEVICE F inal Result Performing Organization Address [facility] Co de Phone Number ORI [address] [facility] [place] [address] * POCT glucose (03/24/2024 9:22 PM CDT) Glucose, POC 140 70 - 199 mg/dL Blood 03/24/2024 9:22 PM CDT 03/24/2024 9:22 PM CDT Ernie Baldwin MD LAB POCT ORDERABLES - DEVICE F inal Result Performing Organization Address [facility] Co de Phone Number ORI [address] [facility] [place] [address] * POCT glucose (03/24/2024 5:52 PM CDT) Glucose, POC 117 70 - 199 mg/dL Blood 03/24/2024 5:52 PM CDT 03/24/2024 5:52 PM CDT Ernie Baldwin MD LAB POCT ORDERABLES - DEVICE F inal Result Performing Organization Address [facility] de Phone Number ORI [address] [facility] [employer] [place], [place] [id number] * Prepare RBC: 1 Units (03/24/2024 3:57 PM CDT) [facility] Product code [id number] Unit Number [id number] 1-W [facility] Product Blood Type BPOS [facility] Dispense Status RETURNED [facility] Blood 03/24/2024 3:57 PM CDT Narrative [facility] - 03/26/2024 12:05 AM CDT Are special requirements needed? (All products are leukoreduced and CMV- safe)- >No Date required:-[id number] LRRBC # of [id number] Reasons:-Hgb <7 g/dL} Ernie Baldwin MD BLOOD BANK PRODUCT ORDERABLES Final Result Performing Organization Address [facility] de Phone Number ORI [address] [facility] [place] [address] * eGFR (03/24/2024 2:01 PM CDT) [facility] eGFR >90 >=60 mL/min/1. 73 m2 Comment: Interpretive Data Reference Interval Normal ?>/= 90 mL/min/1.73m2 Mildly decreased* ? 60 - 89 mL/min/1.73m2 Mildly to moderately decreased ?45 - 59 mL/min/1.73m2 Moderately to severely decreased ??30 - 44 mL/min/1.73m2 Severely decreased ?15 - 29 mL/min/1.73m2 Kidney Failure ?< 15 ??mL/min/1.73m2 *Relative to young adult level Estimated glomerular filtration rate is determined by the 2020 CKD-EPI equation recommended by the National Kidney Foundation (A Unifying Approach to GFR Estimation: Recommendations of the NKF-ASK Task Force on Reassessing the Inclusion of Race in Diagnosing Kidney Disease, JASN 202). The CKD-EPI equation should not be used for patients with unstable renal function and has not been validated in children and those over 70. Current interpretive data was last reviewed 2021. Blood 03/24/2024 2:01 PM CDT 03/24/2024 2:14 PM CDT us Ernie Baldwin MD LAB BLOOD ORDERABLES Final Res ult [facility] [address] Department of Laboratories [place], [place] [phone] * (ABNORMAL) CBC without differential (03/24/2024 2:01 PM CDT) WBC 11.6(H) 3.8 - 9.9 K/cumm Hgb 6.9(L) 13.0 - 17.5 g/dL [facility] Hct 19.6(L) 38.9 - 50.3 % [facility] Plt 54(L) 150 - 400 K/cumm [facility] MPV 11.3 9.1 - 12.3 fL [facility] RBC 2.27(L) 4.30 - 5.80 M/cumm [facility] MCV 86.3 81.3 - 96.4 fL [facility] MCH 30.4 27.1 - 33.3 pg [facility] MCHC 35.2 32.3 - 35.7 g/dL [facility] RDW CV 13.4 11.1 - 14.9 % [facility] RDW SD 42.4 35.7 - 48.1 fL [facility] NRBC abs 0.00 0.00 - 0.01 K/cumm [facility] Blood 03/24/2024 2:01 PM CDT 03/24/2024 2:13 PM CDT Ernie Baldwin MD LAB BLOOD ORDERABLES Final Res ult Performing Organization Address [facility] Co de Phone Number ORI STODDARD [address] [place] [address] * (ABNORMAL) Phosphorus (03/24/2024 2:01 PM CDT) Phosphorus, pl 1.4(L) 2.3 - 4.5 mg/dL Blood 03/24/2024 2:01 PM CDT 03/24/2024 2:14 PM CDT Ernie Baldwin MD LAB BLOOD ORDERABLES Final Res ult Performing Organization Address [facility] de Phone Number BANDARRIO STODDARD [address] [place] [employer] [place] [address] * Magnesium (03/24/2024 2:01 PM CDT) Pathologist [facility] Magnesium 1.9 1.4 - 2.5 mg/dL Blood 03/24/2024 2:01 PM CDT 03/24/2024 2:14 PM CDT Ernie Baldwin MD LAB BLOOD ORDERABLES Final Res ult Performing Organization Address [facility] de Phone Number ORI STODDARD [address] [place] [address] * (ABNORMAL) Basic metabolic panel (03/24/2024 2:01 PM CDT) Sodium 141 135 - 145 mmol/L Potassium, pl 3.6 3.3 - 4.9 mmol/L [facility] Chloride 108 97 - 110 mmol/L [facility] CO2 22 22 - 32 mmol/L [facility] Anion gap 11 2 - 15 mmol/L [facility] BUN 22 6 - 25 mg/dL [facility] Creatinine 0.71(L) 0.80 - 1.30 mg/dL [facility] Glucose 195 70 - 199 mg/dL [facility] Comment: Interpretive Data Fasting glucose >/= 126 mg/dl is diagnostic for diabetes. ?? Fasting is defined as no caloric intake for at least 8 hours. Fasting glucose between 100 mg/dl to 125 mg/dl is diagnostic of prediabetes. In a patient with classic symptoms of hyperglycemia or hyperglycemic crisis, a random glucose >/= 200 mg/dl is diagnostic for diabetes. In the absence of unequivocal hyperglycemia, results should be confirmed by repeat testing. The classification and Diagnosis of Diabetes Diabetes Care 2021; 46: S19-S40. Current interpretive data was last revised 2022. Calcium 8.0(L) 8.5 - 10.3 mg/dL [facility] Blood 03/24/2024 2:01 PM CDT 03/24/2024 2:14 PM CDT Ernie Baldwin MD LAB BLOOD ORDERABLES Final Res ult [address] [place] [address] * (ABNORMAL) POCT glucose (03/24/2024 12:41 PM CDT) Glucose, POC 231(H) 70 - 199 mg/dL Blood 03/24/2024 12:4 1 PM CDT 03/24/2024 12:41 PM CDT Ernie Baldwin MD LAB POCT ORDERABLES - DEVICE F inal Result Performing Organization Address City/[facility]/ZIP Co de Phone Number BANDARRIO [address] [place], [place] [phone] * POCT glucose (03/24/2024 7:38 AM CDT) Glucose, POC 192 70 - 199 mg/dL Blood 03/24/2024 7:38 AM CDT 03/24/2024 7:38 AM CDT us Ernie Baldwin MD LAB POCT ORDERABLES - DEVICE F inal Result Performing Organization Address City/State/[place] [address] [address] Department [place] [address] * Critical Care (03/24/2024 7:13 AM CDT) Narrative Dequan Keller MD - 03/24/2024 7:13 AM CDT Tam Arias NP ? 03/24/2024 ??3:21 PM Critical Care Performed by: Tam Arias NP Authorized by: Tam Arias NP ?? CRITICAL CARE: ??Team: ??CHNE ??Shift: ??AM ??Level of Billing: ??Critical Care ??My time spent with this patient was 45 minutes: Critical Provider Statement: I have seen and examined the patient on this day of service. I have reviewed and confirmed the history, physical exam, laboratory and radiologic data as documented in the signed ICU note. I have reviewed and discussed my treatment plan with the ICU team and other medical/bridal stylist sales consultant staff, making frequent assessments and decisions regarding this patient's complex medical care. Critical Care time was exclusive of time spent performing separately billed procedures, treating other patients, and teaching. This time was in addition to and separate from critical care provided by other practitioners in my group on this day of service. Critical Care was necessary to treat or prevent imminent or life-threatening deterioration of the following conditions: ? I spent time reviewing and interpreting data from bedside monitors, laboratory results, and imaging, I spent time discussing the management of this critically ill patient with consultants and the medical staff and I spent time documenting in the medical record us Tam Arias NP IN CLINIC/BEDSIDE ORD ERABLES Final Result * eGFR (03/24/2024 4:06 AM CDT) [facility] eGFR >90 >=60 mL/min/1. 73 m2 Comment: Interpretive Data Reference Interval Normal ?>/= 90 mL/min/1.73m2 Mildly decreased* ? 60 - 89 mL/min/1.73m2 Mildly to moderately decreased ?45 - 59 mL/min/1.73m2 Moderately to severely decreased ??30 - 44 mL/min/1.73m2 Severely decreased ?15 - 29 mL/min/1.73m2 Kidney Failure ?< 15 ??mL/min/1.73m2 *Relative to young adult level Estimated glomerular filtration rate is determined by the 2020 CKD-EPI equation recommended by the National Kidney Foundation (A Unifying Approach to GFR Estimation: Recommendations of the NKF-ASK Task Force on Reassessing the Inclusion of Race in Diagnosing Kidney Disease, JASN 2020). The CKD-EPI equation should not be used for patients with unstable renal function and has not been validated in children and those over 70. Current interpretive data was last reviewed 2021. Blood 03/24/2024 4:06 AM CDT 03/24/2024 4:24 AM CDT us Ernie Baldwin MD LAB BLOOD ORDERABLES Final Res ult [facility] [address] Department [place] [address] * (ABNORMAL) Basic metabolic panel (03/24/2024 4:06 AM CDT) Sodium 140 135 - 145 mmol/L Potassium, pl 3.9 3.3 - 4.9 mmol/L [facility] Chloride 109 97 - 110 mmol/L [facility] CO2 20(L) 22 - 32 mmol/L [facility] Anion gap 11 2 - 15 mmol/L [facility] BUN 19 6 - 25 mg/dL [facility] Creatinine 0.68(L) 0.80 - 1.30 mg/dL [facility] Glucose 173 70 - 199 mg/dL [facility] Comment: Interpretive Data Fasting glucose >/= 126 mg/dl is diagnostic for diabetes. ?? Fasting is defined as no caloric intake for at least 8 hours. Fasting glucose between 100 mg/dl to 125 mg/dl is diagnostic of prediabetes. In a patient with classic symptoms of hyperglycemia or hyperglycemic crisis, a random glucose >/= 200 mg/dl is diagnostic for diabetes. In the absence of unequivocal hyperglycemia, results should be confirmed by repeat testing. The classification and Diagnosis of Diabetes Diabetes Care 2021; 46: S19-S40. Current interpretive data was last revised 2022. Calcium 8.4(L) 8.5 - 10.3 mg/dL [facility] Blood 03/24/2024 4:06 AM CDT 03/24/2024 4:24 AM CDT Ernie Baldwin MD LAB BLOOD ORDERABLES Final Res ult Performing Organization Address [facility] de Phone Number ORI STODDARD [address] [place] [address] * Magnesium (03/24/2024 4:06 AM CDT) Pathologist [facility] Magnesium 2.0 1.4 - 2.5 mg/dL Blood 03/24/2024 4:06 AM CDT 03/24/2024 4:24 AM CDT Ernie Baldwin MD LAB BLOOD ORDERABLES Final Res ult Performing Organization Address [facility] de Phone Number ORI [address] [place] [address] * (ABNORMAL) CBC without differential (03/24/2024 4:06 AM CDT) WBC 10.9(H) 3.8 - 9.9 K/cumm Hgb 7.1(L) 13.0 - 17.5 g/dL [facility] Hct 20.0(L) 38.9 - 50.3 % [facility] Plt 54(L) 150 - 400 K/cumm [facility] Comment:No clot detected in sample. MPV 11.3 9.1 - 12.3 fL [facility] RBC 2.35(L) 4.30 - 5.80 M/cumm [facility] MCV 85.1 81.3 - 96.4 fL [facility] MCH 30.2 27.1 - 33.3 pg [facility] MCHC 35.5 32.3 - 35.7 g/dL [facility] RDW CV 13.5 11.1 - 14.9 % [facility] RDW SD 42.3 35.7 - 48.1 fL [facility] NRBC abs 0.00 0.00 - 0.01 K/cumm [facility] Blood 03/24/2024 4:06 AM CDT 03/24/2024 4:23 AM CDT Ernie Baldwin MD LAB BLOOD ORDERABLES Final Res ult [facility]I [address] Department [place] [address] * XR Chest 1 View (03/24/2024 4:00 AM CDT) Anatomical Region Laterality Modality Body, Chest N/A Computed Radiogr aphy 03/24/2024 8:21 AM CDT Impressions 03/24/2024 8:21 AM CDT Right effusion. Electronically signed by: Hamzah Mackey M.D. Narrative 03/24/2024 8:21 AM CDT EXAMINATION: XR CHEST 1 VIEW HISTORY: The patient is a 58-year-old male who has had surgery for aortic stenosis. ??Comparison made with the previous study dated 03/23/2024. TECHNIQUE: AP portable view of the chest. FINDINGS: Since the last examination, the endotracheal and nasogastric tubes have been removed. ??The distal tip off the retracted Overgaard-Stevie catheter is in the superior vena cava. ??Heart not enlarged. ??Aortic atherosclerosis. ??Right effusion noted, with the remainder of the lungs being clear. Procedure Note Hamzah Mackey MD - 03/24/2024 EXAMINATION: XR CHEST 1 VIEW HISTORY: The patient is a 58-year-old male who has had surgery for aortic stenosis. Comparison made with the previous study dated 03/23/2024. TECHNIQUE: AP portable view of the chest. FINDINGS: Since the last examination, the endotracheal and nasogastric tubes have been removed. The distal tip off the retracted Overgaard-Stevie catheter is in the superior vena cava. Heart not enlarged. Aortic atherosclerosis. Right effusion noted, with the remainder of the lungs being clear. IMPRESSION: Right effusion. Electronically signed by: Hamzah Mackey M.D. Ernie Baldwin MD IMG XR PROCEDURES Final Result * POCT glucose (03/24/2024 1:50 AM CDT) [facility] Signature Glucose, POC 178 70 - 199 mg/dL Blood 03/24/2024 1:50 AM CDT 03/24/2024 1:50 AM CDT Ernie Baldwin MD LAB POCT ORDERABLES - DEVICE F inal Result [facility] [address] [facility] Department of Laboratories [place] [phone] * Critical Care (03/23/2024 11:23 PM CDT) Narrative Carlos Alberto Sandoval MD - 03/23/2024 11:23 PM CDT Erika Villanueva PA ? 03/24/2024 ??4:31 AM Critical Care Performed by: Erika Villanueva PA Authorized by: Erika Villanueva PA ?? CRITICAL CARE: ??Team: ??CHNE ??Shift: ??PM ??Level of Billing: ??Critical Care ??My time spent with this patient was 45 minutes: Critical Provider Statement: I have seen and examined the patient on this day of service. I have reviewed and confirmed the history, physical exam, laboratory and radiologic data as documented in the signed ICU note. I have reviewed and discussed my treatment plan with the ICU team and other medical/bridal stylist sales consultant staff, making frequent assessments and decisions regarding this patient's complex medical care. Critical Care time was exclusive of time spent performing separately billed procedures, treating other patients, and teaching. This time was in addition to and separate from critical care provided by other practitioners in my group on this day of service. Critical Care was necessary to treat or prevent imminent or life-threatening deterioration of the following conditions: ? I spent time reviewing and interpreting data from bedside monitors, laboratory results, and imaging, I spent time discussing the management of this critically ill patient with consultants and the medical staff and I spent time documenting in the medical record Erika VIDALES IN CLINIC/BEDSIDE ORDERA BLES Final Result * POCT glucose (03/23/2024 8:08 PM CDT) Glucose, POC 151 70 - 199 mg/dL Blood 03/23/2024 8:08 PM CDT 03/23/2024 8:08 PM CDT Result [facility] Ernie Baldwin MD LAB POCT ORDERABLES - DEVICE F inal Result Performing Organization Address [facility] [place] [address] [address] [place], [place] [phone] * POCT glucose (03/23/2024 4:23 PM CDT) Glucose, POC 134 70 - 199 mg/dL Blood 03/23/2024 4:23 PM CDT 03/23/2024 4:23 PM CDT Ernie Baldwin MD LAB POCT ORDERABLES - DEVICE F inal Result Performing Organization Address [facility]/[place] [address] [place] [address] * POCT glucose (03/23/2024 1:48 PM CDT) Glucose, POC 111 70 - 199 mg/dL Blood 03/23/2024 1:48 PM CDT 03/23/2024 1:48 PM CDT Ernie Baldwin MD LAB POCT ORDERABLES - DEVICE F inal Result Performing Organization Address [facility]/ZIP Co de Phone Number ORI STODDARD [address] [place] [address] * eGFR (03/23/2024 1:00 PM CDT) eGFR >90 >=60 mL/min/1. 73 m2 Comment: Interpretive Data Reference Interval Normal ?>/= 90 mL/min/1.73m2 Mildly decreased* ? 60 - 89 mL/min/1.73m2 Mildly to moderately decreased ?45 - 59 mL/min/1.73m2 Moderately to severely decreased ??30 - 44 mL/min/1.73m2 Severely decreased ?15 - 29 mL/min/1.73m2 Kidney Failure ?< 15 ??mL/min/1.73m2 *Relative to young adult level Estimated glomerular filtration rate is determined by the 2020 CKD-EPI equation recommended by the National Kidney Foundation (A Unifying Approach to GFR Estimation: Recommendations of the NKF-ASK Task Force on Reassessing the Inclusion of Race in Diagnosing Kidney Disease, JASN 2020). The CKD-EPI equation should not be used for patients with unstable renal function and has not been validated in children and those over 70. Current interpretive data was last reviewed 2021. Blood 03/23/2024 1:00 PM CDT 03/23/2024 1:14 PM CDT Ernie Baldwin MD LAB BLOOD ORDERABLES Final Res ult Performing Organization Address City/[facility]/ZIP Co de Phone Number ORI STODDARD [address] Department [address] [place], [place] [phone] * Magnesium (03/23/2024 1:00 PM CDT) Magnesium 1.7 1.4 - 2.5 mg/dL Blood 03/23/2024 1:00 PM CDT 03/23/2024 1:14 PM CDT Ernie Baldwin MD LAB BLOOD ORDERABLES Final Res ult Performing Organization Address [facility] Co de Phone Number ORI STODDARD [address] [place] [address] * (ABNORMAL) CBC without differential (03/23/2024 1:00 PM CDT) Pathologist [facility] WBC 9.9 3.8 - 9.9 K/cumm Hgb 7.1(L) 13.0 - 17.5 g/dL [facility] Hct 20.0(L) 38.9 - 50.3 % [facility] Plt 57(L) 150 - 400 K/cumm [facility] Comment:No clot detected in sample. MPV 10.2 9.1 - 12.3 fL [facility] RBC 2.35(L) 4.30 - 5.80 M/cumm [facility] MCV 85.1 81.3 - 96.4 fL [facility] MCH 30.2 27.1 - 33.3 pg [facility] MCHC 35.5 32.3 - 35.7 g/dL [facility] RDW CV 13.5 11.1 - 14.9 % [facility] RDW SD 41.7 35.7 - 48.1 fL [facility] NRBC abs 0.00 0.00 - 0.01 K/cumm [facility] Blood 03/23/2024 1:00 PM CDT 03/23/2024 1:14 PM CDT Ernie Baldwin MD LAB BLOOD ORDERABLES Final Res ult Performing Organization Address [facility]/ZIP Co de Phone Number ORI RICHI [address] [place] [address] * (ABNORMAL) Basic metabolic panel (03/23/2024 1:00 PM CDT) Sodium 141 135 - 145 mmol/L Potassium, pl 3.8 3.3 - 4.9 mmol/L [facility] Chloride 114(H) 97 - 110 mmol/L [facility] CO2 21(L) 22 - 32 mmol/L [facility] Anion gap 6 2 - 15 mmol/L [facility] BUN 15 6 - 25 mg/dL [facility] Creatinine 0.59(L) 0.80 - 1.30 mg/dL [facility] Glucose 97 70 - 199 mg/dL [facility] Comment: Interpretive Data Fasting glucose >/= 126 mg/dl is diagnostic for diabetes. ?? Fasting is defined as no caloric intake for at least 8 hours. Fasting glucose between 100 mg/dl to 125 mg/dl is diagnostic of prediabetes. In a patient with classic symptoms of hyperglycemia or hyperglycemic crisis, a random glucose >/= 200 mg/dl is diagnostic for diabetes. In the absence of unequivocal hyperglycemia, results should be confirmed by repeat testing. The classification and Diagnosis of Diabetes Diabetes Care 2021; 46: S19-S40. Current interpretive data was last revised 2022. Calcium 7.3(L) 8.5 - 10.3 mg/dL [facility] Blood 03/23/2024 1:00 PM CDT 03/23/2024 1:14 PM CDT Ernie Baldwin MD LAB BLOOD ORDERABLES Final Res ult Performing Organization Address [facility]/ZIP Co de Phone Number [facility] [address] Department [place] [address] * POCT glucose (03/23/2024 11:08 AM CDT) Glucose, POC 122 70 - 199 mg/dL Blood 03/23/2024 11:0 8 AM CDT 03/23/2024 11:08 AM CDT Ernie Baldwin MD LAB POCT ORDERABLES - DEVICE F inal Result Performing Organization Address [facility] de Phone Number ORI STODDARD [address] [facility] [place] [employer] [place] [address] * (ABNORMAL) Blood gas, arterial (03/23/2024 9:09 AM CDT) pH, Art 7.36 7.35 - 7.45 PCO2, Arterial 43 35 - 45 mmHg [facility] PO2, Arterial 149(H) 83 - 108 mmHg [facility] HCO3 Art (Calculated) 23 20 - 30 mmol/L [facility] BE, art -1 mmol/L [facility] Comment: Interpretive Data No Reference Range Established Current Interpretive Data was last revised on 2017 O2 Sat Art (Measured) 99(H) 90 - 95 % [facility] Blood 03/23/2024 9:09 AM CDT 03/23/2024 9:21 AM CDT Ernie Baldwin MD LAB BLOOD ORDERABLES Final Res ult Performing Organization Address [facility] de Phone Number ORI STODDARD [address] [address] [facility] [place] [address] * POCT glucose (03/23/2024 9:00 AM CDT) Glucose, POC 106 70 - 199 mg/dL Blood 03/23/2024 9:00 AM CDT 03/23/2024 9:00 AM CDT Ernie Baldwin MD LAB POCT ORDERABLES - DEVICE F inal Result Performing Organization Address [facility] de Phone Number ORI [address] [address] [facility] [place] [address] * Critical Care (03/23/2024 7:44 AM CDT) Narrative Dequan Keller MD - 03/23/2024 7:44 AM CDT Hiren Ferrell PA ? 03/23/2024 ??3:38 PM Critical Care Performed by: Hiren Ferrell PA Authorized by: Hiren Ferrell PA ?? CRITICAL CARE: ??Team: ??CHNE ??Shift: ??AM ??Level of Billing: ??Critical Care ??My time spent with this patient was 75 minutes: Critical Provider Statement: I have seen and examined the patient on this day of service. I have reviewed and confirmed the history, physical exam, laboratory and radiologic data as documented in the signed ICU note. I have reviewed and discussed my treatment plan with the ICU team and other medical/bridal stylist sales consultant staff, making frequent assessments and decisions regarding this patient's complex medical care. Critical Care time was exclusive of time spent performing separately billed procedures, treating other patients, and teaching. This time was in addition to and separate from critical care provided by other practitioners in my group on this day of service. Critical Care was necessary to treat or prevent imminent or life-threatening deterioration of the following conditions: ? I spent time reviewing and interpreting data from bedside monitors, laboratory results, and imaging, I spent time discussing the management of this critically ill patient with consultants and the medical staff and I spent time documenting in the medical record Hiren VIDALES IN CLINIC/BEDSIDE ORDERABLES Final Result * ECG 12 lead (03/23/2024 7:29 AM CDT) 03/23/2024 7:29 AM CDT Narrative [facility] - 03/23/2024 8:52 AM CDT Vent Rate: 69 bpm RR Interval: 858 msec NV Interval: 158 msec QRS Duration: 92 msec QT Interval: 377 msec QTC Interval: 397 msec P-R-T [place]: 65 - 59 - 54 degrees IMPRESSION: SINUS RHYTHM ST-elevation inferior and lateral leads, consider early repolarization, pericarditis injury When compared to March 18, [address]-elevation inferior leads has increased Electronically Signed By: Dr. Deedee Dejesus [facility] Ernie Baldwin MD ECG ORDERABLES Final Result [facility] * POCT glucose (03/23/2024 6:23 AM CDT) Glucose, POC 138 70 - 199 mg/dL Blood 03/23/2024 6:23 AM CDT 03/23/2024 6:23 AM CDT Ernie Baldwin MD LAB POCT ORDERABLES - DEVICE F inal Result Performing Organization Address [facility] Co de Phone Number ORI STODDARD [address] [facility] [place] [address] * POCT glucose (03/23/2024 4:25 AM CDT) Glucose, POC 129 70 - 199 mg/dL Blood 03/23/2024 4:25 AM CDT 03/23/2024 4:25 AM CDT Ernie Baldwin MD LAB POCT ORDERABLES - DEVICE F inal Result Performing Organization Address [facility] de Phone Number ORI STODDARD [address] [place] [address] * POCT glucose (03/23/2024 3:28 AM CDT) Glucose, POC 102 70 - 199 mg/dL Blood 03/23/2024 3:28 AM CDT 03/23/2024 3:28 AM CDT Ernie Baldwin MD LAB POCT ORDERABLES - DEVICE F inal Result Performing Organization Address [facility] [place] [address] [place] [address] * XR Chest 1 View - in AM (03/23/2024 3:17 AM CDT) Anatomical Region Laterality Modality Body, Chest N/A Computed Radiogr aphy 03/23/2024 9:21 AM CDT Impressions 03/23/2024 9:21 AM CDT No change since the last study. Electronically signed by: Hamzah Mackey M.D. Narrative 03/23/2024 9:21 AM CDT EXAMINATION: XR CHEST 1 VIEW HISTORY: The patient is a 58-year-old male who presents with a right effusion. Comparison made with the previous study dated 03/22/2024. TECHNIQUE: AP portable view of the chest. FINDINGS: Right effusion noted. ??Unchanged satisfactory position of the endotracheal tube, nasogastric tube and retracted Overgaard-Stevie catheter. Heart not enlarged. ??No failure. ??No focal consolidation. Procedure Note Hamzah Mackey MD - 03/23/2024 EXAMINATION: XR CHEST 1 VIEW HISTORY: The patient is a 58-year-old male who presents with a right effusion. Comparison made with the previous study dated 03/22/2024. TECHNIQUE: AP portable view of the chest. FINDINGS: Right effusion noted. Unchanged satisfactory position of the endotracheal tube, nasogastric tube and retracted Overgaard-Stevie catheter. Heart not enlarged. No failure. No focal consolidation. IMPRESSION: No change since the last study. Electronically signed by: Hamzah Mackey M.D. Ernie Baldwin MD IMG XR PROCEDURES Final Result * POCT glucose (03/23/2024 2:20 AM CDT) Glucose, POC 125 70 - 199 mg/dL Blood 03/23/2024 2:20 AM CDT 03/23/2024 2:20 AM CDT Ernie Baldwin MD LAB POCT ORDERABLES - DEVICE F inal Result [facility] [address] [place] [address] * Oxyhemoglobin, pulmonary artery (03/23/2024 2:18 AM CDT) Oxyhemoglobin, PA 60.2 % Comment: Interpretive Data No reference range established. Current interpretive data was last revised 2019. Blood 03/23/2024 2:18 AM CDT 03/23/2024 2:19 AM CDT Ernie Baldwin MD LAB BLOOD ORDERABLES Final Res ult Performing Organization Address [facility] Co de Phone Number ORI STODDARD [address] [place] [address] * eGFR (03/23/2024 2:12 AM CDT) eGFR >90 >=60 mL/min/1. 73 m2 Comment: Interpretive Data Reference Interval Normal ?>/= 90 mL/min/1.73m2 Mildly decreased* ? 60 - 89 mL/min/1.73m2 Mildly to moderately decreased ?45 - 59 mL/min/1.73m2 Moderately to severely decreased ??30 - 44 mL/min/1.73m2 Severely decreased ?15 - 29 mL/min/1.73m2 Kidney Failure ?< 15 ??mL/min/1.73m2 *Relative to young adult level Estimated glomerular filtration rate is determined by the 2020 CKD-EPI equation recommended by the National Kidney Foundation (A Unifying Approach to GFR Estimation: Recommendations of the NKF-ASK Task Force on Reassessing the Inclusion of Race in Diagnosing Kidney Disease, JASN 2020). The CKD-EPI equation should not be used for patients with unstable renal function and has not been validated in children and those over 70. Current interpretive data was last reviewed 2021. Blood 03/23/2024 2:12 AM CDT 03/23/2024 2:20 AM CDT Ernie Baldwin MD LAB BLOOD ORDERABLES Final Res ult Performing Organization Address [facility] Co de Phone Number ORI STODDARD [address] [address] [place], [place] [id number] * (ABNORMAL) Basic metabolic panel (03/23/2024 2:12 AM CDT) Sodium 143 135 - 145 mmol/L Potassium, pl 4.5 3.3 - 4.9 mmol/L C[facility]ER Chloride 113(H) 97 - 110 mmol/L [facility] CH CO2 22 22 - 32 mmol/L [facility] CH Anion gap 8 2 - 15 mmol/L [facility] CH BUN 15 6 - 25 mg/dL [facility] CH Creatinine 0.74(L) 0.80 - 1.30 mg/dL [facility] CH Glucose 121 70 - 199 mg/dL [facility]ER Comment: Interpretive Data Fasting glucose >/= 126 mg/dl is diagnostic for diabetes. ?? Fasting is defined as no caloric intake for at least 8 hours. Fasting glucose between 100 mg/dl to 125 mg/dl is diagnostic of prediabetes. In a patient with classic symptoms of hyperglycemia or hyperglycemic crisis, a random glucose >/= 200 mg/dl is diagnostic for diabetes. In the absence of unequivocal hyperglycemia, results should be confirmed by repeat testing. The classification and Diagnosis of Diabetes Diabetes Care 2021; 46: S19-S40. Current interpretive data was last revised 2022. Calcium 9.1 8.5 - 10.3 mg/dL [facility] Blood 03/23/2024 2:12 AM CDT 03/23/2024 2:19 AM CDT Ernie Baldwin MD LAB BLOOD ORDERABLES Final Res ult Performing Organization Address [facility] Co de Phone Number [facility] [phone] [address] [place] [address] * Magnesium (03/23/2024 2:12 AM CDT) Magnesium 1.9 1.4 - 2.5 mg/dL Blood 03/23/2024 2:12 AM CDT 03/23/2024 2:19 AM CDT Ernie Baldwin MD LAB BLOOD ORDERABLES Final Res ult Performing Organization Address [facility] Co de Phone Number ORI STODDARD [address] [address] [facility] [place] [address] * (ABNORMAL) CBC without differential (03/23/2024 2:12 AM CDT) WBC 14.5(H) 3.8 - 9.9 K/cumm Hgb 9.5(L) 13.0 - 17.5 g/dL [facility] Hct 27.0(L) 38.9 - 50.3 % [facility] Plt 96(L) 150 - 400 K/cumm [facility] MPV 10.2 9.1 - 12.3 fL [facility] RBC 3.14(L) 4.30 - 5.80 M/cumm [facility] MCV 86.0 81.3 - 96.4 fL [facility] MCH 30.3 27.1 - 33.3 pg [facility] MCHC 35.2 32.3 - 35.7 g/dL [facility] RDW CV 13.4 11.1 - 14.9 % [facility] RDW SD 42.0 35.7 - 48.1 fL [facility] NRBC abs 0.00 0.00 - 0.01 K/cumm [facility] Blood 03/23/2024 2:12 AM CDT 03/23/2024 2:19 AM CDT Ernie Baldwin MD LAB BLOOD ORDERABLES Final Res ult Performing Organization Address [facility] Co de Phone Number ORI [address] [facility] [place] [address] * POCT glucose (03/23/2024 1:16 AM CDT) Glucose, POC 138 70 - 199 mg/dL Blood 03/23/2024 1:16 AM CDT 03/23/2024 1:16 AM CDT Ernie Baldwin MD LAB POCT ORDERABLES - DEVICE F inal Result Performing Organization Address [facility] Co de Phone Number ORI STODDARD [phone] [address] [facility] [place] [address] * POCT glucose (03/23/2024 12:05 AM CDT) Glucose, POC 139 70 - 199 mg/dL Blood 03/23/2024 12:0 5 AM CDT 03/23/2024 12:05 AM CDT Ernie Baldwin MD LAB POCT ORDERABLES - DEVICE F inal Result Performing Organization Address City/[facility]/ZIP Co de Phone Number ORI [address] [address] [facility] [place] [address] * (ABNORMAL) Protime-INR (03/22/2024 11:32 PM CDT) PT 15.4(H) 9.7 - 13.0 sec INR 1.42(H) 0.90 - 1.20 ORI STODDARD Comment: Interpretive data Oral anticoagulant therapeutic ranges: Venous thromboembolism prophylaxis or treatment: 2.0-3.0 CARDIOLOGY Standard range: 2.0-3.0 High-intensity range: 2.5-3.5 Refer to indication-specific guidelines for appropriate target ranges for prosthetic heart valve replacement. Current interpretive data was last revised on 2019. Blood 03/22/2024 11:3 2 PM CDT 03/22/2024 11:35 PM CDT Marlo Portillo NP LAB BLOOD ORDERABLES Fi nal Result ORI [address] [address] [facility] [place] [address] * Fibrinogen (03/22/2024 11:32 PM CDT) Fibrinogen 236 170 - 400 mg/dL Blood 03/22/2024 11:3 2 PM CDT 03/22/2024 11:35 PM CDT Marlo Portillo NP LAB BLOOD ORDERABLES Fi nal Result Performing Organization Address City/[facility]/ZIP Co de Phone Number ORI STODDARD [phone] [address] [place] [address] * POCT glucose (03/22/2024 11:09 PM CDT) Glucose, POC 124 70 - 199 mg/dL Blood 03/22/2024 11:0 9 PM CDT 03/22/2024 11:09 PM CDT us Ernie Baldwin MD LAB POCT ORDERABLES - DEVICE F inal Result Performing Organization Address [facility] Co de Phone Number ORI STODDARD [address] [address] [place] [address] * Critical Care (03/22/2024 10:40 PM CDT) Narrative Carlos Alberto Sandoval MD - 03/22/2024 10:40 PM CDT Marlo Portillo NP ? 03/23/2024 ??5:34 AM Critical Care Performed by: Marlo Portillo NP Authorized by: Marlo Portillo NP ?? CRITICAL CARE: ??Team: ??CHNE ??Shift: ??PM ??Level of Billing: ??Critical Care ??My time spent with this patient was 105 minutes: Critical Provider Statement: I have seen and examined the patient on this day of service. I have reviewed and confirmed the history, physical exam, laboratory and radiologic data as documented in the signed ICU note. I have reviewed and discussed my treatment plan with the ICU team and other medical/bridal stylist sales consultant staff, making frequent assessments and decisions regarding this patient's complex medical care. Critical Care time was exclusive of time spent performing separately billed procedures, treating other patients, and teaching. This time was in addition to and separate from critical care provided by other practitioners in my group on this day of service. Critical Care was necessary to treat or prevent imminent or life-threatening deterioration of the following conditions: ? I spent time reviewing and interpreting data from bedside monitors, laboratory results, and imaging, I spent time documenting in the medical record and I spent time discussing the management of this critically ill patient with consultants and the medical staff Marlo Portillo PIPE SMOKER MACHINE OPERATOR IN CLINIC/BEDSIDE ORDER [place] Final Result * POCT glucose (03/22/2024 10:15 PM CDT) Glucose, POC 137 70 - 199 mg/dL Blood 03/22/2024 10:1 5 PM CDT 03/22/2024 10:15 PM CDT Ernie Baldwin MD LAB POCT ORDERABLES - DEVICE F inal Result Performing Organization Address [facility] Co de Phone Number ORI STODDARD [phone] [address] [place] [address] * Oxyhemoglobin, pulmonary artery (03/22/2024 9:51 PM CDT) Oxyhemoglobin, PA 56.4 % Comment: Interpretive Data No reference range established. Current interpretive data was last revised 2019. Blood 03/22/2024 9:51 PM CDT 03/22/2024 9:54 PM CDT Ernie Baldwin MD LAB BLOOD ORDERABLES Final Res ult Performing Organization Address [facility] Co de Phone Number ORI [address] [address] [place] [address] * XR Chest 1 Vw Portable (03/22/2024 9:48 PM CDT) Anatomical Region Laterality Modality Body, Chest N/A Computed Radiogr aphy 03/23/2024 8:18 AM CDT Impressions 03/23/2024 8:18 AM CDT Suspicion of a right effusion. Electronically signed by: Hamzah Mackey M.D. Narrative 03/23/2024 8:18 AM CDT EXAMINATION: XR CHEST 1 VIEW HISTORY: The patient is a 58-year-old male who presents with increased output from the chest tube. ??Comparison made with the previous study dated 03/22/2024. TECHNIQUE: AP portable view of the chest. FINDINGS: There is haziness of the right lung compared to the left, suggestive of layering out of a right pleural effusion in the dependent portion of the right pleural cavity. ??Left lung clear. ??Heart not enlarged. Endotracheal and nasogastric tubes in unchanged good position. ??The tip of the Overgaard-Stevie catheter is in the undivided main pulmonary artery. Procedure Note Hamzah Mackey MD - 03/23/2024 EXAMINATION: XR CHEST 1 VIEW HISTORY: The patient is a 58-year-old male who presents with increased output from the chest tube. Comparison made with the previous study dated 03/22/2024. TECHNIQUE: AP portable view of the chest. FINDINGS: There is haziness of the right lung compared to the left, suggestive of layering out of a right pleural effusion in the dependent portion of the right pleural cavity. Left lung clear. Heart not enlarged. Endotracheal and nasogastric tubes in unchanged good position. The tip of the Overgaard-Stevie catheter is in the undivided main pulmonary artery. IMPRESSION: Suspicion of a right effusion. Electronically signed by: Hamzah Mackey M.D. Ernie Baldwin MD IMG XR PROCEDURES Final Result * (ABNORMAL) Calcium, ionized, whole blood (03/22/2024 9:47 PM CDT) Ca, ionized, bld 4.46(L) 4.50 - 5.10 mg/dL Blood 03/22/2024 9:47 PM CDT 03/22/2024 10:22 PM CDT Ernie Baldwin MD LAB BLOOD ORDERABLES Final Res ult ORI STODDARD [address] [place] [address] * eGFR (03/22/2024 9:47 PM CDT) eGFR >90 >=60 mL/min/1. 73 m2 Comment: Interpretive Data Reference Interval Normal ?>/= 90 mL/min/1.73m2 Mildly decreased* ? 60 - 89 mL/min/1.73m2 Mildly to moderately decreased ?45 - 59 mL/min/1.73m2 Moderately to severely decreased ??30 - 44 mL/min/1.73m2 Severely decreased ?15 - 29 mL/min/1.73m2 Kidney Failure ?< 15 ??mL/min/1.73m2 *Relative to young adult level Estimated glomerular filtration rate is determined by the 2020 CKD-EPI equation recommended by the National Kidney Foundation (A Unifying Approach to GFR Estimation: Recommendations of the NKF-ASK Task Force on Reassessing the Inclusion of Race in Diagnosing Kidney Disease, JASN 2020). The CKD-EPI equation should not be used for patients with unstable renal function and has not been validated in children and those over 70. Current interpretive data was last reviewed 2021. Blood 03/22/2024 9:47 PM CDT 03/22/2024 9:49 PM CDT us Ernie Baldwin MD LAB BLOOD ORDERABLES Final Res ult [facility] [id number] [address] [place] [address] * (ABNORMAL) Blood gas, arterial (03/22/2024 9:47 PM CDT) pH, Art 7.38 7.35 - 7.45 PCO2, Arterial 40 35 - 45 mmHg [facility] PO2, Arterial 161(H) 83 - 108 mmHg [facility] HCO3 Art (Calculated) 24 20 - 30 mmol/L [facility] CH BE, art -1 mmol/L [facility] Comment: Interpretive Data No Reference Range Established Current Interpretive Data was last revised on 2017 O2 Sat Art (Measured) 98(H) 90 - 95 % [facility] Blood 03/22/2024 9:47 PM CDT 03/22/2024 9:48 PM CDT Ernie Baldwin MD LAB BLOOD ORDERABLES Final Res ult Performing Organization Address [facility] Co de Phone Number ORI STODDARD [phone] [address] [place] [address] * Lactate (03/22/2024 9:47 PM CDT) Lactate 0.9 0.7 - 2.0 mmol/L Blood 03/22/2024 9:47 PM CDT 03/22/2024 9:48 PM CDT Ernie Baldwin MD LAB BLOOD ORDERABLES Final Res ult Performing Organization Address [facility] de Phone Number ORI STODDARD [address] [address] [place] [address] * (ABNORMAL) CBC without differential (03/22/2024 9:47 PM CDT) WBC 12.8(H) 3.8 - 9.9 K/cumm Hgb 9.3(L) 13.0 - 17.5 g/dL [facility] Hct 26.4(L) 38.9 - 50.3 % [facility] Plt 101(L) 150 - 400 K/cumm [facility] MPV 10.0 9.1 - 12.3 fL [facility] RBC 3.04(L) 4.30 - 5.80 M/cumm [facility] MCV 86.8 81.3 - 96.4 fL [facility] MCH 30.6 27.1 - 33.3 pg [facility] MCHC 35.2 32.3 - 35.7 g/dL [facility] RDW CV 13.5 11.1 - 14.9 % [facility] RDW SD 42.7 35.7 - 48.1 fL [facility] NRBC abs 0.00 0.00 - 0.01 K/cumm [facility] Blood 03/22/2024 9:47 PM CDT 03/22/2024 9:49 PM CDT Ernie Baldwin MD LAB BLOOD ORDERABLES Final Res ult Performing Organization Address [facility] Co de Phone Number ORI STODDARD [address] [address] [facility] [place] [address] * Magnesium (03/22/2024 9:47 PM CDT) Magnesium 2.2 1.4 - 2.5 mg/dL Blood 03/22/2024 9:47 PM CDT 03/22/2024 9:49 PM CDT Ernie Baldwin MD LAB BLOOD ORDERABLES Final Res ult Performing Organization Address [facility] de Phone Number ORI [address] [address] [place] [address] * (ABNORMAL) Basic metabolic panel (03/22/2024 9:47 PM CDT) Sodium 145 135 - 145 mmol/L Potassium, pl 4.6 3.3 - 4.9 mmol/L [facility] Chloride 114(H) 97 - 110 mmol/L [facility] CO2 22 22 - 32 mmol/L [facility] Anion gap 9 2 - 15 mmol/L [facility] BUN 15 6 - 25 mg/dL [facility] Creatinine 0.85 0.80 - 1.30 mg/dL [facility] Glucose 143 70 - 199 mg/dL [facility] Comment: Interpretive Data Fasting glucose >/= 126 mg/dl is diagnostic for diabetes. ?? Fasting is defined as no caloric intake for at least 8 hours. Fasting glucose between 100 mg/dl to 125 mg/dl is diagnostic of prediabetes. In a patient with classic symptoms of hyperglycemia or hyperglycemic crisis, a random glucose >/= 200 mg/dl is diagnostic for diabetes. In the absence of unequivocal hyperglycemia, results should be confirmed by repeat testing. The classification and Diagnosis of Diabetes Diabetes Care 202; 46: S19-S40. Current interpretive data was last revised 2022. Calcium 7.4(L) 8.5 - 10.3 mg/dL ORI Blood 03/22/2024 9:47 PM CDT 03/22/2024 9:49 PM CDT Ernie Baldwin MD LAB BLOOD ORDERABLES Final Res ult Performing Organization Address [facility] Co de Phone Number [facility] [address] [address] [facility] [place] [address] * Transfuse RBC (03/22/2024 9:21 PM CDT) Blood Ernie Baldwin MD BLOOD TRANSFUSION ORDERABLES F inal Result Performing Organization Address [facility] Phone Number ORI [address] [address] [facility] [place] [address] * Transfuse RBC: 1 Units (03/22/2024 9:21 PM CDT) Blood Ernie Baldwin MD BLOOD TRANSFUSION ORDERABLES F inal Result * POCT glucose (03/22/2024 9:11 PM CDT) Glucose, POC 165 70 - 199 mg/dL Blood 03/22/2024 9:11 PM CDT 03/22/2024 9:11 PM CDT Ernie Baldwin MD LAB POCT ORDERABLES - DEVICE F inal Result Performing Organization Address [facility] de Phone Number [facility] [address] [address] [facility] [place] [address] * Transfuse plasma Standard plasma (03/22/2024 8:59 PM CDT) Blood Ernie Baldwin MD BLOOD TRANSFUSION ORDERABLES F inal Result Performing Organization Address [facility] Co de Phone Number ORI [address] [address] [facility] [place] [address] * Transfuse plasma: 1 Units Standard plasma (03/22/2024 8:59 PM CDT) Blood Ernie Baldwin MD BLOOD TRANSFUSION ORDERABLES F inal Result * POCT glucose (03/22/2024 8:04 PM CDT) [facility] Signature Glucose, POC 171 70 - 199 mg/dL Blood 03/22/2024 8:04 PM CDT 03/22/2024 8:04 PM CDT Ernie Baldwin MD LAB POCT ORDERABLES - DEVICE F inal Result Performing Organization Address [facility] Co de Phone Number ORI [address] [address] [place] [address] * Transfuse RBC (03/22/2024 7:36 PM CDT) Blood Ernie Baldwin MD BLOOD TRANSFUSION ORDERABLES F inal Result Performing Organization Address [facility] Co de Phone Number ORI [address] [address] [place] [address] * Transfuse RBC: 1 Units (03/22/2024 7:36 PM CDT) Blood Ernie Baldwin MD BLOOD TRANSFUSION ORDERABLES F inal Result * Transfuse cryoprecipitate (pooled units) (03/22/2024 7:00 PM CDT) Blood Ernie Baldwin MD BLOOD TRANSFUSION ORDERABLES F inal Result Performing Organization Address City/[facility]/ZIP Co de Phone Number BANDARRIO [address] [address] [place] [address] * Transfuse cryoprecipitate (pooled units): 2 Units (03/22/2024 7:00 PM CDT) Blood Ernie Baldwin MD BLOOD TRANSFUSION ORDERABLES F inal Result * POCT glucose (03/22/2024 6:49 PM CDT) Glucose, POC 169 70 - 199 mg/dL Blood 03/22/2024 6:49 PM CDT 03/22/2024 6:49 PM CDT Ernie Baldwin MD LAB POCT ORDERABLES - DEVICE F inal Result Performing Organization Address [facility] Co de Phone Number [facility] [address] [address] [facility] [place] [address] * Transfuse cryoprecipitate (pooled units) (03/22/2024 6:46 PM CDT) Blood Ernie Baldwin MD BLOOD TRANSFUSION ORDERABLES F inal Result Performing Organization Address [facility] Co de Phone Number ORI [address] [facility] [place] [address] * POCT glucose (03/22/2024 6:01 PM CDT) Glucose, POC 151 70 - 199 mg/dL Blood 03/22/2024 6:01 PM CDT 03/22/2024 6:01 PM CDT Ernie Baldwin MD LAB POCT ORDERABLES - DEVICE F inal Result Performing Organization Address [facility] Co de Phone Number [facility] [address] [address] [facility] [place] [address] * Prepare cryoprecipitate (pooled units): 2 Units (03/22/2024 5:40 PM CDT) Product code [id number] [facility] CH Unit Number [id number] [facility] CH Product Blood Type APOS [facility] CH Dispense Status PRESUMED TRANSFUSED [facility] CH Product code [id number] Unit Number [id number] [facility] CH Product Blood Type APOS C[facility]ER CH Dispense Status PRESUMED TRANSFUSED [facility] CH Blood (Blood, Venous) 03/22/2024 5:40 PM CDT Narrative C[facility]ER CH - 03/22/2024 10:15 PM CDT Cryo # of [id number] Reasons:-Fibrinogen <= 150 mg/dL AND active hemorrhage} Ernie Baldwin MD BLOOD BANK PRODUCT ORDERABLES Final Result Performing Organization Address [facility] de Phone Number ORI STODDARD [address] [place] [address] * (ABNORMAL) Blood gas, arterial (03/22/2024 5:35 PM CDT) Pathologist [facility] pH, Art 7.37 7.35 - 7.45 PCO2, Arterial 41 35 - 45 mmHg [facility] CH PO2, Arterial 172(H) 83 - 108 mmHg [facility] CH HCO3 Art (Calculated) 23 20 - 30 mmol/L [facility] CH BE, art -2 mmol/L [facility] CH Comment: Interpretive Data No Reference Range Established Current Interpretive Data was last revised on 2017 O2 Sat Art (Measured) 99(H) 90 - 95 % [facility] CH Blood 03/22/2024 5:35 PM CDT 03/22/2024 5:38 PM CDT Ernie Baldwin MD LAB BLOOD ORDERABLES Final Res ult Performing Organization Address [facility] Co de Phone Number ORI [address] [address] [facility] [address] [place] [address] * (ABNORMAL) CBC without differential (03/22/2024 5:35 PM CDT) Pathologist [facility] WBC 16.1(H) 3.8 - 9.9 K/cumm Hgb 8.0(L) 13.0 - 17.5 g/dL [facility] Hct 23.1(L) 38.9 - 50.3 % [facility] Plt 124(L) 150 - 400 K/cumm [facility] MPV 9.7 9.1 - 12.3 fL [facility] RBC 2.66(L) 4.30 - 5.80 M/cumm [facility] MCV 86.8 81.3 - 96.4 fL [facility] MCH 30.1 27.1 - 33.3 pg [facility] MCHC 34.6 32.3 - 35.7 g/dL [facility] RDW CV 13.8 11.1 - 14.9 % [facility] RDW SD 43.4 35.7 - 48.1 fL [facility] NRBC abs 0.00 0.00 - 0.01 K/cumm [facility] Blood 03/22/2024 5:35 PM CDT 03/22/2024 5:38 PM CDT Ernie Baldwin MD LAB BLOOD ORDERABLES Final Res ult Performing Organization Address [facility]/ZIP Co de Phone Number BANDARRIO STDODARD [address] [address] [facility] [address] [place] [address] * POCT glucose (03/22/2024 4:40 PM CDT) Pathologist [facility] Glucose, POC 137 70 - 199 mg/dL Blood 03/22/2024 4:40 PM CDT 03/22/2024 4:40 PM CDT Ernie Baldwin MD LAB POCT ORDERABLES - DEVICE F inal Result Performing Organization Address City/[facility]/ZIP Co de Phone Number ORI STODDARD [address] [facility] [employer] [place], [place] [id number] * eGFR (03/22/2024 3:11 PM CDT) Pathologist [facility] eGFR >90 >=60 mL/min/1. 73 m2 Comment: Interpretive Data Reference Interval Normal ?>/= 90 mL/min/1.73m2 Mildly decreased* ? 60 - 89 mL/min/1.73m2 Mildly to moderately decreased ?45 - 59 mL/min/1.73m2 Moderately to severely decreased ??30 - 44 mL/min/1.73m2 Severely decreased ?15 - 29 mL/min/1.73m2 Kidney Failure ?< 15 ??mL/min/1.73m2 *Relative to young adult level Estimated glomerular filtration rate is determined by the 2020 CKD-EPI equation recommended by the National Kidney Foundation (A Unifying Approach to GFR Estimation: Recommendations of the NKF-ASK Task Force on Reassessing the Inclusion of Race in Diagnosing Kidney Disease, JASN 2020). The CKD-EPI equation should not be used for patients with unstable renal function and has not been validated in children and those over 70. Current interpretive data was last reviewed 2021. Blood 03/22/2024 3:11 PM CDT 03/22/2024 3:16 PM CDT Ernie Baldwin MD LAB BLOOD ORDERABLES Final Res ult Performing Organization Address [facility] de Phone Number [facility] [address] [place] [address] * Magnesium (03/22/2024 3:11 PM CDT) Magnesium 2.4 1.4 - 2.5 mg/dL Blood 03/22/2024 3:11 PM CDT 03/22/2024 3:16 PM CDT Ernie Baldwin MD LAB BLOOD ORDERABLES Final Res ult Performing Organization Address [facility] de Phone Number B[place]ARRIO [address] [place] [address] * (ABNORMAL) Fibrinogen (03/22/2024 3:11 PM CDT) Fibrinogen 156(L) 170 - 400 mg/dL Blood 03/22/2024 3:11 PM CDT 03/22/2024 3:17 PM CDT Ernie Baldwin MD LAB BLOOD ORDERABLES Final Res ult Performing Organization Address [facility] Co de Phone Number ORI [address] [facility] [place] [address] * (ABNORMAL) Protime-INR (03/22/2024 3:11 PM CDT) PT 15.4(H) 9.7 - 13.0 sec INR 1.42(H) 0.90 - 1.20 ORI STODDARD Comment: Interpretive data Oral anticoagulant therapeutic ranges: Venous thromboembolism prophylaxis or treatment: 2.0-3.0 CARDIOLOGY Standard range: 2.0-3.0 High-intensity range: 2.5-3.5 Refer to indication-specific guidelines for appropriate target ranges for prosthetic heart valve replacement. Current interpretive data was last revised on 2019. Blood 03/22/2024 3:11 PM CDT 03/22/2024 3:17 PM CDT Ernie Baldwin MD LAB BLOOD ORDERABLES Final Res ult Performing Organization Address [facility] Co de Phone Number BANDARRIO [address] [facility] [address] [place] [address] * aPTT (03/22/2024 3:11 PM CDT) aPTT 35 28 - 38 sec Comment: Interpretive Data Heparin therapeutic range: 66.0 - 100.0 seconds. Range based on correlation with therapeutic heparin activity range of 0.3 - 0.7 Units/mL. Current interpretive data was last revised on 2023. Blood 03/22/2024 3:11 PM CDT 03/22/2024 3:17 PM CDT Ernie Baldwin MD LAB BLOOD ORDERABLES Final Res ult Performing Organization Address [facility] Co de Phone Number ORI STODDARD [address] [place] [address] * (ABNORMAL) Blood gas, arterial (03/22/2024 3:11 PM CDT) pH, Art 7.34(L) 7.35 - 7.45 PCO2, Arterial 45 35 - 45 mmHg [facility] PO2, Arterial 138(H) 83 - 108 mmHg [facility] HCO3 Art (Calculated) 23 20 - 30 mmol/L [facility] BE, art -1 mmol/L [facility] Comment: Interpretive Data No Reference Range Established Current Interpretive Data was last revised on 2017 O2 Sat Art (Measured) 99(H) 90 - 95 % [facility] Blood 03/22/2024 3:11 PM CDT 03/22/2024 3:16 PM CDT Ernie Baldwin MD LAB BLOOD ORDERABLES Final Res ult Performing Organization Address [facility] Co de Phone Number ORI STODDARD [address] [facility] [place] [address] * Calcium, ionized, whole blood (03/22/2024 3:11 PM CDT) Ca, ionized, bld 4.64 4.50 - 5.10 mg/dL Blood 03/22/2024 3:11 PM CDT 03/22/2024 3:16 PM CDT Ernie Baldwin MD LAB BLOOD ORDERABLES Final Res ult Performing Organization Address [facility] Co de Phone Number ORI STODDARD [address] [facility] [place] [address] * (ABNORMAL) Basic metabolic panel (03/22/2024 3:11 PM CDT) Sodium 143 135 - 145 mmol/L Potassium, pl 4.4 3.3 - 4.9 mmol/L [facility] Chloride 111(H) 97 - 110 mmol/L [facility] CH CO2 24 22 - 32 mmol/L [facility] CH Anion gap 8 2 - 15 mmol/L [facility] CH BUN 12 6 - 25 mg/dL [facility] Creatinine 0.80 0.80 - 1.30 mg/dL [facility] Comment:Icteric sample, test results may be affected. Glucose 137 70 - 199 mg/dL [facility] Comment: Interpretive Data Fasting glucose >/= 126 mg/dl is diagnostic for diabetes. ?? Fasting is defined as no caloric intake for at least 8 hours. Fasting glucose between 100 mg/dl to 125 mg/dl is diagnostic of prediabetes. In a patient with classic symptoms of hyperglycemia or hyperglycemic crisis, a random glucose >/= 200 mg/dl is diagnostic for diabetes. In the absence of unequivocal hyperglycemia, results should be confirmed by repeat testing. The classification and Diagnosis of Diabetes Diabetes Care 2021; 46: S19-S40. Current interpretive data was last revised 2022. Calcium 7.8(L) 8.5 - 10.3 mg/dL [facility] Blood 03/22/2024 3:11 PM CDT 03/22/2024 3:16 PM CDT us Ernie Baldwin MD LAB BLOOD ORDERABLES Final Res ult [facility] [address] Department [place] [address] * (ABNORMAL) CBC without differential (03/22/2024 3:11 PM CDT) WBC 14.0(H) 3.8 - 9.9 K/cumm Hgb 10.2(L) 13.0 - 17.5 g/dL [facility] Hct 28.5(L) 38.9 - 50.3 % [facility] Plt 121(L) 150 - 400 K/cumm [facility] MPV 9.7 9.1 - 12.3 fL [facility] RBC 3.33(L) 4.30 - 5.80 M/cumm [facility] MCV 85.6 81.3 - 96.4 fL [facility] MCH 30.6 27.1 - 33.3 pg [facility] MCHC 35.8(H) 32.3 - 35.7 g/dL [facility] RDW CV 13.6 11.1 - 14.9 % [facility] RDW SD 42.4 35.7 - 48.1 fL [facility] NRBC abs 0.00 0.00 - 0.01 K/cumm [facility] Blood 03/22/2024 3:11 PM CDT 03/22/2024 3:17 PM CDT Ernie Baldwin MD LAB BLOOD ORDERABLES Final Res ult Performing Organization Address [facility] Co de Phone Number BANDARRIO STODDARD [address] [place] [address] * POCT glucose (03/22/2024 2:03 PM CDT) [facility] Glucose, POC 114 70 - 199 mg/dL Blood 03/22/2024 2:03 PM CDT 03/22/2024 2:03 PM CDT Ernie Baldwin MD LAB POCT ORDERABLES - DEVICE F inal Result Performing Organization Address [facility] Co de Phone Number B[place]O [address] [employer] [place], [place] [id number] * Transfuse platelets (03/22/2024 1:07 PM CDT) Blood Ernie Baldwin MD BLOOD TRANSFUSION ORDERABLES F inal Result Performing Organization Address [facility] Co de Phone Number ORI STODDARD [address] [employer] [place], [place] [id number] * Transfuse platelets: 1 Units (03/22/2024 1:07 PM CDT) Blood Ernie Baldwin MD BLOOD TRANSFUSION ORDERABLES F inal Result * POCT glucose (03/22/2024 1:00 PM CDT) Glucose, POC 119 70 - 199 mg/dL Blood 03/22/2024 1:00 PM CDT 03/22/2024 1:00 PM CDT Ernie Baldwin MD LAB POCT ORDERABLES - DEVICE F inal Result ORI [address] [place] [address] * XR Chest 1 View (03/22/2024 12:48 PM CDT) Anatomical Region Laterality Modality Body, Chest N/A Computed Radiogr aphy 03/22/2024 1:19 PM CDT Impressions 03/22/2024 1:19 PM CDT Findings as described above. Electronically signed by: Hamzah Mackey M.D. Narrative 03/22/2024 1:19 PM CDT EXAMINATION: XR CHEST 1 VIEW HISTORY: The patient is a 58-year-old male who presents with aortic valve stenosis. ??Comparison made with the previous study dated 03/18/2024. TECHNIQUE: AP portable view of the chest. FINDINGS: Endotracheal and nasogastric tubes are in good position. ??The tip of a Overgaard-Stevie catheter is in the undivided main pulmonary artery. Borderline cardiomegaly with aortic atherosclerosis. ??No failure. Subsegmental atelectasis is seen in the lower half of the right lung with the remainder of the lungs being clear. Procedure Note Hamzah Mackey MD - 03/22/2024 EXAMINATION: XR CHEST 1 VIEW HISTORY: The patient is a 58-year-old male who presents with aortic valve stenosis. Comparison made with the previous study dated 03/18/2024. TECHNIQUE: AP portable view of the chest. FINDINGS: Endotracheal and nasogastric tubes are in good position. The tip of a Overgaard-Stevie catheter is in the undivided main pulmonary artery. Borderline cardiomegaly with aortic atherosclerosis. No failure. Subsegmental atelectasis is seen in the lower half of the right lung with the remainder of the lungs being clear. IMPRESSION: Findings as described above. Electronically signed by: Hamzah Mackey M.D. Ernie Baldwin MD IMG XR PROCEDURES Final Result * eGFR (03/22/2024 12:31 PM CDT) Pathologist [facility] eGFR >90 >=60 mL/min/1. 73 m2 Comment: Interpretive Data Reference Interval Normal ?>/= 90 mL/min/1.73m2 Mildly decreased* ? 60 - 89 mL/min/1.73m2 Mildly to moderately decreased ?45 - 59 mL/min/1.73m2 Moderately to severely decreased ??30 - 44 mL/min/1.73m2 Severely decreased ?15 - 29 mL/min/1.73m2 Kidney Failure ?< 15 ??mL/min/1.73m2 *Relative to young adult level Estimated glomerular filtration rate is determined by the 2020 CKD-EPI equation recommended by the National Kidney Foundation (A Unifying Approach to GFR Estimation: Recommendations of the NKF-ASK Task Force on Reassessing the Inclusion of Race in Diagnosing Kidney Disease, JASN 2020). The CKD-EPI equation should not be used for patients with unstable renal function and has not been validated in children and those over 70. Current interpretive data was last reviewed 2021. Blood 03/22/2024 12:3 1 PM CDT 03/22/2024 12:36 PM CDT Ernie Baldwin MD LAB BLOOD ORDERABLES Final Res ult ORI STODDARD [address] [facility] [place] [address] * (ABNORMAL) Magnesium (03/22/2024 12:31 PM CDT) Magnesium 2.7(H) 1.4 - 2.5 mg/dL Blood 03/22/2024 12:3 1 PM CDT 03/22/2024 12:36 PM CDT Ernie Baldwin MD LAB BLOOD ORDERABLES Final Res ult Performing Organization Address [facility] de Phone Number ORI STODDARD [address] [facility] [place] [address] * aPTT (03/22/2024 12:31 PM CDT) aPTT 33 28 - 38 sec Comment: Interpretive Data Heparin therapeutic range: 66.0 - 100.0 seconds. Range based on correlation with therapeutic heparin activity range of 0.3 - 0.7 Units/mL. Current interpretive data was last revised on 2023. Blood 03/22/2024 12:3 1 PM CDT 03/22/2024 12:36 PM CDT Ernie Baldwin MD LAB BLOOD ORDERABLES Final Res ult Performing Organization Address [facility] de Phone Number ORI STODDARD [address] [facility] [place] [address] * (ABNORMAL) Protime-INR (03/22/2024 12:31 PM CDT) PT 15.6(H) 9.7 - 13.0 sec INR 1.43(H) 0.90 - 1.20 ORI STODDARD Comment: Interpretive data Oral anticoagulant therapeutic ranges: Venous thromboembolism prophylaxis or treatment: 2.0-3.0 CARDIOLOGY Standard range: 2.0-3.0 High-intensity range: 2.5-3.5 Refer to indication-specific guidelines for appropriate target ranges for prosthetic heart valve replacement. Current interpretive data was last revised on 2019. Blood 03/22/2024 12:3 1 PM CDT 03/22/2024 12:36 PM CDT Ernie Bladwin MD LAB BLOOD ORDERABLES Final Res ult ORI STODDARD [address] [place] [address] * (ABNORMAL) CBC without differential (03/22/2024 12:31 PM CDT) WBC 10.8(H) 3.8 - 9.9 K/cumm Hgb 11.8(L) 13.0 - 17.5 g/dL [facility] Hct 33.2(L) 38.9 - 50.3 % [facility] Plt 85(L) 150 - 400 K/cumm [facility] MPV 9.5 9.1 - 12.3 fL [facility] RBC 3.88(L) 4.30 - 5.80 M/cumm [facility] MCV 85.6 81.3 - 96.4 fL [facility] MCH 30.4 27.1 - 33.3 pg [facility] MCHC 35.5 32.3 - 35.7 g/dL [facility] CH RDW CV 13.5 11.1 - 14.9 % [facility] RDW SD 41.8 35.7 - 48.1 fL [facility] NRBC abs 0.00 0.00 - 0.01 K/cumm [facility] Blood 03/22/2024 12:3 1 PM CDT 03/22/2024 12:36 PM CDT Ernie Baldwin MD LAB BLOOD ORDERABLES Final Res ult Performing Organization Address City/[facility]/ZIP Co de Phone Number ORI STODDARD [address] [place], [place] [id number] * (ABNORMAL) Blood gas, arterial (03/22/2024 12:31 PM CDT) pH, Art 7.37 7.35 - 7.45 PCO2, Arterial 42 35 - 45 mmHg [facility] CH PO2, Arterial 446(H) 83 - 108 mmHg [facility] CH HCO3 Art (Calculated) 23 20 - 30 mmol/L [facility] CH BE, art -1 mmol/L [facility] Comment: Interpretive Data No Reference Range Established Current Interpretive Data was last revised on 2017 O2 Sat Art (Measured) 100(H) 90 - 95 % [facility] CH Blood 03/22/2024 12:3 1 PM CDT 03/22/2024 12:34 PM CDT us Ernie Baldwin MD LAB BLOOD ORDERABLES Final Res ult [facility] [address] Department [place] [address] * (ABNORMAL) Basic metabolic panel (03/22/2024 12:31 PM CDT) Pathologist [facility] Sodium 141 135 - 145 mmol/L Potassium, pl 4.7 3.3 - 4.9 mmol/L [facility] Chloride 109 97 - 110 mmol/L [facility] CH CO2 23 22 - 32 mmol/L [facility] CH Anion gap 9 2 - 15 mmol/L [facility] BUN 12 6 - 25 mg/dL [facility] Creatinine 0.77(L) 0.80 - 1.30 mg/dL [facility] Glucose 134 70 - 199 mg/dL [facility] Comment: Interpretive Data Fasting glucose >/= 126 mg/dl is diagnostic for diabetes. ?? Fasting is defined as no caloric intake for at least 8 hours. Fasting glucose between 100 mg/dl to 125 mg/dl is diagnostic of prediabetes. In a patient with classic symptoms of hyperglycemia or hyperglycemic crisis, a random glucose >/= 200 mg/dl is diagnostic for diabetes. In the absence of unequivocal hyperglycemia, results should be confirmed by repeat testing. The classification and Diagnosis of Diabetes Diabetes Care 2021; 46: S19-S40. Current interpretive data was last revised 2022. Calcium 8.1(L) 8.5 - 10.3 mg/dL [facility] Blood 03/22/2024 12:3 1 PM CDT 03/22/2024 12:36 PM CDT Ernie Baldwin MD LAB BLOOD ORDERABLES Final Res ult Performing Organization Address [facility] Co de Phone Number ORI STODDARD [address] [facility] [place] [address] * POCT glucose (03/22/2024 12:30 PM CDT) Glucose, POC 120 70 - 199 mg/dL Blood 03/22/2024 12:3 0 PM CDT 03/22/2024 12:30 PM CDT Ernie Baldwin MD LAB POCT ORDERABLES - DEVICE F inal Result Performing Organization Address [facility] de Phone Number BANDARIRO STODDARD [address] [address] [place] [address] * Calcium, ionized, whole blood (03/22/2024 12:30 PM CDT) Ca, ionized, bld 4.74 4.50 - 5.10 mg/dL Blood 03/22/2024 12:3 0 PM CDT 03/22/2024 1:00 PM CDT Ernie Baldwin MD LAB BLOOD ORDERABLES Final Res ult Performing Organization Address [facility] Co de Phone Number ORI STODDARD [address] [facility] [place] [address] * (ABNORMAL) POC Blood Gas and Chemistries, Arterial - (03/22/2024 11:17 AM CDT) pH, Art POC 7.38 7.35 - 7.45 pCO2, Art POC 43 35 - 45 mmHg [facility] pO2, Art POC 417(H) 83 - 108 mmHg [facility] CH Na, POC 136 135 - 145 mmol/L [facility] K POC 5.1(H) 3.3 - 4.9 mmol/L [facility] Comment: Interpretive Data This method is not able to assess for hemolysis, which may falsely increase potassium concentrations. If further testing is needed to evaluate this result, consider in-laboratory plasma potassium. Current Interpretive Data was last revised on 2022. Ionized Ca, POC 4.50 4.50 - 5.10 mg/dL [facility] Glucose, POC 152 70 - 199 mg/dL [facility] Lactate, POC 0.7 0.7 - 2.0 mmol/L [facility] CH SO2 (jules) arterial 100(H) 90 - 95 % [facility] CH Total CO2, Art POC 27 21 - 30 mmol/L [facility] CH BE, art, POC 0 mmol/L [facility] HCO3, Art POC 25 20 - 30 mmol/L [facility] Hct, POC 31.0(L) 38.9 - 50.3 % [facility] CH Total Hb, POC 10.3(L) 13.0 - 17.5 g/dL [facility] Blood 03/22/2024 11:1 7 AM CDT 03/22/2024 11:17 AM CDT Ernie Baldwin MD LAB POCT ORDERABLES - DEVICE F inal Result ORI [address] [facility] Department [place] [address] * Critical Care (03/22/2024 11:16 AM CDT) Narrative Dequan Keller MD - 03/22/2024 11:16 AM CDT Albania Jones NP ? 03/22/2024 ??4:21 PM Critical Care Performed by: Albania Jones NP Authorized by: Albania Jones NP ?? CRITICAL CARE: ??Team: ??CHNE ??Shift: ??AM ??Level of Billing: ??Critical Care ??My time spent with this patient was 60 minutes: Critical Provider Statement: I have seen and examined the patient on this day of service. I have reviewed and confirmed the history, physical exam, laboratory and radiologic data as documented in the signed ICU note. I have reviewed and discussed my treatment plan with the ICU team and other medical/bridal stylist sales consultant staff, making frequent assessments and decisions regarding this patient's complex medical care. Critical Care time was exclusive of time spent performing separately billed procedures, treating other patients, and teaching. This time was in addition to and separate from critical care provided by other practitioners in my group on this day of service. Critical Care was necessary to treat or prevent imminent or life-threatening deterioration of the following conditions: ? I spent time reviewing and interpreting data from bedside monitors, laboratory results, and imaging, I spent time discussing the management of this critically ill patient with consultants and the medical staff and I spent time documenting in the medical record us Albania Jones NP IN CLINIC/BEDS CECILIO ORDERABLES Final Result * POC Activated Clotting Time, High Range (03/22/2024 11:15 AM CDT) Pathologist [facility] ACT 104 87 - 138 sec Blood 03/22/2024 11:1 5 AM CDT 03/22/2024 11:15 AM CDT Ernie Baldwin MD LAB BLOOD ORDERABLES Final Res ult [facility] [address] Department [place] [address] * (ABNORMAL) POC Blood Gas and Chemistries, Arterial - (03/22/2024 10:38 AM CDT) Pathologist [facility] pH, Art POC 7.33(L) 7.35 - 7.45 pCO2, Art POC 42 35 - 45 mmHg [facility] CH pO2, Art POC 229(H) 83 - 108 mmHg [facility] CH Na, POC 134(L) 135 - 145 mmol/L [facility] CH K POC 6.1(C) 3.3 - 4.9 mmol/L [facility] Comment: Interpretive Data This method is not able to assess for hemolysis, which may falsely increase potassium concentrations. If further testing is needed to evaluate this result, consider in-laboratory plasma potassium. Current Interpretive Data was last revised on 2022. Ionized Ca, POC 4.67 4.50 - 5.10 mg/dL [facility] Glucose, POC 160 70 - 199 mg/dL [facility] Lactate, POC 0.8 0.7 - 2.0 mmol/L [facility] CH SO2 (jules) arterial 100(H) 90 - 95 % [facility] CH Total CO2, Art POC 23 21 - 30 mmol/L [facility] CH BE, art, POC -4 mmol/L [facility] HCO3, Art POC 22 20 - 30 mmol/L [facility] Hct, POC 30.0(L) 38.9 - 50.3 % [facility] CH Total Hb, POC 10.1(L) 13.0 - 17.5 g/dL [facility] CH Blood 03/22/2024 10:3 8 AM CDT 03/22/2024 10:38 AM CDT Ernie Baldwin MD LAB POCT ORDERABLES - DEVICE F inal Result Performing Organization Address City/State/[facility] Co de Phone Number [address] Department of [place] [address] * Surgical pathology (03/22/2024 10:38 AM CDT) Tissue (Heart Valve) 03/22/2024 9:41 AM CDT Narrative PATHOLOGY CH - 03/25/2024 1:40 PM CDT EPIC results best viewed via link to PDF [facility] Department of Pathology [address] [place], [place] [id number] Note to Patients: This report may contain a detailed description of human tissue sent by a health care provider to the laboratory for pathologic evaluation. The content of this report is essential for diagnosis and may provide important critical findings. This information may be unfamiliar to patients to review without a medical professional present. It is advised that the patient review this report in the presence of a health care provider who can answer questions and explain the details. Final Report Patient Name: ??STEPHAN MADDENFer Address: ??[address] [place] [address], ??[place], [place] ??[address] Gender: ??M : ??1965 (Age: 58) Service: ??Cardiothoracic Location: ?? [facility] Hospital #: ??[id number] Patient Type: ??[facility] Accession # ?[id number] Taken: ??03/22/2024 Received: ??03/23/2024 Accessioned: ??03/23/2024 Reported: ??03/25/2024 Physician(s):Jazmine Roche M.D. Diagnosis: Heart valve, aortic valve, aortic valve replacement: ? - Dystrophic calcification, nodular fibrosis and myxoid degeneration, clinically aortic valve stenosis. Candy Price M.D. Report Electronically Reviewed and Signed Out By ??Candy Gray M.D. ??03/25/2024 13:40:34 Specimen(s) Received: A: Aortic valve leaflets Microscopic Description: Microscopic examination of the decalcified aortic valve shows heart valve with dystrophic calcification, myxoid degeneration and nodular fibrosis. ??There is no inflammatory component. Clinical History: Aortic valve stenosis Procedure: replcaement aortic valve Gross Description: Received in a single formalin filled container labeled with STEPHAN MADDEN and aortic valve leaflets .It is three, 2.8 and 2.9 cm cusp shaped semi-lunar heart valve leaflets. ??They are thickened nodular and calcified. ??Sections are decalcified. Represented in one cassette. Magdiel Rodriguez R.N., P.A./Kalee Field M.D. REPORT IMAGES AND SCANNED DOCUMENTS, IF INCLUDED, ONLY VIEWABLE IN PDF VERSION OF REPORT The performance characteristics of some immunohistochemical stains, fluorescence in-situ hybridization tests and immunophenotyping by flow cytometry cited in this report (if any) were determined by the Surgical Pathology Department at [facility] as part of an ongoing quality assurance supervisor chassis program and in compliance with federally mandated regulations drawn from the Clinical Laboratory Improvement Act of 1988 (CLIA '88). ??Some of these tests rely on the use of analyte specific reagents and are subject to specific labeling requirements by the US Food and Drug Administration. ??Such diagnostic tests may only be performed in a facility that is certified by the Department of Health and Human Services as a high complexity laboratory under CLIA '88. The FDA has determined that such clearance or approval is not necessary. ??This test is used for clinical purposes. ??It should not be regarded as investigational or for research. ??Nevertheless, federal rules concerning the medical use of analyte specific reagents require that the following disclaimer be attached to the report: This test was developed and its performance characteristics determined by the Surgical Pathology Department [facility]. ??It has not been cleared or approved by the U. S. Food and Drug Administration. Note for decalcified specimens: This assay has not been validated on decalcified tissues. Results should be interpreted with caution given the possibility of false negativity on decalcified specimens Ernie Baldwin MD LAB PATHOLOGY ORDERABLES Final Result Performing Organization Address City/[facility]/ZIP Co de Phone Number PATHOLOGY [address] [place] [address] * (ABNORMAL) POC Activated Clotting Time, High Range (03/22/2024 10:36 AM CDT) ACT 546(H) 87 - 138 sec Blood 03/22/2024 10:3 6 AM CDT 03/22/2024 10:36 AM CDT Ernie Baldwin MD LAB BLOOD ORDERABLES Final Res ult Performing Organization Address [facility] Co de Phone Number CERNER [phone] [address] [facility] [place] [address] * (ABNORMAL) POC Blood Gas and Chemistries, Arterial - (03/22/2024 10:13 AM CDT) pH, Art POC 7.38 7.35 - 7.45 pCO2, Art POC 39 35 - 45 mmHg CERNER CH pO2, Art POC 274(H) 83 - 108 mmHg CERNER CH Na, POC 134(L) 135 - 145 mmol/L CERNER CH K POC 5.1(H) 3.3 - 4.9 mmol/L CERNER CH Comment: Interpretive Data This method is not able to assess for hemolysis, which may falsely increase potassium concentrations. If further testing is needed to evaluate this result, consider in-laboratory plasma potassium. Current Interpretive Data was last revised on 2022. Ionized Ca, POC 4.57 4.50 - 5.10 mg/dL CERNER CH Glucose, POC 159 70 - 199 mg/dL CERNER CH Lactate, POC 0.6(L) 0.7 - 2.0 mmol/L CERNER CH SO2 (jules) arterial 100(H) 90 - 95 % CERNER CH Total CO2, Art POC 24 21 - 30 mmol/L CERNER CH BE, art, POC -2 mmol/L CERNER CH HCO3, Art POC 24 20 - 30 mmol/L CERNER CH Hct, POC 30.0(L) 38.9 - 50.3 % CERNER CH Total Hb, POC 10.1(L) 13.0 - 17.5 g/dL CERNER CH Blood 03/22/2024 10:1 3 AM CDT 03/22/2024 10:13 AM CDT Ernie Baldwin MD LAB POCT ORDERABLES - DEVICE F inal Result Performing Organization Address [facility] Co de Phone Number ORI RICHI [phone] [place] [address] * (ABNORMAL) POC Activated Clotting Time, High Range (03/22/2024 10:10 AM CDT) ACT 672(H) 87 - 138 sec Blood 03/22/2024 10:1 0 AM CDT 03/22/2024 10:10 AM CDT Ernie Baldwin MD LAB BLOOD ORDERABLES Final Res ult Performing Organization Address [facility]/ZIP Co de Phone Number BANDARRIO STODDARD [phone] [place], [place] [id number] * (ABNORMAL) Platelet count (03/22/2024 10:10 AM CDT) Plt 100(L) 150 - 400 K/cumm Blood 03/22/2024 10:1 0 AM CDT 03/22/2024 10:14 AM CDT Ernie Baldwin MD LAB BLOOD ORDERABLES Final Res ult ORI STODDARD [address] [address] [place] [address] * (ABNORMAL) POC Blood Gas and Chemistries, Arterial - (03/22/2024 9:36 AM CDT) pH, Art POC 7.35 7.35 - 7.45 pCO2, Art POC 44 35 - 45 mmHg CERNER CH pO2, Art POC 316(H) 83 - 108 mmHg CERNER CH Na, POC 134(L) 135 - 145 mmol/L CERNER CH K POC 5.3(H) 3.3 - 4.9 mmol/L CERNER CH Comment: Interpretive Data This method is not able to assess for hemolysis, which may falsely increase potassium concentrations. If further testing is needed to evaluate this result, consider in-laboratory plasma potassium. Current Interpretive Data was last revised on 2022. Ionized Ca, POC 4.45(L) 4.50 - 5.10 mg/dL CERNER CH Glucose, POC 133 70 - 199 mg/dL CERNER CH Lactate, POC 0.6(L) 0.7 - 2.0 mmol/L CERNER CH SO2 (jules) arterial 100(H) 90 - 95 % CERNER CH Total CO2, Art POC 26 21 - 30 mmol/L CERNER CH BE, art, POC -1 mmol/L CERNER CH HCO3, Art POC 24 20 - 30 mmol/L CERNER CH Hct, POC 31.0(L) 38.9 - 50.3 % CERNER CH Total Hb, POC 10.3(L) 13.0 - 17.5 g/dL CERNER CH Blood 03/22/2024 9:36 AM CDT 03/22/2024 9:36 AM CDT Ernie Baldwin MD LAB POCT ORDERABLES - DEVICE F inal Result Performing Organization Address City/[facility]/ZIP Co de Phone Number ORI STODDARD [phone] [facility] [place] [address] * (ABNORMAL) POC Activated Clotting Time, High Range (03/22/2024 9:34 AM CDT) ACT 805(H) 87 - 138 sec Blood 03/22/2024 9:34 AM CDT 03/22/2024 9:34 AM CDT Ernie Baldwin MD LAB BLOOD ORDERABLES Final Res ult Performing Organization Address [facility] Co de Phone Number ORI STODDARD [phone] [facility] [place] [address] * (ABNORMAL) POC Activated Clotting Time, High Range (03/22/2024 9:02 AM CDT) ACT 918(H) 87 - 138 sec Blood 03/22/2024 9:02 AM CDT 03/22/2024 9:02 AM CDT Ernie Baldwin MD LAB BLOOD ORDERABLES Final Res ult Performing Organization Address [facility] Co de Phone Number ORI STODDARD [phone] [facility] [place] [address] * (ABNORMAL) POC Blood Gas and Chemistries, Arterial - (03/22/2024 8:38 AM CDT) Pathologist [facility] pH, Art POC 7.42 7.35 - 7.45 pCO2, Art POC 40 35 - 45 mmHg CERNER CH pO2, Art POC >500(H) 83 - 108 mmHg CERNER CH Na, POC 137 135 - 145 mmol/L CERNER CH K POC 3.9 3.3 - 4.9 mmol/L CERNER CH Comment: Interpretive Data This method is not able to assess for hemolysis, which may falsely increase potassium concentrations. If further testing is needed to evaluate this result, consider in-laboratory plasma potassium. Current Interpretive Data was last revised on 2022. Ionized Ca, POC 4.93 4.50 - 5.10 mg/dL CERNER CH Glucose, POC 112 70 - 199 mg/dL CERNER CH Lactate, POC <0.5(L) 0.7 - 2.0 mmol/L CERNER CH SO2 (jules) arterial 100(H) 90 - 95 % CERNER CH Total CO2, Art POC 27 21 - 30 mmol/L CERNER CH BE, art, POC 1 mmol/L CERNER CH HCO3, Art POC 26 20 - 30 mmol/L CERNER CH Hct, POC 42.0 38.9 - 50.3 % CERNER CH Total Hb, POC 14.1 13.0 - 17.5 g/dL CERNER Blood 03/22/2024 8:38 AM CDT 03/22/2024 8:38 AM CDT Ernie Baldwin MD LAB POCT ORDERABLES - DEVICE F inal Result Performing Organization Address [facility]/ZIP Co de Phone Number ORI [phone] [place] [address] * POC Activated Clotting Time, High Range (03/22/2024 8:36 AM CDT) ACT 98 87 - 138 sec Blood 03/22/2024 8:36 AM CDT 03/22/2024 8:36 AM CDT Ernie Baldwin MD LAB BLOOD ORDERABLES Final Res ult Performing Organization Address [facility]/ZIP Co de Phone Number [facility] [phone] [place] [address] * Protime-INR (03/22/2024 6:46 AM CDT) PT 12.3 9.7 - 13.0 sec INR 1.14 0.90 - 1.20 [facility] Comment: Interpretive data Oral anticoagulant therapeutic ranges: Venous thromboembolism prophylaxis or treatment: 2.0-3.0 CARDIOLOGY Standard range: 2.0-3.0 High-intensity range: 2.5-3.5 Refer to indication-specific guidelines for appropriate target ranges for prosthetic heart valve replacement. Current interpretive data was last revised on 2019. Blood 03/22/2024 6:46 AM CDT 03/22/2024 6:46 AM CDT Ranjit Fernández PIPE SMOKER MACHINE OPERATOR LAB BLOOD ORDERABLES Final Result Performing Organization Address [facility] Co de Phone Number ORI [phone] [address] [place] [address] * Type and screen (03/22/2024 6:24 AM CDT) ABO Rh B Positive Beatriz, indirect Negative [facility] Blood 03/22/2024 6:24 AM CDT 03/22/2024 6:46 AM CDT Narrative [facility] - 03/22/2024 7:26 AM CDT Has the patient had Daratumumab or Isatuximab in the past 6 months?->Unknown Re Hicks PIPE SMOKER MACHINE OPERATOR LAB BLOOD BANK TEST ORDER DINORA Final Result Performing Organization Address [facility] de Phone Number ORI STODDARD [phone] [place] [address] * Prepare plasma: 2 Units Standard plasma (03/22/2024 6:00 AM CDT) Product code [id number] Unit Number [id number]- R [facility] Product Blood Type BPOS [facility] Dispense Status PRESUMED TRANSFUSED [facility] Blood (Blood, Venous) 03/22/2024 6:00 AM CDT Narrative [facility] - 03/22/2024 10:15 PM CDT Specify Procedure:->AVR Is this plasma order intended for a COVID-19 patient as convalescent plasma?->Standard plasma Special Requirements Needed?->No Date required:-[id number] FFP # of Units:-2-Units Reasons:-Hold for procedure (specify procedure)} Re Hicks PIPE SMOKER MACHINE OPERATOR BLOOD BANK PRODUCT ORDERA BLES Final Result Performing Organization Address [facility] de Phone Number ORI STODDARD [phone] [facility] [employer] [place], [place] [id number] * Prepare platelets: 2 Units (03/22/2024 6:00 AM CDT) Product code [id number] Unit Number [id number]- Y CERNER CH Product Blood Type OPOS CERNER CH Dispense Status PRESUMED TRANSFUSED CERNER CH Blood (Blood, Venous) 03/22/2024 6:00 AM CDT Narrative CERNER CH - 03/22/2024 10:15 PM CDT Specify Procedure:->AVR Are special requirements needed? (all products are leukoreduced)->No Date required:-[id number] PLT # of Units:-2-Units Reasons:-Hold for procedure (specify procedure)} us Re Hicks PIPE SMOKER MACHINE OPERATOR BLOOD BANK PRODUCT ORDERA BLES Final Result Performing Organization Address [facility] Co de Phone Number ORI STODDARD [phone] [place] [address] * Prepare RBC: 4 Units (03/22/2024 6:00 AM CDT) Product code [id number] CERNER CH Unit Number [id number]- O [facility]ER CH Product Blood Type BPOS CERNER CH Dispense Status PRESUMED TRANSFUSED CERNER CH Product code [id number] Unit Number [id number] [facility]ER CH Product Blood Type BPOS CERNER CH Dispense Status PRESUMED TRANSFUSED CERNER CH Product code [id number] CERNER CH Unit Number [id number]- C [facility] CH Product Blood Type BPOS CERNER CH Dispense Status RETURNED CERNER CH Product code [id number] CERNER CH Unit Number [id number]- Q [facility] CH Product Blood Type BPOS CERNER CH Dispense Status PRESUMED TRANSFUSED CERNER CH Blood 03/22/2024 6:00 AM CDT Narrative [facility] CH - 03/26/2024 12:05 AM CDT Specify Procedure:->AVR Are special requirements needed? (All products are leukoreduced and CMV- safe)- >No Date required:-[id number] LRRBC # of Ysbot-1-Licno Reasons:-Hold for procedure (specify procedure)} us Re Hicks NP BLOOD BANK PRODUCT ORDERA BLES Final Result ORI STODDARD [phone] [facility] [place] [address] documented in this encounter Visit Diagnoses Diagnosis Aortic valve stenosis- Primary Aortic valve disorders Aortic valve stenosis, etiology of cardiac valve disease unspecified Aortic stenosis, severe Aortic stenosis, severe documented in this encounter Admitting Diagnoses Diagnosis Aortic valve stenosis Aortic valve disorders Aortic stenosis, severe documented in this encounter Administered Medications Inactive Administered Medications - up to 3 most recent administrations Medication Order MAR Action Action Date Dose Rate Site acetaminophen (TYLENOL) tablet 1,000 mg 1,000 mg, oral, Every 6 hours scheduled, First dose on Thu03/22/24 at 1300, If able to swallow medications., Indications: PainIndications:Pain Given 03/30/2024 1:39 PM CDT 1,000 mg Given 03/30/2024 4:57 AM CDT 1,000 mg Given 03/30/2024 12:43 AM CDT 1,000 mg albumin 5 % bottle 25 g 25 g, intravenous, Once, On Thu03/22/24 at 1300, For 1 dose, Indications: Immediate post CV surgery (72 hours including transplants)Indications:Immediate post CV surgery (72 hours including transplants) Given 03/22/2024 12:40 PM CDT 25 g albumin 5 % bottle 25 g 25 g, intravenous, Every 15 min PRN, systolic BP less than 95, SVR greater than 1200, PAD less than 18, Starting on Thu03/22/24 at 1228, For 3 doses, Up to 3 doses, Indications: Immediate post CV surgery (72 hours including transplants)Indications:Immediate post CV surgery (72 hours including transplants) Given 03/23/2024 8:36 AM CDT 12. 5 g Given 03/23/2024 5:29 AM CDT 25 g Given 03/22/2024 4:00 PM CDT 12.5 g albuterol 2.5 mg /3 mL (0.083 %) nebulizer solution 2.5 mg 2.5 mg, nebulization, Every 6 hours (correspondent), First dose on Thu03/22/24 at 1500, Indications: Bronchospastic Pulmonary DiseaseIndications:Bronchospastic Pulmonary Disease Given 03/29/2024 1:30 PM CDT 2.5 mg Given 03/29/2024 2:44 AM CDT 2.5 mg Given 03/28/2024 8:52 PM CDT 2.5 mg albuterol 2.5 mg /3 mL (0.083 %) nebulizer solution 2.5 mg 2.5 mg, nebulization, 4 times daily, First dose (after last modification) on Thu03/30/24 at 0800, Indications: Bronchospastic Pulmonary DiseaseIndications:Bronchospastic Pulmonary Disease Given 03/30/2024 9:40 AM CDT 2.5 mg amiodarone (NEXTERONE) 150 mg/100 mL (1.5 mg/mL) in dextrose (premix) - ADS Override Pull Starting on Thu03/24/24 at 0759, For 1 dose, Created by cabinet override Use filter 0.22 micron or less amiodarone (NEXTERONE) 150 mg/100 mL (1.5 mg/mL) in dextrose (premix) 150 mg 150 mg, intravenous, at 600 mL/hr, Administer over 10 Minutes, Once, On Thu03/24/24 at 0830, For 1 dose, Use filter 0.22 micron or less New Bag 03/24/2024 8:01 AM CDT 150 mg 600 mL/hr amiodarone (PACERONE) tablet 400 mg 400 mg, oral, Daily, First dose on Thu03/25/24 at 1615 Given 03/29/2024 4:31 PM CDT 400 mg Given 03/28/2024 5:50 PM CDT 400 mg Given 03/27/2024 3:37 PM CDT 400 mg amiodarone in dextrose (NEXTERONE) 360 mg/200 mL (1.8 mg/mL) infusion (premix) - ADS Override Pull Starting on Thu03/24/24 at 0759, For 1 dose, Created by cabinet override Use filter 0.22 micron or less amiodarone in dextrose (NEXTERONE) 360 mg/200 mL (1.8 mg/mL) infusion (premix) 1 mg/min (33.3333 mL/hr, rounded to 33.3 mL/hr), 1.8 mg/mL, intravenous, Continuous, Starting on Thu03/24/24 at 0830, Until Thu03/24/24 at 1420, Use filter 0.22 micron or less, Routine Rate/Dose Verify 03/24/2024 1:31 PM CDT 1 mg/min 33.3 mL/hr Rate/Dose Verify 03/24/2024 11:45 AM CDT 1 mg/min 33.3 m L/hr Rate/Dose Verify 03/24/2024 9:17 AM CDT 1 mg/min 33.3 mL /hr amiodarone in dextrose (NEXTERONE) 360 mg/200 mL (1.8 mg/mL) infusion (premix) 0.5 mg/min (16.6667 mL/hr, rounded to 16.67 mL/hr), 1.8 mg/mL, intravenous, Continuous, Starting on Thu03/24/24 at 1421, Until Thu03/25/24 at 0802, Use filter 0.22 micron or less, Routine New Bag 03/25/2024 2:35 AM CDT 0.5 mg/min 16.67 mL/hr Rate/Dose Verify 03/24/2024 6:30 PM CDT 0.5 mg/min 16.67 m L/hr Rate/Dose Verify 03/24/2024 5:17 PM CDT 0.5 mg/min 16.67 m L/hr aspirin chewable tablet 81 mg 81 mg, feeding tube, Daily, First dose on Thu03/22/24 at 1300, Administer chewable tablet per tube if receiving medictions per tube. Given 03/23/2024 8:20 AM CDT 8 1 mg aspirin enteric coated tablet 81 mg 81 mg, oral, Daily, First dose on Thu03/22/24 at 1300, Administer EC oral tablet if able to swallow medications. Do not crush, chew, cut, dissolve, open or otherwise manipulate tablet/capsule. Given 03/30/2024 8:19 AM CDT 81 mg Given 03/29/2024 8:26 AM CDT 81 mg Given 03/28/2024 8:25 AM CDT 81 mg buPROPion SR (WELLBUTRIN SR) 12 hour tablet 150 mg 150 mg, oral, 2 times daily, First dose on Thu03/23/24 at 2100, Do not crush, chew, cut, dissolve, open or otherwise manipulate tablet/capsule. Given 03/30/2024 8:19 AM CDT 150 mg Given 03/29/2024 8:44 PM CDT 150 mg Given 03/29/2024 8:26 AM CDT 150 mg calcium chloride 2 g in sodium chloride 0.9% 100 mL IVPB 2 g, intravenous, at 120 mL/hr, Administer over 60 Minutes, Once, On Thu03/22/24 at 2330, For 1 dose, Central line preferred, Indications: hypocalcemiaIndications:hypocalc emia New Bag 03/23/2024 12:07 AM CDT 2 g 120 mL/hr ceFAZolin (ANCEF) 1 gram/10 mL in sterile water (premix) 1,000 mg 1,000 mg, intravenous, at 200 mL/hr, Administer over 3 Minutes, Every 8 hours, First dose on Thu03/22/24 at 1600, For 5 doses, Start 8 hours after last kasey-operative dose., Indications: Prophylaxis, SurgicalIndications:Prophylaxis, Surgical Given 03/23/2024 11:30 PM CDT 1,000 mg 200 mL/hr Given 03/23/2024 4:18 PM CDT 1,000 mg 200 mL/hr Given 03/23/2024 7:51 AM CDT 1,000 mg 200 mL/hr clevidipine (CLEVIPREX) 25 mg/50 mL (0.5 mg/mL) infusion (premix) - ADS Override Pull Starting on Thu03/22/24 at 1240, For 1 dose, Created by cabinet override Vial only stable 12 hours after entry. Replace with new vial every 12 hours. clevidipine (CLEVIPREX) 25 mg/50 mL (0.5 mg/mL) infusion (premix) 0-32 mg/hr (0-64 mL/hr), 0.5 mg/mL, intravenous, Titrated, Starting on Thu03/22/24 at 1315, Until Thu03/24/24 at 0322, Initial rate: 1 mg/hr, Titrate: Up/Down, Titrate by: 1 mg/hr, Every: 2 minutes, Goal: SBP, SBP Goal: Other (comment) / 90-110 mmhg, Vial only stable 12 hours after entry. Replace with new vial every 12 hours., Routine Rate/Dose Change 03/24/2024 2:35 AM CDT 7 mg/hr 14 mL/hr Rate/Dose Change 03/24/2024 2:15 AM CDT 8 mg/hr 16 mL/h r New Bag 03/24/2024 1:45 AM CDT 9 mg/hr 18 mL/hr clevidipine (CLEVIPREX) 25 mg/50 mL (0.5 mg/mL) infusion (premix) 0-32 mg/hr (0-64 mL/hr), 0.5 mg/mL, intravenous, Titrated, Starting on Khushbu 03/24/24 at 0400, Until 03/27/24 at 1629, Initial rate: 1 mg/hr, Titrate: Up/Down, Titrate by: 1 mg/hr, Every: 2 minutes, Goal: SBP, SBP Goal: 130-140 mmHg / 90-110 mmhg, Vial only stable 12 hours after entry. Replace with new vial every 12 hours., Routine Rate/Dose Change 03/26/2024 11:35 AM CDT 1 mg/hr 2 mL/hr Rate/Dose Change 03/26/2024 11:30 AM CDT 2 mg/hr 4 mL/h r Rate/Dose Change 03/26/2024 7:30 AM CDT 3 mg/hr 6 mL/hr dexmedeTOMIDine in 0.9% sodium chloride (PRECEDEX) 400 mcg/100 mL (4 mcg/mL) infusion (premix) 0-1.5 mcg/kg/hr ? 76.4 kg (0-28.65 mL/hr), 4 mcg/mL, intravenous, Titrated, Starting on Thu03/22/24 at 1300, Until Thu03/25/24 at 1051, Indications: Sedation in Intubated Patients, Titration instructions: Titrate, Initial dose: 0.2 mcg/kg/hr, Titrate: Up/Down, Titrate by: 0.1 mcg/kg/hr, Every: 30 minutes, Goal: RASS, RASS Goal: 0, -1, -2, CONTINUE current rate if sedation at goal. INCREASE infusion per titration instructions if undersedated. DECREASE infusion per titration instructions if oversedated., RoutineIndications:Sedatio n in Intubated Patients Rate/Dose Change 03/23/2024 12:22 PM CDT 0.4 mcg/kg/hr 7.64 mL/hr Rate/Dose Change 03/23/2024 11:21 AM CDT 0.5 mcg/kg/hr 9.5 5 mL/hr Rate/Dose Change 03/23/2024 9:57 AM CDT 0.6 mcg/kg/hr 11.4 6 mL/hr dextrose (D10W) 10% bolus 250 mL 250 mL, intravenous, at 1,000 mL/hr, Administer over 15 Minutes, Every 15 min PRN, blood glucose less than 70 mg/dL and UNABLE to swallow/take PO glucose/juice., Starting on Thu03/23/24 at 1437, After treatment for hypoglycemia, recheck BG followed by treatment every 15 minutes until the BG is greater than 100 mg/dL. Then check BG 1 hour post treatment. If BG is less than 100 mg/dL, repeat Q15 minute BG checks and treatment. Call MD for each episode of hypoglycemia., Indications: hypoglycemic disorderIndications:hypoglycemic disorder dextrose oral liquid liquid 15 g 15 g, oral, Every 15 min PRN, low blood sugar, blood glucose less than 70 mg/dL, Starting on Thu03/23/24 at 1437, If patient is alert and able to eat/drink, give 15 gm glucose or one juice (4 fluid ounces) NOT ORANGE JUICE. After treatment for hypoglycemia, recheck BG followed by treatment every 15 minutes until the BG is greater than 100 mg/dL. Then check BG 1 hour post-treatment. If BG is less than 100 mg/dL, repeat Q15 minute BG checks and treatment. Call MD for each episode of hypoglycemia., Indications: hypoglycemic disorderIndications:hypoglycemic disorder dilTIAZem (CARDIZEM) tablet 120 mg 120 mg, oral, Once, On Khushbu 03/24/24 at 0215, For 1 dose Given 03/24/2024 1:54 AM CDT 120 mg dilTIAZem XR (CARDIZEM CD,DILACOR XR) 24 hour capsule 240 mg 240 mg, oral, Daily with dinner, First dose (after last modification) on Thu03/24/24 at 1800, Do not crush, chew, cut, dissolve, open or otherwise manipulate tablet/capsule. Given 03/29/2024 4:32 PM CDT 240 mg Given 03/28/2024 5:50 PM CDT 240 mg Given 03/27/2024 6:16 PM CDT 240 mg enoxaparin (LOVENOX) syringe 80 mg 80 mg (rounded from 76.6 mg = 1 mg/kg ? 76.6 kg), subcutaneous, Every 12 hours scheduled, First dose on Thu03/29/24 at 1300, Indications: Mechanical Valve Thromboembolism ProphylaxisIndications:Mechanica l Valve Thromboembolism Prophylaxis Given 03/30/2024 8:19 AM CDT 80 mg Left Lower Abdomen Given 03/29/2024 8:45 PM CDT 80 mg Le ft Lower Abdomen Given 03/29/2024 1:05 PM CDT 80 mg Le ft Upper Arm EPINEPHrine in 0.9% sodium chloride 2,000 mcg/100 mL (20 mcg/mL) infusion (premix) 0-0.2 mcg/kg/min ? 76.4 kg (0-45.84 mL/hr), 20 mcg/mL, intravenous, Titrated, Starting on Thu03/22/24 at 2230, Until Thu03/25/24 at 1051, Initial rate: Other (comment) / .04, Titrate: Up/Down, Titrate by: 0.01 mcg/kg/min, Every: 2 minutes, Goal: CI, CI Goal: 2.2-4 L/min/m2, Protect from light, Routine Rate/Dose Change 03/23/2024 6:10 AM CDT 0.01 mcg/kg/min 2.29 mL/hr Rate/Dose Verify 03/23/2024 4:00 AM CDT 0.02 mcg/kg/min 4. 58 mL/hr Rate/Dose Change 03/23/2024 1:15 AM CDT 0.02 mcg/kg/min 4. 58 mL/hr famotidine (PEPCID) injection 20 mg 20 mg, intravenous, Administer over 2 Minutes, Daily, First dose on Thu03/22/24 at 1300 Given 03/24/2024 8:53 AM CDT 20 mg Given 03/23/2024 8:20 AM CDT 20 mg famotidine (PEPCID) tablet 20 mg 20 mg, oral, 2 times daily, First dose on Thu03/24/24 at 2100 Given 03/30/2024 8:19 AM CDT 20 mg Given 03/29/2024 8:44 PM CDT 20 mg Given 03/29/2024 8:25 AM CDT 20 mg fentaNYL (SUBLIMAZE) 50 mcg/mL preservative free injection - ADS Override Pull Starting on Thu03/22/24 at 1351, For 1 dose, Created by cabinet override fentaNYL (SUBLIMAZE) preservative free injection 50 mcg 50 mcg, intravenous, Every 1 hour PRN, 1st line for pain, While intubated, Starting on Thu03/22/24 at 1351 Given 03/23/2024 5:20 AM CDT 50 mcg Given 03/22/2024 5:00 PM CDT 50 mcg Given 03/22/2024 3:45 PM CDT 50 mcg furosemide (LASIX) 10 mg/mL injection 40 mg 40 mg, intravenous, Once, On Khushbu 03/24/24 at 1045, For 1 dose, For IV push: administer doses < 160 mg at a rate of 20 -40 mg/min. Doses >/= 160 mg should be administered no faster than 4 mg/min. Room temperature only Given 03/24/2024 11: 20 AM CDT 40 mg furosemide (LASIX) 10 mg/mL injection 40 mg 40 mg, intravenous, Every 8 hours, First dose (after last modification) on Thu03/25/24 at 0645, For IV push: administer doses < 160 mg at a rate of 20 -40 mg/min. Doses >/= 160 mg should be administered no faster than 4 mg/min. Room temperature only Given 03/25/2024 10:10 PM CDT 40 mg Given 03/25/2024 2:40 PM CDT 40 mg Given 03/25/2024 6:33 AM CDT 40 mg furosemide (LASIX) 10 mg/mL injection 40 mg 40 mg, intravenous, Every 12 hours scheduled, First dose (after last modification) on Thu03/26/24 at 2100, For IV push: administer doses < 160 mg at a rate of 20 -40 mg/min. Doses >/= 160 mg should be administered no faster than 4 mg/min. Room temperature only Given 03/26/2024 8:32 PM CDT 40 mg furosemide (LASIX) 10 mg/mL injection 40 mg 40 mg, intravenous, Once, On 03/26/24 at 0945, For 1 dose, For IV push: administer doses < 160 mg at a rate of 20 -40 mg/min. Doses >/= 160 mg should be administered no faster than 4 mg/min. Room temperature only Given 03/26/2024 9:2 1 AM CDT 40 mg furosemide (LASIX) 10 mg/mL injection 40 mg 40 mg, intravenous, Daily, First dose (after last modification) on Thu03/27/24 at 0900, For IV push: administer doses < 160 mg at a rate of 20 -40 mg/min. Doses >/= 160 mg should be administered no faster than 4 mg/min. Room temperature only Given 03/28/2024 8:26 AM CDT 40 mg Given 03/27/2024 9:48 AM CDT 40 mg furosemide (LASIX) tablet 40 mg 40 mg, oral, Daily, First dose on Thu03/29/24 at 0900 Given 03/30/2024 8:19 AM CDT 40 mg Given 03/29/2024 8:26 AM CDT 40 mg glucagon injection 1 mg 1 mg, intramuscular, Every 30 min PRN, low blood sugar, blood glucose less than 70 mg/dL AND no IV access AND unable to take PO glucose/juice., Starting on Thu03/23/24 at 1437, After Glucagon is administered, position patient on side if possible to avoid aspiration. Obtain IV access. Follow glucagon treatment with glucose treatment or IV dextrose. After treatment for hypoglycemia, recheck BG followed by treatment every 15 minutes until the BG is greater than 100 mg/dL. Then check BG 1 hour post treatment. If BG is less than 100 mg/dL, repeat Q15 minute BG checks and treatment. Call MD for each episode of hypoglycemia. Reconstitute 1 mg vial with 1 mL SWFI. Use immediately following reconstitution. heparin in 0.45% sodium chloride 25,000 units/250 mL (100 units/mL) infusion (premix) 0-33 Units/kg/hr ? 77.9 kg (0-25.707 mL/hr, rounded to 0-25.71 mL/hr), intravenous, Titrated, Starting on Thu03/25/24 at 1300, WEIGHT-BASED HEPARIN INFUSION Initial dose:: 12 Units/kg/hr. Max initial dose: 1,000 units/hr. Adjust infusion based upon nomogram: PTT less than 46 seconds:? Bolus if ordered (see PRN bolus order) , then increase infusion dose 3 units/kg/hour PTT 46 - 55 seconds:? Bolus if ordered (see PRN bolus order), then increase infusion dose 2 units/kg/hour PTT 56 - 65 seconds:? Increase infusion dose 1 unit/kg/hour PTT 66 - 100 seconds:? No??change PTT 101 - 110 seconds:? Decrease infusion dose 1 unit/kg/hour PTT 111 - 120 seconds:? Hold infusion for 30 minutes, then decrease infusion dose 2 units/kg/hour PTT greater than 120 seconds:?Hold infusion for 1 hour, then decreaseinfusion dose 3 units/kg/hour Draw STAT PTT 6 hrs after initiation of heparin infusion, draw STAT PTT 6 hours after each dose change, and every 6 hours until 2 consecutive PTTs are within therapeutic range. Once two consecutive PTT's are therapeutic (66-100 seconds), then draw PTT every AM until heparin is discontinued., Indications: atrial fibrillationIndications:atrial fibrillation New Bag 03/29/2024 1:43 AM CDT 33 Units/kg/hr 25.7 mL/hr Rate/Dose Change 03/28/2024 3:55 PM CDT 33 Units/kg/hr 25. 7 mL/hr New Bag 03/28/2024 1:30 PM CDT 31 Units/kg/hr 24.1 mL/h r hydrALAZINE (APRESOLINE) injection 20 mg 20 mg, intravenous, Administer over 2 Minutes, Every 2 hours PRN, high blood pressure, sbp>160, Starting on Khushbu 03/24/24 at 0131 Given 03/24/2024 1:45 AM CDT 20 mg insulin lispro (HumaLOG, ADMELOG) 100 unit/mL injection 0-10 Units 0-10 Units, subcutaneous, 5 times daily (with meals, nightly, and 0200), First dose on Thu03/23/24 at 1800, Blood glucose mg/dL: 149 or less: No insulin 150-199: add 2 unit 200-249: add 4 units 250-299: add 6 units 300-349: add 8 units and notify physician for adjustment of insulin orders. 350-399: add 10 units and notify physician for adjustment of insulin orders. Over 400: Notify physician for adjustment of insulin orders. Do NOT hold for NPO Status, Indications: Diabetes MellitusIndications:Diabetes Mellitus Given 03/29/2024 1:08 PM CDT 2 Units Left Upper Arm Given 03/28/2024 8:30 PM CDT 2 Units Ri ght Upper Arm Given 03/26/2024 8:33 PM CDT 2 Units Le ft Upper Arm insulin regular in 0.9% sodium chloride (MYXREDLIN) 100 unit/100 mL (1 unit/mL) infusion (premix) - ADS Override Pull Starting on Thu03/22/24 at 1852, For 1 dose, Created by cabinet override Contains a phosphorous buffer. Do not infuse (Y-Site) this medication with calcium or calcium-containing products, including TPN and LR. When new IV tubing is used, completely prime the tubing. Once primed, waste an additional 20 ml of insulin infusion using the IV pump prior to connecting to patient. insulin regular in 0.9% sodium chloride (MYXREDLIN) 100 unit/100 mL (1 unit/mL) infusion (premix) 0-30 Units/hr (0-30 mL/hr), 1 units/mL, intravenous, Titrated, Starting on Thu03/22/24 at 1930, Until Thu03/23/24 at 1436, Desired Range (mg/dL): 100-140 post-op open heart, Multiplier: 0.02, NON-WEIGHT BASED DOSING Adjust rate per GlucoStabilizer program. Contains a phosphorous buffer. Do not infuse (Y-Site) this medication with calcium or calcium-containing products, including TPN and LR. When new IV tubing is used, completely prime the tubing. Once primed, waste an additional 20 ml of insulin infusion using the IV pump prior to connecting to patient., Routine Rate/Dose Verify 03/23/2024 1:52 PM CDT 2 Units/hr 2 mL/hr Rate/Dose Change 03/23/2024 1:48 PM CDT 2 Units/hr 2 mL/hr Rate/Dose Verify 03/23/2024 12:22 PM CDT 2.5 Units/hr 2.5 mL/hr ketorolac (TORADOL) 30 mg/mL injection 30 mg 30 mg, intravenous, Every 6 hours scheduled, First dose on Thu03/23/24 at 1200, For 4 doses, For Adult IV push, administer over 15 seconds Given 03/24/2024 5:41 AM CDT 30 mg Given 03/23/2024 11:21 PM CDT 30 mg Given 03/23/2024 6:04 PM CDT 30 mg Lactated Ringer's (LR) infusion 30 mL/hr, intravenous, Continuous, Starting on Thu03/22/24 at 0630, Pre-Op Restarted 03/22/2024 12:20 PM CDT Rate/Dose Verify 03/22/2024 7:43 AM CDT 30 mL/h r New Bag 03/22/2024 6:56 AM CDT 30 mL/hr 30 mL/hr lidocaine (LIDODERM) 5 % patch 2 patch 2 patch, transdermal, Administer over 12 Hours, Every 24 hours, First dose on Thu03/23/24 at 1545, Do not cover the holes on the top side of the patch., Apply to affected area: chest, back Medication Applied 03/24/2024 4:50 PM CDT 2 patches Back Medication Applied 03/23/2024 3:15 PM CDT 2 patches Back losartan (COZAAR) tablet 25 mg 25 mg, oral, Daily, First dose on Thu03/26/24 at 1030 Given 03/30/2024 8:19 AM CDT 25 mg Given 03/29/2024 8:26 AM CDT 25 mg Given 03/28/2024 8:25 AM CDT 25 mg magnesium sulfate 2 g/50 mL in water (premix) 2 g 2 g, intravenous, Administer over 60 Minutes, Every 2 hours PRN, magnesium level 2 mg/dL or less, Starting on Thu03/22/24 at 1228, Discuss with provider before administering if creatinine equal to or greater than 1.8 mg/dL, urine output less than 20 ml/hr, and/or patient on renal replacement therapy (CRRT, hemodialysis). New Bag 03/27/2024 3:23 PM CDT 2 g New Bag 03/24/2024 3:18 PM CDT 2 g New Bag 03/23/2024 2:36 PM CDT 2 g magnesium sulfate 2 g/50 mL in water (premix) 2 g 2 g, intravenous, Administer over 60 Minutes, Once, On Thu03/25/24 at 0800, For 1 dose, Indications: hypomagnesemiaIndications:hypomagnesemia New Bag 03/25/2024 9:24 AM CDT 2 g methocarbamoL (ROBAXIN) tablet 500 mg 500 mg, oral, 3 times daily, First dose on Thu03/23/24 at 0900 Given 03/30/2024 8:19 AM CDT 500 mg Given 03/29/2024 8:44 PM CDT 500 mg Given 03/29/2024 4:31 PM CDT 500 mg metOLazone (ZAROXOLYN) tablet 5 mg 5 mg, oral, Once, On Thu03/25/24 at 1400, For 1 dose, To be given before afternoon dose of lasix Given 03/25/2024 1:40 PM CDT 5 mg metoprolol tartrate (LOPRESSOR) immediate release split tablet 37.5 mg 37.5 mg, oral, 2 times daily, First dose (after last modification) on Thu03/25/24 at 2100 Given 03/26/2024 8:33 PM CDT 37.5 mg Given 03/26/2024 8:49 AM CDT 37.5 mg Given 03/25/2024 7:46 PM CDT 37.5 mg metoprolol tartrate (LOPRESSOR) immediate release tablet 12.5 mg 12.5 mg, oral, 2 times daily, First dose (after last modification) on Thu03/23/24 at 1645 Given 03/24/2024 8:53 AM CDT 12.5 mg Given 03/23/2024 4:17 PM CDT 12.5 mg metoprolol tartrate (LOPRESSOR) immediate release tablet 25 mg 25 mg, oral, 2 times daily, First dose (after last modification) on Khushbu 03/24/24 at 2100 Given 03/24/2024 9:15 PM CDT 25 mg metoprolol tartrate (LOPRESSOR) immediate release tablet 25 mg 25 mg, oral, 2 times daily, First dose (after last modification) on Thu03/27/24 at 0900 Given 03/30/2024 8:19 AM CDT 25 mg Given 03/29/2024 8:45 PM CDT 25 mg Given 03/29/2024 8:26 AM CDT 25 mg norepinephrine in dextrose 5% (LEVOPHED) 8,000 mcg/250 mL (32 mcg/mL) infusion (premix) 0-2 mcg/kg/min ? 76.4 kg (0-286.5 mL/hr), 32 mcg/mL, intravenous, Titrated, Starting on Thu03/22/24 at 1645, Until Thu03/25/24 at 1051, Initial rate: 0.05 mcg/kg/min, Titrate: Up/Down, Titrate by: 0.01 mcg/kg/min, Every: 2 minutes, Goal: MAP, MAP Goal: 60-70 mmHg, STAT Rate/Dose Change 03/23/2024 2:00 PM CDT 0.02 mcg/kg/min 2.87 mL/hr Rate/Dose Verify 03/23/2024 1:52 PM CDT 0.03 mcg/kg/min 4. 3 mL/hr Rate/Dose Change 03/23/2024 1:48 PM CDT 0.03 mcg/kg/min 4. 3 mL/hr oxyCODONE (ROXICODONE) tablet 10 mg 10 mg, oral, Every 4 hours PRN, 1st line for pain, Starting on Thu03/23/24 at 0905, Indications: PainIndications:Pain Given 03/30/2024 1:39 PM CDT 10 mg Given 03/30/2024 8:19 AM CDT 10 mg Given 03/30/2024 12:48 AM CDT 10 mg oxyCODONE (ROXICODONE) tablet 5 mg 5 mg, oral, Every 4 hours PRN, 1st line for pain, Starting on Thu03/22/24 at 1228, Indications: PainIndications:Pain Given 03/23/2024 5:21 AM CDT 5 mg Given 03/22/2024 11:44 PM CDT 5 mg polyethylene glycol (MIRALAX) packet 17 g 17 g, oral, Daily, First dose on Thu03/22/24 at 1300, Hold for diarrhea, Indications: constipationIndications:constipation Given 03/28/2024 8:25 AM CDT 17 g Given 03/25/2024 9:24 AM CDT 17 g Given 03/24/2024 8:53 AM CDT 17 g potassium chloride 20 mEq/50 mL in sterile water (premix) 20 mEq 20 mEq, intravenous, at 25 mL/hr, Administer over 2 Hours, Every 1 hour PRN, K less than 3.5, Starting on Thu03/22/24 at 1228, Central line only, Indications: hypokalemiaIndications:hypokalemia New Bag 03/27/2024 3:25 PM CDT 20 mEq 25 mL/hr New Bag 03/27/2024 3:25 AM CDT 20 mEq 25 mL/hr New Bag 03/23/2024 3:16 PM CDT 20 mEq 25 mL/hr potassium chloride ER (KLOR-CON) extended release tablet 40 mEq 40 mEq, oral, Once, On Thu03/24/24 at 1600, For 1 dose, Do not crush, chew, cut, dissolve, open or otherwise manipulate tablet/capsule. Given 03/24/2024 4:50 PM CDT 40 mEq potassium chloride ER (KLOR-CON) extended release tablet 40 mEq 40 mEq, oral, Once, On Thu03/25/24 at 0800, For 1 dose, Do not crush, chew, cut, dissolve, open or otherwise manipulate tablet/capsule. Given 03/25/2024 9:25 AM CDT 40 mEq potassium chloride ER (KLOR-CON) extended release tablet 40 mEq 40 mEq, oral, Once, On Thu03/25/24 at 1815, For 1 dose, Do not crush, chew, cut, dissolve, open or otherwise manipulate tablet/capsule. Given 03/25/2024 6:03 PM CDT 40 mEq potassium chloride ER (KLOR-CON) extended release tablet 40 mEq 40 mEq, oral, Once, On 03/26/24 at 0800, For 1 dose, Do not crush, chew, cut, dissolve, open or otherwise manipulate tablet/capsule. Given 03/26/2024 8:49 AM CDT 40 mEq potassium chloride ER (KLOR-CON) extended release tablet 40 mEq 40 mEq, oral, Once, On 03/27/24 at 0415, For 1 dose, Do not crush, chew, cut, dissolve, open or otherwise manipulate tablet/capsule. Given 03/27/2024 4:15 AM CDT 40 mEq potassium chloride ER (KLOR-CON) extended release tablet 40 mEq 40 mEq, oral, Once, On 03/28/24 at 0930, For 1 dose, Do not crush, chew, cut, dissolve, open or otherwise manipulate tablet/capsule. Given 03/28/2024 11:59 AM CDT 40 mEq prochlorperazine (COMPAZINE) injection 5 mg 5 mg, intravenous, Administer over 2 Minutes, Every 6 hours PRN, nausea, vomiting, Starting on Thu03/22/24 at 1228, Indications: Nausea and VomitingIndications:Nausea and Vomiting Given 03/27/2024 11:39 AM CDT 5 m g Given 03/24/2024 9:36 AM CDT 5 mg Given 03/23/2024 6:20 AM CDT 5 mg propofoL (DIPRIVAN) 10 mg/mL IV 0-50 mcg/kg/min ? 76.4 kg (0-22.92 mL/hr), 10 mg/mL, intravenous, Titrated, Starting on Thu03/22/24 at 1315, Until Thu03/23/24 at 1039, Titration instructions: Titrate, Initial dose: Other (comment) / 50 mcg, Titrate: Up/Down, Titrate by: 10 mcg/kg/min, Every: 10 minutes, Goal: RASS, RASS Goal: 0, -1, -2, Do not administer through the same I.V. catheter with blood or plasma. Tubing and any unused portions of propofol vials should be discarded after 12 hours. Room temperature only, Routine Rate/Dose Verify 03/23/2024 9:22 AM CDT 10 mcg/kg/min 4.58 mL/hr New Bag 03/23/2024 8:13 AM CDT 10 mcg/kg/min 4.58 mL/hr Rate/Dose Change 03/23/2024 6:45 AM CDT 10 mcg/kg/min 4.58 mL/hr QUEtiapine (SEROquel) tablet 50 mg 50 mg, oral, Nightly, First dose on Thu03/24/24 at 0000 Given 03/29/2024 8:44 PM CDT 50 mg Given 03/28/2024 8:20 PM CDT 50 mg Given 03/27/2024 8:49 PM CDT 50 mg rOPINIRole (REQUIP) tablet 4 mg 4 mg, oral, 2 times daily, First dose on Thu03/26/24 at 2230 Given 03/30/2024 8:19 AM CDT 4 mg Given 03/29/2024 8:44 PM CDT 4 mg Given 03/29/2024 9:51 AM CDT 4 mg rosuvastatin (CRESTOR) tablet 10 mg 10 mg, oral, Nightly, First dose on Thu03/25/24 at 2100 Given 03/29/2024 8:44 PM CDT 10 mg Given 03/28/2024 8:20 PM CDT 10 mg Given 03/27/2024 8:50 PM CDT 10 mg senna-docusate (PERICOLACE) 8.6-50 mg per tablet 2 tablet 2 tablet, oral, 2 times daily, First dose on Thu03/22/24 at 1300, Hold for diarrhea., Indications: constipationIndications:constipation Given 03/29/2024 8:44 PM CDT 2 table ts Given 03/28/2024 8:20 PM CDT 2 tablets Given 03/28/2024 8:25 AM CDT 2 tablets sodium chloride 0.9% flush 0.5-20 mL 0.5-20 mL, intra-catheter, Every 8 hours scheduled, First dose on Thu03/22/24 at 1400, Flush volume based on line type and size. Given 03/30/2024 4:57 AM CDT 10 mL Given 03/29/2024 8:45 PM CDT 10 mL Given 03/29/2024 1:13 PM CDT 10 mL sodium chloride 0.9% infusion 10 mL/hr, intravenous, Continuous PRN, Hang bag with transfusion; infuse to keep IV line open in the event of a transfusion reaction., Starting on Thu03/22/24 at 0559, Pre-Op/Floor sodium chloride 0.9% infusion 20 mL/hr, intravenous, Continuous, Starting on Thu03/22/24 at 1300 Rate/Dose Verify 03/24/2024 1:31 PM CDT 20 mL/hr 20 mL/hr Rate/Dose Verify 03/24/2024 11:45 AM CDT 20 mL/hr 20 mL/ hr Rate/Dose Verify 03/24/2024 6:20 AM CDT 20 mL/hr 20 mL/h r sodium chloride 0.9% IVPB 0-250 mL 0-250 mL, intravenous, Once, On Thu03/22/24 at 1315, For 1 dose, Prime blood tubing and administer amount needed to clear line (usually 50-100 mL) after transfusion complete. New Bag 03/22/2024 1:15 PM CDT 100 mL sodium chloride 0.9% IVPB 0-250 mL 0-250 mL, intravenous, Once, On Thu03/22/24 at 1815, For 1 dose, Prime blood tubing and administer amount needed to clear line (usually 50-100 mL) after transfusion complete. New Bag 03/22/2024 7:00 PM CDT 250 mL sodium chloride 0.9% IVPB 0-250 mL 0-250 mL, intravenous, Once, On Thu03/22/24 at 1830, For 1 dose, Prime blood tubing and administer amount needed to clear line (usually 50-100 mL) after transfusion complete. New Bag 03/22/2024 7:00 PM CDT 250 mL sodium chloride 0.9% IVPB 0-250 mL 0-250 mL, intravenous, Once, On Thu03/22/24 at 1845, For 1 dose, Prime blood tubing and administer amount needed to clear line (usually 50-100 mL) after transfusion complete. New Bag 03/22/2024 7:30 PM CDT 100 mL sodium chloride 0.9% IVPB 0-250 mL 0-250 mL, intravenous, Once, On Thu03/22/24 at 2030, For 1 dose, Prime blood tubing and administer amount needed to clear line (usually 50-100 mL) after transfusion complete. New Bag 03/22/2024 8:55 PM CDT 250 mL sodium chloride 0.9% solution 3-12 mL/hr, intra-catheter, Continuous, Starting on Thu03/22/24 at 1300, Amount needed for invasive pressure monitoring with 300 mg Hg to maintain patency. Rate/Dose Verify 03/24/2024 1:31 PM CDT 10 mL/hr 10 mL/hr Rate/Dose Verify 03/24/2024 6:20 AM CDT 10 mL/hr 10 mL/h r Rate/Dose Verify 03/23/2024 9:22 AM CDT 10 mL/hr 10 mL/h r sodium phosphate - potassium phosphate (K-PHOS NEUTRAL) tablet 500 mg 500 mg, oral, 4 times daily (with meals and nightly), First dose on Khushbu 03/24/24 at 1800, For 6 doses, Each tablet contains elemental phosphorus 250 mg (8 mmol), potassium 45 mg (1.1 mEq), and sodium 298 mg (13 mEq). Given 03/25/2024 7:46 PM CDT 500 m g Given 03/25/2024 6:03 PM CDT 500 mg Given 03/25/2024 1:40 PM CDT 500 mg vancomycin 1250 mg/250 mL in sodium chloride 0.9% (premix) 1,250 mg 1,250 mg (rounded from 1,146 mg = 15 mg/kg ? 76.4 kg), intravenous, Administer over 60 Minutes, Every 12 hours, First dose (after last modification) on Thu03/22/24 at 2000, For 3 doses, Start 12 hours after pre-operative dose., Indications: Prophylaxis, SurgicalIndications:Prophylaxis, Surgical New Bag 03/23/2024 7:31 PM CDT 1,250 mg New Bag 03/23/2024 7:52 AM CDT 1,250 mg New Bag 03/22/2024 9:03 PM CDT 1,250 mg vasopressin in 5% dextrose (VASOSTRICT) 20 unit/100 mL (0.2 unit/mL) infusion - ADS Override Pull Starting on Thu03/22/24 at 1710, For 1 dose, Created by cabinet override vasopressin in 5% dextrose (VASOSTRICT) 20 unit/100 mL (0.2 unit/mL) infusion 0.04 Units/min (12 mL/hr), 0.2 Units/mL, intravenous, Continuous, Starting on Thu03/22/24 at 1745, Until Thu03/25/24 at 1051, Initial rate: Do not titrate, Routine Rate/Dose Verify 03/23/2024 1:52 PM CDT 0.04 Units/min 12 mL/hr Rate/Dose Verify 03/23/2024 12:22 PM CDT 0.04 Units/min 12 mL/hr Rate/Dose Verify 03/23/2024 9:58 AM CDT 0.04 Units/min 12 mL/hr warfarin (COUMADIN) tablet 2 mg 2 mg, oral, Daily (for warfarin), First dose on Thu03/25/24 at 1800, Target INR: 2 - 3, Indications: Mechanical Valve Thromboembolism ProphylaxisIndications:Mechanical Valve Thromboembolism Prophylaxis Given 03/26/2024 5:35 PM CDT 2 mg warfarin (COUMADIN) tablet 5 mg 5 mg, oral, Daily (for warfarin), First dose (after last modification) on Thu03/27/24 at 1800, Target INR: 2 - 3, Indications: Mechanical Valve Thromboembolism ProphylaxisIndications:Mechanical Valve Thromboembolism Prophylaxis Given 03/28/2024 5:50 PM CDT 5 mg Given 03/27/2024 8:49 PM CDT 5 mg warfarin (COUMADIN) tablet 7.5 mg 7.5 mg, oral, Daily (for warfarin), First dose (after last modification) on Thu03/29/24 at 1800, Target INR: 2 - 3, Indications: Mechanical Valve Thromboembolism ProphylaxisIndications:Mechanical Valve Thromboembolism Prophylaxis Given 03/29/2024 6:56 PM CDT 7.5 mg documented in this encounter Discontinued Medications Medication Sig Discontinue Reason Start Date End Da te warfarin (COUMADIN) 5 mg tablet Take 1 tablet (5 mg total) by mouth nightly 03/30/2024 metoprolol (LOPRESSOR) 25 mg tablet Take 2 tablets (50 mg total) by mouth 2 (two) times a day Stop Taking at Discharge 03/30/2024 eszopiclone (LUNESTA) 3 mg tablet Take 1 tablet (3 mg total) by mouth nightly at bedtime Stop Taking at Discharge 01/14/2024 03/30/2024 naltrexone (DEPADE) 50 mg tablet Take 1 tablet (50 mg total) by mouth nightly Stop Taking at Discharge 03/30/2024 documented as of this encounter Active and Recently Administered Medications Times are shown in CDT. Scheduled Medication Order 03/28/2024 03/29/2024 03/30/2024 acetaminophen (TYLENOL) tablet 1,000 mg(Linked Group 1) 1,000 mg, oral, Every 6 hours scheduled, First dose on Thu03/22/24 at 1300, If able to swallow medications., Indications: Pain 0127 (Given - Provider: Ayad Rowe, KATHERIN)0626 (Given - Provider: Ayad Rowe, KATHERIN)1159 (Given - Provider: Brayan Dyer)1750 (Given - Provider: Brayan Dyer)2239 (Given - Provider: Ayad Rowe, RN) 0537 (Given - Provider: Ayad Rowe RN)1304 (Given - Provider: Brayan Dyer)1856 (Given - Provider: Brayan Dyer) 0043 (Given - Provider: Ayad Rowe RN)0457 (Given - Provider: Ayad Rowe, RN)1339 (Given - Provider: Christo Zendejas, KATHERIN) albuterol 2.5 mg /3 mL (0.083 %) nebulizer solution 2.5 mg (CANCELED) 2.5 mg, nebulization, Every 6 hours (correspondent), First dose on Thu03/22/24 at 1500, Indications: Bronchospastic Pulmonary Disease 0240 (Given - Provider: Sole Louis RRT)0811 (Given - Provider: Sherman Easton RRT)1421 (Given - Provider: Sherman Easton RRT)2052 (Given - Provider: Keenan Sargent RRT) 0244 (Given - Provider: Keenan Sargent RRT)0849 (Not Given - Provider: Alex Fleming CRTT - Reason: Patient not available)1330 (Given - Provider: Alex Fleming CRTT)2213 (Not Given - Provider: Aracelis Brenner RRT - Reason: Patient not available) albuterol 2.5 mg /3 mL (0.083 %) nebulizer solution 2.5 mg 2.5 mg, nebulization, 4 times daily, First dose (after last modification) on Thu03/30/24 at 0800, Indications: Bronchospastic Pulmonary Disease 0940 (Given - Provider: Keila Ward, YANNA)1200 (Due) amiodarone (PACERONE) tablet 400 mg 400 mg, oral, Daily, First dose on Thu03/25/24 at 1615 1750 (Given - Provider: Brayan Dyer) 163 (Given - Provider: Brayan Dyer) aspirin enteric coated tablet 81 mg(Linked Group 2) 81 mg, oral, Daily, First dose on Thu03/22/24 at 1300, Administer EC oral tablet if able to swallow medications. Do not crush, chew, cut, dissolve, open or otherwise manipulate tablet/capsule. 0825 (Given - Provider: Brayan Dyer) 0826 (Given - Provider: Brayan Dyer) 0819 (Given - Provider: Christo Zendejas, KATHERIN) buPROPion SR (WELLBUTRIN SR) 12 hour tablet 150 mg 150 mg, oral, 2 times daily, First dose on Thu03/23/24 at 2100, Do not crush, chew, cut, dissolve, open or otherwise manipulate tablet/capsule. 0842 (Given - Provider: Brayan Dyer)2019 (Given - Provider: Ayad Rowe, KATHERIN) 08 (Given - Provider: Brayan Dyer)2043 (Given - Provider: Ayad Rowe, KATHERIN) 0819 (Given - Provider: Christo Zendejas, KATHERIN) dilTIAZem XR (CARDIZEM CD,DILACOR XR) 24 hour capsule 240 mg 240 mg, oral, Daily with dinner, First dose (after last modification) on Thu03/24/24 at 1800, Do not crush, chew, cut, dissolve, open or otherwise manipulate tablet/capsule. 1750 (Given - Provider: Brayan Dyer) 163 (Given - Provider: Brayan Dyer) enoxaparin (LOVENOX) syringe 80 mg (CANCELED) 80 mg (rounded from 76.6 mg = 1 mg/kg ? 76.6 kg), subcutaneous, Every 12 hours scheduled, First dose on Thu03/29/24 at 1300, Indications: Mechanical Valve Thromboembolism Prophylaxis 1305 (Given - Provider: Brayan Dyer)2044 (Given - Provider: Ayad Rowe, RN) 08 (Given - Provider: Christo Zendejas, KATHERIN - Comment: Self-administered by patient) famotidine (PEPCID) tablet 20 mg 20 mg, oral, 2 times daily, First dose on Thu03/24/24 at 2100 0825 (Given - Provider: Brayan Dyer)2020 (Given - Provider: Ayad Rowe RN) 08 (Given - Provider: Brayan Dyer)2043 (Given - Provider: Ayad Rowe RN) 08 (Given - Provider: Christo Zendejas, KATHERIN) furosemide (LASIX) 10 mg/mL injection 40 mg (CANCELED) 40 mg, intravenous, Daily, First dose (after last modification) on Thu03/27/24 at 0900, For IV push: administer doses < 160 mg at a rate of 20 -40 mg/min. Doses >/= 160 mg should be administered no faster than 4 mg/min. Room temperature only 08 (Given - Provider: Brayan Dyer) furosemide (LASIX) tablet 40 mg 40 mg, oral, Daily, First dose on Thu03/29/24 at 0900 08 (Given - Provider: Brayan Dyer) 08 (Given - Provider: Christo Zendejas, KATHERIN) insulin lispro (HumaLOG, ADMELOG) 100 unit/mL injection 0-10 Units 0-10 Units, subcutaneous, 5 times daily (with meals, nightly, and 0200), First dose on Thu03/23/24 at 1800, Blood glucose mg/dL: 149 or less: No insulin 150-199: add 2 unit 200-249: add 4 units 250-299: add 6 units 300-349: add 8 units and notify physician for adjustment of insulin orders. 350-399: add 10 units and notify physician for adjustment of insulin orders. Over 400: Notify physician for adjustment of insulin orders. Do NOT hold for NPO Status, Indications: Diabetes Mellitus 0128 (Not Given - Provider: Ayad Rowe RN - Reason: Order parameters not met)0803 (Not Given - Provider: Brayan Dyer - Reason: Order parameters not met)1212 (Not Given - Provider: Brayan Dyer - Reason: Order parameters not met)1753 (Not Given - Provider: Brayan Dyer - Reason: Order parameters not met)2030 (Given - Provider: Ayad Rowe RN) 0147 (Not Given - Provider: Ayad Rowe RN - Reason: Order parameters not met)0805 (Not Given - Provider: Brayan Dyer - Reason: Order parameters not met)1308 (Given - Provider: Brayan Dyer)163 (Not Given - Provider: Brayan Dyer - Reason: Order parameters not met)2051 (Not Given - Provider: Ayad Rowe RN - Reason: Order parameters not met) 012 (Not Given - Provider: Ayad Rowe RN - Reason: Order parameters not met)0822 (Not Given - Provider: Christo Zendejas RN - Reason: Order parameters not met)1200 (Due) losartan (COZAAR) tablet 25 mg 25 mg, oral, Daily, First dose on Thu03/26/24 at 1030 0825 (Given - Provider: Brayan Dyer) 08 (Given - Provider: Brayan Dyer) 08 (Given - Provider: Christo Zendejas RN) methocarbamoL (ROBAXIN) tablet 500 mg 500 mg, oral, 3 times daily, First dose on Thu03/23/24 at 0900 0825 (Given - Provider: Brayan Dyer)175 (Given - Provider: Brayan Dyer)2019 (Given - Provider: Ayad Rowe RN) 08 (Given - Provider: Brayan Dyer)163 (Given - Provider: Brayan Dyer)2043 (Given - Provider: Ayad Rowe RN) 0819 (Given - Provider: Christo Zendejas RN) metoprolol tartrate (LOPRESSOR) immediate release tablet 25 mg 25 mg, oral, 2 times daily, First dose (after last modification) on Thu03/27/24 at 0900 0825 (Given - Provider: Brayan Dyer)2019 (Given - Provider: Ayad Rowe RN) 0826 (Given - Provider: Brayan Dyer)2044 (Given - Provider: Ayad Rowe RN) 0819 (Given - Provider: Christo Zendejas RN) polyethylene glycol (MIRALAX) packet 17 g 17 g, oral, Daily, First dose on Thu03/22/24 at 1300, Hold for diarrhea, Indications: constipation 0825 (Given - Provider: Brayan Dyer) 09 (Not Given - Provider: Brayan Dyer - Reason: Patient/family refused) 08 (Not Given - Provider: Christo Zendejas, KATHERIN - Reason: Patient/family refused) potassium chloride ER (KLOR-CON) extended release tablet 40 mEq (COMPLETED) 40 mEq, oral, Once, On Thu03/28/24 at 0930, For 1 dose, Do not crush, chew, cut, dissolve, open or otherwise manipulate tablet/capsule. 1159 (Given - Provider: Brayan Dyer) QUEtiapine (SEROquel) tablet 50 mg 50 mg, oral, Nightly, First dose on Thu03/24/24 at 0000 2019 (Given - Provider: Ayad Rowe RN) 2043 (Given - Provider: Ayad Rowe RN) rOPINIRole (REQUIP) tablet 4 mg 4 mg, oral, 2 times daily, First dose on Thu03/26/24 at 2230 0824 (Given - Provider: Brayan Dyer)2019 (Given - Provider: Ayad Rowe RN) 09 (Given - Provider: Brayan Dyer)2043 (Given - Provider: Ayad Rowe, RN) 0819 (Given - Provider: Christo Zendejas, KATHERIN) rosuvastatin (CRESTOR) tablet 10 mg 10 mg, oral, Nightly, First dose on Thu03/25/24 at 2100 2019 (Given - Provider: Ayad Rowe RN) 2043 (Given - Provider: Ayad Rowe, RN) senna-docusate (PERICOLACE) 8.6-50 mg per tablet 2 tablet 2 tablet, oral, 2 times daily, First dose on Thu03/22/24 at 1300, Hold for diarrhea., Indications: constipation 0825 (Given - Provider: Brayan Dyer)2019 (Given - Provider: Ayad Rowe RN) 09 (Not Given - Provider: Brayan Dyer - Reason: Patient/family refused)2043 (Given - Provider: Ayad Rowe RN) 0823 (Not Given - Provider: Christo Zendejas RN - Reason: Patient/family refused) sodium chloride 0.9% flush 0.5-20 mL 0.5-20 mL, intra-catheter, Every 8 hours scheduled, First dose on Thu03/22/24 at 1400, Flush volume based on line type and size. 0626 (Given - Provider: Ayad Rowe RN)0843 (Given - Provider: Brayan Dyer)175 (Given - Provider: Brayan Dyer)2023 (Given - Provider: Ayad Rowe RN) 0538 (Given - Provider: Ayad Rowe RN)131 (Given - Provider: Brayan Dyer)2044 (Given - Provider: Ayad Rowe RN) 045 (Given - Provider: Ayad Rowe RN)1400 (Due) warfarin (COUMADIN) tablet 5 mg (CANCELED) 5 mg, oral, Daily (for warfarin), First dose (after last modification) on Thu03/27/24 at 1800, Target INR: 2 - 3, Indications: Mechanical Valve Thromboembolism Prophylaxis 175 (Given - Provider: Brayan Dyer) warfarin (COUMADIN) tablet 7.5 mg (CANCELED) 7.5 mg, oral, Daily (for warfarin), First dose (after last modification) on Thu03/29/24 at 1800, Target INR: 2 - 3, Indications: Mechanical Valve Thromboembolism Prophylaxis 1856 (Given - Provider: Brayan Dyer) Continuous Medication Order 03/28/2024 03/29/2024 03/30/2024 heparin in 0.45% sodium chloride 25,000 units/250 mL (100 units/mL) infusion (premix) (CANCELED) 0-33 Units/kg/hr ? 77.9 kg (0-25.707 mL/hr, rounded to 0-25.71 mL/hr), intravenous, Titrated, Starting on Thu03/25/24 at 1300, WEIGHT-BASED HEPARIN INFUSION Initial dose:: 12 Units/kg/hr. Max initial dose: 1,000 units/hr. Adjust infusion based upon nomogram: PTT less than 46 seconds:? Bolus if ordered (see PRN bolus order) , then increase infusion dose 3 units/kg/hour PTT 46 - 55 seconds:? Bolus if ordered (see PRN bolus order), then increase infusion dose 2 units/kg/hour PTT 56 - 65 seconds:? Increase infusion dose 1 unit/kg/hour PTT 66 - 100 seconds:? No??change PTT 101 - 110 seconds:? Decrease infusion dose 1 unit/kg/hour PTT 111 - 120 seconds:? Hold infusion for 30 minutes, then decrease infusion dose 2 units/kg/hour PTT greater than 120 seconds:?Hold infusion for 1 hour, then decreaseinfusion dose 3 units/kg/hour Draw STAT PTT 6 hrs after initiation of heparin infusion, draw STAT PTT 6 hours after each dose change, and every 6 hours until 2 consecutive PTTs are within therapeutic range. Once two consecutive PTT's are therapeutic (66-100 seconds), then draw PTT every AM until heparin is discontinued., Indications: atrial fibrillation 0128 (New Bag - Provider: Ayad Rowe RN)1330 (New Bag - Provider: Brayan Dyer)1555 (Rate/Dose Change - Provider: Brayan Dyer) 0143 (New Bag - Provider: Ayad Rowe RN)0719 (Handoff - Provider: Brayan Dyer)1230 (Stopped - Provider: Brayan Dyer) PRN Medication Order 03/28/2024 03/29/2024 03/30/2024 Carrier Fluids for Secondary Infusion - 0.9% Sodium Chloride 30 mL, intravenous, As needed, For priming tubing and/or flushing, Starting on Thu03/22/24 at 1228, 0-250 ml/hr to flush line after IV infusions when no maintenance IV ordered. Infuse 30mL at the same rate as the secondary infusion. Run as primary IV, not intended for KVO. dextrose (D10W) 10% bolus 250 mL(Linked Group 3) 250 mL, intravenous, at 1,000 mL/hr, Administer over 15 Minutes, Every 15 min PRN, blood glucose less than 70 mg/dL and UNABLE to swallow/take PO glucose/juice., Starting on Thu03/23/24 at 1437, After treatment for hypoglycemia, recheck BG followed by treatment every 15 minutes until the BG is greater than 100 mg/dL. Then check BG 1 hour post treatment. If BG is less than 100 mg/dL, repeat Q15 minute BG checks and treatment. Call MD for each episode of hypoglycemia., Indications: hypoglycemic disorder dextrose oral liquid liquid 15 g(Linked Group 3) 15 g, oral, Every 15 min PRN, low blood sugar, blood glucose less than 70 mg/dL, Starting on Thu03/23/24 at 1437, If patient is alert and able to eat/drink, give 15 gm glucose or one juice (4 fluid ounces) NOT ORANGE JUICE. After treatment for hypoglycemia, recheck BG followed by treatment every 15 minutes until the BG is greater than 100 mg/dL. Then check BG 1 hour post-treatment. If BG is less than 100 mg/dL, repeat Q15 minute BG checks and treatment. Call MD for each episode of hypoglycemia., Indications: hypoglycemic disorder glucagon injection 1 mg 1 mg, intramuscular, Every 30 min PRN, low blood sugar, blood glucose less than 70 mg/dL AND no IV access AND unable to take PO glucose/juice., Starting on Thu03/23/24 at 1437, After Glucagon is administered, position patient on side if possible to avoid aspiration. Obtain IV access. Follow glucagon treatment with glucose treatment or IV dextrose. After treatment for hypoglycemia, recheck BG followed by treatment every 15 minutes until the BG is greater than 100 mg/dL. Then check BG 1 hour post treatment. If BG is less than 100 mg/dL, repeat Q15 minute BG checks and treatment. Call MD for each episode of hypoglycemia. Reconstitute 1 mg vial with 1 mL SWFI. Use immediately following reconstitution. oxyCODONE (ROXICODONE) tablet 10 mg 10 mg, oral, Every 4 hours PRN, 1st line for pain, Starting on Thu03/23/24 at 0905, Indications: Pain 0636 (Given - Provider: Ayad Rowe, RN)2030 (Given - Provider: Ayad Rowe RN) 0142 (Given - Provider: Ayad Rowe RN)0951 (Given - Provider: Brayan Dyer)1631 (Given - Provider: Brayan Dyer) 0048 (Given - Provider: Ayad Rowe RN)0819 (Given - Provider: Christo Zendejas, KATHERIN - Comment: 02/07 with deep breathing)1339 (Given - Provider: Christo Zendejas, KATHERIN) prochlorperazine (COMPAZINE) injection 5 mg 5 mg, intravenous, Administer over 2 Minutes, Every 6 hours PRN, nausea, vomiting, Starting on Thu03/22/24 at 1228, Indications: Nausea and Vomiting sodium chloride 0.9% flush 0.5-20 mL 0.5-20 mL, intra-catheter, As needed, line care, Starting on Thu03/22/24 at 1228, Flush volume based on line type and size. Flush before and after each use. sodium chloride 0.9% infusion 10 mL/hr, intravenous, Continuous PRN, Hang bag with transfusion; infuse to keep IV line open in the event of a transfusion reaction., Starting on Thu03/22/24 at 0559, Pre-Op/Floor Linked Groups Order Group 1: acetaminophen (TYLENOL) tablet 1,000 mgJump to med 1,000 mg, oral, Every 6 hours scheduled, First dose on Thu03/22/24 at 1300, If able to swallow medications., Indications: Pain Or acetaminophen (TYLENOL) 32 mg/mL oral liquid 1,000 mg (CANCELED) 1,000 mg, feeding tube, Every 6 hours scheduled, First dose on Thu03/22/24 at 1300, If taking meds per tube., Indications: Pain Or acetaminophen (TYLENOL) suppository 650 mg (CANCELED) 650 mg, rectal, Every 6 hours scheduled, First dose on Thu03/22/24 at 1300, If unable to tolerate enteral administration., Indications: Pain Group 2: aspirin enteric coated tablet 81 mgJump to med 81 mg, oral, Daily, First dose on Thu03/22/24 at 1300, Administer EC oral tablet if able to swallow medications. Do not crush, chew, cut, dissolve, open or otherwise manipulate tablet/capsule. Or aspirin chewable tablet 81 mg (CANCELED) 81 mg, feeding tube, Daily, First dose on Thu03/22/24 at 1300, Administer chewable tablet per tube if receiving medictions per tube. Group 3: dextrose oral liquid liquid 15 gJump to med 15 g, oral, Every 15 min PRN, low blood sugar, blood glucose less than 70 mg/dL, Starting on Thu03/23/24 at 1437, If patient is alert and able to eat/drink, give 15 gm glucose or one juice (4 fluid ounces) NOT ORANGE JUICE. After treatment for hypoglycemia, recheck BG followed by treatment every 15 minutes until the BG is greater than 100 mg/dL. Then check BG 1 hour post-treatment. If BG is less than 100 mg/dL, repeat Q15 minute BG checks and treatment. Call MD for each episode of hypoglycemia., Indications: hypoglycemic disorder Or dextrose (D10W) 10% bolus 250 mLJump to med 250 mL, intravenous, at 1,000 mL/hr, Administer over 15 Minutes, Every 15 min PRN, blood glucose less than 70 mg/dL and UNABLE to swallow/take PO glucose/juice., Starting on Thu03/23/24 at 1437, After treatment for hypoglycemia, recheck BG followed by treatment every 15 minutes until the BG is greater than 100 mg/dL. Then check BG 1 hour post treatment. If BG is less than 100 mg/dL, repeat Q15 minute BG checks and treatment. Call MD for each episode of hypoglycemia., Indications: hypoglycemic disorder documented in this encounter Orders Medications Ordered That Eric ht Not Have Been Administered Count Last Ordered Date First Ordered Date furosemide (LASIX) 10 mg/mL injection 40 mg 1 03/25/2024 dilTIAZem (CARDIZEM) tablet 120 mg 2023 dilTIAZem CD/XR/XT (CARDIZEM CD,DILACOR XR) 24 hour capsule 120 mg 03/24/2024 sodium chloride 0.9% IVPB 0-250 mL 2023 dextrose (D10W) 10% bolus 250 mL 03/23/20 dextrose oral liquid liquid 15 g 03/23/20 glucagon injection 1 mg 1 03/23/2024 metoprolol tartrate (LOPRESS OR) immediate release tablet 12.5 mg 1 03/23/2024 acetaminophen (TYLENOL) 32 m g/mL oral liquid 1,000 mg 1 03/22/2024 acetaminophen (TYLENOL) suppository 650 mg 1 03/22/2024 Carrier Fluids for Secondary Infusion - 0.9% Sodium Chloride 2 03/22/2024 ceFAZolin (ANCEF) 1 gram/10 mL in sterile water (premix) 2,000 mg 1 03/22/2024 ceFAZolin (ANCEF) injection 1 03/22/2024 dextrose (D10W) 10% bolus 1-500 mL 1 2023 norepinephrine in dextrose 5 % (LEVOPHED) 8,000 mcg/250 mL (32 mcg/mL) infusion (premix) 1 03/22/2024 sodium chloride 0.9% flush 0.5-20 mL 2 03/04 sodium chloride 0.9% infusion 1 03/22/2024 sodium chloride 0.9% irrigation 1 vancomycin (VANCOCIN) solution 1 03/22/2024 vancomycin 1,000 mg/200 mL i n dextrose 5% (premix) 1,000 mg 1 03/22/2024 vancomycin 1500 mg/250 mL in sodium chloride 0.9% (premix) 1,500 mg 1 03/22/2024 Lab Orders Without Results Count Last Ordered D ate First Ordered Date POCT GLUCOSE DEVICE 58 03/30/2024 03/22/20 Diet Count Last Ordered Date First Orde red Date ADULT DISCHARGE DIET 1 03/29/2024 Nursing Count Last Ordered Date First Orde red Date DISCHARGE ACTIVITY 4 03/29/2024 DISCHARGE CALL PROVIDER 4 03/29/2024 DISCHARGE DRESSING 1 03/29/2024 DISCHARGE INSTRUCTIONS 2 03/29/2024 FOLLOW UP WITH ESTABLISHED PROVIDER 2 03/29 WEIGHT RESTRICTIONS 1 03/29/2024 TELEMETRY MONITORING 1 03/27/2024 REYES CATHETER - DISCONTINUE 1 03/25/2024 NURSING COMMUNICATION 1 03/24/2024 Consult Count Last Ordered Date First Orde red Date IP CONSULT TO NUTRITION SERVICES 1 03/29/20 IP CONSULT TO CARDIOLOGY 1 03/22/2024 Admission Count Last Ordered Date First Orde red Date ADMIT TO INPATIENT 1 03/22/2024 Transfer Count Last Ordered Date First Orde red Date TRANSFER PATIENT TO NEW UNIT 3 03/27/2024 03/22/2024 Discharge Count Last Ordered Date First Orde red Date DISCHARGE PATIENT 1 03/29/2024 CORE MEASURES Count Last Ordered Date First Ord ered Date REASON FOR NO VTE PROPHYLAXI S - HOSPITAL ADMISSION - MEDICATIONS 1 03/22/2024 documented in this encounter Care Teams Belt Maker Relationship Specialty Start Date End Date Carolyn Davis MD [address] [place] [address] PCP - General 10/31/15 Ernie Baldwin MD [id number] [place] [address] Surgeon Cardiothoracic Surgery 03/29/24 Tom De Jesus MD [address] [facility] [address] [place] [address] Consulting Physician Cardiology 03/29/24 documented as of this encounter
--- OUTSIDE RECORDS SUMMARY | 2024-07-19 21:59 | XMS_ITS | Encounter Summary ---
Author Organization [facility] Healthcare Address [address] [place] [address] Care Team Providers Care Cemetery Counselor Name Role Phone Carolyn Davis MD Primary Care Provider Encounter Details Date Type Department Care Team (Latest Contact Info) Description 03/18/2024 11:10 AM CDT - 03/18/2024 11:59 PM CDT Hospital Encounter [facility] [address] [place] [address] Aortic valve stenosis, etiology of cardiac valve disease unspecified Discharge Disposition: Discharge to home or self care Social History Tobacco Use Types Packs/Day Years Used Date Smoking Tobacco: Former Cigarettes Smokeless Tobacco: Never Comments:QUIT SMOKING 024 Alcohol Use Standard Drinks/Week Comments No 0 (1 standard drink = 0.6 oz pur e alcohol) AUDIT-C Answer Date Recorded Q1: How often do you have a drink containing alcohol? Never 03/18/2024 Q2: How many drinks containi ng alcohol do you have on a typical day when you are drinking? Patient does not drink Q3: How often do you have si x or more drinks on one occasion? Never 03/18/2024 Personal Safety Answer Date Recorded Have you ever been in or are you currently in a harmful physical or emotional relationship or is someone making you feel afraid or unsafe? 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 Gender Identity Not on file Sexual Orientation Not on file documented as of this encounter Medications at Time of Discharge [...] mouth nightly enoxaparin (LOVENOX) 80 mg/0.8 mL syringeIndications:Ut chanical Valve Thromboembolism Prophylaxis Inject 0.8 mL [...] route every day 0 0 08/08/2015 4 eszopiclone (LUNESTA) 3 mg tablet Take 1 tablet (3 mg total) by mouth nightly at bedtime 01/14/2024 4 furosemide (LASIX) 40 mg tablet Take 1 tablet (40 mg total) by mouth daily for 7 days 7 tablet 03/30/2024 4 methocarbamoL (ROBAXIN) 500 mg tablet Take 1 tablet (500 mg total) by mouth 3 (three) times a day as needed for muscle spasms 21 tablet 03/29/2024 4 metoprolol (LOPRESSOR) 25 mg tablet Take 2 tablets (50 mg total) by mouth 2 (two) times a day 4 naltrexone (DEPADE) 50 mg tablet Take 1 tablet (50 mg total) by mouth nightly 4 oxyCODONE (ROXICODONE) 5 mg immediate release tabletIndications:Godfrey n Take 1 tablet (5 mg total) by mouth every 4 (four) hours as needed for pain 27 tablet 03/29/2024 4 rosuvastatin (CRESTOR) 20 mg tablet Take 1 tablet (20 mg total) by mouth daily 30 tablet 11 01/11/2024 4 warfarin (COUMADIN) 5 mg tablet Take 1 tablet (5 mg total) by mouth nightly 4 warfarin (COUMADIN) 5 mg tablet Take 0.5 tablets (2.5 mg total) by mouth 3 (three) times a week AND 1 tablet (5 mg total) 4 (four) times a week. Take 2.5mg Tues, Thurs and Sat. Take 5mg Mon, Wed, Fri, Sun. 03/30/2024 4 documented as of this encounter Discharge Disposition Disposition Code Departure Means Destination Discharge to home or self care documented in this encounter Plan of Treatment Not on file documented as of this encounter Procedures Procedure Name Priority Date/Time Associated Diagnosis Comments XR CHEST PA LATERAL 2 VIEWS Schedule Routine, Read Routine (OP Routine) 03/18/2024 11:31 AM CDT Aortic valve stenosis, etiology of cardiac valve disease unspecified documented in this encounter Results * XR Chest PA Lateral 2 Views (03/18/2024 11:31 AM CDT) Anatomical Region Laterality Modality Body, Chest N/A Computed Radiogr aphy 03/18/2024 11:4 0 AM CDT Impressions 03/18/2024 11:40 AM CDT No active disease. Electronically signed by: Hamzah Mackey M.D. Narrative 03/18/2024 11:40 AM CDT EXAMINATION: XR CHEST PA LATERAL 2 VIEWS HISTORY: The patient is a 58-year-old male who presents with aortic stenosis. TECHNIQUE: PA and lateral view of the chest. FINDINGS: Lungs clear. ??Cardiovascular structures unremarkable. Procedure Note Hamzah Mackey MD - 03/18/2024 EXAMINATION: XR CHEST PA LATERAL 2 VIEWS HISTORY: The patient is a 58-year-old male who presents with aortic stenosis. TECHNIQUE: PA and lateral view of the chest. FINDINGS: Lungs clear. Cardiovascular structures unremarkable. IMPRESSION: No active disease. Electronically signed by: Hamzah Mackey M.D. Ernie Baldwin MD IMG XR PROCEDURES Final Result documented in this encounter Visit Diagnoses Diagnosis Aortic valve stenosis, etiology of cardiac valve disease unspecified documented in this encounter Care Teams Cemetery Counselor Relationship Specialty Start Date End Date Carolyn Davis MD [address] [facility] [address] [place] [address] PCP - General 10/31/15 documented as of this encounter
--- OUTSIDE RECORDS SUMMARY | 2024-07-19 21:59 | XMS_ITS | Encounter Summary ---
Author Organization [facility] Healthcare Address [address] [place] [address] Care Team Providers Care Copper Tapper Name Role Phone Carolyn Davis MD Primary Care Provider Ernie Baldwin MD Unavailable [phone] Tom De Jesus MD Unavailable Encounter Details Date Type Department Care Team (Latest Contact Info) Description 03/29/2024 Telephone Cardiology Jolanta Quintero DO [id number], [place] [address] Social History Tobacco Use Types Packs/Day [...] How often do you attend chur or religion services? Never 03/24/2024 Do you belong to any clubs o r organizations such as sabianism groups, unions, fraternal or athletic groups, or [...] any time in the past 12 m [facility], were you homeless or living in a [place] facility (including now)? No 03/24/2024 Personal Safety Answer Date Recorded Have you ever been in or are you currently in a harmful physical or emotional relationship or is someone making you feel afraid or unsafe? 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 Thank you! * Telephone Encounter - Jolanta Quintero DO - 03/29/2024 12:34 PM CDT This patient had mechanical aortic valve replacement on 03/22. He is going home this afternoon. He has a follow-up appointment with CT surgery on 04/28. If we could please arrange for an outpatient follow-up with near the end of May/ beginning of June, if available. Thank you so much. documented in this encounter Plan of Treatment Not on file documented as of this encounter Visit Diagnoses Not on filedocumented in this encounter Care Teams Copper Tapper Relationship Specialty Start Date End Date Carolyn Davis MD [address] [facility] [address] [place] [address] PCP - General 10/31/15 Ernie Baldwin MD [id number] [place] [address] Surgeon Cardiothoracic Surgery 03/29/24 Tom De Jesus MD [address] [facility] [address] [place] [address] Consulting Physician Cardiology 03/29/24 documented as of this encounter
--- OUTSIDE RECORDS SUMMARY | 2024-07-19 21:59 | XMS_ITS | Encounter Summary ---
Author Organization [facility] Healthcare Address [address] [place] [address] Care Team Providers Care Ct Tech Name Role Phone Carolyn Davis MD Primary Care Provider Ernie Baldwin MD Unavailable [phone] Tom De Jesus MD Unavailable Encounter Details Date Type Department Care Team (Late st Contact Info) Description 03/09/[address] [facility] Medical Group Cardiology [address] [place] [address] Tom De Jesus MD [facility] [address] Social History Tobacco Use Types Packs/Day Years Used Date Smoking Tobacco: Every Day Cigarettes Smokeless Tobacco: Never Alcohol Use Standard Drinks/Week Comments No 0 [...] How often do you attend chur or christian services? Never 03/24/2024 Do you belong to any clubs o r organizations such as gnosticist groups, unions, fraternal or athletic groups, or [...] any time in the past 12 m [facility], were you homeless or living in a penitentiary (including now)? No 03/24/2024 Personal Safety Answer Date Recorded Have you ever been in or are you currently in a harmful physical or emotional relationship or is someone making you feel afraid or unsafe? 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 She would like to discuss pts treatment and care,advised spouse that she will need to call the nurse caring for the pt in the hospital. * Telephone Encounter - Esthela Mccurdy - 03/09/2024 1:01 PM CDT Pt spouse states pt is currently being seen in ED. States pt was seen by someone in our office although he seems confused as to whatever he was told and can't remember much of what they told him. Pt spouse requesting a call back to discuss whatever pt was told to better explain to pt. Contact:[phone] documented in this encounter Plan of Treatment Not on file documented as of this encounter Visit Diagnoses Not on filedocumented in this encounter Care Teams Ct Tech Relationship Specialty Start Date End Date Carolyn Davis MD [address] [place] [address] PCP - General 10/31/15 Ernie Baldwin MD [id number] [place] [address] Surgeon Cardiothoracic Surgery 03/29/24 Tom De Jesus MD [address] [facility] [address] [place] [address] Consulting Physician Cardiology 03/29/24 documented as of this encounter
--- OUTSIDE RECORDS SUMMARY | 2024-07-19 21:59 | XMS_ITS | Encounter Summary ---
Author Organization [facility] Healthcare Address [address] [place] [address] Care Team Providers Care Welder Fitter Helper Name Role Phone Carolyn Davis MD Primary Care Provider Reason for Visit * Auth/Cert (Routine) Specialty Diagnoses / Procedures Referred By Kary t Referred To Contact Diagnoses Aortic valve stenosis, etiology of cardiac valve disease unspecified Aortic valve stenosis, etiology of cardiac valve disease unspecified [I35.0] Procedures [place] RPLCMT PROST AORTIC VALVE OPEN XCP HOMOGRF/STENT REPLACEMENT AORTIC VALVE, LAMBERTO Referral ID Status Reason Start Date Expiration Date Visits Re quested Visits Authorized [id number] 1 1 Encounter Details Date Type Department Care Team (Late st Contact Info) Description 03/22/2024 7:30 AM CDT - 03/22/2024 1:00 PM CDT Surgery [facility] Operating Room [address] [place] [address] Ernie Baldwin MD [id number] [place] [address] REPLACEMENT AORTIC VALVE, LAMBERTO Surgery Details Date/Time Status Location OR Service Patient Class Case Class Case Type Trauma Case? 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 Gender Identity Not on file Sexual Orientation Not on file documented as of this encounter Last Filed Vital Signs Vital Sign Reading Time Taken Comments Blood Pressure 129/57 03/22/2024 12:30 PM CDT Pulse 80 03/22/2024 1:00 PM CDT Temperature 35.4 ??C (95.7 ??F) 03/22/2024 12:30 PM C DT Respiratory Rate 16 03/22/2024 1:00 PM CDT Oxygen Saturation 100% 03/22/2024 1:00 PM CDT Inhaled Oxygen Concentration - - Weight 76.4 kg (168 lb 6.9 oz) 03/22/2024 12:30 PM CDT Height 183 cm (6' 0.05 ) 03/22/2024 12:30 PM CDT Body Mass Index 22.86 03/22/2024 12:30 PM CDT documented in this encounter Discharge Summaries * Christo Cota NP - 03/29/2024 3:35 PM CDT Physician Discharge Summary Patient ID: Stephan Madden [id number] 1965 (58 y.o.) Admit date: 03/22/2024 Discharge date and time: 03/30/2024 Attending Physician: Ernie Baldwin MD Primary Diagnosis: Aortic valve stenosis Secondary Diagnoses: Depression Hypertension Paroxysmal SVT Seizures NICOLE TIA Post operative atrial fibrillation Procedures performed during hospitalization: Aortic valve replacement using 23- millimeter Sanford mechanical aortic valve. Sternal plating by Dr. [...] discharge: Normal Sinus Rhythm Coumadin dose: 2.5mg //Thu; 5mg ///Sun Coumadin Indication: Mechanical valve Target INR: 2.5-35 [...] AM Ernie Baldwin MD CAR CH 209E 01/18/2025 2:00 PM Tom De Jesus MD [facility] [facility] Specialty Follow-up with PCP in 4-6 weeks Notify physician with fevers, chills, nausea, or vomiting, SOB, chest pain, or wound drainage. CBC and CMP to be drawn in one week and fax results to [phone]. Patient instructed to have INRdrawn on 04/01 at [facility] and faxed to [facility] office [phone]. He was provided with a standing order. Home health nursing admission is pending at the time of discharge and is being arranged by the patient's catalytic case operator with [employer]. Information on cardiac rehab was [...] . Signed: Christo Cota NP Cardiothoracic Surgery [facility] [phone] 43:30 PM Cosigned by Ernie Baldwin MD at 04/03/2024 2:57 PM CDT documented in this encounter Discharge Instructions * Discharge Instr - Diet* Gloria Christian RD - 03/29/2024 12:21 PM CDT Continue [...] fruits and vegetables. For questions, can call [facility] Dietitian's Office at [phone]. Additional resources available online from the [employer] at [email or web address]/[email or web address] documented in this encounter [...] mouth nightly enoxaparin (LOVENOX) 80 mg/0.8 mL syringeIndications:Ky chanical Valve Thromboembolism Prophylaxis Inject 0.8 mL [...] 03/30/2024 4 enoxaparin (LOVENOX) 80 mg/0.8 mL syringeIndications:Me chanical Valve Thromboembolism Prophylaxis Inject 0.8 mL [...] in this encounter Progress Notes * Angela Figueredo, LANI - 03/30/2024 2:00 PM CDT Physical Therapy PT PROGRESS NOTE PATIENT'S NAME:Stephan Madden :1965 AGE:58 y.o. ROOM:[id number] Past Medical History: Diagnosis Date Arthritis Atrial fibrillation (CMS/HCC) (HCC) Depression H/O ETOH abuse went to rehab for 3 months Heart murmur Hypertension Nonrheumatic aortic (valve) stenosis Paroxysmal SVT (supraventricular tachycardia) ([facility]) Seizures ([facility]) 1 x 3-4 years ago d/t ETHO [...] / sternal precautions APPEARANCE/POSTURE: seated in recliner, clinical research monitor intact, spouse present, patient dressed in street [...] at 03/30/2024 4:21 PM CDT * Christo Cota, REGULATOR PIN INSERTER - 03/30/2024 12:20 PM CDT Cardiothoracic Surgery [...] one week and have INR drawn at [place] Christo Cota NP Cardiothoracic Surgery [facility] Cosigned by Ernie Baldwin MD at [...] sodium chloride 0.9%, 0.5-20 mL, intra-catheter, Q8H [facility] Continuous Infusions:sodium chloride 0.9%, 10 mL/hr PRN [...] / Sex: 58 y.o. / male Room: [place] [address] : 1965 Date of service: 03/30/24 TIME [...] session: Yes Completed patient handoff and notified TELESALES PROFESSIONAL / RN, of patient's location and functional [...] shirt while Standing at bedside with overall Brantley. Patient required assistance for N/A - Independent. [...] at 03/30/2024 3:39 PM CDT * Jolanta Quintero DO - 03/29/2024 12:25 PM CDT CARDIOLOGY PROGRESS [...] and sedated. [facility] earlier today[facility] being [facility]. On sedation. 03/23-patient lying [...] 23mm Morro mech valve, doing well postoperatively. Echocardiogram today [...] Progress Note Stephan Rosales Chano 1965 Hospital DAY#7 7 Days Post-Op s/p: Procedures: * REPLACEMENT AORTIC VALVE, LAMBERTO Subjective: Patient resting in chair on room air. Had an episode this morning of numbness, tinglingin his left arm and left leg which lasted about 30 minutes. [place] like his left extremities were cool during [...] 7 Days Post-Op s/p AVR with 23mm Sanford valve + sternal plating Neuro: Transient left [...] INR management Christo Cota NP Cardiothoracic Surgery [facility] Cosigned by Ernie Baldwin MD at 04/03/2024 3:03 PM CDT * Nena Ray COTA - 03/29/2024 10:04 AM CDT Occupational Therapy NOTE / SESSION TYPE: DAILY PROGRESS / TREATMENT Patient's Name: Stephan Madden Age / Sex: 58 y.o. / male Room: [place] [address] : 1965 Date of service: 03/29/24 TIME [...] session: Yes Completed patient handoff and notified TELESALES PROFESSIONAL / RN, name: Denilson, of patient's location [...] / Sex: 58 y.o. / male Room: [place] [address] : 1965 Date of service: 03/28/24 TIME [...] session: Yes Completed patient handoff and notified TELESALES PROFESSIONAL / RN, name: Denilson, of patient's location [...] and standing at standard toilet with overall Brantley. Patient required assistance for N/A - Independent. UE dressing: Patient completed upper body dressing of Hospital gown as robe while Standing at bedside with overall Supervision assistance. Patient required assistance for verbal cue(s). Footwear: Patient completed footwear of Slip-on shoe(s) while Sitting on EOB with overall Brantley. Patient required assistance for N/A - Independent Grooming: Patient completed grooming of washing face, brushing teeth, washing hands, and combing hair while Standing at sink ~3 minutes with overall Brantley. Patient required assistance for N/A - Independent [...] Surgery Progress Note Stephan Madden 1965 Hospital DAY#6 6 Days Post-Op s/p: [...] 137* 115* Recent Labs Lab Units 03/28/24 0630 03/27/24 1423 03/27/24 0213 SODIUM mmol/L 137 139 [...] 6 Days Post-Op s/p AVR with 23mm Morro valve + sternal plating CVS: Afib postop, [...] Lovenox bridge Christo Cota NP Cardiothoracic Surgery [facility] Cosigned by Ernie Baldwin MD at 04/03/2024 3:03 PM CDT * Angela Figueredo PTA - 03/28/2024 9:24 AM CDT Physical Therapy PT PROGRESS NOTE PATIENT'S NAME:Stephan Madden :1965 AGE:58 y.o. ROOM:[place] [address] Past Medical History: Diagnosis Date Arthritis Atrial fibrillation (CMS/HCC) (HCC) Depression H/O ETOH abuse went to rehab for 3 months Heart murmur Hypertension Nonrheumatic aortic (valve) stenosis Paroxysmal SVT (supraventricular tachycardia) ([facility]) Seizures ([facility]) 1 x 3-4 years ago d/t ETHO Sleep apnea uses cpap SOB (shortness of breath) end of day chest feels tight and uncomfortable TIA (transient ischemic attack) hosp 03/08/2024 - 03/10/2024 Past Surgical History: Procedure Laterality Date CARDIAC CATHETERIZATION 02/23/2024 COLONOSCOPY OTHER SURGICAL HISTORY JAVIER TYMPANOSTOMY TUBE PLACEMENT Patient Active Problem List Diagnosis Tobacco dependence Nonrheumatic aortic valve stenosis Supraventricular tachycardia ([facility]) Lipid screening Aortic valve stenosis Aortic stenosis, [...] APPEARANCE/POSTURE: seated EOB, using urinal, I.V. intact, clinical research monitor intact, call light in reach, bed alarm [...] ambulation APPEARANCE/POSTURE (end of session): seated EOB, REGULATOR PIN INSERTER (Christo) present, patient spouse arrives, all lines [...] Baldwin. Uncomplicated OR course, AVR with 23mm Sanford, easy airway, received 750ml cell saver, 2100ml [...] HFpEF EF 60-70%, TIA Hospital Course 03/22 Mech AVR, NE/vaso/ epi/ 2 prbc, 1 ffp, [...] parameters for last 24 hours: I/O: Date 03/26/24699 - 03/27/2465803/27/24699 - 03/28/24 0659 Shift 2374-0252 3173-4697 24 Hour Total 4921-5942 7389-9398 24 Hour Total INTAKE P.O. 600 240 [...] plan with the patient's team and other medical/art consultant staff. This time was in addition [...] to floor Marlo Rdz MD Cardiothoracic Surgery [facility] * Tam Arias NP - 03/26/2024 10:03 [...] HFpEF EF 60-70%, TIA Hospital Course 03/22 [facility] AVR, NE/vaso/ epi/ 2 prbc, 1 ffp, [...] last 24 hours: I/O: Date 03/25/24699 - 03/26/2465803/26/24699 - 03/27/24 0659 Shift 5812-5055 1311-5359 24 Hour Total 3015-1610 1616-3995 24 Hour Total INTAKE P.O. 120 120 I.V.(mL/kg) 854(11) 854(11) Shift Total(mL/kg) 854(11) 854(11) 120(1.5) 120(1.5) OUTPUT Urine(mL/kg/hr) 2700(2.9) 1550(1.7) 4250(2.3) Shift Total(mL/kg) 2700(34.7) 1550(19.9) 4250(54.6) NET -1846 -1550 -3396 120 120 Weight (kg) 77.9 77.9 77.9 [...] plan with the patient's team and other medical/art consultant staff. This time was in addition [...] mmol/L 102 104 109 CO2 mmol/L 30 25 24 BUN SERUM mg/dL 22 23 25 CREATININE mg/dL 0.78* 0.71* 0.71* CALCIUM [...] 4 Days Post-Op s/p AVR with 23mm Sanford valve + sternal plating CVS: Afib converted [...] Dispo: CTICU Marlo Rdz MD Cardiothoracic Surgery [facility] Cosigned by Clem Schmidt MD at 03/26/2024 [...] Labs Lab Units 03/25/24 1206 03/25/24 0743 03/25/24 0505 CO2 mmol/L -- -- 24 CREATININE [...] and alert ASSESSMENT -severe s/p AVR 23mm Sanford mech valve -postop AFib with RVR -postop [...] NOTE PATIENT'S NAME:Stephan Madden :1965 AGE:58 y.o. ROOM:[place] [address] [address] Past Medical History: Diagnosis Date Arthritis Atrial fibrillation (CMS/HCC) ([facility]) Depression H/O ETOH abuse went to rehab for 3 months Heart murmur Hypertension Nonrheumatic aortic (valve) stenosis Paroxysmal SVT (supraventricular tachycardia) ([facility]) Seizures ([facility]) 1 x 3-4 years ago d/t ETHO [...] valve stenosis Aortic stenosis, severe TIME IN: 09 TIME OUT: 30 SUBJECTIVE Oh I'm good. How are you? [...] / Sex: 58 y.o. / male Room: [place] [address] : 1965 Date of service: 03/25/24 TIME [...] aortic (valve) stenosis Paroxysmal SVT (supraventricular tachycardia) ([facility]) Seizures ([facility]) 1 x 3-4 years ago d/t ETHO [...] session: Yes Completed patient handoff and notified TELESALES PROFESSIONAL / RN, name: Kelsey, of patient's location [...] note, consider this the discharge summary BONNIE Farias 03/25/24 Cosigned by Melvin Schaefer OT at [...] HFpEF EF 60-70%, TIA Hospital Course 03/22 [facility] AVR, NE/vaso/ epi/ 2 prbc, 1 ffp, [...] 03/24/24699 - 03/25/2465803/25/24699 - 03/26/24 0659 Shift 0139-5635 2689-6211 24 Hour Total 3327-9691 4614-1635 24 Hour Total INTAKE P.O. 650 650 [...] plan with the patient's team and other medical/art consultant staff. This time was in addition [...] VALVE, LAMBERTO Subjective: Slept well overnight, 1U PBR for Hgb of 6.9, chest tubes removed, [...] CHLORIDE mmol/L 109 108 109 CO2 mmol/L 22 20* BUN SERUM mg/dL 19 CREATININE mg/dL 0.71* 0.71* 0.68* CALCIUM [...] 3 Days Post-Op s/p AVR with 23mm Sanford valve + sternal plating CVS: Afib converted [...] Dispo: CTICU Marlo Rdz MD Cardiothoracic Surgery [facility] Cosigned by Ernie Baldwin MD at 03/25/2024 10:50 AM CDT * Jolanta Quintero DO - 03/24/2024 12:40 PM CDT CARDIOLOGY PROGRESS [...] and alert ASSESSMENT -severe s/p AVR 23mm Morro mech valve -postop AFib with RVR -postop anemia/thrombocytopenia -PSVT -hypertension -dyslipidemia -prior TIA PLAN/RECOMMENDATIONS -severe s/p AVR 23mm Sanford mech valve, continue current postop management, PT/OT. [...] PM CDT Cardiothoracic Surgery Progress Note Stephan Rosales Chano 1965 Hospital DAY#2 2 Days Post-Op s/p: [...] 2 Days Post-Op s/p AVR with 23mm Morro valve + sternal plating CVS: Afib with RVR, on amio gtt, increase dilt to home dose of 240 mg/daily, 25 mg metop today, chest tubes can be removed Pulm: moderate congestion, lasix today GI: Tolerating diet Renal: UOP adequate 1.2L ID: Completing course of prophylactic Abx D/L/T: Eric Nascimento, CT x 2, chest tubes out today, kajal out, eric out Prophylaxis: lovenox Dispo: CTICU Marlo Rdz MD Cardiothoracic Surgery [facility] Cosigned by Ernie Baldwin MD at 03/25/2024 10:50 AM CDT * Odin Cartagena, PT - 03/24/2024 7:40 AM CDT Physical Therapy INITIAL EVALUATION PATIENT'S NAME:Stephan Madden :1965 AGE:58 y.o. ROOM:[place] [address] TIME IN: 926 TIME OUT:957 CURRENT DIAGNOSIS AND HOSPITAL COURSE: Patient presented [...] aortic (valve) stenosis Paroxysmal SVT (supraventricular tachycardia) ([facility]) Seizures ([facility]) 1 x 3-4 years ago d/t ETHO [...] 18 = Likely require inpatient rehab or chcf placement at discharge APPEARANCE/POSTURE (end of session): [...] and Phos repletion - DC Chest tubes, [place], Reyes catheter HPI 58 yo male with worsening SOB and fatigue with exertion x1 year. Admitted to ICU s/p planned AVR with Dr. Baldwin. Uncomplicated OR course, AVR with 23mm Sanford, easy airway, received 750ml cell saver, 2100ml [...] HFpEF EF 60-70%, TIA Hospital Course 03/22 [facility] AVR, NE/vaso/ epi/ 2 prbc, 1 ffp, 1 plt, 2 cryo Scheduled Medications: acetaminophen, 1,000 mg, oral, Q6H HCAVO albuterol, 2.5 mg, nebulization, Q6H CHAVO (RT) [...] clevidipine, 0-32 mg/hr, Last Rate: 5 mg/hr (03/24/24619) dexmedeTOMIDine, 0-1.5 mcg/kg/hr, Last Rate: Stopped (03/23/24 1320) EPINEPHrine, 0-0.2 mcg/kg/min, Last Rate: Stopped (03/23/24 0645) norepinephrine, 0-2 mcg/kg/min, Last Rate: Stopped (03/23/24 1430) sodium chloride 0.9%, 10 mL/hr sodium chloride 0.9%, 20 mL/hr, Last Rate: 20 mL/hr (03/24/24619) sodium chloride 0.9%, 3-12 mL/hr, Last Rate: [...] 4.4 L/min/m2 I/O: Date 03/23/24699 - 03/24/24 0659 03/24/24699 - 03/25/24 0659 Shift 8849-7223 9131-5286 24 Hour Total 5410-9339 2018-6420 24 Hour Total INTAKE P.O. 300 310 [...] vasoplegic shock, expected - CTS Primary - 8/20: s/p AVR with Dr. Baldwin - Pre-operative [...] Team: FLAVIO Shift: AM Level of Billing: Critical Care [...] plan with the ICU team and other medical/art consultant staff, making frequent assessments and decisions [...] included. Critical Care Medicine Daily Progress Team: [facility] AM Subjective Patient is a 58 y.o. y/o male admitted on 03/22/2024 5:30 AM with the following indication(s) for ICU care s/p Mechanical AVR Interval History: Cleviprex for BP control HPI 58 yo male with worsening SOB and fatigue with exertion x1 year. Admitted to ICU s/p planned AVR with Dr. Baldwin. Uncomplicated OR course, AVR with 23mm Sanford, easy airway, received 750ml cell saver, 2100ml [...] HFpEF EF 60-70%, TIA Hospital Course 03/22 [facility] AVR, NE/vaso/ epi/ 2 prbc, 1 ffp, [...] plan with the ICU team and other medical/art consultant staff, making frequent assessments and decisions [...] at 03/30/2024 9:59 PM CDT * Melvin Schaefer, OT - 03/23/2024 1:55 PM CDT Occupational Therapy NOTE / SESSION TYPE: Initial Evaluation Patient Name: Stephan Madden Date of : 1965 Age / Sex: 58 y.o. 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 1 03/23/24 03/30/24 -- Goal Details: Patient will complete UE / LE dressing with supervision assistance one time Goal Start Date Expected End Date End Date OT STG - Misc 2 03/23/24 03/30/24 -- Goal Details: Patient will complete functional transfers with supervision assistance using least restrictive device one time Goal Start Date Expected End Date End Date OT STG - Misc 3 03/23/24 03/30/24 -- Goal Details: Patient [...] Lethargic, arousable ASSESSMENT -severe s/p AVR 23mm Sanford mech valve -PSVT -hypertension -dyslipidemia -prior TIA PLAN/RECOMMENDATIONS -severe s/p AVR 23mm Sanford mech valve, extubated earlier this morning (03/23). [...] this patient encounter in conjunction with Michelle Lopez NP. My impression/plan is --severe s/p AVR 23mm Morro mech valve, Extubated this a.m.. -hypotension, patient [...] AVR Interval History: Passed SBT Extubated to [place] Insulin gtt DC-d HDSSI started HPI 58 yo male with worsening SOB and fatigue with exertion x1 year. Admitted to ICU s/p planned AVR with Dr. Baldwin. Uncomplicated OR course, AVR with 23mm Sanford, easy airway, received 750ml cell saver, 2100ml [...] HFpEF EF 60-70%, TIA Hospital Course 03/22 [facility] AVR, NE/vaso/ epi/ 2 prbc, 1 ffp, [...] dexmedeTOMIDine, 0-1.5 mcg/kg/hr, Last Rate: 0.6 mcg/kg/hr (03/23/24 0743) EPINEPHrine, 0-0.2 mcg/kg/min, Last Rate: Stopped (03/23/24 0645) insulin regular, 0-30 Units/hr, Last Rate: 3.1 Units/hr (03/23/24 0631) Lactated Ringer's, 30 mL/hr, Last Rate: 30 mL/hr (03/22/24 07) norepinephrine, 0-2 mcg/kg/min, Last Rate: 0.08 mcg/kg/min (03/23/24 0630) propofol, 0-50 mcg/kg/min, Last Rate: 10 mcg/kg/min (03/23/24 0645) sodium chloride 0.9%, 10 mL/hr sodium chloride [...] chloride 0.9% Objective Vitals: Most Recent: Vitals: 03/23/24 0730 BP: Pulse: 90 Resp: 15 Temp: SpO2: [...] [1.8 L/min/m2-3 L/min/m2] 2.8 L/min/m2 I/O: Date 03/22/24699 - 03/23/2465803/23/24699 - 03/24/24 0659 Shift 1823-1416 6619-8527 24 Hour Total 6748-7529 3162-4980 24 Hour Total INTAKE I.V.(mL/kg) 2100(27.5) 1182.6(15.5) 3282.6(43) 55.2(0.7) 55.2(0.7) Blood 697 143 2032 IV Piggyback 100 1470 1570 Shift Total(mL/kg) 2660(34.8) 3602.6(47.2) 6262.6(82) 55.2(0.7) 55.2(0.7) OUTPUT Urine(mL/kg/hr) 1085(1.2) 495(0.5) 1580(0.9) 40 40 Blood 500 500 Chest Tube 092 982 9954 0 0 Shift Total(mL/kg) 2345(30.7) 915(12) 3260(42.7) [...] plan with the ICU team and other medical/art consultant staff, making frequent assessments and decisions [...] Progress Note Stephan Rosales Chano 1965 Hospital DAY#1 1 Day Post-Op s/p: [...] and peripheral IV Recent Labs Lab Units 03/23/24 0212 03/22/24 2147 03/22/24 1735 WBC K/cumm 14.5* 12.8* 16.1* HEMOGLOBIN g/dL 9.5* 9.3* 8.0* HEMATOCRIT % 27.0* 26.4* 23.1* PLATELETS K/cumm 96* 101* 124* Recent Labs Lab Units 03/23/24 0212 03/22/24 2147 03/22/24 1511 SODIUM mmol/L 143 145 143 POTASSIUM [...] interval not displayed. Recent Labs Lab Units 03/22/24214603/22/24 1735 03/22/24 1511 PH ART 7.38 7.37 7.34* PCO2 ART mmHg 40 41 45 PO2 ART mmHg 161* 172* 138* BASE EXC ART mmol/L -1 -2 -1 Drips: Vaso @ 0.04, epinephrine 0.01 mcg/kg/min, and norepinephrine 0.05 mcg/kg/min Imaging: Today's CXR RLL atelectasis, moderate effusion on right Assessment and Plan: 58 y.o. male 1 Day Post-Op s/p AVR with 23mm Sanford valve + sternal plating CVS: CI @ [...] Dispo: CTICU Marlo Rdz MD Cardiothoracic Surgery [facility] Cosigned by Ernie Baldwin MD at 03/25/2024 10:49 AM CDT * Marlo Portillo Handy, REGULATOR PIN INSERTER - 03/22/2024 10:40 PM CDTAssociated Order(s): Critical Care Post-Procedure Diagnose(s): Aortic valve stenosis, etiology of cardiac valve disease unspecified Images from the original note were not included. Critical Care Medicine Daily Progress Team: Community PM Subjective Patient is a 58 y.o. y/o male admitted on 03/22/2024 5:30 AM with the following indication(s) for ICU care s/p Mechanical AVR Interval History: Mech AVR NE/vaso for MAP >65 Add Epi [...] Baldwin. Uncomplicated OR course, AVR with 23mm Sanford, easy airway, received 750ml cell saver, 2100ml [...] HFpEF EF 60-70%, TIA Hospital Course 03/22 [facility] AVR, NE/vaso/ epi/ 2 prbc, 1 ffp, [...] vasopressin, 0.04 Units/min, Last Rate: 0.04 Units/min (08/20/24 1930) Medications Discontinued During This Encounter Medication Reason [...] 03/21/241899 - 03/22/24 0659(Not Admitted) 03/22/24699 - 03/23/2459 Shift 4664-5566 24 Hour Total 2551-7589 6090-9753 24 Hour Total INTAKE I.V.(mL/kg) 2100(27.5) 618.4(8.1) 2718.4(35.6) Blood 561 254 8086 IV Piggyback 100 850 950 Shift Total(mL/kg) 2660(34.8) 2418.4(31.7) 5078.4(66.5) OUTPUT Urine(mL/kg/hr) 1085(1.2) 210 1295 Blood 500 500 Chest Tube 350 257 7571 Shift Total(mL/kg) 2345(30.7) 470(6.2) 2815(36.8) NET 315 [...] AM Result Value Ref Range Product code P8420A26 Unit Number [id number] Product Blood Type BPOS Dispense Status PRESUMED TRANSFUSED Product code D0368Q42 Unit Number [id number] Product Blood Type BPOS Dispense Status ISSUED Product code T1977B34 Unit Number [id number] Product Blood Type BPOS Dispense Status CROSSMATCHED Product code N5297B14 Unit Number [id number] Product Blood Type BPOS Dispense Status CROSSMATCHED Prepare platelets: 2 Units Collection Time: 03/22/24 6:00 AM Result Value Ref Range Product code N5540P64 Unit Number [id number] Product Blood Type OPOS Dispense Status PRESUMED TRANSFUSED Prepare plasma: 2 Units Standard plasma Collection Time: 03/22/24 6:00 AM Result Value Ref Range Product code D2607W65 Unit Number [id number] Product Blood Type BPOS Dispense Status PRESUMED [...] PM Result Value Ref Range Product code Q8296Q10 Unit Number [id number] Product Blood Type APOS Dispense Status PRESUMED TRANSFUSED Product code N4585D46 Unit Number [id number] Product Blood Type APOS Dispense Status PRESUMED [...] line, PIVs Goals of care: full code [facility] PM Assessment and plan has been reviewed with attending, Dr Ajit Portillo NP Critical Care Performed by: Marlo Portillo NP Authorized by: Marlo Portillo NP CRITICAL CARE: Team: FLAVIO Shift: PM Level of Billing: Critical Care [...] plan with the ICU team and other medical/art consultant staff, making frequent assessments and decisions [...] 03/24/2024 1:22 AM CDT * Juan Tapia, [facility] - 03/22/2024 12:43 PM CDT Images from the original note were not included. Pharmacokinetic Consult - Vancomycin Dosing Stephan Madden is a 58 y.o. male [...] to microscopic and culture Urine, clean voided [[id number]] (Abnormal) Urine, clean voided Final result Component [...] of therapy. Juan Tapia RPh * Albania Jones NP - 03/22/2024 11:16 AM CDTAssociated Order(s): Critical [...] Baldwin. Uncomplicated OR course, AVR with 23mm Sanford, easy airway, received 750ml cell saver, 2100ml [...] flush 0.5-20 mL 0.5-20 mL intra-catheter Q8H [facility] vancomycin 1250 mg/250 mL in sodium chloride [...] intake/output data recorded. I/O this shift: In: 2465 [I.V.:2100; Blood:266; IV Piggyback:100] Out: 1974 [Urine:965; Blood:500; Chest Tube:510] LDA: Introducer 03/22/24 [...] parameters for last 24 hours: PAP: (14-28)/(8-17) 28/17 CVP: [2 mmHg-9 mmHg] 8 mmHg SVO2: [...] AM Result Value Ref Range Product code I6705E50 Unit Number [id number] Product Blood Type BPOS Dispense Status CROSSMATCHED Product code Y6824T52 Unit Number [id number] Product Blood Type BPOS Dispense Status CROSSMATCHED Product code B1229O66 Unit Number [id number] Product Blood Type BPOS Dispense Status CROSSMATCHED Product code R1418U82 Unit Number [id number] Product Blood Type BPOS Dispense Status CROSSMATCHED Prepare platelets: 2 Units Collection Time: 03/22/24 6:00 AM Result Value Ref Range Product code Y2762P86 Unit Number [id number] Product Blood Type OPOS Dispense Status ISSUED [...] plan with the ICU team and other medical/art consultant staff, making frequent assessments and decisions [...] - 02/26/2024 9:00 AM CDT Cardiothoracic Surgery [place] History & Physical [facility] Dr. Levar Morillo [...] to proceed. Maurisio Flower NP Cardiothoracic Surgery [facility] [phone] 411:59 AM Ernie Baldwin MD FACS Cardiothoracic Surgery [facility] Tonsorial Artist completed with [employer]ED INFORMATION SECURITY*[employer]. Tonsorial Artist variances may occur. Cosigned by Ernie Baldwin MD at 02/26/2024 3:14 PM CDT documented in this encounter Consult Notes * Gloria Christian RD - 03/29/2024 12:32 PM CDTAssociated Order(s): [...] History: Diagnosis Date Arthritis Atrial fibrillation (CMS/HCC) ([facility]) Depression H/O ETOH abuse went to rehab for 3 months Heart murmur Hypertension Nonrheumatic aortic (valve) stenosis Paroxysmal SVT (supraventricular tachycardia) ([facility]) Seizures ([facility]) 1 x 3-4 years ago d/t ETHO [...] < > 0.76* < > 0.80 0.78* [id number] mL/min/1.73 m2 >90 < > >90 < [...] ESTIMATED NEEDS: Total Kcal/kg Estimated Needs : 1913.18 Kcal/k. Type of Weight Used for Estimated [...] a 15 gram carbohydrate snack. 03/23/24 1437 03/23/24 1910 Adult Diet Restricted; Low Fat, Low Chol, [...] fruits and vegetables. For questions, can call [facility] Dietitian's Office at [phone]. Additional resources available online from the [place] at [email or web address]/en/healthy-[email or web address] Nutrition Follow-Up : 04/05/24 Gloria Christian MS, RD, LD * Silverio Santos - 03/28/2024 12:42 PM CDT [id number] Urgent: Anoint: Yes Holy Com: Yes Bless: Yes Misc: in room and communed Silverio Fabienne Santos * Silverio Santos - 03/27/2024 1:36 PM CDT [id number] Urgent: Anoint: Yes Holy Com: No Bless: Yes Misc: Silent prayer offered. [facility] * Silverio Santos - 03/24/2024 2:25 PM CDT [id number] Urgent: Anoint:Yes Holy Com: No - unable to swallow Bless: Yes Misc: Brother in room [facility] * Silverio Santos - 03/23/2024 3:02 PM CDT [id number] Urgent: Anoint: Yes Holy Com: No Bless: Yes Misc: Brother and [id number] in room [facility] * Jolanta Quintero DO - 03/22/2024 3:10 [...] mg/mL) infusion (premix), 0-32 mg/hr, intravenous, Titrated, Ernie Baldwin MD, Last Rate: 2 mL/hr at [...] infusion, 30 mL/hr, intravenous, Continuous, Ranjit Fernández NP, Last Rate: 30 mL/hr at 03/22/24 0743, [...] infusion, 10 mL/hr, intravenous, Continuous PRN, Re Hicks NP sodium chloride 0.9% infusion, 20 mL/hr, intravenous, [...] on ventilator ASSESSMENT -severe s/p AVR 23mm Morro mech valve -PSVT -hypertension -dyslipidemia -prior TIA PLAN/RECOMMENDATIONS -severe s/p AVR 23mm Sanford mech valve, doing well postoperatively. Wean vent [...] discharge needs arise, please contact the covering catalytic case operator. Discharge Disposition Code: 01 * Plan of Care - Liberty Ruelas RN - 03/30/2024 1:12 PM CDT 03/30/24 1311 Communications Important Message from Medicare notice given to patient? Not Applicable CLEMENT letter given? Not Applicable Patient choice (Home Health/Hospice) list given to patient/ambulatory services representative? Yes ([facility] Facility list given to patient/ambulatory services representative? Not Applicable Fiduciary Responsibility Patient/Designated decision maker was informed of [facility] fiduciary relationship as necessary Notice of Non-Covered Continued Stay or Hospital Services Given to Patient Not Applicable * Plan of Care - Liberty Ruelas RN - 03/30/2024 1:04 PM CDT CM spoke with the patient's Roaster Operator of [employer] for assistance with obtaining HH for the patient.CM received information for [facility] who provides assistance with seeking HH. Informationwas faxed and [facility] has initiated working on securing home yaron. was notified this shift thatif [facility] is unable to secure in network HH, [...] by CTS. HH pending. * Plan of [facility] - Brayan Dyer - 03/29/2024 6:21 PM CDT Problem: Skin Integrity Impairment Risk Goal: Mobility will improve Outcome: Progressing Flowsheets (Taken 03/23/2024 1757 by Carole Lundberg RN) Mobility will improve: Encourage mobilization to extent of ability, assist with range of motion as needed Assess circulation, sensation and/or motion of extremity Collaborate with physical therapy Encourage turning and repositioning, assist as needed Encourage ambulation Goal: Nutritional status will improve Outcome: Progressing Flowsheets (Taken 03/29/2024 1820) Nutritional status will improve: Monitor intake and [...] Outcome: Progressing Flowsheets (Taken 03/24/20241757 by Carole Lundberg, RN) Return activities of daily living status [...] Home Care Services Name and Phone Number [facility] Home Health [phone] OP Services N/A DME N/A Post Acute Care Facility N/A Afib post op - Amio PO; Diltiazem PO; WBC 11.6 03/28; Cr 0.75; Epi wire removed; Lasix; replace K+; heparin drip transition to warfin with Lovenox; CXR - (R) lower lobe collapse-consolidation Patient's plan is to return home with is who will transport him home; referral sent for . * [facility] Note - Liberty Ruelas RN - 03/28/2024 3:47 PM CDT [place] [address] Date: Mar 28, 2024 Ambulatory referral to Home Health Patient: Stephan Madden [address] [place] [address] : 1965 SSN: [id number] Sex: M Insurance: [employer] OPEN ACCESS Referring Provider Information: CHRISTO COTA Referral Information: # Visits: 1 Referral Type: Home Health [42] Urgency: Routine Referral Reason: Specialty Services Required Start Date: Mar 28, 2024 End Date: To be determined by Insurer Diagnosis: Aortic stenosis, severe (I35.0) Refer to Dept: [facility] Home Care Services [address] [place], [address] Service Line: Home Health Primary disciplines requested: [facility] Home Health Services: [facility] Home Health Services: [...] Authorizing Provider: Christo Cota NP ( ) Process Control Engineer: Ernie Baldwin MD This document serves as a request of services and does not constitute Insurance authorization or approval of services. To determine eligibility, please contact the member???s Insurance carrier to verify and review coverage. If you have medical questions regarding this request for services. Please contact [facility] [phone] between the hours of 8:00am - 4:30pm [...] Goal: Maintains hematologic stability Outcome: Progressing * Ange of Kimberly - Kelsey Harrington RN - [...] bladder scan as needed Discuss catheterization for snf situations as appropriate Assess amount and/or characteristics [...] Ruelas RN - 03/24/2024 4:09 PM CDT CM Initial Assessment Interview Note Information Obtained From: Patient (03/24/24 7050) Admission Source: Non Medical (Home) Impression: 58 [...] step; works full-time; independent with ADLs; uses [employer] in [place], [place]; reliable transportation -car; smokes 1ppd x 35 years; smoke marijuana 2x daily, however will indulge in gummies; interacts with friend; spouse deferred advance directives and would like to speak with the patien Primary Source of Transportation: Does the patient need discharge transport arranged?: No (Family for transport home) (03/24/24 1601) Health Insurance Coverage: [employer] Open Access Prescription Coverage: Yes Pharmacy: [id number] - [place], [place] - [address] [address] Primary Care Provider: aCrolyn Davis MD Prior to Admission: Functional Status: Independent with ADLs Primary Caregiver: Self Support System: Spouse/Significant Other, Family members (Spouse: Yumiko Madden [phone]) Home Care Services: No Outpatient Services: No Durable Medical Equipment: None Living Arrangements: Spouse/significant other, Children Type of Residence: Private residence Steps in home?: Yes, Outside of home Number of steps outside: 1 steps Medication management: Independent (03/24/24 1600) SDOH: Transportation: In the past 12 months, has lack of transportation kept you from medical appointments or from getting medications?: No In the past 12 months, has lack of transportation kept you from meetings, work, or from getting things needed for daily living?: No (03/24/241652) Financial Resource: How hard is it for you to pay for the very basics like food, housing, medical care, and heating?: Not very hard (03/24/241652) Housing: In the last 12 months, was there a time when you were not able to pay the mortgage or rent on time?: No In the past 12 months, how many times have you moved where you were living?: 0 At any time in the past 12 months, were you homeless or living in a correction (including now)?: No (03/24/241652) Utilities: Social Connections: In a typical week, how many times do you talk on the phone with family, friends, or neighbors?: Once a week How often do you get together with friends or relatives?: Once a week How often do you attend religious or anglican services?: Never Do you belong to any clubs or organizations such as religious groups, unions, fraternal or athletic groups, or [...] Screening Potential discharge needs include: Home Health: shelter (03/24/241608) OP Services: Dialysis: Behavioral Health Services: Behavioral Health Services: No (03/24/241608) Anticipated Level of Care: Anticipated discharge level of care: Private residence Pt/Family agrees with Anticipated Level of Care: Yes (03/24/24 1603) Patient expects to be Discharged to: Private residence, (03/24/24 160) Additional Information: CM met with patient at [...] Collaboration with Patient, Provider, Direct Care Nurse, Package Sealer Machine, and other members of theHealth Care Team to assure needed interventions completed. 2. Return patient to optimal level of self-care post discharge. 3. Roaster Operator will follow for Discharge Planning - interventions as needed 4. Anticipated level of care at discharge 5. Planned Discharge Disposition VI Hannon, RN train crew member [phone] * Plan of Care - Carole Lundberg [...] for any change in amount and/or color [place] appropriate cooling/warming therapies per order Administer medications [...] unit of FFP given. Critical care team REGULATOR PIN INSERTER, Jaron Portillo, noted effusion per ultrasound. Dr. Baldwin notified. Chest tubes stripped and epinephrine drip started. Started weaning sedation this am; pt very anxious and restless in bed. Precedex titrated for comfort and restlessness. * Plan of Care - Letty Warner CRTT - 03/23/2024 3:14 AM CDT Problem: Mechanical Ventilation Goal: Ventilator management will be safely performed Outcome: Progressing Flowsheets (Taken 03/23/2024313) Ventilator management will be safely performed: Hyper [...] Admit Date: 03/22/2024 SURGEON Ernie Baldwin MD AUTO SERVICE WRITER Marlo Rdz PREOPERATIVE DIAGNOSIS Aortic Stenosis POSTOPERATIVE DIAGNOSIS Aortic Stenosis PROCEDURE PERFORMED Aortic valve replacement using 23-millimeter Sanford mechanical aortic valve Sternal plating ANESTHESIA General. [...] - Primary Anesthesiologist: Sherron Archibald MD Anesthesiologist Salvage Supervisor: Vania Chaudhry AA Maker Up Folding: Thuy Miranda CCP Route Vending Machine Servicer: Venkat Yeager RN Scrub Relief: Prerna Smalls RN Scrub: Sole Weiner RN SURVEYING CREW RODMAN: Jl Ledesma CRNFA FLOAT: Brenna Johnson, KATHERIN; Gregg Mcdonald RN DATE OF SURGERY : [...] Implant Name Type Inv. Item Serial No. 3D Designer Lot No. LRB No. Used Action ON-X INTRNL Valve Coronary Aortic Mechanical On X 23mm [id number] - [id number] - [id number] ON-X INTRNL Valve Coronary Aortic Mechanical On X 23mm [id number] On-X Intrnl N/A 1 Implanted [employer] Screw Bone Slf Drl Full Thread Locking 3.5x16mm Ti 100.035.16 - [id number] [employer] Screw Bone Slf Drl Full Thread Locking 3.5x16mm Ti 100.035.16 [employer] N/A 6 Implanted [employer] Screw Bone Slf Drl Full Thread Locking 3.5x18mm Ti 100.035.18 - [id number] [employer] Screw Bone Slf Drl Full Thread Locking 3.5x18mm Ti 100.035.18 [employer] N/A 10 Implanted [employer] Plate Bone Low Profile 4 Hole Box Sternum Ti 115.103.04 - [id number] [employer] Plate Bone Low Profile 4 Hole Box Sternum Ti 115.103.04 [employer] N/A 1 Implanted [employer] Plate Bone Low Profile 6 Hole O Concave Sternum Ti 115.604.06 - [id number] [employer] Plate Bone Low Profile 6 Hole O Concave Sternum Ti 115.604.06 [employer] N/A 1 Implanted [employer] Plate Bone Low Profile 6 Hole H Shape Sternum Ti 115.102.06 - [id number] [employer] Plate Bone Low Profile 6 Hole H Shape Sternum Ti 115.102.06 [employer] N/A 1 Implanted Blood/Blood Products [...] BLOOD ORDERABLES Final Res ult ORI [address] Department [place] [address] * (ABNORMAL) Protime-INR (03/30/2024 9:54 AM CDT) PT 38.7(H) 9.7 - 13.0 sec INR 3.49(H) 0.90 - 1.20 ORI Comment: Interpretive data Oral anticoagulant therapeutic ranges: Venous thromboembolism prophylaxis or treatment: 2.0-3.0 CARDIOLOGY Standard range: 2.0-3.0 High-intensity range: 2.5-3.5 Refer to indication-specific guidelines for appropriate target ranges for prosthetic heart valve replacement. Current interpretive data was last revised on 2019. Blood 03/30/2024 9:54 AM CDT 03/30/2024 9:57 AM CDT Christo Cota NP LAB BLOOD ORDERABLES Final Result Performing Organization Address [facility] de Phone Number ORI [address] Department [place] [address] * (ABNORMAL) Basic metabolic panel (03/30/2024 9:54 AM CDT) Pathologist [facility] Sodium 138 135 - 145 mmol/L Potassium, pl 4.0 3.3 - 4.9 mmol/L [facility] Chloride 102 97 - 110 mmol/L [facility] CO2 24 22 - 32 mmol/L [facility] Anion gap 12 2 - 15 mmol/L [facility] BUN 24 6 - 25 mg/dL [facility] Creatinine 0.67(L) 0.80 - 1.30 mg/dL [facility] Comment:Icteric sample, test results may be affected. Glucose 187 70 - 199 mg/dL ORI Comment: Interpretive Data Fasting glucose >/= 126 [...] 2022. Calcium 9.1 8.5 - 10.3 mg/dL [facility] Blood 03/30/2024 9:54 AM CDT 03/30/2024 9:57 AM CDT Ernie Baldwin MD LAB BLOOD ORDERABLES Final Res ult Performing Organization Address [facility] Co de Phone Number ORI [address] [address] Department [place] [address] * POCT glucose (03/30/2024 7:38 AM CDT) Glucose, POC 122 70 - 199 mg/dL Blood 03/30/2024 7:38 AM CDT 03/30/2024 7:38 AM CDT Ernie Baldwin MD LAB POCT ORDERABLES - DEVICE F inal Result Performing Organization Address [facility] de Phone Number ORI [address] [address] Department [place] [employer] [place] [address] * XR Chest 1 View (03/30/2024 4:12 [...] atelectasis. Electronically signed by: Hamzah Mackey M.D. Christo Cota REGULATOR PIN INSERTER IMG XR PROCEDURES Final Re sult * POCT glucose (03/30/2024 12:46 AM CDT) Glucose, POC 105 70 - 199 mg/dL Blood 03/30/2024 12:4 6 AM CDT 03/30/2024 12:46 AM CDT Ernie Baldwin MD LAB POCT ORDERABLES - DEVICE F inal Result Performing Organization Address [facility] de Phone Number [facility] [address] [address] [place] [address] * POCT glucose (03/29/2024 8:50 PM CDT) Glucose, POC 139 70 - 199 mg/dL Blood 03/29/2024 8:50 PM CDT 03/29/2024 8:50 PM CDT Ernie Baldwin MD LAB POCT ORDERABLES - DEVICE F inal Result Performing Organization Address [facility] Co de Phone Number [facility] [address] [address] Department [place] [address] * POCT glucose (03/29/2024 4:37 PM CDT) Glucose, POC 120 70 - 199 mg/dL Blood 03/29/2024 4:37 PM CDT 03/29/2024 4:37 PM CDT Ernei Baldwin MD LAB POCT ORDERABLES - DEVICE F inal Result Performing Organization Address [facility] de Phone Number ORI [address] [address] [place] [address] * POCT glucose (03/29/2024 1:03 PM CDT) Glucose, POC 151 70 - 199 mg/dL Blood 03/29/2024 1:03 PM CDT 03/29/2024 1:03 PM CDT Ernie Baldwin MD LAB POCT ORDERABLES - DEVICE F inal Result Performing Organization Address [facility] de Phone Number ORI [address] [place] [address] * TRANSTHORACIC ECHO (TTE) COMPLETE W DOPPLER/CF WO CONTRAST (03/29/2024 10:30 AM CDT) Anatomical Region Laterality Modality Ultrasound 03/29/2024 8:35 AM CDT Narrative 03/29/2024 3:21 PM CDT [address] [address] Echocardiogram Report Patient Name: STEPHAN MADDEN A : 1965 Study Date: 03/29/2024 8:35:42 AM Gender: M Tech: Location: [id number] Ref Provider: CHRISTO COTA ?Height(Cm): 183 BSA: [...] Procedure Note [place] Ruvalcaba MD - 03/29/2024 [place] [address] Echocardiogram Report Patient Name: STEPHAN MADDEN A : 1965 Study Date: 03/29/2024 8:35:42 AM Gender: M Tech: Location: [id number] Ref Provider: CHRISTO COTA Height(Cm): 183 BSA: [...] * (ABNORMAL) Protime-INR (03/29/2024 8:48 AM CDT) PT 18.1(H) 9.7 - 13.0 sec INR [...] CDT 03/29/2024 9:04 AM CDT Christo Cota REGULATOR PIN INSERTER LAB BLOOD ORDERABLES Final Result ORI [address] [facility] Department [place] [address] * eGFR (03/29/2024 5:40 AM CDT) eGFR >90 >=60 mL/min/1. 73 [...] ORDERABLES Final Res ult Performing Organization Address City/[facility] Co de Phone Number ORI [address] [place] [address] * (ABNORMAL) aPTT (03/29/2024 5:40 [...] ORDERABLES Final Res ult Performing Organization Address City/[facility]/[place] [address] [address] Department [place] [employer] [place] [address] * (ABNORMAL) Basic metabolic panel (03/29/2024 5:40 AM CDT) Pathologist [facility] Sodium 137 135 - 145 mmol/L Potassium, pl 3.3 3.3 - 4.9 mmol/L [facility] Chloride 100 97 - 110 mmol/L [facility] CO2 25 22 - 32 mmol/L [facility] Anion gap 12 2 - 15 mmol/L [facility] BUN 26(H) 6 - 25 mg/dL [facility] Creatinine 0.73(L) 0.80 - 1.30 mg/dL [facility] Comment:Icteric sample, test results may be affected. Glucose 116 70 - 199 mg/dL [facility] Comment: Interpretive Data Fasting glucose >/= [...] 2022. Calcium 9.0 8.5 - 10.3 mg/dL [facility] Blood 03/29/2024 5:40 AM CDT 03/29/2024 6:07 AM CDT us Ernie Baldwin MD LAB BLOOD ORDERABLES Final Res ult [facility] [address] [address] Department [place] [address] * (ABNORMAL) CBC without differential (03/29/2024 5:40 AM CDT) Pathologist [facility] WBC 11.8(H) 3.8 - 9.9 K/cumm Hgb 8.6(L) 13.0 - 17.5 g/dL [facility] Hct 26.1(L) 38.9 - 50.3 % [facility] Plt 192 150 - 400 K/cumm [facility] MPV 9.9 9.1 - 12.3 fL [facility] RBC 2.84(L) 4.30 - 5.80 M/cumm [facility]I [facility] MCV 91.9 81.3 - 96.4 fL [facility] MCH 30.3 27.1 - 33.3 pg [facility]I ST[facility]DARD MCHC 33.0 32.3 - 35.7 g/dL ORI CH RDW CV 14.4 11.1 - 14.9 % ORI CH RDW SD 47.6 35.7 - 48.1 fL [facility] NRBC abs 0.00 0.00 - 0.01 K/cumm [facility] Blood 03/29/2024 5:40 AM CDT 03/29/2024 6:07 AM CDT us Ernie Baldwin MD LAB BLOOD ORDERABLES Final Res ult [facility] [address] Department [place] [address] * XR Chest 1 View (03/29/2024 4:21 [...] study. Electronically signed by: Hamzah Mackey M.D. Christo Cota REGULATOR PIN INSERTER IMG XR PROCEDURES Final Re sult * POCT glucose (03/29/2024 1:39 AM CDT) Glucose, POC 123 70 - 199 mg/dL Blood 03/29/2024 1:39 AM CDT 03/29/2024 1:39 AM CDT Ernie Baldwin MD LAB POCT ORDERABLES - DEVICE F inal Result Performing Organization Address [facility] Co de Phone Number ORI [address] [address] [address] [employer] [place], [place] [id number] * (ABNORMAL) aPTT (03/29/2024 12:28 AM CDT) [...] ORDERABLES Final Res ult Performing Organization Address [facility] [place] [address] [address] [employer] [place], [place] [phone] * (ABNORMAL) aPTT (03/28/2024 10:04 PM CDT) [...] ORDERABLES Final Res ult Performing Organization Address [facility] Co de Phone Number ORI [address] [address] [facility] [employer] [place], [place] [id number] * POCT glucose (03/28/2024 8:19 PM CDT) Glucose, POC 175 70 - 199 mg/dL Blood 03/28/2024 8:19 PM CDT 03/28/2024 8:19 PM CDT Ernie Baldwin MD LAB POCT ORDERABLES - DEVICE F inal Result Performing Organization Address [facility] de Phone Number ORI [address] [address] [facility] [employer] [place], [place] [id number] * POCT glucose (03/28/2024 5:49 PM CDT) Glucose, POC 133 70 - 199 mg/dL Blood 03/28/2024 5:49 PM CDT 03/28/2024 5:49 PM CDT Ernie Baldwin MD LAB POCT ORDERABLES - DEVICE F inal Result Performing Organization Address [facility] de Phone Number ORI [address] [address] [facility] [employer] [place], [place] [phone] * (ABNORMAL) aPTT (03/28/2024 1:53 PM CDT) [...] ORDERABLES Final Res ult Performing Organization Address [facility] Co de Phone Number ORI STODDARD [address] Department [place] [place] [address] * POCT glucose (03/28/2024 11:58 AM CDT) Glucose, POC 141 70 - 199 mg/dL Blood 03/28/2024 11:5 8 AM CDT 03/28/2024 11:58 AM CDT Ernie Baldwin MD LAB POCT ORDERABLES - DEVICE F inal Result Performing Organization Address [facility] de Phone Number ORI STODDARD [address] [address] [place] [address] * XR Chest 1 View (03/28/2024 9:09 [...] are clear. ??The tip of a retracted Friendship-Stevie catheter is in the superior vena cava. [...] are clear. The tip of a retracted Friendship-Stevie catheter is in the superior vena cava. IMPRESSION: Right lower lobe collapse-consolidation. Electronically signed by: Hamzah Mackey M.D. us Christo Cota REGULATOR PIN INSERTER IMG XR PROCEDURES Final Re sult * [...] 6:30 AM CDT 03/28/2024 6:46 AM CDT Ernie Baldwin MD LAB BLOOD ORDERABLES Final Res ult Performing Organization Address [facility] Co de Phone Number ORI [address] [address] [facility] [place] [employer] [address] * (ABNORMAL) aPTT (03/28/2024 6:30 AM CDT) [...] ORDERABLES Final Res ult Performing Organization Address [facility] Co de Phone Number BANDARRIO [address] [address] [facility] [place] [employer] [address] * Protime-INR (03/28/2024 6:30 AM CDT) PT [...] ORDERABLES Final Res ult Performing Organization Address City/[facility] Co de Phone Number ORI STODDARD [address] [address] [place] [address] * (ABNORMAL) Basic metabolic panel (03/28/2024 6:30 AM CDT) Sodium 137 135 - 145 mmol/L Potassium, pl 3.4 3.3 - 4.9 mmol/L [facility] Chloride 99 97 - 110 mmol/L [facility] CO2 27 22 - 32 mmol/L [facility] Anion gap 11 2 - 15 mmol/L [facility] BUN 25 6 - 25 mg/dL [facility] Creatinine 0.75(L) 0.80 - 1.30 mg/dL [facility] Comment:Icteric sample, test results may be affected. Glucose 119 70 - 199 mg/dL [facility] Comment: Interpretive Data Fasting glucose >/= [...] 2022. Calcium 9.0 8.5 - 10.3 mg/dL [facility] Blood 03/28/2024 6:30 AM CDT 03/28/2024 6:42 AM CDT us Ernie Baldwin MD LAB BLOOD ORDERABLES Final Res ult ORI STODDARD [address] [address] [place] [address] * (ABNORMAL) CBC without differential (03/28/2024 6:30 AM CDT) WBC 11.8(H) 3.8 - 9.9 K/cumm Hgb 8.1(L) 13.0 - 17.5 g/dL [facility] Hct 24.4(L) 38.9 - 50.3 % [facility] Plt 169 150 - 400 K/cumm [facility] MPV 10.1 9.1 - 12.3 fL [facility] RBC 2.70(L) 4.30 - 5.80 M/cumm [facility] MCV 90.4 81.3 - 96.4 fL [facility] MCH 30.0 27.1 - 33.3 pg [facility] MCHC 33.2 32.3 - 35.7 g/dL [facility] RDW CV 14.3 11.1 - 14.9 % [facility] RDW SD 45.7 35.7 - 48.1 fL [facility] NRBC abs 0.00 0.00 - 0.01 K/cumm [facility] Blood 03/28/2024 6:30 AM CDT 03/28/2024 6:42 AM CDT Ernie Baldwin MD LAB BLOOD ORDERABLES Final Res ult Performing Organization Address City/[facility] Co de Phone Number ORI STODDARD [address] [address] [place] [address] * POCT glucose (03/28/2024 1:27 AM CDT) Glucose, POC 137 70 - 199 mg/dL Blood 03/28/2024 1:27 AM CDT 03/28/2024 1:27 AM CDT Ernie Baldwin MD LAB POCT ORDERABLES - DEVICE F inal Result Performing Organization Address [facility] Co de Phone Number ORI [address] [address] [place] [address] * aPTT (03/27/2024 9:37 PM CDT) Pathologist [facility] aPTT 32 28 - 38 sec Comment: Interpretive Data Heparin therapeutic range: 66.0 - 100.0 seconds. Range based on correlation with therapeutic heparin activity range of 0.3 - 0.7 Units/mL. Current interpretive data was last revised on 2023. Blood 03/27/2024 9:37 PM CDT 03/27/2024 9:48 PM CDT Ernie Baldwin MD LAB BLOOD ORDERABLES Final Res ult Performing Organization Address [facility] Co de Phone Number BANDARRIO STODDARD [address] [address] [facility] [employer] [place], [place] [phone] * Protime-INR (03/27/2024 9:37 PM CDT) PT [...] ORDERABLES Final Res ult Performing Organization Address [facility] de Phone Number ORI STODDARD [address] [address] [facility] [place] [employer] [address] * POCT glucose (03/27/2024 8:47 PM CDT) Glucose, POC 122 70 - 199 mg/dL Blood 03/27/2024 8:47 PM CDT 03/27/2024 8:47 PM CDT Result [facility] Ernie Baldwin MD LAB POCT ORDERABLES - DEVICE F inal Result Performing Organization Address [facility] Co de Phone Number ORI [address] [address] [facility] [place] [employer] [address] * POCT glucose (03/27/2024 4:54 PM CDT) Glucose, POC 144 70 - 199 mg/dL Blood 03/27/2024 4:54 PM CDT 03/27/2024 4:54 PM CDT Ernie Baldwin MD LAB POCT ORDERABLES - DEVICE F inal Result ORI STODDARD [address] [address] [place] [address] * eGFR (03/27/2024 2:23 PM CDT) eGFR [...] BLOOD ORDERABLES Final Res ult ORI STODDARD [address] [address] [facility] [place] [address] * Phosphorus (03/27/2024 2:23 PM CDT) Pathologist [facility] Phosphorus, pl 3.8 2.3 - 4.5 mg/dL Blood 03/27/2024 2:23 PM CDT 03/27/2024 2:36 PM CDT Ernie Baldwin MD LAB BLOOD ORDERABLES Final Res ult Performing Organization Address [facility] Co de Phone Number ORI [address] [place] [address] * (ABNORMAL) CBC without differential (03/27/2024 2:23 PM CDT) Pathologist [facility] WBC 10.5(H) 3.8 - 9.9 K/cumm Hgb 8.1(L) 13.0 - 17.5 g/dL [facility] Hct 23.2(L) 38.9 - 50.3 % [facility] Plt 137(L) 150 - 400 K/cumm [facility] MPV 10.7 9.1 - 12.3 fL [facility] RBC 2.61(L) 4.30 - 5.80 M/cumm [facility] MCV 88.9 81.3 - 96.4 fL [facility] MCH 31.0 27.1 - 33.3 pg [facility] MCHC 34.9 32.3 - 35.7 g/dL [facility] RDW CV 14.2 11.1 - 14.9 % [facility] RDW SD 45.3 35.7 - 48.1 fL [facility] NRBC abs 0.00 0.00 - 0.01 K/cumm [facility] Blood 03/27/2024 2:23 PM CDT 03/27/2024 2:36 PM CDT Ernie Baldwin MD LAB BLOOD ORDERABLES Final Res ult Performing Organization Address City/[facility]/ZIP Co de Phone Number ORI [address] [address] [place] [address] * Magnesium (03/27/2024 2:23 PM CDT) Magnesium 1.7 1.4 - 2.5 mg/dL Blood 03/27/2024 2:23 PM CDT 03/27/2024 2:36 PM CDT Ernie Baldwin MD LAB BLOOD ORDERABLES Final Res ult Performing Organization Address [facility] de Phone Number ORI [address] [address] Department [place] [address] * (ABNORMAL) Basic metabolic panel (03/27/2024 2:23 PM CDT) Pathologist [facility] Sodium 139 135 - 145 mmol/L Potassium, pl 3.6 3.3 - 4.9 mmol/L [facility] Chloride 100 97 - 110 mmol/L [facility] CO2 26 22 - 32 mmol/L [facility] Anion gap 13 2 - 15 mmol/L [facility] BUN 25 6 - 25 mg/dL [facility] Creatinine 0.76(L) 0.80 - 1.30 mg/dL [facility] Comment:Icteric sample, test results may be affected. Glucose 115 70 - 199 mg/dL [facility] Comment: Interpretive Data Fasting glucose >/= [...] 2022. Calcium 8.8 8.5 - 10.3 mg/dL [facility] Blood 03/27/2024 2:23 PM CDT 03/27/2024 2:36 PM CDT Ernie Baldwin MD LAB BLOOD ORDERABLES Final Res ult Performing Organization Address [facility] de Phone Number ORI [address] [address] [place] [address] * aPTT (03/27/2024 2:23 PM CDT) aPTT [...] ORDERABLES Final Res ult Performing Organization Address [facility] Phone Number ORI [address] [address] [place] [address] * Critical Care (03/27/2024 12:14 PM CDT) [...] plan with the patient's team and other medical/art consultant staff. This time was in addition to and separate from care provided by other practitioners on this day of service. ?? Tam Arias REGULATOR PIN INSERTER IN CLINIC/BEDSIDE ORD ERABLES Final Result * POCT glucose (03/27/2024 11:55 AM CDT) Glucose, POC 110 70 - 199 mg/dL Blood 03/27/2024 11:5 5 AM CDT 03/27/2024 11:55 AM CDT Ernie Baldwin MD LAB POCT ORDERABLES - DEVICE F inal Result ORI [address] [address] [place] [address] * XR Chest 1 Vw Portable (03/27/2024 [...] 7:53 AM CDT 03/27/2024 7:53 AM CDT Ernie Baldwin MD LAB POCT ORDERABLES - DEVICE F inal Result Performing Organization Address [facility] Co de Phone Number BANDARRIO STODDARD [address] [place] [employer] [place] [address] * Protime-INR (03/27/2024 6:49 AM CDT) PT 11.8 9.7 - 13.0 sec INR 1.09 0.90 - 1.20 ORI Comment: Interpretive data Oral anticoagulant therapeutic ranges: Venous thromboembolism prophylaxis or treatment: 2.0-3.0 CARDIOLOGY Standard range: 2.0-3.0 High-intensity range: 2.5-3.5 Refer to indication-specific guidelines for appropriate target ranges for prosthetic heart valve replacement. Current interpretive data was last revised on 2019. Blood 03/27/2024 6:49 AM CDT 03/27/2024 7:17 AM CDT Ernie Baldwin MD LAB BLOOD ORDERABLES Final Res ult Performing Organization Address [facility]/ZIP Co de Phone Number ORI STODDARD [address] [place] [employer] [place] [address] * (ABNORMAL) aPTT (03/27/2024 6:49 AM CDT) [...] Res ult Performing Organization Address City/State/ZIP Co sd Phone Number ORI [address] [address] [place] [address] * eGFR (03/27/2024 2:13 AM CDT) eGFR >90 >=60 mL/min/1. 73 [...] BLOOD ORDERABLES Final Res ult ORI STODDARD [address] [address] [employer] [place], [place] [phone] * (ABNORMAL) Basic metabolic panel (03/27/2024 2:13 AM CDT) Sodium 137 135 - 145 mmol/L Potassium, pl 3.3 3.3 - 4.9 mmol/L [facility] Chloride 99 97 - 110 mmol/L [facility] CO2 26 22 - 32 mmol/L [facility] Anion gap 12 2 - 15 mmol/L [facility] BUN 25 6 - 25 mg/dL [facility] Creatinine 0.77(L) 0.80 - 1.30 mg/dL [facility] Comment:Icteric sample, test results may be affected. Glucose 128 70 - 199 mg/dL [facility] Comment: Interpretive Data Fasting glucose >/= [...] 2022. Calcium 8.7 8.5 - 10.3 mg/dL [facility] Blood 03/27/2024 2:1 3 AM CDT 03/27/2024 2:25 AM CDT Ernie Baldwin MD LAB BLOOD ORDERABLES Final Res ult ORI STODDARD [address] [address] [place] [address] * (ABNORMAL) CBC without differential (03/27/2024 2:13 AM CDT) WBC 10.3(H) 3.8 - 9.9 K/cumm Hgb 7.8(L) 13.0 - 17.5 g/dL [facility] Hct 22.6(L) 38.9 - 50.3 % [facility] Plt 115(L) 150 - 400 K/cumm [facility] MPV 11.0 9.1 - 12.3 fL [facility] RBC 2.55(L) 4.30 - 5.80 M/cumm [facility] MCV 88.6 81.3 - 96.4 fL [facility] MCH 30.6 27.1 - 33.3 pg [facility] MCHC 34.5 32.3 - 35.7 g/dL [facility] RDW CV 14.1 11.1 - 14.9 % [facility] RDW SD 45.0 35.7 - 48.1 fL [facility] NRBC abs 0.00 0.00 - 0.01 K/cumm [facility] Blood 03/27/2024 2:13 AM CDT 03/27/2024 2:28 AM CDT Ernie Baldwin MD LAB BLOOD ORDERABLES Final Res ult Performing Organization Address [facility] Co de Phone Number BANDARROI STODDARD [address] [address] [place] [employer] [place] [address] * aPTT (03/27/2024 12:12 AM CDT) aPTT [...] ORDERABLES Fin al Result Performing Organization Address City/[facility] Co de Phone Number [facility] [address] [address] [employer] [place], [place] [phone] * POCT glucose (03/26/2024 8:28 PM CDT) Glucose, POC 171 70 - 199 mg/dL Blood 03/26/2024 8:28 PM CDT 03/26/2024 8:28 PM CDT Ernie Baldwin MD LAB POCT ORDERABLES - DEVICE F inal Result Performing Organization Address [facility] Co de Phone Number ORI STODDARD [address] [address] [facility] [employer] [place], [place] [phone] * aPTT (03/26/2024 5:32 PM CDT) Pathologist [facility] aPTT 30 28 - 38 sec Comment: Interpretive Data Heparin therapeutic range: 66.0 - 100.0 seconds. Range based on correlation with therapeutic heparin activity range of 0.3 - 0.7 Units/mL. Current interpretive data was last revised on 2023. Blood 03/26/2024 5:32 PM CDT 03/26/2024 5:41 PM CDT Marlo Rdz MD LAB BLOOD ORDERABLES Fin al Result Performing Organization Address [facility] de Phone Number ORI STODDARD [address] [facility] [place] [employer] [place] [address] * POCT glucose (03/26/2024 4:54 PM CDT) Glucose, POC 99 70 - 199 mg/dL Blood 03/26/2024 4:54 PM CDT 03/26/2024 4:54 PM CDT Ernie Baldwin MD LAB POCT ORDERABLES - DEVICE F inal Result Performing Organization Address [facility] Co de Phone Number ORI STODDARD [address] [address] [facility] [employer] [place], [place] [id number] * eGFR (03/26/2024 12:15 PM CDT) Pathologist [facility] eGFR >90 >=60 mL/min/1. 73 m2 Comment: [...] us Marlo Rdz MD LAB BLOOD ORDERABLES [facility] al Result ORI [address] [address] [address] * (ABNORMAL) Differential, auto (03/26/2024 12:15 PM CDT) Neutrophil abs 9.2(H) 1.5 - 6.5 K/cumm Imm gran abs 0.1 0.0 - 0.1 K/cumm [facility] Lymphocyte abs 2.4 0.8 - 3.3 K/cumm [facility] Monocyte abs 1.2(H) 0.2 - 0.8 K/cumm [facility] Eosinophil abs 0.1 0.0 - 0.5 K/cumm [facility] Basophil abs 0.0 0.0 - 0.1 K/cumm [facility] Neutrophil pct 70.9 % [facility] Comment: Interpretive Data Percent cell count reference ranges are not reported, since discordance with absolute values may lead to misinterpretation of CBC data. Current Interpretive Data was last revised on 2017. Imm gran pct 0.5 % [facility] Comment: Interpretive Data Percent cell count reference ranges are not reported, since discordance with absolute values may lead to misinterpretation of CBC data. Current Interpretive Data was last revised on 2017. Lymphocyte pct 18.4 % [facility] Comment: Interpretive Data Percent cell count reference ranges are not reported, since discordance with absolute values may lead to misinterpretation of CBC data. Current Interpretive Data was last revised on 2017. Monocyte pct 9.1 % [facility] Comment: Interpretive Data Percent cell count reference ranges are not reported, since discordance with absolute values may lead to misinterpretation of CBC data. Current Interpretive Data was last revised on 2017. Eosinophil pct 0.9 % [facility] Comment: Interpretive Data Percent cell count reference ranges are not reported, since discordance with absolute values may lead to misinterpretation of CBC data. Current Interpretive Data was last revised on 2017. Basophil pct 0.2 % [facility] Comment: Interpretive Data Percent cell count reference ranges are not reported, since discordance with absolute values may lead to misinterpretation of CBC data. Current Interpretive Data was last revised on 2017. Blood 03/26/2024 12:1 5 PM CDT 03/26/2024 12:56 PM CDT us Marlo Rdz MD LAB BLOOD ORDERABLES Fin al Result ORI STODDARD [address] [address] [place] [address] * (ABNORMAL) CBC with auto differential (03/26/2024 12:15 PM CDT) WBC 12.9(H) 3.8 - 9.9 K/cumm Hgb 8.8(L) 13.0 - 17.5 g/dL [facility] Hct 25.2(L) 38.9 - 50.3 % [facility] Plt 138(L) 150 - 400 K/cumm [facility] MPV 11.3 9.1 - 12.3 fL [facility] RBC 2.88(L) 4.30 - 5.80 M/cumm [facility] MCV 87.5 81.3 - 96.4 fL [facility] MCH 30.6 27.1 - 33.3 pg [facility] MCHC 34.9 32.3 - 35.7 g/dL [facility] RDW CV 14.2 11.1 - 14.9 % [facility] RDW SD 44.4 35.7 - 48.1 fL [facility] NRBC abs 0.00 0.00 - 0.01 K/cumm [facility] Blood 03/26/2024 12:1 5 PM CDT 03/26/2024 12:56 PM CDT Marlo Rdz MD LAB BLOOD ORDERABLES Fin al Result Performing Organization Address [facility] de Phone Number BANDARRIO [address] [facility] [employer] [place], [place] [id number] * Phosphorus (03/26/2024 12:15 PM CDT) Phosphorus, pl 4.0 2.3 - 4.5 mg/dL Blood 03/26/2024 12:1 5 PM CDT 03/26/2024 12:30 PM CDT Marlo Rdz MD LAB BLOOD ORDERABLES Fin al Result Performing Organization Address City/[facility] Co de Phone Number [facility] [address] [address] [facility] [employer] [place], [place] [id number] * Magnesium (03/26/2024 12:15 PM CDT) Magnesium 2.0 1.4 - 2.5 mg/dL Blood 03/26/2024 12:1 5 PM CDT 03/26/2024 12:30 PM CDT Marlo Rdz MD LAB BLOOD ORDERABLES Fin al Result Performing Organization Address City/[facility] Co de Phone Number ORI [address] [address] Department [place] [address] * Basic metabolic panel (03/26/2024 12:15 PM CDT) Sodium 139 135 - 145 mmol/L Potassium, pl 3.8 3.3 - 4.9 mmol/L [facility] Chloride 100 97 - 110 mmol/L [facility] CO2 27 22 - 32 mmol/L [facility] Anion gap 12 2 - 15 mmol/L [facility] BUN 23 6 - 25 mg/dL [facility] Creatinine 0.80 0.80 - 1.30 mg/dL [facility] Comment:Icteric sample, test results may be affected. Glucose 86 70 - 199 mg/dL [facility] Comment: Interpretive Data Fasting glucose >/= [...] 2022. Calcium 9.0 8.5 - 10.3 mg/dL [facility] Blood 03/26/2024 12:1 5 PM CDT 03/26/2024 12:30 PM CDT Marlo Rdz MD LAB BLOOD ORDERABLES Fin al Result Performing Organization Address [facility] Co de Phone Number ORI STODDARD [address] [address] [place] [address] * aPTT (03/26/2024 12:15 PM CDT) aPTT [...] ORDERABLES Fin al Result Performing Organization Address [facility] Co de Phone Number ORI STODDARD [address] [address] [place] [address] * POCT glucose (03/26/2024 12:10 PM CDT) Glucose, POC 99 70 - 199 mg/dL Blood 03/26/2024 12:1 0 PM CDT 03/26/2024 12:10 PM CDT Ernie Baldwin MD LAB POCT ORDERABLES - DEVICE F inal Result Performing Organization Address [facility] [place] [address] [address] [place] [address] * Critical Care (03/26/2024 10:03 AM CDT) [...] plan with the patient's team and other medical/art consultant staff. This time was in addition to and separate from care provided by other practitioners on this day of service. ?? Tam Arias REGULATOR PIN INSERTER IN CLINIC/BEDSIDE ORD ERABLES Final Result * [...] COMPARISON: 03/25/2024. Procedure Note Spencer Neff II, - 03/26/2024 EXAMINATION: XR CHEST 1 VIEW DATE: 03/26/2024 9:15 AM INDICATION: Pleural effusion. COMPARISON: 03/25/2024. IMPRESSION: FINDINGS/IMPRESSION: Right IJ central venous catheter terminates in the superior cavoatrial junction. Small bilateral pleural effusions, right greater than left appear similar to prior. Poststernotomy changes. There is pulmonary vascular congestion. No acute osseous abnormality. Electronically signed by: Gerson Castillo IIO. Ernie Baldwin MD IMG XR PROCEDURES Final Result * POCT glucose (03/26/2024 7:34 AM CDT) Glucose, POC 171 70 - 199 mg/dL Blood 03/26/2024 7:34 AM CDT 03/26/2024 7:34 AM CDT Ernie Baldwin MD LAB POCT ORDERABLES - DEVICE F inal Result Performing Organization Address [facility] de Phone Number ORI STODDARD [address] [address] [place] [address] * (ABNORMAL) aPTT (03/26/2024 6:13 AM CDT) aPTT 92(H) 28 - 38 sec Comment: Interpretive Data Heparin therapeutic range: 66.0 - 100.0 seconds. Range based on correlation with therapeutic heparin activity range of 0.3 - 0.7 Units/mL. Current interpretive data was last revised on 2023. Blood 03/26/2024 6:13 AM CDT 03/26/2024 6:21 AM CDT Nick ORI - 03/26/2024 6:39 AM CDT Draw STAT [...] ORDERABLES Final Res ult Performing Organization Address [facility] de Phone Number ORI STODDARD [address] [address] [place] [address] * eGFR (03/26/2024 4:30 AM CDT) eGFR [...] 4:30 AM CDT 03/26/2024 4:53 AM CDT us Ernie Baldwin MD LAB BLOOD ORDERABLES Final Res ult [facility] [address] [address] [address] * (ABNORMAL) Basic metabolic panel (03/26/2024 4:30 AM CDT) Sodium 141 135 - 145 mmol/L Potassium, pl 3.4 3.3 - 4.9 mmol/L [facility] Chloride 102 97 - 110 mmol/L [facility] CO2 30 22 - 32 mmol/L [facility] Anion gap 9 2 - 15 mmol/L [facility] BUN 22 6 - 25 mg/dL [facility] Creatinine 0.78(L) 0.80 - 1.30 mg/dL [facility] Comment:Icteric sample, test results may be affected. Glucose 137 70 - 199 mg/dL [facility] Comment: Interpretive Data Fasting glucose >/= [...] 2022. Calcium 8.3(L) 8.5 - 10.3 mg/dL [facility] Blood 03/26/2024 4:30 AM CDT 03/26/2024 4:53 AM CDT Ernie Baldwin MD LAB BLOOD ORDERABLES Final Res ult Performing Organization Address City/[facility]/ZIP Co de Phone Number ORI STODDARD [address] [facility] [place] [address] * Magnesium (03/26/2024 4:30 AM CDT) Pathologist [facility] Magnesium 2.1 1.4 - 2.5 mg/dL Blood 03/26/2024 4:30 AM CDT 03/26/2024 4:53 AM CDT Ernie Baldwin MD LAB BLOOD ORDERABLES Final Res ult Performing Organization Address City/[facility] Co de Phone Number ORI STODDARD [address] [place] [address] * (ABNORMAL) CBC without differential (03/26/2024 4:30 AM CDT) Pathologist [facility] WBC 10.1(H) 3.8 - 9.9 K/cumm Hgb 7.9(L) 13.0 - 17.5 g/dL [facility] Hct 22.8(L) 38.9 - 50.3 % [facility] Plt 87(L) 150 - 400 K/cumm [facility] MPV 11.2 9.1 - 12.3 fL [facility] RBC 2.62(L) 4.30 - 5.80 M/cumm [facility] MCV 87.0 81.3 - 96.4 fL [facility] MCH 30.2 27.1 - 33.3 pg [facility] MCHC 34.6 32.3 - 35.7 g/dL [facility] RDW CV 14.3 11.1 - 14.9 % [facility] RDW SD 44.4 35.7 - 48.1 fL [facility]ER CH NRBC abs 0.00 0.00 - 0.01 K/cumm [facility] Blood 03/26/2024 4:30 AM CDT 03/26/2024 4:53 AM CDT Ernie Baldwin MD LAB BLOOD ORDERABLES Final Res ult Performing Organization Address [facility] Co de Phone Number [facility] [address] [address] Department [place] [place] [address] * POCT glucose (03/26/2024 3:11 AM CDT) Glucose, POC 117 70 - 199 mg/dL Blood 03/26/2024 3:11 AM CDT 03/26/2024 3:11 AM CDT Ernie Baldwin MD LAB POCT ORDERABLES - DEVICE F inal Result Performing Organization Address [facility] de Phone Number [facility] [address] [address] [place] [address] * (ABNORMAL) aPTT (03/26/2024 12:10 AM CDT) [...] AM CDT 03/26/2024 12:20 AM CDT Narrative [facility] - 03/26/2024 1:12 AM CDT Draw STAT [...] ORDERABLES Final Res ult Performing Organization Address [facility] Co de Phone Number ORI STODDARD [address] [place] [facility] [place] [address] * POCT glucose (03/25/2024 7:33 PM CDT) Glucose, POC 132 70 - 199 mg/dL Blood 03/25/2024 7:33 PM CDT 03/25/2024 7:33 PM CDT Ernie Baldwin MD LAB POCT ORDERABLES - DEVICE F inal Result Performing Organization Address [facility] de Phone Number ORI STODDARD [address] [address] [facility] [place] [address] * (ABNORMAL) aPTT (03/25/2024 6:50 PM CDT) aPTT 27(L) 28 - 38 sec Comment: Interpretive Data Heparin therapeutic range: 66.0 - 100.0 seconds. Range based on correlation with therapeutic heparin activity range of 0.3 - 0.7 Units/mL. Current interpretive data was last revised on 2023. Blood 03/25/2024 6:50 PM CDT 03/25/2024 6:52 PM CDT Ernie Baldwin MD LAB BLOOD ORDERABLES Final Res ult Performing Organization Address [facility] Co de Phone Number ORI STODDARD [address] [address] [facility] [place] [address] * POCT glucose (03/25/2024 4:58 PM CDT) Glucose, POC 131 70 - 199 mg/dL Blood 03/25/2024 4:58 PM CDT 03/25/2024 4:58 PM CDT us Ernie Baldwin MD LAB POCT ORDERABLES - DEVICE F inal Result Performing Organization Address [facility] de Phone Number ORI STODDARD [address] [address] [place] [employer] [place] [address] * eGFR (03/25/2024 4:21 PM CDT) eGFR >90 >=60 mL/min/1. 73 [...] 4:21 PM CDT 03/25/2024 4:24 PM CDT Ernie Baldwin MD LAB BLOOD ORDERABLES Final Res ult Performing Organization Address [facility] de Phone Number ORI STODDARD [address] [address] [place] Department [employer] [place], [place] [id number] * (ABNORMAL) Basic metabolic panel (03/25/2024 4:21 PM CDT) Sodium 143 135 - 145 mmol/L Potassium, pl 3.5 3.3 - 4.9 mmol/L [facility] Chloride 104 97 - 110 mmol/L [facility] CO2 25 22 - 32 mmol/L [facility] CH Anion gap 14 2 - 15 mmol/L [facility] BUN 23 6 - 25 mg/dL [facility] Creatinine 0.71(L) 0.80 - 1.30 mg/dL [facility] Comment:Icteric sample, test results may be affected. Glucose 111 70 - 199 mg/dL [facility] Comment: Interpretive Data Fasting glucose >/= [...] 2022. Calcium 8.4(L) 8.5 - 10.3 mg/dL [facility] Blood 03/25/2024 4:21 PM CDT 03/25/2024 4:24 PM CDT us Ernie Baldwin MD LAB BLOOD ORDERABLES Final Res ult [facility] [address] [address] [place] [address] * (ABNORMAL) CBC without differential (03/25/2024 12:21 PM CDT) WBC 11.3(H) 3.8 - 9.9 K/cumm Hgb 8.0(L) 13.0 - 17.5 g/dL [facility] Hct 22.8(L) 38.9 - 50.3 % [facility] Plt 68(L) 150 - 400 K/cumm [facility] Comment:No clot detected in sample. MPV 11.4 9.1 - 12.3 fL [facility] RBC 2.65(L) 4.30 - 5.80 M/cumm [facility] MCV 86.0 81.3 - 96.4 fL [facility] MCH 30.2 27.1 - 33.3 pg [facility] MCHC 35.1 32.3 - 35.7 g/dL [facility] RDW CV 14.3 11.1 - 14.9 % [facility] RDW SD 44.5 35.7 - 48.1 fL [facility] NRBC abs 0.00 0.00 - 0.01 K/cumm [facility] Blood 03/25/2024 12:2 1 PM CDT 03/25/2024 12:36 PM CDT Narrative [facility] - 03/25/2024 1:39 PM CDT Baseline prior to warfarin initiation. Ernie Baldwin MD LAB BLOOD ORDERABLES Final Res ult Performing Organization Address [facility]/ZIP Co de Phone Number ORI STODDARD [address] [address] [place] [employer] [place] [address] * (ABNORMAL) aPTT (03/25/2024 12:21 PM CDT) aPTT 26(L) 28 - 38 sec Comment: Interpretive Data Heparin therapeutic range: 66.0 - 100.0 seconds. Range based on correlation with therapeutic heparin activity range of 0.3 - 0.7 Units/mL. Current interpretive data was last revised on 2023. Blood 03/25/2024 12:2 1 PM CDT 03/25/2024 12:36 PM CDT Narrative [facility] - 03/25/2024 12:51 PM CDT Baseline prior to heparin initiation Ernie Baldwin MD LAB BLOOD ORDERABLES Final Res ult Performing Organization Address [facility]/ZIP Co de Phone Number ORI STODDARD [address] [address] [place] [employer] [place] [address] * Protime-INR (03/25/2024 12:21 PM CDT) PT 11.9 9.7 - 13.0 sec INR 1.10 0.90 - 1.20 ORI STODDARD Comment: Interpretive data Oral anticoagulant therapeutic ranges: Venous thromboembolism prophylaxis or treatment: 2.0-3.0 CARDIOLOGY Standard range: 2.0-3.0 High-intensity range: 2.5-3.5 Refer to indication-specific guidelines for appropriate target ranges for prosthetic heart valve replacement. Current interpretive data was last revised on 2019. Blood 03/25/2024 12:2 1 PM CDT 03/25/2024 12:36 PM CDT Narrative [facility]I - 03/25/2024 12:48 PM CDT Baseline prior to heparin initiation Ernie Baldwin MD LAB BLOOD ORDERABLES Final Res ult Performing Organization Address City/[facility]/ZIP Co de Phone Number ORI STODDARD [address] [address] [facility] [place] [employer] [address] * POCT glucose (03/25/2024 12:06 PM CDT) Glucose, POC 129 70 - 199 mg/dL Blood 03/25/2024 12:0 6 PM CDT 03/25/2024 12:06 PM CDT Ernie Baldwin MD LAB POCT ORDERABLES - DEVICE F inal Result Performing Organization Address [facility] Co de Phone Number ORI STODDARD [address] [address] [facility] [place] [address] * ECG 12 lead (03/25/2024 9:58 AM CDT) 03/25/2024 9:58 AM CDT Narrative [facility] - 03/25/2024 10:18 AM CDT Vent Rate: 92 bpm RR Interval: 646 msec [place] Interval: 135 msec QRS Duration: 102 msec QT Interval: 409 msec QTC Interval: 459 msec P-R-T [place]: 55 - 30 - 21 degrees IMPRESSION: SINUS RHYTHM NONSPECIFIC T-WAVE ABNORMALITY BORDERLINE ECG Compared to prior EKG, heart rate has increased ST elevations are no longer present Electronically Signed By: West Ruvalcaba MD Ernie Baldwin MD ECG ORDERABLES Final Result Performing Organization Address [facility] Co de Phone Number [facility] * Critical Care (03/25/2024 8:35 AM CDT) [...] plan with the patient's team and other medical/art consultant staff. This time was in addition to and separate from care provided by other practitioners on this day of service. ?? Tam Arias NP IN CLINIC/BEDSIDE ORD ERABLES Final Result * POCT glucose (03/25/2024 7:43 AM CDT) Glucose, POC 161 70 - 199 mg/dL Blood 03/25/2024 7:43 AM CDT 03/25/2024 7:43 AM CDT Ernie Baldwin MD LAB POCT ORDERABLES - DEVICE F inal Result Performing Organization Address City/[facility]/ZIP Co de Phone Number ORI STODDARD [address] [address] [place] Department [place] [address] * XR Chest 1 Vw Portable (03/25/2024 [...] failure. ??The distal tip of a retracted Friendship-Stevie catheter is in the distal superior vena [...] failure. The distal tip of a retracted Friendship-Stevie catheter is in the distal superior vena [...] MD LAB BLOOD ORDERABLES Final Res ult [facility] [address] [address] [place] [address] * (ABNORMAL) Basic metabolic panel (03/25/2024 5:05 AM CDT) Sodium 142 135 - 145 mmol/L Potassium, pl 3.7 3.3 - 4.9 mmol/L [facility] Chloride 109 97 - 110 mmol/L [facility] CO2 24 22 - 32 mmol/L [employer] [facility] [employer] [facility] Anion gap 9 2 - 15 mmol/L [facility] BUN 25 6 - 25 mg/dL [facility] Creatinine 0.71(L) 0.80 - 1.30 mg/dL [facility] Glucose 134 70 - 199 mg/dL [facility] Comment: Interpretive Data Fasting glucose >/= [...] 2022. Calcium 8.0(L) 8.5 - 10.3 mg/dL [facility] Blood 03/25/2024 5:05 AM CDT 03/25/2024 5:21 AM CDT Ernie Baldwin MD LAB BLOOD ORDERABLES Final Res ult Performing Organization Address City/[facility]/ZIP Co de Phone Number ORI STODDARD [address] [address] [employer] [place], [place] [id number] * Magnesium (03/25/2024 5:05 AM CDT) Magnesium 1.9 1.4 - 2.5 mg/dL Blood 03/25/2024 5:05 AM CDT 03/25/2024 5:21 AM CDT Enrie Baldwin MD LAB BLOOD ORDERABLES Final Res ult Performing Organization Address City/[facility]/ZIP Co de Phone Number [employer] [facility] [employer] [facility] [address] [address] [employer] [place], [place] [phone] * (ABNORMAL) CBC without differential (03/25/2024 5:05 AM CDT) WBC 10.1(H) 3.8 - 9.9 K/cumm Hgb 7.4(L) 13.0 - 17.5 g/dL [facility] Hct 21.9(L) 38.9 - 50.3 % [facility] Plt 56(L) 150 - 400 K/cumm [facility] Comment:No clot detected in sample. MPV 11.7 9.1 - 12.3 fL [facility] RBC 2.49(L) 4.30 - 5.80 M/cumm [facility] MCV 88.0 81.3 - 96.4 fL [facility] MCH 29.7 27.1 - 33.3 pg [facility] MCHC 33.8 32.3 - 35.7 g/dL [facility] RDW CV 13.9 11.1 - 14.9 % [facility] RDW SD 44.1 35.7 - 48.1 fL [facility] NRBC abs 0.00 0.00 - 0.01 K/cumm [facility] Blood 03/25/2024 5:05 AM CDT 03/25/2024 5:21 AM CDT Ernie Baldwin MD LAB BLOOD ORDERABLES Final Res ult Performing Organization Address [facility] de Phone Number [facility] [address] [address] [facility] [place] [address] * Transfuse RBC (03/25/2024 3:13 AM CDT) Blood Result [facility] Ernie Baldwin MD BLOOD TRANSFUSION ORDERABLES F inal Result Performing Organization Address [facility] de Phone Number [facility] [address] [address] [facility] [place] [address] * POCT glucose (03/25/2024 2:32 AM CDT) Glucose, POC 132 70 - 199 mg/dL Blood 03/25/2024 2:32 AM CDT 03/25/2024 2:32 AM CDT Result [facility] Ernie Baldwin MD LAB POCT ORDERABLES - DEVICE F inal Result Performing Organization Address [facility] de Phone Number [facility] [address] [address] [facility] [place] [address] * POCT glucose (03/24/2024 9:22 PM CDT) Glucose, POC 140 70 - 199 mg/dL Blood 03/24/2024 9:22 PM CDT 03/24/2024 9:22 PM CDT Ernie Baldwin MD LAB POCT ORDERABLES - DEVICE F inal Result Performing Organization Address [facility] de Phone Number ORI [address] [address] [facility] [place] [employer] [address] * POCT glucose (03/24/2024 5:52 PM CDT) [facility] Glucose, POC 117 70 - 199 mg/dL Blood 03/24/2024 5:52 PM CDT 03/24/2024 5:52 PM CDT Ernie Baldwin MD LAB POCT ORDERABLES - DEVICE F inal Result Performing Organization Address [facility] de Phone Number ORI [address] [address] [facility] [place] [employer] [address] * Prepare RBC: 1 Units (03/24/2024 3:57 PM CDT) [facility] Product code [id number] Unit Number [id number] 1-W CERNER Product Blood Type BPOS CERNER CH Dispense Status RETURNED CERNER Blood 03/24/2024 3:57 PM CDT Narrative [facility] - 03/26/2024 12:05 AM CDT Are special requirements needed? (All products are leukoreduced and CMV- safe)- >No Date required:-[id number] LRRBC # of Bzlxy-2-[id number] Reasons:-Hgb <7 g/dL} Ernie Baldwin MD BLOOD BANK PRODUCT ORDERABLES Final Result Performing Organization Address [facility] de Phone Number ORI [address] [address] [facility] [place] [employer] [place] [address] * eGFR (03/24/2024 2:01 PM CDT) [facility] eGFR >90 >=60 mL/min/1. 73 m2 [...] MD LAB BLOOD ORDERABLES Final Res ult [facility] [address] [address] [place] [address] * (ABNORMAL) CBC without differential (03/24/2024 2:01 PM CDT) WBC 11.6(H) 3.8 - 9.9 K/cumm Hgb 6.9(L) 13.0 - 17.5 g/dL [facility] Hct 19.6(L) 38.9 - 50.3 % [facility] Plt 54(L) 150 - 400 K/cumm [facility] MPV 11.3 9.1 - 12.3 fL [facility] RBC 2.27(L) 4.30 - 5.80 M/cumm [facility] MCV 86.3 81.3 - 96.4 fL [facility] MCH 30.4 27.1 - 33.3 pg [facility] MCHC 35.2 32.3 - 35.7 g/dL [facility] CH RDW CV 13.4 11.1 - 14.9 % [facility] CH RDW SD 42.4 35.7 - 48.1 fL [facility] NRBC abs 0.00 0.00 - 0.01 K/cumm [facility] Blood 03/24/2024 2:01 PM CDT 03/24/2024 2:13 PM CDT Ernie Baldwin MD LAB BLOOD ORDERABLES Final Res ult Performing Organization Address [facility] Co de Phone Number [place] [address] [address] [place] [address] * (ABNORMAL) Phosphorus (03/24/2024 2:01 PM CDT) Phosphorus, pl 1.4(L) 2.3 - 4.5 mg/dL Blood 03/24/2024 2:01 PM CDT 03/24/2024 2:14 PM CDT Ernie Baldwin MD LAB BLOOD ORDERABLES Final Res ult Performing Organization Address [facility] Co de Phone Number [employer] [facility] [employer] [facility] [address] [address] [place] [address] * Magnesium (03/24/2024 2:01 PM CDT) Magnesium 1.9 1.4 - 2.5 mg/dL Blood 03/24/2024 2:01 PM CDT 03/24/2024 2:14 PM CDT Ernie Baldwin MD LAB BLOOD ORDERABLES Final Res ult Performing Organization Address [facility] Co de Phone Number [facility] [address] [address] Department of [employer] [place], [place] [id number] * (ABNORMAL) Basic metabolic panel (03/24/2024 2:01 PM CDT) Sodium 141 135 - 145 mmol/L Potassium, pl 3.6 3.3 - 4.9 mmol/L C[facility] Chloride 108 97 - 110 mmol/L [facility] CH CO2 22 22 - 32 mmol/L [facility] CH Anion gap 11 2 - 15 mmol/L [facility] CH BUN 22 6 - 25 mg/dL [facility] Creatinine 0.71(L) 0.80 - 1.30 mg/dL [facility] Glucose 195 70 - 199 mg/dL [facility] Comment: [...] 2022. Calcium 8.0(L) 8.5 - 10.3 mg/dL [facility] Blood 03/24/2024 2:01 PM CDT 03/24/2024 2:14 PM CDT Ernie Baldwin MD LAB BLOOD ORDERABLES Final Res ult Performing Organization Address [facility]/ZIP Co de Phone Number ORI STODDARD [address] [address] [place] Department [place] [address] * (ABNORMAL) POCT glucose (03/24/2024 12:41 PM CDT) Glucose, POC 231(H) 70 - 199 mg/dL Blood 03/24/2024 12:4 1 PM CDT 03/24/2024 12:41 PM CDT Ernie Baldwin MD LAB POCT ORDERABLES - DEVICE F inal Result Performing Organization Address City/[facility]/ZIP Co de Phone Number ORI STODDARD [address] [address] [place] [address] * POCT glucose (03/24/2024 7:38 AM CDT) Glucose, POC 192 70 - 199 mg/dL Blood 03/24/2024 7:38 AM CDT 03/24/2024 7:38 AM CDT Ernie Baldwin MD LAB POCT ORDERABLES - [place] [address] [place] [address] * Critical Care (03/24/2024 7:13 AM CDT) [...] plan with the ICU team and other medical/art consultant staff, making frequent assessments and decisions [...] spent time documenting in the medical record Tam Arias NP IN CLINIC/BEDSIDE ORD ERABLES Final Result * eGFR (03/24/2024 4:06 AM CDT) eGFR >90 >=60 mL/min/1. 73 [...] LAB BLOOD ORDERABLES Final Res ult [facility] [address] [address] [place] [address] * (ABNORMAL) Basic metabolic panel (03/24/2024 4:06 AM CDT) Sodium 140 135 - 145 mmol/L Potassium, pl 3.9 3.3 - 4.9 mmol/L [facility] Chloride 109 97 - 110 mmol/L [facility] CO2 20(L) 22 - 32 mmol/L [facility] Anion gap 11 2 - 15 mmol/L [facility] BUN 19 6 - 25 mg/dL [facility] Creatinine 0.68(L) 0.80 - 1.30 mg/dL [facility] Glucose 173 70 - 199 mg/dL [facility] Comment: Interpretive Data Fasting glucose >/= [...] 2022. Calcium 8.4(L) 8.5 - 10.3 mg/dL [facility] Blood 03/24/2024 4:06 AM CDT 03/24/2024 4:24 AM CDT Ernie Baldwin MD LAB BLOOD ORDERABLES Final Res ult Performing Organization Address [facility] Co de Phone Number [facility] [address] [place] [address] * Magnesium (03/24/2024 4:06 AM CDT) Pathologist [facility] Magnesium 2.0 1.4 - 2.5 mg/dL Blood 03/24/2024 4:06 AM CDT 03/24/2024 4:24 AM CDT Ernie Baldwin MD LAB BLOOD ORDERABLES Final Res ult Performing Organization Address City/[facility] Co de Phone Number [facility] [address] [address] [place] [address] * (ABNORMAL) CBC without differential (03/24/2024 4:06 AM CDT) WBC 10.9(H) 3.8 - 9.9 K/cumm Hgb 7.1(L) 13.0 - 17.5 g/dL [facility] Hct 20.0(L) 38.9 - 50.3 % [facility] Plt 54(L) 150 - 400 K/cumm [facility] CH Comment:No clot detected in sample. MPV 11.3 9.1 - 12.3 fL [facility] RBC 2.35(L) 4.30 - 5.80 M/cumm [facility] MCV 85.1 81.3 - 96.4 fL [facility]ER MCH 30.2 27.1 - 33.3 pg [facility] MCHC 35.5 32.3 - 35.7 g/dL [facility] RDW CV 13.5 11.1 - 14.9 % [facility] RDW SD 42.3 35.7 - 48.1 fL [facility] NRBC abs 0.00 0.00 - 0.01 K/cumm [facility] Blood 03/24/2024 4:06 AM CDT 03/24/2024 4:23 AM CDT us Ernie Baldwin MD LAB BLOOD ORDERABLES Final Res ult [facility] [address] [address] [place] [address] * XR Chest 1 View (03/24/2024 4:00 [...] removed. ??The distal tip off the retracted Friendship-Stevie catheter is in the superior vena cava. [...] removed. The distal tip off the retracted Friendship-Stevie catheter is in the superior vena cava. Heart not enlarged. Aortic atherosclerosis. Right effusion noted, with the remainder of the lungs being clear. IMPRESSION: Right effusion. Electronically signed by: Hamzah Mackey M.D. Ernie Baldwin MD IMG XR PROCEDURES Final Result * POCT glucose (03/24/2024 1:50 AM CDT) Glucose, POC 178 70 - 199 mg/dL Blood 03/24/2024 1:50 AM CDT 03/24/2024 1:50 AM CDT Ernie Baldwin MD LAB POCT ORDERABLES - DEVICE F inal Result Performing Organization Address City/State/[facility] Phone Number [facility] [address] [facility] Department [place] [address] * Critical Care (03/23/2024 11:23 PM CDT) [...] plan with the ICU team and other medical/art consultant staff, making frequent assessments and decisions [...] 8:08 PM CDT 03/23/2024 8:08 PM CDT Ernie Baldwin MD LAB POCT ORDERABLES - DEVICE F inal Result Performing Organization Address [facility] Co de Phone Number ORI STODD[facility] [address] [address] [place] [address] * POCT glucose (03/23/2024 4:23 PM CDT) Glucose, POC 134 70 - 199 mg/dL Blood 03/23/2024 4:23 PM CDT 03/23/2024 4:23 PM CDT Ernie Baldwin MD LAB POCT ORDERABLES - DEVICE F inal Result Performing Organization Address [facility] Co de Phone Number ORI STODD[facility] [address] [address] [place] Department [place] [address] * POCT glucose (03/23/2024 1:48 PM CDT) Glucose, POC 111 70 - 199 mg/dL Blood 03/23/2024 1:48 PM CDT 03/23/2024 1:48 PM CDT Ernie Baldwin MD LAB POCT ORDERABLES - DEVICE F inal Result [facility] [address] [address] [place] [address] * eGFR (03/23/2024 1:00 PM CDT) eGFR [...] ORDERABLES Final Res ult Performing Organization Address City/[facility]/ZIP Co de Phone Number [facility] [place] [address] [place] [address] * Magnesium (03/23/2024 1:00 PM CDT) Pathologist [facility] Magnesium 1.7 1.4 - 2.5 mg/dL Blood 03/23/2024 1:00 PM CDT 03/23/2024 1:14 PM CDT Ernie Baldwin MD LAB BLOOD ORDERABLES Final Res ult Performing Organization Address [facility] de Phone Number ORI STODDARD [address] [place] [address] * (ABNORMAL) CBC without differential (03/23/2024 1:00 PM CDT) WBC 9.9 3.8 - 9.9 K/cumm Hgb 7.1(L) 13.0 - 17.5 g/dL [facility] Hct 20.0(L) 38.9 - 50.3 % [facility] Plt 57(L) 150 - 400 K/cumm [facility] CH Comment:No clot detected in sample. MPV 10.2 9.1 - 12.3 fL [facility] RBC 2.35(L) 4.30 - 5.80 M/cumm [facility] CH MCV 85.1 81.3 - 96.4 fL C[facility]ER MCH 30.2 27.1 - 33.3 pg C[facility]ER MCHC 35.5 32.3 - 35.7 g/dL [facility] CH RDW CV 13.5 11.1 - 14.9 % [facility] CH RDW SD 41.7 35.7 - 48.1 fL [facility] CH NRBC abs 0.00 0.00 - 0.01 K/cumm [facility] CH Blood 03/23/2024 1:00 PM CDT 03/23/2024 1:14 PM CDT Ernie Baldwin MD LAB BLOOD ORDERABLES Final Res ult Performing Organization Address City/[facility]/ZIP Co de Phone Number ORI STODDARD [address] [address] [employer] [place] [address] * (ABNORMAL) Basic metabolic panel (03/23/2024 1:00 PM CDT) Sodium 141 135 - 145 mmol/L Potassium, pl 3.8 3.3 - 4.9 mmol/L [facility] Chloride 114(H) 97 - 110 mmol/L [facility] CH CO2 21(L) 22 - 32 mmol/L [facility] Anion gap 6 2 - 15 mmol/L [facility] BUN 15 6 - 25 mg/dL [facility] Creatinine 0.59(L) 0.80 - 1.30 mg/dL [facility] Glucose 97 70 - 199 mg/dL [facility] Comment: Interpretive Data Fasting glucose >/= [...] 2022. Calcium 7.3(L) 8.5 - 10.3 mg/dL [facility] Blood 03/23/2024 1:00 PM CDT 03/23/2024 1:14 PM CDT Ernie Baldwin MD LAB BLOOD ORDERABLES Final Res ult Performing Organization Address [facility] Co de Phone Number ORI STODDARD [address] Department [place] [address] * POCT glucose (03/23/2024 11:08 AM CDT) Glucose, POC 122 70 - 199 mg/dL Blood 03/23/2024 11:0 8 AM CDT 03/23/2024 11:08 AM CDT Ernie Baldwin MD LAB POCT ORDERABLES - DEVICE F inal Result Performing Organization Address [facility] Co de Phone Number ORI STODDARD [address] [facility] [place] [address] * (ABNORMAL) Blood gas, arterial (03/23/2024 9:09 [...] (Measured) 99(H) 90 - 95 % C[facility]ER Blood 03/23/2024 9:09 AM CDT 03/23/2024 9:21 AM CDT Ernie Baldwin MD LAB BLOOD ORDERABLES Final Res ult Performing Organization Address [facility] de Phone Number ORI STODDARD [address] [address] [facility] [place] [address] * POCT glucose (03/23/2024 9:00 AM CDT) Glucose, POC 106 70 - 199 mg/dL Blood 03/23/2024 9:00 AM CDT 03/23/2024 9:00 AM CDT Ernie Baldwin MD LAB POCT ORDERABLES - DEVICE F inal Result Performing Organization Address [facility] Co de Phone Number ORI STODDARD [address] [facility] [place] [address] * Critical Care (03/23/2024 7:44 AM CDT) [...] plan with the ICU team and other medical/art consultant staff, making frequent assessments and decisions [...] AM CDT) 03/23/2024 7:29 AM CDT Narrative [facility] - 03/23/2024 8:52 AM CDT Vent Rate: 69 bpm RR Interval: 858 msec [place] Interval: 158 msec QRS Duration: 92 msec QT Interval: 377 msec QTC Interval: 397 msec P-R-T [place]: 65 - 59 - 54 degrees IMPRESSION: SINUS RHYTHM ST-elevation inferior and lateral leads, consider early repolarization, pericarditis injury When compared to March 18, [address]-elevation inferior leads has increased Electronically Signed By: Dr. Deedee Dejesus [facility] Ernie Baldwin MD ECG ORDERABLES Final Result [facility] * POCT glucose (03/23/2024 6:23 AM CDT) Glucose, POC 138 70 - 199 mg/dL Blood 03/23/2024 6:23 AM CDT 03/23/2024 6:23 AM CDT Ernie Baldwin MD LAB POCT ORDERABLES - DEVICE F inal Result BANDARRIO STODDARD [address] [address] [facility] [place] [address] * POCT glucose (03/23/2024 4:25 AM CDT) Glucose, POC 129 70 - 199 mg/dL Blood 03/23/2024 4:25 AM CDT 03/23/2024 4:25 AM CDT Ernie Baldwin MD LAB POCT ORDERABLES - DEVICE F inal Result Performing Organization Address [facility]/ZIP Co de Phone Number ORI [address] [place] [address] * POCT glucose (03/23/2024 3:28 AM CDT) Glucose, POC 102 70 - 199 mg/dL Blood 03/23/2024 3:28 AM CDT 03/23/2024 3:28 AM CDT Ernie Baldwin MD LAB POCT ORDERABLES - DEVICE F inal Result Performing Organization Address City/[facility]/ZIP Co de Phone Number ORI [address] [address] [place] [address] * XR Chest 1 View - in [...] the endotracheal tube, nasogastric tube and retracted Friendship-Stevie catheter. Heart not enlarged. ??No failure. ??No [...] the endotracheal tube, nasogastric tube and retracted Friendship-Stevie catheter. Heart not enlarged. No failure. No focal consolidation. IMPRESSION: No change since the last study. Electronically signed by: Hamzah Mackey M.D. Ernie Baldwin MD IMG XR PROCEDURES Final Result * POCT glucose (03/23/2024 2:20 AM CDT) Glucose, POC 125 70 - 199 mg/dL Blood 03/23/2024 2:20 AM CDT 03/23/2024 2:20 AM CDT us Ernie Baldwin MD LAB POCT ORDERABLES - DEVICE F inal Result [facility] [address] [place] [place] [address] * Oxyhemoglobin, pulmonary artery (03/23/2024 2:18 AM CDT) Oxyhemoglobin, PA 60.2 % Comment: Interpretive Data No reference range established. Current interpretive data was last revised 2019. Blood 03/23/2024 2:18 AM CDT 03/23/2024 2:19 AM CDT Ernie Baldwin MD LAB BLOOD ORDERABLES Final Res ult ORI [address] [address] Department of Laboratories [place] [phone] * eGFR (03/23/2024 2:12 AM CDT) eGFR [...] 2:12 AM CDT 03/23/2024 2:20 AM CDT Enrie Baldwin MD LAB BLOOD ORDERABLES Final Res ult Performing Organization Address City/[facility] Co de Phone Number ORI STODDARD [address] [address] Department [place] [address] * (ABNORMAL) Basic metabolic panel (03/23/2024 2:12 AM CDT) Pathologist [facility] Sodium 143 135 - 145 mmol/L Potassium, pl 4.5 3.3 - 4.9 mmol/L [facility] Chloride 113(H) 97 - 110 mmol/L [facility] CO2 22 22 - 32 mmol/L [facility] Anion gap 8 2 - 15 mmol/L [facility] BUN 15 6 - 25 mg/dL [facility] Creatinine 0.74(L) 0.80 - 1.30 mg/dL [facility] Glucose 121 70 - 199 mg/dL [facility] Comment: Interpretive Data Fasting glucose >/= [...] 2022. Calcium 9.1 8.5 - 10.3 mg/dL [facility] Blood 03/23/2024 2:12 AM CDT 03/23/2024 2:19 AM CDT Ernie Baldwin MD LAB BLOOD ORDERABLES Final Res ult Performing Organization Address [facility] Co de Phone Number ORI STODDARD [address] [address] [place] [address] * Magnesium (03/23/2024 2:12 AM CDT) Magnesium 1.9 1.4 - 2.5 mg/dL Blood 03/23/2024 2:12 AM CDT 03/23/2024 2:19 AM CDT Ernie Baldwin MD LAB BLOOD ORDERABLES Final Res ult Performing Organization Address City/[facility]/ZIP Co de Phone Number ORI STODDARD [address] [address] [place] [address] * (ABNORMAL) CBC without differential (03/23/2024 2:12 AM CDT) Pathologist [facility] WBC 14.5(H) 3.8 - 9.9 K/cumm Hgb 9.5(L) 13.0 - 17.5 g/dL [facility] CH Hct 27.0(L) 38.9 - 50.3 % [facility] Plt 96(L) 150 - 400 K/cumm [facility] MPV 10.2 9.1 - 12.3 fL [facility] RBC 3.14(L) 4.30 - 5.80 M/cumm [facility] MCV 86.0 81.3 - 96.4 fL [facility] MCH 30.3 27.1 - 33.3 pg CERNER MCHC 35.2 32.3 - 35.7 g/dL [facility] CH RDW CV 13.4 11.1 - 14.9 % [facility] RDW SD 42.0 35.7 - 48.1 fL [facility] NRBC abs 0.00 0.00 - 0.01 K/cumm [facility] Blood 03/23/2024 2:12 AM CDT 03/23/2024 2:19 AM CDT Ernie Baldwin MD LAB BLOOD ORDERABLES Final Res ult Performing Organization Address City/[facility]/ZIP Co de Phone Number ORI [address] [facility] [place] [address] * POCT glucose (03/23/2024 1:16 AM CDT) Pathologist [facility] Glucose, POC 138 70 - 199 mg/dL Blood 03/23/2024 1:16 AM CDT 03/23/2024 1:16 AM CDT Ernie Baldwin MD LAB POCT ORDERABLES - DEVICE F inal Result Performing Organization Address [facility] Co de Phone Number ORI RICHI [address] [address] [facility] [place] [address] * POCT glucose (03/23/2024 12:05 AM CDT) Glucose, POC 139 70 - 199 mg/dL Blood 03/23/2024 12:0 5 AM CDT 03/23/2024 12:05 AM CDT Result [facility] Ernie Baldwin MD LAB POCT ORDERABLES - DEVICE F inal Result Performing Organization Address [facility] de Phone Number ORI STODDARD [address] [address] [facility] [place] [employer] [address] * (ABNORMAL) Protime-INR (03/22/2024 11:32 PM CDT) [...] ORDERABLES Fi nal Result Performing Organization Address [facility] Co de Phone Number ORI STODDARD [address] [address] [facility] [place] [address] * Fibrinogen (03/22/2024 11:32 PM CDT) Fibrinogen 236 170 - 400 mg/dL Blood 03/22/2024 11:3 2 PM CDT 03/22/2024 11:35 PM CDT Marlo Portillo NP LAB BLOOD ORDERABLES Fi nal Result Performing Organization Address [facility] de Phone Number [facility] [address] [address] Department [place] [address] * POCT glucose (03/22/2024 11:09 PM CDT) Glucose, POC 124 70 - 199 mg/dL Blood 03/22/2024 11:0 9 PM CDT 03/22/2024 11:09 PM CDT Ernie Baldwin MD LAB POCT ORDERABLES - DEVICE F inal Result Performing Organization Address [facility] Phone Number ORI [address] [address] [place] [address] * Critical Care (03/22/2024 10:40 PM CDT) [...] plan with the ICU team and other medical/art consultant staff, making frequent assessments and decisions [...] consultants and the medical staff Marlo Portillo REGULATOR PIN INSERTER IN CLINIC/BEDSIDE ORDER DINORA Final Result * POCT glucose (03/22/2024 10:15 PM CDT) Glucose, POC 137 70 - 199 mg/dL Blood 03/22/2024 10:1 5 PM CDT 03/22/2024 10:15 PM CDT Ernie Baldwin MD LAB POCT ORDERABLES - DEVICE F inal Result Performing Organization Address [facility] Co de Phone Number ORI STODDARD [address] [address] [place] [address] * Oxyhemoglobin, pulmonary artery (03/22/2024 9:51 PM CDT) Oxyhemoglobin, PA 56.4 % Comment: Interpretive Data No reference range established. Current interpretive data was last revised 2019. Blood 03/22/2024 9:51 PM CDT 03/22/2024 9:54 PM CDT Ernie Baldwin MD LAB BLOOD ORDERABLES Final Res ult Performing Organization Address City/[facility] [place] [address] [address] [address] [employer] [place], [place] [id number] * XR Chest 1 Vw Portable (03/22/2024 [...] unchanged good position. ??The tip of the Friendship-Stevie catheter is in the undivided main pulmonary [...] unchanged good position. The tip of the Friendship-Stevie catheter is in the undivided main pulmonary [...] ORDERABLES Final Res ult Performing Organization Address [facility] Co de Phone Number ORI STODDARD [address] [address] [place] [address] [employer] [place], [place] [id number] * eGFR (03/22/2024 9:47 PM CDT) eGFR [...] ORDERABLES Final Res ult Performing Organization Address City/[facility]/ZIP Co de Phone Number ORI STODDARD [address] [address] [address] * (ABNORMAL) Blood gas, arterial (03/22/2024 9:47 PM CDT) Pathologist [facility] pH, Art 7.38 7.35 - 7.45 PCO2, Arterial 40 35 - 45 mmHg [facility] PO2, Arterial 161(H) 83 - 108 mmHg [facility] CH HCO3 Art (Calculated) 24 20 - 30 mmol/L [facility] CH BE, art -1 mmol/L [facility] CH Comment: Interpretive Data No Reference Range Established Current Interpretive Data was last revised on 2017 O2 Sat Art (Measured) 98(H) 90 - 95 % [facility] CH Blood 03/22/2024 9:47 PM CDT 03/22/2024 9:48 PM CDT Ernie Baldwin MD LAB BLOOD ORDERABLES Final Res ult Performing Organization Address [facility] Co de Phone Number [facility] [address] [address] [place] [address] * Lactate (03/22/2024 9:47 PM CDT) [facility] Lactate 0.9 0.7 - 2.0 mmol/L Blood 03/22/2024 9:47 PM CDT 03/22/2024 9:48 PM CDT Ernie Baldwin MD LAB BLOOD ORDERABLES Final Res ult Performing Organization Address [facility] de Phone Number [facility] [address] [address] [place] [address] * (ABNORMAL) CBC without differential (03/22/2024 9:47 PM CDT) [facility] WBC 12.8(H) 3.8 - 9.9 K/cumm Hgb 9.3(L) 13.0 - 17.5 g/dL [facility] Hct 26.4(L) 38.9 - 50.3 % [facility] Plt 101(L) 150 - 400 K/cumm [facility] MPV 10.0 9.1 - 12.3 fL [facility] RBC 3.04(L) 4.30 - 5.80 M/cumm [facility] CH MCV 86.8 81.3 - 96.4 fL [facility] CH MCH 30.6 27.1 - 33.3 pg [facility] CH MCHC 35.2 32.3 - 35.7 g/dL [facility] CH RDW CV 13.5 11.1 - 14.9 % [facility] CH RDW SD 42.7 35.7 - 48.1 fL [facility] CH NRBC abs 0.00 0.00 - 0.01 K/cumm [facility] CH Blood 03/22/2024 9:47 PM CDT 03/22/2024 9:49 PM CDT Ernie Baldwin MD LAB BLOOD ORDERABLES Final Res ult [facility] [address] [address] [place] [address] * Magnesium (03/22/2024 9:47 PM CDT) [facility] Magnesium 2.2 1.4 - 2.5 mg/dL Blood 03/22/2024 9:47 PM CDT 03/22/2024 9:49 PM CDT Ernie Baldwin MD LAB BLOOD ORDERABLES Final Res ult Performing Organization Address [facility] Co de Phone Number [facility] [address] [address] Department [place] [address] * (ABNORMAL) Basic metabolic panel (03/22/2024 9:47 PM CDT) Pathologist [facility] Sodium 145 135 - 145 mmol/L Potassium, pl 4.6 3.3 - 4.9 mmol/L [facility] Chloride 114(H) 97 - 110 mmol/L [facility] CO2 22 22 - 32 mmol/L [facility] Anion gap 9 2 - 15 mmol/L [facility] BUN 15 6 - 25 mg/dL [facility] Creatinine 0.85 0.80 - 1.30 mg/dL [facility] Glucose 143 70 - 199 mg/dL [facility] Comment: Interpretive Data Fasting glucose >/= [...] 2022. Calcium 7.4(L) 8.5 - 10.3 mg/dL [facility] Blood 03/22/2024 9:47 PM CDT 03/22/2024 9:49 PM CDT Ernie Baldwin MD LAB BLOOD ORDERABLES Final Res ult Performing Organization Address [facility] de Phone Number [facility] [address] [address] [facility] [place] [employer] [address] * Transfuse RBC (03/22/2024 9:21 PM CDT) Blood Ernie Baldwin MD BLOOD TRANSFUSION ORDERABLES F inal Result Performing Organization Address [facility] Phone Number [facility] [address] [address] [facility] [place] [address] * Transfuse RBC: 1 Units (03/22/2024 9:21 PM CDT) Blood Ernie Baldwin MD BLOOD TRANSFUSION ORDERABLES F inal Result * POCT glucose (03/22/2024 9:11 PM CDT) [facility] Signature Glucose, POC 165 70 - 199 mg/dL Blood 03/22/2024 9:11 PM CDT 03/22/2024 9:11 PM CDT Ernie Baldwin MD LAB POCT ORDERABLES - DEVICE F inal Result Performing Organization Address [facility] Co de Phone Number ORI STODDARD [address] [address] [place] [address] * Transfuse plasma Standard plasma (03/22/2024 8:59 PM CDT) Blood Ernie Baldwin MD BLOOD TRANSFUSION ORDERABLES F inal Result Performing Organization Address [facility] Co de Phone Number ORI STODDARD [address] [address] [place] [address] * Transfuse plasma: 1 Units Standard plasma (03/22/2024 8:59 PM CDT) Blood Ernie Baldwin MD BLOOD TRANSFUSION ORDERABLES F inal Result * POCT glucose (03/22/2024 8:04 PM CDT) [facility] Signature Glucose, POC 171 70 - 199 mg/dL Blood 03/22/2024 8:04 PM CDT 03/22/2024 8:04 PM CDT Ernie Baldwin MD LAB POCT ORDERABLES - DEVICE F inal Result Performing Organization Address [facility] Co de Phone Number ORI STODDARD [address] [address] [place] [address] * Transfuse RBC (03/22/2024 7:36 PM CDT) Blood Ernie Baldwin MD BLOOD TRANSFUSION ORDERABLES F inal Result Performing Organization Address City/[facility]/ZIP Co de Phone Number ORI STODDARD [address] [address] [place] [facility] [place] [address] * Transfuse RBC: 1 Units (03/22/2024 7:36 PM CDT) Blood Ernie Baldwin MD BLOOD TRANSFUSION ORDERABLES F inal Result * Transfuse cryoprecipitate (pooled units) (03/22/2024 7:00 PM CDT) Blood Ernie Baldwin MD BLOOD TRANSFUSION ORDERABLES F inal Result Performing Organization Address [facility] Co de Phone Number ORI STODDARD [address] [address] [place] [address] * Transfuse cryoprecipitate (pooled units): 2 Units (03/22/2024 7:00 PM CDT) Blood Ernie Baldwin MD BLOOD TRANSFUSION ORDERABLES F inal Result * POCT glucose (03/22/2024 6:49 PM CDT) Glucose, POC 169 70 - 199 mg/dL Blood 03/22/2024 6:49 PM CDT 03/22/2024 6:49 PM CDT Ernie Baldwin MD LAB POCT ORDERABLES - DEVICE F inal Result Performing Organization Address [facility] Co de Phone Number BANDARRIO STODDARD [address] [address] [facility] [place] [address] * Transfuse cryoprecipitate (pooled units) (03/22/2024 6:46 PM CDT) Blood Ernie Baldwin MD BLOOD TRANSFUSION ORDERABLES F inal Result Performing Organization Address City/[facility]/ZIP Co de Phone Number ORI [address] [address] [place] [address] * POCT glucose (03/22/2024 6:01 PM CDT) Glucose, POC 151 70 - 199 mg/dL Blood 03/22/2024 6:01 PM CDT 03/22/2024 6:01 PM CDT Ernie Baldwin MD LAB POCT ORDERABLES - DEVICE F inal Result ORI STODDARD [address] [address] Department of [employer] [place], [place] [id number] * Prepare cryoprecipitate (pooled units): 2 Units (03/22/2024 5:40 PM CDT) Product code [id number] [facility] Unit Number [id number] [facility] Product Blood Type APOS [facility] CH Dispense Status PRESUMED TRANSFUSED [facility] CH Product code [id number] Unit Number [id number] [facility] CH Product Blood Type APOS [facility] CH Dispense Status PRESUMED TRANSFUSED [facility] Blood (Blood, Venous) 03/22/2024 5:40 PM CDT Narrative [facility] - 03/22/2024 10:15 PM CDT Cryo # of [id number] Reasons:-Fibrinogen <= 150 mg/dL AND active hemorrhage} Ernie Baldwin MD BLOOD BANK PRODUCT ORDERABLES Final Result ORI STODDARD [address] [address] Department of Laboratories [place], [place] [id number] * (ABNORMAL) Blood gas, arterial (03/22/2024 5:35 PM CDT) pH, Art 7.37 7.35 - [...] ORDERABLES Final Res ult Performing Organization Address [facility] Co de Phone Number ORI [address] [address] [place] [address] * (ABNORMAL) CBC without differential (03/22/2024 5:35 PM CDT) WBC 16.1(H) 3.8 - 9.9 K/cumm Hgb 8.0(L) 13.0 - 17.5 g/dL [facility] Hct 23.1(L) 38.9 - 50.3 % [facility] Plt 124(L) 150 - 400 K/cumm [facility] MPV 9.7 9.1 - 12.3 fL [facility] RBC 2.66(L) 4.30 - 5.80 M/cumm [facility] MCV 86.8 81.3 - 96.4 fL [facility] MCH 30.1 27.1 - 33.3 pg [facility] MCHC 34.6 32.3 - 35.7 g/dL [facility] RDW CV 13.8 11.1 - 14.9 % [facility] RDW SD 43.4 35.7 - 48.1 fL [facility] NRBC abs 0.00 0.00 - 0.01 K/cumm [facility] Blood 03/22/2024 5:35 PM CDT 03/22/2024 5:38 PM CDT Ernie Baldwin MD LAB BLOOD ORDERABLES Final Res ult Performing Organization Address [facility] de Phone Number ORI STODDARD [address] [address] Department [place] [address] * POCT glucose (03/22/2024 4:40 PM CDT) Glucose, POC 137 70 - 199 mg/dL Blood 03/22/2024 4:40 PM CDT 03/22/2024 4:40 PM CDT Ernie Baldwin MD LAB POCT ORDERABLES - DEVICE F inal Result ORI STODDARD [address] [address] [address] * eGFR (03/22/2024 3:11 PM CDT) eGFR >90 >=60 mL/min/1. 73 [...] BLOOD ORDERABLES Final Res ult ORI STODDARD [address] [address] [place] Department of [facility] [place], [place] [id number] * Magnesium (03/22/2024 3:11 PM CDT) Pathologist [facility] Magnesium 2.4 1.4 - 2.5 mg/dL Blood 03/22/2024 3:11 PM CDT 03/22/2024 3:16 PM CDT Ernie Baldwin MD LAB BLOOD ORDERABLES Final Res ult Performing Organization Address [facility] Co de Phone Number ORI STODDARD [address] [address] [facility] [place] [address] * (ABNORMAL) Fibrinogen (03/22/2024 3:11 PM CDT) Fibrinogen 156(L) 170 - 400 mg/dL Blood 03/22/2024 3:11 PM CDT 03/22/2024 3:17 PM CDT Result [facility] Ernie Baldwin MD LAB BLOOD ORDERABLES Final Res ult Performing Organization Address [facility] de Phone Number ORI STODDARD [address] [address] [facility] [place] [address] * (ABNORMAL) Protime-INR (03/22/2024 3:11 PM CDT) [...] 3:11 PM CDT 03/22/2024 3:17 PM CDT Result [facility] Ernie Baldwin MD LAB BLOOD ORDERABLES Final Res ult Performing Organization Address [facility] [facility] Co de Phone Number ORI STODDARD [address] [address] [facility] [place] [address] * aPTT (03/22/2024 3:11 PM CDT) aPTT 35 28 - 38 sec Comment: Interpretive Data Heparin therapeutic range: 66.0 - 100.0 seconds. Range based on correlation with therapeutic heparin activity range of 0.3 - 0.7 Units/mL. Current interpretive data was last revised on 2023. Blood 03/22/2024 3:11 PM CDT 03/22/2024 3:17 PM CDT Ernie Bladwin MD LAB BLOOD ORDERABLES Final Res ult Performing Organization Address [facility] Co de Phone Number ORI [address] [place] [address] * (ABNORMAL) Blood gas, arterial (03/22/2024 3:11 [...] - 95 % [facility] Blood 03/22/2024 3:11 PM CDT 03/22/2024 3:16 PM CDT Ernie Baldwin MD LAB BLOOD ORDERABLES Final Res ult Performing Organization Address [facility] Co de Phone Number ORI STODDARD [address] [place] [address] * Calcium, ionized, whole blood (03/22/2024 3:11 PM CDT) Ca, ionized, bld 4.64 4.50 - 5.10 mg/dL Blood 03/22/2024 3:11 PM CDT 03/22/2024 3:16 PM CDT Ernie Baldwin MD LAB BLOOD ORDERABLES Final Res ult ORI STODDARD [address] [address] [place] [address] * (ABNORMAL) Basic metabolic panel (03/22/2024 3:11 PM CDT) Sodium 143 135 - 145 mmol/L Potassium, pl 4.4 3.3 - 4.9 mmol/L [facility] Chloride 111(H) 97 - 110 mmol/L [facility] CO2 24 22 - 32 mmol/L [facility] Anion gap 8 2 - 15 mmol/L [facility] BUN 12 6 - 25 mg/dL [facility] Creatinine 0.80 0.80 - 1.30 mg/dL [facility] Comment:Icteric sample, test results may be affected. Glucose 137 70 - 199 mg/dL [facility] Comment: Interpretive Data Fasting glucose >/= [...] 2022. Calcium 7.8(L) 8.5 - 10.3 mg/dL [facility] Blood 03/22/2024 3:11 PM CDT 03/22/2024 3:16 PM CDT Ernie Baldwin MD LAB BLOOD ORDERABLES Final Res ult Performing Organization Address City/[facility]/ZIP Co de Phone Number ORI STODDARD [address] [address] [place] [address] * (ABNORMAL) CBC without differential (03/22/2024 3:11 PM CDT) WBC 14.0(H) 3.8 - 9.9 K/cumm Hgb 10.2(L) 13.0 - 17.5 g/dL [facility] Hct 28.5(L) 38.9 - 50.3 % [facility] Plt 121(L) 150 - 400 K/cumm [facility] MPV 9.7 9.1 - 12.3 fL [facility] RBC 3.33(L) 4.30 - 5.80 M/cumm [facility] MCV 85.6 81.3 - 96.4 fL [facility] MCH 30.6 27.1 - 33.3 pg [facility] MCHC 35.8(H) 32.3 - 35.7 g/dL [facility] RDW CV 13.6 11.1 - 14.9 % [facility] RDW SD 42.4 35.7 - 48.1 fL [facility] NRBC abs 0.00 0.00 - 0.01 K/cumm [facility] Blood 03/22/2024 3:11 PM CDT 03/22/2024 3:17 PM CDT Ernie Baldwin MD LAB BLOOD ORDERABLES Final Res ult Performing Organization Address City/[facility]/ZIP Co de Phone Number ORI STODDARD [address] [address] [employer] [place], [place] [phone] * POCT glucose (03/22/2024 2:03 PM CDT) Pathologist [facility] Glucose, POC 114 70 - 199 mg/dL Blood 03/22/2024 2:03 PM CDT 03/22/2024 2:03 PM CDT Ernie Baldwin MD LAB POCT ORDERABLES - DEVICE F inal Result Performing Organization Address City/[facility]/ZIP Co de Phone Number ORI STODDARD [address] [address] [facility] [place] [employer] [address] * Transfuse platelets (03/22/2024 1:07 PM CDT) Blood Ernie Baldwin MD BLOOD TRANSFUSION ORDERABLES F inal Result Performing Organization Address [facility] Co de Phone Number ORI STODDARD [phone] [address] Department of [employer] [place], [place] [phone] * Transfuse platelets: 1 Units (03/22/2024 1:07 PM CDT) Blood Ernie Baldwin MD BLOOD TRANSFUSION ORDERABLES F inal Result * POCT glucose (03/22/2024 1:00 PM CDT) Glucose, POC 119 70 - 199 mg/dL Blood 03/22/2024 1:00 PM CDT 03/22/2024 1:00 PM CDT Ernie Baldwin MD LAB POCT ORDERABLES - DEVICE F inal Result Performing Organization Address [facility] de Phone Number ORI STODDARD [address] [address] [place] [address] * XR Chest 1 View (03/22/2024 12:48 [...] in good position. ??The tip of a Friendship-Stevie catheter is in the undivided main pulmonary artery. Borderline cardiomegaly with aortic atherosclerosis. ??No failure. Subsegmental atelectasis is seen in the lower half of the right lung with the remainder of the lungs being clear. Procedure Note Vas, Hamzah, MD - 03/22/2024 EXAMINATION: XR CHEST 1 VIEW HISTORY: The patient is a 58-year-old male who presents with aortic valve stenosis. Comparison made with the previous study dated 03/18/2024. TECHNIQUE: AP portable view of the chest. FINDINGS: Endotracheal and nasogastric tubes are in good position. The tip of a Friendship-Stevie catheter is in the undivided main pulmonary artery. Borderline cardiomegaly with aortic atherosclerosis. No failure. Subsegmental atelectasis is seen in the lower half of the right lung with the remainder of the lungs being clear. IMPRESSION: Findings as described above. Electronically signed by: Hamzah Mackey M.D. Ernie Baldwin MD IMG XR PROCEDURES Final Result * eGFR (03/22/2024 12:31 PM CDT) eGFR >90 >=60 mL/min/1. 73 [...] ORDERABLES Final Res ult Performing Organization Address [facility] Co de Phone Number ORI STODADRD [address] [address] [facility] [employer] [place], [place] [phone] * (ABNORMAL) Magnesium (03/22/2024 12:31 PM CDT) Magnesium 2.7(H) 1.4 - 2.5 mg/dL Blood 03/22/2024 12:3 1 PM CDT 03/22/2024 12:36 PM CDT Ernie Baldwin MD LAB BLOOD ORDERABLES Final Res ult Performing Organization Address [facility] Co de Phone Number ORI STODDARD [address] [address] [facility] [place] [employer] [address] * aPTT (03/22/2024 12:31 PM CDT) aPTT [...] ORDERABLES Final Res ult Performing Organization Address [facility] Co de Phone Number ORI STODDARD [address] [address] [facility] [employer] [place], [place] [phone] * (ABNORMAL) Protime-INR (03/22/2024 12:31 PM CDT) PT 15.6(H) 9.7 - 13.0 sec INR 1.43(H) 0.90 - 1.20 [facility] Comment: Interpretive data Oral anticoagulant therapeutic ranges: Venous thromboembolism prophylaxis or treatment: 2.0-3.0 CARDIOLOGY Standard range: 2.0-3.0 High-intensity range: 2.5-3.5 Refer to indication-specific guidelines for appropriate target ranges for prosthetic heart valve replacement. Current interpretive data was last revised on 2019. Blood 03/22/2024 12:3 1 PM CDT 03/22/2024 12:36 PM CDT Ernie Baldwin MD LAB BLOOD ORDERABLES Final Res ult ORI [address] [address] [facility] [place] [address] * (ABNORMAL) CBC without differential (03/22/2024 12:31 PM CDT) WBC 10.8(H) 3.8 - 9.9 K/cumm Hgb 11.8(L) 13.0 - 17.5 g/dL [facility] Hct 33.2(L) 38.9 - 50.3 % [facility] Plt 85(L) 150 - 400 K/cumm [facility] MPV 9.5 9.1 - 12.3 fL [facility] RBC 3.88(L) 4.30 - 5.80 M/cumm [facility] MCV 85.6 81.3 - 96.4 fL [facility] MCH 30.4 27.1 - 33.3 pg [facility] MCHC 35.5 32.3 - 35.7 g/dL [facility] RDW CV 13.5 11.1 - 14.9 % [facility] RDW SD 41.8 35.7 - 48.1 fL [facility] NRBC abs 0.00 0.00 - 0.01 K/cumm [facility] Blood 03/22/2024 12:3 1 PM CDT 03/22/2024 12:36 PM CDT Ernie Baldwin MD LAB BLOOD ORDERABLES Final Res ult Performing Organization Address [facility] Co de Phone Number ORI STODDARD [address] [address] [place] [address] * (ABNORMAL) Blood gas, arterial (03/22/2024 12:31 [...] 1 PM CDT 03/22/2024 12:34 PM CDT Ernie Baldwin MD LAB BLOOD ORDERABLES Final Res ult Performing Organization Address [facility] Co de Phone Number ORI STODDARD [address] [address] [place] [address] * (ABNORMAL) Basic metabolic panel (03/22/2024 12:31 PM CDT) Sodium 141 135 - 145 mmol/L Potassium, pl 4.7 3.3 - 4.9 mmol/L C[facility]ER Chloride 109 97 - 110 mmol/L [facility] CO2 23 22 - 32 mmol/L [facility] Anion gap 9 2 - 15 mmol/L [facility] BUN 12 6 - 25 mg/dL [facility] Creatinine 0.77(L) 0.80 - 1.30 mg/dL [facility] Glucose 134 70 - 199 mg/dL [facility] Comment: [...] 2022. Calcium 8.1(L) 8.5 - 10.3 mg/dL ORI STODDARD Blood 03/22/2024 12:3 1 PM CDT 03/22/2024 12:36 PM CDT Ernie Baldwin MD LAB BLOOD ORDERABLES Final Res ult Performing Organization Address City/[facility]/ZIP Co de Phone Number ORI [address] [address] [place] [address] * POCT glucose (03/22/2024 12:30 PM CDT) Glucose, POC 120 70 - 199 mg/dL Blood 03/22/2024 12:3 0 PM CDT 03/22/2024 12:30 PM CDT Ernie Baldwin MD LAB POCT ORDERABLES - DEVICE F inal Result Performing Organization Address [facility] Co de Phone Number ORI [address] [address] [place] [address] * Calcium, ionized, whole blood (03/22/2024 12:30 PM CDT) Ca, ionized, bld 4.74 4.50 - 5.10 mg/dL Blood 03/22/2024 12:3 0 PM CDT 03/22/2024 1:00 PM CDT Ernie Baldwin MD LAB BLOOD ORDERABLES Final Res ult Performing Organization Address [facility] Co de Phone Number BANDARRIO [address] [address] [place] [address] * (ABNORMAL) POC Blood Gas and Chemistries, [...] ORDERABLES - DEVICE F inal Result ORI [address] [address] [place] [address] * Critical Care (03/22/2024 11:16 AM CDT) Narrative Dequan Keller MD - 03/22/2024 11:16 AM CDT Albania Jones NP ? 03/22/2024 ??4:21 PM Critical Care Performed by: Albania Jones NP Authorized by: Albania Jones REGULATOR PIN INSERTER ?? CRITICAL CARE: ??Team: ??CHNE ??Shift: ??AM [...] plan with the ICU team and other medical/art consultant staff, making frequent assessments and decisions [...] spent time documenting in the medical record Albania Jones NP IN CLINIC/BEDS CECILIO ORDERABLES Final Result * POC Activated Clotting Time, High Range (03/22/2024 11:15 AM CDT) [facility] ACT 104 87 - 138 sec Blood 03/22/2024 11:1 5 AM CDT 03/22/2024 11:15 AM CDT Ernie Baldwin MD LAB BLOOD ORDERABLES Final Res ult [facility] [address] [address] [place] [address] * (ABNORMAL) POC Blood Gas and Chemistries, Arterial - (03/22/2024 10:38 AM CDT) [facility] pH, Art POC 7.33(L) 7.35 - 7.45 [...] POCT ORDERABLES - DEVICE F inal Result [address] [place] [address] * Surgical pathology (03/22/2024 10:38 AM CDT) Tissue (Heart Valve) 03/22/2024 9:41 AM CDT Narrative PATHOLOGY CH - 03/25/2024 1:40 PM CDT [facility] results best viewed via link to PDF [facility] Department of Pathology [address] [place] [address] Note to Patients: This report may contain [...] the details. Final Report Patient Name: ??STEPHAN MADDEN Address: ??[address] [place] [address], ??[place], [place] ??[address] Gender: ??M : ??1965 (Age: 58) Service: ??Cardiothoracic Location: ?? [facility] Hospital #: ??[id number] Patient Type: ?? IP Accession # ?[id number] Taken: ??03/22/2024 Received: ??03/23/2024 Accessioned: ??03/23/2024 Reported: [...] determined by the Surgical Pathology Department at [facility] as part of an ongoing plant quality manager program and in compliance with federally mandated [...] characteristics determined by the Surgical Pathology Department [facility]. ??It has not been cleared or approved by the U. S. Food and Drug Administration. Note for decalcified specimens: This assay has not been validated on decalcified tissues. Results should be interpreted with caution given the possibility of false negativity on decalcified specimens Ernie Baldwin MD LAB PATHOLOGY ORDERABLES Final Result [facility] [address] [place] [address] * (ABNORMAL) POC Activated Clotting Time, High Range (03/22/2024 10:36 AM CDT) ACT 546(H) 87 - 138 sec Blood 03/22/2024 10:3 6 AM CDT 03/22/2024 10:36 AM CDT Ernie Baldwin MD LAB BLOOD ORDERABLES Final Res ult CERNER [address] [address] [place] [address] * (ABNORMAL) POC Blood Gas and Chemistries, [...] DEVICE F inal Result Performing Organization Address [facility] Co de Phone Number [facility] [address] [address] [place] [address] * (ABNORMAL) POC Activated Clotting Time, High Range (03/22/2024 10:10 AM CDT) ACT 672(H) 87 - 138 sec Blood 03/22/2024 10:1 0 AM CDT 03/22/2024 10:10 AM CDT Ernie Baldwin MD LAB BLOOD ORDERABLES Final Res ult ORI STODDARD [address] [place] [address] * (ABNORMAL) Platelet count (03/22/2024 10:10 AM CDT) Plt 100(L) 150 - 400 K/cumm Blood 03/22/2024 10:1 0 AM CDT 03/22/2024 10:14 AM CDT Ernie Baldwin MD LAB BLOOD ORDERABLES Final Res ult ORI STODDARD [address] [address] [place] [address] * (ABNORMAL) POC Blood Gas and Chemistries, [...] AM CDT 03/22/2024 9:36 AM CDT Ernie Baldwni MD LAB POCT ORDERABLES - DEVICE F inal Result Performing Organization Address [facility] Co de Phone Number BANDARRIO STODDARD [address] [address] [facility] [place] [address] * (ABNORMAL) POC Activated Clotting Time, High Range (03/22/2024 9:34 AM CDT) ACT 805(H) 87 - 138 sec Blood 03/22/2024 9:34 AM CDT 03/22/2024 9:34 AM CDT Ernie Baldwin MD LAB BLOOD ORDERABLES Final Res ult Performing Organization Address [facility] de Phone Number ORI RICHI [address] [address] [place] [address] * (ABNORMAL) POC Activated Clotting Time, High Range (03/22/2024 9:02 AM CDT) ACT 918(H) 87 - 138 sec Blood 03/22/2024 9:02 AM CDT 03/22/2024 9:02 AM CDT Ernie Baldwin MD LAB BLOOD ORDERABLES Final Res ult Performing Organization Address [facility] Co de Phone Number BANDARRIO STODDARD [address] [address] [place] [address] * (ABNORMAL) POC Blood Gas and Chemistries, Arterial - (03/22/2024 8:38 AM CDT) pH, Art POC 7.42 7.35 - 7.45 [...] POC 14.1 13.0 - 17.5 g/dL [facility] Blood 03/22/2024 8:38 AM CDT 03/22/2024 8:38 AM CDT Ernie Baldwin MD LAB POCT ORDERABLES - DEVICE F inal Result Performing Organization Address [facility] Co de Phone Number [facility] [address] [address] [place] [address] * POC Activated Clotting Time, High Range (03/22/2024 8:36 AM CDT) Pathologist [facility] ACT 98 87 - 138 sec Blood 03/22/2024 8:36 AM CDT 03/22/2024 8:36 AM CDT Ernie Baldwin MD LAB BLOOD ORDERABLES Final Res ult Performing Organization Address [facility] Co de Phone Number [facility] [address] [address] Department [place] [address] * Protime-INR (03/22/2024 6:46 AM CDT) [facility] PT 12.3 9.7 - 13.0 sec INR 1.14 0.90 - 1.20 ORI Comment: Interpretive data Oral anticoagulant therapeutic ranges: Venous thromboembolism prophylaxis or treatment: 2.0-3.0 CARDIOLOGY Standard range: 2.0-3.0 High-intensity range: 2.5-3.5 Refer to indication-specific guidelines for appropriate target ranges for prosthetic heart valve replacement. Current interpretive data was last revised on 2019. Blood 03/22/2024 6:46 AM CDT 03/22/2024 6:46 AM CDT Ranjit Fernández REGULATOR PIN INSERTER LAB BLOOD ORDERABLES Final Result Performing Organization Address City/[facility]/ZIP Co de Phone Number ORI STODDARD [address] [place] [address] * Type and screen (03/22/2024 6:24 AM CDT) Pathologist [facility] ABO Rh B Positive Beatriz, indirect Negative [facility] Blood 03/22/2024 6:24 AM CDT 03/22/2024 6:46 AM CDT Narrative ORI - 03/22/2024 7:26 AM CDT Has the patient had Daratumumab or Isatuximab in the past 6 months?->Unknown Re Hicks REGULATOR PIN INSERTER LAB BLOOD BANK TEST ORDER DINORA Final Result Performing Organization Address City/[facility]/ZIP Co de Phone Number ORI STODDARD [address] [address] [employer] [place], [place] [phone] * Prepare plasma: 2 Units Standard plasma (03/22/2024 6:00 AM CDT) Pathologist [facility] Product code [id number] Unit Number [id number] [facility] Product Blood Type BPOS [facility] Dispense Status PRESUMED TRANSFUSED [facility] Blood (Blood, Venous) 03/22/2024 6:00 AM CDT Narrative ORI - 03/22/2024 10:15 PM CDT Specify Procedure:->AVR Is this plasma order intended for a COVID-19 patient as convalescent plasma?->Standard plasma Special Requirements Needed?->No Date required:-20240322 FFP # of Units:-2-Units Reasons:-Hold for procedure (specify procedure)} Re Hicks REGULATOR PIN INSERTER BLOOD BANK PRODUCT ORDERA BLES Final Result Performing Organization Address [facility] de Phone Number [employer] [facility] [facility] [address] [address] [facility] [employer] [place], [place] [phone] * Prepare platelets: 2 Units (03/22/2024 6:00 AM CDT) Product code [id number] Unit Number [id number] [facility] Product Blood Type OPOS [facility] Dispense Status PRESUMED TRANSFUSED [facility] Blood (Blood, Venous) 03/22/2024 6:00 AM CDT Narrative [facility] - 03/22/2024 10:15 PM CDT Specify Procedure:->AVR Are special requirements needed? (all products are leukoreduced)->No Date required:-20240322 PLT # of Units:-2-Units Reasons:-Hold for procedure (specify procedure)} Re Hicks REGULATOR PIN INSERTER BLOOD BANK PRODUCT ORDERA BLES Final Result Performing Organization Address [facility] de Phone Number ORI [address] [address] [facility] [employer] [place], [place] [phone] * Prepare RBC: 4 Units (03/22/2024 6:00 AM CDT) Product code [id number] [facility] Unit Number [id number] [facility] Product Blood Type BPOS [facility] Dispense Status PRESUMED TRANSFUSED [facility] Product code [id number] Unit Number [id number] [facility] Product Blood Type BPOS [facility] Dispense Status PRESUMED TRANSFUSED [facility] Product code [id number] [facility] Unit Number [id number] [facility] Product Blood Type BPOS [facility] Dispense Status RETURNED [facility] Product code [id number] [facility] Unit Number [id number] [facility] Product Blood Type BPOS [facility] Dispense Status PRESUMED TRANSFUSED [facility] Blood 03/22/2024 6:00 AM CDT Narrative ORI STODDARD - 03/26/2024 12:05 AM CDT Specify Procedure:->AVR Are special requirements needed? (All products are leukoreduced and CMV- safe)- >No Date required:-20240322 LRRBC # of [id number]-Fvsey Reasons:-Hold for procedure (specify procedure)} us Re Hicks NP BLOOD BANK PRODUCT ORDERA BLES Final Result [facility] [address] [address] Department of Laboratories [place], [place] [phone] documented in this encounter Visit Diagnoses Diagnosis Aortic valve stenosis- Primary Aortic valve disorders Aortic valve stenosis, etiology of cardiac valve disease unspecified Aortic stenosis, severe Aortic stenosis, severe Aortic valve stenosis, etiology of cardiac valve disease unspecified documented in this encounter Admitting Diagnoses Diagnosis [...] Given 03/30/2024 12:43 AM CDT 1,000 mg albuterol 2.5 mg /3 mL (0.083 %) nebulizer solution 2.5 mg 2.5 mg, nebulization, 4 times daily, First dose (after last modification) on Thu03/30/24 at 0800, Indications: Bronchospastic Pulmonary DiseaseIndications:Bronchospastic Pulmonary Disease Given 03/30/2024 9:40 AM CDT 2.5 mg amiodarone (PACERONE) tablet 400 mg 400 mg, oral, Daily, First dose on Thu03/25/24 at 1615 Given 03/29/2024 4:31 PM CDT 400 mg Given 03/28/2024 5:50 PM CDT 400 mg Given 03/27/2024 3:37 PM CDT 400 mg aspirin enteric coated tablet 81 mg [...] Given 03/29/2024 8:26 AM CDT 150 mg ceFAZolin (ANCEF) injection Administer over 3 Minutes, As needed, Starting on Thu03/22/24 at 0856, Intra-Op Given 03/22/2024 8:56 AM CDT 2,000 mg dextrose (D10W) 10% bolus 250 mL 250 [...] of hypoglycemia., Indications: hypoglycemic disorderIndications:hypoglycemic disorder dilTIAZem XR (CARDIZEM CD,DILACOR XR) 24 hour capsule 240 mg 240 mg, oral, Daily with dinner, First dose (after last modification) on Thu03/24/24 at 1800, Do not crush, chew, cut, dissolve, open or otherwise manipulate tablet/capsule. Given 03/29/2024 4:32 PM CDT 240 mg Given 03/28/2024 5:50 PM CDT 240 mg Given 03/27/2024 6:16 PM CDT 240 mg famotidine (PEPCID) tablet 20 mg 20 mg, oral, 2 times daily, First dose on Thu03/24/24 at 2100 Given 03/30/2024 8:19 AM CDT 20 mg Given 03/29/2024 8:44 PM CDT 20 mg Given 03/29/2024 8:25 AM CDT 20 mg furosemide (LASIX) tablet 40 mg 40 [...] 1 mL SWFI. Use immediately following reconstitution. insulin lispro (HumaLOG, ADMELOG) 100 unit/mL injection [...] CDT 2 Units Le ft Upper Arm losartan (COZAAR) tablet 25 mg 25 mg, oral, Daily, First dose on Thu03/26/24 at 1030 Given 03/30/2024 8:19 AM CDT 25 mg Given 03/29/2024 8:26 AM CDT 25 mg Given 03/28/2024 8:25 AM CDT 25 mg methocarbamoL (ROBAXIN) tablet 500 mg 500 mg, oral, 3 times daily, First dose on Thu03/23/24 at 0900 Given 03/30/2024 8:19 AM CDT 500 mg Given 03/29/2024 8:44 PM CDT 500 mg Given 03/29/2024 4:31 PM CDT 500 mg metoprolol tartrate (LOPRESSOR) immediate release tablet 25 mg 25 mg, oral, 2 times daily, First dose (after last modification) on Thu03/27/24 at 0900 Given 03/30/2024 8:19 AM CDT 25 mg Given 03/29/2024 8:45 PM CDT 25 mg Given 03/29/2024 8:26 AM CDT 25 mg oxyCODONE (ROXICODONE) tablet 10 mg 10 mg, oral, Every 4 hours PRN, 1st line for pain, Starting on Thu03/23/24 at 0905, Indications: PainIndications:Pain Given 03/30/2024 1:39 PM CDT 10 mg Given 03/30/2024 8:19 AM CDT 10 mg Given 03/30/2024 12:48 AM CDT 10 mg polyethylene glycol (MIRALAX) packet 17 g 17 g, oral, Daily, First dose on Thu03/22/24 at 1300, Hold for diarrhea, Indications: constipationIndications:constipation Given 03/28/2024 8:25 AM CDT 17 g Given 03/25/2024 9:24 AM CDT 17 g Given 03/24/2024 8:53 AM CDT 17 g prochlorperazine (COMPAZINE) injection 5 mg 5 mg, intravenous, Administer over 2 Minutes, Every 6 hours PRN, nausea, vomiting, Starting on Thu03/22/24 at 1228, Indications: Nausea and VomitingIndications:Nausea and Vomiting Given 03/27/2024 11:39 AM CDT 5 mg Given 03/24/2024 9:36 AM CDT 5 mg Given 03/23/2024 6:20 AM CDT 5 mg QUEtiapine (SEROquel) tablet 50 mg 50 mg, [...] Thu03/22/24 at 0559, Pre-Op/Floor sodium chloride 0.9% irrigation As needed, Starting on Thu03/22/24 at 0856, Intra-Op Given 03/22/2024 8:56 AM CDT 7,000 mL Surgical Site vancomycin (VANCOCIN) solution As needed, Starting on Thu03/22/24 at 0857, Intra-Op Given 03/22/2024 8:57 AM CDT 6,000 mg documented in this encounter Discontinued Medications [...] Pain 0127 (Given - Provider: Ayad Rowe, RN)0626 (Given - Provider: Ayad Rowe, RN)1159 (Given - Provider: Brayan Dyer)1750 (Given - Provider: Brayan Dyer)2239 (Given - Provider: Ayad Rowe, RN) 0537 (Given - Provider: yAad Rowe RN)1304 (Given - Provider: Brayan Dyer)1856 (Given - Provider: Brayan Dyer) 0043 (Given - Provider: Ayad Rowe RN)0457 (Given - Provider: Ayad Rowe RN)1339 (Given - Provider: Christo Zendejas RN) albuterol 2.5 mg /3 mL (0.083 %) nebulizer solution 2.5 mg (CANCELED) 2.5 mg, nebulization, Every 6 hours (incident response lead), First dose on Thu03/22/24 at 1500, Indications: [...] 1615 1750 (Given - Provider: Brayan Dyer) 1631 (Given - Provider: Brayan Dyer) aspirin enteric coated tablet 81 mg(Linked Group 2) 81 mg, oral, Daily, First dose on Thu03/22/24 at 1300, Administer EC oral tablet if able to swallow medications. Do not crush, chew, cut, dissolve, open or otherwise manipulate tablet/capsule. 0825 (Given - Provider: Brayan Dyer) 08 (Given - Provider: Brayan Dyer) 08 (Given - Provider: Christo Zendejas, KATHERIN) buPROPion SR (WELLBUTRIN SR) 12 hour tablet 150 mg 150 mg, oral, 2 times daily, First dose on Thu03/23/24 at 2100, Do not crush, chew, cut, dissolve, open or otherwise manipulate tablet/capsule. 08 (Given - Provider: Brayan Dyer)2019 (Given - Provider: Ayad Rowe RN) 08 (Given - Provider: Brayan Dyer)2043 (Given - Provider: Ayad Rowe RN) 08 (Given - Provider: Christo Zendejas RN) dilTIAZem XR (CARDIZEM CD,DILACOR XR) 24 hour capsule 240 mg 240 mg, oral, Daily with dinner, First dose (after last modification) on Thu03/24/24 at 1800, Do not crush, chew, cut, dissolve, open or otherwise manipulate tablet/capsule. 1750 (Given - Provider: Brayan Dyer) 1631 (Given - Provider: Brayan Dyer) enoxaparin (LOVENOX) syringe 80 mg (CANCELED) 80 mg (rounded from 76.6 mg = 1 mg/kg ? 76.6 kg), subcutaneous, Every 12 hours scheduled, First dose on Thu03/29/24 at 1300, Indications: Mechanical Valve Thromboembolism Prophylaxis 1305 (Given - Provider: Brayan Dyer)2044 (Given - Provider: Ayad Rowe RN) 08 (Given - Provider: Christo Zendejas RN - Comment: Self-administered by patient) famotidine (PEPCID) tablet 20 mg 20 mg, oral, 2 times daily, First dose on Thu03/24/24 at 2100 08 (Given - Provider: Brayan Dyer)2020 (Given - Provider: Ayad Rowe RN) 824 (Given - Provider: Brayan Dyer)2043 (Given - Provider: Ayad Rowe RN) 818 (Given - Provider: Christo Zendejas, KATHERIN) furosemide [...] Daily, First dose on Thu03/29/24 at 0900 825 (Given - Provider: Brayan Dyer) 818 (Given - Provider: Christo Zendejas, KATHERIN) insulin [...] parameters not met)1308 (Given - Provider: Brayan Dyer)1637 (Not Given - Provider: Brayan Dyer - [...] 1030 0825 (Given - Provider: Brayan Dyer) 0826 (Given - Provider: Brayan Dyer) 08 (Given - Provider: Christo Zendejas, KATHERIN) methocarbamoL (ROBAXIN) tablet 500 mg 500 mg, oral, 3 times daily, First dose on Thu03/23/24 at 0900 0825 (Given - Provider: Brayan Dyer)1750 (Given - Provider: Brayan Dyer)2019 (Given - Provider: Ayad Rowe RN) 08 (Given - Provider: Brayan Dyer)163 (Given - Provider: Brayan Dyer)2043 (Given - Provider: Ayad Rowe RN) 0819 (Given - Provider: Christo Zendejas, KATHERIN) metoprolol tartrate (LOPRESSOR) immediate release tablet 25 mg 25 mg, oral, 2 times daily, First dose (after last modification) on Thu03/27/24 at 0900 0825 (Given - Provider: Brayan Dyer)2019 (Given - Provider: Ayad Rowe RN) 0826 (Given - Provider: Brayan Dyer)2044 (Given - Provider: Ayad Rowe RN) 0819 (Given - Provider: Christo Zendejas, KATHERIN) polyethylene glycol (MIRALAX) packet 17 g 17 g, oral, Daily, First dose on Thu03/22/24 at 1300, Hold for diarrhea, Indications: constipation 0825 (Given - Provider: Brayan Dyer) 0900 (Not Given - Provider: Brayan Dyer - Reason: Patient/family refused) 0823 (Not Given - Provider: Christo Zendejas, KATHERIN - Reason: Patient/family refused) potassium chloride ER (KLOR-CON) extended release tablet 40 mEq (COMPLETED) 40 mEq, oral, Once, On 03/28/24 at 0930, For 1 dose, Do not crush, chew, cut, dissolve, open or otherwise manipulate tablet/capsule. 1159 (Given - Provider: Brayan Dyer) QUEtiapine (SEROquel) tablet 50 mg 50 mg, oral, Nightly, First dose on Khushbu 03/24/24 at 0000 2019 (Given - Provider: Ayad [...] RN) 2043 (Given - Provider: Ayad Rowe, KATHERIN) senna-docusate (PERICOLACE) 8.6-50 mg per tablet 2 tablet 2 tablet, oral, 2 times daily, First dose on Thu03/22/24 at 1300, Hold for diarrhea., Indications: constipation 0825 (Given - Provider: Brayan Dyer)2019 (Given - Provider: Ayad Rowe RN) 09 (Not Given - Provider: Brayan Dyer - Reason: Patient/family refused)2043 (Given - Provider: Ayad Rowe, KATHERIN) 0823 (Not Given - Provider: Christo Zendejas RN - Reason: Patient/family refused) sodium chloride 0.9% flush 0.5-20 mL 0.5-20 mL, intra-catheter, Every 8 hours scheduled, First dose on Thu03/22/24 at 1400, Flush volume based on line type and size. 0626 (Given - Provider: Ayad Rowe RN)0843 (Given - Provider: Brayan Dyer)175 (Given - Provider: Brayan Dyer)2023 (Given - Provider: Ayad Rowe, RN) 0538 (Given - Provider: Ayad Rowe, RN)131 (Given - Provider: Brayan Dyer)2044 (Given - Provider: Ayad Rowe, RN) 045 (Given - Provider: Ayad Rowe, RN)1400 (Due) warfarin (COUMADIN) tablet 5 mg [...] Indications: Pain 0636 (Given - Provider: Ayad Rowe RN)2030 (Given - Provider: Ayad Rowe RN) 0142 (Given - Provider: Ayad Rowe RN)0951 (Given - Provider: Brayan Dyer)1631 (Given - Provider: Brayan Dyer) 0048 (Given - Provider: Ayad Rowe RN)0819 (Given - Provider: Christo Zendejas RN - Comment: 02/07 with deep breathing)1339 (Given - Provider: Christo Zendejas RN) prochlorperazine (COMPAZINE) injection 5 mg 5 mg, [...] Count Last Ordered Date First Ordered Date albuterol 2.5 mg /3 mL (0.08 3 %) nebulizer solution 2.5 mg 2 03/30/2024 03/22/2024 enoxaparin (LOVENOX) syringe 80 mg 1 2023 warfarin (COUMADIN) tablet 7.5 mg 1 024 furosemide (LASIX) tablet 40 mg 1 4 potassium chloride ER (KLOR- CON) extended release tablet 40 mEq 6 03/28/2024 03/24/2024 furosemide (LASIX) 10 mg/mL injection 40 mg 6 03/27/2024 03/24/2024 metoprolol tartrate (LOPRESS OR) immediate release tablet 25 mg 2 03/27/2024 03/24/2024 warfarin (COUMADIN) tablet 5 mg 1 4 losartan (COZAAR) tablet 25 mg 1 03/26/2024 rOPINIRole (REQUIP) tablet 4 mg 1 4 amiodarone (PACERONE) tablet 400 mg 1 03/25 heparin in 0.45% sodium chlo ride 25,000 units/250 mL (100 units/mL) infusion (premix) 03/25/2024 magnesium sulfate 2 g/50 mL in water (premix) 2 g 2 03/25/2024 03/22/2024 metOLazone (ZAROXOLYN) tablet 5 mg 1 2023 metoprolol tartrate (LOPRESS OR) immediate release split tablet 37.5 mg 1 03/25/2024 rosuvastatin (CRESTOR) tablet 10 mg 1 03/25 warfarin (COUMADIN) tablet 2 mg 1 amiodarone (NEXTERONE) 150 m g/100 mL (1.5 mg/mL) in dextrose (premix) 150 mg 03/24/2024 amiodarone in dextrose (NEXT ERONE) 360 mg/200 mL (1.8 mg/mL) infusion (premix) 2 03/24/2024 clevidipine (CLEVIPREX) 25 m g/50 mL (0.5 mg/mL) infusion (premix) 2 03/24/2024 03/22/2024 dilTIAZem (CARDIZEM) tablet 120 mg 2 2023 dilTIAZem CD/XR/XT (CARDIZEM CD,DILACOR XR) 24 hour capsule 120 mg 03/24/2024 dilTIAZem XR (CARDIZEM CD,DI LACOR XR) 24 hour capsule 240 mg 03/24/2024 famotidine (PEPCID) tablet 20 mg 03/24/20 hydrALAZINE (APRESOLINE) injection 20 mg 03/24/2024 sodium chloride 0.9% IVPB 0-250 mL 6 202303/22/2024 sodium phosphate - potassium phosphate (K-PHOS NEUTRAL) tablet 500 mg 03/24/2024 buPROPion SR (WELLBUTRIN SR) 12 hour tablet 150 mg 03/23/2024 dextrose (D10W) 10% bolus 250 mL 03/23/20 dextrose oral liquid liquid 15 g 03/23/20 glucagon injection 1 mg 03/23/2024 insulin lispro (HumaLOG, ADM ELOG) 100 unit/mL injection 0-10 Units 1 03/23/2024 ketorolac (TORADOL) 30 mg/mL injection 30 mg 1 03/23/2024 lidocaine (LIDODERM) 5 % patch 2 patch 1 methocarbamoL (ROBAXIN) tablet 500 mg 1 metoprolol tartrate (LOPRESS OR) immediate release tablet 12.5 mg 2 03/23/2024 oxyCODONE (ROXICODONE) tablet 10 mg 1 03/23 QUEtiapine (SEROquel) tablet 50 mg 1 2023 acetaminophen (TYLENOL) 32 m g/mL oral liquid 1,000 mg 1 03/22/2024 acetaminophen (TYLENOL) suppository 650 mg 1 03/22/2024 acetaminophen (TYLENOL) tablet 1,000 mg 1 0 03/22/2024 albumin 5 % bottle 25 g 2 03/22/2024 aspirin chewable tablet 81 mg 1 03/22/2024 aspirin enteric coated tablet 81 mg 1 03/22 calcium chloride 2 g in sodi um chloride 0.9% 100 mL IVPB 1 03/22/2024 Carrier Fluids for Secondary Infusion - 0.9% Sodium Chloride 2 03/22/2024 ceFAZolin (ANCEF) 1 gram/10 mL in sterile water (premix) 1,000 mg 03/22/2024 ceFAZolin (ANCEF) 1 gram/10 mL in sterile water (premix) 2,000 mg 03/22/2024 dexmedeTOMIDine in 0.9% sodi um chloride (PRECEDEX) 400 mcg/100 mL (4 mcg/mL) infusion (premix) 03/22/2024 dextrose (D10W) 10% bolus 1-500 mL 1 2023 EPINEPHrine in 0.9% sodium c hloride 2,000 mcg/100 mL (20 mcg/mL) infusion (premix) 03/22/2024 famotidine (PEPCID) injection 20 mg 1 03/22 fentaNYL (SUBLIMAZE) preserv ative free injection 50 mcg 03/22/2024 insulin regular in 0.9% sodi um chloride (MYXREDLIN) 100 unit/100 mL (1 unit/mL) infusion (premix) 1 03/22/2024 Lactated Ringer's (LR) infusion 1 norepinephrine in dextrose 5 % (LEVOPHED) 8,000 mcg/250 mL (32 mcg/mL) infusion (premix) 2 03/22/2024 oxyCODONE (ROXICODONE) tablet 5 mg 1 2023 polyethylene glycol (MIRALAX) packet 17 g 1 03/22/2024 potassium chloride 20 mEq/50 mL in sterile water (premix) 20 mEq 1 03/22/2024 prochlorperazine (COMPAZINE) injection 5 mg 1 03/22/2024 propofoL (DIPRIVAN) 10 mg/mL IV 1 senna-docusate (PERICOLACE) 8.6-50 mg per tablet 2 tablet 1 03/22/2024 sodium chloride 0.9% flush 0.5-20 mL 3 03/04 sodium chloride 0.9% infusion 2 03/22/2024 sodium chloride 0.9% solution 1 03/22/2024 vancomycin 1,000 mg/200 mL i n dextrose 5% (premix) 1,000 mg 1 03/22/2024 vancomycin 1250 mg/250 mL in sodium chloride 0.9% (premix) 1,250 mg 1 03/22/2024 vancomycin 1500 mg/250 mL in sodium chloride 0.9% (premix) 1,500 mg 1 03/22/2024 vasopressin in 5% dextrose ( VASOSTRICT) 20 unit/100 mL (0.2 unit/mL) infusion 1 03/22/2024 Lab Orders Without Results Count [...] 03/22/2024 documented in this encounter 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
--- OUTSIDE RECORDS SUMMARY | 2024-07-19 21:59 | XMS_ITS | Encounter Summary ---
Author Organization [facility] Healthcare Address [address] [place] [address] Care Team Providers Care Dual Rate Supervisor Name Role Phone Carolyn Davis MD Primary Care Provider Reason for Visit * Auth/Cert (Routine) Specialty Diagnoses / Procedures Referred By Kary t Referred To Contact Diagnoses Aortic valve stenosis, etiology of cardiac valve disease unspecified Aortic valve stenosis, etiology of cardiac valve disease unspecified [I35.0] Procedures MO RPLCMT PROST AORTIC VALVE OPEN XCP HOMOGRF/STENT REPLACEMENT AORTIC VALVE, LAMBERTO Referral ID Status Reason Start Date Expiration Date Visits Re quested Visits Authorized [id number] 1 1 Encounter Details Date Type Department Care Team (Late st Contact Info) Description 03/22/2024 7:43 AM CDT Anesthesia Event [facility] Operating Room [address] [place] [address] Sherron Archibald MD [address] [place] [address] [place] [id number] Anesthesia Record Procedure Summary Procedure Name Responsible Anesthesiologist Anesthesia Start Time Anesthesia Stop Time REPLACEMENT AORTIC VALVE, LAMBERTO (Chest) Sherron Archibald MD 03/22/24 0743 03/22/24 1220 Events Date Time Event Comment 03/22/2024 0703 Perfusion Ready 0703 Start Data 0706 0739 In Room 0743 An Start 0743 An Start Data 0759 Quick Note Technical diffi culties with SpO2 because monitor on machine is broken-- issue was addressed with anesthesia techs and equipment personnel last week and was fixed temporarily. Called technical system analyst and new monitor was brought in, SpO2 restored, old monitor sent out for maintenance. 0804 An Induction The patient was reevaluated immediately before moderate or deep sedation use and before anesthesia induction. 0808 An Intubation 0814 Line Placement 0828 JAVIER placed 0832 Anesthesia Ready 0848 Proc Start 0848 Incision Start 0853 Lungs Down 0853 Sternotomy 0858 Quick Note 30 000 units he isabel given via anesthesia 0921 CPB ON 0922 Vacuum Assist On 0925 Cooling Start 0925 Aortic Clamp ON 0937 Labs Drawn 1004 Rewarming Start 1009 Quick Note Platelet count sent 1011 Labs Drawn 1020 Quick Note Platelet count is 401 382 6249 Aortic Clamp OFF 1037 Labs Drawn 1057 Vacuum Assist Off 1059 CPB OFF 1100 Quick Note AVR CPB time: 9 8 minutes X clamp time: 67 minutes Temp: 30.6 degrees C NO PRBC on CPB Lowest H / H : 10.1 / 30 Highest glucose : 160 1130 Sternum closed 1155 JAVIER removed 1200 Proc Fin 1213 an stop data 1216 Out of Room 1220 Handoff to RN I completed my handoff to the receiving nurse during which we: 1. Patient identified 2. Responsible provider identified 3. Pertinent medical history reviewed 4. Procedure type and surgical course discussed 5. Intraoperative anesthetic management and any significant issues discussed 6. Expectations and concerns for postop period discussed 7. Questions solicited from receiving nurse 8. Patient disposition at the time of handoff: No value filed. 1220 An Stop Meds Name Total mannitol 25 % injection 12.5 g electrolyte-A (PLASMA-LYTE) 400 mL with albumin 150 mL, heparin 10 mL, mannitol 12.5 g, sodium bicarbonate 50 mL solution 660 mL midazolam 4 mg fentaNYL 1,200 mcg lidocaine syringe 2% 60 mg etomidate 10 mg rocuronium 120 mg vancomycin 1,250 mg ceFAZolin 2,000 mg tranexamic acid (CYKLOKAPRON ) 1,000 mg in sodium chloride 0.9% 100 mL (10 mg/mL) infusion 216.47 mg heparin 5,000 unit/ml 30,000 Units norepinephrine (LEVOPHED) 8, 000 mcg in dextrose 5% 250 mL (32 mcg/mL) infusion 0.13 mg calcium chloride 0.5 g protamine 210 mg tranexamic acid 1,000 mg nitroglycerin infusion 175 mcg norepinephrine 16 mcg potassium arrest solution 13 mEq Lactated Ringer's (LR) 16 mL with adenosine (ADENOCARD) 14 mL, lidocaine (cardiac) (XYLOCAINE) 5 mL, magnesium sulfate 4 g solution 46 mL sodium bicarbonate injection 1 mEq/mL 50 mEq propofol 131.41 mg albumin human bottle 25 % 100 mL NS 0.9% 300 mL Lactated Ringer's (LR) infusion 800 mL electrolyte-A (PLASMA-LYTE) infusion 1,0 00 mL * Agents Name O2 Sevoflurane Isoflurane Inspired Isoflurane Inspired Sevoflurane * Blood No blood administrations on file. Lines, Drains, and Airways Type Details Placement Removal Wound 03/22/24; 1154; N; Incision; Chest (chest tube site); Medial 03/22/24 1154 by Venkat Yeager RN Wound 03/22/24; 1157; Incision; Chest; Mid-line 03/22/24 1157 by Venkat Yeager RN Peripheral IV Placement Date: 03/22/24; Placement Time: 0635; Catheter Size: 18 G; Orientation: Anterior, Right; Location: Forearm; Site Prep: Chlorhexidine; Technique: Anatomical landmarks; Inserted by: kyleigh sue; Insertion Attempts: 1; Patient Tolerance: Tolerated well; Removal Date: 03/28/24 03/22/24 0635 by Kyleigh Sue RN 03/28/24 0000 by Brayan Dyer Urethral Catheter Placement Date: 03/22/24; Placement Time: 0816; Inserted by: Venkat Yeager RN; Type: Double-lumen, Straight-tip (Placed without difficulty under sterile condition); Balloon Size: 10 mL; Urine Returned: Yes; Removal Date: 03/25/24; Removal Time: 1600; Removal Reason: Per order 03/22/24 0816 by Venkat Yeager RN 03/25/24 1600 by Kelsey Harrington RN Arterial Line Placement Date: 03/22/24; Placemnt Time: 0855 (created via procedure documentation); Size: 20 G; Orientation: Left; Location: Radial; Securement: Taped, Transparent dressing; Removal Date: 03/24/24; Removal Reason: (unable to draw blood, waveform damped) 03/22/24 0855 by Vania Chaudhry AA 03/24/24 0000 by Carole Lundberg RN ETT Placement Date: 03/22/24; Placement Time: 857 (created via procedure documentation); Mask Ventilation: 1; Technique: Direct laryngoscopy; Type: ETT - single; Single Lumen Tube Size: 8 mm; Cuffed: Yes; Laryngoscope: Crystal; Blade Size: 4; Location: Oral; Grade View: Grade I; Insertion Attempts: 1; Placement Verification: Auscultation, Capnometry; Removal Date: 03/23/24; Removal Time: 1022 03/22/24 0858 by Vania Chaudhry AA 03/23/24 1022 by Carole Lundberg RN Introducer Placement Date: 03/22/24; Placement Time: 857 (created via procedure documentation); Existing LDA Placed by: Yes; Size: multi-lumen access catheter (MAC); Insertion Attempts: 03/28/24 03/22/24 0858 by Vania Chaudhry AA 03/28/24 0000 by Brayan Dyer Catheter Placement Date: 03/22/24; Placement Time: 857 (created via procedure documentation); Site Prep: Chlorhexidine; Removal Date: 03/23/24; Removal Time: 1600; Removal Cath Length: 49 cm; Cath Tip Cultured: No 03/22/24 0858 by Vania Chaudhry AA 03/23/24 1600 by Carole Lundberg RN Y Chest Tube A and B 03/22/24; 1043; A; Mediastinal; 28 Fr.; B; Right; Pleural; 24 Fr. (Seferino); Per order 03/22/24 1043 by Venkat Yeager RN 03/24/24 1230 by Carole Lundberg RN documented in this encounter Social History Tobacco [...] often do you attend chur ch or rastafarian services? 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 Gender Identity Not on file Sexual Orientation Not on file documented as of this encounter OR Notes * Anesthesia Postprocedure Evaluation - Michele Hamilton AA - 03/23/2024 9:05 AM CDT Patient: Wyatt Madden Procedure Summary Date: 03/22/24 Room / Location: OPERATING ROOM 14 / OPERATING ROOM Anesthesia Start: 742 Anesthesia Stop: 1219 Procedure: REPLACEMENT AORTIC VALVE, LAMBERTO (Chest) Diagnosis: Aortic valve stenosis, etiology of cardiac valve disease unspecified (Aortic valve stenosis, etiology of cardiac valve disease unspecified [I35.0]) Providers: Ernie Baldwin MD Responsible Provider: Sherron Archibald MD Anesthesia Type: general ASA Status: 3 Anesthesia Type: general Last vitals BP 141/53 Pulse 90 Temp 37.9 ??C (100.2 ??F) (Core) Resp 12 SpO2 100% Anesthesia Post Evaluation Patient location during evaluation: ICU Patient participation: complete - patient participated 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 Pain score: 2 Pain management: adequate Airway patency: adequate and patent Evidence of recall: no Cardiovascular status: acceptable Respiratory status: ETT and spontaneous ventilation Hydration status: acceptable Pt is: normothermic Nausea/Vomiting status: none Comments: Patient intubated but easily aroused, sedated with propofol at 10 mcg/kg/min and precedex0.7 mcg/kg/hr, patients pain being managed with oral pain pills, no nausea, on breathing trial SV with VT 451 x 13 FiO2 40% satting 100%, Levophed at 0.06 mcg/kg/min vaso at 0.04 unit/min and insulinat 3.1 unit/h, bp 120/47 (70) Pa 20/10(14) CVP 6 heart paced at 90, Ci 3.6 SVO2 58 No notable events documented. * Anesthesia Procedure Notes - Vania Chaudhry AA - 03/22/2024 8:58 AM CDTAssociated Order(s): Central Venous Line Central Venous Line Patient location: OR Indication: central venous access and CVP monitoring Staff: Supervising provider: Sherron Archibald MD Placed by: AA: Vania Chaudhry AA Procedure prep: Patient position: Trendelenburg. PPE: provider hat/mask, sterile gloves, sterile gown, provider hand hygiene and full body drape. Prep solution: chlorhexadine/alcohol was applied to area. Ultrasound Evaluation: Ultrasound was used prior to prep. Central line: Laterality: right Site: internal jugular Catheter type: multi-lumen access catheter (MAC) Catheter size: 9 Fr. Technique: anatomy identified with ultrasound, vein located with finder needle, Seldinger technique, wire threaded easily and wire removed intact Venous verification: pressure transduced Post insertion: all ports aspirated, all ports flushed easily, line sutured in place and occlusive dressing applied Chlorhexidine patch applied: yes Number of attempts: 1 PA catheter placement: PA catheter type: oximetric PA catheter size: 8 Fr PA catheter laterality: right PA catheter site: internal jugular Placement guided by: pressure tracing changes and verified by JAVIER PA catheter depth 48 cmNo Assessment: Events: patient tolerated procedure well with no complications * Anesthesia Procedure Notes - Vania Chaudhry AA - 03/22/2024 8:56 AM CDTAssociated Order(s): Airway Airway Patient location: OR Urgency: elective Indications for airway management: anesthesia and airway protection Difficult airway: no Staff: Supervising provider: Sherron Archibald MD Placed by: AA: Osmin Almaraz AA Emergent airway documentation: Risks and benefits discussed: yes Consent obtained: yes Consent given by: patient Airway prep: Preoxygenated: yes Patient position: sniffing Mask difficulty assessment: 1 - vent by mask Spontaneous ventilation during airway: absent Sedation level during airway: GA Final airway details: Final airway type: endotracheal airway Tube type: ETT ETT size: 8.0 mm Cuffed: yes Technique used for successful ETT placement: direct laryngoscopy Insertion site: oral Blade type: Crystal Blade size: 4 Cormack-Lehane (direct): grade I - full view of glottis Cuff inflated with: air ETT to lips: 22 cm Placement verified by: auscultation and CO2 detection Airway secured with: silk tape Number of attempts: 1 * Anesthesia Procedure Notes - Vania Chaudhry AA - 03/22/2024 8:55 AM CDTAssociated Order(s): Arterial Line Arterial Line Patient location: OR Indication: continuous blood pressure monitoring and blood sampling needed Staff: Supervising provider: Sherron Archibald MD Placed by: AA: Osmin Almaraz AA Procedure prep: Prep solution: chlorhexadine/alcohol Prep: provider hat/mask and sterile gloves Skin infiltrated with lidocaine 1%: yes Arterial line: Catheter size: 20 gauge Catheter length: 1 and 3/4 inch Catheter type: wire-guided catheter Seldinger technique: yes Laterality: left Site: radial artery Line secured: Tegaderm and tape Results: good waveform and good blood return Number of attempts: 1 Assessment: Events: patient tolerated procedure well with no complications * Anesthesia Procedure Notes - Sherron Archibald MD - 03/22/2024 8:46 AM CDT Associated Order(s): JAVIER JVAIER Date/time: Staff: Supervising anesthesiologist: Sherron Archibald MD Performed by: Anesthesiologist: Sherron Archibald MD Preprocedure checklist: patient identified, procedure contraindications assessed and JAVIER probe inserted into esophagus using lubricating jelly General procedure Information: Reason for procedure/indications: assessment of surgical repair and hemodynamic monitoring Procedure performed at surgeon's request: yes Results discussed with surgeon: yes Images submitted to archive: no Patient location: OR Intubated: yes Bite blocked placed: yes Probe Insertion: easy Complications: no Probe type: adult Modalities: 2D imaging, continuous wave Doppler, pulsed wave Doppler and color Doppler Echocardiographic and doppler measurements: Ventricles: Left ventricle: Cavity size: normal Hypertrophy: Yes Thrombus: No Global function: normal LVEF%: normal Right ventricle: Cavity size: normal Hypertrophy: no Thrombus: No Global function: normal RVEF%: normal Interventricular septum: normal Regional function: 1- Basal anteroseptal: normal 2- Basal anterior: normal 3- Basal anterolateral: normal 4- Basal inferolateral: normal 5- Basal inferior: normal 6- Basal inferoseptal: normal 7- Mid anteroseptal: normal 8- Mid anterior: normal 9- Mid anterolateral: normal 10- Mid inferolateral: normal 11- Mid inferior: normal 12- Mid inferoseptal: normal 13- Apical anterior: normal 14- Apical lateral: normal 15- Apical inferior: normal 16- Apical septal: normal 17- Amelia: normal Valves: Aortic Valve: Annulus: normal (23 mm) Leaflet morphology: calcified and thickened Leaflet motion: restricted Stenosis: moderate and severe Regurgitation: none Peak gradient: 41 mmHg Mean gradient: 23 mmHg Mitral valve: Annulus: normal Leaflet morphology anterior: normal Leaflet morphology posterior: normal Leaflet motion anterior: normal Leaflet motion posterior: normal Stenosis: none Regurgitation: none Tricuspid valve: Annulus: normal Leaflet morphology: normal Leaflet motion: normal Stenosis: none Regurgitation: none Aorta: Ascending aorta: Size: normal Dissection: no Plaque mobile: no Descending aorta: Size: normal Dissection: no Plaque mobile: no Atria: Right atrium: Size: normal Left atrium: Size: normal (normal) Left atrial appendage: normal Interatrial septum: normal Diastolic function and other findings: Diastolic function: normal Pericardium: normal Left pleural effusion: none Right pleural effusion: normal Pulmonary venous flow: normal Postprocedure (follow-up) JAVIER exam: LV: unchanged RV: unchanged Interventricular septum: unchanged Aortic valve: mechanical Mitral valve: unchanged Pulmonic valve: unchanged Tricuspid valve: unchanged Atria: unchanged Aorta: unchanged Pericardium: unchanged Left pleural: unchanged Right pleural: unchanged Attestation Statement: By signing this report the attending anesthesiologist certifies that he or she has personally reviewed and interpreted the echocardiogram and has reviewed and or edited and agrees with the written comments contained within the report. * Anesthesia Preprocedure Evaluation - Sherron Archibald MD - 03/18/2024 11:19 AM CDT Images from the original note were not included. Anesthesia Evaluation Wyatt Bobby Madden is a 58 y.o. male REPLACEMENT AORTIC VALVE, [place] CLAMP, LAMBERTO (Chest) Pre-Op Diagnosis Codes: * Aortic valve stenosis, etiology of cardiac valve disease unspecified [I35.0] HISTORY Past Medical History Information obtained from: patient and chart. Information obtained during: In Person Neurological + TIA Number of TIA episodes: 1. Date of last TIA: 03/2024. + Seizures + Psychiatric history - depression and anxiety Pertinent negatives: CVA/stroke Cardiovascular + Hypertension + Hyperlipidemia + CHF Diastolic function: stage I - impaired relaxation LVEF: 60-70%. + Current valvular disease - - severe; TR - mild. + Atrial fibrillation/flutter - Current Rhythm: non-fibrillation/flutter. Rhythm type: paroxysmal (multiple episodes < 7 days). + Other arrhythmia - PSVT. Respiratory + Sleep apnea (NICOLE) Prescribed device: CPAP and PAP compliant. + Current smoker (30+ pk years, quit 03/2024 ++MJ) - Counseled to abstain from smoking the day of surgery. Patient refrained from smoking on day of surgery. Hepatic / Heme Hepatic/Heme system: negative Gastrointestinal GI system: negative Renal / Renal/ system: negative Musculoskeletal/Pain Musculoskeletal/Pain system: negative Endocrine / Other Comments: H/o ETOH abuse s/p rehab x 3 mo Functional Capacity Functional capacity: 4-6 METs Review of Systems + SOB + chest pain + dentures/partials Patient Active Problem List Diagnosis Date Noted Aortic valve stenosis 02/26/2024 Tobacco dependence 01/06/2024 Nonrheumatic aortic valve stenosis 01/06/2024 Supraventricular tachycardia (HCC) 01/06/2024 Lipid screening 01/06/2024 Past Medical History: Diagnosis Date Arthritis Atrial [...] JAVIER TYMPANOSTOMY TUBE PLACEMENT No Known Allergies Taking? Last Dose Start Date End Date Provider aspirin (ASPIR-81) 81 mg tablet -- 08/08/15 -- Tom De Jesus MD take 1 tablet by oral route every day Patient taking differently: Take 1 tablet (81 mg total) by mouth nightly buPROPion SR (ZYBAN) 150 mg 12 hr tablet -- -- -- Provider, MD Damian dilTIAZem CD 240 mg 24 hr capsule -- 01/11/24 -- Provider, MD Damian eszopiclone (LUNESTA) 3 mg tablet -- 01/14/24 -- Provider, MD Damian metoprolol (LOPRESSOR) 25 mg tablet -- -- -- Provider, HistoricalMD naltrexone (DEPADE) 50 mg tablet -- -- -- Provider, HistoricalMD QUEtiapine XR (SEROquel XR) 50 mg tablet extended release 24 hr -- -- -- Provider, MD Damian rOPINIRole (REQUIP) 4 mg tablet -- 01/04/24 -- Provider, MD Damian rosuvastatin (CRESTOR) 40 mg tablet -- -- -- Provider, MD Damian warfarin (COUMADIN) 5 mg tablet 03/16/2024 -- -- Provider, MD Damian -- Patient taking differently: Current Outpatient Medications: aspirin (ASPIR-81) 81 mg tablet buPROPion SR (ZYBAN) 150 mg 12 hr tablet dilTIAZem CD 240 mg 24 hr capsule eszopiclone (LUNESTA) 3 mg tablet metoprolol (LOPRESSOR) 25 mg tablet naltrexone (DEPADE) 50 mg tablet QUEtiapine XR (SEROquel XR) 50 mg tablet extended release 24 hr rOPINIRole (REQUIP) 4 mg tablet rosuvastatin (CRESTOR) 40 mg tablet warfarin (COUMADIN) 5 mg tablet Social History Tobacco Use Smoking Status Former Current packs/day: 0.50 Types: Cigarettes Smokeless Tobacco Never Tobacco Comments QUIT SMOKING 03/17/2024 Alcohol Use: Not At Risk (03/18/2024) AUDIT-C Frequency of Alcohol Consumption: Never Average Number of Drinks: Patient does not drink Frequency of Binge Drinking: Never Substance and Sexual Activity Drug Use Yes Types: Marijuana Comment: smokes and uses edibles, will be doing only edibles Family History Problem Relation Age of Onset Cancer Mother Cancer, unknown; Cause of : Cancer, unknown Other Father Alive and well; PAT Physical Exam Airway Exam: Mallampati: II Cervical ROM: FROM Patient presents with mustache. Cardiovascular Exam: Rate: regular Rhythm: regular Murmur: Negative for peripheral edema Pulmonary Exam: LCTA, bilat EENT Exam: trachea midline Dental Exam: Upper dentures Skin Exam: Skin is warm. Current state: Patient's current state is cooperative and interactive. Vitals: 03/18/24 1124 BP: 143/73 Pulse: 53 Temp: 36.9 ??C (98.4 ??F) SpO2: 98% PT: 03/18/2024: 16.7 sec (H) INR: 03/18/2024: 1.53 (H) APTT: 03/18/2024: 34 sec Hgb A1C: No results found for requested labs within last 30 days. CBC RBC: 03/18/2024: 4.54 M/cumm RDW: No results found for requested labs within last 30 days. MCHC: 03/18/2024: 34.6 g/dL MCH: 03/18/2024: 30.0 pg MCV: 03/18/2024: 86.6 fL Hct: 03/18/2024: 39.3 % Hgb: 03/18/2024: 13.6 g/dL WBC: 03/18/2024: 7.2 K/cumm MPV: 03/18/2024: 10.0 fL Platelets: 03/18/2024: 140 K/cumm (L) RDW CV: 03/18/2024: 13.3 % RDW Sd: 03/18/2024: 42.1 fL BMP Glucose: 03/18/2024: 103 mg/dL Calcium: 03/18/2024: 9.1 mg/dL Sodium: 03/18/2024: 140 mmol/L Potassium: 03/18/2024: 3.9 mmol/L CO2: 03/18/2024: 26 mmol/L Chloride: 03/18/2024: 105 mmol/L BUN: 03/18/2024: 6 mg/dL Creatinine: 03/18/2024: 0.65 mg/dL (L) 02/18/2023 TTE: EF 65%, Moderate aortic stenosis. [...] cusps appear severely sclerotic. No aortic regurgitation. EKG 03/19/2024 Vent Rate: 49 bpm RR Interval: 1215 msec MO Interval: 185 msec QRS Duration: 106 msec QT Interval: 433 msec QTC Interval: 403 msec P-R-T Phelps: 72 - 56 - 60 degrees IMPRESSION: SINUS BRADYCARDIA BORDERLINE ECG Electronically Signed By: Dr. Deedee Dejesus [facility] Specimen Collected: 03/18/24 11:50 Last Resulted: 03/19/24 00:01 DOS Physical Exam Medical history, medications, and allergies reviewed. Attestation: I endorse the findings of the anesthesia pre-evaluation assessment dated: 03/22/2024. Airway Exam: Mallampati: II Cervical ROM: FROM TM distance: >4 Cardiovascular Exam: Rate: regular Rhythm: regular Murmur: MANJIT Pulmonary Exam: LCTA, bilat EENT Exam: trachea midline Dental Exam: Upper dentures Current state: Patient's current state is cooperative. Anesthesia Plan ASA 3 Planned anesthesia: General Team communication plan: oral ET tube Invasive Monitors Planned: Invasive monitors planned: arterial line, JAVIER and pulmonary artery catheter. Induction: Induction: intravenous. Postoperative Plan: Postoperative administration opioids intended. No postoperative mechanical ventilation intended. Patient's planned disposition post procedure is ICU. No trial extubation planned. Informed Consent: Discussed plan with AA and attending. Anesthesia plan and risks discussed with patient and spouse. Consent and Attending signature: I and/or my designee have discussed the anesthesia plan, benefits, possible alternatives, parental presence at time of induction (if indicated), and clinically relevant risks that may include dental injury, unintentional awareness, and/or other complications. The patient and/or parent/legal guardian understand, and agree to proceed. All questions answered. documented in this encounter Miscellaneous Notes * Post-Perfusion - Thuy Miranda CCP - 03/22/2024 11:10 AM CDT Medications mannitol 25 % injection (g) Date/Time Rate/Dose/Volume Action Admin User Audit 03/22/24 0702 12.5 g Given Thuy Miranda CCP Comment: prime electrolyte-A (PLASMA-LYTE) 400 mL with albumin 150 mL, heparin 10 mL, mannitol 12.5 g, sodium bicarbonate 50 mL solution (mL) Date/Time Rate/Dose/Volume Action Admin User Audit 03/22/24 0702 660 mL New Bag Thuy Miranda CCP midazolam (mg) Date/Time Rate/Dose/Volume Action Admin User Audit 03/22/24 0743 2 mg Given Chaudhry, La Vernia Mag, AA fentaNYL (mcg) Date/Time Rate/Dose/Volume Action Admin User Audit 03/22/24 0804 400 mcg Given Chaudhry, La Vernia Mag, AA 0846 200 mcg Given Chaudhry, La Vernia Mag, AA 0848 150 mcg Given Chaudhry, La Vernia Mag, AA 0853 250 mcg Given Chaudhry, La Vernia Mag, AA lidocaine syringe 2% (mg) Date/Time Rate/Dose/Volume Action Admin User Audit 03/22/24 0804 60 mg Given Chaudhry, La Vernia Mag, AA etomidate (mg) Date/Time Rate/Dose/Volume Action Admin User Audit 03/22/24 0804 10 mg Given Chaudhry, La Vernia Mag, AA rocuronium (mg) Date/Time Rate/Dose/Volume Action Admin User Audit 03/22/24 0804 50 mg Given Chaudhry, La Vernia Mag, AA 0846 50 mg Given Chaudhry, La Vernia Mag, AA vancomycin (mg) Date/Time Rate/Dose/Volume Action Admin User Audit 03/22/24 0832 1,250 mg (over 90 min) Given Chaudhry, La Vernia Mag, AA ceFAZolin (mg) Date/Time Rate/Dose/Volume Action Admin User Audit 03/22/24 0845 2,000 mg Given Chaudhry, La Vernia Mag, AA tranexamic acid (CYKLOKAPRON) 1,000 mg in sodium chloride 0.9% 100 mL (10 mg/mL) infusion (mg/kg/hr) Dosing weight: 76.4 Date/Time Rate/Dose/Volume Action Admin User Audit 03/22/24 0849 1 mg/kg/hr - 7.64 mL/hr New Bag Chaudhry, La Vernia Mag, AA heparin 5,000 unit/ml (Units) Date/Time Rate/Dose/Volume Action Admin User Audit 03/22/24 0859 30,000 Units Given Chaudhry, La Vernia Mag, AA norepinephrine (LEVOPHED) 8,000 mcg in dextrose 5% 250 mL (32 mcg/mL) infusion (mcg/kg/min) Dosing weight: 76.4 Date/Time Rate/Dose/Volume Action Admin User Audit 03/22/24 1032 0.04 mcg/kg/min - 5.73 mL/hr New Bag Chaudhry, La Vernia Mag, AA 1106 Stopped Chaudhry, La Vernia Mag, AA protamine (mg) Date/Time Rate/Dose/Volume Action Admin User Audit 03/22/24 1059 210 mg (over 5 min) Given Chaudhry, La Vernia Mag, AA tranexamic acid (mg) Date/Time Rate/Dose/Volume Action Admin User Audit 03/22/24 0836 1,000 mg (over 10 min) Given Chaudhry, La Vernia Mag, AA nitroglycerin infusion (mcg) Date/Time Rate/Dose/Volume Action Admin User Audit 03/22/24 0850 25 mcg Given Chaudhry, La Vernia Mag, AA 0854 50 mcg Given Chaudhry, La Vernia Mag, AA 0858 50 mcg Given Chaudhry, La Vernia Mag, AA 0900 50 mcg Given Chaudhry, La Vernia Mag, AA norepinephrine (mcg) Date/Time Rate/Dose/Volume Action Admin User Audit 03/22/24 0903 8 mcg Given Chaudhry, La Vernia Mag, AA 0907 8 mcg Given Chaudhry, La Vernia Mag, AA potassium arrest solution (mEq) Date/Time Rate/Dose/Volume Action Admin User Audit 03/22/24 1033 13 mEq Given Thuy Miranda, CCP Lactated Ringer's (LR) 16 mL with adenosine (ADENOCARD) 14 mL, lidocaine (cardiac) (XYLOCAINE) 5 mL, magnesium sulfate 4 g solution (mL) Date/Time Rate/Dose/Volume Action Admin User Audit 03/22/24 1034 46 mL New Bag Thuy Miranda, CCP sodium bicarbonate injection 1 mEq/mL (mEq) Date/Time Rate/Dose/Volume Action Admin User Audit 03/22/24 1042 50 mEq Given Thuy Miranda, CCP albumin human bottle 25 % (mL) Date/Time Rate/Dose/Volume Action Admin User Audit 03/22/24 0702 New Bag Thuy Miranda, CCP 0703 100 mL Stopped Thuy Miranda, CCP Comment: prime NS 0.9% (mL) Date/Time Rate/Dose/Volume Action Admin User Audit 03/22/24 0832 New Bag Chaudhry, La Vernia Mag, AA Lactated Ringer's (LR) infusion (mL/hr) Dosing weight: 81.6 Date/Time Rate/Dose/Volume Action Admin User Audit 03/22/24 0743 30 mL/hr Rate Verify Chaudhry, La Vernia Mag, AA electrolyte-A (PLASMA-LYTE) infusion (mL) Date/Time Rate/Dose/Volume Action Admin User Audit 03/22/24 0832 New Bag Chaudhry, La Vernia Mag, AA Events Date Time Event 03/22/2024 0703 Perfusion Ready 0703 Start data Collection 0706 Ready for Procedure 0739 Patient in Room 0743 Anesthesia Start 0743 Start Data Collection 0759 Quick Note Technical difficulties with SpO2 because monitor on machine is broken-- issue was addressed with anesthesia techs and equipment personnel last week and was fixed temporarily. Called technical system analyst and new monitor was brought in, SpO2 restored, old monitor sent out for maintenance. 0804 Induction The patient was reevaluated immediately before moderate or deep sedation use and before anesthesia induction. 0808 Intubation 0814 Line Placed 0828 JAVIER placed 0832 Anesthesia Ready 0848 Procedure Start 0848 Incision Start 0853 Lungs Down 0853 Sternotomy 0858 Quick Note 30 000 units heparin given via anesthesia 0921 CPB ON 0922 Vacuum Assist On 0925 Cooling Start 0925 Aortic Clamp ON 0937 Labs Drawn 1004 Rewarming Start 1009 Quick Note Platelet count sent 1011 Labs Drawn 1020 Quick Note Platelet count is 307 044 6981 Aortic Clamp OFF 1037 Labs Drawn 1057 Vacuum Assist Off 1059 CPB OFF 1100 Quick Note AVR CPB time: 98 minutes X clamp time: 67 minutes Temp: 30.6 degrees C NO PRBC on CPB Lowest H / H : 10.1 / 30 Highest glucose : 160 Cosigned by Ernie Baldwin MD at 03/22/2024 6:55 PM CDT documented in this encounter Plan of Treatment Not on file documented as of this encounter Procedures Procedure Name Priority Date/Time Associated Diagnosis Comments ANESTHESIA CENTRAL VENOUS LINE PLACEMENT Routine 03/22/2024 8:58 AM CDT ANESTHESIA CENTRAL VENOUS LINE PLACEMENT Routine 03/22/2024 8:58 AM CDT MO AN ELECTIVE ENDOTRACHEAL AIRWAY Routine 03/22/2024 8:56 AM CDT ANESTHESIA ARTERIAL LINE PLACEMENT Routine 03/22/2024 8:55 AM CDT ANESTHESIA JAVIER Routine 03/22/2024 8:46 AM CDT documented in this encounter Results * BW AN SHEATH INTRODUCER PERFORMABLE, PULMONARY ARTERY CATH (03/22/2024 8:58 AM CDT) Narrative Vania Chaudhry AA - 03/22/2024 8:58 AM CDT Vania Chaudhry AA ? 03/22/2024 ??8:58 AM Central Venous Line Patient location: OR Indication: central venous access and CVP monitoring Staff: Supervising provider: Sherron Archibald MD Placed by: AA: Vania Chaudhry AA Procedure prep: Patient position: Trendelenburg. PPE: provider hat/mask, sterile gloves, sterile gown, provider hand hygiene and full body drape. Prep solution: chlorhexadine/alcohol was applied to area. Ultrasound Evaluation: Ultrasound was used prior to prep. Central line: Laterality: right Site: internal jugular Catheter type: multi-lumen access catheter (MAC) Catheter size: 9 Fr. Technique: anatomy identified with ultrasound, vein located with finder needle, Seldinger technique, wire threaded easily and wire removed intact Venous verification: pressure transduced Post insertion: all ports aspirated, all ports flushed easily, line sutured in place and occlusive dressing applied Chlorhexidine patch applied: yes Number of attempts: 1 PA catheter placement: PA catheter type: oximetric PA catheter size: 8 Fr PA catheter laterality: right PA catheter site: internal jugular Placement guided by: pressure tracing changes and verified by JAVIER PA catheter depth 48 cmNo Assessment: Events: patient tolerated procedure well with no complications us Sherron Archibald MD ANESTHESIA ORDERABLES Final Resu lt * MO AN ELECTIVE ENDOTRACHEAL AIRWAY (03/22/2024 8:56 AM CDT) Narrative Vania Chaudhry AA - 03/22/2024 8:56 AM CDT Vania Chaudhry AA ? 03/22/2024 ??8:58 AM Airway Patient location: OR Urgency: elective Indications for airway management: anesthesia and airway protection Difficult airway: no Staff: Supervising provider: Sherron Archibald MD Placed by: AA: Osmin Almaraz AA Emergent airway documentation: Risks and benefits discussed: yes Consent obtained: yes Consent given by: patient Airway prep: Preoxygenated: yes Patient position: sniffing Mask difficulty assessment: 1 - vent by mask Spontaneous ventilation during airway: absent Sedation level during airway: GA Final airway details: Final airway type: endotracheal airway Tube type: ETT ETT size: 8.0 mm Cuffed: yes Technique used for successful ETT placement: direct laryngoscopy Insertion site: oral Blade type: Crystal Blade size: 4 Cormack-Lehane (direct): grade I - full view of glottis Cuff inflated with: air ETT to lips: 22 cm Placement verified by: auscultation and CO2 detection Airway secured with: silk tape Number of attempts: 1 us Sherron Archibald MD ANESTHESIA ORDERABLES Final Resu lt * Arterial Line (03/22/2024 8:55 AM CDT) Narrative Vania Chaudhry AA - 03/22/2024 8:55 AM CDT Vania Chaudhry AA ? 03/22/2024 ??8:55 AM Arterial Line Patient location: OR Indication: continuous blood pressure monitoring and blood sampling needed Staff: Supervising provider: Sherron Archibald MD Placed by: AA: Osmin Almaraz AA Procedure prep: Prep solution: chlorhexadine/alcohol Prep: provider hat/mask and sterile gloves Skin infiltrated with lidocaine 1%: yes Arterial line: Catheter size: 20 gauge Catheter length: 1 and 3/4 inch Catheter type: wire-guided catheter Seldinger technique: yes Laterality: left Site: radial artery Line secured: Tegaderm and tape Results: good waveform and good blood return Number of attempts: 1 Assessment: Events: patient tolerated procedure well with no complications us Sherron Archiabld MD ANESTHESIA ORDERABLES Final Resu lt * JAVIER (03/22/2024 8:46 AM CDT) Anatomical Region Laterality Modality Other Narrative 03/22/2024 8:46 AM CDT Sherron Archibald MD ? 03/22/2024 ??8:48 AM JAVIER Date/time: Staff: Supervising anesthesiologist: Sherron Archibald MD Performed by: Anesthesiologist: Sherron Archibald MD Preprocedure checklist: patient identified, procedure contraindications assessed and JAVIER probe inserted into esophagus using lubricating jelly General procedure Information: Reason for procedure/indications: assessment of surgical repair and hemodynamic monitoring Procedure performed at surgeon's request: yes Results discussed with surgeon: yes Images submitted to archive: ??no Patient location: OR Intubated: yes Bite blocked placed: yes Probe Insertion: easy Complications: no Probe type: adult Modalities: 2D imaging, continuous wave Doppler, pulsed wave Doppler and color Doppler Echocardiographic and doppler measurements: Ventricles: Left ventricle: Cavity size: normal Hypertrophy: Yes Thrombus: No Global function: normal LVEF%: normal Right ventricle: Cavity size: normal Hypertrophy: no Thrombus: No Global function: normal RVEF%: normal Interventricular septum: normal Regional function: 1- Basal anteroseptal: normal 2- Basal anterior: normal 3- Basal anterolateral: normal 4- Basal inferolateral: normal 5- Basal inferior: normal 6- Basal inferoseptal: normal 7- Mid anteroseptal: normal 8- Mid anterior: normal 9- Mid anterolateral: normal 10- Mid inferolateral: normal 11- Mid inferior: normal 12- Mid inferoseptal: normal 13- Apical anterior: normal 14- Apical lateral: normal 15- Apical inferior: normal 16- Apical septal: normal 17- Amelia: normal Valves: Aortic Valve: Annulus: normal (23 mm) Leaflet morphology: calcified and thickened Leaflet motion: restricted Stenosis: moderate and severe Regurgitation: none Peak gradient: 41 mmHg Mean gradient: 23 mmHg Mitral valve: Annulus: normal Leaflet morphology anterior: normal Leaflet morphology posterior: normal Leaflet motion anterior: normal Leaflet motion posterior: normal Stenosis: none Regurgitation: none Tricuspid valve: Annulus: normal Leaflet morphology: normal Leaflet motion: normal Stenosis: none Regurgitation: none Aorta: Ascending aorta: Size: normal Dissection: no Plaque mobile: no Descending aorta: Size: normal Dissection: no Plaque mobile: no Atria: Right atrium: Size: normal Left atrium: Size: normal (normal) Left atrial appendage: normal Interatrial septum: normal Diastolic function and other findings: Diastolic function: normal Pericardium: normal Left pleural effusion: none Right pleural effusion: normal Pulmonary venous flow: normal Postprocedure (follow-up) JAVIER exam: LV: unchanged RV: unchanged Interventricular septum: unchanged Aortic valve: mechanical Mitral valve: unchanged Pulmonic valve: unchanged Tricuspid valve: unchanged Atria: unchanged Aorta: unchanged Pericardium: unchanged Left pleural: unchanged Right pleural: unchanged Attestation Statement: By signing this report the attending anesthesiologist certifies that he or she has personally reviewed and interpreted the echocardiogram and has reviewed and or edited and agrees with the written comments contained within the report. us Sherron Archibald MD ANESTHESIA ORDERABLES Final Resu lt documented in this encounter Visit Diagnoses Not on filedocumented in this encounter Administered Medications Inactive Administered Medications - up to 3 most recent administrations Medication Order MAR Action Action Date Dose Rate Site albumin 25 % bottle intravenous, Continuous PRN, Starting on Thu03/22/24 at 0702, Anesthesia Intra-op New Bag 03/22/2024 7:02 AM CDT calcium chloride IV syringe intravenous, As needed, Starting on Thu03/22/24 at 1120, Anesthesia Intra-op Given 03/22/2024 11:20 AM CDT 0.5 g ceFAZolin (ANCEF) injection intravenous, Administer over 3 Minutes, As needed, Starting on Thu03/22/24 at 0845, Anesthesia Intra-op Given 03/22/2024 8:45 AM CDT 2,000 mg electrolyte-A (PLASMA-LYTE) 400 mL with albumin 150 mL, heparin 10 mL, mannitol 12.5 g, sodium bicarbonate 50 mL solution device prime, Continuous PRN, Starting on Thu03/22/24 at 0702, Anesthesia Intra-op New Bag 03/22/2024 7:02 AM CDT 660 mL electrolyte-A (PLASMA-LYTE) infusion intravenous, Continuous PRN, Starting on Thu03/22/24 at 0832, Anesthesia Intra-op New Bag 03/22/2024 8:32 AM CDT etomidate (AMIDATE) injection intravenous, Administer over 1 Minutes, As needed, Starting on Thu03/22/24 at 0804, Anesthesia Intra-op Given 03/22/2024 8:04 AM CDT 10 mg fentaNYL (SUBLIMAZE) preservative free injection intravenous, As needed, Starting on Thu03/22/24 at 0804, Anesthesia Intra-op Given 03/22/2024 11:41 AM CDT 100 mcg Given 03/22/2024 11:13 AM CDT 100 mcg Given 03/22/2024 8:53 AM CDT 250 mcg heparin 5,000 unit/mL injection intravenous, As needed, Starting on Thu03/22/24 at 0859, Anesthesia Intra-op Given 03/22/2024 8:59 AM CDT 30,000 Units Lactated Ringer's (LR) 16 mL with adenosine (ADENOCARD) 14 mL, lidocaine (cardiac) (XYLOCAINE) 5 mL, magnesium sulfate 4 g solution intravenous, Continuous PRN, Starting on Thu03/22/24 at 1034, Anesthesia Intra-op New Bag 03/22/2024 10:34 AM CDT 46 mL Lactated Ringer's (LR) infusion 30 mL/hr, intravenous, Continuous, Starting on Thu03/22/24 at 0630, Pre-Op Restarted 03/22/2024 12:20 PM CDT Rate/Dose Verify 03/22/2024 7:43 AM CDT 30 mL/h r New Bag 03/22/2024 6:56 AM CDT 30 mL/hr 30 mL/hr lidocaine (cardiac) (XYLOCAINE) preservative free injection intravenous, As needed, Starting on Thu03/22/24 at 0804, Anesthesia Intra-op, Indications: Ventricular ArrhythmiasIndications:Ventricular Arrhythmias Given 03/22/2024 8:04 AM CDT 60 mg mannitol 25 % injection intravenous, Administer over 30 Minutes, As needed, Starting on Thu03/22/24 at 0702, Anesthesia Intra-op Given 03/22/2024 7:02 AM CDT 12.5 g midazolam (VERSED) 1 mg/mL preservative free injection intravenous, Administer over 2 Minutes, As needed, Starting on Thu03/22/24 at 0743, Anesthesia Intra-op Given 03/22/2024 11:48 AM CDT 2 mg Given 03/22/2024 7:43 AM CDT 2 mg nitroglycerin in dextrose 5% 50 mg/250 mL (200 mcg/mL) infusion (premix) intravenous, As needed, Starting on Thu03/22/24 at 0850, Anesthesia Intra-op Given 03/22/2024 9:00 AM CDT 50 mcg Given 03/22/2024 8:58 AM CDT 50 mcg Given 03/22/2024 8:54 AM CDT 50 mcg norepinephrine (LEVOPHED) 8,000 mcg in dextrose 5% 250 mL (32 mcg/mL) infusion intravenous, Continuous PRN, Starting on Thu03/22/24 at 1032, Anesthesia Intra-op Restarted 03/22/2024 11:59 AM CDT 0.01 mcg/kg/min 1.433 mL/hr Restarted 03/22/2024 11:22 AM CDT 0.02 mcg/kg/min 2.865 m L/hr New Bag 03/22/2024 10:32 AM CDT 0.04 mcg/kg/min 5.73 mL /hr norepinephrine (LEVOPHED) injection intravenous, As needed, Starting on Thu03/22/24 at 0907, Anesthesia Intra-op Given 03/22/2024 9:07 AM CDT 8 mcg Given 03/22/2024 9:03 AM CDT 8 mcg potassium chloride injection intravenous, As needed, Starting on Thu03/22/24 at 1033, Anesthesia Intra-op Given 03/22/2024 10:33 AM CDT 13 mEq propofoL (DIPRIVAN) 10 mg/mL IV intravenous, Continuous PRN, Starting on Thu03/22/24 at 1139, Anesthesia Intra-op Rate/Dose Change 03/22/2024 11:59 AM CDT 40 mcg/kg/min 18.336 mL/hr Rate/Dose Change 03/22/2024 11:47 AM CDT 50 mcg/kg/min 22. 92 mL/hr New Bag 03/22/2024 11:39 AM CDT 35 mcg/kg/min 16.044 mL /hr protamine injection intravenous, As needed, Starting on Thu03/22/24 at 1059, Anesthesia Intra-op, Indications: Heparin ToxicityIndications:Heparin Toxicity Given 03/22/2024 10:59 AM CDT 210 mg rocuronium (ZEMURON) injection intravenous, As needed, Starting on Thu03/22/24 at 0804, Anesthesia Intra-op Given 03/22/2024 11:14 AM CDT 20 mg Given 03/22/2024 8:46 AM CDT 50 mg Given 03/22/2024 8:04 AM CDT 50 mg sodium bicarbonate 8.4 % (1 mEq/mL) injection intravenous, Administer over 5 Minutes, As needed, Starting on Thu03/22/24 at 1042, Anesthesia Intra-op Given 03/22/2024 10:42 AM CDT 50 mEq sodium chloride 0.9% infusion intravenous, Continuous PRN, Starting on Thu03/22/24 at 0832, Anesthesia Intra-op New Bag 03/22/2024 8:32 AM CDT tranexamic acid (CYKLOKAPRON) 1,000 mg in sodium chloride 0.9% 100 mL (10 mg/mL) infusion intravenous, Continuous PRN, Starting on Thu03/22/24 at 0849, Anesthesia Intra-op New Bag 03/22/2024 8:49 AM CDT 1 mg/kg/hr 7.64 mL/hr tranexamic acid (CYKLOKAPRON) 1,000 mg/10 mL (100 mg/mL) solution intravenous, As needed, Starting on Thu03/22/24 at 0836, Anesthesia Intra-op Given 03/22/2024 8:36 AM CDT 1,000 mg vancomycin (VANCOCIN) solution intravenous, As needed, Starting on Thu03/22/24 at 0832, Anesthesia Intra-op Given 03/22/2024 8:32 AM CDT 1,250 mg documented in this encounter Care Teams Dual Rate Supervisor Relationship Specialty Start Date End Date Carolyn Davis MD [address] [facility] [address] [place] [id number] PCP - General 10/31/15 documented as of this encounter
--- OUTSIDE RECORDS SUMMARY | 2024-07-19 21:59 | XMS_ITS | Encounter Summary ---
Author Organization [facility] Address [address] [facility] [address] [place] [address] Phone Care Team Providers Care Ornamental Plaster Sticker Name Role Phone Carolyn Davis MD Primary Care Provider Encounter Details Date Type Department Care Team (Late st Contact Info) Description 03/17/2024 2:30 PM CDT Office Visit [facility] [address] [facility] [address] [place] [address] Ernie Baldwin MD [address] [facility] [id number] [place] [address] Aortic valve stenosis, etiology of cardiac valve disease unspecified (Primary Dx) Social History Tobacco Use Types [...] on file 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 Gender Identity Not on file Sexual Orientation Not on file documented as of this encounter Last Filed Vital Signs Vital Sign Reading Time Taken Comments Blood Pressure 117/76 03/17/2024 2:22 PM CDT Pulse 82 03/17/2024 2:22 PM CDT Temperature - - Respiratory Rate 16 03/17/2024 2:22 PM CDT Oxygen Saturation 98% 03/17/2024 2:22 PM CDT Inhaled Oxygen Concentration - - Weight 81.6 kg (180 lb) 03/17/2024 2:22 PM CDT Height 182.9 cm (6') 03/17/2024 2:22 PM CDT Body Mass Index 24.41 03/17/2024 2:22 PM CDT documented in this encounter Progress Notes * Re Hicks, HUY - 03/17/2024 2:30 PM CDT Cardiothoracic Surgery Office Visit Wyatt Madden 1965 -Reason for Visit: F/U TIA-- discuss timing of OR Doctors: PCP Anali Davis Interval History: Patient here today to follow-up status post TIA. Patient states on March 09 he was in a meeting and started noticing left arm and left leg numbness. He dropped something he was holding. He did not have trouble speaking but he states he did have trouble understanding. He states his symptoms resolved in route to the hospital-he was kept for 2 nights and was assessed by Neurologyand Cardiology. His head CT was acutely negative. Patient was started on Coumadin by his Cardiologygroup as he is going to be on Coumadin after surgery as patient would like a mechanical aortic valve. Since then the patient has been back to the ER twice for ???palpitations?? . A Holter monitor was ordered and they turned it in yesterday. I do not yet have the results. Patient denies any worsening shortness breath, syncope or dizziness. He has done fine on the Coumadin. Patient continues to smoke 1 pack per day but has cut it down over the past few days to less than half pack. CT Attending: I agree with the above history and I saw and examined the patient myself on 03/17/24. Mr. Madden is a 58 year-old male with severe aortic stenosis and a history of palpitations previously diagnosed as SVT, with questionable history of atrial fibrillation, who was set up for aorticvalve replacement and had a recent TIA where he had left arm and leg weakness. Further work-up of this TIA with CT-head, CTA of the head and neck vessels, and MRI brain were all negative for significant findings. The patient currently denies lateralizing symptoms. He has been trying to cut back on smoking, but continues to smoke for the time being. HOME MEDICATIONS : aspirin (ASPIR-81) 81 mg tablet buPROPion SR (ZYBAN) 150 mg 12 hr tablet dilTIAZem CD 240 mg 24 hr capsule eszopiclone (LUNESTA) 3 mg tablet metoprolol (LOPRESSOR) 25 mg tablet QUEtiapine XR (SEROquel XR) 50 mg tablet extended release 24 hr rOPINIRole (REQUIP) 4 mg tablet rosuvastatin (CRESTOR) 20 mg tablet No Known Allergies Vital Signs: Vitals BP 117/76 Pulse 82 Resp 16 Ht 182.9 cm (6') Wt 81.6 kg (180 lb) SpO2 98% BMI 24.41 kg/m?? Physical Exam Constitutional: General: He is not in acute distress. Appearance: Normal appearance. He is normal weight. He is not ill-appearing, toxic-appearing or diaphoretic. Cardiovascular: Rate and Rhythm: Normal rate and regular rhythm. Heart sounds: Murmur (systolic) heard. Pulmonary: Effort: No respiratory distress. Breath sounds: Normal breath sounds. Abdominal: General: There is no distension. Palpations: Abdomen is soft. Musculoskeletal: Right lower leg: No edema. Left lower leg: No edema. Skin: General: Skin is warm and dry. Neurological: General: No focal deficit present. Mental Status: He is alert and oriented to person, place, and time. Tests Ordered: None Treatment Plan: Mr. Madden has severe aortic stenosis that would best be treated with aortic valve replacement and we discussed using a mechanical aortic valve and the patient is aware of the risks and benefits of surgery and the need for lifelong anticoagulation with coumadin. We will review the patient's Holter monitor to see if he has atrial fibrillation that may explain his episodes of pa lpitations. We will also review his full neurologic work-up and see if we need to delay his valve replacement surgery. The patient understands and agrees to this above plan. Re Hicks NP 2:18 PM Ernie Baldwin MD FACS Cardiothoracic Surgery [facility] Math And Sciences Department Chair completed with [employer]. Math And Sciences Department Chair variances may occur. Cosigned by Ernie Baldwin MD at 03/20/2024 5:15 PM CDT documented in this encounter Plan of Treatment Not on file documented as of this encounter Visit Diagnoses Diagnosis Aortic valve stenosis, etiology of cardiac valve disease unspecified- Primary documented in this encounter Care Teams Ornamental Plaster Sticker Relationship Specialty Start Date End Date Carolyn Davis MD [address] [facility] [address] [place] [address] PCP - General 10/31/15 documented as of this encounter
--- OUTSIDE RECORDS SUMMARY | 2024-07-19 21:59 | XMS_ITS | Encounter Summary ---
Author Organization [facility] Address [address] [facility] [address] [place] [address] Phone Care Team Providers Care Salt Cutter Name Role Phone Carolyn Davis MD Primary Care Provider Reason for Visit * Reason Onset Date Comments Hospitalization / TIA 03/09/2024 Encounter Details Date Type Department Care Team (Late st Contact Info) Description 03/09/2024 Documentation [facility] Surgery [address] [address] [place] [address] Re Hicks NP [address] [facility] [id number] [place] [address] Hospitalization / TIA Social History Tobacco Use Types Packs/Day Years Used Date Smoking Tobacco: Every Day Cigarettes Smokeless Tobacco: Never Alcohol Use Standard Drinks/Week Comments No 0 (1 standard drink = 0.6 oz pur e alcohol) Personal Safety Answer Date Recorded Have you ever been in or are you currently in a harmful physical or emotional relationship or is someone making you feel afraid or unsafe? 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 Patient has AVR coming up on the . 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 We will have patient come to the office next week on 03/17 to see how heis doing. He is going to be started on Coumadin as he will be on this postoperatively.Likely surgery will be pushed out 4 weeks however will surgeon see patient and go from there. We will call patient today. Re Hicks DEVELOPMENT COORDINATOR documented in this encounter Plan of Treatment Not on file documented as of this encounter Visit Diagnoses Not on filedocumented in this encounter Care Teams Salt Cutter Relationship Specialty Start Date End Date Carolyn Davis MD [address] [address] PCP - General 10/31/15 documented as of this encounter
--- OUTSIDE RECORDS SUMMARY | 2024-07-19 21:59 | XMS_ITS | Encounter Summary ---
Author Organization [facility] Healthcare Address [address] [place] [address] Care Team Providers Care Teacher Adventure Education Name Role Phone Carolyn Davis MD Primary Care Provider Encounter Details Date Type Department Care Team (Latest Contact Info) Description 03/18/2024 10:45 AM CDT Pre-Admission Testing [facility] Pre Anesthesia Testing [address] [place], [place] [id number] Aortic valve stenosis, etiology of cardiac valve disease unspecified Anesthesia Record Procedure Summary Procedure Name Responsible [...] last week and was fixed temporarily. Called agricultural research technician and new monitor was brought in, SpO2 [...] 0921 CPB ON 0922 Vacuum Assist On 09 Cooling Start 0925 Aortic Clamp [place] 0937 Labs Drawn 1004 Rewarming Start 1009 Quick Note Platelet count sent 1011 Labs Drawn 1020 Quick Note Platelet count is 475 440 0919 Aortic Clamp OFF 1037 Labs Drawn 1057 [...] No value filed. 1220 An Stop Meds * Agents No agents on file. * Blood No blood administrations on file. 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 Gender Identity Not on file Sexual Orientation Not on file documented as of this encounter Last Filed Vital Signs Vital Sign Reading Time Taken Comments Blood Pressure 143/73 03/18/2024 11:24 AM CDT Pulse 53 03/18/2024 11:24 AM CDT Temperature 36.9 ??C (98.4 ??F) 03/18/2024 11:24 AM C DT Respiratory Rate - - Oxygen Saturation 98% 03/18/2024 11:24 AM CDT Inhaled Oxygen Concentration - - Weight - - Height - - Body Mass Index - - documented in this encounter Miscellaneous Notes * Perioperative Nursing Note - Kiki Patel RN - 03/18/2024 3:38 PM CDT Call to [facility] Medical Records, no record of cardiac cath there, will fax record request to [phone]. * Perioperative Nursing Note - Kiki Patel RN - 03/18/2024 1:07 PM CDT Abnormal pre-op UA w/reflex, CBC, BMP, and PT routed to PCP, Dr Baldwin, and CTS caddy/caddie supervisor. EPIC IM sent to Dr Baldwin and CTS caddy/caddie supervisor. * Perioperative Nursing Note - Kiki Patel RN - 03/18/2024 10:45 AM CDT Medical Record request faxed to [facility]. * Perioperative Nursing Note - Kiki Patel RN - 03/18/2024 10:45 AM CDT Call from patient re: incorrect dose on Rosuvastatin. Med corrected in chart. * Pre-Procedure Instructions - Kiki Patel RN - 03/18/2024 10:45 AM CDT We are pleased that you and your doctor have chosen [facility] for your surgery. We hope that the following information will help make your visit a pleasant one. Surgery Date: 03/22/2024 and arrive at 06:00 a.m. at the Surgery Center Before your surgery: Notify your doctor of ANY change in your health such as a cold, sore throat, fever, any infection or a change in the problem for which you are having your surgery. Follow any instructions given to you by your doctor or surgeon. Continue Aspirin Continue to hold Warfarin One week before surgery STOP taking: All herbal supplements Aspirin (not ordered by your doctor) Aleve, Advil, Motrin, Ibuprofen, or other similar medications (Tylenol is okay). 24 hours before your surgery: No smoking or alcoholic drinks. Hydrate yourself - drink water Night before your surgery: Do not eat or drink anything after midnight. Follow surgeon's instructions for anti-bacterial shower (use gold DIAL and then the CHG) night before and morning of surgery. Use regular shampoo & conditioner. Start with clean washcloth and DIAL soap, take a full shower and rinse well. Step back from the water, take a second clean washcloth and the CHG and wash from your chin to your toes, front and back. Do not use the CHG on your scalp, face, and genitals. Allow CHG to remain on skin for 2-3 minutes and then rinse well, dry off with a clean towel and put on clean clothing. Fresh linen on your bed, no pets. Day of surgery: Do not swallow any water when you brush your teeth. REPEAT your shower ONLY take these pills with a tiny sip of water. Pre-Surgery Instructions: Medication Instructions buPROPion SR (ZYBAN) metoprolol (LOPRESSOR) QUEtiapine XR (SEROquel XR) Use no make-up, nail frisian, lotions, oils or powders on your skin. Wear comfortable clothes that will not be tight in the area of your surgery. Leave all valuables and jewelry (including all body piercing jewelry) at home. If you use a CPAP machine, please bring it with you to wear after your surgery. Please bring your a photo ID and insurance cards with you. Check in at the Registration Desk. What to bring if you are spending the night with us: Bring toiletry items such as: robe, slippers, toothbrush, toothpaste, brush or comb. Bring contact lens, hearing aids, glass cases and denture container if you use any of these items. The hospital will provide you with a gown. Questions or concerns: If you have any questions or concerns regarding your procedure, contact your surgeon as soon as possible. If you have questions regarding your Pre-Admission Testing, please call Kiki at [phone]. * Addendum Note - Kiki Paetl RN - 03/18/2024 10:45 AM CDTAddended by: KIKI PATEL on: 03/21/2024 07:43 AM Modules accepted: Orders * Addendum Note - Adarsh Fernández NP - 03/18/2024 10:45 AM CDTAddended by: ADARSH FERNÁNDEZ on: 03/21/2024 10:45 AM Modules accepted: Orders documented in this encounter Plan of Treatment Not on file documented as of this encounter Procedures Procedure Name Priority Date/Time Associated Diagnosis Comments EGFR Routine 03/18/2024 12:29 PM CDT Aortic valve stenosis, etiology of cardiac valve disease unspecified APTT Routine 03/18/2024 12:29 PM CDT Aortic valve stenosis, etiology of cardiac valve disease unspecified PROTIME-INR Routine 03/18/2024 12:29 PM CDT Aortic valve stenosis, etiology of cardiac valve disease unspecified CBC WITHOUT DIFFERENTIAL Routine 03/18/2024 12:29 PM CDT Aortic valve stenosis, etiology of cardiac valve disease unspecified BASIC METABOLIC PANEL Routine 03/18/2024 12:29 PM CDT Aortic valve stenosis, etiology of cardiac valve disease unspecified URINALYSIS AND REFLEX TO MICROSCOPIC AND CULTURE Routine 03/18/2024 12:16 PM CDT Aortic valve stenosis, etiology of cardiac valve disease unspecified TYPE AND SCREEN Routine 03/18/2024 12:16 PM CDT Aortic valve stenosis, etiology of cardiac valve disease unspecified ECG 12-LEAD Routine 03/18/2024 11:50 AM CDT Aortic valve stenosis, etiology of cardiac valve disease unspecified documented in this encounter Results * eGFR (03/18/2024 12:29 PM CDT) eGFR >90 >=60 mL/min/1. 73 [...] interpretive data was last reviewed 2021. Blood 03/18/2024 12:2 9 PM CDT 03/18/2024 12:29 PM CDT us Ernie Baldwin MD LAB BLOOD ORDERABLES Final Res ult [facility] [id number] Department [place] [address] * (ABNORMAL) Basic metabolic panel (03/18/2024 12:29 PM CDT) Sodium 140 135 - 145 mmol/L Potassium, pl 3.9 3.3 - 4.9 mmol/L [facility] Chloride 105 97 - 110 mmol/L [facility] CO2 26 22 - 32 mmol/L [facility] Anion gap 9 2 - 15 mmol/L [facility] BUN 6 6 - 25 mg/dL [facility] Creatinine 0.65(L) 0.80 - 1.30 mg/dL [facility] Glucose 103 70 - 199 mg/dL [facility] Comment: Interpretive Data Fasting glucose [...] Calcium 9.1 8.5 - 10.3 mg/dL [facility] Blood 03/18/2024 12:2 9 PM CDT 03/18/2024 12:29 PM CDT Ernie Baldwin MD LAB BLOOD ORDERABLES Final Res ult Performing Organization Address [facility] Co de Phone Number [facility] [address] [place] [address] * (ABNORMAL) Protime-INR (03/18/2024 12:29 PM CDT) PT 16.7(H) 9.7 - 13.0 sec INR 1.53(H) 0.90 - 1.20 [facility] Comment: Interpretive data Oral anticoagulant therapeutic ranges: Venous thromboembolism prophylaxis or treatment: 2.0-3.0 CARDIOLOGY Standard range: 2.0-3.0 High-intensity range: 2.5-3.5 Refer to indication-specific guidelines for appropriate target ranges for prosthetic heart valve replacement. Current interpretive data was last revised on 2019. Blood 03/18/2024 12:2 9 PM CDT 03/18/2024 12:29 PM CDT Ernie Baldwin MD LAB BLOOD ORDERABLES Final Res ult Performing Organization Address [facility] Co de Phone Number ORI [address] [place] [address] * aPTT (03/18/2024 12:29 PM CDT) aPTT 34 28 - 38 sec Comment: Interpretive Data Heparin therapeutic range: 66.0 - 100.0 seconds. Range based on correlation with therapeutic heparin activity range of 0.3 - 0.7 Units/mL. Current interpretive data was last revised on 2023. Blood 03/18/2024 12:2 9 PM CDT 03/18/2024 12:29 PM CDT Ernie Baldwin MD LAB BLOOD ORDERABLES Final Res ult Performing Organization Address [facility]/ZIP Co de Phone Number [facility] [id number] [place] [address] * (ABNORMAL) CBC without differential (03/18/2024 12:29 PM CDT) [facility] WBC 7.2 3.8 - 9.9 K/cumm Hgb 13.6 13.0 - 17.5 g/dL [facility] Hct 39.3 38.9 - 50.3 % [facility] Plt 140(L) 150 - 400 K/cumm [facility] Comment:No clot detected in sample. MPV 10.0 9.1 - 12.3 fL [facility] RBC 4.54 4.30 - 5.80 M/cumm [facility] MCV 86.6 81.3 - 96.4 fL [facility] MCH 30.0 27.1 - 33.3 pg [facility] MCHC 34.6 32.3 - 35.7 g/dL [facility] RDW CV 13.3 11.1 - 14.9 % [facility] RDW SD 42.1 35.7 - 48.1 fL [facility] NRBC abs 0.00 0.00 - 0.01 K/cumm [facility] Blood 03/18/2024 12:2 9 PM CDT 03/18/2024 12:29 PM CDT Ernie Baldwin MD LAB BLOOD ORDERABLES Final Res ult Performing Organization Address [facility]/ZIP Co de Phone Number [facility] [id number] [place], [place] [phone] * Type and screen (03/18/2024 12:16 PM CDT) Beatriz, indirect Negative ABO Rh B Positive [facility] Blood 03/18/2024 12:1 6 PM CDT 03/18/2024 12:47 PM CDT Narrative [facility] - 03/18/2024 1:37 PM CDT Has the patient had Daratumumab or Isatuximab in the past 6 months?->Unknown Ernie Baldwin MD LAB BLOOD BANK TEST ORDERABLES Final Result [facility] [address] Department [place] [address] * (ABNORMAL) Urinalysis reflex to microscopic and culture Urine, clean voided (03/18/2024 12:16 PM CDT) Color, ur Yellow Yellow Clarity, ur Cloudy(A) Clear [facility] Specific gravity, ur 1.012 1.003 - 1.030 [facility] pH, urine 8.0 [facility] Comment: Interpretive Data ? Urine pH is affected by diet, medications, systemic acid-base disturbances, and renal tubular function. ??pH may affect urinary stone formation. ??For example, urine pH below 6.0 may help reduce the tendency for calcium phosphate stones and pH greater than 6.0 may reduce the tendency for uric acid stone formation. Source: [facility] Current Interpretive Data was last revised on 2017 Protein, ur ql Negative Negative [facility] Glucose, ur ql Negative Negative [facility] Ketones, ur Negative Negative [facility] Bilirubin, ur Negative Negative [facility] Blood, ur Negative Negative [facility] Urobilinogen, ur 2.0(A) <2.0 mg/dL [facility] Nitrite, ur Negative Negative [facility] Leukocyte esterase, ur Negative Negative [facility] UA reflex comment Reflex conditions for microscopic UA and culture not met. [facility] Urine, clean voided 03/18/2024 12:16 PM CDT 03/18/2024 12:32 PM CDT Ernie Baldwin MD LAB MICROBIOLOGY - GENERAL ORD ERABLES Final Result Performing Organization Address [facility]/[place] [address] [address] [place] [address] * ECG 12 lead (03/18/2024 11:50 AM CDT) 03/18/2024 11:5 0 AM CDT Narrative [facility] - 03/19/2024 12:01 AM CDT Vent Rate: 49 bpm RR Interval: 1215 msec TN Interval: 185 msec QRS Duration: 106 msec QT Interval: 433 msec QTC Interval: 403 msec P-R-T [place]: 72 - 56 - 60 degrees IMPRESSION: SINUS BRADYCARDIA BORDERLINE ECG Electronically Signed By: Dr. Deedee Dejesus [facility] Ernie Baldwin MD ECG ORDERABLES Final Result Performing Organization Address [facility] de Phone Number [facility] documented in this encounter Visit Diagnoses Diagnosis Aortic valve stenosis, etiology of cardiac valve disease unspecified documented in this encounter Discontinued Medications Medication Sig Discontinue Reason Start Date End Da te rosuvastatin (CRESTOR) 20 mg tablet Take 1 tablet (20 mg total) by mouth daily Dose adjustment 01/11/2024 03/21/2024 documented as of this encounter Historical Medications * This list may reflect changes made after this encounter. rosuvastatin (CRESTOR) 40 mg tablet Take 1 tablet (40 mg total) by mouth nightly naltrexone (DEPADE) 50 mg tablet Take 1 tablet (50 mg total) by mouth nightly 03/30/2024 warfarin (COUMADIN) 5 mg tablet Take 1 tablet (5 mg total) by mouth nightly 03/30/2024 added in this encounter Care Teams Teacher Adventure Education Relationship Specialty Start Date End Date Carolyn Davis MD [address] [facility] [address] [place] [address] PCP - General 10/31/15 documented as of this encounter
--- OUTSIDE RECORDS SUMMARY | 2024-07-19 21:59 | XMS_ITS | Encounter Summary ---
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 Gender Identity Not on file Sexual Orientation Not on file documented as of this encounter Plan of Treatment Not on file documented as of this encounter Procedures Procedure Name Priority Date/Time Associated Diagnosis Comments CARDIOLOGY DOCUMENT SCAN Routine 03/10/2024 1:19 PM CDT CARDIOLOGY DOCUMENT SCAN Routine 03/09/2024 1:14 PM CDT documented in this encounter Results * Cardiology Document Scan (03/10/2024 1:19 PM CDT) Anatomical Region Laterality Modality Other us Case Cage MD [facility] C[facility]IAC SERVICES PROC EDURES Final Result * Cardiology Document Scan (03/09/2024 1:14 PM CDT) Anatomical Region Laterality Modality Other us [facility] Eloy Wooten MD CV CARDIAC SERVICES PRO CEDURES Final Result documented in this encounter Visit Diagnoses Not on filedocumented in this encounter Care Teams Link Trainer Teacher Relationship Specialty Start Date End Date Carolyn Davis MD [address] [place] [address] PCP - General 10/31/15 documented as of this encounter
--- OUTSIDE RECORDS SUMMARY | 2024-07-19 22:00 | XMS_ITS | Encounter Summary ---
Author Organization [facility] Healthcare Address [address] [place] [address] Care Team Providers Care Voice Professor Name Role Phone Carolyn Davis MD Primary Care Provider Encounter Details Date Type Department Care Team (Late st Contact Info) Description 01/29/2024 Telephone [facility] Medical Group Cardiology [address] [place] [address] Tom De Jesus MD [facility] [place] [address] Social History Tobacco Use Types Packs/Day Years Used Date Smoking Tobacco: Every Day Cigarettes Smokeless Tobacco: Never Alcohol Use Standard Drinks/Week Comments No 0 (1 standard drink = 0.6 oz pur e alcohol) Personal Safety Answer Date Recorded Getting School Help Needed Not on file 09/27 Sex and Gender Information Value Date Recorded Sex Assigned at Not on file 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 documented in this encounter Plan of Treatment Not on file documented as of this encounter Visit Diagnoses Not on filedocumented in this encounter Care Teams Voice Professor Relationship Specialty Start Date End Date Carolyn Davis MD [address] [facility] [address] [place] [phone] PCP - General 10/31/15 documented as of this encounter
--- OUTSIDE RECORDS SUMMARY | 2024-07-19 22:00 | XMS_ITS | Encounter Summary ---
Author Organization [facility] Address [address] [place] [address] Care Team Providers Care Director Of Institutional Sales Name Role Phone Carolyn Davis MD Primary Care Provider Encounter Details Date Type Department Care Team (Late st Contact Info) Description 09/13/2020 Telephone [facility] Cardiology [address] [place] [address] Tom De Jesus MD [address] [place] [id number] Social History Tobacco Use Types Packs/Day Years Used Date Smoking Tobacco: Every Day Cigarettes Smokeless Tobacco: Never Alcohol Use Standard Drinks/Week Comments No 0 (1 standard drink = 0.6 oz pur e alcohol) Sex and Gender Information Value Date Recorded Sex Assigned at Not on file 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 Pharmacy: [facility], Please advise? Thank you MOTIVE QUALITY ENGINEER * Telephone Encounter - Rosanna Ortiz - 09/13/2020 2:55 PM CST Pt called to discuss getting a new prescription for Chantix. MOTIVE QUALITY ENGINEER documented in this encounter Plan of Treatment Not on file documented as of this encounter Visit Diagnoses Not on filedocumented in this encounter Care Teams Director Of Institutional Sales Relationship Specialty Start Date End Date Carolyn Davis MD [address] [facility] [address] [place] [phone] PCP - General 10/31/15 documented as of this encounter
--- OUTSIDE RECORDS SUMMARY | 2024-07-19 22:00 | XMS_ITS | Encounter Summary ---
Author Organization [facility] Address [address] [place] [address] Care Team Providers Care Physical Security Manager Name Role Phone Carolyn Davis MD Primary Care Provider Reason for Visit * Diagnostic Imaging (Routine) - Closed Specialty Diagnoses / Procedures Referred By Kary mata Referred To Contact Cardiology Imaging Diagnoses Chest pain on exertion Procedures NM MPI SPECT (Rest and/or Stress) Multiple Studies Minerva Dempsey NP Phone: tel: fax: [facility] Medical [facility] Cardiology [address] [place] [phone] Phone: tel: fax: Referral ID Status Reason Start Date Expiration Date Visits Re quested Visits Authorized [id number] Closed 01/24/2019 03/10/2019 5 5 Encounter Details Date Type Department Care Team (Latest Contact Info) Description 01/27/2019 9:15 AM CDT Ancillary Procedure [facility] Medical [facility] Cardiology [address] [place] [phone] Chest pain on exertion Social History Tobacco Use Types Packs/Day Years Used Date Smoking Tobacco: Every Day Cigarettes Smokeless Tobacco: Never Alcohol Use Standard Drinks/Week Comments No 0 (1 standard drink = 0.6 oz pur e alcohol) Sex and Gender Information Value Date Recorded Sex Assigned at Not on file 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 Gender Identity Not on file Sexual Orientation Not on file documented as of this encounter Plan of Treatment Not on file documented as of this encounter Procedures Procedure Name Priority Date/Time Associated Diagnosis Comments NM MPI SPECT (REST AND/OR STRESS) MULTIPLE STUDIES Schedule Routine, Read Routine (OP Routine) 01/27/2019 11:03 AM CDT Chest pain on exertion documented in this encounter Results * NM MPI SPECT (Rest and/or Stress) Multiple Studies (01/27/2019 11:03 AM CDT) Anatomical Region Laterality Modality Body N/A Nuclear Medicine 01/27/2019 10:1 6 AM CDT Narrative 01/27/2019 5:23 PM CDT [facility] [address] [place] [address] [address] [address] [address] [facility] [address] [place] [address], [place] [address] P:[phone] P:[phone] MPI Imaging Report Patient Name: STEPHAN NUNEZ A : 1965 Study Date: 01/27/2019 10:16:12 AM Gender: M Tech: SIRISHA Choe Location: [facility] Ref.Provider: MINERVA DEMPSEY Height(Cm): 182.9 BSA: Weight(Kg): 111.9 BMI: 33.45Order Provider: MINERVA DEMPSEY Physician: Referring Physician: Minerva Dempsey NP. HCG Physician: Tom De Jesus M.D., F.A.C.C. Interpreting Physician: Son Simmons M.D. Stress Supervision: Case Cage M.D.,F.A.C.C. Procedures: Exercise SPECT Report: Myocardial perfusion imaging with Tc99m Sestamibi SPECT at rest and stress post exercise using the Ayden protocol. Indications: Chest Pain, Hypertension, Diabetes, Family Hx CAD, and Smoker. Findings: Procedure: One day rest/stress protocol was used. Tc99m Sestamibi injected IV at rest was 12.8 millicuries. 37.7 millicuries of Tc99m Sestamibi injected IV at peak stress. Exercise stress related symptoms include shortness of breath. Symptoms were resolved with rest. Baseline heart rate was 65 BPM. Peak heart rate was 150 BPM. Max projected heart rate was 169. Percent predicted max heart rate achieved was 89 %. Exercise Time 10:03 min. Baseline blood pressure was 136/82 mmHg. Peak blood pressure 190/60 mmHg. Termination: Fatigue. Dyspnea. Leg fatigue. Resting ECG: Normal sinus rhythm, normal ECG. Post ECG: No diagnostic ST changes. Perfusion Findings: Normal perfusion imaging. No definite fixed or reversible defects. Technical quality of study is excellent. Prone imaging was not performed. Left ventricle cavity size at rest is normal. Left ventricle cavity size with stress is unchanged. A TID of 0.82 was automatically calculated. LV Function: Global left ventricular function is normal. Left Ventricular Ejection Fraction is 68 %. Conclusions: Myocardial perfusion imaging is normal. Normal sinus rhythm, normal ECG. No diagnostic ST changes. Global left ventricular function is normal. Left Ventricular Ejection Fraction is 68 %. Electronically Signed By: Rommel Simmons MD 2019-01-27 17:11:38 CDT Electronically Signed By: aCse Cage MD, [facility] 2019-01-27 17:23:58 CDT Procedure Note Case Cage MD - 01/27/2019 [facility] [address] [place] [address] [address] [address] [address] [facility] [address], [place] [address] P:[phone] P:[phone] MPI Imaging Report Patient Name: STEPHAN NUNEZ APatient ID: [id number] : [id number] Date: 01/27/2019 10:16:12 AM Gender: MAccession #: [id number] Tech: MERRICK ChoeKYLocation: [facility] Ref.Provider: Leela DEMPSEYight(Cm): 182.9 BSA: Weight(Kg): 111.9 BMI: 33.45Order Provider: MINERVA DEMPSEY Physician: Referring Physician: Minerva Dempsey NP. HCG Physician: Tom De Jesus M.D., F.A.C.C. Interpreting Physician: Son Simmons M.D. Stress Supervision: Case Cage M.D.,F.Giuseppe. Procedures: Exercise SPECT Report: Myocardial perfusion imaging with Tc99m Sestamibi SPECT at rest and stresspost exercise using the Ayden protocol. Indications: Chest Pain, Hypertension, Diabetes, Family Hx CAD, and Smoker. Findings: Procedure: One day rest/stress protocol was used. Tc99m Sestamibi injected IV at restwas 12.8 millicuries. 37.7 millicuries of Tc99m Sestamibi injected IV at peakstress. Exercise stress related symptoms include shortness of breath. Symptoms wereresolved with rest. Baseline heart rate was 65 BPM. Peak heart rate was 150 BPM. Max projectedheart rate was 169. Percent predicted max heart rate achieved was 89 %. Exercise Time10:03 min. Baseline blood pressure was 136/82 mmHg. Peak blood pressure 190/60mmHg. Termination: Fatigue. Dyspnea. Leg fatigue. Resting ECG: Normal sinus rhythm, normal ECG. Post ECG: No diagnostic ST changes. Perfusion Findings: Normal perfusion imaging. No definite fixed or reversible defects.Technical quality of study is excellent. Prone imaging was not performed. Left ventricle cavitysize at rest is normal. Left ventricle cavity size with stress is unchanged. A TID of0.82 was automatically calculated. LV Function: Global left ventricular function is normal. Left Ventricular EjectionFraction is 68 %. Conclusions: Myocardial perfusion imaging is normal. Normal sinus rhythm, normal ECG. No diagnostic ST changes. Global left ventricular function is normal. Left Ventricular EjectionFraction is 68 %. Electronically Signed By: Rommel Simmons MD 2019-01-27 17:11:38 CDT Electronically Signed By: Case Cage MD, [facility] 2019-01-27 17:23:58 CDT Minerva Dempsey [facility] PROCEDURES Final Result documented in this encounter Visit Diagnoses Diagnosis Chest pain on exertion Unspecified chest pain documented in this encounter Administered Medications Inactive Administered Medications - up to 3 most recent administrations Medication Order MAR Action Action Date Dose Rate Site tc-99m sestamibi unit dose injection 12.8 millicurie 12.8 millicurie, intravenous, Once in imaging, radiopharmaceutical, Starting on Khushbu 01/27/19 at 0924, For 1 dose, Indications: Diagnostic RadiographyIndications:Chaya gnostic Radiography Given 01/27/2019 9:25 AM CDT 12.8 millicuries tc-99m sestamibi unit dose injection 37.7 millicurie 37.7 millicurie, intravenous, Once in imaging, radiopharmaceutical, Starting on Khushbu 01/27/19 at 1107, For 1 dose, Indications: Diagnostic RadiographyIndications:Chaya gnostic Radiography Given 01/27/2019 11:07 AM CDT 37.7 millicuries documented in this encounter Care Teams Physical Security Manager Relationship Specialty Start Date End Date Carolyn Davis MD [address] [address] PCP - General 10/31/15 documented as of this encounter
--- OUTSIDE RECORDS SUMMARY | 2024-07-19 22:00 | XMS_ITS | Encounter Summary ---
Author Organization [facility] Address [address] [place] [address] Care Team Providers Care Reinsurance Claim Analyst Name Role Phone Carolyn Davis MD Primary Care Provider Encounter Details Date Type Department Care Team (Late st Contact Info) Description 04/03/2023 Telephone [facility] Cardiology [address] [place] [phone] Jacqueline Uriostegui Social History Tobacco Use Types Packs/Day Years Used Date Smoking Tobacco: Every Day Cigarettes Smokeless Tobacco: Never Alcohol Use Standard Drinks/Week Comments No 0 (1 standard drink = 0.6 oz pur e alcohol) Sex and Gender Information Value Date Recorded Sex Assigned at Not on file 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 Re-faxed cardiac clearance. * Telephone Encounter - Jacqueline Uriostegui - 04/03/2023 12:[address] Talbot's office called stating they received back the signed clearance but it was not filled out. Asking for Dr. De Jesus to please complete clearance form. documented in this encounter Plan of Treatment Not on file documented as of this encounter Visit Diagnoses Not on filedocumented in this encounter Care Teams Reinsurance Claim Analyst Relationship Specialty Start Date End Date Carolyn aDvis MD [address] [facility] [address] [place] [address] PCP - General 10/31/15 documented as of this encounter
--- OUTSIDE RECORDS SUMMARY | 2024-07-19 22:00 | XMS_ITS | Encounter Summary ---
Author Organization [facility] Address [address] [place] [address] Care Team Providers Care Flight Mechanic Name Role Phone Carolyn Davis MD Primary Care Provider Reason for Visit * Cardiology (Routine) - Closed Specialty Diagnoses / Procedures Referred By Kary mata Referred To Contact Diagnoses Nonrheumatic aortic valve stenosis Procedures Transthoracic Echo (TTE) Complete W Doppler/CF Rocco Fisher NP [address] [address] Phone: tel: fax: [facility] Referral ID Status Reason Start Date Expiration Date Visits Re quested Visits Authorized [id number] Closed 01/06/2024 02/04/2025 1 1 Encounter Details Date Type Department Care Team (Latest Contact Info) Description 01/21/2024 3:00 PM CDT Ancillary Procedure [facility] Cardiology [address] [place] [phone] Nonrheumatic aortic valve stenosis Social History Tobacco Use Types Packs/Day Years [...] on file 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 Gender Identity Not on file Sexual Orientation Not on file documented as of this encounter Last Filed Vital Signs Vital Sign Reading Time Taken Comments Blood Pressure 119/71 01/21/2024 4:07 PM CDT Pulse - - Temperature - - Respiratory Rate - - Oxygen Saturation - - Inhaled Oxygen Concentration - - Weight - - Height - - Body Mass Index - - documented in this encounter Plan of Treatment Not on file documented as of this encounter Procedures Procedure Name Priority Date/Time Associated Diagnosis Comments TRANSTHORACIC ECHO (TTE) COMPLETE W DOPPLER/CF WO CONTRAST Routine 01/21/2024 4:07 PM CDT Nonrheumatic aortic valve stenosis documented in this encounter Results * TRANSTHORACIC ECHO (TTE) COMPLETE W DOPPLER/CF WO CONTRAST (01/21/2024 4:07 PM CDT) Anatomical Region Laterality Modality Ultrasound 01/21/2024 3:13 PM CDT Narrative 01/21/2024 4:54 PM CDT [facility] Cardiology [address] [facility] [address] [facility] [address], [place] [address] [address] [facility] [address], [place] [address] P:[phone] P:[phone] Echocardiographic Report Patient Name: WYATT NUNEZ A : 1965 Study Date: 01/21/2024 3:13:47 PM Gender: M Tech: Location: [facility] Provider: ROCCO FISHER ?Height(Cm): 180 BSA: 2.03 Weight(Kg): 82.1 Heart Rate: 63 BP: 119 / 71 Quality: Good Order Provider: ROCCO FISHER PROCEDURES: Echocardiographic Report: Transthoracic echocardiogram with complete 2D, M-Mode, and color Doppler examination. With Strain Analysis. INDICATIONS: Aortic Stenosis. Measurements: 2D/M Mode ?Doppler Measurement ?Value ?Normal Range ?Measurement ?Value ?Normal Range LVIDd 2D ? 3.80 ? [ 4.20 - 5.80 ] cm ?BEVERLY Vmax ? 0.96 ? [ 2.00 - 4.00 ] cm2 LVIDs 2D ? 3.05 ? [ 2.50 - 4.00 ] cm ?AV Mean PG ? 47 ? mmHg LVPWd 2D ? 1.26 ? [ 0.60 - 1.00 ] cm ?AV Peak Tesfaye ?4.27 ? [ 1.00 - 1.70 ] m/s IVSd 2D ?1.34 ? [ 0.60 - 1.00 ] cm ?AV Peak PG ? 73 ? mmHg LA Volume Index ?32 ? [ 16 - 34 ] cc/m2 ? AV VTI ? 110.76 ? cm LVOT Diam ?2.03 ?[ 1.70 - 2.10 ] cm LVOT Peak Tesfaye ?1.02 ?[ 0.70 - 1.10 ] m/s LVOT VTI ? 23.88 ? cm MV E Peak Tesfaye ?1.24 ?[ 0.60 - 1.30 ] m/s MV A Peak Tesfaye ?1.14 ?[ 1.00 - 1.20 ] m/s MV Decel Time ?278 ? [ 104 - 258 ] msec Lateral E` ? 0.11 ?[ 0.10 - 0.15 ] m/s E` ? 0.10 ?m/s E/E` ? 12 Measurement ?Value ?Normal Range ?Measurement ?Value ?Normal Range 2D/M Mode ?Doppler - FINDINGS: Interpretation Site: Exam was interpreted at [facility]. Left Ventricle: Normal left ventricular size. Mild concentric left ventricular hypertrophy. Normal global left ventricular systolic function. Impaired diastolic relaxation Grade I. Ejection fraction is visually estimated at 60 %. Ejection fraction is measured at 63 %. Global Longitudinal Strain is -19 %. Right Ventricle: Normal right ventricular size. Left Atrium: There is mild enlargement of left atrium. Right Atrium: The right atrium is normal in size. Atrial Septum: Normal atrial septum. Mitral Valve: Normal appearance of the mitral valve. Aortic Valve: Critical aortic stenosis. Mean gradient of 47.0 mmHg. Valve area of 0.8 cm2. Aortic cusps appear severely sclerotic. No aortic regurgitation. Tricuspid Valve: Normal appearance of the tricuspid valve. Pulmonic Valve: Normal appearance of the pulmonic valve. Pericardium: Normal pericardium with no significant pericardial effusion. Aorta: Normal aortic root. IVC: Normal size and normal respiratory collapse consistent with normal right atrial pressure (<5 mmHg). Pulmonary Artery: Normal pulmonary artery size. CONCLUSIONS: Normal left ventricular size. Mild concentric left ventricular hypertrophy. Normal global left ventricular systolic function. Impaired diastolic relaxation Grade I. Ejection fraction is visually estimated at 60 %. Ejection fraction is measured at 63 %. Global Longitudinal Strain is -19 %. There is mild enlargement of left atrium. Critical aortic stenosis. Mean gradient of 47.0 mmHg. Valve area of 0.8 cm2. Aortic cusps appear severely sclerotic. No aortic regurgitation. Electronically Signed By: Case Cage MD, [facility] 2024-01-21 16:54:09 CDT Procedure Note Case Cage MD - 01/21/2024 [facility] Cardiology [address] [facility] [address] [address] [address] [facility] [address] [place] [address] P:[phone] P:[phone] Echocardiographic Report Patient Name: WYATT NUNEZ A : 1965 Study Date: 01/21/2024 3:13:47 PM Gender: M Tech: Location: [facility] Provider: ROCCO FISHER Height(Cm): 180 BSA: 2.03 Weight(Kg): 82.1 Heart Rate: 63 BP: 119 / 71 Quality: Good Order Provider: ROCCO FISHER PROCEDURES: Echocardiographic Report: Transthoracic echocardiogram with complete 2D, M-Mode, and color Dopplerexamination. With Strain Analysis. INDICATIONS: Aortic Stenosis. Measurements: 2D/M ModeDoppler Measurement Value Normal Range MeasurementValue Normal Range LVIDd 2D 3.80 [ 4.20 - 5.80 ] cm BEVERLY Vmax0.96 [ 2.00 - 4.00 ] cm2 LVIDs 2D 3.05 [ 2.50 - 4.00 ] cm AV Mean PG47 mmHg LVPWd 2D 1.26 [ 0.60 - 1.00 ] cm AV Peak Vel4.27 [ 1.00 - 1.70 ] m/s IVSd 2D 1.34 [ 0.60 - 1.00 ] cm AV Peak PG73 mmHg LA Volume Index 32 [ 16 - 34 ] cc/m2 AV THN386.76 cm LVOT Diam 2.03 [ 1.70 - 2.10 ] cm LVOT Peak Tesfaye 1.02 [ 0.70 - 1.10 ] m/s LVOT VTI 23.88 cm MV E Peak Tesfaye 1.24 [ 0.60 - 1.30 ] m/s MV A Peak Tesfaye 1.14 [ 1.00 - 1.20 ] m/s MV Decel Time 278 [ 104 - 258 ] msec Lateral E` 0.11 [ 0.10 - 0.15 ] m/s E` 0.10 m/s E/E` 12 Measurement Value Normal Range MeasurementValue Normal Range 2D/M ModeDoppler - FINDINGS: Interpretation Site: Exam was interpreted at [facility]. Left Ventricle: Normal left ventricular size. Mild concentric left ventricularhypertrophy. Normal global left ventricular systolic function. Impaired diastolic relaxation Grade I.Ejection fraction is visually estimated at 60 %. Ejection fraction is measured at63 %. Global Longitudinal Strain is -19 %. Right Ventricle: Normal right ventricular size. Left Atrium: There is mild enlargement of left atrium. Right Atrium: The right atrium is normal in size. Atrial Septum: Normal atrial septum. Mitral Valve: Normal appearance of the mitral valve. Aortic Valve: Critical aortic stenosis. Mean gradient of 47.0 mmHg. Valve area of 0.8cm2. Aortic cusps appear severely sclerotic. No aortic regurgitation. Tricuspid Valve: Normal appearance of the tricuspid valve. Pulmonic Valve: Normal appearance of the pulmonic valve. Pericardium: Normal pericardium with no significant pericardial effusion. Aorta: Normal aortic root. IVC: Normal size and normal respiratory collapse consistent with normal rightatrial pressure (<5 mmHg). Pulmonary Artery: Normal pulmonary artery size. CONCLUSIONS: Normal left ventricular size. Mild concentric left ventricularhypertrophy. Normal global left ventricular systolic function. Impaired diastolic relaxation Grade I.Ejection fraction is visually estimated at 60 %. Ejection fraction is measured at63 %. Global Longitudinal Strain is -19 %. There is mild enlargement of left atrium. Critical aortic stenosis. Mean gradient of 47.0 mmHg. Valve area of 0.8cm2. Aortic cusps appear severely sclerotic. No aortic regurgitation. Electronically Signed By: Case Cage MD, [facility] 2024-01-21 16:54:09 CDT Rocco Fisher NP CV ECHO PROCEDURES Final Res ult documented in this encounter Visit Diagnoses Diagnosis Nonrheumatic aortic valve stenosis documented in this encounter Care Teams Flight Mechanic Relationship Specialty Start Date End Date Carolyn Davis MD [address] [facility] [address] [place] [address] PCP - General 10/31/15 documented as of this encounter
--- OUTSIDE RECORDS SUMMARY | 2024-07-19 22:00 | XMS_ITS | Encounter Summary ---
Author Organization [facility] Address [address] [place] [address] Care Team Providers Care Hostel Manager Name Role Phone Carolyn Davis MD Primary Care Provider Reason for Referral * Cardiology (Routine) - Closed Specialty Diagnoses / Procedures Referred By Contac t Referred To Contact Diagnoses Moderate aortic stenosis Procedures Transthoracic Echo (TTE) Complete W Doppler/CF Magdi Bal MD [address] [facility] [address] [place] [address] Phone: tel: fax: [facility] Referral ID Status Reason Start Date Expiration Date Visits Re quested Visits Authorized [id number] Closed 11/26/2022 12/26/2023 1 1 Reason for Visit * Reason Comments Follow-up 3 month follow up. Encounter Details Date Type Department Care Team (Latest Contact Info) Description 11/26/2022 2:15 PM CDT Office Visit [facility] [address] [place] [address] Magdi Bal MD [address] [place] [address] Moderate aortic stenosis (Primary Dx); PSVT (paroxysmal supraventricular tachycardia) (CMS/HCC) (HCC); Essential hypertension; History of alcohol abuse; History of subdural hematoma; Mixed dyslipidemia Social History Tobacco Use Types Packs/Day Years Used Date Smoking Tobacco: Every Day Cigarettes Smokeless Tobacco: Never Tobacco Cessation:Ready to Q uit: Not Asked; Counseling Given: Not Answered Alcohol Use Standard Drinks/Week Comments No 0 (1 standard drink = 0.6 oz pur e alcohol) Sex and Gender Information Value Date Recorded Sex Assigned at Not on file 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 Gender Identity Not on file Sexual Orientation Not on file documented as of this encounter Last Filed Vital Signs Vital Sign Reading Time Taken Comments Blood Pressure 134/80 11/26/2022 2:13 PM CDT Pulse 68 11/26/2022 2:13 PM CDT Temperature - - Respiratory Rate - - Oxygen Saturation 97% 11/26/2022 2:13 PM CDT Inhaled Oxygen Concentration - - Weight 103.9 kg (229 lb) 11/26/2022 2:13 PM CDT Height 180.3 cm (5' 11 ) 11/26/2022 2:13 PM CDT Body Mass Index 31.94 11/26/2022 2:13 PM CDT documented in this encounter Progress Notes * Magdi Bal MD - 11/26/2022 2:15 PM CDT [facility] FOLLOW UP 11/26/2022 Chief Complaint Patient presents with Follow-up 3 month follow up. 57 y.o. male with , PSVT, anxiety/panic attacks. Patient was seen in [facility] on 06/22/15 when he presented with complaints [...] last office visit, patient was admitted to [facility] on 02/16/2022 after he apparently had a seizure after alcohol abuse. He states that he had a fall at that time. His CT scan of the head was unremarkable, however, MRI reportedly showed thin subdural hematoma in the left parieto-occipital area. Patient states that he has quit drinking alcohol. Yesterday, patient had an ep isode of palpitations and went to the emergency [...] Patient states that he is quit alcohol. REVIEW OF SYSTEMS General ROS: negative for - Fever, chills, fatigue Psychological ROS: Situational anxiety Ophthalmic ROS: negative for - loss of vision ENT ROS: negative for - epistaxis, headaches Respiratory ROS: negative for - cough Cardiovascular ROS: negative for - chest pain; positive for dyspnea on exertion and palpitations Gastrointestinal ROS: negative for - abdominal pain [...] Current Outpatient Medications Medication Sig Dispense Refill aspirin (ASPIR-81) 81 mg tablet take 1 tablet by oral route every day 0 0 diltiazem (TIAZAC) 300 mg 24 hr capsule 1 capsule (300 mg total) daily 90 capsule 3 eszopiclone (LUNESTA) 2 mg tablet 3 mg nightly magnesium oxide (MAG-OX) 250 mg (150.8 mg elemental) tablet Take 1 tablet (250 mg total) by mouth daily metoprolol (LOPRESSOR) 25 mg tablet Take 1 tablet (25 mg total) by mouth 2 (two) times a day multivitamin with minerals tablet Take 1 tablet by mouth daily naltrexone (DEPADE) 50 mg tablet Take 1 tablet (50 mg total) by mouth daily QUEtiapine XR (SEROquel XR) 50 mg tablet extended release 24 hr Take 1 tablet (50 mg total) by mouth 2 (two) times a day rOPINIRole (REQUIP) 1 mg tablet Take 2 tablets (2 mg total) by mouth daily buPROPion SR (ZYBAN) 150 mg 12 hr tablet Take 1 tablet (150 mg total) by mouth 2 (two) times a day 60 tablet 11 No current facility-administered medications for this visit. LABS AND OTHER DIAGNOSTIC TESTS No results found for: WBC, HGB, HCT, MCV, PLT No lab exists for component: LABALBU No results found for: WBC, HGB, HCT, MCV, PLT No results found for: CHOL No results found for: HDL No results found for: LDL] No results found for: TRIG ECHO/MUGA: Echo [...] gradients have increased. Normal sinus rhythm. 08/16/2021-Dr. Simomns Lipids-total cholesterol 297, HDL?, triglycerides? 650. 08/28/2021 [...] duplex-less than 50% stenosis bilateral ICA. 02/17/2022, [facility] Echo-normal LV size, EF 60-65%, grade 1 diastolic dysfunction, aortic stenosis, valve area 1.4 cm2,V max 2.62 m/sec, mean gradient 17 mmHg. 02/17/2022; Dr. Cage[facility] Lipids-total cholesterol 227, HDL 34, triglycerides 258, [...] BPM without any arrhythmias. Dr Wooten, 08/20/2022-09/18/2022 PHYSICAL EXAM Vitals BP 134/80 (BP Location: Left arm, Patient Position: Sitting) Pulse 68 Ht 180.3 cm (5' 11 ) Wt 103.9 kg (229 lb) SpO2 97% BMI 31.94 kg/m?? General appearance - alert, no distress, [...] auscultation Heart - normal rate, regular rhythm, distant heart sounds, systolic murmur at base Abdomen - soft, nontender, nondistended Neurological - alert, oriented, normal speech, no gross motor deficits Musculoskeletal - no major deformity, no amputations Extremities - no pedal edema, no clubbing or cyanosis Skin - no rashes (on the exposed areas), no cyanosis ASSESSMENT Diagnoses and all orders for this visit: Moderate aortic stenosis (Primary) - Transthoracic Echo (TTE) Complete W Doppler/CF; Future PSVT (paroxysmal supraventricular tachycardia) (CMS/HCC) (HCC) Essential hypertension History of alcohol abuse History of subdural hematoma Mixed dyslipidemia PLAN/RECOMMENDATIONS 57 y.o. male with PSVT, moderate aortic stenosis (BEVERLY 1.1 cm2 by planimetry from 09/13/2021 JAVIER, trileaflet valve on JAVIER), hypertension, anxiety/panic attacks; tobacco abuse. -patient has history of PSVT, and occasional palpitations. No significant arrhythmias on 30 day event monitor. Continue long-acting diltiazem for now. If patient has recurrent SVT, will refer to EP. -previous hospitalization with seizures and fall in the setting of alcohol abuse. Found to have small subdural hematoma. Patient states that he has quit alcohol. He was advised for continue abstinence from alcohol. - patient has moderate aortic stenosis. He will need continued clinical and echocardiographic surveillance for progression of aortic stenosis. He will eventually need aortic valve replacement. Echocardiogram with Doppler in January 2023. - blood pressure is well controlled with current antihypertensives. -smoking cessation counseling was again done. - diet and lifestyle modification for dyslipidemia. -follow-up in 10-12 months or sooner if needed based on clinical course and echo findings. Magdi Bal MD documented in this encounter Plan of Treatment Not on file documented as of this encounter Results * TRANSTHORACIC ECHO (TTE) COMPLETE W DOPPLER/CF WO CONTRAST (02/18/2023 9:57 AM CDT) Anatomical Region Laterality Modality Ultrasound 02/18/2023 9:31 AM CDT Narrative 02/18/2023 4:03 PM CDT [facility] Card[facility] [address], [place] [address] [address], [place] [address] P:[phone] P:[phone] Echocardiographic Report Patient Name: STEPHAN NUNEZ A : 1965 Study Date: 02/18/2023 9:31:09 AM Gender: M Tech: Location: [place] Ref.Provider: MAGDI BAL Height(Cm): 180 BSA: 2.25 Weight(Kg): 101.2 Heart Rate: 65 BP: 127 / 76 Quality: Good Order Provider: MAGDI BAL Procedures: Echocardiographic Report: Transthoracic echocardiogram with complete 2D, M-Mode, and color Doppler examination. With Strain Analysis. Indications: Aortic Stenosis. Measurements: 2D/M Mode ? Doppler ? Measurement ?Value ?Normal Range ?Measurement ?Value ?Normal Range ? LVIDd 2D ? 4.41 ? [ 3.90 - 5.30 ] cm ?BEVERLY Vmax ? 1.43 ? [ 2.00 - 4.00 ] cm2 ? LVIDs 2D ? 3.07 ? [ 2.30 - 3.90 ] cm ?AV Mean PG ? 20 ? mmHg ? LVPWd 2D ? 1.22 ? [ 0.60 - 1.00 ] cm ?AV Peak Tesfaye ?3.01 ? m/s ? IVSd 2D ?1.19 ? [ 0.60 - 0.90 ] cm ?AV Peak PG ? 36 ? mmHg ? LA Volume Index ?17 ? [ 16 - 28 ] cc/m2 ? AV VTI ? 67.54 ?cm ?LVOT Diam ?2.04 ? [ 1.70 - 2.10 ] cm ?LVOT Peak Tesfaye ?1.06 ? [ 0.70 - 1.10 ] m/s ?LVOT VTI ? 24.12 ?cm ?MV E Peak Tesfaye ?0.96 ? [ 0.60 - 1.30 ] m/s ?MV A Peak Tesfaye ?0.84 ? [ 0.40 - 0.80 ] m/s ?MV Decel Time ?284 ?[ 150 - 200 ] msec ?Lateral E` ? 0.13 ? cm/sec ?E` ? 0.08 ? cm/sec ?E/E` ? 8 ? - Findings: Interpretation Site: Exam was interpreted at [facility]. Left Ventricle: Normal left ventricular size. Mild concentric left ventricular hypertrophy. Normal global left ventricular systolic function. Normal left ventricular diastolic function. Ejection fraction is measured at 65 %. Global Longitudinal Strain is -17 %. Right Ventricle: Normal right ventricular size. Normal right ventricular systolic function. Left Atrium: The left atrium is normal in size. Right Atrium: The right atrium is normal in size. Atrial Septum: Normal atrial septum. Mitral Valve: Mitral valve leaflets appear mildly thickened. No mitral valve regurgitation is seen. Aortic Valve: Moderate aortic stenosis. Peak Velocity of 3.00 m/s. Mean gradient of 20.0 mmHg. Valve area of 1.2 cm2. Tricuspid Valve: Normal appearance of the tricuspid valve. Right ventricular systolic pressure could not be estimated due to inadequate visualization of the tricuspid regurgitation jet. Pulmonic Valve: Pulmonic valve not well visualized. Pericardium: Normal pericardium with no significant pericardial effusion. Aorta: Aortic root not well visualized. IVC: Normal size and normal respiratory collapse consistent with normal right atrial pressure (<5 mmHg). Conclusions: Normal left ventricular size. Mild left ventricular hypertrophy. Normal LV systolic and ventricular diastolic function. Ejection fraction is measured at 65 %. Global Longitudinal Strain is -17 %. Normal RV size and systolic function. Mitral valve leaflets appear mildly thickened. No no significant MR. Sclerotic, thickened aortic valve with restricted leaflet mobility (trileaflet from previous JAVIER). Moderate aortic stenosis. Peak Velocity 3.00 m/s. Mean gradient 20 mmHg. Valve area 1.2 cm2. Right ventricular systolic pressure could not be estimated due to inadequate visualization of the tricuspid regurgitation jet. Electronically Signed By: Magdi Bal MD, [facility] 2023-02-18 16:03:46 CDT CC: CC: Procedure Note Magdi Bal MD - 02/18/2023 [facility] Cardiology [address], [place] [address] [address], [place] [address] P:[phone] P:[phone] Echocardiographic Report Patient Name: STEPHAN NUNEZ APatient ID: [id number] : [id number] Date: 02/18/2023 9:31:09 AM Gender: MAccession #: [id number] Tech: Location: [place] Ref.Provider: MAGDI BALHeight(Cm): 180 BSA: 2.25Weight(Kg): 101.2 Heart Rate: 65BP: 127 / 76 Quality: GoodOrder Provider: MAGDI BAL Procedures: Echocardiographic Report: Transthoracic echocardiogram with complete 2D, M-Mode, and color Dopplerexamination. With Strain Analysis. Indications: Aortic Stenosis. Measurements: 2D/M Mode Doppler Measurement Value Normal Range Measurement ValueNormal Range LVIDd 2D 4.41 [ 3.90 - 5.30 ] cm BEVERLY Vmax 1.43[ 2.00 - 4.00 ] cm2 LVIDs 2D 3.07 [ 2.30 - 3.90 ] cm AV Mean PG 20mmHg LVPWd 2D 1.22 [ 0.60 - 1.00 ] cm AV Peak Tesfaye 3.01m/s IVSd 2D 1.19 [ 0.60 - 0.90 ] cm AV Peak PG 36mmHg LA Volume Index 17 [ 16 - 28 ] cc/m2 AV VTI 67.54cm LVOT Diam 2.04[ 1.70 - 2.10 ] cm LVOT Peak Tesfaye 1.06[ 0.70 - 1.10 ] m/s LVOT VTI 24.12cm MV E Peak Tesfaye 0.96[ 0.60 - 1.30 ] m/s MV A Peak Tesfaye 0.84[ 0.40 - 0.80 ] m/s MV Decel Time 284[ 150 - 200 ] msec Lateral E` 0.13cm/sec E` 0.08cm/sec E/E` 8 - Findings: Interpretation Site: Exam was interpreted at [facility]. Left Ventricle: Normal left ventricular size. Mild concentric left ventricularhypertrophy. Normal global left ventricular systolic function. Normal left ventricular diastolicfunction. Ejection fraction is measured at 65 %. Global Longitudinal Strain is -17 %. Right Ventricle: Normal right ventricular size. Normal right ventricular systolicfunction. Left Atrium: The left atrium is normal in size. Right Atrium: The right atrium is normal in size. Atrial Septum: Normal atrial septum. Mitral Valve: Mitral valve leaflets appear mildly thickened. No mitral valveregurgitation is seen. Aortic Valve: Moderate aortic stenosis. Peak Velocity of 3.00 m/s. Mean gradient of 20.0mmHg. Valve area of 1.2 cm2. Tricuspid Valve: Normal appearance of the tricuspid valve. Right ventricular systolicpressure could not be estimated due to inadequate visualization of the tricuspidregurgitation jet. Pulmonic Valve: Pulmonic valve not well visualized. Pericardium: Normal pericardium with no significant pericardial effusion. Aorta: Aortic root not well visualized. IVC: Normal size and normal respiratory collapse consistent with normal rightatrial pressure (<5 mmHg). Conclusions: Normal left ventricular size. Mild left ventricular hypertrophy. Normal LVsystolic and ventricular diastolic function. Ejection fraction is measured at 65 %.Global Longitudinal Strain is -17 %. Normal RV size and systolic function. Mitral valve leaflets appear mildly thickened. No no significant MR. Sclerotic, thickened aortic valve with restricted leaflet mobility(trileaflet from previous JAVIER). Moderate aortic stenosis. Peak Velocity 3.00 m/s. Meangradient 20 mmHg. Valve area 1.2 cm2. Right ventricular systolic pressure could not be estimated due toinadequate visualization of the tricuspid regurgitation jet. Electronically Signed By: Magdi Bal MD, [facility] 2023-02-18 16:03:46 CDT CC: CC: us Magdi Bal MD CV ECHO PROCEDURES Final Result documented in this encounter Visit Diagnoses Diagnosis Moderate aortic stenosis- Primary Aortic valve disorders PSVT (paroxysmal supraventricular tachycardia) ([facility]) Paroxysmal supraventricular tachycardia Essential hypertension Unspecified essential hypertension History of alcohol abuse Nondependent alcohol abuse, in remission History of subdural hematoma Mixed dyslipidemia Moderate aortic stenosis Aortic valve disorders documented in this encounter Care Teams Hostel Manager Relationship Specialty Start Date End Date Carolyn Davis MD [address] [facility] [address] [place] [address] PCP - General 10/31/15 documented as of this encounter
--- OUTSIDE RECORDS SUMMARY | 2024-07-19 22:00 | XMS_ITS | Encounter Summary ---
Author Organization [facility] Address [address] [place] [address] Care Team Providers Care Rivet Catcher Name Role Phone Carolyn Davis MD Primary Care Provider Reason for Referral * Cardiology (Routine) - Closed Specialty Diagnoses / Procedures Referred By Kary mata Referred To Contact Diagnoses Mild aortic stenosis Procedures Transthoracic Echo Complete W Doppler/CF Tom Bal MD [address] [place] [address] Phone: tel: fax: [facility] Referral ID Status Reason Start Date Expiration Date Visits Re quested Visits Authorized [id number] Closed 12/14/2019 06/24/2021 1 1 Reason for Visit * Reason Comments Follow-up yearly follow up on PSVT, , HTN, murmur, dyslipidemia Encounter Details Date Type Department Care Team (Latest Contact Info) Description 12/14/2019 2:15 PM CDT Office Visit [facility] Cardiology [address] [place] [address] Tom Bal MD [address] [place] [address] PSVT (paroxysmal supraventricular tachycardia) (CMS/HCC) (Primary Dx); Mild aortic stenosis; Essential hypertension; Tobacco abuse Social History Tobacco Use Types Packs/Day Years Used Date Smoking Tobacco: Every Day Cigarettes Smokeless Tobacco: Never Alcohol Use Standard Drinks/Week Comments No 0 (1 standard drink = 0.6 oz pur e alcohol) Sex and Gender Information Value Date Recorded Sex Assigned at Not on file Legal Sex 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:59 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 Gender Identity Not on file Sexual Orientation Not on file documented as of this encounter Last Filed Vital Signs Vital Sign Reading Time Taken Comments Blood Pressure 136/78 12/14/2019 1:37 PM CDT Pulse 74 12/14/2019 1:37 PM CDT Temperature - - Respiratory Rate - - Oxygen Saturation 97% 12/14/2019 1:37 PM CDT Inhaled Oxygen Concentration - - Weight 109.8 kg (242 lb) 12/14/2019 1:37 PM CDT Height 180.3 cm (5' 11 ) 12/14/2019 1:37 PM CDT Body Mass Index 33.75 12/14/2019 1:37 PM CDT documented in this encounter Progress Notes * Tom Bal MD - 12/14/2019 2:15 PM CDT [facility] FOLLOW UP 12/14/2019 Chief Complaint Patient presents with ??? Follow-up yearly follow up on PSVT, , HTN, murmur, dyslipidemia 54 y.o. male with PSVT, anxiety/panic attacks. Patient was seen in [facility] on 06/22/15 when he presented with complaints of palpitations that started about one week prior to admission. He denied any chest pain, dizziness or loss of consciousness. In the ER, his EKG showed supraventriculartachycardia with a heart rate of 155 bpm. [...] Patient smokes about 4 cigarettes per day. REVIEW OF SYSTEMS General ROS: negative for - Fever, chills, fatigue Psychological ROS: Situational anxiety Ophthalmic ROS: negative for - loss of vision ENT ROS: negative for - epistaxis, headaches Respiratory ROS: negative for - cough Cardiovascular ROS: negative for - chest pain, ; positive for occasional dizziness without syncope. Gastrointestinal ROS: negative for - abdominal pain [...] Current Outpatient Medications Medication Sig Dispense Refill ??? aspirin (ASPIR-81) 81 mg tablet take 1 tablet by oral route every day 0 0 ??? buPROPion XL (WELLBUTRIN XL) 150 mg 24 hr tablet Take 300 mg by mouth daily. ??? diltiazem (TIAZAC) 300 mg 24 hr capsule 1 capsule (300 mg total) daily. 90 capsule 3 ??? eszopiclone (LUNESTA) 2 mg tablet ??? metFORMIN XR (GLUCOPHAGE XR) 500 mg 24 hr tablet TK 2 TS PO QD 0 ??? metoprolol (LOPRESSOR) 25 mg tablet Take 25 mg by mouth daily ??? multivitamin with minerals tablet Take 1 tablet by mouth daily. ??? naltrexone (DEPADE) 50 mg tablet Take 50 mg by mouth daily. ??? QUEtiapine XR (SEROquel XR) 50 mg tablet extended release 24 hr Take 50 mg by mouth 2 (two) times a day ??? rOPINIRole (REQUIP) 1 mg tablet Take 2 mg by mouth 3 (three) times a day. No current facility-administered medications for this visit. [...] HDL 25, triglycerides 325, LDL 134. 12/14/2019 PHYSICAL EXAM Vitals BP 136/78 (BP Location: Left arm, Patient Position: Sitting) Pulse 74 Ht 180.3 cm (5' 11 ) Wt 109.8 kg (242 lb) SpO2 97% BMI 33.75 kg/m?? General appearance - alert, no distress, oriented to time, place, person Mental status - affect appropriate to mood Eyes - extraocular eye movements intact, no pallor Ears - external ears appear normal, hearing grossly normal Nose - normal and patent, no discharge Mouth - mucous membranes moist, tongue normal Neck - supple, carotids upstroke normal bilaterally, no bruits, no JVD Chest - clear to auscultation Heart - normal rate, regular rhythm, somewhat distant heart sounds, soft systolic murmur Abdomen - soft, nontender, nondistended, bowel sounds present Neurological - alert, oriented, normal speech, no gross motor deficits Musculoskeletal - no major deformity, no amputations Extremities - no pedal edema, no clubbing or cyanosis Skin - no rashes (on the exposed areas), no cyanosis ASSESSMENT Diagnoses and all orders for this visit: PSVT (paroxysmal supraventricular tachycardia) (CMS/HCC) (Primary) Mild aortic stenosis - Transthoracic Echo Complete W Doppler/CF; Future Essential hypertension Tobacco abuse PLAN/RECOMMENDATIONS 54 y.o. male with PSVT, mild aortic stenosis, hypertension, anxiety/panic attacks; tobacco abuse. Symptoms of palpitations significantly improved after addition of metoprolol to the diltiazem. Currently stable cardiac status. Continue metoprolol and diltiazem. Patient advised to monitor blood pressure. Optimize/modify antihypertensives on follow-up visit as needed. Patient has been essentially asymptomatic for his PSVT. If patient has recurrent symptomatic PSVT, then he will be referred to EP. Surveillance echocardiogram with Doppler in July 2020 for aortic stenosis before follow-up visit. Smoking cessation counseling was again done. Patient wants to quit on his own. Patient states that if he fails to quit, may try Chantix in next few months. Diet and lifestyle modification for dyslipidemia. Counseling was also done regarding heart healthy diet, aerobic exercise, weight loss. Patient was advised to follow CDC and local health department guidelines including social distancing, utilizationof masks and other measures for prevention of COVID-19 infection. Patient verbalized understanding. Follow-up in July-August 2019 or sooner if needed Tom Bal MD documented in this encounter Miscellaneous Notes * Addendum Note - Kasandra Mattson MA - 12/14/2019 2:15 PM CDTAddended by: KASANDRA MATTSON on: 12/14/2019 03:30 PM Modules accepted: Orders documented in this encounter Plan of Treatment Not on file documented as of this encounter Procedures Procedure Name Priority Date/Time Associated Diagnosis Comments POCT LIPID PANEL Routine 12/14/2019 3:29 PM CDT Essential hypertension documented in this encounter Results * TRANSTHORACIC ECHO (TTE) COMPLETE W DOPPLER/CF W CONTRAST (08/17/2020 10:13 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) Anatomical Region Laterality Modality Ultrasound 08/17/2020 8:58 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 Narrative 08/17/2020 12:32 PM DRAFTER CHIEF DESIGN [facility] Cardiology [address], [place] [address] [address], [place] [address] P:[phone] P:[phone] Echocardiographic Report Patient Name: STEPHAN NUNEZ : 1965 Study Date: 08/17/2020 8:58:30 AM Gender: M Tech: GM Location: [place] Ref.Provider: SHAYNA Height(Cm): 180 BSA: 2.29 Weight(Kg): 109.77 Heart Rate: 68 BP: 119/64 Quality: Definity contrast agent used to enhance endocardial border definition Order Provider: TOM BAL Procedures: Echocardiographic Report: Transthoracic echocardiogram with complete 2D, M-Mode, color Doppler examination and Definity contrast. Indications: Aortic Stenosis. Measurements: 2D/M Mode ?Doppler ? Measurement ?Value ?Normal Range ? Measurement ?Value ?Normal Range ? EF Mod ? 72 ?BEVERLY ?1.22 ? [ 2.00 - 4.00 ] cm2 ? EF MM ?68 ? [ 55 - 70 ] % ?AV Mean PG ? 16 ? mmHg ? LVIDd MM ? 4.67 ? [ 3.90 - 5.30 ] cm ? AV Peak Tesfaye ?2.70 ? m/s ? LVIDs MM ? 2.92 ? [ 2.30 - 3.90 ] cm ? AV Peak PG ? 29 ? mmHg ? LVPWd MM ? 1.33 ? [ 0.60 - 1.00 ] cm ? AV VTI ? 0.65 ? cm ? IVSd MM ?1.33 ? [ 0.60 - 0.90 ] cm ? LVOT Peak Tesfaye ?0.89 ? [ 0.70 - 1.10 ] m/s ? LA Dimension MM ?4.42 ? [ 2.70 - 3.80 ] cm ? LVOT VTI ? 0.25 ? cm ? AoR Diam MM ?3.42 ? [ 2.60 - 3.70 ] cm ? MV E Peak Tesfaye ?0.87 ? [ 0.60 - 1.30 ] m/s ? LA Volume Index ?26.00 ?[ 16.00 - 28.00 ] cc/m2 ?MV A Peak Tesfaye ?0.91 ? [ 0.40 - 0.80 ] m/s ? ACS MM ? 1.25 ? cm ? MV Decel Time ?232 ?[ 150 - 200 ] msec ? PV Peak Tesfaye ?0.56 ? [ 0.40 - 0.80 ] m/s ? E' ? 0.16 ? E/E' ? 5 ? Findings: Interpretation Site: Exam was interpreted at [facility] [place]. Left Ventricle: Normal left ventricular systolic function. No focal wall motion abnormalities. Normal left ventricular size. Definity contrast agent used to visually enhance endocardial wall motion and contractility. Lot Number: [id number]. Mild concentric left ventricular hypertrophy. Impaired diastolic relaxation Grade I. Ejection fraction is visually estimated at 65-70 %. Right Ventricle: Normal right ventricular size. Normal right ventricular systolic function. Left Atrium: There is mild enlargement of left atrium. Right Atrium: The right atrium is normal in size. Atrial Septum: Normal atrial septum. Mitral Valve: Normal appearance of the mitral valve. Mild mitral valve regurgitation. There is no hemodynamically significant mitral stenosis by Doppler. Aortic Valve: Moderate aortic stenosis. Peak Velocity of 2.70 m/s. Peak gradient of 29.0 mmHg. Mean gradient of 16.0 mmHg. Valve area of 1.22 cm2. Aortic cusps appear moderately calcified. Trace aortic valve regurgitation. Tricuspid Valve: Normal appearance of the tricuspid valve. Right ventricular systolic pressure could not be estimated due to inadequate visualization of the tricuspid regurgitation jet. Trivial regurgitation in the tricuspid valve. Pulmonic Valve: Normal appearance of the pulmonic valve. No pulmonic stenosis. Trivial regurgitation in the pulmonic valve. Pericardium: Normal pericardium with no significant pericardial effusion. Aorta: No aortic root dilation. Mild aortic root calcification. IVC: Normal size and no respiratory collapse consistent with elevated right atrial pressure (5-10 mmHg). Conclusions: Normal left ventricular systolic function. No focal wall motion abnormalities. Normal left ventricular size. Definity contrast agent used to visually enhance endocardial wall motion and contractility. Lot Number: [id number]. Mild concentric left ventricular hypertrophy. Impaired diastolic relaxation Grade I. Ejection fraction is visually estimated at 65-70 %. There is mild enlargement of left atrium. Mild mitral valve regurgitation. Moderate aortic stenosis. Peak Velocity of 2.70 m/s. Peak gradient of 29.0 mmHg. Mean gradient of 16.0 mmHg. Valve area of 1.22 cm2. Aortic cusps appear moderately calcified. Normal sinus rhythm. Electronically Signed By: Rommel Simmons MD 2020-08-17 12:32:52 DRAFTER CHIEF DESIGN Procedure Note Rommel Simmons MD - 08/17/2020 [facility] Cardiology [address], [place] [address] [address], [place] [address] P:[phone] P:[phone] Echocardiographic Report Patient Name: STEPHAN NUNEZPatient ID: [id number] : [id number] Date: 08/17/2020 8:58:30 AM Gender: Maureencession #: [id number] Tech: GMLocation: [place] Ref.Provider: ARANZATANKayleight(Cm): 180 BSA: 2.29Weight(Kg): 109.77 Heart Rate: 68BP: 119/64 Quality: Definity contrast agent used to enhance endocardial borderdefinitionOrder Provider: TOM BAL Procedures: Echocardiographic Report: Transthoracic echocardiogram with complete 2D, M-Mode, color Dopplerexamination and Definity contrast. Indications: Aortic Stenosis. Measurements: 2D/M Mode Doppler Measurement Value Normal Range MeasurementValue Normal Range EF Mod 72 AVA1.22 [ 2.00 - 4.00 ] cm2 EF MM 68 [ 55 - 70 ] % AV Mean PG 16mmHg LVIDd MM 4.67 [ 3.90 - 5.30 ] cm AV Peak Vel2.70 m/s LVIDs MM 2.92 [ 2.30 - 3.90 ] cm AV Peak PG 29mmHg LVPWd MM 1.33 [ 0.60 - 1.00 ] cm AV VTI0.65 cm IVSd MM 1.33 [ 0.60 - 0.90 ] cm LVOT Peak Vel0.89 [ 0.70 - 1.10 ] m/s LA Dimension MM 4.42 [ 2.70 - 3.80 ] cm LVOT VTI0.25 cm AoR Diam MM 3.42 [ 2.60 - 3.70 ] cm MV E Peak Vel0.87 [ 0.60 - 1.30 ] m/s LA Volume Index 26.00 [ 16.00 - 28.00 ] cc/m2 MV A Peak Vel0.91 [ 0.40 - 0.80 ] m/s ACS MM 1.25 cm MV Decel [id number] [ 150 - 200 ] msec PV Peak Vel0.56 [ 0.40 - 0.80 ] m/s E'0.16 E/E' 5 Findings: Interpretation Site: Exam was interpreted at [facility] [place]. Left Ventricle: Normal left ventricular systolic function. No focal wall motionabnormalities. Normal left ventricular size. Definity contrast agent used to visually enhanceendocardial wall motion and contractility. Lot Number: [id number]. Mild concentric leftventricular hypertrophy. Impaired diastolic relaxation Grade I. Ejection fraction isvisually estimated at 65-70 %. Right Ventricle: Normal right ventricular size. Normal right ventricular systolicfunction. Left Atrium: There is mild enlargement of left atrium. Right Atrium: The right atrium is normal in size. Atrial Septum: Normal atrial septum. Mitral Valve: Normal appearance of the mitral valve. Mild mitral valve regurgitation.There is no hemodynamically significant mitral stenosis by Doppler. Aortic Valve: Moderate aortic stenosis. Peak Velocity of 2.70 m/s. Peak gradient of 29.0mmHg. Mean gradient of 16.0 mmHg. Valve area of 1.22 cm2. Aortic cusps appearmoderately calcified. Trace aortic valve regurgitation. Tricuspid Valve: Normal appearance of the tricuspid valve. Right ventricular systolicpressure could not be estimated due to inadequate visualization of the tricuspidregurgitation jet. Trivial regurgitation in the tricuspid valve. Pulmonic Valve: Normal appearance of the pulmonic valve. No pulmonic stenosis. Trivialregurgitation in the pulmonic valve. Pericardium: Normal pericardium with no significant pericardial effusion. Aorta: No aortic root dilation. Mild aortic root calcification. IVC: Normal size and no respiratory collapse consistent with elevated rightatrial pressure (5-10 mmHg). Conclusions: Normal left ventricular systolic function. No focal wall motionabnormalities. Normal left ventricular size. Definity contrast agent used to visually enhanceendocardial wall motion and contractility. Lot Number: [id number]. Mild concentric leftventricular hypertrophy. Impaired diastolic relaxation Grade I. Ejection fraction isvisually estimated at 65-70 %. There is mild enlargement of left atrium. Mild mitral valve regurgitation. Moderate aortic stenosis. Peak Velocity of 2.70 m/s. Peak gradient of 29.0mmHg. Mean gradient of 16.0 mmHg. Valve area of 1.22 cm2. Aortic cusps appearmoderately calcified. Normal sinus rhythm. Electronically Signed By: Rommel Simmons MD 2020-08-17 12:32:52 DRAFTER CHIEF DESIGN us Tom Bal MD CV ECHO PROCEDURES Final Result * POCT lipid panel (12/14/2019 3:29 PM CDT) Cholesterol, POC 224 mg/dL HDL, POC 25 mg/dL Triglycerides, POC 325 mg/dL LDL Cholesterol POC 134 mg/dL Chol/HDL Ratio, POC 8.9 Non-HDL Cholesterol, POC 199 mg/dL Cholesterol Total, POC 224 mg/dL Capillary blood 12/14/2019 3 :29 PM CDT Tom Bal MD POINT OF CARE TEST ORDERABLES Fi nal Result documented in this encounter Visit Diagnoses Diagnosis PSVT (paroxysmal supraventricular tachycardia) (HCC)- Primary Paroxysmal supraventricular tachycardia Mild aortic stenosis Aortic valve disorders Essential hypertension Unspecified essential hypertension Tobacco abuse Tobacco use disorder Mild aortic stenosis Aortic valve disorders documented in this encounter Discontinued Medications Medication Sig Discontinue Reason Start Date End Da te b complex vitamins capsule Take 1 capsule by mouth daily. Therapy completed 12/14/2019 documented as of this encounter Care Teams Rivet Catcher Relationship Specialty Start Date End Date Carolyn Davis MD [address] [facility] [address] [place] [address] PCP - General 10/31/15 documented as of this encounter
--- OUTSIDE RECORDS SUMMARY | 2024-07-19 22:00 | XMS_ITS | Encounter Summary ---
Author Organization [facility] Address [address] [place] [address] Care Team Providers Care Dairy Consultant Name Role Phone Carolyn Davis MD Primary Care Provider Reason for Visit * Cardiology (Routine) - Closed Specialty Diagnoses / Procedures Referred By Kary mata Referred To Contact Diagnoses Moderate aortic stenosis Procedures Transthoracic Echo (TTE) Complete W Doppler/CF Magdi Bal MD [address] [id number] Phone: tel: fax: [facility] Referral ID Status Reason Start Date Expiration Date Visits Re quested Visits Authorized [id number] Closed 11/26/2022 12/26/2023 1 1 Encounter Details Date Type Department Care Team (Latest Contact Info) Description 02/18/2023 9:15 AM CDT Ancillary Procedure [facility] Cardiology [address] [place] [address] Moderate aortic stenosis Social History Tobacco Use Types Packs/Day Years Used Date Smoking Tobacco: Every Day Cigarettes Smokeless Tobacco: Never Alcohol Use Standard Drinks/Week Comments No 0 (1 standard drink = 0.6 oz pur e alcohol) Sex and Gender Information Value Date Recorded Sex Assigned at Not on file 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 Gender Identity Not on file Sexual Orientation Not on file documented as of this encounter Last Filed Vital Signs Vital Sign Reading Time Taken Comments Blood Pressure 127/76 02/18/2023 9:23 AM CDT Pulse - - Temperature - - Respiratory Rate - - Oxygen Saturation - - Inhaled Oxygen Concentration - - Weight - - Height - - Body Mass Index - - documented in this encounter Plan of Treatment Not on file documented as of this encounter Procedures Procedure Name Priority Date/Time Associated Diagnosis Comments TRANSTHORACIC ECHO (TTE) COMPLETE W DOPPLER/CF WO CONTRAST Routine 02/18/2023 9:57 AM CDT Moderate aortic stenosis documented in this encounter Results * TRANSTHORACIC ECHO (TTE) COMPLETE W DOPPLER/CF WO CONTRAST (02/18/2023 9:57 AM CDT) Anatomical Region Laterality Modality Ultrasound 02/18/2023 9:31 AM CDT Narrative 02/18/2023 4:03 PM CDT [facility] Cardiology [address], [place] [address] [address], [place] [address] P:[phone] P:[phone] Echocardiographic Report Patient Name: WYATT NUNEZ A : 1965 Study Date: 02/18/2023 9:31:09 AM Gender: M Tech: Location: [place] Ref.Provider: MAGDI BAL Height(Cm): 180 BSA: 2.25 [...] Findings: Interpretation Site: Exam was interpreted at [facility]. Left Ventricle: Normal left ventricular size. [...] Signed By: Magdi Bal MD, [facility] 2023-02-18 16:03:46 CDT CC: CC: Procedure Note Magdi Bal MD - 02/18/2023 [facility] Cardiology [address], [place] [address] [address], [place] [address] P:[phone] P:[phone] Echocardiographic Report Patient Name: WYATT NUNEZ APatient ID: [id number] : [id number] Date: 02/18/2023 9:31:09 AM Gender: MAccession #: [id number] Tech: Location: CT Ref.Provider: MAGDI BALHeight(Cm): 180 BSA: 2.25Weight(Kg): 101.2 [...] Findings: Interpretation Site: Exam was interpreted at [facility]. Left Ventricle: Normal left ventricular size. [...] Signed By: Magdi Bal MD, [facility] 2023-02-18 16:03:46 CDT CC: CC: us Magdi Bal MD CV ECHO PROCEDURES Final Result documented in this encounter Visit Diagnoses Diagnosis Moderate aortic stenosis Aortic valve disorders documented in this encounter Care Teams Dairy Consultant Relationship Specialty Start Date End Date Carolyn Davis MD [address] [address] PCP - General 10/31/15 documented as of this encounter
--- OUTSIDE RECORDS SUMMARY | 2024-07-19 22:00 | XMS_ITS | Encounter Summary ---
Author Organization [facility] Address [address] [place] [address] Care Team Providers Care Certified Income Tax Preparer Name Role Phone Carolyn Davis MD Primary Care Provider Reason for Visit * Cardiology (Routine) - Closed Specialty Diagnoses / Procedures Referred By Kary mata Referred To Contact Diagnoses Moderate aortic stenosis Procedures Transthoracic Echo Complete W Doppler/CF Magdi Bal MD [address] [address] Phone: tel: fax: [facility] Referral ID Status Reason Start Date Expiration Date Visits Re quested Visits Authorized [id number] Closed 08/29/2020 09/28/2021 1 1 Encounter Details Date Type Department Care Team (Latest Contact Info) Description 08/16/2021 8:15 AM MONUMENT INSTALLER Ancillary Procedure [facility] Medical [facility] Cardiology [address] [facility] [address] [facility] [address] [place] [address] Moderate aortic stenosis Social History Tobacco Use Types Packs/Day Years Used Date Smoking Tobacco: Every Day Cigarettes Smokeless Tobacco: Never Alcohol Use Standard Drinks/Week Comments No 0 (1 standard drink = 0.6 oz pur e alcohol) Sex and Gender Information Value Date Recorded Sex Assigned at Not on file Legal Sex Male 1:59 AM MONUMENT INSTALLER Gender Identity Not on file Sexual Orientation Not on file documented as of this encounter Plan of Treatment Not on file documented as of this encounter Procedures Procedure Name Priority Date/Time Associated Diagnosis Comments TRANSTHORACIC ECHO (TTE) COMPLETE W DOPPLER/CF W CONTRAST Routine 08/16/2021 9:15 AM MONUMENT INSTALLER Moderate aortic stenosis documented in this encounter Results * TRANSTHORACIC ECHO (TTE) COMPLETE W DOPPLER/CF W CONTRAST (08/16/2021 9:15 AM MONUMENT INSTALLER) Anatomical Region Laterality Modality Ultrasound 08/16/2021 8:14 AM MONUMENT INSTALLER Narrative 08/16/2021 1:22 PM MONUMENT INSTALLER [facility] Cardiology [address], [place] [address] [address], [place] [address] P:[phone] P:[phone] Echocardiographic Report Patient Name: WYATT NUNEZ : 1965 Study Date: 08/16/2021 8:14:20 AM Gender: M Tech: Location: [place] Ref.Provider: MAGDI BAL Height(Cm): 180 BSA: 2.27 Weight(Kg): 107.5 Heart Rate: 76 BP: 155/72 Quality: Definity contrast agent used to enhance endocardial border definition Order Provider: MAGDI BAL Procedures: Echocardiographic Report: Transthoracic echocardiogram with complete 2D, M-Mode, color Doppler examination and Definity contrast. Indications: Aortic Stenosis. Measurements: 2D/M Mode ?Doppler ? Measurement ?Value ?Normal Range ? Measurement ?Value ?Normal Range ? EF Mod ? 74 ?BEVERLY ?1.28 ? [ 2.00 - 4.00 ] cm2 ? EF MM ?74 ? [ 55 - 70 ] % ?AV Mean PG ? 35 ? mmHg ? LVIDd MM ? 4.33 ? [ 3.90 - 5.30 ] cm ? AV Peak Tesfaye ?3.91 ? m/s ? LVIDs MM ? 2.50 ? [ 2.30 - 3.90 ] cm ? AV Peak PG ? 61 ? mmHg ? LVPWd MM ? 1.50 ? [ 0.60 - 1.00 ] cm ? AV VTI ? 0.82 ? cm ? IVSd MM ?1.67 ? [ 0.60 - 0.90 ] cm ? LVOT Diam ?2.21 ? [ 1.70 - 2.10 ] cm ? LA Dimension MM ?4.58 ? [ 2.70 - 3.80 ] cm ? LVOT Peak Tesafye ?1.30 ? [ 0.70 - 1.10 ] m/s ? AoR Diam MM ?3.50 ? [ 2.60 - 3.70 ] cm ? LVOT VTI ? 0.32 ? cm ? LA Volume Index ?30.00 ?[ 16.00 - 28.00 ] cc/m2 ?MV E Peak Tesfaye ?0.90 ? [ 0.60 - 1.30 ] m/s ? ACS MM ? 1.25 ? cm ? MV A Peak Tesfaye ?1.15 ? [ 0.40 - 0.80 ] m/s ? MV Decel Time ?359 ?[ 150 - 200 ] msec ? PV Peak Tesfaye ?1.13 ? [ 0.40 - 0.80 ] m/s ? E' ? 0.10 ? E/E' ? 9 ? Findings: Interpretation Site: Exam was interpreted at [facility]. Left Ventricle: Normal left ventricular systolic function. No focal wall motion abnormalities. Normal left ventricular size. Definity contrast agent used to visually enhance endocardial wall motion and contractility. Lot Number: [id number]. Mild concentric left ventricular hypertrophy. Impaired diastolic relaxation Grade I. Ejection fraction is visually estimated at 70-75 %. Ejection fraction is measured at 74 %. Right Ventricle: Normal right ventricular size. Normal right ventricular systolic function. Left Atrium: There is mild enlargement of left atrium. Right Atrium: The right atrium is normal in size. Atrial Septum: Normal atrial septum. Mitral Valve: Normal appearance of the mitral valve. Trivial regurgitation of the mitral valve. There is no hemodynamically significant mitral stenosis by Doppler. Aortic Valve: Moderate aortic stenosis. Peak gradient of 61.0 mmHg. Mean gradient of 35.0 mmHg. Valve area of 1.28 cm2. Aortic cusps appear moderately calcified. Trace aortic valve regurgitation. Tricuspid Valve: Normal appearance of the tricuspid valve. Right ventricular systolic pressure could not be estimated due to inadequate visualization of the tricuspid regurgitation jet. Mild tricuspid regurgitation. Pulmonic Valve: Normal appearance of the pulmonic valve. No pulmonic stenosis. Trivial regurgitation in the pulmonic valve. Pericardium: Normal pericardium with no significant pericardial effusion. Aorta: No aortic root dilation. Mild aortic root calcification. IVC: Normal size and normal respiratory collapse consistent with normal right atrial pressure (<5 mmHg). Conclusions: Normal left ventricular systolic function. No focal wall motion abnormalities. Normal left ventricular size. Definity contrast agent used to visually enhance endocardial wall motion and contractility. Lot Number: [id number]. Mild concentric left ventricular hypertrophy. Impaired diastolic relaxation Grade I. Ejection fraction is visually estimated at 70-75 %. Ejection fraction is measured at 74 %. There is mild enlargement of left atrium. Moderate aortic stenosis. Peak gradient of 61.0 mmHg. Mean gradient of 35.0 mmHg. Valve area of 1.28 cm2. Aortic cusps appear moderately calcified. Trace aortic valve regurgitation. Mild tricuspid regurgitation. Compared with prior echo, the AV gradients have increased. Normal sinus rhythm. Electronically Signed By: Rommel Simmons MD 2021-08-16 13:22:03 MONUMENT INSTALLER Procedure Note Rommel Simmons MD - 08/16/2021 [facility] Cardiology [address], [place] [address] [address], [place] [address] P:[phone] P:[phone] Echocardiographic Report Patient Name: WYATT NUNEZPatient ID: [id number] : [id number] Date: 08/16/2021 8:14:20 AM Gender: MAccession #: [id number] Tech: GMLocation: [place] Ref.Provider: MAGDI BALHeight(Cm): 180 BSA: 2.27Weight(Kg): 107.5 Heart Rate: 76BP: 155/72 Quality: Definity contrast agent used to enhance endocardial borderdefinitionOrder Provider: MAGDI BAL Procedures: Echocardiographic Report: Transthoracic echocardiogram with complete 2D, M-Mode, color Dopplerexamination and Definity contrast. Indications: Aortic Stenosis. Measurements: 2D/M Mode Doppler Measurement Value Normal Range MeasurementValue Normal Range EF Mod 74 AVA1.28 [ 2.00 - 4.00 ] cm2 EF MM 74 [ 55 - 70 ] % AV Mean PG 35mmHg LVIDd MM 4.33 [ 3.90 - 5.30 ] cm AV Peak Vel3.91 m/s LVIDs MM 2.50 [ 2.30 - 3.90 ] cm AV Peak PG 61mmHg LVPWd MM 1.50 [ 0.60 - 1.00 ] cm AV VTI0.82 cm IVSd MM 1.67 [ 0.60 - 0.90 ] cm LVOT Diam2.21 [ 1.70 - 2.10 ] cm LA Dimension MM 4.58 [ 2.70 - 3.80 ] cm LVOT Peak Vel1.30 [ 0.70 - 1.10 ] m/s AoR Diam MM 3.50 [ 2.60 - 3.70 ] cm LVOT VTI0.32 cm LA Volume Index 30.00 [ 16.00 - 28.00 ] cc/m2 MV E Peak Vel0.90 [ 0.60 - 1.30 ] m/s ACS MM 1.25 cm MV A Peak Vel1.15 [ 0.40 - 0.80 ] m/s MV Decel Rzht753 [ 150 - 200 ] msec PV Peak Vel1.13 [ 0.40 - 0.80 ] m/s E'0.10 E/E' 9 Findings: Interpretation Site: Exam was interpreted at [facility]. Left Ventricle: Normal left ventricular systolic function. No focal wall motionabnormalities. Normal left ventricular size. Definity contrast agent used to visually enhanceendocardial wall motion and contractility. Lot Number: [id number]. Mild concentric leftventricular hypertrophy. Impaired diastolic relaxation Grade I. Ejection fraction isvisually estimated at 70-75 %. Ejection fraction is measured at 74 %. Right Ventricle: Normal right ventricular size. Normal right ventricular systolicfunction. Left Atrium: There is mild enlargement of left atrium. Right Atrium: The right atrium is normal in size. Atrial Septum: Normal atrial septum. Mitral Valve: Normal appearance of the mitral valve. Trivial regurgitation of the mitralvalve. There is no hemodynamically significant mitral stenosis by Doppler. Aortic Valve: Moderate aortic stenosis. Peak gradient of 61.0 mmHg. Mean gradient of35.0 mmHg. Valve area of 1.28 cm2. Aortic cusps appear moderately calcified. Trace aorticvalve regurgitation. Tricuspid Valve: Normal appearance of the tricuspid valve. Right ventricular systolicpressure could not be estimated due to inadequate visualization of the tricuspidregurgitation jet. Mild tricuspid regurgitation. Pulmonic Valve: Normal appearance of the pulmonic valve. No pulmonic stenosis. Trivialregurgitation in the pulmonic valve. Pericardium: Normal pericardium with no significant pericardial effusion. Aorta: No aortic root dilation. Mild aortic root calcification. IVC: Normal size and normal respiratory collapse consistent with normal rightatrial pressure (<5 mmHg). Conclusions: Normal left ventricular systolic function. No focal wall motionabnormalities. Normal left ventricular size. Definity contrast agent used to visually enhanceendocardial wall motion and contractility. Lot Number: [id number]. Mild concentric leftventricular hypertrophy. Impaired diastolic relaxation Grade I. Ejection fraction isvisually estimated at 70-75 %. Ejection fraction is measured at 74 %. There is mild enlargement of left atrium. Moderate aortic stenosis. Peak gradient of 61.0 mmHg. Mean gradient of35.0 mmHg. Valve area of 1.28 cm2. Aortic cusps appear moderately calcified. Trace aorticvalve regurgitation. Mild tricuspid regurgitation. Compared with prior echo, the AV gradients have increased. Normal sinus rhythm. Electronically Signed By: Rommel Simmons MD 2021-08-16 13:22:03 MONUMENT INSTALLER Magdi Bal MD CV ECHO PROCEDURES Final Result documented in this encounter Visit Diagnoses Diagnosis Moderate aortic stenosis Aortic valve disorders documented in this encounter Administered Medications Inactive Administered Medications - up to 3 most recent administrations Medication Order MAR Action Action Date Dose Rate Site perflutren lipid (DEFINITY) 1.5 mL in sodium chloride 0.9% 10 mL syringe 1-10 mL, intravenous, Once in imaging, contrast, Starting on Thu08/16/21 at 0854, For 1 dose Contrast Given 08/16/2021 9:05 AM MONUMENT INSTALLER 1 mL documented in this encounter Orders Medications Ordered That Eric ht Not Have Been Administered Count Last Ordered Date First Ordered Date perflutren lipid (DEFINITY) 1.5 mL in sodium chloride 0.9% 10 mL syringe 1 08/16/2021 documented in this encounter Care Teams Certified Income Tax Preparer Relationship Specialty Start Date End Date Carolyn Davis MD [address] [facility] [address] [place] [address] PCP - General 10/31/15 documented as of this encounter
--- OUTSIDE RECORDS SUMMARY | 2024-07-19 22:00 | XMS_ITS | Encounter Summary ---
Author Organization [facility] Medical [facility] Address [address] [address] Care Team Providers Care Manager Science Name Role Phone Carolyn Davis MD Primary Care Provider Encounter Details Date Type Department Care Team (Late st Contact Info) Description 01/28/2022 Telephone [facility] [address] [facility] [address] [place] [phone] Georgi Ellis III, MD [address] [facility] [address], [place] [address] Social History Tobacco Use Types Packs/Day Years Used Date Smoking Tobacco: Every Day Cigarettes Smokeless Tobacco: Never Alcohol Use Standard Drinks/Week Comments No 0 (1 standard drink = 0.6 oz pur e alcohol) Sex and Gender Information Value Date Recorded Sex Assigned at Not on file Legal Sex Male 1:59 AM TIE FASTENER Gender Identity Not on file Sexual Orientation Not on file documented as of this encounter Miscellaneous Notes * Telephone Encounter - Lu Marmolejo - 01/28/2022 10:23 AM CDT Pt no showed appt with Dr Ellis on 01/21/22 documented in this encounter Plan of Treatment Not on file documented as of this encounter Visit Diagnoses Not on filedocumented in this encounter Care Teams Manager Science Relationship Specialty Start Date End Date Carolyn Davis MD [address] [facility] [address] [place] [id number] PCP - General 10/31/15 documented as of this encounter
--- OUTSIDE RECORDS SUMMARY | 2024-07-19 22:00 | XMS_ITS | Encounter Summary ---
Author Organization [facility] Medical [facility] Address [address] [address] [place] [address] Care Team Providers Care Liquor Clerk Name Role Phone Carolyn Davis MD Primary Care Provider Reason for Visit * Reason Comments Follow-up 1 yr f/u Encounter Details Date Type Department Care Team (Late st Contact Info) Description 12/06/2018 2:30 PM CDT Office Visit [facility] [address] [facility] [address] [address] Lizette Quintero NP [address] [facility] [address] [facility] [address] [place] [address] PSVT (paroxysmal supraventricular tachycardia) (CMS/HCC) (Primary Dx); Mild aortic stenosis; Essential hypertension; Situational anxiety Social History Tobacco Use Types Packs/Day Years Used Date Smoking Tobacco: Every Day Cigarettes Smokeless Tobacco: Never Tobacco Cessation:Ready to Q uit: No; Counseling Given: Yes Alcohol Use Standard Drinks/Week Comments No 0 (1 standard drink = 0.6 oz pur e alcohol) Sex and Gender Information Value Date Recorded Sex Assigned at Not on file Legal Sex Male 1:59 AM KNIFE SETTER Gender Identity Not on file Sexual Orientation Not on file documented as of this encounter Last Filed Vital Signs Vital Sign Reading Time Taken Comments Blood Pressure 126/68 12/06/2018 2:39 PM CDT Pulse 72 12/06/2018 2:39 PM CDT Temperature - - Respiratory Rate - - Oxygen Saturation 94% 12/06/2018 2:39 PM CDT Inhaled Oxygen Concentration - - Weight 111.9 kg (246 lb 9.6 oz) 12/06/2018 2:39 PM CDT Height 182.9 cm (6') 12/06/2018 2:39 PM CDT Body Mass Index 33.44 12/06/2018 2:39 PM CDT documented in this encounter Progress Notes * Lizette Quintero NP - 12/06/2018 2:30 PM CDT [facility] Date of Visit: 12/06/2018 Patient ID: Wyatt Madden 1965 Chief Complaint: Wyatt Madden is a 53 y.o. male who is an established patient Dr. De Jesus here for follow-up of his PSVT. History of Present Illness: Wyatt Madden is a 53 y.o. male with PSVT, anxiety/panic attacks. Patient was seen in [facility] on 06/22/15 when he presented with complaints of palpitations that started about one week prior to admission. He denied any chest pain, dizziness or loss of consciousness. In the ER, his EKGshowed supraventricular tachycardia with a heart rate of [...] 55-60%. He was discharged home on diltiazem. 11/04/2017 OV: Patient is here for the follow-up visit. Patient states that his father recently, and he is currently undergoing emotional stress. From cardiac standpoint, he is doing relatively well. He has not had any sustained palpitations since last office visit. His main complaint hasbeen anxiety related to situations like heights and being alone in elevators. Denies chest pain, dyspnea on exertion. No dizziness or loss of consciousness. Patient smokes one third to one half pack per day. 07/19/2018 OV w/ HOT BREAD BAKER: Patient comes in today complaining of episodes where he has a head joseph?? followed by dizziness which lasts for 30-45 minutes. S began happening about 2 and months ago any has an episode every 2-3 weeks last episode was 2 days ago. Couple of episodes occurred he is been sitting, 1 episode while driving, 1 episode while standing line at the check out counter in the store. Denies any palpitations or chest pain. He reports no other changes in his health. For a time he was exercising and 18 better in lost some weight, but has gained some of it back. POC lipids today showed TC 293, TG 283, LDL 204, HDL 33. 12-lead ECG performed in the office today was reviewed by me personally shows sinus rhythm with normal axis and normal intervals, rate 67 b.p.m. 12/06/2018 OV w/ HOT BREAD BAKER: He reports that the dizziness and ???head rushes?? he was having a few monthsago have resolved. He denies any palpitations. He remains on diltiazem and metoprolol. He is disappointed with his weight gain and attributes it to over eating. He has a vacation coming up and is going to be flying in airplane, is concerned about anxiety with flying. Records that I personally reviewed on the day of this visit include: (the interpretation is outlined in the HPI above) 07/19/2018 office note from myself, 11/04/[address] De Jesus I have also reviewed: allergies, current medications, past family history, past medical history, past social history, past surgical history and problem list Review of Systems Constitution: Positive for malaise/fatigue and weight gain. Negative for diaphoresis, fever and weight loss. HENT: Negative for hearing loss. Eyes: Negative for visual disturbance. Cardiovascular: Negative for chest pain, claudication, dyspnea on exertion, leg swelling, orthopnea, palpitations, paroxysmal nocturnal dyspnea and syncope. Respiratory: Positive for snoring. Negative for cough, hemoptysis, shortness of breath and wheezing. Hematologic/Lymphatic: Does not bruise/bleed easily. Skin: Negative for poor wound healing and rash. Musculoskeletal: Positive for joint pain. Negative for myalgias. Gastrointestinal: Negative for heartburn, nausea and vomiting. Genitourinary: Negative for hematuria. Neurological: Negative for dizziness, headaches and light-headedness. Psychiatric/Behavioral: Positive for depression. The patient is not nervous/anxious. Vital Signs: BP 126/68 (BP Location: Left arm, Patient Position: Sitting) Pulse 72 Ht 182.9 cm (6') Wt 111.9 kg (246 lb 9.6 oz) SpO2 94% BMI 33.44 kg/m?? Physical Exam Constitutional: He is oriented to person, place, and time. He appears well- developed. No distress. Obese body habitus. HENT: Head: Normocephalic and atraumatic. Eyes: Pupils are equal, round, and reactive to light. Conjunctivae and EOM are normal. No scleral icterus. Neck: Normal range of motion. No JVD present. No tracheal deviation present. Cardiovascular: Normal rate and regular rhythm. Murmur heard. Systolic murmur is present with a grade of 1/6. Pulmonary/Chest: Effort normal and breath sounds normal. No respiratory distress. Abdominal: Soft. Bowel sounds are normal. There is no tenderness. Musculoskeletal: Normal range of motion. He exhibits no edema. Neurological: He is alert and oriented to person, place, and time. Skin: Skin is warm and dry. Psychiatric: He has a normal mood and affect. No Known Allergies Current Outpatient Medications: ??? aspirin (ASPIR-81) 81 mg tablet, take 1 tablet by oral route every day, Disp: 0, Rfl: 0 ??? b complex vitamins capsule, Take 1 capsule by mouth daily., Disp: , Rfl: ??? buPROPion XL (WELLBUTRIN XL) 150 mg 24 hr tablet, Take 300 mg by mouth daily., Disp: , Rfl: ??? diltiazem (TIAZAC) 300 mg 24 hr capsule, 1 capsule (300 mg total) daily., Disp: 90 capsule, Rfl: 3 ??? eszopiclone (LUNESTA) 2 mg tablet, , Disp: , Rfl: ??? metFORMIN XR (GLUCOPHAGE XR) 500 mg 24 hr tablet, TK 2 TS PO QD, Disp: , Rfl: 0 ??? metoprolol (LOPRESSOR) 25 mg tablet, Take 25 mg by mouth., Disp: , Rfl: ??? multivitamin with minerals tablet, Take 1 tablet by mouth daily., Disp: , Rfl: ??? naltrexone (DEPADE) 50 mg tablet, Take 50 mg by mouth daily., Disp: , Rfl: ??? QUEtiapine XR (SEROquel XR) 50 mg tablet extended release 24 hr, Take 50 mg by mouth daily., Disp: , Rfl: ??? rOPINIRole (REQUIP) 1 mg tablet, Take 2 mg by mouth 3 (three) times a day. , Disp: , Rfl: No results found for: POTASSIUM, BUNSER, CREATININE, CHOL, TRIG, LDL, LDLCALC, HDL Assessment: Diagnoses and all orders for this visit: PSVT (paroxysmal supraventricular tachycardia) (CMS/HCC) (Primary) Mild aortic stenosis Essential hypertension Situational anxiety Plan/Recommendations: He has not had any recurrence of his PSVT. He remains on metoprolol and diltiazem. Echocardiogram performed after the last visit showed mild aortic stenosis. I explained that we would likely repeat a surveillance echo in 2 years time. Blood pressure is controlled and is followed by PCP. I advised him to contact PCP about prescription anxiolytic to be taken before air travel. Return to the office to see Dr. De Jesus in 12 months. Call us sooner with questions or concerns. WOJCIECH Vieyra- Nurse Practitioner with [facility] This note is dictated and transcribed using [employer] Direct Software. Coordinator Skill Training Program variancesmay occur. Despite proofreading, typographical errors may occur. documented in this encounter Plan of Treatment Not on file documented as of this encounter Visit Diagnoses Diagnosis PSVT (paroxysmal supraventricular tachycardia) (HCC)- Primary Paroxysmal supraventricular tachycardia Mild aortic stenosis Aortic valve disorders Essential hypertension Unspecified essential hypertension Situational anxiety documented in this encounter Care Teams Liquor Clerk Relationship Specialty Start Date End Date Carolyn Davis MD [address] [facility] [address] [place] [address] PCP - General 10/31/15 documented as of this encounter
--- OUTSIDE RECORDS SUMMARY | 2024-07-19 22:00 | XMS_ITS | Encounter Summary ---
Author Organization [facility] Address [address] [facility] [address] [place] [address] Care Team Providers Care Hand Fretted Instrument Maker Name Role Phone Carolyn Davis MD Primary Care Provider Encounter Details Date Type Department Care Team (Late st Contact Info) Description 09/19/2020 Telephone [facility] Cardiology [address] [place] [address] Tom De Jesus MD [address] [place] [id number] Social History Tobacco Use Types Packs/Day Years Used Date Smoking Tobacco: Every Day Cigarettes Smokeless Tobacco: Never Alcohol Use Standard Drinks/Week Comments No 0 (1 standard drink = 0.6 oz pur e alcohol) Sex and Gender Information Value Date Recorded Sex Assigned at Not on file Legal Sex Male 1:59 AM CABLE LACER Gender Identity Not on file Sexual Orientation Not on file documented as of this encounter Miscellaneous Notes * Telephone Encounter - Kasandra Mattson MA - 09/20/2020 10:04 AM CST Spoke with Janice at [facility] in [place] and clarified the directions for the starter pack of Chantix. E LACER * Telephone Encounter - Rosanna Ortiz - 09/19/2020 2:00 PM CST Pharm call to discuss the directions for pt Chantix kelechi 0.5 mg (11)-1mg (42) tabs. E LACER documented in this encounter Plan of Treatment Not on file documented as of this encounter Visit Diagnoses Not on filedocumented in this encounter Care Teams Hand Fretted Instrument Maker Relationship Specialty Start Date End Date Carolyn Davis MD [address] [facility] [address] [place] [address] PCP - General 10/31/15 documented as of this encounter
--- OUTSIDE RECORDS SUMMARY | 2024-07-19 22:00 | XMS_ITS | Encounter Summary ---
Author Organization [facility] Address [address] [place] [address] Care Team Providers Care Lining Cleaner Name Role Phone Carolyn Davis MD Primary Care Provider Reason for Visit * Reason Comments Follow-up 3 mo f/u on PSVT. HT N, and anxiety Encounter Details Date Type Department Care Team (Latest Contact Info) Description 11/04/2017 10:15 AM CDT Office Visit [facility] [address] [place] [address] Tom De Jesus MD [address] [id number] PSVT (paroxysmal supraventricular tachycardia) (CMS/HCC) (Primary Dx); Essential hypertension; Situational anxiety; Tobacco abuse; Bereavement Social History Tobacco Use Types Packs/Day Years Used Date Smoking Tobacco: Every Day Cigarettes Smokeless Tobacco: Never Alcohol Use Standard Drinks/Week Comments No 0 (1 standard drink = 0.6 oz pur e alcohol) Sex and Gender Information Value Date Recorded Sex Assigned at Not on file 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 Gender Identity Not on file Sexual Orientation Not on file documented as of this encounter Last Filed Vital Signs Vital Sign Reading Time Taken Comments Blood Pressure 124/80 11/04/2017 10:48 AM CDT Pulse 64 11/04/2017 10:48 AM CDT Temperature - - Respiratory Rate - - Oxygen Saturation 93% 11/04/2017 10:48 AM CDT Inhaled Oxygen Concentration - - Weight 111.1 kg (245 lb) 11/04/2017 10:48 AM CDT Height 182.9 cm (6') 11/04/2017 10:48 AM CDT Body Mass Index 33.23 11/04/2017 10:48 AM CDT documented in this encounter Progress Notes * Tom De Jesus MD - 11/04/2017 10:15 AM CDT [facility] FOLLOW UP 11/04/2017 Chief Complaint Patient presents with ??? Follow-up 3 mo f/u on PSVT. HTN, and anxiety 52-year-old male with PSVT, anxiety/panic attacks. Patient was seen in [facility] on 06/22/15 when he presented with complaints [...] third to one half pack per day. REVIEW OF SYSTEMS General ROS: negative for - Fever, chills, fatigue Psychological ROS: Situational anxiety, emotional stress related to passing of his father Ophthalmic ROS: negative for - loss of vision ENT ROS: negative for - epistaxis, headaches, nasal congestion Respiratory ROS: negative for - cough, hemoptysis, wheezing Cardiovascular ROS: negative for - chest pain, dyspnea, edema, Syncope, orthopnea/PND; positive forsporadic palpitations Gastrointestinal ROS: negative for - abdominal pain, blood in stools, hematemesis, nausea/vomiting Hematological and Lymphatic ROS: negative for - bleeding problems, bruising Endocrine ROS: negative for - hot flashes, polydipsia/polyuria Allergy and Immunology ROS: negative for - hives, postnasal drip Genito-Urinary ROS: negative for - dysuria, hematuria Musculoskeletal ROS: negative for - joint pain, muscle pain Neurological ROS: negative for - gait disturbance, weakness, syncope Dermatological ROS: negative for pruritus, rash HOME MEDICATIONS No Known Allergies Current Outpatient Prescriptions Medication Sig Dispense Refill ??? aspirin (ASPIR-81) 81 mg tablet take 1 tablet by oral route every day 0 0 ??? buPROPion XL (WELLBUTRIN XL) 150 mg 24 hr tablet Take 300 mg by mouth daily. ??? diltiazem (TIAZAC) 300 mg 24 hr capsule 1 capsule (300 mg total) daily. 90 capsule 3 ??? multivitamin with minerals tablet Take 1 tablet by mouth daily. ??? naltrexone (DEPADE) 50 mg tablet Take 50 mg by mouth daily. ??? QUEtiapine XR (SEROquel XR) 50 mg tablet extended release 24 hr Take 50 mg by mouth daily. ??? rOPINIRole (REQUIP) 1 mg tablet Take 2 mg by mouth 3 (three) times a day. ??? b complex vitamins capsule Take 1 capsule by mouth daily. ??? sertraline (ZOLOFT) 25 mg tablet take 1 tablet by oral route 2 times every day (Patient not taking: Reported on 11/04/2017 ) 0 0 No current facility-administered medications for this [...] LVE, mild LVH, EF 55-60%.) - 06/22/2015 PHYSICAL EXAM Vitals: 11/04/17 1048 BP: 124/80 Pulse: 64 SpO2: 93% General appearance - alert, no distress, oriented [...] auscultation Heart - normal rate, regular rhythm, normal S1, S2, no audible murmurs or gallops Abdomen - soft, nontender, nondistended, bowel sounds present Neurological - alert, oriented, normal speech, no gross motor deficits Musculoskeletal - no major deformity, no amputations Extremities - no pedal edema, no clubbing or cyanosis Skin - no rashes (on the exposed areas), no cyanosis ASSESSMENT Diagnoses and all orders for this visit: PSVT (paroxysmal supraventricular tachycardia) (CMS/HCC) (Primary) Essential hypertension Situational anxiety Tobacco abuse Bereavement PLAN/RECOMMENDATIONS 52-year-old male with PSVT, anxiety/panic attacks; tobacco abuse. Symptoms of palpitations significantly improved after addition of metoprolol to the diltiazem. LVEF 55-60%, no structural heart disease. Currently stable cardiac status. Patient would like to simplify medical regimen. Will taper off metoprolol tartrate, and increase dose of diltiazem CD to 300 mg daily. New prescription was sent to the pharmacy. Patient advised to monitor blood pressure. Optimize/modify antihypertensives on follow-up visit as needed. Patient has been essentially asymptomatic for his PSVT. If patient has recurrent symptomatic PSVT, then he will be referred to EP. Recommend psychological evaluation for patient's situational anxiety/panic attacks. Smoking cessation counseling was again done. Counseling was also done regarding heart healthy diet,aerobic exercise. More than 50% of the time was spent on counseling. Routine follow-up visit with PCP. Follow-up in 12 months or sooner if needed Tom De Jesus MD documented in this encounter Plan of Treatment Not on file documented as of this encounter Visit Diagnoses Diagnosis PSVT (paroxysmal supraventricular tachycardia) (HCC)- Primary Paroxysmal supraventricular tachycardia Essential hypertension Unspecified essential hypertension Situational anxiety Tobacco abuse Tobacco use disorder Bereavement Bereavement, uncomplicated documented in this encounter Discontinued Medications Medication Sig Discontinue Reason Start Date End Da te diltiazem (TIAZAC) 240 mg 24 hr capsule 1 capsule (240 mg total) daily. 08/19/2017 11/04/2017 metoprolol (LOPRESSOR) 25 mg tablet take 0.5 Tablet by ORAL route every day and if needed take 1 tablet by oral route twice daily 08/08/2015 11/04/2017 documented as of this encounter Historical Medications * This list may reflect changes made after this encounter. QUEtiapine XR (SEROquel XR) 50 mg tablet extended release 24 hr Take 1 tablet (50 mg total) by mouth 2 (two) times a day diltiazem (TIAZAC) 300 mg 24 hr capsule Take 1 capsule (300 mg total) by mouth every evening 90 capsule 3 11/04/2017 02/15/2024 naltrexone (DEPADE) 50 mg tablet Take 1 tablet (50 mg total) by mouth daily 02/15/2024 added in this encounter Care Teams Lining Cleaner Relationship Specialty Start Date End Date Carolyn Davis MD [address] [facility] [address] [place] [address] PCP - General 10/31/15 documented as of this encounter
--- OUTSIDE RECORDS SUMMARY | 2024-07-19 22:00 | XMS_ITS | Encounter Summary ---
Author Organization [facility] Address [address] [place] [address] Care Team Providers Care Disc Sander Name Role Phone Carolyn Davis MD Primary Care Provider Reason for Referral * MRI/CAT/PET Scan (Routine) - Closed Specialty Diagnoses / Procedures Referred By Fredoac t Referred To Contact Radiology Diagnoses Nonrheumatic aortic valve stenosis Procedures CT TAVR Ernie Baldwin MD [address] [id number] [place] [address] Phone: tel: fax: [address] [phone] Referral ID Status Reason Start Date Expiration Date Visits Re quested Visits Authorized [id number] Closed 02/23/2024 03/24/2025 1 1 Reason for Visit * MRI/CAT/PET Scan (Routine) - Closed Specialty Diagnoses / Procedures Referred By Contac t Referred To Contact Radiology Diagnoses Nonrheumatic aortic valve stenosis Procedures CT TAVR Ernie Baldwin MD [address] [facility] [address] [place] [address] Phone: tel: fax: [address] [phone] Referral ID Status Reason Start Date Expiration Date Visits Re quested Visits Authorized [id number] Closed 02/23/2024 03/24/2025 1 1 Encounter Details Date Type Department Care Team (Latest Contact Info) Description 03/01/2024 2:54 PM CDT - 03/01/2024 11:59 PM CDT Hospital Encounter [facility] and Radiology [address] [place] [address] Nonrheumatic aortic valve stenosis Discharge Disposition: Discharge to home or self [...] on file 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 Gender Identity Not on file Sexual Orientation [...] (two) times a day as needed 01/04/2024 enoxaparin (LOVENOX) 80 mg/0.8 mL syringeIndications:Az chanical Valve Thromboembolism Prophylaxis Inject 0.8 mL [...] mouth 2 (two) times a day 4 oxyCODONE (ROXICODONE) 5 mg immediate release [...] Procedure Name Priority Date/Time Associated Diagnosis Comments CT TAVR Schedule Routine, Read Routine (OP Routine) 03/01/2024 3:40 PM CDT Nonrheumatic aortic valve stenosis documented in this encounter Results * CT TAVR (03/01/2024 3:40 PM CDT) Anatomical Region Laterality Modality Chest N/A Computed Tomogra phy 03/02/2024 11:2 2 AM CDT Impressions 03/04/2024 7:01 AM CDT 1. Severe aortic valvular stenosis. 2. Aortic annulus, and abdominal aortic, common iliac, external iliac and femoral artery measurements in preparation for TAVR procedure as described above. ??Note the left common femoral artery is narrowed with a minimum diameter of 5 mm due to atherosclerotic calcification. 3. Aortic valve calcium score: Agatston 925, Volume 768 mm3. 4. ??Morphologic features suspicious for hepatic cirrhosis with multiple subcentimeter areas of arterial hyperenhancement that are incompletely characterized on this examination. ??Recommend further evaluation with liver MRI without intervenous contrast. 5. ??Diffuse gallbladder wall edema is likely secondary to underlying liver disease. Dictated by: Stone Arango MD The radiology attending physician has personally reviewed this study, and had reviewed and/or edited this written report and agrees with it. Electronically signed by: Hakeem Catalan M.D. Narrative 03/04/2024 7:01 AM CDT EXAMINATION: Heart CT and CTA abdomen and pelvis with contrast. ?? History: Severe aortic stenosis, pre-TAVR procedure. ?? Technique: Heart CT and CT angiogram of the abdomen and pelvis performed during administration of 119 mL of Optiray 350, intravenously per TAVR Protocol. ??Images were transferred to an independent workstation for additional 3D post-processing. ?? FINDINGS: Annulus and Thoracic Aortic Measurements (in systole): Aortic valve annulus: ??Area 4.42 centimeters squared: circumference 76 mm; 27 mm maximum diameter x 22 mm minimum diameter. Sinuses of Valsalva: ??32 x 34 x 32 mm cusp to commissure Sinotubular junction: ??30 x 27 Ascending aorta: 34 x 34 mm at the level of main pulmonary artery. Aortic valve calcium score: Agatston 925, Volume 68mm3. Coronary sinus heights: Right coronary sinus height: 24 Left coronary sinus height: 24 Non-coronary sinus height: 23 There is ??no left ventricular outflow tract calcification. There is ??Moderate mitral annular calcification. ?? Distance to RCA ostium from aortic valve annulus: ??18 mm Distance to left main ostium from annulus: ??16 mm Deployment angle: 2 MANCIA, 14 Caudal Coronary Arteries: Anomalous coronary artery course: No Left main atherosclerosis: ??None LAD atherosclerosis: ??Mild Circumflex atherosclerosis: ??None RCA atherosclerosis: ??Moderate Abdominal Aortic and Pelvic Arterial Smallest Diameter Measurements (made from centerline curved MPRs): ? Infrarenal aorta: ??13 mm ??x ??14 mm ?? Right common iliac artery: ??7 mm ??x ??9 mm. ?? There is moderate calcification. Left common iliac artery: ??7 mm ??x ??8 9 mm . ?? There is Moderate calcification. There is minimal tortuosity of the bilateral common iliac arteries. ?? Right external iliac artery: ??7 mm ??x ??6 mm. There is mild calcification. ?? Left external iliac artery: ??7 mm ??x ??6 mm. ??There is Mild calcification. There is minimal ??tortuosity of the bilateral external iliac arteries. ?? Right common femoral artery: ??7 mm. There is mild ??calcification. Left common femoral artery: ??5 mm. ??There is Moderate ??calcification. There is minimal tortuosity of the bilateral femoral arteries. Other findings: ?? Minimal biapical paraseptal emphysema. ??Lungs are otherwise clear. No nodule or consolidation. ??No pleural effusion or pneumothorax. Heart size is normal. ??There is no pericardial effusion. ??Main pulmonary arteries normal in caliber. ??There is no thoracic lymphadenopathy. There is mild surface nodularity of liver with multiple subcentimeter areas of arterial hyperenhancement. ??The gallbladder is normal in size but moderately thick-walled with submucosal edema, but no evidence of acute cholecystitis. ??There is no biliary ductal dilation. ?? Main portal vein is patent. ??Spleen, pancreas, and adrenal glands normal. ??Kidneys enhance symmetrically without hydronephrosis. ??Urinary bladder is normal. ??Prostate is unremarkable with mild dystrophic calcifications. ?There is no bowel obstruction. ??There is no evidence of appendicitis. ??No ascites or pneumoperitoneum. ??There are moderate atherosclerotic calcifications of a nonaneurysmal abdominal aorta. ??No suspicious osseous lesion. ?? Procedure Note Hakeem Catalan MD - 03/04/2024 EXAMINATION: Heart CT and CTA abdomen and pelvis with contrast. History: Severe aortic stenosis, pre-TAVR procedure. Technique: Heart CT and CT angiogram of the abdomen and pelvis performed during administration of 119 mL of Optiray 350, intravenously per TAVR Protocol. Images were transferred to an independent workstation for additional 3D post-processing. FINDINGS: Annulus and Thoracic Aortic Measurements (in systole): Aortic valve annulus: Area 4.42 centimeters squared: circumference 76 mm; 27 mm maximum diameter x 22 mm minimum diameter. Sinuses of Valsalva: 32 x 34 x 32 mm cusp to commissure Sinotubular junction: 30 x 27 Ascending aorta: 34 x 34 mm at the level of main pulmonary artery. Aortic valve calcium score: Agatston 925, Volume 68mm3. Coronary sinus heights: Right coronary sinus height: 24 Left coronary sinus height: 24 Non-coronary sinus height: 23 There is no left ventricular outflow tract calcification. There is Moderate mitral annular calcification. Distance to RCA ostium from aortic valve annulus: 18 mm Distance to left main ostium from annulus: 16 mm Deployment angle: 2 MANCIA, 14 Caudal Coronary Arteries: Anomalous coronary artery course: No Left main atherosclerosis: None LAD atherosclerosis: Mild Circumflex atherosclerosis: None RCA atherosclerosis: Moderate Abdominal Aortic and Pelvic Arterial Smallest Diameter Measurements (made from centerline curved MPRs): Infrarenal aorta: 13 mm x 14 mm Right common iliac artery: 7 mm x 9 mm. There is moderate calcification. Left common iliac artery: 7 mm x 8 9 mm . There is Moderate calcification. There is minimal tortuosity of the bilateral common iliac arteries. Right external iliac artery: 7 mm x 6 mm. There is mild calcification. Left external iliac artery: 7 mm x 6 mm. There is Mild calcification. There is minimal tortuosity of the bilateral external iliac arteries. Right common femoral artery: 7 mm. There is mild calcification. Left common femoral artery: 5 mm. There is Moderate calcification. There is minimal tortuosity of the bilateral femoral arteries. Other findings: Minimal biapical paraseptal emphysema. Lungs are otherwise clear. No nodule or consolidation. No pleural effusion or pneumothorax. Heart size is normal. There is no pericardial effusion. Main pulmonary arteries normal in caliber. There is no thoracic lymphadenopathy. There is mild surface nodularity of liver with multiple subcentimeter areas of arterial hyperenhancement. The gallbladder is normal in size but moderately thick-walled with submucosal edema, but no evidence of acute cholecystitis. There is no biliary ductal dilation. Main portal vein is patent. Spleen, pancreas, and adrenal glands normal. Kidneys enhance symmetrically without hydronephrosis. Urinary bladder is normal. Prostate is unremarkable with mild dystrophic calcifications. There is no bowel obstruction. There is no evidence of appendicitis. No ascites or pneumoperitoneum. There are moderate atherosclerotic calcifications of a nonaneurysmal abdominal aorta. No suspicious osseous lesion. IMPRESSION: 1. Severe aortic valvular stenosis. 2. Aortic annulus, and abdominal aortic, common iliac, external iliac and femoral artery measurements in preparation for TAVR procedure as described above. Note the left common femoral artery is narrowed with a minimum diameter of 5 mm due to atherosclerotic calcification. 3. Aortic valve calcium score: Agatston 925, Volume 768 mm3. 4. Morphologic features suspicious for hepatic cirrhosis with multiple subcentimeter areas of arterial hyperenhancement that are incompletely characterized on this examination. Recommend further evaluation with liver MRI without intervenous contrast. 5. Diffuse gallbladder wall edema is likely secondary to underlying liver disease. Dictated by: Stone Arango MD The radiology attending physician has personally reviewed this study, and had reviewed and/or edited this written report and agrees with it. Electronically signed by: Hakeem Catalan M.D. Ernie Baldwin MD IM CT PROCEDURES Final Result documented in this encounter Visit Diagnoses Diagnosis Nonrheumatic aortic valve stenosis documented in this encounter Administered Medications Inactive Administered Medications - up to 3 most recent administrations Medication Order MAR Action Action Date Dose Rate Site ioversoL (OPTIRAY 350) syringe 125 mL 125 mL, intravenous, Once in imaging, contrast, Starting on 03/01/24 at 1518, For 1 dose Contrast Given 03/01/2024 3:40 PM CDT 119 mL documented in this encounter Orders Medications Ordered That Eric ht Not Have Been Administered Count Last Ordered Date First Ordered Date ioversoL (OPTIRAY 350) syringe 125 mL 1 documented in this encounter Care Teams Disc Sander Relationship Specialty Start Date End Date Carolyn Davis MD [address] [facility] [address] [id number] PCP - General 10/31/15 documented as of this encounter
--- OUTSIDE RECORDS SUMMARY | 2024-07-19 22:00 | XMS_ITS | Encounter Summary ---
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 Murray at [place]. CC: L hand ataxia and weakness concern for TIA Wyatt is a 58 year old man with hx of aortic stenosis presenting with left hand weakness and numbness. Sx resolved in 20 minutes upon presenting to ED and he is back to baseline. Exam suggestive of mild weakness in left hand, no pronator drift and ambulates without assistance. BP: 133/65 LKN:10:30 am NIHSS:0 CT: NAIA CTA: 35% stenosis of the right common carotid bifurcation. There is minimal stenosis of the left common carotid bifurcation. I discussed with OSH ED that his ABCD2 score is 3 and he is not a high risk TIA so will not need admission however he would need further stroke larsen in ED like A1c and LDL before dc with plans to get TTE as OP and stroke follow up. In the meantime, suggested continuing ASA 325 mg and increasing rusovastatin to 20 mg daily. Farhana Shine MD PGY-4 Neurology documented in this encounter Plan of Treatment Not on file documented as of this encounter Visit Diagnoses Not on filedocumented in this encounter Care Teams Window Trimmer Apprentice Relationship Specialty Start Date End Date Carolyn Davis MD [address] [place] [address] PCP - General 10/31/15 documented as of this encounter
--- OUTSIDE RECORDS SUMMARY | 2024-07-19 22:00 | XMS_ITS | Encounter Summary ---
Author Organization [facility] Address [address] [facility] [address] [place] [address] Phone Care Team Providers Care Food Service Aide Name Role Phone Carolyn Davis MD Primary Care Provider Encounter Details Date Type Department Care Team (Late st Contact Info) Description 02/26/2024 9:00 AM CDT Office Visit [facility] 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 Gender Identity Not on file Sexual Orientation Not on file documented as of this encounter Last Filed Vital Signs Vital Sign Reading Time Taken Comments Blood Pressure 118/60 02/26/2024 9:37 AM CDT Pulse 53 02/26/2024 9:37 AM CDT Temperature - - Respiratory Rate 18 02/26/2024 9:37 AM CDT Oxygen Saturation - - Inhaled Oxygen Concentration - - Weight 79.4 kg (175 lb) 02/26/2024 9:37 AM CDT Height 182.9 cm (6') 02/26/2024 9:37 AM CDT Body Mass Index 23.73 02/26/2024 9:37 AM CDT documented in this encounter Progress Notes * Re Hicks, HUY - 02/26/2024 9:00 AM CDT Cardiothoracic [facility] History & Physical [facility] Dr. Levar Morillo & Dr. Ernie Baldwin Wyatt Madden 1965 Reason for Consult: Aortic Stenosis Physician Requesting Consult: Tom De Jesus MD PCP: Carolyn Davis MD New or Established Patient: New Chief Complaint: shortness of breath and fatigue HPI: Wyatt Madden is 58 y.o. White male with [...] to proceed. Maurisio Flower NP Cardiothoracic Surgery [facility] [phone] :59 AM Ernie Baldwin MD [facility] Cardiothoracic Surgery [facility] Farm Rancher completed with [employer]. Farm Rancher variances may occur. Cosigned by Ernie Baldwin MD at 02/26/2024 3:14 PM CDT documented in this encounter Plan of Treatment Not on file documented as of this encounter Visit Diagnoses Diagnosis Aortic valve stenosis, etiology of cardiac valve disease unspecified- Primary documented in this encounter Care Teams Food Service Aide Relationship Specialty Start Date End Date Carolyn Davis MD [address] [address] PCP - General 10/31/15 documented as of this encounter
--- OUTSIDE RECORDS SUMMARY | 2024-07-19 22:00 | XMS_ITS | Encounter Summary ---
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
--- OUTSIDE RECORDS SUMMARY | 2024-07-19 22:00 | XMS_ITS | Encounter Summary ---
Author Organization [facility] Address [address] [place] [address] Care Team Providers Care Nail Puller Name Role Phone Carolyn Davis MD Primary Care Provider Encounter Details Date Type Department Care Team (Late st Contact Info) Description 02/17/2022 Orders Only [facility] Cardiology [address] [facility] [address] [place] [address] Case Cage MD [address] [facility] [address] [place] [address] Social History Tobacco Use Types Packs/Day Years Used Date Smoking Tobacco: Every Day Cigarettes Smokeless Tobacco: Never Alcohol Use Standard Drinks/Week Comments No 0 (1 standard drink = 0.6 oz pur e alcohol) Sex and Gender Information Value Date Recorded Sex Assigned at Not on file 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 Gender Identity Not on file Sexual Orientation Not on file documented as of this encounter Plan of Treatment Not on file documented as of this encounter Procedures Procedure Name Priority Date/Time Associated Diagnosis Comments CARDIOLOGY DOCUMENT SCAN Routine 02/17/2022 documented in this encounter Results * Cardiology Document Scan (02/17/2022) Anatomical Region Laterality Modality Other us Case Cage MD CV CARDIAC SERVICES PROC EDURES Final Result documented in this encounter Visit Diagnoses Not on filedocumented in this encounter Care Teams Nail Puller Relationship Specialty Start Date End Date Rostovtseva, Carolyn Y., MD [address] [facility] [address] [place] [address] PCP - General 10/31/15 documented as of this encounter
--- OUTSIDE RECORDS SUMMARY | 2024-07-19 22:00 | XMS_ITS | Encounter Summary ---
Author Organization [facility] Address [address] [place] [address] Care Team Providers Care Addiction Specialist Name Role Phone Raghu Corral MD Primary Care Provider Reason for Visit * Diagnostic Imaging (Routine) - Closed Specialty Diagnoses / Procedures Referred By Kary mata Referred To Contact Cardiology Imaging Diagnoses Murmur, heart Procedures Transthoracic Echo Complete W Doppler/CF Lizette Swift NP Phone: tel: fax: [facility] Medical [facility] Cardiology [address] [place] [address] Phone: tel: fax: Referral ID Status Reason Start Date Expiration Date Visits Re quested Visits Authorized [id number] Closed 07/19/2018 01/28/2020 1 1 Encounter Details Date Type Department Care Team (Late st Contact Info) Description 07/29/2018 3:00 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 Procedure [facility] Medical [facility] Cardiology [address] [facility] [address] [place] [id number] Murmur, heart Social History Tobacco Use Types Packs/Day Years Used Date Smoking Tobacco: Every Day Cigarettes Smokeless Tobacco: Never Alcohol Use Standard Drinks/Week Comments No 0 (1 standard drink = 0.6 oz pur e alcohol) Sex and Gender Information Value Date Recorded Sex Assigned at Not on file 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 Gender Identity Not on file Sexual Orientation Not on file documented as of this encounter Plan of Treatment Not on file documented as of this encounter Procedures Procedure Name Priority Date/Time Associated Diagnosis Comments TRANSTHORACIC ECHO (TTE) COMPLETE W DOPPLER/CF W CONTRAST Routine 07/29/2018 3:45 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 Murmur, heart documented in this encounter Results * TRANSTHORACIC ECHO (TTE) COMPLETE W DOPPLER/CF W CONTRAST (07/29/2018 3:45 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) Anatomical Region Laterality Modality Ultrasound 07/29/2018 2:06 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 Narrative 07/29/2018 4:33 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 [facility] [address] [id number] [address], [place] [address] P:[phone] P:[phone] Echocardiographic Report Patient Name: STEPHAN NUNEZ : [birth year] Study Date: 07/29/2018 2:06:40 PM Gender: M Tech: Location: [place] Ref.Physician: RAGHU CORRAL Height(Cm): 183 BSA: 2.29 Weight(Kg): 107.5 Heart Rate: 78 BP: 134/68 Quality: Definity contrast agent used to enhance endocardial border definition Order Physician: LIZETTE SWIFT Procedures: Echocardiographic Report: Transthoracic echocardiogram with complete 2D, M-Mode, color Doppler examination and Definity contrast. Indications: Murmur. Measurements: 2D/M Mode ?Doppler ? Measurement ?Value ?Normal Range ? Measurement ?Value ?Normal Range ? EF Mod ? 65 ?BEVERLY ?1.63 ? [ 2.00 - 4.00 ] cm2 ? EF MM ?77 ? [ 55 - 70 ] % ?AV Mean PG ? 11 ? mmHg ? LVIDd MM ? 5.47 ? [ 3.90 - 5.30 ] cm ? AV Peak Tesfaye ?2.40 ? m/s ? LVIDs MM ? 2.93 ? [ 2.30 - 3.90 ] cm ? AV Peak PG ? 23 ? mmHg ? LVPWd MM ? 0.98 ? [ 0.60 - 1.00 ] cm ? AV VTI ? 0.47 ? cm ? IVSd MM ?1.20 ? [ 0.60 - 0.90 ] cm ? LVOT Diam ?2.12 ? [ 1.70 - 2.10 ] cm ? LA Dimension MM ?4.57 ? [ 2.70 - 3.80 ] cm ? LVOT Peak Tesfaye ?1.11 ? [ 0.70 - 1.10 ] m/s ? AoR Diam MM ?2.92 ? [ 2.60 - 3.70 ] cm ? LVOT VTI ? 0.24 ? cm ? LA Volume Index ?21.00 ?[ 16.00 - 28.00 ] cc/m2 ?MV E Peak Tesfaye ?1.12 ? [ 0.60 - 1.30 ] m/s ? ACS MM ? 1.73 ? cm ? MV A Peak Tesfaye ?1.08 ? [ 0.40 - 0.80 ] m/s ? MV Decel Time ?259 ?[ 150 - 200 ] msec ? E' ? 0.12 ? E/E' ? 9 ? Findings: Interpretation Site: Exam was interpreted at [facility]. Left Ventricle: Normal left ventricular systolic function. No focal wall motion abnormalities. Normal left ventricular size. Definity contrast agent used to visually enhance endocardial wall motion and contractility. Lot Number: [id number]. Mild concentric left ventricular hypertrophy. Impaired diastolic relaxation Grade I. Ejection fraction is visually estimated at 60-65 %. Ejection fraction is measured at 65 %. Right Ventricle: Normal right ventricular size. [...] significant mitral stenosis by Doppler. Aortic Valve: Mild aortic stenosis. Peak gradient of 23.0 mmHg. Mean gradient of 11.0 mmHg. Valve area of 1.63 cm2. Aortic cusps appear mildly calcified. Trileaflet aortic valve. Trace aortic valve regurgitation. Tricuspid Valve: Normal appearance of the tricuspid valve. Trivial regurgitation in the tricuspid valve. Pulmonic Valve: Normal appearance of the pulmonic valve. No pulmonic stenosis. No evidence of pulmonic regurgitation. Pericardium: Normal pericardium with no significant pericardial effusion. Aorta: Normal aortic root. IVC: Normal size and normal respiratory collapse consistent with normal right atrial pressure (<5 mmHg). Pulmonary Artery: Normal pulmonary artery size. Conclusions: Normal left ventricular systolic function. No focal wall motion abnormalities. Normal left ventricular size. Definity contrast agent used to visually enhance endocardial wall motion and contractility. Lot Number: [id number]. Mild concentric left ventricular hypertrophy. Impaired diastolic relaxation Grade I. Ejection fraction is visually estimated at 60-65 %. Ejection fraction is measured at 65 %. The left atrium is normal in size. There is mild enlargement of left atrium. Mild aortic stenosis. Peak gradient of 23.0 mmHg. Mean gradient of 11.0 mmHg. Valve area of 1.63 cm2. Aortic cusps appear mildly calcified. Trileaflet aortic valve. Trace aortic valve regurgitation. Normal sinus rhythm. Electronically Signed By: Rommel Simmons MD 2018-07-29 16:33:53 VALVE TECHNICIAN CC: CC: Procedure Note Rommel Simmons MD - 07/29/2018 [facility] [address], [place] [address] [address], [place] [address] P:[phone] P:[phone] Echocardiographic Report Patient Name: STEPHAN NUNEZPatient ID: [id number] : [id number] Date: 07/29/2018 2:06:40 PM Gender: MAccession #: [id number] Tech: GMLocation: [place] Ref.Physician: Job CORRALight(Cm): 183 BSA: 2.29Weight(Kg): 107.5 Heart Rate: 78BP: 134/68 Quality: Definity contrast agent used to enhance endocardial borderdefinitionOrder Physician: LIZETTE SWIFT Procedures: Echocardiographic Report: Transthoracic echocardiogram with complete 2D, M-Mode, color Dopplerexamination and Definity contrast. Indications: Murmur. Measurements: 2D/M Mode Doppler Measurement Value Normal Range MeasurementValue Normal Range EF Mod 65 AVA1.63 [ 2.00 - 4.00 ] cm2 EF MM 77 [ 55 - 70 ] % AV Mean PG 11mmHg LVIDd MM 5.47 [ 3.90 - 5.30 ] cm AV Peak Vel2.40 m/s LVIDs MM 2.93 [ 2.30 - 3.90 ] cm AV Peak PG 23mmHg LVPWd MM 0.98 [ 0.60 - 1.00 ] cm AV VTI0.47 cm IVSd MM 1.20 [ 0.60 - 0.90 ] cm LVOT Diam2.12 [ 1.70 - 2.10 ] cm LA Dimension MM 4.57 [ 2.70 - 3.80 ] cm LVOT Peak Vel1.11 [ 0.70 - 1.10 ] m/s AoR Diam MM 2.92 [ 2.60 - 3.70 ] cm LVOT VTI0.24 cm LA Volume Index 21.00 [ 16.00 - 28.00 ] cc/m2 MV E Peak Vel1.12 [ 0.60 - 1.30 ] m/s ACS MM 1.73 cm MV A Peak Vel1.08 [ 0.40 - 0.80 ] m/s MV Decel Rvem794 [ 150 - 200 ] msec E'0.12 E/E' 9 Findings: Interpretation Site: Exam was interpreted at [facility]. Left Ventricle: Normal left ventricular systolic function. No focal wall motionabnormalities. Normal left ventricular size. Definity contrast agent used to visually enhanceendocardial wall motion and contractility. Lot Number: [id number]. Mild concentric leftventricular hypertrophy. Impaired diastolic relaxation Grade I. Ejection fraction isvisually estimated at 60-65 %. Ejection fraction is measured at 65 %. Right Ventricle: Normal right ventricular size. Normal right ventricular systolicfunction. Left Atrium: The left atrium is normal in size. There is mild enlargement of leftatrium. Right Atrium: The right atrium is normal in size. Atrial Septum: Normal atrial septum. Mitral Valve: Normal appearance of the mitral valve. Trivial regurgitation of the mitralvalve. There is no hemodynamically significant mitral stenosis by Doppler. Aortic Valve: Mild aortic stenosis. Peak gradient of 23.0 mmHg. Mean gradient of 11.0mmHg. Valve area of 1.63 cm2. Aortic cusps appear mildly calcified. Trileaflet aorticvalve. Trace aortic valve regurgitation. Tricuspid Valve: Normal appearance of the tricuspid valve. Trivial regurgitation in thetricuspid valve. Pulmonic Valve: Normal appearance of the pulmonic valve. No pulmonic stenosis. No evidenceof pulmonic regurgitation. Pericardium: Normal pericardium with no significant pericardial effusion. Aorta: Normal aortic root. IVC: Normal size and normal respiratory collapse consistent with normal rightatrial pressure (<5 mmHg). Pulmonary Artery: Normal pulmonary artery size. Conclusions: Normal left ventricular systolic function. No focal wall motionabnormalities. Normal left ventricular size. Definity contrast agent used to visually enhanceendocardial wall motion and contractility. Lot Number: [id number]. Mild concentric leftventricular hypertrophy. Impaired diastolic relaxation Grade I. Ejection fraction isvisually estimated at 60-65 %. Ejection fraction is measured at 65 %. The left atrium is normal in size. There is mild enlargement of leftatrium. Mild aortic stenosis. Peak gradient of 23.0 mmHg. Mean gradient of 11.0mmHg. Valve area of 1.63 cm2. Aortic cusps appear mildly calcified. Trileaflet aorticvalve. Trace aortic valve regurgitation. Normal sinus rhythm. 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 CV ECHO PROCEDURES Final Result documented in this encounter Visit Diagnoses Diagnosis Murmur, heart Undiagnosed cardiac murmurs documented in this encounter Administered Medications Inactive Administered Medications - up to 3 most recent administrations Medication Order MAR Action Action Date Dose Rate Site perflutren lipid (DEFINITY) 1.5 mL in sodium chloride 0.9% 10 mL syringe 1-10 mL, intravenous, Once in imaging, contrast, Starting on Khushbu 07/29/18 at 1521, For 1 dose Given 07/29/2018 3:55 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 1 mL documented in this encounter Care Teams Addiction Specialist Relationship Specialty Start Date End Date Raghu Corral MD [address] [place] [address] PCP - General 10/31/15 documented as of this encounter
--- OUTSIDE RECORDS SUMMARY | 2024-07-19 22:00 | XMS_ITS | Encounter Summary ---
Author Organization [facility] Healthcare Address [address] [place] [address] Care Team Providers Care Dehairer Name Role Phone Carolyn Davis MD Primary Care Provider Reason for Visit * Auth/Cert Specialty Diagnoses / Procedures Referred By Kary mata Referred To Contact Diagnoses Nonrheumatic aortic valve stenosis Nonrheumatic aortic valve stenosis [I35.0] Procedures LEFT HEART CATHETERIZATION WITH CORONARY ANGIOGRAPHY AND WITH OR WITHOUT LEFT VENTRICULOGRAM [id number] Referral ID Status Reason Start Date Expiration Date Visits Re quested Visits Authorized [id number] 1 1 Encounter Details Date Type Department Care Team (Latest Contact Info) Description 02/23/2024 7:13 AM CDT - 02/23/2024 12:42 PM CDT Hospital Encounter [facility] Cardiac Catheterization Lab [address] [place] [address] Tom De Jesus MD [facility] [address] Nonrheumatic aortic valve stenosis Discharge Disposition: Discharge to home or self care Social History Tobacco Use Types Packs/Day Years Used Date Smoking Tobacco: Every Day Cigarettes Smokeless Tobacco: Never Tobacco Cessation:Ready to Q uit: Yes; Counseling Given: Yes Alcohol Use Standard Drinks/Week [...] on file 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 Gender Identity Not on file Sexual Orientation Not on file documented as of this encounter Last Filed Vital Signs Vital Sign Reading Time Taken Comments Blood Pressure 131/58 02/23/2024 12:00 PM CDT Pulse 53 02/23/2024 12:15 PM CDT Temperature 36.6 ??C (97.8 ??F) 02/23/2024 8:10 AM CD T Respiratory Rate 16 02/23/2024 8:10 AM CDT Oxygen Saturation 96% 02/23/2024 12:15 PM CDT Inhaled Oxygen Concentration - - Weight 78 kg (172 lb) 02/23/2024 8:10 AM CDT Height 182.9 cm (6') 02/23/2024 8:10 AM CDT Body Mass Index 23.33 02/23/2024 8:10 AM CDT documented in this encounter Discharge Instructions * Discharge Instructions* Yari Villalpando RN - 02/23/2024 11:33 AM CDT Activity: - No heavy lifting (over 5 pounds) for 1 week or as directed by your recyclable products sorter. - No driving for 2 days after sheath removal. - No strenuous activity with affected leg for one week (i.e. Jogging, swimming, running, raking, shoveling snow or mowing lawn). - No exercising or excessive use of stairs for 1 week. Puncture Site: - Remove dressing next day. - Wash with soap and water daily in shower (to prevent infection, a shower is preferred to a tub bath for at least a week). - Do not apply any creams or lotions to puncture site. What to watch for: - Increased bruising - Swelling - Temperature greater than 100 degrees - Redness, drainage, or foul odor at puncture site - Pain that will not go away You may develop scar tissue at the puncture site. This is normal and will feel like a small lump under the skin. You may feel this bump for several days. If any of the above occur or you have any questions, please contact your Physician. Moderate Sedation WHAT YOU NEED TO KNOW: Moderate sedation, or conscious sedation, is medicine used during procedures to help you feel relaxed and calm. You will be awake and able to follow directions without anxiety or pain. You will remember little to none of the procedure. You may feel tired, weak, or unsteady on your feet after you get sedation. You may also have trouble concentrating or short-term memory loss. These symptoms should go away in 24 hours or less. DISCHARGE INSTRUCTIONS: Call 911 or have someone else call for any of the following: You have sudden trouble breathing. You cannot be woken. Seek care immediately if: You have a severe headache or dizziness. Your heart is beating faster than usual. Contact your healthcare provider if: You have a fever over 100*F You have nausea or are vomiting for more than 8 hours after the procedure. Your skin is itchy, swollen, or you have a rash. You have questions or concerns about your condition or care. Self-care: Have someone stay with you for 24 hours. This person can drive you to errands and help you do things around the house. This person can also watch for problems. Rest and do quiet activities. Stand up slowly to prevent dizziness and falls. Take short walks around the house with another person. Do not drive or use dangerous machines or tools for 48 hours. You may injure yourself or others. Examples include a lawnmower, saw, or drill. Do not make important decisions for 24 hours. For example, do not sign important papers or invest money. Drink liquids as directed. Liquids help flush the sedation medicine out of your body. Ask how much liquid to drink each day and which liquids are best for you. Eat small, frequent meals to prevent nausea and vomiting. Start with clear liquids such as juice orbroth. If you do not vomit after clear liquids, you can eat your usual foods. Do not drink alcohol or take medicines that make you drowsy. This includes medicines that help you sleep and anxiety medicines. Ask your healthcare provider if it is safe for you to take pain medicine. Follow up with your healthcare provider as directed: Write down your questions so you remember to ask them during your visits. [facility] TR band documented in this encounter Medications at Time of Discharge buPROPion SR (ZYBAN) 150 mg 12 hr tablet Take 1 tablet (150 mg total) by mouth 2 (two) times a day dilTIAZem CD 240 mg 24 hr capsule Take 1 capsule (240 mg total) by mouth every evening 01/11/2024 QUEtiapine XR (SEROquel XR) 50 mg tablet extended release 24 hr Take 1 tablet (50 mg total) by mouth 2 (two) times a day rOPINIRole (REQUIP) 4 mg tablet Take 1 tablet (4 mg total) by mouth 2 (two) times a day as needed 01/04/2024 aspirin (ASPIR-81) 81 mg tablet take 1 tablet by oral route every day 0 0 08/08/2015 06/15/2024 eszopiclone (LUNESTA) 3 mg tablet Take 1 tablet (3 mg total) by mouth nightly at bedtime 01/14/2024 03/30/2024 metoprolol (LOPRESSOR) 25 mg tablet Take 2 tablets (50 mg total) by mouth 2 (two) times a day 03/30/2024 rosuvastatin (CRESTOR) 20 mg tablet Take 1 tablet (20 mg total) by mouth daily 30 tablet 11 01/11/2024 03/21/2024 documented as of this encounter Discharge Disposition Disposition Code Departure Means Destination Comment s Discharge to home or self care documented in this encounter H&P Notes * Tom De Jesus MD - 02/23/2024 9:03 AM CDT General H&P HPI: [age] year old male with aortic stenosis, PSVT, hypertension, anxiety/panic attacks; tobacco abuse. Patient has aortic stenosis and recent surface echocardiogram from 01/21/2024 showed normal LV systolic function, severe with BEVERLY 0.8 cm2, mean gradient 47 mmHg. Prior transesophageal echocardiogram from 09/13/2021 showed trileaflet aortic valve. Patient was brought to the shop laborer today for preAVR cardiac catheterization Past Medical History: Diagnosis Date Atrial fibrillation (CMS/HCC) ([facility]) Depression Heart murmur HX OTHER MEDICAL Hypertension Nonrheumatic aortic (valve) stenosis Paroxysmal SVT (supraventricular tachycardia) ([facility]) Seizures ([facility]) 1 x 3-4 years ago d/t ETHO Sleep apnea uses cpap Past Surgical History: Procedure Laterality Date TYMPANOSTOMY TUBE PLACEMENT Medications Prior to Admission Medication Sig Dispense Refill Last Dose aspirin (ASPIR-81) 81 mg tablet take 1 tablet by oral route every day (Patient taking differently: Take 1 tablet (81 mg total) by mouth with evening meal) 0 0 02/22/2024 buPROPion SR (ZYBAN) 150 mg 12 hr tablet Take 1 tablet (150 mg total) by mouth 2 (two) times a day 02/23/2024 dilTIAZem CD 240 mg 24 hr capsule Take 1 capsule (240 mg total) by mouth every evening 02/22/2024 eszopiclone (LUNESTA) 3 mg tablet Take 1 tablet (3 mg total) by mouth nightly at bedtime 02/22/2024 metoprolol (LOPRESSOR) 25 mg tablet Take 2 tablets (50 mg total) by mouth 2 (two) times a day 02/23/2024 QUEtiapine XR (SEROquel XR) 50 mg tablet extended release 24 hr Take 1 tablet (50 mg total) by mouth 2 (two) times a day 02/23/2024 rOPINIRole (REQUIP) 4 mg tablet Take 1 tablet (4 mg total) by mouth nightly as needed 02/22/2024 rosuvastatin (CRESTOR) 20 mg tablet Take 1 tablet (20 mg total) by mouth daily (Patient taking differently: Take 1 tablet (20 mg total) by mouth every evening) 30 tablet 11 02/22/2024 No Known Allergies Social History Tobacco Use Smoking status: Every Day Current packs/day: 0.50 Types: Cigarettes Smokeless tobacco: Never Substance and Sexual Activity Drug use: Not Currently Types: Marijuana Sexual activity: Defer Alcohol Use: Not on file Family History Problem Relation Age of Onset Other Father Alive and well; Cancer Mother Cancer, unknown; Cause of : Cancer, unknown Review of Systems Objective Vitals: Arrival Vitals [02/23/24 0810] Temp 36.6 ??C (97.8 ??F) Pulse (!) 49 Resp 16 BP 111/62 SpO2 98 % Temp src Oral Heart Rate Source Pulse Oximetry Patient Position BP Location FiO2 (%) 24hr Min/Max: Temp Min: 36.6 ??C (97.8 ??F) Max: 36.6 ??C (97.8 ??F) Pulse Min: 49 Max: 49 BP Min: 111/62 Max: 111/62 Resp Min: 16 Max: 16 SpO2 Min: 98 % Max: 98 % Most Recent : Vitals: 02/23/24 0810 BP: 111/62 Pulse: (!) 49 Resp: 16 Temp: 36.6 ??C (97.8 ??F) SpO2: 98% No intake/output data recorded. No intake/output data recorded. Physical Exam General appearance - alert, no distress, oriented [...] rashes (on the exposed areas), no cyanosis Lab/Radiology/Diagnostic Review: Assessment Principal Problem: Nonrheumatic aortic valve stenosis Plan pre aortic valve replacement cardiac catheterization documented in this encounter Consult Notes * Eve Cota NP - 02/23/2024 11:56 AM CDT Cardiothoracic Surgery Brief Note Consult received for AVR. Patient scheduled for appointment with Dr. Baldwin this February 25 at 9AM for surgical evaluation, discussed with patient and spouse. Eve Cota MSN, RN, AGPCNP-C Cardiothoracic Surgery [facility] Office: documented in this encounter Miscellaneous Notes * Perioperative Nursing Note - Yari Villalpando RN - 02/23/2024 12:41 PM CDT Patient discharged via wheelchair. Discharge paperwork given to patient and patient verbalized understanding. IV removed at this time. Skin dry and intact. Vital signs stable. * Pre-Sedation Documentation - Tom De Jesus MD - 02/23/2024 9:02 AM CDT Sedation Plan ASA 2 - Mild systemic disease Sedation/Anesthesia Plan - moderate sedation Mallampati class: II. Risks, benefits, and alternatives discussed with patient. Last PO Intake: Patient NPO since midnight * Pre-Procedure Instructions - Michelle Stovall RN - 02/15/2024 9:26 AM CDT We are pleased that you and your doctor have chosen [facility] for your surgery. We hope that the following information will help make your visit a pleasant one. Surgery Date: 02/23/2024 Arrive at 6:30 A.M. [facility] Surgery [facility] (look for sign reading ???EM[facility] - SUR[facility]ERY CENTER?? ) [address] [place] [address] Before your surgery: Notify your doctor of ANY change in your health such as a cold, sore throat, fever, infection or a change in the problem for which you are having your surgery. Follow any instructions given to you by your doctor or surgeon. Check with your doctor if you need to STOP taking: If you are taking any of these medications, please contact your Physician to see if you need to stop it prior to your procedure and if so when. Aspirin (ordered by your doctor) One week before surgery STOP taking (unless directed otherwise by your Physician): All herbal/vitamin supplements Aspirin (not ordered by your doctor) Aleve, Advil, Motrin, Ibuprofen, Excedrin, Naproxen, Meloxicam, Diclofenac (oral & topical) Relafen, Celebrex, Ketorolac (Toradol) or other similar medications (Tylenol is okay unless it is not recommended by your physician). Fish Oil/[place] 3, Co Q 10, Cod Liver Oil, or other similar products. 24 hours before your surgery: No smoking, chew, vaping, alcohol, Marijuana, or recreational drug use. It is best to stop smoking now to improve your health. Hydrate yourself (water) - if no restrictions. Night before your surgery: DO NOT eat or drink anything after midnight including candy, mints, gum, chewable antacids, and cough drops. Follow surgeon's instructions for anti-bacterial shower night before and morning of surgery. Before Surgery your body must be thoroughly cleaned. Antibacterial Shower Instructions: Clean your hair using normal shampoo and/or conditioner products. Using an antibacterial soap (Example: Dove Antibacterial soap, Gold Dial, [place], Zest, Safeguard, Coast) wash your body thoroughly then rinse thoroughly and dry with a clean towel (use a different freshly washed towel for each shower). Dry with a clean towel. Do not use lotions, powders, creams, Vaseline, makeup, or hair products after either shower. Dress in clean pajamas or clothing. Do not shave below the neck on the night before or day of surgery The night before surgery sleep on clean linen Do Not let pets sleep with you Day of surgery: You may brush your teeth and rinse your mouth out. Repeat shower ONLY take these pills with a sip of water: ONLY take the medications your physician instructed you to take. Any questions please call your physician. You Should bring a complete, up-to-date, list of all medications on the day of your surgery/procedure. Including any over the counter medications or supplements. Please note on your medication list the last time you took each medication. The healthcare team will ask for this information. Wear comfortable clothes that will not be tight over the area of your surgery Do Not Glue Dentures or Partials In If you have an implantable device with a remote, bring the remote with you on the day of surgery. Leave all valuables and jewelry, (including all body piercing jewelry), hairpins, false eyelashes, contact lenses at home. If you use a CPAP machine, please bring it with you to wear after your surgery. Please bring your photo ID, insurance cards, and medication list (including all [id number] medications) with you. Prescriptions can be filled onsite prior to discharge. Please have your co-pay available. Check in at the Registration Desk. You may have 2 visitors (visitor must be over the age of 18). When you are discharged: You must have a responsible adult to drive you home, you will not be allowed to drive or take a cabhome. We recommend you have someone stay with you for 24 hours after your surgery. What to bring if you are spending the night with us: Bring toiletry items such as: robe, slippers, toothbrush, toothpaste, brush or comb. Bring contact lens, hearing aids, glass cases and denture container if you use any of these items. The hospital will provide you with a gown. Questions or concerns: If you have any questions or concerns regarding your procedure, or to cancel your surgery/procedure- contact your surgeon as soon as possible. If you have questions regarding your Pre-Admission Screen/Testing, please call at . documented in this encounter Plan of Treatment Not on file documented as of this encounter Procedures Procedure Name Priority Date/Time Associated Diagnosis Comments VASCULAR ACCESS US GUIDANCE Routine 02/23/2024 10:03 AM CDT Nonrheumatic aortic valve stenosis LEFT HEART CATHETERIZATION WITH CORONARY ANGIOGRAPHY AND WITH AND WITHOUT LEFT VENTRICULOGRAM Routine 02/23/2024 10:03 AM CDT Nonrheumatic aortic valve stenosis documented in this encounter Results * LEFT HEART CATHETERIZATION WITH CORONARY ANGIOGRAPHY AND WITH AND WITHOUT LEFT VENTRICULOGRAM, VASCULAR ACCESS US GUIDANCE (02/23/2024 10:03 AM CDT) Anatomical Region Laterality Modality X-Ray Angiograph y Addenda Addendum by Tom De Jesus MD on 02/23/2024 10:34 AM CDT LEFT HEART CATHETERIZATION AND CORONARY ANGIOGRAM ??REPORT DATE OF PROCEDURE: 02/23/24 INDICATION FOR PROCEDURE: ??Severe symptomatic aortic stenosis BRIEF CLINICAL HISTORY: Wyatt Madden is a 58 y.o. ??male ??with aortic stenosis, ??PSVT, ??hypertension, anxiety/panic attacks; tobacco abuse. Patient has aortic stenosis and recent surface echocardiogram from 01/21/2024 showed normal LV systolic function, severe with BEVERLY 0.8 cm2, mean gradient 47 mmHg. ??Prior transesophageal echocardiogram from 09/13/2021 showed trileaflet aortic valve. ??Patient was brought to the shop laborer today for pre aortic valve replacement cardiac catheterization. Benefits and risks of the procedure were discussed with the patient in depth, and informed consent was taken prior to the procedure. ??Risks of the procedure include but are not limited to vascular complications like groin hematoma, retroperitoneal bleed, vessel perforation; periprocedural PA, cardiac arrhythmias, stroke, contrast induced nephropathy, and . ?? After discussing all the benefits, risks and alternatives, patient was willing to proceed with the procedure. PROCEDURES PERFORMED: Selective left and right coronary angiogram Ultrasound-guided right radial access (CPT 22967) Moderate sedation-CPT code 80172 MODERATE SEDATION: Midazolam 2 mg , Fentanyl 50 mcg, start time ?0940 stop time ?? 1003, total direct osvi-[id number] monitoring of conscious sedation ?23 minutes (CPT 74448) TRAINED OBSERVER: Eve Jeffers RN was trained observer for moderate sedation. ACCESS SITE: ??Right radial artery PROCEDURE: ??After obtaining informed consent, patient was brought to the shop laborer and prepped and draped in the usual sterile manner. ??Time-out and immediate reassessment of the patient was performed. ??After local anesthesia with lidocaine, right radial artery access was taken with micropuncture needle followed by insertion of a 6 [place] sheath over a 0.035 inch wire. ??Selective left and right coronary angiography was performed using 5 F tig and 5F JR4 catheters. ??Orthogonal views were taken. ??Finally, radial band was deployed with good hemostasis. Patient tolerated procedure well without any immediate procedure related complications. Estimated blood loss was minimal. ??All specimens removed. The angiographic and other findings are given below. FINDINGS: LEFT MAIN CORONARY: ??Large caliber vessel, no significant focal stenosis. LEFT ANTERIOR DESCENDING ARTERY: ??Large caliber, tortuous vessel, tapers distally and wraps LV apex. ??No significant focal stenosis seen in the LAD or its diagonal branches LEFT CIRCUMFLEX ARTERY: ??Small to medium caliber nondominant vessel, gives rise to OM1 and OM2 branches without significant focal stenosis RIGHT CORONARY ARTERY: ??Large caliber, tortuous, dominant vessel, gives rise to medium to large caliber PDA and PLV branches. ??There is minimal diffuse plaque in the mid segment, otherwise no significant focal stenosis. LEFT VENTRICULOGRAM: ??Not performed HEMODYNAMIC ASSESSMENT: ??Opening pressure 101/59 mmHg, ??closing pressure 101/65 mmHg. CONCLUSIONS: Minor plaque mid RCA; otherwise no significant obstructive CAD. Severe (0.8 cm2, mean gradient 47 mmHg) on TTE from 01/21/2024. PLAN/RECOMMENDATIONS: ??Patient will undergo CT surgery evaluation for AVR. Voice recognition software was used to complete this document, therefore, coffee host variances may occur. Tom De Jesus MD, [facility] 02/23/24 Tom De Jesus MD CV CARDIAC CATH PROCEDURES Edite d Result - Final documented in this encounter Visit Diagnoses Diagnosis Nonrheumatic aortic valve stenosis- Primary Nonrheumatic aortic valve stenosis documented in this encounter Admitting Diagnoses Diagnosis Nonrheumatic aortic valve stenosis documented in this encounter Administered Medications Inactive Administered Medications - up to 3 most recent administrations Medication Order MAR Action Action Date Dose Rate Site sodium chloride 0.9% infusion 100 mL/hr, intravenous, Continuous, Starting on Thu02/23/24 at 1045, Till discharge documented in this encounter Discontinued Medications Medication Sig Discontinue Reason Start Date End Da te buPROPion SR (ZYBAN) 150 mg 12 hr tablet Take 1 tablet (150 mg total) by mouth 2 (two) times a day 12/18/2022 02/15/2024 magnesium oxide (MAG-OX) 250 mg (150.8 mg elemental) tabletIndications:hypoma gnesemia Take 1 tablet (250 mg total) by mouth daily 02/15/2024 multivitamin with minerals tablet Take 1 tablet by mouth daily 02/15/2024 naltrexone (DEPADE) 50 mg tablet Take 1 tablet (50 mg total) by mouth daily 02/15/2024 rOPINIRole (REQUIP) 1 mg tablet Take 2 tablets (2 mg total) by mouth daily 02/15/2024 diltiazem (TIAZAC) 300 mg 24 hr capsule Take 1 capsule (300 mg total) by mouth every evening 11/04/2017 02/15/2024 eszopiclone (LUNESTA) 2 mg tabletIndications:Insomn ia 3 mg nightly 07/16/2018 02/15/2024 griseofulvin (MIROSLAVA-PEG) 250 mg tablet Take 1 tablet (250 mg total) by mouth nightly Therapy completed 01/14/2024 02/23/2024 documented as of this encounter Historical Medications * This list may reflect changes made after this encounter. buPROPion SR (ZYBAN) 150 mg 12 hr tablet Take 1 tablet (150 mg total) by mouth 2 (two) times a day dilTIAZem CD 240 mg 24 hr capsule Take 1 capsule (240 mg total) by mouth every evening 01/11/2024 rOPINIRole (REQUIP) 4 mg tablet Take 1 tablet (4 mg total) by mouth 2 (two) times a day as needed 01/04/2024 griseofulvin (MIROSLAVA-PEG) 250 mg tablet Take 1 tablet (250 mg total) by mouth nightly 01/14/2024 02/23/2024 eszopiclone (LUNESTA) 3 mg tablet Take 1 tablet (3 mg total) by mouth nightly at bedtime 01/14/2024 03/30/2024 added in this encounter Active and Recently Administered Medications Times are shown in CDT. Continuous Medication Order 02/21/2024 02/22/2024 02/23/2024 sodium chloride 0.9% infusion 100 mL/hr, intravenous, Continuous, Starting on Thu02/23/24 at 1045, Till discharge 1045 (Due) PRN Medication Order 02/21/2024 02/22/2024 02/23/2024 fentaNYL (SUBLIMAZE) preservative free injection (CANCELED) Code/trauma/sedation medication, Starting on Thu02/23/24 at 0940, Intra-Procedure (CV) 0940 (Given - Provid er: Galilea Galvan RN)0953 (Given - Provider: Galilea Galvan RN) heparin 1,000 unit/mL injection (CANCELED) Code/trauma/sedation medication, Starting on Thu02/23/24 at 0956, Intra-Procedure (CV) 0956 (Given - Provid er: Galilea Galvan RN) heparin in 0.9% sodium chloride 1,000 units/500 mL (2 unit/mL) infusion (premix) (CANCELED) Code/trauma/sedation medication, Starting on Thu02/23/24 at 0943, Intra-Procedure (CV) 0943 (Given - Provid er: Tom De Jesus MD) ioversoL (OPTIRAY 350) injection (CANCELED) Code/trauma/sedation medication, Starting on Thu02/23/24 at 1007, Intra-Procedure (CV) 1007 (Given - Provid er: Tom De Jesus MD) lidocaine (XYLOCAINE) 10 mg/mL (1 %) injection (CANCELED) Code/trauma/sedation medication, Starting on Thu02/23/24 at 0953, Intra-Procedure (CV), Indications: Administration of Local Anesthesia 0953 (Given - Provid er: Tom De Jesus MD) midazolam (VERSED) 1 mg/mL preservative free injection (CANCELED) Administer over 2 Minutes, Code/trauma/sedation medication, Starting on Thu02/23/24 at 0940, Intra-Procedure (CV) 0940 (Given - Provid er: Galilea Galvan RN)0953 (Given - Provider: Galilea Galvan RN) nitroglycerin injection 200 mcg/mL D5W 10 mL (CANCELED) Code/trauma/sedation medication, Starting on Thu02/23/24 at 0955, Intra-Procedure (CV) 0955 (Given - Provid er: Tom De Jesus MD) sodium chloride 0.9% infusion (COMPLETED) Code/trauma/sedation continuous med, Starting on Thu02/23/24 at 0927, Intra-Procedure (CV) 0927 (New Bag - Prov ider: Galilea Galvan RN)1002 (Rate/Dose Change - Provider: Galilea Galvan RN) verapamiL (ISOPTIN) injection (CANCELED) Administer over 2 Minutes, Code/trauma/sedation medication, Starting on Thu02/23/24 at 0955, Intra-Procedure (CV) 0955 (Given - Provid er: Tom De Jesus MD) documented in this encounter Orders Medications Ordered That Eric ht Not Have Been Administered Count Last Ordered Date First Ordered Date fentaNYL (SUBLIMAZE) preserv ative free injection 1 02/23/2024 heparin 1,000 unit/mL injection 1 heparin in 0.9% sodium chlor mimi 1,000 units/500 mL (2 unit/mL) infusion (premix) 1 02/23/2024 ioversoL (OPTIRAY 350) injection 1 02/23/20 lidocaine (XYLOCAINE) 10 mg/ mL (1 %) injection 1 02/23/2024 midazolam (VERSED) 1 mg/mL p reservative free injection 1 02/23/2024 nitroglycerin injection 200 mcg/mL D5W 10 mL 1 02/23/2024 sodium chloride 0.9% infusion 2 02/23/2024 verapamiL (ISOPTIN) injection 1 02/23/2024 Discharge Count Last Ordered Date First Orde red Date DISCHARGE PATIENT 1 02/23/2024 documented in this encounter Care Teams Dehairer Relationship Specialty Start Date End Date Carolyn Davis MD [address] [facility] [address] [place] [address] PCP - General 10/31/15 documented as of this encounter
--- OUTSIDE RECORDS SUMMARY | 2024-07-19 22:00 | XMS_ITS | Encounter Summary ---
Author Organization [facility] Healthcare Address [address] [place] [address] Care Team Providers Care Blueprint Maker Name Role Phone Carolyn Davis MD Primary Care Provider Reason for Visit * Auth/Cert Specialty Diagnoses / Procedures Referred By Kary mata Referred To Contact Diagnoses Nonrheumatic aortic valve stenosis Nonrheumatic aortic valve stenosis [I35.0] Procedures LEFT HEART CATHETERIZATION WITH CORONARY ANGIOGRAPHY AND WITH OR WITHOUT LEFT VENTRICULOGRAM [id number] Referral ID Status Reason Start Date Expiration Date Visits Re quested Visits Authorized [id number] 1 1 Encounter Details Date Type Department Care Team (Latest Contact Info) Description 02/23/2024 9:30 AM CDT - 02/23/2024 11:00 AM CDT Surgery [facility] Cardiac Catheterization Lab [address] [place] [address] Tom De Jesus MD [address] [place] [id number] LEFT HEART CATHETERIZATION WITH CORONARY ANGIOGRAPHY AND WITH OR WITHOUT LEFT VENTRICULOGRAM [id number] Surgery Details Date/Time Status Location OR Service Patient Class Case Class Case Type Trauma Case? 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 - No driving for 2 days after [...] remember to ask them during your visits. [facility] TR band documented in this encounter Medications [...] aortic valve. Patient was brought to the manager cath lab today for preAVR cardiac catheterization Past Medical History: Diagnosis Date Atrial fibrillation (CMS/HCC) ([facility]) Depression Heart murmur HX OTHER MEDICAL Hypertension Nonrheumatic aortic (valve) stenosis Paroxysmal SVT (supraventricular tachycardia) ([facility]) Seizures ([facility]) 1 x 3-4 years ago [...] Eve Cota MSN, RN, AGPCNP-C Cardiothoracic Surgery [facility] Office: documented in this encounter Miscellaneous Notes [...] that you and your doctor have chosen [facility] for your surgery. We hope that the following information will help make your visit a pleasant one. Surgery Date: 02/23/2024 Arrive at 6:30 A.M. [facility] Surgery [facility] (look for sign reading ???EMERGENCY - SURGERY CENTER?? ) [address] [place] [address] Before your surgery: Notify your doctor of [...] is not recommended by your physician). Fish Oil/Tilden 3, Co Q 10, Cod Liver Oil, [...] soap (Example: Dove Antibacterial soap, Gold Dial, [place], Zest, Safeguard, Coast) wash your body [...] insurance cards, and medication list (including all [id number]-rkynanx medications) with you. Prescriptions can be filled [...] aortic valve. ??Patient was brought to the manager cath lab today for pre aortic valve replacement cardiac catheterization. Benefits and risks of the procedure were discussed with the patient in depth, and informed consent was taken prior to the procedure. ??Risks of the procedure include but are not limited to vascular complications like groin hematoma, retroperitoneal bleed, vessel perforation; periprocedural HI, cardiac arrhythmias, stroke, contrast induced nephropathy, and . ?? After discussing all the benefits, risks and alternatives, patient was willing to proceed with the procedure. PROCEDURES PERFORMED: Selective left and right coronary angiogram Ultrasound-guided right radial access (CPT 05569) Moderate sedation-CPT code 28993 MODERATE SEDATION: Midazolam 2 mg , Fentanyl 50 mcg, start time ?0940 stop time ?? 1003, total direct [id number] monitoring of conscious sedation ?23 minutes (CPT 69536) TRAINED OBSERVER: Eve Jeffers RN was trained observer for moderate sedation. ACCESS SITE: ??Right radial artery PROCEDURE: ??After obtaining informed consent, patient was brought to the manager cath lab and prepped and draped in the usual sterile manner. ??Time-out and immediate reassessment of the patient was performed. ??After local anesthesia with lidocaine, right radial artery access was taken with micropuncture needle followed by insertion of a 6 Kazakh sheath over a 0.035 inch wire. ??Selective [...] was used to complete this document, therefore, strip polisher variances may occur. Tom De Jesus MD, [facility] 02/23/24 Tom De Jesus MD [...] MAR Action Action Date Dose Rate Site fentaNYL (SUBLIMAZE) preservative free injection Code/trauma/sedation medication, Starting on Thu02/23/24 at 0940, Intra-Procedure (CV) Given 02/23/2024 9:53 AM CDT 25 mcg Given 02/23/2024 9:40 AM CDT 25 mcg heparin 1,000 unit/mL injection Code/trauma/sedation medication, Starting on Thu02/23/24 at 0956, Intra-Procedure (CV) Given 02/23/2024 9:56 AM CDT 5,000 Units heparin in 0.9% sodium chloride 1,000 units/500 mL (2 unit/mL) infusion (premix) Code/trauma/sedation medication, Starting on Thu02/23/24 at 0943, Intra-Procedure (CV) Given 02/23/2024 9:43 AM CDT 1,000 mL ioversoL (OPTIRAY 350) injection Code/trauma/sedation medication, Starting on Thu02/23/24 at 1007, Intra-Procedure (CV) Given 02/23/2024 10:07 AM CDT 43 mL lidocaine (XYLOCAINE) 10 mg/mL (1 %) injection Code/trauma/sedation medication, Starting on Thu02/23/24 at 0953, Intra-Procedure (CV), Indications: Administration of Local AnesthesiaIndications:Administra tion of Local Anesthesia Given 02/23/2024 9:53 AM CDT 2 mL Right Radial midazolam (VERSED) 1 mg/mL preservative free injection Administer over 2 Minutes, Code/trauma/sedation medication, Starting on Thu02/23/24 at 0940, Intra-Procedure (CV) Given 02/23/2024 9:53 AM CDT 1 mg Given 02/23/2024 9:40 AM CDT 1 mg nitroglycerin injection 200 mcg/mL D5W 10 mL Code/trauma/sedation medication, Starting on Thu02/23/24 at 0955, Intra-Procedure (CV) Given 02/23/2024 9:55 AM CDT 100 mcg sodium chloride 0.9% infusion Code/trauma/sedation continuous med, Starting on Thu02/23/24 at 0927, Intra-Procedure (CV) Rate/Dose Change 02/23/2024 10:02 AM CDT 100 mL/hr 100 mL/hr New Bag 02/23/2024 9:27 AM CDT 50 mL/hr 50 mL/hr sodium chloride 0.9% infusion 100 mL/hr, intravenous, Continuous, Starting on Thu02/23/24 at 1045, Till discharge verapamiL (ISOPTIN) injection Administer over 2 Minutes, Code/trauma/sedation medication, Starting on Thu02/23/24 at 0955, Intra-Procedure (CV) Given 02/23/2024 9:55 AM CDT 2. 5 mg documented in this encounter Discontinued Medications [...] Count Last Ordered Date First Ordered Date sodium chloride 0.9% infusion 1 02/23/2024 Discharge Count Last Ordered Date First Orde red Date DISCHARGE PATIENT 1 02/23/2024 documented in this encounter Care Teams Blueprint Maker Relationship Specialty Start Date End Date Carolyn Davis MD [address] [facility] [address] [place] [address] PCP - General 10/31/15 documented as of this encounter
--- OUTSIDE RECORDS SUMMARY | 2024-07-19 22:00 | XMS_ITS | Encounter Summary ---
Author Organization [facility] Address [address] [place] [address] Care Team Providers Care Vessel Scrapper Helper Name Role Phone Carolyn Davis MD Primary Care Provider Reason for Visit * Cardiology (Routine) - Closed Specialty Diagnoses / Procedures Referred By Kary mata Referred To Contact Diagnoses Mild aortic stenosis Procedures Transthoracic Echo Complete W Doppler/CF Tom Bal MD [address] [address] Phone: tel: fax: [facility] Referral ID Status Reason Start Date Expiration Date Visits Re quested Visits Authorized [id number] Closed 12/14/2019 06/24/2021 1 1 Encounter Details Date Type Department Care Team (Latest Contact Info) Description 08/17/2020 9:15 AM MANAGER INPATIENT Ancillary Procedure [facility] Medical [facility] Cardiology [address] [place] [address] Mild aortic stenosis Social History Tobacco Use Types Packs/Day Years Used Date Smoking Tobacco: Every Day Cigarettes Smokeless Tobacco: Never Alcohol Use Standard Drinks/Week Comments No 0 (1 standard drink = 0.6 oz pur e alcohol) Sex and Gender Information Value Date Recorded Sex Assigned at Not on file Legal Sex Male 1:59 AM MANAGER INPATIENT Gender Identity Not on file Sexual Orientation Not on file documented as of this encounter Last Filed Vital Signs Vital Sign Reading Time Taken Comments Blood Pressure - - Pulse - - Temperature 36.4 ??C (97.5 ??F) 08/17/2020 9:11 AM CS T Respiratory Rate - - Oxygen Saturation - - Inhaled Oxygen Concentration - - Weight - - Height - - Body Mass Index - - documented in this encounter Plan of Treatment Not on file documented as of this encounter Procedures Procedure Name Priority Date/Time Associated Diagnosis Comments TRANSTHORACIC ECHO (TTE) COMPLETE W DOPPLER/CF W CONTRAST Routine 08/17/2020 10:13 AM MANAGER INPATIENT Mild aortic stenosis documented in this encounter Results * TRANSTHORACIC ECHO (TTE) COMPLETE W DOPPLER/CF W CONTRAST (08/17/2020 10:13 AM MANAGER INPATIENT) Anatomical Region Laterality Modality Ultrasound 08/17/2020 8:58 AM MANAGER INPATIENT Narrative 08/17/2020 12:32 PM MANAGER INPATIENT [facility] Cardiology [address] [facility] [address] [address] [address], [place] [address] P:[phone] P:[phone] Echocardiographic Report Patient Name: STEPHAN NUNEZ : 1965 Study Date: 08/17/2020 8:58:30 AM Gender: M Tech: Location: [place] Ref.Provider: SHAYNA Height(Cm): 180 BSA: 2.29 Weight(Kg): [...] Findings: Interpretation Site: Exam was interpreted at [facility]. Left Ventricle: Normal left ventricular systolic function. [...] Signed By: Rommel Simmons MD 2020-08-17 12:32:52 MANAGER INPATIENT Procedure Note Rommel Simmons MD - 08/17/2020 [facility] Cardiology [address], [place] [address] [address], [place] [address] P:[phone] P:[phone] Echocardiographic Report Patient Name: STEPHAN NUNEZPatient ID: [id number] : [id number] Date: 08/17/2020 8:58:30 AM Gender: MAccession #: [id number] Tech: GMLocation: [place] Ref.Provider: Candet(Cm): 180 BSA: 2.29Weight(Kg): 109.77 Heart Rate: 68BP: [...] m/s ACS MM 1.25 cm MV Decel Acsg116 [ 150 - 200 ] msec PV Peak Vel0.56 [ 0.40 - 0.80 ] m/s E'0.16 E/E' 5 Findings: Interpretation Site: Exam was interpreted at [facility]. Left Ventricle: Normal left ventricular systolic function. [...] Signed By: Rommel Simmons MD 2020-08-17 12:32:52 MANAGER INPATIENT us Tom Bal MD CV ECHO PROCEDURES Final Result documented in this encounter Visit Diagnoses Diagnosis Mild aortic stenosis Aortic valve disorders documented in this encounter Administered Medications Inactive Administered Medications - up to 3 most recent administrations Medication Order MAR Action Action Date Dose Rate Site perflutren lipid (DEFINITY) 1.5 mL in sodium chloride 0.9% 10 mL syringe 1-10 mL, intravenous, Once in imaging, contrast, Starting on Thu08/17/20 at 0943, For 1 dose Given 08/17/2020 10:43 AM MANAGER INPATIENT 1 mL documented in this encounter Care Teams Vessel Scrapper Helper Relationship Specialty Start Date End Date Carolyn aDvis MD [address] [place] [address] PCP - General 10/31/15 documented as of this encounter
--- OUTSIDE RECORDS SUMMARY | 2024-07-19 22:00 | XMS_ITS | Encounter Summary ---
Author Organization [facility] Address [address] [place] [address] Care Team Providers Care Sprue Cutting Press Operator Name Role Phone Carolyn Davis MD Primary Care Provider Reason for Referral * Cardiology (Routine) - Closed Specialty Diagnoses / Procedures Referred By Contac t Referred To Contact Diagnoses PSVT (paroxysmal supraventricular tachycardia) (HCC) Palpitations Procedures M[facility] Mobile Cardiac Telemetry Event Monitor Tom De Jesus MD [address] [place] [address] Phone: tel: fax: [facility] Referral ID Status Reason Start Date Expiration Date Visits Re quested Visits Authorized [id number] Closed 08/20/2022 09/19/2023 1 1 CONSULTANT Reason for Visit * Reason Comments Hypertension 1 year follow up. Encounter Details Date Type Department Care Team (Latest Contact Info) Description 08/20/2022 11:15 AM SQL CONSULTANT Office Visit [facility] Cardiology [address] [place] [address] Tom De Jesus MD [address] [place] [address] Palpitations (Primary Dx); PSVT (paroxysmal supraventricular tachycardia) (CMS/HCC) (HCC); Moderate aortic stenosis; Essential hypertension; History of subdural hematoma; Tobacco abuse; History of alcohol abuse; Lipid screening Social History Tobacco Use Types Packs/Day Years Used Date Smoking Tobacco: Every Day Cigarettes Smokeless Tobacco: Never Tobacco Cessation:Ready to Q uit: Not Asked; Counseling Given: Not Answered Alcohol Use Standard Drinks/Week Comments No 0 (1 standard drink = 0.6 oz pur e alcohol) Sex and Gender Information Value Date Recorded Sex Assigned at Not on file Legal Sex Male 1:59 AM SQL CONSULTANT Gender Identity Not on file Sexual Orientation Not on file documented as of this encounter Last Filed Vital Signs Vital Sign Reading Time Taken Comments Blood Pressure 120/70 08/20/2022 11:36 AM SQL CONSULTANT Pulse 83 08/20/2022 11:36 AM SQL CONSULTANT Temperature - - Respiratory Rate - - Oxygen Saturation 95% 08/20/2022 11:36 AM SQL CONSULTANT Inhaled Oxygen Concentration - - Weight 103.4 kg (228 lb) 08/20/2022 11:36 AM SQL CONSULTANT Height 180.3 cm (5' 11 ) 08/20/2022 11:36 AM SQL CONSULTANT Body Mass Index 31.8 08/20/2022 11:36 AM SQL CONSULTANT documented in this encounter Progress Notes * Tom De Jesus MD - 08/20/2022 11:15 AM CST [facility] FOLLOW UP 08/20/2022 Chief Complaint Patient presents with Hypertension 1 year follow up. 56 y.o. male with PSVT, anxiety/panic attacks. Patient was seen in [facility] on 06/22/15 when he presented with [...] last office visit, patient was admitted to [facility] on 02/16/2022 after he apparently had [...] been on bupropion to facilitate smoking cessation. REVIEW OF SYSTEMS General ROS: negative for [...] by oral route every day 0 0 buPROPion SR (ZYBAN) 150 mg 12 hr tablet Take 1 tablet (150 mg total) by mouth 2 (two) times a day 60 tablet 11 diltiazem (TIAZAC) 300 mg 24 hr capsule 1 capsule (300 mg total) daily. 90 capsule 3 eszopiclone (LUNESTA) 2 mg tablet 3 mg nightly magnesium oxide (MAG-OX) 250 mg (150.8 mg elemental) tablet Take 250 mg by mouth daily metoprolol (LOPRESSOR) 25 mg tablet Take 25 mg by mouth 2 (two) times a day multivitamin with minerals tablet Take 1 tablet by mouth daily. naltrexone (DEPADE) 50 mg tablet Take 50 mg by mouth daily. QUEtiapine XR (SEROquel XR) 50 mg tablet extended release 24 hr Take 50 mg by mouth 2 (two) times aday rOPINIRole (REQUIP) 1 mg tablet Take 2 mg by mouth daily No current facility-administered medications for this [...] duplex-less than 50% stenosis bilateral ICA. 02/17/2022, [facility] Echo-normal LV size, EF 60-65%, grade 1 diastolic dysfunction, aortic stenosis, valve area 1.4 cm2,V max 2.62 m/sec, mean gradient 17 mmHg. 02/17/2022; Dr. Cage-[facility] Lipids-total cholesterol 227, HDL 34, triglycerides 258, LDL 142, glucose 155. 08/20/2022 PHYSICAL EXAM Vitals BP 120/70 (BP Location: Right arm, Patient Position: Sitting) Pulse 83 Ht 180.3 cm (5' 11 ) Wt 103.4 kg (228 lb) SpO2 95% BMI 31.80 kg/m?? General appearance - alert, no distress, [...] Diagnoses and all orders for this visit: Palpitations (Primary) - [facility] Mobile Cardiac Telemetry Event Monitor; Future PSVT (paroxysmal supraventricular tachycardia) (CMS/HCC) (HCC) - [facility] Mobile Cardiac Telemetry Event Monitor; Future Moderate aortic stenosis Essential hypertension History of subdural hematoma Tobacco abuse History of alcohol abuse Lipid screening - POCT lipid panel PLAN/RECOMMENDATIONS 56 y.o. male with PSVT, moderate aortic stenosis (BEVERLY 1.1 cm2 by planimetry from 09/13/2021 JAVIER, trileaflet valve on JAVIER), hypertension, anxiety/panic attacks; tobacco abuse. -patient has been experiencing episodes of palpitations. He does have history of PSVT. Will place 30 day event monitor to check for recurrent arrhythmias. Will consider referral to electrophysiology after ambulatory monitoring tech. Continue long-acting diltiazem for now. -previous hospitalization with seizures and fall in the setting of alcohol abuse. Found to have small subdural hematoma. Patient states that he has quit alcohol. He was advised for continue abstinence from alcohol. - patient has moderate aortic stenosis. He will need continued clinical and echocardiographic surveillance for progression of aortic stenosis. He will eventually need aortic valve replacement. - blood pressure is well controlled with current antihypertensives. -smoking cessation counseling was again done. Patient wants to continue bupropion to facilitate smoking cessation. - diet and lifestyle modification for dyslipidemia. -personally reviewed patient's hospital records from [facility] including notes, echo, imaging. Follow-up in 3 months or sooner if needed based on clinical course and ambulatory monitoring tech findings. Tom De Jesus MD CONSULTANT documented in this encounter Plan of Treatment Not on file documented as of this encounter Procedures Procedure Name Priority Date/Time Associated Diagnosis Comments POCT LIPID PANEL Routine 08/20/2022 11:5 0 AM SQL CONSULTANT Lipid screening documented in this encounter Results * [facility] Mobile Cardiac Telemetry Event Monitor (08/20/2022 12:21 PM SQL CONSULTANT) Anatomical Region Laterality Modality Other Narrative 09/26/2022 12:17 PM SQL CONSULTANT Images from the original result were not included. AMBULATORY CONSUMER CREDIT COUNSELOR REPORT Patient Name: Wyatt Madden Date of : 1965 ?? Requesting Physician: Tom De Jesus M.D. Date of interpretation: 09/26/22 Type of monitor : 30 Day Event Monitor Date of the study/Enrollment period: 08/20/2022 to 09/18/2022 Indication: Supraventricular tachycardia Quality of the study: ??Good. ??Total analysis time was 26 days, 22 hours and 32 minutes. Interpretation: Sinus rhythm with an average heart rate of 68 beats per minute. ??The minimum heart rate was 50 beats per minute and the maximum heart rate was 127 beats per minute. ?? There was no evidence of atrial fibrillation/flutter, SVT, pauses, heart blocks, or ventricular tachycardia. ?? No evidence of PACs. ?? PVC burden is less than 1%. There were 5 patient triggered events. All 5 episodes were symptom other than listed that correlated to sinus rhythm with a heart rate range of 54BPM to 127BPM without any arrhythmias. Conclusions: Sinus rhythm with an average heart rate of 68 beats per minute. ??The minimum heart rate was 50 beats per minute and the maximum heart rate was 127 beats per minute. ?? No significant arrhythmias. Patient reported symptoms correlated to sinus rhythm with a heart rate range of 54BPM to 127BPM without any arrhythmias. Trey Wooten M.D., [facility] 09/26/22 Voice recognition software was used to complete this document, therefore, bone density technician variances may occur. Procedure Note Trey Wooten MD - 09/26/2022 Images from the original note were not included. AMBULATORY CONSUMER CREDIT COUNSELOR REPORT Patient Name: Wyatt Madden Date of : 1965 Requesting Physician: Tom De Jesus M.D. Date of interpretation: 09/26/22 Type of monitor : 30 Day Event Monitor Date of the study/Enrollment period: 08/20/2022 to 09/18/2022 Indication: Supraventricular tachycardia Quality of the study: Good. Total analysis time was 26 days, 22 hoursand 32 minutes. Interpretation: Sinus rhythm with an average heart rate of 68 beats per minute. Theminimum heart rate was 50 beats per minute and the maximum heart rate [id number] beats per minute. There was no evidence of atrial fibrillation/flutter, SVT, pauses, heartblocks, or ventricular tachycardia. No evidence of PACs. PVC burden is less than 1%. There were 5 patient triggered events. All 5 episodes were symptom otherthan listed that correlated to sinus rhythm with a heart rate range [id number] to 127BPM without any arrhythmias. Conclusions: Sinus rhythm with an average heart rate of 68 beats per minute. Theminimum heart rate was 50 beats per minute and the maximum heart rate [id number] beats per minute. No significant arrhythmias. Patient reported symptoms correlated to sinus rhythm with a heart raterange of 54BPM to 127BPM without any arrhythmias. Trey Wooten M.D., [facility] 09/26/22 Voice recognition software was used to complete this document, therefore,bone density technician variances may occur. us Tom De Jesus MD CV CARDIAC SERVICES PROCEDURES F inal Result * POCT lipid panel (08/20/2022 11:50 AM SQL CONSULTANT) Cholesterol, POC 227 mg/dL HDL, POC 34 mg/dL Triglycerides, POC 258 mg/dL LDL Cholesterol POC 142 mg/dL Chol/HDL Ratio, POC 4.2 Non-HDL Cholesterol, POC 193 mg/dL Cholesterol Total, POC 227 mg/dL Capillary blood 08/20/2022 1 1:50 AM SQL CONSULTANT us Tom De Jesus MD POINT OF CARE TEST ORDERABLES Fi nal Result documented in this encounter Visit Diagnoses Diagnosis Palpitations- Primary PSVT (paroxysmal supraventricular tachycardia) (HCC) Paroxysmal supraventricular tachycardia Moderate aortic stenosis Aortic valve disorders Essential hypertension Unspecified essential hypertension History of subdural hematoma Tobacco abuse Tobacco use disorder History of alcohol abuse Nondependent alcohol abuse, in remission Lipid screening Screening for lipoid disorders PSVT (paroxysmal supraventricular tachycardia) (HCC) Paroxysmal supraventricular tachycardia Palpitations documented in this encounter Care Teams Sprue Cutting Press Operator Relationship Specialty Start Date End Date Carolyn Davis MD [address] [place] [address] PCP - General 10/31/15 documented as of this encounter
--- OUTSIDE RECORDS SUMMARY | 2024-07-19 22:00 | XMS_ITS | Encounter Summary ---
Author Organization [facility] Address [address] [place] [address] Care Team Providers Care Lumber Tying Machine Operator Name Role Phone Carolyn Davis MD Primary Care Provider Reason for Referral * Cardiology (Routine) - Closed Specialty Diagnoses / Procedures Referred By Contkemal t Referred To Contact Diagnoses Moderate aortic stenosis Procedures Transthoracic Echo Complete W Doppler/CF Tom Bal MD [address] [place] [address] Phone: tel: fax: [facility] Referral ID Status Reason Start Date Expiration Date Visits Re quested Visits Authorized [id number] Closed 08/29/2020 09/28/2021 1 1 NEERING DESIGN MANAGER Reason for Visit * Reason Comments Follow-up 8 mo follow up on PS VT, mild , HTN Encounter Details Date Type Department Care Team (Latest Contact Info) Description 08/29/2020 1:15 PM ENGINEERING DESIGN MANAGER Office Visit [facility] Cardiology [address] [place] [address] Tom Bal MD [address] [place] [address] Moderate aortic stenosis (Primary Dx); PSVT (paroxysmal supraventricular tachycardia) (CMS/HCC); Essential hypertension; Tobacco abuse Social History Tobacco Use Types Packs/Day Years Used Date Smoking Tobacco: Every Day Cigarettes Smokeless Tobacco: Never Alcohol Use Standard Drinks/Week Comments No 0 (1 standard drink = 0.6 oz pur e alcohol) Sex and Gender Information Value Date Recorded Sex Assigned at Not on file Legal Sex Male 1:59 AM ENGINEERING DESIGN MANAGER Gender Identity Not on file Sexual Orientation Not on file documented as of this encounter Last Filed Vital Signs Vital Sign Reading Time Taken Comments Blood Pressure 118/70 08/29/2020 1:13 PM ENGINEERING DESIGN MANAGER Pulse 70 08/29/2020 1:13 PM ENGINEERING DESIGN MANAGER Temperature - - Respiratory Rate - - Oxygen Saturation 98% 08/29/2020 1:13 PM ENGINEERING DESIGN MANAGER Inhaled Oxygen Concentration - - Weight 107.5 kg (237 lb) 08/29/2020 1:13 PM ENGINEERING DESIGN MANAGER Height 180.3 cm (5' 11 ) 08/29/2020 1:13 PM ENGINEERING DESIGN MANAGER Body Mass Index 33.05 08/29/2020 1:13 PM ENGINEERING DESIGN MANAGER documented in this encounter Progress Notes * Tom Bal MD - 08/29/2020 1:15 PM CST [facility] FOLLOW UP 08/29/2020 Chief Complaint Patient presents with ??? Follow-up 8 mo follow up on PSVT, mild , HTN 54 y.o. male with PSVT, anxiety/panic attacks. Patient was seen in [facility] on 06/22/15 when he presented [...] He wants to quit on his own. REVIEW OF SYSTEMS General ROS: negative for [...] ??? eszopiclone (LUNESTA) 2 mg tablet ??? magnesium oxide (MAG-OX) 250 mg (150.8 mg elemental) tablet Take 250 mg by mouth daily ??? metoprolol (LOPRESSOR) 25 mg tablet Take [...] calcified. Normal sinus rhythm. 08/17/2020- Dr. Simmons PHYSICAL EXAM Vitals BP 118/70 (BP Location: Left arm, Patient Position: Sitting) Pulse 70 Ht 180.3 cm (5' 11 ) Wt 107.5 kg (237 lb) SpO2 98% BMI 33.05 kg/m?? General appearance - alert, no distress, [...] normal rate, regular rhythm, distant heart sounds, soft systolic murmur Abdomen [...] Moderate aortic stenosis (Primary) - Transthoracic Echo Complete W Doppler/CF; Future PSVT (paroxysmal supraventricular tachycardia) ([facility]) Essential hypertension Tobacco abuse PLAN/RECOMMENDATIONS 54 y.o. male with PSVT, moderate aortic stenosis with BEVERLY 1.22 cm2 on recent echocardiogram, hypertension, anxiety/panic attacks; tobacco abuse. Currently stable cardiac status. Continue metoprolol and diltiazem. Symptoms of palpitations have resolved. Blood pressure is withinnormal limits. Patient has been essentially asymptomatic for his PSVT. If patient has recurrent symptomatic PSVT, then he will be referred to EP. Surveillance echocardiogram with Doppler in July 2021 for aortic stenosis before follow-up visit. Due to relatively younger age of onset of aortic stenosis, may consider doing JAVIER in future to rule out bicuspid aortic stenosis, unless valve is well visualized on surface echocardiogram. Smoking cessation counseling was again done. Patient wants to quit on his own. Patient states that if he fails to quit, may try Chantix in next few months. He will call our office. Diet and lifestyle modification for dyslipidemia. Counseling was also done regarding heart healthy diet, aerobic exercise, weight loss. Patient was advised to follow CDC and local health department guidelines including social distancing, utilizationof masks and other measures for prevention of COVID-19 infection. Patient verbalized understanding. Follow-up in 12 months or sooner if needed Tom Bal MD NEERING DESIGN MANAGER documented in this encounter Plan of Treatment Not on file documented as of this encounter Results * TRANSTHORACIC ECHO (TTE) COMPLETE W DOPPLER/CF W CONTRAST (08/16/2021 9:15 AM ENGINEERING DESIGN MANAGER) Anatomical Region Laterality Modality Ultrasound 08/16/2021 8:14 AM ENGINEERING DESIGN MANAGER Narrative 08/16/2021 1:22 PM ENGINEERING DESIGN MANAGER [facility] Cardiology [address] [id number] [address], [place] [address] P:[phone] P:[phone] Echocardiographic Report Patient Name: STEPHAN NUNEZ : 1965 Study Date: 08/16/2021 8:14:20 AM Gender: M Tech: Location: [place] Ref.Provider: TOM BAL Height(Cm): 180 BSA: 2.27 Weight(Kg): 107.5 [...] 3.80 ] cm ? LVOT Peak Tesfaye ?1.30 ? [ 0.70 - 1.10 ] [...] Findings: Interpretation Site: Exam was interpreted at [facility]. Left Ventricle: Normal left ventricular systolic [...] Signed By: Rommel Simmons MD 2021-08-16 13:22:03 ENGINEERING DESIGN MANAGER Procedure Note Rommel Simmons MD - 08/16/2021 [facility] Cardiology [address] [address] [address], [place] [address] P:[phone] P:[phone] Echocardiographic Report Patient Name: STEPHAN NUNEZPatient ID: [id number] : [id number] Date: 08/16/2021 8:14:20 AM Gender: MAccession #: [id number] Tech: GMLocation: [place] Ref.Provider: TOM BALHeight(Cm): 180 BSA: 2.27Weight(Kg): 107.5 Heart Rate: [...] 0.40 - 0.80 ] m/s MV Decel [id number] [ 150 - 200 ] msec PV Peak Vel1.13 [ 0.40 - 0.80 ] m/s E'0.10 E/E' 9 Findings: Interpretation Site: Exam was interpreted at [facility]. Left Ventricle: Normal left ventricular systolic [...] Signed By: Rommel Simmons MD 2021-08-16 13:22:03 ENGINEERING DESIGN MANAGER Tom Bal MD CV ECHO PROCEDURES Final Result documented in this encounter Visit Diagnoses Diagnosis Moderate aortic stenosis- Primary Aortic valve disorders PSVT (paroxysmal supraventricular tachycardia) (HCC) Paroxysmal supraventricular tachycardia Essential hypertension Unspecified essential hypertension Tobacco abuse Tobacco use disorder Moderate aortic stenosis Aortic valve disorders documented in this encounter Discontinued Medications Medication Sig Discontinue Reason Start Date End Da te metFORMIN XR (GLUCOPHAGE XR) 500 mg 24 hr tablet TK 2 TS PO QD Therapy completed 06/23/2018 08/29/2020 documented as of this encounter Historical Medications * This list may reflect changes made after this encounter. magnesium oxide (MAG-OX) 250 mg (150.8 mg elemental) tabletIndications :hypomagnesemia Take 1 tablet (250 mg total) by mouth daily 02/15/2024 added in this encounter Care Teams Lumber Tying Machine Operator Relationship Specialty Start Date End Date Carolyn Davis MD [address] [facility] [address] [place] [address] PCP - General 10/31/15 documented as of this encounter
--- OUTSIDE RECORDS SUMMARY | 2024-07-19 22:00 | XMS_ITS | Encounter Summary ---
Author Organization [facility] Address [address] [place] [address] Care Team Providers Care Manager Beauty Name Role Phone Carolyn Davis MD Primary Care Provider Reason for Referral * MRI/CAT/PET Scan (Routine) - Pending Review Specialty Diagnoses / Procedures Referred By Kary mata Referred To Contact Radiology Diagnoses Diagnosis unknown Procedures Neuro CT Outside Consult Farhana Shine MD [address] [place] [address] Phone: tel: fax: Referral ID Status Reason Start Date Expiration Date V isits Requested Visits Authorized [id number] Pending Review 03/08/2024 04/07/2025 1 1 Reason for Visit * MRI/CAT/PET Scan (Routine) - Pending Review Specialty Diagnoses / Procedures Referred By Kary mata Referred To Contact Radiology Diagnoses Diagnosis unknown Procedures Neuro CT Outside Consult Farhana Shine MD [address] [place] [address] Phone: tel: fax: Referral ID Status Reason Start Date Expiration Date V isits Requested Visits Authorized [id number] Pending Review 03/08/2024 04/07/2025 1 1 Encounter Details Date Type Department Care Team (Latest Contact Info) Description 03/08/2024 6:51 PM CDT - 03/08/2024 11:59 PM CDT Hospital Encounter [facility] [address] [place] [address] Diagnosis unknown Discharge Disposition: Discharge to home or self [...] on file Legal Sex Male 1:59 AM LGSW Gender Identity Not on file Sexual Orientation [...] needed 01/04/2024 enoxaparin (LOVENOX) 80 mg/0.8 mL syringeIndications:Me chanical [...] Procedure Name Priority Date/Time Associated Diagnosis Comments NEURO CT OUTSIDE CONSULT Routine 03/08/2024 6:51 PM CDT Diagnosis unknown documented in this encounter Results * Neuro CT Outside Consult (03/08/2024 6:51 PM CDT) Anatomical Region Laterality Modality N/A Computed Tomogra phy 03/09/2024 1:31 PM CDT Impressions 03/10/2024 8:01 AM CDT 1. ??Approximately 35% stenosis of the right common carotid bifurcation. 2. ??2 incidental cavitary pulmonary nodules, recommend follow-up as below. ??The differential diagnosis for these lesions includes adenocarcinoma, metastasis, and eosinophilic granuloma. Recommend follow up of the Incidental cavitary lung nodule Additional Imaging in [address] The findings, conclusions and recommendations within this report do not replace the initial findings, conclusions ??and recommendations made at the facility where the study was performed based upon the imaging and clinical condition at that time. ??Comparison with the prior report and clinical history is necessary. ??The provided images may or may not represent the [place] source data set and thus may contain changes that may lower the accuracy of this second-opinion interpretation. Dictated by: Nguyễn Deluna M.D. The radiology attending physician has personally reviewed this study, and had reviewed and/or edited this written report and agrees with it. Electronically signed by: Brayan Mota M.D. Narrative 03/10/2024 8:01 AM CDT EXAMINATION: RADIOLOGY CONSULTATION ON OUTSIDE IMAGING STUDY STUDY INITIALLY PERFORMED: 03/08/2024 at [facility]. TYPE OF STUDY: Multiple CT angiography images of the head and neck with contrast are provided at the time of this interpretation. CONTRAST ROUTE: Contrast was administered via the intravenous route. The protocol was adequate to address the clinical question. The outside final report was not available at the time of this second opinion interpretation. TYPE OF CONSULTATION: Consult on outside imaging study with images submitted through Outside Image Sharing Service DATE OF CONSULTATION: 03/09/2024 8:37 AM EXAMINATION: 1. Computed tomography angiography (CTA) of the head with contrast 2. Computed tomography angiography (CTA) of the neck with contrast HISTORY: 58-year-old male, history of aortic stenosis, atrial fibrillation, planned surgical replacement of the aortic valve. COMPARISON: No head and neck imaging available, however some findings are compared to the CT TAVR performed 03/01/2024. FINDINGS: HEAD: Topogram demonstrates no lytic lesions or fractures. ??Ventricles are of normal size and morphology. No mass effect or midline shift is present. The cueva-white matter differentiation is normal. The visualized portions of the orbits are normal. The visualized portions of the mastoids are normal. The visualized portions of the paranasal sinuses are normal. No fractures are identified. NECK: There are 2 incidental pulmonary nodules found in the right upper lobe. ??Both have a lucent center and require follow-up with a chest CT in 3 months. ??One is best seen series 5, image 49. ??Another is seen series 5, image 71. Review of the topogram demonstrates no abnormality. Scattered subcentimeter lymph nodes are seen in the neck. None are pathologically enlarged. The muscles of the neck are normal. Fascial planes are preserved and the deep spaces of the neck are normal. The visualized airway is widely patent. The base of the skull and the temporal bones are normal. Limited views of the brain including the cerebellum and brainstem are normal. The visualized portions of the orbits are normal. There is mild spinal canal stenosis at the level of C5-C6.. There is disc height loss most prominent at the C5-C6 level. There is severe left and moderate right C5-C6 and moderate right C6-C7 neural foraminal stenosis. CTA: There is approximately 35% stenosis of the right common carotid bifurcation. ??There is minimal stenosis of the left common carotid bifurcation. The right ICA clinoid segment demonstrates significant stenosis. ??The left ICA carotid segment demonstrates minimal stenosis. The bilateral posterior communicating arteries are difficult to visualize, likely congenital. The visualized aortic arch appears normal with normal configuration of the great vessels. The innominate artery and both subclavian arteries are normal in course and caliber. The anterior and middle cerebral arteries are normal. The vertebral arteries are codominant. The basilar artery is normal. The posterior cerebral arteries are normal. There is no aneurysm or vascular malformation identified. Procedure Note Brayan Mota MD PhD - 03/10/2024 EXAMINATION: RADIOLOGY CONSULTATION ON OUTSIDE IMAGING STUDY STUDY INITIALLY PERFORMED: 03/08/2024 at [facility]. TYPE OF STUDY: Multiple CT angiography images of the head and neck with contrast are provided at the time of this interpretation. CONTRAST ROUTE: Contrast was administered via the intravenous route. The protocol was adequate to address the clinical question. The outside final report was not available at the time of this second opinion interpretation. TYPE OF CONSULTATION: Consult on outside imaging study with images submitted through Outside Image Sharing Service DATE OF CONSULTATION: 03/09/2024 8:37 AM EXAMINATION: 1. Computed tomography angiography (CTA) of the head with contrast 2. Computed tomography angiography (CTA) of the neck with contrast HISTORY: 58-year-old male, history of aortic stenosis, atrial fibrillation, planned surgical replacement of the aortic valve. COMPARISON: No head and neck imaging available, however some findings are compared to the CT TAVR performed 03/01/2024. FINDINGS: HEAD: Topogram demonstrates no lytic lesions or fractures. Ventricles are of normal size and morphology. No mass effect or midline shift is present. The cueva-white matter differentiation is normal. The visualized portions of the orbits are normal. The visualized portions of the mastoids are normal. The visualized portions of the paranasal sinuses are normal. No fractures are identified. NECK: There are 2 incidental pulmonary nodules found in the right upper lobe. Both have a lucent center and require follow-up with a chest CT in 3 months. One is best seen series 5, image 49. Another is seen series 5, image 71. Review of the topogram demonstrates no abnormality. Scattered subcentimeter lymph nodes are seen in the neck. None are pathologically enlarged. The muscles of the neck are normal. Fascial planes are preserved and the deep spaces of the neck are normal. The visualized airway is widely patent. The base of the skull and the temporal bones are normal. Limited views of the brain including the cerebellum and brainstem are normal. The visualized portions of the orbits are normal. There is mild spinal canal stenosis at the level of C5-C6.. There is disc height loss most prominent at the C5-C6 level. There is severe left and moderate right C5-C6 and moderate right C6-C7 neural foraminal stenosis. CTA: There is approximately 35% stenosis of the right common carotid bifurcation. There is minimal stenosis of the left common carotid bifurcation. The right ICA clinoid segment demonstrates significant stenosis. The left ICA carotid segment demonstrates minimal stenosis. The bilateral posterior communicating arteries are difficult to visualize, likely congenital. The visualized aortic arch appears normal with normal configuration of the great vessels. The innominate artery and both subclavian arteries are normal in course and caliber. The anterior and middle cerebral arteries are normal. The vertebral arteries are codominant. The basilar artery is normal. The posterior cerebral arteries are normal. There is no aneurysm or vascular malformation identified. IMPRESSION: 1. Approximately 35% stenosis of the right common carotid bifurcation. 2. 2 incidental cavitary pulmonary nodules, recommend follow-up as below. The differential diagnosis for these lesions includes adenocarcinoma, metastasis, and eosinophilic granuloma. Recommend follow up of the Incidental cavitary lung nodule Additional Imaging in [address] The findings, conclusions and recommendations within this report do not replace the initial findings, conclusions and recommendations made at the facility where the study was performed based upon the imaging and clinical condition at that time. Comparison with the prior report and clinical history is necessary. The provided images may or may not represent the [place] source data set and thus may contain changes that may lower the accuracy of this second-opinion interpretation. Dictated by: Nguyễn Deluna M.D. The radiology attending physician has personally reviewed this study, and had reviewed and/or edited this written report and agrees with it. Electronically signed by: Brayan Mota M.D. Farhana Shine MD IMG CT PROCEDURES Final Result documented in this encounter Visit Diagnoses Diagnosis Diagnosis unknown documented in this encounter Care Teams Manager Beauty Relationship Specialty Start Date End Date Carolyn Davis MD [address] [facility] [address] [place] [address] PCP - General 10/31/15 documented as of this encounter
--- OUTSIDE RECORDS SUMMARY | 2024-07-19 22:00 | XMS_ITS | Encounter Summary ---
Author Organization [facility] Address [address] [place] [address] Care Team Providers Care Cd Manufacturing Supervisor Name Role Phone Carolyn Davis MD Primary Care Provider Reason for Visit * Reason Comments Follow-up PSVT- Aortic stenosi s- 1 year fu Encounter Details Date Type Department Care Team (Latest Contact Info) Description 08/28/2021 1:45 PM INTERFACE CONTROL OFFICER Office Visit [facility] Cardiology [address] [facility] [address] [place] [address] Tom De Jesus MD [address] [address] Moderate aortic stenosis (Primary Dx); PSVT (paroxysmal supraventricular tachycardia) (CMS/HCC) (HCC); Essential hypertension; Tobacco abuse; Lipid screening Social History Tobacco Use Types Packs/Day Years Used Date Smoking Tobacco: Every Day Cigarettes Smokeless Tobacco: Never Alcohol Use Standard Drinks/Week Comments No 0 (1 standard drink = 0.6 oz pur e alcohol) Sex and Gender Information Value Date Recorded Sex Assigned at Not on file Legal Sex Male 1:59 AM INTERFACE CONTROL OFFICER Gender Identity Not on file Sexual Orientation Not on file documented as of this encounter Last Filed Vital Signs Vital Sign Reading Time Taken Comments Blood Pressure 122/78 08/28/2021 1:49 PM INTERFACE CONTROL OFFICER Pulse 78 08/28/2021 1:49 PM INTERFACE CONTROL OFFICER Temperature - - Respiratory Rate - - Oxygen Saturation 97% 08/28/2021 1:49 PM INTERFACE CONTROL OFFICER Inhaled Oxygen Concentration - - Weight 108.4 kg (239 lb) 08/28/2021 1:49 PM INTERFACE CONTROL OFFICER Height 180.3 cm (5' 11 ) 08/28/2021 1:49 PM INTERFACE CONTROL OFFICER Body Mass Index 33.33 08/28/2021 1:49 PM INTERFACE CONTROL OFFICER documented in this encounter Ordered Prescriptions Prescription Sig Dispense Quantity Refills Last Filled Start Date End Date buPROPion SR (ZYBAN) 150 mg 12 hr tablet Take 1 tablet (150 mg total) by mouth 2 (two) times a day 60 tablet 11 08/28/2021 12/18/2022 documented in this encounter Progress Notes * Tom De Jesus MD - 08/28/2021 1:45 PM CST [facility] FOLLOW UP 08/28/2021 Chief Complaint Patient presents with ??? Follow-up PSVT- Aortic stenosis- 1 year fu 55 y.o. male with PSVT, anxiety/panic attacks. Patient was seen in [facility] on 06/22/15 when he presented [...] willing to try pharmacotherapy assisted smoking cessation. REVIEW OF SYSTEMS General ROS: negative for - Fever, chills, fatigue Psychological ROS: Situational anxiety Ophthalmic ROS: negative for - loss of vision ENT ROS: negative for - epistaxis, headaches Respiratory ROS: negative for - cough Cardiovascular ROS: negative for - chest pain; positive for dyspnea on exertion Gastrointestinal ROS: negative for - abdominal pain [...] oral route every day 0 0 ??? diltiazem (TIAZAC) 300 mg 24 hr capsule 1 capsule (300 mg total) daily. 90 capsule 3 ??? eszopiclone (LUNESTA) 2 mg tablet 3 mg ??? magnesium oxide (MAG-OX) 250 mg (150.8 [...] mouth 3 (three) times a day. ??? buPROPion SR (ZYBAN) 150 mg 12 hr [...] Lipids-total cholesterol 297, HDL?, triglycerides? 650. 08/28/2021 PHYSICAL EXAM Vitals BP 122/78 (BP Location: Right arm, Patient Position: Sitting) Pulse 78 Ht 180.3 cm (5' 11 ) Wt 108.4 kg (239 lb) SpO2 97% BMI 33.33 kg/m?? General appearance - alert, no distress, [...] murmur at base Abdomen - soft, nontender, nondistended, bowel sounds present Neurological - alert, oriented, normal speech, no gross motor deficits Musculoskeletal - no major deformity, no amputations Extremities - no pedal edema, no clubbing or cyanosis Skin - no rashes (on the exposed areas), no cyanosis ASSESSMENT Diagnoses and all orders for this visit: Moderate aortic stenosis (Primary) PSVT (paroxysmal supraventricular tachycardia) (CMS/HCC) (HCC) Essential hypertension Tobacco abuse Other orders - buPROPion SR (ZYBAN) 150 mg 12 hr tablet; Take 1 tablet (150 mg total) by mouth 2 (two) times a day PLAN/RECOMMENDATIONS 55 y.o. male with PSVT, moderate aortic stenosis with AVA1.28 cm2 on 08/16/2021 echocardiogram, hypertension, anxiety/panic attacks; tobacco abuse. Patient has dyspnea on moderate exertion. Recent echo showed moderate aortic stenosis. Due to relatively younger age of onset of aortic stenosis, will proceed with JAVIER to rule out bicuspid aortic stenosis. If patient has bicuspid aortic valve, then he will need CT imaging of the chest to rule out any associated aortopathy. Symptoms of palpitations have resolved. Continue metoprolol, and diltiazem. Patient has been essentially asymptomatic for his PSVT. If patient has recurrent symptomatic PSVT, then he will be referredto EP. Blood pressure is well controlled with current antihypertensives. Smoking cessation counseling was again done. Patient wants try bupropion to facilitate smoking cessation. Diet and lifestyle modification for dyslipidemia. Follow-up in 12 months or sooner if needed based on clinical course and JAVIER findings. Tom De Jesus MD RFACE CONTROL OFFICER documented in this encounter Plan of Treatment Not on file documented as of this encounter Procedures Procedure Name Priority Date/Time Associated Diagnosis Comments POCT LIPID PANEL Routine 08/28/2021 2:45 PM INTERFACE CONTROL OFFICER Lipid screening documented in this encounter Results * POCT lipid panel (08/28/2021 2:45 PM INTERFACE CONTROL OFFICER) Cholesterol, POC 297 mg/dL HDL, POC N/A mg/dL Triglycerides, POC >650 mg/dL LDL Cholesterol POC N/A mg/dL Chol/HDL Ratio, POC N/A Non-HDL Cholesterol, POC N/A mg/dL Cholesterol Total, POC 297 mg/dL Capillary blood 08/28/2021 2 :45 PM INTERFACE CONTROL OFFICER us Tom De Jesus MD POINT OF CARE TEST ORDERABLES Fi nal Result documented in this encounter Visit Diagnoses Diagnosis Moderate aortic stenosis- Primary Aortic valve disorders PSVT (paroxysmal supraventricular tachycardia) (HCC) Paroxysmal supraventricular tachycardia Essential hypertension Unspecified essential hypertension Tobacco abuse Tobacco use disorder Lipid screening Screening for lipoid disorders documented in this encounter Discontinued Medications Medication Sig Discontinue Reason Start Date End Da te buPROPion XL (WELLBUTRIN XL) 150 mg 24 hr tablet Take 300 mg by mouth daily. 08/28/2021 documented as of this encounter Care Teams Cd Manufacturing Supervisor Relationship Specialty Start Date End Date Carolyn Davis MD [address] [facility] [address] [place] [id number] PCP - General 10/31/15 documented as of this encounter
--- OUTSIDE RECORDS SUMMARY | 2024-07-19 22:00 | XMS_ITS | Encounter Summary ---
Author Organization [facility] Address [address] [place] [address] Care Team Providers Care Feed Mixer Helper Name Role Phone Carolyn Davis MD Primary Care Provider Reason for Referral * Procedure (Routine) - Canceled Specialty Diagnoses / Procedures Referred By Kary mata Referred To Contact Cardiology Diagnoses Nonrheumatic aortic valve stenosis Tom De Jesus MD [address] [address] Phone: tel: fax: [facility] Medical [facility] Cardiology [address] [place] [address] Phone: tel: fax: Referral ID Status Reason Start Date Expiration Date Visits Requested Visits Authorized [id number] Canceled Specialty Services Required 01/29/2024 02/27/2025 1 1 Question Answer Please select the performing region: [facility] [[id number]] Please select the performing department: [facility] CARD CH MRYVL [[id number]] # of visits: 1 Comments PROCEDURE/TEST ORDERED:[facility] LOCATION: [facility] DATE OF SERVICE: 02/22 INSURANCE:[facility] DIAGNOSIS:severe ORDERING PROVIDER:Neal ADDITIONAL DETAILS: Encounter Details Date Type Department Care Team (Late st Contact Info) Description 01/26/2024 Telephone [facility] Cardiology [address] [place] [address] Christine Cope, HUY [address] [place] [address] Social History Tobacco Use Types Packs/Day Years [...] on file Legal Sex Male 1:59 AM DBA MANAGER Gender Identity Not on file Sexual Orientation Not on file documented as of this encounter Miscellaneous Notes * Addendum Note - Laura Rhoades RN - 01/29/2024 9:36 AM CDTAddended by: LAURA RHOADES on: 01/29/2024 09:36 AM Modules accepted: Orders * Telephone Encounter - Laura Rhoades RN - 01/29/2024 9:27 AM CDT KAMRON Spoke with pt, reviewed message from regarding echo results. Scheduled pt for LHC at [facility] on 829. Reviewed instructions and mailed pt a copy as well. Pt would like to go to for his labs-orders sent. * Telephone Encounter - Laura Rhoades RN - 01/28/2024 10:34 AM CDT Called pt and LM on reviewing message from CK and reviewing echo results. Discussed the need to schedule LHC at [facility] with MADELEINE. Requested callback to discuss. * Telephone Encounter - Laura Rhoades RN - 01/27/2024 10:41 AM CDT Called pt and LM on VM reviewing message from CK and reviewing echo results. Discussed the need to schedule LHC at [facility] with DK. Requested callback to discuss. * Telephone Encounter - Laura Rhoades RN - 01/26/2024 2:04 PM CDT Images from the original note were not included. Christine Cope NP [facility] Please see below re: scheduling patient for LHC at [facility] with DK. Thank you. Called pt and LM on VM reviewing message from CK and reviewing echo results. Discussed the need to schedule LHC at [facility] with DK-offered pt date of 03/04 at 1000. Requested callback to discuss. documented in this encounter Plan of Treatment Scheduled Referrals Name Type Priority Associated Diagnoses Order Schedule Ambulatory referral to Cardiology Outpatient Referral Routine Nonrheumatic aortic valve stenosis Expected: 02/05/2024 (Approximate), Expires: 01/28/2025 documented as of this encounter Procedures Procedure Name Priority Date/Time Associated Diagnosis Comments CBC WITH AUTO DIFFERENTIAL Routine 02/20/2024 Nonrheumatic aortic valve stenosis COMPREHENSIVE METABOLIC PANEL Routine 02/20/2024 Nonrheumatic aortic valve stenosis documented in this encounter Results * Comprehensive metabolic panel (02/20/2024) Blood 02/20/2024 us Tom De Jesus MD LAB BLOOD ORDERABLES Final Resul t EXTERNAL LAB * CBC with auto differential (02/20/2024) Blood 02/20/2024 us Tom De Jesus MD LAB BLOOD ORDERABLES Final Resul t EXTERNAL LAB documented in this encounter Visit Diagnoses Diagnosis Nonrheumatic aortic valve stenosis- Primary documented in this encounter Care Teams Feed Mixer Helper Relationship Specialty Start Date End Date Carolyn Davis MD [address] [place] [address] PCP - General 10/31/15 documented as of this encounter
--- OUTSIDE RECORDS SUMMARY | 2024-07-19 22:00 | XMS_ITS | Encounter Summary ---
Author Organization [facility] Address [address] [facility] [place] [address] Care Team Providers Care Round Kiln Drawer Name Role Phone Carolyn Davis MD Primary Care Provider Reason for Visit * Cardiology (Routine) - Closed Specialty Diagnoses / Procedures Referred By Kary t Referred To Contact Diagnoses PSVT (paroxysmal supraventricular tachycardia) (HCC) Palpitations Procedures MCT Mobile Cardiac Telemetry Event Monitor Tom De Jesus MD [address] [address] Phone: tel: fax: [facility] Referral ID Status Reason Start Date Expiration Date Visits Re quested Visits Authorized [id number] Closed 08/20/2022 09/19/2023 1 1 Encounter Details Date Type Department Care Team (Latest Contact Info) Description 08/20/2022 2:30 PM IT ANALYST Ancillary Procedure [facility] Cardiology [address] [facility] [address] [place] [address] PSVT (paroxysmal supraventricular tachycardia) (CMS/HCC) (HCC); Palpitations Social History Tobacco Use Types Packs/Day Years Used Date Smoking Tobacco: Every Day Cigarettes Smokeless Tobacco: Never Alcohol Use Standard Drinks/Week Comments No 0 (1 standard drink = 0.6 oz pur e alcohol) Sex and Gender Information Value Date Recorded Sex Assigned at Not on file Legal Sex Male 1:59 AM IT ANALYST Gender Identity Not on file Sexual Orientation Not on file documented as of this encounter Plan of Treatment Not on file documented as of this encounter Procedures Procedure Name Priority Date/Time Associated Diagnosis Comments MCT - MOBILE CARDIAC TELEMETRY EVENT MONITOR Routine 08/20/2022 12:21 PM IT ANALYST PSVT (paroxysmal supraventricular tachycardia) (CMS/HCC) (HCC) Palpitations documented in this encounter Results * MCT Mobile Cardiac Telemetry Event Monitor (08/20/2022 12:21 PM IT ANALYST) Anatomical Region Laterality Modality Other Narrative 09/26/2022 12:17 PM IT ANALYST Images from the original result were not included. AMBULATORY ONLINE MARKETER REPORT Patient Name: Wyatt Madden Date of [...] 127BPM without any arrhythmias. Trey Wooten M.D., [facility] 09/26/22 Voice recognition software was used to complete this document, therefore, financial administrative assistant variances may occur. Procedure Note Trey Wooten MD - 09/26/2022 Images from the original note were not included. AMBULATORY ONLINE MARKETER REPORT Patient Name: Wyatt Madden Date of [...] per minute and the maximum heart rate [id number] beats per minute. There was no evidence of atrial fibrillation/flutter, SVT, pauses, heartblocks, or ventricular tachycardia. No evidence of PACs. PVC burden is less than 1%. There were 5 patient triggered events. All 5 episodes were symptom otherthan listed that correlated to sinus rhythm with a heart rate range [id number] to 127BPM without any arrhythmias. Conclusions: Sinus rhythm with an average heart rate of 68 beats per minute. Theminimum heart rate was 50 beats per minute and the maximum heart rate [id number] beats per minute. No significant arrhythmias. Patient reported symptoms correlated to sinus rhythm with a heart raterange of 54BPM to 127BPM without any arrhythmias. Trey Wooten M.D., [facility] 09/26/22 Voice recognition software was used to complete this document, therefore,financial administrative assistant variances may occur. us Tom De Jesus MD CV CARDIAC SERVICES PROCEDURES F inal Result documented in this encounter Visit Diagnoses Diagnosis PSVT (paroxysmal supraventricular tachycardia) (HCC) Paroxysmal supraventricular tachycardia Palpitations documented in this encounter Care Teams Round Kiln Drawer Relationship Specialty Start Date End Date Carolyn Davis MD [address] [facility] [address] [place] [address] PCP - General 10/31/15 documented as of this encounter
--- OUTSIDE RECORDS SUMMARY | 2024-07-19 22:00 | XMS_ITS | Encounter Summary ---
Author Organization [facility] Address [address] [place] [address] Care Team Providers Care College Athletic Director Name Role Phone Carolyn Davis MD Primary Care Provider Encounter Details Date Type Department Care Team (Late st Contact Info) Description 09/10/2021 5:35 PM INSTALLER HELPER Lab [address] [address] Pre-operative laboratory examination Social History Tobacco Use Types Packs/Day Years Used Date Smoking Tobacco: Every Day Cigarettes Smokeless Tobacco: Never Alcohol Use Standard Drinks/Week Comments No 0 (1 standard drink = 0.6 oz pur e alcohol) Sex and Gender Information Value Date Recorded Sex Assigned at Not on file Legal Sex Male 1:59 AM INSTALLER HELPER Gender Identity Not on file Sexual Orientation Not on file documented as of this encounter Plan of Treatment Not on file documented as of this encounter Procedures Procedure Name Priority Date/Time Associated Diagnosis Comments COVID-19 CORONAVIRUS RNA Routine 09/10/2021 3:45 PM INSTALLER HELPER Pre-operative laboratory examination documented in this encounter Results * COVID-19 Coronavirus RNA Nasopharyngeal (09/10/2021 3:45 PM INSTALLER HELPER) COVID-19 RNA Not Detected ORI STODDARD Comment: Interpretive Data Synonyms for this test include: PCR and NAAT . ??Testing performed by the [facility] Molecular Infectious Disease Laboratory. The 2018-Novel Coronavirus Assay (COVID-19) Real Time RT-PCR assay is for in vitro diagnostic use under FDA emergency use authorization only. A negative RT-PCR result does not preclude infection with COVID-19 and should not be used as the sole basis for treatment or other patient management decisions. ??Additional sample types have been validated according to CLIA regulations. ?? Current Interpretive Data was last revised on September 06, 2020. Testing performed by: [facility], [address] [place] [address]., [id number] First COVID-19 test? Unknown CERNER Comment:Testing performed by : [facility], [address] [facility], [address] Employeed in healthcare? Unknown CERNER Comment:Testing performed by : [facility], [address] [facility], [address] Group care resident? No CERNER Comment:Testing performed by : [facility], [address] [place] [address], [id number] Hospitalized? Unknown CERNER Comment:Testing performed by : [facility], [address] [facility], [address] Is patient in ICU? Unknown CERNER Comment:Testing performed by : [facility], [address] [facility], [address] Symptomatic as defined by CDC? No CERNER Comment:Testing performed by : [facility], [address] [place] [address], [address] Nasopharyngeal 09/10/2021 3: 45 PM INSTALLER HELPER 09/11/2021 12:07 AM INSTALLER HELPER Narrative CERNER - 09/11/2021 5:37 AM INSTALLER HELPER What is the reason for testing?->Screening prior to scheduled??procedure or surgery??(Batched) us Tom De Jesus MD LAB MICROBIOLOGY - GENERAL ORDER DINORA Final Result ORI [address] [place] [address] documented in this encounter Visit Diagnoses Diagnosis Pre-operative laboratory examination Pre-procedural laboratory examination documented in this encounter Care Teams College Athletic Director Relationship Specialty Start Date End Date Carolyn Davis MD [address] [facility] [address] [place] [address] PCP - General 10/31/15 documented as of this encounter
--- OUTSIDE RECORDS SUMMARY | 2024-07-19 22:00 | XMS_ITS | Encounter Summary ---
Author Organization [facility] Healthcare Address [address] [place] [address] Care Team Providers Care Etl Application Developer Name Role Phone Carolyn Davis MD Primary Care Provider Encounter Details Date Type Department Care Team (Late st Contact Info) Description 09/11/[address] [facility] Pre Anesthesia Testing [address] [place] [address] Michelle Stovall RN Social History Tobacco Use Types Packs/Day Years Used Date Smoking Tobacco: Every Day Cigarettes Smokeless Tobacco: Never Alcohol Use Standard Drinks/Week Comments No 0 (1 standard drink = 0.6 oz pur e alcohol) Sex and Gender Information Value Date Recorded Sex Assigned at Not on file Legal Sex Male 1:59 AM INTEGRATION DEVELOPER Gender Identity Not on file Sexual Orientation Not on file documented as of this encounter Miscellaneous Notes * Telephone Encounter - Michelle Stovall RN - 09/11/2021 2:11 PM INTEGRATION DEVELOPER patient given pre-procedure instructions, arrival 0800, and instructions for antibacterial shower.Verbalized understanding. GRATION DEVELOPER documented in this encounter Plan of Treatment Not on file documented as of this encounter Visit Diagnoses Not on filedocumented in this encounter Care Teams Etl Application Developer Relationship Specialty Start Date End Date Carolyn Davis MD [address] [facility] [address] [place] [address] PCP - General 10/31/15 documented as of this encounter
--- OUTSIDE RECORDS SUMMARY | 2024-07-19 22:00 | XMS_ITS | Encounter Summary ---
Author Organization [facility] Address [address] [place] [address] Care Team Providers Care Automobile Seat Cover Installer Name Role Phone Carolyn Davis MD Primary Care Provider Reason for Visit * Reason Comments Follow-up on PSVT and anxiety Encounter Details Date Type Department Care Team (Latest Contact Info) Description 08/19/2017 1:45 PM EMD SPECIAL EDUCATION TEACHER Office Visit [facility] [address] [place] [address] Tom De Jesus MD [facility] [place] [id number] PSVT (paroxysmal supraventricular tachycardia) (CMS/HCC) (Primary Dx); Tobacco abuse; Essential hypertension; Situational anxiety Social History Tobacco Use Types Packs/Day Years Used Date Smoking Tobacco: Every Day Cigarettes Smokeless Tobacco: Never Alcohol Use Standard Drinks/Week Comments No 0 (1 standard drink = 0.6 oz pur e alcohol) Sex and Gender Information Value Date Recorded Sex Assigned at Not on file Legal Sex Male 1:59 AM EMD SPECIAL EDUCATION TEACHER Gender Identity Not on file Sexual Orientation Not on file documented as of this encounter Last Filed Vital Signs Vital Sign Reading Time Taken Comments Blood Pressure 150/70 08/19/2017 1:58 PM EMD SPECIAL EDUCATION TEACHER Pulse 84 08/19/2017 1:58 PM EMD SPECIAL EDUCATION TEACHER Temperature - - Respiratory Rate - - Oxygen Saturation 97% 08/19/2017 1:58 PM EMD SPECIAL EDUCATION TEACHER Inhaled Oxygen Concentration - - Weight 110.2 kg (243 lb) 08/19/2017 1:58 PM EMD SPECIAL EDUCATION TEACHER Height 182.9 cm (6') 08/19/2017 1:58 PM EMD SPECIAL EDUCATION TEACHER Body Mass Index 32.96 08/19/2017 1:58 PM EMD SPECIAL EDUCATION TEACHER documented in this encounter Ordered Prescriptions Prescription Sig Dispense Quantity Refills Last Filled Start Date End Date diltiazem (TIAZAC) 240 mg 24 hr capsule 1 capsule (240 mg total) daily. 90 capsule 5 08/19/2017 8 documented in this encounter Progress Notes * Tom De Jesus MD - 08/19/2017 1:45 PM CST [facility] FOLLOW UP 08/19/2017 Chief Complaint Patient presents with ??? Follow-up on PSVT and anxiety 51-year-old male with PSVT, anxiety/panic attacks. Patient was seen in [facility] on 06/22/15 when he presented with [...] Patient is here for the follow-up visit. He has been doing relatively well since last office visit.He has not had any sustained palpitations since last office visit. His main complaint has been anxiety related to situations like heights and [...] oral route every day 0 0 ??? b complex vitamins capsule Take 1 capsule by mouth daily. ??? buPROPion XL (WELLBUTRIN XL) 150 mg 24 hr tablet Take 300 mg by mouth daily. ??? diltiazem (TIAZAC) 240 mg 24 hr capsule 1 capsule (240 mg total) daily. 90 capsule 5 ??? metoprolol (LOPRESSOR) 25 mg tablet take 0.5 Tablet by ORAL route every day and if needed take 1 tablet by oral route twice daily (Patient taking differently: Take 50 mg by mouth 2 (two) times a day. ) 0 0 ??? multivitamin with minerals tablet Take 1 tablet by mouth daily. ??? rOPINIRole (REQUIP) 1 mg tablet Take 1 mg by mouth 3 (three) times a day. ??? sertraline (ZOLOFT) 25 mg tablet take 1 tablet by oral route 2 times every day (Patient taking differently: Take 25 mg by mouth daily. ) 0 0 No current facility-administered medications [...] EF 55-60%.) - 06/22/2015 PHYSICAL EXAM Vitals: 08/19/17 1358 BP: 150/70 Pulse: 84 SpO2: 97% General appearance - alert, no distress, oriented [...] visit: PSVT (paroxysmal supraventricular tachycardia) (CMS/HCC) (Primary) Tobacco abuse Essential hypertension Situational anxiety Other orders - diltiazem (TIAZAC) 240 mg 24 hr capsule; 1 capsule (240 mg total) daily. PLAN/RECOMMENDATIONS 50-year-old male with PSVT, anxiety/panic attacks; tobacco abuse. Symptoms of palpitations significantly improved after addition of metoprolol to the diltiazem. LVEF 55-60%, no structural heart disease. Currently stable cardiac status. Blood pressure elevated, increase diltiazem to 240 mg daily, continue metoprolol tartrate 25 mg twice a day. Patient advised to monitor blood pressure. Optimize/modify [...] Routine follow-up visit with PCP. Follow-up in 3 months or sooner if needed Tom De Jesus MD SPECIAL EDUCATION TEACHER documented in this encounter Plan of Treatment Not on file documented as of this encounter Visit Diagnoses Diagnosis PSVT (paroxysmal supraventricular tachycardia) (HCC)- Primary Paroxysmal supraventricular tachycardia Tobacco abuse Tobacco use disorder Essential hypertension Unspecified essential hypertension Situational anxiety documented in this encounter Discontinued Medications Medication Sig Discontinue Reason Start Date End Da te diltiazem (TIAZAC) 180 mg 24 hr capsule TAKE 1 CAPSULE BY ORAL ROUTE EVERY DAY 07/19/2015 08/19/2017 documented as of this encounter Historical Medications * This list may reflect changes made after this encounter. buPROPion XL (WELLBUTRIN XL) 150 mg 24 hr tablet Take 300 mg by mouth daily. 08/28/2021 b complex vitamins capsule Take 1 capsule by mouth daily. 12/14/2019 multivitamin with minerals tablet Take 1 tablet by mouth daily 02/15/2024 rOPINIRole (REQUIP) 1 mg tablet Take 2 tablets (2 mg total) by mouth daily 02/15/2024 added in this encounter Care Teams Automobile Seat Cover Installer Relationship Specialty Start Date End Date Carolyn Davis MD [address] [place] [address] PCP - General 10/31/15 documented as of this encounter
--- OUTSIDE RECORDS SUMMARY | 2024-07-19 22:00 | XMS_ITS | Encounter Summary ---
Author Organization [facility] Address [address] [place] [address] Phone Care Team Providers Care Print Binding And Finishing Worker Name Role Phone Carolyn Davis MD Primary Care Provider Reason for Referral * MRI/CAT/PET Scan (Routine) - Closed Specialty Diagnoses / Procedures Referred By Contac t Referred To Contact Radiology Diagnoses Nonrheumatic aortic valve stenosis Procedures CT TAVR Ernie Baldwin MD [address] [facility] [id number] [place] [address] Phone: tel: fax: [facility] [address] [place] [address] Referral ID Status Reason Start Date Expiration Date Visits Re quested Visits Authorized [id number] Closed 02/23/2024 03/24/2025 1 1 Encounter Details Date Type Department Care Team (Late st Contact Info) Description 02/23/2024 Orders Only [facility] 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 Ernie Baldwin MD IMG CT PROCEDURES Final Result documented in this encounter Visit Diagnoses Diagnosis Nonrheumatic aortic valve stenosis- Primary Nonrheumatic aortic valve stenosis documented in this encounter Care Teams Print Binding And Finishing Worker Relationship Specialty Start Date End Date Carolyn Davis MD [address] [facility] [address] [place] [address] PCP - General 10/31/15 documented as of this encounter
--- OUTSIDE RECORDS SUMMARY | 2024-07-19 22:00 | XMS_ITS | Encounter Summary ---
Author Organization [facility] Care Team Providers Care Propeller Engineer Name Role Phone Unavailable Primary Care Provider Unavailabl e Encounter Details Date Type Department Care Team (Late st Contact Info) Description 08/10/2007 7:51 AM LIBRARIAN SPECIAL LIBRARY - 08/10/2007 12:04 PM LIBRARIAN SPECIAL LIBRARY Hospital Encounter [facility] Nathalie Mcconnell MD [address] [place] [address] Social History Tobacco Use Types Packs/Day Years Used Date Smoking Tobacco: Never Assessed Sex and Gender Information Value Date Recorded Sex Assigned at Not on file Legal Sex Male 1:59 AM LIBRARIAN SPECIAL LIBRARY Gender Identity Not on file Sexual Orientation Not on file documented as of this encounter Plan of Treatment Not on file documented as of this encounter Visit Diagnoses Not on filedocumented in this encounter
--- OUTSIDE RECORDS SUMMARY | 2024-07-19 22:00 | XMS_ITS | Encounter Summary ---
Author Organization [facility] Address [address] [place] [address] Care Team Providers Care Fire Prevention Research Engineer Name Role Phone Carolyn Davis MD Primary Care Provider Encounter Details Date Type Department Care Team (Late st Contact Info) Description 02/17/2022 Orders Only [facility] Health Information Management [address] [place] [address] Scanning, Provider Social History Tobacco Use Types Packs/Day Years Used Date Smoking Tobacco: Every Day Cigarettes Smokeless Tobacco: Never Alcohol Use Standard Drinks/Week Comments No 0 (1 standard drink = 0.6 oz pur e alcohol) Sex and Gender Information Value Date Recorded Sex Assigned at Not on file Legal 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 Gender Identity Not on file Sexual Orientation Not on file documented as of this encounter Plan of Treatment Not on file documented as of this encounter Procedures Procedure Name Priority Date/Time Associated Diagnosis Comments SCAN - RADIOLOGY/IMAGING 02/17/2022 CARDIOLOGY DOCUMENT SCAN 02/17/2022 documented in this encounter Results * CARDIOLOGY DOCUMENT SCAN (02/17/2022) Anatomical Region Laterality Modality Other us Provider Scanning CV CARDIAC SERVICES PROCEDURES Final Result * SCAN - RADIOLOGY/IMAGING (02/17/2022) Anatomical Region Laterality Modality Other us Provider Scanning Edited Result - Final documented in this encounter Visit Diagnoses Not on filedocumented in this encounter Care Teams Fire Prevention Research Engineer Relationship Specialty Start Date End Date Carolyn Davis MD [address] [facility] [address] [place] [address] PCP - General 10/31/15 documented as of this encounter
--- OUTSIDE RECORDS SUMMARY | 2024-07-19 22:00 | XMS_ITS | Encounter Summary ---
Author Organization [facility] Address [address] [place] [address] Care Team Providers Care Food And Beverage Lead Name Role Phone Carolyn Davis MD Primary Care Provider Encounter Details Date Type Department Care Team (Late st Contact Info) Description 01/06/2022 Telephone [facility] Cardiology [address] [facility] [address] [place] [address] Lizette Quintero, HUY [address] [facility] [address] [place] [address] Social History Tobacco Use Types Packs/Day Years Used Date Smoking Tobacco: Every Day Cigarettes Smokeless Tobacco: Never Alcohol Use Standard Drinks/Week Comments No 0 (1 standard drink = 0.6 oz pur e alcohol) Sex and Gender Information Value Date Recorded Sex Assigned at Not on file Legal Sex Male 1:59 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 Pt given number to call if he has not heard from them In a few days * Telephone Encounter - Tom De Jesus MD - 01/08/2022 1:06 PM CDT Please schedule appointment with 1 of the electrophysiologists at [facility] * Telephone Encounter - Fabiana Ortega RN - 01/06/2022 3:02 PM CDT Pt calls to report he has has 3 episodes of fast HR since he last saw DK. Last night he was afraid to go to sleep because it was racing so hard Last nights episode occurred while watching the move top Gun and the heights in the movie scared him. This episode lasted 5-7 min. The ones prior lasted 10 min and 3-4 min. He also comments he has been feeling more SOB and fatigued than usual, like just from walking the dog. Current meds and doses per our records. ( pt confirmed meds but could not confirm doses) Metoprolol 25 mg - 2 tabs BID per pt Diltiazem 300 mg daily DK last OV 1. If patient has recurrent symptomatic PSVT, then he will be referred to EP. Please advise * Telephone Encounter - Geoff Pina - 01/06/2022 2:52 PM CDT Pt called states he has been SOB,fatigue, and high HR states he had a hard time getting his HR downlast night.Requesting a call from nurse to advise.Thank you Contact:[phone] documented in this encounter Plan of Treatment Not on file documented as of this encounter Visit Diagnoses Diagnosis PSVT (paroxysmal supraventricular tachycardia) (HCC)- Primary Paroxysmal supraventricular tachycardia documented in this encounter Care Teams Food And Beverage Lead Relationship Specialty Start Date End Date Carolyn Davis MD [address] [facility] [facility] [facility] [address] [place] [id number] PCP - General 10/31/15 documented as of this encounter
--- OUTSIDE RECORDS SUMMARY | 2024-07-19 22:00 | XMS_ITS | Encounter Summary ---
Author Organization [facility] Healthcare Address [address] [place] [address] Care Team Providers Care Knitting Supervisor Name Role Phone Carolyn Davis MD Primary Care Provider Reason for Referral * Cardiology (Routine) - Closed Specialty Diagnoses / Procedures Referred By Kary mata Referred To Contact Diagnoses Nonrheumatic aortic valve stenosis Procedures Transthoracic Echo (TTE) Complete W Doppler/CF Rocco Fisher NP [address] [address] Phone: tel: fax: [facility] Referral ID Status Reason Start Date Expiration Date Visits Re quested Visits Authorized [id number] Closed 01/06/2024 02/04/2025 1 1 Reason for Visit * Reason Comments Annual Exam Encounter Details Date Type Department Care Team (Late st Contact Info) Description 01/06/2024 3:00 PM CDT Office Visit [facility] Cardiology [address] [place] [phone] Rocco Fisher NP [address] [facility] [address] [phone] Nonrheumatic aortic valve stenosis (Primary Dx); Lipid screening; Supraventricular tachycardia (HCC); Tobacco dependence Social History Tobacco Use Types Packs/Day Years [...] on file 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 Gender Identity Not on file Sexual Orientation Not on file documented as of this encounter Last Filed Vital Signs Vital Sign Reading Time Taken Comments Blood Pressure 108/60 01/06/2024 2:57 PM CDT Pulse 50 01/06/2024 2:57 PM CDT Temperature - - Respiratory Rate - - Oxygen Saturation 95% 01/06/2024 2:57 PM CDT Inhaled Oxygen Concentration - - Weight 82.1 kg (181 lb) 01/06/2024 2:57 PM CDT Height 180.3 cm (5' 11 ) 01/06/2024 2:57 PM CDT Body Mass Index 25.24 01/06/2024 2:57 PM CDT documented in this encounter Ordered Prescriptions Prescription Sig Dispense Quantity Refills Last Filled Start Date End Date rosuvastatin (CRESTOR) 10 mg tabletIndications: Lipid screening Take 2 tablets (20 mg total) by mouth daily 60 tablet 11 01/06/2024 documented in this encounter Progress Notes * Rocco Fisher NP - 01/06/2024 3:00 PM CDT [facility] Cardiology [address] [place] [address] Date of Visit: 01/06/2024 Patient ID: Wyatt Nunez 1965 Chief Complaint: Wyatt Nunez is a 58 y.o. male who comes to the office for routine follow up for , PSVT History of Present Illness: Wyatt Nunez is a 58 y.o. male with a past medical history of aortic stenosis, paroxysmal supraventricular tachycardia, anxiety/panic attacks Patient was seen in [facility] on 06/22/15 when he presented with [...] last office visit, patient was admitted to [facility] on 02/16/2022 after he apparently had [...] Patient states that he is quit alcohol. 01/06/2024 follow-up with HUY Nunez comes to the office today for his annual follow-up visit. Overall he is doing well. He does notice some increased shortness of breath with strenuous activity. He states that he does not have any issue carrying out his normal daily activities but if hewere to walk for a considerable distance with an incline he notices some shortness of breath. He continues to smoke. He has lost a considerable amount of weight since his last visit which was intentional. He achieved this by eating less and eating healthier foods. Records that I personally reviewed on the day of this visit include: (the interpretation is outlined in the HPI above) I have also reviewed: allergies, current medications, past family history, past medical history, past social history, past surgical history and problem list Review of Systems Constitutional: Negative for fever, malaise/fatigue, night sweats, weight gain and weight loss. HENT: Negative for hearing loss. Eyes: Negative for blurred vision and visual disturbance. Cardiovascular: Positive for dyspnea on exertion and palpitations. Negative for chest pain, claudication, irregular heartbeat, leg swelling, near-syncope, orthopnea, paroxysmal nocturnal dyspnea and syncope. Respiratory: Negative for shortness of breath, sleep disturbances due to breathing, snoring and wheezing. Hematologic/Lymphatic: Negative for bleeding problem. Musculoskeletal: Negative for muscle cramps and muscle weakness. Gastrointestinal: Negative for abdominal pain, change in bowel habit, diarrhea, nausea and vomiting. Genitourinary: Negative for hematuria. Neurological: Negative for dizziness and headaches. Vital Signs: BP 108/60 (BP Location: Left arm, Patient Position: Sitting) Pulse 50 Ht 180.3 cm (5' 11 ) Wt82.1 kg (181 lb) SpO2 95% BMI 25.24 kg/m?? Body mass index is 25.24 kg/m??. Physical Exam Vitals reviewed. Constitutional: General: He is not in acute distress. HENT: Head: Normocephalic and atraumatic. Eyes: Extraocular Movements: Extraocular movements intact. Conjunctiva/sclera: Conjunctivae normal. Cardiovascular: Rate and Rhythm: Normal rate and regular rhythm. Heart sounds: Murmur heard. Harsh systolic murmur is present with a grade of 3/6 at the upper right sternal border and upper left sternal border radiating to the neck. Pulmonary: Effort: Pulmonary effort is normal. No respiratory distress. Breath sounds: Normal breath sounds. Abdominal: General: Bowel sounds are normal. Palpations: Abdomen is soft. Musculoskeletal: General: Normal range of motion. Cervical back: Normal range of motion and neck supple. Skin: General: Skin is warm and dry. Neurological: Mental Status: He is alert and oriented to person, place, and time. No Known Allergies Current Outpatient Medications: aspirin (ASPIR-81) 81 mg tablet, take 1 tablet by oral route every day, Disp: 0, Rfl: 0 diltiazem (TIAZAC) 300 mg 24 hr capsule, 1 capsule (300 mg total) daily, Disp: 90 capsule, Rfl: 3 eszopiclone (LUNESTA) 2 mg tablet, 3 mg nightly, Disp: , Rfl: metoprolol (LOPRESSOR) 25 mg tablet, Take 1 tablet (25 mg total) by mouth 2 (two) times a day, Disp: , Rfl: multivitamin with minerals tablet, Take 1 tablet by mouth daily, Disp: , Rfl: QUEtiapine XR (SEROquel XR) 50 mg tablet extended release 24 hr, Take 1 tablet (50 mg total) by mouth 2 (two) times a day, Disp: , Rfl: rOPINIRole (REQUIP) 1 mg tablet, Take 2 tablets (2 mg total) by mouth daily, Disp: , Rfl: buPROPion SR (ZYBAN) 150 mg 12 hr tablet, Take 1 tablet (150 mg total) by mouth 2 (two) times a day(Patient not taking: Reported on 01/06/2024), Disp: 60 tablet, Rfl: 11 magnesium oxide (MAG-OX) 250 mg (150.8 mg elemental) tablet, Take 1 tablet (250 mg total) by mouth daily (Patient not taking: Reported on 01/06/2024), Disp: , Rfl: naltrexone (DEPADE) 50 mg tablet, Take 1 tablet (50 mg total) by mouth daily (Patient not taking: Reported on 01/06/2024), Disp: , Rfl: No results found for: POTASSIUM , BUNSER , CREATININE , CHOL , TRIG , LDL , LDLCALC , HDL Assessment: Diagnoses and all orders for this visit: Nonrheumatic aortic valve stenosis (Primary) - Transthoracic Echo (TTE) Complete W Doppler/CF; Future Lipid screening - POCT lipid panel Supraventricular tachycardia (HCC) Tobacco dependence Moderate aortic stenosis with BEVERLY 1.4 cm2, Vmax 2.62 m/sec, and mean gradient 17 mmHg. We will obtain repeat 2D echocardiogram with Doppler for routine surveillance. Lipids in the office today total cholesterol 138, HDL 31, triglycerides 105, LDL 85 Continue statin. In regards to his SVT, he states that he feels palpitations occasionally that lasts for a few minutes and subside without any intervention. Continue diltiazem and metoprolol. Unfortunately, he continues to smoke. He states that he has quit in the past for short period of time but finds it difficult to remain abstinent from cigarettes as his is a smoker as well. He states that he is hoping that they both quit. Reinforced importance of smoking cessation for overall health and specifically cardiovascular health. He should return to the office in 1 year for follow-up with Dr. De Jesus or earlier if needed. Rocco Fisher ANP- Nurse Practitioner with [facility] Card[facility] This note is dictated and transcribed using [employer]oy[employer] Direct Software. Construction Executive variancesmay occur. Despite proofreading, typographical errors may occur. Cosigned by Tom De Jesus MD at 01/07/2024 11:18 AM CDT documented in this encounter Plan of Treatment Not on file documented as of this encounter Procedures Procedure Name Priority Date/Time Associated Diagnosis Comments POCT LIPID PANEL Routine 01/06/2024 3:02 PM CDT Lipid screening documented in this encounter Results * TRANSTHORACIC ECHO (TTE) COMPLETE W DOPPLER/CF WO CONTRAST (01/21/2024 4:07 PM CDT) Anatomical Region Laterality Modality Ultrasound 01/21/2024 3:13 PM CDT Narrative 01/21/2024 4:54 PM CDT [facility] Cardiology [address] [facility] [address], [place] [address] [address] [facility] [address], [place] [address] P:[phone] P:[phone] Echocardiographic Report Patient Name: WYATT NUNEZ A : 1965 Study Date: 01/21/2024 3:13:47 PM Gender: M Tech: Location: [facility] Provider: ROCCO FISHER ?Height(Cm): 180 BSA: 2.03 [...] [place]. Left Ventricle: Normal left ventricular size. Mild [...] regurgitation. Electronically Signed By: Case Cage MD, [facility] 2024-01-21 16:54:09 CDT Procedure Note Case Cage MD - 01/21/2024 [facility] Cardiology [address] [facility] [address], [place] [address] [address] [facility] [address], [place] [address] P:[phone] P:[phone] Echocardiographic Report Patient Name: WYATT NUNEZ A : 1965 Study Date: 01/21/2024 3:13:47 PM Gender: M Tech: Location: [facility] Provider: ROCCO FISHER Height(Cm): 180 BSA: 2.03 [...] [ 16 - 34 ] cc/m2 AV NYK978.76 cm LVOT Diam 2.03 [ 1.70 - [...] [place]. Left Ventricle: Normal left ventricular size. Mild [...] regurgitation. Electronically Signed By: Case Cage MD, [facility] 2024-01-21 16:54:09 CDT Rocco Fisher NP CV ECHO PROCEDURES Final Res ult * POCT lipid panel (01/06/2024 3:02 PM CDT) Cholesterol, POC 138 mg/dL HDL, POC 31 mg/dL Triglycerides, POC 105 mg/dL LDL Cholesterol POC 85 mg/dL Chol/HDL Ratio, POC 2.7 Non-HDL Cholesterol, POC 106 mg/dL Cholesterol Total, POC 138 mg/dL Capillary blood 01/06/2024 3 :02 PM CDT Rocco Fisher NP POINT OF CARE TEST ORDERABLE S Final Result documented in this encounter Visit Diagnoses Diagnosis Nonrheumatic aortic valve stenosis- Primary Lipid screening Screening for lipoid disorders Supraventricular tachycardia (HCC) Other specified cardiac dysrhythmias Tobacco dependence Tobacco use disorder Nonrheumatic aortic valve stenosis documented in this encounter Discontinued Medications Medication Sig Discontinue Reason Start Date End Da te rosuvastatin (CRESTOR) 10 mg tablet Reorder 01/02/2024 01/06/2024 rosuvastatin (CRESTOR) 10 mg tabletIndications:Lipid screening Take 2 tablets (20 mg total) by mouth daily 01/06/2024 01/06/2024 documented as of this encounter Historical Medications * This list may reflect changes made after this encounter. Medication Sig Dispense Quantity Refills Last Filled Start D ate End Date rosuvastatin (CRESTOR) 10 mg tablet 01/02/2024 01/06/2024 added in this encounter Care Teams Knitting Supervisor Relationship Specialty Start Date End Date Carolyn Davis MD [address] [facility] [address] [facility] [address] [place] [address] PCP - General 10/31/15 documented as of this encounter
--- OUTSIDE RECORDS SUMMARY | 2024-07-19 22:00 | XMS_ITS | Encounter Summary ---
Author Organization [facility] Address [address] [facility] [address] [place] [address] Care Team Providers Care Electrician Deck Name Role Phone Carolyn Davis MD Primary Care Provider Encounter Details Date Type Department Care Team (Late st Contact Info) Description 08/04/2018 Telephone [facility] [address] [phone] Lizette Quintero NP [address] [place] [phone] Social History Tobacco Use Types Packs/Day Years Used Date Smoking Tobacco: Every Day Cigarettes Smokeless Tobacco: Never Alcohol Use Standard Drinks/Week Comments No 0 (1 standard drink = 0.6 oz pur e alcohol) Sex and Gender Information Value Date Recorded Sex Assigned at Not on file Legal Sex Male 1:59 AM SUPERVISOR 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 Patient voiced understanding. ----- Message from Lizette Quintero NP sent at 08/04/2018 1:06 PM SUPERVISOR GAS METER REPAIR ----- Please call the patient regarding his echo result. I ordered it b/c I heard a murmur on his exam. Tell him the murmur I heard was mild aortic stenosis, a mild narrowing of the aortic valve. It's not causing a problem at this point in time, but we will want to watch it on periodic echo's b/c it may worsen over time (will probably repeat echo again in about 2 yrs). Keep f/u appt in November. Thank you. RVISOR GAS METER REPAIR RVISOR GAS METER REPAIR documented in this encounter Plan of Treatment Not on file documented as of this encounter Visit Diagnoses Not on filedocumented in this encounter Care Teams Electrician Deck Relationship Specialty Start Date End Date Carolyn Davis MD [address] [facility] [address] [place] [address] PCP - General 10/31/15 documented as of this encounter
--- OUTSIDE RECORDS SUMMARY | 2024-07-19 22:00 | XMS_ITS | Encounter Summary ---
Author Organization [facility] Address [address] [facility] [address] [place] [address] Care Team Providers Care Processor Solid Propellant Name Role Phone Carolyn Davis MD Primary Care Provider Encounter Details Date Type Department Care Team (Late st Contact Info) Description 08/19/2017 Orders Only [facility] [address] [facility] [address] [place] [address] Provider, MD Damian [address] [place], [place] [id number] Social History Tobacco Use Types Packs/Day Years Used Date Smoking Tobacco: Every Day Cigarettes Smokeless Tobacco: Never Alcohol Use Standard Drinks/Week Comments No 0 (1 standard drink = 0.6 oz pur e alcohol) Sex and Gender Information Value Date Recorded Sex Assigned at Not on file 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 Gender Identity Not on file Sexual Orientation Not on file documented as of this encounter Plan of Treatment Not on file documented as of this encounter Procedures Procedure Name Priority Date/Time Associated Diagnosis Comments LIPID PANEL Routine 02/10/2017 8:55 AM CDT documented in this encounter Results * Lipid panel (02/10/2017 8:55 AM CDT) SCRIBED Cholesterol, Total 257 <200 EXTERNAL LAB SCRIBED HDL 64 >35 EXTERNAL LAB SCRIBED LDL 196 <130 EXTERNAL LAB SCRIBED Triglycerides 202 <150 EXTERNAL LAB Blood specimen (specimen) us Historical Provider LAB BLOOD ORDERABLES Edit ed Result - Final EXTERNAL LAB documented in this encounter Visit Diagnoses Not on filedocumented in this encounter Care Teams Processor Solid Propellant Relationship Specialty Start Date End Date Carolyn Davis MD [address] [facility] [address] [place] [phone] PCP - General 10/31/15 documented as of this encounter
--- OUTSIDE RECORDS SUMMARY | 2024-07-19 22:00 | XMS_ITS | Encounter Summary ---
Author Organization [facility] Address [address] [facility] [address] [place] [address] Care Team Providers Care Tourist Information Officer Name Role Phone Carolyn Davis MD Primary Care Provider Reason for Referral * Cardiology (Routine) - Closed Specialty Diagnoses / Procedures Referred By Kary mata Referred To Contact Diagnoses Aortic valve stenosis, etiology of cardiac valve disease unspecified Procedures Transesophageal Echo W Doppler/CF TRANSESOPHAGEAL ECHO (JAVIER) W DOPPLER/CF TRANSESOPHAGEAL ECHO (JAVIER) W DOPPLER/CF WO CONTRAST TRANSESOPHAGEAL ECHOCARDIOGRAM (JAVIER) COMPLETE W/ CONTRAST TRANSESOPHAGEAL ECHO (JAVIER) W DOPPLER/CF W CONTRAST TRANSESOPHAGEAL ECHO (JAVIER) W LTD DOPPLER/CF WO CONTRAST TRANSESOPHAGEAL ECHOCARDIOGRAM (JAVEIR) COMPLETE W/ COLOR TRANSESOPHAGEAL ECHO (JAVIER) WO DOPPLER/CF W CONTRAST Tom De Jesus MD [address] [address] Phone: tel: fax: [address] [phone] Referral ID Status Reason Start Date Expiration Date Visits Re quested Visits Authorized [id number] Closed 08/28/2021 09/27/2022 1 1 ET DEVELOPMENT TRAINER Encounter Details Date Type Department Care Team (Late st Contact Info) Description 08/28/2021 Telephone [facility] Cardiology [address] [place] [address] [address] [place] [address] Tom De Jesus MD [address] [place] [phone] Social History Tobacco Use Types Packs/Day Years Used Date Smoking Tobacco: Every Day Cigarettes Smokeless Tobacco: Never Alcohol Use Standard Drinks/Week Comments No 0 (1 standard drink = 0.6 oz pur e alcohol) Sex and Gender Information Value Date Recorded Sex Assigned at Not on file Legal Sex Male 1:59 AM MARKET DEVELOPMENT TRAINER Gender Identity Not on file Sexual Orientation Not on file documented as of this encounter Miscellaneous Notes * Telephone Encounter - Fabiana Sherman RN - 08/28/2021 2:16 PM CST Pt scheduled for JAVIER at [facility] on 09/13 at 1000 with MADELEINE. Dx: r/o bicuspid aortic stenosis Pt to arrive at 0800. No labs needed, no hold medications. COVID test at [facility] on 09/10 ([id number]) Graphics at [facility] aware- verified date and time Pre-procedure instructions reviewed with patient in office. Pt verbalized understanding. ET DEVELOPMENT TRAINER documented in this encounter Plan of Treatment Not on file documented as of this encounter Results * TRANSESOPHAGEAL ECHO (JAVIER) W DOPPLER/CF WO CONTRAST (09/13/2021 10:45 AM MARKET DEVELOPMENT TRAINER) BSA 2.3 m2 CONS SCIMAGE Anatomical Region Laterality Modality Ultrasound Narrative 09/13/2021 11:54 AM MARKET DEVELOPMENT TRAINER TRANSESOPHAGEAL ECHOCARDIOGRAM DATE OF PROCEDURE: 09/13/21 INDICATION FOR PROCEDURE: ??Assessment of aortic stenosis BRIEF CLINICAL HISTORY: ??Wyatt Madden is a 55 y.o. male with PSVT, moderate aortic stenosis with AVA1.28 cm2 on 08/16/2021 echocardiogram, hypertension, anxiety/panic attacks; tobacco abuse. ?? Patient has dyspnea on moderate exertion. ??Recent echo showed moderate aortic stenosis. ??Due to relatively younger age of onset of aortic stenosis, JAVIER was recommended to rule out bicuspid aortic stenosis. Benefits, risks and alternatives to the procedure were discussed with the patient in depth. ??Risks of the procedure include but are not limited to injury to the oropharyngeal mucosa, teeth; tear of esophagus which may require emergency surgery; bleeding, complications related to sedation including cardiac arrhythmias, respiratory failure. ??After discussing all the benefits of the procedure and potential complications, patient was willing to proceed with the procedure. ??Informed consent was taken prior to the procedure. PROCEDURES PERFORMED: 1. Multiplanar transesophageal echocardiography with and without color flow and Doppler assessment. 2. Moderate sedation-start time ?1022 stop time ?? 1043, total time ?? 21 minutes (CPT 82041) ANESTHESIA: ??Versed. ??3 mg, ??Fentanyl ??75mcg, Benzocaine [place], ??Viscous lidocaine. ??Elizabeth Ding RN was trained observer for moderate sedation. PROCEDURE: ??After informed consent was obtained, topical anesthesia was applied to the posterior pharynx with benzocaine spray and viscous lidocaine. IV sedation was given. ??The multiplane JAVIER probe was inserted into the patients mouth and passed into the esophagus without difficulty. ?? Multiplanar transesophageal echocardiography was performed with and without color flow and Doppler assessment. ??Patient's vitals were monitored throughout the procedure. ??The patient tolerated procedure well without any immediate procedure related complications. COMPLICATIONS: ??There were no immediate complications. FINDINGS: ?? LEFT VENTRICLE: ??Normal LV size, mild LVH, normal LV systolic function, ejection fraction about 70%. RIGHT VENTRICLE: ??Normal size and systolic function LEFT ATRIUM: ??Mild left atrial enlargement. ??No evidence of left atrial appendage thrombus. INTERATRIAL SEPTUM: ??Normal. ??No evidence of shunt on color Doppler and on injection of agitated normal saline. RIGHT ATRIUM: ??Normal size MITRAL VALVE: ??Normal structure, mild MR. AORTIC VALVE: ??Sclerotic, thickened, trileaflet aortic valve with valve area of 1-1.1 cm2 by planimetry. ??Unable to do adequate gradients in the transgastric views. ??Trace AI TRICUSPID VALVE: ??Normal structure, unable to assess RVSP due to inadequate TR jet PULMONIC VALVE: ??Normal structure AORTA: ??Sinus of Valsalva 33 mm, ascending aorta 33 mm PERICARDIUM: ??Normal, no significant pericardial effusion CONCLUSIONS: 1. Normal LV size, mild LVH, normal LV systolic function, ejection fraction about 70%. 2. Mild left atrial enlargement. ??No evidence of left atrial emergent thrombus. ??No interatrial shunt on color Doppler and on injection of agitated normal saline. 3. Normal mitral valve structure, mild MR. 4. Trileaflet, sclerotic, thickened aortic valve with restricted leaflet mobility, moderate aortic stenosis (approaching severe) with BEVERLY 1 to 1.1 cm2 by planimetry. PLAN/RECOMMENDATIONS: ??Patient will undergo continued clinical and echocardiographic surveillance for progression of aortic stenosis. ??He will eventually need aortic valve replacement. Voice recognition software was used to complete this document, therefore, manager rn variances may occur. Tom De Jesus MD, [facility] 09/13/21 Tom De Jesus MD CV ECHO PROCEDURES Final Result documented in this encounter Visit Diagnoses Diagnosis Aortic valve stenosis, etiology of cardiac valve disease unspecified- Primary Aortic valve stenosis, etiology of cardiac valve disease unspecified documented in this encounter Care Teams Tourist Information Officer Relationship Specialty Start Date End Date Carolyn Davis MD [address] [facility] [address] [place] [address] PCP - General 10/31/15 documented as of this encounter
--- OUTSIDE RECORDS SUMMARY | 2024-07-19 22:00 | XMS_ITS | Encounter Summary ---
Author Organization [facility] Address [address] [facility] [address] [place] [address] Care Team Providers Care Dry Chain Puller Name Role Phone Raghu Corral MD Primary Care Provider Reason for Referral * Diagnostic Imaging (Routine) - Closed Specialty Diagnoses / Procedures Referred By Kary mata Referred To Contact Cardiology Imaging Diagnoses Murmur, heart Procedures Transthoracic Echo Complete W Doppler/CF Lizette Swift NP Phone: tel: fax: [facility] Cardiology [address] [place] [phone] Phone: tel: fax: Referral ID Status Reason Start Date Expiration Date Visits Re quested Visits Authorized [id number] Closed 07/19/2018 01/28/2020 1 1 DESK ASSOCIATE Reason for Visit * Reason Comments Dizziness Encounter Details Date Type Department Care Team (Late st Contact Info) Description 07/19/2018 3:00 PM HELP DESK ASSOCIATE Office Visit [facility] [address] [place] [phone] Lizette Swift NP [address] [facility] [address] [place] [address] Dizziness (Primary Dx); Murmur, heart; Dyslipidemia Social History Tobacco Use Types Packs/Day Years Used Date Smoking Tobacco: Every Day Cigarettes Smokeless Tobacco: Never Alcohol Use Standard Drinks/Week Comments No 0 (1 standard drink = 0.6 oz pur e alcohol) Sex and Gender Information Value Date Recorded Sex Assigned at Not on file Legal Sex Male 1:59 AM HELP DESK ASSOCIATE Gender Identity Not on file Sexual Orientation Not on file documented as of this encounter Last Filed Vital Signs Vital Sign Reading Time Taken Comments Blood Pressure 108/60 07/19/2018 3:09 PM HELP DESK ASSOCIATE Pulse 74 07/19/2018 3:09 PM HELP DESK ASSOCIATE Temperature - - Respiratory Rate - - Oxygen Saturation 96% 07/19/2018 3:09 PM HELP DESK ASSOCIATE Inhaled Oxygen Concentration - - Weight 107.5 kg (237 lb) 07/19/2018 3:09 PM HELP DESK ASSOCIATE Height 182.9 cm (6') 07/19/2018 3:09 PM HELP DESK ASSOCIATE Body Mass Index 32.14 07/19/2018 3:09 PM HELP DESK ASSOCIATE documented in this encounter Patient Instructions * Patient Instructions* Lizette Swift NP - 07/19/2018 3:00 PM HELP DESK ASSOCIATE Follow a heart healthy diet. Eat a variety of fruits and vegetables, whole grains, low-fat dairy products, skinless poultry and fish, nuts and beans, non- tropical vegetable oils. Choose to use these oils: canola, corn, olive, peanut, safflower, soybean, sunflower, and vegetable (a blend of oils). Do not use palm oil or coconut oil. Limit saturated fat, trans fat, sodium, red meat, sweets and sugar-sweetened beverages. If you choose to eat red meat, compare labels and select the leanest cuts available. The DASH (Dietary Approaches to Stop Hypertension) eating plan is a diet plan I recommend. The [place] [employer] website is a great source of information www.heart.org Incorporate exercise into your daily routine, with a goal of 30 minutes of exercise a day, 5 days per week. DESK ASSOCIATE documented in this encounter Progress Notes * Lizette Swift NP - 07/19/2018 3:00 PM CST [facility] Date of Visit: 07/19/2018 Patient ID: Stephan Nunez [id number] Chief Complaint: Stephan Nunez is a 52 y.o. male who is an established patient Dr. De Jesus here for dizziness. History of Present Illness: 52-year-old male with PSVT, anxiety/panic attacks. Patient was seen in [facility] on 06/22/15 when he presented [...] half pack per day. 07/19/2018 OV w/ COMMUNICATIONS SPECIALIST: Patient comes in today complaining of episodes [...] axis and normal intervals, rate 67 b.p.m. Records that I personally reviewed on the day of this visit include: (the interpretation is outlined in the chief complaint above) 11/04/[address] De Jesus, today's POC lipids and ECG I have also reviewed: allergies, current medications, past family history, past medical history, past social history, past surgical history and problem list Review of Systems Constitution: Negative for diaphoresis, fever, malaise/fatigue, weight gain and weight loss. HENT: Negative for hearing loss. Eyes: Negative for visual disturbance. Cardiovascular: Negative for chest pain, claudication, dyspnea on exertion, leg swelling, orthopnea, palpitations, paroxysmal nocturnal dyspnea and syncope. Respiratory: Positive for snoring. Negative for cough, hemoptysis, shortness of breath and wheezing. Hematologic/Lymphatic: Does not bruise/bleed easily. Skin: Negative for poor wound healing and rash. No easy bruising. No bleeding problems. Musculoskeletal: Positive for joint pain. Negative for myalgias. Gastrointestinal: Negative for heartburn, nausea and vomiting. No reflux Genitourinary: Negative for hematuria. Neurological: Positive for dizziness. Negative for headaches and light-headedness. Psychiatric/Behavioral: Negative for depression. The patient is not nervous/anxious. Vital Signs: BP 108/60 (BP Location: Right arm, Patient Position: Sitting) Pulse 74 Ht 182.9 cm (6') Wt 107.5 kg (237 lb) SpO2 96% BMI 32.14 kg/m?? Physical Exam Constitutional: He is oriented [...] murmur is present with a grade of 1/6 Pulmonary/Chest: Effort normal and breath sounds normal. No respiratory distress. Abdominal: Soft. Bowel sounds are normal. There is no tenderness. Musculoskeletal: Normal range of motion. He exhibits no edema. Neurological: He is alert and oriented to person, place, and time. Skin: Skin is warm and dry. Psychiatric: He has a normal mood and affect. No Known Allergies Current Outpatient Prescriptions: ??? aspirin (ASPIR-81) 81 mg tablet, take [...] times a day. , Disp: , Rfl: ??? naltrexone (DEPADE) 50 mg tablet, Take 50 mg by mouth daily., Disp: , Rfl: Assessment: Diagnoses and all orders for this visit: Dizziness (Primary) Murmur, heart - Transthoracic Echo Complete W Doppler/CF; Future Dyslipidemia Plan/Recommendations: My suspicion is low that the ???head joseph?? and dizziness is cardiac related. Does not seem to be orthostatic because he has had several episodes while seated. There is no other accompanying symptoms concerning for angina. ECG in the office today looks unremarkable. However, if symptoms worsen or begin occurring more frequently, return to the office and we will place a mobile satellite project site monitor. However, I recommend he return to the office for an echocardiogram to assess the systolic murmur. Dr. De Jesus's previous note mentions an echo from June of 2015 showing borderline LVE, mild LVH and normal EF but the patient does not recall having any other echoes after this. He does however mention being told that he had a heart monitor before, but this is not documented in his previous office vi sits. Results of the point of care lipid panel were reviewed with the patient in detail. He would like tomake dietary changes and resume exercise before being started on medical therapy for his dyslipidemia. Counseling was provided on heart healthy diet, I also gave him a couple of patient education pamphlets and recommended the AHA web site. Return to the office to see Dr. De Jesus in 4 months. Call us sooner with questions or concerns. WOJCIECH Vieyra- Nurse Practitioner with [facility] This note is dictated and transcribed using [employer] Direct Software. Extension Professor variancesmay occur. Despite proofreading, typographical errors may occur. DESK ASSOCIATE documented in this encounter Miscellaneous Notes * Addendum Note - Blanquita Dougherty MA - 07/19/2018 3:00 PM CSTAddended by: BLANQUITA DOUGHERTY on: 07/19/2018 04:47 PM Modules accepted: Orders DESK ASSOCIATE documented in this encounter Plan of Treatment Not on file documented as of this encounter Procedures Procedure Name Priority Date/Time Associated Diagnosis Comments POCT LIPID PANEL Routine 07/19/2018 4:46 PM HELP DESK ASSOCIATE Dyslipidemia ECG 12-LEAD Routine 07/19/2018 Dizziness Murmur, heart documented in this encounter Results * TRANSTHORACIC ECHO (TTE) COMPLETE W DOPPLER/CF W CONTRAST (07/29/2018 3:45 PM HELP DESK ASSOCIATE) Anatomical Region Laterality Modality Ultrasound 07/29/2018 2:06 PM HELP DESK ASSOCIATE Narrative 07/29/2018 4:33 PM HELP DESK ASSOCIATE [facility] [address], [place] [address] [address] [facility] [address], [place] [address] P:[phone] P:[phone] Echocardiographic Report Patient Name: STEPHAN NUNEZ : 1965 Study Date: 07/29/2018 2:06:40 PM Gender: M Tech: Location: [place] Ref.Physician: RAGHU CORRAL Height(Cm): 183 BSA: 2.29 [...] Findings: Interpretation Site: Exam was interpreted at [facility]. Left Ventricle: Normal left ventricular systolic [...] Signed By: Rommel Simmons MD 2018-07-29 16:33:53 HELP DESK ASSOCIATE CC: CC: Procedure Note Rommel Simmons MD - 07/29/2018 [facility] [address] [facility] [address], [place] [address] [address] [facility] [address] [address] P:[phone] P:[phone] Echocardiographic Report Patient Name: STEPHAN NUNEZPatient ID: [id number] : [id number] Date: 07/29/2018 2:06:40 PM Gender: MAccession #: [id number] Tech: Location: [place] Ref.Physician: Job CORRALight(Cm): 183 BSA: 2.29Weight(Kg): 107.5 [...] 0.40 - 0.80 ] m/s MV Decel Voch499 [ 150 - 200 ] msec E'0.12 E/E' 9 Findings: Interpretation Site: Exam was interpreted at [facility]. Left Ventricle: Normal left ventricular systolic [...] Signed By: Rommel Simmons MD 2018-07-29 16:33:53 HELP DESK ASSOCIATE CC: CC: Lizette Swift NP CV ECHO PROCEDURES Final Result * POCT lipid panel (07/19/2018 4:46 PM HELP DESK ASSOCIATE) Cholesterol, POC 293 mg/dL HDL, POC 33 mg/dL Triglycerides, POC 283 mg/dL LDL Cholesterol POC 204 mg/dL Chol/HDL Ratio, POC 9.0 Non-HDL Cholesterol, POC 261 mg/dL Cholesterol Total, POC 293 mg/dL Blood specimen (specimen) 07/19/2018 4:46 PM HELP DESK ASSOCIATE Lizette Swift NP POINT OF CARE TEST ORDERA BLES Final Result * ECG 12 lead (07/19/2018) us Lizette Swift NP ECG ORDERABLES Final Res ult documented in this encounter Visit Diagnoses Diagnosis Dizziness- Primary Dizziness and giddiness Murmur, heart Undiagnosed cardiac murmurs Dyslipidemia Other and unspecified hyperlipidemia Murmur, heart Undiagnosed cardiac murmurs documented in this encounter Discontinued Medications Medication Sig Discontinue Reason Start Date End Da te sertraline (ZOLOFT) 25 mg tablet take 1 tablet by oral route 2 times every day Discontinued by another clinician 06/18/2016 07/19/2018 documented as of this encounter Historical Medications * This list may reflect changes made after this encounter. metoprolol (LOPRESSOR) 25 mg tablet Take 2 tablets (50 mg total) by mouth 2 (two) times a day 03/30/2024 metFORMIN XR (GLUCOPHAGE XR) 500 mg 24 hr tablet TK 2 TS PO QD 0 06/23/2018 08/29/2020 eszopiclone (LUNESTA) 2 mg tabletIndications :Insomnia 3 mg nightly 07/16/2018 02/15/2024 added in this encounter Care Teams Dry Chain Puller Relationship Specialty Start Date End Date Raghu Corral MD [address] [place] [address] PCP - General 10/31/15 documented as of this encounter
--- OUTSIDE RECORDS SUMMARY | 2024-07-19 22:00 | XMS_ITS | Encounter Summary ---
Author Organization [facility] Address [address] [place] [address] Care Team Providers Care Soft Water Mechanic Name Role Phone Carolyn Davis MD [...] W LTD DOPPLER/CF WO CONTRAST TRANSESOPHAGEAL ECHOCARDIOGRAM (JAVIER) COMPLETE W/ COLOR TRANSESOPHAGEAL ECHO (JAVIER) WO DOPPLER/CF W CONTRAST Tom De Jesus MD [facility] [address] Phone: tel: fax: [address] [phone] Referral ID Status Reason Start Date Expiration Date Visits Re quested Visits Authorized [id number] Closed 08/28/2021 09/27/2022 1 1 ACKUP ADMIN Reason for Visit * Cardiology (Routine) - [...] W LTD DOPPLER/CF WO CONTRAST TRANSESOPHAGEAL ECHOCARDIOGRAM (JAVIER) COMPLETE W/ COLOR TRANSESOPHAGEAL ECHO (JAVIER) WO DOPPLER/CF W CONTRAST Tom De Jesus MD [address] [facility] [address] [place] [address] Phone: tel: fax: [address] [phone] Referral ID Status Reason Start Date Expiration Date Visits Re quested Visits Authorized [id number] Closed 08/28/2021 09/27/2022 1 1 Encounter Details Date Type Department Care Team (Latest Contact Info) Description 09/13/2021 8:25 AM NETBACKUP ADMIN - 09/13/2021 11:59 PM NETBACKUP ADMIN Hospital Encounter [facility]iac [facility]atheterization Lab [address] [place] [address] Tom De Jesus MD [address] [place] [address] Aortic valve stenosis, etiology of cardiac valve [...] on file Legal Sex Male 1:59 AM NETBACKUP ADMIN Gender Identity Not on file Sexual Orientation Not on file documented as of this encounter Last Filed Vital Signs Vital Sign Reading Time Taken Comments Blood Pressure 163/84 09/13/2021 11:15 AM NETBACKUP ADMIN Pulse 84 09/13/2021 11:30 AM NETBACKUP ADMIN Temperature 36.9 ??C (98.4 ??F) 09/13/2021 8:56 AM CS T Respiratory Rate 20 09/13/2021 8:56 AM NETBACKUP ADMIN Oxygen Saturation 96% 09/13/2021 11:30 AM NETBACKUP ADMIN Inhaled Oxygen Concentration - - Weight 104.1 kg (229 lb 8 oz) 09/13/2021 8:56 AM NETBACKUP ADMIN Height 182.9 cm (6') 09/13/2021 8:56 AM NETBACKUP ADMIN Body Mass Index 31.13 09/13/2021 8:56 AM NETBACKUP ADMIN documented in this encounter Discharge Instructions * Discharge Instructions* Elizabeth Ding, RN - 09/13/2021 11:08 AM NETBACKUP ADMIN Moderate Sedation WHAT YOU NEED TO KNOW: [...] else call for any of the following: ?? You have sudden trouble breathing. ?? You cannot be woken. Seek care immediately if: ?? You have a severe headache or dizziness. ?? Your heart is beating faster than usual. Contact your healthcare provider if: ?? You have a fever over 100*F ?? You have nausea or are vomiting for more than 8 hours after the procedure. ?? Your skin is itchy, swollen, or you have a rash. ?? You have questions or concerns about your condition or care. Self-care: ?? Have someone stay with you for 24 hours. This person can drive you to errands and help you do things around the house. This person can also watch for problems. ?? Rest and do quiet activities. Stand up slowly to prevent dizziness and falls. Take short walks around the house with another person. ?? Do not drive or use dangerous machines or tools for 48 hours. You may injure yourself or others.Examples include a lawnmower, saw, or drill. ?? Do not make important decisions for 24 hours. For example, do not sign important papers or invest money. ?? Drink liquids as directed. Liquids help flush the sedation medicine out of your body. Ask how much liquid to drink each day and which liquids are best for you. ?? Eat small, frequent meals to prevent nausea and vomiting. Start with clear liquids such as juiceor broth. If you do not vomit after clear liquids, you can eat your usual foods. ?? Do not drink alcohol or take medicines that make you drowsy. This includes medicines that help you sleep and anxiety medicines. Ask your healthcare provider if it is safe for you to take pain medicine. Follow up with your healthcare provider as directed: Write down your questions so you remember to ask them during your visits. Transesophageal Echocardiogram Discharge Instructions Diet Resume your normal diet unless instructed by your doctor. Activity 1. No driving or operating heavy equipment for 24 hours. 2. Do not make any critical or legal decisions for 24 hours. 3. No cooking for 24 hours. 4. You need to have a responsible adult with you for 24 hours. General Instructions 1. It is normal for your throat to be sore for a couple of days. 2. You may avoid spicy, crunchy or hot food until throat soreness has resolved. For any concerns or questions, please call your Physician. [phone] Dr. De Jesus ACKUP ADMIN documented in this encounter Medications at Time of Discharge QUEtiapine XR (SEROquel XR) 50 mg tablet extended release 24 hr Take 1 tablet (50 mg total) by mouth 2 (two) times a day aspirin (ASPIR-81) 81 mg tablet take 1 tablet by oral route every day 0 0 08/08/2015 06/15/2024 buPROPion SR (ZYBAN) 150 mg 12 hr tablet Take 1 tablet (150 mg total) by mouth 2 (two) times a day 60 tablet 11 08/28/2021 12/18/2022 diltiazem (TIAZAC) 300 mg 24 hr capsule Take 1 capsule (300 mg total) by mouth every evening 90 capsule 3 11/04/2017 02/15/2024 eszopiclone (LUNESTA) 2 mg tabletIndications :Insomnia 3 mg nightly 07/16/2018 02/15/2024 magnesium oxide (MAG-OX) 250 mg (150.8 mg elemental) tabletIndications :hypomagnesemia Take 1 tablet (250 mg total) by mouth daily 02/15/2024 metoprolol (LOPRESSOR) 25 mg tablet Take 2 tablets (50 mg total) by mouth 2 (two) times a day 03/30/2024 multivitamin with minerals tablet Take 1 tablet by mouth daily 02/15/2024 naltrexone (DEPADE) 50 mg tablet Take 1 tablet (50 mg total) by mouth daily 02/15/2024 rOPINIRole (REQUIP) 1 mg tablet Take 2 tablets (2 mg total) by mouth daily 02/15/2024 documented as of this encounter Discharge Disposition Disposition Code Departure Means Destination Discharge to home or self care documented in this encounter H&P Notes * Tom De Jesus MD - 09/13/2021 10:00 AM CST Plan of Care : Based on the above findings, I consider Wyatt Madden to be an acceptable risk for : * No procedures listed * ACKUP ADMIN Source Note - Tom De Jesus MD - 08/28/2021 1:45 PM NETBACKUP ADMIN [facility]IC FOLLOW UP 08/28/2021 Chief Complaint Patient presents with ??? Follow-up PSVT- Aortic stenosis- 1 year fu 55 y.o. male with PSVT, anxiety/panic attacks. Patient was seen in [facility] on 06/22/15 when he presented with complaints [...] and JAVIER findings. Tom De Jesus MD ACKUP ADMIN documented in this encounter Miscellaneous Notes * Pre-Sedation Documentation - Tom De Jesus MD - 09/13/2021 10:00 AM NETBACKUP ADMIN Sedation Plan ASA 2 - Mild systemic disease Mallampati class: III. Risks, benefits, and alternatives discussed with patient. ACKUP ADMIN documented in this encounter Plan of Treatment Not on file documented as of this encounter Procedures Procedure Name Priority Date/Time Associated Diagnosis Comments TRANSESOPHAGEAL ECHO (JAVIER) W DOPPLER/CF WO CONTRAST Routine 09/13/2021 10:45 AM NETBACKUP ADMIN Aortic valve stenosis, etiology of cardiac valve disease unspecified documented in this encounter Results * TRANSESOPHAGEAL ECHO (JAVIER) W DOPPLER/CF WO CONTRAST (09/13/2021 10:45 AM NETBACKUP ADMIN) BSA 2.3 m2 CONS SCIMAGE Anatomical Region Laterality Modality Ultrasound Narrative 09/13/2021 11:54 AM NETBACKUP ADMIN TRANSESOPHAGEAL ECHOCARDIOGRAM DATE OF PROCEDURE: 09/13/21 INDICATION [...] 1043, total time ?? 21 minutes (CPT 22984) ANESTHESIA: ??Versed. ??3 mg, ??Fentanyl ??75mcg, Benzocaine Stanton, ??Viscous lidocaine. ??Elizabeth Ding RN was trained [...] was used to complete this document, therefore, information delivery analyst variances may occur. Tom De Jesus MD, [facility] 09/13/21 Tom De Jesus MD CV ECHO PROCEDURES Final Result documented in this encounter Visit Diagnoses Diagnosis Aortic valve stenosis, etiology of cardiac valve disease unspecified documented in this encounter Administered Medications Inactive Administered Medications - up to 3 most recent administrations Medication Order MAR Action Action Date Dose Rate Site benzocaine (HURRICAINE) 20 % mouth spray Code/trauma/sedation medication, Starting on Thu09/13/21 at 1019 Given 09/13/2021 10:19 AM NETBACKUP ADMIN 2 sprays fentaNYL (SUBLIMAZE) preservative free injection intravenous, Code/trauma/sedation medication, Starting on Thu09/13/21 at 1022 Given 09/13/2021 10:27 AM NETBACKUP ADMIN 25 mcg Given 09/13/2021 10:25 AM NETBACKUP ADMIN 25 mcg Given 09/13/2021 10:22 AM NETBACKUP ADMIN 25 mcg lidocaine viscous (XYLOCAINE) 2 % solution oral, Code/trauma/sedation medication, Starting on Thu09/13/21 at 1019 Given 09/13/2021 10:19 AM NETBACKUP ADMIN 15 mL midazolam (VERSED) 1 mg/mL preservative free injection Administer over 2 Minutes, Code/trauma/sedation medication, Starting on Thu09/13/21 at 1022 Given 09/13/2021 10:27 AM NETBACKUP ADMIN 1 mg Given 09/13/2021 10:25 AM NETBACKUP ADMIN 1 mg Given 09/13/2021 10:22 AM NETBACKUP ADMIN 1 mg sodium chloride 0.9% infusion intravenous, Code/trauma/sedation continuous med, Starting on Thu09/13/21 at 0930 New Bag 09/13/2021 9:30 AM NETBACKUP ADMIN 50 mL/hr 50 mL/hr documented in this encounter Care Teams Soft Water Mechanic Relationship Specialty Start Date End Date Carolyn Davis MD [address] [facility] [address] [place] [address] PCP - General 10/31/15 documented as of this encounter
--- OUTSIDE RECORDS SUMMARY | 2024-07-19 22:00 | XMS_ITS | Encounter Summary ---
Author Organization [facility] Care Team Providers Care Helper Marble Finisher Name Role Phone Carolyn Davis MD Primary Care Provider Encounter Details Date Type Department Care Team (Latest Contact Info) Description 12/06/2018 Travel Social History Tobacco Use Types Packs/Day Years Used Date Smoking Tobacco: Every Day Cigarettes Smokeless Tobacco: Never Alcohol Use Standard Drinks/Week Comments No 0 (1 standard drink = 0.6 oz pur e alcohol) Sex and Gender Information Value Date Recorded Sex Assigned at Not on file Legal Sex Male 1:59 AM LEAD SYSTEMS ANALYST Gender Identity Not on file Sexual Orientation Not on file documented as of this encounter Plan of Treatment Not on file documented as of this encounter Visit Diagnoses Not on filedocumented in this encounter Care Teams Helper Marble Finisher Relationship Specialty Start Date End Date Carolyn Davis MD [address] [facility] [address] [place] [address] PCP - General 10/31/15 documented as of this encounter
--- OUTSIDE RECORDS SUMMARY | 2024-07-19 22:18 | XMS_ITS | Encounter Summary ---
Author Organization [facility] Address [address] [place] [address] Care Team Providers Care Director Social Service Name Role Phone Carolyn Davis MD Primary Care Provider Ernie Baldwin MD Unavailable [phone] Tom De Jesus MD Unavailable Encounter Details Date Type Department Care Team (Latest Contact Info) Description 06/24/2024 Anticoagulation Visit [facility] Cardiology [address] [place] [address] Lu Rhoades, RN Aortic valve [...] How often do you attend chur or pentecostal services? Never 03/24/2024 Do you [...] any time in the past 12 m [facility], were you homeless or living in a usp (including now)? No 03/24/2024 Personal Safety Answer Date Recorded Have you ever been in or are you currently in a harmful physical or emotional relationship or is someone making you feel afraid or unsafe? Denies 03/22/2024 Sex and Gender Information Value Date Recorded Sex Assigned at Not on file Legal Sex Male 1:59 AM RIVETER AUTOMOBILE BRAKES Gender Identity Not on file Sexual Orientation [...] means documented in this encounter Care Teams Director Social Service Relationship Specialty Start Date End Date Carolyn Davis MD [address] [place] [address] PCP - General 10/31/15 Ernie Baldwin MD [id number] [place] [address] Surgeon Cardiothoracic Surgery 03/29/24 Tom De Jesus MD [address] [facility] [address] [place] [address] Consulting Physician Cardiology 03/29/24 documented as of this encounter
--- OUTSIDE RECORDS SUMMARY | 2024-07-19 22:18 | XMS_ITS | Encounter Summary ---
Author Organization [facility] Healthcare Address [address] [place] [address] Care Team Providers Care Didactic Instructor Name Role Phone Carolyn Davis MD Primary Care Provider Ernie Baldwin MD Unavailable [phone] Tom De Jesus MD Unavailable Encounter Details Date Type Department Care Team (Latest Contact Info) Description 05/13/2024 Anticoagulation Visit [facility] Cardiology [address] [place] [address] Lu Rhoades, RN Aortic valve [...] How often do you attend chur or orthodoxy services? Never 03/24/2024 Do you [...] in the past 12 m [facility], were you homeless or living in a usp (including now)? No 03/24/2024 Personal Safety Answer Date Recorded Have you ever been in or are you currently in a harmful physical or emotional relationship or is someone making you feel afraid or unsafe? Denies 03/22/2024 Sex and Gender Information Value Date Recorded Sex Assigned at Not on file Legal Sex Male 1:59 AM APPLIANCE INSTALLER Gender Identity Not on file Sexual [...] means documented in this encounter Care Teams Didactic Instructor Relationship Specialty Start Date End Date Carolyn Davis MD [address] [place] [address] PCP - General 10/31/15 Ernie Baldwin MD [id number] [place] [address] Surgeon Cardiothoracic Surgery 03/29/24 Tom De Jesus MD [address] [facility] [address] [place] [address] Consulting Physician Cardiology 03/29/24 documented as of this encounter
--- OUTSIDE RECORDS SUMMARY | 2024-07-19 22:18 | XMS_ITS | Encounter Summary ---
Author Organization [facility] Address [address] [place] [address] Phone Care Team Providers Care Director Project Management Name Role Phone Carolyn Davis MD Primary Care Provider Ernie Baldwin MD Unavailable [phone] Tom De Jesus MD Unavailable Reason for Visit * Reason Onset Date Comments Anticoagulation 04/08/2024 Encounter Details Date Type Department Care Team (Late st Contact Info) Description 04/08/2024 Documentation [facility] Surgery [address] [facility] [address] [place] [address] [place] [address] [facility] [address] [facility] [address] [place] [address] Anticoagulation Social History Tobacco Use Types Packs/Day [...] often do you attend chur ch or pentecostalism services? Never 03/24/2024 Do you belong to any clubs o r organizations such as tenriism groups, unions, fraternal or athletic groups, or [...] any time in the past 12 m [facility], were you homeless or living in [...] on file Legal Sex Male 1:59 AM FISH SMOKER Gender Identity Not on file Sexual Orientation [...] continue Lovenox. Will send in refills to [facility] today. RN will recheck INR Thursday. Eve Cota FILTER PULP WASHER documented in this encounter Plan of Treatment [...] documented as of this encounter Care Teams Director Project Management Relationship Specialty Start Date End Date Carolyn Davis MD [address] [facility] [address] [place] [address] PCP - General 10/31/15 Ernie Baldwin MD [address]02 [place] [address] Surgeon Cardiothoracic Surgery 03/29/24 Tom De Jesus MD [address] [address] Consulting Physician Cardiology 03/29/24 documented as of this encounter
--- OUTSIDE RECORDS SUMMARY | 2024-07-19 22:18 | XMS_ITS | Encounter Summary ---
Author Organization [facility] Healthcare Address [address] [place] [address] Care Team Providers Care Catalogue And Special Products Manager Name Role Phone Carolyn Davis MD Primary Care Provider Ernie Baldwin MD Unavailable [phone] Tom De Jesus MD Unavailable Encounter Details Date Type Department Care Team (Late st Contact Info) Description 05/13/2024 Telephone [facility] Medical Group Cardiology [address] [place] [address] Tom De Jesus MD [address] [address] Social History Tobacco Use Types [...] week 03/24/2024 How often do you attend [facility] or zoroastrian services? Never 03/24/2024 Do you belong to any clubs o r organizations such as lutheran groups, unions, fraternal or athletic groups, or [...] time in the past 12 m [facility], were you homeless or living in a residential (including now)? No 03/24/2024 Personal Safety Answer Date Recorded Have you ever been in or are you currently in a harmful physical or emotional relationship or is someone making you feel afraid or unsafe? Denies 03/22/2024 Sex and Gender Information Value Date Recorded Sex Assigned at Not on file Legal Sex Male 1:59 AM BRANCH OPERATION EVALUATION MANAGER Gender Identity Not on file Sexual Orientation Not on file documented as of this encounter Miscellaneous Notes * Telephone Encounter - Lu Rhoades RN - 05/13/2024 10:03 AM CDT See ac note. [facility] RN will recheck INR in 2 weeks. * Telephone Encounter - Tresa Elmore - 05/13/2024 9:56 AM CDT Katherine RN called to report pts INR result today is 2.4 Contact: documented in this encounter Plan of Treatment Not on file documented as of this encounter Visit Diagnoses Not on filedocumented in this encounter Care Teams Catalogue And Special Products Manager Relationship Specialty Start Date End Date Carolyn Davis MD [address] [place] [address] PCP - General 10/31/15 Ernie Baldwin MD [id number] [place] [address] Surgeon Cardiothoracic Surgery 03/29/24 Tom De Jesus MD 12[address] [facility] [address] [place] [address] Consulting Physician Cardiology 03/29/24 documented as of this encounter
--- OUTSIDE RECORDS SUMMARY | 2024-07-19 22:18 | XMS_ITS | Encounter Summary ---
Author Organization [facility] Healthcare Address [address] [place] [address] Care Team Providers Care Wallpaper Hanger Name Role Phone Carolyn Davis MD Primary Care Provider Ernie Baldwin MD Unavailable [phone] Magdi Bal MD Unavailable Reason for Visit * Cardiology (Routine) - Closed Specialty Diagnoses / Procedures Referred By Contac t Referred To Contact Diagnoses History of mechanical aortic valve replacement Procedures Transthoracic Echo (TTE) Complete W Doppler/CF Magdi Bal MD [address] [address] Phone: tel: fax: [facility] Cardiology [address] [facility] [address] [place] [address] Phone: tel: fax: Referral ID Status Reason Start Date Expiration Date Visits Re quested Visits Authorized [id number] Closed 06/15/2024 07/15/2025 1 1 Encounter Details Date Type Department Care Team (Latest Contact Info) Description 07/13/2024 1:00 PM LINER HELPER Ancillary Procedure [facility] Cardiology [address] [facility] [address] [place] [address] History of mechanical aortic valve replacement [...] often do you attend chur ch or catholic services? Never 03/24/2024 Do you belong to any clubs o r organizations such as spiritism groups, unions, fraternal or athletic groups, or [...] were you homeless or living in a intermediate (including now)? No 03/24/2024 Personal Safety Answer Date Recorded Have you ever been in or are you currently in a harmful physical or emotional relationship or is someone making you feel afraid or unsafe? Denies 03/22/2024 Sex and Gender Information Value Date Recorded Sex Assigned at Not on file Legal Sex Male 1:59 AM LINER HELPER Gender Identity Not on file Sexual Orientation Not on file documented as of this encounter Last Filed Vital Signs Vital Sign Reading Time Taken Comments Blood Pressure 114/48 07/13/2024 1:35 PM LINER HELPER Pulse - - Temperature - - Respiratory [...] DOPPLER/CF WO CONTRAST Routine 07/13/2024 1:41 PM LINER HELPER History of mechanical aortic valve replacement documented in this encounter Results * TRANSTHORACIC ECHO (TTE) COMPLETE W DOPPLER/CF WO CONTRAST (07/13/2024 1:41 PM LINER HELPER) Anatomical Region Laterality Modality Ultrasound 07/13/2024 1:39 PM LINER HELPER Narrative 07/13/2024 3:[address] [facility] Cardiology [address] [facility] [address], [place] [address] [address] [facility] [address], [place] [address] P:[phone] P:[phone] Echocardiographic Report Patient Name: STEPHAN NUNEZ A : 1965 Study Date: 07/13/2024 1:39:06 PM Gender: M Tech: CONCETTA Location: [facility] Provider: MAGDI BAL Height(Cm): 183 BSA: [...] FINDINGS: Interpretation Site: Exam was interpreted at [facility]. Left Ventricle: Normal left ventricular size. Mild [...] valve. Aortic Valve: S/P SAVR using 23-millimeter [place] mechanical aortic valve. Peak Velocity of 2.20 [...] valve. Trivial MR. S/P SAVR using 23-millimeter [place] mechanical aortic valve. Aortic valve prosthesis not well visualized. Peak Velocity of 2.20 m/s. Mean gradient of 9.0 mmHg. DVI 0.59. Gradients normal for valve type and size. Unable to assess RVSP due to inadequate TR jet. Electronically Signed By: Magdi Bal MD, [facility] 07/13/2024 3:26:22 PM LINER HELPER Procedure Note Magdi Bal MD - 07/13/2024 [facility] Cardiology [address] [facility] [address], [place] [address] [address] [facility] [address], [place] [address] P:[phone] P:[phone] Echocardiographic Report Patient Name: STEPHAN NUNEZ A : 1965 Study Date: 07/13/2024 1:39:06 PM Gender: M Tech: Location: [facility] Provider: MAGDI BAL Height(Cm): 183 BSA: [...] FINDINGS: Interpretation Site: Exam was interpreted at [facility]. Left Ventricle: Normal left ventricular size. Mild [...] jet. Electronically Signed By: Magdi Bal MD, [facility] 07/13/2024 3:26:22 PM LINER HELPER Magdi Bal MD CV ECHO PROCEDURES Final Result documented in this encounter Visit Diagnoses Diagnosis History of mechanical aortic valve replacement documented in this encounter Care Teams Wallpaper Hanger Relationship Specialty Start Date End Date Carolyn Davis MD [address] [place] [address] PCP - General 10/31/15 Ernie Baldwin MD [address] [place] [address] Surgeon Cardiothoracic Surgery 03/29/24 Magdi Bal MD 1225 [facility] [address] [place] [address] Consulting Physician Cardiology 03/29/24 documented as of this encounter
--- OUTSIDE RECORDS SUMMARY | 2024-07-19 22:18 | XMS_ITS | Encounter Summary ---
Author Organization [facility] Address [address] [place] [address] Care Team Providers Care Sales Team Member Name Role Phone Carolyn Davis MD Primary Care Provider + Reason for Visit * Reason Onset Date Comments Follow-up 11/25/2016 Encounter Details Date Type Department Care Team (Late st Contact Info) Description 11/25/2016 Telephone [facility] [address] [phone] Brenna Rodrigues Follow-up Social History Tobacco Use [...] on filedocumented in this encounter Care Teams Sales Team Member Relationship Specialty Start Date End Date Carolyn Davis MD [address] [facility] [address] [place] [address] PCP - General Family Medicine 09/04/16 documented as of this encounter
--- OUTSIDE RECORDS SUMMARY | 2024-07-19 22:18 | XMS_ITS | Patient Health Summary ---
Author Organization [facility] Address [address] [place] [address] Care Team Providers Care Environmental Solutions Engineer Name Role Phone Carolyn Davis MD Primary Care Provider + Note from Formerly named [facility],non-owned Affiliates and Associated Physician Practices is amultiple site organization consisting of ambulatory clinics and hospital sitesin [place], [place], [place] and [place]. This disclosure is being madepursuant to the Care Everywhere program and may not contain all information available regarding this patient. Last updated 18.[facility] Allergies No known active allergies Medications [...] ALLERGY RELIEF) 50 MCG/ACT nasal spray(Started 11/23/2016) [place] 2 Sprays into each nostril once daily [...] 25.5 11/23/2016 10:23 AM CDT Care Teams Environmental Solutions Engineer Relationship Specialty Start Date End Date Carolyn Davis MD [address] [place] [address] PCP - General Family Medicine 09/04/16
--- OUTSIDE RECORDS SUMMARY | 2024-07-19 22:18 | XMS_ITS | Referral Summary ---
Author Organization [facility] [address] Address [address] [place] [address] [address] [place] [address] Care Team Providers Care Flat Optical Element Maker Name Role Phone Carolyn Davis MD Primary Care Provider Ernie Baldwin MD Unavailable [phone] Tom Bal MD Unavailable Encounters Date Type Department Care Team Description 07/18/2024 Anticoagulation Visit [facility] Cardiology [address] [place] [address] [address] [place] [address] Rommel Bueno RN Aortic valve replaced (Primary Dx) 07/13/2024 1:00 PM CHAR FILTER OPERATOR Ancillary Procedure [address] [place] [address] History of mechanical aortic valve replacement 07/05/[address] [place] [address] Tom Bal MD 06/24/2024 Anticoagulation Visit [address] [place] [address] Lu Rhoades RN Aortic valve replaced (Primary Dx) 06/24/[address] [place] [address] Tom Bal MD INR results 06/15/2024 11:30 AM CHAR FILTER OPERATOR Office Visit [facility] Cardiology [address] [place] [address] [place] [phone] Tom Bal MD History of mechanical aortic valve replacement (Primary Dx); Nonrheumatic aortic valve stenosis; Essential hypertension; History of tobacco abuse 05/27/2024 Anticoagulation Visit [facility] Cardiology [address] [place] [address] [place] [phone] Angela Vines RN Aortic valve replaced (Primary Dx) 05/27/2024 Telephone [place] [address] [place] [address] Tom Bal MD 05/13/2024 Anticoagulation Visit [place] [address] [place] [phone] Lu Rhoades RN Aortic valve replaced (Primary Dx) 05/13/2024 Telephone [place] [address] [place] [phone] Tom Bal MD 04/29/2024 Anticoagulation Visit [place] [address] [place] [phone] Agnela Vines RN Aortic valve replaced (Primary Dx) 04/29/2024 Telephone [place] [address] [place] [phone] Tom Bal MD 04/28/2024 11:15 AM CDT Office Visit [facility] Surgery [address] [place] [address] [place] [phone] Re Hicks NP S/P AVR (aortic valve replacement) (Primary Dx) 04/25/2024 Documentation [facility] Surgery [address] [place] [address] [address] [place] [address] Re Hicks NP INR Management 04/22/2024 Orders Only [facility] Surgery [address] [place] [address] [address] [place] [address] Re Hicks NP from Last [...] often do you attend chur ch or religion services? Never 03/24/2024 Do you belong to any clubs o r organizations such as uatsdin groups, unions, fraternal or athletic groups, or [...] in the past [address] [facility], were you homeless or living in a usp (including now)? No 03/24/2024 Personal Safety Answer Date Recorded Have you ever been in or are you currently in a harmful physical or emotional relationship or is someone making you feel afraid or unsafe? Denies 03/22/2024 Sex and Gender Information Value Date Recorded Sex Assigned at Not on file Legal Sex Male 1:59 AM CHAR FILTER OPERATOR Gender Identity Not on file Sexual Orientation Not on file Last Filed Vital Signs Vital Sign Reading Time Taken Comments Blood Pressure 114/48 07/13/2024 1:35 PM CHAR FILTER OPERATOR Pulse 72 06/15/2024 11:37 AM CHAR FILTER OPERATOR Temperature 36.5 ??C (97.7 ??F) 03/30/2024 12:38 PM C DT Respiratory Rate 16 04/28/2024 11:55 AM CDT Oxygen Saturation 99% 06/15/2024 11:37 AM CHAR FILTER OPERATOR Inhaled Oxygen Concentration - - Weight 88.5 kg (195 lb) 06/15/2024 11:37 AM CHAR FILTER OPERATOR Height 182.9 cm (6') 06/15/2024 11:37 AM CHAR FILTER OPERATOR Body Mass Index 26.45 06/15/2024 11:37 AM CHAR FILTER OPERATOR Plan of Treatment Not on file Medical Devices Implanted Type Area Guidance Consultant Device Identifier Shelf Expiration Date Model / Serial / Lot On-X Intrnl Valve Coronary Aortic Mechanical On X 23mm [id number] - [id number] - [id number] Implanted:Qty: 1 on 03/22/2024 by Ernie Baldwin MD at [facility] N/A: Heart On-X Intrnl [id number] 01/13/2029 [id number] / [id number] / [employer] Screw Bone Slf Drl Full Thread Locking 3.5x16mm Ti 100.035.16 - [id number] Implanted:Qty: 6 on 03/22/2024 by Ernie Baldwin MD at [facility] N/A: Chest Wall [employer] 100.035.1 6 / / [employer] Screw Bone Slf Drl Full Thread Locking 3.5x18mm Ti 100.035.18 - [id number] Implanted:Qty: 10 on 03/22/2024 by Ernie Baldwin MD at [facility] N/A: Chest Wall [employer] 100.035.1 8 / / [employer] Plate Bone Low Profile 4 Hole Box Sternum Ti 115.103.04 - [id number] Implanted:Qty: 1 on 03/22/2024 by Ernie Baldwin MD at [facility] N/A: Chest Wall [employer] 115.103.0 4 / / [employer] Plate Bone Low Profile 6 Hole O Concave Sternum Ti 115.604.06 - [id number] Implanted:Qty: 1 on 03/22/2024 by Ernie Baldwin MD at [facility] N/A: Chest Wall [employer] 115.604.0 6 / / [employer] Plate Bone Low Profile 6 Hole H Shape Sternum Ti 115.102.06 - [id number] Implanted:Qty: 1 on 03/22/2024 by Ernie Baldwin MD at [facility] N/A: Chest Wall [employer] 115.102.0 6 / / Procedures Procedure Name Priority Date/Time Associated Diagnosis Comments PROTIME-INR Routine 07/16/2024 TRANSTHORACIC ECHO (TTE) COMPLETE W DOPPLER/CF WO CONTRAST Routine 07/13/2024 1:41 PM CHAR FILTER OPERATOR History of mechanical aortic valve replacement PROTIME-INR Routine 06/24/2024 PROTIME-INR Routine 05/27/2024 PROTIME-INR Routine 05/13/2024 PROTIME-INR Routine 04/29/2024 from Last 3 Months Results * (ABNORMAL) Protime-INR (07/16/2024) INR 1.90(A) 0.90 - 1.10 EXTERNAL LAB Blood us Historical Provider LAB BLOOD ORDERABLES Rita nannette Result EXTERNAL LAB * TRANSTHORACIC ECHO (TTE) COMPLETE W DOPPLER/CF WO CONTRAST (07/13/2024 1:41 PM CHAR FILTER OPERATOR) Anatomical Region Laterality Modality Ultrasound 07/13/2024 1:39 PM CHAR FILTER OPERATOR Narrative 07/13/2024 3:27 PM CHAR FILTER OPERATOR [facility] Medical [facility] Cardiology [address] [facility] [address], [place] [address] [address] [facility] [address], [place] [address] P:[phone] P:[phone] Echocardiographic Report Patient Name: STEPHAN NUNEZ A : 1965 Study Date: 07/13/2024 1:39:06 PM Gender: M Tech: Location: [facility] Provider: TOM BAL Height(Cm): 183 BSA: [...] [ 1.70 - 2.10 ] LVOT Peak Etsfaye ?1.31 m/s ?[ 0.70 - 1.10 ] LVOT VTI ? 32.64 cm MV E Peak Tesfaye ?1.04 m/s ?[ 0.60 - 1.30 ] MV A Peak Tesfaye ?0.99 m/s ?[ 1.00 - 1.20 ] MV Decel Time ?250 msec ?[ 104 - 258 ] 2D/MM ?Value ? Range ?Doppler ?Value ? Range - ?? FINDINGS: Interpretation Site: Exam was interpreted at [facility]. Left Ventricle: Normal left ventricular size. [...] jet. Electronically Signed By: Tom Bal MD, [facility] 07/13/2024 3:26:22 PM CHAR FILTER OPERATOR Procedure Note Tom Bal MD - 07/13/2024 [facility] Medical [facility] Cardiology [address] [facility] [address], [place] [address] [address] [facility] [address], [place] [address] P:[phone] P:[phone] Echocardiographic Report Patient Name: STEPHAN NUNEZ A : 1965 Study Date: 07/13/2024 1:39:06 PM Gender: M Tech: CONCETTA Location: [facility] Provider: TOM BAL Height(Cm): 183 BSA: [...] FINDINGS: Interpretation Site: Exam was interpreted at [facility]. Left Ventricle: Normal left ventricular size. [...] valve. Trivial MR. S/P SAVR using 23-millimeter [place] mechanical aortic valve. Aortic valveprosthesis not well visualized. Peak Velocity of 2.20 m/s. Mean gradient of 9.0 mmHg. DVI0.59. Gradients normal for valve type and size. Unable to assess RVSP due to inadequate TR jet. Electronically Signed By: Tom Bal MD, [facility] 07/13/2024 3:26:22 PM CHAR FILTER OPERATOR us Tom Bal MD CV ECHO PROCEDURES Final Result * (ABNORMAL) Protime-INR (06/24/2024) INR 2.70(A) 0.90 - 1.10 EXTERNAL LAB Blood Result [facility] Provider MD LAB BLOOD ORDERABLES Rita l Result EXTERNAL LAB * (ABNORMAL) Protime-INR (05/27/2024) INR 2.90(A) 0.90 - 1.10 EXTERNAL LAB Blood Result [facility] Provider MD LAB BLOOD ORDERABLES Rita l Result EXTERNAL LAB * (ABNORMAL) Protime-INR (05/13/2024) INR 2.40(A) 0.90 - 1.10 EXTERNAL LAB Blood Result [facility] Provider MD LAB BLOOD ORDERABLES Rita l Result Performing Organization Address City/[facility]/ZIP Co de Phone Number EXTERNAL LAB * (ABNORMAL) Protime-INR (04/29/2024) INR 3.40(A) 0.90 - 1.10 EXTERNAL LAB Blood Result [facility] Provider MD LAB BLOOD ORDERABLES Rita l Result Performing Organization Address City/[facility]/ZIP Co de Phone Number EXTERNAL LAB from Last 3 Months Insurance [facility] [place] [address] [employer] OPEN ACCESS [employer] OPEN ACCESS [facility] OPEN ACCESS [employer] Advance Directives For more information, please contact: [phone] * Full Code (Latest Code Status on File) Date Activated Date Inactivated Comments 03/22/2024 12:28 PM 03/30/2024 6:00 PM Care Teams Flat Optical Element Maker Relationship Specialty Start Date End Date Carolyn Davis MD [address] [facility] [address] [place] [address] PCP - General 10/31/15 Ernie Baldwin MD [address] [facility] [address]02 [place] [address] Surgeon Cardiothoracic Surgery 03/29/24 Tom Bal MD [address] [facility] [address] [place] [address] Consulting Physician Cardiology 03/29/24
--- OUTSIDE RECORDS SUMMARY | 2024-07-19 22:18 | XMS_ITS | Encounter Summary ---
Author Organization [facility] Healthcare Address [address] [place] [address] Care Team Providers Care Space Engineer Name Role Phone Carolyn Davis MD Primary Care Provider Ernie Baldwin MD Unavailable [phone] Tom Bal MD Unavailable Reason for Referral * Cardiology (Routine) - Closed Specialty Diagnoses / Procedures Referred By Kary t Referred To Contact Diagnoses History of mechanical aortic valve replacement Procedures Transthoracic Echo (TTE) Complete W Doppler/CF Tom Bal MD [address] [address] Phone: tel: fax: [facility] Cardiology [address] [facility] [address] [place] [address] Phone: tel: fax: Referral ID Status Reason Start Date Expiration Date Visits Re quested Visits Authorized [id number] Closed 06/15/2024 07/15/2025 1 1 OMER MARKETING INTERN * Consultation (Routine) - Closed Specialty Diagnoses / Procedures Referred By Contkemal t Referred To Contact Diagnoses History of mechanical aortic valve replacement Tom Bal MD [address] [address] Phone: tel: fax: External Order Referral ID Status Reason Start Date Expiration Date V isits Requested Visits Authorized [id number] Closed Specialty Services Required 06/15/2024 07/15/2025 1 1 Question Answer Please select the performing region: External Order [[id number]] Select a phase: Phase 2 # of visits: 1 OMER MARKETING INTERN Reason for Visit * Reason Comments Follow-up Post op f/u Encounter Details Date Type Department Care Team (Late st Contact Info) Description 06/15/2024 11:30 AM CUSTOMER MARKETING INTERN Office Visit [facility] Cardiology [address] [place] [address] Tom Bal MD [address] [address] History of mechanical aortic valve replacement (Primary [...] often do you attend chur ch or congregational services? Never 03/24/2024 Do you belong to any clubs o r organizations such as buddhism groups, unions, fraternal or athletic groups, or [...] any time in the past 12 m [facility], were you homeless or living in a mcc (including now)? No 03/24/2024 Personal Safety Answer Date Recorded Have you ever been in or are you currently in a harmful physical or emotional relationship or is someone making you feel afraid or unsafe? Denies 03/22/2024 Sex and Gender Information Value Date Recorded Sex Assigned at Not on file Legal Sex Male 1:59 AM CUSTOMER MARKETING INTERN Gender Identity Not on file Sexual Orientation Not on file documented as of this encounter Last Filed Vital Signs Vital Sign Reading Time Taken Comments Blood Pressure 122/60 06/15/2024 11:37 AM CUSTOMER MARKETING INTERN Pulse 72 06/15/2024 11:37 AM CUSTOMER MARKETING INTERN Temperature - - Respiratory Rate - - Oxygen Saturation 99% 06/15/2024 11:37 AM CUSTOMER MARKETING INTERN Inhaled Oxygen Concentration - - Weight 88.5 kg (195 lb) 06/15/2024 11:37 AM CUSTOMER MARKETING INTERN Height 182.9 cm (6') 06/15/2024 11:37 AM CUSTOMER MARKETING INTERN Body Mass Index 26.45 06/15/2024 11:37 AM CUSTOMER MARKETING INTERN documented in this encounter Progress Notes * Tom Bal MD - 06/15/2024 11:30 AM CST [facility] FOLLOW UP 06/15/2024 Chief Complaint Patient presents with Follow-up Post op f/u 58 y.o. male with s/p mechanical AVR, PSVT, anxiety/panic attacks. Patient was seen in [facility] on 06/22/15 when he presented with [...] last office visit, patient was admitted to [facility] on 02/16/2022 after he apparently had [...] duplex-less than 50% stenosis bilateral ICA. 02/17/2022, [facility] Echo-normal LV size, EF 60-65%, grade 1 diastolic dysfunction, aortic stenosis, valve area 1.4 cm2,V max 2.62 m/sec, mean gradient 17 mmHg. 02/17/2022; Dr. Cage-[facility] Lipids-total cholesterol 227, HDL 34, triglycerides [...] 02/23/2024 CT surgery-Aortic valve replacement using 23-millimeter [place] mechanical aortic valve. 03/22/2024; Dr. Baldwin Echo-Normal [...] course and echo findings. Tom Bal MD OMER MARKETING INTERN documented in this encounter Plan of Treatment Scheduled Referrals Name Type Priority Associated Diagnoses Orde r Schedule Ambulatory referral to Cardiac Rehab Outpatient Referral Routine History of mechanical aortic valve replacement Expected: 06/29/2024 (Approximate), Expires: 06/15/2025 documented as of this encounter Results * TRANSTHORACIC ECHO (TTE) COMPLETE W DOPPLER/CF WO CONTRAST (07/13/2024 1:41 PM CUSTOMER MARKETING INTERN) Anatomical Region Laterality Modality Ultrasound 07/13/2024 1:39 PM CUSTOMER MARKETING INTERN Narrative 07/13/2024 3:27 PM CUSTOMER MARKETING INTERN [facility] Cardiology [address], [place] [address] [address], [place] [address] P:[phone] P:[phone] Echocardiographic Report Patient Name: STEPHAN NUNEZ A : 1965 Study Date: 07/13/2024 1:39:06 PM Gender: M Tech: Location: [facility] Provider: TOM BAL Height(Cm): 183 BSA: [...] FINDINGS: Interpretation Site: Exam was interpreted at [facility]. Left Ventricle: Normal left ventricular [...] valve. Aortic Valve: S/P SAVR using 23-millimeter [place] mechanical aortic valve. Peak Velocity of 2.20 [...] valve. Trivial MR. S/P SAVR using 23-millimeter [place] mechanical aortic valve. Aortic valve prosthesis not well visualized. Peak Velocity of 2.20 m/s. Mean gradient of 9.0 mmHg. DVI 0.59. Gradients normal for valve type and size. Unable to assess RVSP due to inadequate TR jet. Electronically Signed By: Tom Bal MD, [facility] 07/13/2024 3:26:22 PM CUSTOMER MARKETING INTERN Procedure Note Tom Bal MD - 07/13/2024 [facility] Cardiology [address] [facility] [address] [id number] [address] [facility] [address], [place] [address] P:[phone] P:[phone] Echocardiographic Report Patient Name: STEPHAN NUNEZ A : 1965 Study Date: 07/13/2024 1:39:06 PM Gender: M Tech: Location: [facility] Provider: TOM BAL Height(Cm): 183 BSA: [...] FINDINGS: Interpretation Site: Exam was interpreted at [facility]. Left Ventricle: Normal left ventricular [...] jet. Electronically Signed By: Tom Bal MD, [facility] 07/13/2024 3:26:22 PM CUSTOMER MARKETING INTERN us Tom Bal MD CV ECHO PROCEDURES [...] 05/06/2024 added in this encounter Care Teams Space Engineer Relationship Specialty Start Date End Date Carolyn Davis MD [address] [place] [address] PCP - General 10/31/15 Ernie Baldwin MD [address] [facility] [address] [place] [address] Surgeon Cardiothoracic Surgery 03/29/24 Tom Bal MD [address] [facility] [address] [place] [address] Consulting Physician Cardiology 03/29/24 documented as of this encounter
--- OUTSIDE RECORDS SUMMARY | 2024-07-19 22:18 | XMS_ITS | Encounter Summary ---
Author Organization [facility] Healthcare Address [address] [place] [address] Care Team Providers Care Bobbin Trucker Name Role Phone Carolyn Davis MD Primary Care Provider Ernie Baldwin MD Unavailable [phone] Tom De Jesus MD Unavailable Encounter Details Date Type Department Care Team (Late st Contact Info) Description 04/29/2024 Telephone [facility] Cardiology [address] [place] [address] Tom De Jesus MD [address] [address] Social History Tobacco Use Types [...] week 03/24/2024 How often do you attend [facility] or [facility] services? Never 03/24/2024 Do you belong to any clubs o r organizations such as yazidi groups, unions, fraternal or athletic groups, or [...] any time in the past 12 m [facility], were you homeless or [...] on file Legal Sex Male 1:59 AM STEEL FITTER Gender Identity Not on file Sexual Orientation [...] on filedocumented in this encounter Care Teams Bobbin Trucker Relationship Specialty Start Date End Date Carolyn Davis MD [address] [place] [address] PCP - General 10/31/15 Ernie Baldwin MD [address] [place] [address] Surgeon Cardiothoracic Surgery 03/29/24 Tom De Jesus MD [address] [facility] [address] [place] [address] Consulting Physician Cardiology 03/29/24 documented as of this encounter
--- OUTSIDE RECORDS SUMMARY | 2024-07-19 22:18 | XMS_ITS | Encounter Summary ---
Author Organization [facility] Address [address] [facility] [address] [place] [address] Phone Care Team Providers Care Cigar Bander Hand Name Role Phone Carolyn Davis MD Primary Care Provider Ernie Baldwin MD Unavailable [phone] Tom De Jesus MD Unavailable Reason for Visit * Reason Onset Date Comments INR Management 04/25/2024 Encounter Details Date Type Department Care Team (Late st Contact Info) Description 04/25/2024 Documentation [facility] Surgery [address] [facility] [address] [place] [address] Re Hicks NP [address] [facility] [address] [place] [address] INR Management Social History Tobacco [...] often do you attend chur ch or yazidi services? Never 03/24/2024 Do you belong to any clubs o r organizations such as adventist groups, unions, fraternal or athletic groups, or [...] time in the past 12 m [facility], were you homeless or living in a detention (including now)? No 03/24/2024 Personal Safety Answer Date Recorded Have you ever been in or are you currently in a harmful physical or emotional relationship or is someone making you feel afraid or unsafe? Denies 03/22/2024 Sex and Gender Information Value Date Recorded Sex Assigned at Not on file Legal Sex Male 1:59 AM POLICY LOAN CALCULATOR Gender Identity Not on file Sexual Orientation [...] on filedocumented in this encounter Care Teams Cigar Bander Hand Relationship Specialty Start Date End Date Carolyn Davis MD [address] [place] [address] PCP - General 10/31/15 Ernie Baldwin MD [address] [place] [address] Surgeon Cardiothoracic Surgery 03/29/24 Tom De Jesus MD [address] [facility] [address] [place] [address] Consulting Physician Cardiology 03/29/24 documented as of this encounter
--- OUTSIDE RECORDS SUMMARY | 2024-07-19 22:18 | XMS_ITS | Clinical Summary ---
Author Organization [facility] [employer] Address [address] [facility] [place] [address] Care Team Providers Care Skiing Teacher Name Role Phone Carolyn Davis MD Primary Care Provider + Source Comments [facility] [employer],non-owned Affiliates and Associated Physician Practices is amultiple site organization consisting of ambulatory clinics and hospital sitesin [place], [place], [place] and [place]. This disclosure is being madepursuant to the Care Everywhere program and may not contain all information available regarding this patient. Last updated 18.[facility] [employer] Allergies No known active allergies Medications * [...] MCG/ACT nasal sprayIndications:Spencer al Signs and Symptoms [place] 2 Sprays into each nostril once daily [...] age to complete this topic Care Teams Skiing Teacher Relationship Specialty Start Date End Date Carolyn Davis MD [address] [place] [address] PCP - General Family Medicine 09/04/16
--- OUTSIDE RECORDS SUMMARY | 2024-07-19 22:18 | XMS_ITS | Encounter Summary ---
Author Organization [facility] Healthcare Address [address] [place] [address] Care Team Providers Care Reimbursement Liaison Name Role Phone Carolyn Davis MD Primary Care Provider Ernie Baldwin MD Unavailable [phone] Tom De Jesus MD Unavailable Encounter Details Date Type Department Care Team (Latest Contact Info) Description 07/18/2024 Anticoagulation Visit [facility] Medical [facility] Cardiology [address] [place] [address] Rommel Bueno, RN Aortic valve [...] How often do you attend chur or hindu services? Never 03/24/2024 Do you belong to any clubs o r organizations such as taoist groups, unions, fraternal or athletic groups, or [...] any time in the past 12 m [facility], were you homeless or living in a detention (including now)? No 03/24/2024 Personal Safety Answer Date Recorded Have you ever been in or are you currently in a harmful physical or emotional relationship or is someone making you feel afraid or unsafe? Denies 03/22/2024 Sex and Gender Information Value Date Recorded Sex Assigned at Not on file Legal Sex Male 1:59 AM TALENT ACQUISITION PROGRAM MANAGER Gender Identity Not on file Sexual [...] means documented in this encounter Care Teams Reimbursement Liaison Relationship Specialty Start Date End Date Carolyn Davis MD [address] [place] [address] PCP - General 10/31/15 Ernie Baldwin MD [address] [place] [address] Surgeon Cardiothoracic Surgery 03/29/24 Tom De Jesus MD [address] [facility] [address] [place] [address] Consulting Physician Cardiology 03/29/24 documented as of this encounter
--- OUTSIDE RECORDS SUMMARY | 2024-07-19 22:18 | XMS_ITS | Encounter Summary ---
Author Organization [facility] Address [address] [facility] [place] [address] Care Team Providers Care Game Operator Name Role Phone Carolyn Davis MD Primary Care Provider + Reason for Visit * Reason Comments Sinusitis Encounter Details Date Type Department Care Team (Late st Contact Info) Description 09/04/2016 11:20 AM ELASTIC ASSEMBLER Office Visit [facility] AT [address] [address] Provider, [facility] Acute suppurative otitis media of left [...] Comments Blood Pressure 144/82 09/04/2016 9:36 AM ELASTIC ASSEMBLER Pulse 89 09/04/2016 9:36 AM ELASTIC ASSEMBLER Temperature 37 ??C (98.6 ??F) 09/04/2016 9:36 AM ELASTIC ASSEMBLER Respiratory Rate - - Oxygen Saturation 97% 09/04/2016 9:36 AM ELASTIC ASSEMBLER Inhaled Oxygen Concentration - - Weight 88.9 kg (196 lb) 09/04/2016 9:36 AM ELASTIC ASSEMBLER Height 182.9 cm (6') 09/04/2016 9:36 AM ELASTIC ASSEMBLER Body Mass Index 26.58 09/04/2016 9:36 AM ELASTIC ASSEMBLER documented in this encounter Patient Instructions * Patient Instructions* Brisa Mazariegos APRN-CNP - 09/04/2016 9:56 AM ELASTIC ASSEMBLER Increase water intake and rest May take [...] refuse treatment. The above information is an resident care aide only. It is not intended as medical advice for individual conditions or treatments. Talk to your doctor, nurse or pharmacist before following any medical regimen to see if it is safe and effective for you. ?? 2016 [employer]. Information is for End User's use only and may not be sold, redistributed or otherwise used for commercial purposes. All illustrations and images included in CareNotes?? are the copyrighted property of [employer].D.A[employer] Inc[employer] or [employer]. Sinusitis, Cotton Acreage Measurer GENERAL INFORMATION: Sinusitis is inflammation or infection [...] refuse treatment. The above information is an resident care aide only. It is not intended as medical advice for individual conditions or treatments. Talk to your doctor, nurse or pharmacist before following any medical regimen to see if it is safe and effective for you. ?? 2015 [employer]. Information is for End User's use only and may not be sold, redistributed or otherwise used for commercial purposes. All illustrations and images included in CareNotes?? are the copyrighted property of [employer] or [employer]. Smoking Cessation Quitting smoking is important to [...] and skin patches. Some may be available [id number] and others require a prescription. ?? Antidepressant [...] Document Reviewed: 10/28/2012 ExitCare?? Patient Information ??2013 [employer]. TIC ASSEMBLER documented in this encounter Progress Notes * [...] on sinusitis, ear infection and smoking cessation TIC ASSEMBLER documented in this encounter Plan of Treatment Not on file documented as of this encounter Visit Diagnoses Diagnosis Acute suppurative otitis media of left ear without spontaneous rupture of tympanic membrane, recurrence not specified- Primary Smoking Tobacco use disorder Acute non-recurrent maxillary sinusitis documented in this encounter Care Teams Game Operator Relationship Specialty Start Date End Date Carolyn Davis MD [address] [facility] [address] [place] [address] PCP - General Family Medicine 09/04/16 documented as of this encounter
--- OUTSIDE RECORDS SUMMARY | 2024-07-19 22:18 | XMS_ITS | Encounter Summary ---
Author Organization [facility] Address [address] [place] [address] Phone Care Team Providers Care Manager Lsw Name Role Phone Carolyn Davis MD Primary Care Provider Ernie Baldwin MD Unavailable [phone] Tom De Jesus MD Unavailable Reason for Visit * Reason Onset Date Comments Anticoagulation 04/05/2024 Encounter Details Date Type Department Care Team (Late st Contact Info) Description 04/05/2024 Documentation [facility] Surgery [address] [facility] [address] [place] [address] [place] [address] [facility] 1 [facility] [address] [place] [address] Anticoagulation Social History Tobacco Use Types Packs/Day [...] often do you attend chur ch or latter day services? Never 03/24/2024 Do you belong to any clubs o r organizations such as moravian groups, unions, fraternal or athletic groups, or [...] on file Legal Sex Male 1:59 AM SPACE CONTROLLER Gender Identity Not on file Sexual Orientation [...] to recheck on as well. Eve Cota GRIPPER INSTALLER documented in this encounter Plan of Treatment Not on file documented as of this encounter Visit Diagnoses Not on filedocumented in this encounter Care Teams Manager Lsw Relationship Specialty Start Date End Date Carolyn Davis MD [address] [place] [address] PCP - General 10/31/15 Ernie Baldwin MD [address] [place] [address] Surgeon Cardiothoracic Surgery 03/29/24 Tom De Jesus MD [address]25 [facility] [address] [place] [address] Consulting Physician Cardiology 03/29/24 documented as of this encounter
--- OUTSIDE RECORDS SUMMARY | 2024-07-19 22:18 | XMS_ITS | Encounter Summary ---
Author Organization [facility] Address [address] [place] [address] Phone Care Team Providers Care Nuclear Monitoring Technician Name Role Phone Carolyn Davis MD Primary Care Provider Ernie Baldwin MD Unavailable [phone] Tom De Jesus MD Unavailable Encounter Details Date Type Department Care Team (Late st Contact Info) Description 04/12/2024 Documentation [facility] Surgery [address] [facility] [address] [place] [address] Eve Cota, HUY [address] [facility] 1 [facility] [address] [place] [address] Social History Tobacco Use Types [...] often do you attend chur ch or hinduism services? Never 03/24/2024 Do you belong to any clubs o r organizations such as quaker groups, unions, fraternal or athletic groups, or [...] any time in the past 12 m [facility], were you homeless or living in a retirement (including now)? No 03/24/2024 Personal Safety Answer Date Recorded Have you ever been in or are you currently in a harmful physical or emotional relationship or is someone making you feel afraid or unsafe? Denies 03/22/2024 Sex and Gender Information Value Date Recorded Sex Assigned at Not on file Legal Sex Male 1:59 AM RECYCLABLE PRODUCTS SORTER Gender Identity Not on file Sexual Orientation Not on file documented as of this encounter Progress Notes * Eve Cota NP - 04/12/2024 3:37 PM CDT INR today during HH visit 4.1. Orders given to stop Lovenox injections. Continue 7.5mg daily for now as patient was subtherapeutic on 7.5 alt with 5mg prior; will recheck on Sunday 04/15. Eve Cota SENIOR MANAGER QUALITY ASSURANCE documented in this encounter Plan of Treatment Not on file documented as of this encounter Visit Diagnoses Not on filedocumented in this encounter Care Teams Nuclear Monitoring Technician Relationship Specialty Start Date End Date Carolyn Davis MD [address] [facility] [address] [place] [address] PCP - General 10/31/15 Ernie Baldwin MD [address] [place] [address] Surgeon Cardiothoracic Surgery 03/29/24 Tom De Jesus MD 12[address] [facility] [address] [place] [address] Consulting Physician Cardiology 03/29/24 documented as of this encounter
--- OUTSIDE RECORDS SUMMARY | 2024-07-19 22:18 | XMS_ITS | Referral Summary ---
Author Organization [facility] [employer] Address [address] [facility] [place] [address] Care Team Providers Care Pocket Flap Creasing Machine Operator Name Role Phone Carolyn Davis MD Primary Care Provider + Source Comments [facility],non-owned Affiliates and Associated Physician Practices is amultiple site organization consisting of ambulatory clinics and hospital sitesin [place], [place], [place] and [place]. This disclosure is being madepursuant to the Care Everywhere program and may not contain all information available regarding this patient. Last updated 18.[facility] Allergies No known active allergies Medications * [...] MCG/ACT nasal sprayIndications:Spencer al Signs and Symptoms [place] 2 Sprays into each nostril once daily [...] of Treatment Not on file Care Teams Pocket Flap Creasing Machine Operator Relationship Specialty Start Date End Date Carolyn Davis MD [address] [place] [address] PCP - General Family Medicine 09/04/16
--- OUTSIDE RECORDS SUMMARY | 2024-07-19 22:18 | XMS_ITS | Encounter Summary ---
Author Organization [facility] Healthcare Address [address] [place] [address] Care Team Providers Care Duct Layer Name Role Phone Carolyn Davis MD Primary Care Provider Ernie Baldwin MD Unavailable [phone] Tom De Jesus MD Unavailable Encounter Details Date Type Department Care Team (Latest Contact Info) Description 05/27/2024 Anticoagulation Visit [facility] Medical Group Cardiology [address] [place] [address] Angela Vines, RN Aortic valve [...] any clubs o r organizations such as holiness groups, unions, fraternal or athletic groups, or [...] any time in the past 12 m [facility], were you homeless or living in [...] file Legal Sex Male 1:59 AM IT PROFESSIONAL Gender Identity Not on file Sexual [...] means documented in this encounter Care Teams Duct Layer Relationship Specialty Start Date End Date Carolyn Davis MD [address] [place] [address] PCP - General 10/31/15 Ernie Baldwin MD [address] [place] [address] Surgeon Cardiothoracic Surgery 03/29/24 Tom De Jesus MD [address] [facility] [address] [place] [address] Consulting Physician Cardiology 03/29/24 documented as of this encounter
--- OUTSIDE RECORDS SUMMARY | 2024-07-19 22:18 | XMS_ITS | Encounter Summary ---
Author Organization [facility] Address [address] [place] [address] Care Team Providers Care Bottle Cleaner Name Role Phone Carolyn Davis MD Primary Care Provider + Reason for Visit * Reason Comments Sinusitis Ear Problem Encounter Details Date Type Department Care Team (Late st Contact Info) Description 11/23/2016 10:40 AM CDT Office Visit [facility] AT [address] [address] Provider, [facility] Acute sinusitis, recurrence not specified, unspecified location [...] refuse treatment. The above information is an physician's aide only. It is not intended as medical advice for individual conditions or treatments. Talk to your doctor, nurse or pharmacist before following any medical regimen to see if it is safe and effective for you. ?? 2016 [employer]. Information is for End User's use only and may not be sold, redistributed or otherwise used for commercial purposes. All illustrations and images included in CareNotes?? are the copyrighted property of [facility] [employer] or [email or web address]. documented in this encounter Progress Notes * Brad Alvarado APRN-CNP - 11/23/2016 10:[address] [facility] Chief Complaint Patient presents [...] (FLONASE ALLERGY RELIEF) 50 MCG/ACT nasal spray [place] 2 Sprays into eachnostril once daily Reasons: [...] ALLERGY RELIEF) 50 MCG/ACT nasal spray Sig: [place] 2 Sprays into each nostril once daily [...] type documented in this encounter Care Teams Bottle Cleaner Relationship Specialty Start Date End Date Carolyn Davis MD [address] [facility] [address] [place] [address] PCP - General Family Medicine 09/04/16 documented as of this encounter
--- OUTSIDE RECORDS SUMMARY | 2024-07-19 22:18 | XMS_ITS | Encounter Summary ---
Author Organization [facility] Address [address] [place] [address] Care Team Providers Care Logistics Analytics Manager Name Role Phone Carolyn Davis MD Primary Care Provider Ernie Baldwin MD Unavailable [phone] Tom De Jesus MD Unavailable Reason for Visit * Reason Onset Date Comments INR results 06/24/2024 Encounter Details Date Type Department Care Team (Late st Contact Info) Description 06/24/2024 Telephone [facility] Medical Group Cardiology [address] [place] [address] Tom De Jesus MD [address] [address] INR results Social History Tobacco [...] 03/24/2024 How often do you attend [facility] or restorationism services? Never 03/24/2024 Do you belong to [...] any time in the past 12 m [facility], were you homeless or living in [...] file Legal Sex Male 1:59 AM KNIFE BLADE POLISHER Gender Identity Not on file Sexual Orientation Not on file documented as of this encounter Miscellaneous Notes * Telephone Encounter - Lu Rhoades RN - 06/24/2024 11:05 AM KNIFE BLADE POLISHER See ac notes. Sent standing order to . Pt is also checking into a home machine-he will let us know what his insurance company says. E BLADE POLISHER * Telephone Encounter - Kerrie Menendez - 06/24/2024 10:50 AM CST [facility] Nurse calling in to report patients INR. INR results 2.7 06/24. E BLADE POLISHER documented in this encounter Plan of Treatment [...] anticoagulants documented in this encounter Care Teams Logistics Analytics Manager Relationship Specialty Start Date End Date Carolyn Davis MD [address] [facility] [address] [place] [address] PCP - General 10/31/15 Ernie Baldwin MD [address] [place] [address]02 [place] [address] Surgeon Cardiothoracic Surgery 03/29/24 Tom De Jesus MD [address] [facility] [address] [place] [address] Consulting Physician Cardiology 03/29/24 documented as of this encounter
--- OUTSIDE RECORDS SUMMARY | 2024-07-19 22:18 | XMS_ITS | Encounter Summary ---
Author Organization [facility] Address [address] [place] [address] Phone Care Team Providers Care Box Finisher Name Role Phone Carolyn Davis MD Primary Care Provider Ernie Baldwin MD Unavailable [phone] Tom De Jesus MD Unavailable Reason for Visit * Reason Onset Date Comments Anticoagulation 04/15/2024 Encounter Details Date Type Department Care Team (Late st Contact Info) Description 04/15/2024 Documentation [facility] Surgery [address] [facility] [address] [place] [address] [place] [address] [facility] [address] [facility] [address] [place] [address] Anticoagulation Social History Tobacco Use Types Packs/Day [...] any time in the past 12 m [facility], were you homeless or living in a group home (including now)? No 03/24/2024 Personal Safety Answer Date Recorded Have you ever been in or are you currently in a harmful physical or emotional relationship or is someone making you feel afraid or unsafe? Denies 03/22/2024 Sex and Gender Information Value Date Recorded Sex Assigned at Not on file Legal Sex Male 1:59 AM BUILDING CONSTRUCTION FOREMAN Gender Identity Not on file Sexual Orientation [...] on filedocumented in this encounter Care Teams Box Finisher Relationship Specialty Start Date End Date Carolyn Davis MD [address] [place] [address] PCP - General 10/31/15 Ernie Baldwin MD [address] [place] [address] Surgeon Cardiothoracic Surgery 03/29/24 Tom De Jesus MD [address] [facility] [address] [place] [address] Consulting Physician Cardiology 03/29/24 documented as of this encounter
--- OUTSIDE RECORDS SUMMARY | 2024-07-19 22:18 | XMS_ITS | Clinical Summary ---
Author Organization [facility] [address] Address [address] [place] [address] Care Team Providers Care Extension Service Specialist In Charge Name Role Phone Carolyn Davis MD Primary Care Provider Ernie Baldwin MD Unavailable [phone] Tom Bal MD Unavailable Allergies No known [...] 07/18/2024 Anticoagulation Visit [facility] [address] [place] [address] [place] [phone] Rommel Bueno RN Aortic valve replaced (Primary Dx) 07/13/2024 1:00 PM IRONWORKER MACHINE OPERATOR Ancillary Procedure [facility] [address] [place] [address] [place] [phone] History of mechanical aortic valve replacement 07/05/2024 Telephone [facility] [address] [place] [address] [place] [phone] Tom Bal MD 06/24/2024 Anticoagulation Visit [facility] [address] [place] [address] [place] [phone] Lu Rhoades RN Aortic valve replaced (Primary Dx) 06/24/2024 Telephone [facility] [address] [place] [address] [place] [phone] Tom Bal MD INR results 06/15/2024 11:30 AM IRONWORKER MACHINE OPERATOR Office Visit [facility] [address] [place] [address] [place] [phone] Tom Bal MD History of mechanical aortic valve replacement (Primary Dx); Nonrheumatic aortic valve stenosis; Essential hypertension; History of tobacco abuse 05/27/2024 Anticoagulation Visit [facility] [address] [place] [address] [place] [phone] Angela Vines RN Aortic valve replaced (Primary Dx) 05/27/2024 Telephone [place] [address] [place] [phone] Tom Bal MD 05/13/2024 Anticoagulation Visit [place] [address] [place] [phone] Lu Rhoades RN Aortic valve replaced (Primary Dx) 05/13/2024 Telephone [place] [address] [place] [phone] Tom Bal MD 04/29/2024 Anticoagulation Visit [place] [address] [place] [phone] Angela Vines RN Aortic valve replaced (Primary Dx) 04/29/2024 Telephone [place] [address] [place] [phone] Tom Bal MD 04/28/2024 11:15 AM CDT Office Visit [facility] Surgery [address] [place] [address] [address] [place] [address] Re Hicks NP S/P AVR (aortic valve replacement) (Primary Dx) 04/25/2024 Documentation [facility] Surgery [address] [place] [address] [address] [place] [address] Re Hicks NP INR Management 04/22/2024 Orders Only [facility] Surgery [address] [place] [address] [address] [place] [address] Re Hicks NP from Last [...] How often do you attend chur or buddhist services? Never 03/24/2024 Do you belong to any clubs o r organizations such as cheondoism groups, unions, fraternal or athletic groups, or [...] time in the past 12 m [facility], were you homeless or living [...] on file Legal Sex Male 1:59 AM IRONWORKER MACHINE OPERATOR Gender Identity Not on file Sexual Orientation Not on file Obstetrics History Last Filed Vital Signs Vital Sign Reading Time Taken Comments Blood Pressure 114/48 07/13/2024 1:35 PM IRONWORKER MACHINE OPERATOR Pulse 72 06/15/2024 11:37 AM IRONWORKER MACHINE OPERATOR Temperature 36.5 ??C (97.7 ??F) 03/30/2024 12:38 PM C DT Respiratory Rate 16 04/28/2024 11:55 AM CDT Oxygen Saturation 99% 06/15/2024 11:37 AM IRONWORKER MACHINE OPERATOR Inhaled Oxygen Concentration - - Weight 88.5 kg (195 lb) 06/15/2024 11:37 AM IRONWORKER MACHINE OPERATOR Height 182.9 cm (6') 06/15/2024 11:37 AM IRONWORKER MACHINE OPERATOR Body Mass Index 26.45 06/15/2024 11:37 AM IRONWORKER MACHINE OPERATOR Plan of Treatment Health Maintenance Due Date [...] this topic Medical Devices Implanted Type Area Appeals Examiner Device Identifier Shelf Expiration Date Model / Serial / Lot On-X Intrnl Valve Coronary Aortic Mechanical On X 23mm [id number] - [id number] - [id number] Implanted:Qty: 1 on 03/22/2024 by Ernie Baldwin MD at [facility] N/A: Heart On-X Intrnl [id number] 01/13/2029 [id number] / [id number] / [employer] Screw Bone Slf Drl Full Thread Locking 3.5x16mm Ti 100.035.16 - [id number] Implanted:Qty: 6 on 03/22/2024 by Ernie Baldwin MD at [facility] N/A: Chest Wall [employer] 100.035.1 6 / / [employer] Screw Bone Slf Drl Full Thread Locking 3.5x18mm Ti 100.035.18 - [id number] Implanted:Qty: 10 on 03/22/2024 by Ernie Baldwin MD at [facility] N/A: Chest Wall [employer] 100.035.1 8 / / [employer] Plate Bone Low Profile 4 Hole Box Sternum Ti 115.103.04 - [id number] Implanted:Qty: 1 on 03/22/2024 by Ernie Baldwin MD at [facility] N/A: Chest Wall [employer] 115.103.0 4 / / [employer] Plate Bone Low Profile 6 Hole O Concave Sternum Ti 115.604.06 - [id number] Implanted:Qty: 1 on 03/22/2024 by Ernie Baldwin MD at [facility] N/A: Chest Wall [employer] 115.604.0 6 / / [employer] Plate Bone Low Profile 6 Hole H Shape Sternum Ti 115.102.06 - [id number] Implanted:Qty: 1 on 03/22/2024 by Ernie Baldwin MD at [facility] N/A: Chest Wall [employer] 115.102.0 6 / / Procedures Procedure Name Priority Date/Time Associated Diagnosis Comments PROTIME-INR Routine 07/16/2024 TRANSTHORACIC ECHO (TTE) COMPLETE W DOPPLER/CF WO CONTRAST Routine 07/13/2024 1:41 PM IRONWORKER MACHINE OPERATOR History of mechanical aortic valve replacement PROTIME-INR Routine 06/24/2024 PROTIME-INR Routine 05/27/2024 PROTIME-INR Routine 05/13/2024 PROTIME-INR Routine 04/29/2024 from Last 3 Months Results * (ABNORMAL) Protime-INR (07/16/2024) INR 1.90(A) 0.90 - 1.10 EXTERNAL LAB Blood us Historical Provider LAB BLOOD ORDERABLES Rita l Result EXTERNAL LAB * TRANSTHORACIC ECHO (TTE) COMPLETE W DOPPLER/CF WO CONTRAST (07/13/2024 1:41 PM IRONWORKER MACHINE OPERATOR) Anatomical Region Laterality Modality Ultrasound 07/13/2024 1:39 PM IRONWORKER MACHINE OPERATOR Narrative 07/13/2024 3:27 PM IRONWORKER MACHINE OPERATOR [facility] Medical Group Cardiology [address], [place] [address] [address] [facility] [address], [place] [address] P:[phone] P:[phone] Echocardiographic Report Patient Name: STEPHAN NUNEZ A : 1965 Study Date: 07/13/2024 1:39:06 PM Gender: M Tech: Location: [facility] Provider: TOM BAL Height(Cm): 183 BSA: [...] FINDINGS: Interpretation Site: Exam was interpreted at [facility]. Left Ventricle: Normal left ventricular size. [...] valve. Aortic Valve: S/P SAVR using 23-millimeter Newton mechanical aortic valve. Peak Velocity of 2.20 [...] valve. Trivial MR. S/P SAVR using 23-millimeter Newton mechanical aortic valve. Aortic valve prosthesis not well visualized. Peak Velocity of 2.20 m/s. Mean gradient of 9.0 mmHg. DVI 0.59. Gradients normal for valve type and size. Unable to assess RVSP due to inadequate TR jet. Electronically Signed By: Tom Bal MD, [facility] 07/13/2024 3:26:22 PM IRONWORKER MACHINE OPERATOR Procedure Note Tom Bal MD - 07/13/2024 [facility] Medical Group Cardiology [address] [facility] [address] [address] [address] [facility] [address] [address] P:[phone] P:[phone] Echocardiographic Report Patient Name: STEPHAN NUNEZ A : 1965 Study Date: 07/13/2024 1:39:06 PM Gender: M Tech: [place] Location: [facility] Provider: TOM BAL Height(Cm): 183 BSA: [...] FINDINGS: Interpretation Site: Exam was interpreted at [facility]. Left Ventricle: Normal left ventricular size. [...] mitralvalve. Aortic Valve: S/P SAVR using 23-millimeter Newton mechanical aortic valve. Peak Velocity of 2.20 [...] jet. Electronically Signed By: Tom Bal MD, [facility] 07/13/2024 3:26:22 PM IRONWORKER MACHINE OPERATOR Result [facility] Tom Bal MD CV ECHO PROCEDURES Final Result * (ABNORMAL) Protime-INR (06/24/2024) [facility] INR 2.70(A) 0.90 - 1.10 EXTERNAL LAB Blood Result [facility] Historical Provider LAB BLOOD ORDERABLES Rita l Result Performing Organization Address [facility]/ZIP Co de Phone Number EXTERNAL LAB * (ABNORMAL) Protime-INR (05/27/2024) [facility] INR 2.90(A) 0.90 - 1.10 EXTERNAL LAB Blood Result [facility] Historical Provider LAB BLOOD ORDERABLES Rita l Result EXTERNAL LAB * (ABNORMAL) Protime-INR (05/13/2024) INR 2.40(A) 0.90 - 1.10 EXTERNAL LAB Blood Historical Provider MD LAB BLOOD ORDERABLES Rita l Result EXTERNAL LAB * (ABNORMAL) Protime-INR (04/29/2024) INR 3.40(A) 0.90 - 1.10 EXTERNAL LAB Blood Historical Provider MD LAB BLOOD ORDERABLES Rita l Result EXTERNAL LAB from Last 3 Months Insurance [employer] H[employer]/PPO Address: [address] [address] [place] [address] [employer] OPEN ACCESS [facility] [employer] HMO/PPO Address: [facility] [address] [place] [address] CIGNA OPEN ACCESS CIGNA OPEN ACCESS [facility] [employer] HMO/PPO Address: [address] [address] [place] [address] Advance Directives For more information, please contact: [phone] * Full Code (Latest Code Status on File) Date Activated Date Inactivated Comments 03/22/2024 12:28 PM 03/30/2024 6:00 PM Care Teams Extension Service Specialist In Charge Relationship Specialty Start Date End Date Carolyn Davis MD [address] [place] [address] PCP - General 10/31/15 Ernie Baldwin MD [address] [place] [address] Surgeon Cardiothoracic Surgery 03/29/24 Tom Bal MD [address] [facility] [address] [place] [address] Consulting Physician Cardiology 03/29/24
--- OUTSIDE RECORDS SUMMARY | 2024-07-19 22:18 | XMS_ITS | Encounter Summary ---
Author Organization [facility] Healthcare Address [address] [place] [address] Care Team Providers Care Personal Caregiver Name Role Phone Carolyn Davis MD Primary Care Provider Ernie Baldwin MD Unavailable [phone] Tom De Jesus MD Unavailable Encounter Details Date Type Department Care Team (Late st Contact Info) Description 07/05/2024 Telephone [facility] Medical Group Cardiology [address] [place] [address] Tom De Jesus MD [address] [address] Social History Tobacco Use Types [...] week 03/24/2024 How often do you attend [facility] or scientology services? Never 03/24/2024 Do you belong to any clubs o r organizations such as faith groups, unions, fraternal or athletic groups, or [...] any time in the past 12 m [facility], were you homeless or living in a longterm (including now)? No 03/24/2024 Personal Safety Answer Date Recorded Have you ever been in or are you currently in a harmful physical or emotional relationship or is someone making you feel afraid or unsafe? 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 Informed him I would complete orders and fax and they will be in contact with him for training. Informed pt the process takes about 3-4 weeks. Pt appreciated the assistance. NCIAL SALES ADVISOR * Telephone Encounter - Esthela Mccurdy - 07/05/2024 11:36 AM CST Pt requesting a call back in regard to the status of his home INR machine. Contact:[phone] NCIAL SALES ADVISOR documented in this encounter Plan of Treatment Not on file documented as of this encounter Visit Diagnoses Not on filedocumented in this encounter Care Teams Personal Caregiver Relationship Specialty Start Date End Date Carolyn Davis MD [address] [place] [address] PCP - General 10/31/15 Ernie Baldwin MD [address] [place] [address] Surgeon Cardiothoracic Surgery 03/29/24 Tom De Jesus MD [address] [facility] [address] [place] [address] Consulting Physician Cardiology 03/29/24 documented as of this encounter
--- OUTSIDE RECORDS SUMMARY | 2024-07-19 22:18 | XMS_ITS | Encounter Summary ---
Author Organization [facility] Address [address] [place] [address] Care Team Providers Care Boat Driver Name Role Phone Carolyn Davis MD Primary Care Provider + Reason for Visit * Reason Onset Date Comments Follow-up 09/06/2016 Encounter Details Date Type Department Care Team (Late st Contact Info) Description 09/06/2016 Telephone [facility] AT [address] [phone] Sonia Chaudhry Follow-up Social History [...] on filedocumented in this encounter Care Teams Boat Driver Relationship Specialty Start Date End Date Carolyn Davis MD [address] [facility] [address] [place] [address] PCP - General Family Medicine 09/04/16 documented as of this encounter
--- OUTSIDE RECORDS SUMMARY | 2024-07-19 22:18 | XMS_ITS | Encounter Summary ---
Author Organization [facility] Healthcare Address [address] [place] [address] Care Team Providers Care Shot Polisher And Inspector Name Role Phone Carolyn Davis MD Primary Care Provider Ernie Baldwin MD Unavailable [phone] Tom De Jesus MD Unavailable Encounter Details Date Type Department Care Team (Late st Contact Info) Description 05/27/2024 Telephone [facility] Medical Group Cardiology [address] [place] [address] Tom De Jesus MD [address] [address] Social History Tobacco Use Types [...] week 03/24/2024 How often do you attend [facility] or adventist services? 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
--- OUTSIDE RECORDS SUMMARY | 2024-07-19 22:18 | XMS_ITS | Encounter Summary ---
Author Organization [facility] Healthcare Address [address] [place] [address] Care Team Providers Care Conference Service Coordinator Name Role Phone Carolyn Davis MD Primary Care Provider Ernie Baldwin MD Unavailable [phone] Tom De Jesus MD Unavailable Encounter Details Date Type Department Care Team (Latest Contact Info) Description 04/29/2024 Anticoagulation Visit [facility] Medical Group Cardiology [address] [place] [address] Angela Vines, RN Aortic valve [...] time in the past 12 m [facility], were you homeless or living in a intermediate (including now)? No 03/24/2024 Personal Safety Answer Date Recorded Have you ever been in or are you currently in a harmful physical or emotional relationship or is someone making you feel afraid or unsafe? 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
--- OUTSIDE RECORDS SUMMARY | 2024-07-19 22:18 | XMS_ITS | Encounter Summary ---
Author Organization [facility] Address [address] [facility] [address] [place] [address] Phone Care Team Providers Care Solar Pv Installer Name Role Phone Carolyn Davis MD Primary Care Provider Ernie Baldwin MD Unavailable [phone] Tom De Jesus MD Unavailable Encounter Details Date Type Department Care Team (Late st Contact Info) Description 04/28/2024 11:15 AM CDT Office Visit [facility] Surgery [address] [facility] [address]] [address] [place] [address] Re Hicks NP [address] [facility] 8233[address]12-02 [place] [address] S/P AVR (aortic valve replacement) [...] often do you attend chur ch or mandaen services? Never 03/24/2024 Do you belong to any clubs o r organizations such as synagogue groups, unions, fraternal or athletic groups, or [...] any time in the past [address] [facility], were you homeless or living in a senior care (including now)? No 03/24/2024 Personal Safety Answer Date Recorded Have you ever been in or are you currently in a harmful physical or emotional relationship or is someone making you feel afraid or unsafe? 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 I discussed with them talking to PCP [...] He is continue close follow-up with his pelota maker and PCP. I advised him to seek advice from his PCP on an ENT referral if patient is still having mild dysphagia and/or mild hoarseness 3 months from surgery. Patient is to return to clinic 3 months for anothercheck. He is to call with any incisional questions or concerns. Re Hicks NP 42:50 PM [employer]bi Special Agent completed with [employer]. Fbi Special Agent variances may occur. documented in this encounter Plan of Treatment Not on file documented as of this encounter Visit Diagnoses Diagnosis S/P AVR (aortic valve replacement)- Primary Heart valve replaced by other means documented in this encounter Care Teams Solar Pv Installer Relationship Specialty Start Date End Date Carolyn Davis MD [address] [place] [address] PCP - General 10/31/15 Ernie Baldwin MD [address]02 [place] [address] Surgeon Cardiothoracic Surgery 03/29/24 Tom De Jesus MD [address] [facility] [address] [place] [address] Consulting Physician Cardiology 03/29/24 documented as of this encounter
--- OUTSIDE RECORDS SUMMARY | 2024-07-19 22:18 | XMS_ITS | Encounter Summary ---
Author Organization [facility] Address [address] [facility] [address] [place] [address] Phone Care Team Providers Care Coiled Coil Inspector Name Role Phone Carolyn Davis MD Primary Care Provider Ernie Baldwin MD Unavailable [phone] Tom De Jesus MD Unavailable Encounter Details Date Type Department Care Team (Late st Contact Info) Description 04/22/2024 Orders Only [facility] Surgery [address] [facility] [address] [place] [address] Re Hicks NP [address] [facility] 8233[address]12-02 [place] [address] Social History Tobacco Use Types [...] How often do you attend [facility] or voodoo services? Never 03/24/2024 Do you belong to any clubs o r organizations such as confucianist groups, unions, fraternal or athletic groups, or [...] any time in the past 12 m [facility], were you homeless or living in a long term (including now)? No 03/24/2024 Personal Safety Answer Date Recorded Have you ever been in or are you currently in a harmful physical or emotional relationship or is someone making you feel afraid or unsafe? 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
--- OUTSIDE RECORDS SUMMARY | 2024-07-19 22:19 | XMS_ITS | Encounter Summary ---
Author Organization [facility] Healthcare Address [address] [place] [address] Care Team Providers Care Machine I Trimmer Name Role Phone Carolyn Davis MD Primary Care Provider Ernie Baldwin MD Unavailable [phone] Tom De Jesus MD Unavailable Reason for Referral * Home Health (Routine) - Closed Specialty Diagnoses / Procedures Referred By Contac t Referred To Contact Home Health Services Diagnoses Aortic stenosis, severe Christo Cota, MOSAIC TILE MAKER [address] [facility] [address], [place] [address] Phone: tel: fax: Unknown Place of Service fax: Referral ID Status Reason Start Date Expiration Date V isits Requested Visits Authorized [id number] Closed Specialty Services Required 03/28/2024 04/27/2025 1 1 [facility] Primary disciplines requested: Nursing Home Home Health Services Labs, Wound/Ostomy Care Does [...] of cardiac valve disease unspecified [I35.0] Procedures PA RPLCMT PROST AORTIC VALVE OPEN XCP HOMOGRF/STENT REPLACEMENT AORTIC VALVE, LAMBERTO Referral ID Status Reason Start Date Expiration Date Visits Re quested Visits Authorized [id number] 1 1 Encounter Details Date Type Department Care Team (Latest Contact Info) Description 03/22/2024 5:30 AM CDT - 03/30/2024 2:00 PM CDT Hospital Encounter [address] [address] Ernie Baldwin MD [id number] [place] [address] Aortic stenosis, severe (Primary Dx); Aortic valve [...] often do you attend chur ch or gnosticist services? Never 03/24/2024 Do you belong to [...] any time in the past 12 m [facility], were you homeless or living in a chcf (including now)? No 03/24/2024 Personal Safety Answer Date Recorded Have you ever been in or are you currently in a harmful physical or emotional relationship or is someone making you feel afraid or unsafe? 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 Sternal plating by Dr. [...] 01/18/2025 2:00 PM Tom De Jesus MD [facility] MR[facility] Specialty Follow-up with PCP in 4-6 weeks Notify physician with fevers, chills, nausea, or vomiting, SOB, chest pain, or wound drainage. CBC and CMP to be drawn in one week and fax results to [phone]. Patient instructed to have [facility] on 04/[facility] at [facility] and faxed to CTS office [phone]. He was provided with a standing order. Home health nursing admission is pending at the time of discharge and is being arranged by the patient's medical case manager with [facility]. Information on cardiac [...] . Signed: Christo Cota NP Cardiothoracic Surgery [facility] [phone] 43:30 PM Cosigned by Ernie Baldwin MD [...] fruits and vegetables. For questions, can call [facility] Dietitian's Office at [phone]. Additional resources available online from the [place] [employer] at [email or web address] documented in this encounter [...] mouth nightly enoxaparin (LOVENOX) 80 mg/0.8 mL syringeIndications:Nc chanical Valve Thromboembolism Prophylaxis Inject 0.8 mL [...] 03/30/2024 4 enoxaparin (LOVENOX) 80 mg/0.8 mL syringeIndications:Nc chanical Valve Thromboembolism Prophylaxis Inject 0.8 mL [...] NOTE PATIENT'S NAME:Stephan Madden :1965 AGE:58 y.o. ROOM:[place] [address] Past Medical History: Diagnosis Date Arthritis Atrial [...] / sternal precautions APPEARANCE/POSTURE: seated in recliner, compliance monitor intact, spouse present, patient dressed in [...] and dry. 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 Mental [...] one week and have INR drawn at [place] Christo Cota NP Cardiothoracic Surgery [facility] Cosigned by Ernie Baldwin MD at [...] sodium chloride 0.9%, 0.5-20 mL, intra-catheter, Q8H [facility] Continuous Infusions:sodium chloride 0.9%, 10 mL/hr PRN [...] Mood normal. ASSESSMENT -severe s/p AVR 23mm Krebs mech valve -postop AFib with RVR -postop [...] / Sex: 58 y.o. / male Room: [address] : 1965 Date of service: 03/30/24 [...] session: Yes Completed patient handoff and notified DRAMATIC AGENT / RN, of patient's location and functional [...] shirt while Standing at bedside with overall Paxton. Patient required assistance for N/A - Independent. [...] -prior TIA PLAN/RECOMMENDATIONS -severe s/p AVR 23mm Krebs mech valve, doing well postoperatively. Echocardiogram today [...] left leg which lasted about 30 minutes. [place] like his left extremities were cool during [...] 7 Days Post-Op s/p AVR with 23mm Krebs valve + sternal plating Neuro: Transient left [...] INR management Christo Cota NP Cardiothoracic Surgery [facility] Cosigned by Ernie Baldwin MD at 04/03/2024 3:03 PM CDT * Nena Ray COTA - 03/29/2024 10:04 AM CDT Occupational Therapy NOTE / SESSION TYPE: DAILY PROGRESS / TREATMENT Patient's Name: Stephan Madden Age / Sex: 58 y.o. / [facility] 1965 Date of service: 03/29/24 TIME [...] session: Yes Completed patient handoff and notified DRAMATIC AGENT / RN, name: Denilson, of patient's location [...] / Sex: 58 y.o. / male Room: [place] [address] : 1965 Date of service: 03/28/24 TIME [...] session: Yes Completed patient handoff and notified DRAMATIC AGENT / RN, name: Denilson, of patient's location [...] and standing at standard toilet with overall Paxton. Patient required assistance for N/A - Independent. UE dressing: Patient completed upper body dressing of Hospital gown as robe while Standing at bedside with overall Supervision assistance. Patient required assistance for verbal cue(s). Footwear: Patient completed footwear of Slip-on shoe(s) while Sitting on EOB with overall Paxton. Patient required assistance for N/A - Independent Grooming: Patient completed grooming of washing face, brushing teeth, washing hands, and combing hair while Standing at sink ~3 minutes with overall Paxton. Patient required assistance for N/A - Independent [...] rate. Heart sounds: No murmur heard. [facility]: Effort: Pulmonary effort is normal. [...] 6 Days Post-Op s/p AVR with 23mm Krebs valve + sternal plating CVS: Afib postop, [...] Lovenox bridge Christo Cota NP Cardiothoracic Surgery [facility] Cosigned by Ernie Baldwin MD at 04/03/2024 3:03 PM CDT * Angela Figueredo PTA - 03/28/2024 9:24 AM CDT Physical Therapy PT PROGRESS NOTE PATIENT'S NAME:Stephan Madden :1965 AGE:58 y.o. ROOM:[place] [address] Past Medical History: Diagnosis Date Arthritis Atrial [...] APPEARANCE/POSTURE: seated EOB, using urinal, I.V. intact, compliance monitor intact, call light in reach, bed [...] ambulation APPEARANCE/POSTURE (end of session): seated EOB, MOSAIC TILE MAKER (Christo) present, patient spouse arrives, all lines [...] HFpEF EF 60-70%, TIA [facility]o/ epi/ 2 prbc, 1 ffp, [...] 0659 03/27/24 07 - 03/28/24 0659 Shift 6932-3699 9114-7596 24 Hour Total 6425-5536 1287-6117 24 Hour Total INTAKE P.O. 600 240 [...] plan with the patient's team and other medical/performance management consultant staff. This time was in addition [...] floor Marlo Rdz MD Cardiothoracic Surgery [facility] * Tam Arias NP - 03/26/2024 [...] HFpEF EF 60-70%, TIA Hospital Course 03/22 [facility] AVR, NE/vaso/ epi/ 2 prbc, 1 ffp, [...] Internal jugular (Active) Placement Date/Time: 03/22/24 (c) 0836 Hand Hygiene Performed: Yes Orientation: Right Location: Internal jugular Description (optional): multi-lumen access catheter (MAC) Number of days: 0 PA Catheter 8 Fr. Right Other (Comment) (Active) Placement Date/Time: 03/22/24 (c) 2409 Site Prep: Chlorhexidine Sheath Size: 8 Fr. [...] 0659 03/26/24 07 - 03/27/24 0659 Shift 0578-8257 5877-9324 24 Hour Total 9949-2450 4327-8386 24 Hour Total INTAKE P.O. 120 120 I.V.(mL/kg) 854(11) 854(11) Shift Total(mL/kg) 854(11) 854(11) 120(1.5) 120(1.5) OUTPUT Urine(mL/kg/hr) 2700(2.9) 1550(1.7) 4250(2.3) Shift Total(mL/kg) 2700(34.7) 1550(19.9) 4250(54.6) [facility]1846 -0418 -3296 120 120 Weight (kg) 77.9 77.9 77.9 [...] plan with the patient's team and other medical/performance management consultant staff. This time was in addition [...] 4 Days Post-Op s/p AVR with 23mm Krebs valve + sternal plating CVS: Afib converted [...] CTICU Marlo Rdz MD Cardiothoracic Surgery [facility] Cosigned by Clem Schmidt MD at [...] sodium chloride 0.9%, 0.5-20 mL, intra-catheter, Q8H [facility] sodium phosphate - potassium phosphate, 500 mg, [...] and alert ASSESSMENT -severe s/p AVR 23mm Krebs mech valve -postop AFib with RVR -postop [...] NOTE PATIENT'S NAME:Stephan Madden :1965 AGE:58 y.o. ROOM:[place] [address] Past Medical History: Diagnosis Date Arthritis Atrial [...] / Sex: 58 y.o. / male Room: [place] [address] : 1965 Date of service: 03/25/24 TIME [...] session: Yes Completed patient handoff and notified DRAMATIC AGENT / RN, name: Kelsey, of patient's location [...] Baldwin. Uncomplicated OR course, AVR with 23mm Krebs, easy airway, received 750ml cell saver, 2100ml [...] HFpEF EF 60-70%, TIA Hospital Course 03/22 [facility] AVR, NE/vaso/ epi/ 2 prbc, 1 ffp, [...] 03/24/246[address] - 03/25/2465803/25/24699 - 03/26/24 0659 Shift 4178-2302 5902-3644 24 Hour Total 7388-5027 3127-1311 24 Hour Total INTAKE P.O. 650 650 [...] plan with the patient's team and other medical/performance management consultant staff. This time was in addition [...] 3 Days Post-Op s/p AVR with 23mm Krebs valve + sternal plating CVS: Afib converted [...] CTICU Marlo Rdz MD Cardiothoracic Surgery [facility] Cosigned by Ernie Baldwin MD at [...] and alert ASSESSMENT -severe s/p AVR 23mm Krebs mech valve -postop AFib with RVR -postop anemia/thrombocytopenia -PSVT -hypertension -dyslipidemia -prior TIA PLAN/RECOMMENDATIONS -severe s/p AVR 23mm Krebs mech valve, continue current postop management, PT/OT. [...] 2 Days Post-Op s/p AVR with 23mm Krebs valve + sternal plating CVS: Afib with [...] Dispo: CTICU Marlo Rdz MD Cardiothoracic Surgery [facility] Cosigned by Ernie Baldwin MD at 03/25/2024 10:50 AM CDT * Odin Cartagena, PT - 03/24/2024 7:40 AM CDT Physical Therapy INITIAL EVALUATION PATIENT'S NAME:Stephan Madden :1965 AGE:58 y.o. ROOM:[place] [address] TIME IN: 0927 TIME OUT:0958 CURRENT DIAGNOSIS [...] aortic (valve) stenosis Paroxysmal SVT (supraventricular tachycardia) ([facility]) Seizures ([facility]) 1 x 3-4 years ago d/t ETHO [...] 18 = Likely require inpatient rehab or nursing home placement at discharge APPEARANCE/POSTURE (end of session): [...] and Phos repletion - DC Chest tubes, Ragland, Reyes catheter HPI 58 yo male with [...] HFpEF EF 60-70%, TIA Hospital Course 03/22 [facility] AVR, NE/vaso/ epi/ 2 prbc, 1 ffp, [...] - 03/24/24 0603/24/24699 - 03/25/24 0659 Shift 7423-0643 2498-2774 24 Hour Total 9233-0655 3824-9687 24 Hour Total INTAKE P.O. 300 310 [...] plan with the ICU team and other medical/performance management consultant staff, making frequent assessments and decisions [...] HFpEF EF 60-70%, TIA Hospital Course 03/22 [facility] AVR, NE/vaso/ epi/ 2 prbc, 1 ffp, [...] plan with the ICU team and other medical/performance management consultant staff, making frequent assessments and decisions [...] / Sex: 58 y.o. / male Room: [place] [address] Admit Date: 03/22/2024 Date of Service: 03/23/24 [...] History: Diagnosis Date Arthritis Atrial fibrillation (CMS/HCC) ([facility]) Depression H/O ETOH abuse went to rehab for 3 months Heart murmur Hypertension Nonrheumatic aortic (valve) stenosis Paroxysmal SVT (supraventricular tachycardia) ([facility]) Seizures (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 Social roles / Hobbies: put [...] session: Yes Completed patient handoff and notified DRAMATIC AGENT / RN, name: Thu, of patient's location [...] 4/5 except shoulders 3-/5 Hand Dominance: Right [employer] Strength (Right) good Member Of [employer] Strength (Left): good Right Serial Opposition: Intact [...] (from Occupational Therapy) Active Problems Problem: OT [facility] Start Date: 03/23/24 Goal Start Date Expected End Date End Date OT [facility] 1 03/23/24 03/30/24 -- Goal Details: Patient will complete UE / LE dressing with supervision assistance one time Goal Start Date Expected End Date End Date OT [facility] 2 03/23/24 03/30/24 -- Goal Details: Patient will complete functional transfers with supervision assistance using least restrictive device one time Goal Start Date Expected End Date End Date OT [facility] 3 03/23/24 03/30/24 -- Goal Details: Patient [...] My impression/plan is --severe s/p AVR 23mm Krebs mech valve, Extubated this a.m.. -hypotension, patient [...] AVR Interval History: Passed SBT Ext[facility]ated to [facility] Insulin gtt DC-d HDSSI started HPI 58 [...] HFpEF EF 60-70%, TIA Hospital Course 03/22 [facility] AVR, NE/vaso/ epi/ 2 prbc, 1 ffp, [...] - 03/23/24 0603/23/24699 - 03/24/24 06 Shift 1711-0628 0887-7974 24 Hour Total 0859-9126 5463-7987 24 Hour Total INTAKE I.V.(mL/kg) 2100(27.5) 1182.6(15.5) 3282.6(43) 55.2(0.7) 55.2(0.7) Blood 600 372 9703 IV Piggyback 100 1470 1570 Shift Total(mL/kg) 2660(34.8) 3602.6(47.2) 6262.6(82) 55.2(0.7) 55.2(0.7) OUTPUT Urine(mL/kg/hr) 1085(1.2) 495(0.5) 1580(0.9) 40 40 Blood 500 500 Chest Tube 504 763 7884 0 0 Shift Total(mL/kg) 2345(30.7) 915(12) 3260(42.7) [...] plan with the ICU team and other medical/performance management consultant staff, making frequent assessments and decisions [...] 1 Day Post-Op s/p AVR with 23mm Krebs valve + sternal plating CVS: CI @ [...] Dispo: CTICU Marlo Rdz MD Cardiothoracic Surgery [facility] Cosigned by Ernie Baldwin MD at 03/25/2024 10:49 AM CDT * Marlo Portillo NP - 03/22/2024 10:40 PM CDTAssociated Order(s): Critical Care Post-Procedure Diagnose(s): Aortic valve stenosis, etiology of cardiac valve disease unspecified Images from the original note were not included. Critical Care Medicine Daily Progress Team: [facility] Subjective Patient is a 58 y.o. y/o male admitted on 03/22/2024 5:30 AM with the following indication(s) for ICU care s/p Mechanical AVR Interval History: [facility] AVR NE/vaso for MAP >65 Add Epi [...] HFpEF EF 60-70%, TIA Hospital Course 03/22 [facility] AVR, NE/vaso/ epi/ 2 prbc, 1 ffp, [...] 0659(Not Admitted) 03/22/24699 - 03/23/24 0659 Shift 9094-1403 24 Hour Total 6895-5065 2527-0212 24 Hour Total INTAKE I.V.(mL/kg) 2100(27.5) 618.4(8.1) 2718.4(35.6) Blood 125 707 4776 IV Piggyback 100 850 950 Shift Total(mL/kg) 2660(34.8) 2418.4(31.7) 5078.4(66.5) OUTPUT Urine(mL/kg/hr) 1085(1.2) 210 1295 Blood 500 500 Chest Tube 404 665 8253 Shift Total(mL/kg) 2345(30.7) 470(6.2) 2815(36.8) NET 315 [...] AM Result Value Ref Range Product code M8606R89 Unit Number [id number] Product Blood Type BPOS Dispense Status PRESUMED TRANSFUSED Product code I9435W77 Unit Number [id number] Product Blood Type BPOS Dispense Status ISSUED Product code I8261L49 Unit Number [id number] Product Blood Type BPOS Dispense Status CROSSMATCHED Product code G0626T24 Unit Number [id number] Product Blood Type BPOS Dispense Status CROSSMATCHED Prepare platelets: 2 Units Collection Time: 03/22/24 6:00 AM Result Value Ref Range Product code R0446M16 Unit Number [id number] Product Blood Type OPOS Dispense Status PRESUMED TRANSFUSED Prepare plasma: 2 Units Standard plasma Collection Time: 03/22/24 6:00 AM Result Value Ref Range Product code G4258P19 Unit Number [id number] Product Blood Type BPOS Dispense Status PRESUMED [...] PM Result Value Ref Range Product code L3797G23 Unit Number [id number] Product Blood Type APOS Dispense Status PRESUMED TRANSFUSED Product code E4189E71 Unit Number [id number] Product Blood Type APOS Dispense Status PRESUMED [...] line, PIVs Goals of care: full code [facility] PM Assessment and plan has been reviewed with attending, Dr Ajit Portillo NP Critical Care Performed by: Marlo Portillo NP Authorized by: Marlo Portillo NP CRITICAL CARE: Team: [facility] Shift: PM Level of Billing: Critical [...] plan with the ICU team and other medical/performance management consultant staff, making frequent assessments and decisions [...] 03/24/2024 1:22 AM CDT * Juan Tapia, formerly [facility] - 03/22/2024 12:43 PM CDT Images from [...] to microscopic and culture Urine, clean voided [[id number]] (Abnormal) Urine, clean voided Final result Component [...] Baldwin. Uncomplicated OR course, AVR with 23mm Krebs, easy airway, received 750ml cell saver, 2100ml [...] History: Diagnosis Date Arthritis Atrial fibrillation (CMS/HCC) ([facility]) Depression H/O ETOH abuse went to rehab [...] AM Result Value Ref Range Product code R2470A81 Unit Number [id number] Product Blood Type BPOS Dispense Status CROSSMATCHED Product code M1444T76 Unit Number [id number] Product Blood Type BPOS Dispense Status CROSSMATCHED Product code D1173P90 Unit Number [id number] Product Blood Type BPOS Dispense Status CROSSMATCHED Product code F1778N03 Unit Number [id number] Product Blood Type BPOS Dispense Status CROSSMATCHED Prepare platelets: 2 Units Collection Time: 03/22/24 6:00 AM Result Value Ref Range Product code G8209B11 Unit Number [id number] Product Blood Type OPOS Dispense Status ISSUED [...] plan with the ICU team and other medical/performance management consultant staff, making frequent assessments and decisions [...] - 02/26/2024 9:00 AM CDT Cardiothoracic Surgery [place] History & Physical [facility] Dr. Levar Morillo & Dr. Ernie Baldwin Stephan Madden 1965 Reason for Consult: Aortic Stenosis Physician Requesting Consult: Tom De Jesus MD PCP: Caorlyn Davis MD New or Established Patient: New [...] to proceed. Maurisio Flower NP Cardiothoracic Surgery [facility] [phone] :59 AM Ernie Baldwin MD FACS Cardiothoracic Surgery [facility] Linux Network Engineer completed with [employer]. Linux Network Engineer variances may occur. Cosigned by Ernie Baldwin [...] History: Diagnosis Date Arthritis Atrial fibrillation (CMS/HCC) ([facility]) Depression H/O ETOH abuse went to rehab for 3 months Heart murmur Hypertension Nonrheumatic aortic (valve) stenosis Paroxysmal SVT (supraventricular tachycardia) ([facility]) Seizures ([facility]) 1 x 3-4 years ago d/t ETHO [...] < > 0.76* < > 0.80 0.78* [id number] mL/min/1.73 m2 >90 < > >90 < [...] fruits and vegetables. For questions, can call [facility] Dietitian's Office at [phone]. Additional resources available online from the [place] [employer] at www.heart.org/en/healthy-living/healthy-eating Nutrition Follow-Up : 04/05/24 Gloria Christian MS, RD, LD * Silverio Santos Nduchijioke - 03/28/2024 12:42 PM CDT [id number] Urgent: Anoint: Yes Holy Com: Yes Bless: Yes Misc: in room and communed [facility] * EdwinfoxSilverio - 03/27/2024 1:36 PM CDT [id number] Urgent: Anoint: Yes Holy Com: No Bless: Yes Misc: Silent prayer offered. Patient was sleeping [facility] * Silverio Santos - 03/24/2024 2:25 PM CDT [id number] Urgent: Anoint:Yes Holy Com: No - unable to swallow Bless: Yes Misc: Brother in room [facility] * Silverio Santos - 03/23/2024 3:02 PM CDT [id number] Urgent: Anoint: Yes Holy Com: No Bless: Yes Misc: Brother and [id number] in room [facility] * Jolanta Quintero DO - [...] History: Diagnosis Date Arthritis Atrial fibrillation (CMS/HCC) ([facility]) Depression H/O ETOH abuse went to rehab for 3 months Heart murmur Hypertension Nonrheumatic aortic (valve) stenosis Paroxysmal SVT (supraventricular tachycardia) ([facility]) Seizures ([facility]) 1 x 3-4 years ago d/t ETHO [...] infusion, 30 mL/hr, intravenous, Continuous, Ranjit Fernández MOSAIC TILE MAKER, Last Rate: 30 mL/hr at 03/22/24 0743, [...] on ventilator ASSESSMENT -severe s/p AVR 23mm Krebs mech valve -PSVT -hypertension -dyslipidemia -prior TIA [...] discharge needs arise, please contact the covering medical case manager. Discharge Disposition Code: 01 * Plan of Care - Liberty Ruelas RN - 03/30/2024 1:12 PM CDT 03/30/24 1311 Communications Important Message from Medicare notice given to patient? Not Applicable CLEMENT letter given? Not Applicable Patient choice (Home Health/Hospice) list given to patient/account maintenance representative? Yes ([facility] Chief Architect and [facility] will arrange) Nursing Home Facility list given to patient/account maintenance representative? Not Applicable Fiduciary Responsibility Patient/Designated decision maker was informed of [facility] fiduciary relationship as necessary Notice of Non-Covered Continued Stay or Hospital Services Given to Patient Not Applicable * Plan of Care - Liberty Ruelas RN - 03/30/2024 1:04 PM CDT CM spoke with the patient's Chief Architect of [facility] for assistance with obtaining HH for the patient.CM received information for [employer] who provides assistance with seeking HH. Informationwas faxed and [employer] has initiated working on securing home yaron. CM was notified this shift [facility], [...] HH pending. * Plan of [facility] - Brayan Dyer - 03/29/2024 6:21 [...] Home Care Services Name and Phone Number [facility] [phone] OP Services N/A DME N/A Post Acute [...] Ruelas RN - 03/28/2024 3:47 PM CDT [place] [address] Date: Mar 28, 2024 Ambulatory referral to Home Health Patient: Stephan Madden [address] [place] [address] [place] [address] : 1965 SSN: [id number] Sex: M Insurance: farmbuy Referring Provider Information: CHRISTO COTA Referral Information: # Visits: 1 Referral Type: Home Health [42] Urgency: Routine Referral Reason: Specialty Services Required Start Date: Mar 28, 2024 End Date: To be determined by Insurer Diagnosis: Aortic stenosis, severe (I35.0) Refer to Dept: [facility] Home Care Services [address] [place], [address] Service Line: Home Health Primary disciplines requested: Nursing Home Home Health Services: [facility] Home Health Services: [...] Authorizing Provider: Christo Cota NP ( ) Brake Lining Driller: Ernie Baldwin MD This document serves as a request of services and does not constitute Insurance authorization or approval of services. To determine eligibility, please contact the member???s Insurance carrier to verify and review coverage. If you have medical questions regarding this request for services. Please contact [facility] [phone] between the hours of 8:00am - 4:30pm [...] will improve Outcome: Progressing Flowsheets (Taken 03/23/2024 2402) Mobility will improve: Encourage mobilization to extent [...] bladder scan as needed Discuss catheterization for penitentiary situations as appropriate Assess amount and/or characteristics [...] Interview Note Information Obtained From: Patient (03/24/24 2179) Admission Source: Non Medical (Home) Impression: 58 [...] step; works full-time; independent with ADLs; uses [employer] in [place], [place]; reliable transportation -car; smokes 1ppd x 35 years; smoke marijuana 2x daily, however will indulge in gummies; interacts with friend; spouse deferred advance directives and would like to speak with the patien Primary Source of Transportation: Does the patient need discharge transport arranged?: No (Family for transport home) (03/24/24 1604) Health Insurance Coverage: [employer] Open Access Prescription Coverage: Yes Pharmacy: [id number] - [place], [place] - [address] [facility] [address] Primary Care Provider: Carolyn Davis MD Prior to Admission: Functional Status: Independent with ADLs Primary Caregiver: Self Support System: Spouse/Significant Other, Family members (Spouse: Yumiko Madden [phone]) Home Care Services: No Outpatient Services: No [...] were you homeless or living in a chcf (including now)?: No (03/24/241652) Utilities: Social Connections: In a typical week, how many times do you talk on the phone with family, friends, or neighbors?: Once a week How often do you get together with friends or relatives?: Once a week How often do you attend buddhism or gnosticist services?: Never Do you belong to any clubs or organizations such as buddhism groups, unions, fraternal [...] Screening Potential discharge needs include: Home Health: [facility] (03/24/241608) OP Services: Dialysis: Behavioral Health Services: [...] Collaboration with Patient, Provider, Direct Care Nurse, Gi Technician, and other members of theHealth Care Team to assure needed interventions completed. 2. Return patient to optimal level of self-care post discharge. 3. Chief Architect will follow for Discharge Planning - interventions as needed 4. Anticipated level of care at discharge 5. Planned Discharge Disposition VI Hannon, RN applied psychology chair [phone] * Plan of Care - Carole Lundberg [...] for any change in amount and/or color Trimble appropriate cooling/warming therapies per order Administer medications [...] unit of FFP given. Critical care team MOSAIC TILE MAKER, Jaron Portillo, noted effusion per ultrasound. Dr. [...] Admit Date: 03/22/2024 SURGEON Ernie Baldwin MD MOTTLER MACHINE FEEDER Marlo Rdz PREOPERATIVE DIAGNOSIS Aortic Stenosis POSTOPERATIVE [...] - Primary Anesthesiologist: Sherron Archibald MD Anesthesiologist Market Developer: Vania Chaudhry AA Supervisor Boiler Repair: Thuy Miranda CCP Contact Lens Lathe Operator: Venkat Yeager RN Scrub Relief: Prerna Smalls RN Scrub: Sole Weiner RN HYDROLOGIC MODELER: Jl Ledesma CRNFA FLOAT: Brenna Johnson RN; [...] Implant Name Type Inv. Item Serial No. Entry Level Machine Operator Lot No. LRB No. Used Action ON-X INTRNL Valve Coronary Aortic Mechanical On X 23mm [id number] - [id number] - [id number] ON-X INTRNL Valve Coronary Aortic Mechanical On X 23mm [id number] On-X Intrnl N/A 1 Implanted [employer] Screw Bone Slf Drl Full Thread Locking 3.5x16mm Ti 100.035.16 - [id number] [employer] Screw Bone Slf Drl Full Thread Locking 3.5x16mm Ti 100.035.16 [employer] N/A 6 Implanted [employer] Screw Bone Slf Drl Full Thread Locking 3.5x18mm Ti 100.035.18 - [id number] [employer] Screw Bone Slf Drl Full Thread Locking 3.5x18mm Ti 100.035.18 [employer] N/A 10 Implanted [employer] Plate Bone Low Profile 4 Hole Box Sternum Ti 115.103.04 - [id number] [employer] Plate Bone Low Profile 4 Hole Box Sternum Ti 115.103.04 [employer] N/A 1 Implanted [employer] Plate Bone Low Profile 6 Hole O Concave Sternum Ti 115.604.06 - [id number] [employer] Plate Bone Low Profile 6 Hole O Concave Sternum Ti 115.604.06 [employer] N/A 1 Implanted [employer] Plate Bone Low Profile 6 Hole H Shape Sternum Ti 115.102.06 - [id number] [employer] Plate Bone Low Profile [...] LAB BLOOD ORDERABLES Final Res ult [facility]I [address] [place] [address] * (ABNORMAL) Protime-INR (03/30/2024 9:54 AM CDT) PT 38.7(H) 9.7 - 13.0 sec INR 3.49(H) 0.90 - 1.20 [facility] Comment: Interpretive data Oral anticoagulant therapeutic ranges: Venous thromboembolism prophylaxis or treatment: 2.0-3.0 CARDIOLOGY Standard range: 2.0-3.0 High-intensity range: 2.5-3.5 Refer to indication-specific guidelines for appropriate target ranges for prosthetic heart valve replacement. Current interpretive data was last revised on 2019. Blood 03/30/2024 9:54 AM CDT 03/30/2024 9:57 AM CDT us Christo Cota NP LAB BLOOD ORDERABLES Final Result [facility] [address] [place] [address] * (ABNORMAL) Basic metabolic panel (03/30/2024 9:54 AM CDT) Sodium 138 135 - 145 mmol/L Potassium, pl 4.0 3.3 - 4.9 mmol/L [facility] Chloride 102 97 - 110 mmol/L [facility] CO2 24 22 - 32 mmol/L [facility] Anion gap 12 2 - 15 mmol/L [facility] BUN 24 6 - 25 mg/dL [facility] Creatinine 0.67(L) 0.80 - 1.30 mg/dL [facility] Comment:Icteric sample, test results may be affected. Glucose 187 70 - 199 mg/dL [facility] Comment: Interpretive Data Fasting glucose >/= [...] 2022. Calcium 9.1 8.5 - 10.3 mg/dL [facility] Blood 03/30/2024 9:54 AM CDT 03/30/2024 9:57 AM CDT Ernie Baldwin MD LAB BLOOD ORDERABLES Final Res ult Performing Organization Address City/[facility]/ZIP Co de Phone Number [facility] [address] [place] [address] * POCT glucose (03/30/2024 7:38 AM CDT) Glucose, POC 122 70 - 199 mg/dL Blood 03/30/2024 7:38 AM CDT 03/30/2024 7:38 AM CDT Ernie Baldwin MD LAB POCT ORDERABLES - DEVICE F inal Result Performing Organization Address [facility] Co de Phone Number [facility] [address] [place] [address] * XR Chest 1 View (03/30/2024 4:12 [...] signed by: Hamzah Mackey M.D. Christo Cota MOSAIC TILE MAKER IMG XR PROCEDURES Final Re sult * POCT glucose (03/30/2024 12:46 AM CDT) Glucose, POC 105 70 - 199 mg/dL Blood 03/30/2024 12:4 6 AM CDT 03/30/2024 12:46 AM CDT Ernie Baldwin MD LAB POCT ORDERABLES - DEVICE F inal Result Performing Organization Address [facility] de Phone Number [facility] [address] [place] [address] * POCT glucose (03/29/2024 8:50 PM CDT) Glucose, POC 139 70 - 199 mg/dL Blood 03/29/2024 8:50 PM CDT 03/29/2024 8:50 PM CDT Ernie Baldwin MD LAB POCT ORDERABLES - DEVICE F inal Result Performing Organization Address [facility] de Phone Number [facility] [place] [address] [address] [place] [address] * POCT glucose (03/29/2024 4:37 PM CDT) Glucose, POC 120 70 - 199 mg/dL Blood 03/29/2024 4:37 PM CDT 03/29/2024 4:37 PM CDT Ernie Baldwin MD LAB POCT ORDERABLES - DEVICE F inal Result Performing Organization Address [facility] Co de Phone Number [facility] [address] [address] [employer] [place] [phone] * POCT glucose (03/29/2024 1:03 PM CDT) Glucose, POC 151 70 - 199 mg/dL Blood 03/29/2024 1:03 PM CDT 03/29/2024 1:03 PM CDT us Ernie Baldwin MD LAB POCT ORDERABLES - DEVICE F inal Result Performing Organization Address [facility] de Phone Number [facility] [address] [place] [address] * TRANSTHORACIC ECHO (TTE) COMPLETE W DOPPLER/CF WO CONTRAST (03/29/2024 10:30 AM CDT) Anatomical Region Laterality Modality Ultrasound 03/29/2024 8:35 AM CDT Narrative 03/29/2024 3:21 [place] [address] Echocardiogram Report Patient Name: STEPHAN MADDEN A : 1965 Study Date: 03/29/2024 8:35:42 AM Gender: M [facility]: Location: [place] [address] Ref Provider: CHRISTO COTA ?Height(Cm): 183 BSA: [...] Procedure Note [place] Ruvalcaba MD - 03/29/2024 [place] [address] Echocardiogram Report Patient Name: STEPHAN MADDEN A : 1965 Study Date: 03/29/2024 8:35:42 AM Gender: M Tech: Location: [place] [address] Ref Provider: CHRISTO COTA Height(Cm): 183 BSA: [...] (ABNORMAL) Protime-INR (03/29/2024 8:48 AM CDT) Pathologist [facility] PT 18.1(H) 9.7 - 13.0 sec INR [...] NP LAB BLOOD ORDERABLES Final Result [facility]I [address] [place] [address] * eGFR (03/29/2024 5:40 AM CDT) Pathologist [facility] eGFR >90 >=60 mL/min/1. 73 m2 Comment: [...] ORDERABLES Final Res ult Performing Organization Address [facility] Co de Phone Number ORI [facility] [address] [place] [place] [address] * (ABNORMAL) aPTT (03/29/2024 5:40 [...] ORDERABLES Final Res ult Performing Organization Address [facility] Co de Phone Number ORI ST[facility] [address] [employer] [place], [place] [phone] * (ABNORMAL) Basic metabolic panel (03/29/2024 5:40 AM CDT) Sodium 137 135 - 145 mmol/L Potassium, pl 3.3 3.3 - 4.9 mmol/L [facility] Chloride 100 97 - 110 mmol/L [facility] CO2 25 22 - 32 mmol/L [facility] Anion gap 12 2 - 15 mmol/L [facility] BUN 26(H) 6 - 25 mg/dL [facility] Creatinine 0.73(L) 0.80 - 1.30 mg/dL [facility] Comment:Icteric sample, test results may be affected. Glucose 116 70 - 199 mg/dL [facility] Comment: Interpretive Data Fasting glucose >/= [...] 2022. Calcium 9.0 8.5 - 10.3 mg/dL [facility] Blood 03/29/2024 5:40 AM CDT 03/29/2024 6:07 AM CDT Ernie Baldwin MD LAB BLOOD ORDERABLES Final Res ult [facility] [address] [place] [address] * (ABNORMAL) CBC without differential (03/29/2024 5:40 AM CDT) WBC 11.8(H) 3.8 - 9.9 K/cumm Hgb 8.6(L) 13.0 - 17.5 g/dL [facility] Hct 26.1(L) 38.9 - 50.3 % [facility] Plt 192 150 - 400 K/cumm [facility] MPV 9.9 9.1 - 12.3 fL [facility] RBC 2.84(L) 4.30 - 5.80 M/cumm [facility] MCV 91.9 81.3 - 96.4 fL [facility] MCH 30.3 27.1 - 33.3 pg [facility] MCHC 33.0 32.3 - 35.7 g/dL [facility] RDW CV 14.4 11.1 - 14.9 % [facility] RDW SD 47.6 35.7 - 48.1 fL [facility] NRBC abs 0.00 0.00 - 0.01 K/cumm [facility] Blood 03/29/2024 5:40 AM CDT 03/29/2024 6:07 AM CDT Ernie Baldwin MD LAB BLOOD ORDERABLES Final Res ult [facility]I [address] [place] [address] * XR Chest 1 View (03/29/2024 4:21 [...] by: Hamzah Mackey M.D. us Christo Cota MOSAIC TILE MAKER IMG XR PROCEDURES Final Re sult * POCT glucose (03/29/2024 1:39 AM CDT) Glucose, POC 123 70 - 199 mg/dL Blood 03/29/2024 1:39 AM CDT 03/29/2024 1:39 AM CDT Ernie Baldwin MD LAB POCT ORDERABLES - DEVICE F inal Result Performing Organization Address [facility] Co de Phone Number ORI ST[facility] [address] [facility] [place] [address] * (ABNORMAL) aPTT (03/29/2024 12:28 AM CDT) [...] ORDERABLES Final Res ult Performing Organization Address [facility] Co de Phone Number ORI [address] [address] [facility] [place] [address] * (ABNORMAL) aPTT (03/28/2024 10:04 PM CDT) [...] ORDERABLES Final Res ult Performing Organization Address [facility] Co de Phone Number ORI STOD[facility] [address] [address] [facility] [employer] [place], [place] [phone] * POCT glucose (03/28/2024 8:19 PM CDT) Glucose, POC 175 70 - 199 mg/dL Blood 03/28/2024 8:19 PM CDT 03/28/2024 8:19 PM CDT Ernie Baldwin MD LAB POCT ORDERABLES - DEVICE F inal Result Performing Organization Address [facility] de Phone Number ORI ST[facility] [address] [address] [facility] [employer] [place], [place] [phone] * POCT glucose (03/28/2024 5:49 PM CDT) Glucose, POC 133 70 - 199 mg/dL Blood 03/28/2024 5:49 PM CDT 03/28/2024 5:49 PM CDT Ernie Baldwin MD LAB POCT ORDERABLES - DEVICE F inal Result Performing Organization Address [facility] de Phone Number [facility] [address] [facility] [employer] [place], [place] [phone] * (ABNORMAL) aPTT (03/28/2024 1:53 PM CDT) [...] ORDERABLES Final Res ult Performing Organization Address [facility] [place] [address] [address] [place] [address] * POCT glucose (03/28/2024 11:58 AM CDT) Glucose, POC 141 70 - 199 mg/dL Blood 03/28/2024 11:5 8 AM CDT 03/28/2024 11:58 AM CDT Ernie Baldwin MD LAB POCT ORDERABLES - DEVICE F inal Result Performing Organization Address [facility] Co de Phone Number [facility] [address] [place] [address] * XR Chest 1 View (03/28/2024 9:09 [...] are clear. ??The tip of a retracted Ragland-Stevie catheter is in the superior vena cava. [...] are clear. The tip of a retracted Ragland-Stevie catheter is in the superior vena cava. IMPRESSION: Right lower lobe collapse-consolidation. Electronically signed by: Hamzah Mackey M.D. us Christo Cota MOSAIC TILE MAKER IMG XR PROCEDURES Final Re sult * [...] Res ult Performing Organization Address City/State/ZIP Co az Phone Number ORI [address] [place] [address] * (ABNORMAL) aPTT (03/28/2024 6:30 AM CDT) [...] ORDERABLES Final Res ult Performing Organization Address [facility] Co de Phone Number [facility] [address] [address] [facility] [place] [address] * Protime-INR (03/28/2024 6:30 AM CDT) PT 11.9 9.7 - 13.0 sec INR 1.10 0.90 - 1.20 [facility] Comment: Interpretive data Oral anticoagulant therapeutic ranges: Venous thromboembolism prophylaxis or treatment: 2.0-3.0 CARDIOLOGY Standard range: 2.0-3.0 High-intensity range: 2.5-3.5 Refer to indication-specific guidelines for appropriate target ranges for prosthetic heart valve replacement. Current interpretive data was last revised on 2019. Blood 03/28/2024 6:30 AM CDT 03/28/2024 6:42 AM CDT Ernie Baldwin MD LAB BLOOD ORDERABLES Final Res ult Performing Organization Address City/[facility]/ZIP Co de Phone Number ORI RICHI [address] [address] [facility] [place] [address] * (ABNORMAL) Basic metabolic panel (03/28/2024 6:30 [...] affected. Glucose 119 70 - 199 mg/dL [facility] Comment: Interpretive Data Fasting glucose >/= [...] 2022. Calcium 9.0 8.5 - 10.3 mg/dL [facility] Blood 03/28/2024 6:30 AM CDT 03/28/2024 6:42 AM CDT us Ernie Baldwin MD LAB BLOOD ORDERABLES Final Res ult [facility]I [address] [place] [address] * (ABNORMAL) CBC without differential (03/28/2024 6:30 AM CDT) WBC 11.8(H) 3.8 - 9.9 K/cumm Hgb 8.1(L) 13.0 - 17.5 g/dL [facility] Hct 24.4(L) 38.9 - 50.3 % [facility] Plt 169 150 - 400 K/cumm [facility] MPV 10.1 9.1 - 12.3 fL [facility] RBC 2.70(L) 4.30 - 5.80 M/cumm [facility] MCV 90.4 81.3 - 96.4 fL [facility] MCH 30.0 27.1 - 33.3 pg [facility] MCHC 33.2 32.3 - 35.7 g/dL [facility] RDW CV 14.3 11.1 - 14.9 % [facility] RDW SD 45.7 35.7 - 48.1 fL [facility] NRBC abs 0.00 0.00 - 0.01 K/cumm [facility] Blood 03/28/2024 6:30 AM CDT 03/28/2024 6:42 AM CDT Ernie Baldwin MD LAB BLOOD ORDERABLES Final Res ult Performing Organization Address [facility] Co de Phone Number ORI STOD[facility] [address] [place] [address] * POCT glucose (03/28/2024 1:27 AM CDT) Glucose, POC 137 70 - 199 mg/dL Blood 03/28/2024 1:27 AM CDT 03/28/2024 1:27 AM CDT Ernie Baldwin MD LAB POCT ORDERABLES - DEVICE F inal Result Performing Organization Address [facility] Co de Phone Number B[facility] STOD[facility] [address] [place] [address] * aPTT (03/27/2024 9:37 PM CDT) aPTT [...] ORDERABLES Final Res ult Performing Organization Address [facility] Co de Phone Number ORI STOD[facility] [address] [facility] [place] [address] * Protime-INR (03/27/2024 9:37 PM CDT) PT [...] ORDERABLES Final Res ult Performing Organization Address [facility]/ZIP Co de Phone Number [place]I [address] [place] [address] * POCT glucose (03/27/2024 8:47 PM CDT) Pathologist [facility] Glucose, POC 122 70 - 199 mg/dL Blood 03/27/2024 8:47 PM CDT 03/27/2024 8:47 PM CDT Ernie Baldwin MD LAB POCT ORDERABLES - DEVICE F inal Result Performing Organization Address City/[facility]/ZIP Co de Phone Number B[place] [address] [address] [facility] [place] [address] * POCT glucose (03/27/2024 4:54 PM CDT) Pathologist [facility] Glucose, POC 144 70 - 199 mg/dL Blood 03/27/2024 4:54 PM CDT 03/27/2024 4:54 PM CDT us Ernie Baldwin MD LAB POCT ORDERABLES - DEVICE F inal Result Performing Organization Address [facility] Co de Phone Number ORI STODD[facility] [address] [employer] [place], [place] [phone] * eGFR (03/27/2024 2:23 PM CDT) eGFR [...] ORDERABLES Final Res ult Performing Organization Address [facility] Co de Phone Number ORI STODDARD [address] [employer] [place], [place] [phone] * Phosphorus (03/27/2024 2:23 PM CDT) [facility] Phosphorus, pl 3.8 2.3 - 4.5 mg/dL Blood 03/27/2024 2:23 PM CDT 03/27/2024 2:36 PM CDT Ernie Baldwin MD LAB BLOOD ORDERABLES Final Res ult ORI SOT[facility] [address] [place] [address] * (ABNORMAL) CBC without differential (03/27/2024 2:23 PM CDT) [facility] WBC 10.5(H) 3.8 - 9.9 K/cumm Hgb 8.1(L) 13.0 - 17.5 g/dL [facility] Hct 23.2(L) 38.9 - 50.3 % [facility] Plt 137(L) 150 - 400 K/cumm [facility] MPV 10.7 9.1 - 12.3 fL [facility] RBC 2.61(L) 4.30 - 5.80 M/cumm [facility] MCV 88.9 81.3 - 96.4 fL [facility] MCH 31.0 27.1 - 33.3 pg [facility] MCHC 34.9 32.3 - 35.7 g/dL [facility] RDW CV 14.2 11.1 - 14.9 % [facility] RDW SD 45.3 35.7 - 48.1 fL [facility] NRBC abs 0.00 0.00 - 0.01 K/cumm [facility] Blood 03/27/2024 2:23 PM CDT 03/27/2024 2:36 PM CDT Ernie Baldwin MD LAB BLOOD ORDERABLES Final Res ult [facility]I [facility] [address] Department [address] [employer] [place], [place] [phone] * Magnesium (03/27/2024 2:23 PM CDT) Magnesium 1.7 1.4 - 2.5 mg/dL Blood 03/27/2024 2:23 PM CDT 03/27/2024 2:36 PM CDT Ernie Baldwin MD LAB BLOOD ORDERABLES Final Res ult ORI [address] [place] [address] * (ABNORMAL) Basic metabolic panel (03/27/2024 2:23 PM CDT) Sodium 139 135 - 145 mmol/L Potassium, pl 3.6 3.3 - 4.9 mmol/L [facility] Chloride 100 97 - 110 mmol/L [facility] CO2 26 22 - 32 mmol/L [facility] Anion gap 13 2 - 15 mmol/L [facility] BUN 25 6 - 25 mg/dL [facility] Creatinine 0.76(L) 0.80 - 1.30 mg/dL [facility] Comment:Icteric sample, test results may be affected. Glucose 115 70 - 199 mg/dL [facility] Comment: Interpretive Data Fasting glucose >/= [...] 2022. Calcium 8.8 8.5 - 10.3 mg/dL [facility] Blood 03/27/2024 2:23 PM CDT 03/27/2024 2:36 PM CDT Ernie Baldwin MD LAB BLOOD ORDERABLES Final Res ult Performing Organization Address City/[facility]/ZIP Co de Phone [facility] [address] [address] [facility] [place] [address] * aPTT (03/27/2024 2:23 PM CDT) aPTT [...] [place] [address] [address] [facility] [place] [address] * Critical Care (03/27/2024 12:14 PM CDT) [...] plan with the patient's team and other medical/performance management consultant staff. This time was in addition to and separate from care provided by other practitioners on this day of service. ?? us Tam Arias MOSAIC TILE MAKER IN CLINIC/BEDSIDE ORD ERABLES Final Result * POCT glucose (03/27/2024 11:55 AM CDT) Glucose, POC 110 70 - 199 mg/dL Blood 03/27/2024 11:5 5 AM CDT 03/27/2024 11:55 AM CDT Ernie Baldwin MD LAB POCT ORDERABLES - DEVICE F inal Result [facility] [address] [place] [address] * XR Chest 1 Vw Portable (03/27/2024 [...] AM CDT 03/27/2024 7:53 AM CDT Result [facility] Ernie Baldwin MD LAB POCT ORDERABLES - DEVICE F inal Result Performing Organization Address [facility] de Phone Number [facility] [address] [address] [facility] [place] [address] * Protime-INR (03/27/2024 6:49 AM CDT) PT [...] AM CDT 03/27/2024 7:17 AM CDT Result [facility] Ernie Baldwin MD LAB BLOOD ORDERABLES Final Res ult Performing Organization Address [facility] de Phone Number [facility] [address] [address] [facility] [place] [address] * (ABNORMAL) aPTT (03/27/2024 6:49 AM CDT) [...] ORDERABLES Final Res ult Performing Organization Address [facility] Co de Phone Number ORI STODDARD [address] [employer] [place], [place] [id number] * eGFR (03/27/2024 2:13 AM CDT) [facility] eGFR >90 >=60 mL/min/1. 73 m2 [...] ORDERABLES Final Res ult Performing Organization Address [facility] Co de Phone Number ORI STODDARD [address] [place] [address] * (ABNORMAL) Basic metabolic panel (03/27/2024 2:13 AM CDT) Sodium 137 135 - 145 mmol/L Potassium, pl 3.3 3.3 - 4.9 mmol/L [facility] Chloride 99 97 - 110 mmol/L [facility] CO2 26 22 - 32 mmol/L [facility] Anion gap 12 2 - 15 mmol/L [facility] BUN 25 6 - 25 mg/dL [facility] Creatinine 0.77(L) 0.80 - 1.30 mg/dL [facility] Comment:Icteric sample, test results may be affected. Glucose 128 70 - 199 mg/dL [facility] Comment: Interpretive Data Fasting glucose >/= [...] 2022. Calcium 8.7 8.5 - 10.3 mg/dL [facility] Blood 03/27/2024 2:13 AM CDT 03/27/2024 2:25 AM CDT us Ernie Baldwin MD LAB BLOOD ORDERABLES Final Res ult [facility] [address] [place] [address] * (ABNORMAL) CBC without differential (03/27/2024 2:13 AM CDT) Pathologist [facility] WBC 10.3(H) 3.8 - 9.9 K/cumm Hgb 7.8(L) 13.0 - 17.5 g/dL [facility] Hct 22.6(L) 38.9 - 50.3 % [facility] Plt 115(L) 150 - 400 K/cumm [facility] MPV 11.0 9.1 - 12.3 fL [facility] RBC 2.55(L) 4.30 - 5.80 M/cumm [facility] MCV 88.6 81.3 - 96.4 fL [facility] MCH 30.6 27.1 - 33.3 pg [facility] MCHC 34.5 32.3 - 35.7 g/dL [facility] RDW CV 14.1 11.1 - 14.9 % [facility] RDW SD 45.0 35.7 - 48.1 fL [facility] NRBC abs 0.00 0.00 - 0.01 K/cumm [facility] Blood 03/27/2024 2:13 AM CDT 03/27/2024 2:28 AM CDT Ernie Baldwin MD LAB BLOOD ORDERABLES Final Res ult Performing Organization Address City/[facility]/ZIP Co de Phone Number ORI STODDARD [address] [place] [address] * aPTT (03/27/2024 12:12 AM CDT) aPTT [...] BLOOD ORDERABLES Fin al Result ORI STODDARD [address] [place] [address] * POCT glucose (03/26/2024 8:28 PM CDT) Glucose, POC 171 70 - 199 mg/dL Blood 03/26/2024 8:28 PM CDT 03/26/2024 8:28 PM CDT Ernie Baldwin MD LAB POCT ORDERABLES - DEVICE F inal Result Performing Organization Address [facility] de Phone Number ORI STODDARD [address] [facility] [place] [address] * aPTT (03/26/2024 5:32 PM [...] ORDERABLES Fin al Result Performing Organization Address [facility] de Phone Number ORI [address] [address] [facility] [place] [address] * POCT glucose (03/26/2024 4:54 PM CDT) Glucose, POC 99 70 - 199 mg/dL Blood 03/26/2024 4:54 PM CDT 03/26/2024 4:54 PM CDT Ernie Baldwin MD LAB POCT ORDERABLES - DEVICE F inal Result Performing Organization Address [facility] de Phone Number ORI [address] [address] [facility] [employer] [place], [place] [id number] * eGFR (03/26/2024 12:15 PM CDT) eGFR [...] MD LAB BLOOD ORDERABLES Fin al Result [facility] [address] [place] [address] * (ABNORMAL) Differential, auto (03/26/2024 12:15 PM CDT) Neutrophil abs 9.2(H) 1.5 - 6.5 K/cumm Imm gran abs 0.1 0.0 - 0.1 K/cumm [facility] Lymphocyte abs 2.4 0.8 - 3.3 K/cumm [facility] Monocyte abs 1.2(H) 0.2 - 0.8 K/cumm [facility] Eosinophil abs 0.1 0.0 - 0.5 K/cumm [facility] Basophil abs 0.0 0.0 - 0.1 K/cumm [facility] Neutrophil pct 70.9 % [facility] Comment: Interpretive Data Percent cell count reference ranges are not reported, since discordance with absolute values may lead to misinterpretation of CBC data. Current Interpretive Data was last revised on 2017. Imm gran pct 0.5 % [facility] Comment: Interpretive Data Percent cell count reference ranges are not reported, since discordance with absolute values may lead to misinterpretation of CBC data. Current Interpretive Data was last revised on 2017. Lymphocyte pct 18.4 % [facility] Comment: Interpretive Data Percent cell count reference ranges are not reported, since discordance with absolute values may lead to misinterpretation of CBC data. Current Interpretive Data was last revised on 2017. Monocyte pct 9.1 % [facility] Comment: Interpretive Data Percent cell count reference ranges are not reported, since discordance with absolute values may lead to misinterpretation of CBC data. Current Interpretive Data was last revised on 2017. Eosinophil pct 0.9 % [facility] Comment: Interpretive Data Percent cell count reference ranges are not reported, since discordance with absolute values may lead to misinterpretation of CBC data. Current Interpretive Data was last revised on 2017. Basophil pct 0.2 % [facility] Comment: Interpretive Data Percent cell count reference ranges are not reported, since discordance with absolute values may lead to misinterpretation of CBC data. Current Interpretive Data was last revised on 2017. Blood 03/26/2024 12:1 5 PM CDT 03/26/2024 12:56 PM CDT us Marlo Rdz MD LAB BLOOD ORDERABLES Fin al Result [facility] [address] [place] [address] * (ABNORMAL) CBC with auto differential (03/26/2024 12:15 PM CDT) WBC 12.9(H) 3.8 - 9.9 K/cumm Hgb 8.8(L) 13.0 - 17.5 g/dL [facility] Hct 25.2(L) 38.9 - 50.3 % [facility] Plt 138(L) 150 - 400 K/cumm [facility] MPV 11.3 9.1 - 12.3 fL [facility] RBC 2.88(L) 4.30 - 5.80 M/cumm [facility] MCV 87.5 81.3 - 96.4 fL [facility] MCH 30.6 27.1 - 33.3 pg [facility] MCHC 34.9 32.3 - 35.7 g/dL [facility] RDW CV 14.2 11.1 - 14.9 % [facility] RDW SD 44.4 35.7 - 48.1 fL [facility] NRBC abs 0.00 0.00 - 0.01 K/cumm [facility] Blood 03/26/2024 12:1 5 PM CDT 03/26/2024 12:56 PM CDT Marlo Rdz MD LAB BLOOD ORDERABLES Fin al Result Performing Organization Address [facility] Co de Phone Number ORI [address] [place] [address] * Phosphorus (03/26/2024 12:15 PM CDT) Phosphorus, pl 4.0 2.3 - 4.5 mg/dL Blood 03/26/2024 12:1 5 PM CDT 03/26/2024 12:30 PM CDT Marlo Rdz MD LAB BLOOD ORDERABLES Fin al Result Performing Organization Address [facility] de Phone Number [facility] [address] [place] [address] * Magnesium (03/26/2024 12:15 PM CDT) Magnesium 2.0 1.4 - 2.5 mg/dL Blood 03/26/2024 12:1 5 PM CDT 03/26/2024 12:30 PM CDT Marlo Rdz MD LAB BLOOD ORDERABLES Fin al Result Performing Organization Address City/[facility] Co de Phone Number [facility] [address] [place] [address] * Basic metabolic panel (03/26/2024 12:15 PM CDT) Sodium 139 135 - 145 mmol/L Potassium, pl 3.8 3.3 - 4.9 mmol/L [facility] Chloride 100 97 - 110 mmol/L [facility] CO2 27 22 - 32 mmol/L [facility] Anion gap 12 2 - 15 mmol/L [facility] BUN 23 6 - 25 mg/dL [facility] Creatinine 0.80 0.80 - 1.30 mg/dL [facility] Comment:Icteric sample, test results may be affected. Glucose 86 70 - 199 mg/dL [facility] Comment: Interpretive Data Fasting glucose >/= [...] 2022. Calcium 9.0 8.5 - 10.3 mg/dL [facility] Blood 03/26/2024 12:1 5 PM CDT 03/26/2024 12:30 PM CDT Marlo Rdz MD LAB BLOOD ORDERABLES Fin al Result [facility] [address] [place] [address] * aPTT (03/26/2024 12:15 PM CDT) aPTT [...] ORDERABLES Fin al Result Performing Organization Address City/[facility]/[place] [address] [address] [place] [address] * POCT glucose (03/26/2024 12:10 PM CDT) Glucose, POC 99 70 - 199 mg/dL Blood 03/26/2024 12:1 0 PM CDT 03/26/2024 12:10 PM CDT Ernie Baldwin MD LAB POCT ORDERABLES - DEVICE F inal Result Performing Organization Address [facility] [place] [address] [address] [place] [address] * Critical Care (03/26/2024 10:03 AM CDT) [...] plan with the patient's team and other medical/performance management consultant staff. This time was in addition to and separate from care provided by other practitioners on this day of service. ?? Tam Arias [employer] [facility]/BEDSIDE ORD ERABLES Final Result * [...] ORDERABLES - DEVICE F inal Result ORI [address] [place] [address] * (ABNORMAL) aPTT (03/26/2024 6:13 [...] LAB BLOOD ORDERABLES Final Res ult ORI [address] [place] [address] * eGFR (03/26/2024 4:30 AM CDT) eGFR [...] MD LAB BLOOD ORDERABLES Final Res ult [facility] [address] [place] [address] * (ABNORMAL) Basic metabolic panel (03/26/2024 4:30 AM CDT) Sodium 141 135 - 145 mmol/L Potassium, pl 3.4 3.3 - 4.9 mmol/L [facility] Chloride 102 97 - 110 mmol/L [facility] CO2 30 22 - 32 mmol/L [facility] Anion gap 9 2 - 15 mmol/L [facility] BUN 22 6 - 25 mg/dL [facility] Creatinine 0.78(L) 0.80 - 1.30 mg/dL [facility] Comment:Icteric sample, test results may be affected. Glucose 137 70 - 199 mg/dL [facility] Comment: Interpretive Data Fasting glucose >/= [...] 2022. Calcium 8.3(L) 8.5 - 10.3 mg/dL [facility] Blood 03/26/2024 4:30 AM CDT 03/26/2024 4:53 AM CDT Ernie Baldwin MD LAB BLOOD ORDERABLES Final Res ult Performing Organization Address City/[facility]/ZIP Co de Phone Number ORI STODDARD [address] [address] [facility] [place] [address] * Magnesium (03/26/2024 4:30 AM CDT) Magnesium 2.1 1.4 - 2.5 mg/dL Blood 03/26/2024 4:30 AM CDT 03/26/2024 4:53 AM CDT Ernie Baldwin MD LAB BLOOD ORDERABLES Final Res ult Performing Organization Address [facility] de Phone Number ORI STODDARD [address] [facility] [place] [address] * (ABNORMAL) CBC without differential (03/26/2024 4:30 AM CDT) WBC 10.1(H) 3.8 - 9.9 K/cumm Hgb 7.9(L) 13.0 - 17.5 g/dL [facility] Hct 22.8(L) 38.9 - 50.3 % [facility] Plt 87(L) 150 - 400 K/cumm [facility] MPV 11.2 9.1 - 12.3 fL [facility] RBC 2.62(L) 4.30 - 5.80 M/cumm [facility] MCV 87.0 81.3 - 96.4 fL [facility] MCH 30.2 27.1 - 33.3 pg [facility] MCHC 34.6 32.3 - 35.7 g/dL [facility] RDW CV 14.3 11.1 - 14.9 % [facility] RDW SD 44.4 35.7 - 48.1 fL [facility] NRBC abs 0.00 0.00 - 0.01 K/cumm [facility] Blood 03/26/2024 4:30 AM CDT 03/26/2024 4:53 AM CDT Ernie Baldwin MD LAB BLOOD ORDERABLES Final Res ult Performing Organization Address [facility] Co de Phone Number ORI STODDARD [address] [address] [place] [address] * POCT glucose (03/26/2024 3:11 AM CDT) Glucose, POC 117 70 - 199 mg/dL Blood 03/26/2024 3:11 AM CDT 03/26/2024 3:11 AM CDT Ernie Baldwin MD LAB POCT ORDERABLES - DEVICE F inal Result Performing Organization Address [facility] de Phone Number ORI STODDARD [address] [address] [facility] [place] [address] * (ABNORMAL) aPTT (03/26/2024 12:10 AM CDT) [...] ORDERABLES Final Res ult Performing Organization Address [facility] Co de Phone Number ORI STODDARD [address] [address] [place] [address] * POCT glucose (03/25/2024 7:33 PM CDT) Glucose, POC 132 70 - 199 mg/dL Blood 03/25/2024 7:33 PM CDT 03/25/2024 7:33 PM CDT Ernie Baldwin MD LAB POCT ORDERABLES - DEVICE F inal Result Performing Organization Address [facility] Co de Phone Number ORI [address] [address] [facility] [place] [address] * (ABNORMAL) aPTT (03/25/2024 6:50 PM CDT) [facility] aPTT 27(L) 28 - 38 sec Comment: Interpretive Data Heparin therapeutic range: 66.0 - 100.0 seconds. Range based on correlation with therapeutic heparin activity range of 0.3 - 0.7 Units/mL. Current interpretive data was last revised on 2023. Blood 03/25/2024 6:50 PM CDT 03/25/2024 6:52 PM CDT Ernie Baldwin MD LAB BLOOD ORDERABLES Final Res ult Performing Organization Address [facility] Co de Phone Number ORI [address] [address] [facility] [place] [address] * POCT glucose (03/25/2024 4:58 PM CDT) Pathologist [facility] Glucose, POC 131 70 - 199 mg/dL Blood 03/25/2024 4:58 PM CDT 03/25/2024 4:58 PM CDT Ernie Baldwin MD LAB POCT ORDERABLES - DEVICE F inal Result Performing Organization Address [facility] Co de Phone Number ORI [address] [address] [facility] [place] [address] * eGFR (03/25/2024 4:21 PM CDT) [facility] eGFR >90 >=60 mL/min/1. 73 m2 [...] MD LAB BLOOD ORDERABLES Final Res ult [facility] [address] [place] [address] * (ABNORMAL) Basic metabolic panel (03/25/2024 4:21 PM CDT) [facility] Sodium 143 135 - 145 mmol/L Potassium, pl 3.5 3.3 - 4.9 mmol/L [facility] Chloride 104 97 - 110 mmol/L [facility] CO2 25 22 - 32 mmol/L [facility] Anion gap 14 2 - 15 mmol/L [facility] BUN 23 6 - 25 mg/dL [facility] Creatinine 0.71(L) 0.80 - 1.30 mg/dL [facility] Comment:Icteric sample, test results may be affected. Glucose 111 70 - 199 mg/dL [facility] Comment: Interpretive Data Fasting glucose >/= [...] 2022. Calcium 8.4(L) 8.5 - 10.3 mg/dL [facility] Blood 03/25/2024 4:21 PM CDT 03/25/2024 4:24 PM CDT us Ernie Baldwin MD LAB BLOOD ORDERABLES Final Res ult [facility] [address] [place] [address] * (ABNORMAL) CBC without differential (03/25/2024 12:21 PM CDT) WBC 11.3(H) 3.8 - 9.9 K/cumm Hgb 8.0(L) 13.0 - 17.5 g/dL [facility] Hct 22.8(L) 38.9 - 50.3 % [facility] Plt 68(L) 150 - 400 K/cumm [facility] Comment:No clot detected in sample. MPV 11.4 9.1 - 12.3 fL [facility] RBC 2.65(L) 4.30 - 5.80 M/cumm [facility] MCV 86.0 81.3 - 96.4 fL [facility] MCH 30.2 27.1 - 33.3 pg [facility] MCHC 35.1 32.3 - 35.7 g/dL [facility] RDW CV 14.3 11.1 - 14.9 % [facility] RDW SD 44.5 35.7 - 48.1 fL [facility] NRBC abs 0.00 0.00 - 0.01 K/cumm [facility] Blood 03/25/2024 12:2 1 PM CDT 03/25/2024 12:36 PM CDT Narrative [facility] - 03/25/2024 1:39 PM CDT Baseline prior to warfarin initiation. Ernie Baldwin MD LAB BLOOD ORDERABLES Final Res ult Performing Organization Address [facility] Co de Phone Number BANDARRIO [address] [place] [address] * (ABNORMAL) aPTT (03/25/2024 12:21 PM CDT) aPTT 26(L) 28 - 38 sec Comment: Interpretive Data Heparin therapeutic range: 66.0 - 100.0 seconds. Range based on correlation with therapeutic heparin activity range of 0.3 - 0.7 Units/mL. Current interpretive data was last revised on 2023. Blood 03/25/2024 12:2 1 PM CDT 03/25/2024 12:36 PM CDT Narrative [facility] - 03/25/2024 12:51 PM CDT Baseline prior to heparin initiation Ernie Baldwni MD LAB BLOOD ORDERABLES Final Res ult Performing Organization Address [facility] Co de Phone Number ORI STODDARD [address] [address] [facility] [employer] [place], [place] [id number] * Protime-INR (03/25/2024 12:21 PM CDT) PT 11.9 9.7 - 13.0 sec INR 1.10 0.90 - 1.20 [facility] Comment: Interpretive data Oral anticoagulant therapeutic [...] ORDERABLES Final Res ult Performing Organization Address [facility] de Phone Number ORI [address] [address] [place] [address] * POCT glucose (03/25/2024 12:06 PM CDT) [facility] Signature Glucose, POC 129 70 - 199 mg/dL Blood 03/25/2024 12:0 6 PM CDT 03/25/2024 12:06 PM CDT Ernie Baldwin MD LAB POCT ORDERABLES - DEVICE F inal Result Performing Organization Address [facility] Phone Number [facility] [address] [address] [place] [address] * ECG 12 lead (03/25/2024 9:58 AM CDT) 03/25/2024 9:58 AM CDT Narrative [facility] - 03/25/2024 10:18 AM CDT Vent Rate: 92 bpm RR Interval: 646 msec PA Interval: 135 msec QRS Duration: 102 msec QT Interval: 409 msec QTC Interval: 459 msec P-R-T [place]: 55 - 30 - 21 degrees IMPRESSION: SINUS RHYTHM NONSPECIFIC T-WAVE ABNORMALITY BORDERLINE ECG Compared to prior EKG, heart rate has increased ST elevations are no longer present Electronically Signed By: West Ruvalcaba MD Ernie Baldwin MD ECG ORDERABLES Final Result Performing Organization Address [facility] de Phone Number [facility] n[facility] * Critical Care (03/25/2024 8:35 AM CDT) [...] plan with the patient's team and other medical/performance management consultant staff. This time was in addition [...] DEVICE F inal Result Performing Organization Address City/State/[facility] Co az Phone Number [facility] [address] Department of Laboratories [place], [place] [id number] * XR Chest 1 Vw Portable (03/25/2024 [...] failure. ??The distal tip of a retracted Ragland-Stevie catheter is in the distal superior vena [...] failure. The distal tip of a retracted Ragland-Stevie catheter is in the distal superior vena [...] MD LAB BLOOD ORDERABLES Final Res ult [facility] [address] [place] [address] * (ABNORMAL) Basic metabolic panel (03/25/2024 5:05 AM CDT) Sodium 142 135 - 145 mmol/L Potassium, pl 3.7 3.3 - 4.9 mmol/L [facility] Chloride 109 97 - 110 mmol/L [facility] CO2 24 22 - 32 mmol/L [facility] Anion gap 9 2 - 15 mmol/L [facility] BUN 25 6 - 25 mg/dL [facility] Creatinine 0.71(L) 0.80 - 1.30 mg/dL [facility] Glucose 134 70 - 199 mg/dL [facility] Comment: Interpretive Data Fasting glucose >/= [...] 2022. Calcium 8.0(L) 8.5 - 10.3 mg/dL [facility] Blood 03/25/2024 5:05 AM CDT 03/25/2024 5:21 AM CDT Ernie Baldwin MD LAB BLOOD ORDERABLES Final Res ult Performing Organization Address City/[facility]/ZIP Co de Phone Number ORI STODDARD [address] [place] [address] * Magnesium (03/25/2024 5:05 AM CDT) Pathologist [facility] Magnesium 1.9 1.4 - 2.5 mg/dL Blood 03/25/2024 5:05 AM CDT 03/25/2024 5:21 AM CDT Ernie Baldwin MD LAB BLOOD ORDERABLES Final Res ult Performing Organization Address [facility] Co de Phone Number ORI STODDARD [address] [place] [address] * (ABNORMAL) CBC without differential (03/25/2024 5:05 AM CDT) WBC 10.1(H) 3.8 - 9.9 K/cumm Hgb 7.4(L) 13.0 - 17.5 g/dL [facility] Hct 21.9(L) 38.9 - 50.3 % [facility] Plt 56(L) 150 - 400 K/cumm [facility] Comment:No clot detected in sample. MPV 11.7 9.1 - 12.3 fL [facility] RBC 2.49(L) 4.30 - 5.80 M/cumm [facility] MCV 88.0 81.3 - 96.4 fL [facility] MCH 29.7 27.1 - 33.3 pg [facility] MCHC 33.8 32.3 - 35.7 g/dL [facility] RDW CV 13.9 11.1 - 14.9 % [facility] RDW SD 44.1 35.7 - 48.1 fL [facility] NRBC abs 0.00 0.00 - 0.01 K/cumm [facility] Blood 03/25/2024 5:05 AM CDT 03/25/2024 5:21 AM CDT Ernie Baldwin MD LAB BLOOD ORDERABLES Final Res ult Performing Organization Address [facility] Co de Phone Number ORI STODDARD [address] [address] [facility] [place] [address] * Transfuse RBC (03/25/2024 3:13 AM CDT) Blood Ernie Baldwin MD BLOOD TRANSFUSION ORDERABLES F inal Result Performing Organization Address [facility] Co de Phone Number BANDARRIO STODDARD [address] [address] [facility] [place] [address] * POCT glucose (03/25/2024 2:32 AM CDT) Glucose, POC 132 70 - 199 mg/dL Blood 03/25/2024 2:32 AM CDT 03/25/2024 2:32 AM CDT Ernie Baldwin MD LAB POCT ORDERABLES - DEVICE F inal Result Performing Organization Address [facility] Co de Phone Number ORI [address] [address] [facility] [place] [address] * POCT glucose (03/24/2024 9:22 PM CDT) Glucose, POC 140 70 - 199 mg/dL Blood 03/24/2024 9:22 PM CDT 03/24/2024 9:22 PM CDT Ernie Baldwin MD LAB POCT ORDERABLES - DEVICE F inal Result Performing Organization Address [facility] Co de Phone Number ORI [address] [address] [facility] [place] [address] * POCT glucose (03/24/2024 5:52 PM CDT) Glucose, POC 117 70 - 199 mg/dL Blood 03/24/2024 5:52 PM CDT 03/24/2024 5:52 PM CDT Ernie Baldwin MD LAB POCT ORDERABLES - DEVICE F inal Result Performing Organization Address [facility] de Phone Number ORI [address] [address] [facility] [employer] [place], [place] [id number] * Prepare RBC: 1 Units (03/24/2024 3:57 PM CDT) [facility] Product code [id number] Unit Number [id number] 1-W [facility] Product Blood Type BPOS [facility] Dispense Status RETURNED [facility] Blood 03/24/2024 3:57 PM CDT Narrative [facility] - 03/26/2024 12:05 AM CDT Are special requirements needed? (All products are leukoreduced and CMV- safe)- >No Date required:-[id number] LRRBC # of [id number] Reasons:-Hgb <7 g/dL} Ernie Baldwin MD BLOOD BANK PRODUCT ORDERABLES Final Result Performing Organization Address [facility] de Phone Number ORI [address] [address] [facility] [place] [address] * eGFR (03/24/2024 2:01 PM CDT) [facility] eGFR >90 >=60 mL/min/1. 73 m2 [...] MD LAB BLOOD ORDERABLES Final Res ult [facility] [address] Department of Laboratories [place], [place] [id number] * (ABNORMAL) CBC without differential (03/24/2024 2:01 PM CDT) WBC 11.6(H) 3.8 - 9.9 K/cumm Hgb 6.9(L) 13.0 - 17.5 g/dL [facility] Hct 19.6(L) 38.9 - 50.3 % [facility] Plt 54(L) 150 - 400 K/cumm [facility] MPV 11.3 9.1 - 12.3 fL [facility] RBC 2.27(L) 4.30 - 5.80 M/cumm [facility] MCV 86.3 81.3 - 96.4 fL [facility] MCH 30.4 27.1 - 33.3 pg [facility] MCHC 35.2 32.3 - 35.7 g/dL [facility] RDW CV 13.4 11.1 - 14.9 % [facility] RDW SD 42.4 35.7 - 48.1 fL [facility] NRBC abs 0.00 0.00 - 0.01 K/cumm [facility] Blood 03/24/2024 2:01 PM CDT 03/24/2024 2:13 PM CDT Ernie Baldwin MD LAB BLOOD ORDERABLES Final Res ult Performing Organization Address [facility] Co de Phone Number ORI STODDARD [address] [place] [address] * (ABNORMAL) Phosphorus (03/24/2024 2:01 PM CDT) Phosphorus, pl 1.4(L) 2.3 - 4.5 mg/dL Blood 03/24/2024 2:01 PM CDT 03/24/2024 2:14 PM CDT Ernie Baldwin MD LAB BLOOD ORDERABLES Final Res ult Performing Organization Address [facility] de Phone Number BANDARRIO STODDARD [address] [address] [place] [address] * Magnesium (03/24/2024 2:01 PM CDT) Pathologist [facility] Magnesium 1.9 1.4 - 2.5 mg/dL Blood 03/24/2024 2:01 PM CDT 03/24/2024 2:14 PM CDT Ernie Baldwin MD LAB BLOOD ORDERABLES Final Res ult Performing Organization Address [facility] de Phone Number ORI STODDARD [address] [address] [place] [address] * (ABNORMAL) Basic metabolic panel (03/24/2024 2:01 PM CDT) Sodium 141 135 - 145 mmol/L Potassium, pl 3.6 3.3 - 4.9 mmol/L [facility] Chloride 108 97 - 110 mmol/L [facility] CO2 22 22 - 32 mmol/L [facility] Anion gap 11 2 - 15 mmol/L [facility] BUN 22 6 - 25 mg/dL [facility] Creatinine 0.71(L) 0.80 - 1.30 mg/dL [facility] Glucose 195 70 - 199 mg/dL [facility] Comment: Interpretive Data Fasting glucose >/= [...] 2022. Calcium 8.0(L) 8.5 - 10.3 mg/dL [facility] Blood 03/24/2024 2:01 PM CDT 03/24/2024 2:14 PM CDT Ernie Baldwin MD LAB BLOOD ORDERABLES Final Res ult BANDARRIO STOD[address] [address] [place] [address] * (ABNORMAL) POCT glucose (03/24/2024 12:41 PM CDT) Glucose, POC 231(H) 70 - 199 mg/dL Blood 03/24/2024 12:4 1 PM CDT 03/24/2024 12:41 PM CDT Ernie Baldwin MD LAB POCT ORDERABLES - DEVICE F inal Result Performing Organization Address City/[facility]/ZIP Co de Phone Number BANDARRIO [address] [employer] [place], [place] [phone] * POCT glucose (03/24/2024 7:38 AM CDT) Glucose, POC 192 70 - 199 mg/dL Blood 03/24/2024 7:38 AM CDT 03/24/2024 7:38 AM CDT us Ernie Baldwin MD LAB POCT ORDERABLES - DEVICE F inal Result Performing Organization Address City/State/[place] [address] [address] [address] * Critical Care (03/24/2024 7:13 AM CDT) [...] plan with the ICU team and other medical/performance management consultant staff, making frequent assessments and decisions [...] Result * eGFR (03/24/2024 4:06 AM CDT) [facility] eGFR >90 >=60 mL/min/1. 73 m2 [...] MD LAB BLOOD ORDERABLES Final Res ult [facility] [address] [place] [address] * (ABNORMAL) Basic metabolic panel (03/24/2024 4:06 AM CDT) Sodium 140 135 - 145 mmol/L Potassium, pl 3.9 3.3 - 4.9 mmol/L [facility] Chloride 109 97 - 110 mmol/L [facility] CO2 20(L) 22 - 32 mmol/L [facility] Anion gap 11 2 - 15 mmol/L [facility] CH BUN 19 6 - 25 mg/dL [facility] Creatinine 0.68(L) 0.80 - 1.30 mg/dL [facility] Glucose 173 70 - 199 mg/dL [facility] [...] 2022. Calcium 8.4(L) 8.5 - 10.3 mg/dL [facility] Blood 03/24/2024 4:06 AM CDT 03/24/2024 4:24 AM CDT Ernie Baldwin MD LAB BLOOD ORDERABLES Final Res ult Performing Organization Address [facility] de Phone Number ORI STODDARD [address] [address] [place] [address] * Magnesium (03/24/2024 4:06 AM CDT) Pathologist [facility] Magnesium 2.0 1.4 - 2.5 mg/dL Blood 03/24/2024 4:06 AM CDT 03/24/2024 4:24 AM CDT Ernie Baldwin MD LAB BLOOD ORDERABLES Final Res ult Performing Organization Address [facility] de Phone Number ORI [address] [address] [place] [address] * (ABNORMAL) CBC without differential (03/24/2024 4:06 AM CDT) WBC 10.9(H) 3.8 - 9.9 K/cumm Hgb 7.1(L) 13.0 - 17.5 g/dL [facility] Hct 20.0(L) 38.9 - 50.3 % [facility] Plt 54(L) 150 - 400 K/cumm [facility] Comment:No clot detected in sample. MPV [...] LAB BLOOD ORDERABLES Final Res ult ORI [address] [address] [place] [address] * XR Chest 1 View (03/24/2024 4:00 [...] removed. ??The distal tip off the retracted Ragland-Stevie catheter is in the superior vena cava. [...] removed. The distal tip off the retracted Ragland-Stevie catheter is in the superior vena cava. Heart not enlarged. Aortic atherosclerosis. Right effusion noted, with the remainder of the lungs being clear. IMPRESSION: Right effusion. Electronically signed by: Hamzah Mackey M.D. Ernie Baldwin MD IMG XR PROCEDURES Final Result * POCT glucose (03/24/2024 1:50 AM CDT) [facility] Signature Glucose, POC 178 70 - 199 mg/dL Blood 03/24/2024 1:50 AM CDT 03/24/2024 1:50 AM CDT Ernie Baldwin MD LAB POCT ORDERABLES - DEVICE F inal Result [facility] [address] [address] [place] Department of Laboratories [place] [phone] * Critical Care (03/23/2024 11:23 PM CDT) [...] plan with the ICU team and other medical/performance management consultant staff, making frequent assessments and decisions [...] PM CDT 03/23/2024 8:08 PM CDT Result [facility] Ernie Baldwin MD LAB POCT ORDERABLES - DEVICE F inal Result Performing Organization Address [facility] [place] [address] [address] [employer] [place], [place] [phone] * POCT glucose (03/23/2024 4:23 PM CDT) Glucose, POC 134 70 - 199 mg/dL Blood 03/23/2024 4:23 PM CDT 03/23/2024 4:23 PM CDT Ernie Baldwin MD LAB POCT ORDERABLES - DEVICE F inal Result Performing Organization Address [facility]/[place] [address] [place] [address] * POCT glucose (03/23/2024 1:48 PM CDT) Glucose, POC 111 70 - 199 mg/dL Blood 03/23/2024 1:48 PM CDT 03/23/2024 1:48 PM CDT Ernie Baldwin MD LAB POCT ORDERABLES - DEVICE F inal Result Performing Organization Address [facility]/ZIP Co de Phone Number ORI STODDARD [address] [address] [place] [address] * eGFR (03/23/2024 1:00 PM CDT) eGFR [...] ORDERABLES Final Res ult Performing Organization Address City/[facility]/ZIP Co de Phone Number ORI STODDARD [address] [address] Department [employer] [place], [place] [phone] * Magnesium (03/23/2024 1:00 PM CDT) Magnesium 1.7 1.4 - 2.5 mg/dL Blood 03/23/2024 1:00 PM CDT 03/23/2024 1:14 PM CDT Ernie Baldwin MD LAB BLOOD ORDERABLES Final Res ult Performing Organization Address [facility] Co de Phone Number ORI STODDARD [address] [place] [address] * (ABNORMAL) CBC without differential (03/23/2024 1:00 PM CDT) Pathologist [facility] WBC 9.9 3.8 - 9.9 K/cumm Hgb 7.1(L) 13.0 - 17.5 g/dL [facility] Hct 20.0(L) 38.9 - 50.3 % [facility] Plt 57(L) 150 - 400 K/cumm [facility] Comment:No clot detected in sample. MPV 10.2 9.1 - 12.3 fL [facility] RBC 2.35(L) 4.30 - 5.80 M/cumm [facility] MCV 85.1 81.3 - 96.4 fL [facility] MCH 30.2 27.1 - 33.3 pg [facility] MCHC 35.5 32.3 - 35.7 g/dL [facility] RDW CV 13.5 11.1 - 14.9 % [facility] RDW SD 41.7 35.7 - 48.1 fL [facility] NRBC abs 0.00 0.00 - 0.01 K/cumm [facility] Blood 03/23/2024 1:00 PM CDT 03/23/2024 1:14 PM CDT Ernie Baldwin MD LAB BLOOD ORDERABLES Final Res ult Performing Organization Address [facility]/ZIP Co de Phone Number ORI RICHI [address] [address] [place] [address] * (ABNORMAL) Basic metabolic panel [...] 2022. Calcium 7.3(L) 8.5 - 10.3 mg/dL [facility] Blood 03/23/2024 1:00 PM CDT 03/23/2024 1:14 PM CDT Ernie Baldwin MD LAB BLOOD ORDERABLES Final Res ult Performing Organization Address [facility]/ZIP Co de Phone Number [facility] [address] [address] [place] [address] * POCT glucose (03/23/2024 11:08 AM CDT) Glucose, POC 122 70 - 199 mg/dL Blood 03/23/2024 11:0 8 AM CDT 03/23/2024 11:08 AM CDT Ernie Baldwin MD LAB POCT ORDERABLES - DEVICE F inal Result Performing Organization Address [facility] de Phone Number ORI STODDARD [address] [address] [facility] [place] [address] * (ABNORMAL) Blood gas, arterial (03/23/2024 9:09 [...] ORDERABLES Final Res ult Performing Organization Address [facility] de Phone Number ORI STODDARD [address] [address] [facility] [place] [address] * POCT glucose (03/23/2024 9:00 AM CDT) Glucose, POC 106 70 - 199 mg/dL Blood 03/23/2024 9:00 AM CDT 03/23/2024 9:00 AM CDT Ernie Baldwin MD LAB POCT ORDERABLES - DEVICE F inal Result Performing Organization Address [facility] de Phone Number ORI [address] [address] [facility] [place] [address] * Critical Care (03/23/2024 7:44 AM CDT) [...] plan with the ICU team and other medical/performance management consultant staff, making frequent assessments and decisions [...] AM CDT) 03/23/2024 7:29 AM CDT Narrative [facility] - 03/23/2024 8:52 AM CDT Vent Rate: 69 bpm RR Interval: 858 msec PA Interval: 158 msec QRS Duration: 92 msec QT Interval: 377 msec QTC Interval: 397 msec P-R-T [place]: 65 - 59 - 54 degrees IMPRESSION: SINUS RHYTHM ST-elevation inferior and lateral leads, consider early repolarization, pericarditis injury When compared to March 18, [address]-elevation inferior leads has increased Electronically Signed By: Dr. Deedee Dejesus [facility] Ernie Baldwin MD ECG ORDERABLES Final Result [facility] * POCT glucose (03/23/2024 6:23 AM CDT) Glucose, POC 138 70 - 199 mg/dL Blood 03/23/2024 6:23 AM CDT 03/23/2024 6:23 AM CDT Ernie Baldwin MD LAB POCT ORDERABLES - DEVICE F inal Result Performing Organization Address [facility] Co de Phone Number ORI STODDARD [address] [address] [facility] [place] [address] * POCT glucose (03/23/2024 4:25 AM CDT) Glucose, POC 129 70 - 199 mg/dL Blood 03/23/2024 4:25 AM CDT 03/23/2024 4:25 AM CDT Ernie Baldwin MD LAB POCT ORDERABLES - DEVICE F inal Result Performing Organization Address [facility] de Phone Number ORI STODDARD [address] [place] [address] * POCT glucose (03/23/2024 3:28 AM CDT) Glucose, POC 102 70 - 199 mg/dL Blood 03/23/2024 3:28 AM CDT 03/23/2024 3:28 AM CDT Ernie Baldwin MD LAB POCT ORDERABLES - DEVICE F inal Result Performing Organization Address [facility] [place] [address] [place] [address] * XR Chest 1 View - in [...] the endotracheal tube, nasogastric tube and retracted Ragland-Stevie catheter. Heart not enlarged. ??No failure. ??No [...] the endotracheal tube, nasogastric tube and retracted Ragland-Stevie catheter. Heart not enlarged. No failure. No [...] ORDERABLES - DEVICE F inal Result ORI [address] [address] [place] [address] * Oxyhemoglobin, pulmonary artery (03/23/2024 2:18 AM CDT) Oxyhemoglobin, PA 60.2 % Comment: Interpretive Data No reference range established. Current interpretive data was last revised 2019. Blood 03/23/2024 2:18 AM CDT 03/23/2024 2:19 AM CDT Ernie Baldwin MD LAB BLOOD ORDERABLES Final Res ult Performing Organization Address [facility] Co de Phone Number ORI STODDARD [address] [place] [address] * eGFR (03/23/2024 2:12 AM CDT) eGFR [...] ORDERABLES Final Res ult Performing Organization Address [facility] Co de Phone Number ORI STODDARD [address] [address] Department [employer] [place], [place] [phone] * (ABNORMAL) Basic metabolic panel (03/23/2024 2:12 [...] 2022. Calcium 9.1 8.5 - 10.3 mg/dL [facility] Blood 03/23/2024 2:12 AM CDT 03/23/2024 2:19 AM CDT Ernie Baldwin MD LAB BLOOD ORDERABLES Final Res ult Performing Organization Address [facility] Co de Phone Number [facility] [address] [address] [place] [address] * Magnesium (03/23/2024 2:12 AM CDT) Magnesium 1.9 1.4 - 2.5 mg/dL Blood 03/23/2024 2:12 AM CDT 03/23/2024 2:19 AM CDT Ernie Baldwin MD LAB BLOOD ORDERABLES Final Res ult Performing Organization Address [facility] Co de Phone Number ORI STODDARD [address] [address] [facility] [place] [address] * (ABNORMAL) CBC without differential (03/23/2024 2:12 AM CDT) WBC 14.5(H) 3.8 - 9.9 K/cumm Hgb 9.5(L) 13.0 - 17.5 g/dL [facility] Hct 27.0(L) 38.9 - 50.3 % [facility] Plt 96(L) 150 - 400 K/cumm [facility] MPV 10.2 9.1 - 12.3 fL [facility] RBC 3.14(L) 4.30 - 5.80 M/cumm [facility] MCV 86.0 81.3 - 96.4 fL [facility] MCH 30.3 27.1 - 33.3 pg [facility] MCHC 35.2 32.3 - 35.7 g/dL [facility] RDW CV 13.4 11.1 - 14.9 % [facility] RDW SD 42.0 35.7 - 48.1 fL [facility] NRBC abs 0.00 0.00 - 0.01 K/cumm [facility] Blood 03/23/2024 2:12 AM CDT 03/23/2024 2:19 AM CDT Ernie Baldwin MD LAB BLOOD ORDERABLES Final Res ult Performing Organization Address [facility] Co de Phone Number ORI [address] [facility] [place] [address] * POCT glucose (03/23/2024 1:16 AM CDT) Glucose, POC 138 70 - 199 mg/dL Blood 03/23/2024 1:16 AM CDT 03/23/2024 1:16 AM CDT Ernie Baldwin MD LAB POCT ORDERABLES - DEVICE F inal Result Performing Organization Address [facility] Co de Phone Number ORI STODDARD [address] [address] [facility] [place] [address] * POCT glucose (03/23/2024 12:05 AM CDT) Glucose, POC 139 70 - 199 mg/dL Blood 03/23/2024 12:0 5 AM CDT 03/23/2024 12:05 AM CDT Ernie Baldwin MD LAB POCT ORDERABLES - DEVICE F inal Result Performing Organization Address City/[facility]/ZIP Co de Phone Number ORI [address] [address] [facility] [place] [address] * (ABNORMAL) Protime-INR (03/22/2024 11:32 PM CDT) [...] LAB BLOOD ORDERABLES Fi nal Result ORI [address] [address] [facility] [place] [address] * Fibrinogen (03/22/2024 11:32 PM CDT) Fibrinogen 236 170 - 400 mg/dL Blood 03/22/2024 11:3 2 PM CDT 03/22/2024 11:35 PM CDT Marlo Portillo NP LAB BLOOD ORDERABLES Fi nal Result Performing Organization Address City/[facility]/ZIP Co de Phone Number ORI STODDARD [address] [address] [place] [address] * POCT glucose (03/22/2024 11:09 PM CDT) Glucose, POC 124 70 - 199 mg/dL Blood 03/22/2024 11:0 9 PM CDT 03/22/2024 11:09 PM CDT us Ernie Baldwin MD LAB POCT ORDERABLES - DEVICE F inal Result Performing Organization Address [facility] Co de Phone Number ORI STODDARD [address] [address] [place] [address] * Critical Care (03/22/2024 10:40 PM CDT) [...] plan with the ICU team and other medical/performance management consultant staff, making frequent assessments and decisions [...] consultants and the medical staff Marlo Portillo [employer] [facility]/BEDSIDE ORDER DINORA Final Result * POCT glucose (03/22/2024 10:15 PM CDT) Glucose, POC 137 70 - 199 mg/dL Blood 03/22/2024 10:1 5 PM CDT 03/22/2024 10:15 PM CDT Ernie Baldwin MD LAB POCT ORDERABLES - DEVICE F inal Result Performing Organization Address [facility] Co de Phone Number ORI STODDARD [address] [address] [place] [address] * Oxyhemoglobin, pulmonary artery (03/22/2024 9:51 PM CDT) Oxyhemoglobin, PA 56.4 % Comment: Interpretive Data No reference range established. Current interpretive data was last revised 2019. Blood 03/22/2024 9:51 PM CDT 03/22/2024 9:54 PM CDT Ernie Baldwin MD LAB BLOOD ORDERABLES Final Res ult Performing Organization Address [facility] Co de Phone Number ORI [address] [address] [place] [address] * XR Chest 1 Vw Portable (03/22/2024 [...] unchanged good position. ??The tip of the Ragland-Stevie catheter is in the undivided main pulmonary [...] unchanged good position. The tip of the Ragland-Steive catheter is in the undivided main pulmonary [...] BLOOD ORDERABLES Final Res ult ORI STODDARD [address] [address] Department [place] [address] * eGFR (03/22/2024 9:47 PM CDT) [...] MD LAB BLOOD ORDERABLES Final Res ult [facility] [address] [address] [place] [address] * (ABNORMAL) Blood gas, arterial (03/22/2024 9:47 PM CDT) pH, Art 7.38 7.35 - 7.45 PCO2, Arterial 40 35 - 45 mmHg [facility] PO2, Arterial 161(H) 83 - 108 mmHg [facility] HCO3 Art (Calculated) 24 20 - 30 mmol/L [facility] CH BE, art -1 mmol/L [facility] Comment: Interpretive Data No Reference Range Established Current Interpretive Data was last revised on 2017 O2 Sat Art (Measured) 98(H) 90 - 95 % [facility] Blood 03/22/2024 9:47 PM CDT 03/22/2024 9:48 PM CDT Ernie Baldwin MD LAB BLOOD ORDERABLES Final Res ult Performing Organization Address [facility] Co de Phone Number ORI STODDARD [address] [address] [place] [address] * Lactate (03/22/2024 9:47 PM CDT) Lactate 0.9 0.7 - 2.0 mmol/L Blood 03/22/2024 9:47 PM CDT 03/22/2024 9:48 PM CDT Ernie Baldwin MD LAB BLOOD ORDERABLES Final Res ult Performing Organization Address [facility] de Phone Number ORI STODDARD [address] [address] [place] [address] * (ABNORMAL) CBC without differential (03/22/2024 9:47 PM CDT) WBC 12.8(H) 3.8 - 9.9 K/cumm Hgb 9.3(L) 13.0 - 17.5 g/dL [facility] Hct 26.4(L) 38.9 - 50.3 % [facility] Plt 101(L) 150 - 400 K/cumm [facility] MPV 10.0 9.1 - 12.3 fL [facility] RBC 3.04(L) 4.30 - 5.80 M/cumm [facility] MCV 86.8 81.3 - 96.4 fL [facility] MCH 30.6 27.1 - 33.3 pg [facility] MCHC 35.2 32.3 - 35.7 g/dL [facility] RDW CV 13.5 11.1 - 14.9 % [facility] RDW SD 42.7 35.7 - 48.1 fL [facility] NRBC abs 0.00 0.00 - 0.01 K/cumm [facility] Blood 03/22/2024 9:47 PM CDT 03/22/2024 9:49 PM CDT Ernie Baldwin MD LAB BLOOD ORDERABLES Final Res ult Performing Organization Address [facility] Co de Phone Number ORI STODDARD [address] [address] [facility] [place] [address] * Magnesium (03/22/2024 9:47 PM CDT) Magnesium 2.2 1.4 - 2.5 mg/dL Blood 03/22/2024 9:47 PM CDT 03/22/2024 9:49 PM CDT Ernie Baldwin MD LAB BLOOD ORDERABLES Final Res ult Performing Organization Address [facility] de Phone Number ORI [address] [address] [place] [address] * (ABNORMAL) Basic metabolic panel (03/22/2024 9:47 PM CDT) Sodium 145 135 - 145 mmol/L Potassium, pl 4.6 3.3 - 4.9 mmol/L [facility] Chloride 114(H) 97 - 110 mmol/L [facility] CO2 22 22 - 32 mmol/L [facility] Anion gap 9 2 - 15 mmol/L [facility] BUN 15 6 - 25 mg/dL [facility] Creatinine 0.85 0.80 - 1.30 mg/dL [facility] Glucose 143 70 - 199 mg/dL [facility] Comment: Interpretive Data Fasting glucose >/= [...] ORDERABLES Final Res ult Performing Organization Address [facility] Co de Phone [facility] [address] [address] [facility] [place] [address] * Transfuse RBC (03/22/2024 9:21 PM CDT) Blood Ernie Baldwin MD BLOOD TRANSFUSION ORDERABLES F inal Result Performing Organization Address [facility] Phone Number ORI [address] [address] [facility] [place] [address] * Transfuse RBC: 1 Units (03/22/2024 9:21 PM CDT) Blood Ernie Baldwin MD BLOOD TRANSFUSION ORDERABLES F inal Result * POCT glucose (03/22/2024 9:11 PM CDT) Glucose, POC 165 70 - 199 mg/dL Blood 03/22/2024 9:11 PM CDT 03/22/2024 9:11 PM CDT Ernie Baldwin MD LAB POCT ORDERABLES - DEVICE F inal Result Performing Organization Address [facility] de Phone Number [facility] [address] [address] [facility] [place] [address] * Transfuse plasma Standard plasma (03/22/2024 8:59 PM CDT) Blood Ernie Baldwin MD BLOOD TRANSFUSION ORDERABLES F inal Result Performing Organization Address [facility] Co de Phone Number ORI [address] [address] [facility] [place] [address] * Transfuse plasma: 1 Units Standard plasma (03/22/2024 8:59 PM CDT) Blood Ernie Baldwin MD BLOOD TRANSFUSION ORDERABLES F inal Result * POCT glucose (03/22/2024 8:04 PM CDT) [facility] Signature Glucose, POC 171 70 - 199 mg/dL Blood 03/22/2024 8:04 PM CDT 03/22/2024 8:04 PM CDT Ernie Baldwin MD LAB POCT ORDERABLES - DEVICE F inal Result Performing Organization Address [facility] Co de Phone Number ORI [address] [place] [address] * Transfuse RBC (03/22/2024 7:36 PM CDT) Blood Ernie Baldwin MD BLOOD TRANSFUSION ORDERABLES F inal Result Performing Organization Address [facility] Co de Phone Number ORI [address] [place] [address] * Transfuse RBC: 1 Units (03/22/2024 7:36 PM CDT) Blood Ernie Baldwin MD BLOOD TRANSFUSION ORDERABLES F inal Result * Transfuse cryoprecipitate (pooled units) (03/22/2024 7:00 PM CDT) Blood Ernie Baldwin MD BLOOD TRANSFUSION ORDERABLES F inal Result Performing Organization Address City/[facility]/ZIP Co de Phone Number BANDARRIO [address] [address] [place] [address] * Transfuse cryoprecipitate (pooled units): 2 Units (03/22/2024 7:00 PM CDT) Blood Ernie Baldwin MD BLOOD TRANSFUSION ORDERABLES F inal Result * POCT glucose (03/22/2024 6:49 PM CDT) Glucose, POC 169 70 - 199 mg/dL Blood 03/22/2024 6:49 PM CDT 03/22/2024 6:49 PM CDT Ernie Baldwin MD LAB POCT ORDERABLES - DEVICE F inal Result Performing Organization Address [facility] Co de Phone Number [facility] [address] [address] [facility] [place] [address] * Transfuse cryoprecipitate (pooled units) (03/22/2024 6:46 PM CDT) Blood Ernie Baldwin MD BLOOD TRANSFUSION ORDERABLES F inal Result Performing Organization Address [facility] Co de Phone Number ORI [address] [address] [facility] [place] [address] * POCT glucose (03/22/2024 6:01 PM CDT) Glucose, POC 151 70 - 199 mg/dL Blood 03/22/2024 6:01 PM CDT 03/22/2024 6:01 PM CDT Ernie Baldwin MD LAB POCT ORDERABLES - DEVICE F inal Result Performing Organization Address [facility] Co de Phone Number [facility] [address] [address] [facility] [place] [address] * Prepare cryoprecipitate (pooled units): 2 Units (03/22/2024 5:40 PM CDT) Product code [id number] CERNER CH Unit Number [id number] [facility] Product Blood Type APOS [facility] Dispense Status PRESUMED TRANSFUSED [facility] Product code [id number] Unit Number [id number] [facility] Product Blood Type APOS [facility] CH Dispense Status PRESUMED TRANSFUSED [facility] Blood (Blood, Venous) 03/22/2024 5:40 PM CDT Narrative [facility] CH - 03/22/2024 10:15 PM CDT Cryo # of [id number] Reasons:-Fibrinogen <= 150 mg/dL AND active hemorrhage} Ernie Baldwin MD BLOOD BANK PRODUCT ORDERABLES Final Result Performing Organization Address [facility] de Phone Number ORI STODDARD [address] [place] [place] [address] * (ABNORMAL) Blood gas, arterial (03/22/2024 5:35 PM CDT) Pathologist [facility] pH, Art 7.37 7.35 - 7.45 PCO2, [...] ORDERABLES Final Res ult Performing Organization Address [facility] Co de Phone Number ORI [address] [address] [facility] [place] [employer] [place] [address] * (ABNORMAL) CBC without differential (03/22/2024 5:35 PM CDT) Pathologist [facility] WBC 16.1(H) 3.8 - 9.9 K/cumm Hgb 8.0(L) 13.0 - 17.5 g/dL [facility] Hct 23.1(L) 38.9 - 50.3 % [facility] Plt 124(L) 150 - 400 K/cumm [facility] MPV 9.7 9.1 - 12.3 fL [facility] RBC 2.66(L) 4.30 - 5.80 M/cumm [facility] MCV 86.8 81.3 - 96.4 fL [facility] MCH 30.1 27.1 - 33.3 pg [facility] MCHC 34.6 32.3 - 35.7 g/dL [facility] RDW CV 13.8 11.1 - 14.9 % [facility] RDW SD 43.4 35.7 - 48.1 fL [facility] NRBC abs 0.00 0.00 - 0.01 K/cumm [facility] Blood 03/22/2024 5:35 PM CDT 03/22/2024 5:38 PM CDT Ernie Baldwin MD LAB BLOOD ORDERABLES Final Res ult Performing Organization Address [facility]/ZIP Co de Phone Number BANDARRIO STODDARD [address] [facility] [place] [place] [address] * POCT glucose (03/22/2024 4:40 PM CDT) Pathologist [facility] Glucose, POC 137 70 - 199 mg/dL Blood 03/22/2024 4:40 PM CDT 03/22/2024 4:40 PM CDT Ernie Baldwin MD LAB POCT ORDERABLES - DEVICE F inal Result Performing Organization Address City/[facility]/ZIP Co de Phone Number ORI STODDARD [address] [address] [facility] [employer] [place], [place] [id number] * eGFR (03/22/2024 3:11 PM CDT) Pathologist [facility] eGFR >90 >=60 mL/min/1. 73 m2 Comment: [...] ORDERABLES Final Res ult Performing Organization Address [facility] de Phone Number [facility] [address] [place] [place] [address] * Magnesium (03/22/2024 3:11 PM CDT) Magnesium 2.4 1.4 - 2.5 mg/dL Blood 03/22/2024 3:11 PM CDT 03/22/2024 3:16 PM CDT Ernie Baldwin MD LAB BLOOD ORDERABLES Final Res ult Performing Organization Address [facility] de Phone Number BANDARRIO [address] [place] [address] * (ABNORMAL) Fibrinogen (03/22/2024 3:11 PM CDT) Fibrinogen 156(L) 170 - 400 mg/dL Blood 03/22/2024 3:11 PM CDT 03/22/2024 3:17 PM CDT Ernie Baldwin MD LAB BLOOD ORDERABLES Final Res ult Performing Organization Address [facility] Co de Phone Number ORI [address] [address] [facility] [place] [address] * (ABNORMAL) Protime-INR (03/22/2024 3:11 PM CDT) [...] ORDERABLES Final Res ult Performing Organization Address [facility] Co de Phone Number BANDARIRO [address] [address] [facility] [place] [address] * aPTT (03/22/2024 3:11 PM CDT) aPTT [...] ORDERABLES Final Res ult Performing Organization Address [facility] Co de Phone Number ORI STODDARD [address] [address] [place] [address] * (ABNORMAL) Blood gas, arterial (03/22/2024 3:11 [...] Art (Measured) 99(H) 90 - 95 % [facility] Blood 03/22/2024 3:11 PM CDT 03/22/2024 3:16 PM CDT Ernie Baldwin MD LAB BLOOD ORDERABLES Final Res ult Performing Organization Address [facility] Co de Phone Number ORI STODDARD [address] [address] [facility] [place] [address] * Calcium, ionized, whole blood (03/22/2024 3:11 PM CDT) Ca, ionized, bld 4.64 4.50 - 5.10 mg/dL Blood 03/22/2024 3:11 PM CDT 03/22/2024 3:16 PM CDT Ernie Baldwin MD LAB BLOOD ORDERABLES Final Res ult Performing Organization Address [facility] Co de Phone Number ORI STODDARD [address] [address] [facility] [place] [address] * (ABNORMAL) Basic metabolic panel (03/22/2024 3:11 [...] affected. Glucose 137 70 - 199 mg/dL [facility] Comment: Interpretive Data Fasting glucose >/= [...] 2022. Calcium 7.8(L) 8.5 - 10.3 mg/dL [facility] Blood 03/22/2024 3:11 PM CDT 03/22/2024 3:16 PM CDT us Ernie Baldwin MD LAB BLOOD ORDERABLES Final Res ult [facility] [address] [place] [address] * (ABNORMAL) CBC without differential (03/22/2024 3:11 PM CDT) WBC 14.0(H) 3.8 - 9.9 K/cumm Hgb 10.2(L) 13.0 - 17.5 g/dL CERNER Hct 28.5(L) 38.9 - 50.3 % CERNER Plt 121(L) 150 - 400 K/cumm [facility] MPV 9.7 9.1 - 12.3 fL [facility] RBC 3.33(L) 4.30 - 5.80 M/cumm [facility] MCV 85.6 81.3 - 96.4 fL [facility] MCH 30.6 27.1 - 33.3 pg [facility] MCHC 35.8(H) 32.3 - 35.7 g/dL [facility] RDW CV 13.6 11.1 - 14.9 % [facility] RDW SD 42.4 35.7 - 48.1 fL [facility] NRBC abs 0.00 0.00 - 0.01 K/cumm [facility] Blood 03/22/2024 3:11 PM CDT 03/22/2024 3:17 PM CDT Ernie Baldwin MD LAB BLOOD ORDERABLES Final Res ult Performing Organization Address [facility] Co de Phone Number BANDARRIO STODDARD [address] [place] [address] * POCT glucose (03/22/2024 2:03 PM CDT) [facility] Glucose, POC 114 70 - 199 mg/dL Blood 03/22/2024 2:03 PM CDT 03/22/2024 2:03 PM CDT Ernie Baldwin MD LAB POCT ORDERABLES - DEVICE F inal Result Performing Organization Address [facility] Co de Phone Number BANDARRIO [address] [facility] [employer] [place], [place] [id number] * Transfuse platelets (03/22/2024 1:07 PM CDT) Blood Ernie Baldwin MD BLOOD TRANSFUSION ORDERABLES F inal Result Performing Organization Address [facility] Co de Phone Number ORI STODDARD [address] [address] [employer] [place], [place] [phone] * Transfuse platelets: 1 Units (03/22/2024 1:07 PM CDT) Blood Ernie Baldwin MD BLOOD TRANSFUSION ORDERABLES F inal Result * POCT glucose (03/22/2024 1:00 PM CDT) Glucose, POC 119 70 - 199 mg/dL Blood 03/22/2024 1:00 PM CDT 03/22/2024 1:00 PM CDT Ernie Baldwin MD LAB POCT ORDERABLES - DEVICE F inal Result ORI [address] [address] [place] [address] * XR Chest 1 View (03/22/2024 12:48 [...] in good position. ??The tip of a Ragland-Stevie catheter is in the undivided main pulmonary [...] in good position. The tip of a Ragland-Stevie catheter is in the undivided main pulmonary artery. Borderline cardiomegaly with aortic atherosclerosis. No failure. Subsegmental atelectasis is seen in the lower half of the right lung with the remainder of the lungs being clear. IMPRESSION: Findings as described above. Electronically signed by: Hamzah Mackey M.D. Ernie Baldwin MD IMG XR PROCEDURES Final Result * eGFR (03/22/2024 12:31 PM CDT) Pathologist [facility] eGFR >90 >=60 mL/min/1. 73 m2 Comment: [...] BLOOD ORDERABLES Final Res ult ORI STODDARD [address] [address] [facility] [place] [address] * (ABNORMAL) Magnesium (03/22/2024 12:31 PM CDT) Magnesium 2.7(H) 1.4 - 2.5 mg/dL Blood 03/22/2024 12:3 1 PM CDT 03/22/2024 12:36 PM CDT Ernie Baldwin MD LAB BLOOD ORDERABLES Final Res ult Performing Organization Address [facility] de Phone Number ORI STODDARD [address] [address] [facility] [place] [address] * aPTT (03/22/2024 12:31 PM CDT) aPTT [...] ORDERABLES Final Res ult Performing Organization Address [facility] de Phone Number ORI STODDARD [address] [address] [facility] [place] [address] * (ABNORMAL) Protime-INR (03/22/2024 12:31 PM CDT) [...] BLOOD ORDERABLES Final Res ult ORI STODDARD [address] [place] [place] [address] * (ABNORMAL) CBC without differential (03/22/2024 12:31 PM CDT) WBC 10.8(H) 3.8 - 9.9 K/cumm Hgb 11.8(L) 13.0 - 17.5 g/dL [facility] Hct 33.2(L) 38.9 - 50.3 % [facility] Plt 85(L) 150 - 400 K/cumm [facility] MPV 9.5 9.1 - 12.3 fL [facility] RBC 3.88(L) 4.30 - 5.80 M/cumm [facility] MCV 85.6 81.3 - 96.4 fL [facility] MCH 30.4 27.1 - 33.3 pg [facility] MCHC 35.5 32.3 - 35.7 g/dL [facility] RDW CV 13.5 11.1 - 14.9 % [facility] RDW SD 41.8 35.7 - 48.1 fL [facility] NRBC abs 0.00 0.00 - 0.01 K/cumm [facility] Blood 03/22/2024 12:3 1 PM CDT 03/22/2024 12:36 PM CDT Ernie Baldwin MD LAB BLOOD ORDERABLES Final Res ult Performing Organization Address City/[facility]/ZIP Co de Phone Number ORI STODDARD [address] [address] [employer] [place], [place] [id number] * (ABNORMAL) Blood gas, arterial (03/22/2024 12:31 [...] MD LAB BLOOD ORDERABLES Final Res ult [facility] [address] [address] [place] [address] * (ABNORMAL) Basic metabolic panel (03/22/2024 12:31 PM CDT) Pathologist [facility] Sodium 141 135 - 145 mmol/L Potassium, pl 4.7 3.3 - 4.9 mmol/L CERNER Chloride 109 97 - 110 mmol/L [facility] CO2 23 22 - 32 mmol/L [facility] Anion gap 9 2 - 15 mmol/L [facility] BUN 12 6 - 25 mg/dL [facility] Creatinine 0.77(L) 0.80 - 1.30 mg/dL [facility] Glucose 134 70 - 199 mg/dL [facility] Comment: Interpretive Data Fasting glucose >/= 126 [...] 2022. Calcium 8.1(L) 8.5 - 10.3 mg/dL [facility] Blood 03/22/2024 12:3 1 PM CDT 03/22/2024 12:36 PM CDT Ernie Baldwin MD LAB BLOOD ORDERABLES Final Res ult Performing Organization Address [facility] Co de Phone Number ORI STODDARD [address] [address] [facility] [place] [address] * POCT glucose (03/22/2024 12:30 PM CDT) Glucose, POC 120 70 - 199 mg/dL Blood 03/22/2024 12:3 0 PM CDT 03/22/2024 12:30 PM CDT Ernie Baldwin MD LAB POCT ORDERABLES - DEVICE F inal Result Performing Organization Address [facility] de Phone Number BANDARRIO STODDARD [address] [address] [place] [address] * Calcium, ionized, whole blood (03/22/2024 12:30 PM CDT) Ca, ionized, bld 4.74 4.50 - 5.10 mg/dL Blood 03/22/2024 12:3 0 PM CDT 03/22/2024 1:00 PM CDT Ernie Baldwin MD LAB BLOOD ORDERABLES Final Res ult Performing Organization Address [facility] Co de Phone Number ORI STODDARD [address] [address] [facility] [place] [address] * (ABNORMAL) POC Blood Gas and Chemistries, [...] ORDERABLES - DEVICE F inal Result ORI [address] [facility] [place] [place] [address] * Critical Care (03/22/2024 11:16 AM CDT) [...] plan with the ICU team and other medical/performance management consultant staff, making frequent assessments and decisions [...] High Range (03/22/2024 11:15 AM CDT) Pathologist [facility] ACT 104 87 - 138 sec Blood 03/22/2024 11:1 5 AM CDT 03/22/2024 11:15 AM CDT Ernie Baldwin MD LAB BLOOD ORDERABLES Final Res ult [facility] [address] [address] [place] [address] * (ABNORMAL) POC Blood Gas and Chemistries, Arterial - (03/22/2024 10:38 AM CDT) Pathologist [facility] pH, Art POC 7.33(L) 7.35 - 7.45 [...] DEVICE F inal Result Performing Organization Address City/State/[facility] Co de Phone Number [address] [place] [address] * Surgical pathology (03/22/2024 10:38 AM CDT) Tissue (Heart Valve) 03/22/2024 9:41 AM CDT Narrative PATHOLOGY CH - 03/25/2024 1:40 PM CDT EPIC results best viewed via link to PDF [facility] Department of Pathology [address] [place], [place] [id number] Note to Patients: This report may contain [...] Final Report Patient Name: ??STEPHAN MADDENFer Address: ??[address] [place] [address], ??[place], [place] ??[address] Gender: ??M : ??1965 (Age: 58) Service: ??Cardiothoracic Location: ?? [facility] Hospital #: ??[id number] Patient Type: [facility] Accession # ?[id number] Taken: ??03/22/2024 Received: ??03/23/2024 Accessioned: ??03/23/2024 Reported: ??03/25/2024 Physician(s):Jazmine Roche M.D. Diagnosis: Heart valve, aortic valve, aortic valve replacement: ? - Dystrophic calcification, nodular fibrosis and myxoid degeneration, clinically aortic valve stenosis. Candy Price M.D. Report Electronically Reviewed and Signed Out By ??Candy rGay M.D. ??03/25/2024 13:40:34 Specimen(s) Received: A: Aortic [...] determined by the Surgical Pathology Department at [facility] as part of an ongoing assistant manager quality management program and in compliance with federally mandated [...] characteristics determined by the Surgical Pathology Department [facility]. ??It has not been cleared or approved by the U. S. Food and Drug Administration. Note for decalcified specimens: This assay has not been validated on decalcified tissues. Results should be interpreted with caution given the possibility of false negativity on decalcified specimens Ernie Baldwin MD LAB PATHOLOGY ORDERABLES Final Result Performing Organization Address City/[facility]/ZIP Co de Phone Number PATHOLOGY [address] [place] [address] * (ABNORMAL) POC Activated Clotting Time, High Range (03/22/2024 10:36 AM CDT) ACT 546(H) 87 - 138 sec Blood 03/22/2024 10:3 6 AM CDT 03/22/2024 10:36 AM CDT Ernie Baldwin MD LAB BLOOD ORDERABLES Final Res ult Performing Organization Address [facility] Co de Phone Number CERNER [address] [address] [place] [address] * (ABNORMAL) POC Blood Gas and Chemistries, [...] DEVICE F inal Result Performing Organization Address [facility] Co de Phone Number ORI RICHI [address] [place] [place] [address] * (ABNORMAL) POC Activated Clotting Time, High Range (03/22/2024 10:10 AM CDT) ACT 672(H) 87 - 138 sec Blood 03/22/2024 10:1 0 AM CDT 03/22/2024 10:10 AM CDT Ernie Baldwin MD LAB BLOOD ORDERABLES Final Res ult Performing Organization Address [facility]/ZIP Co de Phone Number BANDARRIO STODDARD [address] [address] Department [employer] [place], [place] [phone] * (ABNORMAL) Platelet count (03/22/2024 10:10 AM CDT) Plt 100(L) 150 - 400 K/cumm Blood 03/22/2024 10:1 0 AM CDT 03/22/2024 10:14 AM CDT Ernie Baldwin MD LAB BLOOD ORDERABLES Final Res ult ORI STODDARD [address] [address] [place] [address] * (ABNORMAL) POC Blood Gas and Chemistries, [...] DEVICE F inal Result Performing Organization Address City/[facility]/ZIP Co de Phone Number ORI STODDARD [address] [address] [facility] [place] [address] * (ABNORMAL) POC Activated Clotting Time, High Range (03/22/2024 9:34 AM CDT) ACT 805(H) 87 - 138 sec Blood 03/22/2024 9:34 AM CDT 03/22/2024 9:34 AM CDT Ernie Baldwin MD LAB BLOOD ORDERABLES Final Res ult Performing Organization Address [facility] Co de Phone Number ORI STODDARD [address] [address] [facility] [place] [address] * (ABNORMAL) POC Activated Clotting Time, High Range (03/22/2024 9:02 AM CDT) ACT 918(H) 87 - 138 sec Blood 03/22/2024 9:02 AM CDT 03/22/2024 9:02 AM CDT Ernie Baldwin MD LAB BLOOD ORDERABLES Final Res ult Performing Organization Address [facility] Co de Phone Number ORI STODDARD [address] [address] [facility] [place] [address] * (ABNORMAL) POC Blood Gas and Chemistries, Arterial - (03/22/2024 8:38 AM CDT) Pathologist [facility] pH, Art POC 7.42 7.35 - 7.45 [...] DEVICE F inal Result Performing Organization Address [facility]/ZIP Co de Phone Number ORI [address] [place] [address] * POC Activated Clotting Time, High Range (03/22/2024 8:36 AM CDT) ACT 98 87 - 138 sec Blood 03/22/2024 8:36 AM CDT 03/22/2024 8:36 AM CDT Ernie Baldwin MD LAB BLOOD ORDERABLES Final Res ult Performing Organization Address [facility]/ZIP Co de Phone Number [facility] [address] [place] [address] * Protime-INR (03/22/2024 6:46 AM CDT) PT 12.3 9.7 - 13.0 sec INR 1.14 0.90 - 1.20 [facility] Comment: Interpretive data Oral anticoagulant therapeutic ranges: Venous thromboembolism prophylaxis or treatment: 2.0-3.0 CARDIOLOGY Standard range: 2.0-3.0 High-intensity range: 2.5-3.5 Refer to indication-specific guidelines for appropriate target ranges for prosthetic heart valve replacement. Current interpretive data was last revised on 2019. Blood 03/22/2024 6:46 AM CDT 03/22/2024 6:46 AM CDT Ranjit Fernández [employer] LAB BLOOD ORDERABLES Final Result Performing Organization Address [facility] Co de Phone Number ORI [address] [address] [place] [address] * Type and screen (03/22/2024 6:24 AM CDT) ABO Rh B Positive Beatriz, indirect Negative [facility] Blood 03/22/2024 6:24 AM CDT 03/22/2024 6:46 AM CDT Narrative [facility] - 03/22/2024 7:26 AM CDT Has the patient had Daratumumab or Isatuximab in the past 6 months?->Unknown Re Hicks [employer] LAB BLOOD BANK TEST ORDER DINORA Final Result Performing Organization Address [facility] de Phone Number ORI STODDARD [address] [place] [address] * Prepare plasma: 2 Units Standard plasma (03/22/2024 6:00 AM CDT) Product code [id number] Unit Number [id number] [facility] Product Blood Type BPOS [facility] Dispense Status PRESUMED TRANSFUSED [facility] Blood (Blood, Venous) 03/22/2024 6:00 AM CDT Narrative [facility] - 03/22/2024 10:15 PM CDT Specify Procedure:->AVR Is this plasma order intended for a COVID-19 patient as convalescent plasma?->Standard plasma Special Requirements Needed?->No Date required:-[id number] FFP # of Units:-2-Units Reasons:-Hold for procedure (specify procedure)} Re Hicks [employer] BLOOD BANK PRODUCT ORDERA BLES Final Result Performing Organization Address [facility] [facility] de Phone Number ORI STODDARD [address] [facility] [employer] [place], [place] [id number] * Prepare platelets: 2 Units (03/22/2024 6:00 AM CDT) Product code [id number] Unit Number [id number] CERNER CH Product Blood Type OPOS CERNER CH Dispense Status PRESUMED TRANSFUSED CERNER CH Blood (Blood, Venous) 03/22/2024 6:00 AM CDT Narrative CERNER CH - 03/22/2024 10:15 PM CDT Specify Procedure:->AVR Are special requirements needed? (all products are leukoreduced)->No Date required:-20240322 PLT # of Units:-2-Units Reasons:-Hold for procedure (specify procedure)} us Re Hicks MOSAIC TILE MAKER BLOOD BANK PRODUCT ORDERA BLES Final Result Performing Organization Address [facility] Co de Phone Number ORI STODDARD [address] [place] [address] * Prepare RBC: 4 Units (03/22/2024 6:00 AM CDT) Product code [id number] CERNER CH Unit Number [id number] CERNER CH Product Blood Type BPOS CERNER CH Dispense Status PRESUMED TRANSFUSED CERNER CH Product code [id number] Unit Number [id number] CERNER CH Product Blood Type BPOS CERNER CH Dispense Status PRESUMED TRANSFUSED CERNER CH Product code K0611I22 CERNER CH Unit Number [id number] CERNER CH Product Blood Type BPOS CERNER CH Dispense Status RETURNED CERNER CH Product code [id number] CERNER CH Unit Number [id number] CERNER CH Product Blood Type BPOS CERNER CH Dispense Status PRESUMED TRANSFUSED CERNER CH Blood 03/22/2024 6:00 AM CDT Narrative CERNER CH - 03/26/2024 12:05 AM CDT Specify Procedure:->AVR Are special requirements needed? (All products are leukoreduced and CMV- safe)- >No Date required:-20240322 LRRBC # of Oeqok-[id number] Reasons:-Hold for procedure (specify procedure)} us Re Hicks NP BLOOD BANK PRODUCT ORDERA BLES Final Result ORI STODDARD [address] [place] [address] documented in this encounter Visit [...] mg 2.5 mg, nebulization, Every 6 hours (residential therapist), First dose on Thu03/22/24 at 1500, Indications: [...] (CANCELED) 2.5 mg, nebulization, Every 6 hours (residential therapist), First dose on Thu03/22/24 at 1500, Indications: [...] Brayan Dyer) 0826 (Given - Provider: Brayan yDer) 0819 (Given - Provider: Christo Zendejas, KATHERIN) [...] Provider: Brayan Dyer)2043 (Given - Provider: Ayad oRwe RN) 08 (Given - Provider: Christo Zendejas, [...] 03/22/2024 documented in this encounter Care Teams Machine I Trimmer Relationship Specialty Start Date End Date Carolyn Davis MD [address] [place] [address] PCP - General 10/31/15 Ernie Baldwin MD [address] [place] [address] Surgeon Cardiothoracic Surgery 03/29/24 Tom De Jesus MD [address] [facility] [address] [place] [address] Consulting Physician Cardiology 03/29/24 documented as of this encounter
--- OUTSIDE RECORDS SUMMARY | 2024-07-19 22:19 | XMS_ITS | Encounter Summary ---
Author Organization [facility] Healthcare Address [address] [place] [address] Care Team Providers Care Global Compensation Manager Name Role Phone Carolyn Davis MD Primary Care Provider Ernie Baldwin MD Unavailable [phone] Tom De Jesus MD Unavailable Encounter Details Date Type Department Care Team (Latest Contact Info) Description 03/29/2024 Telephone Cardiology Jolanta Quintero DO [id number] [address] Social History Tobacco Use Types [...] How often do you attend chur or hinduism services? Never 03/24/2024 Do you belong to any clubs o r organizations such as hoahaoism groups, unions, fraternal or athletic groups, or [...] on file Legal Sex Male 1:59 AM CRNP Gender Identity Not on file Sexual Orientation Not on file documented as of this encounter Miscellaneous Notes * Telephone Encounter - Lu Rhoades RN - 03/30/2024 8:02 AM CDT Will forward to the front maker lockstitch for assistance with scheduling. Thank you! * [...] on filedocumented in this encounter Care Teams Global Compensation Manager Relationship Specialty Start Date End Date Carolyn Davis MD [address] [facility] [address] [place] [address] PCP - General 10/31/15 Ernie Baldwin MD [address] [place] [address] Surgeon Cardiothoracic Surgery 03/29/24 Tom De Jesus MD [address] [facility] [address] [place] [address] Consulting Physician Cardiology 03/29/24 documented as of this encounter
--- OUTSIDE RECORDS SUMMARY | 2024-07-19 22:20 | XMS_ITS | Encounter Summary ---
Author Organization [facility] Healthcare Address [address] [place] [address] Care Team Providers Care Optical Mechanic Name Role Phone Carolyn Davis MD Primary Care Provider Encounter Details Date Type Department Care Team (Latest Contact Info) Description 03/18/2024 10:45 AM CDT Pre-Admission Testing [facility] Pre Anesthesia Testing [address] [place], [place] [id number] Aortic valve stenosis, etiology of cardiac valve [...] last week and was fixed temporarily. 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 * Perioperative Nursing Note - Kiki Patel RN - 03/18/2024 1:07 PM CDT Abnormal pre-op UA w/reflex, CBC, BMP, and PT routed to PCP, Dr Baldwin, and CTS digital music instructor. EPIC IM sent to Dr Baldwin and CTS digital music instructor. * Perioperative Nursing Note - Kiki Patel RN - 03/18/2024 10:45 AM CDT Medical Record request faxed to [facility]. * Perioperative Nursing Note - Kiki Patel RN - 03/18/2024 10:45 AM CDT Call from patient re: incorrect dose on Rosuvastatin. Med corrected in chart. * Pre-Procedure Instructions - Kiki Patel RN - 03/18/2024 10:45 AM CDT We are pleased that you and your doctor have chosen [facility] for your surgery. We hope [...] XR (SEROquel XR) Use no make-up, nail romansh, lotions, oils or powders on your skin. [...] your Pre-Admission Testing, please call Kiki at [phone]. * Addendum Note - Kiki Patel RN - 03/18/2024 10:45 AM CDTAddended by: [...] LAB BLOOD ORDERABLES Final Res ult [facility] [address] Department [place] [address] * (ABNORMAL) Basic metabolic panel (03/18/2024 12:29 PM CDT) Sodium 140 135 - 145 mmol/L Potassium, pl 3.9 3.3 - 4.9 mmol/L [facility] Chloride 105 97 - 110 mmol/L [facility] CO2 26 22 - 32 mmol/L [facility] Anion gap 9 2 - 15 mmol/L [facility] BUN 6 6 - 25 mg/dL [facility] Creatinine 0.65(L) 0.80 - 1.30 mg/dL [facility] Glucose 103 70 - 199 mg/dL [facility] Comment: Interpretive Data Fasting glucose [...] ORDERABLES Final Res ult Performing Organization Address [facility] Co de Phone Number ORI [address] [place] [address] * (ABNORMAL) Protime-INR (03/18/2024 12:29 [...] ORDERABLES Final Res ult Performing Organization Address [facility] Co de Phone Number ORI [address] [place] [address] * aPTT (03/18/2024 12:29 PM [...] ORDERABLES Final Res ult Performing Organization Address [facility]/ZIP Co de Phone Number ORI STODDARD [address] [place] [address] * (ABNORMAL) CBC without differential (03/18/2024 12:29 PM CDT) [facility] WBC 7.2 3.8 - 9.9 K/cumm Hgb 13.6 13.0 - 17.5 g/dL [facility] Hct 39.3 38.9 - 50.3 % [facility] Plt 140(L) 150 - 400 K/cumm [facility] Comment:No clot detected in sample. MPV 10.0 9.1 - 12.3 fL [facility] RBC 4.54 4.30 - 5.80 M/cumm [facility] MCV 86.6 81.3 - 96.4 fL [facility] MCH 30.0 27.1 - 33.3 pg [facility] MCHC 34.6 32.3 - 35.7 g/dL [facility] RDW CV 13.3 11.1 - 14.9 % [facility] RDW SD 42.1 35.7 - 48.1 fL [facility] NRBC abs 0.00 0.00 - 0.01 K/cumm [facility] Blood 03/18/2024 12:2 9 PM CDT 03/18/2024 12:29 PM CDT Ernie Baldwin MD LAB BLOOD ORDERABLES Final Res ult Performing Organization Address [facility]/ZIP Co de Phone Number ORI STODDARD [address] [employer] [place], [place] [phone] * Type and screen (03/18/2024 12:16 PM CDT) Beatriz, indirect Negative ABO Rh B Positive CERNER CH Blood 03/18/2024 12:1 6 PM CDT 03/18/2024 12:47 PM CDT Narrative CERNER CH - 03/18/2024 1:37 PM CDT Has the patient had Daratumumab or Isatuximab in the past 6 months?->Unknown Ernie Baldwin MD LAB BLOOD BANK TEST ORDERABLES Final Result ORI [address] Department [place] [address] * (ABNORMAL) Urinalysis reflex to [...] tendency for uric acid stone formation. Source: [facility] Current Interpretive Data was last revised [...] ORD ERABLES Final Result Performing Organization Address City/[facility]/[place] [address] [address] Department [place] [address] * ECG 12 lead (03/18/2024 11:50 AM CDT) 03/18/2024 11:5 0 AM CDT Narrative [facility] - 03/19/2024 12:01 AM CDT Vent Rate: 49 bpm RR Interval: 1215 msec IN Interval: 185 msec QRS Duration: 106 msec QT Interval: 433 msec QTC Interval: 403 msec P-R-T [place]: 72 - 56 - 60 degrees IMPRESSION: SINUS BRADYCARDIA BORDERLINE ECG Electronically Signed By: Dr. Deedee Dejesus [facility] Ernie Baldwin MD ECG ORDERABLES Final Result Performing Organization Address [facility] de Phone Number [facility] documented in this encounter Visit Diagnoses [...] 03/30/2024 added in this encounter Care Teams Optical Mechanic Relationship Specialty Start Date End Date Carolyn Davis MD [address] [facility] [address] [place] [address] PCP - General 10/31/15 documented as of this encounter
--- OUTSIDE RECORDS SUMMARY | 2024-07-19 22:20 | XMS_ITS | Encounter Summary ---
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
--- OUTSIDE RECORDS SUMMARY | 2024-07-19 22:20 | XMS_ITS | Encounter Summary ---
Author Organization [facility] Healthcare Address [address] [place] [address] Care Team Providers Care Crosscutter Rolled Glass Name Role Phone Carolyn Davis MD Primary Care Provider Reason for Referral * MRI/CAT/PET Scan (Routine) - Closed Specialty Diagnoses / Procedures Referred By Fredoac t Referred To Contact Radiology Diagnoses Nonrheumatic aortic valve stenosis Procedures CT TAVR Ernie Baldwin MD [address] [facility] [place] [address] Phone: tel: fax: [address] [phone] Referral ID Status Reason Start Date Expiration Date Visits Re quested Visits Authorized [id number] Closed 02/23/2024 03/24/2025 1 1 Reason for Visit * MRI/CAT/PET Scan (Routine) - Closed Specialty Diagnoses / Procedures Referred By Contac t Referred To Contact Radiology Diagnoses Nonrheumatic aortic valve stenosis Procedures CT TAVR Ernie Baldwin MD [address] [facility] [address] [place] [address] Phone: tel: fax: [address] [phone] Referral ID Status Reason Start Date Expiration Date Visits Re quested Visits Authorized [id number] Closed 02/23/2024 03/24/2025 1 1 Encounter Details Date Type Department Care Team (Latest Contact Info) Description 03/01/2024 2:54 PM CDT - 03/01/2024 11:59 PM CDT Hospital Encounter [facility] Imaging and Radiology [address] [place] [address] Nonrheumatic aortic valve stenosis Discharge Disposition: Discharge [...] on file Legal Sex Male 1:59 AM CLINICAL NURSE EDUCATOR Gender Identity Not on file Sexual Orientation [...] needed 01/04/2024 enoxaparin (LOVENOX) 80 mg/0.8 mL syringeIndications:Wv chanical Valve Thromboembolism Prophylaxis Inject 0.8 mL [...] 1 documented in this encounter Care Teams Crosscutter Rolled Glass Relationship Specialty Start Date End Date Carolyn Davis MD [address] [facility] [address] [place] [id number] PCP - General 10/31/15 documented as of this encounter
--- OUTSIDE RECORDS SUMMARY | 2024-07-19 22:20 | XMS_ITS | Encounter Summary ---
Author Organization [facility] Healthcare Address [address] [place] [address] Care Team Providers Care Blast Furnace Keeper Helper Name Role Phone Carolyn Davis MD Primary Care Provider Reason for Visit * Auth/Cert Specialty Diagnoses / Procedures Referred By Kary mata Referred To Contact Diagnoses Nonrheumatic aortic valve stenosis Nonrheumatic aortic valve stenosis [I35.0] Procedures LEFT HEART CATHETERIZATION WITH CORONARY ANGIOGRAPHY AND WITH OR WITHOUT LEFT VENTRICULOGRAM 41154 Referral ID Status Reason Start Date Expiration Date Visits Re quested Visits Authorized [id number] 1 1 Encounter Details Date Type Department Care Team (Latest Contact Info) Description 02/23/2024 9:30 AM CDT - 02/23/2024 11:00 AM CDT Surgery [facility] Cardiac Catheterization Lab [address] [place] [address] Tom De Jesus MD [address] [place] [address] LEFT HEART CATHETERIZATION WITH CORONARY ANGIOGRAPHY AND WITH OR WITHOUT LEFT VENTRICULOGRAM 12359 Surgery Details Date/Time Status Location OR Service Patient Class Case Class Case Type Trauma Case? 02/23/2024 9:30 AM Posted CARD[facility] CLINICAL NURSE SPECIALIST CCL 01 Cardiovascular Outpatient Elective Panel 1 Procedure LRB Anes Op Region Wound Class Comments LEFT HEART CATHETERIZATION W ITH CORONARY ANGIOGRAPHY AND WITH OR WITHOUT LEFT VENTRICULOGRAM 43757 N/A Cardiac ULTRASOUND GUIDANCE FOR VASC ULAR ACCESS S&I 76825 N/A Surgeon Surgeon Role Service Panel Tom [...] on file Legal Sex Male 1:59 AM TRANSPLANT RN Gender Identity Not on file Sexual Orientation [...] 1 week or as directed by your sugar refinery supervisor. - No driving for 2 days after [...] remember to ask them during your visits. [facility] TR band documented in this encounter [...] aortic valve. Patient was brought to the slab installer today for preAVR cardiac catheterization Past Medical History: Diagnosis Date Atrial fibrillation (CMS/HCC) ([facility]) Depression Heart murmur HX OTHER MEDICAL Hypertension Nonrheumatic aortic (valve) stenosis Paroxysmal SVT (supraventricular tachycardia) ([facility]) Seizures ([facility]) 1 x 3-4 years ago d/t ETHO [...] Eve Cota MSN, RN, AGPCNP-C Cardiothoracic Surgery [facility] Office: documented in this encounter Miscellaneous Notes [...] that you and your doctor have chosen [facility] for your surgery. We hope that the following information will help make your visit a pleasant one. Surgery Date: 02/23/2024 Arrive at 6:30 A.M. [facility] Surgery [facility] (look for sign reading ???EMERGENCY - SURGERY CENTER?? ) [address] [place] [address] Before your surgery: Notify your doctor of [...] is not recommended by your physician). Fish Oil/[place] 3, Co Q 10, Cod Liver Oil, [...] soap (Example: Dove Antibacterial soap, Gold Dial, Arabic Spring, Zest, Safeguard, Coast) wash your body [...] insurance cards, and medication list (including all [id number] medications) with you. Prescriptions can be filled [...] aortic valve. ??Patient was brought to the slab installer today for pre aortic valve replacement cardiac catheterization. Benefits and risks of the procedure were discussed with the patient in depth, and informed consent was taken prior to the procedure. ??Risks of the procedure include but are not limited to vascular complications like groin hematoma, retroperitoneal bleed, vessel perforation; periprocedural ME, cardiac arrhythmias, stroke, contrast induced nephropathy, and . ?? After discussing all the benefits, risks and alternatives, patient was willing to proceed with the procedure. PROCEDURES PERFORMED: Selective left and right coronary angiogram Ultrasound-guided right radial access (CPT 79863) Moderate sedation-CPT code 20226 MODERATE SEDATION: Midazolam 2 mg , Fentanyl 50 mcg, start time ?0940 stop time ?? 1003, total direct [id number] monitoring of conscious sedation ?23 minutes (CPT 98196) TRAINED OBSERVER: Eve Jeffers RN was trained observer for moderate sedation. ACCESS SITE: ??Right radial artery PROCEDURE: ??After obtaining informed consent, patient was brought to the slab installer and prepped and draped in the usual sterile manner. ??Time-out and immediate reassessment of the patient was performed. ??After local anesthesia with lidocaine, right radial artery access was taken with micropuncture needle followed by insertion of a 6 Swiss sheath over a 0.035 inch wire. ??Selective [...] was used to complete this document, therefore, self propelled hot mix roller operator variances may occur. Tom De Jesus MD, [facility] 02/23/24 Tom De Jesus MD CV CARDIAC [...] (CV) 0940 (Given - Provid er: Galilea Galavn RN)0953 (Given - Provider: Galilea Galvan RN) [...] 02/23/2024 documented in this encounter Care Teams Blast Furnace Keeper Helper Relationship Specialty Start Date End Date Carolyn Davis MD [address] [facility] [address] [place] [address] PCP - General 10/31/15 documented as of this encounter
--- OUTSIDE RECORDS SUMMARY | 2024-07-19 22:20 | XMS_ITS | Encounter Summary ---
Author Organization [facility] Healthcare Address [address] [place] [address] Care Team Providers Care Commercial Lease Administrator Name Role Phone Carolyn Davis MD Primary Care Provider Ernie Baldwin MD Unavailable [phone] Tom De Jesus MD Unavailable Encounter Details Date Type Department Care Team (Late st Contact Info) Description 03/09/2024 Telephone [facility] Medical Group Cardiology [address] [place] [address] Tom De Jesus MD [facility] [address] Social History Tobacco Use Types [...] How often do you attend chur or gnosticist services? Never 03/24/2024 Do you [...] any time in the past 12 m [facility], were you homeless or living in a care home (including now)? No 03/24/2024 Personal Safety Answer Date Recorded Have you ever been in or are you currently in a harmful physical or emotional relationship or is someone making you feel afraid or unsafe? 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 She would like to [...] was told to better explain to pt. Contact:[phone] documented in this encounter Plan of Treatment Not on file documented as of this encounter Visit Diagnoses Not on filedocumented in this encounter Care Teams Commercial Lease Administrator Relationship Specialty Start Date End Date Carolyn Davis MD [address] [place] [address] PCP - General 10/31/15 Ernie Baldwin MD [address] [place] [address] Surgeon Cardiothoracic Surgery 03/29/24 Tom De Jesus MD [address] [facility] [address] [place] [address] Consulting Physician Cardiology 03/29/24 documented as of this encounter
--- OUTSIDE RECORDS SUMMARY | 2024-07-19 22:20 | XMS_ITS | Encounter Summary ---
Author Organization [facility] Healthcare Address [address] [place] [address] Care Team Providers Care Bacteriologist Fishery Name Role Phone Carolyn Davis MD Primary Care Provider Reason for Referral * Procedure (Routine) - Canceled Specialty Diagnoses / Procedures Referred By Kary mata Referred To Contact Cardiology Diagnoses Nonrheumatic aortic valve stenosis Tom De Jesus MD [address] [address] Phone: tel: fax: [facility] Medical [facility] Cardiology [address] [place] [address] Phone: tel: fax: Referral ID Status Reason Start Date Expiration Date Visits Requested Visits Authorized [id number] Canceled Specialty Services Required 01/29/2024 02/27/2025 1 1 Question Answer Please select the performing region: [facility] Medical Group [[id number]] Please select the performing department: [facility] [[id number]] # of visits: 1 Comments PROCEDURE/TEST ORDERED:[facility] LOCATION: [facility] DATE OF SERVICE: 02/22 INSURANCE:[facility] DIAGNOSIS:severe ORDERING PROVIDER:Neal ADDITIONAL DETAILS: Encounter Details Date Type Department Care Team (Late st Contact Info) Description 01/26/2024 Telephone [facility] Medical Group Cardiology [address] [place] [address] Christine Cope, HUY [address] [place] [address] Social History Tobacco Use Types Packs/Day Years [...] on file 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 Scheduled pt for LHC at [facility] on 829. Reviewed instructions and mailed pt a copy as well. Pt would like to go to for his labs-orders sent. * Telephone Encounter - Laura Rhoades RN - 01/28/2024 10:34 AM CDT Called pt and LM on reviewing message from CK and reviewing echo results. Discussed the need to schedule LHC at [facility] with MADELEINE. Requested callback to discuss. * Telephone Encounter - Laura Rhoades RN - 01/27/2024 10:41 AM CDT Called pt and LM on VM reviewing message from CK and reviewing echo results. Discussed the need to schedule LHC at [facility] with DK. Requested callback to discuss. * Telephone Encounter - Laura Rhoades RN - 01/26/2024 2:04 PM CDT Images from the original note were not included. Christine Cope NP [facility] Please see below re: scheduling patient for LHC at [facility] with DK. Thank you. Called pt and LM on VM reviewing message from CK and reviewing echo results. Discussed the need to schedule LHC at [facility] with DK-offered pt date of 03/04 at [...] Primary documented in this encounter Care Teams Bacteriologist Fishery Relationship Specialty Start Date End Date Carolyn Davis MD [address] [place] [address] PCP - General 10/31/15 documented as of this encounter
--- OUTSIDE RECORDS SUMMARY | 2024-07-19 22:20 | XMS_ITS | Encounter Summary ---
Author Organization [facility] Address [address] [facility] [address] [place] [address] Phone Care Team Providers Care Manufacture Specialist Name Role Phone Carolyn Davis MD Primary Care Provider Encounter Details Date Type Department Care Team (Late st Contact Info) Description 02/26/2024 9:00 AM CDT Office Visit [facility] Surgery [address] [facility] [address] [place] [address] Ernie Baldwin MD [address] [facility] [address]12-02 [place] [address] Aortic valve stenosis, etiology of cardiac valve [...] on file Legal Sex Male 1:59 AM 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 [...] to proceed. Maurisio Flower NP Cardiothoracic Surgery [facility] [phone] :59 AM Ernie Baldwin MD [facility] Cardiothoracic Surgery [facility] First Sampler completed with [employer]. First Sampler variances may occur. Cosigned by Ernie Baldwin MD at 02/26/2024 3:14 PM CDT documented in this encounter Plan of Treatment Not on file documented as of this encounter Visit Diagnoses Diagnosis Aortic valve stenosis, etiology of cardiac valve disease unspecified- Primary documented in this encounter Care Teams Manufacture Specialist Relationship Specialty Start Date End Date Carolyn Davis MD [address] [address] PCP - General 10/31/15 documented as of this encounter
--- OUTSIDE RECORDS SUMMARY | 2024-07-19 22:20 | XMS_ITS | Encounter Summary ---
Author Organization [facility] Healthcare Address [address] [place] [address] Care Team Providers Care Tonal Regulator Name Role Phone Carolyn Davis MD Primary Care Provider Reason for Visit * Cardiology (Routine) - Closed Specialty Diagnoses / Procedures Referred By Kary mata Referred To Contact Diagnoses Nonrheumatic aortic valve stenosis Procedures Transthoracic Echo (TTE) Complete W Doppler/CF Rocco Fisher NP [address] [address] Phone: tel: fax: [facility] Medical [facility] Referral ID Status Reason Start Date Expiration Date Visits Re quested Visits Authorized [id number] Closed 01/06/2024 02/04/2025 1 1 Encounter Details Date Type Department Care Team (Latest Contact Info) Description 01/21/2024 3:00 PM CDT Ancillary Procedure [facility] Cardiology [address] [place] [phone] Nonrheumatic aortic valve stenosis Social History Tobacco [...] on file 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 [address], [place] [address] [address] [facility] [address], [place] [address] P:[phone] P:[phone] Echocardiographic Report Patient Name: WYATT NUNEZ A : 1965 Study Date: 01/21/2024 3:13:47 PM Gender: M Tech: Location: [facility] Provider: ROCCO FISHER ?Height(Cm): 180 BSA: [...] FINDINGS: Interpretation Site: Exam was interpreted at [facility]. Left Ventricle: Normal left ventricular [...] regurgitation. Electronically Signed By: Case Cage MD, [facility] 2024-01-21 16:54:09 CDT Procedure Note Case Cage MD - 01/21/2024 [facility] Cardiology [address] [facility] [address] [address] [address] [facility] [address] [address] P:[phone] P:[phone] Echocardiographic Report Patient Name: WYATT NUNEZ A : 1965 Study Date: 01/21/2024 3:13:47 PM Gender: M Tech: Location: [facility] Provider: ROCCO FISHER Height(Cm): 180 BSA: [...] [ 16 - 34 ] cc/m2 AV ZGH859.76 cm LVOT Diam 2.03 [ 1.70 - [...] FINDINGS: Interpretation Site: Exam was interpreted at [facility]. Left Ventricle: Normal left ventricular [...] regurgitation. Electronically Signed By: Case Cage MD, [facility] 2024-01-21 16:54:09 CDT Rocco Fisher NP CV ECHO PROCEDURES Final Res ult documented in this encounter Visit Diagnoses Diagnosis Nonrheumatic aortic valve stenosis documented in this encounter Care Teams Tonal Regulator Relationship Specialty Start Date End Date Carolyn Davis MD [address] [facility] [address] [place] [address] PCP - General 10/31/15 documented as of this encounter
--- OUTSIDE RECORDS SUMMARY | 2024-07-19 22:20 | XMS_ITS | Encounter Summary ---
Author Organization [facility] Healthcare Address [address] [place] [address] Care Team Providers Care Sales Representative Adding Machines Name Role Phone Carolyn Davis MD Primary Care Provider Reason for Visit * Auth/Cert (Routine) Specialty Diagnoses / Procedures Referred By Kary t Referred To Contact Diagnoses Aortic valve stenosis, etiology of cardiac valve disease unspecified Aortic valve stenosis, etiology of cardiac valve disease unspecified [I35.0] Procedures [place] RPLCMT PROST AORTIC VALVE OPEN XCP HOMOGRF/STENT REPLACEMENT AORTIC VALVE, LAMBERTO Referral ID Status Reason Start Date Expiration Date Visits Re quested Visits Authorized [id number] 1 1 Encounter Details Date Type Department Care Team (Late st Contact Info) Description 03/22/2024 7:43 AM CDT Anesthesia Event [facility] Operating Room [address] [place] [address] Sherron Archibald MD [address] [place] [address] [address] [id number] Anesthesia Record Procedure Summary Procedure Name Responsible [...] last week and was fixed temporarily. Called sorter/assay tech and new monitor was brought in, SpO2 [...] Drawn 1020 Quick Note Platelet count is 602 114 0787 Aortic Clamp OFF 1037 Labs Drawn 1057 [...] often do you attend chur ch or latter-day services? 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 Gender Identity Not on file Sexual [...] - patient participated Level of consciousness: arouses senior science consultant Pain score: 2 Pain management: adequate Airway [...] 03/22/2024 8:46 AM CDT Associated Order(s): JAVIER JAVIER Date/time: Staff: Supervising anesthesiologist: Sherron Archibald [...] inferior: normal 16- Apical septal: normal 17- [place]: normal Valves: Aortic Valve: Annulus: normal (23 [...] (ASPIR-81) 81 mg tablet -- 08/08/15 -- oTm De Jesus MD take 1 tablet by [...] Rate: 49 bpm RR Interval: 1215 msec [place] Interval: 185 msec QRS Duration: 106 msec QT Interval: 433 msec QTC Interval: 403 msec P-R-T [place]: 72 - 56 - 60 degrees IMPRESSION: SINUS BRADYCARDIA BORDERLINE ECG Electronically Signed By: Dr. Deedee Dejesus [facility] Specimen Collected: 03/18/24 11:50 Last Resulted: 03/19/24 [...] Audit 03/22/24 0743 2 mg Given Chaudhry, Revere Mag, AA fentaNYL (mcg) Date/Time Rate/Dose/Volume Action Admin User Audit 03/22/24 0804 400 mcg Given Chaudhry, Revere Mag, AA 0846 200 mcg Given Chaudhry, Revere Mag, AA 0848 150 mcg Given Chaudhry, Revere Mag, AA 0853 250 mcg Given Chaudhry, Revere Mag, AA lidocaine syringe 2% (mg) Date/Time Rate/Dose/Volume Action Admin User Audit 03/22/24 0804 60 mg Given Chaudhry, Revere Mag, AA etomidate (mg) Date/Time Rate/Dose/Volume Action Admin User Audit 03/22/24 0804 10 mg Given Chaudhry, Revere Mag, AA rocuronium (mg) Date/Time Rate/Dose/Volume Action Admin User Audit 03/22/24 0804 50 mg Given Chaudhry, Revere Mag, AA 0846 50 mg Given Chaudhry, Revere Mag, AA vancomycin (mg) Date/Time Rate/Dose/Volume Action Admin User Audit 03/22/24 0832 1,250 mg (over 90 min) Given Chaudhry, Revere Mag, AA ceFAZolin (mg) Date/Time Rate/Dose/Volume Action Admin User Audit 03/22/24 0845 2,000 mg Given Chaudhry, Revere Mag, AA tranexamic acid (CYKLOKAPRON) 1,000 mg in sodium chloride 0.9% 100 mL (10 mg/mL) infusion (mg/kg/hr) Dosing weight: 76.4 Date/Time Rate/Dose/Volume Action Admin User Audit 03/22/24 0849 1 mg/kg/hr - 7.64 mL/hr New Bag Chaudhry, Revere Mag, AA heparin 5,000 unit/ml (Units) Date/Time Rate/Dose/Volume Action Admin User Audit 03/22/24 0859 30,000 Units Given Chaudhry, Revere Mag, AA norepinephrine (LEVOPHED) 8,000 mcg in dextrose 5% 250 mL (32 mcg/mL) infusion (mcg/kg/min) Dosing weight: 76.4 Date/Time Rate/Dose/Volume Action Admin User Audit 03/22/24 1032 0.04 mcg/kg/min - 5.73 mL/hr New Bag Chaudhry, Revere Mag, AA 1106 Stopped Chaudhry, Revere Mag, AA protamine (mg) Date/Time Rate/Dose/Volume Action Admin User Audit 03/22/24 1059 210 mg (over 5 min) Given Chaudhry, Revere Mag, AA tranexamic acid (mg) Date/Time Rate/Dose/Volume Action Admin User Audit 03/22/24 0836 1,000 mg (over 10 min) Given Chaudhry, Revere Mag, AA nitroglycerin infusion (mcg) Date/Time Rate/Dose/Volume Action Admin User Audit 03/22/24 0850 25 mcg Given Chaudhry, Revere Mag, AA 0854 50 mcg Given Chaudhry, Revere Mag, AA 0858 50 mcg Given Chaudhry, Revere Mag, AA 0900 50 mcg Given Chaudhry, Revere Mag, AA norepinephrine (mcg) Date/Time Rate/Dose/Volume Action Admin User Audit 03/22/24 0903 8 mcg Given Chaudhry, Revere Mag, AA 0907 8 mcg Given Chaudhry, Revere Mag, AA potassium arrest solution (mEq) Date/Time [...] User Audit 03/22/24 0832 New Bag Chaudhry, Revere Mag, AA Lactated Ringer's (LR) infusion (mL/hr) Dosing weight: 81.6 Date/Time Rate/Dose/Volume Action Admin User Audit 03/22/24 0743 30 mL/hr Rate Verify Chaudhry, Revere Mag, AA electrolyte-A (PLASMA-LYTE) infusion (mL) Date/Time Rate/Dose/Volume Action Admin User Audit 03/22/24 0832 New Bag Chaudhry, Revere Mag, AA Events Date Time Event 03/22/2024 0703 Perfusion Ready 0703 Start data Collection 0706 Ready for Procedure 0739 Patient in Room 0743 Anesthesia Start 0743 Start Data Collection 0759 Quick Note Technical difficulties with SpO2 because monitor on machine is broken-- issue was addressed with anesthesia techs and equipment personnel last week and was fixed temporarily. Called sorter/assay tech and new monitor was brought in, SpO2 [...] Drawn 1020 Quick Note Platelet count is 207 248 4849 Aortic Clamp OFF 1037 Labs Drawn 1057 [...] LINE PLACEMENT Routine 03/22/2024 8:58 AM CDT [place] AN ELECTIVE ENDOTRACHEAL AIRWAY Routine 03/22/2024 8:56 [...] MD ANESTHESIA ORDERABLES Final Resu lt * [place] AN ELECTIVE ENDOTRACHEAL AIRWAY (03/22/2024 8:56 AM [...] inferior: normal 16- Apical septal: normal 17- [place]: normal Valves: Aortic Valve: Annulus: normal (23 [...] mg documented in this encounter Care Teams Sales Representative Adding Machines Relationship Specialty Start Date End Date Carolyn Davis MD [address] [facility] [address] [id number] PCP - General 10/31/15 documented as of this encounter
--- OUTSIDE RECORDS SUMMARY | 2024-07-19 22:20 | XMS_ITS | Encounter Summary ---
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 documented in this encounter Plan of Treatment Not on file documented as of this encounter Visit Diagnoses Not on filedocumented in this encounter Care Teams Distance Education Faculty Liaison Relationship Specialty Start Date End Date Carolyn Davis MD [address] [facility] [address] [place] [id number] PCP - General 10/31/15 documented as of this encounter
--- OUTSIDE RECORDS SUMMARY | 2024-07-19 22:20 | XMS_ITS | Encounter Summary ---
Author Organization [facility] Address [address] [facility] [address] [place] [address] Phone Care Team Providers Care Reel Hooker Name Role Phone Carolyn Davis MD Primary Care Provider Encounter Details Date Type Department Care Team (Late st Contact Info) Description 03/17/2024 2:30 PM CDT Office Visit [facility] Surgery [address] [facility] [address] [place] [address] Ernie Baldwin MD [address] [facility] [address] [place] [address] Aortic valve stenosis, etiology of [...] on file 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 Collections Representative variances may occur. Cosigned by Ernie Baldwin MD at 03/20/2024 5:15 PM CDT documented in this encounter Plan of Treatment Not on file documented as of this encounter Visit Diagnoses Diagnosis Aortic valve stenosis, etiology of cardiac valve disease unspecified- Primary documented in this encounter Care Teams Reel Hooker Relationship Specialty Start Date End Date Carolyn Davis MD [address] [facility] [address] [place] [address] PCP - General 10/31/15 documented as of this encounter
--- OUTSIDE RECORDS SUMMARY | 2024-07-19 22:20 | XMS_ITS | Encounter Summary ---
Author Organization [facility] Healthcare Address [address] [place] [address] Care Team Providers Care Industrial [employer] Teacher Name Role Phone Carolyn Davis MD Primary Care Provider Reason for Referral * MRI/CAT/PET Scan (Routine) - Pending Review Specialty Diagnoses / Procedures Referred By Kary mata Referred To Contact Radiology Diagnoses Diagnosis unknown Procedures Neuro CT Outside Consult Farhana Shine MD [address] [place] [address] Phone: tel: fax: Referral ID Status Reason Start Date Expiration Date V isits Requested Visits Authorized [id number] Pending Review 03/08/2024 04/07/2025 1 1 Reason for Visit * MRI/CAT/PET Scan (Routine) - Pending Review Specialty Diagnoses / Procedures Referred By Kary mata Referred To Contact Radiology Diagnoses Diagnosis unknown Procedures Neuro CT Outside Consult Farhana Shine MD [address] [place] [address] Phone: tel: fax: Referral ID Status Reason Start Date Expiration Date V isits Requested Visits Authorized [id number] Pending Review 03/08/2024 04/07/2025 1 1 Encounter Details Date Type Department Care Team (Latest Contact Info) Description 03/08/2024 6:51 PM CDT - 03/08/2024 11:59 PM CDT Hospital Encounter [facility] Rad[facility] [address] [place] [address] Diagnosis unknown Discharge Disposition: Discharge to home [...] file 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 TYPE OF STUDY: Multiple CT angiography images [...] IMAGING STUDY STUDY INITIALLY PERFORMED: 03/08/2024 at [facility] TYPE OF STUDY: Multiple CT angiography images [...] images may or may not represent the pitka's point source data set and thus may contain [...] unknown documented in this encounter Care Teams Industrial [employer] Teacher Relationship Specialty Start Date End Date Carloyn Davis MD [address] [facility] [address] [place] [address] PCP - General 10/31/15 documented as of this encounter
--- OUTSIDE RECORDS SUMMARY | 2024-07-19 22:20 | XMS_ITS | Encounter Summary ---
Author Organization [facility] Address [address] [place] [address] Phone Care Team Providers Care Senior Chemist Name Role Phone Carolyn Davis MD Primary Care Provider Reason for Referral * MRI/CAT/PET Scan (Routine) - Closed Specialty Diagnoses / Procedures Referred By Contac t Referred To Contact Radiology Diagnoses Nonrheumatic aortic valve stenosis Procedures CT TAVR Ernie Baldwin MD [address] [facility] [address] [place] [address] Phone: tel: fax: [facility] [address] [place] [address] Referral ID Status Reason Start Date Expiration Date Visits Re quested Visits Authorized [id number] Closed 02/23/2024 03/24/2025 1 1 Encounter Details Date Type Department Care Team (Late st Contact Info) Description 02/23/2024 Orders Only [facility] Surgery [address] [facility] [address] [place] [address] Ernie Baldwin MD [address] [facility] [address] [place] [address] Nonrheumatic aortic valve stenosis (Primary [...] on file 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
--- OUTSIDE RECORDS SUMMARY | 2024-07-19 22:20 | XMS_ITS | Encounter Summary ---
Author Organization [facility] Healthcare Address [address] [place] [address] Care Team Providers Care Tie In Hand Name Role Phone Carolyn Davis MD Primary Care Provider Reason for Visit * Auth/Cert (Routine) Specialty Diagnoses / Procedures Referred By Kary t Referred To Contact Diagnoses Aortic valve stenosis, etiology of cardiac valve disease unspecified Aortic valve stenosis, etiology of cardiac valve disease unspecified [I35.0] Procedures CT RPLCMT PROST AORTIC VALVE OPEN XCP HOMOGRF/STENT REPLACEMENT AORTIC VALVE, LAMBERTO Referral ID Status Reason Start Date Expiration Date Visits Re quested Visits Authorized [id number] 1 1 Encounter Details Date Type Department Care Team (Late st Contact Info) Description 03/22/2024 7:30 AM CDT - 03/22/2024 1:00 PM CDT Surgery [facility] Operating Room [address] [place] [address] Ernie Baldwin MD [id number] [place] [address] REPLACEMENT AORTIC VALVE, LAMBERTO Surgery Details Date/Time [...] on file 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 Sternal plating by Dr. [...] okay with lifelong anticoagulation. Hospital Course: Stephan Maddne was taken to the operating room on [...] M/W/F/Sun. Once the patient was medically stable, Stephna Madden was discharged to Home. Post Op [...] 01/18/2025 2:00 PM Tom De Jesus MD [facility] CAR MRVL Specialty Follow-up with PCP in 4-6 weeks Notify physician with fevers, chills, nausea, or vomiting, SOB, chest pain, or wound drainage. CBC and CMP to be drawn in one week and fax results to [phone]. [facility] and faxed to [facility] office [phone]. He was provided with a standing order. Home health nursing admission is pending at the time of discharge and is being arranged by the patient's business case analyst with [employer]. Information on cardiac rehab was [...] . Signed: Christo Cota NP Cardiothoracic Surgery [facility] [phone] 43:30 PM Cosigned by Ernie Baldwin MD [...] fruits and vegetables. For questions, can call [facility] Dietitian's Office at [phone]. Additional resources available online from the [place] [employer] at [email or web address] documented in this encounter [...] mouth nightly enoxaparin (LOVENOX) 80 mg/0.8 mL syringeIndications:Md chanical Valve Thromboembolism Prophylaxis Inject 0.8 mL [...] NOTE PATIENT'S NAME:Stephan Madden :1965 AGE:58 y.o. ROOM:[address] Past Medical History: Diagnosis Date Arthritis Atrial fibrillation (CMS/HCC) (HCC) Depression H/O ETOH abuse went to rehab for 3 months Heart murmur Hypertension Nonrheumatic aortic (valve) stenosis Paroxysmal SVT (supraventricular tachycardia) ([facility]) Seizures ([facility]) 1 x 3-4 years ago [...] / sternal precautions APPEARANCE/POSTURE: seated in recliner, security monitor intact, spouse present, patient dressed in [...] 03/30/2024 4:21 PM CDT * Christo Cota, 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 - 03/30/2024 12:20 PM CDT Cardiothoracic Surgery [...] one week and have INR drawn at [place] Christo Cota NP Cardiothoracic Surgery [facility] Cosigned by Ernie Baldwin MD at [...] sodium chloride 0.9%, 0.5-20 mL, intra-catheter, Q8H [facility] Continuous Infusions:sodium chloride 0.9%, 10 mL/hr PRN [...] / Sex: 58 y.o. / male Room: [place] [address] : 1965 Date of service: 03/30/24 TIME [...] session: Yes Completed patient handoff and notified BANQUET STEWARD / RN, of patient's location and functional [...] shirt while Standing at bedside with overall [place]. Patient required assistance for N/A - Independent. [...] aortic stenosis status post aortic valve replacement. Stephna Madden is a 58 y.o. male with hypertension, hyperlipidemia, PSVT, possible paroxysmal atrial fibrillation, history of alcohol abuse, TIA. Followed in the office by . Recently foundto have severe aortic stenosis. Seen by CT surgery, and presented for outpatient mechanical AVR. Patient is in the CVU, intubated and sedated. Had [facility] earlier today[facility] being [facility]. On sedation. 03/23-patient [...] left leg which lasted about 30 minutes. [place] like his left extremities were cool during [...] 7 Days Post-Op s/p AVR with 23mm Manila valve + sternal plating Neuro: Transient left [...] INR management Christo Cota NP Cardiothoracic Surgery [facility] Cosigned by Ernie Baldwin MD at 04/03/2024 3:03 PM CDT * Nena Ray COTA - 03/29/2024 10:04 AM CDT Occupational Therapy NOTE / SESSION TYPE: DAILY PROGRESS / TREATMENT Patient's Name: Stephan Madden Age / Sex: 58 y.o. / male Room: [place] [address] : 1965 Date of service: 03/29/24 TIME [...] session: Yes Completed patient handoff and notified BANQUET STEWARD / RN, name: Denilson, of patient's location [...] / Sex: 58 y.o. / male Room: [place] [address] : 1965 Date of service: 03/28/24 TIME [...] session: Yes Completed patient handoff and notified BANQUET STEWARD / RN, name: Denilson, of patient's location [...] and standing at standard toilet with overall [place]. Patient required assistance for N/A - Independent. UE dressing: Patient completed upper body dressing of Hospital gown as robe while Standing at bedside with overall Supervision assistance. Patient required assistance for verbal cue(s). Footwear: Patient completed footwear of Slip-on shoe(s) while Sitting on EOB with overall [place]. Patient required assistance for N/A - Independent Grooming: Patient completed grooming of washing face, brushing teeth, washing hands, and combing hair while Standing at sink ~3 minutes with overall [place]. Patient required assistance for N/A - Independent [...] bridge Christo Cota NP Cardiothoracic Surgery [facility] Cosigned by Ernie Baldwin MD at 04/03/2024 3:03 PM CDT * Angela Figueredo PTA - 03/28/2024 9:24 AM CDT Physical Therapy PT PROGRESS NOTE PATIENT'S NAME:Stephan Madden :1965 AGE:58 y.o. ROOM:[place] [address] Past Medical History: Diagnosis Date Arthritis Atrial fibrillation (CMS/HCC) (HCC) Depression H/O ETOH abuse went to rehab for 3 months Heart murmur Hypertension Nonrheumatic aortic (valve) stenosis Paroxysmal SVT (supraventricular tachycardia) ([facility]) Seizures ([facility]) 1 x 3-4 years ago d/t ETHO Sleep apnea uses cpap SOB (shortness of breath) end of day chest feels tight and uncomfortable TIA (transient ischemic attack) hosp 03/08/2024 - 03/10/2024 Past Surgical History: Procedure Laterality Date CARDIAC CATHETERIZATION 02/23/2024 COLONOSCOPY OTHER SURGICAL HISTORY JAVIER TYMPANOSTOMY TUBE PLACEMENT Patient Active Problem List Diagnosis Tobacco dependence Nonrheumatic aortic valve stenosis Supraventricular tachycardia ([facility]) Lipid screening Aortic valve stenosis Aortic stenosis, [...] APPEARANCE/POSTURE: seated EOB, using urinal, I.V. intact, security monitor intact, call light in reach, bed [...] ambulation APPEARANCE/POSTURE (end of session): seated EOB, 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 (Christo) present, patient spouse arrives, all lines [...] Baldwin. Uncomplicated OR course, AVR with 23mm Manila, easy airway, received 750ml cell saver, 2100ml [...] 03/26/24699 - 03/27/2465803/27/24699 - 03/28/24 0659 Shift 3464-1041 4227-6800 24 Hour Total 4792-8896 8722-5555 24 Hour Total INTAKE P.O. 600 240 [...] plan with the patient's team and other medical/pricing consultant staff. This time was in addition [...] to floor Marlo Rdz MD Cardiothoracic Surgery [facility] * Tam Arias NP - 03/26/2024 10:03 [...] HFpEF EF 60-70%, TIA Hospital Course 03/22 [facility] AVR, NE/vaso/ epi/ 2 prbc, 1 [...] Placement Date/Time: 03/22/24 0816 Inserted by: Venkat Yeagre RN Catheter Type: (c) Double-lumen;Straight-tip Tube Size [...] 03/25/24699 - 03/26/2465803/26/24699 - 03/27/24 0659 Shift 7530-6617 0305-9756 24 Hour Total 3178-8593 9776-7816 24 Hour Total INTAKE P.O. 120 120 [...] plan with the patient's team and other medical/pricing consultant staff. This time was in addition [...] 4 Days Post-Op s/p AVR with 23mm Manila valve + sternal plating CVS: Afib converted [...] Dispo: CTICU Marlo Rdz MD Cardiothoracic Surgery [facility] Cosigned by Clem Schmidt MD at 03/26/2024 [...] and alert ASSESSMENT -severe s/p AVR 23mm Manila mech valve -postop AFib with RVR -postop [...] NOTE PATIENT'S NAME:Stephan Madden :1965 AGE:58 y.o. ROOM:[place] [address] [address] Past Medical History: Diagnosis Date Arthritis Atrial fibrillation (CMS/HCC) ([facility]) Depression H/O ETOH abuse went to rehab for 3 months Heart murmur Hypertension Nonrheumatic aortic (valve) stenosis Paroxysmal SVT (supraventricular tachycardia) ([facility]) Seizures ([facility]) 1 x 3-4 years ago [...] / Sex: 58 y.o. / male Room: [place] [address] : 1965 Date of service: 03/25/24 TIME [...] stenosis Paroxysmal SVT (supraventricular tachycardia) ([facility]) Seizures ([facility]) 1 x 3-4 years ago [...] session: Yes Completed patient handoff and notified BANQUET STEWARD / RN, name: Kelsey, of patient's location [...] HFpEF EF 60-70%, TIA Hospital Course 03/22 [facility] AVR, NE/vaso/ epi/ 2 prbc, 1 [...] 03/24/24699 - 03/25/2465803/25/24699 - 03/26/24 0659 Shift 5027-8024 0130-5312 24 Hour Total 4744-8888 5243-9885 24 Hour Total INTAKE P.O. 650 650 [...] plan with the patient's team and other medical/pricing consultant staff. This time was in addition [...] 3 Days Post-Op s/p AVR with 23mm Manila valve + sternal plating CVS: Afib converted [...] Dispo: CTICU Marlo Rdz MD Cardiothoracic Surgery [facility] Cosigned by Ernie Baldwin MD at 03/25/2024 [...] -prior TIA PLAN/RECOMMENDATIONS -severe s/p AVR 23mm Manila mech valve, continue current postop management, PT/OT. [...] Dispo: CTICU Marlo Rdz MD Cardiothoracic Surgery [facility] Cosigned by Ernie Baldwin MD at 03/25/2024 10:50 AM CDT * Odin Cartagena, PT - 03/24/2024 7:40 AM CDT Physical Therapy INITIAL EVALUATION PATIENT'S NAME:Stephan Madden :1965 AGE:58 y.o. ROOM:[place] [address] TIME IN: 926 TIME OUT:957 CURRENT DIAGNOSIS [...] stenosis Paroxysmal SVT (supraventricular tachycardia) ([facility]) Seizures ([facility]) 1 x 3-4 years ago [...] 18 = Likely require inpatient rehab or mcc placement at discharge APPEARANCE/POSTURE (end of session): [...] and Phos repletion - DC Chest tubes, Allison, Reyes catheter HPI 58 yo male with worsening SOB and fatigue with exertion x1 year. Admitted to ICU s/p planned AVR with Dr. Baldwin. Uncomplicated OR course, AVR with 23mm Manila, easy airway, received 750ml cell saver, 2100ml [...] HFpEF EF 60-70%, TIA Hospital Course 03/22 [facility] AVR, NE/vaso/ epi/ 2 prbc, 1 [...] 03/24/24 0659 03/24/24699 - 03/25/24 0659 Shift 4615-4371 3569-8239 24 Hour Total 1643-9264 4528-4345 24 Hour Total INTAKE P.O. 300 310 [...] plan with the ICU team and other medical/pricing consultant staff, making frequent assessments and decisions [...] included. Critical Care Medicine Daily Progress Team: [facility] AM Subjective Patient is a 58 y.o. y/o male admitted on 03/22/2024 5:30 AM with the following indication(s) for ICU care s/p Mechanical AVR Interval History: Cleviprex for BP control HPI 58 yo male with worsening SOB and fatigue with exertion x1 year. Admitted to ICU s/p planned AVR with Dr. Baldwin. Uncomplicated OR course, AVR with 23mm Manila, easy airway, received 750ml cell saver, 2100ml [...] HFpEF EF 60-70%, TIA Hospital Course 03/22 [facility] AVR, NE/vaso/ epi/ 2 prbc, 1 [...] attending. FLASH Suarez Critical Care Performed by: Eriak Villanueva PA Authorized by: Erika Villanueva PA [...] plan with the ICU team and other medical/pricing consultant staff, making frequent assessments and decisions [...] / Sex: 58 y.o. 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 Social roles / Hobbies: put [...] session: Yes Completed patient handoff and notified BANQUET STEWARD / RN, name: Thu, of patient's location [...] 4/5 except shoulders 3-/5 Hand Dominance: Right Configuration Management Advisor Strength (Right) good Configuration Management Advisor Strength (Left): good Right Serial Opposition: Intact [...] (from Occupational Therapy) Active Problems Problem: OT [facility] Start Date: 03/23/24 Goal Start Date Expected End Date End Date OT [facility] 1 03/23/24 03/30/24 -- Goal Details: Patient [...] Lethargic, arousable ASSESSMENT -severe s/p AVR 23mm Manila mech valve -PSVT -hypertension -dyslipidemia -prior TIA PLAN/RECOMMENDATIONS -severe s/p AVR 23mm Manila mech valve, extubated earlier this morning (03/23). [...] AVR Interval History: Passed SBT Extubated to [place] Insulin gtt DC-d HDSSI started HPI 58 yo male with worsening SOB and fatigue with exertion x1 year. Admitted to ICU s/p planned AVR with Dr. Baldwin. Uncomplicated OR course, AVR with 23mm Manila, easy airway, received 750ml cell saver, 2100ml [...] HFpEF EF 60-70%, TIA Hospital Course 03/22 [facility] AVR, NE/vaso/ epi/ 2 prbc, 1 [...] 03/22/24699 - 03/23/2465803/23/24699 - 03/24/24 0659 Shift 9985-3831 7600-4468 24 Hour Total 8876-6690 2773-7247 24 Hour Total INTAKE I.V.(mL/kg) 2100(27.5) 1182.6(15.5) 3282.6(43) 55.2(0.7) 55.2(0.7) Blood 095 066 8756 IV Piggyback 100 1470 1570 Shift Total(mL/kg) 2660(34.8) 3602.6(47.2) 6262.6(82) 55.2(0.7) 55.2(0.7) OUTPUT Urine(mL/kg/hr) 1085(1.2) 495(0.5) 1580(0.9) 40 40 Blood 500 500 Chest Tube 954 157 7394 0 0 Shift Total(mL/kg) 2345(30.7) 915(12) 3260(42.7) [...] plan with the ICU team and other medical/pricing consultant staff, making frequent assessments and decisions [...] 1 Day Post-Op s/p AVR with 23mm Manila valve + sternal plating CVS: CI @ [...] Dispo: CTICU Marlo Rdz MD Cardiothoracic Surgery [facility] Cosigned by Ernie Baldwin MD at 03/25/2024 10:49 AM CDT * Marlo Portillo Handy, 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 - 03/22/2024 10:40 PM CDTAssociated Order(s): Critical [...] Baldwin. Uncomplicated OR course, AVR with 23mm Manila, easy airway, received 750ml cell saver, 2100ml [...] HFpEF EF 60-70%, TIA Hospital Course 03/22 [facility] AVR, NE/vaso/ epi/ 2 prbc, 1 [...] 03/22/24 0659(Not Admitted) 03/22/24699 - 03/23/2459 Shift 8453-3578 24 Hour Total 5530-0617 3383-6889 24 Hour Total INTAKE I.V.(mL/kg) 2100(27.5) 618.4(8.1) 2718.4(35.6) Blood 158 733 8919 IV Piggyback 100 850 950 Shift Total(mL/kg) 2660(34.8) 2418.4(31.7) 5078.4(66.5) OUTPUT Urine(mL/kg/hr) 1085(1.2) 210 1295 Blood 500 500 Chest Tube 544 158 8365 Shift Total(mL/kg) 2345(30.7) 470(6.2) 2815(36.8) NET 315 [...] AM Result Value Ref Range Product code Q7312O40 Unit Number [id number] Product Blood Type BPOS Dispense Status PRESUMED TRANSFUSED Product code M0307X12 Unit Number [id number] Product Blood Type BPOS Dispense Status ISSUED Product code M4064S80 Unit Number [id number] Product Blood Type BPOS Dispense Status CROSSMATCHED Product code V4659T57 Unit Number [id number] Product Blood Type BPOS Dispense Status CROSSMATCHED Prepare platelets: 2 Units Collection Time: 03/22/24 6:00 AM Result Value Ref Range Product code G3619Q98 Unit Number [id number] Product Blood Type OPOS Dispense Status PRESUMED TRANSFUSED Prepare plasma: 2 Units Standard plasma Collection Time: 03/22/24 6:00 AM Result Value Ref Range Product code C6786Q80 Unit Number [id number] Product Blood Type BPOS Dispense Status PRESUMED [...] PM Result Value Ref Range Product code R2396N57 Unit Number [id number] Product Blood Type APOS Dispense Status PRESUMED TRANSFUSED Product code A6543L52 Unit Number [id number] Product Blood Type APOS Dispense Status PRESUMED [...] PIVs Goals of care: full code [facility] PM Assessment and plan has been reviewed [...] plan with the ICU team and other medical/pricing consultant staff, making frequent assessments and decisions [...] 03/24/2024 1:22 AM CDT * Juan Tapia, [facility] - 03/22/2024 12:43 PM CDT Images from [...] to microscopic and culture Urine, clean voided [[id number]] (Abnormal) Urine, clean voided Final result Component [...] Baldwin. Uncomplicated OR course, AVR with 23mm [place], easy airway, received 750ml cell saver, 2100ml [...] flush 0.5-20 mL 0.5-20 mL intra-catheter Q8H [facility] vancomycin 1250 mg/250 mL in sodium chloride [...] AM Result Value Ref Range Product code V5342J41 Unit Number [id number] Product Blood Type BPOS Dispense Status CROSSMATCHED Product code O7844P36 Unit Number [id number] Product Blood Type BPOS Dispense Status CROSSMATCHED Product code E3784L47 Unit Number [id number] Product Blood Type BPOS Dispense Status CROSSMATCHED Product code A2116O22 Unit Number [id number] Product Blood Type BPOS Dispense Status CROSSMATCHED Prepare platelets: 2 Units Collection Time: 03/22/24 6:00 AM Result Value Ref Range Product code F2453O14 Unit Number [id number] Product Blood Type OPOS Dispense Status ISSUED [...] plan with the ICU team and other medical/pricing consultant staff, making frequent assessments and decisions [...] - 02/26/2024 9:00 AM CDT Cardiothoracic Surgery [place] History & Physical [facility] Dr. Levar Morillo [...] proceed. Maurisio Flower NP Cardiothoracic Surgery [facility] [phone] 411:59 AM Ernie Baldwin MD FACS Cardiothoracic Surgery [facility] Emergency Room Tech completed with [employer]. Emergency Room Tech variances may occur. Cosigned by Ernie Baldwin [...] Date Arthritis Atrial fibrillation (CMS/HCC) ([facility]) Depression H/O ETOH abuse went to rehab for 3 months Heart murmur Hypertension Nonrheumatic aortic (valve) stenosis Paroxysmal SVT (supraventricular tachycardia) ([facility]) Seizures ([facility]) 1 x 3-4 years ago [...] < > 0.76* < > 0.80 0.78* [id number] mL/min/1.73 m2 >90 < > >90 < [...] fruits and vegetables. For questions, can call [facility] Dietitian's Office at [phone]. Additional resources available online from the [place] [employer] at [email or web address]/en/healthy-living/[email or web address] Nutrition Follow-Up : 04/05/24 Gloria Christian MS, RD, LD * Silverio Santos - 03/28/2024 12:42 PM CDT [id number] Urgent: Anoint: Yes Holy Com: Yes Bless: Yes Misc: in room and communed Silverio Fabienne Santos * Silverio Santos - 03/27/2024 1:36 PM CDT [id number] Urgent: Anoint: Yes Holy Com: No Bless: Yes Misc: Silent prayer offered. [facility] * Silverio Santos - 03/24/2024 2:25 PM CDT [id number] Urgent: Anoint:Yes Holy Com: No - unable to swallow Bless: Yes Misc: Brother in room [facility] * Silverio Santos - 03/23/2024 3:02 PM CDT [id number] Urgent: Anoint: Yes Holy Com: No Bless: Yes Misc: Brother and glyjcf-bb-ydh in room [facility] * Jolanta Quintero DO - 03/22/2024 3:10 [...] -prior TIA PLAN/RECOMMENDATIONS -severe s/p AVR 23mm [place] mech valve, doing well postoperatively. Wean vent [...] discharge needs arise, please contact the covering business case analyst. Discharge Disposition Code: 01 * Plan of Care - Liberty Ruelas RN - 03/30/2024 1:12 PM CDT 03/30/24 1311 Communications Important Message from Medicare notice given to patient? Not Applicable CLEMENT letter given? Not Applicable Patient choice (Home Health/Hospice) list given to patient/sales representative gas service? Yes ([facility] Facilities [facility] Jail Facility list given to patient/sales representative gas service? Not Applicable Fiduciary Responsibility Patient/Designated decision maker was informed of [facility] fiduciary relationship as necessary Notice of Non-Covered Continued Stay or Hospital Services Given to Patient Not Applicable * Plan of Care - Liberty Ruelas RN - 03/30/2024 1:04 PM CDT CM spoke with the patient's Lodging Facilities Manager of [employer] for assistance with obtaining HH for the patient.CM received information for [employer] who provides assistance with seeking HH. Informationwas faxed and [employer] has initiated working on securing home yaron. was notified this shift thatif [employer] is unable to secure in network HH, [...] by CTS. HH pending. * Plan of [facility] - Brayan Dyer - 03/29/2024 6:21 PM [...] Home Care Services Name and Phone Number [facility] Home Health [phone] OP Services N/A DME N/A Post Acute [...] Ruelas RN - 03/28/2024 3:47 PM CDT [place] [address] Date: Mar 28, 2024 Ambulatory referral to Home Health Patient: Stephan Madden [address] [place] [address] : 1965 SSN: [id number] Sex: M Insurance: [id number] OPEN ACCESS Referring Provider Information: CHRISTO COTA Referral Information: # Visits: 1 Referral Type: Home Health [42] Urgency: Routine Referral Reason: Specialty Services Required Start Date: Mar 28, 2024 End Date: To be determined by Insurer Diagnosis: Aortic stenosis, severe (I35.0) Refer to Dept: [facility] Home Care Services [address] [place], [address] Service Line: Home Health Primary disciplines requested: Jail Home Health Services: [facility] Home Health Services: [...] Authorizing Provider: Christo Cota NP ( ) Horse Race Starter: Ernie Baldwin MD This document serves as a request of services and does not constitute Insurance authorization or approval of services. To determine eligibility, please contact the member???s Insurance carrier to verify and review coverage. If you have medical questions regarding this request for services. Please contact [facility] [phone] between the hours of 8:00am - 4:30pm [...] bladder scan as needed Discuss catheterization for shelter situations as appropriate Assess amount and/or characteristics [...] Interview Note Information Obtained From: Patient (03/24/24 1500) Admission Source: Non Medical (Home) Impression: 58 [...] step; works full-time; independent with ADLs; uses [employer] in [place], [place]; reliable transportation -car; smokes 1ppd x 35 years; smoke marijuana 2x daily, however will indulge in gummies; interacts with friend; spouse deferred advance directives and would like to speak with the patien Primary Source of Transportation: Does the patient need discharge transport arranged?: No (Family for transport home) (03/24/24 1604) Health Insurance Coverage: Cigna Open Access Prescription Coverage: Yes Pharmacy: [id number] - [place], [place] - [address] [address] [facility] [id number] Primary Care Provider: Carolyn Davis MD Prior to Admission: Functional Status: Independent with ADLs Primary Caregiver: Self Support System: Spouse/Significant Other, Family members (Spouse: Yumiko Madden [phone]) Home Care Services: No Outpatient Services: No [...] were you homeless or living in a custodial (including now)?: No (03/24/241652) Utilities: Social Connections: In a typical week, how many times do you talk on the phone with family, friends, or neighbors?: Once a week How often do you get together with friends or relatives?: Once a week How often do you attend druze or jehovah's witness services?: Never Do you belong to any clubs or organizations such as druze groups, unions, fraternal [...] Screening Potential discharge needs include: Home Health: penitentiary (03/24/241608) OP Services: Dialysis: Behavioral Health Services: Behavioral Health Services: No (03/24/241608) Anticipated Level of Care: Anticipated discharge level of care: Private residence Pt/Family agrees with Anticipated Level of Care: Yes (03/24/24 1601) Patient expects to be Discharged to: Private residence, (03/24/24 1607) Additional Information: CM met with patient at [...] Collaboration with Patient, Provider, Direct Care Nurse, Brazer Crawler Torch, and other members of theHealth Care Team to assure needed interventions completed. 2. Return patient to optimal level of self-care post discharge. 3. Lodging Facilities Manager will follow for Discharge Planning - interventions as needed 4. Anticipated level of care at discharge 5. Planned Discharge Disposition VI Hannon, RN paint stockman [phone] * Plan of Care - Carole Lundberg [...] for any change in amount and/or color Angela appropriate cooling/warming therapies per order Administer medications [...] unit of FFP given. Critical care team 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, Jaron Portillo, noted effusion per ultrasound. Dr. [...] 03/22/2024 SURGEON Ernie Baldwin MD AUTO SERVICE STATION ATTENDANT Marlo Rdz PREOPERATIVE DIAGNOSIS Aortic Stenosis POSTOPERATIVE DIAGNOSIS Aortic Stenosis PROCEDURE PERFORMED Aortic valve replacement using 23-millimeter [place] mechanical aortic valve Sternal plating ANESTHESIA General. [...] - Primary Anesthesiologist: Sherron Archibald MD Anesthesiologist Pet Ambassador: Vania Chaudhry AA Cyber Instructor: Thuy Miranda CCP Solid Surface Fabricator: Venkat Yeager RN Scrub Relief: Prerna Smalls RN Scrub: Sole Weiner RN GMAT TUTOR: Jl Ledesma CRNFA FLOAT: Brenna Johnson, KATHERIN; [...] Implant Name Type Inv. Item Serial No. Senior Bi Developer Lot No. LRB No. Used Action ON-X INTRNL Valve Coronary Aortic Mechanical On X 23mm [id number] - [id number] - [id number] ON-X INTRNL Valve Coronary Aortic Mechanical On X 23mm [id number] On-X Intrnl N/A 1 Implanted [employer] Screw Bone Slf Drl Full Thread Locking 3.5x16mm Ti 100.035.16 - [id number] [employer] Screw Bone Slf Drl Full Thread Locking 3.5x16mm Ti 100.035.16 [employer] N/A 6 Implanted [employer] Screw Bone Slf Drl Full Thread Locking 3.5x18mm Ti 100.035.18 - [id number] [employer] Screw Bone Slf Drl Full Thread Locking 3.5x18mm Ti 100.035.18 [employer] N/A 10 Implanted [employer] Plate Bone Low Profile 4 Hole Box Sternum Ti 115.103.04 - [id number] [employer] Plate Bone Low Profile 4 Hole Box Sternum Ti 115.103.04 [employer] N/A 1 Implanted [employer] Plate Bone Low Profile 6 Hole O Concave Sternum Ti 115.604.06 - [id number] [employer] Plate Bone Low Profile 6 Hole O Concave Sternum Ti 115.604.06 [employer] N/A 1 Implanted [employer] Plate Bone Low Profile 6 Hole H Shape Sternum Ti 115.102.06 - [id number] [employer] Plate Bone Low Profile [...] LAB BLOOD ORDERABLES Final Res ult ORI STODADRD [address] Department [place] [address] * (ABNORMAL) Protime-INR (03/30/2024 9:54 AM CDT) [...] BLOOD ORDERABLES Final Result Performing Organization Address [facility] de Phone Number ORI STODDARD [address] Department [place] [address] * (ABNORMAL) Basic metabolic panel (03/30/2024 9:54 AM CDT) Pathologist [facility] Sodium 138 135 - 145 mmol/L Potassium, pl 4.0 3.3 - 4.9 mmol/L [facility] Chloride 102 97 - 110 mmol/L [facility] CO2 24 22 - 32 mmol/L [facility] Anion gap 12 2 - 15 mmol/L [facility] BUN 24 6 - 25 mg/dL [facility] Creatinine 0.67(L) 0.80 - 1.30 mg/dL [facility] Comment:Icteric sample, test results may be affected. [...] Res ult Performing Organization Address [facility] Co de Phone Number ORI [address] [address] Department [place] [address] * POCT glucose (03/30/2024 7:38 AM CDT) Glucose, POC 122 70 - 199 mg/dL Blood 03/30/2024 7:38 AM CDT 03/30/2024 7:38 AM CDT Ernie Baldwin MD LAB POCT ORDERABLES - DEVICE F inal Result Performing Organization Address [facility] de Phone Number ORI [address] [address] [place] [place] [address] * XR Chest 1 View (03/30/2024 4:12 [...] signed by: Hamzah Mackey M.D. Christo Cota 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 IMG XR PROCEDURES Final Re sult * POCT glucose (03/30/2024 12:46 AM CDT) Glucose, POC 105 70 - 199 mg/dL Blood 03/30/2024 12:4 6 AM CDT 03/30/2024 12:46 AM CDT Ernie Baldwin MD LAB POCT ORDERABLES - DEVICE F inal Result Performing Organization Address [facility] de Phone Number [facility] [address] [employer] [place] [address] * POCT glucose (03/29/2024 8:50 PM CDT) Glucose, POC 139 70 - 199 mg/dL Blood 03/29/2024 8:50 PM CDT 03/29/2024 8:50 PM CDT Ernie Baldwin MD LAB POCT ORDERABLES - DEVICE F inal Result Performing Organization Address [facility] Co de Phone Number [facility] [address] [address] [place] [place] [address] * POCT glucose (03/29/2024 4:37 PM CDT) Glucose, POC 120 70 - 199 mg/dL Blood 03/29/2024 4:37 PM CDT 03/29/2024 4:37 PM CDT Ernie Baldwin MD LAB POCT ORDERABLES - DEVICE F inal Result Performing Organization Address [facility] de Phone Number ORI [address] [address] [place] [address] * POCT glucose (03/29/2024 1:03 PM CDT) Glucose, POC 151 70 - 199 mg/dL Blood 03/29/2024 1:03 PM CDT 03/29/2024 1:03 PM CDT Ernie Baldwin MD LAB POCT ORDERABLES - DEVICE F inal Result Performing Organization Address [facility] de Phone Number ORI [address] [address] [place] [place] [address] * TRANSTHORACIC ECHO (TTE) COMPLETE W DOPPLER/CF WO CONTRAST (03/29/2024 10:30 AM CDT) Anatomical Region Laterality Modality Ultrasound 03/29/2024 8:35 AM CDT Narrative 03/29/2024 3:21 PM CDT [address] [address] Echocardiogram Report Patient Name: STEPHAN MADDEN A : 1965 Study Date: 03/29/2024 8:35:42 AM Gender: M Tech: Location: [id number] Ref Provider: CHRISTO COTA ?Height(Cm): 183 BSA: [...] Procedure Note [place] Ruvalcaba MD - 03/29/2024 [place] [address] Echocardiogram Report Patient Name: STEPHAN MADDEN A : 1965 Study Date: 03/29/2024 8:35:42 AM Gender: M Tech: Location: [id number] Ref Provider: CHRISTO COTA Height(Cm): 183 BSA: [...] CDT 03/29/2024 9:04 AM CDT Christo Cota 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 LAB BLOOD ORDERABLES Final Result ORI [address] [facility] Department [place] [address] * eGFR (03/29/2024 5:40 AM CDT) eGFR [...] Organization Address City/[facility] Co de Phone Number ORI STODDARD [address] [place] Department [facility] [place] [address] * (ABNORMAL) aPTT (03/29/2024 5:40 [...] Organization Address City/[facility]/[place] [address] [address] [place] [place] [address] * (ABNORMAL) Basic metabolic panel (03/29/2024 5:40 AM CDT) Pathologist [facility] Sodium 137 135 - 145 mmol/L Potassium, pl 3.3 3.3 - 4.9 mmol/L [facility] Chloride 100 97 - 110 mmol/L [facility] CO2 25 22 - 32 mmol/L [facility] Anion gap 12 2 - 15 mmol/L [facility] BUN 26(H) 6 - 25 mg/dL [facility] Creatinine 0.73(L) 0.80 - 1.30 mg/dL [facility] Comment:Icteric sample, test results may be affected. Glucose 116 70 - 199 mg/dL [facility] Comment: Interpretive Data Fasting glucose >/= 126 [...] 2022. Calcium 9.0 8.5 - 10.3 mg/dL [facility] Blood 03/29/2024 5:40 AM CDT 03/29/2024 6:07 AM CDT us Ernie Baldwin MD LAB BLOOD ORDERABLES Final Res ult [facility] [address] [address] Department [place] [address] * (ABNORMAL) CBC without differential (03/29/2024 5:40 AM CDT) Pathologist [facility] WBC 11.8(H) 3.8 - 9.9 K/cumm Hgb 8.6(L) 13.0 - 17.5 g/dL [facility] Hct 26.1(L) 38.9 - 50.3 % [facility] Plt 192 150 - 400 K/cumm [facility] MPV 9.9 9.1 - 12.3 fL [facility] RBC 2.84(L) 4.30 - 5.80 M/cumm ORI STODDARD MCV 91.9 81.3 - 96.4 fL ORI ST[facility] MCH 30.3 27.1 - 33.3 pg ORI STODDARD MCHC 33.0 32.3 - 35.7 g/dL ROI CH RDW CV 14.4 11.1 - 14.9 % ORI CH RDW SD 47.6 35.7 - 48.1 fL ORI STODDARD NRBC abs 0.00 0.00 - 0.01 K/cumm ORI STODDARD Blood 03/29/2024 5:40 AM CDT 03/29/2024 6:07 AM CDT us Ernie Baldwin MD LAB BLOOD ORDERABLES Final Res ult ROI [address] Department [place] [address] * XR Chest 1 View (03/29/2024 4:21 [...] signed by: Hamzah Mackey M.D. Christo Cota 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 IMG XR PROCEDURES Final Re sult * POCT glucose (03/29/2024 1:39 AM CDT) Glucose, POC 123 70 - 199 mg/dL Blood 03/29/2024 1:39 AM CDT 03/29/2024 1:39 AM CDT Ernie Baldwin MD LAB POCT ORDERABLES - DEVICE F inal Result Performing Organization Address [facility] Co de Phone Number ORI STODDARD [address] [employer] [place], [place] [id number] * (ABNORMAL) aPTT (03/29/2024 12:28 AM CDT) [...] Res ult Performing Organization Address [facility] [place] [address] [address] Department [facility] [place], [place] [phone] * (ABNORMAL) aPTT (03/28/2024 10:04 PM CDT) [...] Res ult Performing Organization Address [facility] Co de Phone Number ORI [address] [address] [facility] [employer] [place], [place] [id number] * POCT glucose (03/28/2024 8:19 PM CDT) Glucose, POC 175 70 - 199 mg/dL Blood 03/28/2024 8:19 PM CDT 03/28/2024 8:19 PM CDT Ernie Baldwin MD LAB POCT ORDERABLES - DEVICE F inal Result Performing Organization Address [facility] de Phone Number ORI [address] [address] [facility] [employer] [place], [place] [id number] * POCT glucose (03/28/2024 5:49 PM CDT) Glucose, POC 133 70 - 199 mg/dL Blood 03/28/2024 5:49 PM CDT 03/28/2024 5:49 PM CDT Ernie Baldwin MD LAB POCT ORDERABLES - DEVICE F inal Result Performing Organization Address [facility] de Phone Number ORI [address] [address] [facility] [employer] [place], [place] [phone] * (ABNORMAL) aPTT (03/28/2024 1:53 PM CDT) [...] Res ult Performing Organization Address [facility] Co de Phone Number ORI STODDARD [address] [address] Department [place] [address] * POCT glucose (03/28/2024 11:58 AM CDT) Glucose, POC 141 70 - 199 mg/dL Blood 03/28/2024 11:5 8 AM CDT 03/28/2024 11:58 AM CDT Ernie Baldwin MD LAB POCT ORDERABLES - DEVICE F inal Result Performing Organization Address [facility] de Phone Number ORI STODDARD [address] [address] [place] [address] * XR Chest 1 View (03/28/2024 9:09 [...] are clear. ??The tip of a retracted Allison-Stevie catheter is in the superior vena cava. [...] are clear. The tip of a retracted Allison-Stevie catheter is in the superior vena cava. IMPRESSION: Right lower lobe collapse-consolidation. Electronically signed by: Hamzah Mackey M.D. us Christo Cota 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 IMG XR PROCEDURES Final Re sult * [...] Res ult Performing Organization Address [facility] Co de Phone Number ORI [address] [address] [facility] [place] [address] * (ABNORMAL) aPTT (03/28/2024 6:30 AM CDT) [...] Res ult Performing Organization Address [facility] Co de Phone Number [address]ANDAR[place] [address] [address] [facility] [place] [place] [address] * Protime-INR (03/28/2024 6:30 AM CDT) PT [...] Organization Address City/[facility] Co de Phone Number ORI STODDARD [address] [address] Department [place] [address] * (ABNORMAL) Basic metabolic panel (03/28/2024 6:30 AM CDT) Sodium 137 135 - 145 mmol/L Potassium, pl 3.4 3.3 - 4.9 mmol/L [facility] Chloride 99 97 - 110 mmol/L [facility] CO2 27 22 - 32 mmol/L [facility] Anion gap 11 2 - 15 mmol/L [facility] BUN 25 6 - 25 mg/dL [facility] Creatinine 0.75(L) 0.80 - 1.30 mg/dL [facility] Comment:Icteric sample, test results may be affected. Glucose 119 70 - 199 mg/dL [facility] Comment: Interpretive Data Fasting glucose >/= 126 [...] 2022. Calcium 9.0 8.5 - 10.3 mg/dL [facility] Blood 03/28/2024 6:30 AM CDT 03/28/2024 6:42 AM CDT us Ernie Baldwin MD LAB BLOOD ORDERABLES Final Res ult ORI [address]OD[address] [address] [address] [place] [address] * (ABNORMAL) CBC without differential (03/28/2024 6:30 AM CDT) WBC 11.8(H) 3.8 - 9.9 K/cumm Hgb 8.1(L) 13.0 - 17.5 g/dL [facility] Hct 24.4(L) 38.9 - 50.3 % [facility] Plt 169 150 - 400 K/cumm [facility] MPV 10.1 9.1 - 12.3 fL [facility] RBC 2.70(L) 4.30 - 5.80 M/cumm [facility] MCV 90.4 81.3 - 96.4 fL [facility] MCH 30.0 27.1 - 33.3 pg [facility] MCHC 33.2 32.3 - 35.7 g/dL [facility] RDW CV 14.3 11.1 - 14.9 % [facility] RDW SD 45.7 35.7 - 48.1 fL [facility] NRBC abs 0.00 0.00 - 0.01 K/cumm [facility] Blood 03/28/2024 6:30 AM CDT 03/28/2024 6:42 AM CDT Ernie Baldwin MD LAB BLOOD ORDERABLES Final Res ult Performing Organization Address City/[facility] Co de Phone Number ORI STODDARD [address] [address] Department [facility] [place] [address] * POCT glucose (03/28/2024 1:27 AM CDT) Glucose, POC 137 70 - 199 mg/dL Blood 03/28/2024 1:27 AM CDT 03/28/2024 1:27 AM CDT Ernie Baldwin MD LAB POCT ORDERABLES - DEVICE F inal Result Performing Organization Address [facility] Co de Phone Number ORI [address] [address] Department [facility] [place] [address] * aPTT (03/27/2024 9:37 PM CDT) Pathologist [facility] aPTT 32 28 - 38 sec Comment: Interpretive Data Heparin therapeutic range: 66.0 - 100.0 seconds. Range based on correlation with therapeutic heparin activity range of 0.3 - 0.7 Units/mL. Current interpretive data was last revised on 2023. Blood 03/27/2024 9:37 PM CDT 03/27/2024 9:48 PM CDT Ernie Baldwin MD LAB BLOOD ORDERABLES Final Res ult Performing Organization Address [facility] Co de Phone Number BANDARRIO STOD[address] [address] [address] [facility] [employer] [place], [place] [phone] * Protime-INR (03/27/2024 9:37 PM CDT) PT [...] Res ult Performing Organization Address [facility] de Phone Number ORI STODDARD [address] [address] [facility] [place] [place] [address] * POCT glucose (03/27/2024 8:47 PM CDT) Glucose, POC 122 70 - 199 mg/dL Blood 03/27/2024 8:47 PM CDT 03/27/2024 8:47 PM CDT Result [facility] Ernie Baldwin MD LAB POCT ORDERABLES - DEVICE F inal Result Performing Organization Address [facility] Co de Phone Number ORI [address] [address] [facility] [place] [address] * POCT glucose (03/27/2024 4:54 PM CDT) Glucose, POC 144 70 - 199 mg/dL Blood 03/27/2024 4:54 PM CDT 03/27/2024 4:54 PM CDT Ernie Baldwin MD LAB POCT ORDERABLES - DEVICE F inal Result ORI STODDARD [address] [address] [place] [address] * eGFR (03/27/2024 2:23 PM CDT) eGFR [...] BLOOD ORDERABLES Final Res ult ORI STODDARD [address] [address] [facility] [place] [address] * Phosphorus (03/27/2024 2:23 PM CDT) Pathologist [facility] Phosphorus, pl 3.8 2.3 - 4.5 mg/dL Blood 03/27/2024 2:23 PM CDT 03/27/2024 2:36 PM CDT Ernie Baldwin MD LAB BLOOD ORDERABLES Final Res ult Performing Organization Address [facility] Co de Phone Number ORI [address] [place] [address] * (ABNORMAL) CBC without differential (03/27/2024 2:23 PM CDT) Pathologist [facility] WBC 10.5(H) 3.8 - 9.9 K/cumm Hgb 8.1(L) 13.0 - 17.5 g/dL [facility] Hct 23.2(L) 38.9 - 50.3 % [facility] Plt 137(L) 150 - 400 K/cumm [facility] MPV 10.7 9.1 - 12.3 fL [facility] RBC 2.61(L) 4.30 - 5.80 M/cumm [facility] MCV 88.9 81.3 - 96.4 fL [facility] MCH 31.0 27.1 - 33.3 pg [facility] MCHC 34.9 32.3 - 35.7 g/dL [facility] CH RDW CV 14.2 11.1 - 14.9 % [facility] CH RDW SD 45.3 35.7 - 48.1 fL [facility] CH NRBC abs 0.00 0.00 - 0.01 K/cumm [facility] Blood 03/27/2024 2:23 PM CDT 03/27/2024 2:36 PM CDT Ernie Baldwin MD LAB BLOOD ORDERABLES Final Res ult Performing Organization Address City/[facility]/ZIP Co de Phone Number ORI [address] [address] Department [facility] [place] [address] * Magnesium (03/27/2024 2:23 PM CDT) Magnesium 1.7 1.4 - 2.5 mg/dL Blood 03/27/2024 2:23 PM CDT 03/27/2024 2:36 PM CDT Ernie Baldwin MD LAB BLOOD ORDERABLES Final Res ult Performing Organization Address [facility] de Phone Number ORI [address] [address] [place] [address] * (ABNORMAL) Basic metabolic panel (03/27/2024 2:23 PM CDT) Pathologist [facility] Sodium 139 135 - 145 mmol/L Potassium, pl 3.6 3.3 - 4.9 mmol/L [facility] Chloride 100 97 - 110 mmol/L [facility] CO2 26 22 - 32 mmol/L [facility] Anion gap 13 2 - 15 mmol/L [facility] BUN 25 6 - 25 mg/dL [facility] Creatinine 0.76(L) 0.80 - 1.30 mg/dL [facility] Comment:Icteric sample, test results may be affected. Glucose 115 70 - 199 mg/dL [facility] Comment: Interpretive Data Fasting glucose >/= 126 [...] 2022. Calcium 8.8 8.5 - 10.3 mg/dL [facility] Blood 03/27/2024 2:23 PM CDT 03/27/2024 2:36 PM CDT Ernie Baldwin MD LAB BLOOD ORDERABLES Final Res ult Performing Organization Address [facility] de Phone Number ORI [address] [address] [place] [address] * aPTT (03/27/2024 2:23 PM CDT) aPTT [...] Res ult Performing Organization Address [facility] Phone Number ORI [address] [address] [place] [address] * Critical Care (03/27/2024 12:14 PM CDT) [...] plan with the patient's team and other medical/pricing consultant staff. This time was in addition to and separate from care provided by other practitioners on this day of service. ?? Tam Arias 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 IN CLINIC/BEDSIDE ORD ERABLES Final Result * POCT glucose (03/27/2024 11:55 AM CDT) Glucose, POC 110 70 - 199 mg/dL Blood 03/27/2024 11:5 5 AM CDT 03/27/2024 11:55 AM CDT Ernie Baldwin MD LAB POCT ORDERABLES - DEVICE F inal Result ORI [address] [address] [place] [address] * XR Chest 1 Vw [...] inal Result Performing Organization Address [facility] Co de Phone Number BANDARRIO STODDARD [address] [employer] [place] [address] * Protime-INR (03/27/2024 6:49 AM [...] Res ult Performing Organization Address [facility]/ZIP Co de Phone Number ORI STODDARD [address] [address] [employer] [place] [address] * (ABNORMAL) aPTT (03/27/2024 6:49 [...] Res ult Performing Organization Address City/State/ZIP Co il Phone Number ORI [address] [address] [place] [address] * eGFR (03/27/2024 2:13 AM CDT) eGFR [...] BLOOD ORDERABLES Final Res ult ORI STODDARD [address] [employer] [place], [place] [id number] * (ABNORMAL) Basic metabolic panel (03/27/2024 2:13 AM CDT) Sodium 137 135 - 145 mmol/L Potassium, pl 3.3 3.3 - 4.9 mmol/L [facility] Chloride 99 97 - 110 mmol/L [facility] CO2 26 22 - 32 mmol/L [facility] Anion gap 12 2 - 15 mmol/L [facility] BUN 25 6 - 25 mg/dL [facility] Creatinine 0.77(L) 0.80 - 1.30 mg/dL [facility] Comment:Icteric sample, test results may be affected. Glucose 128 70 - 199 mg/dL [facility] Comment: Interpretive Data Fasting glucose >/= 126 [...] 2022. Calcium 8.7 8.5 - 10.3 mg/dL [facility] Blood 03/27/2024 2:1 3 AM CDT 03/27/2024 2:25 AM CDT Ernie Baldwin MD LAB BLOOD ORDERABLES Final Res ult ORI STODDARD [address] [address] [address] [facility] [place] [address] * (ABNORMAL) CBC without differential (03/27/2024 2:13 AM CDT) WBC 10.3(H) 3.8 - 9.9 K/cumm Hgb 7.8(L) 13.0 - 17.5 g/dL [facility] Hct 22.6(L) 38.9 - 50.3 % [facility] Plt 115(L) 150 - 400 K/cumm [facility] MPV 11.0 9.1 - 12.3 fL [facility] RBC 2.55(L) 4.30 - 5.80 M/cumm [facility] MCV 88.6 81.3 - 96.4 fL [facility] MCH 30.6 27.1 - 33.3 pg [facility] MCHC 34.5 32.3 - 35.7 g/dL [facility] RDW CV 14.1 11.1 - 14.9 % [facility] RDW SD 45.0 35.7 - 48.1 fL [facility] NRBC abs 0.00 0.00 - 0.01 K/cumm [facility] Blood 03/27/2024 2:13 AM CDT 03/27/2024 2:28 AM CDT Ernie Baldwin MD LAB BLOOD ORDERABLES Final Res ult Performing Organization Address [facility] Co de Phone Number BANDARRIO STODDARD [phone] [employer] [place] [address] * aPTT (03/27/2024 12:12 AM [...] Organization Address City/[facility] Co de Phone Number [facility] [address] [address] [facility] [place], [place] [id number] * POCT glucose (03/26/2024 8:28 PM CDT) Glucose, POC 171 70 - 199 mg/dL Blood 03/26/2024 8:28 PM CDT 03/26/2024 8:28 PM CDT Ernie Baldwin MD LAB POCT ORDERABLES - DEVICE F inal Result Performing Organization Address [facility] Co de Phone Number ORI STODDARD [address] [address] [facility] [employer] [place], [place] [id number] * aPTT (03/26/2024 5:32 PM CDT) Pathologist [facility] aPTT 30 28 - 38 sec Comment: Interpretive Data Heparin therapeutic range: 66.0 - 100.0 seconds. Range based on correlation with therapeutic heparin activity range of 0.3 - 0.7 Units/mL. Current interpretive data was last revised on 2023. Blood 03/26/2024 5:32 PM CDT 03/26/2024 5:41 PM CDT Marlo Rdz MD LAB BLOOD ORDERABLES Fin al Result Performing Organization Address [facility] de Phone Number ORI STODDARD [address] [address] [facility] [place] [address] * POCT glucose (03/26/2024 4:54 PM CDT) Glucose, POC 99 70 - 199 mg/dL Blood 03/26/2024 4:54 PM CDT 03/26/2024 4:54 PM CDT Ernie Baldwin MD LAB POCT ORDERABLES - DEVICE F inal Result Performing Organization Address [facility] Co de Phone Number ORI STODDARD [address] [address] [facility] [employer] [place], [place] [phone] * eGFR (03/26/2024 12:15 PM CDT) Pathologist [facility] eGFR >90 >=60 mL/min/1. 73 m2 Comment: [...] us Marlo Rdz MD LAB BLOOD ORDERABLES [facility] al Result ORI [address] [address] [place] [address] * (ABNORMAL) Differential, auto (03/26/2024 12:15 PM CDT) Neutrophil abs 9.2(H) 1.5 - 6.5 K/cumm Imm gran abs 0.1 0.0 - 0.1 K/cumm [facility] Lymphocyte abs 2.4 0.8 - 3.3 K/cumm [facility] Monocyte abs 1.2(H) 0.2 - 0.8 K/cumm [facility] Eosinophil abs 0.1 0.0 - 0.5 K/cumm [facility] Basophil abs 0.0 0.0 - 0.1 K/cumm [facility] Neutrophil pct 70.9 % [facility] Comment: Interpretive Data Percent cell count reference ranges are not reported, since discordance with absolute values may lead to misinterpretation of CBC data. Current Interpretive Data was last revised on 2017. Imm gran pct 0.5 % [facility] Comment: Interpretive Data Percent cell count reference ranges are not reported, since discordance with absolute values may lead to misinterpretation of CBC data. Current Interpretive Data was last revised on 2017. Lymphocyte pct 18.4 % [facility] Comment: Interpretive Data Percent cell count reference ranges are not reported, since discordance with absolute values may lead to misinterpretation of CBC data. Current Interpretive Data was last revised on 2017. Monocyte pct 9.1 % [facility] Comment: Interpretive Data Percent cell count reference ranges are not reported, since discordance with absolute values may lead to misinterpretation of CBC data. Current Interpretive Data was last revised on 2017. Eosinophil pct 0.9 % [facility] Comment: Interpretive Data Percent cell count reference ranges are not reported, since discordance with absolute values may lead to misinterpretation of CBC data. Current Interpretive Data was last revised on 2017. Basophil pct 0.2 % [facility] Comment: Interpretive Data Percent cell count reference ranges are not reported, since discordance with absolute values may lead to misinterpretation of CBC data. Current Interpretive Data was last revised on 2017. Blood 03/26/2024 12:1 5 PM CDT 03/26/2024 12:56 PM CDT us Marlo Rdz MD LAB BLOOD ORDERABLES Fin al Result ORI STODDARD [address] [address] [facility] [place] [address] * (ABNORMAL) CBC with auto differential (03/26/2024 12:15 PM CDT) WBC 12.9(H) 3.8 - 9.9 K/cumm Hgb 8.8(L) 13.0 - 17.5 g/dL [facility] Hct 25.2(L) 38.9 - 50.3 % [facility] Plt 138(L) 150 - 400 K/cumm [facility] MPV 11.3 9.1 - 12.3 fL [facility] RBC 2.88(L) 4.30 - 5.80 M/cumm [facility] MCV 87.5 81.3 - 96.4 fL [facility] MCH 30.6 27.1 - 33.3 pg [facility] MCHC 34.9 32.3 - 35.7 g/dL [facility] RDW CV 14.2 11.1 - 14.9 % [facility] RDW SD 44.4 35.7 - 48.1 fL [facility] NRBC abs 0.00 0.00 - 0.01 K/cumm [facility] Blood 03/26/2024 12:1 5 PM CDT 03/26/2024 12:56 PM CDT Marlo Rdz MD LAB BLOOD ORDERABLES Fin al Result Performing Organization Address [facility] de Phone Number BANDARRIO [address] [address] [facility] [place], [place] [phone] * Phosphorus (03/26/2024 12:15 PM CDT) Phosphorus, pl 4.0 2.3 - 4.5 mg/dL Blood 03/26/2024 12:1 5 PM CDT 03/26/2024 12:30 PM CDT Marlo Rdz MD LAB BLOOD ORDERABLES Fin al Result Performing Organization Address City/[facility] Co de Phone Number [facility] [address] [address] [facility] [employer] [place], [place] [phone] * Magnesium (03/26/2024 12:15 PM CDT) Magnesium 2.0 1.4 - 2.5 mg/dL Blood 03/26/2024 12:1 5 PM CDT 03/26/2024 12:30 PM CDT Marlo Rdz MD LAB BLOOD ORDERABLES Fin al Result Performing Organization Address City/[facility] Co de Phone Number ORI [address] [place] [employer] [place] [address] * Basic metabolic panel (03/26/2024 12:15 PM CDT) Sodium 139 135 - 145 mmol/L Potassium, pl 3.8 3.3 - 4.9 mmol/L [facility] Chloride 100 97 - 110 mmol/L [facility] CO2 27 22 - 32 mmol/L [facility] Anion gap 12 2 - 15 mmol/L [facility] BUN 23 6 - 25 mg/dL [facility] Creatinine 0.80 0.80 - 1.30 mg/dL [facility] Comment:Icteric sample, test results may be affected. Glucose 86 70 - 199 mg/dL [facility] Comment: Interpretive Data Fasting glucose >/= 126 [...] 2022. Calcium 9.0 8.5 - 10.3 mg/dL [facility] Blood 03/26/2024 12:1 5 PM CDT 03/26/2024 12:30 PM CDT Marlo Rdz MD LAB BLOOD ORDERABLES Fin al Result Performing Organization Address [facility] Co de Phone Number ORI STODDARD [address] [address] [address] [facility] [place] [address] * aPTT (03/26/2024 12:15 PM CDT) aPTT [...] al Result Performing Organization Address [facility] Co de Phone Number ORI STODDARD [address] [address] [place] [place] [address] * POCT glucose (03/26/2024 12:10 PM CDT) Glucose, POC 99 70 - 199 mg/dL Blood 03/26/2024 12:1 0 PM CDT 03/26/2024 12:10 PM CDT Ernie Baldwin MD LAB POCT ORDERABLES - DEVICE F inal Result Performing Organization Address [facility] [place] Number [place] [address] [address] [place] [place] [address] * Critical Care (03/26/2024 10:03 AM CDT) [...] plan with the patient's team and other medical/pricing consultant staff. This time was in addition to and separate from care provided by other practitioners on this day of service. ?? Tam Arias 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 IN CLINIC/BEDSIDE ORD ERABLES Final Result * [...] inal Result Performing Organization Address [facility] de Phone Number ORI STODDARD [address] [address] [place] [employer] [place] [address] * (ABNORMAL) aPTT (03/26/2024 6:13 AM CDT) [...] Res ult Performing Organization Address [facility] de Phone Number ORI STODDARD [address] [address] [place] [place] [address] * eGFR (03/26/2024 4:30 AM CDT) eGFR [...] MD LAB BLOOD ORDERABLES Final Res ult [facility] [address] [address] [facility] [place] [address] * (ABNORMAL) Basic metabolic panel (03/26/2024 4:30 AM CDT) Sodium 141 135 - 145 mmol/L Potassium, pl 3.4 3.3 - 4.9 mmol/L [facility] Chloride 102 97 - 110 mmol/L [facility] CO2 30 22 - 32 mmol/L [facility] Anion gap 9 2 - 15 mmol/L [facility] BUN 22 6 - 25 mg/dL [facility] Creatinine 0.78(L) 0.80 - 1.30 mg/dL [facility] Comment:Icteric sample, test results may be affected. Glucose 137 70 - 199 mg/dL [facility] Comment: Interpretive Data Fasting glucose >/= 126 [...] 2022. Calcium 8.3(L) 8.5 - 10.3 mg/dL [facility] Blood 03/26/2024 4:30 AM CDT 03/26/2024 4:53 AM CDT Ernie Baldwin MD LAB BLOOD ORDERABLES Final Res ult Performing Organization Address City/[facility]/ZIP Co de Phone Number ORI STODDARD [address] [address] [facility] [place] [address] * Magnesium (03/26/2024 4:30 AM CDT) Pathologist [facility] Magnesium 2.1 1.4 - 2.5 mg/dL Blood 03/26/2024 4:30 AM CDT 03/26/2024 4:53 AM CDT Ernie Baldwin MD LAB BLOOD ORDERABLES Final Res ult Performing Organization Address City/[facility] Co de Phone Number ORI STODDARD [phone] [employer] [place] [address] * (ABNORMAL) CBC without differential (03/26/2024 4:30 AM CDT) Pathologist [facility] WBC 10.1(H) 3.8 - 9.9 K/cumm Hgb 7.9(L) 13.0 - 17.5 g/dL [facility] Hct 22.8(L) 38.9 - 50.3 % [facility] Plt 87(L) 150 - 400 K/cumm [facility] MPV 11.2 9.1 - 12.3 fL [facility] RBC 2.62(L) 4.30 - 5.80 M/cumm [facility] MCV 87.0 81.3 - 96.4 fL [facility] MCH 30.2 27.1 - 33.3 pg [facility] MCHC 34.6 32.3 - 35.7 g/dL [facility] RDW CV 14.3 11.1 - 14.9 % [facility] RDW SD 44.4 35.7 - 48.1 fL [facility] NRBC abs 0.00 0.00 - 0.01 K/cumm [facility] Blood 03/26/2024 4:30 AM CDT 03/26/2024 4:53 AM CDT Ernie Baldwin MD LAB BLOOD ORDERABLES Final Res ult Performing Organization Address [facility] Co de Phone Number [facility] [address] [address] [place] [place] [address] * POCT glucose (03/26/2024 3:11 AM CDT) Glucose, POC 117 70 - 199 mg/dL Blood 03/26/2024 3:11 AM CDT 03/26/2024 3:11 AM CDT Ernie Baldwin MD LAB POCT ORDERABLES - DEVICE F inal Result Performing Organization Address [facility] de Phone Number [facility] [address] [address] [place] [place] [address] * (ABNORMAL) aPTT (03/26/2024 12:10 AM CDT) [...] AM CDT 03/26/2024 12:20 AM CDT Narrative [facility] - 03/26/2024 1:12 AM CDT Draw STAT [...] Res ult Performing Organization Address [facility] Co de Phone Number ORI STODDARD [phone] [address] [facility] [place] [employer] [place] [address] * POCT glucose (03/25/2024 7:33 PM CDT) Glucose, POC 132 70 - 199 mg/dL Blood 03/25/2024 7:33 PM CDT 03/25/2024 7:33 PM CDT Ernie Baldwin MD LAB POCT ORDERABLES - DEVICE F inal Result Performing Organization Address [facility] de Phone Number ORI STODDARD [address] [address] [facility] [place] [employer] [place] [address] * (ABNORMAL) aPTT (03/25/2024 6:50 PM CDT) [...] Res ult Performing Organization Address [facility] Co de Phone Number ORI STODDARD [address] [address] [facility] [place] [employer] [place] [address] * POCT glucose (03/25/2024 4:58 PM CDT) Glucose, POC 131 70 - 199 mg/dL Blood 03/25/2024 4:58 PM CDT 03/25/2024 4:58 PM CDT us Ernie Baldwin MD LAB POCT ORDERABLES - DEVICE F inal Result Performing Organization Address [facility] de Phone Number ORI STODDARD [phone] [address] [employer] [place] [address] * eGFR (03/25/2024 4:21 PM [...] Res ult Performing Organization Address [facility] de Phone Number ORI STODDARD [address] [address] [place] Department [facility] [place], [place] [phone] * (ABNORMAL) Basic metabolic panel (03/25/2024 4:21 PM CDT) Sodium 143 135 - 145 mmol/L Potassium, pl 3.5 3.3 - 4.9 mmol/L [facility] Chloride 104 97 - 110 mmol/L [facility] CO2 25 22 - 32 mmol/L [facility] Anion gap 14 2 - 15 mmol/L [facility] BUN 23 6 - 25 mg/dL [facility] Creatinine 0.71(L) 0.80 - 1.30 mg/dL [facility] Comment:Icteric sample, test results may be affected. Glucose 111 70 - 199 mg/dL [facility] Comment: Interpretive Data Fasting glucose >/= 126 [...] 2022. Calcium 8.4(L) 8.5 - 10.3 mg/dL [facility] Blood 03/25/2024 4:21 PM CDT 03/25/2024 4:24 PM CDT us Ernie Baldwin MD LAB BLOOD ORDERABLES Final Res ult [facility] [address] [address] [place] [address] * (ABNORMAL) CBC without differential (03/25/2024 12:21 PM CDT) WBC 11.3(H) 3.8 - 9.9 K/cumm Hgb 8.0(L) 13.0 - 17.5 g/dL [facility] Hct 22.8(L) 38.9 - 50.3 % [facility] Plt 68(L) 150 - 400 K/cumm [facility] Comment:No clot detected in sample. MPV 11.4 9.1 - 12.3 fL [facility] RBC 2.65(L) 4.30 - 5.80 M/cumm [facility] MCV 86.0 81.3 - 96.4 fL [facility] MCH 30.2 27.1 - 33.3 pg [facility] MCHC 35.1 32.3 - 35.7 g/dL [facility] RDW CV 14.3 11.1 - 14.9 % [facility] RDW SD 44.5 35.7 - 48.1 fL [facility] NRBC abs 0.00 0.00 - 0.01 K/cumm [facility] Blood 03/25/2024 12:2 1 PM CDT 03/25/2024 12:36 PM CDT Narrative [facility] - 03/25/2024 1:39 PM CDT Baseline prior to warfarin initiation. Ernie Baldwin MD LAB BLOOD ORDERABLES Final Res ult Performing Organization Address [facility]/ZIP Co de Phone Number ORI STODDARD [address] [address] [employer] [place] [address] * (ABNORMAL) aPTT (03/25/2024 12:21 PM CDT) aPTT 26(L) 28 - 38 sec Comment: Interpretive Data Heparin therapeutic range: 66.0 - 100.0 seconds. Range based on correlation with therapeutic heparin activity range of 0.3 - 0.7 Units/mL. Current interpretive data was last revised on 2023. Blood 03/25/2024 12:2 1 PM CDT 03/25/2024 12:36 PM CDT Narrative [facility] - 03/25/2024 12:51 PM CDT Baseline prior to heparin initiation Ernie Baldwin MD LAB BLOOD ORDERABLES Final Res ult Performing Organization Address [facility]/ZIP Co de Phone Number ORI STODDARD [phone] [address] [employer] [place] [address] * Protime-INR (03/25/2024 12:21 PM [...] Organization Address City/[facility]/ZIP Co de Phone Number ORI STODDARD [address] [address] [facility] [place] [employer] [place] [address] * POCT glucose (03/25/2024 12:06 PM CDT) Glucose, POC 129 70 - 199 mg/dL Blood 03/25/2024 12:0 6 PM CDT 03/25/2024 12:06 PM CDT Ernie Baldwin MD LAB POCT ORDERABLES - DEVICE F inal Result Performing Organization Address [facility] Co de Phone Number ORI STODDARD [phone] [address] [facility] [place] [employer] [place] [address] * ECG 12 lead (03/25/2024 9:58 AM CDT) 03/25/2024 9:58 AM CDT Narrative [facility] - 03/25/2024 10:18 AM CDT Vent Rate: 92 bpm RR Interval: [address] Interval: 135 msec QRS Duration: 102 msec QT Interval: 409 msec QTC Interval: 459 msec P-R-T [place]: 55 - 30 - 21 degrees IMPRESSION: SINUS RHYTHM NONSPECIFIC T-WAVE ABNORMALITY BORDERLINE ECG Compared to prior EKG, heart rate has increased ST elevations are no longer present Electronically Signed By: West Ruvalcaba MD Ernie Baldwin MD ECG ORDERABLES Final Result Performing Organization Address [facility] Co de Phone Number [facility] * Critical Care (03/25/2024 8:35 AM CDT) [...] plan with the patient's team and other medical/pricing consultant staff. This time was in addition [...] Organization Address City/[facility]/ZIP Co de Phone Number ORI STODDARD [address] [address] [place] [address] * XR Chest 1 Vw Portable (03/25/2024 [...] failure. ??The distal tip of a retracted Allison-Stevie catheter is in the distal superior vena [...] failure. The distal tip of a retracted Allison-Stevie catheter is in the distal superior vena [...] MD LAB BLOOD ORDERABLES Final Res ult [facility] [address] [address] [place] [address] * (ABNORMAL) Basic metabolic panel (03/25/2024 5:05 AM CDT) Sodium 142 135 - 145 mmol/L Potassium, pl 3.7 3.3 - 4.9 mmol/L [facility] Chloride 109 97 - 110 mmol/L [facility] CO2 24 22 - 32 mmol/[facility] Anion gap 9 2 - 15 mmol/L [facility] BUN 25 6 - 25 mg/dL [facility] Creatinine 0.71(L) 0.80 - 1.30 mg/dL [facility] Glucose 134 70 - 199 mg/dL [facility] Comment: Interpretive Data Fasting glucose >/= 126 [...] 2022. Calcium 8.0(L) 8.5 - 10.3 mg/dL [facility] Blood 03/25/2024 5:05 AM CDT 03/25/2024 5:21 AM CDT Ernie Baldwin MD LAB BLOOD ORDERABLES Final Res ult Performing Organization Address City/[facility]/ZIP Co de Phone Number ORI STODDARD [phone] [address] [employer] [place], [place] [id number] * Magnesium (03/25/2024 5:05 AM CDT) Magnesium 1.9 1.4 - 2.5 mg/dL Blood 03/25/2024 5:05 AM CDT 03/25/2024 5:21 AM CDT Ernie Baldwin MD LAB BLOOD ORDERABLES Final Res ult Performing Organization Address City/[facility]/ZIP Co de Phone [facility] [address] [address] [employer] [place], [place] [id number] * (ABNORMAL) CBC without differential (03/25/2024 5:05 AM CDT) WBC 10.1(H) 3.8 - 9.9 K/cumm Hgb 7.4(L) 13.0 - 17.5 g/dL [facility] Hct 21.9(L) 38.9 - 50.3 % [facility] Plt 56(L) 150 - 400 K/cumm [facility] Comment:No clot detected in sample. MPV 11.7 9.1 - 12.3 fL [facility] RBC 2.49(L) 4.30 - 5.80 M/cumm [facility] MCV 88.0 81.3 - 96.4 fL [facility] MCH 29.7 27.1 - 33.3 pg [facility] MCHC 33.8 32.3 - 35.7 g/dL [facility] RDW CV 13.9 11.1 - 14.9 % [facility] RDW SD 44.1 35.7 - 48.1 fL [facility] NRBC abs 0.00 0.00 - 0.01 K/cumm [facility] Blood 03/25/2024 5:05 AM CDT 03/25/2024 5:21 AM CDT Ernie Baldwin MD LAB BLOOD ORDERABLES Final Res ult Performing Organization Address [facility] de Phone Number [facility] [address] [address] [facility] [place] [place] [address] * Transfuse RBC (03/25/2024 3:13 AM CDT) Blood Result [facility] Ernie Baldwin MD BLOOD TRANSFUSION ORDERABLES F inal Result Performing Organization Address [facility] de Phone Number [facility] [address] [address] [facility] [place] [place] [address] * POCT glucose (03/25/2024 2:32 AM CDT) Glucose, POC 132 70 - 199 mg/dL Blood 03/25/2024 2:32 AM CDT 03/25/2024 2:32 AM CDT Result [facility] Ernie Baldwin MD LAB POCT ORDERABLES - DEVICE F inal Result Performing Organization Address [facility] de Phone Number [facility] [address] [address] [facility] [place] [place] [address] * POCT glucose (03/24/2024 9:22 PM CDT) Glucose, POC 140 70 - 199 mg/dL Blood 03/24/2024 9:22 PM CDT 03/24/2024 9:22 PM CDT Ernie Baldwin MD LAB POCT ORDERABLES - DEVICE F inal Result Performing Organization Address [facility] de Phone Number ORI [address] [address] [facility] [place] [place] [address] * POCT glucose (03/24/2024 5:52 PM CDT) [facility] Glucose, POC 117 70 - 199 mg/dL Blood 03/24/2024 5:52 PM CDT 03/24/2024 5:52 PM CDT Ernie Baldwin MD LAB POCT ORDERABLES - DEVICE F inal Result Performing Organization Address [facility] de Phone Number ROI [address] [address] [facility] [place] [place] [address] * Prepare RBC: 1 Units (03/24/2024 3:57 PM CDT) [facility] Product code [id number] Unit Number [id number] 1-W [facility] Product Blood Type BPOS [facility] Dispense Status RETURNED [facility] Blood 03/24/2024 3:57 PM CDT Narrative [facility] - 03/26/2024 12:05 AM CDT Are special requirements needed? (All products are leukoreduced and CMV- safe)- >No Date required:-[id number] LRRBC # of [id number] Reasons:-Hgb <7 g/dL} Ernie Baldwin MD BLOOD BANK PRODUCT ORDERABLES Final Result Performing Organization Address [facility] [facility] de Phone Number OIR [address] [address] [facility] [place] [address] * eGFR (03/24/2024 2:01 PM CDT) [facility] eGFR >90 >=60 mL/min/1. 73 m2 Comment: [...] MD LAB BLOOD ORDERABLES Final Res ult [facility] [address] [address] [place] [address] * (ABNORMAL) CBC without differential (03/24/2024 2:01 PM CDT) WBC 11.6(H) 3.8 - 9.9 K/cumm Hgb 6.9(L) 13.0 - 17.5 g/dL [facility] Hct 19.6(L) 38.9 - 50.3 % [facility] Plt 54(L) 150 - 400 K/cumm [facility] MPV 11.3 9.1 - 12.3 fL [facility] RBC 2.27(L) 4.30 - 5.80 M/cumm [facility] MCV 86.3 81.3 - 96.4 fL [facility] MCH 30.4 27.1 - 33.3 pg [facility] MCHC 35.2 32.3 - 35.7 g/dL [facility] RDW CV 13.4 11.1 - 14.9 % [facility] CH RDW SD 42.4 35.7 - 48.1 fL [facility] NRBC abs 0.00 0.00 - 0.01 K/cumm [facility] Blood 03/24/2024 2:01 PM CDT 03/24/2024 2:13 PM CDT Ernie Baldwin MD LAB BLOOD ORDERABLES Final Res ult Performing Organization Address [facility] Co de Phone Number BANDARRIO [address] [address] [place] [address] * (ABNORMAL) Phosphorus (03/24/2024 2:01 PM CDT) Phosphorus, pl 1.4(L) 2.3 - 4.5 mg/dL Blood 03/24/2024 2:01 PM CDT 03/24/2024 2:14 PM CDT Ernie Baldwin MD LAB BLOOD ORDERABLES Final Res ult Performing Organization Address [facility] Co de Phone Number [facility] [address] [address] [place] [place] [address] * Magnesium (03/24/2024 2:01 PM CDT) Magnesium 1.9 1.4 - 2.5 mg/dL Blood 03/24/2024 2:01 PM CDT 03/24/2024 2:14 PM CDT Ernie Baldwin MD LAB BLOOD ORDERABLES Final Res ult Performing Organization Address [facility] Co de Phone Number [facility] [address] [address] Department of [employer] [place], [place] [id number] * (ABNORMAL) Basic metabolic panel (03/24/2024 2:01 [...] 2022. Calcium 8.0(L) 8.5 - 10.3 mg/dL [facility] Blood 03/24/2024 2:01 PM CDT 03/24/2024 2:14 PM CDT Ernie Baldwin MD LAB BLOOD ORDERABLES Final Res ult Performing Organization Address [facility]/ZIP Co de Phone Number ORI STODDARD [address] [address] [place] [place] [address] * (ABNORMAL) POCT glucose (03/24/2024 12:41 PM CDT) Glucose, POC 231(H) 70 - 199 mg/dL Blood 03/24/2024 12:4 1 PM CDT 03/24/2024 12:41 PM CDT Ernie Baldwin MD LAB POCT ORDERABLES - DEVICE F inal Result Performing Organization Address City/[facility]/ZIP Co de Phone Number ORI STODDARD [address] [address] [place] Department [place] [address] * POCT glucose (03/24/2024 7:38 AM CDT) Glucose, POC 192 70 - 199 mg/dL Blood 03/24/2024 7:38 AM CDT 03/24/2024 7:38 AM CDT Ernie Baldwin MD LAB POCT ORDERABLES - [place] [address] [place] Department [place] [address] * Critical Care (03/24/2024 7:13 AM CDT) [...] plan with the ICU team and other medical/pricing consultant staff, making frequent assessments and decisions [...] LAB BLOOD ORDERABLES Final Res ult ORI [address] [address] [place] [address] * (ABNORMAL) Basic metabolic panel (03/24/2024 4:06 AM CDT) Sodium 140 135 - 145 mmol/L Potassium, pl 3.9 3.3 - 4.9 mmol/L [facility]I Chloride 109 97 - 110 mmol/L [facility] CO2 20(L) 22 - 32 mmol/L [facility] Anion gap 11 2 - 15 mmol/L [facility] BUN 19 6 - 25 mg/dL [facility] Creatinine 0.68(L) 0.80 - 1.30 mg/dL [facility] Glucose 173 70 - 199 mg/dL [facility] Comment: Interpretive Data Fasting glucose >/= 126 [...] 2022. Calcium 8.4(L) 8.5 - 10.3 mg/dL [facility] Blood 03/24/2024 4:06 AM CDT 03/24/2024 4:24 AM CDT Ernie Baldwin MD LAB BLOOD ORDERABLES Final Res ult Performing Organization Address [facility] Co de Phone Number [facility] [address] [employer] [place] [address] * Magnesium (03/24/2024 4:06 AM CDT) Pathologist [facility] Magnesium 2.0 1.4 - 2.5 mg/dL Blood 03/24/2024 4:06 AM CDT 03/24/2024 4:24 AM CDT Ernie Baldwin MD LAB BLOOD ORDERABLES Final Res ult Performing Organization Address City/[facility] Co de Phone Number [facility] [address] [address] [place] [place] [address] * (ABNORMAL) CBC without differential (03/24/2024 4:06 AM CDT) WBC 10.9(H) 3.8 - 9.9 K/cumm Hgb 7.1(L) 13.0 - 17.5 g/dL [facility] Hct 20.0(L) 38.9 - 50.3 % [facility] Plt 54(L) 150 - 400 K/cumm [facility] Comment:No clot detected in sample. MPV 11.3 9.1 - 12.3 fL [facility] RBC 2.35(L) 4.30 - 5.80 M/cumm [facility] MCV 85.1 81.3 - 96.4 fL [facility] MCH 30.2 27.1 - 33.3 pg [facility] MCHC 35.5 32.3 - 35.7 g/dL [facility] RDW CV 13.5 11.1 - 14.9 % [facility] RDW SD 42.3 35.7 - 48.1 fL [facility] NRBC abs 0.00 0.00 - 0.01 K/cumm [facility] Blood 03/24/2024 4:06 AM CDT 03/24/2024 4:23 AM CDT us Ernie Baldwin MD LAB BLOOD ORDERABLES Final Res ult ORI STOD[place] [address] [address] [place] [address] * XR Chest 1 View (03/24/2024 4:00 [...] removed. ??The distal tip off the retracted Allison-Stevie catheter is in the superior vena cava. [...] removed. The distal tip off the retracted Allison-Stevie catheter is in the superior vena cava. [...] DEVICE F inal Result Performing Organization Address City/State/[facility] Phone Number [facility] [address] [facility] Department [place] [address] * Critical Care (03/23/2024 11:23 [...] plan with the ICU team and other medical/pricing consultant staff, making frequent assessments and decisions [...] inal Result Performing Organization Address [facility] Co de Phone Number ORI STODDARD [address] [address] [place] Department [facility] [place] [address] * POCT glucose (03/23/2024 4:23 PM CDT) Glucose, POC 134 70 - 199 mg/dL Blood 03/23/2024 4:23 PM CDT 03/23/2024 4:23 PM CDT Ernie Baldwin MD LAB POCT ORDERABLES - DEVICE F inal Result Performing Organization Address [facility] Co de Phone Number ORI STODDARD [address] [address] [place] Department [place] [address] * POCT glucose (03/23/2024 1:48 PM CDT) Glucose, POC 111 70 - 199 mg/dL Blood 03/23/2024 1:48 PM CDT 03/23/2024 1:48 PM CDT Ernie Baldwin MD LAB POCT ORDERABLES - DEVICE F inal Result ORI [address] [address] [place] [address] * eGFR (03/23/2024 1:00 PM CDT) eGFR [...] Organization Address City/[facility]/ZIP Co de Phone Number ORI STODDARD [address] [place] [address] * Magnesium (03/23/2024 1:00 PM CDT) Pathologist [facility] Magnesium 1.7 1.4 - 2.5 mg/dL Blood 03/23/2024 1:00 PM CDT 03/23/2024 1:14 PM CDT Ernie Baldwin MD LAB BLOOD ORDERABLES Final Res ult Performing Organization Address [facility] de Phone Number ORI STODDARD [address] [place] [address] * (ABNORMAL) CBC without differential (03/23/2024 1:00 PM CDT) WBC 9.9 3.8 - 9.9 K/cumm Hgb 7.1(L) 13.0 - 17.5 g/dL [facility] Hct 20.0(L) 38.9 - 50.3 % [facility] Plt 57(L) 150 - 400 K/cumm [facility] Comment:No clot detected in sample. MPV 10.2 9.1 - 12.3 fL [facility] RBC 2.35(L) 4.30 - 5.80 M/cumm [facility] MCV 85.1 81.3 - 96.4 fL [...] Organization Address City/[facility]/ZIP Co de Phone Number ORI STODDARD [address] [place] [employer] [place] [address] * (ABNORMAL) Basic metabolic panel (03/23/2024 1:00 PM CDT) Sodium 141 135 - 145 mmol/L Potassium, pl 3.8 3.3 - 4.9 mmol/L [facility] Chloride 114(H) 97 - 110 mmol/L [facility] CO2 21(L) 22 - 32 mmol/L [facility] Anion gap 6 2 - 15 mmol/L [facility] BUN 15 6 - 25 mg/dL [facility] Creatinine 0.59(L) 0.80 - 1.30 mg/dL [facility] Glucose 97 70 - 199 mg/dL [facility] Comment: Interpretive Data Fasting glucose >/= 126 [...] 2022. Calcium 7.3(L) 8.5 - 10.3 mg/dL [facility] Blood 03/23/2024 1:00 PM CDT 03/23/2024 1:14 PM CDT Ernie Baldwin MD LAB BLOOD ORDERABLES Final Res ult Performing Organization Address [facility] Co de Phone Number ORI STODDARD [address] [place] [place] [address] * POCT glucose (03/23/2024 11:08 AM CDT) Glucose, POC 122 70 - 199 mg/dL Blood 03/23/2024 11:0 8 AM CDT 03/23/2024 11:08 AM CDT Ernie Baldwin MD LAB POCT ORDERABLES - DEVICE F inal Result Performing Organization Address [facility] Co de Phone Number ORI STODDARD [address] [address] [place] [facility] [place] [address] * (ABNORMAL) Blood gas, arterial (03/23/2024 9:09 [...] Res ult Performing Organization Address [facility] de Phone Number ORI STODDARD [address] [address] [place] [facility] [place] [place] [address] * POCT glucose (03/23/2024 9:00 AM CDT) Glucose, POC 106 70 - 199 mg/dL Blood 03/23/2024 9:00 AM CDT 03/23/2024 9:00 AM CDT Ernie Baldwin MD LAB POCT ORDERABLES - DEVICE F inal Result Performing Organization Address [facility] Co de Phone Number ORI STODDADR [address] [address] [place] [facility] [place] [place] [address] * Critical Care (03/23/2024 7:44 AM CDT) [...] plan with the ICU team and other medical/pricing consultant staff, making frequent assessments and decisions [...] AM CDT) 03/23/2024 7:29 AM CDT Narrative [facility] - 03/23/2024 8:52 AM CDT Vent Rate: 69 bpm RR Interval: [address] Interval: 158 msec QRS Duration: 92 msec QT Interval: 377 msec QTC Interval: 397 msec P-R-T [place]: 65 - 59 - 54 degrees IMPRESSION: SINUS RHYTHM ST-elevation inferior and lateral leads, consider early repolarization, pericarditis injury When compared to March 18, [address]-elevation inferior leads has increased Electronically Signed By: Dr. Deedee Dejesus [facility] Ernie Baldwin MD ECG ORDERABLES Final Result [facility] * POCT glucose (03/23/2024 6:23 AM CDT) Glucose, POC 138 70 - 199 mg/dL Blood 03/23/2024 6:23 AM CDT 03/23/2024 6:23 AM CDT Ernie Baldwin MD LAB POCT ORDERABLES - DEVICE F inal Result BANDARRIO STODDARD [address] [address] [facility] [place] [address] * POCT glucose (03/23/2024 4:25 AM CDT) Glucose, POC 129 70 - 199 mg/dL Blood 03/23/2024 4:25 AM CDT 03/23/2024 4:25 AM CDT Ernie Baldwin MD LAB POCT ORDERABLES - DEVICE F inal Result Performing Organization Address [facility]/ZIP Co de Phone Number ORI [address] [address] [place] [address] * POCT glucose (03/23/2024 3:28 AM CDT) Glucose, POC 102 70 - 199 mg/dL Blood 03/23/2024 3:28 AM CDT 03/23/2024 3:28 AM CDT Ernie Baldwin MD LAB POCT ORDERABLES - DEVICE F inal Result Performing Organization Address City/[facility]/ZIP Co de Phone Number ORI [address] [place] [address] * XR Chest 1 View - in [...] the endotracheal tube, nasogastric tube and retracted Allison-Stevie catheter. Heart not enlarged. ??No failure. ??No [...] the endotracheal tube, nasogastric tube and retracted Allison-Stevie catheter. Heart not enlarged. No failure. No [...] POCT ORDERABLES - DEVICE F inal Result [facility] [address] [address] [place] [address] * Oxyhemoglobin, pulmonary artery (03/23/2024 2:18 AM CDT) Oxyhemoglobin, PA 60.2 % Comment: Interpretive Data No reference range established. Current interpretive data was last revised 2019. Blood 03/23/2024 2:18 AM CDT 03/23/2024 2:19 AM CDT Ernie Baldwin MD LAB BLOOD ORDERABLES Final Res ult ORI [address] [address] Department of Laboratories [place] [phone] * eGFR (03/23/2024 2:12 AM CDT) eGFR [...] Organization Address City/[facility] Co de Phone Number ORI STODDARD [address] [place] Department [place] [address] * (ABNORMAL) Basic metabolic panel (03/23/2024 2:12 AM CDT) Pathologist [facility] Sodium 143 135 - 145 mmol/L Potassium, pl 4.5 3.3 - 4.9 mmol/L [facility] Chloride 113(H) 97 - 110 mmol/L [facility] CO2 22 22 - 32 mmol/L [facility] Anion gap 8 2 - 15 mmol/L [facility] BUN 15 6 - 25 mg/dL [facility] Creatinine 0.74(L) 0.80 - 1.30 mg/dL [facility] Glucose 121 70 - 199 mg/dL [facility] Comment: Interpretive Data Fasting glucose >/= 126 [...] 2022. Calcium 9.1 8.5 - 10.3 mg/dL [facility] Blood 03/23/2024 2:12 AM CDT 03/23/2024 2:19 AM CDT Ernie Baldwin MD LAB BLOOD ORDERABLES Final Res ult Performing Organization Address [facility] Co de Phone Number ORI STODDARD [address] [address] [place] [address] * Magnesium (03/23/2024 2:12 AM CDT) Magnesium 1.9 1.4 - 2.5 mg/dL Blood 03/23/2024 2:12 AM CDT 03/23/2024 2:19 AM CDT Ernie Baldwin MD LAB BLOOD ORDERABLES Final Res ult Performing Organization Address City/[facility]/ZIP Co de Phone Number ORI STODDARD [address] [address] Department [facility] [place] [address] * (ABNORMAL) CBC without differential (03/23/2024 2:12 AM CDT) Pathologist [facility] WBC 14.5(H) 3.8 - 9.9 K/cumm Hgb 9.5(L) 13.0 - 17.5 g/dL [facility] Hct 27.0(L) 38.9 - 50.3 % [facility] Plt 96(L) 150 - 400 K/cumm [facility] MPV 10.2 9.1 - 12.3 fL [facility] RBC 3.14(L) 4.30 - 5.80 M/cumm [facility] MCV 86.0 81.3 - 96.4 fL [facility] MCH 30.3 27.1 - 33.3 pg [facility] MCHC 35.2 32.3 - 35.7 g/dL [facility] RDW CV 13.4 11.1 - 14.9 % [facility] RDW SD 42.0 35.7 - 48.1 fL [facility] NRBC abs 0.00 0.00 - 0.01 K/cumm [facility] Blood 03/23/2024 2:12 AM CDT 03/23/2024 2:19 AM CDT Ernie Baldwin MD LAB BLOOD ORDERABLES Final Res ult Performing Organization Address City/[facility]/ZIP Co de Phone Number ORI [address] [facility] [place] [address] * POCT glucose (03/23/2024 1:16 AM CDT) Pathologist [facility] Glucose, POC 138 70 - 199 mg/dL Blood 03/23/2024 1:16 AM CDT 03/23/2024 1:16 AM CDT Ernie Baldwin MD LAB POCT ORDERABLES - DEVICE F inal Result Performing Organization Address [facility] Co de Phone Number ORI RICHI [address] [address] [facility] [place] [address] * POCT glucose (03/23/2024 12:05 AM CDT) Glucose, POC 139 70 - 199 mg/dL Blood 03/23/2024 12:0 5 AM CDT 03/23/2024 12:05 AM CDT Result [facility] Ernie Baldwin MD LAB POCT ORDERABLES - DEVICE F inal Result Performing Organization Address [facility] de Phone Number ORI STODDARD [address] [address] [place] [facility] [place] [place] [address] * (ABNORMAL) Protime-INR (03/22/2024 11:32 PM CDT) [...] ORDERABLES Fi nal Result Performing Organization Address [facility] Co de Phone Number ORI STODDARD [address] [address] [facility] [place] [place] [address] * Fibrinogen (03/22/2024 11:32 PM CDT) Fibrinogen 236 170 - 400 mg/dL Blood 03/22/2024 11:3 2 PM CDT 03/22/2024 11:35 PM CDT Marlo Portillo NP LAB BLOOD ORDERABLES Fi nal Result Performing Organization Address [facility] de Phone Number [facility] [address] [address] [place] [address] * POCT glucose (03/22/2024 11:09 PM CDT) Glucose, POC 124 70 - 199 mg/dL Blood 03/22/2024 11:0 9 PM CDT 03/22/2024 11:09 PM CDT Ernie Baldwin MD LAB POCT ORDERABLES - DEVICE F inal Result Performing Organization Address [facility] Phone Number ORI [address] [address] [place] [address] * Critical Care (03/22/2024 10:40 PM CDT) [...] plan with the ICU team and other medical/pricing consultant staff, making frequent assessments and decisions [...] consultants and the medical staff Marlo Portillo 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 IN CLINIC/BEDSIDE ORDER [place] Final Result * POCT glucose (03/22/2024 10:15 PM CDT) Glucose, POC 137 70 - 199 mg/dL Blood 03/22/2024 10:1 5 PM CDT 03/22/2024 10:15 PM CDT Ernie Baldwin MD LAB POCT ORDERABLES - DEVICE F inal Result Performing Organization Address [facility] Co de Phone Number ORI STODDARD [address] [address] [place] [employer] [place] [address] * Oxyhemoglobin, pulmonary artery (03/22/2024 9:51 PM CDT) Oxyhemoglobin, PA 56.4 % Comment: Interpretive Data No reference range established. Current interpretive data was last revised 2019. Blood 03/22/2024 9:51 PM CDT 03/22/2024 9:54 PM CDT Ernie Baldwin MD LAB BLOOD ORDERABLES Final Res ult Performing Organization Address City/[facility] [place] [address] [address] [place] Department [facility] [place], [place] [id number] * XR Chest 1 Vw Portable (03/22/2024 9:48 PM CDT) Anatomical Region Laterality Modality Body, Chest N/A Computed Radiogr aphy 03/23/2024 8:18 AM CDT Impressions 03/23/2024 8:18 AM CDT Suspicion of a right effusion. Electronically signed by: aHmzah Mackey M.D. Narrative 03/23/2024 8:18 AM CDT [...] unchanged good position. ??The tip of the Allison-Stevie catheter is in the undivided main pulmonary [...] unchanged good position. The tip of the Allison-Stevie catheter is in the undivided main pulmonary [...] Res ult Performing Organization Address [facility] Co de Phone Number ORI STODDARD [address] [address] [place] Department [facility] [place], [place] [id number] * eGFR (03/22/2024 9:47 PM CDT) eGFR [...] Organization Address City/[facility]/ZIP Co de Phone Number ORI STODDARD [address] [address] [place] [place] [address] * (ABNORMAL) Blood gas, arterial (03/22/2024 9:47 PM CDT) Pathologist [facility] pH, Art 7.38 7.35 - 7.45 PCO2, Arterial 40 35 - 45 mmHg [facility] PO2, Arterial 161(H) 83 - 108 [...] Res ult Performing Organization Address [facility] Co de Phone Number [facility] [address] [address] [place] [address] * Lactate (03/22/2024 9:47 PM CDT) [facility] Lactate 0.9 0.7 - 2.0 mmol/L Blood 03/22/2024 9:47 PM CDT 03/22/2024 9:48 PM CDT Ernie Baldwin MD LAB BLOOD ORDERABLES Final Res ult Performing Organization Address [facility] de Phone Number [facility] [address] [address] [place] [address] * (ABNORMAL) CBC without differential (03/22/2024 9:47 PM CDT) [facility] WBC 12.8(H) 3.8 - 9.9 K/cumm Hgb 9.3(L) 13.0 - 17.5 g/dL [facility] Hct 26.4(L) 38.9 - 50.3 % [facility] Plt 101(L) 150 - 400 K/cumm [facility] MPV 10.0 9.1 - 12.3 fL [facility] RBC 3.04(L) 4.30 - 5.80 M/cumm [facility] MCV 86.8 81.3 - 96.4 fL [facility] MCH 30.6 27.1 - 33.3 pg [facility] MCHC 35.2 32.3 - 35.7 g/dL [facility] RDW CV 13.5 11.1 - 14.9 % [facility] RDW SD 42.7 35.7 - 48.1 fL [facility] NRBC abs 0.00 0.00 - 0.01 K/cumm [facility] Blood 03/22/2024 9:47 PM CDT 03/22/2024 9:49 PM CDT Ernie Baldwin MD LAB BLOOD ORDERABLES Final Res ult [facility] [address] [employer] [place] [address] * Magnesium (03/22/2024 9:47 PM CDT) [facility] Magnesium 2.2 1.4 - 2.5 mg/dL Blood 03/22/2024 9:47 PM CDT 03/22/2024 9:49 PM CDT Ernie Baldwin MD LAB BLOOD ORDERABLES Final Res ult Performing Organization Address [facility] Co de Phone Number [facility] [address] [address] [place] [place] [address] * (ABNORMAL) Basic metabolic panel (03/22/2024 9:47 PM CDT) Pathologist [facility] Sodium 145 135 - 145 mmol/L Potassium, pl 4.6 3.3 - 4.9 mmol/L [facility] Chloride 114(H) 97 - 110 mmol/L [facility] CO2 22 22 - 32 mmol/L [facility] Anion gap 9 2 - 15 mmol/L [facility] BUN 15 6 - 25 mg/dL [facility] Creatinine 0.85 0.80 - 1.30 mg/dL [facility] Glucose 143 70 - 199 mg/dL [facility] Comment: Interpretive Data Fasting glucose >/= 126 [...] 2022. Calcium 7.4(L) 8.5 - 10.3 mg/dL [facility] Blood 03/22/2024 9:47 PM CDT 03/22/2024 9:49 PM CDT Ernie Baldwin MD LAB BLOOD ORDERABLES Final Res ult Performing Organization Address [facility] de Phone Number [facility] [address] [address] [facility] [place] [address] * Transfuse RBC (03/22/2024 9:21 PM CDT) Blood Ernie Baldwin MD BLOOD TRANSFUSION ORDERABLES F inal Result Performing Organization Address [facility] Phone Number [facility] [address] [address] [facility] [place] [employer] [place] [address] * Transfuse RBC: 1 Units (03/22/2024 9:21 PM CDT) Blood Ernie Baldwin MD BLOOD TRANSFUSION ORDERABLES F inal Result * POCT glucose (03/22/2024 9:11 PM CDT) [facility] Signature Glucose, POC 165 70 - 199 mg/dL Blood 03/22/2024 9:11 PM CDT 03/22/2024 9:11 PM CDT Ernie Baldwin MD LAB POCT ORDERABLES - DEVICE F inal Result Performing Organization Address [facility] Co de Phone Number ORI STODDARD [address] [place] [place] [address] * Transfuse plasma Standard plasma (03/22/2024 8:59 PM CDT) Blood Ernie Baldwin MD BLOOD TRANSFUSION ORDERABLES F inal Result Performing Organization Address [facility] Co de Phone Number ORI STODDARD [address] [place] [address] * Transfuse plasma: 1 Units Standard plasma (03/22/2024 8:59 PM CDT) Blood Ernie Baldwin MD BLOOD TRANSFUSION ORDERABLES F inal Result * POCT glucose (03/22/2024 8:04 PM CDT) [facility] Signature Glucose, POC 171 70 - 199 mg/dL Blood 03/22/2024 8:04 PM CDT 03/22/2024 8:04 PM CDT Ernie Baldwin MD LAB POCT ORDERABLES - DEVICE F inal Result Performing Organization Address [facility] Co de Phone Number ORI STODDARD [address] [place] [address] * Transfuse RBC (03/22/2024 7:36 PM CDT) Blood Ernie Baldwin MD BLOOD TRANSFUSION ORDERABLES F inal Result Performing Organization Address City/[facility]/ZIP Co de Phone Number ORI STODDARD [address] [facility] [place] [place] [address] * Transfuse RBC: 1 Units (03/22/2024 7:36 PM CDT) Blood Ernie Baldwin MD BLOOD TRANSFUSION ORDERABLES F inal Result * Transfuse cryoprecipitate (pooled units) (03/22/2024 7:00 PM CDT) Blood Ernie Baldwin MD BLOOD TRANSFUSION ORDERABLES F inal Result Performing Organization Address [facility] Co de Phone Number ORI STODDARD [address] [place] [address] * Transfuse cryoprecipitate (pooled units): 2 Units (03/22/2024 7:00 PM CDT) Blood Ernie Baldwin MD BLOOD TRANSFUSION ORDERABLES F inal Result * POCT glucose (03/22/2024 6:49 PM CDT) Glucose, POC 169 70 - 199 mg/dL Blood 03/22/2024 6:49 PM CDT 03/22/2024 6:49 PM CDT Ernie Baldwin MD LAB POCT ORDERABLES - DEVICE F inal Result Performing Organization Address [facility] Co de Phone Number BANDARRIO STODDARD [address] [address] [facility] [place] [address] * Transfuse cryoprecipitate (pooled units) (03/22/2024 6:46 PM CDT) Blood Ernie Baldwin MD BLOOD TRANSFUSION ORDERABLES F inal Result Performing Organization Address City/[facility]/ZIP Co de Phone Number ORI [address] [place] [address] * POCT glucose (03/22/2024 6:01 PM CDT) Glucose, POC 151 70 - 199 mg/dL Blood 03/22/2024 6:01 PM CDT 03/22/2024 6:01 PM CDT Ernie Baldwin MD LAB POCT ORDERABLES - DEVICE F inal Result ORI STODDARD [address] of [employer] [place], [place] [id number] * Prepare cryoprecipitate (pooled units): 2 Units (03/22/2024 5:40 PM CDT) Product code [id number] [facility] Unit Number [id number] [facility] Product Blood Type APOS [facility] Dispense Status PRESUMED TRANSFUSED [facility] Product code [id number] Unit Number [id number] [facility] Product Blood Type APOS [facility] Dispense Status PRESUMED TRANSFUSED [facility] Blood (Blood, Venous) 03/22/2024 5:40 PM CDT Narrative [facility] - 03/22/2024 10:15 PM CDT Cryo # of [id number] Reasons:-Fibrinogen <= 150 mg/dL AND active hemorrhage} Ernie Baldwin MD BLOOD BANK PRODUCT ORDERABLES Final Result ORI STODDARD [address] Department of Laboratories [place], [place] [id number] * (ABNORMAL) Blood gas, arterial (03/22/2024 5:35 [...] Res ult Performing Organization Address [facility] Co de Phone Number ORI [address] [address] [place] [place] [address] * (ABNORMAL) CBC without differential (03/22/2024 5:35 PM CDT) WBC 16.1(H) 3.8 - 9.9 K/cumm Hgb 8.0(L) 13.0 - 17.5 g/dL [facility] Hct 23.1(L) 38.9 - 50.3 % [facility] Plt 124(L) 150 - 400 K/cumm [facility] MPV 9.7 9.1 - 12.3 fL [facility] RBC 2.66(L) 4.30 - 5.80 M/cumm [facility] MCV 86.8 81.3 - 96.4 fL [facility] MCH 30.1 27.1 - 33.3 pg [facility] MCHC 34.6 32.3 - 35.7 g/dL [facility] RDW CV 13.8 11.1 - 14.9 % [facility] RDW SD 43.4 35.7 - 48.1 fL [facility] NRBC abs 0.00 0.00 - 0.01 K/cumm [facility] Blood 03/22/2024 5:35 PM CDT 03/22/2024 5:38 PM CDT Ernie Baldwin MD LAB BLOOD ORDERABLES Final Res ult Performing Organization Address [facility] de Phone Number ORI STODDARD [address] [place] [place] [address] * POCT glucose (03/22/2024 4:40 PM CDT) Glucose, POC 137 70 - 199 mg/dL Blood 03/22/2024 4:40 PM CDT 03/22/2024 4:40 PM CDT Ernie Baldwin MD LAB POCT ORDERABLES - DEVICE F inal Result ORI STODDARD [address] [place] [address] * eGFR (03/22/2024 3:11 PM CDT) eGFR [...] BLOOD ORDERABLES Final Res ult ORI STODDARD [address] Department of Laboratories [place], [place] [id number] * Magnesium (03/22/2024 3:11 PM CDT) Pathologist [facility] Magnesium 2.4 1.4 - 2.5 mg/dL Blood 03/22/2024 3:11 PM CDT 03/22/2024 3:16 PM CDT Ernie Baldwin MD LAB BLOOD ORDERABLES Final Res ult Performing Organization Address [facility] Co de Phone Number ORI STODDARD [address] [address] [facility] [place] [place] [address] * (ABNORMAL) Fibrinogen (03/22/2024 3:11 PM CDT) Fibrinogen 156(L) 170 - 400 mg/dL Blood 03/22/2024 3:11 PM CDT 03/22/2024 3:17 PM CDT Result [facility] Ernie Baldwin MD LAB BLOOD ORDERABLES Final Res ult Performing Organization Address [facility] de Phone Number ORI STODDARD [address] [address] [facility] [place] [place] [address] * (ABNORMAL) Protime-INR (03/22/2024 3:11 PM CDT) [...] PM CDT 03/22/2024 3:17 PM CDT Result [facility] Ernie Baldwin MD LAB BLOOD ORDERABLES Final Res ult Performing Organization Address [facility] Co de Phone Number ORI STODDARD [address] [address] [facility] [place] [place] [address] * aPTT (03/22/2024 3:11 PM CDT) aPTT [...] Res ult Performing Organization Address [facility] Co de Phone Number ORI [address] [employer] [place] [address] * (ABNORMAL) Blood gas, arterial [...] Res ult Performing Organization Address [facility] Co de Phone Number ORI STODDARD [address] [employer] [place] [address] * Calcium, ionized, whole blood (03/22/2024 3:11 PM CDT) Ca, ionized, bld 4.64 4.50 - 5.10 mg/dL Blood 03/22/2024 3:11 PM CDT 03/22/2024 3:16 PM CDT Ernie Baldwin MD LAB BLOOD ORDERABLES Final Res ult ORI STODDARD [address] [address] [place] [address] * (ABNORMAL) Basic metabolic panel (03/22/2024 3:11 PM CDT) Sodium 143 135 - 145 mmol/L Potassium, pl 4.4 3.3 - 4.9 mmol/L [facility] Chloride 111(H) 97 - 110 mmol/L [facility] CO2 24 22 - 32 mmol/L [facility] Anion gap 8 2 - 15 mmol/L [facility] BUN 12 6 - 25 mg/dL [facility] Creatinine 0.80 0.80 - 1.30 mg/dL [facility] Comment:Icteric sample, test results may be affected. Glucose 137 70 - 199 mg/dL [facility] Comment: Interpretive Data Fasting glucose >/= 126 [...] 2022. Calcium 7.8(L) 8.5 - 10.3 mg/dL [facility] Blood 03/22/2024 3:11 PM CDT 03/22/2024 3:16 PM CDT Ernie Baldwin MD LAB BLOOD ORDERABLES Final Res ult Performing Organization Address City/[facility]/ZIP Co de Phone Number ORI STODDARD [address] Department [place] [address] * (ABNORMAL) CBC without differential (03/22/2024 3:11 PM CDT) WBC 14.0(H) 3.8 - 9.9 K/cumm Hgb 10.2(L) 13.0 - 17.5 g/dL [facility] Hct 28.5(L) 38.9 - 50.3 % [facility] Plt 121(L) 150 - 400 K/cumm [facility] MPV 9.7 9.1 - 12.3 fL [facility] RBC 3.33(L) 4.30 - 5.80 M/cumm [facility] MCV 85.6 81.3 - 96.4 fL [facility] MCH 30.6 27.1 - 33.3 pg [facility] MCHC 35.8(H) 32.3 - 35.7 g/dL [facility] RDW CV 13.6 11.1 - 14.9 % [facility] RDW SD 42.4 35.7 - 48.1 fL [facility] NRBC abs 0.00 0.00 - 0.01 K/cumm [facility] Blood 03/22/2024 3:11 PM CDT 03/22/2024 3:17 PM CDT Ernie Baldwin MD LAB BLOOD ORDERABLES Final Res ult Performing Organization Address City/[facility]/ZIP Co de Phone Number ORI STODDARD [address] [address] [employer] [place], [place] [id number] * POCT glucose (03/22/2024 2:03 PM CDT) Pathologist [facility] Glucose, POC 114 70 - 199 mg/dL Blood 03/22/2024 2:03 PM CDT 03/22/2024 2:03 PM CDT Ernie Baldwin MD LAB POCT ORDERABLES - DEVICE F inal Result Performing Organization Address City/[facility]/ZIP Co de Phone Number ORI STODDARD [address] [facility] [place] [address] * Transfuse platelets (03/22/2024 1:07 PM CDT) Blood Ernie Baldwin MD BLOOD TRANSFUSION ORDERABLES F inal Result Performing Organization Address [facility] Co de Phone Number ORI STODDARD [address] [address] Department of [employer] [place], [place] [phone] * Transfuse platelets: 1 Units (03/22/2024 1:07 PM CDT) Blood Ernie Baldwin MD BLOOD TRANSFUSION ORDERABLES F inal Result * POCT glucose (03/22/2024 1:00 PM CDT) Glucose, POC 119 70 - 199 mg/dL Blood 03/22/2024 1:00 PM CDT 03/22/2024 1:00 PM CDT Ernie Baldwin MD LAB POCT ORDERABLES - DEVICE F inal Result Performing Organization Address [facility] de Phone Number ORI STODDARD [phone] [address] [place] [place] [address] * XR Chest 1 View (03/22/2024 12:48 [...] in good position. ??The tip of a Allison-Stevie catheter is in the undivided main pulmonary [...] in good position. The tip of a Allison-Stevie catheter is in the undivided main pulmonary [...] Res ult Performing Organization Address [facility] Co de Phone Number ORI STODDARD [address] [address] [facility] [employer] [place], [place] [phone] * (ABNORMAL) Magnesium (03/22/2024 12:31 PM CDT) Magnesium 2.7(H) 1.4 - 2.5 mg/dL Blood 03/22/2024 12:3 1 PM CDT 03/22/2024 12:36 PM CDT Ernie Baldwin MD LAB BLOOD ORDERABLES Final Res ult Performing Organization Address [facility] Co de Phone Number ORI STODDARD [address] [address] [facility] [place] [place] [address] * aPTT (03/22/2024 12:31 PM CDT) aPTT [...] Res ult Performing Organization Address [facility] Co de Phone Number ORI STODDARD [address] [address] [facility] [employer] [place], [place] [phone] * (ABNORMAL) Protime-INR (03/22/2024 12:31 PM CDT) PT 15.6(H) 9.7 - 13.0 sec INR 1.43(H) 0.90 - 1.20 [facility] Comment: Interpretive data Oral anticoagulant therapeutic ranges: Venous thromboembolism prophylaxis or treatment: 2.0-3.0 CARDIOLOGY Standard range: 2.0-3.0 High-intensity range: 2.5-3.5 Refer to indication-specific guidelines for appropriate target ranges for prosthetic heart valve replacement. Current interpretive data was last revised on 2019. Blood 03/22/2024 12:3 1 PM CDT 03/22/2024 12:36 PM CDT Ernie Baldwin MD LAB BLOOD ORDERABLES Final Res ult ORI [address] [place] [address] * (ABNORMAL) CBC without differential (03/22/2024 12:31 PM CDT) WBC 10.8(H) 3.8 - 9.9 K/cumm Hgb 11.8(L) 13.0 - 17.5 g/dL [facility] Hct 33.2(L) 38.9 - 50.3 % [facility] Plt 85(L) 150 - 400 K/cumm [facility] MPV 9.5 9.1 - 12.3 fL [facility] RBC 3.88(L) 4.30 - 5.80 M/cumm [facility] MCV 85.6 81.3 - 96.4 fL [facility] MCH 30.4 27.1 - 33.3 pg [facility] MCHC 35.5 32.3 - 35.7 g/dL [facility] RDW CV 13.5 11.1 - 14.9 % [facility] RDW SD 41.8 35.7 - 48.1 fL [facility] NRBC abs 0.00 0.00 - 0.01 K/cumm [facility] Blood 03/22/2024 12:3 1 PM CDT 03/22/2024 12:36 PM CDT Ernie Baldwin MD LAB BLOOD ORDERABLES Final Res ult Performing Organization Address [facility] Co de Phone Number ORI STODDARD [phone] [address] [place] [place] [address] * (ABNORMAL) Blood gas, arterial (03/22/2024 12:31 [...] Res ult Performing Organization Address [facility] Co de Phone Number ORI STODDARD [address] [address] [place] [place] [address] * (ABNORMAL) Basic metabolic panel (03/22/2024 12:31 PM CDT) Sodium 141 135 - 145 mmol/L Potassium, pl 4.7 3.3 - 4.9 mmol/L [facility] Chloride 109 97 - 110 mmol/L [facility] CO2 23 22 - 32 mmol/L [facility] Anion gap 9 2 - 15 mmol/L [facility] BUN 12 6 - 25 mg/dL [facility] Creatinine 0.77(L) 0.80 - 1.30 mg/dL CERNER [...] Organization Address City/[facility]/ZIP Co de Phone Number ORI [address] [address] [place] [address] * POCT glucose (03/22/2024 12:30 PM CDT) Glucose, POC 120 70 - 199 mg/dL Blood 03/22/2024 12:3 0 PM CDT 03/22/2024 12:30 PM CDT Ernie Baldwin MD LAB POCT ORDERABLES - DEVICE F inal Result Performing Organization Address [facility] Co de Phone Number ORI [address] [address] [facility] [place] [address] * Calcium, ionized, whole blood (03/22/2024 12:30 PM CDT) Ca, ionized, bld 4.74 4.50 - 5.10 mg/dL Blood 03/22/2024 12:3 0 PM CDT 03/22/2024 1:00 PM CDT Ernie Baldwin MD LAB BLOOD ORDERABLES Final Res ult Performing Organization Address [facility] Co de Phone Number BANDARRIO [address] [address] [place] [address] * (ABNORMAL) POC Blood Gas and Chemistries, [...] ORDERABLES - DEVICE F inal Result ORI [address] [address] [place] [address] * Critical Care (03/22/2024 11:16 AM CDT) Narrative Dequan Keller MD - 03/22/2024 11:16 AM CDT Albania Jones NP ? 03/22/2024 ??4:21 PM Critical Care Performed by: Albania Jones NP Authorized by: Albania Jones 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 ?? CRITICAL CARE: ??Team: ??CHNE ??Shift: ??AM [...] plan with the ICU team and other medical/pricing consultant staff, making frequent assessments and decisions [...] Time, High Range (03/22/2024 11:15 AM CDT) [facility] ACT 104 87 - 138 sec Blood 03/22/2024 11:1 5 AM CDT 03/22/2024 11:15 AM CDT Ernie Baldwin MD LAB BLOOD ORDERABLES Final Res ult [facility] [address] [place] [address] * (ABNORMAL) POC Blood Gas and Chemistries, Arterial - (03/22/2024 10:38 AM CDT) [facility] pH, Art POC 7.33(L) 7.35 - 7.45 [...] POCT ORDERABLES - DEVICE F inal Result [address] Department [place] [address] * Surgical pathology (03/22/2024 10:38 AM CDT) Tissue (Heart Valve) 03/22/2024 9:41 AM CDT Narrative PATHOLOGY CH - 03/25/2024 1:40 PM CDT [facility] results best viewed via link to PDF [facility] Department of Pathology [address] [place] [address] Note to Patients: This report may [...] Final Report Patient Name: ??STEPHAN MADDEN Address: ??[address] [place] [address], ??[place], [place] ??[address] Gender: ??M : ??1965 (Age: 58) Service: ??Cardiothoracic Location: ?? [facility] Hospital #: ??[id number] Patient Type: ?? IP Accession # ?[id number] Taken: ??03/22/2024 Received: ??03/23/2024 Accessioned: ??03/23/2024 Reported: [...] determined by the Surgical Pathology Department at [facility] as part of an ongoing quality engineer program and in compliance with federally mandated [...] characteristics determined by the Surgical Pathology Department [facility]. ??It has not been cleared or approved by the U. S. Food and Drug Administration. Note for decalcified specimens: This assay has not been validated on decalcified tissues. Results should be interpreted with caution given the possibility of false negativity on decalcified specimens Ernie Baldwin MD LAB PATHOLOGY ORDERABLES Final Result [facility] [address] [place] [address] * (ABNORMAL) POC Activated Clotting Time, High Range (03/22/2024 10:36 AM CDT) ACT 546(H) 87 - 138 sec Blood 03/22/2024 10:3 6 AM CDT 03/22/2024 10:36 AM CDT Ernie Baldwin MD LAB BLOOD ORDERABLES Final Res ult [facility] [address] [address] Department [place] [address] * (ABNORMAL) POC Blood Gas and Chemistries, [...] inal Result Performing Organization Address [facility] Co de Phone Number [facility] [address] [address] Department [place] [address] * (ABNORMAL) POC Activated Clotting Time, High Range (03/22/2024 10:10 AM CDT) ACT 672(H) 87 - 138 sec Blood 03/22/2024 10:1 0 AM CDT 03/22/2024 10:10 AM CDT Ernie Baldwin MD LAB BLOOD ORDERABLES Final Res ult ORI STODDARD [address] [place] [address] * (ABNORMAL) Platelet count (03/22/2024 10:10 AM CDT) Plt 100(L) 150 - 400 K/cumm Blood 03/22/2024 10:1 0 AM CDT 03/22/2024 10:14 AM CDT Ernie Baldwin MD LAB BLOOD ORDERABLES Final Res ult ORI STODDARD [address] [address] [place] [address] * (ABNORMAL) POC Blood Gas and Chemistries, [...] inal Result Performing Organization Address [facility] Co de Phone Number BANDARRIO STODDARD [address] [address] [facility] [place] [place] [address] * (ABNORMAL) POC Activated Clotting Time, High Range (03/22/2024 9:34 AM CDT) ACT 805(H) 87 - 138 sec Blood 03/22/2024 9:34 AM CDT 03/22/2024 9:34 AM CDT Ernie Baldwin MD LAB BLOOD ORDERABLES Final Res ult Performing Organization Address [facility] de Phone Number ORI RICHI [address] [address] [place] [address] * (ABNORMAL) POC Activated Clotting Time, High Range (03/22/2024 9:02 AM CDT) ACT 918(H) 87 - 138 sec Blood 03/22/2024 9:02 AM CDT 03/22/2024 9:02 AM CDT Ernie Baldwin MD LAB BLOOD ORDERABLES Final Res ult Performing Organization Address [facility] Co de Phone Number BANDARRIO STODDARD [address] [address] [place] [address] * (ABNORMAL) POC Blood Gas and Chemistries, [...] inal Result Performing Organization Address [facility] Co de Phone Number [facility] [address] [address] [facility] [place] [address] * POC Activated Clotting Time, High Range (03/22/2024 8:36 AM CDT) Pathologist [facility] ACT 98 87 - 138 sec Blood 03/22/2024 8:36 AM CDT 03/22/2024 8:36 AM CDT Ernie Baldwin MD LAB BLOOD ORDERABLES Final Res ult Performing Organization Address [facility] Co de Phone Number [facility] [address] [address] [place] [address] * Protime-INR (03/22/2024 6:46 AM CDT) [facility] PT 12.3 9.7 - 13.0 sec INR [...] CDT 03/22/2024 6:46 AM CDT Ranjit Fernández 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 LAB BLOOD ORDERABLES Final Result Performing Organization Address City/[facility]/ZIP Co de Phone Number ORI STODDARD [address] [employer] [place] [address] * Type and screen (03/22/2024 6:24 AM CDT) Pathologist [facility] ABO Rh B Positive Beatriz, indirect Negative [facility] Blood 03/22/2024 6:24 AM CDT 03/22/2024 6:46 AM CDT Narrative ORI - 03/22/2024 7:26 AM CDT Has the patient had Daratumumab or Isatuximab in the past 6 months?->Unknown Re Hicks 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 LAB BLOOD BANK TEST ORDER DINORA Final Result Performing Organization Address City/[facility]/ZIP Co de Phone Number ORI STODDARD [address] [address] [employer] [place], [place] [id number] * Prepare plasma: 2 Units Standard plasma (03/22/2024 6:00 AM CDT) Pathologist [facility] Product code [id number] Unit Number [id number] [facility] Product Blood Type BPOS [facility] Dispense Status PRESUMED TRANSFUSED [facility] Blood (Blood, Venous) 03/22/2024 6:00 AM CDT Narrative ORI - 03/22/2024 10:15 PM CDT Specify Procedure:->AVR Is this plasma order intended for a COVID-19 patient as convalescent plasma?->Standard plasma Special Requirements Needed?->No Date required:-20240322 FFP # of Units:-2-Units Reasons:-Hold for procedure (specify procedure)} Re Hicks 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 BANK PRODUCT ORDERA BLES Final Result Performing Organization Address [facility] de Phone Number [facility] [address] [address] [facility] [employer] [place], [place] [id number] * Prepare platelets: 2 Units (03/22/2024 6:00 AM CDT) Product code [id number] Unit Number [id number] [facility] Product Blood Type OPOS [facility] Dispense Status PRESUMED TRANSFUSED [facility] Blood (Blood, Venous) 03/22/2024 6:00 AM CDT Narrative [facility] CH - 03/22/2024 10:15 PM CDT Specify Procedure:->AVR Are special requirements needed? (all products are leukoreduced)->No Date required:-20240322 PLT # of Units:-2-Units Reasons:-Hold for procedure (specify procedure)} Re Hicks 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 BLOOD BANK PRODUCT ORDERA BLES Final Result Performing Organization Address [facility] [facility] de Phone Number ORI [phone] [address] [facility] [employer] [place], [place] [id number] * Prepare RBC: 4 Units (03/22/2024 6:00 AM CDT) Product code [id number] [facility]ER [facility] Unit Number [id number] [facility] Product Blood Type BPOS [facility] Dispense Status PRESUMED TRANSFUSED [facility] Product code [id number] Unit Number [id number] [facility] Product Blood Type BPOS [facility] Dispense Status PRESUMED TRANSFUSED [facility] Product code [id number] [facility] Unit Number [id number] [facility]ERN[facility] Product Blood Type BPOS CERN[facility] Dispense Status RETURNED [facility] Product code [id number] [facility]ERNER CH Unit Number [id number] [facility] Product Blood Type BPOS [facility] Dispense Status PRESUMED TRANSFUSED [facility] Blood 03/22/2024 6:00 AM CDT Narrative ORI STODDARD - 03/26/2024 12:05 AM CDT Specify Procedure:->AVR Are special requirements needed? (All products are leukoreduced and CMV- safe)- >No Date required:-[id number] LRRBC # of [id number] Reasons:-Hold for procedure (specify procedure)} us Re Hicks NP BLOOD BANK PRODUCT ORDERA BLES Final Result [facility] [address] Department of Laboratories [place], [place] [id number] documented in this encounter Visit Diagnoses Diagnosis [...] (CANCELED) 2.5 mg, nebulization, Every 6 hours (corporate responsibility officer), First dose on Thu03/22/24 at 1500, Indications: Bronchospastic Pulmonary Disease 0240 (Given - Provider: Sole Louis RRT)0811 (Given - Provider: Shemran Easton RRT)1421 (Given - Provider: Sherman Easton [...] 03/22/2024 documented in this encounter Care Teams Tie In Hand Relationship Specialty Start Date End Date Carolyn Davis MD [address] [facility] [address] [place] [address] PCP - General 10/31/15 documented as of this encounter
--- OUTSIDE RECORDS SUMMARY | 2024-07-19 22:20 | XMS_ITS | Encounter Summary ---
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
--- OUTSIDE RECORDS SUMMARY | 2024-07-19 22:20 | XMS_ITS | Encounter Summary ---
Author Organization [facility] Address [address] [facility] [address] [place] [address] Phone Care Team Providers Care Eligibility Technician Name Role Phone Carolyn Davis MD Primary Care Provider Reason for Visit * Reason Onset Date Comments Hospitalization / TIA 03/09/2024 Encounter Details Date Type Department Care Team (Late st Contact Info) Description 03/09/2024 Documentation [facility] Surgery [address] [facility] [address] [place] [address] Re Hicks NP [address] [facility] [id number] [place] [address] Hospitalization / TIA Social History [...] on file 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 Patient has AVR coming up on the . Patient had MRI today which was negative per patient's navigating officer group who saw him today. We will have patient come to the office next week on 03/17 to see how heis doing. He is going to be started on Coumadin as he will be on this postoperatively.Likely surgery will be pushed out 4 weeks however will surgeon see patient and go from there. We will call patient today. Re Hicks CONSTRUCTION REPRESENTATIVE documented in this encounter Plan of Treatment Not on file documented as of this encounter Visit Diagnoses Not on filedocumented in this encounter Care Teams Eligibility Technician Relationship Specialty Start Date End Date Carolyn Davis MD [address] [address] PCP - General 10/31/15 documented as of this encounter
--- OUTSIDE RECORDS SUMMARY | 2024-07-19 22:20 | XMS_ITS | Encounter Summary ---
Author Organization [facility] Healthcare Address [address] [place] [address] Care Team Providers Care Dry Chain Operator Name Role Phone Carolyn Davis MD Primary Care Provider Reason for Visit * Auth/Cert Specialty Diagnoses / Procedures Referred By Kary mata Referred To Contact Diagnoses Nonrheumatic aortic valve stenosis Nonrheumatic aortic valve stenosis [I35.0] Procedures LEFT HEART CATHETERIZATION WITH CORONARY ANGIOGRAPHY AND WITH OR WITHOUT LEFT VENTRICULOGRAM [address] Referral ID Status Reason Start Date Expiration Date Visits Re quested Visits Authorized [id number] 1 1 Encounter Details Date Type Department Care Team (Latest Contact Info) Description 02/23/2024 7:13 AM CDT - 02/23/2024 12:42 PM CDT Hospital Encounter [facility] Cardiac Catheterization Lab [address] [place] [address] Tom De Jesus MD [facility] [address] Nonrheumatic aortic valve stenosis Discharge Disposition: Discharge [...] on file 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 - No driving for 2 days after [...] remember to ask them during your visits. [facility] TR band documented in this [...] aortic valve. Patient was brought to the laboratory geneticist today for preAVR cardiac catheterization Past Medical History: Diagnosis Date Atrial fibrillation (CMS/HCC) ([facility]) Depression Heart murmur HX OTHER MEDICAL Hypertension Nonrheumatic aortic (valve) stenosis Paroxysmal SVT (supraventricular tachycardia) ([facility]) Seizures ([facility]) 1 x 3-4 years ago d/t ETHO [...] Eve Cota MSN, RN, AGPCNP-C Cardiothoracic Surgery [facility] Office: documented in this [...] and your doctor have chosen [facility] for your surgery. We hope that the following information will help make your visit a pleasant one. Surgery Date: 02/23/2024 Arrive at 6:30 A.M. [facility] Surgery [facility] (look for sign reading ???EMERGENCY - SURGERY CENTER?? ) [address] [place] [address] Before your surgery: Notify your doctor of [...] is not recommended by your physician). Fish Oil/Gladstone 3, Co Q 10, Cod Liver Oil, [...] soap (Example: Dove Antibacterial soap, Gold Dial, Sinhala Spring, Zest, Safeguard, Coast) wash your body [...] insurance cards, and medication list (including all vire-ylx-pssqzot medications) with you. Prescriptions can be filled [...] aortic valve. ??Patient was brought to the laboratory geneticist today for pre aortic valve replacement cardiac catheterization. Benefits and risks of the procedure were discussed with the patient in depth, and informed consent was taken prior to the procedure. ??Risks of the procedure include but are not limited to vascular complications like groin hematoma, retroperitoneal bleed, vessel perforation; periprocedural NJ, cardiac arrhythmias, stroke, contrast induced nephropathy, and . ?? After discussing all the benefits, risks and alternatives, patient was willing to proceed with the procedure. PROCEDURES PERFORMED: Selective left and right coronary angiogram Ultrasound-guided right radial access (CPT 91989) Moderate sedation-CPT code 71001 MODERATE SEDATION: Midazolam 2 mg , Fentanyl 50 mcg, start time ?0940 stop time ?? 1003, total direct tctx-el-okdp monitoring of conscious sedation ?23 minutes (CPT 27998) TRAINED OBSERVER: Eve Jeffers RN was trained observer for moderate sedation. ACCESS SITE: ??Right radial artery PROCEDURE: ??After obtaining informed consent, patient was brought to the laboratory geneticist and prepped and draped in the usual sterile manner. ??Time-out and immediate reassessment of the patient was performed. ??After local anesthesia with lidocaine, right radial artery access was taken with micropuncture needle followed by insertion of a 6 Macedonian sheath over a 0.035 inch wire. ??Selective [...] was used to complete this document, therefore, aircraft engine installer variances may occur. Tom De Jesus MD, [facility] 02/23/24 Tom De Jesus MD CV CARDIAC [...] 02/23/2024 documented in this encounter Care Teams Dry Chain Operator Relationship Specialty Start Date End Date Carolyn Davis MD [address] [facility] [address] [place] [address] PCP - General 10/31/15 documented as of this encounter
--- OUTSIDE RECORDS SUMMARY | 2024-07-19 22:20 | XMS_ITS | Encounter Summary ---
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 Murray at [place]. CC: L hand ataxia and weakness concern [...] on filedocumented in this encounter Care Teams Silk Finisher Relationship Specialty Start Date End Date Carolyn Davis MD [address] [place] [address] PCP - General 10/31/15 documented as of this encounter
--- OUTSIDE RECORDS SUMMARY | 2024-07-19 22:21 | XMS_ITS | Encounter Summary ---
Author Organization [facility] Medical Group Address [address] [facility] [address] [place] [address] Care Team Providers Care Order Management Specialist Name Role Phone Carolyn Davis MD Primary Care Provider Encounter Details Date Type Department Care Team (Late st Contact Info) Description 08/19/2017 Orders Only [facility] [address] [facility] [address] [place] [address] Provider, MD Damian [address] [place], [place] [phone] Social History Tobacco Use Types Packs/Day Years Used Date Smoking Tobacco: Every Day Cigarettes Smokeless Tobacco: Never Alcohol Use Standard Drinks/Week Comments No 0 (1 standard drink = 0.6 oz pur e alcohol) Sex and Gender Information Value Date Recorded Sex Assigned at Not on file 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
--- OUTSIDE RECORDS SUMMARY | 2024-07-19 22:21 | XMS_ITS | Encounter Summary ---
Author Organization 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
--- OUTSIDE RECORDS SUMMARY | 2024-07-19 22:21 | XMS_ITS | Encounter Summary ---
Author Organization [facility] Medical Group Address [address] [facility] [address] [place] [address] Care Team Providers Care Well Drill Operator Name Role Phone Carolyn Davis MD [...] W CONTRAST Tom De Jesus MD [address] [address] Phone: tel: fax: [address] [phone] Referral ID Status Reason Start Date Expiration Date Visits Re quested Visits Authorized [id number] Closed 08/28/2021 09/27/2022 1 1 ARCHIVIST Encounter Details Date Type Department Care Team (Late st Contact Info) Description 08/28/2021 Telephone [facility] Medical Group Cardiology [address] [address] [address] [place] [address] Tom De Jesus MD [address] [place] [phone] Social History Tobacco Use Types Packs/Day Years Used Date Smoking Tobacco: Every Day Cigarettes Smokeless Tobacco: Never Alcohol Use Standard Drinks/Week Comments No 0 (1 standard drink = 0.6 oz pur e alcohol) Sex and Gender Information Value Date Recorded Sex Assigned at Not on file Legal 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 Dx: r/o bicuspid aortic stenosis Pt to arrive at 0800. No labs needed, no hold medications. COVID test at [facility] on 09/10 ([phone]) Graphics at [facility] aware- verified date and time Pre-procedure instructions reviewed with patient in office. Pt verbalized understanding. ARCHIVIST documented in this encounter Plan of Treatment Not on file documented as of this encounter Results * TRANSESOPHAGEAL ECHO (JAVIER) W DOPPLER/CF WO CONTRAST (09/13/2021 10:45 AM FILM ARCHIVIST) BSA 2.3 m2 CONS SCIMAGE Anatomical Region Laterality Modality Ultrasound Narrative 09/13/2021 11:54 AM FILM ARCHIVIST TRANSESOPHAGEAL ECHOCARDIOGRAM DATE OF PROCEDURE: 09/13/21 INDICATION [...] 1043, total time ?? 21 minutes (CPT 56974) ANESTHESIA: ??Versed. ??3 mg, ??Fentanyl ??75mcg, Benzocaine Elberta, ??Viscous lidocaine. ??Elizabeth Ding RN was trained [...] was used to complete this document, therefore, zoo caretaker variances may occur. Tom De Jesus MD, [facility] 09/13/21 Tom De Jesus MD CV ECHO PROCEDURES Final Result documented in this encounter Visit Diagnoses Diagnosis Aortic valve stenosis, etiology of cardiac valve disease unspecified- Primary Aortic valve stenosis, etiology of cardiac valve disease unspecified documented in this encounter Care Teams Well Drill Operator Relationship Specialty Start Date End Date Carolyn Davis MD [address] [facility] [address] [place] [address] PCP - General 10/31/15 documented as of this encounter
--- OUTSIDE RECORDS SUMMARY | 2024-07-19 22:21 | XMS_ITS | Encounter Summary ---
Author Organization [facility] Medical Group Address [address] [facility] [address] [place] [address] Care Team Providers Care Shipping Inspector Name Role Phone Carolyn Davis MD Primary Care Provider Encounter Details Date Type Department Care Team (Late st Contact Info) Description 02/17/2022 Orders Only [facility] Health Information Management [address] [place] [address] Scanning, Provider Social History Tobacco Use Types Packs/Day Years Used Date Smoking Tobacco: Every Day Cigarettes Smokeless Tobacco: Never Alcohol Use Standard Drinks/Week Comments No 0 (1 standard drink = 0.6 oz pur e alcohol) Sex and Gender Information Value Date Recorded Sex Assigned at Not on file 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
--- OUTSIDE RECORDS SUMMARY | 2024-07-19 22:21 | XMS_ITS | Encounter Summary ---
Author Organization [facility] Medical Group Address [address] [facility] [address] [place] [address] Care Team Providers Care Operations Clerk Name Role Phone Raghu Corral MD Primary Care Provider Reason for Visit * Diagnostic Imaging (Routine) - Closed Specialty Diagnoses / Procedures Referred By Kary mata Referred To Contact Cardiology Imaging Diagnoses Murmur, heart Procedures Transthoracic Echo Complete W Doppler/CF Lizette Swift NP Phone: tel: fax: [facility] Medical [facility] Cardiology [address] [place] [address] Phone: tel: fax: Referral ID Status Reason Start Date Expiration Date Visits Re quested Visits Authorized [id number] Closed 07/19/2018 01/28/2020 1 1 Encounter Details Date Type Department Care Team (Late st Contact Info) Description 07/29/2018 3:00 PM SEMICONDUCTOR WAFERS MARKER Ancillary Procedure [facility] Medical [facility] Cardiology [address] [facility] [address] [place] [address] Murmur, heart Social History Tobacco Use Types Packs/Day Years Used Date Smoking Tobacco: Every Day Cigarettes Smokeless Tobacco: Never Alcohol Use Standard Drinks/Week Comments No 0 (1 standard drink = 0.6 oz pur e alcohol) Sex and Gender Information Value Date Recorded Sex Assigned at Not on file Legal Sex Male 1:59 AM SEMICONDUCTOR WAFERS MARKER Gender Identity Not on file Sexual Orientation Not on file documented as of this encounter Plan of Treatment Not on file documented as of this encounter Procedures Procedure Name Priority Date/Time Associated Diagnosis Comments TRANSTHORACIC ECHO (TTE) COMPLETE W DOPPLER/CF W CONTRAST Routine 07/29/2018 3:45 PM SEMICONDUCTOR WAFERS MARKER Murmur, heart documented in this encounter Results * TRANSTHORACIC ECHO (TTE) COMPLETE W DOPPLER/CF W CONTRAST (07/29/2018 3:45 PM SEMICONDUCTOR WAFERS MARKER) Anatomical Region Laterality Modality Ultrasound 07/29/2018 2:06 PM SEMICONDUCTOR WAFERS MARKER Narrative 07/29/2018 4:33 PM SEMICONDUCTOR WAFERS MARKER [facility] [address] [facility] [address] [phone] [facility] [address], [place] [address] P:[phone] P:[phone] Echocardiographic Report Patient Name: STEPHAN NUNEZ : [birth year] Study Date: 07/29/2018 2:06:40 PM Gender: M Tech: Location: [place] Ref.Physician: RAGHU CORRAL Height(Cm): 183 BSA: 2.29 [...] Site: Exam was interpreted at [facility]. Left Ventricle: Normal left ventricular systolic function. [...] Signed By: Rommel Simmons MD 2018-07-29 16:33:53 SEMICONDUCTOR WAFERS MARKER CC: CC: Procedure Note Rommel Simmons MD - 07/29/2018 [facility] [address], [place] [address] [address], [place] [address] P:[phone] P:[phone] Echocardiographic Report Patient Name: STEPHAN NUNEZPatient ID: [id number] : [id number] Date: 07/29/2018 2:06:40 PM Gender: MAccession #: [id number] Tech: GMLocation: [place] Ref.Physician: Job CORRALight(Cm): 183 BSA: 2.29Weight(Kg): 107.5 [...] 0.40 - 0.80 ] m/s MV Decel Ojqj270 [ 150 - 200 ] msec E'0.12 E/E' 9 Findings: Interpretation Site: Exam was interpreted at [facility]. Left Ventricle: Normal left ventricular systolic function. [...] Signed By: Rommel Simmons MD 2018-07-29 16:33:53 SEMICONDUCTOR WAFERS MARKER CC: CC: Lizette Swift VRT MECHANIC CV ECHO PROCEDURES Final Result documented in [...] For 1 dose Given 07/29/2018 3:55 PM SEMICONDUCTOR WAFERS MARKER 1 mL documented in this encounter Care Teams Operations Clerk Relationship Specialty Start Date End Date Raghu Corral MD [address] [place] [address] PCP - General 10/31/15 documented as of this encounter
--- OUTSIDE RECORDS SUMMARY | 2024-07-19 22:21 | XMS_ITS | Encounter Summary ---
Author Organization [facility] Medical Group Address [address] [facility] [address] [place] [address] Care Team Providers Care Media Services Director Name Role Phone Carolyn Davis MD Primary Care Provider Reason for Referral * Cardiology (Routine) - Closed Specialty Diagnoses / Procedures Referred By Kary mata Referred To Contact Diagnoses Mild aortic stenosis Procedures Transthoracic Echo Complete W Doppler/CF Tom Bal MD [address] [place] [address] Phone: tel: fax: [facility] Medical Group Referral ID Status Reason Start Date Expiration Date Visits Re quested Visits Authorized [id number] Closed 12/14/2019 06/24/2021 1 1 Reason for Visit * Reason Comments Follow-up yearly follow up on PSVT, , HTN, murmur, dyslipidemia Encounter Details Date Type Department Care Team (Latest Contact Info) Description 12/14/2019 2:15 PM CDT Office Visit [facility] Medical Group Cardiology [address] [facility] [address] [place] [address] Tom Bal MD [address] [place] [address] PSVT (paroxysmal supraventricular tachycardia) (CMS/HCC) [...] on file Legal Sex Male 1:59 AM GAS PUMPER Gender Identity Not on file Sexual Orientation [...] PSVT, anxiety/panic attacks. Patient was seen in [facility] on 06/22/15 when he presented with complaints [...] W DOPPLER/CF W CONTRAST (08/17/2020 10:13 AM GAS PUMPER) Anatomical Region Laterality Modality Ultrasound 08/17/2020 8:58 AM GAS PUMPER Narrative 08/17/2020 12:32 PM GAS PUMPER [facility] Medical Group Cardiology [address], [place] [address] [address], [place] [address] P:[phone] P:[phone] Echocardiographic Report Patient Name: STEPHAN NUNEZ : 1965 Study Date: 08/17/2020 8:58:30 AM Gender: M Tech: GM Location: [place] Ref.Provider: SHAYNA Height(Cm): 180 BSA: 2.29 Weight(Kg): [...] Findings: Interpretation Site: Exam was interpreted at [facility] [place]. Left Ventricle: Normal left ventricular [...] Signed By: Rommel Simmons MD 2020-08-17 12:32:52 GAS PUMPER Procedure Note Rommel Simmons MD - 08/17/2020 [facility] Medical Group Cardiology [address] [facility] [address], [place] [address] [address] [facility] [address], [place] [address] P:[phone] P:[phone] Echocardiographic Report Patient Name: STEPHAN NUNEZPatient ID: [id number] : [id number] Date: 08/17/2020 8:58:30 AM Gender: Maureencession #: [id number] Tech: GMLocation: [place] Ref.Provider: ARANZATANKayleight(Cm): 180 BSA: 2.29Weight(Kg): 109.77 Heart [...] m/s ACS MM 1.25 cm MV Decel Ayti526 [ 150 - 200 ] msec PV Peak Vel0.56 [ 0.40 - 0.80 ] m/s E'0.16 E/E' 5 Findings: Interpretation Site: Exam was interpreted at [facility] [place]. Left Ventricle: Normal left ventricular [...] Signed By: Rommel Simmons MD 2020-08-17 12:32:52 GAS PUMPER us Tom Bal MD CV ECHO PROCEDURES [...] documented as of this encounter Care Teams Media Services Director Relationship Specialty Start Date End Date Carolyn Davis MD [address] [facility] [address] [place] [address] PCP - General 10/31/15 documented as of this encounter
--- OUTSIDE RECORDS SUMMARY | 2024-07-19 22:21 | XMS_ITS | Encounter Summary ---
Author Organization [facility] Address [address] [place] [address] Care Team Providers Care Button Sawyer Name Role Phone Carolyn Davis MD Primary Care Provider Reason for Visit * Reason Comments Follow-up 3 mo f/u on PSVT. HT N, and anxiety Encounter Details Date Type Department Care Team (Latest Contact Info) Description 11/04/2017 10:15 AM CDT Office Visit [facility] [address] [place] [address] Tom De Jesus MD [address] [id number] PSVT (paroxysmal supraventricular tachycardia) (CMS/HCC) (Primary Dx); [...] on file Legal Sex Male 1:59 AM BARTENDERS Gender Identity Not on file Sexual Orientation [...] PSVT, anxiety/panic attacks. Patient was seen in [facility] on 06/22/15 when he presented with complaints [...] 02/15/2024 added in this encounter Care Teams Button Sawyer Relationship Specialty Start Date End Date Carolyn Davis MD [address] [facility] [address] [place] [address] PCP - General 10/31/15 documented as of this encounter
--- OUTSIDE RECORDS SUMMARY | 2024-07-19 22:21 | XMS_ITS | Encounter Summary ---
Author Organization [facility] Address [address] [place] [address] Care Team Providers Care Research Project Coordinator Name Role Phone Carolyn Davis MD Primary Care Provider Reason for Referral * Cardiology (Routine) - Closed Specialty Diagnoses / Procedures Referred By Contac t Referred To Contact Diagnoses PSVT (paroxysmal supraventricular tachycardia) (HCC) Palpitations Procedures MCT Mobile Cardiac Telemetry Event Monitor Tom De Jesus MD [address] [place] [address] Phone: tel: fax: [facility] Referral ID Status Reason Start Date Expiration Date Visits Re quested Visits Authorized [id number] Closed 08/20/2022 09/19/2023 1 1 THERAPIST Reason for Visit * Reason Comments Hypertension 1 year follow up. Encounter Details Date Type Department Care Team (Latest Contact Info) Description 08/20/2022 11:15 AM ART THERAPIST Office Visit [facility] Cardiology [address] [facility] [address] [place] [address] Tom De Jesus MD [address] [place] [address] Palpitations (Primary Dx); PSVT (paroxysmal [...] on file Legal Sex Male 1:59 AM ART THERAPIST Gender Identity Not on file Sexual Orientation Not on file documented as of this encounter Last Filed Vital Signs Vital Sign Reading Time Taken Comments Blood Pressure 120/70 08/20/2022 11:36 AM ART THERAPIST Pulse 83 08/20/2022 11:36 AM ART THERAPIST Temperature - - Respiratory Rate - - Oxygen Saturation 95% 08/20/2022 11:36 AM ART THERAPIST Inhaled Oxygen Concentration - - Weight 103.4 kg (228 lb) 08/20/2022 11:36 AM ART THERAPIST Height 180.3 cm (5' 11 ) 08/20/2022 11:36 AM ART THERAPIST Body Mass Index 31.8 08/20/2022 11:36 AM ART THERAPIST documented in this encounter Progress Notes * Tom De Jesus MD - 08/20/2022 11:15 AM CST [facility] FOLLOW UP 08/20/2022 Chief Complaint Patient presents with Hypertension 1 year follow up. 56 y.o. male with PSVT, anxiety/panic attacks. Patient was seen in [facility] on 06/22/15 when he presented with complaints of palpitationsthat started about one week prior to admission. He denied any chest pain, dizziness or loss of consciousness. In the ER, his EKG showed supraventricular tachycardia with a heart rate of 155 bpm. Patient apparently received beta atbitha and later diltiazem with improvement in his [...] last office visit, patient was admitted to [facility] on 02/16/2022 after he apparently [...] duplex-less than 50% stenosis bilateral ICA. 02/17/2022, [facility] Echo-normal LV size, EF 60-65%, grade 1 diastolic dysfunction, aortic stenosis, valve area 1.4 cm2,V max 2.62 m/sec, mean gradient 17 mmHg. 02/17/2022; Dr. [facility] Lipids-total cholesterol 227, HDL 34, [...] orders for this visit: Palpitations (Primary) - [facility] Mobile Cardiac Telemetry Event Monitor; Future PSVT (paroxysmal supraventricular tachycardia) (CMS/HCC) (HCC) - [facility] Mobile Cardiac Telemetry Event Monitor; Future Moderate [...] Will consider referral to electrophysiology after ambulatory potline monitor. Continue long-acting diltiazem for now. -previous hospitalization [...] dyslipidemia. -personally reviewed patient's hospital records from [facility] including notes, echo, imaging. Follow-up in 3 months or sooner if needed based on clinical course and ambulatory potline monitor findings. Tom De Jesus MD THERAPIST documented in this encounter Plan of Treatment Not on file documented as of this encounter Procedures Procedure Name Priority Date/Time Associated Diagnosis Comments POCT LIPID PANEL Routine 08/20/2022 11:5 0 AM ART THERAPIST Lipid screening documented in this encounter Results * MCT Mobile Cardiac Telemetry Event Monitor (08/20/2022 12:21 PM ART THERAPIST) Anatomical Region Laterality Modality Other Narrative 09/26/2022 12:17 PM ART THERAPIST Images from the original result were not included. AMBULATORY SALES LEADER REPORT Patient Name: Wyatt Madden Date of [...] 127BPM without any arrhythmias. Trey Wooten M.D., [facility] 09/26/22 Voice recognition software was used to complete this document, therefore, back hanger variances may occur. Procedure Note Trey Wooten MD - 09/26/2022 Images from the original note were not included. AMBULATORY SALES LEADER REPORT Patient Name: Wyatt Madden Date of [...] per minute and the maximum heart rate [id number] beats per minute. There was no evidence of atrial fibrillation/flutter, SVT, pauses, heartblocks, or ventricular tachycardia. No evidence of PACs. PVC burden is less than 1%. There were 5 patient triggered events. All 5 episodes were symptom otherthan listed that correlated to sinus rhythm with a heart rate range [id number] to 127BPM without any arrhythmias. Conclusions: Sinus rhythm with an average heart rate of 68 beats per minute. Theminimum heart rate was 50 beats per minute and the maximum heart rate [id number] beats per minute. No significant arrhythmias. Patient reported symptoms correlated to sinus rhythm with a heart raterange of 54BPM to 127BPM without any arrhythmias. Trey Wooten M.D., [facility] 09/26/22 Voice recognition software was used to complete this document, therefore,back hanger variances may occur. us Tom De Jesus MD CV CARDIAC SERVICES PROCEDURES F inal Result * POCT lipid panel (08/20/2022 11:50 AM ART THERAPIST) Cholesterol, POC 227 mg/dL HDL, POC 34 mg/dL Triglycerides, POC 258 mg/dL LDL Cholesterol POC 142 mg/dL Chol/HDL Ratio, POC 4.2 Non-HDL Cholesterol, POC 193 mg/dL Cholesterol Total, POC 227 mg/dL Capillary blood 08/20/2022 1 1:50 AM ART THERAPIST us Tom De Jesus MD POINT OF [...] Palpitations documented in this encounter Care Teams Research Project Coordinator Relationship Specialty Start Date End Date Carolyn Davis MD [address] [place] [address] PCP - General 10/31/15 documented as of this encounter
--- OUTSIDE RECORDS SUMMARY | 2024-07-19 22:21 | XMS_ITS | Encounter Summary ---
Author Organization [facility] Address [address] [place] [address] Care Team Providers Care Outsole Leveler Name Role Phone Carolyn Davis MD Primary Care Provider Encounter Details Date Type Department Care Team (Late st Contact Info) Description 09/13/2020 Telephone [facility] Cardiology [address] [place] [address] Tom De Jesus MD [address] [id number] Social History Tobacco Use Types Packs/Day Years Used Date Smoking Tobacco: Every Day Cigarettes Smokeless Tobacco: Never Alcohol Use Standard Drinks/Week Comments No 0 (1 standard drink = 0.6 oz pur e alcohol) Sex and Gender Information Value Date Recorded Sex Assigned at Not on file Legal Sex Male 1:59 AM GAS WELDER Gender Identity Not on file Sexual Orientation Not on file documented as of this encounter Miscellaneous Notes * Telephone Encounter - Angela Aguayo MA - 09/14/2020 3:55 PM CST Left msg that request was sent to pharmacy WELDER * Telephone Encounter - Tom De Jesus MD - 09/14/2020 3:19 PM CST That would be okay WELDER * Telephone Encounter - Angela Aguayo MA - 09/14/2020 9:53 AM CST Returned call and , Yumiko, states pt would like to start Chantix. Pharmacy: [facility]ya De Jesus, Please advise? Thank you WELDER * Telephone Encounter - Rosanna Ortiz - 09/13/2020 2:55 PM CST Pt called to discuss getting a new prescription for Chantix. WELDER documented in this encounter Plan of Treatment Not on file documented as of this encounter Visit Diagnoses Not on filedocumented in this encounter Care Teams Outsole Leveler Relationship Specialty Start Date End Date Carolyn Davis MD [address] [facility] [address] [place] [id number] PCP - General 10/31/15 documented as of this encounter
--- OUTSIDE RECORDS SUMMARY | 2024-07-19 22:21 | XMS_ITS | Encounter Summary ---
Author Organization [facility] Address [address] [place] [address] Care Team Providers Care Vascular Technologist Sonographer Name Role Phone Carolyn Davis MD Primary Care Provider Encounter Details Date Type Department Care Team (Late st Contact Info) Description 01/06/2022 Telephone [facility] Cardiology [address] [facility] [address] [place] [address] Lizette Quintero, HUY [address] [facility] [address] [place] [address] Social History Tobacco Use Types Packs/Day Years Used Date Smoking Tobacco: Every Day Cigarettes Smokeless Tobacco: Never Alcohol Use Standard Drinks/Week Comments No 0 (1 standard drink = 0.6 oz pur e alcohol) Sex and Gender Information Value Date Recorded Sex Assigned at Not on file Legal Sex Male 1:59 AM COST CONTROLLER Gender Identity Not on file Sexual [...] appointment with 1 of the electrophysiologists at [facility] * Telephone Encounter - Fabiana Ortega RN [...] a call from nurse to advise.Thank you Contact:[phone] documented in this encounter Plan of Treatment Not on file documented as of this encounter Visit Diagnoses Diagnosis PSVT (paroxysmal supraventricular tachycardia) (HCC)- Primary Paroxysmal supraventricular tachycardia documented in this encounter Care Teams Vascular Technologist Sonographer Relationship Specialty Start Date End Date Carolyn Davis MD [address] [facility] [address] [place] [id number] PCP - General 10/31/15 documented as of this encounter
--- OUTSIDE RECORDS SUMMARY | 2024-07-19 22:21 | XMS_ITS | Encounter Summary ---
Author Organization [facility] Address [address] [place] [address] Care Team Providers Care Hotel Breakfast Attendant Name Role Phone Carolyn Davis MD Primary Care Provider Encounter Details Date Type Department Care Team (Late st Contact Info) Description 09/19/2020 Telephone [facility] Cardiology [address] [place] [address] Tom De Jesus MD [address] [id number] Social History Tobacco Use Types Packs/Day Years Used Date Smoking Tobacco: Every Day Cigarettes Smokeless Tobacco: Never Alcohol Use Standard Drinks/Week Comments No 0 (1 standard drink = 0.6 oz pur e alcohol) Sex and Gender Information Value Date Recorded Sex Assigned at Not on file Legal Sex Male 1:59 AM SNAG GRINDER Gender Identity Not on file Sexual Orientation Not on file documented as of this encounter Miscellaneous Notes * Telephone Encounter - Kasandra Mattson MA - 09/20/2020 10:04 AM CST Spoke with Janice at [facility] in [place] and clarified the directions for the starter pack of Chantix. GRINDER * Telephone Encounter - Rosanna Ortiz - 09/19/2020 2:00 PM CST Pharm call to discuss the directions for pt Chantix kelechi 0.5 mg (11)-1mg (42) tabs. GRINDER documented in this encounter Plan of Treatment Not on file documented as of this encounter Visit Diagnoses Not on filedocumented in this encounter Care Teams Hotel Breakfast Attendant Relationship Specialty Start Date End Date Carolyn Davis MD [address] [facility] [address] [place] [address] PCP - General 10/31/15 documented as of this encounter
--- OUTSIDE RECORDS SUMMARY | 2024-07-19 22:21 | XMS_ITS | Encounter Summary ---
Author Organization [facility] Address [address] [address] Care Team Providers Care Risk Compliance Manager Name Role Phone Carolyn Davis MD Primary Care Provider Encounter Details Date Type Department Care Team (Late st Contact Info) Description 01/28/2022 Telephone [facility] [address] [facility] [address] [place] [phone] Georgi Ellis III, MD [address] [facility] [address], [place] [address] Social History Tobacco Use Types Packs/Day Years Used Date Smoking Tobacco: Every Day Cigarettes Smokeless Tobacco: Never Alcohol Use Standard Drinks/Week Comments No 0 (1 standard drink = 0.6 oz pur e alcohol) Sex and Gender Information Value Date Recorded Sex Assigned at Not on file Legal Sex Male 1:59 AM FOREIGN AGENT Gender Identity Not on file Sexual Orientation Not on file documented as of this encounter Miscellaneous Notes * Telephone Encounter - Lu Marmolejo - 01/28/2022 10:23 AM CDT Pt no showed appt with Dr Ellis on 01/21/22 documented in this encounter Plan of Treatment Not on file documented as of this encounter Visit Diagnoses Not on filedocumented in this encounter Care Teams Risk Compliance Manager Relationship Specialty Start Date End Date Carolyn Davis MD [address] [facility] [address] [place] [id number] PCP - General 10/31/15 documented as of this encounter
--- OUTSIDE RECORDS SUMMARY | 2024-07-19 22:21 | XMS_ITS | Encounter Summary ---
Author Organization [facility] Address [address] [place] [address] Care Team Providers Care Sheet Rock Taper Name Role Phone Carolyn Davis MD Primary [...] DOPPLER/CF W CONTRAST Tom De Jesus MD [facility] [address] Phone: tel: fax: [address] [phone] Referral ID Status Reason Start Date Expiration Date Visits Re quested Visits Authorized [id number] Closed 08/28/2021 09/27/2022 1 1 INTERVIEWER Reason for Visit * Cardiology (Routine) - [...] CONTRAST Tom De Jesus MD [address] [facility] [address] [place] [address] Phone: tel: fax: [address] [phone] Referral ID Status Reason Start Date Expiration Date Visits Re quested Visits Authorized [id number] Closed 08/28/2021 09/27/2022 1 1 Encounter Details Date Type Department Care Team (Latest Contact Info) Description 09/13/2021 8:25 AM JOB INTERVIEWER - 09/13/2021 11:59 PM JOB INTERVIEWER Hospital Encounter [facility] Cardiac Catheterization [facility] [address] [place] [address] Tom De Jesus MD [address] [address] [place] [address] Aortic valve stenosis, etiology of [...] on file Legal Sex Male 1:59 AM JOB INTERVIEWER Gender Identity Not on file Sexual Orientation Not on file documented as of this encounter Last Filed Vital Signs Vital Sign Reading Time Taken Comments Blood Pressure 163/84 09/13/2021 11:15 AM JOB INTERVIEWER Pulse 84 09/13/2021 11:30 AM JOB INTERVIEWER Temperature 36.9 ??C (98.4 ??F) 09/13/2021 8:56 AM CS T Respiratory Rate 20 09/13/2021 8:56 AM JOB INTERVIEWER Oxygen Saturation 96% 09/13/2021 11:30 AM JOB INTERVIEWER Inhaled Oxygen Concentration - - Weight 104.1 kg (229 lb 8 oz) 09/13/2021 8:56 AM JOB INTERVIEWER Height 182.9 cm (6') 09/13/2021 8:56 AM JOB INTERVIEWER Body Mass Index 31.13 09/13/2021 8:56 AM JOB INTERVIEWER documented in this encounter Discharge Instructions * Discharge Instructions* Elizabeth Ding, RN - 09/13/2021 11:08 AM JOB INTERVIEWER Moderate Sedation WHAT YOU NEED TO KNOW: [...] concerns or questions, please call your Physician. [phone] Dr. De Jesus INTERVIEWER documented in this encounter Medications at Time [...] for : * No procedures listed * INTERVIEWER Source Note - Tom De Jesus MD - 08/28/2021 1:45 PM JOB INTERVIEWER [facility] FOLLOW [facility] 08/28/2021 Chief Complaint Patient presents with ??? Follow-up PSVT- Aortic stenosis- 1 year fu 55 y.o. male with PSVT, anxiety/panic attacks. Patient was seen in [facility] on 06/22/15 when he presented with complaints [...] and JAVIER findings. Tom De Jesus MD INTERVIEWER documented in this encounter Miscellaneous Notes * Pre-Sedation Documentation - Tom De Jesus MD - 09/13/2021 10:00 AM JOB INTERVIEWER Sedation Plan ASA 2 - Mild systemic disease Mallampati class: III. Risks, benefits, and alternatives discussed with patient. INTERVIEWER documented in this encounter Plan of Treatment Not on file documented as of this encounter Procedures Procedure Name Priority Date/Time Associated Diagnosis Comments TRANSESOPHAGEAL ECHO (JAVIER) W DOPPLER/CF WO CONTRAST Routine 09/13/2021 10:45 AM JOB INTERVIEWER Aortic valve stenosis, etiology of cardiac valve disease unspecified documented in this encounter Results * TRANSESOPHAGEAL ECHO (JAVIER) W DOPPLER/CF WO CONTRAST (09/13/2021 10:45 AM JOB INTERVIEWER) BSA 2.3 m2 CONS SCIMAGE Anatomical Region Laterality Modality Ultrasound Narrative 09/13/2021 11:54 AM JOB INTERVIEWER TRANSESOPHAGEAL ECHOCARDIOGRAM DATE OF PROCEDURE: 09/13/21 INDICATION FOR PROCEDURE: ??Assessment of aortic stenosis BRIEF CLINICAL HISTORY: ??Wyatt Madden is a 55 y.o. male with PSVT, moderate aortic stenosis with AVA1.28 cm2 on 08/16/2021 echocardiogram, hypertension, anxiety/panic attacks; tobacco abuse. ?? Patient has dyspnea on moderate exertion. ??Recent echo showed moderate aortic stenosis. ??Due to relatively younger age of onset of aortic stenosis, JVAIER was recommended to rule out bicuspid aortic [...] 1043, total time ?? 21 minutes (CPT 48461) ANESTHESIA: ??Versed. ??3 mg, ??Fentanyl ??75mcg, Benzocaine [place], ??Viscous lidocaine. ??Elizabeth Ding RN was trained [...] was used to complete this document, therefore, drug inspector variances may occur. Tom De Jesus MD, [facility] 09/13/21 Tom De Jesus MD CV ECHO [...] Thu09/13/21 at 1019 Given 09/13/2021 10:19 AM JOB INTERVIEWER 2 sprays fentaNYL (SUBLIMAZE) preservative free injection intravenous, Code/trauma/sedation medication, Starting on Thu09/13/21 at 1022 Given 09/13/2021 10:27 AM JOB INTERVIEWER 25 mcg Given 09/13/2021 10:25 AM JOB INTERVIEWER 25 mcg Given 09/13/2021 10:22 AM JOB INTERVIEWER 25 mcg lidocaine viscous (XYLOCAINE) 2 % solution oral, Code/trauma/sedation medication, Starting on Thu09/13/21 at 1019 Given 09/13/2021 10:19 AM JOB INTERVIEWER 15 mL midazolam (VERSED) 1 mg/mL preservative free injection Administer over 2 Minutes, Code/trauma/sedation medication, Starting on Thu09/13/21 at 1022 Given 09/13/2021 10:27 AM JOB INTERVIEWER 1 mg Given 09/13/2021 10:25 AM JOB INTERVIEWER 1 mg Given 09/13/2021 10:22 AM JOB INTERVIEWER 1 mg sodium chloride 0.9% infusion intravenous, Code/trauma/sedation continuous med, Starting on Thu09/13/21 at 0930 New Bag 09/13/2021 9:30 AM JOB INTERVIEWER 50 mL/hr 50 mL/hr documented in this encounter Care Teams Sheet Rock Taper Relationship Specialty Start Date End Date Carolyn Davis MD [address] [facility] [address] [place] [address] PCP - General 10/31/15 documented as of this encounter
--- OUTSIDE RECORDS SUMMARY | 2024-07-19 22:21 | XMS_ITS | Encounter Summary ---
Author Organization [facility] Address [address] [place] [address] Care Team Providers Care Petroleum Terminal Plant Operator Name Role Phone Carolyn Davis MD Primary Care Provider Encounter Details Date Type Department Care Team (Late st Contact Info) Description 04/03/2023 Telephone [facility] Cardiology [address] [place] [phone] Jacqueline Uriostegui Social History Tobacco Use Types Packs/Day Years Used Date Smoking Tobacco: Every Day Cigarettes Smokeless Tobacco: Never Alcohol Use Standard Drinks/Week Comments No 0 (1 standard drink = 0.6 oz pur e alcohol) Sex and Gender Information Value Date Recorded Sex Assigned at Not on file Legal Sex Male 1:59 AM SALES CENTER MANAGER Gender Identity Not on [...] on filedocumented in this encounter Care Teams Petroleum Terminal Plant Operator Relationship Specialty Start Date End Date Carolyn Davis MD [address] [facility] [address] [place] [address] PCP - General 10/31/15 documented as of this encounter
--- OUTSIDE RECORDS SUMMARY | 2024-07-19 22:21 | XMS_ITS | Encounter Summary ---
Author Organization [facility] Medical Group Address [address] [place] [address] Care Team Providers Care Surgeon Partner Name Role Phone Raghu Corral MD Primary Care Provider Reason for Referral * Diagnostic Imaging (Routine) - Closed Specialty Diagnoses / Procedures Referred By Kary mata Referred To Contact Cardiology Imaging Diagnoses Murmur, heart Procedures Transthoracic Echo Complete W Doppler/CF Lizette Swift NP Phone: tel: fax: [facility] Medical [facility] Cardiology [address] [place] [phone] Phone: tel: fax: Referral ID Status Reason Start Date Expiration Date Visits Re quested Visits Authorized [id number] Closed 07/19/2018 01/28/2020 1 1 SCIENTIST Reason for Visit * Reason Comments Dizziness Encounter Details Date Type Department Care Team (Late st Contact Info) Description 07/19/2018 3:00 PM SOIL SCIENTIST Office Visit [facility] [address] [place] [phone] Lizette Swift NP [address] [facility] [address] [place] [address] Dizziness (Primary Dx); Murmur, heart; Dyslipidemia Social History Tobacco Use Types Packs/Day Years Used Date Smoking Tobacco: Every Day Cigarettes Smokeless Tobacco: Never Alcohol Use Standard Drinks/Week Comments No 0 (1 standard drink = 0.6 oz pur e alcohol) Sex and Gender Information Value Date Recorded Sex Assigned at Not on file Legal Sex Male 1:59 AM SOIL SCIENTIST Gender Identity Not on file Sexual Orientation Not on file documented as of this encounter Last Filed Vital Signs Vital Sign Reading Time Taken Comments Blood Pressure 108/60 07/19/2018 3:09 PM SOIL SCIENTIST Pulse 74 07/19/2018 3:09 PM SOIL SCIENTIST Temperature - - Respiratory Rate - - Oxygen Saturation 96% 07/19/2018 3:09 PM SOIL SCIENTIST Inhaled Oxygen Concentration - - Weight 107.5 kg (237 lb) 07/19/2018 3:09 PM SOIL SCIENTIST Height 182.9 cm (6') 07/19/2018 3:09 PM SOIL SCIENTIST Body Mass Index 32.14 07/19/2018 3:09 PM SOIL SCIENTIST documented in this encounter Patient Instructions * Patient Instructions* Lizette Swift NP - 07/19/2018 3:00 PM SOIL SCIENTIST Follow a heart healthy diet. Eat a [...] is a diet plan I recommend. The [place] [employer] website is a great source of information www.heart.org Incorporate exercise into your daily routine, with a goal of 30 minutes of exercise a day, 5 days per week. SCIENTIST documented in this encounter Progress Notes * Lizette Swift NP - 07/19/2018 3:00 PM CST [facility] Date of Visit: 07/19/2018 Patient ID: Stephan Nunez 1965 Chief Complaint: Stephan Nunez is a 52 y.o. male who is an established patient Dr. De Jesus here for dizziness. History of Present Illness: 52-year-old male with PSVT, anxiety/panic attacks. Patient was seen in [facility] on 06/22/15 when he presented with [...] half pack per day. 07/19/2018 OV w/ HR INTERNSHIP: Patient comes in today complaining of episodes [...] office and we will place a mobile weaving teacher. However, I recommend he return to the [...] This note is dictated and transcribed using [employer] Direct Software. Teleprinter variancesmay occur. Despite proofreading, typographical errors may occur. SCIENTIST documented in this encounter Miscellaneous Notes * Addendum Note - Blanquita Dougherty MA - 07/19/2018 3:00 PM CSTAddended by: BLANQUITA DOUGHERTY on: 07/19/2018 04:47 PM Modules accepted: Orders SCIENTIST documented in this encounter Plan of Treatment Not on file documented as of this encounter Procedures Procedure Name Priority Date/Time Associated Diagnosis Comments POCT LIPID PANEL Routine 07/19/2018 4:46 PM SOIL SCIENTIST Dyslipidemia ECG 12-LEAD Routine 07/19/2018 Dizziness Murmur, heart documented in this encounter Results * TRANSTHORACIC ECHO (TTE) COMPLETE W DOPPLER/CF W CONTRAST (07/29/2018 3:45 PM SOIL SCIENTIST) Anatomical Region Laterality Modality Ultrasound 07/29/2018 2:06 PM SOIL SCIENTIST Narrative 07/29/2018 4:33 PM SOIL SCIENTIST [facility] [address], [place] [address] [address] [facility] [address], [place] [address] P:[phone] P:[phone] Echocardiographic Report Patient Name: STEPHAN NUNEZ : [...] Site: Exam was interpreted at [facility]. Left Ventricle: Normal left ventricular systolic [...] Signed By: Rommel Simmons MD 2018-07-29 16:33:53 SOIL SCIENTIST CC: CC: Procedure Note Rommel Simmons MD - 07/29/2018 [facility] [address] [facility] [address] [address] [address] [facility] [address], [place] [address] P:[phone] P:[phone] Echocardiographic Report Patient Name: STEPHAN NUNEZPatient ID: [id number] : [id number] Date: 07/29/2018 2:06:40 PM Gender: MAccession #: [id number] Tech: Location: [place] Ref.Physician: Job CORRALight(Cm): 183 BSA: 2.29Weight(Kg): 107.5 [...] 0.40 - 0.80 ] m/s MV Decel Amyu094 [ 150 - 200 ] msec E'0.12 E/E' 9 Findings: Interpretation Site: Exam was interpreted at [facility]. Left Ventricle: Normal left ventricular systolic [...] Signed By: Rommel Simmons MD 2018-07-29 16:33:53 SOIL SCIENTIST CC: CC: Lizette Swift NP CV ECHO PROCEDURES Final Result * POCT lipid panel (07/19/2018 4:46 PM SOIL SCIENTIST) Cholesterol, POC 293 mg/dL HDL, POC 33 mg/dL Triglycerides, POC 283 mg/dL LDL Cholesterol POC 204 mg/dL Chol/HDL Ratio, POC 9.0 Non-HDL Cholesterol, POC 261 mg/dL Cholesterol Total, POC 293 mg/dL Blood specimen (specimen) 07/19/2018 4:46 PM SOIL SCIENTIST Lizette Swift NP POINT OF CARE TEST [...] 02/15/2024 added in this encounter Care Teams Surgeon Partner Relationship Specialty Start Date End Date Raghu Corral MD [address] [place] [address] PCP - General 10/31/15 documented as of this encounter
--- OUTSIDE RECORDS SUMMARY | 2024-07-19 22:21 | XMS_ITS | Encounter Summary ---
Author Organization [facility] Medical Group Address [address] [facility] [address] [place] [address] Care Team Providers Care Presser Machine Name Role Phone Carolyn Davis MD Primary Care Provider Reason for Visit * Reason Comments Follow-up 1 yr f/u Encounter Details Date Type Department Care Team (Late st Contact Info) Description 12/06/2018 2:30 PM CDT Office Visit [facility] [address] [facility] [address] [phone] Lizette Quintero NP [address] [facility] [address] [facility] [address] [place] [address] PSVT (paroxysmal supraventricular tachycardia) (CMS/HCC) [...] on file 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 Patient was seen in [facility] on 06/22/15 when he presented with complaints [...] half pack per day. 07/19/2018 OV w/ PRUNE WASHER: Patient comes in today complaining of episodes [...] intervals, rate 67 b.p.m. 12/06/2018 OV w/ PRUNE WASHER: He reports that the dizziness and ???head [...] This note is dictated and transcribed using [employer] Direct Software. Intellectual Property Counsel variancesmay occur. Despite proofreading, typographical errors may occur. documented in this encounter Plan of Treatment Not on file documented as of this encounter Visit Diagnoses Diagnosis PSVT (paroxysmal supraventricular tachycardia) (HCC)- Primary Paroxysmal supraventricular tachycardia Mild aortic stenosis Aortic valve disorders Essential hypertension Unspecified essential hypertension Situational anxiety documented in this encounter Care Teams Presser Machine Relationship Specialty Start Date End Date Carolyn Davis MD [address] [facility] [address] [place] [address] PCP - General 10/31/15 documented as of this encounter
--- OUTSIDE RECORDS SUMMARY | 2024-07-19 22:21 | XMS_ITS | Encounter Summary ---
Author Organization [facility] Medical Group Address [address] [facility] [address] [place] [address] Care Team Providers Care Ice Rink Attendant Name Role Phone Carolyn Davis MD Primary Care Provider Encounter Details Date Type Department Care Team (Late st Contact Info) Description 02/17/2022 Orders Only [facility] Medical Group Cardiology [address] [facility] [address] 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
--- OUTSIDE RECORDS SUMMARY | 2024-07-19 22:21 | XMS_ITS | Encounter Summary ---
Author Organization [facility] Medical [facility] Address [address] [facility] [address] [place] [address] Care Team Providers Care Cloth Tearer Name Role Phone Carolyn Davis MD Primary Care Provider Reason for Visit * Cardiology (Routine) - Closed Specialty Diagnoses / Procedures Referred By Kary t Referred To Contact Diagnoses PSVT (paroxysmal supraventricular tachycardia) (HCC) Palpitations Procedures MCT Mobile Cardiac Telemetry Event Monitor Tom De Jesus MD [address] [address] Phone: tel: fax: [facility] Referral ID Status Reason Start Date Expiration Date Visits Re quested Visits Authorized [id number] Closed 08/20/2022 09/19/2023 1 1 Encounter Details Date Type Department Care Team (Latest Contact Info) Description 08/20/2022 2:30 PM STOVE TENDER Ancillary Procedure [facility] Cardiology [address] [facility] [address] [place] [address] PSVT (paroxysmal supraventricular tachycardia) (CMS/HCC) (HCC); Palpitations Social History Tobacco Use Types Packs/Day Years Used Date Smoking Tobacco: Every Day Cigarettes Smokeless Tobacco: Never Alcohol Use Standard Drinks/Week Comments No 0 (1 standard drink = 0.6 oz pur e alcohol) Sex and Gender Information Value Date Recorded Sex Assigned at Not on file Legal Sex Male 1:59 AM STOVE TENDER Gender Identity Not on file Sexual Orientation Not on file documented as of this encounter Plan of Treatment Not on file documented as of this encounter Procedures Procedure Name Priority Date/Time Associated Diagnosis Comments MCT - MOBILE CARDIAC TELEMETRY EVENT MONITOR Routine 08/20/2022 12:21 PM STOVE TENDER PSVT (paroxysmal supraventricular tachycardia) (CMS/HCC) (HCC) Palpitations documented in this encounter Results * MCT Mobile Cardiac Telemetry Event Monitor (08/20/2022 12:21 PM STOVE TENDER) Anatomical Region Laterality Modality Other Narrative 09/26/2022 12:17 PM STOVE TENDER Images from the original result were not included. AMBULATORY TURBINE MECHANIC REPORT Patient Name: Wyatt Madden Date of [...] 127BPM without any arrhythmias. Trey Wooten M.D., [facility] 09/26/22 Voice recognition software was used to complete this document, therefore, donor recruiter variances may occur. Procedure Note Trey Wooten MD - 09/26/2022 Images from the original note were not included. AMBULATORY TURBINE MECHANIC REPORT Patient Name: Wyatt Madden Date of [...] per minute and the maximum heart rate [id number] beats per minute. There was no evidence of atrial fibrillation/flutter, SVT, pauses, heartblocks, or ventricular tachycardia. No evidence of PACs. PVC burden is less than 1%. There were 5 patient triggered events. All 5 episodes were symptom otherthan listed that correlated to sinus rhythm with a heart rate range [id number] to 127BPM without any arrhythmias. Conclusions: Sinus rhythm with an average heart rate of 68 beats per minute. Theminimum heart rate was 50 beats per minute and the maximum heart rate [id number] beats per minute. No significant arrhythmias. Patient reported symptoms correlated to sinus rhythm with a heart raterange of 54BPM to 127BPM without any arrhythmias. Trey Wooten M.D., [facility] 09/26/22 Voice recognition software was used to complete this document, therefore,donor recruiter variances may occur. us Tom De Jesus MD CV CARDIAC SERVICES PROCEDURES F inal Result documented in this encounter Visit Diagnoses Diagnosis PSVT (paroxysmal supraventricular tachycardia) (HCC) Paroxysmal supraventricular tachycardia Palpitations documented in this encounter Care Teams Cloth Tearer Relationship Specialty Start Date End Date Carolyn Davis MD [address] [facility] 120 [place] [address] PCP - General 10/31/15 documented as of this encounter
--- OUTSIDE RECORDS SUMMARY | 2024-07-19 22:21 | XMS_ITS | Encounter Summary ---
Author Organization [facility] Medical Group Address [address] [facility] [address] [place] [address] Care Team Providers Care Rig Welder Name Role Phone Carolyn Davis MD Primary Care Provider Reason for Visit * Diagnostic Imaging (Routine) - Closed Specialty Diagnoses / Procedures Referred By Kary mata Referred To Contact Cardiology Imaging Diagnoses Chest pain on exertion Procedures NM MPI SPECT (Rest and/or Stress) Multiple Studies Minerva Dempsey NP Phone: tel: fax: [facility] Medical [facility] Cardiology [address] [place] [phone] Phone: tel: fax: Referral ID Status Reason Start Date Expiration Date Visits Re quested Visits Authorized [id number] Closed 01/24/2019 03/10/2019 5 5 Encounter Details Date Type Department Care Team (Latest Contact Info) Description 01/27/2019 9:15 AM CDT Ancillary Procedure [facility] Medical [facility] Cardiology [address] [place] [phone] Chest pain on exertion Social History Tobacco Use Types Packs/Day Years Used Date Smoking Tobacco: Every Day Cigarettes Smokeless Tobacco: Never Alcohol Use Standard Drinks/Week Comments No 0 (1 standard drink = 0.6 oz pur e alcohol) Sex and Gender Information Value Date Recorded Sex Assigned at Not on file 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 Gender Identity Not on file Sexual Orientation [...] 5:23 PM CDT [facility] [address] [place] [address] [address] [address] [facility] [address], [place] [address] P:[phone] P:[phone] MPI Imaging Report Patient Name: STEPHAN NUNEZ A : 1965 Study Date: 01/27/2019 10:16:12 AM Gender: M Tech: SIRISHA Choe Location: [facility] Ref.Provider: MINERVA DEMPSEY Height(Cm): 182.9 BSA: Weight(Kg): [...] CDT Electronically Signed By: Case Cage MD, [facility] 2019-01-27 17:23:58 CDT Procedure Note Case Cage MD - 01/27/2019 [facility] [address] [place] [address] [address] [address] [facility] [address], [place] [address] P:[phone] P:[phone] MPI Imaging Report Patient Name: STEPHAN NUNEZ APatient ID: [id number] : [id number] Date: 01/27/2019 10:16:12 AM Gender: MAccession #: [id number] Tech: MERRICK ChoeTXLocation: [facility] Ref.Provider: Leela DEMPSEYight(Cm): 182.9 BSA: Weight(Kg): 111.9 [...] CDT Electronically Signed By: Case Cage MD, [facility] 2019-01-27 17:23:58 CDT Minerva Dempsey [facility] PROCEDURES Final Result documented in this encounter Visit Diagnoses Diagnosis Chest pain on exertion Unspecified chest pain documented in this encounter Administered Medications Inactive Administered Medications - up to 3 most recent administrations Medication Order MAR Action Action Date Dose Rate Site tc-99m sestamibi unit dose injection 12.8 millicurie 12.8 millicurie, intravenous, Once in imaging, radiopharmaceutical, Starting on Hkushbu 01/27/19 at 0924, For 1 dose, Indications: Diagnostic RadiographyIndications:Chaya gnostic Radiography Given 01/27/2019 9:25 AM CDT 12.8 millicuries tc-99m sestamibi unit dose injection 37.7 millicurie 37.7 millicurie, intravenous, Once in imaging, radiopharmaceutical, Starting on Khushbu 01/27/19 at 1107, For 1 dose, Indications: Diagnostic RadiographyIndications:Chaya gnostic Radiography Given 01/27/2019 11:07 AM CDT 37.7 millicuries documented in this encounter Care Teams Rig Welder Relationship Specialty Start Date End Date Carolyn Davis MD [address] [address] PCP - General 10/31/15 documented as of this encounter
--- OUTSIDE RECORDS SUMMARY | 2024-07-19 22:21 | XMS_ITS | Encounter Summary ---
Author Organization [facility] Medical Group Address [address] [facility] [address] [place] [address] Care Team Providers Care Eyeglass Frame Truer Name Role Phone Carolyn Davis MD Primary Care Provider Reason for Visit * Cardiology (Routine) - Closed Specialty Diagnoses / Procedures Referred By Kary mata Referred To Contact Diagnoses Mild aortic stenosis Procedures Transthoracic Echo Complete W Doppler/CF Tom Bal MD [address] [address] Phone: tel: fax: [facility] Referral ID Status Reason Start Date Expiration Date Visits Re quested Visits Authorized [id number] Closed 12/14/2019 06/24/2021 1 1 Encounter Details Date Type Department Care Team (Latest Contact Info) Description 08/17/2020 9:15 AM MARKETING PROGRAM COORDINATOR Ancillary Procedure [facility] Medical [facility] Cardiology [address] [facility] [address] [place] [address] Mild aortic stenosis Social History Tobacco Use Types Packs/Day Years Used Date Smoking Tobacco: Every Day Cigarettes Smokeless Tobacco: Never Alcohol Use Standard Drinks/Week Comments No 0 (1 standard drink = 0.6 oz pur e alcohol) Sex and Gender Information Value Date Recorded Sex Assigned at Not on file Legal Sex Male 1:59 AM MARKETING PROGRAM COORDINATOR Gender Identity Not on file Sexual [...] DOPPLER/CF W CONTRAST Routine 08/17/2020 10:13 AM MARKETING PROGRAM COORDINATOR Mild aortic stenosis documented in this encounter Results * TRANSTHORACIC ECHO (TTE) COMPLETE W DOPPLER/CF W CONTRAST (08/17/2020 10:13 AM MARKETING PROGRAM COORDINATOR) Anatomical Region Laterality Modality Ultrasound 08/17/2020 8:58 AM MARKETING PROGRAM COORDINATOR Narrative 08/17/2020 12:32 PM MARKETING PROGRAM COORDINATOR [facility] Medical Group Cardiology [address] [facility] [address], [place] [address] [address] [facility] [address] [address] P:[phone] P:[phone] Echocardiographic Report Patient Name: STEPHAN NUNEZ : 1965 Study Date: 08/17/2020 8:58:30 AM Gender: M Tech: Location: [place] Ref.Provider: SHAYNA Height(Cm): 180 BSA: 2.29 Weight(Kg): [...] Findings: Interpretation Site: Exam was interpreted at [facility]. Left Ventricle: Normal left ventricular systolic function. [...] Signed By: Rommel Simmons MD 2020-08-17 12:32:52 MARKETING PROGRAM COORDINATOR Procedure Note Rommel Simmons MD - 08/17/2020 [facility] Medical Group Cardiology [address], [place] [address] [address], [place] [address] P:[phone] P:[phone] Echocardiographic Report Patient Name: STEPHAN NUNEZPatient ID: [id number] : [id number] Date: 08/17/2020 8:58:30 AM Gender: MAccession #: [id number] Tech: GMLocation: [place] Ref.Provider: Candet(Cm): 180 BSA: 2.29Weight(Kg): 109.77 Heart [...] m/s ACS MM 1.25 cm MV Decel [id number] [ 150 - 200 ] msec PV Peak Vel0.56 [ 0.40 - 0.80 ] m/s E'0.16 E/E' 5 Findings: Interpretation Site: Exam was interpreted at [facility]. Left Ventricle: Normal left ventricular systolic function. [...] Signed By: Rommel Simmons MD 2020-08-17 12:32:52 MARKETING PROGRAM COORDINATOR us Tom Bal MD CV ECHO PROCEDURES [...] For 1 dose Given 08/17/2020 10:43 AM MARKETING PROGRAM COORDINATOR 1 mL documented in this encounter Care Teams Eyeglass Frame Truer Relationship Specialty Start Date End Date Carolyn Davis MD [address] [place] [address] PCP - General 10/31/15 documented as of this encounter
--- OUTSIDE RECORDS SUMMARY | 2024-07-19 22:21 | XMS_ITS | Encounter Summary ---
Author Organization [facility] Medical Group Address [address] [facility] [address] [place] [address] Care Team Providers Care Community Development Aide Name Role Phone Carolyn Davis MD Primary Care Provider Reason for Visit * Cardiology (Routine) - Closed Specialty Diagnoses / Procedures Referred By Kary mata Referred To Contact Diagnoses Moderate aortic stenosis Procedures Transthoracic Echo (TTE) Complete W Doppler/CF Magdi Bal MD [address] [place] [id number] Phone: tel: fax: [facility] Medical Group Referral ID Status Reason Start Date Expiration Date Visits Re quested Visits Authorized [id number] Closed 11/26/2022 12/26/2023 1 1 Encounter Details Date Type Department Care Team (Latest Contact Info) Description 02/18/2023 9:15 AM CDT Ancillary Procedure [facility] Medical Group Cardiology [address] [facility] [address] [place] [address] Moderate aortic stenosis Social History Tobacco Use Types Packs/Day Years Used Date Smoking Tobacco: Every Day Cigarettes Smokeless Tobacco: Never Alcohol Use Standard Drinks/Week Comments No 0 (1 standard drink = 0.6 oz pur e alcohol) Sex and Gender Information Value Date Recorded Sex Assigned at Not on file Legal Sex Male 1:59 AM CHANNEL TURNER Gender Identity Not on file Sexual Orientation [...] AM CDT Narrative 02/18/2023 4:03 PM CDT [facility] Medical Group Cardiology [address] [facility] [address], [place] [address] [address] [facility] [address], [place] [address] P:[phone] P:[phone] Echocardiographic Report Patient Name: WYATT NUNEZ A : 1965 Study Date: 02/18/2023 9:31:09 AM Gender: M Tech: Location: [place] Ref.Provider: MAGDI BAL Height(Cm): 180 BSA: 2.25 [...] Site: Exam was interpreted at [facility]. Left Ventricle: Normal left ventricular size. [...] jet. Electronically Signed By: Magdi Bal MD, [facility] 2023-02-18 16:03:46 CDT CC: CC: Procedure Note Magdi Bal MD - 02/18/2023 [facility] Medical Group Cardiology [address], [place] [address] [address], [place] [address] P:[phone] P:[phone] Echocardiographic Report Patient Name: WYATT NUNEZ APatient ID: [id number] : [id number] Date: 02/18/2023 9:31:09 AM Gender: MAccession #: [id number] Tech: Location: [place] Ref.Provider: MAGDI BALHeight(Cm): 180 BSA: 2.25Weight(Kg): 101.2 [...] Site: Exam was interpreted at [facility]. Left Ventricle: Normal left ventricular size. [...] jet. Electronically Signed By: Magdi Bal MD, [facility] 2023-02-18 16:03:46 CDT CC: CC: us Magdi Bal MD CV ECHO PROCEDURES Final Result documented in this encounter Visit Diagnoses Diagnosis Moderate aortic stenosis Aortic valve disorders documented in this encounter Care Teams Community Development Aide Relationship Specialty Start Date End Date Carolyn Davis MD [address] [address] PCP - General 10/31/15 documented as of this encounter
--- OUTSIDE RECORDS SUMMARY | 2024-07-19 22:21 | XMS_ITS | Encounter Summary ---
Author Organization [facility] Address [address] [place] [address] Care Team Providers Care Plate Glass Polisher Name Role Phone Carolyn Davis MD Primary Care Provider Reason for Referral * Cardiology (Routine) - Closed Specialty Diagnoses / Procedures Referred By Contac t Referred To Contact Diagnoses Moderate aortic stenosis Procedures Transthoracic Echo (TTE) Complete W Doppler/CF Magdi Bal MD [address] [facility] [address] [place] [address] Phone: tel: fax: [facility] Referral ID Status Reason Start Date Expiration Date Visits Re quested Visits Authorized [id number] Closed 11/26/2022 12/26/2023 1 1 Reason for Visit * Reason Comments Follow-up 3 month follow up. Encounter Details Date Type Department Care Team (Latest Contact Info) Description 11/26/2022 2:15 PM CDT Office Visit [facility] Cardiology [address] [facility] [address] [place] [address] Magdi Bal MD [address] [place] [address] Moderate aortic stenosis (Primary Dx); [...] on file Legal Sex Male 1:59 AM AUDIT TECH Gender Identity Not on file Sexual Orientation [...] attacks. Patient was seen in [facility] on 06/22/15 when he presented with [...] last office visit, patient was admitted to [facility] on 02/16/2022 after he apparently had [...] duplex-less than 50% stenosis bilateral ICA. 02/17/2022, [facility] Echo-normal LV size, EF 60-65%, grade 1 diastolic dysfunction, aortic stenosis, valve area 1.4 cm2,V max 2.62 m/sec, mean gradient 17 mmHg. 02/17/2022; Dr. Cage-[facility] Lipids-total cholesterol 227, HDL 34, triglycerides [...] AM CDT Narrative 02/18/2023 4:[address] [facility] Cardiology [address], [place] [address] [address], [place] [address] P:[phone] P:[phone] Echocardiographic Report Patient Name: STEPHAN NUNEZ A : 1965 Study Date: 02/18/2023 9:31:09 AM Gender: M Tech: Location[place] Ref.Provider: MAGDI BAL Height(Cm): 180 BSA: 2.25 [...] PLANTATION EMERGENCY. Left Ventricle: Normal left ventricular size. Mild [...] jet. Electronically Signed By: Magdi Bal MD, [facility] 2023-02-18 16:03:46 CDT CC: CC: Procedure Note Magdi Bal MD - 02/18/2023 [facility] Cardiology [address] [facility] [address], [place] [address] [address] [facility] [address], [place] [address] P:[phone] P:[phone] Echocardiographic Report Patient Name: STEPHAN NUNEZ APatient ID: [id number] : [id number] Date: 02/18/2023 9:31:09 AM Gender: MAccession #: [id number] Tech: Location[place] Ref.Provider: MAGDI BALHeight(Cm): 180 BSA: 2.25Weight(Kg): 101.2 [...] PLANTATION EMERGENCY. Left Ventricle: Normal left ventricular size. Mild [...] jet. Electronically Signed By: Magdi Bal MD, [facility] 2023-02-18 16:03:46 CDT CC: CC: us Magdi Bal MD CV ECHO PROCEDURES Final Result documented in this encounter Visit Diagnoses Diagnosis Moderate aortic stenosis- Primary Aortic valve disorders PSVT (paroxysmal supraventricular tachycardia) ([facility]) Paroxysmal supraventricular tachycardia Essential hypertension Unspecified essential hypertension History of alcohol abuse Nondependent alcohol abuse, in remission History of subdural hematoma Mixed dyslipidemia Moderate aortic stenosis Aortic valve disorders documented in this encounter Care Teams Plate Glass Polisher Relationship Specialty Start Date End Date Carolyn Davis MD [address] [facility] [address] [place] [address] PCP - General 10/31/15 documented as of this encounter
--- OUTSIDE RECORDS SUMMARY | 2024-07-19 22:21 | XMS_ITS | Encounter Summary ---
Author Organization [facility] Address [address] [place] [address] Care Team Providers Care Hand Rug Cleaner Name Role Phone Carolyn Davis MD Primary Care Provider Reason for Visit * Reason Comments Follow-up on PSVT and anxiety Encounter Details Date Type Department Care Team (Latest Contact Info) Description 08/19/2017 1:45 PM SEARCH ENGINE MARKETING SPECIALIST Office Visit [facility] [address] [place] [address] Tom De Jesus MD [facility] [place] [id number] PSVT (paroxysmal supraventricular tachycardia) (CMS/HCC) (Primary Dx); [...] on file Legal Sex Male 1:59 AM SEARCH ENGINE MARKETING SPECIALIST Gender Identity Not on file Sexual Orientation Not on file documented as of this encounter Last Filed Vital Signs Vital Sign Reading Time Taken Comments Blood Pressure 150/70 08/19/2017 1:58 PM SEARCH ENGINE MARKETING SPECIALIST Pulse 84 08/19/2017 1:58 PM SEARCH ENGINE MARKETING SPECIALIST Temperature - - Respiratory Rate - - Oxygen Saturation 97% 08/19/2017 1:58 PM SEARCH ENGINE MARKETING SPECIALIST Inhaled Oxygen Concentration - - Weight 110.2 kg (243 lb) 08/19/2017 1:58 PM SEARCH ENGINE MARKETING SPECIALIST Height 182.9 cm (6') 08/19/2017 1:58 PM SEARCH ENGINE MARKETING SPECIALIST Body Mass Index 32.96 08/19/2017 1:58 PM SEARCH ENGINE MARKETING SPECIALIST documented in this encounter Ordered Prescriptions Prescription [...] sooner if needed Tom De Jesus MD CH ENGINE MARKETING SPECIALIST documented in this encounter Plan of Treatment [...] 02/15/2024 added in this encounter Care Teams Hand Rug Cleaner Relationship Specialty Start Date End Date Carolyn Davis MD [address] [place] [address] PCP - General 10/31/15 documented as of this encounter
--- OUTSIDE RECORDS SUMMARY | 2024-07-19 22:21 | XMS_ITS | Encounter Summary ---
Author Organization [facility] Address [address] [place] [address] Care Team Providers Care Ornamental Metal Worker Name Role Phone Carolyn Davis MD Primary Care Provider Reason for Visit * Reason Comments Follow-up PSVT- Aortic stenosi s- 1 year fu Encounter Details Date Type Department Care Team (Latest Contact Info) Description 08/28/2021 1:45 PM INSPECTOR PROCESS Office Visit [facility] Cardiology [address] [facility] [address] [place] [address] Tom De eJsus MD [address] [address] Moderate aortic stenosis (Primary Dx); [...] on file Legal Sex Male 1:59 AM INSPECTOR PROCESS Gender Identity Not on file Sexual Orientation Not on file documented as of this encounter Last Filed Vital Signs Vital Sign Reading Time Taken Comments Blood Pressure 122/78 08/28/2021 1:49 PM INSPECTOR PROCESS Pulse 78 08/28/2021 1:49 PM INSPECTOR PROCESS Temperature - - Respiratory Rate - - Oxygen Saturation 97% 08/28/2021 1:49 PM INSPECTOR PROCESS Inhaled Oxygen Concentration - - Weight 108.4 kg (239 lb) 08/28/2021 1:49 PM INSPECTOR PROCESS Height 180.3 cm (5' 11 ) 08/28/2021 1:49 PM INSPECTOR PROCESS Body Mass Index 33.33 08/28/2021 1:49 PM INSPECTOR PROCESS documented in this encounter Ordered Prescriptions Prescription [...] PSVT, anxiety/panic attacks. Patient was seen in [facility] on 06/22/15 when he presented [...] and JAVIER findings. Tom De Jesus MD ECTOR PROCESS documented in this encounter Plan of Treatment Not on file documented as of this encounter Procedures Procedure Name Priority Date/Time Associated Diagnosis Comments POCT LIPID PANEL Routine 08/28/2021 2:45 PM INSPECTOR PROCESS Lipid screening documented in this encounter Results * POCT lipid panel (08/28/2021 2:45 PM INSPECTOR PROCESS) Cholesterol, POC 297 mg/dL HDL, POC N/A mg/dL Triglycerides, POC >650 mg/dL LDL Cholesterol POC N/A mg/dL Chol/HDL Ratio, POC N/A Non-HDL Cholesterol, POC N/A mg/dL Cholesterol Total, POC 297 mg/dL Capillary blood 08/28/2021 2 :45 PM INSPECTOR PROCESS us Tom De Jesus MD POINT OF [...] documented as of this encounter Care Teams Ornamental Metal Worker Relationship Specialty Start Date End Date Carolyn Davis MD [address] [facility] [address] [place] [id number] PCP - General 10/31/15 documented as of this encounter
--- OUTSIDE RECORDS SUMMARY | 2024-07-19 22:21 | XMS_ITS | Encounter Summary ---
Author Organization [facility] Address [address] [place] [address] Care Team Providers Care Tactical Response Group Officer Name Role Phone Carolyn Davis MD Primary Care Provider Reason for Referral * Cardiology (Routine) - Closed Specialty Diagnoses / Procedures Referred By Contkemal t Referred To Contact Diagnoses Moderate aortic stenosis Procedures Transthoracic Echo Complete W Doppler/CF Tom Bal MD [address] [place] [address] Phone: tel: fax: [facility] Referral ID Status Reason Start Date Expiration Date Visits Re quested Visits Authorized [id number] Closed 08/29/2020 09/28/2021 1 1 POINTER Reason for Visit * Reason Comments Follow-up 8 mo follow up on PS VT, mild , HTN Encounter Details Date Type Department Care Team (Latest Contact Info) Description 08/29/2020 1:15 PM FUR POINTER Office Visit [facility] Cardiology [address] [facility] [address] [place] [address] Tom Bal MD [address] [place] [address] Moderate aortic stenosis (Primary Dx); [...] on file Legal Sex Male 1:59 AM FUR POINTER Gender Identity Not on file Sexual Orientation Not on file documented as of this encounter Last Filed Vital Signs Vital Sign Reading Time Taken Comments Blood Pressure 118/70 08/29/2020 1:13 PM FUR POINTER Pulse 70 08/29/2020 1:13 PM FUR POINTER Temperature - - Respiratory Rate - - Oxygen Saturation 98% 08/29/2020 1:13 PM FUR POINTER Inhaled Oxygen Concentration - - Weight 107.5 kg (237 lb) 08/29/2020 1:13 PM FUR POINTER Height 180.3 cm (5' 11 ) 08/29/2020 1:13 PM FUR POINTER Body Mass Index 33.05 08/29/2020 1:13 PM FUR POINTER documented in this encounter Progress Notes * Tom Bal MD - 08/29/2020 1:15 PM CST [facility] FOLLOW UP 08/29/2020 Chief Complaint Patient presents with ??? Follow-up 8 mo follow up on PSVT, mild , HTN 54 y.o. male with PSVT, anxiety/panic attacks. Patient was seen in [facility] on 06/22/15 when he presented with [...] W Doppler/CF; Future PSVT (paroxysmal supraventricular tachycardia) ([facility]) Essential hypertension Tobacco abuse PLAN/RECOMMENDATIONS [...] or sooner if needed Tom Bal MD POINTER documented in this encounter Plan of Treatment Not on file documented as of this encounter Results * TRANSTHORACIC ECHO (TTE) COMPLETE W DOPPLER/CF W CONTRAST (08/16/2021 9:15 AM FUR POINTER) Anatomical Region Laterality Modality Ultrasound 08/16/2021 8:14 AM FUR POINTER Narrative 08/16/2021 1:22 PM FUR POINTER [facility] Cardiology [address] [facility] [address] [id number] [address] [facility] [address], [place] [address] P:[phone] P:[phone] Echocardiographic Report Patient Name: STEPHAN NUNEZ : 1965 Study Date: 08/16/2021 8:14:20 AM Gender: M Tech: Location: [place] Ref.Provider: TOM BAL Height(Cm): 180 BSA: 2.27 [...] Findings: Interpretation Site: Exam was interpreted at [facility]. Left Ventricle: Normal left ventricular systolic [...] Signed By: Rommel Simmons MD 2021-08-16 13:22:03 FUR POINTER Procedure Note Rommel Simmons MD - 08/16/2021 [facility] Cardiology [address] [facility] [address] [address] [address] [facility] [address], [place] [address] P:[phone] P:[phone] Echocardiographic Report Patient Name: STEPHAN NUNEZPatient ID: [id number] : [id number] Date: 08/16/2021 8:14:20 AM Gender: MAccession #: [id number] Tech: GMLocation: [place] Ref.Provider: TOM BALHeight(Cm): 180 BSA: 2.27Weight(Kg): 107.5 [...] 0.40 - 0.80 ] m/s MV Decel Puop034 [ 150 - 200 ] msec PV Peak Vel1.13 [ 0.40 - 0.80 ] m/s E'0.10 E/E' 9 Findings: Interpretation Site: Exam was interpreted at [facility]. Left Ventricle: Normal left ventricular systolic [...] Signed By: Rommel Simmons MD 2021-08-16 13:22:03 FUR POINTER Tom Bal MD CV ECHO PROCEDURES Final [...] 02/15/2024 added in this encounter Care Teams Tactical Response Group Officer Relationship Specialty Start Date End Date Carolyn Davis MD [address] [facility] [address] [place] [address] PCP - General 10/31/15 documented as of this encounter
--- OUTSIDE RECORDS SUMMARY | 2024-07-19 22:21 | XMS_ITS | Encounter Summary ---
Author Organization [facility] Address [address] [place] [address] Care Team Providers Care Head Of Mobile Name Role Phone Carolyn Davis MD Primary Care Provider Reason for Referral * Cardiology (Routine) - Closed Specialty Diagnoses / Procedures Referred By Kary mata Referred To Contact Diagnoses Nonrheumatic aortic valve stenosis Procedures Transthoracic Echo (TTE) Complete W Doppler/CF Rocco Fisher NP [address] [address] Phone: tel: fax: [facility] Referral ID Status Reason Start Date Expiration Date Visits Re quested Visits Authorized [id number] Closed 01/06/2024 02/04/2025 1 1 Reason for Visit * Reason Comments Annual Exam Encounter Details Date Type Department Care Team (Late st Contact Info) Description 01/06/2024 3:00 PM CDT Office Visit [facility] Cardiology [address] [place] [address] Rocco Fisher NP [address] [facility] [address] [id number] Nonrheumatic aortic valve stenosis (Primary Dx); Lipid [...] on file Legal Sex Male 1:59 AM BUSINESS ENTERPRISE OFFICER Gender Identity Not on file Sexual [...] Fisher NP - 01/06/2024 3:00 PM CDT [facility] Cardiology [address] [place] [address] Date of Visit: 01/06/2024 Patient ID: Wyatt Nunez 1965 Chief Complaint: Wyatt Nunez is a 58 y.o. male who comes to the office for routine follow up for , PSVT History of Present Illness: Wyatt Nunez is a 58 y.o. male with a past medical history of aortic stenosis, paroxysmal supraventricular tachycardia, anxiety/panic attacks Patient was seen in [facility] on 06/22/15 when he presented with [...] last office visit, patient was admitted to [facility] on 02/16/2022 after he apparently had [...] needed. Rocco Fisher ANP- Nurse Practitioner with [facility] Cardiology This note is dictated and transcribed using [employer]. Trenching Machine Operator variancesmay occur. Despite proofreading, typographical errors may [...] PM CDT Narrative 01/21/2024 4:54 PM CDT [facility] Cardiology [address] [facility] [address], [place] [address] [address] [facility] [address], [place] [address] P:[phone] P:[phone] Echocardiographic Report Patient Name: WYATT NUNEZ A : 1965 Study Date: 01/21/2024 3:13:47 PM Gender: M Tech: Location: [facility] Provider: ROCCO FISHER ?Height(Cm): 180 BSA: 2.03 [...] FINDINGS: Interpretation Site: Exam was interpreted at [facility]. Left Ventricle: Normal left ventricular size. [...] regurgitation. Electronically Signed By: Case Cage MD, [facility] 2024-01-21 16:54:09 CDT Procedure Note Case Cage MD - 01/21/2024 [facility] Cardiology [address] [facility] [address] [address] [address] [facility] [address], [place], [place] [address] P:[phone] P:[phone] Echocardiographic Report Patient Name: WYATT NUNEZ A : 1965 Study Date: 01/21/2024 3:13:47 PM Gender: M Tech: Location: [facility] Provider: ROCCO FISHER Height(Cm): 180 BSA: 2.03 [...] [ 16 - 34 ] cc/m2 AV GWC215.76 cm LVOT Diam 2.03 [ 1.70 - [...] FINDINGS: Interpretation Site: Exam was interpreted at [facility]. Left Ventricle: Normal left ventricular size. [...] No aortic regurgitation. Electronically Signed By: Case aCge MD, [facility] 2024-01-21 16:54:09 CDT Rocco Fisher [...] 01/06/2024 added in this encounter Care Teams Head Of Mobile Relationship Specialty Start Date End Date Carolyn Davis MD [address] [facility] [address] [facility] 120 [place] [address] PCP - General 10/31/15 documented as of this encounter
--- OUTSIDE RECORDS SUMMARY | 2024-07-19 22:21 | XMS_ITS | Encounter Summary ---
Author Organization [facility] Healthcare Address [address] [place] [address] Care Team Providers Care Museum Registrar Name Role Phone Carolyn Davis MD Primary Care Provider Encounter Details Date Type Department Care Team (Late st Contact Info) Description 09/11/2021 Telephone [facility] Pre Anesthesia Testing [address] [place] [address] Michelle Stovall RN Social History Tobacco Use Types Packs/Day Years Used Date Smoking Tobacco: Every Day Cigarettes Smokeless Tobacco: Never Alcohol Use Standard Drinks/Week Comments No 0 (1 standard drink = 0.6 oz pur e alcohol) Sex and Gender Information Value Date Recorded Sex Assigned at Not on file Legal Sex Male 1:59 AM DAYCARE DIRECTOR Gender Identity Not on file Sexual Orientation Not on file documented as of this encounter Miscellaneous Notes * Telephone Encounter - Michelle Stovall RN - 09/11/2021 2:11 PM DAYCARE DIRECTOR patient given pre-procedure instructions, arrival 0800, and instructions for antibacterial shower.Verbalized understanding. ARE DIRECTOR documented in this encounter Plan of Treatment Not on file documented as of this encounter Visit Diagnoses Not on filedocumented in this encounter Care Teams Museum Registrar Relationship Specialty Start Date End Date Carolyn Davis MD [address] [facility] 120 [place] [address] PCP - General 10/31/15 documented as of this encounter
--- OUTSIDE RECORDS SUMMARY | 2024-07-19 22:21 | XMS_ITS | Encounter Summary ---
Author Organization [facility] Address [address] [place] [address] Care Team Providers Care Derrick Man Name Role Phone Carolyn Davis MD Primary Care Provider Reason for Visit * Cardiology (Routine) - Closed Specialty Diagnoses / Procedures Referred By Kary mata Referred To Contact Diagnoses Moderate aortic stenosis Procedures Transthoracic Echo Complete W Doppler/CF Magdi Bal MD [address] [address] Phone: tel: fax: [facility] Referral ID Status Reason Start Date Expiration Date Visits Re quested Visits Authorized [id number] Closed 08/29/2020 09/28/2021 1 1 Encounter Details Date Type Department Care Team (Latest Contact Info) Description 08/16/2021 8:15 AM PUFF IRON OPERATOR Ancillary Procedure [facility] Cardiology [address] [facility] [address] [place] [address] Moderate aortic stenosis Social History Tobacco Use Types Packs/Day Years Used Date Smoking Tobacco: Every Day Cigarettes Smokeless Tobacco: Never Alcohol Use Standard Drinks/Week Comments No 0 (1 standard drink = 0.6 oz pur e alcohol) Sex and Gender Information Value Date Recorded Sex Assigned at Not on file Legal Sex Male 1:59 AM PUFF IRON OPERATOR Gender Identity Not on file Sexual Orientation Not on file documented as of this encounter Plan of Treatment Not on file documented as of this encounter Procedures Procedure Name Priority Date/Time Associated Diagnosis Comments TRANSTHORACIC ECHO (TTE) COMPLETE W DOPPLER/CF W CONTRAST Routine 08/16/2021 9:15 AM PUFF IRON OPERATOR Moderate aortic stenosis documented in this encounter Results * TRANSTHORACIC ECHO (TTE) COMPLETE W DOPPLER/CF W CONTRAST (08/16/2021 9:15 AM PUFF IRON OPERATOR) Anatomical Region Laterality Modality Ultrasound 08/16/2021 8:14 AM PUFF IRON OPERATOR Narrative 08/16/2021 1:22 PM PUFF IRON OPERATOR [facility] Cardiology [address], [place] [address] [address], [place] [address] P:[phone] P:[phone] Echocardiographic Report Patient Name: WYATT NUNEZ : 1965 Study Date: 08/16/2021 8:14:20 AM Gender: M Tech: Location[place] Ref.Provider: MAGDI BAL Height(Cm): 180 BSA: 2.27 [...] Interpretation Site: Exam was interpreted at [facility]. Left Ventricle: Normal left ventricular systolic function. [...] Signed By: Rommel Simmons MD 2021-08-16 13:22:03 PUFF IRON OPERATOR Procedure Note Rommel Simmons MD - 08/16/2021 [facility] Cardiology [address] [facility] [address], [place] [address] [address] [facility] [address], [place] [address] P:[phone] P:[phone] Echocardiographic Report Patient Name: WYATT NUNEZPatient ID: [id number] : [id number] Date: 08/16/2021 8:14:20 AM Gender: MAccession #: [id number] Tech: GMLocation: [place] Ref.Provider: MAGDI BALHeight(Cm): 180 BSA: 2.27Weight(Kg): 107.5 [...] 0.40 - 0.80 ] m/s MV Decel [id number] [ 150 - 200 ] msec PV Peak Vel1.13 [ 0.40 - 0.80 ] m/s E'0.10 E/E' 9 Findings: Interpretation Site: Exam was interpreted at [facility]. Left Ventricle: Normal left ventricular systolic function. [...] Signed By: Rommel Simmons MD 2021-08-16 13:22:03 PUFF IRON OPERATOR Magdi Bal MD CV ECHO PROCEDURES Final [...] 1 dose Contrast Given 08/16/2021 9:05 AM PUFF IRON OPERATOR 1 mL documented in this encounter Orders Medications Ordered That Eric ht Not Have Been Administered Count Last Ordered Date First Ordered Date perflutren lipid (DEFINITY) 1.5 mL in sodium chloride 0.9% 10 mL syringe 1 08/16/2021 documented in this encounter Care Teams Derrick Man Relationship Specialty Start Date End Date Carolyn Davis MD [address] [facility] [address] [place] [address] PCP - General 10/31/15 documented as of this encounter
--- OUTSIDE RECORDS SUMMARY | 2024-07-19 22:21 | XMS_ITS | Encounter Summary ---
Author Organization [facility] Address [address] [facility] [address] [place] [address] Care Team Providers Care Combo Welder Name Role Phone Carolyn Davis MD Primary Care Provider Encounter Details Date Type Department Care Team (Late st Contact Info) Description 08/04/2018 Telephone [facility] [address] [address] Lizette Quintero NP [address] [place] [address] Social History Tobacco Use Types Packs/Day Years Used Date Smoking Tobacco: Every Day Cigarettes Smokeless Tobacco: Never Alcohol Use Standard Drinks/Week Comments No 0 (1 standard drink = 0.6 oz pur e alcohol) Sex and Gender Information Value Date Recorded Sex Assigned at Not on file Legal Sex Male 1:59 AM STONE GLUER Gender Identity Not on file Sexual Orientation Not on file documented as of this encounter Miscellaneous Notes * Telephone Encounter - Berta Crowley RN - 08/04/2018 1:14 PM STONE GLUER Spoke with patient; reviewed message per HUY TIJERINA. Patient voiced understanding. ----- Message from Lizette Quintero NP sent at 08/04/2018 1:06 PM STONE GLUER ----- Please call the patient regarding his [...] Keep f/u appt in November. Thank you. E GLUER E GLUER documented in this encounter Plan of Treatment Not on file documented as of this encounter Visit Diagnoses Not on filedocumented in this encounter Care Teams Combo Welder Relationship Specialty Start Date End Date Carolyn Davis MD [address] [facility] 120 [place] [address] PCP - General 10/31/15 documented as of this encounter
--- OUTSIDE RECORDS SUMMARY | 2024-07-19 22:21 | XMS_ITS | Encounter Summary ---
Author Organization [facility] Facility Care Team Providers Care Radiation Oncologist Name Role Phone Carolyn Davis MD Primary [...] file Legal Sex Male 1:59 AM SENIOR ADULTS DIRECTOR Gender Identity Not on file Sexual Orientation Not on file documented as of this encounter Plan of Treatment Not on file documented as of this encounter Visit Diagnoses Not on filedocumented in this encounter Care Teams Radiation Oncologist Relationship Specialty Start Date End Date Carolyn Davis MD [address] [facility] [address] [place] [address] PCP - General 10/31/15 documented as of this encounter
--- OUTSIDE RECORDS SUMMARY | 2024-07-19 22:21 | XMS_ITS | Encounter Summary ---
Author Organization [facility] Healthcare Address [address] [place] [address] Care Team Providers Care Severity Of Illness Coordinator Name Role Phone Carolyn Davis MD Primary Care Provider Encounter Details Date Type Department Care Team (Late st Contact Info) Description 09/10/2021 5:35 PM PUBLIC HEALTH EPIDEMIOLOGIST Lab [address] [address] Pre-operative laboratory examination Social History Tobacco Use Types Packs/Day Years Used Date Smoking Tobacco: Every Day Cigarettes Smokeless Tobacco: Never Alcohol Use Standard Drinks/Week Comments No 0 (1 standard drink = 0.6 oz pur e alcohol) Sex and Gender Information Value Date Recorded Sex Assigned at Not on file Legal Sex Male 1:59 AM PUBLIC HEALTH EPIDEMIOLOGIST Gender Identity Not on file Sexual Orientation Not on file documented as of this encounter Plan of Treatment Not on file documented as of this encounter Procedures Procedure Name Priority Date/Time Associated Diagnosis Comments COVID-19 CORONAVIRUS RNA Routine 09/10/2021 3:45 PM PUBLIC HEALTH EPIDEMIOLOGIST Pre-operative laboratory examination documented in this encounter Results * COVID-19 Coronavirus RNA Nasopharyngeal (09/10/2021 3:45 PM PUBLIC HEALTH EPIDEMIOLOGIST) COVID-19 RNA Not Detected ORI STODDARD Comment: Interpretive Data Synonyms for this test include: PCR and NAAT . ??Testing performed by the [facility] Molecular Infectious Disease Laboratory. The 2018-Novel [...] on September 06, 2020. Testing performed by: [facility], [address] [place] [address]., [id number] First COVID-19 test? Unknown CERNER Comment:Testing performed by : [facility], [address] [facility], [address] Employeed in healthcare? Unknown CERNER Comment:Testing performed by : [facility], [address] [facility], [address] Group care resident? No CERNER Comment:Testing performed by : [facility], [address] [place] [address], [address] Hospitalized? Unknown CERNER Comment:Testing performed by : [facility], [address] [facility], [address] Is patient in ICU? Unknown CERNER Comment:Testing performed by : [facility], [address] [facility], [address] Symptomatic as defined by CDC? No CERNER Comment:Testing performed by : [facility], [address] [place] [address], [address] Nasopharyngeal 09/10/2021 3: 45 PM PUBLIC HEALTH EPIDEMIOLOGIST 09/11/2021 12:07 AM PUBLIC HEALTH EPIDEMIOLOGIST Narrative CERNER - 09/11/2021 5:37 AM PUBLIC HEALTH EPIDEMIOLOGIST What is the reason for testing?->Screening prior to scheduled??procedure or surgery??(Batched) us Tom De Jesus MD LAB MICROBIOLOGY - GENERAL ORDER DINORA Final Result ORI [id number] [place] [address] documented in this encounter Visit Diagnoses Diagnosis Pre-operative laboratory examination Pre-procedural laboratory examination documented in this encounter Care Teams Severity Of Illness Coordinator Relationship Specialty Start Date End Date Carolyn Davis MD [address] [facility] [address] [facility] [address] [place] [address] PCP - General 10/31/15 documented as of this encounter
--- OUTSIDE RECORDS SUMMARY | 2024-07-19 22:21 | XMS_ITS | Encounter Summary ---
Author Organization [facility] Facility Care Team Providers Care Vat Tender Name Role Phone Unavailable Primary Care Provider Unavailabl e Encounter Details Date Type Department Care Team (Late st Contact Info) Description 08/10/2007 7:51 AM COMMERCIAL HOUSEKEEPER - 08/10/2007 12:04 PM COMMERCIAL HOUSEKEEPER Hospital Encounter [facility] Nathalie Mcconnell MD [address] [place] [address] Social History Tobacco Use Types Packs/Day Years Used Date Smoking Tobacco: Never Assessed Sex and Gender Information Value Date Recorded Sex Assigned at Not on file Legal Sex Male 1:59 AM COMMERCIAL HOUSEKEEPER Gender Identity Not on file Sexual Orientation Not on file documented as of this encounter Plan of Treatment Not on file documented as of this encounter Visit Diagnoses Not on filedocumented in this encounter
== END 2024-07-16 08:23 | disposition home or self-care (01) ==
PROVIDERS: PCP Physician Assistant; Visit Provider Family Medicine
DX: E03.9 Hypothyroidism, unspecified (principal); Z98.890 Other specified postprocedural states; Z79.01 Long term (current) use of anticoagulants; Z86.79 Personal history of other diseases of the circulatory system; G47.00 Insomnia, unspecified
CPT/HCPCS: 36415; 80053; 83540; 83550; 84443; 85014; 85018

== ENCOUNTER 2024-08-29 10:04 | Outpatient (RCR) | payer OTHER, SELFPAY ==
[2024-07-16 08:55] LABS: INR 1.9
[2024-08-29 11:03] LABS: INR 3.8; Prothrombin Time 37.8 Seconds (11.1-14.7)
== END 2024-10-14 23:59 | disposition home or self-care (01) ==
LOC: ANHLAB 10:04
PROVIDERS: PCP Physician Assistant; Visit Provider Internal Medicine Cardiovascular Disease
DX: Z95.2 Presence of prosthetic heart valve (principal); Z79.01 Long term (current) use of anticoagulants
CPT/HCPCS: 36415; 85610

== ENCOUNTER 2025-01-23 12:40 | Outpatient (RCR) | payer OTHER, SELFPAY ==
[2024-10-25 11:10] LABS: INR 3.2; Prothrombin Time 33.1 Seconds (11.1-14.7)
[2024-11-29 15:11] LABS: INR 2.8; Prothrombin Time 29.8 Seconds (11.1-14.7)
[2025-01-23 13:11] LABS: INR 3.4; Prothrombin Time 33.1 Seconds (11.1-14.7)
== END 2025-01-23 23:59 | disposition home or self-care (01) ==
LOC: ANHLAB 12:40
PROVIDERS: PCP Physician Assistant; Visit Provider Internal Medicine Cardiovascular Disease
DX: Z51.81 Encounter for therapeutic drug level monitoring (principal); Z95.2 Presence of prosthetic heart valve; Z79.01 Long term (current) use of anticoagulants
CPT/HCPCS: 36415; 85610

== ENCOUNTER 2025-04-21 11:43 | Outpatient (CLI) | payer OTHER, SELFPAY ==
--- OUTSIDE RECORDS SUMMARY | 2025-04-21 11:46 | XMS_ITS | Encounter Summary ---
Author Organization [facility] Healthcare Address [address] [place] [address] Care Team Providers Care Continuous Mining Machine Coal Miner Name Role Phone Ernie Baldwin MD Unavailable [phone] Tom De Jesus MD Unavailable Tyron Maya MD Primary Care Provider Encounter Details Date Type Department Care Team (Late st Contact Info) Description 01/23/2025 Orders Only [facility] [place] [facility] [address] [place] [address] Scanning, Provider Social History Tobacco Use Types Packs/Day Years Used Date Smoking Tobacco: Former Cigarettes 1 36.1 S tarted: 03/24/1989 Smokeless Tobacco: Never Comments:QUIT SMOKING 024 Alcohol Use Standard Drinks/Week Comments No 0 (1 standard drink = 0.6 oz pur e alcohol) Social Connection and Isolation Panel Answer Date Recorded In a typical week, how many times do you talk on the phone with family, friends, or neighbors? Once a week 03/24/2024 How often do you get togethe r with friends or relatives? Once a week 03/24/2024 How often do you attend chur ch or holiness services? Never 03/24/2024 Do you belong to any clubs o r organizations such as congregational groups, unions, fraternal or athletic groups, or [...] in the past 12 m [facility], were you homeless or living in a fpc (including now)? No 03/24/2024 Personal Safety Answer Date Recorded Have you ever been in or are you currently in a harmful physical or emotional relationship or is someone making you feel afraid or unsafe? Denies 03/22/2024 Sex and Gender Information Value Date Recorded Sex Assigned at Not on file Legal Sex Male 1:59 AM MEDICAL SALES ASSOCIATE Gender Identity Not on file Sexual Orientation Not on file documented as of this encounter Plan of Treatment Not on file documented as of this encounter Procedures Procedure Name Priority Date/Time Associated Diagnosis Comments SCAN - LABS 01/23/2025 documented in this encounter Results * SCAN - LABS (01/23/2025) Provider Scanning Final Result documented in this encounter Visit Diagnoses Not on filedocumented in this encounter Care Teams Continuous Mining Machine Coal Miner Relationship Specialty Start Date End Date Tyron Maya MD [address] [place] [address] PCP - General Family Medicine 01/18/25 Ernie Baldwin MD Surgeon Cardiothoracic Surgery 03/29/24 Tom De Jesus MD [address] [facility] [address], [address] [place] [address] Consulting Physician Cardiology 03/29/24 documented as of this encounter
--- OUTSIDE RECORDS SUMMARY | 2025-04-21 11:46 | XMS_ITS | Encounter Summary ---
Author Organization [facility] Healthcare Address [address] [place] [address] Care Team Providers Care Supervisor Cabinetmaker Name Role Phone Carolyn Davis MD Primary Care Provider Ernie Baldwin MD Unavailable [phone] Tom De Jesus MD Unavailable Tyron Maya MD Primary Care Provider Encounter Details Date Type Department Care Team (Late st Contact Info) Description 07/16/2024 Orders Only [facility] [place] Information Management [address] [place] [address] Scanning, Provider Social History Tobacco Use [...] often do you attend chur ch or jehovah's witness services? Never 03/24/2024 Do you belong to [...] on file Legal Sex Male 1:59 AM DISEASE EDUCATION SPECIALIST Gender Identity Not on file Sexual Orientation Not on file documented as of this encounter Plan of Treatment Not on file documented as of this encounter Procedures Procedure Name Priority Date/Time Associated Diagnosis Comments SCAN - LABS 07/16/2024 documented in this encounter Results * SCAN - LABS (07/16/2024) Provider Scanning Final Result documented in this encounter Visit Diagnoses Not on filedocumented in this encounter Care Teams Supervisor Cabinetmaker Relationship Specialty Start Date End Date Carolyn Davis MD [address] [place] [address] PCP - General 10/31/15 01/17/25 Tyron Maya MD [address] [place] [address] PCP - General Family Medicine 01/18/25 Ernie Baldwin MD [address] [place] [address] Surgeon Cardiothoracic Surgery 03/29/24 Tom De Jesus MD [address] [place] [address] Consulting Physician Cardiology 03/29/24 documented as of this encounter
--- OUTSIDE RECORDS SUMMARY | 2025-04-21 11:46 | XMS_ITS | Encounter Summary ---
Author Organization [facility] Healthcare Address [address] [place] [address] Care Team Providers Care Picker Tender Helper Name Role Phone Carolyn Davis MD Primary Care Provider Ernie Baldwin MD Unavailable Tom De Jesus MD Unavailable Tyron Maya MD Primary Care Provider Encounter Details Date Type Department Care Team (Late st Contact Info) Description 11/29/2024 Orders Only [facility] [place] Information Management [address] [place] [address] Scanning, Provider Social History Tobacco Use [...] often do you attend chur ch or confucianist services? Never 03/24/2024 Do you belong to any clubs o r organizations such as episcopal groups, unions, fraternal or athletic groups, or [...] any time in the past 12 m [facility], were you homeless or living in a usp (including now)? No 03/24/2024 Personal Safety Answer Date Recorded Have you ever been in or are you currently in a harmful physical or emotional relationship or is someone making you feel afraid or unsafe? 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 Gender Identity Not on file Sexual Orientation Not on file documented as of this encounter Plan of Treatment Not on file documented as of this encounter Procedures Procedure Name Priority Date/Time Associated Diagnosis Comments SCAN - LABS 11/29/2024 documented in this encounter Results * SCAN - LABS (11/29/2024) Provider Scanning Final Result documented in this encounter Visit Diagnoses Not on filedocumented in this encounter Care Teams Picker Tender Helper Relationship Specialty Start Date End Date Carolyn Davis MD [address] [place] [address] PCP - General 10/31/15 01/17/25 Tyron Maya MD [address] [place] [address] PCP - General Family Medicine 01/18/25 Ernie Baldwin MD [address] [place] [address] Surgeon Cardiothoracic Surgery 03/29/24 Tom De Jesus MD [address] [place] [address] Consulting Physician Cardiology 03/29/24 documented as of this encounter
--- OUTSIDE RECORDS SUMMARY | 2025-04-21 11:46 | XMS_ITS | Encounter Summary ---
Author Organization [facility] Healthcare Address [address] [place] [address] Care Team Providers Care Woodwind Reeds Cutter Name Role Phone Carolyn Davis MD Primary Care Provider Ernie Baldwin MD Unavailable [phone] Tom De Jesus MD Unavailable Tyron Maya MD Primary Care Provider Encounter Details Date Type Department Care Team (Late st Contact Info) Description 08/29/2024 Orders Only [facility] Health Information Management [address] [place] [address] Scanning, Provider Social History Tobacco Use [...] often do you attend chur ch or jewish services? Never 03/24/2024 Do you belong to any clubs o r organizations such as evangelical groups, unions, fraternal or athletic groups, or [...] any time in the past 12 m [facility], were you homeless or living in a longterm (including now)? No 03/24/2024 Personal Safety Answer Date Recorded Have you ever been in or are you currently in a harmful physical or emotional relationship or is someone making you feel afraid or unsafe? 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 Gender Identity Not on file Sexual Orientation Not on file documented as of this encounter Plan of Treatment Not on file documented as of this encounter Procedures Procedure Name Priority Date/Time Associated Diagnosis Comments SCAN - LABS 08/29/2024 documented in this encounter Results * SCAN - LABS (08/29/2024) Provider Scanning Final Result documented in this encounter Visit Diagnoses Not on filedocumented in this encounter Care Teams Woodwind Reeds Cutter Relationship Specialty Start Date End Date Carolyn Davis MD [address] [place] [address] PCP - General 10/31/15 01/17/25 Tyron Maya MD [address] [place] [address] PCP - General Family Medicine 01/18/25 Ernie Baldwin MD [address] [place] [address] Surgeon Cardiothoracic Surgery 03/29/24 Tom De Jesus MD [address] [place] [address] Consulting Physician Cardiology 03/29/24 documented as of this encounter
--- OUTSIDE RECORDS SUMMARY | 2025-04-21 11:46 | XMS_ITS | Clinical Summary ---
Author Organization [facility] [address] Address [address] [place] [address] Care Team Providers Care Renovation Plant Supervisor Name Role Phone Carolyn Davis MD Primary Care Provider + Source Comments [facility] [address] [facility],non-owned Affiliates and Associated Physician Practices is amultiple site organization consisting of ambulatory clinics and hospital sitesin [place], [place], [place] and [place]. This disclosure is being madepursuant to the Care Everywhere program and may not contain all information available regarding this patient. Last updated 18.[facility] [address] Allergies No known active allergies Medications * Be aware that medications may not be up to date on this document. Alwaysverify current medications with the patient. 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 Gender Identity Not on file Sexual Orientation Not on file Last Filed Vital Signs Vital Sign Reading Time Taken Comments Blood Pressure 142/86 11/23/2016 10:23 AM CDT Pulse 82 11/23/2016 10:23 AM CDT Temperature 36.8 C (98.2 F) 11/23/2016 10:23 AM CDT Respiratory Rate 16 11/23/2016 10:23 AM CDT [...] COLON CA SCREENING 1967 LIPID TESTING 1967 HIV SCREENING 10/15/1982 HEPATITIS C SCREENING 10/11/1985 DTAP/TDAP/TD VACCINES (1 - Tdap) 10/15/1986 HEPATITIS B VACCINE (1 of 3 - 19+ 3-dose series) 10/15/1986 PNEUMOCOCCAL VACCINE 50+ (1 of 2 - PCV) 10/15/1986 ZOSTER VACCINE (1 of 2) 10/15/2017 DEPRESSION SCREENING 08/03/2024 COVID-19 VACCINE (1 - 2023-2 5 season) 2025 INFLUENZA VACCINE (#1) 2025 HIB VACCINE Aged Out No longer eligi ble based on patient's age to complete this topic HPV VACCINE Aged Out No longer eligi ble based on patient's age to complete this topic MENINGOCOCCAL (Group B) VACC INE SHARED DECISION-MAKING Aged Out No longer eligibl e based on patient's age to complete this topic MENINGOCOCCAL GROUPS A/C/Y/W VACCINE Aged Out No longer eligible b ased on patient's age to complete this topic Insurance [facility] Address: [facility] [address] [place] [address] [facility] Address: [address] [place] [address] Care Teams Renovation Plant Supervisor Relationship Specialty Start Date End Date Carolyn Davis MD [address] [facility] [address] [place] [address] PCP - General Family Medicine 09/04/16
--- OUTSIDE RECORDS SUMMARY | 2025-04-21 11:46 | XMS_ITS | Encounter Summary ---
Author Organization [facility] Healthcare Address [address] [place] [address] Care Team Providers Care Legal Document Specialist Name Role Phone Carolyn Davis MD Primary Care Provider Ernie Baldwin MD Unavailable [phone] Tom De Jesus MD Unavailable Tyron Maya MD Primary Care Provider Encounter Details Date Type Department Care Team (Late st Contact Info) Description 10/25/2024 Orders Only [facility] Health Information Management [address] [place] [address] Scanning, Provider Social History Tobacco Use [...] often do you attend chur ch or sikh services? Never 03/24/2024 Do you belong to any clubs o r organizations such as anglican groups, unions, fraternal or athletic groups, or [...] in the past 12 m [facility], were you homeless or living in a penitentiary (including now)? No 03/24/2024 Personal Safety Answer Date Recorded Have you ever been in or are you currently in a harmful physical or emotional relationship or is someone making you feel afraid or unsafe? 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 Gender Identity Not on file Sexual Orientation Not on file documented as of this encounter Plan of Treatment Not on file documented as of this encounter Procedures Procedure Name Priority Date/Time Associated Diagnosis Comments SCAN - LABS 10/25/2024 documented in this encounter Results * SCAN - LABS (10/25/2024) Provider Scanning Final Result documented in this encounter Visit Diagnoses Not on filedocumented in this encounter Care Teams Legal Document Specialist Relationship Specialty Start Date End Date Carolyn Davis MD [address] [place] [address] PCP - General 10/31/15 01/17/25 Tyron Maya MD [address] [place] [address] PCP - General Family Medicine 01/18/25 Ernie Baldwin MD [address] [place] [address] Surgeon Cardiothoracic Surgery 03/29/24 Tom De Jesus MD [address] [place] [address] Consulting Physician Cardiology 03/29/24 documented as of this encounter
--- OUTSIDE RECORDS SUMMARY | 2025-04-21 11:46 | XMS_ITS | Clinical Summary ---
Author Organization [facility] [address] [facility] [address] [place] [address] Care Team Providers Care Provider Relations Specialist Name Role Phone Ernie Baldwin MD Unavailable [phone] Tom De Jesus MD Unavailable Tyron Maya MD Primary Care Provider Allergies No known active allergies Medications QUEtiapine XR (SEROquel XR) 50 mg tablet extended release 24 hr Take 1 tablet (50 mg total) by mouth 2 (two) times a day Active rOPINIRole (REQUIP) 4 mg tablet Take 1 tablet (4 mg total) by mouth 2 (two) times a day as needed 4 Active buPROPion SR (ZYBAN) 150 mg [...] tablet 1 4 Active acetaminophen 500 mg capsuleIndicat ions:Pain Take 2 capsules (1,000 mg total) by mouth every 6 (six) hours 4 Active polyethylene glycol (MIRALAX) 17 gram/dose bulk powderIndicati ons:constipati on Take 17 g by mouth daily as needed (constipatio n) 4 Active zolpidem CR (AMBIEN CR) 6.25 mg CR tablet Take 1 tablet (6.25 mg total) by mouth nightly at bedtime 4 Active dilTIAZem XR (dilTIAZem CD) 240 mg 24 hr capsule TAKE 1 CAPSULE(240 MG) BY MOUTH DAILY 90 capsule 1 5 Active warfarin (COUMADIN) 5 mg tablet TAKE 1 AND 1/2 TABLETS BY MOUTH DAILY 45 tablet 5 Active warfarin (COUMADIN) 5 mg tablet TAKE 1 AND 1/2 TABLETS BY MOUTH DAILY 45 tablet 5 025 Discontinued Active Problems Problem Noted Date Diagnosed Date Aortic valve replaced 04/29/2024 Aortic stenosis, severe 03/22/2024 Aortic valve stenosis 02/26/2024 Tobacco dependence 01/06/2024 Nonrheumatic aortic valve stenosis 01/06/2024 Supraventricular tachycardia 01/06/2024 Lipid screening 01/06/2024 Encounters Date Type Department Care Team Description 04/17/2025 Anticoagulation Visit [facility] Cardiology [address] [place] [phone] Lu Rhoades RN Aortic valve replaced (Primary Dx) 04/07/2025 Orders Only [facility] Health Information Management [address] [place] [phone] Scanning, Provider 04/07/2025 Anticoagulation Visit [facility] Cardiology [address] [place] [address] [place] [phone] Lu Rhoades RN Aortic valve replaced (Primary Dx) 03/24/2025 Orders Only [facility] Health Information Management [address] [place] [address] Scanning, Provider 03/24/2025 Anticoagulation Visit [facility] Cardiology [address] [place] [address] [place] [phone] Lu Rhoades RN Aortic valve replaced (Primary Dx) 03/10/2025 Orders Only [facility] Health Information Management [address] [place] [phone] Scanning, Provider 03/10/2025 Anticoagulation Visit [facility] Cardiology [address] [place] [address] [address] [place] [phone] Lu Rhoades RN Aortic valve replaced (Primary Dx) 02/27/2025 Anticoagulation Visit [facility] Cardiology [address] [place] [address] [address] [place] [phone] Lu Rhoades RN Aortic valve replaced (Primary Dx) 02/25/2025 Orders Only [facility] Health Information Management [address] [place] [address] Scanning, Provider 02/13/2025 Anticoagulation Visit [place] [address] [address] [place] [phone] Lu Rhoades RN Aortic valve replaced (Primary Dx) 01/27/2025 Orders Only [facility] Health Information Management [address] [place] [address] Scanning, Provider 01/25/2025 Telephone [facility]iology [address] [place] [address] [place] [phone] Tom De Jesus MD 01/23/2025 Orders Only [facility] Health Information Management [address] [place] [phone] Scanning, Provider 01/23/2025 Anticoagulation Visit [facility]iology [address] [place] [address] [place] [phone] Angela Vines RN Aortic valve replaced (Primary Dx) 01/23/2025 Telephone [facility] Cardiology [address] [place] [address] [place] [phone] Angela Aguayo MA INR Needed from Last 3 Months Surgical History Surgery Date Site/Laterality Comments TYMPANOSTOMY TUBE PLACEMENT COLONOSCOPY CARDIAC CATHETERIZATION 02/23/2024 OTHER SURGICAL HISTORY JAVIER Medical History Medical History Date Comments Paroxysmal SVT (supraventric ular tachycardia) Hypertension Sleep apnea uses cpap Nonrheumatic aortic (valve) stenosis Heart murmur Atrial fibrillation (HCC) Seizures (HCC) 1 x 3-4 years [...] 36.1 S tarted: 03/24/1989 Smokeless Tobacco: Never Tobacco [...] 03/24/2024 How often do you attend [facility] or taoism services? Never 03/24/2024 Do you [...] time in the past [facility], were you homeless or living in a senior living (including now)? No 03/24/2024 Personal Safety Answer Date Recorded Have you ever been in or are you currently in a harmful physical or emotional relationship or is someone making you feel afraid or unsafe? 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 Gender Identity Not on file Sexual Orientation Not on file Obstetrics History Last Filed Vital Signs Vital Sign Reading Time Taken Comments Blood Pressure 128/62 01/18/2025 12:43 PM CDT Pulse 76 01/18/2025 12:43 PM CDT Temperature 36.5 C (97.7 F) 03/30/2024 12:38 PM CDT Respiratory Rate 16 01/18/2025 12:43 PM CDT Oxygen Saturation 97% 01/18/2025 12:43 PM CDT Inhaled Oxygen Concentration - - Weight 87.1 kg (192 lb) 01/18/2025 12:43 PM CDT Height 182.9 cm (6') 01/18/2025 12:43 PM CDT Body Mass Index 26.04 01/18/2025 12:43 PM CDT Plan of Treatment Health Maintenance Due Date Last Done Comments Colon Cancer Screening-Colonoscopy 1967 Depression Screening 1967 Hepatitis C Screening 1967 Prostate Cancer Screening-PSA 1967 DTaP/Tdap/Td Vaccine (1 - Tdap) 10/15/1978 Hepatitis B Screening 10/15/1985 Regular Well Visit/Exam 18-64 10/15/1985 Zoster Vaccine (1 of 2) 10/15/2017 Covid-19 Vaccine (3 - 2024-2 6 season) 2025 06/05/2021, 05/15/2021 Influenza Vaccine (#1) 2025 Pneumococcal vaccine <65 Aged Out No longer eligible based on patient's age to complete this topic Medical Devices Implanted Type Area Electrical Engineering Manager Device Identifier Shelf Expiration Date Model / Serial / Lot On-X Intrnl Valve Coronary Aortic Mechanical On X 23mm [id number] - [id number] - [id number] Implanted:Qty: 1 on 03/22/2024 by Ernie Baldwin MD at [facility] N/A: Heart On-X Intrnl [id number] 01/13/2029 [id number] / [id number] / [employer] Screw Bone Slf Drl Full Thread Locking 3.5x16mm Ti 100.035.16 - [id number] Implanted:Qty: 6 on 03/22/2024 by Ernie Baldwin MD at [facility] N/A: Chest Wall [employer] 100.035.1 6 / / [employer] Screw Bone Slf Drl Full Thread Locking 3.5x18mm Ti 100.035.18 - [id number] Implanted:Qty: 10 on 03/22/2024 by Ernie Baldwin MD at [facility] N/A: Chest Wall [employer] 100.035.1 8 / / [employer] Plate Bone Low Profile 4 Hole Box Sternum Ti 115.103.04 - [id number] Implanted:Qty: 1 on 03/22/2024 by Ernie Baldwin MD at [facility] N/A: Chest Wall [employer] 115.103.0 4 / / [employer] Plate Bone Low Profile 6 Hole O Concave Sternum Ti 115.604.06 - [id number] Implanted:Qty: 1 on 03/22/2024 by Ernie Baldwin MD at [facility] N/A: Chest Wall [employer] 115.604.0 6 / / [employer] Plate Bone Low Profile 6 Hole H Shape Sternum Ti 115.102.06 - [id number] Implanted:Qty: 1 on 03/22/2024 by Ernie Baldwin MD at [facility] N/A: Chest Wall [employer] 115.102.0 6 / / Procedures Procedure Name Priority Date/Time Associated Diagnosis Comments PROTIME-INR Routine 04/14/2025 SCAN - LABS 04/07/2025 PROTIME-INR Routine 04/07/2025 SCAN - LABS 03/24/2025 PROTIME-INR Routine 03/24/2025 SCAN - LABS 03/10/2025 PROTIME-INR Routine 03/10/2025 SCAN - LABS 02/25/2025 PROTIME-INR Routine 02/25/2025 PROTIME-INR Routine 02/13/2025 SCAN - LABS 01/27/2025 SCAN - LABS 01/23/2025 PROTIME-INR Routine 01/23/2025 from Last 3 Months Results * (ABNORMAL) Protime-INR (04/14/2025) INR 2.80(A) 0.90 - 1.10 EXTERNAL LAB Blood us Historical Provider LAB BLOOD ORDERABLES Rita l Result EXTERNAL LAB * SCAN - LABS (04/07/2025) us Provider Scanning Final Result * (ABNORMAL) Protime-INR (04/07/2025) INR 2.20(A) 0.90 - 1.10 EXTERNAL LAB Blood Result [facility] Historical Provider MD LAB BLOOD ORDERABLES Rita l Result EXTERNAL LAB * SCAN - LABS (03/24/2025) Provider Scanning Final Result * (ABNORMAL) Protime-INR (03/24/2025) INR 2.40(A) 0.90 - 1.10 EXTERNAL LAB Blood Result [facility] Provider MD LAB BLOOD ORDERABLES Rita l Result Performing Organization Address City/[facility]/ZIP Co de Phone Number EXTERNAL LAB * SCAN - LABS (03/10/2025) Provider Scanning Final Result * (ABNORMAL) Protime-INR (03/10/2025) INR 3.00(A) 0.90 - 1.10 EXTERNAL LAB Blood Result [facility] Provider MD LAB BLOOD ORDERABLES Rita l Result Performing Organization Address [facility] Co de Phone Number EXTERNAL LAB * SCAN - LABS (02/25/2025) Provider Scanning Final Result * (ABNORMAL) Protime-INR (02/25/2025) INR 2.40(A) 0.90 - 1.10 EXTERNAL LAB Blood Result [facility] Provider MD LAB BLOOD ORDERABLES Rita l Result Performing Organization Address City/[facility]/ZIP Co de Phone Number EXTERNAL LAB * (ABNORMAL) Protime-INR (02/13/2025) INR 2.80(A) 0.90 - 1.10 EXTERNAL LAB Blood us Historical Provider MD LAB BLOOD ORDERABLES Edit ed Result - Final EXTERNAL LAB * SCAN - LABS (01/27/2025) us Provider Scanning Final Result * SCAN - LABS (01/23/2025) us Provider Scanning Final Result * (ABNORMAL) Protime-INR (01/23/2025) INR 3.40(A) 0.90 - 1.10 EXTERNAL LAB Blood Historical Provider LAB BLOOD ORDERABLES Rita l Result EXTERNAL LAB from Last 3 Months Insurance [facility] [employer] [facility]O Address: [facility] [address] [place] [address] [facility] [employer] [employer]O Address: [address] [place] [phone] [facility] [employer] [employer] [employer]O Address: [address] [address] Advance Directives For more information, please contact: [phone] * Full Code (Latest Code Status on File) Date Activated Date Inactivated Comments 03/22/2024 12:28 PM 03/30/2024 6:00 PM Care Teams Provider Relations Specialist Relationship Specialty Start Date End Date Tyron Maya MD [address] [facility] [address] [place] [address] PCP - General Family Medicine 01/18/25 Ernie Baldwin MD Surgeon Cardiothoracic Surgery 03/29/24 Tom De Jesus MD [address], [address] [place] [address] Consulting Physician Cardiology 03/29/24
--- OUTSIDE RECORDS SUMMARY | 2025-04-21 11:46 | XMS_ITS | Encounter Summary ---
Author Organization [facility] Healthcare Address [address] [place] [address] Care Team Providers Care Mortgage Specialist Name Role Phone Ernie Baldwin MD Unavailable [phone] Tom De Jesus MD Unavailable Tyron Maya MD Primary Care Provider Encounter Details Date Type Department Care Team (Late st Contact Info) Description 03/24/2025 Orders Only [facility] Health Information Management [address] [place] [address] Scanning, Provider Social History Tobacco [...] often do you attend chur ch or jew services? 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 Gender Identity Not on file Sexual Orientation Not on file documented as of this encounter Plan of Treatment Not on file documented as of this encounter Procedures Procedure Name Priority Date/Time Associated Diagnosis Comments SCAN - LABS 03/24/2025 documented in this encounter Results * SCAN - LABS (03/24/2025) Provider Scanning Final Result documented in this encounter Visit Diagnoses Not on filedocumented in this encounter Care Teams Mortgage Specialist Relationship Specialty Start Date End Date Tyron Maya MD [address] [place] [address] PCP - General Family Medicine 01/18/25 Ernie Baldwin MD Surgeon Cardiothoracic Surgery 03/29/24 Tom De Jesus MD [address] [facility] [address], [address] [place] [address] Consulting Physician Cardiology 03/29/24 documented as of this encounter
--- OUTSIDE RECORDS SUMMARY | 2025-04-21 11:46 | XMS_ITS | Encounter Summary ---
Author Organization [facility] Healthcare Address [address] [place] [address] Care Team Providers Care Hydrogen Plant Operator Name Role Phone Ernie Baldwin MD Unavailable [phone] Tom De Jesus MD Unavailable Tyron Maya MD Primary Care Provider Encounter Details Date Type Department Care Team (Late st Contact Info) Description 01/27/2025 Orders Only [facility] Health Information Management [address] [place] [address] Scanning, Provider Social History Tobacco [...] often do you attend chur ch or christian services? 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 Gender Identity Not on file Sexual Orientation Not on file documented as of this encounter Plan of Treatment Not on file documented as of this encounter Procedures Procedure Name Priority Date/Time Associated Diagnosis Comments SCAN - LABS 01/27/2025 documented in this encounter Results * SCAN - LABS (01/27/2025) Provider Scanning Final Result documented in this encounter Visit Diagnoses Not on filedocumented in this encounter Care Teams Hydrogen Plant Operator Relationship Specialty Start Date End Date Tyron Maya MD [address] [place] [address] PCP - General Family Medicine 01/18/25 Ernie Baldwin MD Surgeon Cardiothoracic Surgery 03/29/24 Tom De Jesus MD [address] [facility] [address], [address] [place] [address] Consulting Physician Cardiology 03/29/24 documented as of this encounter
[2025-04-21 12:11] LABS: Hematocrit 36.5 % (42.0-52.0); Hemoglobin 12.3 g/dL (14.0-18.0); Immature Granulocyte Percent A 0.4 % (0-0.5); Lymphocytes Absolute Auto 2.06 K/mm3 (0.9-3.2); Mean Corpuscular HGB Conc 33.7 g/dl (32-36); Mean Corpuscular Hemoglobin 28.9 pg (26-34); Mean Corpuscular Volume 85.9 fl (80-100); Nucleated Red Blood Cells Absolute Auto 0.000 K/mm3 (0.0-0.012); Nucleated Red Blood Cells Perc 0.0 % (0.0-0.2); Platelet Count Result 143 k/mm3 (150-375); Red Blood Count 4.25 M/mm3 (4.6-6.20); White Blood Count 7.4 K/mm3 (4.5-10.0)
[2025-04-21 12:24] LABS: INR 3.7; Partial Thromboplastin Time 39.0 Seconds (22.3-36.8); Prothrombin Time 35.2 Seconds (11.1-14.7)
[2025-04-21 12:30] LABS: Anion Gap 4 mmol/L (4-12); Blood Urea Nitrogen 10 mg/dL (9-20); CRP 0.5 mg/dL (<1.0); Calcium 8.8 mg/dL (8.4-10.2); Carbon Dioxide 27 mmol/L (22-30); Chloride 107 mmol/L (98-107); Estimated Glomerular Filt Rate > 60; Glucose 119 mg/dL (65-110); Potassium 3.9 mmol/L (3.4-5.0); Sodium 138 mmol/L (137-145)
== END 2025-04-21 11:44 | disposition home or self-care (01) ==
LOC: ANHLAB 11:44
PROVIDERS: PCP Family Medicine
DX: R21 Rash and other nonspecific skin eruption (principal); R23.3 Spontaneous ecchymoses; Z79.01 Long term (current) use of anticoagulants
CPT/HCPCS: 36415; 80048; 85025; 85610; 85652; 85730; 86037; 86140

== ENCOUNTER 2025-06-19 11:56 | Emergency (ER) | payer OTHER, SELFPAY ==
[2025-06-19 12:38] VITALS: BP 148/63; PULSE 63; RESP 16; TEMP 36.9; O2SAT 98
== END 2025-06-19 14:03 | disposition left against medical advice (07) ==
PROVIDERS: PCP Family Medicine
DX: R31.9 Hematuria, unspecified (principal)
CPT/HCPCS: 99199

== ENCOUNTER 2025-06-19 17:04 | Observation (INO) | payer OTHER, SELFPAY ==
--- NOTE | ~2025-06-19 | CT_ITS ---
EXAMINATION: CT chest, abdomen and pelvis without contrast: DATE: 02/16/2025 INDICATION: 79-year-old male with chest wall bruising on the left side. Elevated INR. No history of trauma. TECHNIQUE: CT was performed through the chest, abdomen and pelvis without oral contrast and IV contrast. Radiation dose, 514 and mgy cm.. COMPARISON: CT chest 07/12/2024. FINDINGS: Postoperative changes of chest with aortic valve and allograft placement is noted. Cardiomegaly is noted. Good sized pleural effusion is noted on the right side. No evidence of pericardial effusion. Below the diaphragm, no focal lesions of the liver and spleen. The gallbladder, pancreas, kidneys do not show acute findings. No evidence small bowel obstruction. No evidence of free fluid in the peritoneal cavity. No acute findings thoracic spine, lumbar spine and pelvic bones. IMPRESSION: 1. Postsurgical changes of chest as described above with cardiomegaly and right- sided pleural effusion. Emphysematous lungs. 2. No acute findings noted in the abdomen and pelvis. 3. Overall visualization is limited due to lack of IV contrast especially to evaluate the vascular structures and solid viscera.. Reviewed, dictated and finalized at location [facility] [employer] [facility] IMPRESSION: 1. Postsurgical changes of chest as described above with cardiomegaly and right -sided pleural effusion. Emphysematous lungs. 2. No acute findings noted in the abdomen and pelvis. 3. Overall visualization is limited due to lack of IV contrast especially to ev aluate the vascular structures and solid viscera..
[2025-06-19 17:07] VITALS: BP 144/61; PULSE 82; RESP 20; TEMP 36.8; O2SAT 98
--- NOTE | 2025-06-19 18:39 | ED.RECABL ---
HPI - Recheck/Abnormal Lab/Rx General Chief Complaint: Recheck/Abnormal Lab/Rx <Eve Ramirez PA-C - Last Filed: 06/19/25 18:55> Stated Complaint: INR greater than 10, pink urine <vEe Ramirez PA-C - Last Filed: 06/19/25 18:55> Time Seen by Provider: 06/19/25 18:40 <KAMI Weems Last Filed: 06/19/25 18:55> Focused HPI: Patient is a 59-year-old male who presents the ED with report of elevated INR. Patient has Hx of mechanical aortic valve replacement. On warfarin 7.5mg daily with INR goal 2.5-3.5. Last dose last night. States he performed a home test for his INR on Thursday and the machine said error or > 8. Had outpatient labs drawn today, was notified that his INR was 10.1. Referred to the ED for further evaluation. Patient states he has been feeling somewhat fatigued. Denies bleeding. Denies BRBPR, melena, epistaxis. Does report his urine has been pink tinged since this weekend. Denies dysuria. Denies significant abdominal or back pain. Denies hx of kidney stone. GENERAL: Well-appearing, well-nourished, and in no acute distress. HEAD: Normocephalic, atraumatic. CHEST: Clear to auscultation. ?No respiratory distress. HEART: Regular rate and rhythm.? NEURO: ?Alert and oriented x3. Patient screened in triage and initial orders placed.? ?Additional care and disposition to be based upon?diagnostic testing and treatment. <Eve Ramirez PA-C - Last Filed: 06/19/25 18:55> Source: patient <KAMI Weems Last Filed: 06/19/25 18:55> Mode of arrival: ambulatory <KAMI Weems Last Filed: 06/19/25 18:55> Limitations: no limitations <KAMI Weems Last Filed: 06/19/25 18:55> History of Present Illness HPI narrative: patient 59-year-old gentleman presents emergency department chief complaint of elevated INR patient reports that he had an aortic valve replacement reports that his goal INR is between 2.53.5 the patient states that he checked his INR at home and it was greater than 8 the patient had outpatient labs today that showed his INR was 10.1 the patient reports no blood in his stool denies epistaxis denies bleeding from his gums. Patient does report that he has had some pink-tinged urine recently <Marcell Gomez MD - Last Filed: 06/19/25 22:10> Related Data Home Medications: Home Medications ?Medication ?Instructions ?Recorded ?Confirmed ?Last Taken ?Type aspirin 81 mg chewable tablet 81 mg PO DAILY 08/22/22 06/05/25 Unknown History bupropion HCl 150 mg tablet,12 hr 150 mg PO BID 04/05/24 06/05/25 Unknown History sustained-release <Eve Ramirez PA-C - Last Filed: 06/19/25 18:55> Allergies/Adverse Reactions: Allergies Allergy/AdvReac Type Severity Reaction Status Date / Time No Known Allergies Allergy Verified 06/19/25 12:41 <Eve Ramirez PA-C - Last Filed: 06/19/25 18:55> Review of Systems Review of Systems: A 10 system review of systems was completed on the patient and is negative except for what is stated in the HPI. Nursing and ancillary documentation was reviewed. <Marcell Gomez MD - Last Filed: 06/19/25 22:10> [facility] Past Medical History Medical History: Medical History Paroxysmal A-fib Carotid stenosis Acute pain History of bipolar disorder TIA (transient ischemic attack) Alcohol abuse Colon cancer screening Weight gain Vitamin D deficiency Viral URI Tobacco abuse SVT (supraventricular tachycardia) Sebaceous cyst Psychophysiological insomnia Postural dizziness with presyncope Panic disorder Nicotine dependence, unspecified, uncomplicated Lesion of finger Infective tonsillitis Hyperlipidemia type III Hx of supraventricular tachycardia Groin ringworm Fear of heights Epidermal inclusion cyst Dysfunction of both eustachian tubes Disappearance and of family member Dietary counseling and surveillance (04/28/18) COPD exacerbation Complicated grieving Chest pain on exertion Atrial fibrillation with RVR Acute non-recurrent frontal sinusitis Acute maxillary sinusitis, unspecified Acute bacterial bronchitis Impingement syndrome involving patellar fat pad of left knee Left knee injury Medial meniscus tear Left knee pain Knee pain Sprain of left patella Arthritis of hand Alcohol abuse DJD of AC (acromioclavicular) joint Right shoulder pain Bicipital tendinitis Occipital subdural bleed Alcohol withdrawal seizure Grand mal seizure Seizure Diabetes mellitus, new onset Shoulder pain, right Shoulder arthritis Heart palpitations History of recent steroid use COVID-19 long hauler Oral pharyngeal candidiasis Cervical radiculopathy Aortic stenosis Elevated liver enzymes Screening for colon cancer Intertriginous candidiasis History of alcohol abuse Bipolar disorder with current episode depressed Effusion, right knee Pain of right calf Pain of right calf Tobacco dependence Major depressive disorder, recurrent severe without psychotic features Chronic insomnia Benign essential HTN Prediabetes Restless legs syndrome Obstructive sleep apnea Alcohol abuse <Eve Ramirez PA-C - Last Filed: 06/19/25 18:55> Family History Family History: Family History Mother Family history of type 2 diabetes mellitus Patient's mother is Sibling Hypertension Other Cerebrovascular accident Family history of malignant neoplasm <Eve Ramirez PA-C - Last Filed: 06/19/25 18:55> Social History Social History: Social History Social History: Smoking packs per day: 1 Smoking cigarettes per day: 20.0 Years smoked: 30 Smoking pack-years: 30.00 Smoking status: Current every day smoker Tobacco type: cigarettes Second hand tobacco smoke exposure: No Smoking end date: 03/03/24 Alcohol intake: former Substance use: current Substance use type: marijuana Last use: 03/07/24 Do You Feel Safe in your Home?: Yes Lack of Transportation: No Lack of Food: Never True Current Housing: I Have Housing Concerned About Future Housing: No Difficulty Paying Gas/Electric Bills: No Difficulty Paying for Meds: No Currently Unemployed: No Education: Decline to Answer Difficulty w/ Childcare or Family Care: No Living arrangements: with family Occupation/Education: occupation 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 HEAD: Normocephalic, atraumatic. EYES: PERRLA and EOMI. ENT: Nares clear, no rhinorrhea or epistaxis. Mucous membranes moist. NECK: Supple. CHEST: Clear to auscultation. No respiratory distress. HEART: Regular rate and rhythm. No murmur heard. Normal peripheral pulses. ABDOMEN: Soft, nontender, nondistended, normal active bowel sounds. EXTREMITIES: Normal range of motion. No edema. SKIN: Warm, dry, no rash. NEURO: No focal deficits. Alert and oriented x3. PSYCH: Normal mood and affect. <Marcell Gomez MD - Last Filed: 06/19/25 22:10> Course Vital Signs Vital signs: Vital Signs Temperature 36.8 C 06/19/25 17:07 Pulse Rate 82 06/19/25 17:07 Respiratory Rate 20 06/19/25 17:07 Blood Pressure 144/61 H 06/19/25 17:07 Pulse Oximetry 98 06/19/25 17:07 Oxygen Delivery Room Air 06/19/25 17:07 Temperature 36.8 C 06/19/25 17:07 Pulse Rate 72 06/19/25 20:08 Respiratory Rate 16 06/19/25 20:08 Blood Pressure 143/69 H 06/19/25 20:08 Pulse Oximetry 98 06/19/25 20:08 Oxygen Delivery Room Air 06/19/25 17:07 <Eve Ramirez PA-C - Last Filed: 06/19/25 18:55> Vital Signs Temperature 36.8 C 06/19/25 17:07 Pulse Rate 82 06/19/25 17:07 Respiratory Rate 20 06/19/25 17:07 Blood Pressure 144/61 H 06/19/25 17:07 Pulse Oximetry 98 06/19/25 17:07 Oxygen Delivery Room Air 06/19/25 17:07 Temperature 36.8 C 06/19/25 17:07 Pulse Rate 72 06/19/25 20:08 Respiratory Rate 16 06/19/25 20:08 Blood Pressure 143/69 H 06/19/25 20:08 Pulse Oximetry 98 06/19/25 20:08 Oxygen Delivery Room Air 06/19/25 17:07 <Marcell Gomez MD - Last Filed: 06/19/25 22:10> MDM - Recheck/Abnormal Lab/Rx MDM Narrative Medical decision making narrative: MSE by EDITH in triage. <Eve Ramirez PA-C - Last Filed: 06/19/25 18:55> MSE by EDITH in triage. patient is alert oriented in no acute distress INR was 11.8. the patient has no gross bleeding but does have some microscopic blood in his urine. Patient be given 5 mg p.o. vitamin K and will be instructed to hold his INR recheck his INR in 2 days and have his INR still elevated he should hold on additional 2 days prior to discharge patient noticed that he had a bruise on the left side of his chest a CT scan was obtained that did show a larger pleural effusion on the right side due to this the patient will be observed <Marcell Gomez MD - Last Filed: 06/19/25 22:10> Lab Data Result diagrams: 06/19/25 20:03 06/19/25 20:03 <Eve Ramirez PA-C - Last Filed: 06/19/25 18:55> Labs: Lab Results 06/19/25 06/19/25 Range/Units 20:03 20:47 WBC 9.2 (4.5-10.0) K/mm3 RBC 4.18 L (4.6-6.20) M/mm3 Hgb 12.4 L (14.0-18.0) g/dL Hct 35.9 L (42.0-52.0) % MCV 85.9 (80-100) fl MCH 29.7 (26-34) pg MCHC 34.5 (32-36) g/dl RDW 14.9 H (11.5-14.5) % Plt Count 136 L (150-375) k/mm3 MPV 9.3 (7.4-10.4) fl Immature Gran % (Auto) 0.4 (0-0.5) % Neut % (Auto) 61.9 (45.5-73.1) % Lymph % (Auto) 26.5 (18.3-44.2) % [place] % (Auto) 9.5 H (2.6-8.5) % Eos % (Auto) 1.4 (0-4.4) % Baso % (Auto) 0.3 (0.2-1.2) % Lymph # (Auto) 2.44 (0.9-3.2) K/mm3 [place] # (Auto) 0.9 H (0.1-0.6) K/mm3 Eos # (Auto) 0.1 (0-0.3) K/mm3 Baso # (Auto) 0.0 (0.0-0.1) K/mm3 Abs Immat Gran (auto) 0.04 H (0.00-0.031) K/mm3 Absolute Neuts (auto) 5.7 (1.3-6.7) K/mm3 Absolute Nucleated RBC 0.000 (0.0-0.012) K/mm3 Nucleated RBC % 0.0 (0.0-0.2) % PT 84.5 H (11.1-14.7) Seconds INR 11.8 H* APTT 142.9 H (22.3-36.8) Seconds Sodium 136 L (137-145) mmol/L Potassium 3.3 L (3.4-5.0) mmol/L Chloride 105 (98-107) mmol/L Carbon Dioxide 24 (22-30) mmol/L Anion Gap 7 (4-12) mmol/L BUN 8 L (9-20) mg/dL Creatinine 0.70 (0.7-1.3) mg/dL Estim Creat Clear Calc 110 ml/min Estimated GFR > 60 (59 - ) Glucose 127 H (65-110) mg/dL Calcium 8.8 (8.4-10.2) mg/dL Urine Color Dark yellow (Yellow) Urine Appearance Cloudy H (Clear) Urine pH 5.5 (5.0-9.0) Ur Specific [place] 1.020 (1.001-1.035) Urine Protein 2+ H (Negative) mg/dL Urine Glucose (UA) Negative (Negative) mg/dL Urine Ketones Trace H (Negative) mg/dL Ur Blood (Man) 3+ H (Negative) Urine Nitrate Negative (Negative) Urine Bilirubin 1+ H (Negative) Urine Urobilinogen 1.0 (<2.0) mg/dL Leukocyte Esterase Rfl 1+ H (Negative) LETY/UL Urine RBC >100 H (0-2) /hpf Urine WBC 0-5 (0-3) /hpf Ur Squamous Epith Cells Occasional (Few) /hpf Urine Bacteria None seen /hpf Urine Casts 3-5 <Eve Ramirez PA-C - Last Filed: 06/19/25 18:55> Lab Results 06/19/25 06/19/25 Range/Units 20:03 20:47 WBC 9.2 (4.5-10.0) K/mm3 RBC 4.18 L (4.6-6.20) M/mm3 Hgb 12.4 L (14.0-18.0) g/dL Hct 35.9 L (42.0-52.0) % MCV 85.9 (80-100) fl MCH 29.7 (26-34) pg MCHC 34.5 (32-36) g/dl RDW 14.9 H (11.5-14.5) % Plt Count 136 L (150-375) k/mm3 MPV 9.3 (7.4-10.4) fl Immature Gran % (Auto) 0.4 (0-0.5) % Neut % (Auto) 61.9 (45.5-73.1) % Lymph % (Auto) 26.5 (18.3-44.2) % [place] % (Auto) 9.5 H (2.6-8.5) % Eos % (Auto) 1.4 (0-4.4) % Baso % (Auto) 0.3 (0.2-1.2) % Lymph # (Auto) 2.44 (0.9-3.2) K/mm3 [place] # (Auto) 0.9 H (0.1-0.6) K/mm3 Eos # (Auto) 0.1 (0-0.3) K/mm3 Baso # (Auto) 0.0 (0.0-0.1) K/mm3 Abs Immat Gran (auto) 0.04 H (0.00-0.031) K/mm3 Absolute Neuts (auto) 5.7 (1.3-6.7) K/mm3 Absolute Nucleated RBC 0.000 (0.0-0.012) K/mm3 Nucleated RBC % 0.0 (0.0-0.2) % PT 84.5 H (11.1-14.7) Seconds INR 11.8 H* APTT 142.9 H (22.3-36.8) Seconds Sodium 136 L (137-145) mmol/L Potassium 3.3 L (3.4-5.0) mmol/L Chloride 105 (98-107) mmol/L Carbon Dioxide 24 (22-30) mmol/L Anion Gap 7 (4-12) mmol/L BUN 8 L (9-20) mg/dL Creatinine 0.70 (0.7-1.3) mg/dL Estim Creat Clear Calc 110 ml/min Estimated GFR > 60 (59 - ) Glucose 127 H (65-110) mg/dL Calcium 8.8 (8.4-10.2) mg/dL Urine Color Dark yellow (Yellow) Urine Appearance Cloudy H (Clear) Urine pH 5.5 (5.0-9.0) Ur Specific [place] 1.020 (1.001-1.035) Urine Protein 2+ H (Negative) mg/dL Urine Glucose (UA) Negative (Negative) mg/dL Urine Ketones Trace H (Negative) mg/dL Ur Blood (Man) 3+ H (Negative) Urine Nitrate Negative (Negative) Urine Bilirubin 1+ H (Negative) Urine Urobilinogen 1.0 (<2.0) mg/dL Leukocyte Esterase Rfl 1+ H (Negative) LETY/UL Urine RBC >100 H (0-2) /hpf Urine WBC 0-5 (0-3) /hpf Ur Squamous Epith Cells Occasional (Few) /hpf Urine Bacteria None seen /hpf Urine Casts 3-5 <Marcell Gomez MD - Last Filed: 06/19/25 22:10> Discharge Plan Discharge Clinical Impression: Supratherapeutic INR, Pleural effusion <Eve Ramirez PA-C - Last Filed: 06/19/25 18:55> Patient Disposition: Still a Patient <Eve Ramirez PA-C - Last Filed: 06/19/25 18:55> Condition: Stable <Eve Ramirez PA-C - Last Filed: 06/19/25 18:55> Instructions: Elevated INR (ED) <Eve Ramirez PA-C - Last Filed: 06/19/25 18:55> Additional Instructions: your given vitamin K in the emergency department today. Please hold your Coumadin for at least 2 days recheck your INR and 48 hours if it is still significantly elevated continue holding your Coumadin for an additional 2 days. Please avoid high impact events please avoid falling please avoid head injury. If you develops significant bleeding please return to the emergency department. <KAMI Weems Last Filed: 06/19/25 18:55> Patient Language: Chinese <Eve Ramirez PA-C - Last Filed: 06/19/25 18:55> Prescriptions: No Action aspirin 81 mg Tablet,Chewable 81 mg PO DAILY bupropion HCl 150 mg tablet sustained-release 12 hr 150 mg PO BID cyclobenzaprine 5 mg tablet 5 mg PO TID PRN (Reason: muscle spasm) Qty: 20 0RF triamcinolone acetonide 0.5 % cream 1 applic topical BID Qty: 15 0RF warfarin 5 mg tablet 5 mg PO DAILY Qty: 30 0RF diltiazem HCl 240 mg capsule,extended release 24hr See Rx Instructions .ROUTE .COMPLEX Qty: 90 0RF Dose Instruction: TAKE 1 CAPSULE(240 MG) BY MOUTH DAILY Rx Instructions: TAKE 1 CAPSULE(240 MG) BY MOUTH DAILY quetiapine 50 mg tablet extended release 24 hr See Rx Instructions .ROUTE .COMPLEX Qty: 180 1RF Dose Instruction: TAKE 1 TABLET BY MOUTH TWICE DAILY Rx Instructions: TAKE 1 TABLET BY MOUTH TWICE DAILY rosuvastatin 40 mg tablet 40 mg PO DAILY Qty: 90 1RF metoprolol tartrate 25 mg tablet See Rx Instructions .ROUTE .COMPLEX Qty: 180 1RF Dose Instruction: TAKE 2 TABLETS BY MOUTH TWICE DAILY Rx Instructions: TAKE 2 TABLETS BY MOUTH TWICE DAILY ropinirole 4 mg tablet See Rx Instructions .ROUTE .COMPLEX Qty: 180 2RF Dose Instruction: TAKE 1 TABLET BY MOUTH THREE TIMES DAILY Rx Instructions: TAKE 1 TABLET BY MOUTH THREE TIMES DAILY zolpidem 6.25 mg tablet,ext release multiphase 6.25 mg PO QHS Qty: 30 0RF <Eve Ramirez PA-C - Last Filed: 06/19/25 18:55> Follow-up/Referrals: Tyron Maya MD [Primary Care Provider, Family Practice] <Eve Ramirez PA-C - Last Filed: 06/19/25 18:55>
[2025-06-19 20:08] VITALS: BP 143/69; PULSE 72; RESP 16; O2SAT 98
[2025-06-19 20:15] LABS: Hematocrit 35.9 % (42.0-52.0); Hemoglobin 12.4 g/dL (14.0-18.0); Immature Granulocyte Percent A 0.4 % (0-0.5); Lymphocytes Absolute Auto 2.44 K/mm3 (0.9-3.2); Mean Corpuscular HGB Conc 34.5 g/dl (32-36); Mean Corpuscular Hemoglobin 29.7 pg (26-34); Mean Corpuscular Volume 85.9 fl (80-100); Nucleated Red Blood Cells Absolute Auto 0.000 K/mm3 (0.0-0.012); Nucleated Red Blood Cells Perc 0.0 % (0.0-0.2); Platelet Count Result 136 k/mm3 (150-375); Red Blood Count 4.18 M/mm3 (4.6-6.20); White Blood Count 9.2 K/mm3 (4.5-10.0)
[2025-06-19 20:26] LABS: Prothrombin Time 84.5 Seconds (11.1-14.7)
[2025-06-19 20:28] LABS: Anion Gap 7 mmol/L (4-12); Blood Urea Nitrogen 8 mg/dL (9-20); Calcium 8.8 mg/dL (8.4-10.2); Carbon Dioxide 24 mmol/L (22-30); Chloride 105 mmol/L (98-107); Estimated CRCL calculation 110 ml/min; Estimated Glomerular Filt Rate > 60; Glucose 127 mg/dL (65-110); Partial Thromboplastin Time 142.9 Seconds (22.3-36.8); Potassium 3.3 mmol/L (3.4-5.0); Sodium 136 mmol/L (137-145)
[2025-06-19 20:52] LABS: INR 11.8
[2025-06-19 21:09] LABS: Add Urine Microscopic? YES; Appearance Urine Cloudy (Clear); Glucose Urine UA Negative (Negative); Leukocyte Esterase Ur 1+ LEU/UL (Negative); Nitrate Urine Negative (Negative); Specific Grav Ur 1.020 (1.001-1.035)
[2025-06-19] MEDS: PHYTONADIONE 5 MG TABLET PO (21:26)
--- NOTE | 2025-06-19 21:37 | PC.NURSE ---
pt taken to CT in W/C by tech
--- NOTE | 2025-06-19 21:43 | PC.NURSE ---
Pt returned from CT
[2025-06-19 22:41] LABS: Hematocrit 38.5 % (42.0-52.0); Hemoglobin 13.1 g/dL (14.0-18.0)
[2025-06-19] MEDS: SODIUM CHLORIDE 0.9% IV 250 ML 30 ML IV CONT (22:49)
[2025-06-19 23:03] VITALS: BP 133/96; PULSE 82; RESP 16; TEMP 37.2; O2SAT 99
[2025-06-19 23:13] VITALS: BP 136/68; PULSE 74; RESP 18; TEMP 37.2; O2SAT 99
--- NOTE | 2025-06-19 23:17 | WPCEDHO ---
ED Hand Off Checklist All vitals saved:yes IV Site documented:yes All med administrations documented:yes Triage Note Triage Note pt presents to ED from PCP office 06/19/25 23:03 for elevated INR. Allergies No Known Allergies Allergy (Verified 06/19/25 12:41) Family History (Last Reviewed 06/19/25 @ 21:19 by Marcell Gomez MD) Mother Family history of type 2 diabetes mellitus Patient's mother is Sibling Hypertension Other Cerebrovascular accident Family history of malignant neoplasm Active Medications including assessments/comments Sodium Chloride (Normal Saline Iv) 250 mls @ 30 mls/hr IV CONT .[id number] STA Stop: 06/20/25 06:26 Last Admin: 06/19/25 22:49 Dose: 30 mls/hr Documented By: JAZZ Infusion/Titration Document 06/19/25 22:49 JAZZ (Rec: 06/19/25 22:49 WENCESLAOG [id number]) Intake IV Site Peripheral Access Left Antecubital Container Volume 250 Waste Amount 0 Dosing Infusion Rate 30 Cumulative Dose Not Applicable Increase/Decrease Started Elapsed Time Elapsed Time ( 0m minutes) Administered/Completed Medications Discontinued Medications Phytonadione (Phytonadione 5 Mg Tablet) 5 mg PO ONCE ONE Stop: 06/19/25 21:11 Last Admin: 06/19/25 21:26 Dose: 5 mg Documented By: JAZZ Notes 06/19/25 21:43 Nurse Note by Brit Clancy Pt returned from CT Initialized on 06/19/25 21:43 - END OF NOTE 06/19/25 21:37 Nurse Note by Brit Clancy pt taken to CT in W/C by tech Initialized on 06/19/25 21:37 - END OF NOTE Interventions/Assessments General Assessment Start: 06/19/25 17:07 Freq: Status: Active Protocol: Document 06/19/25 23:07 EZG (Rec: 06/19/25 23:08 EZG [id number]) GA Integumentary Assessment Left Chest Integumentary Bruises Symptoms Temperature Warm Skin Color Normal for Patient Moisture Moist Skin Turgor Normal IV / Saline Lock, Insert Start: 06/19/25 17:07 Freq: Status: Active Protocol: Document 06/19/25 22:38 EZG (Rec: 06/19/25 22:39 EZG [id number]) IV Assessment Peripheral Access Left Antecubital IV Catheter Access Initiated IV Insertion Date 06/19/25 IV Insertion Time 22:39 Catheter Gauge 20 IV Site Assessment WNL IV Care and WNL Maintenance Last Vital Signs Temperature 98.9 F 06/19/25 23:13 Pulse Rate 74 06/19/25 23:13 Respiratory Rate 18 06/19/25 23:13 Pulse Oximetry 99 06/19/25 23:13 Blood Pressure 136/68 06/19/25 23:13 Blood Pressure Mean 90 06/19/25 23:13 Blood Pressure Position Sitting 06/19/25 23:13 Oxygen Delivery Room Air 06/19/25 23:03 Weight 84.9 kg 06/19/25 23:03 Last Result - Abnormals Only RBC 4.18 M/mm3 (4.6-6.20) L 06/19/25 20:03 Hgb 13.1 g/dL (14.0-18.0) L 06/19/25 22:36 Hct 38.5 % (42.0-52.0) L 06/19/25 22:36 RDW 14.9 % (11.5-14.5) H 06/19/25 20:03 Plt Count 136 k/mm3 (150-375) L 06/19/25 20:03 [place] % (Auto) 9.5 % (2.6-8.5) H 06/19/25 20:03 [place] # (Auto) 0.9 K/mm3 (0.1-0.6) H 06/19/25 20:03 Abs Immat Gran (auto) 0.04 K/mm3 (0.00-0.031) H 06/19/25 20:03 PT 84.5 Seconds (11.1-14.7) H 06/19/25 20:03 INR 11.8 H* 06/19/25 20:03 APTT 142.9 Seconds (22.3-36.8) H 06/19/25 20:03 Sodium 136 mmol/L (137-145) L 06/19/25 20:03 Potassium 3.3 mmol/L (3.4-5.0) L 06/19/25 20:03 BUN 8 mg/dL (9-20) L 06/19/25 20:03 Glucose 127 mg/dL (65-110) H 06/19/25 20:03 Urine Appearance Cloudy (Clear) H 06/19/25 20:47 Urine Protein 2+ mg/dL (Negative) H 06/19/25 20:47 Urine Ketones Trace mg/dL (Negative) H 06/19/25 20:47 Ur Blood (Man) 3+ (Negative) H 06/19/25 20:47 Urine Bilirubin 1+ (Negative) H 06/19/25 20:47 Leukocyte Esterase Rfl 1+ LETY/UL (Negative) H 06/19/25 20:47 Urine RBC >100 /hpf (0-2) H 06/19/25 20:47 Most Recent Suicide Severity Rating Suicide Severity Rating NO RISK INDICATED 06/19/25 23:03
[2025-06-19 23:52] VITALS: BMI 25.0
[2025-06-20] VITALS (8 sets, daily range): BP systolic 118–132; BP diastolic 51–56; PULSE 64–73; RESP 14–18; TEMP 36.1–36.6; O2SAT 98–100; BMI 25.0
[2025-06-20] MEDS: SODIUM CHLORIDE 0.9% IV 250 ML 30 ML (01:25)
--- OUTSIDE RECORDS SUMMARY | 2025-06-20 02:27 | XMS_ITS | Clinical Summary ---
Author Organization [facility] Address [address] [place] [address] Care Team Providers Care Parts Fabricator Name Role Phone Carolyn Davis MD Primary Care Provider + Source Comments [facility],non-owned Affiliates and Associated Physician Practices is amultiple site organization consisting of ambulatory clinics and hospital sitesin [place], [place], [place] and [place]. This disclosure is being madepursuant to the Care Everywhere program and may not contain all information available regarding this patient. 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
[2025-06-20 06:33] LABS: Hematocrit 33.4 % (42.0-52.0); Hemoglobin 11.2 g/dL (14.0-18.0); Mean Corpuscular HGB Conc 33.5 g/dl (32-36); Mean Corpuscular Hemoglobin 29.2 pg (26-34); Mean Corpuscular Volume 87.2 fl (80-100); Platelet Count Result 121 k/mm3 (150-375); Red Blood Count 3.83 M/mm3 (4.6-6.20); White Blood Count 7.1 K/mm3 (4.5-10.0)
[2025-06-20 06:47] LABS: INR 2.9; Prothrombin Time 29.8 Seconds (11.1-14.7)
[2025-06-20 06:55] LABS: Anion Gap 5 mmol/L (4-12); Blood Urea Nitrogen 6 mg/dL (9-20); Calcium 8.6 mg/dL (8.4-10.2); Carbon Dioxide 25 mmol/L (22-30); Chloride 106 mmol/L (98-107); Estimated CRCL calculation 120 ml/min; Estimated Glomerular Filt Rate > 60; Glucose 133 mg/dL (65-110); Potassium 3.5 mmol/L (3.4-5.0); Sodium 136 mmol/L (137-145)
--- NOTE | 2025-06-20 07:37 | P.HP_ITS ---
H&P: HPI History of Present Illness Date/Time: 06/20/25 07:37 [facility] Past Medical History Medical History Paroxysmal A-fib Carotid stenosis Acute pain History of bipolar disorder TIA (transient ischemic attack) Alcohol abuse Colon cancer screening Weight gain Vitamin D deficiency Viral URI Tobacco abuse SVT (supraventricular tachycardia) Sebaceous cyst Psychophysiological insomnia Postural dizziness with presyncope Panic disorder Nicotine dependence, unspecified, uncomplicated Lesion of finger Infective tonsillitis Hyperlipidemia type III Hx of supraventricular tachycardia Groin ringworm Fear of heights Epidermal inclusion cyst Dysfunction of both eustachian tubes Disappearance and of family member Dietary counseling and surveillance (04/28/18) COPD exacerbation Complicated grieving Chest pain on exertion Atrial fibrillation with RVR Acute non-recurrent frontal sinusitis Acute maxillary sinusitis, unspecified Acute bacterial bronchitis Impingement syndrome involving patellar fat pad of left knee Left knee injury Medial meniscus tear Left knee pain Knee pain Sprain of left patella Arthritis of hand Alcohol abuse DJD of AC (acromioclavicular) joint Right shoulder pain Bicipital tendinitis Occipital subdural bleed Alcohol withdrawal seizure Grand mal seizure Seizure Diabetes mellitus, new onset Shoulder pain, right Shoulder arthritis Heart palpitations History of recent steroid use COVID-19 long hauler Oral pharyngeal candidiasis Cervical radiculopathy Aortic stenosis Elevated liver enzymes Screening for colon cancer Intertriginous candidiasis History of alcohol abuse Bipolar disorder with current episode depressed Effusion, right knee Pain of right calf Pain of right calf Tobacco dependence Major depressive disorder, recurrent severe without psychotic features Chronic insomnia Benign essential HTN Prediabetes Restless legs syndrome Obstructive sleep apnea Alcohol abuse Family History Family History Mother Family history of type 2 diabetes mellitus Patient's mother is Sibling Hypertension Other Cerebrovascular accident Family history of malignant neoplasm Social History Social History Social History: Smoking packs per day: 1 Smoking cigarettes per day: 20.0 Years smoked: 30 Smoking pack-years: 30.00 Smoking status: Current every day smoker Tobacco type: cigarettes Second hand tobacco smoke exposure: No Smoking end date: 03/03/24 Alcohol intake: former Substance use: current Substance use type: marijuana Last use: 06/19 Do You Feel Safe in your Home?: Yes Lack of Transportation: No Lack of Food: Never True Current Housing: I Have Housing Concerned About Future Housing: No Difficulty Paying Gas/Electric Bills: No Difficulty Paying for Meds: No Currently Unemployed: YES Education: Associate Degree Difficulty w/ Childcare or Family Care: No Living arrangements: with family Occupation/Education: occupation 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] Gender identity (if verbalized by the patient): Male Sexual Orientation (if Verbalized by the Patient): Straight or Heterosexual Spiritual care concerns: No Meds Home Medications and Allergies Home Medications ?Medication ?Instructions ?Recorded ?Confirmed ?Type aspirin 81 mg chewable tablet 81 mg PO DAILY 08/22/22 06/19/25 History warfarin 5 mg tablet 5 mg PO DAILY #30 tabs 03/1006/20/25 Rx diltiazem HCl 240 mg See Rx Instructions .Route 0 03/21/24 06/20/25 Rx capsule,extended release 24 hr .COMPLEX #90 caps bupropion HCl 150 mg tablet,12 hr 150 mg PO BID 06/19/25 History sustained-release quetiapine 50 mg tablet,extended See Rx Instructions . Route 08/01/24 06/20/25 Rx release 24 hr .COMPLEX #180 tabs rosuvastatin 40 mg tablet 40 mg PO DAILY #90 tabs 06/0 10/2506/20/25 Rx triamcinolone acetonide 0.5 % 1 applic topical BID #15 grams 04/20/25 06/20/25 Rx topical cream metoprolol tartrate 25 mg tablet See Rx Instructions . Route 05/19/25 06/20/25 Rx .COMPLEX #180 tabs ropinirole 4 mg tablet See Rx Instructions .Route 1 06/20/25 Rx .COMPLEX #180 tabs zolpidem 6.25 mg tablet,extended 6.25 mg PO QHS #30 ta bs 06/05/25 06/20/25 Rx release,multiphase Allergies Allergy/AdvReac Type Severity Reaction Status Date / Time No Known Allergies Allergy Verified 06/20/25 00:01 Vital Signs Vital Signs - 24 hr 06/19/25 17:07 06/19/25 20:08 06/19/25 23:03 Temperature 98.3 F 98.9 F Pulse Rate 82 72 82 Respiratory Rate 20 16 16 Blood Pressure 144/61 H 143/69 H 133/96 H Pulse Oximetry 98 98 99 Oxygen Delivery Room Air Room Air 06/19/25 23:13 06/20/25 01:37 06/20/25 01:59 Temperature 98.9 F 97.0 F L 97.0 F L Pulse Rate 74 65 73 Respiratory Rate 18 14 14 Blood Pressure 136/68 124/52 L 119/56 L Pulse Oximetry 99 100 100 Oxygen Delivery 06/20/25 02:00 06/20/25 02:59 06/20/25 03:59 Temperature 97.8 F 97.6 F 97.2 F L Pulse Rate 66 71 71 Respiratory Rate 18 16 16 Blood Pressure 118/53 L 123/51 L 130/53 L Pulse Oximetry 98 100 100 Oxygen Delivery H&P: Results Labs Labs: Short CBC 06/19/25 06/19/25 06/20/25 Range/Units 20:03 22:36 05:59 WBC 9.2 7.1 (4.5-10.0) K/mm3 Hgb 12.4 L 13.1 L 11.2 L (14.0-18.0) g/dL Hct 35.9 L 38.5 L 33.4 L (42.0-52.0) % Plt Count 136 L 121 L (150-375) k/mm3 BMP 06/19/25 06/20/25 20:03 05:59 Sodium 136 L 136 L Potassium 3.3 L 3.5 Chloride 105 106 Carbon Dioxide 24 25 BUN 8 L 6 L Creatinine 0.70 0.64 L Glucose 127 H 133 H Calcium 8.8 8.6 Urine 06/19/25 Range/Units 20:47 Urine Color Dark yellow (Yellow) Urine Appearance Cloudy H (Clear) Urine pH 5.5 (5.0-9.0) Ur Specific [place] 1.020 (1.001-1.035) Urine Protein 2+ H (Negative) mg/dL Urine Glucose (UA) Negative (Negative) mg/dL
[2025-06-20] MEDS: ROSUVASTATIN 20 MG TABLET 40 MG PO (08:39)
[2025-06-20] MEDS: buPROPion HCL SR (12 HR) 150 MG TAB PO (08:39)
[2025-06-20] MEDS: dilTIAZem HCL CD 240 MG CAP.24HR BY MOUTH (08:39)
[2025-06-20] MEDS: METOPROLOL TARTRATE 50 MG TAB PO (08:39)
--- NOTE | 2025-06-20 11:27 | P.SS_ITS ---
Same Day Admit/Disch: HPI History of Present Illness Chief complaint: Supratherapeutic INR, Pleural effusion Narrative: Wyatt Madden is a 59 year old male with past medical history of paroxysmal a-fib, TIA, COPD, SVT, seizures, DM type 2, HTN and aortic stenosis s/p mechanical aortic valve replacement. Pateint presented to the ER and stated he performed a home INR test and his machine said error or >8. Patient denies bleeding including BRBPR, melena, epistaxis, or coffee ground emesis. Patient did report his urine has been pink tinged. Patient reports his goal INR is between 2.5-3.5. Patient had outpatient labs prior to arrival that showed an INR of 10.1. Patient's INR in the ER was 11.8. Patient was given 5 mg PO vitamin K. In the ER it was noted that patient had a bruise on the left side of his chest and a CT was obtained which showed a larger pleural effusion on the right side. Patient was admitted for observation. [facility] Past Medical History Medical History Paroxysmal A-fib Carotid stenosis Acute pain History of bipolar disorder TIA (transient ischemic attack) Alcohol abuse Colon cancer screening Weight gain Vitamin D deficiency Viral URI Tobacco abuse SVT (supraventricular tachycardia) Sebaceous cyst Psychophysiological insomnia Postural dizziness with presyncope Panic disorder Nicotine dependence, unspecified, uncomplicated Lesion of finger Infective tonsillitis Hyperlipidemia type III Hx of supraventricular tachycardia Groin ringworm Fear of heights Epidermal inclusion cyst Dysfunction of both eustachian tubes Disappearance and of family member Dietary counseling and surveillance (04/28/18) COPD exacerbation Complicated grieving Chest pain on exertion Atrial fibrillation with RVR Acute non-recurrent frontal sinusitis Acute maxillary sinusitis, unspecified Acute bacterial bronchitis Impingement syndrome involving patellar fat pad of left knee Left knee injury Medial meniscus tear Left knee pain Knee pain Sprain of left patella Arthritis of hand Alcohol abuse DJD of AC (acromioclavicular) joint Right shoulder pain Bicipital tendinitis Occipital subdural bleed Alcohol withdrawal seizure Grand mal seizure Seizure Diabetes mellitus, new onset Shoulder pain, right Shoulder arthritis Heart palpitations History of recent steroid use COVID-19 long hauler Oral pharyngeal candidiasis Cervical radiculopathy Aortic stenosis Elevated liver enzymes Screening for colon cancer Intertriginous candidiasis History of alcohol abuse Bipolar disorder with current episode depressed Effusion, right knee Pain of right calf Pain of right calf Tobacco dependence Major depressive disorder, recurrent severe without psychotic features Chronic insomnia Benign essential HTN Prediabetes Restless legs syndrome Obstructive sleep apnea Alcohol abuse Family History Family History Mother Family history of type 2 diabetes mellitus Patient's mother is Sibling Hypertension Other Cerebrovascular accident Family history of malignant neoplasm Social History Social History Social History: Smoking packs per day: 1 Smoking cigarettes per day: 20.0 Years smoked: 30 Smoking pack-years: 30.00 Smoking status: Current every day smoker Tobacco type: cigarettes Second hand tobacco smoke exposure: No Smoking end date: 03/03/24 Alcohol intake: former Substance use: current Substance use type: marijuana Last use: 06/19 Lack of Transportation: No Lack of Food: Never True Current Housing: I Have Housing Concerned About Future Housing: No Difficulty Paying Gas/Electric Bills: No Difficulty Paying for Meds: No Currently Unemployed: YES Education: Associate Degree Difficulty w/ Childcare or Family Care: No Living arrangements: with family Occupation/Education: occupation 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 - [employer] Gender identity (if verbalized by the patient): Male Sexual Orientation (if Verbalized by the Patient): Straight or Heterosexual Spiritual care concerns: No Same Day Admit/Disch: Med Pre-admit Medications Home Medications ?Medication ?Instructions ?Recorded ?Confirmed ?Type aspirin 81 mg chewable tablet 81 mg PO DAILY 08/22/22 06/19/25 History warfarin 5 mg tablet 5 mg PO DAILY #30 tabs 03/1006/20/25 Rx diltiazem HCl 240 mg See Rx Instructions .Route 0 03/21/24 06/20/25 Rx capsule,extended release 24 hr .COMPLEX #90 caps bupropion HCl 150 mg tablet,12 hr 150 mg PO BID 06/19/25 History sustained-release quetiapine 50 mg tablet,extended See Rx Instructions . Route 08/01/24 06/20/25 Rx release 24 hr .COMPLEX #180 tabs triamcinolone acetonide 0.5 % 1 applic topical BID #15 grams 04/20/25 06/20/25 Rx topical cream metoprolol tartrate 25 mg tablet See Rx Instructions . Route 10/17/25 11/18/25 Rx .COMPLEX #180 tabs ropinirole 4 mg tablet See Rx Instructions .Route 1 06/20/25 Rx .COMPLEX #180 tabs zolpidem 6.25 mg tablet,extended 6.25 mg PO QHS #30 ta bs 06/05/25 06/20/25 Rx release,multiphase rosuvastatin 40 mg tablet 40 mg PO DAILY #90 tabs 06/04 03/27 Rx Review of Systems Review of Systems All systems reviewed & are unremarkable except as noted in HPI and below Exam Const: General: comfortable and no acute distress HENMT: Face/Nose/Sinus: Normal nares present Mouth: Yes moist mucous membranes Eyes: General: appearance normal, both eyes and all related structures Sclera: sclerae normal Neck: Neck: supple Resp: Effort & Inspection: normal respiratory effort Auscultation: clear to auscultation bilaterally Cardio: Rate: regular rate Rhythm: regular rhythm GI: GI Palp: Yes Soft to palpation Auscultation: normal bowel sounds Skin: General skin exam: normal color and no rashes or lesions noted Neuro: General: gait normal Speech: normal speech Motor exam (neuro): 5/5 motor strength present throughout Sensory Exam: normal sensation Extrem: General: normal to inspection Psych: Mental Status: mental status grossly normal Affect: normal affect DS: Data Data Completed and Pending Labs on day of discharge: Labs from last 24 hours 06/20/25 06/19/25 06/19/25 05:59 22:36 20:47 WBC 7.1 RBC 3.83 L Hgb 11.2 L 13.1 L Hct 33.4 L 38.5 L MCV 87.2 MCH 29.2 MCHC 33.5 RDW 14.9 H Plt Count 121 L MPV 9.9 Immature Gran % (Auto) Neut % (Auto) Lymph % (Auto) [place] % (Auto) Eos % (Auto) Baso % (Auto) Lymph # (Auto) [place] # (Auto) Eos # (Auto) Baso # (Auto) Abs Immat Gran (auto) Absolute Neuts (auto) Absolute Nucleated RBC Nucleated RBC % PT 29.8 H D INR 2.9 APTT Sodium 136 L Potassium 3.5 Chloride 106 Carbon Dioxide 25 Anion Gap 5 BUN 6 L Creatinine 0.64 L Estim Creat Clear Calc 120 Estimated GFR > 60 Glucose 133 H Calcium 8.6 Urine Color Dark yellow Urine Appearance Cloudy H Urine pH 5.5 Ur Specific [place] 1.020 Urine Protein 2+ H Urine Glucose (UA) Negative Urine Ketones Trace H Ur Blood (Man) 3+ H Urine Nitrate Negative Urine Bilirubin 1+ H Urine Urobilinogen 1.0 Leukocyte Esterase Rfl 1+ H Urine RBC >100 H Urine WBC 0-5 Ur Squamous Epith Cells Occasional Urine Bacteria None seen Urine Casts 3-5 Blood Type B Positive Antibody Screen Negative 06/19/25 20:03 WBC 9.2 RBC 4.18 L Hgb 12.4 L Hct 35.9 L MCV 85.9 MCH 29.7 MCHC 34.5 RDW 14.9 H Plt Count 136 L MPV 9.3 Immature Gran % (Auto) 0.4 Neut % (Auto) 61.9 Lymph % (Auto) 26.5 [place] % (Auto) 9.5 H Eos % (Auto) 1.4 Baso % (Auto) 0.3 Lymph # (Auto) 2.44 [place] # (Auto) 0.9 H Eos # (Auto) 0.1 Baso # (Auto) 0.0 Abs Immat Gran (auto) 0.04 H Absolute Neuts (auto) 5.7 Absolute Nucleated RBC 0.000 Nucleated RBC % 0.0 PT 84.5 H INR 11.8 H* APTT 142.9 H Sodium 136 L Potassium 3.3 L Chloride 105 Carbon Dioxide 24 Anion Gap 7 BUN 8 L Creatinine 0.70 Estim Creat Clear Calc 110 Estimated GFR > 60 Glucose 127 H Calcium 8.8 Urine Color Urine Appearance Urine pH Ur Specific [place] Urine Protein Urine Glucose (UA) Urine Ketones Ur Blood (Man) Urine Nitrate Urine Bilirubin Urine Urobilinogen Leukocyte Esterase Rfl Urine RBC Urine WBC Ur Squamous Epith Cells Urine Bacteria Urine Casts Blood Type Antibody Screen Imaging Radiologist's impression: Ordering Physician: Evin Gomez MD Date of Service: 06/19/25 Procedure(s): CT chest abdomen pelvis wo con Accession Number(s): [id number] cc: Tyron Maya MD; Evin Gomez MD; Alexey Buck DO~ ADDENDUM ADDENDUM: Request is made to compare pleural effusion with study from 07/12/2024. Small right pleural effusion does not appear significantly changed in size since the prior study. 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 Elevated INR. No history of trauma. TECHNIQUE: CT was performed through the chest, abdomen and pelvis without oral contrast and IV contrast. Radiation dose, 514 and mgy cm.. COMPARISON: CT chest 07/12/2024. FINDINGS: Postoperative changes of chest with aortic valve and allograft placement is noted. Cardiomegaly is noted. Good sized pleural effusion is noted on the right side. No evidence of pericardial effusion. Below the diaphragm, no focal lesions of the liver and spleen. The gallbladder, pancreas, kidneys do not show acute findings. No evidence small bowel obstruction. No evidence of free fluid in the peritoneal cavity. No acute findings thoracic spine, lumbar spine and pelvic bones. IMPRESSION: 1. Postsurgical changes of chest as described above with cardiomegaly and right- sided pleural effusion. Emphysematous lungs. 2. No acute findings noted in the abdomen and pelvis. 3. Overall visualization is limited due to lack of IV contrast especially to evaluate the vascular structures and solid viscera.. Reviewed, dictated and finalized at location T. RINARY LABORATORY TECHNICIAN DS: Summary Hospital Course Reason for hospitalization: elevated INR Hospital Course: supratherapeutic INR -at home patient said his home INR machine stated error or >8 -In the ER repeat INR was 11.8 -s/p 5 mg vitamin k oral -patient denied BRBPR, melena, epistaxis or coffee ground emesis -patient did endorse pink tinged urine, UA positive for microscopic hematuria -patient has some bruising to the left chest and on his arms -repeat INR was 2.9 this AM -patient reports no diet changes but does report he drank some non-alcoholic beverages which he has never done and maybe this affected his INR, discussed with patient to avoid these non-alcoholic beverages and alcoholic beverages -patient will resume his home warfarin dosing on discharge and check his INR with his home machine on Thursday06/23/25 and communicate with his provider who manages his warfarin if the result is out of the therapeutic range (2.5-3.5). patient instructed to monitor for any signs of bleeding (dark stools, coffee ground emesis, blood in urine) and to check his INR if he notices any of these. Pleural effusion -s/p CT Chest which showed a larger right pleural effusion -due to patient's elevated INR he was admitted for observation -I called radiology and asked for the size of the pleural effusion to be compared to prior studies as patient has a known chronic right sided pleural effusion, once compared it was the same size with no noted changes -patient denies dyspnea, is on room air tobacco dependence due to cigarettes -encouraged smoking cessation paroxysmal a-fib -on warfarin for anticoagulation -continue diltiazem and metoprolol Time Spent with Patient Time attestation: Total time spent providing and/or coordinating discharge services: 25 Minutes DS: Admitting Diagnosis Discharge Date 06/20/2025 Admitting Diagnosis supratherapeutic INR Pleural effusion tobacco dependence due to cigarettes paroxysmal a-fib DS: Discharge Diagnosis Discharge Diagnosis (1) Supratherapeutic INR: Code(s): R79.1 - Abnormal coagulation profile Status: Acute (2) Pleural effusion: Code(s): J90 - Pleural effusion, not elsewhere classified Status: Acute (3) Tobacco dependence due to cigarettes: Code(s): F17.210 - Nicotine dependence, cigarettes, uncomplicated Status: Acute (4) Paroxysmal A-fib: Code(s): I48.0 - Paroxysmal atrial fibrillation Status: Acute Discharge Plan Discharge Attending physician on discharge: Nathaniel Rosario Consulting providers: Eve Ramirez; Josefina Gordon; Alok Galindo Paul Discharging Clinician: Josefina Gordon Patient Disposition: Home Activity: as tolerated Diet: as tolerated Discharge Instructions: please resume your home dose of warfarin and check your INR at home on Thursday06/23/2025. Please communicate with your provider who manages your warfarin dosing if it is out of the therapeutic range of 2.5-3.5. Please monitor for any signs of bleeding (dark stools, coffee ground emesis, blood in urine or dark urine) and check your INR or have your INR checked by a medical professional. Patient Instructions: Antibiotic Form, Warfarin (By mouth), How to Stop Smoking (GEN) Patient Language: [place] Stand Alone Forms: General Discharge Information Follow-up/Referrals: Tyron Maya MD [Primary Care Provider, [facility]] Referral Note: please call for an appointment to be seen within 1-2 weeks of discharge. You can ask your PCP to discuss your chronic appearing pleural effusion (fluid filled area in the lung) with you. Discharge Medications: Continued aspirin 81 mg Tablet,Chewable 81 mg PO DAILY bupropion HCl 150 mg tablet sustained-release 12 hr 150 mg PO BID triamcinolone acetonide 0.5 % cream 1 applic topical BID Qty: 15 0RF warfarin 5 mg tablet 5 mg PO DAILY Qty: 30 0RF diltiazem HCl 240 mg capsule,extended release 24hr See Rx Instructions .ROUTE .COMPLEX Qty: 90 0RF Dose Instruction: TAKE 1 CAPSULE(240 MG) BY MOUTH DAILY Rx Instructions: TAKE 1 CAPSULE(240 MG) BY MOUTH DAILY quetiapine 50 mg tablet extended release 24 hr See Rx Instructions .ROUTE .COMPLEX Qty: 180 1RF Dose Instruction: TAKE 1 TABLET BY MOUTH TWICE DAILY Rx Instructions: TAKE 1 TABLET BY MOUTH TWICE DAILY metoprolol tartrate 25 mg tablet See Rx Instructions .ROUTE .COMPLEX Qty: 180 1RF Dose Instruction: TAKE 2 TABLETS BY MOUTH TWICE DAILY Rx Instructions: TAKE 2 TABLETS BY MOUTH TWICE DAILY ropinirole 4 mg tablet See Rx Instructions .ROUTE .COMPLEX Qty: 180 2RF Dose Instruction: TAKE 1 TABLET BY MOUTH THREE TIMES DAILY Rx Instructions: TAKE 1 TABLET BY MOUTH THREE TIMES DAILY zolpidem 6.25 mg tablet,ext release multiphase 6.25 mg PO QHS Qty: 30 0RF No Action rosuvastatin 40 mg tablet 40 mg PO DAILY Qty: 90 1RF Date of admission: 06/19/25 22:08 Primary Care Provider: Tyron Maya Admitting Provider: Nusrat Buck Attending physician on admission: Nathaniel Rosario Condition: Stable Quality VTE Prophylaxis VTE prophylaxis: mechanical ordered
== END 2025-06-20 11:55 | disposition home or self-care (01) ==
LOC: ANHED 22:10 → ANH3MEDSUR 06-20 00:25
PROVIDERS: Nurse Practitioner; Physician Assistant; Admitting Provider Student in an Organized Health Care Education/Training Program; Emergency Provider Emergency Medicine; PCP Family Medicine; Visit Provider General Practice
DX: R79.1 Abnormal coagulation profile (principal); J90 Pleural effusion, not elsewhere classified; I48.0 Paroxysmal atrial fibrillation; I65.29 Occlusion and stenosis of unspecified carotid artery; I10 Essential (primary) hypertension; I35.0 Nonrheumatic aortic (valve) stenosis; E78.5 Hyperlipidemia, unspecified; G47.33 Obstructive sleep apnea (adult) (pediatric); G47.00 Insomnia, unspecified; J44.1 Chronic obstructive pulmonary disease with (acute) exacerbation; M19.019 Primary osteoarthritis, unspecified shoulder; E11.9 Type 2 diabetes mellitus without complications; E55.9 Vitamin D deficiency, unspecified; F41.0 Panic disorder [episodic paroxysmal anxiety]; F17.210 Nicotine dependence, cigarettes, uncomplicated; F12.90 Cannabis use, unspecified, uncomplicated; F10.21 Alcohol dependence, in remission; Z95.2 Presence of prosthetic heart valve; Z79.82 Long term (current) use of aspirin; Z79.01 Long term (current) use of anticoagulants; Z79.52 Long term (current) use of systemic steroids; Z86.69 Personal history of other diseases of the nervous system and sense organs; Z86.59 Personal history of other mental and behavioral disorders; Z86.73 Personal history of transient ischemic attack (TIA), and cerebral infarction without residual deficits; Z86.79 Personal history of other diseases of the circulatory system; Z82.49 Family history of ischemic heart disease and other diseases of the circulatory system; Z83.3 Family history of diabetes mellitus; Z80.9 Family history of malignant neoplasm, unspecified; Z82.3 Family history of stroke
CPT/HCPCS: 36415; 36430; 71250; 74176; 80048; 81001; 85014; 85018; 85025; 85027; 85610; 85730; 86850; 86900; 86901; 87086; 96360; 99285; A9270; G0378; J7050; P9017